=== PATIENT | female | born 1970 | race African-American/Black ===

== ENCOUNTER 2018-12-03 06:22 | Emergency (ER) | payer OTHER ==
[2018-12-03 06:34] VITALS: RESP 18; TEMP 98.1
[2018-12-03] MEDS ORDERED: HYDROmorphone 1 MG/ML 1 ML SYRINGE IVP STA (07:13)
[2018-12-03] MEDS ORDERED: SODIUM CHLORIDE 0.9% 500 ML 500 ML IV ONE ×2 (07:15→08:08)
[2018-12-03 07:33] LABS: Basophils % (A) 0 %; Eosinophils # (A) 0.3 k/uL (0-0.7); Eosinophils % (A) 2 %; HCT 35.8 % (34.0-46.0); HGB 12.4 gm/dL (11.4-16.0); Lymphocytes # (A) 3.1 k/uL (1.0-4.8); Lymphocytes % (A) 26 %; MCH 27.5 pg (25.0-35.0); MCHC 34.6 g/dL (31.0-37.0); MCV 79.5 fL (80.0-100.0); Mean Platelet Volume 7.4; Monocytes # (A) 0.5 k/uL (0-1.0); Monocytes % (A) 4 %; Neutrophils # (A) 7.9 k/uL (1.3-7.7); Neutrophils % (A) 65 %; Platelet Count 408 k/uL (150-450); RBC 4.51 m/uL (3.80-5.40); RDW 15.2 % (11.5-15.5); WBC 12.1 k/uL (3.8-10.6)
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
[2018-12-03] MEDS ORDERED: HEPARIN SODIUM,PORCINE 5,000 UNIT/ML 1 ML VIAL IV PRN (07:48)
[2018-12-03] MEDS ORDERED: HEPARIN SODIUM,PORCINE 5,000 UNIT/ML 1 ML VIAL IV ONE (07:48)
[2018-12-03 07:50] LABS: Calcium 9.1 mg/dL (8.4-10.2); Total Bilirubin 0.5 mg/dL (0.2-1.3); Total Protein 6.8 g/dL (6.3-8.2)
[2018-12-03 07:59] LABS: Potassium 4.3 mmol/L (3.5-5.1)
[2018-12-03] MEDS ORDERED: HEPARIN SOD,PORK IN 0.45% NACL 25,000 UNIT in 0.45% NACL 1 250ML.BAG IV SCH (08:00)
--- NOTE | 2018-12-03 08:04 | XR ---
EXAMINATION TYPE: XR ankle complete LT DATE OF EXAM: 12/03/2018 CLINICAL HISTORY: Left ankle pain after a fall TECHNIQUE: Frontal, lateral and oblique images of the left ankle are obtained. COMPARISON: None. FINDINGS: There is no acute fracture/dislocation evident in the left ankle. There is a very small p lantar heel spur. The ankle mortise appears within normal limits. The overlying soft tissue appears unremarkable. IMPRESSION: There is no acute fracture or dislocation in the left ankle.
[2018-12-03 08:10] LABS: INR 0.9 (<1.2); Partial Thromboplastin Time 25.7 sec (22.0-30.0); Prothrombin Time 10.2 sec (9.0-12.0)
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
--- NOTE | 2018-12-03 09:27 | CT ---
EXAMINATION TYPE: CT angio tho/abd W Run Off DATE OF EXAM: 12/03/2018 COMPARISON: HISTORY: Pain/pulselss left leg CT DLP: 1921.80 mGycm Automated exposure control for dose reduction was used. CONTRAST: CT scan of the abdomen pelvis is performed without and with IV Contrast, patient injected with 125 mL of Isovue 370. FINDINGS- Changes of thyroid nodule on the right noted. Lungs are clear. No pleural effusion. Subsegmental line ar changes left upper lobe most typical of atelectasis. Sternotomy wires are noted. Motion artifact limits evaluation the aortic root. Caliber of the visualized aorta is within normal l imits. Visualized portions of the pulmonary arteries enhance normally. Within the upper abdomen there is atherosclerotic change of the abdominal aorta. There appears to be ectasia measuring 2.9 cm of the infrarenal abdominal aortic aorta with eccentric atherosclerotic plaq ue. Suggestion of bilateral iliac stents with occlusion of the left common iliac artery stent. There is m inimal reconstitution of the deep femoral artery on the left. Superficial femoral artery is not seen to be definitively reconstituted. There is reconstitution of portions of the left popliteal artery an d tibioperoneal trunk. Anterior tibial artery appears to occlude proximally. Peroneal and posterior t ibial arteries are diminutive in size and seen only to the level of the mid calf. Diffuse mild athero sclerotic changes are seen within the vasculature. On the right popliteal artery appears to contain stent or graft appears to be patent. Posterior tibia l artery and tibioperoneal trunk and peroneal artery are patent but diminutive. Anterior tibial arter y occludes proximally. Peroneal and posterior tibial arteries are seen to the level of the distal melvina f with the posterior tibial artery seen filling calcaneal branches of the foot. Right common iliac st ent appears to be patent. There is multifocal diffuse atherosclerotic changes with no definite signif icant stenosis. Renal arteries are patent. Visualized portions of the celiac axis and SMA are patent. Bowel gas pattern nonspecific. Bladder has a normal appearance. There is soft tissue mass in right ab domen. This should be correlated with pelvic ultrasound to assess for ovarian mass and measures 5.2 c m. There is diverticulosis of the colon. Findings discussed with ER physician. IMPRESSION- 1. There is occlusion of the left common iliac stent with reconstitution at the level of the deep fem oral and popliteal arteries. There is subsequent lack of visualization of the trifurcation vessels be low the level of the left mid calf. Dedicated angiogram recommended. 2. 5 cm density in the pelvis extending the right could potentially be related to the ovary or uterus . Based on the phase of imaging is difficult to determine. Recommend ultrasound to exclude a pelvic m ass. 3. Vague enhancement of the spleen measuring 1.9 cm. This may be related to phase of imaging. Reduced enhancement could be seen with other etiologies including small infarction, space-occupying lesion o r contusion. No perisplenic fluid collection seen. Finding may be secondary to phase of imaging and s hould be correlated clinically and with ultrasound as warranted.
[2018-12-03] MEDS ORDERED: SODIUM CHLORIDE 0.9% 1,000 ML IV SCH (09:30)
[2018-12-03 09:48] VITALS: BP 169/85; PULSE 85
== END 2018-12-03 10:10 | disposition other institution (70) ==
LOC: EC 06:22
DX: I99.8 Other disorder of circulatory system (principal); I74.5 Embolism and thrombosis of iliac artery; E11.9 Type 2 diabetes mellitus without complications; I10 Essential (primary) hypertension; I25.2 Old myocardial infarction; I73.9 Peripheral vascular disease, unspecified; F17.200 Nicotine dependence, unspecified, uncomplicated; Z86.73 Personal history of transient ischemic attack (TIA), and cerebral infarction without residual deficits; Z95.810 Presence of automatic (implantable) cardiac defibrillator; Z95.1 Presence of aortocoronary bypass graft; Z95.818 Presence of other cardiac implants and grafts; Z95.820 Peripheral vascular angioplasty status with implants and grafts; Z79.82 Long term (current) use of aspirin; Z79.02 Long term (current) use of antithrombotics/antiplatelets; Z79.4 Long term (current) use of insulin; Z79.899 Other long term (current) drug therapy; Z88.1 Allergy status to other antibiotic agents; Z88.2 Allergy status to sulfonamides
CPT/HCPCS: 99291; 96365; 96375; 96376; 96361 ×2; 36415; 80053; 83605; 85025; 85610; 85730; 73610; 93971; 75635; 71275; J1644 ×2; J1170; Q9967

== ENCOUNTER 2019-04-21 10:08 | Inpatient (IN) | payer MEDICARE, OTHER ==
[2019-04-21] MEDS ORDERED: IPRATROPIUM-ALBUTEROL 3 ML NEB INHALATION PRN (11:26)
[2019-04-21] MEDS: PANTOPRAZOLE 40 MG/10 ML VIAL IVP SCH (11:27)
[2019-04-21] MEDS ORDERED: ONDANSETRON 4 MG/2 ML VIAL IVP PRN (11:28)
[2019-04-21] MEDS ORDERED: MELATONIN 3 MG TABLET PO PRN (11:28)
[2019-04-21] MEDS ORDERED: DOCUSATE 100 MG CAP PO PRN (11:28)
[2019-04-21] MEDS ORDERED: NALOXONE 0.4 MG/ML 1 ML VIAL IV PRN (11:28)
[2019-04-21] MEDS ORDERED: ACETAMINOPHEN TAB 325 MG TAB PO PRN (11:28)
[2019-04-21] MEDS ORDERED: IBUPROFEN 400 MG TAB PO PRN (11:28)
[2019-04-21] MEDS ORDERED: MAG HYDROX/AL HYDROX/SIMETH 30 ML CUP PO PRN (11:28)
[2019-04-21 12:06] LABS: Glucose,Whole Blood 319 mg/dL (75-99)
[2019-04-21] MEDS: IPRATROPIUM-ALBUTEROL 3 ML NEB INHALATION SCH ×3 (12:09→19:34)
[2019-04-21] MEDS: HEPARIN SODIUM,PORCINE 5,000 UNIT/ML 1 ML VIAL SQ SCH ×2 (12:20→21:26)
[2019-04-21] MEDS: predniSONE 20 MG TAB PO SCH (12:21)
[2019-04-21] MEDS: NICOTINE 21MG/24HR PATCH TRANSDERM SCH (12:21)
[2019-04-21] MEDS: SODIUM CHLORIDE 0.9% 500 ML 500 ML IV SCH (12:21)
[2019-04-21] MEDS: INSULIN ASPART (NovoLOG) 100 UNIT/ML VIAL SQ SCH ×4 (12:21→21:25)
[2019-04-21] MEDS: hydrALAZINE HCL 50 MG TAB PO SCH ×2 (15:09→21:23)
[2019-04-21] MEDS: ISOSORBIDE MONONITRATE ER 30 MG TAB.ER.24H PO SCH (15:09)
[2019-04-21] MEDS: CLOPIDOGREL 75 MG TAB PO SCH (15:09)
[2019-04-21] MEDS: HYDROcodone/APAP 5-325MG 1 EACH TAB PO PRN (15:10)
[2019-04-21 16:57] LABS: Glucose,Whole Blood 264 mg/dL (75-99)
[2019-04-21] MEDS: CARVEDILOL 12.5 MG TAB PO SCH (17:51)
[2019-04-21 20:46] LABS: Glucose,Whole Blood 277 mg/dL (75-99)
[2019-04-21] MEDS: ATORVASTATIN 10 MG TAB PO SCH ×2 (21:23→21:45)
[2019-04-21] MEDS: FUROSEMIDE 40 MG TAB PO SCH (21:23)
[2019-04-21] MEDS: PREGABALIN 75 MG CAP PO SCH (21:23)
[2019-04-21] MEDS: INSULIN DETEMIR (LEVEMIR) 100 UNIT/ML SYR SQ SCH (21:25)
[2019-04-21] MEDS: DOCUSATE 100 MG CAP PO SCH ×2 (21:26→21:32)
[2019-04-22 06:21] LABS: Glucose,Whole Blood 456 mg/dL (75-99)
[2019-04-22] MEDS: CARVEDILOL 12.5 MG TAB PO SCH ×2 (06:36→18:30)
[2019-04-22] MEDS: HYDROcodone/APAP 5-325MG 1 EACH TAB PO PRN ×3 (06:36→21:36)
[2019-04-22] MEDS: INSULIN ASPART (NovoLOG) 100 UNIT/ML VIAL SQ SCH ×7 (06:36→21:31)
[2019-04-22] MEDS: IPRATROPIUM-ALBUTEROL 3 ML NEB INHALATION SCH ×3 (07:07→15:19)
[2019-04-22 07:17] LABS: Anisocytosis Slight; Basophils % (A) 0 %; Eosinophils # (A) 0.1 k/uL (0-0.7); Eosinophils % (A) 1 %; Lymphocytes # (A) 1.2 k/uL (1.0-4.8); Lymphocytes % (A) 10 %; MCHC 32.3 g/dL (31.0-37.0); MCV 77.3 fL (80.0-100.0); Mean Platelet Volume 8.7; Microcytosis Slight; Monocytes % (A) 8 %; Neutrophils # (A) 10.4 k/uL (1.3-7.7); Neutrophils % (A) 81 %; Platelet Count 291 k/uL (150-450); RBC 4.01 m/uL (3.80-5.40); RDW 18.4 % (11.5-15.5); WBC 12.8 k/uL (3.8-10.6)
[2019-04-22 07:34] LABS: Calcium 8.3 mg/dL (8.4-10.2); Potassium 4.4 mmol/L (3.5-5.1)
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
[2019-04-22] MEDS ORDERED: FUROSEMIDE 10 MG/ML 4 ML VIAL IV STA (09:41)
[2019-04-22] MEDS: PANTOPRAZOLE 40 MG/10 ML VIAL IVP SCH (11:07)
[2019-04-22] MEDS: predniSONE 20 MG TAB PO SCH (11:07)
[2019-04-22] MEDS: ISOSORBIDE MONONITRATE ER 30 MG TAB.ER.24H PO SCH (11:08)
[2019-04-22] MEDS: CLOPIDOGREL 75 MG TAB PO SCH (11:08)
[2019-04-22] MEDS: FUROSEMIDE 40 MG TAB PO SCH ×2 (11:08→20:41)
[2019-04-22] MEDS: hydrALAZINE HCL 50 MG TAB PO SCH ×4 (11:08→20:42)
[2019-04-22] MEDS: HEPARIN SODIUM,PORCINE 5,000 UNIT/ML 1 ML VIAL SQ SCH ×2 (11:08→20:41)
[2019-04-22] MEDS: PREGABALIN 75 MG CAP PO SCH ×2 (11:08→20:42)
[2019-04-22] MEDS: NICOTINE 21MG/24HR PATCH TRANSDERM SCH (11:10)
[2019-04-22] MEDS: DOCUSATE 100 MG CAP PO SCH ×2 (11:11→20:41)
[2019-04-22] MEDS ORDERED: HYDROcodone/APAP 5-325MG 1 EACH TAB PO PRN (11:47)
[2019-04-22 11:58] LABS: Glucose,Whole Blood 291 mg/dL (75-99)
--- NOTE | 2019-04-22 12:05 | XR ---
EXAMINATION TYPE: XR chest 2V DATE OF EXAM: 04/22/2019 COMPARISON: 04/13/2019 HISTORY: Shortness of breath TECHNIQUE: Frontal and lateral views of the chest are obtained. FINDINGS: Scattered senescent parenchymal changes noted. Mild increased density right medial lung base may reflect developing infiltrate. Small right-sided ef fusion noted. Heart size is stable. Mediastinal structures are stable and grossly unremarkable. No evidence for hilar prominence. Degenerative changes dorsal spine. IMPRESSION: 1. Mild increased density right medial lung base may reflect developing infiltrate. Small right-sided effusion noted.
[2019-04-22] MEDS: SODIUM CHLORIDE 0.9% 500 ML 500 ML IV SCH (12:56)
[2019-04-22] MEDS: LOSARTAN 25 MG TAB PO SCH (12:57)
--- NOTE | 2019-04-22 17:09 | HP ---
HISTORY AND PHYSICAL Dr. Lin Segura is covering for Dr. Pavel Velasquez. DATE OF SERVICE: 04/22/2019 HISTORY OF PRESENT ILLNESS: Patient is a 49-year-old female who was just discharged home from the hospital yesterday. She said that she talked to her primary care physician, Dr. Velasquez with complaints of both of her feet being extremely painful as well as both legs. She said she could not go up the stairs at her friend's house without extreme pain. Patient also with lower extremity swelling. She was sent back to be admitted to the hospital by Dr. Velasquez. PAST MEDICAL HISTORY: Past medical history is significant for: 1. Asthma. 2. CVA, TIA. 3. Diabetes mellitus. 4. DVT. 5. Hyperlipidemia. 6. Hypertension. 7. Myocardial infarction. 8. Pneumonia. 9. Anemia. 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 11.Lupus. 12.Bilateral lower extremity claudication. PAST SURGICAL HISTORY: Past surgical history is significant for: 1. PTCA. 2. CABG. 3. Tubal ligation. 4. D&C. ALLERGIES: ALLERGIES INCLUDE: 1. KEFLEX. 2. ZOCOR. 3. BACTRIM. MEDICATIONS: Medications patient is on at home include: 1. Prednisone, tapering dose. 2. Hydralazine 50 mg p.o. t.i.d. 3. Lyrica 150 mg p.o. b.i.d. 4. Protonix 40 mg p.o. before breakfast. 5. Imdur 30 mg p.o. daily. 6. DuoNeb via nebulizer q.i.d. 7. Basaglar 25 units subcutaneously at bedtime. 8. NovoLog 15 units subcutaneously t.i.d. before meals. 9. [place] 5/325 one tablet p.o. b.i.d. p.r.n. 10.Lasix 40 mg p.o. b.i.d. 11.Plavix 75 mg p.o. daily. 12.Coreg 12.5 mg p.o. b.i.d. 13.Lipitor 10 mg p.o. daily. FAMILY HISTORY: Patient's mother with history of asthma and cancer. Father with history of an [place]. SOCIAL HISTORY: Patient does have a history of smoking 5-10 cigarettes a day. States she quit a few months ago. Denies any alcohol. Denies any illicit drug use. REVIEW OF SYSTEMS: CONSTITUTIONAL: Positive for chills. Negative for any fever. HEENT: Positive for headache. Negative for acute visual changes. Denies any sore throat or difficulty swallowing. Denies any difficulty hearing. RESPIRATORY: Positive for occasional shortness of breath, more on exertion. Denies any cough. CARDIOVASCULAR: Negative for any chest pain, although patient does state she has a history of angina. GI: Negative for abdominal pain, nausea, vomiting, diarrhea or constipation. : Negative for dysuria. Negative for hematuria. ENDOCRINE: Positive for diabetes mellitus. No thyroid history. NEUROLOGIC: Positive for history of CVAs, TIAs. Denies any history of seizures. MUSCULOSKELETAL: Positive for fibromyalgia. PSYCHIATRIC: Positive for anxiety and depression. PHYSICAL EXAMINATION: GENERAL: Pleasant female who is seen sitting up in chair, awake, alert, comfortable at this time. VITAL SIGNS: Temperature 98.5, heart rate 88, respiratory rate 17, blood pressure 177/79. Oxygen saturation is 97% on room air. HEENT. Head is normocephalic, atraumatic. Pupils equal, round, reactive to light. Ears and nose: No discharge is noted. Mouth with moist mucous membranes. Mallampati is class IV. NECK: Supple. Trachea is midline. No lymphadenopathy. HEART: S1 and S2 are heard. Not tachycardic. LUNGS: Sounds are diminished. No wheezes or rales. ABDOMEN: Soft. Bowel sounds are positive. EXTREMITIES: One plus edema bilaterally. Patient does have a wound on the lateral aspect of her left foot about the size of a dime. NEUROLOGIC: Patient is awake, alert, oriented. LABS: White count is 12.8, hemoglobin 10.0, hematocrit 31.0 with 291,000 platelets. Sodium is 132, potassium 4.4, chloride 103. CO2 is 25. Anion gap is 4. BUN is 58, creatinine 1.65. Glucose is 486, calcium 8.3. Troponins are elevated at 0.043. Chest x-ray shows mild increased density, right medial lung base; may reflect developing infiltrate. Small right-sided effusion noted. IMPRESSION: 1. Severe lower extremity pain and swelling. 2. Peripheral arterial disease. 3. History of coronary artery disease, status post coronary artery bypass grafting. 4. Hypertension. 5. Hyperlipidemia. 6. Anxiety. 7. Diabetes mellitus, uncontrolled. 8. Homeless. 9. Anemia. 10.Acute on chronic renal insufficiency. 11.Elevated troponins. 12.Wound on the left foot. PLAN: Home medications have been reordered. Will decrease oral prednisone. IV fluids at O. GI and DVT prophylaxis. Bronchodilators p.r.n. per patient request. Cardiology recommendations. We are covering for Dr. Pavel Velasquez. MMODL / ELSYN: [id number] / VIMAL
[2019-04-22 17:22] LABS: Glucose,Whole Blood 135 mg/dL (75-99)
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
[2019-04-22] MEDS: ATORVASTATIN 10 MG TAB PO SCH (20:43)
[2019-04-22 21:23] LABS: Glucose,Whole Blood 202 mg/dL (75-99)
[2019-04-22] MEDS: INSULIN DETEMIR (LEVEMIR) 100 UNIT/ML SYR SQ SCH (21:32)
[2019-04-23 06:50] LABS: Glucose,Whole Blood 247 mg/dL (75-99)
[2019-04-23] MEDS: CARVEDILOL 12.5 MG TAB PO SCH ×2 (06:51→17:22)
[2019-04-23] MEDS: INSULIN ASPART (NovoLOG) 100 UNIT/ML VIAL SQ SCH ×7 (07:27→21:25)
[2019-04-23] MEDS ORDERED: PANTOPRAZOLE 40 MG TABLET PO SCH (07:30)
[2019-04-23 08:02] LABS: Calcium 8.6 mg/dL (8.4-10.2); Potassium 4.8 mmol/L (3.5-5.1)
[2019-04-23] MEDS: NICOTINE 21MG/24HR PATCH TRANSDERM SCH (08:03)
[2019-04-23] MEDS: DOCUSATE 100 MG CAP PO SCH ×2 (08:03→21:24)
[2019-04-23] MEDS: hydrALAZINE HCL 50 MG TAB PO SCH ×3 (08:04→21:24)
[2019-04-23] MEDS: FUROSEMIDE 40 MG TAB PO SCH ×2 (08:04→21:24)
[2019-04-23] MEDS: CLOPIDOGREL 75 MG TAB PO SCH (08:04)
[2019-04-23] MEDS: ISOSORBIDE MONONITRATE ER 30 MG TAB.ER.24H PO SCH (08:04)
[2019-04-23] MEDS: LOSARTAN 25 MG TAB PO SCH (08:04)
[2019-04-23] MEDS: predniSONE 20 MG TAB PO SCH (08:04)
[2019-04-23] MEDS: PREGABALIN 75 MG CAP PO SCH ×2 (08:04→21:24)
[2019-04-23] MEDS: HEPARIN SODIUM,PORCINE 5,000 UNIT/ML 1 ML VIAL SQ SCH ×2 (08:17→21:24)
[2019-04-23 08:33] LABS: Anisocytosis Slight; Basophils % (A) 0 %; Eosinophils # (A) 0.2 k/uL (0-0.7); Eosinophils % (A) 1 %; HCT 31.3 % (34.0-46.0); HGB 10.4 gm/dL (11.4-16.0); Lymphocytes # (A) 1.7 k/uL (1.0-4.8); Lymphocytes % (A) 12 %; MCH 25.7 pg (25.0-35.0); MCHC 33.4 g/dL (31.0-37.0); MCV 77.1 fL (80.0-100.0); Microcytosis Slight; Monocytes # (A) 0.9 k/uL (0-1.0); Monocytes % (A) 6 %; Neutrophils # (A) 10.7 k/uL (1.3-7.7); Neutrophils % (A) 79 %; Platelet Count 282 k/uL (150-450); RBC 4.06 m/uL (3.80-5.40); RDW 18.4 % (11.5-15.5); WBC 13.5 k/uL (3.8-10.6)
[2019-04-23] MEDS: HYDROcodone/APAP 5-325MG 1 EACH TAB PO PRN ×2 (09:37→18:59)
[2019-04-23] MEDS: SODIUM CHLORIDE 0.9% 500 ML 500 ML IV SCH (10:23)
[2019-04-23 11:33] LABS: Glucose,Whole Blood 238 mg/dL (75-99)
[2019-04-23] MEDS ORDERED: LORazepam 2 MG/ML INJ IV STA (13:01)
--- NOTE | 2019-04-23 13:20 | P.PN ---
Subjective This is a pleasant 49-year-old -Welsh female past medical history significant for diabetes mellitus, hypertension, dyslipidemia, coronary artery disease status post bypass grafting, diastolic heart failure and in nonhealing ulcer on left foot. She is seen and examined resting comfortably laying flat in bed in no acute distress. She denies symptoms of chest discomfort, shortness of breath, dizziness or palpitations. She complains of lower extremity discomfort at rest. She has been seen also by Dr. Stevens and plans is for peripheral angiogram on Thursday. Laboratory data reviewed, WBC 13.5, hemoglobin 10.4, platelets 282, sodium 134, potassium 4.8, creatinine 1.8. Blood pressure 164/70 heart rate 84 afebrile maintaining oxygen saturation on room air. Currently maintained on atorvastatin 10 mg daily, carvedilol 25 mg twice a day, Plavix 75 mg daily, Lasix 40 mg twice a day, hydralazine 100 mg 3 times a day, Imdur 30 mg daily and losartan 25 mg daily. GENERAL: Well-appearing, well-nourished and in no acute distress. NECK: Supple without JVD or thyromegaly. LUNGS: Breath sounds clear to auscultation bilaterally. Respiration equal and unlabored. No wheezes, rales or rhonchi. HEART: Regular rate and rhythm without murmurs, rubs or gallops. S1 and S2 heard. EXTREMITIES: Normal range of motion, trace non-pitting bilateral lower extremity edema. No clubbing or cyanosis. Peripheral pulses faint, 1+. ASSESSMENT Bilateral lower extremity pain and swelling History of coronary artery disease status post bypass grafting Peripheral vascular disease Hypertension Dyslipidemia Diabetes mellitus, uncontrolled COPD Chronic renal failure Abnormal troponin, not consistent with acute coronary syndrome with no significant rise and fall pattern Anemia PLAN Continue current medical regimen. Procedure scheduled for Thursday with Dr. Stevens. Nurse Practitioner note has been reviewed, I agree with a documented findings and plan of care. Patient was seen and examined. Objective - Vital Signs Vital signs: Vital Signs Temp 98.0 F 04/23/19 07:32 Pulse 84 04/23/19 11:53 Resp 16 04/23/19 11:53 BP 164/70 04/23/19 11:53 Pulse Ox 95 04/23/19 11:53 Intake & Output 04/22/19 04/23/19 04/23/19 18:59 06:59 18:59 Intake Total 220 300 480 Balance 220 300 480 Weight 103.8 kg Intake: Intake, IV Titration 100 Amount Sodium Chloride 0.9% 500 100 ml 500 ml @ 20 mls/hr IV .Q24H [facility] Rx#:[id number] Oral 120 300 480 Other: Voiding Method Toilet # Voids 1 1 - Labs CBC & Chem 7: 04/23/19 06:51 04/23/19 06:51 Labs: Abnormal Lab Results - Last 24 Hours (Table) 04/22/19 04/22/19 04/23/19 Range/Units 17:02 21:05 06:47 WBC (3.8-10.6) k/uL Hgb (11.4-16.0) gm/dL Hct (34.0-46.0) % MCV (80.0-100.0) fL RDW (11.5-15.5) % Neutrophils # (1.3-7.7) k/uL Sodium (137-145) mmol/L BUN (7-17) mg/dL Creatinine (0.52-1.04) mg/dL Glucose (74-99) mg/dL POC Glucose (mg/dL) 135 H 202 H 247 H (75-99) mg/dL 04/23/19 04/23/19 04/23/19 Range/Units 06:51 06:51 11:30 WBC 13.5 H (3.8-10.6) k/uL Hgb 10.4 L (11.4-16.0) gm/dL Hct 31.3 L (34.0-46.0) % MCV 77.1 L (80.0-100.0) fL RDW 18.4 H (11.5-15.5) % Neutrophils # 10.7 H (1.3-7.7) k/uL Sodium 134 L (137-145) mmol/L BUN 60 H (7-17) mg/dL Creatinine 1.88 H (0.52-1.04) mg/dL Glucose 249 H (74-99) mg/dL POC Glucose (mg/dL) 238 H (75-99) mg/dL
[2019-04-23] MEDS ORDERED: LIDOCAINE 2% INJ 20 MG/ML (20 ML MDV) SQ ONE (13:22)
--- NOTE | 2019-04-23 15:13 | PN ---
PROGRESS NOTE DATE OF SERVICE: 04/23/2019. HISTORY: A 49-year-old female who continues to have chest pain and shortness of breath. She is scheduled for heart catheterization on Thursday versus peripheral angiogram due to nonhealing ulcer on the foot. Otherwise, she appears weak and fatigued, unable to take care of herself at home. She will need a rehab center. She has trace pitting edema. Lungs are clear. Heart regular rate and rhythm. Abdomen is soft. She is well developed, well nourished, black female. Bilateral lower extremity pain and swelling. ASSESSMENT: 1. Coronary artery disease, status post CABG. 2. Peripheral vascular disease. 3. Hypertension. 4. Dyslipidemia. 5. Diabetes mellitus. PLAN: Continue current treatment. Follow up in the next 24 to 48 hours. MMODL / IJN: [id number] /
[2019-04-23] MEDS: IPRATROPIUM-ALBUTEROL 3 ML NEB INHALATION SCH ×2 (15:38→20:54)
[2019-04-23 16:29] VITALS: BMI 34.7
[2019-04-23 17:08] LABS: Glucose,Whole Blood 264 mg/dL (75-99)
[2019-04-23] MEDS: CLINDAMYCIN 600 MG in DEXTROSE 5% IN WATER 50 ML IVPB SCH ×4 (17:26→22:39)
--- NOTE | 2019-04-23 18:26 | PCN ---
PROCEDURE NOTE PREOP DIAGNOSIS: Chronic wound, left foot dorsum aspect base of the 5th toe. PROCEDURE PERFORMED: Debridement of the wound down to subcutaneous tissue and deep culture. DESCRIPTION OF PROCEDURE: This patient has history of trauma to the left foot in November. She also had some history of vascular sheath. The patient had some intervention done in the past. We asked for the record. She has been complaining of pain and swelling of the dorsal aspect of the left foot. On examination, the left foot has a chronic wound. Measurement is 1 x 1 cm with some drainage of pus and there is marked tenderness noted on the dorsal aspect of the foot. Left foot was prepped and drapes applied in usual sterile manner. 1% lidocaine was infiltrated. Using a sharp knife, we excised the ulcer down to subcutaneous tissue. Necrotic tissue was removed and we took the deep culture tissue and the swab and wound was irrigated with saline. No active bleeding was noted. Aquacel silver rope was placed to the wound. Dressing applied. PLAN: The patient will need to change dressing daily, irrigated with saline and Aquacel silver rope. We will put her on antibiotic Unasyn. We will wait until we get culture report. Follow with you. The patient tolerated the procedure well. MMODL / IJN: [id number] /
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
[2019-04-23 21:12] LABS: Glucose,Whole Blood 273 mg/dL (75-99)
[2019-04-23] MEDS: ATORVASTATIN 10 MG TAB PO SCH ×2 (21:24→21:26)
[2019-04-23] MEDS: INSULIN DETEMIR (LEVEMIR) 100 UNIT/ML SYR SQ SCH (21:25)
[2019-04-24] MEDS: HYDROcodone/APAP 5-325MG 1 EACH TAB PO PRN ×3 (01:40→21:02)
[2019-04-24 04:47] LABS: Glucose,Whole Blood 384 mg/dL (75-99)
[2019-04-24] MEDS: CLINDAMYCIN 600 MG in DEXTROSE 5% IN WATER 50 ML IVPB SCH ×4 (06:25→11:51)
[2019-04-24] MEDS: CARVEDILOL 12.5 MG TAB PO SCH ×2 (06:25→17:45)
[2019-04-24] MEDS: PANTOPRAZOLE 40 MG TABLET PO SCH (06:25)
[2019-04-24 06:36] LABS: Glucose,Whole Blood 323 mg/dL (75-99)
[2019-04-24 07:07] LABS: Anisocytosis Slight; Basophils % (A) 0 %; Eosinophils % (A) 0 %; HCT 33.9 % (34.0-46.0); HGB 10.9 gm/dL (11.4-16.0); Lymphocytes # (A) 1.9 k/uL (1.0-4.8); Lymphocytes % (A) 15 %; MCH 25.3 pg (25.0-35.0); MCHC 32.2 g/dL (31.0-37.0); MCV 78.7 fL (80.0-100.0); Microcytosis Slight; Monocytes # (A) 0.9 k/uL (0-1.0); Monocytes % (A) 7 %; Neutrophils # (A) 9.6 k/uL (1.3-7.7); Neutrophils % (A) 76 %; Platelet Count 309 k/uL (150-450); RDW 18.5 % (11.5-15.5); WBC 12.6 k/uL (3.8-10.6)
[2019-04-24 07:19] LABS: Albumin 2.7 g/dL (3.5-5.0); Calcium 8.7 mg/dL (8.4-10.2); Potassium 5.2 mmol/L (3.5-5.1); Total Bilirubin 0.3 mg/dL (0.2-1.3); Total Protein 5.5 g/dL (6.3-8.2)
[2019-04-24] MEDS: IPRATROPIUM-ALBUTEROL 3 ML NEB INHALATION SCH ×4 (07:34→19:53)
[2019-04-24] MEDS: DOCUSATE 100 MG CAP PO SCH ×2 (08:11→19:31)
[2019-04-24] MEDS: NICOTINE 21MG/24HR PATCH TRANSDERM SCH (08:11)
[2019-04-24] MEDS: FUROSEMIDE 40 MG TAB PO SCH (08:12)
[2019-04-24] MEDS: hydrALAZINE HCL 50 MG TAB PO SCH ×3 (08:12→19:31)
[2019-04-24] MEDS: ISOSORBIDE MONONITRATE ER 30 MG TAB.ER.24H PO SCH (08:12)
[2019-04-24] MEDS: predniSONE 20 MG TAB PO SCH (08:12)
[2019-04-24] MEDS: PREGABALIN 75 MG CAP PO SCH ×2 (08:12→19:31)
[2019-04-24] MEDS: CLOPIDOGREL 75 MG TAB PO SCH (08:12)
[2019-04-24] MEDS: LOSARTAN 25 MG TAB PO SCH (08:12)
[2019-04-24] MEDS: HEPARIN SODIUM,PORCINE 5,000 UNIT/ML 1 ML VIAL SQ SCH ×2 (08:13→19:31)
[2019-04-24] MEDS: INSULIN ASPART (NovoLOG) 100 UNIT/ML VIAL SQ SCH ×7 (08:13→21:01)
[2019-04-24 11:47] LABS: Glucose,Whole Blood 308 mg/dL (75-99)
[2019-04-24] MEDS: SODIUM CHLORIDE 0.9% 500 ML 500 ML IV SCH ×2 (11:51→21:05)
--- NOTE | 2019-04-24 11:59 | P.PN ---
Subjective Progress Note Date: 04/24/19 This is a pleasant 49-year-old -[place] female past medical history significant for diabetes mellitus, hypertension, dyslipidemia, coronary artery disease status post bypass grafting, diastolic heart failure and in nonhealing ulcer on left foot. She is seen and examined resting comfortably laying flat in bed in no acute distress. She denies symptoms of chest discomfort, shortness of breath, dizziness or palpitations. She complains of lower extremity discomfort at rest. She has been seen also by Dr. Stevens and plans is for peripheral angiogram on Thursday. Upon examination today, patient is hemodynamically stable. Objective - Vital Signs Vital signs: Vital Signs Temp 97.1 F L 04/24/19 07:25 Pulse 76 04/24/19 11:54 Resp 16 04/24/19 11:54 BP 132/74 04/24/19 11:54 Pulse Ox 100 04/24/19 11:54 Intake & Output 04/23/19 04/24/19 04/24/19 18:59 06:59 18:59 Intake Total 970 300 290 Balance 970 300 290 Weight 103.8 kg 106 kg Intake: IV 10 Invasive Line 2 10 Intake, IV Titration 50 Amount Clindamycin 600 mg In 50 Dextrose 5% in Water 50 ml @ 50 mls/hr IVPB Q6HR [facility] Rx#:[id number] Oral 960 300 240 Other: Voiding Method Toilet # Voids 1 1 1 - Exam PHYSICAL EXAMINATION: GENERAL: 49-year-old -[place] female in no acute distress at the time of my examination HEENT: Head is atraumatic, normocephalic. Pupils equal, round. Sclera anicteric. Conjunctiva are clear. Mucous membranes of the mouth are moist. Neck is supple. There is no elevated jugular venous pressure no carotid bruit is heard. HEART EXAMINATION: Heart S1, S2 normal. No murmur or gallop heard. CHEST EXAMINATION: Lungs reveal diminished air entry to bilateral bases. ABDOMEN: Soft, nontender. Bowel sounds are heard. No organomegaly noted. EXTREMITIES: 1+ peripheral pulse to the left lower extremity with a lateral ulceration noted to the left lower extremity. 1+ peripheral pulses to the right lower extremity. One plus bilateral peripheral edema NEUROLOGIC patient is awake, alert and oriented 3 . - Labs CBC & Chem 7: 04/24/19 06:39 04/24/19 06:39 Labs: Abnormal Lab Results - Last 24 Hours (Table) 04/23/19 04/23/19 04/24/19 Range/Units 16:51 20:59 04:34 WBC (3.8-10.6) k/uL Hgb (11.4-16.0) gm/dL Hct (34.0-46.0) % MCV (80.0-100.0) fL RDW (11.5-15.5) % Neutrophils # (1.3-7.7) k/uL Sodium (137-145) mmol/L Potassium (3.5-5.1) mmol/L Carbon Dioxide (22-30) mmol/L BUN (7-17) mg/dL Creatinine (0.52-1.04) mg/dL Glucose (74-99) mg/dL POC Glucose (mg/dL) 264 H 273 H 384 H (75-99) mg/dL Alkaline Phosphatase (38-126) U/L Total Protein (6.3-8.2) g/dL Albumin (3.5-5.0) g/dL 04/24/19 04/24/19 04/24/19 Range/Units 06:33 06:39 06:39 WBC 12.6 H (3.8-10.6) k/uL Hgb 10.9 L (11.4-16.0) gm/dL Hct 33.9 L (34.0-46.0) % MCV 78.7 L (80.0-100.0) fL RDW 18.5 H (11.5-15.5) % Neutrophils # 9.6 H (1.3-7.7) k/uL Sodium 134 L (137-145) mmol/L Potassium 5.2 H (3.5-5.1) mmol/L Carbon Dioxide 20 L (22-30) mmol/L BUN 76 H (7-17) mg/dL Creatinine 1.93 H (0.52-1.04) mg/dL Glucose 322 H (74-99) mg/dL POC Glucose (mg/dL) 323 H (75-99) mg/dL Alkaline Phosphatase 193 H (38-126) U/L Total Protein 5.5 L (6.3-8.2) g/dL Albumin 2.7 L (3.5-5.0) g/dL 04/24/19 Range/Units 11:45 WBC (3.8-10.6) k/uL Hgb (11.4-16.0) gm/dL Hct (34.0-46.0) % MCV (80.0-100.0) fL RDW (11.5-15.5) % Neutrophils # (1.3-7.7) k/uL Sodium (137-145) mmol/L Potassium (3.5-5.1) mmol/L Carbon Dioxide (22-30) mmol/L BUN (7-17) mg/dL Creatinine (0.52-1.04) mg/dL Glucose (74-99) mg/dL POC Glucose (mg/dL) 308 H (75-99) mg/dL Alkaline Phosphatase (38-126) U/L Total Protein (6.3-8.2) g/dL Albumin (3.5-5.0) g/dL Microbiology - Last 24 Hours (Table) 04/23/19 13:20 Gram Stain - Preliminary Foot - Left Wound Culture - Preliminary 04/23/19 13:20 Gram Stain - Preliminary Foot - Left Tissue Culture - Preliminary 04/23/19 13:20 Anaerobic Culture - Preliminary Foot - Left Assessment and Plan Plan: Assessment and plan #1 severe bilateral leg discomfort and swelling #2 history of coronary artery disease with prior bypass surgery #3 PAD #4 hypertension #5 hyperlipidemia #6 diabetes, uncontrolled #7 COPD #8 acute on chronic renal insufficiency #9 abnormal troponin, not consistent with acute coronary syndrome with no significant rise and fall pattern. #10 anemia Plan Patient is scheduled for a peripheral angiogram with Dr. Perry for tomorrow. IV fluids increased to 50 mL per hour, we will hold the Lasix at this time. We will continue to follow. Arterial duplex study was performed on the of this month which showed moderate bilateral fem-pop disease with possible iliac component.
[2019-04-24 16:42] LABS: Glucose,Whole Blood 369 mg/dL (75-99)
[2019-04-24] MEDS: CLINDAMYCIN 150 MG CAP PO SCH ×2 (17:45→23:06)
[2019-04-24] MEDS: ATORVASTATIN 10 MG TAB PO SCH (19:24)
[2019-04-24 20:47] LABS: Glucose,Whole Blood 284 mg/dL (75-99)
[2019-04-24] MEDS: INSULIN DETEMIR (LEVEMIR) 100 UNIT/ML SYR SQ SCH (21:01)
--- NOTE | 2019-04-24 23:54 | PN ---
PROGRESS NOTE SUBJECTIVE: 49-year-old white female with uncontrolled diabetes mellitus, anxiety. She has to have an angiogram of the left leg tomorrow due to left foot pain and claudication that is worsening. Cardiology is stabilized. CHF, diabetes mellitus is improved. Depression is improved. She will need rehab placement after her angiogram tomorrow on her foot. Lungs are clear. Cardiovascular S1-S2. Hematologic negative Homans. Continue current treatment as mentioned above. MMODL / IJN: [id number] /
[2019-04-25] MEDS: CLINDAMYCIN 150 MG CAP PO SCH ×2 (06:31→11:44)
[2019-04-25] MEDS: HEPARIN SODIUM,PORCINE 5,000 UNIT/ML 1 ML VIAL SQ SCH ×2 (06:32→20:31)
[2019-04-25] MEDS: PANTOPRAZOLE 40 MG TABLET PO SCH (06:32)
[2019-04-25] MEDS: CARVEDILOL 12.5 MG TAB PO SCH ×2 (06:32→17:16)
[2019-04-25] MEDS: hydrALAZINE HCL 50 MG TAB PO SCH ×3 (06:32→20:32)
[2019-04-25] MEDS: DOCUSATE 100 MG CAP PO SCH ×2 (06:32→20:31)
[2019-04-25] MEDS: ISOSORBIDE MONONITRATE ER 30 MG TAB.ER.24H PO SCH (06:32)
[2019-04-25] MEDS: LOSARTAN 25 MG TAB PO SCH (06:32)
[2019-04-25] MEDS: CLOPIDOGREL 75 MG TAB PO SCH (06:32)
[2019-04-25] MEDS: NICOTINE 21MG/24HR PATCH TRANSDERM SCH (06:33)
[2019-04-25] MEDS: PREGABALIN 75 MG CAP PO SCH ×2 (06:33→20:33)
[2019-04-25] MEDS: predniSONE 20 MG TAB PO SCH (06:33)
[2019-04-25] MEDS: SODIUM CHLORIDE 0.9% 500 ML 500 ML IV SCH ×3 (06:35→23:29)
[2019-04-25 06:38] LABS: Glucose,Whole Blood 234 mg/dL (75-99)
[2019-04-25] MEDS: INSULIN ASPART (NovoLOG) 100 UNIT/ML VIAL SQ SCH ×7 (06:39→21:30)
[2019-04-25] MEDS: HYDROcodone/APAP 5-325MG 1 EACH TAB PO PRN (06:42)
[2019-04-25] MEDS ORDERED: ASPIRIN 325 MG TAB PO STA (08:51)
[2019-04-25 09:44] LABS: Glucose,Whole Blood 254 mg/dL (75-99)
[2019-04-25] MEDS: IPRATROPIUM-ALBUTEROL 3 ML NEB INHALATION SCH ×4 (09:50→21:15)
[2019-04-25 10:44] LABS: Anisocytosis Slight; Basophils % (A) 0 %; Eosinophils # (A) 0.2 k/uL (0-0.7); Eosinophils % (A) 1 %; HCT 28.7 % (34.0-46.0); Lymphocytes # (A) 3.6 k/uL (1.0-4.8); Lymphocytes % (A) 25 %; MCH 24.9 pg (25.0-35.0); MCHC 32.1 g/dL (31.0-37.0); MCV 77.5 fL (80.0-100.0); Mean Platelet Volume 8.5; Microcytosis Slight; Monocytes # (A) 0.9 k/uL (0-1.0); Monocytes % (A) 6 %; Neutrophils # (A) 9.7 k/uL (1.3-7.7); Neutrophils % (A) 66 %; Platelet Count 266 k/uL (150-450); RDW 18.7 % (11.5-15.5); WBC 14.7 k/uL (3.8-10.6)
[2019-04-25 11:00] LABS: HGB 9.2 gm/dL (11.4-16.0)
[2019-04-25 11:01] LABS: Albumin 2.4 g/dL (3.5-5.0); Calcium 8.2 mg/dL (8.4-10.2); Potassium 4.9 mmol/L (3.5-5.1); Total Bilirubin 0.2 mg/dL (0.2-1.3); Total Protein 4.8 g/dL (6.3-8.2)
[2019-04-25 11:40] LABS: Glucose,Whole Blood 255 mg/dL (75-99)
--- NOTE | 2019-04-25 14:52 | P.PN ---
Subjective Progress Note Date: 04/25/19 This is a pleasant 49-year-old -[place] female past medical history significant for diabetes mellitus, hypertension, dyslipidemia, coronary artery disease status post bypass grafting, diastolic heart failure and in nonhealing ulcer on left foot. She is seen and examined resting comfortably laying flat in bed in no acute distress. She denies symptoms of chest discomfort, shortness of breath, dizziness or palpitations. She complains of lower extremity discomfort at rest. She has been seen also by Dr. Stevens and plans is for peripheral angiogram on Thursday. Upon examination today, patient is hemodynamically stable. 04/25/2019 Patient was seen and examined this morning, she was initially scheduled to undergo an peripheral angiogram with Dr. Perry today which was canceled . Patient was seen today by Dr. Saenz who had a discussion with Dr. Perry feeling that the ulcerated area was healing. Blood pressure this morning 137/60 with a heart rate in the 70s 100% on room air. White blood cell count 14.7, hemoglobin 9.2, platelet count 266. Sodium 137, potassium 4.9, BUN 80 and creatinine 2.0. Cozaar has been discontinued today. We will also give the patient IV fluids today. Objective - Vital Signs Vital signs: Vital Signs Temp 98.3 F 04/25/19 08:43 Pulse 76 04/25/19 11:36 Resp 16 04/25/19 11:36 BP 137/63 04/25/19 11:36 Pulse Ox 100 04/25/19 11:36 Intake & Output 04/24/19 04/25/19 04/25/19 18:59 06:59 18:59 Intake Total 1360 210 Balance 1360 210 Weight 110 kg Intake: IV 10 Invasive Line 3 10 Intake, IV Titration 400 200 Amount Clindamycin 600 mg In 50 Dextrose 5% in Water 50 ml @ 50 mls/hr IVPB Q6HR [facility] Rx#:[id number] Sodium Chloride 0.9% 500 350 200 ml 500 ml @ 50 mls/hr IV .Q10H [facility] Rx#:[id number] Oral 960 Other: Voiding Method Toilet # Voids 1 1 1 - Exam PHYSICAL EXAMINATION: GENERAL: 49-year-old -[place] female in no acute distress at the time of my examination HEENT: Head is atraumatic, normocephalic. Pupils equal, round. Sclera anicteric. Conjunctiva are clear. Mucous membranes of the mouth are moist. Neck is supple. There is no elevated jugular venous pressure no carotid bruit is heard. HEART EXAMINATION: Heart S1, S2 normal. No murmur or gallop heard. CHEST EXAMINATION: Lungs reveal diminished air entry to bilateral bases. ABDOMEN: Soft, nontender. Bowel sounds are heard. No organomegaly noted. EXTREMITIES: 1+ peripheral pulse to the left lower extremity with a lateral ulceration noted to the left lower extremity. 1+ peripheral pulses to the right lower extremity. One plus bilateral peripheral edema NEUROLOGIC patient is awake, alert and oriented 3 . - Labs CBC & Chem 7: 04/25/19 10:25 04/25/19 10:25 Labs: Abnormal Lab Results - Last 24 Hours (Table) 04/24/19 04/24/19 04/25/19 Range/Units 16:40 20:46 06:37 WBC (3.8-10.6) k/uL RBC (3.80-5.40) m/uL Hgb (11.4-16.0) gm/dL Hct (34.0-46.0) % MCV (80.0-100.0) fL MCH (25.0-35.0) pg RDW (11.5-15.5) % Neutrophils # (1.3-7.7) k/uL Chloride (98-107) mmol/L BUN (7-17) mg/dL Creatinine (0.52-1.04) mg/dL Glucose (74-99) mg/dL POC Glucose (mg/dL) 369 H 284 H 234 H (75-99) mg/dL Calcium (8.4-10.2) mg/dL AST (14-36) U/L Alkaline Phosphatase (38-126) U/L Total Protein (6.3-8.2) g/dL Albumin (3.5-5.0) g/dL 04/25/19 04/25/19 04/25/19 Range/Units 09:41 10:25 10:25 WBC 14.7 H (3.8-10.6) k/uL RBC 3.70 L (3.80-5.40) m/uL Hgb 9.2 L D (11.4-16.0) gm/dL Hct 28.7 L (34.0-46.0) % MCV 77.5 L (80.0-100.0) fL MCH 24.9 L (25.0-35.0) pg RDW 18.7 H (11.5-15.5) % Neutrophils # 9.7 H (1.3-7.7) k/uL Chloride 110 H (98-107) mmol/L BUN 80 H (7-17) mg/dL Creatinine 2.04 H (0.52-1.04) mg/dL Glucose 243 H (74-99) mg/dL POC Glucose (mg/dL) 254 H (75-99) mg/dL Calcium 8.2 L (8.4-10.2) mg/dL AST 13 L (14-36) U/L Alkaline Phosphatase 155 H (38-126) U/L Total Protein 4.8 L (6.3-8.2) g/dL Albumin 2.4 L (3.5-5.0) g/dL 04/25/19 Range/Units 11:37 WBC (3.8-10.6) k/uL RBC (3.80-5.40) m/uL Hgb (11.4-16.0) gm/dL Hct (34.0-46.0) % MCV (80.0-100.0) fL MCH (25.0-35.0) pg RDW (11.5-15.5) % Neutrophils # (1.3-7.7) k/uL Chloride (98-107) mmol/L BUN (7-17) mg/dL Creatinine (0.52-1.04) mg/dL Glucose (74-99) mg/dL POC Glucose (mg/dL) 255 H (75-99) mg/dL Calcium (8.4-10.2) mg/dL AST (14-36) U/L Alkaline Phosphatase (38-126) U/L Total Protein (6.3-8.2) g/dL Albumin (3.5-5.0) g/dL Microbiology - Last 24 Hours (Table) 04/23/19 13:20 Gram Stain - Preliminary Foot - Left Wound Culture - Preliminary Gram Neg Bacilli 04/23/19 13:20 Gram Stain - Preliminary Foot - Left Tissue Culture - Preliminary Gram Neg Bacilli Assessment and Plan Plan: Assessment and plan #1 severe bilateral leg discomfort and swelling #2 history of coronary artery disease with prior bypass surgery #3 PAD #4 hypertension #5 hyperlipidemia #6 diabetes, uncontrolled #7 COPD #8 acute on chronic renal insufficiency #9 abnormal troponin, not consistent with acute coronary syndrome with no significant rise and fall pattern. #10 anemia Plan Peripheral angiogram was canceled for today. We will discontinue the Cozaar, increase IV fluids, check labs in the morning. DNP note has been reviewed, I agree with a documented findings and plan of care. Patient was seen and examined.
--- NOTE | 2019-04-25 14:56 | P.PN ---
Subjective Progress Note Date: 04/25/19 Patient is scheduled for peripheral angiogram today. Maintain IV fluid hydration. Lasix currently on hold. Blood sugars uncontrolled; staff reports noncompliant with diet, patient has been ordering multiple pizzas from [employer]. Maintain IV antibiotics as per infectious disease. Wound cultures re porting gram-negative bacilli. Afebrile, WBC 14.7. Creatinine 2.04. Objective - Vital Signs Vital signs: Vital Signs Temp 98.3 F 04/25/19 07:25 Pulse 83 04/25/19 07:25 Resp 16 04/25/19 07:25 BP 170/77 04/25/19 07:25 Pulse Ox 97 04/25/19 07:25 Intake & Output 04/24/19 04/25/19 04/25/19 18:59 06:59 18:59 Intake Total 1360 Balance 1360 Weight 110 kg Intake: Intake, IV Titration 400 Amount Clindamycin 600 mg In 50 Dextrose 5% in Water 50 ml @ 50 mls/hr IVPB Q6HR [facility] Rx#:[id number] Sodium Chloride 0.9% 500 350 ml 500 ml @ 50 mls/hr IV .Q10H [facility] Rx#:[id number] Oral 960 Other: Voiding Method Toilet # Voids 1 1 - Exam PHYSICAL EXAM: VITAL SIGNS: As above GENERAL: Sitting up in bed, no acute distress HEENT: Conjunctivae normal. eyes normal. NECK: No JVD. No thyroid enlargement. No LNs CARDIOVASCULAR: S1, S2 regular.. No murmur, no rub or gallop RESPIRATION: Breath sounds diminished in the bases. No rhonchi or crackles. No expiratory wheezing .No bronchial breathing. ABDOMEN: Soft, nontender . No guarding. no masses palpable. Bowel sounds heard. LEGS: Positive edema. Left lower extremity dressing clean dry and intact. Doppler pulse PSYCHIATRY: Alert and oriented -3, mood and affect normal. NERVOUS SYSTEM: Cranial N 2-12 grossly normal. Moves all 4 limbs. No focal deficits. Strength and sensation grossly intact.. Microbiology 04/23/19 13:20 Foot - Left Gram Stain - Preliminary 04/23/19 13:20 Foot - Left Wound Culture - Preliminary Gram Neg Bacilli 04/23/19 13:20 Foot - Left Gram Stain - Preliminary 04/23/19 13:20 Foot - Left Tissue Culture - Preliminary Gram Neg Bacilli 04/23/19 13:20 Foot - Left Anaerobic Culture - Preliminary - Labs CBC & Chem 7: 04/25/19 10:25 04/25/19 10:25 Labs: Abnormal Lab Results - Last 24 Hours (Table) 04/24/19 04/24/19 04/24/19 Range/Units 11:45 16:40 20:46 POC Glucose (mg/dL) 308 H 369 H 284 H (75-99) mg/dL 04/25/19 Range/Units 06:37 POC Glucose (mg/dL) 234 H (75-99) mg/dL Microbiology - Last 24 Hours (Table) 04/23/19 13:20 Gram Stain - Preliminary Foot - Left Wound Culture - Preliminary Gram Neg Bacilli 04/23/19 13:20 Gram Stain - Preliminary Foot - Left Tissue Culture - Preliminary Gram Neg Bacilli Assessment and Plan Assessment: -1 severe bilateral leg discomfort and swelling -2 history of coronary artery disease with prior bypass surgery -3 PAD -4 hypertension -5 hyperlipidemia -6 diabetes, uncontrolled -7 COPD -8 acute on chronic renal insufficiency -9 abnormal troponin, not consistent with acute coronary syndrome with no significant rise and fall pattern. -10 anemia -11 Homeless Plan: Continue on current medication regime ,monitoring and symptomatic treatment. IV antibiotic therapy as per infectious disease; potential PICC line/rehab at discharge. Wound care as per vascular surgery. Peripheral angiogram pending. Discharge planning in progress.Lantus dose increased with close monitoring of Accu-Cheks.further recommendations to follow The impression and plan of care has been dictated as directed. : I performed a history and examination of this patient, discussed the same with the dictator. I agree with the dictator's note ,documented as a scribe. Any additional findings or plans will be noted.
[2019-04-25 17:03] LABS: Glucose,Whole Blood 424 mg/dL (75-99)
[2019-04-25] MEDS ORDERED: CLINDAMYCIN 600 MG in DEXTROSE 5% IN WATER 50 ML IVPB SCH ×2 (18:00)
--- NOTE | 2019-04-25 20:19 | PCN ---
PROCEDURE NOTE This is a 49-year-old female she came with infected left foot wound with drainage of pus. The patient went for debridement and we took the culture. Culture came back gram- negative bacilli. The patient is on clindamycin. SHE IS ALLERGIC TO KEFLEX. We are waiting for culture report to be done. Patient was scheduled to have a angiogram. We will hold angiogram at this point. The patient has a decent anterior tibial and dorsalis pedis pulses on the foot by the Doppler. Femorals are 1+. The patient had intervention at [facility] last week with a iliac stent occlusion. The patient is stable from a vascular point of view. She has a wound which will be changed with Aquacel silver and we will wait for culture and sensitivity, then patient will go home on IV antibiotic and home care. We will get Infectious Disease involved in this case. JAS / ELSYN: [id number] /
[2019-04-25] MEDS: ATORVASTATIN 10 MG TAB PO SCH (20:31)
[2019-04-25 21:05] LABS: Glucose,Whole Blood 266 mg/dL (75-99)
[2019-04-25] MEDS: INSULIN DETEMIR (LEVEMIR) 100 UNIT/ML SYR SQ SCH (21:31)
[2019-04-25] MEDS ORDERED: AZTREONAM 2 GM in SODIUM CHLORIDE 0.9% 100 ML IVPB ONE (22:30)
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
[2019-04-25] MEDS: ALPRAZolam 0.25 MG TAB PO PRN (23:32)
[2019-04-26] MEDS: SODIUM CHLORIDE 0.9% 500 ML 500 ML IV SCH ×4 (04:52→17:39)
[2019-04-26 07:00] LABS: Glucose,Whole Blood 108 mg/dL (75-99)
[2019-04-26] MEDS: hydrALAZINE HCL 50 MG TAB PO SCH ×3 (07:51→21:54)
[2019-04-26] MEDS: ISOSORBIDE MONONITRATE ER 30 MG TAB.ER.24H PO SCH (07:51)
[2019-04-26] MEDS: HEPARIN SODIUM,PORCINE 5,000 UNIT/ML 1 ML VIAL SQ SCH ×2 (07:51→21:54)
[2019-04-26] MEDS: predniSONE 20 MG TAB PO SCH (07:51)
[2019-04-26] MEDS: PREGABALIN 75 MG CAP PO SCH ×2 (07:51→21:54)
[2019-04-26] MEDS: CARVEDILOL 12.5 MG TAB PO SCH ×2 (07:51→16:53)
[2019-04-26] MEDS: INSULIN ASPART (NovoLOG) 100 UNIT/ML VIAL SQ SCH ×7 (07:52→21:54)
[2019-04-26] MEDS: DOCUSATE 100 MG CAP PO SCH ×2 (07:52→21:54)
[2019-04-26] MEDS: PANTOPRAZOLE 40 MG TABLET PO SCH (07:52)
[2019-04-26] MEDS: CLOPIDOGREL 75 MG TAB PO SCH (07:52)
[2019-04-26] MEDS: HYDROcodone/APAP 5-325MG 1 EACH TAB PO PRN ×2 (07:54→16:53)
[2019-04-26] MEDS: NICOTINE 21MG/24HR PATCH TRANSDERM SCH (08:12)
[2019-04-26] MEDS: IPRATROPIUM-ALBUTEROL 3 ML NEB INHALATION SCH ×4 (08:21→20:36)
--- NOTE | 2019-04-26 08:36 | XR ---
EXAMINATION TYPE: XR foot complete LT DATE OF EXAM: 04/26/2019 CLINICAL HISTORY: Wound at the base of the fifth toe TECHNIQUE: Frontal, lateral, and oblique images of the left foot are obtained. COMPARISON: 04/13/2019 FINDINGS: Subcutaneous emphysema within the soft tissues overlying the dorsum of the fifth metatarsal phalangeal joint. No radiopaque foreign body is seen. Mild soft tissue swelling is associated. Very small osseous erosion is evident when compared to the prior of 04/13/2019. There is no acute fracture/ dislocation evident in the left foot. Mild joint space narrowing of the distal interphalangeal joints and small plantar spur are again present the previously seen 1 mm density near the base of the fifth metatarsal is unchanged and may be from prior fracture. IMPRESSION: New small cortical erosion of the fifth metatarsal with overlying soft tissue swelling an d subcutaneous emphysema concerning for osteomyelitis. Three-phase bone scan could be considered.
[2019-04-26] MEDS: ALPRAZolam 0.25 MG TAB PO PRN (09:13)
[2019-04-26] MEDS ORDERED: AZTREONAM 1 GM in SODIUM CHLORIDE 0.9% 50 ML IVPB SCH (11:00)
[2019-04-26 11:27] LABS: Glucose,Whole Blood 88 mg/dL (75-99)
--- NOTE | 2019-04-26 12:34 | P.DS ---
Providers Date of admission: 04/21/19 10:28 Expected date of discharge: 04/26/19 Attending physician: Pavel Velasquez Consults: 04/21/19 18:12 Consult Physician Urgent Consulting Provider: Eugene Stevens Consult Reason/Comments: elevated troponin Do you want consulting provider notified?: Yes 04/22/19 09:44 Consult Physician Urgent Consulting Provider: Eugene Stevens Consult Reason/Comments: left foot ulcer Do you want consulting provider notified?: Already Contacted Consult Physician Urgent Consulting Provider: Rogelio Andrea Consult Reason/Comments: left foot pain Do you want consulting provider notified?: Yes 04/23/19 11:34 Consult Physician Routine Consulting Provider: Raheem Saenz Consult Reason/Comments: left foot wound Do you want consulting provider notified?: Yes 04/25/19 14:15 Consult Physician Routine Consulting Provider: Gina Hernandez Consult Reason/Comments: left foot wound, antibiotics Do you want consulting provider notified?: Yes [facility] Course: Final Diagnoses: - severe bilateral leg discomfort and swelling, recent intervention at [facility] last week with iliac stent occlusion-Dr. Massey. -Chronic Left foot wound with Serratia marcescens,Coagulase Negative Staph,Diphtheroid species. possible osteomyelitis per Xray. - history of coronary artery disease with prior bypass surgery - PAD - hypertension -hyperlipidemia - diabetes, uncontrolled - COPD - acute on chronic renal insufficiency - abnormal troponin, not consistent with acute coronary syndrome with no significant rise and fall pattern. - anemia Hospital course:Patient is scheduled for peripheral angiogram today. Maintain IV fluid hydration. Lasix currently on hold. Blood sugars uncontrolled; staff reports noncompliant with diet, patient has been ordering multiple pizzas from [employer]. Maintain IV antibiotics as per infectious disease. Wound cultures reporting gram-negative bacilli. Afebrile, WBC 14.7. Creatinine 2.04. Evaluated by vascular surgery and cardiology. Initially scheduled to have angiogram which has been canceled as per vascular surgery. Positive Doppler pulses. Patient apparently had intervention at [facility] last week with iliac stent occlusion. Cleared by vascular surgery for discharge. Foot x-ray reporting new small cortical erosion of the fifth metatarsal, soft tissue swelling, subcutaneous emphysema ,suggesting possible osteomyelitis. PICC line ordered. Social work notified for subacute rehab. Patient is being discharged to subacute rehab in a stable condition with guarded prognosis pending PICC line for IV antibiotic therapy. Microbiology 04/23/19 13:20 Foot - Left Gram Stain - Final 04/23/19 13:20 Foot - Left Wound Culture - Final Serratia marcescens 04/23/19 13:20 Foot - Left Gram Stain - Preliminary 04/23/19 13:20 Foot - Left Tissue Culture - Preliminary Serratia marcescens Coagulase Negative Staph Diphtheroid species 04/23/19 13:20 Foot - Left Anaerobic Culture - Preliminary GENERAL: alert & oriented X3, no acute distress CARDIOVASCULAR: S1, S2 regular.. No murmur, no rub or gallop RESPIRATION: Breath sounds diminished in the bases. ABDOMEN: Soft, nontender . No guarding. no masses palpable. Bowel sounds heard. LEGS: Left lower extremity dressing clean dry and intact. Doppler pulse NERVOUS SYSTEM: No focal deficits. The impression and plan of care has been dictated as directed. : I performed a history and examination of this patient, discussed the same with the dictator. I agree with the dictator's note ,documented as a scribe. Any additional findings or plans will be noted. Patient Condition at Discharge: Stable Plan - Discharge Summary Discharge Rx Participant: No New Discharge Prescriptions: New hydrALAZINE HCL [Apresoline] 100 mg PO TID #180 tab Docusate [Colace] 100 mg PO BID cap Carvedilol [Coreg*] 25 mg PO BID-W/MEALS #120 tab Nicotine 21Mg/24Hr Patch [Habitrol] 1 patch TRANSDERM DAILY #30 patch Continue Pregabalin [Lyrica] 150 mg PO BID Ipratropium-Albuterol Nebulize [Duoneb 0.5 mg-3 mg/3 ml Soln] 3 ml INHALATION RT-QID #120 ampul.neb Isosorbide Mononitrate ER [Imdur] 30 mg PO DAILY #30 tab.er.24h Atorvastatin [Lipitor] 10 mg PO DAILY #30 tab Pantoprazole [Protonix] 40 mg PO AC-BRKFST #30 tablet. Furosemide [Lasix] 40 mg PO BID #60 tab Clopidogrel Bisulfate [Plavix] 75 mg PO DAILY #30 tablet INSULIN ASPART (NovoLOG) [NovoLOG (formulary)] 15 unit SQ AC-TID #1 vial Hydrocodone/Acetaminophen [Denton 5-325] 1 tab PO BID PRN #6 tablet PRN Reason: Pain predniSONE See Taper PO DAILY #0 Changed Insulin Glargine,Hum.rec.anlog [Basaglar Kwikpen U-100] 30 unit SQ HS #1 syr Discontinued Carvedilol 12.5 mg PO BID #60 tablet hydrALAZINE HCL [Apresoline] 50 mg PO TID #90 tab Discharge Medication List Pregabalin [Lyrica] 150 mg PO BID 12/03/18 [History] Atorvastatin [Lipitor] 10 mg PO DAILY #30 tab 04/19/19 [Rx] Clopidogrel Bisulfate [Plavix] 75 mg PO DAILY #30 tablet 04/19/19 [Rx] Furosemide [Lasix] 40 mg PO BID #60 tab 04/19/19 [Rx] Hydrocodone/Acetaminophen [Denton 5-325] 1 tab PO BID PRN #6 tablet 04/19/19 [Rx] INSULIN ASPART (NovoLOG) [NovoLOG (formulary)] 15 unit SQ AC-TID #1 vial 04/19/19 [Rx] Ipratropium-Albuterol Nebulize [Duoneb 0.5 mg-3 mg/3 ml Soln] 3 ml INHALATION RT-QID #120 ampul.neb 04/19/19 [Rx] Isosorbide Mononitrate ER [Imdur] 30 mg PO DAILY #30 tab.er.24h 04/19/19 [Rx] Pantoprazole [Protonix] 40 mg PO AC-BRKFST #30 tablet.dr 04/19/19 [Rx] Carvedilol [Coreg*] 25 mg PO BID-W/MEALS #120 tab 04/26/19 [Rx] Docusate [Colace] 100 mg PO BID cap 04/26/19 [Rx] Insulin Glargine,Hum.rec.anlog [Basaglar Kwikpen U-100] 30 unit SQ HS #1 syr 04/26/19 [Rx] Nicotine 21Mg/24Hr Patch [Habitrol] 1 patch TRANSDERM DAILY #30 patch 04/26/19 [Rx] hydrALAZINE HCL [Apresoline] 100 mg PO TID #180 tab 04/26/19 [Rx] predniSONE See Taper PO DAILY #0 04/26/19 [Rx] Follow up Appointment(s)/Referral(s): Pavel Velasquez MD [Primary Care Provider] - 1 Week Claus Massey DO [STAFF PHYSICIAN] - 1 Week Activity/Diet/Wound Care/Special Instructions: Pending final DC recommendations, clearance from vascular surgery and ID. Antibiotics as per ID
[2019-04-26] MEDS: CEFEPIME 1 GM in SODIUM CHLORIDE 0.9% 50 ML IVPB SCH (14:29)
--- NOTE | 2019-04-26 16:23 | PN ---
PROGRESS NOTE DATE OF SERVICE: 04/26/2019. REASON FOR FOLLOWUP: Left foot wound with underlying osteomyelitis. INTERVAL HISTORY: The patient is currently afebrile. She is breathing comfortably. Denies having any chest pain. No nausea, no vomiting. No abdominal pain or any worsening pain in the left foot area. PHYSICAL EXAMINATION: Blood pressure 149/75 with a pulse of 81, temperature 97.5. She is 100% on room air. General description is a middle- aged female lying in bed in no distress. Respiratory system: Unlabored breathing. Clear to auscultation anteriorly. Heart S1, S2. Regular rate and rhythm. ABDOMEN: Soft, no tenderness. Left foot is currently dressed up. Minimal blood stained drainage. LAB: No new labs have been obtained today. X-rays have been positive for possible osteomyelitis. DIAGNOSTIC IMPRESSION AND PLAN: Patient with left foot wound. Culture has been positive for Serratia Marcescens. Cefepime will be a better drug for it. The patient does give a history of CEPHALEXIN ALLERGY, but at the same time, she said it was not clear if she could have the medication at the same time and subsequently has taken without any problem. We will give her a dose of cefepime. The patient tolerated that drug of choice for outpatient antibiotics once we get a PICC line. RN to monitor the patient closely. Once antibiotic arranged, the patient will go home from ID standpoint. Continue supportive care. Local wound care with the Jennifer. MMABHIJEET / IJN: [id number] /
[2019-04-26 16:57] LABS: Glucose,Whole Blood 163 mg/dL (75-99)
[2019-04-26] MEDS ORDERED: FUROSEMIDE 10 MG/ML 4 ML VIAL IV STA (17:02)
[2019-04-26 20:17] LABS: Glucose,Whole Blood 163 mg/dL (75-99)
[2019-04-26] MEDS: INSULIN DETEMIR (LEVEMIR) 100 UNIT/ML SYR SQ SCH (21:55)
[2019-04-26] MEDS: ATORVASTATIN 10 MG TAB PO SCH ×2 (21:56→22:02)
[2019-04-27] MEDS: HYDROcodone/APAP 5-325MG 1 EACH TAB PO PRN ×4 (00:29→21:47)
[2019-04-27] MEDS: CEFEPIME 1 GM in SODIUM CHLORIDE 0.9% 50 ML IVPB SCH ×2 (01:00→11:45)
[2019-04-27] MEDS: SODIUM CHLORIDE 0.9% 500 ML 500 ML IV SCH ×5 (02:37→21:20)
[2019-04-27 02:52] LABS: Glucose,Whole Blood 249 mg/dL (75-99)
[2019-04-27 07:25] LABS: Glucose,Whole Blood 172 mg/dL (75-99)
[2019-04-27] MEDS: IPRATROPIUM-ALBUTEROL 3 ML NEB INHALATION SCH ×4 (07:41→19:32)
[2019-04-27] MEDS: CARVEDILOL 12.5 MG TAB PO SCH ×2 (07:56→16:17)
[2019-04-27] MEDS: INSULIN ASPART (NovoLOG) 100 UNIT/ML VIAL SQ SCH ×7 (07:56→21:50)
[2019-04-27] MEDS: CLOPIDOGREL 75 MG TAB PO SCH (07:57)
[2019-04-27] MEDS: HEPARIN SODIUM,PORCINE 5,000 UNIT/ML 1 ML VIAL SQ SCH ×2 (07:57→21:49)
[2019-04-27] MEDS: PANTOPRAZOLE 40 MG TABLET PO SCH (07:57)
[2019-04-27] MEDS: hydrALAZINE HCL 50 MG TAB PO SCH ×3 (07:57→21:48)
[2019-04-27] MEDS: ISOSORBIDE MONONITRATE ER 30 MG TAB.ER.24H PO SCH (07:57)
[2019-04-27] MEDS: DOCUSATE 100 MG CAP PO SCH ×2 (07:57→21:48)
[2019-04-27] MEDS: NICOTINE 21MG/24HR PATCH TRANSDERM SCH (07:58)
[2019-04-27] MEDS: predniSONE 20 MG TAB PO SCH (07:58)
[2019-04-27] MEDS: PREGABALIN 75 MG CAP PO SCH ×2 (07:58→21:48)
[2019-04-27] MEDS ORDERED: FUROSEMIDE 10 MG/ML 4 ML VIAL IV STA (10:20)
[2019-04-27] MEDS ORDERED: LIDOCAINE 1% INJ 10MG/ML (20 ML MDV) SQ ONE (11:25)
[2019-04-27 11:51] LABS: Glucose,Whole Blood 120 mg/dL (75-99)
--- NOTE | 2019-04-27 12:30 | IR ---
EXAMINATION TYPE: IR cvc insert >=5 years DATE OF EXAM: 04/27/2019 COMPARISON: NONE CLINICAL HISTORY: Infection Needs long-term intravenous access for antibiotics. PROCEDURE: After informed consent, the skin overlying the right basilic vein was localized with ultrasound and n oted to be compressible and patent. An ultrasound image was obtained and submitted on the patient's chart. The overlying skin was prepped and draped and Lidocaine was used for local anesthesia. A ski n willard was made with a scalpel. Access was gained to the vein under ultrasound guidance with a 21 ga uge needle and a 0.018 inch wire was advanced. Access site was dilated with Peel-Away sheath and cat heter tailored to the appropriate length and advanced such that the distal tip is at the cavoatrial j unction. Spot image was obtained verifying placement. Catheter was fixed to the skin and a sterile dressing was placed following hemostasis. Catheter was aspirated and flushed with saline. Patient w as discharged in stable condition without complication. Maximal barrier technique is utilized. Ultra sound image is documented on the chart. Ultrasound used with sterile technique. Fluoro time and fluoroscopic images submitted to document procedure: 146 intraoperative images, 0.5 m inutes fluoroscopy time IMPRESSION: STATUS POST ULTRASOUND AND FLUOROSCOPIC GUIDED PICC LINE PLACEMENT, READY FOR USE. THIS PROCEDURE WAS PERFORMED BY THE UNDERSIGNED.
[2019-04-27 13:05] LABS: Anisocytosis Slight; Basophils # (A) 0.1 k/uL (0-0.2); Basophils % (A) 0 %; Eosinophils # (A) 0.4 k/uL (0-0.7); Eosinophils % (A) 2 %; HCT 29.3 % (34.0-46.0); HGB 9.5 gm/dL (11.4-16.0); Lymphocytes # (A) 2.9 k/uL (1.0-4.8); Lymphocytes % (A) 19 %; MCH 25.3 pg (25.0-35.0); MCHC 32.3 g/dL (31.0-37.0); MCV 78.4 fL (80.0-100.0); Mean Platelet Volume 8.1; Microcytosis Slight; Monocytes # (A) 0.8 k/uL (0-1.0); Monocytes % (A) 5 %; Neutrophils # (A) 11.2 k/uL (1.3-7.7); Neutrophils % (A) 72 %; Platelet Count 275 k/uL (150-450); RBC 3.74 m/uL (3.80-5.40); RDW 18.7 % (11.5-15.5); WBC 15.5 k/uL (3.8-10.6)
[2019-04-27 13:07] LABS: Calcium 8.6 mg/dL (8.4-10.2)
[2019-04-27] MEDS: FUROSEMIDE 40 MG TAB PO SCH (16:17)
--- NOTE | 2019-04-27 16:32 | P.PN ---
Subjective Progress Note Date: 04/27/19 Patient is scheduled for peripheral angiogram today. Maintain IV fluid hydration. Lasix currently on hold. Blood sugars uncontrolled; staff reports noncompliant with diet, patient has been ordering multiple pizzas from [employer]. Maintain IV antibiotics as per infectious disease. Wound cultures re porting gram-negative bacilli. Afebrile, WBC 14.7. Creatinine 2.04. 04/27/2019 Trending weight from admission suggestive of a weight gain of 16 kg;patient has been weighed on multiple different scales. No JVD, no shortness of breath, maintaining O2 sats in the high 90s on room air, normal respiratory rate, clear lungs. Patient has been noncompliant with consistent carb diet, ordering food from the outside such as pizzas, eating candy etc. patient received Lasix IV push last night and this morning. Scheduled for PICC line today. Preop pending for subacute rehab. Denies chest pain, palpitations or increasing shortness of breath. Objective - Vital Signs Vital signs: Vital Signs Temp 98.2 F 04/27/19 05:57 Pulse 87 04/27/19 05:57 Resp 15 04/27/19 05:57 BP 172/72 04/27/19 05:57 Pulse Ox 100 04/27/19 05:57 Intake & Output 04/26/19 04/27/19 04/27/19 18:59 06:59 18:59 Intake Total 1080 1140 Balance 1080 1140 Weight 115.8 kg Intake: Oral 1080 1140 Other: Voiding Method Toilet Toilet # Voids 1 1 # Bowel Movements 1 - Exam PHYSICAL EXAM: VITAL SIGNS: As above GENERAL: Sitting up in bed, no acute distress HEENT: Conjunctivae normal. eyes normal. NECK: No JVD. No thyroid enlargement. No LNs CARDIOVASCULAR: S1, S2 regular.. No murmur, no rub or gallop RESPIRATION: Breath sounds diminished in the bases. No rhonchi or crackles. No expiratory wheezing .No bronchial breathing. ABDOMEN: Soft, nontender . No guarding. no masses palpable. Bowel sounds heard. LEGS: Decreasing edema. Left lower extremity dressing clean dry and intact. Doppler pulse PSYCHIATRY: Alert and oriented -3, mood and affect normal. NERVOUS SYSTEM: Cranial N 2-12 grossly normal. Moves all 4 limbs. No focal deficits. Strength and sensation grossly intact.. Microbiology 04/23/19 13:20 Foot - Left Gram Stain - Final 04/23/19 13:20 Foot - Left Tissue Culture - Final Serratia marcescens Coagulase Negative Staph Diphtheroid species Escherichia coli 04/23/19 13:20 Foot - Left Gram Stain - Final 04/23/19 13:20 Foot - Left Wound Culture - Final Serratia marcescens 04/23/19 13:20 Foot - Left Anaerobic Culture - Preliminary - Labs CBC & Chem 7: 04/27/19 12:28 04/27/19 12:28 Labs: Abnormal Lab Results - Last 24 Hours (Table) 04/26/19 04/26/19 04/27/19 Range/Units 16:53 20:16 02:47 POC Glucose (mg/dL) 163 H 163 H 249 H (75-99) mg/dL 04/27/19 Range/Units 07:22 POC Glucose (mg/dL) 172 H (75-99) mg/dL Microbiology - Last 24 Hours (Table) 04/23/19 13:20 Gram Stain - Final Foot - Left Tissue Culture - Final Serratia marcescens Coagulase Negative Staph Diphtheroid species Escherichia coli Assessment and Plan Assessment: - severe bilateral leg discomfort and swelling, recent intervention at [facility] last week with iliac stent occlusion-Dr. Massey. -Chronic Left foot wound with Serratia marcescens,Coagulase Negative Stap h,Diphtheroid species. possible osteomyelitis per Xray. - history of coronary artery disease with prior bypass surgery - PAD - hypertension -hyperlipidemia - diabetes, uncontrolled - COPD - acute on chronic renal insufficiency - abnormal troponin, not consistent with acute coronary syndrome with no significant rise and fall pattern. - anemia Plan: Continue on current medication regime ,monitoring and symptomatic treatment. IV antibiotic therapy as per infectious disease. PICC line placement scheduled for today/rehab at discharge pending pre-auth. Lantus dose increased with close monitoring of Accu-Cheks.further recommendations to follow The impression and plan of care has been dictated as directed. : I performed a history and examination of this patient, discussed the same with the dictator. I agree with the dictator's note ,documented as a scribe. Any additional findings or plans will be noted.
--- NOTE | 2019-04-27 16:37 | P.PN ---
Subjective Progress Note Date: 04/26/19 Patient is scheduled for peripheral angiogram today. Maintain IV fluid hydration. Lasix currently on hold. Blood sugars uncontrolled; staff reports noncompliant with diet, patient has been ordering multiple pizzas from [employer]. Maintain IV antibiotics as per infectious disease. Wound cultures re porting gram-negative bacilli. Afebrile, WBC 14.7. Creatinine 2.04. 04/27/2019 Trending weight from admission suggestive of a weight gain of 16 kg;patient has been weighed on multiple different scales. No JVD, no shortness of breath, maintaining O2 sats in the high 90s on room air, normal respiratory rate, clear lungs. Patient has been noncompliant with consistent carb diet, ordering food from the outside such as pizzas, eating candy etc. patient received Lasix IV push last night and this morning. Scheduled for PICC line today. Preop pending for subacute rehab. Denies chest pain, palpitations or increasing shortness of breath. 04/26/2019 x-ray suggestive of osteomyelitis, scheduled for PICC line tomorrow. Denies chest pain, palpitations or increased shortness of breath. Afebrile. Objective - Vital Signs Vital signs: Vital Signs Temp 99.1 F 04/27/19 15:00 Pulse 93 04/27/19 15:00 Resp 16 04/27/19 15:00 BP 124/68 04/27/19 15:00 Pulse Ox 97 04/27/19 15:00 Intake & Output 04/26/19 04/27/19 04/27/19 18:59 06:59 18:59 Intake Total 1080 1140 Balance 1080 1140 Weight 115.8 kg Intake: Oral 1080 1140 Other: Voiding Method Toilet Toilet # Voids 1 1 2 # Bowel Movements 1 - Exam PHYSICAL EXAM: VITAL SIGNS: Temperature 97.8 oral, pulse 82, respiratory rate 16, blood pressure 102/66, maintaining O2 sats of 100% on room air. GENERAL: Sitting up in bed, no acute distress HEENT: Conjunctivae normal. eyes normal. Oral mucosa moist NECK: No JVD. No thyroid enlargement. No LNs CARDIOVASCULAR: S1, S2 regular. No murmur, no rub or gallop RESPIRATION: Breath sounds diminished in the bases. No rhonchi or crackles. No expiratory wheezing . ABDOMEN: Soft, nontender . No guarding. no masses palpable. Bowel sounds heard. LEGS: Decreasing edema. Left lower extremity dressing clean dry and intact. Doppler pulse PSYCHIATRY: Alert and oriented -3, mood and affect normal. NERVOUS SYSTEM: Cranial N 2-12 grossly normal. Moves all 4 limbs. No focal deficits. Strength and sensation grossly intact. Microbiology 04/23/19 13:20 Foot - Left Gram Stain - Final 04/23/19 13:20 Foot - Left Tissue Culture - Final Serratia marcescens Coagulase Negative Staph Diphtheroid species Escherichia coli 04/23/19 13:20 Foot - Left Gram Stain - Final 04/23/19 13:20 Foot - Left Wound Culture - Final Serratia marcescens 04/23/19 13:20 Foot - Left Anaerobic Culture - Preliminary - Labs CBC & Chem 7: 04/27/19 12:28 04/27/19 12:28 Labs: Abnormal Lab Results - Last 24 Hours (Table) 04/26/19 04/26/19 04/27/19 Range/Units 16:53 20:16 02:47 WBC (3.8-10.6) k/uL RBC (3.80-5.40) m/uL Hgb (11.4-16.0) gm/dL Hct (34.0-46.0) % MCV (80.0-100.0) fL RDW (11.5-15.5) % Neutrophils # (1.3-7.7) k/uL Chloride (98-107) mmol/L Carbon Dioxide (22-30) mmol/L BUN (7-17) mg/dL Creatinine (0.52-1.04) mg/dL POC Glucose (mg/dL) 163 H 163 H 249 H (75-99) mg/dL 04/27/19 04/27/19 04/27/19 Range/Units 07:22 11:49 12:28 WBC 15.5 H (3.8-10.6) k/uL RBC 3.74 L (3.80-5.40) m/uL Hgb 9.5 L (11.4-16.0) gm/dL Hct 29.3 L (34.0-46.0) % MCV 78.4 L (80.0-100.0) fL RDW 18.7 H (11.5-15.5) % Neutrophils # 11.2 H (1.3-7.7) k/uL Chloride (98-107) mmol/L Carbon Dioxide (22-30) mmol/L BUN (7-17) mg/dL Creatinine (0.52-1.04) mg/dL POC Glucose (mg/dL) 172 H 120 H (75-99) mg/dL 04/27/19 Range/Units 12:28 WBC (3.8-10.6) k/uL RBC (3.80-5.40) m/uL Hgb (11.4-16.0) gm/dL Hct (34.0-46.0) % MCV (80.0-100.0) fL RDW (11.5-15.5) % Neutrophils # (1.3-7.7) k/uL Chloride 111 H (98-107) mmol/L Carbon Dioxide 21 L (22-30) mmol/L BUN 71 H (7-17) mg/dL Creatinine 1.85 H (0.52-1.04) mg/dL POC Glucose (mg/dL) (75-99) mg/dL Microbiology - Last 24 Hours (Table) 04/23/19 13:20 Gram Stain - Final Foot - Left Tissue Culture - Final Serratia marcescens Coagulase Negative Staph Diphtheroid species Escherichia coli Assessment and Plan Assessment: - severe bilateral leg discomfort and swelling, recent intervention at [facility] last week with iliac stent occlusion-Dr. Massey. -Chronic Left foot wound with Serratia marcescens,Coagulase Negative Staph,Diphtheroid species. possible osteomyelitis per Xray. - history of coronary artery disease with prior bypass surgery - PAD - hypertension -hyperlipidemia - diabetes, uncontrolled - COPD - acute on chronic renal insufficiency - abnormal troponin, not consistent with acute coronary syndrome with no significant rise and fall pattern. - anemia Plan: Continue on current medication regime ,monitoring and symptomatic treatment. PICC line scheduled for tomorrow. IV antibiotic therapy as per i nfectious disease. Positive weight gain, leg edema , trial dose of Lasix .pre- auth. for subacute rehab in progress .Lantus dose increased with close monitoring of Accu-Cheks.further recommendations to follow The impression and plan of care has been dictated as directed. : I performed a history and examination of this patient, discussed the same with the dictator. I agree with the dictator's note ,documented as a scribe. Any additional findings or plans will be noted.
[2019-04-27 17:23] LABS: Glucose,Whole Blood 154 mg/dL (75-99)
--- NOTE | 2019-04-27 18:03 | PN ---
PROGRESS NOTE DATE OF SERVICE: 04/27/2019. REASON FOR FOLLOWUP: Left foot wound, underlying osteomyelitis, Serratia marcescens. INTERVAL HISTORY: The patient is currently afebrile. The patient has been breathing comfortably. The patient denies having any chest pain or cough. Still complaining of pain to the left foot wound area. Did have slight blistering drainage. No nausea, vomiting, or any diarrhea. She did get a PICC line. PHYSICAL EXAMINATION: Blood pressure 172/72 with a pulse of 87, temperature 98.2. She is 100% on room air. General description is a middle-aged female up in the room in no distress. Respiratory system: Unlabored breathing. Clear to auscultation anteriorly. Heart S1, S2. Regular rate and rhythm. Abdomen soft, no tenderness. Left foot wound is currently dressed up. Minimal persistent drainage on the dressing. LABS: Hemoglobin 9.5, white count 15.5. BUN of 71, creatinine 1.85. DIAGNOSTIC IMPRESSION AND PLAN: Patient with left foot lateral border wound with underlying osteomyelitis. The patient is currently covered with cefepime. The patient has Serratia Marcescens, the likely pathogen. Duration of antibiotic should be at least 6 weeks with weekly monitoring of CBC and BMP and sed rate and close outpatient followup. Continue supportive care. MMODL / IJN: [id number] /
--- NOTE | 2019-04-27 18:46 | US ---
EXAMINATION TYPE: US renals and bladder DATE OF EXAM: 04/27/2019 COMPARISON: CT CLINICAL HISTORY: RF. Renal failure EXAM MEASUREMENTS: Right Kidney: 10.4 x 4.3 x 4.8 cm Left Kidney: 14.1 x 5.4 x 5.6 cm Right Kidney: wnl, lower pole gassed out Left Kidney: Larger in size when compared to right kidney Bladder: Not visualized, pt states bladder not filling throughout day IMPRESSION: Asymmetric renal size but no evidence of a renal mass or obstruction. No evidence of renal atrophy.
--- NOTE | 2019-04-27 20:07 | CONS ---
CONSULTATION REASON FOR CONSULT: Renal failure. HISTORY OF PRESENT ILLNESS: Patient is a 49-year-old female who was initially admitted to the hospital on 04/22/2019, one day after her discharge from the hospital. The patient came in with complaints of pain in her legs, mainly her right foot. She has a wound on the left foot dorsum aspect of the fifth toe, for which she had debridement done by Dr. Saenz on 04/23/2019. Patient's serum creatinine was 1.65 mg/dL on initial admission. It peaked to about 2.04 yesterday and this morning it is back down to 1.85. Currently patient is not on any nephrotoxic medications. She is on Lasix 40 mg p.o. b.i.d. Patient was on Cozaar, which was discontinued. Her blood pressure has not been significantly low; in fact, it is on the higher side. Patient states that she feels significantly swollen. Review of previous labs shows a previous creatinine as low as 1.0 on 04/13/2019. I do not see any IV contrast administration this admission. It appears that the patient was supposed to have an angiogram, but it was held, given her worsening renal function yesterday. PAST MEDICAL HISTORY: Past medical history is significant for: 1. Asthma. 2. History of CVA/TIA. 3. Type 2 diabetes. 4. History of DVT. 5. Hyperlipidemia. 6. Hypertension. 7. TN. 8. COPD. 9. Peripheral vascular disease. PAST SURGICAL HISTORY: 1. Coronary artery bypass surgery. 2. Coronary stent placement. 3. Tubal ligation. 4. Central venous catheter placement. SOCIAL HISTORY: Patient is a former smoker. No history of drug abuse or alcohol abuse. MEDICATIONS: Medications prior to admission included: 1. Lyrica. 2. Lipitor. 3. Carvedilol. 4. Plavix. 5. Lasix. 6. Insulin. 7. Imdur. 8. Protonix. 9. Hydralazine. 10.Prednisone. ALLERGIES: ALLERGIES INCLUDE: 1. KEFLEX. 2. ZOCOR. 3. BACTRIM. 4. TOMATO. 5. ORANGE. PHYSICAL EXAMINATION: Patient is currently comfortable, awake, not in any acute distress. Blood pressure was 172/72, heart rate 87 per minute. She is afebrile. EXAMINATION OF THE HEART: S1 and S2. EXAMINATION OF LUNGS: Bilateral breath sounds are heard. ABDOMEN: Soft, non-tender, obese. Examination of lower extremities shows edema 1+ bilaterally. Left foot is currently wrapped. [employer] exam is grossly intact. LABS: Sodium 137, potassium 5.0, chloride 111, BUN 71, serum creatinine 1.85, hemoglobin 9.5 g/dL. UA shows 3+ protein, 2+ glucose. ASSESSMENT: 1. Acute kidney injury, nonoliguric, possibly acute tubular necrosis; renal function slightly better than yesterday. Patient was started on IV fluids. She is hypervolemic. Therefore I will hold off on the IV fluids. We can continue with the Lasix. Currently patient is not on any nephrotoxic medications. I would keep her off of the JOE inhibitors or angiotensin receptor blockers for the next few days. Will check imaging on the kidneys. 2. Hypertension. Blood pressure was high this morning. Adjust medications based on the next blood pressure. Continue off of IV fluids. Patient is on hydralazine and Coreg. We can add calcium channel blockers if needed. 3. Left foot wound, status post debridement, maintained on antibiotics. PLAN: Continue off of IV fluids. Continue with Lasix. Check ultrasound of the kidneys. Patient will need followup as outpatient. Hold off on JOE inhibitor/angiotensin receptor blockers for now. Patient is advised to avoid use of any nonsteroidal anti- inflammatory agents upon discharge. Thank you for this consultation. Will continue to follow the patient with you during her hospitalization. MMODL / IJN: [id number] /
[2019-04-27 20:49] LABS: Glucose,Whole Blood 101 mg/dL (75-99)
[2019-04-27] MEDS ORDERED: INSULIN DETEMIR (LEVEMIR) 100 UNIT/ML SYR SQ SCH (21:00)
[2019-04-27] MEDS: ATORVASTATIN 10 MG TAB PO SCH (21:48)
[2019-04-27 22:09] VITALS: RESP 18
[2019-04-28 00:15] LABS: Glucose,Whole Blood 109 mg/dL (75-99)
[2019-04-28] MEDS: SODIUM CHLORIDE 0.9% 500 ML 500 ML IV SCH ×3 (00:51→12:57)
[2019-04-28] MEDS: CEFEPIME 1 GM in SODIUM CHLORIDE 0.9% 50 ML IVPB SCH ×2 (00:51→12:56)
[2019-04-28] MEDS: HYDROcodone/APAP 5-325MG 1 EACH TAB PO PRN (04:10)
[2019-04-28 05:18] VITALS: BP 151/74; PULSE 96; TEMP 97.9
[2019-04-28 07:29] LABS: Glucose,Whole Blood 266 mg/dL (75-99)
[2019-04-28] MEDS: IPRATROPIUM-ALBUTEROL 3 ML NEB INHALATION SCH ×3 (08:02→15:03)
[2019-04-28] MEDS: predniSONE 20 MG TAB PO SCH (08:20)
[2019-04-28] MEDS: CLOPIDOGREL 75 MG TAB PO SCH (08:20)
[2019-04-28] MEDS: DOCUSATE 100 MG CAP PO SCH (08:20)
[2019-04-28] MEDS: ISOSORBIDE MONONITRATE ER 30 MG TAB.ER.24H PO SCH (08:20)
[2019-04-28] MEDS: hydrALAZINE HCL 50 MG TAB PO SCH (08:20)
[2019-04-28] MEDS: PREGABALIN 75 MG CAP PO SCH (08:20)
[2019-04-28] MEDS: PANTOPRAZOLE 40 MG TABLET PO SCH (08:20)
[2019-04-28] MEDS: FUROSEMIDE 40 MG TAB PO SCH (08:20)
[2019-04-28] MEDS: HEPARIN SODIUM,PORCINE 5,000 UNIT/ML 1 ML VIAL SQ SCH (08:20)
[2019-04-28] MEDS: INSULIN ASPART (NovoLOG) 100 UNIT/ML VIAL SQ SCH ×4 (08:21→12:57)
[2019-04-28] MEDS: NICOTINE 21MG/24HR PATCH TRANSDERM SCH (08:21)
[2019-04-28] MEDS: CARVEDILOL 12.5 MG TAB PO SCH (08:21)
--- NOTE | 2019-04-28 11:31 | P.PN ---
Subjective Patient is seen in follow for acute kidney injury. Creatinine peaked at 2.09 this admission and is 1.85 today. Baseline creatinine is near 1. Patient has a PICC line placed yesterday and is currently maintained on IV antibiotics for left foot wound and osteomyelitis. She admits to edema in her lower extremities. Urine output has been fair. No vomiting or diarrhea. Vital signs are stable. General: The patient appeared well nourished and normally developed. HEENT: Head exam is unremarkable. Neck is without jugular venous distension. LUNGS: Lungs are clear to auscultation and percussion. Breath sounds decreased. HEART: Rate and Rhythm are regular. First and second heart sounds normal. No murmurs, rubs or gallops. ABDOMEN: Abdominal exam reveals normal bowel sounds. Non-tender and non- distended. No evidence of peritonitis. EXTREMITITES: 1+ edema. Objective - Vital Signs Vital signs: Vital Signs Temp 97.9 F 04/28/19 05:05 Pulse 96 04/28/19 08:00 Resp 18 04/28/19 05:05 BP 151/74 04/28/19 05:05 Pulse Ox 100 04/28/19 05:05 Intake & Output 04/27/19 04/28/19 04/28/19 18:59 06:59 18:59 Weight 117.2 kg Other: Voiding Method Toilet # Voids 2 2 1 - Labs CBC & Chem 7: 04/27/19 12:28 04/27/19 12:28 Labs: Abnormal Lab Results - Last 24 Hours (Table) 04/27/19 04/27/19 04/27/19 Range/Units 11:49 12:28 12:28 WBC 15.5 H (3.8-10.6) k/uL RBC 3.74 L (3.80-5.40) m/uL Hgb 9.5 L (11.4-16.0) gm/dL Hct 29.3 L (34.0-46.0) % MCV 78.4 L (80.0-100.0) fL RDW 18.7 H (11.5-15.5) % Neutrophils # 11.2 H (1.3-7.7) k/uL Chloride 111 H (98-107) mmol/L Carbon Dioxide 21 L (22-30) mmol/L BUN 71 H (7-17) mg/dL Creatinine 1.85 H (0.52-1.04) mg/dL POC Glucose (mg/dL) 120 H (75-99) mg/dL 04/27/19 04/27/19 04/28/19 Range/Units 17:21 20:26 00:11 WBC (3.8-10.6) k/uL RBC (3.80-5.40) m/uL Hgb (11.4-16.0) gm/dL Hct (34.0-46.0) % MCV (80.0-100.0) fL RDW (11.5-15.5) % Neutrophils # (1.3-7.7) k/uL Chloride (98-107) mmol/L Carbon Dioxide (22-30) mmol/L BUN (7-17) mg/dL Creatinine (0.52-1.04) mg/dL POC Glucose (mg/dL) 154 H 101 H 109 H (75-99) mg/dL 04/28/19 Range/Units 07:27 WBC (3.8-10.6) k/uL RBC (3.80-5.40) m/uL Hgb (11.4-16.0) gm/dL Hct (34.0-46.0) % MCV (80.0-100.0) fL RDW (11.5-15.5) % Neutrophils # (1.3-7.7) k/uL Chloride (98-107) mmol/L Carbon Dioxide (22-30) mmol/L BUN (7-17) mg/dL Creatinine (0.52-1.04) mg/dL POC Glucose (mg/dL) 266 H (75-99) mg/dL Microbiology - Last 24 Hours (Table) 04/23/19 13:20 Anaerobic Culture - Final Foot - Left Assessment and Plan Plan: 1. Acute kidney injury secondary to ATN secondary to infection. Creatinine peaked at 2.09 this admission and was down to 1.85 as of yesterday. Baseline creatinine near 1. 2. Left foot wound status post debridement. Maintained on IV antibiotics. 3. Benign hypertension. Controlled. 4. Insulin-dependent diabetes mellitus. 5. History of SLE. 6. Volume overload. 7. Systolic CHF with ejection fraction of 40%. 8. History of coronary artery disease status post CABG. Plan: Maintain Lasix 40 mg orally twice daily. I will give her a dose of IV Lasix prior to discharge. Avoid nephrotoxins. Potential discharge today. Repeat BMP and magnesium level in 2-3 days postdischarge. Patient will need to follow-up outpatient in the next 1-2 weeks. Patient's prior urinalysis does reveal proteinuria. Will further quantify and workup as an outpatient.
[2019-04-28 12:39] LABS: Glucose,Whole Blood 175 mg/dL (75-99)
--- NOTE | 2019-04-28 13:43 | P.DS ---
Providers Date of admission: 04/21/19 10:28 Expected date of discharge: 04/28/19 Attending physician: Pavel Velasquez Consults: 04/21/19 18:12 Consult Physician Urgent Consulting Provider: Eugene Stevens Consult Reason/Comments: elevated troponin Do you want consulting provider notified?: Yes 04/22/19 09:44 Consult Physician Urgent Consulting Provider: Eugene Stevens Consult Reason/Comments: left foot ulcer Do you want consulting provider notified?: Already Contacted Consult Physician Urgent Consulting Provider: Rogelio Andrea Consult Reason/Comments: left foot pain Do you want consulting provider notified?: Yes 04/23/19 11:34 Consult Physician Routine Consulting Provider: Raheem Saenz Consult Reason/Comments: left foot wound Do you want consulting provider notified?: Yes 04/25/19 14:15 Consult Physician Routine Consulting Provider: Gina Hernandez Consult Reason/Comments: left foot wound, antibiotics Do you want consulting provider notified?: Yes 04/26/19 14:16 Consult Physician Urgent Consulting Provider: Jerry Murillo Consult Reason/Comments: PICC line clearance Do you want consulting provider notified?: Yes Primary care physician: [facility] Course: - severe bilateral leg discomfort and swelling, recent intervention at [facility] last week with iliac stent occlusion-Dr. Massey. -Chronic Left foot wound with Serratia marcescens,Coagulase Negative Staph,Diphtheroid species. possible osteomyelitis per Xray. - history of coronary artery disease with prior bypass surgery - PAD - hypertension -hyperlipidemia - diabetes, uncontrolled - COPD - acute on chronic renal insufficiency - abnormal troponin, not consistent with acute coronary syndrome with no significant rise and fall pattern. - anemia Hospital course:Hospital course:Patient is scheduled for peripheral angiogram today. Maintain IV fluid hydration. Lasix currently on hold. Blood sugars uncontrolled; staff reports noncompliant with diet, patient has been ordering multiple pizzas from [employer]. Maintain IV antibiotics as per infectious disease. Wound cultures reporting gram-negative bacilli. Afebrile, WBC 14.7. Creatinine 2.04. Evaluated by vascular surgery and cardiology. Initially scheduled to have angiogram which has been canceled as per vascular surgery. Positive Doppler pulses. Patient apparently had intervention at [facility] last week with iliac stent occlusion. Cleared by vascular surgery for discharge. Foot x-ray reporting new small cortical erosion of the fifth metatarsal, soft tissue swelling, subcutaneous emphysema ,suggesting possible osteomyelitis. PICC line ordered. Social work notified for subacute rehab. Patient is being discharged to subacute rehab in a stable condition with guarded prognosis pending PICC line for IV antibiotic therapy. Cleared by all consults for discharge with diuretic dosing as per cardiology .Status post PICC line placement. Per social work/case management patient does not have any more ECF days. Patient is being discharged home with a friend with home care for IV antibiotic therapy and wound care. Microbiology 04/23/19 13:20 Foot - Left Anaerobic Culture - Final 04/23/19 13:20 Foot - Left Gram Stain - Final 04/23/19 13:20 Foot - Left Tissue Culture - Final Serratia marcescens Coagulase Negative Staph Diphtheroid species Escherichia coli 04/23/19 13:20 Foot - Left Gram Stain - Final 04/23/19 13:20 Foot - Left Wound Culture - Final Serratia marcescens GENERAL: alert & oriented X3, no acute distress CARDIOVASCULAR: S1, S2 regular. No murmur, no rub or gallop RESPIRATION: Breath sounds diminished in the bases. ABDOMEN: Soft, nontender . No guarding. no masses palpable. Bowel sounds heard. LEGS: Left lower extremity dressing clean dry and intact. Doppler pulse NERVOUS SYSTEM: No focal deficits. The impression and plan of care has been dictated as directed. : I performed a history and examination of this patient, discussed the same with the dictator. I agree with the dictator's note ,documented as a scribe. Any additional findings or plans will be noted. Time taken: 35 minutes Patient Condition at Discharge: Stable Plan - Discharge Summary Discharge Rx Participant: No New Discharge Prescriptions: New hydrALAZINE HCL [Apresoline] 100 mg PO TID #180 tab Docusate [Colace] 100 mg PO BID cap Carvedilol [Coreg*] 25 mg PO BID-W/MEALS #120 tab Insulin Detemir (Levemir) [Levemir] 35 unit SQ HS syr Ipratropium-Albuterol Nebulize [Duoneb 0.5 mg-3 mg/3 ml Soln] 3 ml INHALATION Q4H PRN ampul.neb PRN Reason: Shortness Of Breath Or Wheezing Pregabalin [Lyrica] 150 mg PO BID #12 cap HYDROcodone/APAP 5-325MG [[place] 5-325] 1 each PO Q6HR PRN #12 tab PRN Reason: Pain Cefepime HCl [Maxipime] 1 gm IV Q12HR #84 vial Continue Pantoprazole [Protonix] 40 mg PO AC-BRKFST #30 tablet. Furosemide [Lasix] 40 mg PO BID #60 tab Clopidogrel Bisulfate [Plavix] 75 mg PO DAILY #30 tablet INSULIN ASPART (NovoLOG) [NovoLOG (formulary)] 15 unit SQ AC-TID #1 vial Discontinued Pregabalin [Lyrica] 150 mg PO BID Carvedilol 12.5 mg PO BID #60 tablet Insulin Glargine,Hum.rec.anlog [Basaglar Kwikpen U-100] 25 unit SQ HS #1 syr hydrALAZINE HCL [Apresoline] 50 mg PO TID #90 tab Hydrocodone/Acetaminophen [[place] 5-325] 1 tab PO BID PRN #6 tablet PRN Reason: Pain predniSONE See Taper PO DAILY No Action Isosorbide Mononitrate ER [Imdur] 30 mg PO 1200 Discharge Medication List Clopidogrel Bisulfate [Plavix] 75 mg PO DAILY #30 tablet 04/19/19 [Rx] Furosemide [Lasix] 40 mg PO BID #60 tab 04/19/19 [Rx] INSULIN ASPART (NovoLOG) [NovoLOG (formulary)] 15 unit SQ AC-TID #1 vial 04/19/19 [Rx] Pantoprazole [Protonix] 40 mg PO AC-BRKFST #30 tablet. 04/19/19 [Rx] Carvedilol [Coreg*] 25 mg PO BID-W/MEALS #120 tab 04/26/19 [Rx] Docusate [Colace] 100 mg PO BID cap 04/26/19 [Rx] hydrALAZINE HCL [Apresoline] 100 mg PO TID #180 tab 04/26/19 [Rx] Cefepime HCl [Maxipime] 1 gm IV Q12HR #84 vial 04/27/19 [Rx] HYDROcodone/APAP 5-325MG [[place] 5-325] 1 each PO Q6HR PRN #12 tab 04/27/19 [Rx] Insulin Detemir (Levemir) [Levemir] 35 unit SQ HS syr 04/27/19 [Rx] Ipratropium-Albuterol Nebulize [Duoneb 0.5 mg-3 mg/3 ml Soln] 3 ml INHALATION Q4H PRN ampul.neb 04/27/19 [Rx] Pregabalin [Lyrica] 150 mg PO BID #12 cap 04/27/19 [Rx] Isosorbide Mononitrate ER [Imdur] 30 mg PO 1200 04/28/19 [History] Follow up Appointment(s)/Referral(s): Claus Massey DO [STAFF PHYSICIAN] - 1 Week Pavel Velasquez MD [Primary Care Provider] - 1 Week [facility], [NON-STAFF] - [facility], [REFERRING] - Jerry Murillo DO [STAFF PHYSICIAN] - 1 Week Ambulatory/Diagnostic Orders: Basic Metabolic Panel [LAB.AMB] Location: None Selected C Reactive Protein [LAB.AMB] Location: None Selected Complete Blood Count w/diff [LAB.AMB] Location: None Selected Erythrocyte Sedimentation Rate [LAB.AMB] Location: None Selected Activity/Diet/Wound Care/Special Instructions: Abelardo to the left foot wound follow up with Dr Hernandez in the wound care next week call [phone] to make an appointmemt
--- NOTE | 2019-04-28 19:46 | PN ---
PROGRESS NOTE DATE OF SERVICE: 04/28/2019. REASON FOR FOLLOWUP: Left foot toe osteomyelitis acute Serratia Marcescens. INTERVAL HISTORY: The patient is currently afebrile. Still complaining of pain to the left foot area. Generalized overall not feeling well. No chest pain, shortness of breath or cough and no diarrhea. PHYSICAL EXAMINATION: Blood pressure 151/74 with a pulse of 93. Temperature is 97.9. She is 100% on room air. General description is a middle aged female lying in bed in no distress. Respiratory system unlabored breathing, clear to auscultation anteriorly. Heart S1, S2. Regular rate and rhythm. Abdomen soft, no tenderness. LABS: No new labs have been obtained today. DIAGNOSTIC IMPRESSION AND PLAN: Patient with left foot wound with underlying osteomyelitis, acute. The patient, at this time, continue with cefepime 1 g q.12h for total of 6 weeks. Local wound care with [facility]. Follow up in the office in one week. Continue supportive care. MMODL / IJN: [id number] /
--- NOTE | 2019-05-02 09:18 | CDI ---
Documentation Clarification Form Date: 05/02/19 From: Tianna Valadez Phone: If you have a question regarding this query, please contact Francine Lee at [phone] between 8am and 5pm. Admit Date: 04/21/2019 10:28:00 AM Patient Name: Sharon Singh Visit Number: [id number] Discharge Date: 04/28/2019 3:42:00 PM ATTENTION: The Clinical Documentation Specialists (CDI) and [facility] Coding Staff appreciate your assistance in clarifying documentation. Please respond to the clarification below the line at the bottom and electronically sign. The CDI & [facility] Coding staff will review the response and follow-up if needed. Please note: Queries are made part of the Legal Health Record. If you have any questions, please contact the author of this message via ITS. Dr. Pavel Velasquez Patient was admitted with extreme pain and swelling of both legs and left foot ulcer. Per H&P, cardiology consult note and progress notes, Whit Rosenthal's 04/25 progress note and the discharge summary, the patient has acute on chronic renal insufficiency. History/Risk Factors: Diabetes, peripheral vascular disease and hypertension. Clinical Indicators: GFR decreased Admit BUN/CR/GFR: 41 Discharge BUN/CR/GFR: 36 Treatment: IVF: sodium chloride 500 mls @ 100 mls/hr for acute kidney injury. Consult: Dr. Downs documented acute kidney injury possibly acute tubular necrosis but does not document chronic renal failure. In order to capture the severity of condition, please clarify if the condition signifies: CKD Stage 1 (GFR > 90) CKD Stage 2 (GFR 60-89) CKD Stage 3 (GFR 30-59) CKD Stage 4 (GFR 15-29) CKD Stage 5 (GFR <15) ESRD Other, please specify Unable to determine Stage III MTDD
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
--- NOTE | 2019-05-14 10:48 | DS ---
DISCHARGE SUMMARY ADDENDUM: Please add: Left foot ulcer secondary to peripheral vascular disease. MMODL / IJN: [id number] /
== END 2019-04-28 15:42 | disposition home health service (06) | DRG 623 ==
LOC: 4MS4W 10:28 → 3SCARD 22:28 → 4MS4W 04-25 21:18 → 3SCARD 04-25 21:25 → 4MS4W 04-25 21:51
PROVIDERS: ADMIT Family Medicine; ATTEND Family Medicine
PROC: 0JBR0ZZ Excision of Left Foot Subcutaneous Tissue and Fascia, Open Approach (ICD-10-PCS; principal; 2019-04-23)
PROC: 02HV33Z Insertion of Infusion Device into Superior Vena Cava, Percutaneous Approach (ICD-10-PCS; 2019-04-27)
DX: E11.69 Type 2 diabetes mellitus with other specified complication (principal); D68.2 Hereditary deficiency of other clotting factors; M86.10 Other acute osteomyelitis, unspecified site; J44.1 Chronic obstructive pulmonary disease with (acute) exacerbation; I50.22 Chronic systolic (congestive) heart failure; I13.0 Hypertensive heart and chronic kidney disease with heart failure and stage 1 through stage 4 chronic kidney disease, or unspecified chronic kidney disease; E11.621 Type 2 diabetes mellitus with foot ulcer; E11.51 Type 2 diabetes mellitus with diabetic peripheral angiopathy without gangrene; N17.0 Acute kidney failure with tubular necrosis; E11.22 Type 2 diabetes mellitus with diabetic chronic kidney disease; E11.65 Type 2 diabetes mellitus with hyperglycemia; L97.529 Non-pressure chronic ulcer of other part of left foot with unspecified severity; N18.3 Chronic kidney disease, stage 3 (moderate); D64.9 Anemia, unspecified; E78.5 Hyperlipidemia, unspecified; F32.9 Major depressive disorder, single episode, unspecified; F41.9 Anxiety disorder, unspecified; I25.10 Atherosclerotic heart disease of native coronary artery without angina pectoris; I25.2 Old myocardial infarction; I99.8 Other disorder of circulatory system; J44.9 Chronic obstructive pulmonary disease, unspecified; R77.9 Abnormality of plasma protein, unspecified; Z59.0 Homelessness; B95.8 Unspecified staphylococcus as the cause of diseases classified elsewhere; B96.89 Other specified bacterial agents as the cause of diseases classified elsewhere; Z79.02 Long term (current) use of antithrombotics/antiplatelets; Z79.4 Long term (current) use of insulin; Z79.899 Other long term (current) drug therapy; Z88.8 Allergy status to other drugs, medicaments and biological substances; Z91.018 Allergy to other foods; Z95.5 Presence of coronary angioplasty implant and graft; Z95.1 Presence of aortocoronary bypass graft; Z91.11 Patient's noncompliance with dietary regimen; Z87.891 Personal history of nicotine dependence; Z86.73 Personal history of transient ischemic attack (TIA), and cerebral infarction without residual deficits; Z86.718 Personal history of other venous thrombosis and embolism; Z87.01 Personal history of pneumonia (recurrent); Z98.51 Tubal ligation status; Z82.49 Family history of ischemic heart disease and other diseases of the circulatory system; Z82.5 Family history of asthma and other chronic lower respiratory diseases; Z85.9 Personal history of malignant neoplasm, unspecified
CPT/HCPCS: 36573; 71046; 76770; 80048; 80053; 84484; 85025; 87070; 87075; 87077; 87186; 87205

== ENCOUNTER 2019-05-29 20:51 | Inpatient (IN) | payer MEDICARE, OTHER ==
[2019-05-29] MEDS ORDERED: SODIUM CHLORIDE 0.9% 1,000 ML IV STA (21:24)
[2019-05-29] MEDS ORDERED: ASPIRIN 81 MG PO STA (21:24)
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
--- NOTE | 2019-05-29 22:14 | XR ---
EXAM: XR Chest, 2 Views CLINICAL HISTORY: ITS.REASON XR Reason: Chest Pain TECHNIQUE: Frontal and lateral views of the chest. COMPARISON: 04/22/19 IMPRESSION: Cardiomegaly. Mild vascular congestion. No pleural effusion or opacification. Right- sided central line is again seen.
[2019-05-29 23:01] LABS: Anisocytosis Slight; Basophils % (A) 0 %; Eosinophils # (A) 0.3 k/uL (0-0.7); Eosinophils % (A) 2 %; HCT 29.9 % (34.0-46.0); Lymphocytes # (A) 2.1 k/uL (1.0-4.8); Lymphocytes % (A) 15 %; MCH 25.1 pg (25.0-35.0); MCHC 33.4 g/dL (31.0-37.0); MCV 75.2 fL (80.0-100.0); Mean Platelet Volume 7.2; Microcytosis Moderate; Monocytes # (A) 0.5 k/uL (0-1.0); Monocytes % (A) 4 %; Neutrophils # (A) 10.5 k/uL (1.3-7.7); Neutrophils % (A) 77 %; Platelet Count 415 k/uL (150-450); RBC 3.98 m/uL (3.80-5.40); RDW 17.8 % (11.5-15.5); WBC 13.6 k/uL (3.8-10.6)
[2019-05-29 23:28] LABS: Albumin 2.6 g/dL (3.5-5.0); Calcium 8.9 mg/dL (8.4-10.2); Magnesium 1.6 mg/dL (1.6-2.3); Potassium 4.5 mmol/L (3.5-5.1); Total Bilirubin 0.4 mg/dL (0.2-1.3); Total Protein 5.3 g/dL (6.3-8.2)
[2019-05-30] MEDS ORDERED: FUROSEMIDE 10 MG/ML 4 ML VIAL IV STA (00:40)
[2019-05-30] MEDS: HYDROcodone/APAP 5-325MG 1 EACH TAB PO PRN ×4 (01:20→20:21)
[2019-05-30] MEDS: FUROSEMIDE 10 MG/ML 4 ML VIAL IV SCH ×3 (04:09→17:08)
[2019-05-30 06:13] LABS: Glucose,Whole Blood 191 mg/dL (75-99)
[2019-05-30] MEDS: INSULIN ASPART (NovoLOG) 100 UNIT/ML VIAL SQ SCH ×4 (06:24→21:12)
[2019-05-30] MEDS: PANTOPRAZOLE 40 MG TABLET PO SCH (06:25)
[2019-05-30] MEDS ORDERED: CARVEDILOL 12.5 MG TAB PO SCH (07:30)
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
[2019-05-30] MEDS: SACUBITRIL/VALSARTAN 24 MG-26 MG TABLET PO SCH ×2 (09:32→20:22)
[2019-05-30] MEDS: PREGABALIN 75 MG CAP PO SCH ×2 (09:32→20:21)
[2019-05-30] MEDS: CLOPIDOGREL 75 MG TAB PO SCH (09:32)
[2019-05-30] MEDS: hydrALAZINE HCL 50 MG TAB PO SCH ×3 (09:32→20:21)
[2019-05-30] MEDS: NIFEdipine XL 90 MG TAB.ER.24 PO SCH (11:05)
[2019-05-30] MEDS: ISOSORBIDE MONONITRATE ER 30 MG TAB.ER.24H PO SCH (11:05)
[2019-05-30 11:45] LABS: Glucose,Whole Blood 150 mg/dL (75-99)
[2019-05-30] MEDS: NADOLOL 20 MG TAB PO SCH (12:33)
[2019-05-30 16:55] LABS: Glucose,Whole Blood 258 mg/dL (75-99)
[2019-05-30] MEDS: IPRATROPIUM-ALBUTEROL 3 ML NEB INHALATION PRN (20:15)
[2019-05-30 21:03] LABS: Glucose,Whole Blood 117 mg/dL (75-99)
[2019-05-30] MEDS: INSULIN DETEMIR (LEVEMIR) 100 UNIT/ML SYR SQ SCH (21:16)
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
[2019-05-31] MEDS: HYDROcodone/APAP 5-325MG 1 EACH TAB PO PRN ×3 (02:08→17:21)
[2019-05-31] MEDS: FUROSEMIDE 10 MG/ML 4 ML VIAL IV SCH ×2 (02:10→08:40)
[2019-05-31 05:53] LABS: Glucose,Whole Blood 138 mg/dL (75-99)
[2019-05-31] MEDS: INSULIN ASPART (NovoLOG) 100 UNIT/ML VIAL SQ SCH ×7 (05:55→22:20)
[2019-05-31] MEDS: PANTOPRAZOLE 40 MG TABLET PO SCH (06:15)
[2019-05-31 07:35] LABS: Anisocytosis Slight; Basophils % (A) 0 %; Eosinophils # (A) 0.3 k/uL (0-0.7); Eosinophils % (A) 3 %; Hypochromasia Slight; Lymphocytes # (A) 2.2 k/uL (1.0-4.8); Lymphocytes % (A) 21 %; MCH 25.4 pg (25.0-35.0); MCHC 33.3 g/dL (31.0-37.0); MCV 76.3 fL (80.0-100.0); Mean Platelet Volume 7.5; Microcytosis Slight; Monocytes # (A) 0.5 k/uL (0-1.0); Monocytes % (A) 5 %; Neutrophils # (A) 7.2 k/uL (1.3-7.7); Neutrophils % (A) 69 %; Platelet Count 368 k/uL (150-450); RBC 3.54 m/uL (3.80-5.40); RDW 17.5 % (11.5-15.5); WBC 10.4 k/uL (3.8-10.6)
[2019-05-31 07:48] LABS: Calcium 8.5 mg/dL (8.4-10.2); Potassium 4.7 mmol/L (3.5-5.1)
[2019-05-31] MEDS: NIFEdipine XL 90 MG TAB.ER.24 PO SCH (08:40)
[2019-05-31] MEDS: CLOPIDOGREL 75 MG TAB PO SCH (08:40)
[2019-05-31] MEDS: hydrALAZINE HCL 50 MG TAB PO SCH ×3 (08:41→21:37)
[2019-05-31] MEDS: PREGABALIN 75 MG CAP PO SCH ×2 (08:41→21:37)
[2019-05-31] MEDS: NADOLOL 20 MG TAB PO SCH (08:45)
[2019-05-31] MEDS: SACUBITRIL/VALSARTAN 24 MG-26 MG TABLET PO SCH ×2 (08:45→21:37)
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
--- NOTE | 2019-05-31 11:41 | P.PN ---
Subjective Progress Note Date: 05/31/19 This is a 49-year-old -[place] female with past medical history significant for coronary artery disease with prior bypass surgery performed in [place], history of congestive heart failure diastolic in nature, hypertension, diabetes, hyperlipidemia, history of critical limb ischemia, prior TIA, history of DVT, COPD history, lupus, who was most recently in the hospital in March of this year, presented to the hospital with symptoms of progressively worsening shortness of breath associated chest heaviness. Chest x-ray was performed on admission here which showed cardiomegaly with mild vascular congestion, no pleural effusion noted. EKG showed normal sinus rhythm with right bundle branch block pattern and left posterior fascicular block. Blood pressure on arrival here 190/110, heart rate 107, 96% on room air. Blood pressure this morning 164/78 with a heart rate in the 90s, 98% on 3 L of oxygen. White blood cell count 13.6, hemoglobin 10.0, platelet count 4:15. Sodium 141, potassium 4.5, BUN 25 and creatinine 1.3. Magnesium 1.6. Troponin 0.042. BNP level 13,100. Patient was initiated on IV Lasix in the emergency room, she has diuresed well through the night last night. At the time of my examination this morning, patient is quite sleepy, lying flat in bed at the time of my examination. 05/31/2019 Patient was seen and examined this morning, overall diuresed significant amount on IV Lasix. Her blood pressure today is significantly improved at 110/60.BUN today is 29 with a creatinine of 2.0, up from 1.3 yesterday. We will discontinue the IV Lasix today, check her labs in the morning. If creatinine continues to be elevated we may consider discontinuing the Entresto tomorrow. Objective - Vital Signs Vital signs: Vital Signs Temp 97.6 F 05/31/19 08:00 Pulse 67 05/31/19 08:00 Resp 18 05/31/19 08:00 BP 110/55 05/31/19 08:00 Pulse Ox 96 05/31/19 08:00 Intake & Output 05/30/19 05/31/19 05/31/19 18:59 06:59 18:59 Intake Total 840 240 300 Output Total 1200 Balance -360 240 300 Weight 105.7 kg 107.5 kg Intake: Oral 840 240 300 Output: Urine 1200 Other: # Voids 0 3 - Exam PHYSICAL EXAMINATION: GENERAL: 49-year-old -[place] female in no acute distress at the time of my examination HEENT: Head is atraumatic, normocephalic. Pupils equal, round. Sclera anicteric. Conjunctiva are clear. Mucous membranes of the mouth are moist. Neck is supple. There is no elevated jugular venous pressure. No carotid bruit is heard. HEART EXAMINATION: Heart S1, S2 normal. No murmur or gallop heard. CHEST EXAMINATION: His reveal diminished air entry to bilateral bases ABDOMEN: Soft, nontender. Bowel sounds are heard. No organomegaly noted. EXTREMITIES: 1+ peripheral pulses bilaterally, small lateral ulceration noted, bilateral edema noted.. NEUROLOGIC patient is awake, alert and oriented 3 . . - Labs CBC & Chem 7: 05/31/19 06:20 05/31/19 06:20 Labs: Abnormal Lab Results - Last 24 Hours (Table) 05/30/19 05/30/19 05/30/19 Range/Units 11:36 16:51 21:02 RBC (3.80-5.40) m/uL Hgb (11.4-16.0) gm/dL Hct (34.0-46.0) % MCV (80.0-100.0) fL RDW (11.5-15.5) % Chloride (98-107) mmol/L BUN (7-17) mg/dL Creatinine (0.52-1.04) mg/dL Glucose (74-99) mg/dL POC Glucose (mg/dL) 150 H 258 H 117 H (75-99) mg/dL 05/31/19 05/31/19 05/31/19 Range/Units 05:52 06:20 06:20 RBC 3.54 L (3.80-5.40) m/uL Hgb 9.0 L (11.4-16.0) gm/dL Hct 27.0 L (34.0-46.0) % MCV 76.3 L (80.0-100.0) fL RDW 17.5 H (11.5-15.5) % Chloride 111 H (98-107) mmol/L BUN 29 H (7-17) mg/dL Creatinine 2.04 H (0.52-1.04) mg/dL Glucose 121 H (74-99) mg/dL POC Glucose (mg/dL) 138 H (75-99) mg/dL Assessment and Plan Plan: Assessment and plan #1 diastolic congestive heart failure acute on chronic. Most recent echocardiogram with Doppler study was performed in March of this year which revealed an ejection fraction of 55-60%, mild to moderate mitral regurgitation. #2 coronary artery disease with prior bypass surgery #3 PAD with prior intervention #4 hypertension Number 5 hyperlipidemia #6 diabetes #7 COPD #8 acute on chronic renal insufficiency #9 anemia, chronic #10 abnormality in troponin, patient is noted to have similar abnormality in March . Plan we will discontinue the IV Lasix today, check lytes BUN and creatinine in the morning. DNP note has been reviewed, I agree with a documented findings and plan of care. Patient was seen and examined.
[2019-05-31 12:23] LABS: Glucose,Whole Blood 159 mg/dL (75-99)
[2019-05-31] MEDS: ISOSORBIDE MONONITRATE ER 30 MG TAB.ER.24H PO SCH (12:23)
--- NOTE | 2019-05-31 15:31 | PN ---
PROGRESS NOTE DATE OF SERVICE: 05/31/2019 REASON FOR FOLLOWUP: 1. Left foot wound. 2. Possible colitis with medical history of coronary artery disease: INTERVAL HISTORY: The patient remains to be afebrile. The patient denies any chest pain, shortness of breath. No confusion. Denies any abdominal pain. Denies any diarrhea with small bowel movement. No orthopedics to the left foot area. PHYSICAL EXAMINATION: Blood pressure 114/55 with a pulse of 75, temperature is 97.6. He is 95% on room air. General description is a middle aged female, lying in bed in no distress. RESPIRATORY SYSTEM: Unlabored breathing, clear to auscultation anteriorly. HEART: S1, S2. Regular rate and rhythm. ABDOMEN: Soft, no tenderness. EXTREMITIES: Left foot wound, continue the dressing. LABS: Hemoglobin of 9, white count of 10.4, BUN of 29, creatinine 2.04. DIAGNOSTIC IMPRESSION/PLAN: 1. Patient with recent diagnosis of Clostridium difficile colitis that has been adequately treated. Currently having small bowel movements. :No need for further vancomycin at this point. Patient advised to continue increase probiotic intake. 2. Left foot wound. Local wound care with Medihoney, to be changed daily. 3. Leukocytosis, possibly reactive, already normalized. Will monitor the clinical course closely. Continue supportive care. MMODL / IJN: [id number] /
[2019-05-31 17:01] LABS: Glucose,Whole Blood 80 mg/dL (75-99)
[2019-05-31 18:51] LABS: Glucose,Whole Blood 183 mg/dL (75-99)
[2019-05-31 21:06] LABS: Glucose,Whole Blood 89 mg/dL (75-99)
[2019-05-31] MEDS: INSULIN DETEMIR (LEVEMIR) 100 UNIT/ML SYR SQ SCH (22:20)
[2019-06-01 02:19] LABS: Glucose,Whole Blood 150 mg/dL (75-99)
[2019-06-01] MEDS: HYDROcodone/APAP 5-325MG 1 EACH TAB PO PRN ×2 (04:54→17:38)
[2019-06-01] MEDS: PANTOPRAZOLE 40 MG TABLET PO SCH (04:55)
[2019-06-01 06:35] LABS: Glucose,Whole Blood 140 mg/dL (75-99)
[2019-06-01] MEDS: INSULIN ASPART (NovoLOG) 100 UNIT/ML VIAL SQ SCH ×7 (07:01→21:00)
[2019-06-01 07:08] LABS: Anisocytosis Slight; Basophils % (A) 0 %; Eosinophils # (A) 0.3 k/uL (0-0.7); Eosinophils % (A) 3 %; HCT 28.3 % (34.0-46.0); HGB 9.2 gm/dL (11.4-16.0); Lymphocytes # (A) 1.6 k/uL (1.0-4.8); Lymphocytes % (A) 14 %; MCH 25.1 pg (25.0-35.0); MCHC 32.5 g/dL (31.0-37.0); MCV 77.1 fL (80.0-100.0); Mean Platelet Volume 7.1; Microcytosis Slight; Monocytes # (A) 0.5 k/uL (0-1.0); Monocytes % (A) 4 %; Neutrophils # (A) 9.5 k/uL (1.3-7.7); Neutrophils % (A) 78 %; Platelet Count 384 k/uL (150-450); RBC 3.67 m/uL (3.80-5.40); RDW 17.7 % (11.5-15.5); WBC 12.1 k/uL (3.8-10.6)
[2019-06-01 07:22] LABS: Potassium 4.7 mmol/L (3.5-5.1)
[2019-06-01] MEDS: hydrALAZINE HCL 50 MG TAB PO SCH ×3 (10:04→20:51)
[2019-06-01] MEDS: NADOLOL 20 MG TAB PO SCH (10:04)
[2019-06-01] MEDS: NIFEdipine XL 90 MG TAB.ER.24 PO SCH (10:05)
[2019-06-01] MEDS: SACUBITRIL/VALSARTAN 24 MG-26 MG TABLET PO SCH (10:06)
[2019-06-01] MEDS: PREGABALIN 75 MG CAP PO SCH ×2 (10:20→20:51)
[2019-06-01] MEDS: CLOPIDOGREL 75 MG TAB PO SCH (10:20)
[2019-06-01 12:10] LABS: Glucose,Whole Blood 68 mg/dL (75-99)
--- NOTE | 2019-06-01 12:15 | P.PN ---
Subjective Progress Note Date: 05/31/19 This is a 49-year-old female with recent multiple admissions admitted with chest pressure/heaviness, difficulty breathing, tachypneic ,chronic left foot wound with underlying Serratia marcescens, coagulase-negative staph, recent C. difficile colitis in a patient with extensive medical history including CAD, CABG, CHF, PAD, hypertension, hyperlipidemia, uncontrolled diabetes mellitus, COPD, TIA, critical limb ischemia, DVT, lupus and multiple other medical issues. Hypertensive , blood pressure 190/110, heart rate 107 on admission, maintaining O2 sats of 97% on 3 L nasal cannula. Chest x-ray suggestive of pulmonary vascular congestion EKG reported normal sinus rhythm with right bundle branch/bifascicular block. Troponin 0.042, BNP 13,100. Creatinine 1.36( baseline 1.02). Magnesium 1.6. Patient was started on IV Lasix with Coreg increased. Cardiology and infectious disease consulted. Denies chest pain, palpitations. 05/31/2019 diuresing well on Lasix IV push with 24-hour I&O reflecting a negative fluid balance. Renal function worsening, up to 2.04. Blood pressure improved. Maintaining O2 sats in the mid 90s on room air. Denies chest pain, palpitations. Objective - Vital Signs Vital signs: Vital Signs Temp 97.6 F 05/31/19 08:00 Pulse 67 05/31/19 08:00 Resp 18 05/31/19 08:00 BP 110/55 05/31/19 08:00 Pulse Ox 96 05/31/19 08:00 Intake & Output 05/30/19 05/31/19 05/31/19 18:59 06:59 18:59 Intake Total 840 240 300 Output Total 1200 Balance -360 240 300 Weight 105.7 kg 107.5 kg Intake: Oral 840 240 300 Output: Urine 1200 Other: # Voids 0 3 - Exam VITAL SIGNS: As above GENERAL: Sitting up in bed, no acute distress HEENT: Conjunctivae normal. eyes normal. NECK: No JVD. No thyroid enlargement. No LNs CARDIOVASCULAR: S1, S2 regular.. No murmur RESPIRATION: Breath sounds diminished in the bases. No rhonchi, fine bibasilar crackles. No wheezing. ABDOMEN: Soft, nontender . No guarding. no masses palpable. No ascites, No hepatosplenomegaly.Positive Bowel sounds. LEGS: Improving edema. Left foot dressing clean dry and intact PSYCHIATRY: Alert and oriented X3, mood and affect normal. NERVOUS SYSTEM: Cranial N 2-12 grossly normal. Moves all 4 limbs. Diffuse weakness No focal deficits. Strength and sensation grossly intact.. Skin: No rash. Warm and dry. Lymphatic system. No LN neck axilla or groin. - Labs CBC & Chem 7: 06/01/19 06:53 06/01/19 06:53 Labs: Abnormal Lab Results - Last 24 Hours (Table) 05/30/19 05/30/19 05/30/19 Range/Units 11:36 16:51 21:02 RBC (3.80-5.40) m/uL Hgb (11.4-16.0) gm/dL Hct (34.0-46.0) % MCV (80.0-100.0) fL RDW (11.5-15.5) % Chloride (98-107) mmol/L BUN (7-17) mg/dL Creatinine (0.52-1.04) mg/dL Glucose (74-99) mg/dL POC Glucose (mg/dL) 150 H 258 H 117 H (75-99) mg/dL 05/31/19 05/31/19 05/31/19 Range/Units 05:52 06:20 06:20 RBC 3.54 L (3.80-5.40) m/uL Hgb 9.0 L (11.4-16.0) gm/dL Hct 27.0 L (34.0-46.0) % MCV 76.3 L (80.0-100.0) fL RDW 17.5 H (11.5-15.5) % Chloride 111 H (98-107) mmol/L BUN 29 H (7-17) mg/dL Creatinine 2.04 H (0.52-1.04) mg/dL Glucose 121 H (74-99) mg/dL POC Glucose (mg/dL) 138 H (75-99) mg/dL Assessment and Plan Assessment: -Acute on chronic CHF, diastolic dysfunction EF 55-60% -Mild to moderate mitral regurgitation -Acute on chronic renal failure, stage III. -Chronic Left foot dorsum wound with underlying Serratia marcescens,Coagulase Negative Staph,Diphtheroid species secondary to underlying osteomyelitis, PAD, DM. -Mild leukocytosis, possibly reactive -Recent C. difficile colitis, completed treatment as per ID. -CAD, history of CABG -Hypertension -Hyperlipidemia -PAD -Diabetes mellitus -COPD -abnormal troponin, similar in March, cardiology following. -anemia of chronic disease With history of factor V deficiency -History of CVA with no residual Plan: Continue current medication regime ,monitoring and symptomatic treatment. IV Lasix discontinued. Maintain fluid restrictions. Close monitoring of renal function with repeat labs in a.m. Local wound care as per ID. Case management assisting with discharge plans. Further recommendations to follow. The impression and plan of care has been dictated as directed. : I performed a history and examination of this patient, discussed the same with the dictator. I agree with the dictator's note ,documented as a scribe. Any additional findings or plans will be noted.
--- NOTE | 2019-06-01 12:22 | P.PN ---
Subjective Progress Note Date: 06/01/19 This is a 49-year-old -[place] female with past medical history significant for coronary artery disease with prior bypass surgery performed in [place], history of congestive heart failure diastolic in nature, hypertension, diabetes, hyperlipidemia, history of critical limb ischemia, prior TIA, history of DVT, COPD history, lupus, who was most recently in the hospital in March of this year, presented to the hospital with symptoms of progressively worsening shortness of breath associated chest heaviness. Chest x-ray was performed on admission here which showed cardiomegaly with mild vascular congestion, no pleural effusion noted. EKG showed normal sinus rhythm with right bundle branch block pattern and left posterior fascicular block. Blood pressure on arrival here 190/110, heart rate 107, 96% on room air. Blood pressure this morning 164/78 with a heart rate in the 90s, 98% on 3 L of oxygen. White blood cell count 13.6, hemoglobin 10.0, platelet count 4:15. Sodium 141, potassium 4.5, BUN 25 and creatinine 1.3. Magnesium 1.6. Troponin 0.042. BNP level 13,100. Patient was initiated on IV Lasix in the emergency room, she has diuresed well through the night last night. At the time of my examination this morning, patient is quite sleepy, lying flat in bed at the time of my examination. 05/31/2019 Patient was seen and examined this morning, overall diuresed significant amount on IV Lasix. Her blood pressure today is significantly improved at 110/60.BUN today is 29 with a creatinine of 2.0, up from 1.3 yesterday. We will discontinue the IV Lasix today, check her labs in the morning. If creatinine continues to be elevated we may consider discontinuing the Entresto tomorrow. 06/01/2019 Patient was seen and examined this morning, she is refusing to take her antihypertensive medications. I pressure this morning 124/66 with a heart rate in the 60s, 93% on 3 L of oxygen. White blood cell count 12.1, hemoglobin 9.2, platelet count 384, sodium 139, potassium 4.7, BUN 37 and creatinine 2.4. Because of the rising creatinine again today we'll discontinue the patient's Entresto. Objective - Vital Signs Vital signs: Vital Signs Temp 98.3 F 06/01/19 08:00 Pulse 69 06/01/19 08:00 Resp 20 06/01/19 08:00 BP 99/62 06/01/19 08:00 Pulse Ox 99 06/01/19 08:00 Intake & Output 05/31/19 06/01/19 06/01/19 18:59 06:59 18:59 Intake Total 900 Output Total 700 Balance 900 -700 Weight 107.9 kg Intake: Oral 900 Output: Urine 700 Other: Voiding Method Toilet Toilet # Voids 1 - Exam PHYSICAL EXAMINATION: GENERAL: 49-year-old -[place] female in no acute distress at the time of my examination HEENT: Head is atraumatic, normocephalic. Pupils equal, round. Sclera anicteri c. Conjunctiva are clear. Mucous membranes of the mouth are moist. Neck is supple. There is no elevated jugular venous pressure. No carotid bruit is heard. HEART EXAMINATION: Heart S1, S2 normal. No murmur or gallop heard. CHEST EXAMINATION: His reveal diminished air entry to bilateral bases ABDOMEN: Soft, nontender. Bowel sounds are heard. No organomegaly noted. EXTREMITIES: 1+ peripheral pulses bilaterally, small lateral ulceration noted, bilateral edema noted.. NEUROLOGIC patient is awake, alert and oriented 3 . . - Labs CBC & Chem 7: 06/01/19 06:53 06/01/19 06:53 Labs: Abnormal Lab Results - Last 24 Hours (Table) 05/31/19 05/31/19 06/01/19 Range/Units 12:16 18:30 02:18 WBC (3.8-10.6) k/uL RBC (3.80-5.40) m/uL Hgb (11.4-16.0) gm/dL Hct (34.0-46.0) % MCV (80.0-100.0) fL RDW (11.5-15.5) % Neutrophils # (1.3-7.7) k/uL Chloride (98-107) mmol/L Carbon Dioxide (22-30) mmol/L BUN (7-17) mg/dL Creatinine (0.52-1.04) mg/dL Glucose (74-99) mg/dL POC Glucose (mg/dL) 159 H 183 H 150 H (75-99) mg/dL Calcium (8.4-10.2) mg/dL 06/01/19 06/01/19 06/01/19 Range/Units 06:33 06:53 06:53 WBC 12.1 H (3.8-10.6) k/uL RBC 3.67 L (3.80-5.40) m/uL Hgb 9.2 L (11.4-16.0) gm/dL Hct 28.3 L (34.0-46.0) % MCV 77.1 L (80.0-100.0) fL RDW 17.7 H (11.5-15.5) % Neutrophils # 9.5 H (1.3-7.7) k/uL Chloride 111 H (98-107) mmol/L Carbon Dioxide 21 L (22-30) mmol/L BUN 37 H (7-17) mg/dL Creatinine 2.42 H (0.52-1.04) mg/dL Glucose 128 H (74-99) mg/dL POC Glucose (mg/dL) 140 H (75-99) mg/dL Calcium 8.0 L (8.4-10.2) mg/dL 06/01/19 Range/Units 12:06 WBC (3.8-10.6) k/uL RBC (3.80-5.40) m/uL Hgb (11.4-16.0) gm/dL Hct (34.0-46.0) % MCV (80.0-100.0) fL RDW (11.5-15.5) % Neutrophils # (1.3-7.7) k/uL Chloride (98-107) mmol/L Carbon Dioxide (22-30) mmol/L BUN (7-17) mg/dL Creatinine (0.52-1.04) mg/dL Glucose (74-99) mg/dL POC Glucose (mg/dL) 68 L (75-99) mg/dL Calcium (8.4-10.2) mg/dL Assessment and Plan Plan: Assessment and plan #1 diastolic congestive heart failure acute on chronic. Most recent echocardiogram with Doppler study was performed in March of this year which revealed an ejection fraction of 55-60%, mild to moderate mitral regurgitation. #2 coronary artery disease with prior bypass surgery #3 PAD with prior intervention #4 hypertension Number 5 hyperlipidemia #6 diabetes #7 COPD #8 acute on chronic renal insufficiency #9 anemia, chronic #10 abnormality in troponin, patient is noted to have similar abnormality in March. Plan We will continue to hold the Lasix today, discontinue the Entresto. DNP note has been reviewed, I agree with a documented findings and plan of care. Patient was seen and examined.
[2019-06-01] MEDS: ISOSORBIDE MONONITRATE ER 30 MG TAB.ER.24H PO SCH (12:37)
[2019-06-01 12:38] LABS: Glucose,Whole Blood 82 mg/dL (75-99)
--- NOTE | 2019-06-01 15:37 | P.PN ---
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 difficile colitis in a patient with extensive medical history including CAD, CABG, CHF, PAD, hypertension, hyperlipidemia, uncontrolled diabetes mellitus, COPD, TIA, critical limb ischemia, DVT, lupus and multiple other medical issues. Hypertensive , blood pressure 190/110, heart rate 107 on admission, maintaining O2 sats of 97% on 3 L nasal cannula. Chest x-ray suggestive of pulmonary vascular congestion EKG reported normal sinus rhythm with right bundle branch/bifascicular block. Troponin 0.042, BNP 13,100. Creatinine 1.36( baseline 1.02). Magnesium 1.6. Patient was started on IV Lasix with Coreg increased. Cardiology and infectious disease consulted. Denies chest pain, palpitations. 05/31/2019 diuresing well on Lasix IV push with 24-hour I&O reflecting a negative fluid balance. Renal function worsening, up to 2.04. Blood pressure improved. Maintaining O2 sats in the mid 90s on room air. Denies chest pain, palpitations. 06/01/2019 diuretics discontinued yesterday secondary to worsening renal function. Creatinine continues to worsen, 2.42. Cardiology discussing potential DC of Entresto. Fluctuates on oxygen needs between room air and 3 li ters NC. Currently maintaining O2 sats in the mid 90s on 3 L nasal cannula. T- max 99. Patient is refusing medications, meals this morning, Objective - Vital Signs Vital signs: Vital Signs Temp 98.3 F 06/01/19 08:00 Pulse 69 06/01/19 08:00 Resp 20 06/01/19 08:00 BP 99/62 06/01/19 08:00 Pulse Ox 99 06/01/19 08:00 Intake & Output 05/31/19 06/01/19 06/01/19 18:59 06:59 18:59 Intake Total 900 Output Total 700 Balance 900 -700 Weight 107.9 kg Intake: Oral 900 Output: Urine 700 Other: Voiding Method Toilet Toilet # Voids 1 - Exam VITAL SIGNS: As above GENERAL: Sitting up in bed, no acute distress HEENT: Conjunctivae normal. eyes normal. Oral mucosa moist. NECK: No JVD. No thyroid enlargement. No LNs CARDIOVASCULAR: S1, S2 regular. No murmurs, no gallops, no rubs. RESPIRATION: Breath sounds diminished in the bases. No rhonchi, fine bibasilar crackles. No wheezing. ABDOMEN: Soft, nontender . No guarding. no masses palpable. No ascites, No hepatosplenomegaly.Positive Bowel sounds. LEGS: Improving edema with left foot dressing clean dry and intact PSYCHIATRY: Alert and oriented X3, mood and affect normal. NERVOUS SYSTEM: Cranial N 2-12 grossly normal. Moves all 4 limbs. Diffuse weakness No focal deficits. Strength and sensation grossly intact. Skin: No rash. Warm and dry. - Labs CBC & Chem 7: 06/01/19 06:53 06/01/19 06:53 Labs: Abnormal Lab Results - Last 24 Hours (Table) 05/31/19 05/31/19 06/01/19 Range/Units 12:16 18:30 02:18 WBC (3.8-10.6) k/uL RBC (3.80-5.40) m/uL Hgb (11.4-16.0) gm/dL Hct (34.0-46.0) % MCV (80.0-100.0) fL RDW (11.5-15.5) % Neutrophils # (1.3-7.7) k/uL Chloride (98-107) mmol/L Carbon Dioxide (22-30) mmol/L BUN (7-17) mg/dL Creatinine (0.52-1.04) mg/dL Glucose (74-99) mg/dL POC Glucose (mg/dL) 159 H 183 H 150 H (75-99) mg/dL Calcium (8.4-10.2) mg/dL 06/01/19 06/01/19 06/01/19 Range/Units 06:33 06:53 06:53 WBC 12.1 H (3.8-10.6) k/uL RBC 3.67 L (3.80-5.40) m/uL Hgb 9.2 L (11.4-16.0) gm/dL Hct 28.3 L (34.0-46.0) % MCV 77.1 L (80.0-100.0) fL RDW 17.7 H (11.5-15.5) % Neutrophils # 9.5 H (1.3-7.7) k/uL Chloride 111 H (98-107) mmol/L Carbon Dioxide 21 L (22-30) mmol/L BUN 37 H (7-17) mg/dL Creatinine 2.42 H (0.52-1.04) mg/dL Glucose 128 H (74-99) mg/dL POC Glucose (mg/dL) 140 H (75-99) mg/dL Calcium 8.0 L (8.4-10.2) mg/dL Assessment and Plan Assessment: -Acute on chronic CHF, diastolic dysfunction EF 55-60% -Mild to moderate mitral regurgitation -Acute on chronic renal failure, stage III. -Acute hypoxic respiratory failure secondary to all the above. -Chronic Left foot dorsum wound with underlying Serratia marcescens,Coagulase Negative Staph,Diphtheroid species secondary to underlying osteomyelitis, PAD, DM. -Mild leukocytosis, possibly reactive -Recent C. difficile colitis, completed treatment as per ID. -CAD, history of CABG -Hypertension -Hyperlipidemia -PAD -Diabetes mellitus -COPD -abnormal troponin, similar in March, cardiology following. -anemia of chronic disease With history of factor V deficiency -History of CVA with no residual Plan: Continue current medication regime ,monitoring and symptomatic treatment. Follow-up chest x-ray ordered. Continue fluid restrictions. Possible DC of Entresto as per Cardiology. Close monitoring of renal function with repeat labs in a.m. Further recommendations to follow. The impression and plan of care has been dictated as directed. : I performed a history and examination of this patient, discussed the same with the dictator. I agree with the dictator's note ,documented as a scribe. Any additional findings or plans will be noted.
--- NOTE | 2019-06-01 16:56 | PN ---
PROGRESS NOTE DATE OF SERVICE: 06/01/2019 REASON FOR FOLLOWUP: Left foot wound leukocytosis and history of C difficile colitis. INTERVAL HISTORY: The patient is currently afebrile. Still complaining of some shortness of breath. No chest pain. No cough. No nausea, vomiting or abdominal pain. Denies having any diarrhea bowel movement for the last 24 hours. No pain to the left foot area. PHYSICAL EXAMINATION: Blood pressure is 99/62 with a pulse of 69, temperature 98.3. She is 99% on 3 L nasal cannula. General description is a middle-aged female lying in bed in no distress. RESPIRATORY SYSTEM: Unlabored breathing. Clear to auscultation anteriorly. HEART: S1, S2. Regular rate and rhythm. ABDOMEN: Soft. No tenderness. EXTREMITIES: Trace edema of the feet. LABS: Hemoglobin 9.2, white count 12.1 with a BUN of 37, creatinine 0.42. DIAGNOSTIC IMPRESSION AND PLAN: 1. Patient admitted to hospital mostly with shortness of breath and chest pain, for which the patient is currently undergoing cardiac workup. No evidence of pneumonia. 2. Patient with a history of Clostridium difficile colitis, adequately treated, as the patient is currently not having any diarrhea. 3. Left foot wound. Local wound care to continue with Medihoney. Continue with supportive care. MMODL / IJN: [id number] /
[2019-06-01 17:16] LABS: Glucose,Whole Blood 153 mg/dL (75-99)
--- NOTE | 2019-06-01 19:30 | XR ---
EXAMINATION TYPE: XR chest 2V DATE OF EXAM: 06/01/2019 COMPARISON: 05/29/2019 HISTORY: Follow-up heart failure. Short of breath TECHNIQUE: Frontal and lateral views of the chest are obtained. FINDINGS: Heart is enlarged. There is mild pulmonary interstitial edema. There are chest leads. Ther e is slight blunting right costophrenic angle. There is right central venous catheter with the tip in the superior vena cava. IMPRESSION: Mild heart failure and small right pleural effusion slightly worse than last exam.
[2019-06-01 21:00] LABS: Glucose,Whole Blood 142 mg/dL (75-99)
[2019-06-01] MEDS: INSULIN DETEMIR (LEVEMIR) 100 UNIT/ML SYR SQ SCH (21:00)
[2019-06-02 01:50] LABS: Glucose,Whole Blood 128 mg/dL (75-99)
[2019-06-02] MEDS: HYDROcodone/APAP 5-325MG 1 EACH TAB PO PRN ×2 (02:00→09:07)
[2019-06-02 06:29] LABS: Glucose,Whole Blood 137 mg/dL (75-99)
[2019-06-02] MEDS: INSULIN ASPART (NovoLOG) 100 UNIT/ML VIAL SQ SCH ×7 (06:29→21:23)
[2019-06-02] MEDS: PANTOPRAZOLE 40 MG TABLET PO SCH (06:56)
[2019-06-02] MEDS: VANCOMYCIN ORAL SOLUTION 250 MG/5 ML BOTTLE PO SCH ×4 (07:01→23:07)
[2019-06-02] MEDS: CLOPIDOGREL 75 MG TAB PO SCH (09:06)
[2019-06-02] MEDS: NADOLOL 20 MG TAB PO SCH (09:06)
[2019-06-02] MEDS: NIFEdipine XL 90 MG TAB.ER.24 PO SCH (09:06)
[2019-06-02] MEDS: hydrALAZINE HCL 50 MG TAB PO SCH ×3 (09:07→21:25)
[2019-06-02] MEDS: PREGABALIN 75 MG CAP PO SCH ×2 (09:07→20:15)
--- NOTE | 2019-06-02 10:23 | P.PN ---
Subjective Progress Note Date: 06/02/19 This is a 49-year-old -[place] female with past medical history significant for coronary artery disease with prior bypass surgery performed in [place], history of congestive heart failure diastolic in nature, hypertension, diabetes, hyperlipidemia, history of critical limb ischemia, prior TIA, history of DVT, COPD history, lupus, who was most recently in the hospital in March of this year, presented to the hospital with symptoms of progressively worsening shortness of breath associated chest heaviness. Chest x-ray was performed on admission here which showed cardiomegaly with mild vascular congestion, no pleural effusion noted. EKG showed normal sinus rhythm with right bundle branch block pattern and left posterior fascicular block. Blood pressure on arrival here 190/110, heart rate 107, 96% on room air. Blood pressure this morning 164/78 with a heart rate in the 90s, 98% on 3 L of oxygen. White blood cell count 13.6, hemoglobin 10.0, platelet count 4:15. Sodium 141, potassium 4.5, BUN 25 and creatinine 1.3. Magnesium 1.6. Troponin 0.042. BNP level 13,100. Patient was initiated on IV Lasix in the emergency room, she has diuresed well through the night last night. At the time of my examination this morning, patient is quite sleepy, lying flat in bed at the time of my examination. 05/31/2019 Patient was seen and examined this morning, overall diuresed significant amount on IV Lasix. Her blood pressure today is significantly improved at 110/60.BUN today is 29 with a creatinine of 2.0, up from 1.3 yesterday. We will discontinue the IV Lasix today, check her labs in the morning. If creatinine continues to be elevated we may consider discontinuing the Entresto tomorrow. 06/01/2019 Patient was seen and examined this morning, she is refusing to take her antihypertensive medications. Blood pressure this morning 124/66 with a heart rate in the 60s, 93% on 3 L of oxygen. White blood cell count 12.1, hemoglobin 9.2, platelet count 384, sodium 139, potassium 4.7, BUN 37 and creatinine 2.4. Because of the rising creatinine again today we'll discontinue the patient's Entresto. 06/02/2019 Patient seen and examined this morning, blood pressure 120/60 with a heart rate in the 70s, 99% on 2 L of oxygen. Positive C. diff. Objective - Vital Signs Vital signs: Vital Signs Temp 98.8 F 06/02/19 08:00 Pulse 73 06/02/19 08:00 Resp 20 06/02/19 08:00 BP 119/67 06/02/19 08:00 Pulse Ox 99 06/02/19 08:00 Intake & Output 06/01/19 06/02/19 06/02/19 18:59 06:59 18:59 Weight 107.9 kg Other: Voiding Method Toilet Bedside Commode # Voids 1 - Exam PHYSICAL EXAMINATION: GENERAL: 49-year-old -[place] female in no acute distress at the time of my examination HEENT: Head is atraumatic, normocephalic. Pupils equal, round. Sclera anicteric. Conjunctiva are clear. Mucous membranes of the mouth are moist. Neck is supple. There is no elevated jugular venous pressure. No carotid bruit is heard. HEART EXAMINATION: Heart S1, S2 normal. No murmur or gallop heard. CHEST EXAMINATION: His reveal diminished air entry to bilateral bases ABDOMEN: Soft, nontender. Bowel sounds are heard. No organomegaly noted. EXTREMITIES: 1+ peripheral pulses bilaterally, small lateral ulceration noted, bilateral edema noted.. NEUROLOGIC patient is awake, alert and oriented 3 . . - Labs CBC & Chem 7: 06/01/19 06:53 06/01/19 06:53 Labs: Abnormal Lab Results - Last 24 Hours (Table) 06/01/19 06/01/19 06/01/19 Range/Units 12:06 17:14 20:59 POC Glucose (mg/dL) 68 L 153 H 142 H (75-99) mg/dL C. difficile (EIA) Intrp (Negative) 06/01/19 06/02/19 06/02/19 Range/Units 23:46 01:49 06:28 POC Glucose (mg/dL) 128 H 137 H (75-99) mg/dL C. difficile (EIA) Intrp Positive A (Negative) Assessment and Plan Plan: Assessment and plan #1 diastolic congestive heart failure acute on chronic. Most recent echocardiogram with Doppler study was performed in March of this year which revealed an ejection fraction of 55-60%, mild to moderate mitral regurgitation. #2 coronary artery disease with prior bypass surgery #3 PAD with prior intervention #4 hypertension Number 5 hyperlipidemia #6 diabetes #7 COPD #8 acute on chronic renal insufficiency #9 anemia, chronic #10 abnormality in troponin, patient is noted to have similar abnormality in March. Plan We have requested lytes BUN and creatinine be obtained, the creatinine yesterday was up to 2.4, continue to hold Lasix. DNP note has been reviewed, I agree with a documented findings and plan of care. Patient was seen and examined.
[2019-06-02 12:12] LABS: Glucose,Whole Blood 135 mg/dL (75-99)
[2019-06-02] MEDS: ISOSORBIDE MONONITRATE ER 30 MG TAB.ER.24H PO SCH (12:33)
--- NOTE | 2019-06-02 17:16 | PN ---
PROGRESS NOTE DATE OF SERVICE: 06/02/2019. REASON FOR FOLLOWUP: 1. C difficile colitis. 2. Left foot wound. INTERVAL HISTORY: The patient is afebrile. The patient did develop significant diarrhea last night and had 2 episodes this morning. Stool for C difficile was sent yesterday and came back positive. The patient denies having any worsening abdominal pain. Her breathing has improved. No pain to the left foot area. PHYSICAL EXAMINATION: Blood pressure is 127/61 with a pulse of 71, temperature 98.8. She is 95% on 2 L nasal cannula. General description is a middle-aged female lying in bed in no distress. RESPIRATORY SYSTEM: Unlabored breathing. Clear to auscultation anteriorly. HEART: S1, S2. Regular rate and rhythm. ABDOMEN: Soft. No tenderness. LABS: Stool for C difficile positive. No blood work was done today. DIAGNOSTIC IMPRESSION AND PLAN: 1. Patient admitted to hospital with difficulty in breathing and shortness of breath, for which the patient is currently being treated for underlying cardiac condition. The patient did have a history of Clostridium difficile colitis, for which she completed oral vancomycin. The patient was treated with no antibiotics, now with developing diarrhea. Stool for C difficile is positive. Plan at this time is to continue with oral vancomycin 250 p.o. q.6 hours and monitor her clinical course closely. 2. Left foot wound. Local wound care with Medihoney followed by moist dressing. No dressing. Continue supportive care. MMODL / IJN: [id number] /
[2019-06-02 17:26] LABS: Glucose,Whole Blood 191 mg/dL (75-99)
--- NOTE | 2019-06-02 17:59 | P.PN ---
Subjective Progress Note Date: 06/02/19 06/02/2019, patient seen eval reexamined during the rounds denies any chest pain shortness breath remains on 2 L stool is positive for C. diff, respiratory status stable she does get short of breath on minimal activity and exertion by complain labs reviewed medications reviewed Objective - Vital Signs Vital signs: Vital Signs Temp 97.5 F L 06/02/19 15:32 Pulse 65 06/02/19 15:32 Resp 20 06/02/19 15:32 BP 97/59 06/02/19 15:32 Pulse Ox 96 06/02/19 15:32 Intake & Output 06/01/19 06/02/19 06/02/19 18:59 06:59 18:59 Intake Total 100 Balance 100 Weight 107.9 kg Intake: Oral 100 Other: Voiding Method Toilet Bedside Commode # Voids 1 - Exam PHYSICAL EXAMINATION: GENERAL: 49-year-old -[place] female in no acute distress at the time of my examination HEENT: Head is atraumatic, normocephalic. Pupils equal, round. Sclera ani cteric. Conjunctiva are clear. Mucous membranes of the mouth are moist. Neck is supple. There is no elevated jugular venous pressure. No carotid bruit is heard. HEART EXAMINATION: Heart S1, S2 normal. No murmur or gallop heard. CHEST EXAMINATION: His reveal diminished air entry to bilateral bases ABDOMEN: Soft, nontender. Bowel sounds are heard. No organomegaly noted. EXTREMITIES: 1+ peripheral pulses bilaterally, small lateral ulceration noted, bilateral edema noted.. NEUROLOGIC patient is awake, alert and oriented 3 . - Labs CBC & Chem 7: 06/01/19 06:53 06/01/19 06:53 Labs: Abnormal Lab Results - Last 24 Hours (Table) 06/01/19 06/01/19 06/02/19 Range/Units 20:59 23:46 01:49 POC Glucose (mg/dL) 142 H 128 H (75-99) mg/dL C. difficile (EIA) Intrp Positive A (Negative) 06/02/19 06/02/19 06/02/19 Range/Units 06:28 11:59 17:23 POC Glucose (mg/dL) 137 H 135 H 191 H (75-99) mg/dL C. difficile (EIA) Intrp (Negative) Assessment and Plan Assessment: C. 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 difficile Maximal cardiac therapy Monitor renal functions closely Further recommendations pending plan of care as per clinical response of the patient Time with Patient: Greater than 30
[2019-06-02 21:23] LABS: Glucose,Whole Blood 175 mg/dL (75-99)
[2019-06-02] MEDS: INSULIN DETEMIR (LEVEMIR) 100 UNIT/ML SYR SQ SCH (21:24)
[2019-06-03 02:07] LABS: Glucose,Whole Blood 114 mg/dL (75-99)
[2019-06-03] MEDS: HYDROcodone/APAP 5-325MG 1 EACH TAB PO PRN ×2 (04:57→16:52)
[2019-06-03] MEDS: PANTOPRAZOLE 40 MG TABLET PO SCH (06:33)
[2019-06-03] MEDS: VANCOMYCIN ORAL SOLUTION 250 MG/5 ML BOTTLE PO SCH ×4 (06:33→23:22)
[2019-06-03] MEDS: INSULIN ASPART (NovoLOG) 100 UNIT/ML VIAL SQ SCH ×7 (06:43→21:55)
[2019-06-03 06:47] LABS: Glucose,Whole Blood 130 mg/dL (75-99)
[2019-06-03] MEDS: PREGABALIN 75 MG CAP PO SCH ×2 (08:23→20:43)
[2019-06-03] MEDS: CLOPIDOGREL 75 MG TAB PO SCH (08:23)
[2019-06-03] MEDS: NIFEdipine XL 90 MG TAB.ER.24 PO SCH (08:23)
[2019-06-03] MEDS: NADOLOL 20 MG TAB PO SCH (08:23)
[2019-06-03] MEDS: hydrALAZINE HCL 50 MG TAB PO SCH ×3 (08:23→21:52)
--- NOTE | 2019-06-03 11:43 | P.PN ---
Subjective Progress Note Date: 06/03/19 This is a 49-year-old -Ang[place] female with past medical history significant for coronary artery disease with prior bypass surgery performed in [place], history of congestive heart failure diastolic in nature, hypertension, diabetes, hyperlipidemia, history of critical limb ischemia, prior TIA, history of DVT, COPD history, lupus, who was most recently in the hospital in March of this year, presented to the hospital with symptoms of progressively worsening shortness of breath associated chest heaviness. Chest x-ray was performed on admission here which showed cardiomegaly with mild vascular congestion, no pleural effusion noted. EKG showed normal sinus rhythm with right bundle branch block pattern and left posterior fascicular block. Blood pressure on arrival here 190/110, heart rate 107, 96% on room air. Blood pressure this morning 164/78 with a heart rate in the 90s, 98% on 3 L of oxygen. White blood cell count 13.6, hemoglobin 10.0, platelet count 4:15. Sodium 141, potassium 4.5, BUN 25 and creatinine 1.3. Magnesium 1.6. Troponin 0.042. BNP level 13,100. Patient was initiated on IV Lasix in the emergency room, she has diuresed well through the night last night. At the time of my examination this morning, patient is quite sleepy, lying flat in bed at the time of my examination. 05/31/2019 Patient was seen and examined this morning, overall diuresed significant amount on IV Lasix. Her blood pressure today is significantly improved at 110/60.BUN today is 29 with a creatinine of 2.0, up from 1.3 yesterday. We will discontinue the IV Lasix today, check her labs in the morning. If creatinine continues to be elevated we may consider discontinuing the Entresto tomorrow. 06/01/2019 Patient was seen and examined this morning, she is refusing to take her antihypertensive medications. Blood pressure this morning 124/66 with a heart rate in the 60s, 93% on 3 L of oxygen. White blood cell count 12.1, hemoglobin 9.2, platelet count 384, sodium 139, potassium 4.7, BUN 37 and creatinine 2.4. Because of the rising creatinine again today we'll discontinue the patient's Entresto. 06/02/2019 Patient seen and examined this morning, blood pressure 120/60 with a heart rate in the 70s, 99% on 2 L of oxygen. Positive C. diff. 06/03/2019 Patient seen and examined this morning, hemodynamically she is stable. Pressure 122/60. From our perspective we'll follow her along with you now on an as- needed basis only, please don't hesitate to call with any questions Objective - Vital Signs Vital signs: Vital Signs Temp 97.6 F 06/03/19 04:00 Pulse 63 06/03/19 04:00 Resp 18 06/03/19 04:00 BP 122/57 06/03/19 04:00 Pulse Ox 95 06/03/19 07:40 Intake & Output 06/02/19 06/03/19 06/03/19 18:59 06:59 18:59 Intake Total 100 Output Total 700 Balance 100 -700 Weight 109.7 kg Intake: Oral 100 Output: Urine 700 Other: Voiding Method Bedside Commode # Voids 1 - Exam PHYSICAL EXAMINATION: GENERAL: 49-year-old -Angolan female in no acute distress at the time of my examination HEENT: Head is atraumatic, normocephalic. Pupils equal, round. Sclera anicteric. Conjunctiva are clear. Mucous membranes of the mouth are moist. Neck is supple. There is no elevated jugular venous pressure. No carotid bruit is heard. HEART EXAMINATION: Heart S1, S2 normal. No murmur or gallop heard. CHEST EXAMINATION: His reveal diminished air entry to bilateral bases ABDOMEN: Soft, nontender. Bowel sounds are heard. No organomegaly noted. EXTREMITIES: 1+ peripheral pulses bilaterally, small lateral ulceration noted, bilateral edema noted.. NEUROLOGIC patient is awake, alert and oriented 3 . . - Labs CBC & Chem 7: 06/01/19 06:53 06/01/19 06:53 Labs: Abnormal Lab Results - Last 24 Hours (Table) 06/02/19 06/02/19 06/02/19 Range/Units 11:59 17:23 21:21 POC Glucose (mg/dL) 135 H 191 H 175 H (75-99) mg/dL 06/03/19 06/03/19 Range/Units 02:06 06:41 POC Glucose (mg/dL) 114 H 130 H (75-99) mg/dL Assessment and Plan Plan: Assessment and plan #1 diastolic congestive heart failure acute on chronic. Most recent echocard iogram with Doppler study was performed in March of this year which revealed an ejection fraction of 55-60%, mild to moderate mitral regurgitation. #2 coronary artery disease with prior bypass surgery #3 PAD with prior intervention #4 hypertension Number 5 hyperlipidemia #6 diabetes #7 COPD #8 acute on chronic renal insufficiency #9 anemia, chronic #10 abnormality in troponin, patient is noted to have similar abnormality in March. Plan I'm cardiology's perspective, we'll recommend to continue this patient on her current medications. We will follow her along with you now on an as-needed basis only, please don't hesitate to call with any questions. DNP note has been reviewed, I agree with a documented findings and plan of care. Patient was seen and examined.
[2019-06-03 12:16] LABS: Glucose,Whole Blood 124 mg/dL (75-99)
[2019-06-03 12:34] LABS: Albumin 2.3 g/dL (3.5-5.0); Calcium 8.3 mg/dL (8.4-10.2); Potassium 4.9 mmol/L (3.5-5.1); Total Bilirubin 0.2 mg/dL (0.2-1.3)
[2019-06-03] MEDS: ISOSORBIDE MONONITRATE ER 30 MG TAB.ER.24H PO SCH (12:36)
--- NOTE | 2019-06-03 15:14 | PN ---
PROGRESS NOTE DATE OF SERVICE: 06/03/2019. REASON FOR FOLLOWUP: 1. C difficile colitis. 2. Left foot wound. INTERVAL HISTORY: The patient is currently afebrile. The patient has been breathing comfortably. Denies having any chest pain. Occasional cough. No abdominal pain. Her diarrhea has slowed down. She did have 2 episodes last night and one episode this morning. PHYSICAL EXAMINATION: Blood pressure is 115/63 with a pulse of 64, temperature 98.1. She is 97% on room air. General description is a middle-aged female lying in bed in no distress. RESPIRATORY SYSTEM: Unlabored breathing. Clear to auscultation anteriorly. HEART: S1, S2. Regular rate and rhythm. ABDOMEN: Soft. No tenderness. Left foot is currently dressed up. No obvious drainage on the dressing. LABS: BUN of 45. Creatinine is 2.47. DIAGNOSTIC IMPRESSION AND PLAN: 1. Patient with Clostridium difficile colitis. The patient is currently on oral vancomycin and has shown some clinical improvement. She will continue on oral vancomycin 250 p.o. q.6 hours for 2 weeks, Questran as needed for the diarrhea. Not to be given at the same time as other medication. 2. Left foot wound. Local care with Jennifer. She has been instructed to follow up in the wound care center for further local wound care. MMODL / IJN: [id number] /
[2019-06-03 16:43] LABS: Glucose,Whole Blood 152 mg/dL (75-99)
--- NOTE | 2019-06-03 17:26 | P.PN ---
Subjective Progress Note Date: 06/03/19 06/03/2019, patient essentially the same subjective shortness of breath is present, sugars are better under control labs reviewed medications reviewed 06/02/2019, patient seen eval reexamined during the rounds denies any chest pain shortness breath remains on 2 L stool is positive for C. diff, respiratory status stable she does get short of breath on minimal activity and exertion by complain labs reviewed medications reviewed Objective - Vital Signs Vital signs: Vital Signs Temp 98.1 F 06/03/19 08:00 Pulse 64 06/03/19 12:00 Resp 20 06/03/19 12:00 BP 116/63 06/03/19 12:00 Pulse Ox 97 06/03/19 12:00 Intake & Output 06/02/19 06/03/19 06/03/19 18:59 06:59 18:59 Intake Total 100 Output Total 700 Balance 100 -700 Weight 109.7 kg Intake: Oral 100 Output: Urine 700 Other: Voiding Method Bedside Commode # Voids 1 2 - Exam PHYSICAL EXAMINATION: GENERAL: 49-year-old -[place] female in no acute distress at the time of my examination HEENT: Head is atraumatic, normocephalic. Pupils equal, round. Sclera an icteric. Conjunctiva are clear. Mucous membranes of the mouth are moist. Neck is supple. There is no elevated jugular venous pressure. No carotid bruit is heard. HEART EXAMINATION: Heart S1, S2 normal. No murmur or gallop heard. CHEST EXAMINATION: His reveal diminished air entry to bilateral bases ABDOMEN: Soft, nontender. Bowel sounds are heard. No organomegaly noted. EXTREMITIES: 1+ peripheral pulses bilaterally, small lateral ulceration noted, bilateral edema noted.. NEUROLOGIC patient is awake, alert and oriented 3 . - Labs CBC & Chem 7: 06/01/19 06:53 06/03/19 12:11 Labs: Abnormal Lab Results - Last 24 Hours (Table) 06/02/19 06/02/19 06/03/19 Range/Units 17:23 21:21 02:06 Chloride (98-107) mmol/L Carbon Dioxide (22-30) mmol/L BUN (7-17) mg/dL Creatinine (0.52-1.04) mg/dL Glucose (74-99) mg/dL POC Glucose (mg/dL) 191 H 175 H 114 H (75-99) mg/dL Calcium (8.4-10.2) mg/dL AST (14-36) U/L Alkaline Phosphatase (38-126) U/L Total Protein (6.3-8.2) g/dL Albumin (3.5-5.0) g/dL 06/03/19 06/03/19 06/03/19 Range/Units 06:41 12:05 12:11 Chloride 111 H (98-107) mmol/L Carbon Dioxide 21 L (22-30) mmol/L BUN 45 H (7-17) mg/dL Creatinine 2.47 H (0.52-1.04) mg/dL Glucose 111 H (74-99) mg/dL POC Glucose (mg/dL) 130 H 124 H (75-99) mg/dL Calcium 8.3 L (8.4-10.2) mg/dL AST 40 H (14-36) U/L Alkaline Phosphatase 234 H (38-126) U/L Total Protein 5.0 L (6.3-8.2) g/dL Albumin 2.3 L (3.5-5.0) g/dL 06/03/19 Range/Units 16:42 Chloride (98-107) mmol/L Carbon Dioxide (22-30) mmol/L BUN (7-17) mg/dL Creatinine (0.52-1.04) mg/dL Glucose (74-99) mg/dL POC Glucose (mg/dL) 152 H (75-99) mg/dL Calcium (8.4-10.2) mg/dL AST (14-36) U/L Alkaline Phosphatase (38-126) U/L Total Protein (6.3-8.2) g/dL Albumin (3.5-5.0) g/dL Assessment and Plan Assessment: C. 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 difficile Maximal cardiac therapy Monitor renal functions closely Further recommendations pending plan of care as per clinical response of the patient Time with Patient: Greater than 30
[2019-06-03 20:43] LABS: Glucose,Whole Blood 208 mg/dL (75-99)
[2019-06-03] MEDS: INSULIN DETEMIR (LEVEMIR) 100 UNIT/ML SYR SQ SCH (21:53)
[2019-06-04 01:55] LABS: Glucose,Whole Blood 97 mg/dL (75-99)
[2019-06-04] MEDS: HYDROcodone/APAP 5-325MG 1 EACH TAB PO PRN ×2 (05:50→13:43)
[2019-06-04] MEDS: VANCOMYCIN ORAL SOLUTION 250 MG/5 ML BOTTLE PO SCH ×4 (05:50→23:19)
[2019-06-04 06:26] LABS: Anisocytosis Slight; Basophils % (A) 0 %; Eosinophils # (A) 0.3 k/uL (0-0.7); Eosinophils % (A) 3 %; Lymphocytes # (A) 1.7 k/uL (1.0-4.8); Lymphocytes % (A) 19 %; MCH 25.2 pg (25.0-35.0); MCHC 33.4 g/dL (31.0-37.0); MCV 75.4 fL (80.0-100.0); Mean Platelet Volume 7.9; Microcytosis Slight; Monocytes # (A) 0.4 k/uL (0-1.0); Monocytes % (A) 5 %; Neutrophils # (A) 6.6 k/uL (1.3-7.7); Neutrophils % (A) 72 %; Platelet Count 364 k/uL (150-450); RBC 3.58 m/uL (3.80-5.40); RDW 17.9 % (11.5-15.5); WBC 9.2 k/uL (3.8-10.6)
[2019-06-04 06:55] LABS: Albumin 2.4 g/dL (3.5-5.0); Calcium 8.6 mg/dL (8.4-10.2); Potassium 5.1 mmol/L (3.5-5.1); Total Bilirubin 0.2 mg/dL (0.2-1.3); Total Protein 5.1 g/dL (6.3-8.2)
[2019-06-04] MEDS: PANTOPRAZOLE 40 MG TABLET PO SCH (06:56)
[2019-06-04] MEDS: INSULIN ASPART (NovoLOG) 100 UNIT/ML VIAL SQ SCH ×7 (07:00→20:54)
[2019-06-04 07:01] LABS: Glucose,Whole Blood 107 mg/dL (75-99)
[2019-06-04] MEDS: CLOPIDOGREL 75 MG TAB PO SCH (09:31)
[2019-06-04] MEDS: hydrALAZINE HCL 50 MG TAB PO SCH ×3 (09:31→21:08)
[2019-06-04] MEDS: NIFEdipine XL 90 MG TAB.ER.24 PO SCH ×2 (09:33→12:38)
[2019-06-04] MEDS: PREGABALIN 75 MG CAP PO SCH ×2 (09:33→20:53)
[2019-06-04] MEDS: NADOLOL 20 MG TAB PO SCH (09:42)
[2019-06-04 11:58] LABS: Glucose,Whole Blood 127 mg/dL (75-99)
[2019-06-04] MEDS: ISOSORBIDE MONONITRATE ER 30 MG TAB.ER.24H PO SCH (12:38)
--- NOTE | 2019-06-04 12:55 | PN ---
PROGRESS NOTE SUBJECTIVE: This is a 49-year-old white female, remains dizzy. She is not orthostatic. She losing weight. She is on oral medications. Fluid restriction. She had negative orthostatic changes. CARDIOVASCULAR: S1, S2. LUNGS: Clear. GI: Soft. She says she feels like motion sickness. PLAN: Start scopolamine patch for possible vertigo. Continue orthostatic blood pressure checks. PT, OT. Increase ambulation. MMODL / IJN: [id number] /
[2019-06-04] MEDS: SCOPOLAMINE 1.5MG/72HR PATCH TRANSDERM SCH (13:43)
[2019-06-04 16:56] LABS: Glucose,Whole Blood 83 mg/dL (75-99)
[2019-06-04] MEDS: INSULIN DETEMIR (LEVEMIR) 100 UNIT/ML SYR SQ SCH (20:54)
[2019-06-04 21:21] LABS: Glucose,Whole Blood 176 mg/dL (75-99)
[2019-06-05] MEDS: HYDROcodone/APAP 5-325MG 1 EACH TAB PO PRN (00:44)
[2019-06-05 02:07] LABS: Glucose,Whole Blood 132 mg/dL (75-99)
[2019-06-05] MEDS: VANCOMYCIN ORAL SOLUTION 250 MG/5 ML BOTTLE PO SCH ×4 (06:03→23:43)
[2019-06-05] MEDS: PANTOPRAZOLE 40 MG TABLET PO SCH (06:03)
[2019-06-05] MEDS: INSULIN ASPART (NovoLOG) 100 UNIT/ML VIAL SQ SCH ×7 (07:14→20:47)
[2019-06-05 07:15] LABS: Glucose,Whole Blood 102 mg/dL (75-99)
[2019-06-05] MEDS: NADOLOL 20 MG TAB PO SCH (09:15)
[2019-06-05] MEDS: hydrALAZINE HCL 50 MG TAB PO SCH ×3 (09:16→21:59)
[2019-06-05] MEDS: PREGABALIN 75 MG CAP PO SCH ×2 (09:16→20:45)
[2019-06-05] MEDS: CLOPIDOGREL 75 MG TAB PO SCH (09:16)
[2019-06-05 11:56] LABS: Glucose,Whole Blood 194 mg/dL (75-99)
[2019-06-05 12:34] LABS: Glucose,Whole Blood 177 mg/dL (75-99)
[2019-06-05] MEDS: NIFEdipine XL 90 MG TAB.ER.24 PO SCH (12:43)
[2019-06-05] MEDS: ISOSORBIDE MONONITRATE ER 30 MG TAB.ER.24H PO SCH (12:43)
--- NOTE | 2019-06-05 12:46 | PN ---
PROGRESS NOTE SUBJECTIVE: This is a 49-year-old female with hypertension, diabetes, GERD, neuropathy, she is on oral vancomycin for C diff. A transderm scopolamine patch ordered today due to dizziness. Remains on hydralazine for blood pressure, Levemir for diabetes, Imdur for her heart disease, nadolol, Corgard for the atrial fibrillation, Procardia XL for a. fib, Protonix for GERD, Lyrica for neuropathy. LABS: Sugars in the mid 100s. Hemoglobin stable at 9, white count down from 12 down to 9.2. ASSESSMENT: 1. Clostridium diff colitis. 2. Atrial fibrillation. 3. Chronic obstructive pulmonary disease. 4. Congestive heart failure. Continue current treatments. Vital signs were reviewed. Check for orthostatic changes which were done and they were apparently negative. She is on 2 L at 94% on 2 L. Blood pressure 120s over 60s, respiratory rate 17-20, pulse 60s, temp 98.3. ASSESSMENT: 1. Vertigo type symptoms with negative orthostatic changes secondary to possible vertigo. 2. Clostridium difficile colitis. 3. Chronic obstructive pulmonary disease. 4. Congestive heart failure. 5. Insulin-dependent diabetes mellitus. 6. Possible depression, but she does not want medicines. Continue current treatments. MMODL / IJN: [id number] /
--- NOTE | 2019-06-05 14:43 | USB ---
EXAMINATION TYPE: US breast complete RT DATE OF EXAM: 06/05/2019 COMPARISON: NONE CLINICAL HISTORY: SWELLING. Whole right breast ultrasound including evaluation of subareolar and axillary regions shows extensive severe subcutaneous edema fairly diffusely with prominent slightly enlarged but benign-appearing rig ht axillary lymph nodes marked towards end of study. No well-formed fluid collection or abscess is se en. Strict clinical correlation advised. IMPRESSION: As above.
[2019-06-05 17:02] LABS: Glucose,Whole Blood 124 mg/dL (75-99)
[2019-06-05 20:43] LABS: Glucose,Whole Blood 167 mg/dL (75-99)
[2019-06-05] MEDS: INSULIN DETEMIR (LEVEMIR) 100 UNIT/ML SYR SQ SCH (20:47)
[2019-06-06] MEDS: HYDROcodone/APAP 5-325MG 1 EACH TAB PO PRN ×2 (03:33→09:50)
[2019-06-06 04:35] LABS: Glucose,Whole Blood 166 mg/dL (75-99)
[2019-06-06] MEDS: VANCOMYCIN ORAL SOLUTION 250 MG/5 ML BOTTLE PO SCH ×3 (05:03→17:47)
[2019-06-06 06:52] LABS: Glucose,Whole Blood 173 mg/dL (75-99)
[2019-06-06] MEDS: INSULIN ASPART (NovoLOG) 100 UNIT/ML VIAL SQ SCH ×7 (08:38→21:30)
[2019-06-06] MEDS: PANTOPRAZOLE 40 MG TABLET PO SCH (08:56)
[2019-06-06] MEDS: PREGABALIN 75 MG CAP PO SCH ×2 (08:56→21:31)
[2019-06-06] MEDS: ISOSORBIDE MONONITRATE ER 30 MG TAB.ER.24H PO SCH (08:56)
[2019-06-06] MEDS: CLOPIDOGREL 75 MG TAB PO SCH (08:56)
[2019-06-06] MEDS: NADOLOL 20 MG TAB PO SCH (09:50)
[2019-06-06 11:10] LABS: Glucose,Whole Blood 99 mg/dL (75-99)
[2019-06-06 13:30] VITALS: BMI 36.9
--- NOTE | 2019-06-06 16:39 | P.PN ---
Subjective Progress Note Date: 06/06/19 This is a 49-year-old female with recent multiple admissions admitted with chest pressure/heaviness, difficulty breathing, tachypneic ,chronic left foot wound with underlying Serratia marcescens, coagulase-negative staph, recent C. difficile colitis in a patient with extensive medical history including CAD, CABG, CHF, PAD, hypertension, hyperlipidemia, uncontrolled diabetes mellitus, COPD, TIA, critical limb ischemia, DVT, lupus and multiple other medical issues. Hypertensive , blood pressure 190/110, heart rate 107 on admission, maintaining O2 sats of 97% on 3 L nasal cannula. Chest x-ray suggestive of pulmonary vascular congestion EKG reported normal sinus rhythm with right bundle branch/bifascicular block. Troponin 0.042, BNP 13,100. Creatinine 1.36( baseline 1.02). Magnesium 1.6. Patient was started on IV Lasix with Coreg increased. Cardiology and infectious disease consulted. Denies chest pain, palpitations. 05/31/2019 diuresing well on Lasix IV push with 24-hour I&O reflecting a negative fluid balance. Renal function worsening, up to 2.04. Blood pressure improved. Maintaining O2 sats in the mid 90s on room air. Denies chest pain, palpitations. 06/01/2019 diuretics discontinued yesterday secondary to worsening renal function. Creatinine continues to worsen, 2.42. Cardiology discussing potential DC of Entresto. Fluctuates on oxygen needs between room air and 3 li ters NC. Currently maintaining O2 sats in the mid 90s on 3 L nasal cannula. T- max 99. Patient is refusing medications, meals this morning, 06/06/2019 fluctuating confusion. Complains of hallucinations both auditory and visual. One minute conversing appropriately the next minute talking about turning off gravy on stove and hearing her roommate's dog. Breast ultrasound reported extensive severe subcutaneous edema with enlarged benign appearing right axillary lymph nodes, no abscess/fluid collection. Maintained on oral vancomycin , Questran ;Loose stools improving. Hemodynamically stable. Mild improvement in vertigo on scopolamine patch. Objective - Vital Signs Vital signs: Vital Signs Temp 97.5 F L 06/06/19 07:32 Pulse 65 06/06/19 07:32 Resp 17 06/06/19 07:32 BP 150/70 06/06/19 07:32 Pulse Ox 98 06/06/19 07:32 Intake & Output 06/05/19 06/06/19 06/06/19 18:59 06:59 18:59 Intake Total 720 240 150 Output Total 120 Balance 600 240 150 Weight 110.2 kg Intake: Oral 720 240 150 Output: Urine 120 Other: Voiding Method Toilet Toilet # Voids 1 - Exam VITAL SIGNS: As above GENERAL: Sitting up in bed, no acute distress HEENT: Conjunctivae normal. eyes normal. Oral mucosa moist. NECK: No JVD. No thyroid enlargement. No LNs CARDIOVASCULAR: S1, S2 regular. No murmurs, no gallops, no rubs. RESPIRATION: Breath sounds diminished in the bases. No rhonchi, fine bibasilar crackles. No wheezing. ABDOMEN: Soft, nontender . No guarding. no masses palpable. Positive Bowel sounds. LEGS: Improving edema with left foot dressing clean dry and intact PSYCHIATRY: Alert and oriented X3, mood and affect normal. NERVOUS SYSTEM: Cranial N 2-12 grossly normal. Moves all 4 limbs. Diffuse weakness No focal deficits. Skin: No rash. Warm and dry. - Labs CBC & Chem 7: 06/04/19 05:44 06/04/19 05:44 Labs: Abnormal Lab Results - Last 24 Hours (Table) 06/05/19 06/05/19 06/05/19 Range/Units 11:42 12:31 17:00 POC Glucose (mg/dL) 194 H 177 H 124 H (75-99) mg/dL 06/05/19 06/06/19 06/06/19 Range/Units 20:40 04:34 06:50 POC Glucose (mg/dL) 167 H 166 H 173 H (75-99) mg/dL Assessment and Plan Assessment: -Acute on chronic CHF, diastolic dysfunction EF 55-60% -Mild to moderate mitral regurgitation -Acute on chronic renal failure, stage III. -Acute hypoxic respiratory failure secondary to all the above. -Chronic Left foot dorsum wound with underlying Serratia marcescens,Coagulase Negative Staph,Diphtheroid species secondary to underlying osteomyelitis, PAD, DM. -Mild leukocytosis, possibly reactive -C. difficile colitis -CAD, history of CABG -Hypertension -Hyperlipidemia -PAD -Diabetes mellitus -COPD -abnormal troponin, similar in March, cardiology following. -anemia of chronic disease With history of factor V deficiency -History of CVA with no residual -Depression -Possible Vertigo, negative orthostatic hypotension Plan: Continue current medication regime , Questran ,monitoring and symptomatic treatment. Continue on antibiotics as per ID Psychiatry consulted for depression.Maintain fluid restrictions. Close monitoring of renal function with repeat labs in a.m. Further recommendations to follow. The impression and plan of care has been dictated as directed. : I performed a history and examination of this patient, discussed the same with the dictator. I agree with the dictator's note ,documented as a scribe. Any additional findings or plans will be noted.
[2019-06-06 16:51] LABS: Glucose,Whole Blood 176 mg/dL (75-99)
--- NOTE | 2019-06-06 18:17 | PN ---
PROGRESS NOTE DATE OF SERVICE: 06/06/2019 REASON FOR FOLLOWUP: 1. C difficile colitis. 2. Left foot wound. INTERVAL HISTORY: The patient is currently afebrile. Patient has been breathing comfortably. Denies having any chest pain or any cough. No abdominal pain. Diarrhea has decreased. PHYSICAL EXAMINATION: Blood pressure 150/70 with a pulse of 65, temperature 97.5. She is 98% on 2 L nasal cannula. General description is a middle-aged female lying in bed in no distress. RESPIRATORY SYSTEM: Unlabored breathing. Clear to auscultation anteriorly. HEART: S1, S2. Regular rate and rhythm. Left foot wound with no significant slough tissue or foul-smelling drainage. LABS: No new labs have been obtained today. DIAGNOSTIC IMPRESSION AND PLAN: 1. Patient with Clostridium difficile colitis, currently on oral vancomycin; to continue to finish a 2-week course of therapy. 2. Left foot wound. Local wound care will be switched over to Aquacel Silver dressing, and followup in the wound care center next week. Continue supportive care. MMODL / IJN: [id number] /
[2019-06-06 21:21] LABS: Glucose,Whole Blood 395 mg/dL (75-99)
[2019-06-06] MEDS: INSULIN DETEMIR (LEVEMIR) 100 UNIT/ML SYR SQ SCH (21:30)
[2019-06-07] MEDS: VANCOMYCIN ORAL SOLUTION 250 MG/5 ML BOTTLE PO SCH ×5 (00:05→23:51)
[2019-06-07 03:17] LABS: Glucose,Whole Blood 69 mg/dL (75-99)
[2019-06-07 03:40] LABS: Glucose,Whole Blood 80 mg/dL (75-99)
[2019-06-07 07:41] LABS: Glucose,Whole Blood 90 mg/dL (75-99)
[2019-06-07 08:07] LABS: Calcium 8.9 mg/dL (8.4-10.2); Potassium 5.5 mmol/L (3.5-5.1)
[2019-06-07 08:42] LABS: Anisocytosis Slight; Basophils % (A) 0 %; Eosinophils # (A) 0.2 k/uL (0-0.7); Eosinophils % (A) 2 %; HCT 29.7 % (34.0-46.0); HGB 9.6 gm/dL (11.4-16.0); Hypochromasia Slight; Lymphocytes # (A) 1.3 k/uL (1.0-4.8); Lymphocytes % (A) 10 %; MCHC 32.4 g/dL (31.0-37.0); Mean Platelet Volume 8.1; Microcytosis Slight; Monocytes # (A) 0.6 k/uL (0-1.0); Monocytes % (A) 5 %; Neutrophils # (A) 10.4 k/uL (1.3-7.7); Neutrophils % (A) 82 %; Platelet Count 382 k/uL (150-450); RBC 3.86 m/uL (3.80-5.40); RDW 17.5 % (11.5-15.5); WBC 12.7 k/uL (3.8-10.6)
[2019-06-07] MEDS: INSULIN ASPART (NovoLOG) 100 UNIT/ML VIAL SQ SCH ×7 (08:42→22:12)
[2019-06-07] MEDS: PREGABALIN 75 MG CAP PO SCH ×2 (10:23→21:14)
[2019-06-07] MEDS: CLOPIDOGREL 75 MG TAB PO SCH (10:23)
[2019-06-07] MEDS: PANTOPRAZOLE 40 MG TABLET PO SCH (10:23)
[2019-06-07] MEDS: NADOLOL 20 MG TAB PO SCH (10:24)
[2019-06-07 12:03] LABS: Glucose,Whole Blood 95 mg/dL (75-99)
[2019-06-07] MEDS: ISOSORBIDE MONONITRATE ER 30 MG TAB.ER.24H PO SCH (12:37)
[2019-06-07] MEDS: SCOPOLAMINE 1.5MG/72HR PATCH TRANSDERM SCH (12:40)
[2019-06-07] MEDS: BUMETANIDE 1 MG TAB PO SCH (13:04)
--- NOTE | 2019-06-07 14:28 | PN ---
PROGRESS NOTE DATE OF SERVICE: 06/07/2019. REASON FOR FOLLOWUP: 1. C diff colitis. 2. Left foot wound. INTERVAL HISTORY: The patient is afebrile. Patient has been breathing comfortably. Denies having any chest pain, occasional cough. No nausea, vomiting. No abdominal pain and diarrhea has improved. Currently, had a soft bowel movement. PHYSICAL EXAMINATION: Blood pressure is 160/74 with a pulse of 70, temperature 98, she is 92% on 2 L nasal cannula. General description is a middle-aged female, up in the bed in no distress. RESPIRATORY SYSTEM: Unlabored breathing, clear to auscultation anteriorly. HEART: S1, S2, regular rate and rhythm. ABDOMEN: Soft, no tenderness EXTREMITIES: Left foot wound with no drainage on the dressing.: LABS: Hemoglobin 9.2, white count of 0.7, BUN 55, creatinine 2.7. DIAGNOSTIC IMPRESSION AND PLAN: 1. Patient with Clostridium difficile colitis, on vancomycin in addition to . 2. Left foot wound with Aquacel Silver dressing. Continue with local wound care. MMODL / IJN: [id number] /
--- NOTE | 2019-06-07 15:46 | P.PN ---
Subjective Progress Note Date: 06/07/19 This is a 49-year-old female with recent multiple admissions admitted with chest pressure/heaviness, difficulty breathing, tachypneic ,chronic left foot wound with underlying Serratia marcescens, coagulase-negative staph, recent C. difficile colitis in a patient with extensive medical history including CAD, CABG, CHF, PAD, hypertension, hyperlipidemia, uncontrolled diabetes mellitus, COPD, TIA, critical limb ischemia, DVT, lupus and multiple other medical issues. Hypertensive , blood pressure 190/110, heart rate 107 on admission, maintaining O2 sats of 97% on 3 L nasal cannula. Chest x-ray suggestive of pulmonary vascular congestion EKG reported normal sinus rhythm with right bundle branch/bifascicular block. Troponin 0.042, BNP 13,100. Creatinine 1.36( baseline 1.02). Magnesium 1.6. Patient was started on IV Lasix with Coreg increased. Cardiology and infectious disease consulted. Denies chest pain, palpitations. 05/31/2019 diuresing well on Lasix IV push with 24-hour I&O reflecting a negative fluid balance. Renal function worsening, up to 2.04. Blood pressure improved. Maintaining O2 sats in the mid 90s on room air. Denies chest pain, palpitations. 06/01/2019 diuretics discontinued yesterday secondary to worsening renal function. Creatinine continues to worsen, 2.42. Cardiology discussing potential DC of Entresto. Fluctuates on oxygen needs between room air and 3 li ters NC. Currently maintaining O2 sats in the mid 90s on 3 L nasal cannula. T- max 99. Patient is refusing medications, meals this morning, 06/06/2019 fluctuating confusion. Complains of hallucinations both auditory and visual. One minute conversing appropriately the next minute talking about turning off gravy on stove and hearing her roommate's dog. Breast ultrasound reported extensive severe subcutaneous edema with enlarged benign appearing right axillary lymph nodes, no abscess/fluid collection. Maintained on oral vancomycin , Questran ;Loose stools improving. Hemodynamically stable. Mild improvement in vertigo on scopolamine patch. 06/07/2019 secondary to consult in place, recommendations pending. Hypertensive, potassium up to 5.5, creatinine 2.27. Reports hallucinations milder today. Rambles. Objective - Vital Signs Vital signs: Vital Signs Temp 98.8 F 06/07/19 07:16 Pulse 73 06/07/19 12:23 Resp 18 06/07/19 07:16 BP 160/74 06/07/19 12:23 Pulse Ox 94 L 06/07/19 07:16 Intake & Output 06/06/19 06/07/19 06/07/19 18:59 06:59 18:59 Intake Total 150 420 Output Total 100 Balance 150 -100 420 Weight 110.2 kg 109.9 kg Intake: Oral 150 420 Output: Urine 100 Other: Voiding Method Toilet # Voids 1 1 1 # Bowel Movements 1 - Exam VITAL SIGNS: As above GENERAL: Sitting up in bed, no acute distress. sleepy HEENT: Conjunctivae normal. eyes normal. Oral mucosa moist. NECK: No JVD. No thyroid enlargement. No LNs CARDIOVASCULAR: S1, S2 regular. No murmurs, no gallops, no rubs. RESPIRATION: Breath sounds diminished in the bases. No rhonchi, fine bibasilar crackles. No wheezing. ABDOMEN: Soft, nontender . No guarding. no masses palpable. Positive Bowel sounds. LEGS: Improving edema with left foot dressing clean dry and intact PSYCHIATRY: Alert and oriented X3, mood and affect normal. NERVOUS SYSTEM: Cranial N 2-12 grossly normal. Moves all 4 limbs. Diffuse weakness No focal deficits. Skin: No rash. Warm and dry. - Labs CBC & Chem 7: 06/07/19 07:35 06/07/19 07:35 Labs: Abnormal Lab Results - Last 24 Hours (Table) 06/06/19 06/06/19 06/07/19 Range/Units 16:37 21:20 03:15 WBC (3.8-10.6) k/uL Hgb (11.4-16.0) gm/dL Hct (34.0-46.0) % MCV (80.0-100.0) fL RDW (11.5-15.5) % Neutrophils # (1.3-7.7) k/uL Potassium (3.5-5.1) mmol/L Chloride (98-107) mmol/L Carbon Dioxide (22-30) mmol/L BUN (7-17) mg/dL Creatinine (0.52-1.04) mg/dL POC Glucose (mg/dL) 176 H 395 H 69 L (75-99) mg/dL 06/07/19 06/07/19 Range/Units 07:35 07:35 WBC 12.7 H (3.8-10.6) k/uL Hgb 9.6 L (11.4-16.0) gm/dL Hct 29.7 L (34.0-46.0) % MCV 77.0 L (80.0-100.0) fL RDW 17.5 H (11.5-15.5) % Neutrophils # 10.4 H (1.3-7.7) k/uL Potassium 5.5 H (3.5-5.1) mmol/L Chloride 112 H (98-107) mmol/L Carbon Dioxide 19 L (22-30) mmol/L BUN 55 H (7-17) mg/dL Creatinine 2.27 H (0.52-1.04) mg/dL POC Glucose (mg/dL) (75-99) mg/dL Assessment and Plan Assessment: -Acute on chronic CHF, diastolic dysfunction EF 55-60% -Mild to moderate mitral regurgitation -Acute on chronic renal failure, stage III. -Acute hypoxic respiratory failure secondary to all the above. -Chronic Left foot dorsum wound with underlying Serratia marcescens,Coagulase Negative Staph,Diphtheroid species secondary to underlying osteomyelitis, PAD, DM. -Mild leukocytosis, possibly reactive -C. difficile colitis -CAD, history of CABG -Hypertension -Hyperlipidemia -PAD -Diabetes mellitus -COPD -abnormal troponin, similar in March, cardiology following. -anemia of chronic disease With history of factor V deficiency -History of CVA with no residual -Depression -Possible Vertigo, negative orthostatic hypotension Plan: Continue current medication regime , Questran ,monitoring and symptomatic treatment. Bumex to med regime. Low potassium diet . Close monitoring of renal function, I's and repeat labs ordered for a.m. Maintain antibiotics as per ID. Psychiatry consult in place, recommendations pending. Continue fluid restrictions. Discharge planning in progress for subacute rehab pending acceptance/authorization. The impression and plan of care has been dictated as directed. : I performed a history and examination of this patient, discussed the same with the dictator. I agree with the dictator's note ,documented as a scribe. Any additional findings or plans will be noted.
--- NOTE | 2019-06-07 16:04 | P.CN ---
Psychiatric Consult - . Consult date: 06/07/19 Consult:: 06/07/19 15:55 Identification: Patient is a 49-year-old female who was admitted with shortness of breath, chest heaviness as well as an infection in her foot Reason for Consult: Confusion, hallucinations History of Present Illness: Patient's chart was reviewed, the patient was seen and interviewed in her room no family members were present. Patient states that over the last several days he's been seeing things, she states that she was seeing people in her room and animals and states that it was worse at night. Patient states that she is not seeing them today as much as she was in the past, she states the husain appear to be made of water in her moving. She states the visual hallucinations are worse when it's dark out. Patient states that she was feeling a little confused the last several days and states that her thinking is a little clearer today. Patient had no other complaints at this time. Patient states that she had been treated 8 or 9 months ago when she was living in [place] by a psychiatrist for depression and was on Xanax. She states that she is not currently taking that medication and states that she's never had visual hallucinations before. Patient reports no history of suicide attempts or suicidal ideation. She states that she's never had auditory hallucinations and does not endorse any delusional ideation in the past. Patient states that she's not been on any other psychotropic medication besides Xanax. Patient denied any other psychiatric symptoms, stated she has not been seeing a psychiatrist here and has not been taking any Xanax. Past Psychiatric History: Patient denied any prior inpatient treatment, states that she had seen a psychiatrist 8 or 9 months ago in [place] and was treated with Xanax unknown dosage Past Medical/Surgical History: Patient has a history of COPD, congestive heart failure, CVA without sequela, diabetes, DVT, systemic lupus, status post coronary artery bypass surgery, status post tubal ligation Social History: Patient was born and raised in [place] her parents are both and she has 6 siblings were all alive. 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 She's been once in the past and has 4 children. She is currently engaged and moved here to be close to her fianc. Substance Use History: Patient denies any alcohol or drug use history currently or in the past Mental status: Appearance/Attitude: Patient is lying in a hospital bed, she made eye contact and was cooperative Behavior: Patient did not exhibit any psychomotor agitation or retardation Speech/Language: Patient's speech was spontaneous, normal volume and rhythm and she was coherent Thought Process: Patient's responses were goal-directed, no evidence of loose association or flight of ideas Thought Content: Patient denied any auditory hallucinations and states that she's been seeing things in her room and animals, people they are less frequent today than they have been and she states that they're worse at night. She states that the husain also appeared to be moving at times. Patient states that the visual hallucinations have been less frequent today. No delusions or paranoid ideation were elicited. Patient states that she was more confused yesterday and she is today, she states that she thinks that she is sleeping fairly well Suicidal/Homicidal Ideation: Patient denied any current suicidal or homicidal ideation Sensorium/Cognition: Patient was alert and oriented to person, month, year city and situation and she states her thinking is clearer today and she is feeling less confused. Mood/Affect: Patient's mood was pleasant and her affect was appropriate to her mood Insight/Judgment: Patient's insight and judgment are fair Assessment: Patient has a psychiatric history of no inpatient admissions but was seen by a psychiatrist and treated with Xanax for what the patient states was depression but has no history of suicidal ideation or suicide attempts. Patient states that she began seeing things in her room several days ago and they were worse at night but are better today. She states that she was feeling more confused yesterday and is feeling less so today. Patient was begun on scopolamine patch on June 04 and her symptoms began shortly thereafter. Patient has refused to have a scopolamine patch placed today. Diagnosis: Delirium Plan: Patient does not require an inpatient psychiatric admission, she is not currently suicidal or homicidal. Patient became confused with visual hallucinations after being started on a scopolamine patch on June 04 and today r efused the patch and reports that her hallucinations are less frequent. Would not restart scopolamine, patient's symptoms of delirium should resolve the longer she is off the scopolamine. No psychotropic medication will be recommended at this time as the patient is not agitated or noncompliant with treatment. I will sign off the case and if there are any further questions or concerns please don't hesitate to contact me.
[2019-06-07 17:03] LABS: Glucose,Whole Blood 137 mg/dL (75-99)
[2019-06-07] MEDS: HYDROcodone/APAP 5-325MG 1 EACH TAB PO PRN (17:47)
[2019-06-07 21:04] LABS: Glucose,Whole Blood 128 mg/dL (75-99)
[2019-06-07] MEDS: INSULIN DETEMIR (LEVEMIR) 100 UNIT/ML SYR SQ SCH (22:12)
[2019-06-08 02:23] LABS: Glucose,Whole Blood 151 mg/dL (75-99)
[2019-06-08] MEDS: VANCOMYCIN ORAL SOLUTION 250 MG/5 ML BOTTLE PO SCH ×4 (05:20→23:17)
[2019-06-08 07:26] LABS: Glucose,Whole Blood 155 mg/dL (75-99)
[2019-06-08] MEDS: INSULIN ASPART (NovoLOG) 100 UNIT/ML VIAL SQ SCH ×7 (07:45→21:27)
[2019-06-08] MEDS: IPRATROPIUM-ALBUTEROL 3 ML NEB INHALATION PRN ×2 (08:25→16:48)
[2019-06-08] MEDS: NADOLOL 20 MG TAB PO SCH (08:33)
[2019-06-08] MEDS: BUMETANIDE 1 MG TAB PO SCH (08:33)
[2019-06-08] MEDS: CLOPIDOGREL 75 MG TAB PO SCH (08:33)
[2019-06-08] MEDS: PREGABALIN 75 MG CAP PO SCH ×2 (08:33→20:59)
[2019-06-08] MEDS: PANTOPRAZOLE 40 MG TABLET PO SCH (08:33)
[2019-06-08 08:37] LABS: Calcium 8.9 mg/dL (8.4-10.2); Potassium 5.1 mmol/L (3.5-5.1)
[2019-06-08 10:55] LABS: Anisocytosis Slight; Basophils # (A) 0.1 k/uL (0-0.2); Basophils % (A) 1 %; Eosinophils # (A) 0.1 k/uL (0-0.7); Eosinophils % (A) 1 %; HCT 27.5 % (34.0-46.0); Hypochromasia Slight; Lymphocytes # (A) 1.4 k/uL (1.0-4.8); Lymphocytes % (A) 13 %; MCH 25.1 pg (25.0-35.0); MCHC 32.8 g/dL (31.0-37.0); MCV 76.7 fL (80.0-100.0); Mean Platelet Volume 8.2; Microcytosis Slight; Monocytes # (A) 0.6 k/uL (0-1.0); Monocytes % (A) 6 %; Neutrophils # (A) 8.6 k/uL (1.3-7.7); Neutrophils % (A) 79 %; Platelet Count 368 k/uL (150-450); RBC 3.59 m/uL (3.80-5.40); RDW 18.1 % (11.5-15.5); WBC 10.9 k/uL (3.8-10.6)
[2019-06-08 12:17] LABS: Glucose,Whole Blood 104 mg/dL (75-99)
--- NOTE | 2019-06-08 12:26 | XR ---
EXAMINATION TYPE: XR chest 2V DATE OF EXAM: 06/08/2019 COMPARISON: 06/01/2019 HISTORY: Shortness of breath TECHNIQUE: Frontal and lateral views of the chest are obtained. FINDINGS: Central venous line is unchanged in position. There is patchy right perihilar and right lower lobe in filtrate as well as a nodular density left midlung zone. Pulmonary vasculature is also engorged. A sm all right-sided pleural effusion is noted. Heart size is stable. Mediastinal structures are stable and grossly unremarkable. No evidence for hilar prominence. Degenerative changes dorsal spine. IMPRESSION: 1. Slight interval progression of findings felt to reflect a mild congestive failure. Superimposed in filtrate of other etiology difficult to exclude. Correlate clinically and progress studies are recomm ended.
[2019-06-08] MEDS: ISOSORBIDE MONONITRATE ER 30 MG TAB.ER.24H PO SCH (12:41)
--- NOTE | 2019-06-08 13:16 | PN ---
PROGRESS NOTE DATE OF SERVICE: 06/08/2019 REASON FOR FOLLOWUP: 1. C difficile colitis. 2. Left foot wound. INTERVAL HISTORY: The patient did have a low-grade fever of 100.2 this morning. The patient denies having any fever or chills. Denies having any headache. No chest pain. No abdominal pain and no diarrhea. PHYSICAL EXAMINATION: On examination, blood pressure 136/70 with a pulse of 75, temperature is 100.2. She is 93% on 2 L nasal cannula. General description is a middle aged female lying in bed in no distress. RESPIRATORY SYSTEM: Unlabored breathing, clear to auscultation anteriorly. HEART: S1, S2. Regular rate and rhythm. ABDOMEN: Soft, no tenderness. Left foot wound is currently dressed, no obvious drainage on the dressing. LABS: Hemoglobin 9 with white count 10.9, BUN of 55, creatinine is 2.21. DIAGNOSTIC IMPRESSION AND PLAN: 1. Patient with diarrhea. Stool for Clostridium difficile is positive. Continue vancomycin 250 to continue. 2. Left foot wound. Local wound care with Aquacel Silver dressing. Continue with supportive care. MMODL / IJN: [id number] /
[2019-06-08 17:02] LABS: Glucose,Whole Blood 150 mg/dL (75-99)
[2019-06-08 19:00] LABS: Appearance,Urine Clear (Clear); Bilirubin,Urine Negative (Negative); Blood,Urine Small (Negative); Color,Urine Light Yellow; Glucose,Urine (UA) Negative (Negative); Hyaline Casts,Urine 1 /lpf (0-2); Ketones,Urine Negative (Negative); Leukocyte Esterase,Urine Negative (Negative); Mucus,Urine Rare /hpf; Nitrite,Urine Negative (Negative); PH, Urine 6.5 (5.0-8.0); Protein,Urine 2+ (Negative); RBC,Urine 4 /hpf (0-5); Specific Gravity,Urine 1.011 (1.001-1.035); Squamous Epithelial Cell,Urine <1 /hpf (0-4); Urobilinogen,Urine <2.0 mg/dL (<2.0)
[2019-06-08] MEDS: HYDROcodone/APAP 5-325MG 1 EACH TAB PO PRN (19:48)
[2019-06-08 20:10] LABS: Glucose,Whole Blood 183 mg/dL (75-99)
[2019-06-08] MEDS: INSULIN DETEMIR (LEVEMIR) 100 UNIT/ML SYR SQ SCH (21:26)
[2019-06-09 02:19] LABS: Glucose,Whole Blood 98 mg/dL (75-99)
[2019-06-09] MEDS: VANCOMYCIN ORAL SOLUTION 250 MG/5 ML BOTTLE PO SCH (05:31)
[2019-06-09] MEDS: HYDROcodone/APAP 5-325MG 1 EACH TAB PO PRN (05:33)
[2019-06-09 06:56] LABS: Glucose,Whole Blood 125 mg/dL (75-99)
[2019-06-09 07:57] VITALS: RESP 16
[2019-06-09] MEDS: PANTOPRAZOLE 40 MG TABLET PO SCH (08:09)
[2019-06-09] MEDS: NADOLOL 20 MG TAB PO SCH (08:09)
[2019-06-09] MEDS: CLOPIDOGREL 75 MG TAB PO SCH (08:10)
[2019-06-09] MEDS: INSULIN ASPART (NovoLOG) 100 UNIT/ML VIAL SQ SCH ×4 (08:10→12:22)
[2019-06-09] MEDS: PREGABALIN 75 MG CAP PO SCH (08:10)
[2019-06-09] MEDS: BUMETANIDE 1 MG TAB PO SCH (08:10)
[2019-06-09 11:24] LABS: Glucose,Whole Blood 171 mg/dL (75-99)
[2019-06-09 12:01] LABS: Calcium 8.6 mg/dL (8.4-10.2); Potassium 4.8 mmol/L (3.5-5.1)
[2019-06-09] MEDS: ISOSORBIDE MONONITRATE ER 30 MG TAB.ER.24H PO SCH (12:22)
--- NOTE | 2019-06-09 12:22 | P.DS ---
Providers Date of admission: 05/31/19 08:14 Expected date of discharge: 06/09/19 Attending physician: Pavel Velasquez Consults: 05/30/19 02:20 Consult Physician Routine Consulting Provider: [facility] Consult Reason/Comments: chf Do you want consulting provider notified?: Yes, Notify in am 05/30/19 15:27 Consult Physician Routine Consulting Provider: Gina Hernandez Consult Reason/Comments: outpt C-diff treatment, ABX Do you want consulting provider notified?: Already Contacted 06/05/19 13:26 Consult Physician Routine Consulting Provider: Raheem Saenz Consult Reason/Comments: PORT RT CHEST EVALUATION Do you want consulting provider notified?: Yes 06/06/19 15:26 Consult Physician Routine Consulting Provider: Kenyetta Horner Consult Reason/Comments: confusion, hallucinations Do you want consulting provider notified?: Yes Primary care physician: Stated None Dr. Velasquez Hospital Course: Final Diagnoses: -Acute on chronic CHF, diastolic dysfunction EF 55-60% -Mild to moderate mitral regurgitation -Acute on chronic renal failure, stage III. -Acute hypoxic respiratory failure secondary to all the above. -Chronic Left foot dorsum wound with underlying Serratia marcescens,Coagulase Negative Staph,Diphtheroid species secondary to underlying osteomyelitis, PAD, DM. -Mild leukocytosis, possibly reactive -C. difficile colitis -CAD, history of CABG -Hypertension -Hyperlipidemia -PAD -Diabetes mellitus -COPD -abnormal troponin, similar in March, cardiology following. -anemia of chronic disease With history of factor V deficiency -History of CVA with no residual -Depression -Acute metabolic encephalopathy, suspect med induced from scopolamine patch was has been discontinued with significant improvement. -Possible Vertigo, negative orthostatic hypotension Hospital course:This is a 49-year-old female with recent multiple admissions admitted with chest pressure/heaviness, difficulty breathing, tachypneic ,chronic left foot wound with underlying Serratia marcescens, coagulase-negative staph, recent C. difficile colitis in a patient with extensive medical history including CAD, CABG, CHF, PAD, hypertension, hyperlipidemia, uncontrolled brandi betes mellitus, COPD, TIA, critical limb ischemia, DVT, lupus and multiple other medical issues. Hypertensive , blood pressure 190/110, heart rate 107 on admission, maintaining O2 sats of 97% on 3 L nasal cannula. Chest x-ray suggestive of pulmonary vascular congestion EKG reported normal sinus rhythm with right bundle branch/bifascicular block. Troponin 0.042, BNP 13,100. Creatinine 1.36( baseline 1.02). Magnesium 1.6. Patient was started on IV Lasix with Coreg increased. Cardiology and infectious disease consulted. Denies chest pain, palpitations. 05/31/2019 diuresing well on Lasix IV push with 24-hour I&O reflecting a negative fluid balance. Renal function worsening, up to 2.04. Blood pressure improved. Maintaining O2 sats in the mid 90s on room air. Denies chest pain, palpitations. 06/01/2019 diuretics discontinued yesterday secondary to worsening renal function. Creatinine continues to worsen, 2.42. Cardiology discussing potential DC of Entresto. Fluctuates on oxygen needs between room air and 3 liters NC. Currently maintaining O2 sats in the mid 90s on 3 L nasal cannula. T-max 99. Patient is refusing medications, meals this morning, 06/06/2019 fluctuating confusion. Complains of hallucinations both auditory and visual. One minute conversing appropriately the next minute talking about turning off gravy on stove and hearing her roommate's dog. Breast ultrasound reported extensive severe subcutaneous edema with enlarged benign appearing right axillary lymph nodes, no abscess/fluid collection. Maintained on oral vancomycin , Questran ;Loose stools improving. Hemodynamically stable. Mild improvement in vertigo on scopolamine patch. 06/07/2019 secondary to consult in place, recommendations pending. Hypertensive, potassium up to 5.5, creatinine 2.27. Reports hallucinations milder today. Rambles. Evaluated by psychiatry, diagnosed with delirium secondary to scopolamine patch. Confusion, hallucinations improving. Fevers resolved. Clear by all consults for discharge. DC Antibiotics as per ID. Patient is being discharged to medical [facility] in stable condition with guarded prognosis. - Exam GENERAL: Alert and oriented 3, no acute distress. CARDIOVASCULAR: S1, S2 regular. No murmurs, no gallops, no rubs. RESPIRATION: Breath sounds diminished in the bases. No rhonchi, fine bibasilar crackles. No wheezing. ABDOMEN: Soft, nontender . No guarding. no masses palpable. Positive Bowel sounds. LEGS: Improving edema with left foot dressing clean dry and intact NERVOUS SYSTEM: Cranial N 2-12 grossly normal. Moves all 4 limbs. Diffuse weakness No focal deficits. The impression and plan of care has been dictated as directed. : I performed a history and examination of this patient, discussed the same with the dictator. I agree with the dictator's note ,documented as a scribe. Any additional findings or plans will be noted. Time taken: 35 minutes Patient Condition at Discharge: Stable Plan - Discharge Summary Discharge Rx Participant: No New Discharge Prescriptions: New Bumetanide [BUMEX] 1 mg PO DAILY tab Nadolol [Corgard] 40 mg PO DAILY tab INSULIN LISPRO (HumaLOG) [humaLOG] 0 unit SQ ACHS #1 vial Insulin Detemir (Levemir) [Levemir] 15 unit SQ HS syr INSULIN ASPART (NovoLOG) [NovoLOG (formulary)] 10 unit SQ AC-TID vial NIFEdipine XL [Procardia XL] 120 mg PO DAILY tab.er.24 Continue Pantoprazole [Protonix] 40 mg PO AC-BRKFST #30 tablet. Clopidogrel Bisulfate [Plavix] 75 mg PO DAILY #30 tablet Ipratropium-Albuterol Nebulize [Duoneb 0.5 mg-3 mg/3 ml Soln] 3 ml INHALATION Q4H PRN ampul.neb PRN Reason: Shortness Of Breath Or Wheezing Isosorbide Mononitrate ER [Imdur] 30 mg PO 1200 Pregabalin [Lyrica] 150 mg PO BID #12 cap HYDROcodone/APAP 5-325MG [Marsteller 5-325] 1 tab PO Q6HR PRN #12 tab PRN Reason: Pain Discontinued Furosemide [Lasix] 40 mg PO BID #60 tab INSULIN ASPART (NovoLOG) [NovoLOG (formulary)] 15 unit SQ AC-TID #1 vial hydrALAZINE HCL [Apresoline] 100 mg PO TID #180 tab Carvedilol [Coreg*] 25 mg PO BID-W/MEALS #120 tab Insulin Detemir (Levemir) [Levemir] 35 unit SQ HS syr Sacubitril/Valsartan [Entresto 24 mg-26 mg Tablet] 1 tab PO BID Discharge Medication List Clopidogrel Bisulfate [Plavix] 75 mg PO DAILY #30 tablet 04/19/19 [Rx] Pantoprazole [Protonix] 40 mg PO AC-BRKFST #30 tablet. 04/19/19 [Rx] Ipratropium-Albuterol Nebulize [Duoneb 0.5 mg-3 mg/3 ml Soln] 3 ml INHALATION Q4H PRN ampul.neb 04/27/19 [Rx] Isosorbide Mononitrate ER [Imdur] 30 mg PO 1200 04/28/19 [History] Bumetanide [BUMEX] 1 mg PO DAILY tab 06/09/19 [Rx] HYDROcodone/APAP 5-325MG [Marsteller 5-325] 1 tab PO Q6HR PRN #12 tab 06/09/19 [Rx] INSULIN ASPART (NovoLOG) [NovoLOG (formulary)] 10 unit SQ AC-TID vial 06/09/19 [Rx] INSULIN LISPRO (HumaLOG) [humaLOG] 0 unit SQ ACHS #1 vial 06/09/19 [Rx] Insulin Detemir (Levemir) [Levemir] 15 unit SQ HS syr 06/09/19 [Rx] NIFEdipine XL [Procardia XL] 120 mg PO DAILY tab.er.24 06/09/19 [Rx] Nadolol [Corgard] 40 mg PO DAILY tab 06/09/19 [Rx] Pregabalin [Lyrica] 150 mg PO BID #12 cap 06/09/19 [Rx] Follow up Appointment(s)/Referral(s): [facility] [Provider Group] - 1 Week Pavel Velasquez MD [STAFF PHYSICIAN] - 3 Days Patient Instructions/Handouts: Heart Failure (DC), Heart Healthy Diet (DC) Activity/Diet/Wound Care/Special Instructions: [facility] antibx as per ID Diet: Consistent carb, cardiac Activity: As tolerated CBC, BMP in 3 days Discharge Disposition: TRANSFER TO SNF/F
[2019-06-09 12:38] LABS: Anisocytosis Slight; HCT 25.8 % (34.0-46.0); HGB 8.6 gm/dL (11.4-16.0); MCH 24.9 pg (25.0-35.0); MCHC 33.1 g/dL (31.0-37.0); MCV 75.3 fL (80.0-100.0); Mean Platelet Volume 7.5; Microcytosis Moderate; Platelet Count 361 k/uL (150-450); RBC 3.43 m/uL (3.80-5.40); RDW 17.9 % (11.5-15.5); WBC 8.6 k/uL (3.8-10.6)
--- NOTE | 2019-06-09 13:32 | PN ---
PROGRESS NOTE DATE OF SERVICE: 06/09/2019 REASON FOR FOLLOWUP: 1. Clostridium difficile colitis. 2. Left foot wound. INTERVAL HISTORY: The patient is currently afebrile. Patient has been breathing comfortably. No chest pain. Occasional cough. No abdominal pain. The diarrhea has resolved. Denies any pain to the left foot wound area. PHYSICAL EXAMINATION: On examination, blood pressure is 127/68 with a pulse of 60, temperature 97.6. She is 93% on room air. General description is a middle-aged female lying in bed in no distress. RESPIRATORY SYSTEM: Unlabored breathing, clear to auscultation anteriorly. HEART: S1, S2. Regular rate and rhythm. ABDOMEN: Soft, no tenderness. Left foot is currently with no significant slough tissue. No surrounding redness or foul smelling drainage. LABS: Hemoglobin 86, white count 8.6. BUN of 59 and creatinine 2.18. DIAGNOSTIC IMPRESSION AND PLAN: 1. Patient with Clostridium difficile colitis to continue with oral vancomycin 250 p.o. q.6 hours for another 10 days. 2. Left foot wound. Local wound care with Aquacel Silver dressing and follow up in the wound care center in 1 week. MMODL / IJN: [id number] /
[2019-06-09 15:30] VITALS: BP 127/72; PULSE 62; TEMP 97.9
--- NOTE | 2019-06-09 15:58 | P.PN ---
Subjective Progress Note Date: 06/08/19 This is a 49-year-old female with recent multiple admissions admitted with chest pressure/heaviness, difficulty breathing, tachypneic ,chronic left foot wound with underlying Serratia marcescens, coagulase-negative staph, recent C. difficile colitis in a patient with extensive medical history including CAD, CABG, CHF, PAD, hypertension, hyperlipidemia, uncontrolled diabetes mellitus, COPD, TIA, critical limb ischemia, DVT, lupus and multiple other medical issues. Hypertensive , blood pressure 190/110, heart rate 107 on admission, maintaining O2 sats of 97% on 3 L nasal cannula. Chest x-ray suggestive of pulmonary vascular congestion EKG reported normal sinus rhythm with right bundle branch/bifascicular block. Troponin 0.042, BNP 13,100. Creatinine 1.36( baseline 1.02). Magnesium 1.6. Patient was started on IV Lasix with Coreg increased. Cardiology and infectious disease consulted. Denies chest pain, palpitations. 05/31/2019 diuresing well on Lasix IV push with 24-hour I&O reflecting a negative fluid balance. Renal function worsening, up to 2.04. Blood pressure improved. Maintaining O2 sats in the mid 90s on room air. Denies chest pain, palpitations. 06/01/2019 diuretics discontinued yesterday secondary to worsening renal function. Creatinine continues to worsen, 2.42. Cardiology discussing potential DC of Entresto. Fluctuates on oxygen needs between room air and 3 li ters NC. Currently maintaining O2 sats in the mid 90s on 3 L nasal cannula. T- max 99. Patient is refusing medications, meals this morning, 06/06/2019 fluctuating confusion. Complains of hallucinations both auditory and visual. One minute conversing appropriately the next minute talking about turning off gravy on stove and hearing her roommate's dog. Breast ultrasound reported extensive severe subcutaneous edema with enlarged benign appearing right axillary lymph nodes, no abscess/fluid collection. Maintained on oral vancomycin , Questran ;Loose stools improving. Hemodynamically stable. Mild improvement in vertigo on scopolamine patch. 06/07/2019 secondary to consult in place, recommendations pending. Hypertensive, potassium up to 5.5, creatinine 2.27. Reports hallucinations milder today. Rambles. 06/08/2019. Evaluated by a psychiatry with recommendations noted. T-max 100.2, WBC 10.9. creatinine down to 2.2. Less hallucinations reported today. No diarrhea today.no Denies chest pain, palpitations or shortness of breath. Denies any lightheadedness dizziness or focal deficits. Objective - Vital Signs Vital signs: Vital Signs Temp 97.9 F 06/09/19 15:00 Pulse 62 06/09/19 15:00 Resp 16 06/09/19 15:00 BP 127/72 06/09/19 15:00 Pulse Ox 95 06/09/19 15:00 Intake & Output 06/08/19 06/09/19 06/09/19 18:59 06:59 18:59 Intake Total 750 245 476 Balance 750 245 476 Weight 111.9 kg Intake: Oral 750 245 476 Other: Voiding Method Bedside Commode Bedside Commode # Voids 0 1 1 - Exam VITAL SIGNS: Temperature 100.2, blood pressure 136/70, pulse 75, O2 sat 93% on 2 L nasal cannula GENERAL: Sitting up in bed, no acute distress. sleepy HEENT: Conjunctivae normal. eyes normal. Oral mucosa moist. NECK: No JVD. No thyroid enlargement. No LNs CARDIOVASCULAR: S1, S2 regular. No murmurs, no gallops, no rubs. RESPIRATION: Nonlabored, Breath sounds diminished in the bases. No rhonchi, no crackles. No wheezing. ABDOMEN: Soft, nontender . No guarding. no masses palpable. Positive Bowel sounds. LEGS: left foot dressing clean dry and intact PSYCHIATRY: Alert and oriented X3, mood and affect normal. NERVOUS SYSTEM: Cranial N 2-12 grossly normal. Moves all 4 limbs. Diffuse weakness No focal deficits. Skin: No rash. Warm and dry. - Labs CBC & Chem 7: 06/09/19 11:34 06/09/19 11:34 Labs: Abnormal Lab Results - Last 24 Hours (Table) 06/08/19 06/08/19 06/08/19 Range/Units 16:51 18:00 20:06 RBC (3.80-5.40) m/uL Hgb (11.4-16.0) gm/dL Hct (34.0-46.0) % MCV (80.0-100.0) fL MCH (25.0-35.0) pg RDW (11.5-15.5) % Chloride (98-107) mmol/L Carbon Dioxide (22-30) mmol/L BUN (7-17) mg/dL Creatinine (0.52-1.04) mg/dL Glucose (74-99) mg/dL POC Glucose (mg/dL) 150 H 183 H (75-99) mg/dL Urine Protein 2+ H (Negative) Urine Blood Small H (Negative) Urine WBC 6 H (0-5) /hpf Urine Mucus Rare H (None) /hpf 06/09/19 06/09/19 06/09/19 Range/Units 06:45 11:10 11:34 RBC 3.43 L (3.80-5.40) m/uL Hgb 8.6 L (11.4-16.0) gm/dL Hct 25.8 L (34.0-46.0) % MCV 75.3 L (80.0-100.0) fL MCH 24.9 L (25.0-35.0) pg RDW 17.9 H (11.5-15.5) % Chloride (98-107) mmol/L Carbon Dioxide (22-30) mmol/L BUN (7-17) mg/dL Creatinine (0.52-1.04) mg/dL Glucose (74-99) mg/dL POC Glucose (mg/dL) 125 H 171 H (75-99) mg/dL Urine Protein (Negative) Urine Blood (Negative) Urine WBC (0-5) /hpf Urine Mucus (None) /hpf 06/09/19 Range/Units 11:34 RBC (3.80-5.40) m/uL Hgb (11.4-16.0) gm/dL Hct (34.0-46.0) % MCV (80.0-100.0) fL MCH (25.0-35.0) pg RDW (11.5-15.5) % Chloride 113 H (98-107) mmol/L Carbon Dioxide 21 L (22-30) mmol/L BUN 59 H (7-17) mg/dL Creatinine 2.18 H (0.52-1.04) mg/dL Glucose 149 H (74-99) mg/dL POC Glucose (mg/dL) (75-99) mg/dL Urine Protein (Negative) Urine Blood (Negative) Urine WBC (0-5) /hpf Urine Mucus (None) /hpf Assessment and Plan Assessment: -Acute on chronic CHF, diastolic dysfunction EF 55-60% -Mild to moderate mitral regurgitation -Acute on chronic renal failure, stage III. -Acute hypoxic respiratory failure secondary to all the above. -Chronic Left foot dorsum wound with underlying Serratia marcescens,Coagulase Negative Staph,Diphtheroid species secondary to underlying osteomyelitis, PAD, DM. -Mild leukocytosis, possibly reactive -C. difficile colitis -CAD, history of CABG -Hypertension -Hyperlipidemia -PAD -Diabetes mellitus -COPD -abnormal troponin, similar in March, cardiology following. -anemia of chronic disease With history of factor V deficiency -History of CVA with no residual -Depression -Possible Vertigo, negative orthostatic hypotension -Delirium, metabolic encephalopathy, possibly medication induced related to scopolamine patch, improving Plan: Continue current medication regime , Questran ,monitoring and symptomatic treatment. Pancultured. Antibiotics/Wound Care as per ID .Continue fluid restrictions. Discharge planning in progress for subacute rehab tomorrow The impression and plan of care has been dictated as directed. : I performed a history and examination of this patient, discussed the same with the dictator. I agree with the dictator's note ,documented as a scribe. Any additional findings or plans will be noted.
--- NOTE | 2019-06-10 12:13 | CDI ---
Documentation Clarification Form Date: 06/10/2019 From: Melanie Gutierrez Phone: If questions call Francine Lee @ [phone], Hours-8:30 am & 5 pm M- F Admit Date: 05/31/2019 8:14:00 AM Patient Name: Sharon Singh Visit Number: [id number] Discharge Date: 06/09/2019 4:09:00 PM ATTENTION: The Clinical Documentation Specialists (CDI) and [facility] Coding Staff appreciate your assistance in clarifying documentation. Please respond to the clarification below the line at the bottom and electronically sign. The CDI & [facility] Coding staff will review the response and follow-up if needed. Please note: Queries are made part of the Legal Health Record. If you have any questions, please contact the author of this message via ITS. Dr. Pavel Velasquez Atrial Fibrillation is documented in your 06/05 PN. History/Risk Factors: HTN, diastolic CHF, CKD 3, DM EKG/telemetry: NSR, RBBB & LPFB (Bifascicular block) Treatment: Procardia XL In your professional opinion, can you please clarify the type of Atrial Fibrillation, if known? Chronic/Permanent Paroxysmal Persistent Other, please specify Unable to determine MTDD
== END 2019-06-09 16:09 | DRG 291 ==
LOC: EC 20:51 → 1SOBS 05-30 02:31 → 3SCARD 05-30 03:47 → OBSVTOIN 05-31 08:14 → 4SSUR 06-05 22:24
PROVIDERS: ADMIT Family Medicine; ATTEND Family Medicine
DX: I13.0 Hypertensive heart and chronic kidney disease with heart failure and stage 1 through stage 4 chronic kidney disease, or unspecified chronic kidney disease (principal); I50.33 Acute on chronic diastolic (congestive) heart failure; J96.21 Acute and chronic respiratory failure with hypoxia; G92 Toxic encephalopathy; I45.2 Bifascicular block; A04.72 Enterocolitis due to Clostridium difficile, not specified as recurrent; M86.9 Osteomyelitis, unspecified; D68.2 Hereditary deficiency of other clotting factors; N17.9 Acute kidney failure, unspecified; E11.22 Type 2 diabetes mellitus with diabetic chronic kidney disease; E11.40 Type 2 diabetes mellitus with diabetic neuropathy, unspecified; N18.3 Chronic kidney disease, stage 3 (moderate); E11.69 Type 2 diabetes mellitus with other specified complication; E11.621 Type 2 diabetes mellitus with foot ulcer; E11.51 Type 2 diabetes mellitus with diabetic peripheral angiopathy without gangrene; L97.529 Non-pressure chronic ulcer of other part of left foot with unspecified severity; J44.9 Chronic obstructive pulmonary disease, unspecified; T44.3X5A Adverse effect of other parasympatholytics [anticholinergics and antimuscarinics] and spasmolytics, initial encounter; E78.5 Hyperlipidemia, unspecified; I25.10 Atherosclerotic heart disease of native coronary artery without angina pectoris; K21.9 Gastro-esophageal reflux disease without esophagitis; D63.8 Anemia in other chronic diseases classified elsewhere; I34.0 Nonrheumatic mitral (valve) insufficiency; F31.9 Bipolar disorder, unspecified; F41.9 Anxiety disorder, unspecified; I25.2 Old myocardial infarction; F17.211 Nicotine dependence, cigarettes, in remission; Z79.02 Long term (current) use of antithrombotics/antiplatelets; Z79.4 Long term (current) use of insulin; Z79.899 Other long term (current) drug therapy; Z86.73 Personal history of transient ischemic attack (TIA), and cerebral infarction without residual deficits; Z86.718 Personal history of other venous thrombosis and embolism; Z87.01 Personal history of pneumonia (recurrent); Z86.19 Personal history of other infectious and parasitic diseases; Z95.1 Presence of aortocoronary bypass graft; Z95.5 Presence of coronary angioplasty implant and graft; Z87.39 Personal history of other diseases of the musculoskeletal system and connective tissue; Z98.51 Tubal ligation status; Z88.1 Allergy status to other antibiotic agents; Z88.2 Allergy status to sulfonamides; Z91.040 Latex allergy status; Z88.8 Allergy status to other drugs, medicaments and biological substances; Z91.018 Allergy to other foods; Z82.5 Family history of asthma and other chronic lower respiratory diseases; Z82.49 Family history of ischemic heart disease and other diseases of the circulatory system; Z83.2 Family history of diseases of the blood and blood-forming organs and certain disorders involving the immune mechanism; I48.91 Unspecified atrial fibrillation
CPT/HCPCS: 36415; 71046; 80048; 80053; 81001; 83735; 83880; 84484; 85025; 85027; 87040; 87324; 93005; 94640; 94760; 96361; 96374; 99285

== ENCOUNTER 2019-06-10 16:55 | Inpatient (IN) | payer MEDICARE, OTHER ==
[2019-06-10] MEDS ORDERED: MORPHINE SULFATE 2 MG/ML SYRINGE IVP ONE (17:29)
[2019-06-10] MEDS: IPRATROPIUM-ALBUTEROL 3 ML NEB INHALATION STA ×2 (17:40→18:04)
[2019-06-10 18:12] LABS: Anisocytosis Slight; Basophils % (A) 1 %; Eosinophils # (A) 0.2 k/uL (0-0.7); Eosinophils % (A) 2 %; HCT 27.5 % (34.0-46.0); Hypochromasia Slight; Lymphocytes # (A) 1.6 k/uL (1.0-4.8); Lymphocytes % (A) 17 %; MCH 24.8 pg (25.0-35.0); MCHC 32.8 g/dL (31.0-37.0); MCV 75.6 fL (80.0-100.0); Mean Platelet Volume 9.3; Microcytosis Slight; Monocytes # (A) 0.5 k/uL (0-1.0); Monocytes % (A) 5 %; Neutrophils # (A) 7.1 k/uL (1.3-7.7); Neutrophils % (A) 73 %; Platelet Count 356 k/uL (150-450); RBC 3.64 m/uL (3.80-5.40); RDW 17.6 % (11.5-15.5); WBC 9.7 k/uL (3.8-10.6)
[2019-06-10 18:20] LABS: INR 1.1 (<1.2); Partial Thromboplastin Time 27.6 sec (22.0-30.0); Prothrombin Time 11.4 sec (9.0-12.0)
[2019-06-10 18:29] LABS: Albumin 2.7 g/dL (3.5-5.0); Calcium 8.5 mg/dL (8.4-10.2); Magnesium 1.9 mg/dL (1.6-2.3); Potassium 5.1 mmol/L (3.5-5.1); Total Bilirubin 0.2 mg/dL (0.2-1.3); Total Protein 5.6 g/dL (6.3-8.2)
--- NOTE | 2019-06-10 18:45 | XR ---
EXAMINATION TYPE: XR chest 2V DATE OF EXAM: 06/10/2019 COMPARISON: 06/08/2019 HISTORY: Pneumonia TECHNIQUE: Frontal and lateral views of the chest are obtained. FINDINGS: Heart is enlarged. There is right central venous catheter with the tip in the superior steffany a cava. There is some pelvic vascular congestion. There is blunting of costophrenic angles bilaterall y. There is infiltrate right lower lobe. There are sternal wires. IMPRESSION: Mild congestive heart failure with pleural effusions. Chest appears slightly worse than last exam.
[2019-06-10] MEDS ORDERED: FUROSEMIDE 10 MG/ML 4 ML VIAL IV STA (20:16)
[2019-06-10] MEDS ORDERED: NALOXONE 0.4 MG/ML 1 ML VIAL IV PRN (20:17)
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
[2019-06-10 22:32] LABS: Glucose,Whole Blood 113 mg/dL (75-99)
[2019-06-10 22:48] VITALS: BMI 37.8
[2019-06-10] MEDS: IPRATROPIUM-ALBUTEROL 3 ML NEB INHALATION SCH (23:05)
[2019-06-10] MEDS: PREGABALIN 75 MG CAP PO SCH (23:32)
[2019-06-10] MEDS: methylPREDNISolone SOD SUCCI 40 MG/ML 1 ML VIAL IV SCH (23:33)
[2019-06-10] MEDS: FUROSEMIDE 10 MG/ML 4 ML VIAL IV SCH (23:33)
[2019-06-11] MEDS: KETOROLAC 30 MG/ML 1 ML VIAL IVP SCH ×4 (02:40→21:50)
[2019-06-11] MEDS: IPRATROPIUM-ALBUTEROL 3 ML NEB INHALATION SCH ×6 (03:25→19:30)
[2019-06-11 06:50] LABS: Glucose,Whole Blood 157 mg/dL (75-99)
[2019-06-11 07:08] LABS: Anisocytosis Slight; Basophils % (A) 0 %; Eosinophils # (A) 0.1 k/uL (0-0.7); Eosinophils % (A) 1 %; HGB 9.3 gm/dL (11.4-16.0); Hypochromasia Slight; Lymphocytes # (A) 0.8 k/uL (1.0-4.8); Lymphocytes % (A) 8 %; MCH 25.4 pg (25.0-35.0); MCHC 33.2 g/dL (31.0-37.0); MCV 76.5 fL (80.0-100.0); Mean Platelet Volume 7.9; Microcytosis Slight; Monocytes # (A) 0.2 k/uL (0-1.0); Monocytes % (A) 2 %; Neutrophils # (A) 8.6 k/uL (1.3-7.7); Neutrophils % (A) 88 %; Platelet Count 356 k/uL (150-450); RBC 3.67 m/uL (3.80-5.40); RDW 17.7 % (11.5-15.5); WBC 9.7 k/uL (3.8-10.6)
[2019-06-11] MEDS: INSULIN ASPART (NovoLOG) 100 UNIT/ML VIAL SQ SCH ×6 (07:13→22:06)
[2019-06-11 07:20] LABS: Calcium 8.5 mg/dL (8.4-10.2)
[2019-06-11] MEDS: BUDESONIDE 0.5 MG/2 ML NEBU INHALATION SCH ×2 (07:25→19:30)
[2019-06-11] MEDS ORDERED: PANTOPRAZOLE 40 MG TABLET PO SCH (07:30)
[2019-06-11] MEDS ORDERED: BUMETANIDE 1 MG TAB PO SCH (09:00)
[2019-06-11] MEDS: methylPREDNISolone SOD SUCCI 40 MG/ML 1 ML VIAL IV SCH ×3 (09:09→21:50)
[2019-06-11] MEDS: FUROSEMIDE 10 MG/ML 4 ML VIAL IV SCH ×2 (09:09→21:50)
[2019-06-11] MEDS: PREGABALIN 75 MG CAP PO SCH (09:13)
[2019-06-11] MEDS: NADOLOL 20 MG TAB PO SCH (09:13)
[2019-06-11] MEDS: CLOPIDOGREL 75 MG TAB PO SCH (09:13)
[2019-06-11 12:16] LABS: Glucose,Whole Blood 321 mg/dL (75-99)
[2019-06-11] MEDS: ISOSORBIDE MONONITRATE ER 30 MG TAB.ER.24H PO SCH (12:36)
[2019-06-11] MEDS: HYDROcodone/APAP 5-325MG 1 EACH TAB PO PRN (12:36)
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
[2019-06-11 17:05] LABS: Glucose,Whole Blood 337 mg/dL (75-99)
[2019-06-11] MEDS: CHERRY FLAVOR 60 ML BOTTLE PO SCH (17:21)
[2019-06-11] MEDS: VANCOMYCIN ORAL SOLUTION 250 MG/5 ML BOTTLE PO SCH (17:21)
--- NOTE | 2019-06-11 17:58 | CONS ---
CONSULTATION DATE OF SERVICE: 06/11/2019. REASON FOR CONSULTATION: Left foot wound C difficile colitis. HISTORY OF PRESENT ILLNESS: The patient is a 49-year-old female with multiple admissions at this facility. The patient did have a previous history of left foot dorsal wound at the base of the 5th toe with evidence of possible left 2nd toe ulceration for which the patient has been on IV cefepime that has been discontinued as the patient unable to continue with the IV antibiotics. Subsequently, course complicated by the C difficile colitis. She was recently admitted at this facility and has been treated for CHF and COPD and subsequently discharge to [facility]. The patient has not been brought back to the [facility] ER yesterday afternoon for which the patient was noticed to be tachypneic and hypoxic. The patient was placed on non-rebreather, given a DuoNeb breathing treatment and the patient was brought to the hospital. The patient noted to have significant wheezing. On presentation to hospital, the patient has been afebrile. The patient white count normalized at 9.7, creatinine was 2.29. The patient did have a chest x-ray which shows mild congestive heart failure with pleural effusions, slightly worsened since last exam. The patient has been admitted to the hospital and has been evaluated by Cardiology. I was asked to see the patient regarding her left foot wound as well as C difficile colitis. Patient currently denies having any diarrhea. Did have a soft bowel movement. No abdominal pain. Denies any worsening pain to the left foot wound area current local treatment has been Aquacel Silver dressing. REVIEW OF SYSTEMS: Positive points have been mentioned in HPI. Rest of the systems are negative. PAST MEDICAL HISTORY: Asthma, COPD, CVA, TIA, diabetes mellitus, DVT, hypertension, hyperlipidemia, RI, pneumonia and left foot wound with osteomyelitis, C. dif colitis. PAST SURGICAL HISTORY: Coronary artery bypass grafting, tubal ligation and left foot wound debridement. SOCIAL HISTORY: Current everyday smoker. No drinking or any drug use. FAMILY HISTORY: Mother with history of asthma, cancer. Father history DVT, RI. Daughter with history of DVT and PE. ALLERGIES: To CEPHALEXIN MEDICATIONS: Include the patient is currently on [place], DuoNeb, Pulmicort, Plavix, Lasix, NovoLog, Levemir, Imdur, Toradol, Corgard, Narcan, Procardia XL, Protonix, and vancomycin. PHYSICAL EXAMINATION: Blood pressure 137/74 with a pulse of 72, temperature 98. She is 94% on FiO2 10 L high flow oxygen. General description is a middle-aged female lying in bed in no distress. No tachypnea or accessory muscles of respiration use. HEENT: Shows slight pallor. No scleral icterus. Oral mucosa membranes dry. No pharyngeal erythema or thrush. Trachea central. No thyromegaly. Lungs unlabored breathing, decreased breath sounds. No wheeze or crackles. Heart S1, S2. Regular rate and rhythm. Abdomen soft. No tenderness. No guarding. No rigidity. Extremities: Are no edema of the feet. Examination of the left foot wound is with no significant slough tissue. No surrounding edema. Minimal swelling. No foul smelling drainage. LABS: Hemoglobin is 9.8, white count 9.7, BUN of 63, creatinine is 2.29. DIAGNOSTIC IMPRESSION AND PLAN: 1. Patient with left foot wound currently with no evidence of any cellulitis. Plan will be local wound care and Aquacel silver dressing with dressing change every 48 hours. 2. The patient with C diff colitis clinical responding to the oral Vancomycin and Questran to continue to finish a 2 week course of therapy. To discontinue the Protonix to decrease the risk of recurrent disease. The patient may use Pepcid for any gastroesophageal reflux disease. Thank you for this consultation. Will follow this patient along with you. MMODL / IJN: [id number] /
[2019-06-11 20:28] LABS: Glucose,Whole Blood 363 mg/dL (75-99)
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
[2019-06-11] MEDS: INSULIN DETEMIR (LEVEMIR) 100 UNIT/ML SYR SQ SCH (21:50)
[2019-06-11] MEDS: FAMOTIDINE 20 MG TAB PO SCH (21:50)
--- NOTE | 2019-06-11 22:58 | HP ---
HISTORY AND PHYSICAL SUBJECTIVE: 49-year-old female, history of bypass grafting, diastolic heart failure, hypertension, diabetes mellitus, COPD, critical limb ischemia, TIA, DVT, COPD, lupus, chronic kidney disease, and admitted for worsening heart failure after leaving the hospital for 24 hours. Her oxygen level dropped down to the 60s apparently on 2-3 L at which time she was unable to communicate or get any sleep and severe shortness of breath. IV Lasix was given with some improvement. EKG shows left fascicular block. Chest x-ray, CHF. White count 9.7, hemoglobin 9.3, sodium 138, potassium 5.0, creatinine 2.29, GFR 24. BNP is 8500. 14-point review of systems negative except for mentioned in HPI. Blood pressure 170s over 70s, heart rate 70s, female, shortness of breath, generalized edema. Heart: Regular rate and rhythm. Abdomen is soft. Extremities 2 to 3+ pedal edema. Vascular no clubbing. Neurologic: Alert and oriented x3. Psych: Flat mood and affect. PAST MEDICAL HISTORY: Asthma, COPD, CVA, TIA, diabetes mellitus, DVT, hypertension, dyslipidemia, myocardial infarction, pneumonia, factor 5, anemia, lupus, bilateral femoral-popliteal disease, claudication C diff. PAST SURGICAL HISTORY: CABG, heart catheterization, stent, tubal ligation. HOME MEDICINES: 1. Plavix 75 mg daily. 2. Protonix 40 mg daily. 3. DuoNeb updraft q.i.d. 4. Imdur 30 mg daily. 5. [place] q.6h p.r.n. 6. Humalog. 7. Levemir 15 units at night. 8. Procardia XL 120 daily. 9. Corgard 40 mg daily. 10.Lyrica 150 b.i.d. 11.Vancomycin oral solution. ALLERGIES: BACTRIM. PHYSICAL EXAMINATION: Blood pressure 130s to 170s over 60s to 70s, temp 97.4, pulse is 50s to 70s, respiratory 16-20. CARDIOVASCULAR: S1, S2. Lungs show rales at the base. He has generalized edema, 2 to 3+ pedal edema. Abdomen is soft. Psych: Affect flat mood and affect. LABS: Reviewed. ASSESSMENT: 1. Acute congestive heart failure, diastolic in nature. 2. Chronic obstructive pulmonary disease. 3. Possible pneumonia, community acquired. 4. Acute hypoxemic respiratory distress. 5. Acute on chronic anemia. 6. Diabetes mellitus. 7. Hypertension. 8. Asthma. 9. Lupus. 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 11.Chronic kidney disease stage 4. Continue current treatment. Await for Cardiology recommendations. MMODL / IJN: [id number] /
[2019-06-12] MEDS: IPRATROPIUM-ALBUTEROL 3 ML NEB INHALATION SCH ×7 (00:22→23:14)
[2019-06-12] MEDS: VANCOMYCIN ORAL SOLUTION 250 MG/5 ML BOTTLE PO SCH ×5 (00:31→23:13)
[2019-06-12] MEDS: CHERRY FLAVOR 60 ML BOTTLE PO SCH ×5 (00:31→23:13)
[2019-06-12] MEDS: HYDROcodone/APAP 5-325MG 1 EACH TAB PO PRN ×4 (00:32→23:12)
[2019-06-12] MEDS: KETOROLAC 30 MG/ML 1 ML VIAL IVP SCH ×2 (02:43→08:37)
[2019-06-12 06:25] LABS: Anisocytosis Slight; Basophils % (A) 0 %; Eosinophils % (A) 0 %; HGB 9.1 gm/dL (11.4-16.0); Hypochromasia Slight; Lymphocytes # (A) 0.9 k/uL (1.0-4.8); Lymphocytes % (A) 9 %; MCH 24.7 pg (25.0-35.0); MCHC 32.4 g/dL (31.0-37.0); MCV 76.4 fL (80.0-100.0); Microcytosis Slight; Monocytes # (A) 0.4 k/uL (0-1.0); Monocytes % (A) 4 %; Neutrophils # (A) 8.8 k/uL (1.3-7.7); Neutrophils % (A) 86 %; Platelet Count 370 k/uL (150-450); RBC 3.67 m/uL (3.80-5.40); RDW 17.5 % (11.5-15.5); WBC 10.2 k/uL (3.8-10.6)
[2019-06-12 06:36] LABS: Albumin 2.7 g/dL (3.5-5.0); Calcium 8.4 mg/dL (8.4-10.2); Potassium 5.2 mmol/L (3.5-5.1); Total Bilirubin 0.2 mg/dL (0.2-1.3); Total Protein 5.7 g/dL (6.3-8.2)
[2019-06-12 06:39] LABS: Glucose,Whole Blood 383 mg/dL (75-99)
[2019-06-12] MEDS: INSULIN ASPART (NovoLOG) 100 UNIT/ML VIAL SQ SCH ×7 (06:55→20:54)
--- NOTE | 2019-06-12 07:43 | P.PN ---
Subjective Progress Note Date: 06/12/19 Principal diagnosis: Acute hypoxic respiratory failure, basal atelectasis, COPD exacerbation, C. difficile colitis, pulmonary hypertension, acute on chronic respiratory failure, osteomyelitis of the left foot, right lower lobe atelectasis, poorly controlled diabetes mellitus 06/12/2019, patient is down to 8 L high flow oxygen saturation is improved to 95% hemodynamically she is stable remains afebrile menorah WBC count remained stable hemoglobin remained stable partial patient has a hypochromic anemia for which she she is being monitor potential slightly up to 5.2, BNP is over 9000 and troponin 3 remains normal This is a pleasant 49-year-old -[place] female admitted into the hospital due to severe hypoxia and shortness of breath requiring nonrebreather mask with 15 L subsequently switched to BiPAP and has been diuresed felt better now she is on 8 L oxygen is at cannula past medical history significant for coronary artery disease status post bypass grafting in [place], chronic diastolic heart failure, hypertension, diabetes, dyslipidemia, critical limb ischemia, TIA, DVT, COPD, lupus, chronic kidney disease and former nicotine dependence. She presented to the hospital with symptoms of increasing shortness of breath. She was just discharged home from the hospital 2 days ago on home oxygen review old medical record revealed that upon EMS arrival she was given breathing treatment which did not seem to help her symptoms. Subsequently brought into emergency department from there she was admitted She does however deny any symptoms of chest discomfort, palpitations, nausea, vomiting or diaphoresis. She continues to have ongoing shortness of breath. She has been initiated on IV Lasix in the emergency department with improvement in symptoms and swelling of the lower extremity. She denies any cough congestion and sputum production EKG reveals right bundle branch block with a left anterior fascicular block. Chest x-ray with pulmonary vascular congestion, blunting of the costophrenic angles bilaterally and an infiltrate versus atelectasis of the right lower lobe. Laboratory data reviewed, WBC 9.7, hemoglobin 9.3, platelets 356, sodium 138, potassium 5.0, creatinine 2.29 with a GFR of 24, cardiac enzymes negative 3, alkaline phosphatase 260, proBNP 8500. Most recent echocardiogram from March 2019 reveals preserved LV systolic function with ejection fraction 55-60%, mild to moderate mitral regurgitation, mild tricuspid regurgitation and mild pulmonary hypertension with RVSP of 40 mmHg. Objective - Vital Signs Vital signs: Vital Signs Temp 98.5 F 06/12/19 04:00 Pulse 79 06/12/19 04:00 Resp 19 06/12/19 04:00 BP 151/78 06/12/19 04:00 Pulse Ox 95 06/12/19 04:00 Intake & Output 06/11/19 06/12/19 06/12/19 18:59 06:59 18:59 Intake Total 822 Balance 822 Weight 111 kg Intake: Oral 822 Other: Voiding Method Bedside Commode # Voids 3 # Bowel Movements 1 - Exam - Constitutional General appearance: cooperative, disheveled, morbidly obese - EENT Eyes: EOMI, PERRLA, poor dentition, normal appearance ENT: normal oropharynx Ears: bilateral: normal - Neck Neck: normal ROM Carotids: bilateral: upstroke normal, bruit absent Thyroid: bilateral: normal size - Respiratory Respiratory: bilateral: diminished, dullness, rales, negative: rhonchi, wheezing, prolonged expiration - Cardiovascular Rhythm: regular Heart sounds: normal: S1, S2 - Gastrointestinal General gastrointestinal: decreased bowel sounds, soft - Integumentary Integumentary: normal turgor - Neurologic Neurologic: CNII-XII intact - Musculoskeletal Musculoskeletal: gait normal, generalized weakness, strength equal bilaterally - Psychiatric Psychiatric: A&O x's 3, appropriate affect, intact judgment & insight - Labs CBC & Chem 7: 06/12/19 05:55 06/12/19 05:55 Labs: Abnormal Lab Results - Last 24 Hours (Table) 06/11/19 06/11/19 06/11/19 Range/Units 12:07 17:04 20:27 RBC (3.80-5.40) m/uL Hgb (11.4-16.0) gm/dL Hct (34.0-46.0) % MCV (80.0-100.0) fL MCH (25.0-35.0) pg RDW (11.5-15.5) % Neutrophils # (1.3-7.7) k/uL Lymphocytes # (1.0-4.8) k/uL Sodium (137-145) mmol/L Potassium (3.5-5.1) mmol/L Carbon Dioxide (22-30) mmol/L BUN (7-17) mg/dL Creatinine (0.52-1.04) mg/dL Glucose (74-99) mg/dL POC Glucose (mg/dL) 321 H 337 H 363 H (75-99) mg/dL Alkaline Phosphatase (38-126) U/L Total Protein (6.3-8.2) g/dL Albumin (3.5-5.0) g/dL 06/12/19 06/12/19 06/12/19 Range/Units 05:55 05:55 06:34 RBC 3.67 L (3.80-5.40) m/uL Hgb 9.1 L (11.4-16.0) gm/dL Hct 28.0 L (34.0-46.0) % MCV 76.4 L (80.0-100.0) fL MCH 24.7 L (25.0-35.0) pg RDW 17.5 H (11.5-15.5) % Neutrophils # 8.8 H (1.3-7.7) k/uL Lymphocytes # 0.9 L (1.0-4.8) k/uL Sodium 135 L (137-145) mmol/L Potassium 5.2 H (3.5-5.1) mmol/L Carbon Dioxide 20 L (22-30) mmol/L BUN 66 H (7-17) mg/dL Creatinine 2.26 H (0.52-1.04) mg/dL Glucose 365 H (74-99) mg/dL POC Glucose (mg/dL) 383 H (75-99) mg/dL Alkaline Phosphatase 226 H (38-126) U/L Total Protein 5.7 L (6.3-8.2) g/dL Albumin 2.7 L (3.5-5.0) g/dL Microbiology - Last 24 Hours (Table) 06/10/19 18:03 Blood Culture - Preliminary Blood No Growth after 24 hours Assessment and Plan Assessment: Acute COPD exacerbation Osteomyelitis of left foot Acute hypoxic respiratory failure Exacerbation of congestive heart failure due to acute on chronic diastolic heart failure Pulmonary hypertension Severe COPD Right lower lobe pneumonia versus atelectasis Poorly controlled diabetes mellitus History of C. difficile colitis and recent Plan: Recommend to avoid any antibiotic except oral vancomycin Taper her steroids Continue therapy for C. difficile Gentle diuresis BiPAP at nighttime and when necessary during the day Gradually titrated oxygen down Continue home medication Agree with avoiding his Protonix due to C. diff Time with Patient: Greater than 30
[2019-06-12] MEDS: BUDESONIDE 0.5 MG/2 ML NEBU INHALATION SCH ×2 (08:13→20:04)
[2019-06-12] MEDS: FUROSEMIDE 10 MG/ML 4 ML VIAL IV SCH (08:37)
[2019-06-12] MEDS: methylPREDNISolone SOD SUCCI 40 MG/ML 1 ML VIAL IV SCH ×2 (08:37→20:54)
[2019-06-12] MEDS: NADOLOL 20 MG TAB PO SCH (08:38)
[2019-06-12] MEDS: CLOPIDOGREL 75 MG TAB PO SCH (08:38)
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
[2019-06-12 11:51] LABS: Glucose,Whole Blood 309 mg/dL (75-99)
[2019-06-12] MEDS: ISOSORBIDE MONONITRATE ER 30 MG TAB.ER.24H PO SCH (12:26)
--- NOTE | 2019-06-12 13:12 | P.PN ---
Subjective This is a pleasant 49-year-old -[place]est[place] female past medical history significant for coronary artery disease status post bypass grafting in [facility], chronic diastolic heart failure, hypertension, diabetes, dyslipidemia, critical limb ischemia, TIA, DVT, COPD, lupus, chronic kidney disease and former nicotine dependence. She follows in the office with Dr. Jhaveri. We have been asked to see her in consultation secondary to heart failu re. She presented to the hospital with symptoms of increasing shortness of breath. She was just discharged home from the hospital 2 days ago on home oxygen 2 metal edge of per here on. Upon EMS arrival she was given breathing treatment which did not seem to help her symptoms. At the time of my exam she is seen and examined sitting up in bed with a blanket over her head and states she didn't get any sleep last night and she does not really want to communicate. She does however deny any symptoms of chest discomfort, palpitations, nausea, vomiting or diaphoresis. She continues to have ongoing shortness of breath. She has been initiated on IV Lasix in the emergency department. EKG reveals right bundle branch block with a left anterior fascicular block. Chest x-ray with pulmonary vascular congestion, blunting of the costophrenic angles bilaterally and an infiltrate of the right lower lobe. Laboratory data reviewed, WBC 9.7, hemoglobin 9.3, platelets 356, sodium 138, potassium 5.0, creatinine 2.29 with a GFR of 24, cardiac enzymes negative 3, alkaline phosphatase 260, proBNP 8500. Current cardiac medications include Bumex 1 mg twice a day, Plavix 75 mg daily, Imdur 30 mg daily, nifedipine 120 mg daily, nadolol 40 mg daily. Most recent echocardiogram from March 2019 reveals preserved LV systolic function with ejection fraction 55-60%, mild to moderate mitral regurgitation, mild tricuspid regurgitation and mild pulmonary hypertension with RVSP of 40 mmHg. 06/12/2019 Patient is seen and examined resting comfortably in bed. Breathing is stable with no complaints of exertional dyspnea. She denies chest discomfort, dizziness or palpitations. Blood pressure 143/67 heart rate 60 afebrile maintaining oxygen saturation on nasal cannula. Laboratory data reviewed, WBC 10.2, hemoglobin 9.1, platelets 370, sodium 135, potassium 5.2, creatinine 2.26. GENERAL: This is a 49-year-old -Palest[place] female in no apparent distress at the time of my examination. HEENT: Head is atraumatic, normocephalic. Pupils are equal, round. Sclerae anicteric. Conjunctivae are clear. Mucous membranes of the mouth are moist. Neck is supple. There is no jugular venous distention. No carotid bruit is heard. LUNGS: Faint expiratory wheeze, bibasilar rales. No chest wall tenderness is noted on palpation or with deep breathing. HEART: Regular rate and rhythm with faint systolic ejection murmur at the left sternal border, no rubs or gallops. S1 and S2 heard. EXTREMITIES: Trace bilateral lower extremity pitting edema and no calf tenderness noted. ASSESSMENT Acute on chronic diastolic heart failure Chronic kidney disease Peripheral vascular disease COPD Hypertension History of coronary artery disease status post bypass grafting Dyslipidemia, intolerant to statins Former nicotine dependence Obesity, BMI 37 PLAN Transition to PO diuretics, bumex 1 mg BID. Stable from a cardiac perspective. Nurse Practitioner note has been reviewed, I agree with a documented findings and plan of care. Patient was seen and examined. Objective - Vital Signs Vital signs: Vital Signs Temp 97.5 F L 06/12/19 08:30 Pulse 60 06/12/19 08:30 Resp 16 06/12/19 08:30 BP 143/67 06/12/19 08:30 Pulse Ox 100 06/12/19 08:30 Intake & Output 06/11/19 06/12/19 06/12/19 18:59 06:59 18:59 Intake Total 822 594 Balance 822 594 Weight 111 kg Intake: Oral 822 594 Other: Voiding Method Bedside Commode # Voids 3 # Bowel Movements 1 - Labs CBC & Chem 7: 06/12/19 05:55 06/12/19 05:55 Labs: Abnormal Lab Results - Last 24 Hours (Table) 06/11/19 06/11/19 06/12/19 Range/Units 17:04 20:27 05:55 RBC (3.80-5.40) m/uL Hgb (11.4-16.0) gm/dL Hct (34.0-46.0) % MCV (80.0-100.0) fL MCH (25.0-35.0) pg RDW (11.5-15.5) % Neutrophils # (1.3-7.7) k/uL Lymphocytes # (1.0-4.8) k/uL Sodium 135 L (137-145) mmol/L Potassium 5.2 H (3.5-5.1) mmol/L Carbon Dioxide 20 L (22-30) mmol/L BUN 66 H (7-17) mg/dL Creatinine 2.26 H (0.52-1.04) mg/dL Glucose 365 H (74-99) mg/dL POC Glucose (mg/dL) 337 H 363 H (75-99) mg/dL Alkaline Phosphatase 226 H (38-126) U/L Total Protein 5.7 L (6.3-8.2) g/dL Albumin 2.7 L (3.5-5.0) g/dL 06/12/19 06/12/19 06/12/19 Range/Units 05:55 06:34 11:50 RBC 3.67 L (3.80-5.40) m/uL Hgb 9.1 L (11.4-16.0) gm/dL Hct 28.0 L (34.0-46.0) % MCV 76.4 L (80.0-100.0) fL MCH 24.7 L (25.0-35.0) pg RDW 17.5 H (11.5-15.5) % Neutrophils # 8.8 H (1.3-7.7) k/uL Lymphocytes # 0.9 L (1.0-4.8) k/uL Sodium (137-145) mmol/L Potassium (3.5-5.1) mmol/L Carbon Dioxide (22-30) mmol/L BUN (7-17) mg/dL Creatinine (0.52-1.04) mg/dL Glucose (74-99) mg/dL POC Glucose (mg/dL) 383 H 309 H (75-99) mg/dL Alkaline Phosphatase (38-126) U/L Total Protein (6.3-8.2) g/dL Albumin (3.5-5.0) g/dL Microbiology - Last 24 Hours (Table) 06/10/19 18:03 Blood Culture - Preliminary Blood No Growth after 24 hours
[2019-06-12 16:37] LABS: Glucose,Whole Blood 335 mg/dL (75-99)
[2019-06-12] MEDS: BUMETANIDE 1 MG TAB PO SCH (17:34)
--- NOTE | 2019-06-12 20:03 | PN ---
PROGRESS NOTE DATE OF SERVICE: 06/12/2019. REASON FOR FOLLOWUP: 1. Left foot wound. 2. C difficile colitis. INTERVAL HISTORY: The patient is currently afebrile. The patient is breathing comfortably. The patient denies having any chest pain. Breathing has improved. No nausea, vomiting. No abdominal pain. No diarrhea. PHYSICAL EXAMINATION: Blood pressure 143/55, pulse of 62, temperature 97.5. She is 96% on 3 L nasal cannula. General description is a middle-aged female up in the bed in no distress. Respiratory system: Unlabored breathing. Clear to auscultation anteriorly. Heart S1, S2. Regular rate and rhythm. Abdomen soft, no tenderness. Left foot is currently dressed up. No obvious drainage on the dressing. LABS: Hemoglobin is 9.1, white count 10.2, BUN of 66, creatinine is 2.26. Blood culture has been negative. DIAGNOSTIC IMPRESSION AND PLAN: 1. Patient with left foot wound with previous episode of osteomyelitis. Currently local wound care has been Aquacel Silver dressing and mild compression dressing. 2. C difficile colitis for which the patient is currently on oral vancomycin to continue to finish a course of therapy. Monitor clinical course closely. MMODL / IJN: [id number] /
[2019-06-12 20:41] LABS: Glucose,Whole Blood 366 mg/dL (75-99)
--- NOTE | 2019-06-12 20:45 | PN ---
PROGRESS NOTE SUBJECTIVE: This is a 49-year-old white female, diastolic CHF, COPD, C diff colitis, PAD. The patient is breathing slightly better today. Remains on IV diuresis, IV steroids. Elevated blood sugars. Her insulin will be increased to 15 units plus scale. She is on steroids. She will continue with oxygen compliance and possibly send back to long-term tomorrow on oxygen. Cardiovascular S1-S2. Lungs: Rales at the bases. Hematology 2 to 3+ pedal edema. Neurologic: Alert and orient x3. ASSESSMENT: 1. Congestive heart failure, diastolic. 2. Chronic obstructive pulmonary disease. 3. Clostridium diff colitis. 4. Peripheral arterial disease. Continue current treatment with IV steroids, IV Lasix, updraft treatments. Follow up next 24-48 hours. MMODL / IJN: [id number] /
[2019-06-12] MEDS: INSULIN DETEMIR (LEVEMIR) 100 UNIT/ML SYR SQ SCH (20:54)
[2019-06-12] MEDS: FAMOTIDINE 20 MG TAB PO SCH (20:54)
[2019-06-12 21:32] VITALS: RESP 17
[2019-06-13] MEDS: IPRATROPIUM-ALBUTEROL 3 ML NEB INHALATION SCH ×4 (02:30→15:12)
[2019-06-13] MEDS: VANCOMYCIN ORAL SOLUTION 250 MG/5 ML BOTTLE PO SCH ×2 (06:16→12:23)
[2019-06-13] MEDS: CHERRY FLAVOR 60 ML BOTTLE PO SCH ×2 (06:16→12:23)
[2019-06-13] MEDS: HYDROcodone/APAP 5-325MG 1 EACH TAB PO PRN (06:17)
[2019-06-13 06:28] LABS: Glucose,Whole Blood 278 mg/dL (75-99)
[2019-06-13 06:46] LABS: Calcium 8.6 mg/dL (8.4-10.2); Magnesium 1.9 mg/dL (1.6-2.3); Potassium 5.3 mmol/L (3.5-5.1)
[2019-06-13] MEDS: INSULIN ASPART (NovoLOG) 100 UNIT/ML VIAL SQ SCH ×4 (06:56→12:22)
[2019-06-13] MEDS: BUDESONIDE 0.5 MG/2 ML NEBU INHALATION SCH (08:19)
[2019-06-13] MEDS: NADOLOL 20 MG TAB PO SCH (08:54)
[2019-06-13] MEDS: BUMETANIDE 1 MG TAB PO SCH (08:54)
[2019-06-13] MEDS: methylPREDNISolone SOD SUCCI 40 MG/ML 1 ML VIAL IV SCH (08:54)
[2019-06-13] MEDS: CLOPIDOGREL 75 MG TAB PO SCH (08:54)
--- NOTE | 2019-06-13 09:19 | P.PN ---
Subjective Patient is seen in follow-up for chronic kidney disease. Recently her creatinine has been in the range of 1.8-2.2. Renal function is stable. She is maintained on oral Bumex. She has been voiding. No vomiting or diarrhea. Vital signs are stable. General: The patient appeared well nourished and normally developed. HEENT: Head exam is unremarkable. Neck is without jugular venous distension. LUNGS: Lungs are clear to auscultation and percussion. Breath sounds decreased. HEART: Rate and Rhythm are regular. First and second heart sounds normal. No murmurs, rubs or gallops. ABDOMEN: Abdominal exam reveals normal bowel sounds. Non-tender and non- distended. No evidence of peritonitis. EXTREMITITES: 1+ edema. Objective - Vital Signs Vital signs: Vital Signs Temp 97.7 F 06/13/19 08:56 Pulse 70 06/13/19 08:56 Resp 17 06/13/19 08:56 BP 161/74 06/13/19 08:56 Pulse Ox 95 06/13/19 08:56 Intake & Output 06/12/19 06/13/19 06/13/19 18:59 06:59 18:59 Intake Total 594 Output Total 200 Balance 594 -200 Weight 117.4 kg Intake: Oral 594 Output: Urine 200 Other: Voiding Method Bedside Commode Bedside Commode Bedside Commode # Bowel Movements 1 - Labs CBC & Chem 7: 06/12/19 05:55 06/13/19 06:08 Labs: Abnormal Lab Results - Last 24 Hours (Table) 06/12/19 06/12/19 06/12/19 Range/Units 11:50 16:35 20:40 Sodium (137-145) mmol/L Potassium (3.5-5.1) mmol/L Carbon Dioxide (22-30) mmol/L BUN (7-17) mg/dL Creatinine (0.52-1.04) mg/dL Glucose (74-99) mg/dL POC Glucose (mg/dL) 309 H 335 H 366 H (75-99) mg/dL 06/13/19 06/13/19 Range/Units 06:08 06:27 Sodium 136 L (137-145) mmol/L Potassium 5.3 H (3.5-5.1) mmol/L Carbon Dioxide 20 L (22-30) mmol/L BUN 74 H (7-17) mg/dL Creatinine 2.27 H (0.52-1.04) mg/dL Glucose 256 H (74-99) mg/dL POC Glucose (mg/dL) 278 H (75-99) mg/dL Microbiology - Last 24 Hours (Table) 06/10/19 18:03 Blood Culture - Preliminary Blood No Growth after 48 hours Assessment and Plan Plan: Assessment: 1. Chronic kidney disease stage IV secondary to diabetic kidney disease and cardiorenal syndrome. Renal function stable. Creatinine 2.27 today. 2. Acute hypoxic respiratory failure secondary to COPD as well as vascular congestion. 3. Mild hyperkalemia secondary to hyperglycemia. Stable. 4. Metabolic acidosis secondary to chronic kidney disease. 5. Insulin-dependent diabetes mellitus. 6. Anemia of chronic kidney disease. Rule out iron deficiency. 7. Diastolic CHF. 8. C. diff maintain on oral vancomycin. 9. Hypertension with chronic kidney disease. Plan: Maintain Bumex 1 mg twice daily. Follow-up iron studies. Avoid nephrotoxins. Discontinued Toradol. Follow-up urinalysis. Repeat electrolytes in the morning.
[2019-06-13 09:57] LABS: Iron Saturation 8.58 (12.00-45.00)
[2019-06-13 12:18] LABS: Glucose,Whole Blood 142 mg/dL (75-99)
[2019-06-13] MEDS: ISOSORBIDE MONONITRATE ER 30 MG TAB.ER.24H PO SCH (12:22)
[2019-06-13 12:38] VITALS: BP 174/74; PULSE 65; TEMP 97.8
--- NOTE | 2019-06-13 14:17 | P.PN ---
Subjective Progress Note Date: 06/13/19 Principal diagnosis: Acute hypoxic respiratory failure, basal atelectasis, COPD exacerbation, C. difficile colitis, pulmonary hypertension, acute on chronic respiratory failure, osteomyelitis of the left foot, right lower lobe atelectasis, poorly controlled diabetes mellitus 06/13/2019, patient seen and evaluated examined during the rounds improved breathing is been noted patient has attempted on room air oxygen saturation labs reviewed medications reviewed she has been down to 4 L yesterday and today she is on 2 L oxygen was 94% cough improved, hopefully in next 24 hours we will stop the steroid 06/12/2019, patient is down to 8 L high flow oxygen saturation is improved to 95% hemodynamically she is stable remains afebrile menorah WBC count remained stable hemoglobin remained stable partial patient has a hypochromic anemia for which she she is being monitor potential slightly up to 5.2, BNP is over 9000 and troponin 3 remains normal This is a pleasant 49-year-old -Swedish female admitted into the hospital due to severe hypoxia and shortness of breath requiring nonrebreather mask with 15 L subsequently switched to BiPAP and has been diuresed felt better now she is on 8 L oxygen is at cannula past medical history significant for coronary artery disease status post bypass grafting in [place], chronic diastolic heart failure, hypertension, diab etes, dyslipidemia, critical limb ischemia, TIA, DVT, COPD, lupus, chronic kidney disease and former nicotine dependence. She presented to the hospital with symptoms of increasing shortness of breath. She was just discharged home from the hospital 2 days ago on home oxygen review old medical record revealed that upon EMS arrival she was given breathing treatment which did not seem to help her symptoms. Subsequently brought into emergency department from there she was admitted She does however deny any symptoms of chest discomfort, palpitations, nausea, vomiting or diaphoresis. She continues to have ongoing shortness of breath. She has been initiated on IV Lasix in the emergency department with improvement in symptoms and swelling of the lower extremity. She denies any cough conge stion and sputum production EKG reveals right bundle branch block with a left anterior fascicular block. Chest x-ray with pulmonary vascular congestion, blunting of the costophrenic angles bilaterally and an infiltrate versus atelectasis of the right lower lobe. Laboratory data reviewed, WBC 9.7, hemoglobin 9.3, platelets 356, sodium 138, potassium 5.0, creatinine 2.29 with a GFR of 24, cardiac enzymes negative 3, alkaline phosphatase 260, proBNP 8500. Most recent echocardiogram from March 2019 reveals preserved LV systolic function with ejection fraction 55-60%, mild to moderate mitral regurgitation, mild tricuspid regurgitation and mild pulmonary hypertension with RVSP of 40 mmHg. Objective - Vital Signs Vital signs: Vital Signs Temp 97.8 F 06/13/19 12:35 Pulse 65 06/13/19 12:35 Resp 17 06/13/19 12:35 BP 174/74 06/13/19 12:35 Pulse Ox 94 L 06/13/19 12:35 Intake & Output 06/12/19 06/13/19 06/13/19 18:59 06:59 18:59 Intake Total 594 200 Output Total 200 Balance 594 -200 200 Weight 117.4 kg Intake: Oral 594 200 Output: Urine 200 Other: Voiding Method Bedside Commode Bedside Commode Bedside Commode # Bowel Movements 1 - Exam - Constitutional General appearance: cooperative, disheveled, morbidly obese - EENT Eyes: EOMI, PERRLA, poor dentition, normal appearance ENT: normal oropharynx Ears: bilateral: normal - Neck Neck: normal ROM Carotids: bilateral: upstroke normal, bruit absent Thyroid: bilateral: normal size - Respiratory Respiratory: bilateral: diminished, dullness, rales, negative: rhonchi, wheezing, prolonged expiration - Cardiovascular Rhythm: regular Heart sounds: normal: S1, S2 - Gastrointestinal General gastrointestinal: decreased bowel sounds, soft - Integumentary Integumentary: normal turgor - Neurologic Neurologic: CNII-XII intact - Musculoskeletal Musculoskeletal: gait normal, generalized weakness, strength equal bilaterally - Psychiatric Psychiatric: A&O x's 3, appropriate affect, intact judgment & insight - Labs CBC & Chem 7: 06/12/19 05:55 06/13/19 06:08 Labs: Abnormal Lab Results - Last 24 Hours (Table) 06/12/19 06/12/19 06/12/19 Range/Units 05:55 16:35 20:40 Sodium (137-145) mmol/L Potassium (3.5-5.1) mmol/L Carbon Dioxide (22-30) mmol/L BUN (7-17) mg/dL Creatinine (0.52-1.04) mg/dL Glucose (74-99) mg/dL POC Glucose (mg/dL) 335 H 366 H (75-99) mg/dL Iron 23 L (50-170) ug/dL Iron Saturation 8.58 L (12.00-45.00) 06/13/19 06/13/19 06/13/19 Range/Units 06:08 06:27 12:05 Sodium 136 L (137-145) mmol/L Potassium 5.3 H (3.5-5.1) mmol/L Carbon Dioxide 20 L (22-30) mmol/L BUN 74 H (7-17) mg/dL Creatinine 2.27 H (0.52-1.04) mg/dL Glucose 256 H (74-99) mg/dL POC Glucose (mg/dL) 278 H 142 H (75-99) mg/dL Iron (50-170) ug/dL Iron Saturation (12.00-45.00) Microbiology - Last 24 Hours (Table) 06/10/19 18:03 Blood Culture - Preliminary Blood No Growth after 48 hours Assessment and Plan Assessment: Acute COPD exacerbation Osteomyelitis of left foot Acute hypoxic respiratory failure Exacerbation of congestive heart failure due to acute on chronic diastolic heart failure Pulmonary hypertension Severe COPD Right lower lobe pneumonia versus atelectasis Poorly controlled diabetes mellitus History of C. difficile colitis and recent Plan: Recommend to avoid any antibiotic except oral vancomycin Taper her steroids hopefully off of steroids by tomorrow Continue therapy for C. difficile Gentle diuresis BiPAP at nighttime and when necessary during the day Gradually titrated oxygen down Continue home medication Agree with avoiding his Protonix due to C. diff Time with Patient: Greater than 30
--- NOTE | 2019-06-13 14:59 | P.DS ---
Providers Date of admission: 06/11/19 15:24 Expected date of discharge: 06/13/19 Attending physician: Pavel Velasquez Consults: 06/10/19 20:18 Consult Physician Urgent Consulting Provider: [facility] Consult Reason/Comments: AECHF, acute hypoxic resp failure Do you want consulting provider notified?: Yes 06/10/19 21:09 Consult Physician Urgent Consulting Provider: Jae Dalton Consult Reason/Comments: acute hypoxic resp failure, aecopd Do you want consulting provider notified?: Yes 06/11/19 11:19 Consult Physician Routine Consulting Provider: Jerry Murillo Consult Reason/Comments: renal failure on lasix Do you want consulting provider notified?: Yes 06/11/19 12:20 Consult Physician Routine Consulting Provider: Raheem Saenz Consult Reason/Comments: Left foot wound Do you want consulting provider notified?: Yes Consult Physician Routine Consulting Provider: Gina Hernandez Consult Reason/Comments: Left foot wound Do you want consulting provider notified?: Yes Primary care physician: Pavel Velasquez [facility] Course: Final Diagnoses: -Acute on chronic CHF, diastolic dysfunction -Acute COPD exacerbation, significantly improved -Acute on chronic renal failure, stage III -Acute hypoxic respiratory failure secondary to the above -C. difficile colitis -Chronic left foot dorsal wound -PAD -Hypertension -Hyperlipidemia, intolerant to statins -Morbid obesity, BMI 39.4 -Depression Hospital course: This a 49-year-old female admitted with diastolic CHF, COPD, C. diff, colitis, PAD. Maintained on IV diuresis, IV steroids, nebulized b ronchodilators. Significant clinical improvement. Cleared by all consults. Patient is being discharged to [facility] in a stable condition with guarded prognosis. GENERAL: Alert and oriented 3, no acute distress. CARDIOVASCULAR: S1, S2 regular. faint systolic murmur, no gallops, no rubs. RESPIRATION: Breath sounds diminished in the bases. No rhonchi, fine bibasilar crackles. No wheezing. ABDOMEN: Soft, nontender . No guarding. no masses palpable. Positive Bowel sounds. LEGS: Improving edema with left foot dressing clean dry and intact NERVOUS SYSTEM: Cranial N 2-12 grossly normal. Moves all 4 limbs. Diffuse weakness, No focal deficits. The impression and plan of care has been dictated as directed. : I performed a history and examination of this patient, discussed the same with the dictator. I agree with the dictator's note ,documented as a scribe. Any additional findings or plans will be noted. Time taken: 35 minutes Patient Condition at Discharge: Stable Plan - Discharge Summary Discharge Rx Participant: No New Discharge Prescriptions: New Famotidine [Pepcid] 40 mg PO HS tab predniSONE 10 mg PO DIRECTED #21 tab INSULIN ASPART (NovoLOG) [NovoLOG (formulary)] 15 unit SQ AC-TID #1 vial Continue Clopidogrel Bisulfate [Plavix] 75 mg PO DAILY #30 tablet Ipratropium-Albuterol Nebulize [Duoneb 0.5 mg-3 mg/3 ml Soln] 3 ml INHALATION Q4H PRN ampul.neb PRN Reason: Shortness Of Breath Or Wheezing Isosorbide Mononitrate ER [Imdur] 30 mg PO 1200 Nadolol [Corgard] 40 mg PO DAILY tab INSULIN LISPRO (HumaLOG) [humaLOG] 0 unit SQ ACHS #1 vial Insulin Detemir (Levemir) [Levemir] 15 unit SQ HS syr NIFEdipine XL [Procardia XL] 120 mg PO DAILY tab.er.24 Vancomycin HCl [Vancomycin HCl Oral Soln] 250 mg PO Q6HR #40 dose Bumetanide [BUMEX] 1 mg PO BID@0800,1600 Ipratropium-Albuterol Nebulize [Duoneb 0.5 mg-3 mg/3 ml Soln] 3 ml INHALATION RT-QID Pregabalin [Lyrica] 150 mg PO BID #12 cap HYDROcodone/APAP 5-325MG [Condon 5-325] 1 tab PO Q6HR PRN #12 tab PRN Reason: Pain Discontinued Pantoprazole [Protonix] 40 mg PO AC-BRKFST #30 tablet. Insulin Aspart [NovoLOG Flexpen] 10 unit SQ ACHS Discharge Medication List Clopidogrel Bisulfate [Plavix] 75 mg PO DAILY #30 tablet 04/19/19 [Rx] Ipratropium-Albuterol Nebulize [Duoneb 0.5 mg-3 mg/3 ml Soln] 3 ml INHALATION Q4H PRN ampul.neb 04/27/19 [Rx] Isosorbide Mononitrate ER [Imdur] 30 mg PO 1200 04/28/19 [History] INSULIN LISPRO (HumaLOG) [humaLOG] 0 unit SQ ACHS #1 vial 06/09/19 [Rx] Insulin Detemir (Levemir) [Levemir] 15 unit SQ HS syr 06/09/19 [Rx] NIFEdipine XL [Procardia XL] 120 mg PO DAILY tab.er.24 06/09/19 [Rx] Nadolol [Corgard] 40 mg PO DAILY tab 06/09/19 [Rx] Vancomycin HCl [Vancomycin HCl Oral Soln] 250 mg PO Q6HR #40 dose 06/09/19 [Rx] Bumetanide [BUMEX] 1 mg PO BID@0800,1600 06/10/19 [History] Ipratropium-Albuterol Nebulize [Duoneb 0.5 mg-3 mg/3 ml Soln] 3 ml INHALATION RT-QID 06/10/19 [History] Famotidine [Pepcid] 40 mg PO HS tab 06/13/19 [Rx] HYDROcodone/APAP 5-325MG [Condon 5-325] 1 tab PO Q6HR PRN #12 tab 06/13/19 [Rx] INSULIN ASPART (NovoLOG) [NovoLOG (formulary)] 15 unit SQ AC-TID #1 vial 06/13/19 [Rx] Pregabalin [Lyrica] 150 mg PO BID #12 cap 06/13/19 [Rx] predniSONE 10 mg PO DIRECTED #21 tab 06/13/19 [Rx] Follow up Appointment(s)/Referral(s): Pavel Velasquez MD [Primary Care Provider] - 3 Days (Spoke to customer service receptionist. Please call the office to schedule this appointment for yourself at discharge) Jerry Murillo DO [STAFF PHYSICIAN] - 1 Week Activity/Diet/Wound Care/Special Instructions: Antibiotics as per ID. confirm cardiology follow-up appointment prior to discharge. 2 L nasal cannula Diet: Cardiac, renal Activity: As tolerated
--- NOTE | 2019-06-13 15:10 | PN ---
PROGRESS NOTE DATE OF SERVICE: 06/13/2019 REASON FOR FOLLOWUP: 1. Left foot wound. 2. C diff colitis. INTERVAL HISTORY: The patient is currently afebrile. Patient has been breathing comfortably. Complaining of some cough, especially at night. No sputum production. No chest pain, no abdominal pain. Some pain to the left foot but no worsening and no diarrhea. PHYSICAL EXAMINATION: Blood pressure 174/74 with a pulse of 65, temperature 97.8, she is 94% on room air. General description is a middle-aged female, up in the bed in no distress. RESPIRATORY SYSTEM: Unlabored breathing with decreased breath sounds, no wheeze. HEART: S1, S2. Regular rate and rhythm. ABDOMEN: Soft, no tenderness. Left foot is currently dressed up, no obvious drainage on the dressing. LABS: BUN of 74, creatinine is 2.27. DIAGNOSTIC IMPRESSION AND PLAN: 1. Patient with Clostridium diff colitis, continue with oral vanc with 2-1/2 weeks of therapy. 2. Left foot wound. Local wound care. Left foot dressing, keep the area elevated. Continue supportive care. MMODL / IJN: [id number] /
--- NOTE | 2019-06-13 16:09 | P.PN ---
Subjective Progress Note Date: 06/13/19 This is a pleasant 49-year-old -[place] female past medical history significant for coronary artery disease status post bypass grafting in [place], chronic diastolic heart failure, hypertension, diabetes, dyslipidemia, critical limb ischemia, TIA, DVT, COPD, lupus, chronic kidney disease and former nicotine dependence. She follows in the office with Dr. Jhaveri. We have been asked to see her in consultation secondary to heart failure. She presented to the hospital with symptoms of increasing shortness of breath. She was just discharged home from the hospital 2 days ago on home oxygen . Patient was seen and examined this morning, breathing overall is stable. On oral diuretics. Blood pressure 160/70 with a heart rate in the 60s, 95% on 2 L of oxygen. Sodium 136, potassium 5.3, BUN 74 and creatinine 2.2, magnesium 1.9. Objective - Vital Signs Vital signs: Vital Signs Temp 97.8 F 06/13/19 12:35 Pulse 65 06/13/19 12:35 Resp 17 06/13/19 12:35 BP 174/74 06/13/19 12:35 Pulse Ox 94 L 06/13/19 12:35 Intake & Output 06/12/19 06/13/19 06/13/19 18:59 06:59 18:59 Intake Total 594 200 Output Total 200 Balance 594 -200 200 Weight 117.4 kg Intake: Oral 594 200 Output: Urine 200 Other: Voiding Method Bedside Commode Bedside Commode Bedside Commode # Bowel Movements 1 - Exam HEENT: Head is atraumatic, normocephalic. Pupils are equal, round. Sclerae anicteric. Conjunctivae are clear. Mucous membranes of the mouth are moist. Neck is supple. There is no jugular venous distention. No carotid bruit is heard. LUNGS: Faint expiratory wheeze, bibasilar rales. No chest wall tenderness is noted on palpation or with deep breathing. HEART: Regular rate and rhythm with faint systolic ejection murmur at the left sternal border, no rubs or gallops. S1 and S2 heard. EXTREMITIES: Trace bilateral lower extremity pitting edema and no calf tenderness noted. - Labs CBC & Chem 7: 06/12/19 05:55 06/13/19 06:08 Labs: Abnormal Lab Results - Last 24 Hours (Table) 06/12/19 06/12/19 06/12/19 Range/Units 05:55 16:35 20:40 Sodium (137-145) mmol/L Potassium (3.5-5.1) mmol/L Carbon Dioxide (22-30) mmol/L BUN (7-17) mg/dL Creatinine (0.52-1.04) mg/dL Glucose (74-99) mg/dL POC Glucose (mg/dL) 335 H 366 H (75-99) mg/dL Iron 23 L (50-170) ug/dL Iron Saturation 8.58 L (12.00-45.00) 06/13/19 06/13/19 06/13/19 Range/Units 06:08 06:27 12:05 Sodium 136 L (137-145) mmol/L Potassium 5.3 H (3.5-5.1) mmol/L Carbon Dioxide 20 L (22-30) mmol/L BUN 74 H (7-17) mg/dL Creatinine 2.27 H (0.52-1.04) mg/dL Glucose 256 H (74-99) mg/dL POC Glucose (mg/dL) 278 H 142 H (75-99) mg/dL Iron (50-170) ug/dL Iron Saturation (12.00-45.00) Microbiology - Last 24 Hours (Table) 06/10/19 18:03 Blood Culture - Preliminary Blood No Growth after 48 hours Assessment and Plan Plan: ASSESSMENT and plan #1 Acute on chronic diastolic heart failure #2 Chronic kidney disease #3 Peripheral vascular disease #4 COPD #5 Hypertension 6 History of coronary artery disease status post bypass grafting #7 Dyslipidemia, intolerant to statins #8 Former nicotine dependence #9 Obesity, BMI 37 Plan From cardiology's perspective, we'll recommend to continue the patient on her current medications. We will continue to follow. DNP note has been reviewed, I agree with a documented findings and plan of care. Patient was seen and examined.
== END 2019-06-13 17:00 | DRG 291 ==
LOC: EC 16:55 → 3SCARD 20:17 → OBSVTOIN 06-11 15:24
PROVIDERS: ADMIT Family Medicine; ATTEND Family Medicine
PROC: 5A09457 Assistance with Respiratory Ventilation, 24-96 Consecutive Hours, Continuous Positive Airway Pressure (ICD-10-PCS; principal; 2019-06-11)
DX: I13.0 Hypertensive heart and chronic kidney disease with heart failure and stage 1 through stage 4 chronic kidney disease, or unspecified chronic kidney disease (principal); I50.33 Acute on chronic diastolic (congestive) heart failure; J96.21 Acute and chronic respiratory failure with hypoxia; N18.4 Chronic kidney disease, stage 4 (severe); J44.1 Chronic obstructive pulmonary disease with (acute) exacerbation; E87.2 Acidosis; A04.72 Enterocolitis due to Clostridium difficile, not specified as recurrent; D68.2 Hereditary deficiency of other clotting factors; I45.2 Bifascicular block; D68.51 Activated protein C resistance; N17.9 Acute kidney failure, unspecified; M86.9 Osteomyelitis, unspecified; S91.302A Unspecified open wound, left foot, initial encounter; E11.65 Type 2 diabetes mellitus with hyperglycemia; E11.22 Type 2 diabetes mellitus with diabetic chronic kidney disease; E11.51 Type 2 diabetes mellitus with diabetic peripheral angiopathy without gangrene; E11.649 Type 2 diabetes mellitus with hypoglycemia without coma; E11.69 Type 2 diabetes mellitus with other specified complication; E87.5 Hyperkalemia; I27.20 Pulmonary hypertension, unspecified; I25.10 Atherosclerotic heart disease of native coronary artery without angina pectoris; D50.9 Iron deficiency anemia, unspecified; D63.1 Anemia in chronic kidney disease; K21.9 Gastro-esophageal reflux disease without esophagitis; E78.5 Hyperlipidemia, unspecified; E66.01 Morbid (severe) obesity due to excess calories; F17.200 Nicotine dependence, unspecified, uncomplicated; G89.29 Other chronic pain; I99.8 Other disorder of circulatory system; F31.9 Bipolar disorder, unspecified; F41.9 Anxiety disorder, unspecified; Z68.37 Body mass index [BMI] 37.0-37.9, adult; I25.2 Old myocardial infarction; Z99.81 Dependence on supplemental oxygen; Z95.1 Presence of aortocoronary bypass graft; Z95.5 Presence of coronary angioplasty implant and graft; Z79.02 Long term (current) use of antithrombotics/antiplatelets; Z79.899 Other long term (current) drug therapy; Z79.4 Long term (current) use of insulin; Z86.73 Personal history of transient ischemic attack (TIA), and cerebral infarction without residual deficits; Z87.39 Personal history of other diseases of the musculoskeletal system and connective tissue; Z87.01 Personal history of pneumonia (recurrent); Z88.2 Allergy status to sulfonamides; Z88.8 Allergy status to other drugs, medicaments and biological substances; Z88.1 Allergy status to other antibiotic agents; Z91.02 Food additives allergy status; Z91.040 Latex allergy status; Z68.39 Body mass index [BMI] 39.0-39.9, adult; Z86.19 Personal history of other infectious and parasitic diseases; Z79.52 Long term (current) use of systemic steroids; Z82.49 Family history of ischemic heart disease and other diseases of the circulatory system; Z82.5 Family history of asthma and other chronic lower respiratory diseases
CPT/HCPCS: 36415; 71046; 80048; 80053; 82728; 83540; 83550; 83735; 83880; 84484; 85025; 85610; 85730; 87040; 94640; 96374; 99285

== ENCOUNTER 2020-01-31 20:34 | Observation (INO) | payer MEDICARE, OTHER ==
[2020-01-31] MEDS ORDERED: MORPHINE SULFATE 4 MG/ML SYRINGE IV STA (21:13)
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
[2020-01-31 21:51] LABS: Anisocytosis Slight; Basophils % (A) 0 %; Eosinophils # (A) 0.2 k/uL (0-0.7); Eosinophils % (A) 3 %; HCT 30.1 % (34.0-46.0); HGB 10.2 gm/dL (11.4-16.0); Lymphocytes # (A) 1.7 k/uL (1.0-4.8); Lymphocytes % (A) 20 %; MCH 25.6 pg (25.0-35.0); MCHC 33.7 g/dL (31.0-37.0); Mean Platelet Volume 7.6; Microcytosis Slight; Monocytes # (A) 0.3 k/uL (0-1.0); Monocytes % (A) 4 %; Neutrophils # (A) 5.9 k/uL (1.3-7.7); Neutrophils % (A) 72 %; Platelet Count 353 k/uL (150-450); RBC 3.96 m/uL (3.80-5.40); RDW 16.2 % (11.5-15.5); WBC 8.3 k/uL (3.8-10.6)
[2020-01-31 22:01] LABS: Albumin 2.5 g/dL (3.5-5.0); Calcium 8.2 mg/dL (8.4-10.2); Magnesium 1.8 mg/dL (1.6-2.3); Potassium 3.1 mmol/L (3.5-5.1); Total Bilirubin 0.2 mg/dL (0.2-1.3); Total Protein 5.4 g/dL (6.3-8.2)
[2020-01-31 22:17] LABS: Partial Thromboplastin Time 25.3 sec (22.0-30.0)
[2020-01-31 22:19] LABS: D-Dimer 1.01 mg/L FEU (<0.60)
--- NOTE | 2020-02-01 00:08 | XR ---
EXAMINATION TYPE: XR chest 2V DATE OF EXAM: 01/31/2020 COMPARISON: 06/10/2019 HISTORY: Chest pain TECHNIQUE: FINDINGS: There are sternal wires. There is increased mild pulmonary interstitial density. There is l eft central venous catheter with tip in the right atrium. There is right-sided central venous cathete r with tip in the superior vena cava. No pneumothorax. IMPRESSION: Mild pulmonary interstitial edema improved compared to last exam. There is clearing of in filtrate and pleural fluid right lung base compared to last exam.
[2020-02-01] MEDS ORDERED: hydrALAZINE HCL 20 MG/ML 1 ML VIAL IVP STA (02:06)
[2020-02-01] MEDS ORDERED: NALOXONE 0.4 MG/ML 1 ML VIAL IV PRN (02:06)
[2020-02-01] MEDS ORDERED: ASPIRIN 81 MG PO STA (02:30)
[2020-02-01] MEDS: MORPHINE SULFATE 4 MG/ML SYRINGE IV PRN ×5 (03:07→21:20)
[2020-02-01 07:45] LABS: Glucose,Whole Blood 274 mg/dL (75-99)
[2020-02-01] MEDS: INSULIN ASPART (NovoLOG) 100 UNIT/ML VIAL SQ SCH ×3 (07:53→18:28)
[2020-02-01] MEDS: CLOPIDOGREL 75 MG TAB PO SCH (07:54)
[2020-02-01 11:38] LABS: Glucose,Whole Blood 116 mg/dL (75-99)
[2020-02-01] MEDS ORDERED: Potassium Replacement Protocol 1 EACH MISC MISCELLANE PRN (12:39)
[2020-02-01] MEDS ORDERED: Magnesium Replacement Protocol 1 EACH MISC MISCELLANE PRN (12:40)
[2020-02-01] MEDS ORDERED: POTASSIUM CHLORIDE ER 20 MEQ TAB.ER PO STA (14:33)
[2020-02-01 15:41] LABS: Calcium 8.1 mg/dL (8.4-10.2); Magnesium 1.8 mg/dL (1.6-2.3); Potassium 3.4 mmol/L (3.5-5.1)
[2020-02-01 17:11] LABS: Glucose,Whole Blood 239 mg/dL (75-99)
[2020-02-01 18:27] LABS: Glucose,Whole Blood 217 mg/dL (75-99)
--- NOTE | 2020-02-01 19:56 | CONS ---
CONSULTATION REASON FOR CONSULT: End-stage renal disease. HISTORY OF PRESENT ILLNESS: Patient is a 49-year-old female with end-stage renal disease, on hemodialysis on a Thursday, Thursday, Thursday schedule. She was admitted to the hospital with complaints of chest pain. The patient missed her dialysis on Thursday. She stated that she had a family emergency and could not go to her usual dialysis. The patient does have a history of coronary artery disease, previous history of coronary artery bypass surgery. She states that her chest pain has improved. Currently patient is being dialyzed. No fever, chills, nausea, vomiting or abdominal pain. PAST MEDICAL HISTORY: End-stage renal disease, type 2 diabetes, diabetic neuropathy, asthma, COPD, history of CVA/TIA, history of DVT, COPD, previous history of C diff. PAST SURGICAL HISTORY: Coronary artery bypass surgery, cardiac catheterization, coronary stent placement, tubal ligation. SOCIAL HISTORY: Positive for smoking, no history of drug abuse or alcohol abuse. MEDICATIONS: Medications prior to admission included insulin, Imdur, Bumex, Plavix, Procardia, Nadolol, [place], Pepcid, Lyrica, prednisone. ALLERGIES: Multiple include Lipitor, Keflex, latex, orange juice, Zocor, Bactrim, tomato. REVIEW OF SYSTEMS: As per HPI. Other systems negative. PHYSICAL EXAMINATION: On examination, patient is comfortable, awake, not in any acute distress. Alert and oriented x3. Blood pressure is 167/98, heart rate 91 per minute, she is afebrile. Examination of the heart S1, S2. Examination of the lungs, bilateral breath sounds are heard. ABDOMEN: Soft, nontender. Examination of lower extremities shows edema 1+ bilaterally. CHESTNUT TANNER exam grossly intact. LABS SHOW: Sodium of 135, potassium 3.1, chloride 102, CO2 is 27, BUN 22, creatinine 2.35, hemoglobin 10.2 g/dL. ASSESSMENT: 1. End-stage renal disease, on hemodialysis on a Thursday, Thursday, Thursday schedule. The patient is being dialyzed currently. 2. Chest pain seems to have improved. Troponin is not elevated. 3. Hypokalemia. I will replace. The patient was dialyzed on a slightly higher potassium bath. 4. Type 2 diabetes maintained on insulin. PLAN: Hemodialysis today. Replace potassium. Check labs in a.m. MMODL / IJN: [id number] /
[2020-02-01 20:14] LABS: Glucose,Whole Blood 192 mg/dL (75-99)
--- NOTE | 2020-02-01 20:20 | CONS ---
CONSULTATION Mrs. Singh is a 49-year-old female with known history of end-stage renal disease, on hemodialysis, history of coronary artery disease, status post coronary artery bypass grafting done in [place]. She moved up to our area. She had multiple admissions to the hospital, either at [facility] or [facility]. She presented this time with symptoms of chest discomfort. According to her, she has been having the discomfort on and off for a while, but worse at this time. She feels that her breathing is better after dialysis was initiated and her peripheral edema is better. She denies any dizziness or palpitation. She denies any significant arrhythmia. She has a history of smoking, hypertension and hyperlipidemia. She is diabetic. In the past, her left ventricular systolic function was preserved. She has been followed in the past by Dr. Jhaveri in the office. MEDICATIONS: Medications at home included vancomycin, Lyrica, Corgard, Procardia, isosorbide mononitrate 30 mg daily, insulin, Pepcid, Bumex and Plavix. REVIEW OF SYSTEMS: RESPIRATORY SYSTEM: She has history of chronic smoking and chronic dyspnea on exertion, chronic obstructive pulmonary disease. GI SYSTEM: She has no recent nausea. No vomiting. No peptic ulcer disease. SYSTEM: She has history of chronic kidney disease, on hemodialysis recently. NERVOUS SYSTEM: She has a history of stroke. PHYSICAL EXAMINATION: She is a 49-year-old female, alert, oriented, in no apparent distress. Blood pressure running in the 150s and 170s. Heart rate in the 80s. Afebrile. HEAD: Normocephalic. Eyes: Sclerae anicteric. NECK: Good carotid upstroke. No bruit. No jugular venous distention. LUNGS: Clear to auscultation. HEART: Regular rate and rhythm. S1, S2. No S3, with systolic murmur heard at the base, ejection type. No diastolic murmur. No rub. ABDOMEN: Soft, nontender. Positive bowel sounds. No organomegaly. EXTREMITIES: Trace to 1+ edema. LAB DATA: Lab data revealed BUN and creatinine 22 and 2.35, potassium 3.1, hemoglobin of 10.2. Troponin 0.015 and 0.034. Her NT-proBNP is 14,700. Her EKG revealed a sinus mechanism with right bundle branch block and nonspecific ST-T wave changes, unchanged compared to old EKG. Her chest x-ray revealed no acute infiltrate. IMPRESSION: 1. Symptoms of chest discomfort in a patient with known history of coronary artery disease and preserved systolic function in the past. Her symptoms of chest discomfort have been there before and she had chronic chest discomfort. Her cardiac enzymes are negative. There are no overt signs to suggest acute coronary syndrome. 2. Status post coronary artery bypass grafting. 3. End-stage renal disease, on hemodialysis. The elevation of the NT-proBNP does not reflect heart failure at this point. 4. History of hypertension. 5. Chronic tobacco use. 6. Diabetes mellitus. 7. Hyperlipidemia. RECOMMENDATIONS: From the cardiac standpoint, I will try to obtain her most recent echocardiogram. Patient had multiple admissions to [facility] recently. I will continue her home cardiac medication. Depending on her progress, further recommendations will be made. Thank you for this consult. Will follow with you. JAS / ELSYN: [id number] /
[2020-02-01] MEDS ORDERED: INSULIN DETEMIR (LEVEMIR) 100 UNIT/ML SYR SQ SCH (21:00)
[2020-02-01] MEDS ORDERED: amLODIPine 5 MG TAB PO SCH (21:00)
[2020-02-01] MEDS: hydrALAZINE HCL 50 MG TAB PO SCH (22:20)
--- NOTE | 2020-02-01 22:43 | HP ---
HISTORY AND PHYSICAL A 49-year-old white female, end-stage renal disease, coronary artery disease, multiple admissions to the hospital for chest discomfort, intermittent that comes and goes. She states it is worse during dialysis, history of smoking, hypertension, dyslipidemia, noncompliance. Seen by the Cardiology multiple times in the other hospitals as well as Pulmonary. MEDICATIONS: She gets IV vancomycin for osteomyelitis of the foot, Lyrica, Corgard, Procardia, Imdur, insulin, Pepcid, Bumex, Plavix. REVIEW OF SYMPTOMS: Otherwise 14-point review of systems negative except for neuropathy in her feet. Medications reviewed. PHYSICAL EXAM: 49-year-old white female who appears weak, fatigued. Blood pressure 150s to 170 systolic over 80s to 90s. Heart rate is in 80s to 90s. HEAD: Normocephalic, atraumatic. Chest: She has no chest wall tenderness. LUNGS: Wheezes at the bases. HEART: S1, S2. ABDOMEN: Soft. Some tenderness to palpation epigastric. Extremities trace edema. LABORATORY DATA: Creatinine is 2.35, BUN is 22, potassium 3.1, hemoglobin 10.2. BNP 14 7. EKG right bundle branch block. ASSESSMENT: 1. Atypical chest pain. 2. History of coronary artery disease, status post coronary artery bypass grafting. 3. End-stage renal disease. 4. Hypertension. 5. Nicotine addiction. 6. Diabetes mellitus type 2. 7. Dyslipidemia. Cardiology is going to work her up. Dialysis per Dr. Downs. Pulmonary will do CT scan of the chest. Pulmonary is also going to evaluate. MMODL / IJN: [id number] /
--- NOTE | 2020-02-01 22:48 | CT ---
EXAMINATION TYPE: CT chest wo con DATE OF EXAM: 02/01/2020 COMPARISON: None HISTORY: chest pain, SOB CT DLP: 337.4 mGycm Automated exposure control for dose reduction was used. Multiple axial sections were obtained from the thoracic inlet to the diaphragm with no contrast. Exam is limited by lack of vascular contrast. There is a patchy reticular infiltrate throughout the lungs. There is also some patchy atelectasis at the posterior lung bases. There is mild pleural thickening right posterior lung base. Heart is sligh tly enlarged. There is no pericardial effusion. There is no pleural fluid. There is left-sided centra l venous catheter with the tip in the right atrium. There is 12 mm pretracheal lymph node. There is c oronary artery calcification. Thoracic aorta shows no aneurysm. The ascending aorta measures 3.5 cm. There is atheromatous change in the thoracic aorta. I see no definite hilar mass. There are large ryan tral pulmonary arteries. The bony thorax is intact. There are sternal wires. I see no bony destructiv e process. IMPRESSION: There is reticular diffuse pulmonary interstitial infiltrates that is new compared to old exam. There is patchy atelectasis at the lung bases that is mostly new compared to old exam. No suspicious pulmo nary mass. Heart appears increased in size compared to old exam. Lung disease and enlarged heart woul d be consistent with new heart failure compared to old exam.
[2020-02-02 06:56] LABS: Glucose,Whole Blood 117 mg/dL (75-99)
[2020-02-02] MEDS: SUCRALFATE 1 GM TAB PO SCH ×4 (07:09→19:57)
[2020-02-02] MEDS: hydrALAZINE HCL 50 MG TAB PO SCH ×3 (07:09→19:53)
[2020-02-02] MEDS: INSULIN ASPART (NovoLOG) 100 UNIT/ML VIAL SQ SCH ×3 (07:10→17:37)
[2020-02-02 07:51] LABS: Calcium 8.7 mg/dL (8.4-10.2); Potassium 3.9 mmol/L (3.5-5.1)
[2020-02-02] MEDS: IPRATROPIUM-ALBUTEROL 3 ML NEB INHALATION SCH ×4 (08:00→19:48)
[2020-02-02 08:04] LABS: Anisocytosis Slight; Basophils % (A) 0 %; Eosinophils # (A) 0.5 k/uL (0-0.7); Eosinophils % (A) 5 %; HCT 29.3 % (34.0-46.0); HGB 9.8 gm/dL (11.4-16.0); Lymphocytes # (A) 2.3 k/uL (1.0-4.8); Lymphocytes % (A) 24 %; MCH 25.4 pg (25.0-35.0); MCHC 33.6 g/dL (31.0-37.0); MCV 75.8 fL (80.0-100.0); Mean Platelet Volume 7.6; Microcytosis Slight; Monocytes # (A) 0.6 k/uL (0-1.0); Monocytes % (A) 6 %; Neutrophils # (A) 6.1 k/uL (1.3-7.7); Neutrophils % (A) 62 %; Platelet Count 348 k/uL (150-450); RBC 3.87 m/uL (3.80-5.40); RDW 16.2 % (11.5-15.5); WBC 9.7 k/uL (3.8-10.6)
[2020-02-02] MEDS: CLOPIDOGREL 75 MG TAB PO SCH (08:28)
[2020-02-02] MEDS: APIXABAN 2.5 MG TABLET PO SCH ×2 (08:28→19:53)
[2020-02-02] MEDS: amLODIPine 5 MG TAB PO SCH (08:28)
[2020-02-02] MEDS: MAGNESIUM OXIDE 400 MG TAB PO SCH (08:28)
[2020-02-02] MEDS: FUROSEMIDE 40 MG TAB PO SCH (08:28)
[2020-02-02] MEDS: MORPHINE SULFATE 4 MG/ML SYRINGE IV PRN ×3 (08:29→22:01)
[2020-02-02] MEDS: METOPROLOL SUCCINATE (ER) 50 MG TAB.ER.24H PO SCH (08:29)
[2020-02-02] MEDS ORDERED: NADOLOL 20 MG TAB PO SCH (09:00)
[2020-02-02] MEDS ORDERED: [UNRECOGNIZED DRUG - OTHER] PO SCH (09:00)
[2020-02-02 11:55] LABS: Glucose,Whole Blood 130 mg/dL (75-99)
[2020-02-02] MEDS: ISOSORBIDE MONONITRATE ER 60 MG TAB.ER.24H PO SCH (12:12)
[2020-02-02] MEDS: EZETIMIBE 10 MG TAB PO SCH (12:12)
--- NOTE | 2020-02-02 14:10 | P.PN ---
Subjective Progress Note Date: 02/02/20 This is a pleasant 49-year-old -[place] female with known history of end-stage renal disease, on hemodialysis, CAD, status post coronary artery bypass grafting done in [place]. She follows with Dr. DIANE Jhaveri in the office. She does have a history of smoking, hypertension and hyperlipidemia. Ec hocardiogram in the past showed preserved LV systolic function. She's had multiple recent admissions to the hospital either [facility]. She presents this time with symptoms of chest discomfort. According to her she's been having this discomfort constantly since Thursday described as pressure and worse with deep inspiration. Overall this morning she's now feeling much better. She does deny any complaints of shortness of breath, dizziness, palpitations or orthopnea. Blood pressure has been elevated at 158/72, 175/84 and 166/81. Labs are relatively stable with improvement in potassium level. Objective - Vital Signs Vital signs: Vital Signs Temp 98.2 F 02/02/20 04:00 Pulse 92 02/02/20 11:50 Resp 16 02/02/20 11:50 BP 166/81 02/02/20 11:50 Pulse Ox 98 02/02/20 11:50 Intake & Output 02/01/20 02/02/20 02/02/20 18:59 06:59 18:59 Intake Total 120 Output Total 2000 200 250 Balance -2000 -200 -130 Weight 73.3 kg 79.2 kg Intake: Oral 120 Output: Urine 200 250 Hemodialysis 2000 Other: Voiding Method Toilet Toilet # Voids 1 1 1 - Exam PHYSICAL EXAMINATION: HEENT: Head is atraumatic, normocephalic. Pupils equal, round. Neck is supple. There is no elevated jugular venous pressure. HEART EXAMINATION: Heart sounds regular, S1 and S2 with a systolic ejection murmur at the base. CHEST EXAMINATION: Lungs are clear to auscultation. No chest wall tenderness is noted on palpation or with deep breathing. ABDOMEN: Soft, nontender. Bowel sounds are heard. No organomegaly noted. EXTREMITIES: 1+ peripheral pulses with evidence of trace peripheral edema and no calf tenderness noted. NEUROLOGIC patient is awake, alert and oriented x3. . - Labs CBC & Chem 7: 02/02/20 07:02 02/02/20 07:02 Labs: Abnormal Lab Results - Last 24 Hours (Table) 02/01/20 02/01/20 02/01/20 Range/Units 15:10 17:09 18:25 Hgb (11.4-16.0) gm/dL Hct (34.0-46.0) % MCV (80.0-100.0) fL RDW (11.5-15.5) % Sodium 134 L (137-145) mmol/L Potassium 3.4 L (3.5-5.1) mmol/L Carbon Dioxide 33 H (22-30) mmol/L BUN (7-17) mg/dL Creatinine 1.56 H (0.52-1.04) mg/dL Glucose 237 H (74-99) mg/dL POC Glucose (mg/dL) 239 H 217 H (75-99) mg/dL Calcium 8.1 L (8.4-10.2) mg/dL 02/01/20 02/02/20 02/02/20 Range/Units 20:12 06:54 07:02 Hgb 9.8 L (11.4-16.0) gm/dL Hct 29.3 L (34.0-46.0) % MCV 75.8 L (80.0-100.0) fL RDW 16.2 H (11.5-15.5) % Sodium (137-145) mmol/L Potassium (3.5-5.1) mmol/L Carbon Dioxide (22-30) mmol/L BUN (7-17) mg/dL Creatinine (0.52-1.04) mg/dL Glucose (74-99) mg/dL POC Glucose (mg/dL) 192 H 117 H (75-99) mg/dL Calcium (8.4-10.2) mg/dL 02/02/20 02/02/20 Range/Units 07:02 11:53 Hgb (11.4-16.0) gm/dL Hct (34.0-46.0) % MCV (80.0-100.0) fL RDW (11.5-15.5) % Sodium 136 L (137-145) mmol/L Potassium (3.5-5.1) mmol/L Carbon Dioxide (22-30) mmol/L BUN 20 H (7-17) mg/dL Creatinine 2.06 H (0.52-1.04) mg/dL Glucose 111 H (74-99) mg/dL POC Glucose (mg/dL) 130 H (75-99) mg/dL Calcium (8.4-10.2) mg/dL Assessment and Plan Assessment: #1 symptoms of chest discomfort in a patient with known history of CAD procedure systolic function in the past. Symptoms of chest discomfort have been there before and not consistent with acute coronary syndrome, appears to be chronic. Cardiac enzymes are negative. #2 status post coronary artery bypass grafting #3 end-stage renal disease, on hemodialysis, NT proBNP elevation does not reflect heart failure at this point #4 hypertension #5 chronic tobacco use #6 diabetes mellitus #7 hyperlipidemia Plan: From cardiology's perspective, chest pain is not consistent with acute coronary syndrome. No further cardiac workup during this admission. She will follow-up in the office as an outpatient with Dr. DIANE Jhaveri. MEDICAL UNIT SECRETARY note has been reviewed, I agree with a documented findings and plan of care. Patient was seen and examined.
[2020-02-02 17:08] LABS: Glucose,Whole Blood 117 mg/dL (75-99)
[2020-02-02] MEDS: methylPREDNISolone SOD SUCCI 40 MG/ML 1 ML VIAL IV SCH ×2 (17:37→22:01)
[2020-02-02 19:52] LABS: Glucose,Whole Blood 270 mg/dL (75-99)
[2020-02-02] MEDS ORDERED: INSULIN DETEMIR (LEVEMIR) 100 UNIT/ML SYR SQ SCH (21:00)
[2020-02-02] MEDS ORDERED: ALBUTEROL NEBULIZED 2.5 MG/3 ML INHALATION PRN (21:09)
[2020-02-02] MEDS ORDERED: MONTELUKAST 10 MG TAB PO SCH (21:30)
--- NOTE | 2020-02-02 22:05 | PN ---
PROGRESS NOTE Patient is seen for followup for end-stage renal disease. Patient was dialyzed yesterday. She tolerated her treatment well. She is complaining of vague chest pain on and off. Patient has been evaluated by Cardiology. Cardiac enzymes are currently negative. She has been advised to follow up as an outpatient. O/E Pt is comfortable. VSS Pt is euvolemic Lungs are clear. Heart sounds are heard. No murmur abdomen is soft. No edema noted. METER INSPECTOR exam grossly intact Labs noted Assessment 1. ESRD, on HD on MWF schedule. 1. History of diabetic gastroparesis. 2. Hypertension. 3. Type 2 diabetes. PLAN: Hemodialysis in a.m. Possible discharge tomorrow post dialysis. MMODL / IJN: [id number] / [id number]
[2020-02-03 06:55] LABS: Glucose,Whole Blood 425 mg/dL (75-99)
[2020-02-03] MEDS: INSULIN ASPART (NovoLOG) 100 UNIT/ML VIAL SQ SCH ×5 (06:58→17:54)
[2020-02-03] MEDS: SUCRALFATE 1 GM TAB PO SCH ×3 (06:58→17:55)
[2020-02-03] MEDS: hydrALAZINE HCL 50 MG TAB PO SCH ×2 (06:58→17:53)
--- NOTE | 2020-02-03 07:38 | CONS ---
CONSULTATION Sharon Singh is a 49-year-old female who presented to the ED at [facility] with chest pain. This was associated with and started with dialysis about 1 to 2 weeks ago. She started to get worse and subsequently was seen in the ER. She had been having some cough. No clear wheezing and had shortness of breath. She felt like an elephant was sitting on her chest. She had some nausea and emesis as well and subsequently was admitted for further evaluation and management. PAST MEDICAL HISTORY: Positive for chronic renal failure for which she is on dialysis, history of asthma, history of COPD, CVA, TIA, history of myocardial infarction, history of deep vein thrombosis, history of cardiac cath with stent placement, history of coronary artery disease status post coronary artery bypass. FAMILY HISTORY: Positive for asthma and cancer in her mother. Father had history of DVT and myocardial infarction. REVIEW OF SYSTEMS: Noncontributory. MEDICATIONS: Medications prior to admission were: Hydralazine, Norvasc, Carafate, Lyrica, Toprol XL, magnesium oxide, Imdur, DuoNeb, Levemir, Lasix, clopidogrel and apixaban. PHYSICAL EXAMINATION: On physical examination, patient was lying in bed. She continues to have some chest pain on deep breathing. Her blood pressure is 135/65, respiratory rate of 18, pulse 89, temperature 98.5, O2 saturation on room is 93%. HEENT is unremarkable except for mild prominence of the jugular veins. Chest reveals an occasional wheeze on forced exhalation. Cardiovascular system reveals an S1, S2. Abdomen is soft. There is trace to 1+ pedal edema. LABS: Labs reveal any eosinophilia count of 0.5 thousand, which would be considered high. White count of 9.7 thousand, hemoglobin of 9.8. Sodium 136, potassium 3.9, chloride 103, bicarb 30, BUN 20, creatinine of 2.06. CT scan of the chest showed reticular nodular infiltrates that are new compared to her previous CAT scan. IMPRESSION AT THIS TIME: 1. Chest tightness, which may be related to interstitial lung disease within the differential would be hypersensitivity pneumonitis versus other autoimmune etiology. 2. Asthma with acute exacerbation, eosinophilic phenotype. 3. Coronary artery disease. 4. Chronic renal failure. At this point in time from a pulmonary standpoint, would add inhaled steroids. Continue bronchodilators but use them p.r.n. because of her cardiac history. Continue IV steroids. Add montelukast to her regimen. Check WINSOME, rheumatoid factor, HB panel as well as an allergy profile on her. Her prognosis at this time is guarded. I would like to thank you for allowing me to participate in her care. Upon review of her previous labs on 12/15/2019, the patient had extremely high ESR at 108, consistent with ongoing inflammation. MMODL / IJN: [id number] /
[2020-02-03] MEDS ORDERED: BUDESONIDE 0.5 MG/2 ML NEBU INHALATION SCH (08:00)
[2020-02-03] MEDS: CLOPIDOGREL 75 MG TAB PO SCH (08:58)
[2020-02-03] MEDS: methylPREDNISolone SOD SUCCI 40 MG/ML 1 ML VIAL IV SCH (08:58)
[2020-02-03] MEDS: METOPROLOL SUCCINATE (ER) 50 MG TAB.ER.24H PO SCH (08:58)
[2020-02-03] MEDS: FUROSEMIDE 40 MG TAB PO SCH (08:58)
[2020-02-03] MEDS: MORPHINE SULFATE 4 MG/ML SYRINGE IV PRN (08:59)
[2020-02-03] MEDS: amLODIPine 5 MG TAB PO SCH (08:59)
[2020-02-03] MEDS: MAGNESIUM OXIDE 400 MG TAB PO SCH (08:59)
[2020-02-03] MEDS: APIXABAN 2.5 MG TABLET PO SCH (08:59)
[2020-02-03] MEDS ORDERED: ACETAMINOPHEN TAB 325 MG TAB PO PRN (09:55)
[2020-02-03 10:21] LABS: Glucose,Whole Blood 351 mg/dL (75-99)
[2020-02-03] MEDS ORDERED: INSULIN ASPART (NovoLOG) 100 UNIT/ML VIAL SQ ONE (10:50)
[2020-02-03] MEDS: EZETIMIBE 10 MG TAB PO SCH (10:57)
[2020-02-03 12:17] LABS: Glucose,Whole Blood 297 mg/dL (75-99)
--- NOTE | 2020-02-03 14:22 | P.PN ---
Subjective Progress Note Date: 02/03/20 This is a pleasant 49-year-old -Iranian female with known history of end-stage renal disease, on hemodialysis, CAD, status post coronary artery bypass grafting done in [place]. She follows with Dr. DIANE Jhaveri in the office. She does have a history of smoking, hypertension and hyperlipidemia. Ec hocardiogram in the past showed preserved LV systolic function. She's had multiple recent admissions to the hospital either [facility]. She presents this time with symptoms of chest discomfort. According to her she's been having this discomfort constantly since Thursday described as pressure and worse with deep inspiration. Overall this morning she's now feeling much better. She does deny any complaints of shortness of breath, dizziness, palpitations or orthopnea. Blood pressure has been elevated at 158/72, 175/84 and 166/81. Labs are relatively stable with improvement in potassium level. 02/03/2020 The patient was seen and examined this morning. Overall she's feeling about the same. She continues to have ongoing chest discomfort that increases with deep inspiration. She is anticipating undergoing dialysis today. Blood pressure remains elevated with a systolic blood pressure in the 180s today. She is currently on amlodipine 5 mg by mouth twice a day, Eliquis 2.5 mg by mouth twice a day, Plavix 75 mg by mouth daily, that he had 10 mg by mouth daily, Lasix 40 mg by mouth daily, hydralazine 50 mg by mouth every 8 hours, isosorbide 60 mg by mouth daily, and metoprolol succinate 50 mg by mouth daily. Objective - Vital Signs Vital signs: Vital Signs Temp 98.1 F 02/03/20 11:07 Pulse 83 02/03/20 11:07 Resp 18 02/03/20 11:07 BP 167/77 02/03/20 11:07 Pulse Ox 96 02/03/20 11:07 Intake & Output 02/02/20 02/03/20 02/03/20 18:59 06:59 18:59 Intake Total 840 222 380 Output Total 250 150 Balance 590 72 380 Weight 82.1 kg Intake: Oral 840 222 380 Output: Urine 250 150 Other: Voiding Method Toilet Toilet # Voids 1 - Exam PHYSICAL EXAMINATION: HEENT: Head is atraumatic, normocephalic. Pupils equal, round. Neck is supple. There is no elevated jugular venous pressure. HEART EXAMINATION: Heart sounds regular, S1 and S2 with a systolic ejection murmur at the base. CHEST EXAMINATION: Lungs are clear to auscultation. No chest wall tenderness is noted on palpation or with deep breathing. ABDOMEN: Soft, nontender. Bowel sounds are heard. No organomegaly noted. EXTREMITIES: 1+ peripheral pulses with no evidence of peripheral edema and no calf tenderness noted. NEUROLOGIC patient is awake, alert and oriented x3. . - Labs CBC & Chem 7: 02/02/20 07:02 02/02/20 07:02 Labs: Abnormal Lab Results - Last 24 Hours (Table) 02/02/20 02/02/20 02/03/20 Range/Units 16:58 19:52 06:54 POC Glucose (mg/dL) 117 H 270 H 425 H (75-99) mg/dL 02/03/20 02/03/20 Range/Units 10:19 12:08 POC Glucose (mg/dL) 351 H 297 H (75-99) mg/dL Assessment and Plan Assessment: #1 symptoms of chest discomfort in a patient with known history of CAD procedure systolic function in the past. Symptoms of chest discomfort have been there be fore and not consistent with acute coronary syndrome, appears to be chronic. Cardiac enzymes are negative. #2 status post coronary artery bypass grafting #3 end-stage renal disease, on hemodialysis, NT proBNP elevation does not reflect heart failure at this point #4 hypertension #5 chronic tobacco use #6 diabetes mellitus #7 hyperlipidemia Plan: From cardiology's perspective, chest pain is not consistent with acute coronary syndrome. No further cardiac workup during this admission. We will increase amlodipine to 5 mg by mouth twice a day. She will follow-up in the office as an outpatient with Dr. DIANE Jhaveri. At this time we will follow the patient on an as-needed basis. Please do not hesitate to contact us with questions. LABORER STORES note has been reviewed, I agree with a documented findings and plan of care. Patient was seen and examined.
--- NOTE | 2020-02-03 14:51 | PN ---
PROGRESS NOTE The patient is seen for follow up for end-stage renal disease. This morning she is sitting up in bed comfortable. No significant chest pain this morning. PHYSICAL EXAMINATION: Blood pressure was 167/77, heart rate 83 per minute, patient is afebrile. Examination of the heart: S1 and S2. Examination of lungs: Bilateral breath sounds are heard. Abdomen is soft, nontender. Examination of the lower extremities shows no significant edema. RADIOLOGY SUPERVISOR examination grossly intact. LABS: Laboratories show potassium 3.9 yesterday. Hemoglobin 9.8 grams/dL. ASSESSMENT: 1. End-stage renal disease on hemodialysis on a Thursday, Thursday, Thursday schedule. Scheduled for hemodialysis today. 2. Chest pain with negative troponins, status post evaluation by Cardiology. Patient will follow up as an outpatient with Cardiology. 3. Chronic kidney disease, mineral bone disorder. 4. History of volume overload, currently improved. PLAN: The patient can be discharged from Nephrology standpoint after dialysis. She should follow up for dialysis as an outpatient on Thursday. MMODL / IJN: [id number] /
[2020-02-03 17:06] LABS: Glucose,Whole Blood 215 mg/dL (75-99)
--- NOTE | 2020-02-03 17:21 | P.PN ---
Subjective Progress Note Date: 02/02/20 This is a 49-year-old female admitted with chest discomfort, ruled out as an acute coronary event per cardiology and multiple other medical issues. Chest CT report diffuse new pulmonary interstitial infiltrates, bibasilar patchy atelectasis with no suspicious pulmonary mass. Pulmonary consult in place with recommendations pending. Denies nausea vomiting or diarrhea as lightheadedness, dizziness or focal deficits. Afebrile, normal WBC. Objective - Vital Signs Vital signs: Vital Signs Temp 98.2 F 02/02/20 04:00 Pulse 88 02/02/20 04:00 Resp 18 02/02/20 04:00 BP 158/72 02/02/20 04:00 Pulse Ox 97 02/02/20 04:00 Intake & Output 02/01/20 02/02/20 02/02/20 18:59 06:59 18:59 Intake Total 120 Output Total 1999 200 Balance -2000 -200 120 Weight 73.3 kg 79.2 kg Intake: Oral 120 Output: Urine 200 Hemodialysis 1999 Other: Voiding Method Toilet # Voids 1 1 - Exam PHYSICAL EXAM: VITAL SIGNS: [As above] GENERAL: Sitting up in bed, no acute distress HEENT: Conjunctivae normal. eyes normal. Oral mucosa moist NECK: No JVD. No thyroid enlargement. No LNs CARDIOVASCULAR: S1, S2 regular.systolic murmur. Reproducible midsternal left chest tenderness. RESPIRATION: Breath sounds diminished in the bases. No rhonchi or crackles. No bronchial breathing. ABDOMEN: Soft, nontender . No guarding. no masses palpable. No ascites, No hepatosplenomegaly.Bowel sounds heard. LEGS: No edema. no swelling PSYCHIATRY: Alert and oriented X3, mood and affect normal. NERVOUS SYSTEM: Cranial N 2-12 grossly normal. Moves all 4 limbs. No focal deficits. Strength and sensation grossly intact.. Skin: no rash - Labs CBC & Chem 7: 02/02/20 07:02 02/02/20 07:02 Labs: Abnormal Lab Results - Last 24 Hours (Table) 02/01/20 02/01/20 02/01/20 Range/Units 11:37 15:10 17:09 Hgb (11.4-16.0) gm/dL Hct (34.0-46.0) % MCV (80.0-100.0) fL RDW (11.5-15.5) % Sodium 134 L (137-145) mmol/L Potassium 3.4 L (3.5-5.1) mmol/L Carbon Dioxide 33 H (22-30) mmol/L BUN (7-17) mg/dL Creatinine 1.56 H (0.52-1.04) mg/dL Glucose 237 H (74-99) mg/dL POC Glucose (mg/dL) 116 H 239 H (75-99) mg/dL Calcium 8.1 L (8.4-10.2) mg/dL 02/01/20 02/01/20 02/02/20 Range/Units 18:25 20:12 06:54 Hgb (11.4-16.0) gm/dL Hct (34.0-46.0) % MCV (80.0-100.0) fL RDW (11.5-15.5) % Sodium (137-145) mmol/L Potassium (3.5-5.1) mmol/L Carbon Dioxide (22-30) mmol/L BUN (7-17) mg/dL Creatinine (0.52-1.04) mg/dL Glucose (74-99) mg/dL POC Glucose (mg/dL) 217 H 192 H 117 H (75-99) mg/dL Calcium (8.4-10.2) mg/dL 02/02/20 02/02/20 Range/Units 07:02 07:02 Hgb 9.8 L (11.4-16.0) gm/dL Hct 29.3 L (34.0-46.0) % MCV 75.8 L (80.0-100.0) fL RDW 16.2 H (11.5-15.5) % Sodium 136 L (137-145) mmol/L Potassium (3.5-5.1) mmol/L Carbon Dioxide (22-30) mmol/L BUN 20 H (7-17) mg/dL Creatinine 2.06 H (0.52-1.04) mg/dL Glucose 111 H (74-99) mg/dL POC Glucose (mg/dL) (75-99) mg/dL Calcium (8.4-10.2) mg/dL Assessment and Plan Assessment: Chest discomfort, acute coronary event ruled out as per cardiology. Suspect musculoskeletal in nature given reproducible pain. CAD, history of CABG End-stage renal disease on hemodialysis Hypertension Hyperlipidemia Chronic nicotine dependence Diabetes mellitus Bipolar Plan: Continue on current medication regime ,monitoring and symptomatic treatment. Start dose of IV steroids ordered .Pulmonary consult in place. Aggressive pulmonary toileting with incentive spirometer reinforced. Discharge planning in progress for after hemodialysis tomorrow. Smoking cessation reinforced. Further recommendations to follow. The impression and plan of care has been dictated as directed. : I performed a history and examination of this patient, discussed the same with the dictator. I agree with the dictator's note ,documented as a scribe. Any additional findings or plans will be noted.
--- NOTE | 2020-02-03 17:27 | P.DS ---
Providers Date of admission: 02/01/20 02:10 Expected date of discharge: 02/03/20 Attending physician: Pavel Velasquez Consults: 02/01/20 02:07 Consult Physician Urgent Consulting Provider: [facility] Consult Reason/Comments: acute chest pain, hx ascad Do you want consulting provider notified?: Yes Consult Physician Urgent Consulting Provider: Keila Downs Consult Reason/Comments: esrd on hd Do you want consulting provider notified?: Yes 02/01/20 22:01 Consult Physician Routine Consulting Provider: Jh Jhaveri Consult Reason/Comments: cp Do you want consulting provider notified?: Yes Primary care physician: [facility] Course: Final Diagnoses: Chest discomfort, acute coronary event ruled out as per cardiology. Suspect musculoskeletal in nature given reproducible pain. Possible mild asthma exacerbation. CAD, history of CABG End-stage renal disease on hemodialysis Hypertension Hyperlipidemia Chronic nicotine dependence Diabetes mellitus [facility] course:This is a 49-year-old female admitted with chest discomfort, ruled out as an acute coronary event per cardiology and multiple other medical issues. Chest CT report diffuse new pulmonary interstitial infiltrates, bibasilar patchy atelectasis with no suspicious pulmonary mass. Pulmonary consult in place with recommendations pending. Denies nausea vomiting or diarr hea as lightheadedness, dizziness or focal deficits. Afebrile, normal WBC. Significant clinical improvement. Patient has been cleared by cardiology and nephrology for discharge. Patient is being discharged home in a stable condition with guarded prognosis after hemodialysis completed. EXAM: GENERAL: Alert and oriented 3, no acute distress CARDIOVASCULAR: S1, S2 regular.systolic murmur. RESPIRATION: Breath sounds diminished in the bases. No rhonchi, crackles or wheezing. ABDOMEN: Soft, nontender . No guarding. no masses palpable. Bowel sounds heard. NEURO: No focal deficits The impression and plan of care has been dictated as directed. : I performed a history and examination of this patient, discussed the same with the dictator. I agree with the dictator's note ,documented as a scribe. Any additional findings or plans will be noted. Patient Condition at Discharge: Stable Plan - Discharge Summary Discharge Rx Participant: Yes New Discharge Prescriptions: New Isosorbide Mononitrate ER [Imdur] 60 mg PO 1200 #30 tab.er.24h Montelukast [Singulair] 10 mg PO HS #30 tab Acetaminophen Tab [Tylenol] 650 mg PO Q6HR PRN tab PRN Reason: Fever And/ Or Pain Ezetimibe [Zetia] 10 mg PO DAILY #30 tab predniSONE 10 mg PO DIRECTED #30 tab Continue Clopidogrel Bisulfate [Plavix] 75 mg PO DAILY #30 tablet Ipratropium-Albuterol Nebulize [Duoneb 0.5 mg-3 mg/3 ml Soln] 3 ml INHALATION RT-QID Pregabalin [Lyrica] 75 mg PO DAILY hydrALAZINE HCL [Apresoline] 50 mg PO Q8H Metoprolol Succinate (ER) [Toprol XL] 50 mg PO DAILY Insulin Detemir [Levemir Flextouch] 6 units SQ HS amLODIPine [Norvasc] 5 mg PO DAILY Sucralfate [Carafate] 1 gm PO ACHS Furosemide [Lasix] 40 mg PO DAILY Apixaban [Eliquis] 2.5 mg PO BID Renavtie 1 tab PO DAILY Magnesium Oxide 400 mg PO DAILY Discontinued Isosorbide Mononitrate ER [Imdur] 30 mg PO DAILY Discharge Medication List Clopidogrel Bisulfate [Plavix] 75 mg PO DAILY #30 tablet 04/19/19 [Rx] Ipratropium-Albuterol Nebulize [Duoneb 0.5 mg-3 mg/3 ml Soln] 3 ml INHALATION RT-QID 06/10/19 [History] Apixaban [Eliquis] 2.5 mg PO BID 02/01/20 [History] Furosemide [Lasix] 40 mg PO DAILY 02/01/20 [History] Insulin Detemir [Levemir Flextouch] 6 units SQ HS 02/01/20 [History] Magnesium Oxide 400 mg PO DAILY 02/01/20 [History] Metoprolol Succinate (ER) [Toprol XL] 50 mg PO DAILY 02/01/20 [History] Pregabalin [Lyrica] 75 mg PO DAILY 02/01/20 [History] Renavtie 1 tab PO DAILY 02/01/20 [History] Sucralfate [Carafate] 1 gm PO ACHS 02/01/20 [History] amLODIPine [Norvasc] 5 mg PO DAILY 02/01/20 [History] hydrALAZINE HCL [Apresoline] 50 mg PO Q8H 02/01/20 [History] Acetaminophen Tab [Tylenol] 650 mg PO Q6HR PRN tab 02/03/20 [Rx] Ezetimibe [Zetia] 10 mg PO DAILY #30 tab 02/03/20 [Rx] Isosorbide Mononitrate ER [Imdur] 60 mg PO 1200 #30 tab.er.24h 02/03/20 [Rx] Montelukast [Singulair] 10 mg PO HS #30 tab 02/03/20 [Rx] predniSONE 10 mg PO DIRECTED #30 tab 02/03/20 [Rx] Follow up Appointment(s)/Referral(s): Oliverio Jhaveri MD [STAFF PHYSICIAN] - 1 Week ([employer]er [employer] - please call for hospital follow up appointment. ) Pavel Velasquez MD [Primary Care Provider] - 3 Days (Office closed for lunch, please keep upcoming scheduled appointment. ) [facility], [NON-STAFF] - Jh Jhaveri MD [STAFF PHYSICIAN] - 1 Week (Pulmonary follow up regarding asthma and new medications for breathing. Please call and follow up within 1-2 weeks after being discharged. ) Patient Instructions/Handouts: Angina (DC), Asthma (DC) Activity/Diet/Wound Care/Special Instructions: DC after hemodialysis Diet: Consistent carb
[2020-02-03] MEDS: ISOSORBIDE MONONITRATE ER 60 MG TAB.ER.24H PO SCH (17:53)
[2020-02-03 18:14] VITALS: BP 156/71; PULSE 80; RESP 20; TEMP 98.2
--- NOTE | 2020-02-03 20:43 | P.PN ---
Subjective Progress Note Date: 02/03/20 Principal diagnosis: Interstitial lung disease, acute asthma, coronary artery disease, chronic renal failure, 02/03/2020, patient seen eval examined during the rounds labs reviewed medications reviewed care plan discussed with the patient, patient the is doing better in terms of breathing he remains on IV steroids and breathing treatments, patient is being discharged home with follow-up with primary ocularist Objective - Vital Signs Vital signs: Vital Signs Temp 98.2 F 02/03/20 18:13 Pulse 80 02/03/20 18:13 Resp 20 02/03/20 18:13 BP 156/71 02/03/20 18:13 Pulse Ox 96 02/03/20 11:07 Intake & Output 02/03/20 02/03/20 02/04/20 06:59 18:59 06:59 Intake Total 222 740 Output Total 150 2000 Balance 72 -1260 Weight 82.1 kg Intake: Oral 222 740 Output: Urine 150 Hemodialysis 2000 Other: Voiding Method Toilet # Voids 1 - Exam HEENT: Head is atraumatic, normocephalic. Pupils equal, round. Neck is supple. There is no elevated jugular venous pressure. HEART EXAMINATION: Heart sounds regular, S1 and S2 with a systolic ejection murmur at the base. CHEST EXAMINATION: Lungs are clear to auscultation. No chest wall tenderness is noted on palpation or with deep breathing. ABDOMEN: Soft, nontender. Bowel sounds are heard. No organomegaly noted. EXTREMITIES: 1+ peripheral pulses with no evidence of peripheral edema and no calf tenderness noted. NEUROLOGIC patient is awake, alert and oriented x3. - Labs CBC & Chem 7: 02/02/20 07:02 02/02/20 07:02 Labs: Abnormal Lab Results - Last 24 Hours (Table) 02/03/20 02/03/20 02/03/20 Range/Units 06:54 10:19 12:08 POC Glucose (mg/dL) 425 H 351 H 297 H (75-99) mg/dL 02/03/20 Range/Units 17:02 POC Glucose (mg/dL) 215 H (75-99) mg/dL Assessment and Plan Assessment: Chest tightness Atypical chest pain Acute asthma COPD Coronary artery disease End-stage renal disease Diabetes mellitus Plan: Continue breathing treatments and anti-leukotriene's increase activity as tolerated agree with discharge planning follow-up with the primary ocularist as outpatient
[2020-02-03] MEDS ORDERED: amLODIPine 5 MG TAB PO SCH (21:00)
[2020-02-04] MEDS ORDERED: predniSONE 20 MG TAB PO SCH (09:00)
[2020-02-06 11:24] LABS: Alt. alternata IgE Class CLASS 1; Alternaria alternata IgE 0.49 kU/L (<0.10); Asperg. fumagatus IgE <0.10 kU/L (<0.10); Asperg. fumagatus IgE Class CLASS 0; Bermuda Grass IgE <0.10 kU/L (<0.10); Birch(Com.Silvr) IgE <0.10 kU/L (<0.10); Birch(Com.Silvr) IgE Class CLASS 0; Cat Epith & Dander IgE Class CLASS 0/1; Clad herbarum IgE <0.10 kU/L (<0.10); Clad herbarum IgE Class CLASS 0; Cockroach IgE <0.10 kU/L (<0.10); Cottonwood IgE <0.10 kU/L (<0.10); Dermato. Pteronyssinus Class CLASS 2; Dermato. Pteronyssinus IgE 1.03 kU/L (<0.10); Dermato. farinae IgE 0.83 kU/L (<0.10); Dermato. farinae IgE Class CLASS 2; Dog Dander IgE 0.87 kU/L (<0.10); Elm IgE <0.10 kU/L (<0.10); IgE (Allergen) 29.7 IU/mL (<114.0); Maple (Box Elder) IgE <0.10 kU/L (<0.10); Maple (Box Elder) IgE Class CLASS 0; Mountain Cedar IgE <0.10 kU/L (<0.10); Mountain Cedar IgE Class CLASS 0; Mouse Urine IgE Class CLASS 0/1; Mouse Urine Proteins,IgE 0.24 kU/L (<0.10); Nettle IgE <0.10 kU/L (<0.10); Nettle IgE Class CLASS 0; Oak IgE <0.10 kU/L (<0.10); Penicillium chrysogenum IgE <0.10 kU/L (<0.10); Penicillium chrysogenum IgE Cl CLASS 0; Rough Marshelder IgE <0.10 kU/L (<0.10); Rough Marshelder IgE Class CLASS 0; Timothy Grass IgE <0.10 kU/L (<0.10); Timothy Grass IgE Class CLASS 0; White Ash IgE Class CLASS 0
--- NOTE | 2020-02-07 10:42 | CDI ---
Documentation Clarification Form Date: 02/07/20 From: Cindy Marcum CCS Phone: If you have a question about this query, please contact Francine Lee, Powerhouse Mechanic at [phone] between 8am and 5pm. Admit Date: 02/01/20 Discharge Date: 02/03/20 Patient Name: Sharon Singh Visit Number: [id number] ATTENTION: The Clinical Documentation Specialists (CDI) and [facility] Coding Staff appreciate your assistance in clarifying documentation. Please respond to the clarification below the line at the bottom and electronically sign. The CDI & [facility] Coding staff will review the response and follow-up if needed. Please note: Queries are made part of the Legal Health Record. If you have any questions, please contact the author of this message via ITS. Dear Dr. Velasquez, Chronic CHF is documented in the ED, Consult, PNs. History/Risk Factors: CAD, HTN, DM, ESRD, Bifascicular Block Clinical Indicators: Pulmonary Edema VS/Pulse OX: BP 187/101, RR 18, HI 85, O2 Sat 96 BNP: [id number] Chest X Ray: There is reticular diffuse pulmonary interstitial infiltrates that is new compared to old exam.There is patchy atelectasis at the lung bases that is mostly new compared to old exam.No suspicious pulmonary mass.Heart appears increased in size compared to old exam.Lung disease and enlarged heart would be consistent with new heart failure compared to old exam. Treatment: Lasix 40 mg PO daily In your professional opinion, can you please clarify the acuity and type of CHF if known? Systolic Heart Failure: Acute Chronic Acute on Chronic Diastolic Heart Failure: Acute Chronic Acute on Chronic Systolic & Diastolic Heart Failure: Acute Chronic Acute on Chronic Heart Failure Unable to Determine Other, please specify MTDD
[2020-02-07 22:49] LABS: Aspergillus fumigatus IgG Not detected (Not detected); Aureobasidium pullulans IgG 10.1 mcg/mL (< 13.6); Cladosporium herbarium IgG 26.9 mcg/mL (< 14.7); Phoma ssp. IgG 16.8 mcg/mL (< 6.6); Saccaharomospora viridis Not detected (Not detected); Saccaharopoly. rectivirgula Not detected (Not detected)
--- NOTE | 2020-02-09 08:28 | DS ---
DISCHARGE SUMMARY ADDENDUM TO DISCHARGE SUMMARY Please add: Acute on chronic systolic heart failure and diastolic heart failure combined. MMODL / IJN: [id number] /
--- NOTE | 2020-02-10 07:42 | CDI ---
Documentation Clarification Form Date: 02/10/20 From: Cindy Marcum CCS Phone: If you have a question about this query, please contact Francine Lee, Acquisitions Editor at [phone] between 8am and 5pm. Admit Date: 02/01/20 Discharge Date:02/03/20 Patient Name: Sharon Singh Visit Number: [id number] ATTENTION: The Clinical Documentation Specialists (CDI) and [facility] Coding Staff appreciate your assistance in clarifying documentation. Please respond to the clarification below the line at the bottom and electronically sign. The CDI & [facility] Coding staff will review the response and follow-up if needed. Please note: Queries are made part of the Legal Health Record. If you have any questions, please contact the author of this message via ITS. Dear Dr. Velasquez, Chest pain is documented in the ED, Consult, PNs, DS. History/Risk factors: ESRD, HHD, CHF w/ Exac, Lupus, CAD, COPD, Asthma w/Exac. Clinical Indicators: Chest pain Labs: BNP 14,700, Troponin .015, .034 Treatment: Dialysis, Morphine 4 mg IV Q4HR, Consults: Alexis Jhaveri In your professional opinion, can please clarify if the chest pain signifies, or is due to: Interstitial lung disease CAD with angina (specify vessel and type of angina if known) Bifascicular block Acute/Chronic heart failure Asthma exacerbation Costochondritis Atelectasis Anxiety Psychogenic chest pain Other condition, please specify Unable to determine MTDD
--- NOTE | 2020-02-12 11:41 | DS ---
DISCHARGE SUMMARY ADDENDUM: Please add to discharge summary: DISCHARGE DIAGNOSES: 1. Acute on chronic systolic and diastolic heart failure with coronary artery disease. 2. Chest pain secondary to costochondritis. 3. Chronic obstructive pulmonary disease/asthma exacerbation. MMODL / IJN: [id number] /
== END 2020-02-03 18:36 | disposition home health service (06) ==
LOC: EC 20:34 → 3SCARD 02-01 02:10 → INTOOBSV 02-01 02:10 → 3SCARD 02-01 17:41 → UNDODISIN 02-03 18:36
PROVIDERS: ADMIT Family Medicine; ATTEND Family Medicine
PROC: 5A1D70Z Performance of Urinary Filtration, Intermittent, Less than 6 Hours Per Day (ICD-10-PCS; principal; 2020-02-01)
DX: M94.0 Chondrocostal junction syndrome [Tietze] (principal); N18.6 End stage renal disease; I13.2 Hypertensive heart and chronic kidney disease with heart failure and with stage 5 chronic kidney disease, or end stage renal disease; I50.43 Acute on chronic combined systolic (congestive) and diastolic (congestive) heart failure; D68.2 Hereditary deficiency of other clotting factors; J45.901 Unspecified asthma with (acute) exacerbation; I45.2 Bifascicular block; J98.11 Atelectasis; E83.9 Disorder of mineral metabolism, unspecified; E11.22 Type 2 diabetes mellitus with diabetic chronic kidney disease; E11.43 Type 2 diabetes mellitus with diabetic autonomic (poly)neuropathy; M32.9 Systemic lupus erythematosus, unspecified; I25.10 Atherosclerotic heart disease of native coronary artery without angina pectoris; K31.84 Gastroparesis; J44.9 Chronic obstructive pulmonary disease, unspecified; E78.5 Hyperlipidemia, unspecified; F31.9 Bipolar disorder, unspecified; F41.9 Anxiety disorder, unspecified; E87.6 Hypokalemia; F17.210 Nicotine dependence, cigarettes, uncomplicated; Z79.01 Long term (current) use of anticoagulants; Z79.4 Long term (current) use of insulin; Z79.02 Long term (current) use of antithrombotics/antiplatelets; Z79.899 Other long term (current) drug therapy; Z88.1 Allergy status to other antibiotic agents; Z91.040 Latex allergy status; Z88.2 Allergy status to sulfonamides; Z88.8 Allergy status to other drugs, medicaments and biological substances; Z91.018 Allergy to other foods; Z99.2 Dependence on renal dialysis; Z95.1 Presence of aortocoronary bypass graft; Z86.718 Personal history of other venous thrombosis and embolism; Z87.01 Personal history of pneumonia (recurrent); Z86.19 Personal history of other infectious and parasitic diseases; Z86.73 Personal history of transient ischemic attack (TIA), and cerebral infarction without residual deficits; I25.2 Old myocardial infarction; Z95.5 Presence of coronary angioplasty implant and graft; Z98.51 Tubal ligation status; Z91.19 Patient's noncompliance with other medical treatment and regimen; Z82.5 Family history of asthma and other chronic lower respiratory diseases; Z82.49 Family history of ischemic heart disease and other diseases of the circulatory system; Z80.9 Family history of malignant neoplasm, unspecified; Z83.2 Family history of diseases of the blood and blood-forming organs and certain disorders involving the immune mechanism
CPT/HCPCS: 96376 ×4; 96375 ×3; 93005 ×2; 96374; 99285; 36415; 85379; 86003; 83880; 80053; 80048 ×2; 86001; 85652; 82550; 83690; 83735 ×3; 84484 ×2; 85025 ×2; 85610; 85730; 86431; 86609; 86606; 82785; 86038; 71046; 71250; G0257 ×2; G0378 ×3; J2270 ×4; J0360; J2920 ×2; J1642; 90935

== ENCOUNTER 2020-03-12 20:27 | Emergency (ER) | payer MEDICARE, OTHER ==
[2020-03-12] MEDS ORDERED: ONDANSETRON 4 MG/2 ML VIAL IVP STA (21:10)
[2020-03-12] MEDS ORDERED: MORPHINE SULFATE 2 MG/ML SYRINGE IVP STA (21:10)
[2020-03-12 22:08] LABS: Anisocytosis Slight; Basophils % (A) 0 %; Eosinophils # (A) 0.2 k/uL (0-0.7); Eosinophils % (A) 2 %; HCT 33.4 % (34.0-46.0); HGB 11.1 gm/dL (11.4-16.0); Lymphocytes # (A) 1.5 k/uL (1.0-4.8); Lymphocytes % (A) 14 %; MCH 25.9 pg (25.0-35.0); MCHC 33.3 g/dL (31.0-37.0); MCV 77.8 fL (80.0-100.0); Mean Platelet Volume 7.3; Microcytosis Slight; Monocytes # (A) 0.4 k/uL (0-1.0); Monocytes % (A) 4 %; Neutrophils # (A) 7.8 k/uL (1.3-7.7); Neutrophils % (A) 77 %; Platelet Count 345 k/uL (150-450); RDW 16.9 % (11.5-15.5); WBC 10.2 k/uL (3.8-10.6)
--- NOTE | 2020-03-12 22:10 | CT ---
EXAMINATION TYPE: CT brain m[facility]son DATE OF EXAM: 03/12/2020 COMPARISON: None HISTORY: Fall head injury. Headache Neck pain CT DLP: 1372.8 mGycm Automated exposure control for dose reduction was used. Ventricles have normal size. There is no mass effect nor midline shift. There is no sign of intracran ial hemorrhage. There is 1 cm area of hypodensity anterior left internal capsule and also 1.5 cm hypo dense area left parietal lobe white matter. There is no midline shift. There is no sign of intracrani al hemorrhage. The calvarium is intact. Cervical vertebra show some straightening. Disc spaces are fairly normal. Facet joints appear normal. There is no evidence for fracture. Skull base is intact. IMPRESSION: Lacunar infarcts appear old in the left internal capsule and left parietal lobe white matter. No acut e intracranial abnormality. Negative CT scan cervical spine. No fracture.
--- NOTE | 2020-03-12 22:12 | XR ---
EXAMINATION TYPE: XR chest 2V DATE OF EXAM: 03/12/2020 COMPARISON: 01/31/2020 HISTORY: Chest pain TECHNIQUE: FINDINGS: Heart appears slightly enlarged. There is dual-lumen left central venous catheter with tip in the right atrium. There is right-sided central venous catheter with tip in the superior vena cava. There are chest leads. There is no heart failure. Costophrenic angles are clear. Lungs are clear of consolidation. IMPRESSION: Mild cardiomegaly. There is clearing of the mild pulmonary interstitial edema compared to last exam. No heart failure or pleural effusion.
[2020-03-12 22:19] LABS: INR 0.9 (<1.2); Partial Thromboplastin Time 29.9 sec (22.0-30.0); Prothrombin Time 9.9 sec (9.0-12.0)
[2020-03-12 22:20] LABS: Albumin 3.3 g/dL (3.5-5.0); Calcium 8.8 mg/dL (8.4-10.2); Magnesium 1.9 mg/dL (1.6-2.3); Potassium 3.6 mmol/L (3.5-5.1); Total Bilirubin 0.5 mg/dL (0.2-1.3); Total Protein 6.7 g/dL (6.3-8.2)
[2020-03-12] MEDS ORDERED: ACETAMINOPHEN TAB 500 MG TAB PO STA (22:48)
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
[2020-03-12 23:28] VITALS: BP 154/77; PULSE 82; RESP 16; TEMP 97.5
== END 2020-03-12 23:31 | disposition home or self-care (01) ==
LOC: EC 20:27
DX: S09.90XA Unspecified injury of head, initial encounter (principal); R07.9 Chest pain, unspecified; E11.9 Type 2 diabetes mellitus without complications; I25.2 Old myocardial infarction; I11.0 Hypertensive heart disease with heart failure; I50.9 Heart failure, unspecified; J44.9 Chronic obstructive pulmonary disease, unspecified; F17.200 Nicotine dependence, unspecified, uncomplicated; Z79.51 Long term (current) use of inhaled steroids; Z79.01 Long term (current) use of anticoagulants; Z79.4 Long term (current) use of insulin; Z79.82 Long term (current) use of aspirin; Z79.899 Other long term (current) drug therapy; Z79.02 Long term (current) use of antithrombotics/antiplatelets; Z88.2 Allergy status to sulfonamides; Z88.1 Allergy status to other antibiotic agents; Z88.8 Allergy status to other drugs, medicaments and biological substances; Z91.018 Allergy to other foods; Z91.040 Latex allergy status; Z86.73 Personal history of transient ischemic attack (TIA), and cerebral infarction without residual deficits; Z86.718 Personal history of other venous thrombosis and embolism; Z95.5 Presence of coronary angioplasty implant and graft; Z95.1 Presence of aortocoronary bypass graft; W01.0XXA Fall on same level from slipping, tripping and stumbling without subsequent striking against object, initial encounter; Y92.009 Unspecified place in unspecified non-institutional (private) residence as the place of occurrence of the external cause
CPT/HCPCS: 36415; 93005; 80053; 83690; 83735; 84484; 85025; 85610; 85730; 71046; 72125; 70450; 99285; 96374; 96375; J2405; J2270

== ENCOUNTER 2020-04-23 13:09 | Inpatient (IN) | payer MEDICARE, OTHER ==
[2020-04-23] MEDS ORDERED: ONDANSETRON 4 MG/2 ML VIAL IVP STA (14:21)
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
[2020-04-23] MEDS ORDERED: ONDANSETRON ODT 4 MG TAB PO STA (15:29)
[2020-04-23 16:01] LABS: Calcium 9.2 mg/dL (8.4-10.2); Potassium 4.4 mmol/L (3.5-5.1); Total Bilirubin 0.7 mg/dL (0.2-1.3)
[2020-04-23 16:02] LABS: Anisocytosis Slight; Basophils % (A) 0 %; Eosinophils # (A) 0.1 k/uL (0-0.7); Eosinophils % (A) 2 %; HCT 33.2 % (34.0-46.0); HGB 10.3 gm/dL (11.4-16.0); Lymphocytes # (A) 1.2 k/uL (1.0-4.8); Lymphocytes % (A) 19 %; MCH 25.3 pg (25.0-35.0); MCV 81.5 fL (80.0-100.0); Monocytes # (A) 0.3 k/uL (0-1.0); Monocytes % (A) 4 %; Neutrophils # (A) 4.8 k/uL (1.3-7.7); Neutrophils % (A) 73 %; Platelet Count 287 k/uL (150-450); RBC 4.07 m/uL (3.80-5.40); RDW 16.1 % (11.5-15.5); WBC 6.6 k/uL (3.8-10.6)
--- NOTE | 2020-04-23 16:24 | CT ---
EXAMINATION TYPE: CT abdomen pelvis wo con DATE OF EXAM: 04/23/2020 HISTORY: Abdominal pain and vomiting CT DLP: 602.9 mGycm. Automated Exposure Control for Dose Reduction was Utilized. TECHNIQUE: CT scan of the abdomen and pelvis is performed without oral or IV contrast. COMPARISON: NONE FINDINGS: Within the limitations of a non-contrast study, the following observations are made. LUNG BASES: Partial visualization of overlying sternal wires. Cardiomegaly is present. Three-vessel c oronary artery calcification and/or stents. Large bore right internal jugular dialysis catheter termi nates in right atrium. LIVER/GB: Dependent small calcified gallstones. PANCREAS: No significant abnormality is seen. SPLEEN: No significant abnormality is seen. ADRENALS: No significant abnormality is seen. KIDNEYS: Central punctate calcifications bilaterally favor vascular calcifications, cannot exclude ti ny nonobstructing stones. BOWEL: Suboptimal evaluation bowel without enteric contrast. Diverticula throughout the colon greates t in the sigmoid colon. No convincing CT evidence for acute diverticulitis. GENITAL ORGANS: Anteverted uterus projects to right of midline. LYMPH NODES: Suboptimal evaluation without enteric or IV contrast there appears to be abnormal tissue within the retroperitoneum more prominent than expected for nonopacified bowel loops, some fullness in the proximal to mid abdomen is present. Adenopathy is suspected. OSSEOUS STRUCTURES: No significant abnormality is seen. OTHER: There are bilateral common iliac artery stent graft. There is moderate calcified plaque of the aorta extending into branch vessels. Aneurysm up to 3.2 cm AP diameter axial image 64 Limited abdomi nal aorta with additional more prominent aneurysm distal abdominal aorta measuring up to 3.3 x 3.4 cm image 78 is present. Poor visualization of surrounding fat plane at several levels reference mid aor ta axial image 60. [id number] scattered subcutaneous edema. IMPRESSION: 1. Suboptimal study without enteric or IV contrast. No bowel obstruction. Colonic diverticulosis with out convincing CT evidence for acute diverticulitis. 2. Moderate atherosclerotic change of the aorta extending into branch vessels with bilateral common i liac arterial stent grafts. Ectatic and aneurysmal abdominal aorta. Poor visualization of aorta borde rs, cannot exclude leaking aneurysm. Cannot exclude adjacent abnormal adenopathy. Follow-up advised. Investigation with oral and IV contrast-enhanced study would be beneficial.
[2020-04-23] MEDS ORDERED: IOPAMIDOL CONTRAST (ORAL USE) VIAL PO PRN (16:52)
--- NOTE | 2020-04-23 18:49 | CT ---
EXAMINATION TYPE: CT angio thor/abd pel aorta DATE OF EXAM: 04/23/2020 COMPARISON: Noncontrast exam performed earlier today HISTORY: 50-year-old female with abdominal pain TECHNIQUE: Contiguous axial scanning of the chest, abdomen, and pelvis performed with IV Contrast, pa tient injected with 80 mL of Isovue 370. Delayed images through the abdominal aorta were obtained. Co neha/sagittal reconstructions performed. 3-D reconstructions generated on a dedicated independent wo rkstation. CT DLP: 1219.7 mGycm Automated exposure control for dose reduction was used. FINDINGS: Chest: Right anterior chest wall injection port catheter tip upper right atrium. Left-sided CVC catheter in the lower right atrium. Median sternotomy wires. Heart borderline enlarged. Aorta normal caliber with bovine configuration to the aortic arch. Some soft tissue prominence of the right hilum measuring up to 1.4 cm thick and at the left hilum mandi suring 9 mm. Precarinal lymph node measures 1.2 cm. Mild generalized anasarca change. Qgzv-jz-rnvdzzts upper lung centrilobular emphysema. Septal lines are present throughout. Bands of at electasis at the left base. No pleural effusion. ABDOMEN: Arterial phase imaging of the liver, adrenal glands, spleen, and pancreas shows no gross abnormality. A few punctate nonobstructive 2 mm calculi in the kidneys. Moderate atherosclerotic plaque throughout the abdominal aorta. Bilateral common iliac artery stents are present. No extravasation of contrast. Infrarenal AAA measures up to 4.2 cm. There is increased retroperitonea l periaortic nodularity suggesting underlying lymphadenopathy measuring up to 1.2 cm. Common iliac artery stents are patent. Moderate focal stenotic narrowing at the right common iliac bifurcation. Multiple segments of moderate atelectatic narrowing throughout the left external iliac artery. No dilated small bowel or free air. Normal appendix. Segmental circumferential wall thickening of the colon including the sigmoid colon and rectum. PELVIS: Circumferential bladder wall thickening. Circumferential wall thickening of the rectum with trace pel kevin free fluid. Uterus anteverted. Bilateral ovaries are visualized. BONES: No osseous destructive process. IMPRESSION: 1. MODERATE, MODERATE TO SEVERE ATHEROSCLEROTIC PLAQUE AND CALCIFICATIONS THROUGHOUT THE ABDOMINAL AO RTA WITH AN INFRARENAL AAA MEASURING 4.2 CM. NO EVIDENCE FOR AORTIC RUPTURE OR LEAK. 2. BILATERAL PATENT COMMON ILIAC ARTERY STENTS WITH SEGMENTS OF MODERATE ATHEROSCLEROTIC STENOSES WIT HIN THE EXTERNAL ILIAC ARTERIES. 3. BILATERAL HILAR SOFT TISSUE PROMINENCE MEASURING UP TO 1.4 CM AND INCREASING RETROPERITONEAL/PERIA ORTIC NODULARITY MEASURING UP TO 1.2 CM. FINDINGS SUGGEST UNDERLYING LYMPHADENOPATHY WHICH MAY BE ALEAH CTIVE. SOME DIFFERENTIAL CONSIDERATIONS INCLUDE GRANULOMATOUS DISEASE SUCH SARCOIDOSIS, SYSTEMIC F UNGAL OR MYCOBACTERIAL INFECTION, LYMPHOMA, AND CONNECTIVE TISSUE DISORDERS. IF NO INTERVENTION AT TH IS TIME, CLOSE FOLLOW-UP IS RECOMMENDED. 4. FLUID OVERLOAD WITH GENERALIZED ANASARCA, SEPTAL LINES IN THE LUNGS JUST EARLY INTERSTITIAL EDEMA, AND MILD PELVIC FREE FLUID. 5. SEGMENTS OF CIRCUMFERENTIAL COLONIC WALL THICKENING INCLUDING THE RECTUM. CORRELATE FOR NONSPECIFI C COLITIS. 6. MILD CIRCUMFERENTIAL BLADDER WALL THICKENING. CORRELATE TO EXCLUDE CYSTITIS.
[2020-04-23] MEDS ORDERED: HYDROmorphone 0.5 MG/0.5 ML SYRINGE IVP STA (19:18)
[2020-04-23] MEDS ORDERED: NALOXONE 0.4 MG/ML 1 ML VIAL IV PRN (19:21)
[2020-04-23] MEDS: HYDROmorphone 0.5 MG/0.5 ML SYRINGE IVP SCH ×2 (21:43→22:39)
[2020-04-23] MEDS: methylPREDNISolone SOD SUCCI 125 MG/2 ML VIAL IV SCH (22:26)
--- NOTE | 2020-04-24 01:08 | HP ---
HISTORY AND PHYSICAL A 50-year-old female, nausea, vomiting, diarrhea, abdominal pain. She was found on CT scan that showed severe colitis at which time she was admitted for IV steroids and GI consultation. She has end-stage renal disease, missed dialysis day prior to admission. She had a CT of the abdomen without contrast and then one with contrast to rule out leaking aneurysm which ended up turned out to be negative. GI consult for colitis is pending. MEDICATIONS: See list and included: 1. Toprol 50 mg daily. 2. Lyrica 75 mg daily. 3. 1 tab daily. 4. Carafate 1 gram a.c. daily. 5. Norvasc 5 mg daily. 6. Apresoline 50 q.8 hours. PAST MEDICAL HISTORY: Asthma, blood disorder, COPD, CVA, TIA, diabetes mellitus, DVT, dyslipidemia, hypertension, myocardial infarction, pneumonia, vascular disorder, insulin-dependent diabetes mellitus, history of CHF, factor V, anemia, and lupus. SURGICAL HISTORY: CABG, heart catheterization, stent, tubal ligation. FAMILY HISTORY: Mother had asthma and cancer. Father had myocardial infarction and DVT. Family history of DVT pulmonary embolism. PHYSICAL EXAMINATION: VITAL SIGNS: Stable, afebrile. CARDIOVASCULAR: S1, S2. LUNGS: Rales and rhonchi x4. GI: Decreased bowel sounds x4. Diffuse tenderness to palpation. No mass or organomegaly. HEMATOLOGY: Negative Homans. PSYCH: Fair mood and affect. NEUROLOGIC: Normal. Decreased neuropathy in the lower extremities. Hemoglobin is 10.3, white count 6.6, BUN 35, creatinine 2.53. ASSESSMENT: 1. Acute abdominal pain. 2. Abdominal aortic aneurysm. 3. Acute colitis, acute on chronic colitis. 4. Abdominal pain, diarrhea. Check C diff. Continue with steroids for colitis. GI consultation. Continue home medications. Dr. Downs for dialysis. Status post CAT scan of the chest and abdomen with contrast ruled out any leaking aneurysm. MMODL / IJN: [id number] /
[2020-04-24] MEDS: methylPREDNISolone SOD SUCCI 125 MG/2 ML VIAL IV SCH ×4 (01:43→19:53)
[2020-04-24] MEDS: HYDROmorphone 0.5 MG/0.5 ML SYRINGE IVP SCH ×8 (01:43→22:01)
[2020-04-24 07:19] LABS: Glucose,Whole Blood 291 mg/dL (75-99)
[2020-04-24] MEDS: METOPROLOL SUCCINATE (ER) 50 MG TAB.ER.24H PO SCH ×2 (07:33→20:56)
[2020-04-24] MEDS: FUROSEMIDE 40 MG TAB PO SCH ×2 (07:33→20:55)
[2020-04-24] MEDS: CARVEDILOL 12.5 MG TAB PO SCH ×2 (07:33→16:29)
[2020-04-24] MEDS: MAGNESIUM OXIDE 400 MG TAB PO SCH (07:34)
[2020-04-24] MEDS: SUCRALFATE 1 GM TAB PO SCH ×4 (07:34→20:55)
[2020-04-24] MEDS: ASPIRIN 81 MG PO SCH (07:34)
[2020-04-24] MEDS: INSULIN ASPART (NovoLOG) 100 UNIT/ML VIAL SQ SCH ×4 (07:36→21:14)
[2020-04-24] MEDS: METOCLOPRAMIDE 5 MG TAB PO SCH ×3 (07:44→16:29)
[2020-04-24] MEDS: REPAGLINIDE 0.5 MG PO SCH ×2 (08:22→17:16)
[2020-04-24] MEDS ORDERED: hydrALAZINE HCL 50 MG TAB PO SCH (09:00)
[2020-04-24] MEDS ORDERED: NON FORMULARY DRUG (Rena-Vite 1 TAB) PO SCH (09:00)
[2020-04-24 11:33] LABS: Glucose,Whole Blood 409 mg/dL (75-99)
[2020-04-24] MEDS ORDERED: INSULIN ASPART (NovoLOG) 100 UNIT/ML VIAL SQ ONE (11:51)
[2020-04-24] MEDS: APIXABAN 2.5 MG TABLET PO SCH ×2 (12:37→20:56)
[2020-04-24] MEDS: CLOPIDOGREL 75 MG TAB PO SCH (12:37)
[2020-04-24 12:55] LABS: Anisocytosis Slight; HGB 9.2 gm/dL (11.4-16.0); MCH 27.1 pg (25.0-35.0); MCHC 32.9 g/dL (31.0-37.0); MCV 82.4 fL (80.0-100.0); Mean Platelet Volume 7.8; Platelet Count 312 k/uL (150-450); RDW 16.1 % (11.5-15.5); WBC 10.6 k/uL (3.8-10.6)
[2020-04-24 13:20] LABS: Calcium 9.3 mg/dL (8.4-10.2)
--- NOTE | 2020-04-24 16:17 | CONS ---
CONSULTATION REASON FOR CONSULT: End-stage renal disease. HISTORY OF PRESENT ILLNESS: Patient is a 50-year-old female with end-stage renal disease, on hemodialysis on a Thursday, Thursday, Thursday schedule. She was admitted to the hospital with complaints of decreased oral intake, nausea, not able to eat much. Patient denies fever, chills, vomiting or diarrhea. No significant abdominal pain. No chest pains or cough. PAST MEDICAL HISTORY: End-stage renal disease associated with nephrosclerosis and diabetic nephropathy, status post kidney biopsy. Patient is currently on dialysis for about 4-5 months now. Patient also has a history of COPD, history of CVA, TIA, history of hypertension, dyslipidemia, peripheral vascular disease, previous history of nausea and vomiting associated with gastroparesis, history of CHF and pneumonia, anxiety, bipolar disorder, depression. PAST SURGICAL HISTORY: Coronary artery bypass surgery, cardiac catheterization, coronary stent placement, tubal ligation, dialysis catheter placement. SOCIAL HISTORY: Negative for drug abuse. Patient is currently smoking. No alcohol abuse. MEDICATIONS: Medications prior to admission included Eliquis, Lasix, magnesium, Toprol, Lyrica, Carafate, Марина Twyla, Norvasc, hydralazine, Plavix, Tylenol, Zetia, Imdur, Singulair, prednisone. ALLERGIES: ALLERGIES include ZOCOR, LATEX, KEFLEX, LIPITOR, BACTRIM, TOMATOES. REVIEW OF SYSTEMS: As per HPI. Other systems negative. PHYSICAL EXAMINATION: Patient is comfortable, awake, alert, oriented x3, not in any acute distress. Blood pressure is 189/95, heart rate 84 per minute. She is afebrile. EXAMINATION OF THE HEART: S1 and S2. EXAMINATION OF LUNGS: Decreased breath sounds at bases. ABDOMEN: Soft, non-tender. Examination of lower extremities shows no evidence of edema. COORDINATING PRODUCER exam is grossly intact. LABS: Labs show sodium 134, potassium 4.4 from yesterday, BUN 35, creatinine 2.53. ASSESSMENT: 1. End-stage renal disease, maintained on hemodialysis on a Thursday, Thursday, Thursday schedule. Patient did not have dialysis yesterday. We will plan for treatment tomorrow, as her labs look okay and patient is not volume-overloaded. 2. Nausea with decreased ability to eat; possible diabetic gastroparesis. 3. Hypertension, uncontrolled. I am not sure if patient was taking her medications at home; hopefully it will be better controlled in the hospital. 4. Chronic kidney disease mineral bone disorder. 5. Abdominal pain, status post CT of the abdomen yesterday which did not show any acute findings. PLAN: Hemodialysis in a.m. Check labs today. Encourage increased oral intake. MMODL / IJN: [id number] /
[2020-04-24] MEDS: hydrALAZINE HCL 25 MG TAB PO SCH ×2 (16:28→22:03)
[2020-04-24 16:56] LABS: Glucose,Whole Blood 347 mg/dL (75-99)
[2020-04-24 20:35] LABS: Gliadin AB IgA, Deaminated NEGATIVE (NEGATIVE); Gliadin AB IgA, Unit 5.2 U/mL; Gliadin AB IgG, Deaminated NEGATIVE (NEGATIVE)
[2020-04-24] MEDS: MONTELUKAST 10 MG TAB PO SCH (20:55)
[2020-04-24] MEDS: DICYCLOMINE 20 MG TAB PO PRN (20:56)
[2020-04-24] MEDS ORDERED: INSULIN DETEMIR (LEVEMIR) 100 UNIT/ML SYR SQ SCH (21:00)
[2020-04-24 21:06] LABS: Glucose,Whole Blood 289 mg/dL (75-99)
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
[2020-04-25] MEDS: HYDROmorphone 0.5 MG/0.5 ML SYRINGE IVP SCH ×8 (01:20→22:39)
[2020-04-25] MEDS: methylPREDNISolone SOD SUCCI 125 MG/2 ML VIAL IV SCH ×4 (01:20→19:31)
[2020-04-25] MEDS: MAGNESIUM OXIDE 400 MG TAB PO SCH (07:06)
[2020-04-25] MEDS: hydrALAZINE HCL 25 MG TAB PO SCH ×4 (07:06→21:43)
[2020-04-25] MEDS: APIXABAN 2.5 MG TABLET PO SCH ×2 (07:06→21:38)
[2020-04-25] MEDS: ASPIRIN 81 MG PO SCH (07:06)
[2020-04-25] MEDS: FUROSEMIDE 40 MG TAB PO SCH ×2 (07:06→21:37)
[2020-04-25] MEDS: CLOPIDOGREL 75 MG TAB PO SCH (07:06)
[2020-04-25] MEDS: CARVEDILOL 12.5 MG TAB PO SCH ×2 (07:07→15:49)
[2020-04-25] MEDS: SUCRALFATE 1 GM TAB PO SCH ×4 (07:07→21:39)
[2020-04-25] MEDS: METOCLOPRAMIDE 5 MG TAB PO SCH ×3 (07:07→17:36)
[2020-04-25] MEDS: METOPROLOL SUCCINATE (ER) 50 MG TAB.ER.24H PO SCH ×2 (07:07→21:39)
[2020-04-25] MEDS: REPAGLINIDE 0.5 MG PO SCH ×2 (07:08→17:37)
[2020-04-25 07:15] LABS: Glucose,Whole Blood 482 mg/dL (75-99)
[2020-04-25] MEDS: INSULIN ASPART (NovoLOG) 100 UNIT/ML VIAL SQ SCH ×4 (07:20→21:38)
[2020-04-25] MEDS ORDERED: FAMOTIDINE 20 MG/2 ML VIAL IV SCH (09:00)
[2020-04-25 10:46] LABS: Glucose,Whole Blood 422 mg/dL (75-99)
[2020-04-25] MEDS ORDERED: INSULIN ASPART (NovoLOG) 100 UNIT/ML VIAL SQ ONE (11:00)
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
--- NOTE | 2020-04-25 11:20 | P.PN ---
Subjective Progress Note Date: 04/25/20 This 50-year-old female admitted with nausea vomiting diarrhea, abdominal pain, diabetic gastroparesis , possible colitis, diabetic gastroparesis and multiple other medical issues. Scheduled to receive hemodialysis again today. Evaluated by GI, patient declined any endoscopy testing. Bentyl added to med regime in addition to Pepcid. Hypertensive. Hyperglycemic. Declined lab draws this morning. Denies chest pain, palpitations or shortness of breath. reports nausea earlier this am. No emesis, No diarrhea this morning. Thoracic aorta CT revealed no evidence for aortic rupture or leak, findings as stated below. Afebrile. Objective - Vital Signs Vital signs: Vital Signs Temp 98.2 F 04/25/20 07:00 Pulse 75 04/25/20 07:00 Resp 16 04/25/20 07:00 BP 181/72 04/25/20 07:00 Pulse Ox 97 04/25/20 07:00 Intake & Output 04/24/20 04/25/20 04/25/20 18:59 06:59 18:59 Other: Voiding Method Toilet Toilet # Voids 1 2 - Exam VITAL SIGNS: [As above] GENERAL: Sitting up in bed, no acute distress HEENT: Conjunctivae normal. eyes normal. Oral mucosa moist NECK: No JVD. No thyroid enlargement. No LNs CARDIOVASCULAR: S1, S2 regular.systolic murmur. RESPIRATION: Breath sounds diminished in the bases. No rhonchi or crackles. No bronchial breathing. ABDOMEN: Soft, nondistended, diffuse tenderness. No guarding. no masses palpable. No ascites, No hepatosplenomegaly.Bowel sounds heard. LEGS: No edema. no swelling PSYCHIATRY: Alert and oriented X3, mood and affect normal. NERVOUS SYSTEM: Cranial N 2-12 grossly normal. Moves all 4 limbs. No focal deficits. Strength and sensation grossly intact.. Skin: no rash - Labs CBC & Chem 7: 04/24/20 12:23 04/24/20 12:23 Labs: Abnormal Lab Results - Last 24 Hours (Table) 04/24/20 04/24/20 04/24/20 Range/Units 11:32 12:23 12:23 RBC 3.40 L (3.80-5.40) m/uL Hgb 9.2 L (11.4-16.0) gm/dL Hct 28.0 L (34.0-46.0) % RDW 16.1 H (11.5-15.5) % Sodium 131 L (137-145) mmol/L Chloride 97 L (98-107) mmol/L BUN 45 H (7-17) mg/dL Creatinine 3.22 H (0.52-1.04) mg/dL Glucose 387 H (74-99) mg/dL POC Glucose (mg/dL) 409 H (75-99) mg/dL 04/24/20 04/24/20 04/25/20 Range/Units 16:55 21:04 07:14 RBC (3.80-5.40) m/uL Hgb (11.4-16.0) gm/dL Hct (34.0-46.0) % RDW (11.5-15.5) % Sodium (137-145) mmol/L Chloride (98-107) mmol/L BUN (7-17) mg/dL Creatinine (0.52-1.04) mg/dL Glucose (74-99) mg/dL POC Glucose (mg/dL) 347 H 289 H 482 H (75-99) mg/dL Assessment and Plan Assessment: Acute Abdominal pain, colonic wall thickening on CT, suggestive of acute on chronic nonspecific colitis, diabetic gastroparesis Bladder wall thickening, possible cystitis Abdominal aortic aneurysm, infrarenal, measuring 4.2 cm with no evidence of aortic rupture or leak as per CT Fluid overload with generalized anasarca, interstitial edema and mild pelvic free fluid per CT, currently on daily hemodialysis COPD Bilateral patent common iliac artery stents with moderate stenosis within external iliac arteries Bilateral hilar soft tissue prominence measuring up to 1.4 cm, increasing retroperitoneal, periaortic nodularity 1.2 cm ,suggestive of lymphadenopathy possibly reactive, possibly granulomatous disease, possible sarcoidosis, systemic fungal or mycobacterial infection, lymphoma and connective tissue disorder. Close monitoring /follow-up OP CAD, history of CABG End-stage renal disease on hemodialysis Hypertension Hyperlipidemia Chronic nicotine dependence Diabetes mellitus, uncontrolled, hyperglycemic Bipolar History of CVA, TIA Factor 5 anemia Plan: Continue on current medication regime ,monitoring and symptomatic treatment. Diabetic med regimen adjusted including Levemir dose increased. Hydralazine increased. unable to check for C. diff, no diarrhea since admission. Vascular, pulmonary consulted regarding CT results. As patient declining lab draw today, attempting to obtain labs with dialysis. Prognosis guarded given multiple complex medical issues. The impression and plan of care has been dictated as directed. : I performed a history and examination of this patient, discussed the same with the dictator. I agree with the dictator's note ,documented as a scribe. Any additional findings or plans will be noted.
[2020-04-25 11:44] LABS: Glucose,Whole Blood 388 mg/dL (75-99)
[2020-04-25 12:47] LABS: Calcium 9.3 mg/dL (8.4-10.2); Potassium 4.7 mmol/L (3.5-5.1)
[2020-04-25 13:02] LABS: Anisocytosis Slight; Basophils % (A) 0 %; Eosinophils % (A) 0 %; HCT 32.2 % (34.0-46.0); HGB 10.6 gm/dL (11.4-16.0); Lymphocytes # (A) 0.9 k/uL (1.0-4.8); Lymphocytes % (A) 7 %; MCH 27.7 pg (25.0-35.0); MCHC 32.9 g/dL (31.0-37.0); MCV 84.2 fL (80.0-100.0); Mean Platelet Volume 7.7; Monocytes # (A) 0.3 k/uL (0-1.0); Monocytes % (A) 2 %; Neutrophils # (A) 11.7 k/uL (1.3-7.7); Neutrophils % (A) 90 %; Platelet Count 341 k/uL (150-450); RBC 3.83 m/uL (3.80-5.40); RDW 16.4 % (11.5-15.5)
--- NOTE | 2020-04-25 14:58 | PN ---
PROGRESS NOTE Patient is seen for followup for end-stage renal disease. Patient is scheduled for hemodialysis today. She was admitted to the hospital with decreased oral intake, nausea. Patient has been evaluated by GI and she has refused colonoscopy. No active bleeding noted at this time. Patient also had diarrhea on admission. This seems to have improved. PHYSICAL EXAMINATION: On examination today, blood pressure was 181/72, heart rate 75 per minute, she is afebrile. Examination of the heart S1, S2. Examination of the lungs, decreased breath sounds at the bases. Abdomen is soft, nontender. Examination of lower extremities shows no evidence of edema. MERCHANDISING CONSULTANT exam grossly intact. LABS: Show sodium 135, potassium 4.7, serum creatinine 3.65, hemoglobin 10.6 g/dL. ASSESSMENT: 1. End-stage renal disease, on hemodialysis on a Thursday, Thursday, Thursday schedule. 2. Hypertension, currently uncontrolled. 3. Nausea and vomiting, possibly gastroparesis, being followed by GI. 4. Diarrhea with previous history of C diff colitis and previous colonoscopy which did not show any major abnormal findings. However, this was in 2013 and patient is refusing repeat colonoscopy. PLAN: Hemodialysis today and increase dose of Coreg as blood pressure remains uncontrolled. MMODL / IJN: [id number] /
[2020-04-25] MEDS: DICYCLOMINE 20 MG TAB PO PRN ×2 (15:48→22:31)
[2020-04-25 17:24] LABS: Glucose,Whole Blood 250 mg/dL (75-99)
[2020-04-25] MEDS: PANTOPRAZOLE 40 MG TABLET PO SCH (17:36)
[2020-04-25] MEDS ORDERED: INSULIN DETEMIR (LEVEMIR) 100 UNIT/ML SYR SQ SCH (21:00)
[2020-04-25 21:06] LABS: Glucose,Whole Blood 376 mg/dL (75-99)
[2020-04-25] MEDS: MONTELUKAST 10 MG TAB PO SCH (21:38)
--- NOTE | 2020-04-25 21:40 | P.PN ---
Subjective Progress Note Date: 04/25/20 Principal diagnosis: Abdominal pain, history of C. diff colitis, diarrhea Seen lying in bed with no further diarrhea. Still having some abdominal pain. Also complaining of reflux. Objective - Vital Signs Vital signs: Vital Signs Temp 98.2 F 04/25/20 07:00 Pulse 75 04/25/20 07:00 Resp 16 04/25/20 07:00 BP 181/72 04/25/20 07:00 Pulse Ox 97 04/25/20 07:00 Intake & Output 04/24/20 04/25/20 04/25/20 18:59 06:59 18:59 Other: Voiding Method Toilet Toilet # Voids 1 2 - Exam On physical examination, patient appears comfortable in no apparent distress. HEAD: Normocephalic, atraumatic. EYES: No scleral icterus. No conjunctival injection. MOUTH: No lesions, tongue midline. NECK: Trachea midline, no gross abnormalities. ABDOMEN: Soft, obese and mildly tender to palpation. Bowel sounds are positive. No organomegaly. No guarding or rigidity. EXTREMITIES: No pedal edema. SKIN: No rashes, no jaundice. NEUROLOGIC: Alert and oriented x3. No focal deficits. - Labs CBC & Chem 7: 04/25/20 12:25 04/25/20 12:25 Labs: Abnormal Lab Results - Last 24 Hours (Table) 04/24/20 04/24/20 04/24/20 Range/Units 11:32 12:23 12:23 RBC 3.40 L (3.80-5.40) m/uL Hgb 9.2 L (11.4-16.0) gm/dL Hct 28.0 L (34.0-46.0) % RDW 16.1 H (11.5-15.5) % Sodium 131 L (137-145) mmol/L Chloride 97 L (98-107) mmol/L BUN 45 H (7-17) mg/dL Creatinine 3.22 H (0.52-1.04) mg/dL Glucose 387 H (74-99) mg/dL POC Glucose (mg/dL) 409 H (75-99) mg/dL 04/24/20 04/24/20 04/25/20 Range/Units 16:55 21:04 07:14 RBC (3.80-5.40) m/uL Hgb (11.4-16.0) gm/dL Hct (34.0-46.0) % RDW (11.5-15.5) % Sodium (137-145) mmol/L Chloride (98-107) mmol/L BUN (7-17) mg/dL Creatinine (0.52-1.04) mg/dL Glucose (74-99) mg/dL POC Glucose (mg/dL) 347 H 289 H 482 H (75-99) mg/dL 04/25/20 Range/Units 10:41 RBC (3.80-5.40) m/uL Hgb (11.4-16.0) gm/dL Hct (34.0-46.0) % RDW (11.5-15.5) % Sodium (137-145) mmol/L Chloride (98-107) mmol/L BUN (7-17) mg/dL Creatinine (0.52-1.04) mg/dL Glucose (74-99) mg/dL POC Glucose (mg/dL) 422 H (75-99) mg/dL Assessment and Plan (1) Diarrhea Narrative/Plan: 50-year-old female presenting to the hospital with multiple nonspecific complaints including loose stool, nausea and vomiting present for 3-4 days witho ut any computed tomography scan findings of intra-abdominal pathology. Patient has had diarrhea for months and reports no improvement with Imodium therapy. Prior colonoscopy significant for diverticulosis with last colonoscopy in 2013 which the patient reports resulted in C. diff colitis. She also reports multiple episodes of nonbloody nonbilious emesis. No leukocytosis or fevers on presentation. Unknown etiology, symptoms may be related to functional bowel disorder, viral or bacterial gastroenteritis, or other etiology. Current Visit: Yes Status: Acute Code(s): R19.7 - DIARRHEA, UNSPECIFIED SN OMED Code(s): 00696737 (2) Nausea and vomiting Current Visit: Yes Status: Acute Code(s): R11.2 - NAUSEA WITH VOMITING, UNSPECIFIED SNOMED Code(s): 98113948 Plan: Supportive care Okay for diet Dicyclomine added as needed for abdominal pain Pepcid changed to Protonix due to refractory reflux Stool studies ordered, not submitted TSH and celiac panel were normal Continue supportive care Tight glycemic control Patient is adamant that she does not want further endoscopic evaluation, no plans for endoscopy at this time Thank you for allowing us to participate in the care of the patient we will continue to follow
[2020-04-26] MEDS: methylPREDNISolone SOD SUCCI 125 MG/2 ML VIAL IV SCH ×4 (02:38→21:07)
[2020-04-26] MEDS: HYDROcodone/APAP 5-325MG 1 EACH TAB PO PRN ×2 (03:15→19:47)
[2020-04-26] MEDS: HYDROmorphone 0.5 MG/0.5 ML SYRINGE IVP SCH ×8 (03:23→21:24)
[2020-04-26 06:54] LABS: Glucose,Whole Blood 431 mg/dL (75-99)
[2020-04-26] MEDS: INSULIN ASPART (NovoLOG) 100 UNIT/ML VIAL SQ SCH ×5 (08:09→21:08)
[2020-04-26] MEDS: hydrALAZINE HCL 25 MG TAB PO SCH ×4 (08:10→21:05)
[2020-04-26] MEDS: CARVEDILOL 12.5 MG TAB PO SCH ×2 (08:10→17:22)
[2020-04-26] MEDS: ASPIRIN 81 MG PO SCH (08:11)
[2020-04-26] MEDS: SUCRALFATE 1 GM TAB PO SCH ×4 (08:11→21:07)
[2020-04-26] MEDS: PANTOPRAZOLE 40 MG TABLET PO SCH ×2 (08:11→17:23)
[2020-04-26] MEDS: METOCLOPRAMIDE 5 MG TAB PO SCH ×3 (08:11→17:23)
[2020-04-26] MEDS: FUROSEMIDE 40 MG TAB PO SCH ×2 (08:11→21:07)
[2020-04-26] MEDS: CLOPIDOGREL 75 MG TAB PO SCH (08:11)
[2020-04-26] MEDS: APIXABAN 2.5 MG TABLET PO SCH ×2 (08:11→21:07)
[2020-04-26] MEDS: METOPROLOL SUCCINATE (ER) 50 MG TAB.ER.24H PO SCH ×2 (08:11→21:05)
[2020-04-26] MEDS: MAGNESIUM OXIDE 400 MG TAB PO SCH (08:11)
[2020-04-26] MEDS: REPAGLINIDE 0.5 MG PO SCH ×2 (08:19→17:10)
[2020-04-26 08:55] LABS: Anisocytosis Slight; Basophils % (A) 0 %; Eosinophils # (A) 0.1 k/uL (0-0.7); Eosinophils % (A) 1 %; HCT 29.1 % (34.0-46.0); HGB 9.8 gm/dL (11.4-16.0); Lymphocytes # (A) 0.6 k/uL (1.0-4.8); Lymphocytes % (A) 3 %; MCHC 33.8 g/dL (31.0-37.0); MCV 82.8 fL (80.0-100.0); Mean Platelet Volume 7.4; Monocytes # (A) 0.4 k/uL (0-1.0); Monocytes % (A) 2 %; Neutrophils # (A) 16.9 k/uL (1.3-7.7); Neutrophils % (A) 94 %; Platelet Count 316 k/uL (150-450); RBC 3.51 m/uL (3.80-5.40); RDW 16.7 % (11.5-15.5); WBC 18.1 k/uL (3.8-10.6)
[2020-04-26 09:11] LABS: Calcium 9.2 mg/dL (8.4-10.2); Potassium 4.9 mmol/L (3.5-5.1)
[2020-04-26] MEDS: DICYCLOMINE 20 MG TAB PO PRN (10:00)
[2020-04-26] MEDS: PREGABALIN 75 MG CAP PO SCH ×2 (10:00→21:06)
[2020-04-26 11:51] LABS: Glucose,Whole Blood 443 mg/dL (75-99)
[2020-04-26] MEDS ORDERED: INSULIN ASPART (NovoLOG) 100 UNIT/ML VIAL SQ ONE (12:02)
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
[2020-04-26] MEDS ORDERED: hydrALAZINE HCL 50 MG TAB PO STA (13:27)
--- NOTE | 2020-04-26 13:28 | P.PN ---
Subjective Progress Note Date: 04/26/20 This 50-year-old female admitted with nausea vomiting diarrhea, abdominal pain, diabetic gastroparesis , possible colitis, diabetic gastroparesis and multiple other medical issues. Scheduled to receive hemodialysis again today. Evaluated by GI, patient declined any endoscopy testing. Bentyl added to med regime in addition to Pepcid. Hypertensive. Hyperglycemic. Declined lab draws this morning. Denies chest pain, palpitations or shortness of breath. reports nausea earlier this am. No emesis, No diarrhea this morning. Thoracic aorta CT revealed no evidence for aortic rupture or leak, findings as stated below. Afebrile. 04/26/2020 Evaluated by vascular surgery, recommendations noted and appreciated. Plavix discontinued as patient is scheduled for fistula for hemodialysis next week. Hyperglycemic. Denies chest pain, palpitations or increased shortness of breath. Objective - Vital Signs Vital signs: Vital Signs Temp 97.4 F L 04/26/20 07:00 Pulse 72 04/26/20 07:00 Resp 18 04/26/20 08:20 BP 183/77 04/26/20 13:06 Pulse Ox 98 04/26/20 07:00 Intake & Output 04/25/20 04/26/20 04/26/20 18:59 06:59 18:59 Intake Total 480 Output Total 500 Balance -500 480 Intake: Oral 480 Output: Hemodialysis 500 Other: Voiding Method Toilet Toilet # Voids 1 # Bowel Movements 1 - Exam VITAL SIGNS: [As above] GENERAL: Sitting up in bed, no acute distress HEENT: Conjunctivae normal. eyes normal. Oral mucosa moist NECK: No JVD. No thyroid enlargement. No LNs CARDIOVASCULAR: S1, S2 regular.systolic murmur. RESPIRATION: Breath sounds diminished in the bases. No rhonchi or crackles. No wheezing. ABDOMEN: Soft, nondistended, diffuse tenderness. No guarding. no masses palpable. Positive bowel sounds. LEGS: No edema. no swelling PSYCHIATRY: Alert and oriented X3, mood and affect normal. NERVOUS SYSTEM: Cranial N 2-12 grossly normal. Moves all 4 limbs. No focal deficits. Strength and sensation grossly intact.. Skin: no rash - Labs CBC & Chem 7: 04/26/20 08:32 04/26/20 08:32 Labs: Abnormal Lab Results - Last 24 Hours (Table) 04/25/20 04/25/20 04/26/20 Range/Units 17:03 21:05 06:53 WBC (3.8-10.6) k/uL RBC (3.80-5.40) m/uL Hgb (11.4-16.0) gm/dL Hct (34.0-46.0) % RDW (11.5-15.5) % Neutrophils # (1.3-7.7) k/uL Lymphocytes # (1.0-4.8) k/uL Sodium (137-145) mmol/L BUN (7-17) mg/dL Creatinine (0.52-1.04) mg/dL Glucose (74-99) mg/dL POC Glucose (mg/dL) 250 H 376 H 431 H (75-99) mg/dL 04/26/20 04/26/20 04/26/20 Range/Units 08:32 08:32 11:49 WBC 18.1 H (3.8-10.6) k/uL RBC 3.51 L (3.80-5.40) m/uL Hgb 9.8 L (11.4-16.0) gm/dL Hct 29.1 L (34.0-46.0) % RDW 16.7 H (11.5-15.5) % Neutrophils # 16.9 H (1.3-7.7) k/uL Lymphocytes # 0.6 L (1.0-4.8) k/uL Sodium 131 L (137-145) mmol/L BUN 42 H (7-17) mg/dL Creatinine 3.60 H (0.52-1.04) mg/dL Glucose 373 H (74-99) mg/dL POC Glucose (mg/dL) 443 H (75-99) mg/dL Assessment and Plan Assessment: Acute Abdominal pain, colonic wall thickening on CT, suggestive of acute on chronic nonspecific colitis, diabetic gastroparesis Bladder wall thickening, possible cystitis Abdominal aortic aneurysm, infrarenal, measuring 4.2 cm with no evidence of aortic rupture or leak as per CT Fluid overload with generalized anasarca, interstitial edema and mild pelvic free fluid per CT, currently on daily hemodialysis COPD Bilateral patent common iliac artery stents with moderate stenosis within external iliac arteries Bilateral hilar soft tissue prominence measuring up to 1.4 cm, increasing retroperitoneal, periaortic nodularity 1.2 cm ,suggestive of lymphadenopathy po ssibly reactive, possibly granulomatous disease, possible sarcoidosis, systemic fungal or mycobacterial infection, lymphoma and connective tissue disorder. Close monitoring /follow-up OP CAD, history of CABG End-stage renal disease on hemodialysis Hypertension Hyperlipidemia Chronic nicotine dependence Diabetes mellitus, uncontrolled, hyperglycemic Bipolar History of CVA, TIA Factor V deficiency, anemia Plan: Continue on current medication regime ,monitoring and symptomatic treatment. Plavix placed on hold for upcoming fistula procedure next week. Diabetic med regimen further adjusted with pre-meal insulin added . Hemodialysis as per nephrology. Case management to assist patient with diabetic supplies for discharge planning. Prognosis guarded given multiple complex medical issues. The impression and plan of care has been dictated as directed. : I performed a history and examination of this patient, discussed the same with the dictator. I agree with the dictator's note ,documented as a scribe. Any additional findings or plans will be noted.
[2020-04-26] MEDS: LISINOPRIL 10 MG TAB PO SCH (14:02)
--- NOTE | 2020-04-26 14:45 | PN ---
PROGRESS NOTE Patient is seen for followup for end-stage renal disease. She was admitted to the hospital with decreased oral intake. She tolerated dialysis fairly well yesterday. PHYSICAL EXAMINATION: On examination today, blood pressure is 183/77, heart rate 72 per minute, she is afebrile. Examination of the heart S1, S2. Examination of the lungs, decreased breath sounds at bases. Abdomen is soft, nontender. Examination of the lower extremities shows no evidence of edema. SUSTAINABLE AGRICULTURE FACULTY exam grossly intact. LABS: Show sodium 131, potassium 4.9, BUN 42, creatinine 3.6, hemoglobin 9.8 g/dL. ASSESSMENT: 1. End-stage renal disease, on hemodialysis on a Thursday, Thursday, Thursday schedule. 2. Nausea and vomiting, currently somewhat improved, being followed by GI. 3. Diarrhea with previous history of C diff colitis. 4. Hypertension, uncontrolled. Hydralazine was increased along with the Coreg yesterday. Blood pressure is slightly improved, but remains elevated. We can add JOE inhibitors or angiotensin receptor blockers. PLAN: Add lisinopril and hemodialysis in a.m. MMODL / IJN: [id number] /
[2020-04-26 16:42] LABS: Glucose,Whole Blood 349 mg/dL (75-99)
[2020-04-26 20:53] LABS: Glucose,Whole Blood 175 mg/dL (75-99)
[2020-04-26] MEDS: MONTELUKAST 10 MG TAB PO SCH (21:06)
[2020-04-26] MEDS: INSULIN DETEMIR (LEVEMIR) 100 UNIT/ML SYR SQ SCH (21:08)
[2020-04-27] MEDS: methylPREDNISolone SOD SUCCI 125 MG/2 ML VIAL IV SCH ×4 (02:01→21:21)
[2020-04-27] MEDS: HYDROmorphone 0.5 MG/0.5 ML SYRINGE IVP SCH ×8 (02:06→23:44)
[2020-04-27 03:09] LABS: Amorphous Sediment,Urine Rare /hpf; Appearance,Urine Cloudy (Clear); Bacteria,Urine Many /hpf; Bilirubin,Urine Negative (Negative); Blood,Urine Moderate (Negative); Color,Urine Yellow; Glucose,Urine (UA) 3+ (Negative); Hyaline Casts,Urine 16 /lpf (0-2); Ketones,Urine Negative (Negative); Leukocyte Esterase,Urine Negative (Negative); Mucus,Urine Occasional /hpf; Nitrite,Urine Negative (Negative); Protein,Urine 4+ (Negative); RBC,Urine 8 /hpf (0-5); Specific Gravity,Urine 1.035 (1.001-1.035); Squamous Epithelial Cell,Urine 44 /hpf (0-4); Urobilinogen,Urine <2.0 mg/dL (<2.0); WBC,Urine 22 /hpf (0-5)
--- NOTE | 2020-04-27 06:29 | P.PN ---
Subjective Progress Note Date: 04/26/20 Principal diagnosis: Abdominal pain, history of C. diff colitis, diarrhea Seen lying in bed, the patient is tolerating her diet. She continues to complain of some nonspecific abdominal pain. She had reported copious diarrhea on presentation however has not had one bowel movement since being admitted. Objective - Vital Signs Vital signs: Vital Signs Temp 97.8 F 04/26/20 15:06 Pulse 61 04/26/20 15:06 Resp 16 04/26/20 15:06 BP 178/79 04/26/20 15:06 Pulse Ox 98 04/26/20 15:06 Intake & Output 04/25/20 04/26/20 04/26/20 18:59 06:59 18:59 Intake Total 480 Output Total 500 Balance -500 480 Intake: Oral 480 Output: Hemodialysis 500 Other: Voiding Method Toilet Toilet # Voids 1 # Bowel Movements 1 - Exam On physical examination, patient appears comfortable in no apparent distress. HEAD: Normocephalic, atraumatic. EYES: No scleral icterus. No conjunctival injection. MOUTH: No lesions, tongue midline. NECK: Trachea midline, no gross abnormalities. ABDOMEN: Soft, obese and mildly tender to palpation. Bowel sounds are positive. No organomegaly. No guarding or rigidity. EXTREMITIES: No pedal edema. SKIN: No rashes, no jaundice. NEUROLOGIC: Alert and oriented x3. No focal deficits. - Labs CBC & Chem 7: 04/26/20 08:32 04/26/20 08:32 Labs: Abnormal Lab Results - Last 24 Hours (Table) 04/25/20 04/25/20 04/26/20 Range/Units 17:03 21:05 06:53 WBC (3.8-10.6) k/uL RBC (3.80-5.40) m/uL Hgb (11.4-16.0) gm/dL Hct (34.0-46.0) % RDW (11.5-15.5) % Neutrophils # (1.3-7.7) k/uL Lymphocytes # (1.0-4.8) k/uL Sodium (137-145) mmol/L BUN (7-17) mg/dL Creatinine (0.52-1.04) mg/dL Glucose (74-99) mg/dL POC Glucose (mg/dL) 250 H 376 H 431 H (75-99) mg/dL 04/26/20 04/26/20 04/26/20 Range/Units 08:32 08:32 11:49 WBC 18.1 H (3.8-10.6) k/uL RBC 3.51 L (3.80-5.40) m/uL Hgb 9.8 L (11.4-16.0) gm/dL Hct 29.1 L (34.0-46.0) % RDW 16.7 H (11.5-15.5) % Neutrophils # 16.9 H (1.3-7.7) k/uL Lymphocytes # 0.6 L (1.0-4.8) k/uL Sodium 131 L (137-145) mmol/L BUN 42 H (7-17) mg/dL Creatinine 3.60 H (0.52-1.04) mg/dL Glucose 373 H (74-99) mg/dL POC Glucose (mg/dL) 443 H (75-99) mg/dL Assessment and Plan (1) Diarrhea Narrative/Plan: 50-year-old female presenting to the hospital with multiple nonspecific complaints including loose stool, nausea and vomiting present for 3-4 days without any computed tomography scan findings of intra-abdominal pathology. Patient has had diarrhea for months and reports no improvement with Imodium therapy. Prior colonoscopy significant for diverticulosis with last colonoscopy in 2013 which the patient reports resulted in C. diff colitis. She also reports multiple episodes of nonbloody nonbilious emesis. No leukocytosis or fevers on presentation. Unknown etiology, symptoms may be related to functional bowel disorder, viral or bacterial gastroenteritis, or other etiology. Current Visit: Yes Status: Acute Code(s): R19.7 - DIARRHEA, UNSPECIFIED SNOMED Code(s): 70529272 (2) Nausea and vomiting Current Visit: Yes Status: Acute Code(s): R11.2 - NAUSEA WITH VOMITING, UNSPECIFIED SNOMED Code(s): 80597228 Plan: Supportive care Okay for diet Dicyclomine added as needed for abdominal pain Protonix therapy Stool studies ordered, not submitted as the patient previously reported copious diarrhea has not had a bowel movement since presentation TSH and celiac panel were normal Continue supportive care Tight glycemic control Okay for discharge when otherwise medically stable Thank you for allowing us to participate in the care of the patient the GI service will stand by, please call us back with any questions or concerns
[2020-04-27] MEDS: hydrALAZINE HCL 25 MG TAB PO SCH ×4 (07:22→21:23)
[2020-04-27] MEDS: LISINOPRIL 10 MG TAB PO SCH (07:23)
[2020-04-27] MEDS: ASPIRIN 81 MG PO SCH (07:23)
[2020-04-27] MEDS: METOPROLOL SUCCINATE (ER) 50 MG TAB.ER.24H PO SCH ×2 (07:23→21:24)
[2020-04-27] MEDS: SUCRALFATE 1 GM TAB PO SCH ×4 (07:23→21:25)
[2020-04-27] MEDS: CARVEDILOL 12.5 MG TAB PO SCH ×2 (07:23→17:46)
[2020-04-27] MEDS: PANTOPRAZOLE 40 MG TABLET PO SCH ×2 (07:23→17:46)
[2020-04-27] MEDS: FUROSEMIDE 40 MG TAB PO SCH ×2 (07:23→21:25)
[2020-04-27] MEDS: PREGABALIN 75 MG CAP PO SCH ×2 (07:23→21:23)
[2020-04-27] MEDS: APIXABAN 2.5 MG TABLET PO SCH ×2 (07:24→21:23)
[2020-04-27] MEDS: METOCLOPRAMIDE 5 MG TAB PO SCH ×3 (07:24→17:47)
[2020-04-27] MEDS: MAGNESIUM OXIDE 400 MG TAB PO SCH (07:24)
[2020-04-27] MEDS: REPAGLINIDE 0.5 MG PO SCH ×2 (07:25→17:47)
[2020-04-27] MEDS: INSULIN ASPART (NovoLOG) 100 UNIT/ML VIAL SQ SCH ×7 (07:29→21:21)
[2020-04-27 07:30] LABS: Glucose,Whole Blood 203 mg/dL (75-99)
--- NOTE | 2020-04-27 10:29 | P.PN ---
Subjective Progress Note Date: 04/27/20 Principal diagnosis: Stable COPD End-stage renal disease on hemodialysis Ongoing diarrhea intermittent Abdominal discomfort and pain Infrarenal AAA 04/27/2020, patient seen eval examined during the rounds labs reviewed medications reviewed care plan discussed with the patient, patient is currently undergoing hemodialysis, 1+1 L of fluid is being planned for removed, patient shortness of breath stable on room air saturation is 97% hemodynamic status stable, tolerating dialysis fairly well urine testing is suggestive of the plus for protein many bacteria, we'll put on Levaquin, patient has ALLERGY to cephalosporins and Bactrim Patient has a long-standing history of end-stage renal disease on hemodialysis also has a history of COPD heart failure patient came into the hospital with intermittent abdominal pain nausea, she has been getting dialysis with the last dialysis being on Thursday, she underwent to thoracic aortogram noted to have extensive sclerotic and plaque formation, infrarenal AAA was noted 4.2 cm in size, on specific questioning her cough is stable she has ongoing shortness of breath which is stable on bronchodilators, patient has intermittent diarrhea with history of prior C. difficile colitis, GI service has been seen Objective - Vital Signs Vital signs: Vital Signs Temp 98.1 F 04/27/20 07:00 Pulse 71 04/27/20 07:00 Resp 16 04/27/20 07:00 BP 163/73 04/27/20 07:00 Pulse Ox 97 04/27/20 07:00 Intake & Output 04/26/20 04/27/20 04/27/20 18:59 06:59 18:59 Intake Total 220 Balance 220 Intake: Oral 220 Other: Voiding Method Toilet Toilet Toilet # Voids 1 - Exam - Constitutional General appearance: average body habitus, cooperative, disheveled - EENT Eyes: EOMI, PERRLA Ears: bilateral: normal - Neck Neck: normal ROM Carotids: bilateral: upstroke normal Thyroid: bilateral: normal size - Respiratory Respiratory: bilateral: CTA - Cardiovascular Rhythm: regular Heart sounds: normal: S1, S2 - Gastrointestinal General gastrointestinal: normal bowel sounds - Neurologic Neurologic: CNII-XII intact - Musculoskeletal Musculoskeletal: gait normal, generalized weakness - Psychiatric Psychiatric: A&O x's 3, appropriate affect, intact judgment & insight - Labs CBC & Chem 7: 04/26/20 08:32 04/26/20 08:32 Labs: Abnormal Lab Results - Last 24 Hours (Table) 04/26/20 04/26/20 04/26/20 Range/Units 11:49 16:34 20:51 POC Glucose (mg/dL) 443 H 349 H 175 H (75-99) mg/dL Urine Appearance (Clear) Urine Protein (Negative) Urine Glucose (UA) (Negative) Urine Blood (Negative) Urine RBC (0-5) /hpf Urine WBC (0-5) /hpf Ur Squamous Epith Cells (0-4) /hpf Amorphous Sediment (None) /hpf Urine Bacteria (None) /hpf Hyaline Casts (0-2) /lpf Urine Mucus (None) /hpf 04/27/20 04/27/20 Range/Units 03:00 07:29 POC Glucose (mg/dL) 203 H (75-99) mg/dL Urine Appearance Cloudy H (Clear) Urine Protein 4+ H (Negative) Urine Glucose (UA) 3+ H (Negative) Urine Blood Moderate H (Negative) Urine RBC 8 H (0-5) /hpf Urine WBC 22 H (0-5) /hpf Ur Squamous Epith Cells 44 H (0-4) /hpf Amorphous Sediment Rare H (None) /hpf Urine Bacteria Many H (None) /hpf Hyaline Casts 16 H (0-2) /lpf Urine Mucus Occasional H (None) /hpf Assessment and Plan Assessment: Urine tract infection Stable COPD End-stage renal disease on hemodialysis Ongoing diarrhea intermittent Abdominal discomfort and pain Infrarenal AAA Plan: Continue as needed bronchodilator taper and DC steroids, we will initiate antibiotics for UTI, COPD appears to be stable continue supportive care and further workup and evaluation for abdominal pain and continue hemodialysis plan we'll follow closely other recommendations pending plan of care as per clinical response of patient Time with Patient: Greater than 30
--- NOTE | 2020-04-27 11:11 | P.PN ---
Subjective Progress Note Date: 04/27/20 This 50-year-old female admitted with nausea vomiting diarrhea, abdominal pain, diabetic gastroparesis , possible colitis, diabetic gastroparesis and multiple other medical issues. Scheduled to receive hemodialysis again today. Evaluated by GI, patient declined any endoscopy testing. Bentyl added to med regime in addition to Pepcid. Hypertensive. Hyperglycemic. Declined lab draws this morning. Denies chest pain, palpitations or shortness of breath. reports nausea earlier this am. No emesis, No diarrhea this morning. Thoracic aorta CT revealed no evidence for aortic rupture or leak, findings as stated below. Afebrile. 04/26/2020 Evaluated by vascular surgery, recommendations noted and appreciated. Plavix discontinued as patient is scheduled for fistula for hemodialysis next week. Hyperglycemic. Denies chest pain, palpitations or increased shortness of breath. 04/27/20 receiving hemodialysis this morning, tolerating well. Continues on nebulized bronchodilators ,maintaining O2 sats in the high 90s on room air. Blood sugars elevated but better controlled today, ranging from 170s to 200. UA suggestive of possible mild infection, Levaquin initiated. Afebrile. Objective - Vital Signs Vital signs: Vital Signs Temp 98.1 F 04/27/20 07:00 Pulse 71 04/27/20 07:00 Resp 16 04/27/20 07:00 BP 163/73 04/27/20 07:00 Pulse Ox 97 04/27/20 07:00 Intake & Output 04/26/20 04/27/20 04/27/20 18:59 06:59 18:59 Intake Total 220 Balance 220 Intake: Oral 220 Other: Voiding Method Toilet Toilet Toilet # Voids 1 - Exam VITAL SIGNS: [As above] GENERAL: Sitting up in bed, no acute distress. HEENT: Conjunctivae normal. eyes normal. Oral mucosa moist NECK: No JVD. No thyroid enlargement. CARDIOVASCULAR: S1, S2 regular.systolic murmur, no rubs. RESPIRATION: Bilateral Breath sounds diminished in the bases. No rhonchi,crack les, wheezing. ABDOMEN: Soft, nondistended, nontender. No guarding. no masses palpable. Positive bowel sounds. LEGS: No edema. no swelling PSYCHIATRY: Alert and oriented X3, mood and affect normal. NERVOUS SYSTEM: Cranial N 2-12 grossly normal. Moves all 4 limbs. No focal deficits. Strength and sensation grossly intact. Skin: no rash - Labs CBC & Chem 7: 04/26/20 08:32 04/26/20 08:32 Labs: Abnormal Lab Results - Last 24 Hours (Table) 04/26/20 04/26/20 04/26/20 Range/Units 08:32 11:49 16:34 Sodium 131 L (137-145) mmol/L BUN 42 H (7-17) mg/dL Creatinine 3.60 H (0.52-1.04) mg/dL Glucose 373 H (74-99) mg/dL POC Glucose (mg/dL) 443 H 349 H (75-99) mg/dL Urine Appearance (Clear) Urine Protein (Negative) Urine Glucose (UA) (Negative) Urine Blood (Negative) Urine RBC (0-5) /hpf Urine WBC (0-5) /hpf Ur Squamous Epith Cells (0-4) /hpf Amorphous Sediment (None) /hpf Urine Bacteria (None) /hpf Hyaline Casts (0-2) /lpf Urine Mucus (None) /hpf 04/26/20 04/27/20 04/27/20 Range/Units 20:51 03:00 07:29 Sodium (137-145) mmol/L BUN (7-17) mg/dL Creatinine (0.52-1.04) mg/dL Glucose (74-99) mg/dL POC Glucose (mg/dL) 175 H 203 H (75-99) mg/dL Urine Appearance Cloudy H (Clear) Urine Protein 4+ H (Negative) Urine Glucose (UA) 3+ H (Negative) Urine Blood Moderate H (Negative) Urine RBC 8 H (0-5) /hpf Urine WBC 22 H (0-5) /hpf Ur Squamous Epith Cells 44 H (0-4) /hpf Amorphous Sediment Rare H (None) /hpf Urine Bacteria Many H (None) /hpf Hyaline Casts 16 H (0-2) /lpf Urine Mucus Occasional H (None) /hpf Assessment and Plan Assessment: Acute Abdominal pain, colonic wall thickening on CT, suggestive of acute on chronic nonspecific colitis, diabetic gastroparesis Bladder wall thickening, possible cystitis Acute UTI Abdominal aortic aneurysm, infrarenal, measuring 4.2 cm with no evidence of aortic rupture or leak as per CT Fluid overload with generalized anasarca, interstitial edema and mild pelvic free fluid per CT, currently on daily hemodialysis COPD, stable Bilateral patent common iliac artery stents with moderate stenosis within external iliac arteries Bilateral hilar soft tissue prominence measuring up to 1.4 cm, increasing retroperitoneal, periaortic nodularity 1.2 cm ,suggestive of lymphadenopathy possibly reactive, possibly granulomatous disease, possible sarcoidosis, systemic fungal or mycobacterial infection, lymphoma and connective tissue disorder. Close monitoring /follow-up OP CAD, history of CABG End-stage renal disease on hemodialysis Hypertension Hyperlipidemia Chronic nicotine dependence Diabetes mellitus, uncontrolled, hyperglycemic Bipolar History of CVA, TIA Factor V deficiency, anemia Plan: Continue on current medication regime ,monitoring and symptomatic treatment. Antibiotic added to med regime for her possible acute UTI .Plavix remains on hold for upcoming fistula procedure next week. Blood sugars trending down, No further adjustment currently in diabetic med regimen, close monitoring of Accu-Cheks. Hemodialysis as per nephrology. Discharge planning in progress soon. The impression and plan of care has been dictated as directed. : I performed a history and examination of this patient, discussed the same with the dictator. I agree with the dictator's note ,documented as a scribe. Any additional findings or plans will be noted.
[2020-04-27 11:37] LABS: Glucose,Whole Blood 305 mg/dL (75-99)
[2020-04-27] MEDS: LEVOFLOXACIN 500MG-D5W PMX 500 MG in DEXTROSE/WATER 1 100ML.BAG IVPB SCH (11:37)
--- NOTE | 2020-04-27 14:16 | CDI ---
Documentation Clarification Form Date: 04/27/2020 01:24:00 PM From: Connie Rosales RN, CCDS Admit Date: 04/23/2020 07:17:00 PM Patient Name: Sharon Singh Visit Number: [id number] Discharge Date: ATTENTION: The Clinical Documentation Specialists (CDI) and [facility] Coding Staff appreciate your assistance in clarifying documentation. Please respond to the clarification below the line at the bottom and electronically sign. The CDI & [facility] Coding staff will review the response and follow-up if needed. Please note: Queries are made part of the Legal Health Record. If you have any questions, please contact the author of this message via ITS. Dr. Pavel Velasquez CHF is documented in the H&P and further clarification is requested for the acuity and type if known. History/Risk Factors: CHF, ESRD on HD, COPD, Diabetes mellitus, DVT, Hypertension Factor V, Lupus Clinical Indicators: 50-year-old female present on 03/23 with complaints of nausea, vomiting, diarrhea, abdominal pain. She denies chest pain, palpitations or shortness of breath. 04/25 and subsequent progress notes has fluid overload with generalized anasarca, interstitial edema and mild pelvic free fluid per CT, currently on daily hemodialysis 61@ 13:17 VS/Pulse OX: 204/92 92 18 98.2 99 % RA 04/14/19 Echocardiogram Results: Overall left ventricular systolic function is normal with an EF between 55-60% 61 CT abdomen: Moderate atherosclerotic change of the aorta extending into branch vessels with bilateral common iliac arterial stent grafts. Ectatic and aneurysmal abdominal aorta. Poor visualization of aorta boarders, cannot exclude leaking aneurysm. Treatment: Lasix 40 mg po bid Coreg 25 mg po ac-bid Apresoline 75 mg po qid In your professional opinion, can you please clarify the acuity and type of CHF if known? Chronic Diastolic Heart Failure: Acute on Diastolic Heart failure Chronic Systolic Heart Failure Acute on Chronic Systolic Heart Failure Chronic Systolic and Diastolic Heart Failure Acute on Chronic Systolic and Diastolic Heart Failure Unable to Determine Other, please specify (Last Revision: February 2018) MTDD
--- NOTE | 2020-04-27 16:14 | PN ---
PROGRESS NOTE Patient is seen for followup for end-stage renal disease. She is currently seen on hemodialysis, tolerating her treatment fairly well. We have her set for about 1 L of ultrafiltration. Patient was admitted to the hospital with nausea and decreased oral intake. Her appetite seems to have improved. PHYSICAL EXAMINATION: Blood pressure is 146/63, heart rate 65 per minute, she is afebrile. Examination of the heart S1, S2. Examination of the lungs, bilateral breath sounds are heard. Abdomen is soft, nontender. Examination of the lower extremities shows no evidence of edema. [employer] exam grossly intact. LABS: Show hemoglobin 9.8 yesterday with serum creatinine 3.6, sodium 131, potassium 4.9 yesterday. ASSESSMENT: 1. End-stage renal disease, on hemodialysis on a Thursday, Thursday, Thursday schedule. 2. Hypertension, uncontrolled, now better controlled. Patient states that she has cough from lisinopril, therefore she did not take it. I will switch her to Cozaar. 3. Nausea and decreased oral intake, possibly related to diabetic gastroparesis, being followed by GI. 4. Type 2 diabetes, uncontrolled. 5. History of cerebrovascular accident/transient ischemic attack. 6. Bipolar disorder. PLAN: Hemodialysis today and next treatment on Thursday, which can be done as outpatient. Check labs in a.m. if patient is not discharged. MMAMAIRANIL / IJN: [id number] /
[2020-04-27] MEDS: DICYCLOMINE 20 MG TAB PO PRN (16:59)
[2020-04-27 17:22] LABS: Glucose,Whole Blood 269 mg/dL (75-99)
[2020-04-27 20:46] LABS: Glucose,Whole Blood 249 mg/dL (75-99)
[2020-04-27] MEDS: INSULIN DETEMIR (LEVEMIR) 100 UNIT/ML SYR SQ SCH (21:22)
[2020-04-27] MEDS: MONTELUKAST 10 MG TAB PO SCH (21:25)
[2020-04-28] MEDS: HYDROmorphone 0.5 MG/0.5 ML SYRINGE IVP SCH ×4 (01:50→09:57)
[2020-04-28] MEDS: methylPREDNISolone SOD SUCCI 125 MG/2 ML VIAL IV SCH ×2 (02:53→07:25)
[2020-04-28 07:21] LABS: Glucose,Whole Blood 137 mg/dL (75-99)
[2020-04-28] MEDS: hydrALAZINE HCL 25 MG TAB PO SCH ×4 (07:25→21:19)
[2020-04-28] MEDS: FUROSEMIDE 40 MG TAB PO SCH ×2 (07:25→20:14)
[2020-04-28] MEDS: METOCLOPRAMIDE 5 MG TAB PO SCH ×3 (07:26→17:06)
[2020-04-28] MEDS: APIXABAN 2.5 MG TABLET PO SCH ×2 (07:26→20:14)
[2020-04-28] MEDS: METOPROLOL SUCCINATE (ER) 50 MG TAB.ER.24H PO SCH ×2 (07:26→20:14)
[2020-04-28] MEDS: LISINOPRIL 10 MG TAB PO SCH (07:26)
[2020-04-28] MEDS: SUCRALFATE 1 GM TAB PO SCH ×4 (07:26→20:15)
[2020-04-28] MEDS: CARVEDILOL 12.5 MG TAB PO SCH ×2 (07:26→17:05)
[2020-04-28] MEDS: MAGNESIUM OXIDE 400 MG TAB PO SCH (07:27)
[2020-04-28] MEDS: ASPIRIN 81 MG PO SCH (07:27)
[2020-04-28] MEDS: INSULIN ASPART (NovoLOG) 100 UNIT/ML VIAL SQ SCH ×7 (07:27→21:18)
[2020-04-28] MEDS: PANTOPRAZOLE 40 MG TABLET PO SCH ×2 (07:27→17:06)
[2020-04-28] MEDS: PREGABALIN 75 MG CAP PO SCH ×2 (07:27→20:15)
[2020-04-28] MEDS: REPAGLINIDE 0.5 MG PO SCH ×2 (07:28→17:06)
--- NOTE | 2020-04-28 08:50 | DS ---
DISCHARGE SUMMARY ADDENDUM: Please add: 1. Acute on chronic systolic and diastolic heart failure. MMODL / IJN: [id number] /
[2020-04-28 11:33] LABS: Glucose,Whole Blood 289 mg/dL (75-99)
[2020-04-28] MEDS: predniSONE 20 MG TAB PO SCH (12:03)
--- NOTE | 2020-04-28 12:27 | P.PN ---
Subjective Progress Note Date: 04/28/20 Principal diagnosis: This 50-year-old known with ESRD on dialysis Thursday and Thursday She was admitted because of uncontrolled blood pressure as well as nausea and vomiting. She has type 2 diabetes with gastroparesis. She is also bipolar Supposedly according to nursing staff she throws up but that is able to eat fair amount of food. She denied any chest pain shortness of breath fever chills. Does complain of abdominal discomfort. She was on Dilaudid, that has been discontinued Objective - Vital Signs Vital signs: Vital Signs Temp 98.4 F 04/28/20 07:00 Pulse 72 04/28/20 07:00 Resp 16 04/28/20 07:00 BP 180/52 04/28/20 07:00 Pulse Ox 95 04/28/20 07:00 Intake & Output 04/27/20 04/28/20 04/28/20 18:59 06:59 18:59 Intake Total 40 Output Total 1000 200 Balance -1000 -160 Intake: Oral 40 Output: Urine 200 Hemodialysis 1000 Other: Voiding Method Toilet Toilet Toilet # Voids 3 1 On examination she is awake alert oriented. Looks depressed and tired HEENT exam no JVP neck is supple no facial asymmetry Lungs clear to auscultation good air entry bilaterally Heart sounds are unremarkable Abdomen soft slightly tender vaguely Extremity exam was no edema Neurologically awake alert oriented - Labs CBC & Chem 7: 04/26/20 08:32 04/26/20 08:32 Labs: Abnormal Lab Results - Last 24 Hours (Table) 04/27/20 04/27/20 04/28/20 Range/Units 17:14 20:43 07:18 POC Glucose (mg/dL) 269 H 249 H 137 H (75-99) mg/dL 04/28/20 Range/Units 11:32 POC Glucose (mg/dL) 289 H (75-99) mg/dL Microbiology - Last 24 Hours (Table) 04/27/20 03:00 Urine Culture - Final Urine,Catheterized Assessment and Plan Plan: Impression 1. ESRD on dialysis Thursday was a Thursday permacath 2. Blood pressure slightly high at that target. 3. Nausea vomiting diabetic gastroparesis 4. Computed tomography scan of the abdomen and pelvis shows hilar lymphadenopathy, needs to be further assessed 5. Colonic and rectal wall thickening these to be further clarified 6. Infrarenal aortic aneurysm 4.2 cm with extensive vascular calcification suggestive of vascular disease. Recommendation. 1. Maintain maintenance dialysis Thursday was a Thursday 2. Watch blood pressure and adjust medications as necessary. 3. Watch anemia hemoglobin went down from 10.6 at 9.8 4. GI evaluation of the colonic wall thickening as well as needs further clarification of the hilar lymphadenopathy possible sarcoidosis etc
--- NOTE | 2020-04-28 13:02 | PN ---
PROGRESS NOTE She continues to have abdominal pain with some food. She cannot eat or drink. She remains on Levaquin for UTI and Bentyl for irritable bowel syndrome. We will have to possibly start her on Reglan and she is on 5 mg t.i.d. with meals. If not tolerating, she will also have to go up to 10 mg. She will possibly be able to be discharged soon. Continue with dialysis 3 times a week. PHYSICAL EXAMINATION: Vital signs stable. Afebrile. Cardiovascular S1, S2. Lungs are clear. GI soft. No mass. No organomegaly. Hematology negative Homans. ASSESSMENT: 1. Irritable bowel syndrome colitis. 2. Hypertension. 3. Diabetes mellitus. 4. Gastroparesis. 5. Gastroesophageal reflux disease. 6. Mood disorder. 7. Atrial fibrillation. Continue current home medications. Wean down IV steroids. Advance diet. Possible discharge home in the next 24 to 48 hours if tolerating food. Add Reglan 5 mg t.i.d. may be, increased to 10 mg t.i.d. if it does not work for abdominal pain. MMODL / IJN: [id number] /
[2020-04-28 16:27] LABS: Glucose,Whole Blood 436 mg/dL (75-99)
[2020-04-28 16:28] LABS: Glucose,Whole Blood 444 mg/dL (75-99)
[2020-04-28] MEDS: MONTELUKAST 10 MG TAB PO SCH (20:15)
[2020-04-28 21:11] LABS: Glucose,Whole Blood 463 mg/dL (75-99)
[2020-04-28] MEDS: INSULIN DETEMIR (LEVEMIR) 100 UNIT/ML SYR SQ SCH (21:18)
[2020-04-28] MEDS: amLODIPine 5 MG TAB PO SCH (22:04)
[2020-04-29] MEDS: HYDROcodone/APAP 5-325MG 1 EACH TAB PO PRN (03:12)
[2020-04-29 07:10] LABS: Glucose,Whole Blood 455 mg/dL (75-99)
[2020-04-29] MEDS: hydrALAZINE HCL 25 MG TAB PO SCH ×4 (07:23→21:08)
[2020-04-29] MEDS: PREGABALIN 75 MG CAP PO SCH ×2 (07:24→21:09)
[2020-04-29] MEDS: LISINOPRIL 10 MG TAB PO SCH ×2 (07:24→21:08)
[2020-04-29] MEDS: APIXABAN 2.5 MG TABLET PO SCH ×2 (07:24→21:08)
[2020-04-29] MEDS: FUROSEMIDE 40 MG TAB PO SCH ×2 (07:24→21:08)
[2020-04-29] MEDS: amLODIPine 5 MG TAB PO SCH ×2 (07:24→21:08)
[2020-04-29] MEDS: METOCLOPRAMIDE 5 MG TAB PO SCH ×3 (07:24→17:06)
[2020-04-29] MEDS: predniSONE 20 MG TAB PO SCH (07:24)
[2020-04-29] MEDS: METOPROLOL SUCCINATE (ER) 50 MG TAB.ER.24H PO SCH ×2 (07:24→21:08)
[2020-04-29] MEDS: CARVEDILOL 12.5 MG TAB PO SCH ×2 (07:24→17:05)
[2020-04-29] MEDS: MAGNESIUM OXIDE 400 MG TAB PO SCH (07:25)
[2020-04-29] MEDS: ASPIRIN 81 MG PO SCH (07:25)
[2020-04-29] MEDS: REPAGLINIDE 0.5 MG PO SCH ×2 (07:25→17:06)
[2020-04-29] MEDS: PANTOPRAZOLE 40 MG TABLET PO SCH ×2 (07:25→17:06)
[2020-04-29] MEDS: INSULIN ASPART (NovoLOG) 100 UNIT/ML VIAL SQ SCH ×8 (07:25→21:07)
[2020-04-29] MEDS: SUCRALFATE 1 GM TAB PO SCH ×4 (07:25→21:08)
[2020-04-29 09:11] LABS: Anisocytosis Slight; Basophils % (A) 0 %; Eosinophils # (A) 0.1 k/uL (0-0.7); Eosinophils % (A) 1 %; HCT 29.7 % (34.0-46.0); HGB 10.1 gm/dL (11.4-16.0); Lymphocytes # (A) 0.9 k/uL (1.0-4.8); Lymphocytes % (A) 7 %; MCHC 33.9 g/dL (31.0-37.0); MCV 82.6 fL (80.0-100.0); Mean Platelet Volume 7.5; Monocytes # (A) 0.8 k/uL (0-1.0); Monocytes % (A) 6 %; Neutrophils # (A) 10.8 k/uL (1.3-7.7); Neutrophils % (A) 85 %; Platelet Count 298 k/uL (150-450); RDW 16.5 % (11.5-15.5); WBC 12.6 k/uL (3.8-10.6)
[2020-04-29 09:12] LABS: Albumin 2.9 g/dL (3.5-5.0); Calcium 8.8 mg/dL (8.4-10.2); Potassium 4.5 mmol/L (3.5-5.1); Total Bilirubin 0.3 mg/dL (0.2-1.3); Total Protein 5.8 g/dL (6.3-8.2)
--- NOTE | 2020-04-29 11:13 | P.PN ---
Subjective Progress Note Date: 04/29/20 Principal diagnosis: This 50-year-old known with ESRD on dialysis Thursday and Thursday She was admitted because of uncontrolled blood pressure as well as nausea and vomiting. She has type 2 diabetes with gastroparesis. She is also bipolar This morning she says she has not thrown up so far and is able to keep her breakfast down. Her blood pressure though is fairly high to 13/77 and 197/79 earlier this morning Denies any other new complaints. She was on Dilaudid, that has been discontinued Objective - Vital Signs Vital signs: Vital Signs Temp 98.1 F 04/29/20 07:00 Pulse 74 04/29/20 07:00 Resp 18 04/29/20 07:00 BP 213/77 04/29/20 07:00 Pulse Ox 99 04/29/20 07:00 Intake & Output 04/28/20 04/29/20 04/29/20 18:59 06:59 18:59 Output Total 850 Balance -850 Output: Urine 850 Other: Voiding Method Toilet Toilet Toilet # Voids 2 # Bowel Movements 1 Examination is awake alert oriented comfortable HEENT exam no JVP neck is supple no facial asymmetry Lungs are clear to auscultation good air entry bilaterally Heart sounds are unremarkable for any murmur rub gallop Abdomen soft nontender. Extremity exam was no edema Neurologically awake alert oriented comfortable - Labs CBC & Chem 7: 04/29/20 08:40 04/29/20 08:40 Labs: Abnormal Lab Results - Last 24 Hours (Table) 04/28/20 04/28/20 04/28/20 Range/Units 11:32 16:25 16:26 WBC (3.8-10.6) k/uL RBC (3.80-5.40) m/uL Hgb (11.4-16.0) gm/dL Hct (34.0-46.0) % RDW (11.5-15.5) % Neutrophils # (1.3-7.7) k/uL Lymphocytes # (1.0-4.8) k/uL Sodium (137-145) mmol/L BUN (7-17) mg/dL Creatinine (0.52-1.04) mg/dL Glucose (74-99) mg/dL POC Glucose (mg/dL) 289 H 436 H 444 H (75-99) mg/dL Alkaline Phosphatase (38-126) U/L Total Protein (6.3-8.2) g/dL Albumin (3.5-5.0) g/dL 04/28/20 04/29/20 04/29/20 Range/Units 21:10 07:07 08:40 WBC 12.6 H (3.8-10.6) k/uL RBC 3.60 L (3.80-5.40) m/uL Hgb 10.1 L (11.4-16.0) gm/dL Hct 29.7 L (34.0-46.0) % RDW 16.5 H (11.5-15.5) % Neutrophils # 10.8 H (1.3-7.7) k/uL Lymphocytes # 0.9 L (1.0-4.8) k/uL Sodium (137-145) mmol/L BUN (7-17) mg/dL Creatinine (0.52-1.04) mg/dL Glucose (74-99) mg/dL POC Glucose (mg/dL) 463 H 455 H (75-99) mg/dL Alkaline Phosphatase (38-126) U/L Total Protein (6.3-8.2) g/dL Albumin (3.5-5.0) g/dL 04/29/20 Range/Units 08:40 WBC (3.8-10.6) k/uL RBC (3.80-5.40) m/uL Hgb (11.4-16.0) gm/dL Hct (34.0-46.0) % RDW (11.5-15.5) % Neutrophils # (1.3-7.7) k/uL Lymphocytes # (1.0-4.8) k/uL Sodium 130 L (137-145) mmol/L BUN 59 H (7-17) mg/dL Creatinine 3.79 H (0.52-1.04) mg/dL Glucose 392 H (74-99) mg/dL POC Glucose (mg/dL) (75-99) mg/dL Alkaline Phosphatase 142 H (38-126) U/L Total Protein 5.8 L (6.3-8.2) g/dL Albumin 2.9 L (3.5-5.0) g/dL Microbiology - Last 24 Hours (Table) 04/27/20 03:00 Urine Culture - Final Urine,Catheterized Assessment and Plan Plan: Impression 1. ESRD on dialysis Thursday and Thursday with a permacath on the left 2. Blood pressure slightly higher than target. she is on Coreg 25 twice a day, amlodipine 5 twice a day, hydralazine 75 4 times a day, lisinopril 10, metoprolol 50 twice a day 3. Nausea vomiting diabetic gastroparesis, improved this morning 4. Computed tomography scan of the abdomen and pelvis shows hilar lymphadenopathy, needs to be further assessed 5. Colonic and rectal wall thickening these to be further clarified 6. Infrarenal aortic aneurysm 4.2 cm with extensive vascular calcification suggestive of vascular disease. Recommendation. 1. Maintain maintenance dialysis Thursday and Thursday, she is on 4 hours of dialysis usually as an outpatient. We will ultrafiltrate 3 L if she ca n tolerate it and see if it will help her blood pressure. In the meantime increase lisinopril to 10 twice a day 2. Watch blood pressure and adjust medications as necessary. 3. Watch anemia hemoglobin went down from 10.6 at 9.8, up to 10.1 this morning 4. GI evaluation of the colonic wall thickening as well as needs further clarification of the hilar lymphadenopathy possible sarcoidosis etc
[2020-04-29 11:36] LABS: Glucose,Whole Blood 326 mg/dL (75-99)
[2020-04-29] MEDS: LEVOFLOXACIN 500MG-D5W PMX 500 MG in DEXTROSE/WATER 1 100ML.BAG IVPB SCH (11:50)
--- NOTE | 2020-04-29 15:27 | PN ---
PROGRESS NOTE DATE OF DICTATION: April 29, 2020. REQUESTING PHYSICIAN: Dr. Velasquez. REASON FOR CONSULTATION: Nausea, vomiting, diarrhea. HISTORY OF PRESENT ILLNESS: The patient is a 50-year-old pleasant female with history of end-stage renal disease, on dialysis that was started a few months ago, was admitted to the hospital with severe abdominal pain associated with nausea, vomiting, and diarrhea. She was seen by Dr. Nolen on consultation a week ago and stool studies for C difficile toxin were negative. She was started on antimotility agents. Her diarrhea resolved. She was doing well. In fact, until yesterday she was doing well and yesterday after dinner she had 2 episodes of nausea vomiting with no associated abdominal pain. This morning, she had some breakfast and she has been doing well. She states that she is feeling much better today. She denies any heartburn. She remains on Protonix 40 mg twice daily and Carafate 1 g 4 times daily as well as antiemetics as needed. PHYSICAL EXAMINATION: Appears comfortable, no apparent distress. Vital signs stable. Blood pressure 213/77, pulse rate 74, temperature 98.1. HEENT examination unremarkable. Conjunctivae pink. Sclerae anicteric. Oral cavity no lesions. NECK no JVD. No lymph node enlargement. CHEST: Clear to auscultation. HEART: Regular rate and rhythm. ABDOMEN: Soft, it was nondistended, nontender. Bowel sounds are positive. No organomegaly. EXTREMITIES: No pedal edema. NEURO: She is alert and oriented x3. No focal deficits. LABS: WBC 12.6, hemoglobin 10.1, platelets normal. Basic metabolic panel is within normal limits. BUN is 59, creatinine is 3.78. IMPRESSION: 1. Intermittent episodes of nausea, vomiting since admission. She was doing extremely well, last nite had 2 bouts of emesis, but this morning, she is doing much better. Denies any associated abdominal pain. She tolerated breakfast very well. She remains on Protonix as well as Carafate for now and antiemetics as needed. 2. End-stage renal disease, on hemodialysis. Last one was Thursday. 3. History of uncontrolled hypertension. 4. Longstanding history of diabetes mellitus. RECOMMENDATIONS: The patient was advised on small frequent meals. She may have a component of diabetic gastroparesis. Continue with Protonix 40 mg twice daily. Since her symptoms have resolved, will use antiemetics as needed and advance diet as tolerated. No plans for any endoscopic intervention at the present time. We will follow with you closely. Thank you for this consultation. JAS / ABIGAIL: [id number] /
[2020-04-29 16:44] LABS: Glucose,Whole Blood 338 mg/dL (75-99)
[2020-04-29 20:50] LABS: Glucose,Whole Blood 405 mg/dL (75-99)
[2020-04-29] MEDS: INSULIN DETEMIR (LEVEMIR) 100 UNIT/ML SYR SQ SCH (21:07)
[2020-04-29] MEDS: MONTELUKAST 10 MG TAB PO SCH (21:08)
[2020-04-30] MEDS: HYDROcodone/APAP 5-325MG 1 EACH TAB PO PRN (01:03)
--- NOTE | 2020-04-30 05:05 | PN ---
PROGRESS NOTE A 50-year-old white female, end-stage renal disease, chronic anemia, gastroparesis. CARDIOVASCULAR: S1, S2. LUNGS: Clear. GI: Soft. HEMATOLOGY: Negative Homans. PSYCH: Fair mood and affect. ASSESSMENT: 1. Gastroparesis. 2. Severe anemia. 3. Congestive heart failure. 4. Chronic obstructive pulmonary disease. 5. Lumbar radiculopathy. Continue on Reglan. Possible discharge home next 24 to 48 hours. MMODL / IJN: [id number] /
[2020-04-30 07:12] LABS: Glucose,Whole Blood 236 mg/dL (75-99)
[2020-04-30] MEDS: hydrALAZINE HCL 25 MG TAB PO SCH ×2 (07:43→16:36)
[2020-04-30] MEDS: FUROSEMIDE 40 MG TAB PO SCH (07:43)
[2020-04-30] MEDS: LISINOPRIL 10 MG TAB PO SCH (07:43)
[2020-04-30] MEDS: CARVEDILOL 12.5 MG TAB PO SCH (07:44)
[2020-04-30] MEDS: amLODIPine 5 MG TAB PO SCH (07:44)
[2020-04-30] MEDS: predniSONE 20 MG TAB PO SCH (07:51)
[2020-04-30] MEDS: ASPIRIN 81 MG PO SCH (07:52)
[2020-04-30] MEDS: MAGNESIUM OXIDE 400 MG TAB PO SCH (07:52)
[2020-04-30] MEDS: PREGABALIN 75 MG CAP PO SCH (07:52)
[2020-04-30] MEDS: APIXABAN 2.5 MG TABLET PO SCH (07:52)
[2020-04-30] MEDS: INSULIN ASPART (NovoLOG) 100 UNIT/ML VIAL SQ SCH ×6 (07:52→17:40)
[2020-04-30] MEDS: SUCRALFATE 1 GM TAB PO SCH ×2 (07:52→13:02)
[2020-04-30] MEDS: METOCLOPRAMIDE 5 MG TAB PO SCH ×2 (07:52→13:02)
[2020-04-30] MEDS: METOPROLOL SUCCINATE (ER) 50 MG TAB.ER.24H PO SCH (07:52)
[2020-04-30] MEDS: PANTOPRAZOLE 40 MG TABLET PO SCH (07:52)
[2020-04-30] MEDS: REPAGLINIDE 0.5 MG PO SCH (07:53)
[2020-04-30 07:54] LABS: Anisocytosis Slight; Basophils % (A) 0 %; Eosinophils # (A) 0.1 k/uL (0-0.7); Eosinophils % (A) 1 %; HCT 36.9 % (34.0-46.0); HGB 11.9 gm/dL (11.4-16.0); Lymphocytes % (A) 12 %; MCH 27.1 pg (25.0-35.0); MCHC 32.3 g/dL (31.0-37.0); MCV 83.7 fL (80.0-100.0); Mean Platelet Volume 7.4; Monocytes # (A) 1.1 k/uL (0-1.0); Monocytes % (A) 7 %; Neutrophils # (A) 13.8 k/uL (1.3-7.7); Neutrophils % (A) 80 %; Platelet Count 340 k/uL (150-450); RBC 4.41 m/uL (3.80-5.40); RDW 16.5 % (11.5-15.5); WBC 17.3 k/uL (3.8-10.6)
[2020-04-30 08:28] LABS: Potassium 5.2 mmol/L (3.5-5.1)
--- NOTE | 2020-04-30 11:22 | P.PN ---
Subjective Patient is seen in follow-up for end-stage liver disease. No nausea or vomiting. No diarrhea. Eager to go home. No active complaints. Vital signs are stable. General: The patient appeared well nourished and normally developed. HEENT: Head exam is unremarkable. Neck is without jugular venous distension. LUNGS: Lungs are clear to auscultation and percussion. Breath sounds decreased. HEART: Rate and Rhythm are regular. ABDOMEN: Soft, nontender. EXTREMITITES: No clubbing, cyanosis, or edema. Objective - Vital Signs Vital signs: Vital Signs Temp 98.0 F 04/30/20 06:46 Pulse 65 04/30/20 06:46 Resp 16 04/30/20 06:46 BP 145/70 04/30/20 06:46 Pulse Ox 98 04/30/20 06:46 Intake & Output 04/29/20 04/30/20 04/30/20 18:59 06:59 18:59 Intake Total 600 Balance 600 Intake: Oral 600 Other: Voiding Method Toilet Toilet # Voids 2 1 # Bowel Movements 1 1 - Labs CBC & Chem 7: 04/30/20 07:22 04/30/20 07:22 Labs: Abnormal Lab Results - Last 24 Hours (Table) 04/29/20 04/29/20 04/29/20 Range/Units 11:34 16:42 20:49 WBC (3.8-10.6) k/uL RDW (11.5-15.5) % Neutrophils # (1.3-7.7) k/uL Monocytes # (0-1.0) k/uL Sodium (137-145) mmol/L Potassium (3.5-5.1) mmol/L Carbon Dioxide (22-30) mmol/L BUN (7-17) mg/dL Creatinine (0.52-1.04) mg/dL Glucose (74-99) mg/dL POC Glucose (mg/dL) 326 H 338 H 405 H (75-99) mg/dL 04/30/20 04/30/20 04/30/20 Range/Units 06:43 07:22 07:22 WBC 17.3 H (3.8-10.6) k/uL RDW 16.5 H (11.5-15.5) % Neutrophils # 13.8 H (1.3-7.7) k/uL Monocytes # 1.1 H (0-1.0) k/uL Sodium 129 L (137-145) mmol/L Potassium 5.2 H (3.5-5.1) mmol/L Carbon Dioxide 20 L (22-30) mmol/L BUN 70 H (7-17) mg/dL Creatinine 3.97 H (0.52-1.04) mg/dL Glucose 184 H (74-99) mg/dL POC Glucose (mg/dL) 236 H (75-99) mg/dL Assessment and Plan Plan: Assessment: 1. End-stage renal disease maintained on hemodialysis on Thursday schedule. 2. Hyponatremia secondary to chronic kidney disease. 3. Metabolic acidosis secondary to chronic kidney disease. Expect improvement postdialysis. 4. Hypertension with chronic kidney disease. Currently on the lower side. 5. Insulin-dependent diabetes mellitus. 6. Nausea and vomiting likely from diabetic gastroparesis. Improved. Plan: Currently seen while undergoing hemodialysis. Next treatment on Thursday. Advised to monitor blood pressure at home. To call if running less than 110 or greater than 150 systolic. Potential discharge today.
[2020-04-30 11:25] LABS: Glucose,Whole Blood 143 mg/dL (75-99)
[2020-04-30 12:10] LABS: Hemoglobin A1C 8.9 % (4.0-6.0)
[2020-04-30 12:13] VITALS: RESP 18
[2020-04-30 13:18] VITALS: BMI 26.9
[2020-04-30 14:35] VITALS: BP 123/71; PULSE 67; TEMP 98
--- NOTE | 2020-04-30 15:56 | P.DS ---
Providers Date of admission: 04/23/20 19:17 Expected date of discharge: 04/30/20 Attending physician: Pavel Velasquez Consults: 04/23/20 19:22 Consult Physician Routine Consulting Provider: Keila Downs Consult Reason/Comments: dialysis pt, needs 04/24/20 Do you want consulting provider notified?: Yes 04/25/20 10:59 Consult Physician Routine Consulting Provider: Gisela Velázquez Consult Reason/Comments: Infrarenal AAA 4.2cm, Incr re troperitoneal/lymphadenopathy Do you want consulting provider notified?: Yes 04/25/20 11:04 Consult Physician Routine Consulting Provider: Jae Dalton Consult Reason/Comments: Abnormal CT Do you want consulting provider notified?: Yes 04/28/20 09:35 Consult Physician Routine Consulting Provider: Barbie Otto Consult Reason/Comments: nausea/vomitting Do you want consulting provider notified?: Yes Primary care physician: [facility] Course: Final Diagnoses: Acute Abdominal pain, diabetic gastroparesis ,colonic wall thickening on CT, suggestive of possible acute on chronic nonspecific colitis. Bladder wall thickening, possible cystitis Acute UTI Abdominal aortic aneurysm, infrarenal, measuring 4.2 cm with no evidence of aortic rupture or leak as per CT Fluid overload with generalized anasarca, interstitial edema and mild pelvic free fluid per CT, currently on daily hemodialysis COPD, stable Bilateral patent common iliac artery stents with moderate stenosis within external iliac arteries Bilateral hilar soft tissue prominence measuring up to 1.4 cm, increasing retroperitoneal, periaortic nodularity 1.2 cm ,suggestive of lymphadenopathy possibly reactive, possibly granulomatous disease, possible sarcoidosis, systemic fungal or mycobacterial infection, lymphoma and connective tissue disorder. Close monitoring /follow-up OP Lumbar radiculopathy CAD, history of CABG End-stage renal disease on hemodialysis Hypertension Hyperlipidemia Chronic nicotine dependence Diabetes mellitus, uncontrolled, hyperglycemic Bipolar History of CVA, TIA Factor V deficiency, anemia Hospital course:This 50-year-old female admitted with nausea vomiting diarrhea, abdominal pain, diabetic gastroparesis , possible colitis, diabetic gastroparesis and multiple other medical issues. Scheduled to receive hemodialysis again today. Evaluated by GI, patient declined any endoscopy testing. Bentyl added to med regime in addition to Pepcid. Hypertensive. Hyperglycemic. Declined lab draws this morning. Denies chest pain, palpitations or shortness of breath. reports nausea earlier this am. No emesis, No diarrhea this morning. Thoracic aorta CT revealed no evidence for aortic rupture or leak, findings as stated below. Afebrile. 04/26/2020 Evaluated by vascular surgery, recommendations noted and appreciated. Plavix discontinued as patient is scheduled for fistula for hemodialysis next week. Hyperglycemic. Denies chest pain, palpitations or increased shortness of breath. 04/27/20 receiving hemodialysis this morning, tolerating well. Continues on nebulized bronchodilators ,maintaining O2 sats in the high 90s on room air. Blood sugars elevated but better controlled today, ranging from 170s to 200. UA suggestive of possible mild infection, Levaquin initiated. Afebrile. Significant clinical improvement. Patient will be discharged home today once cleared by all consults, in stable condition with guarded prognosis. Anticoagulation on hold secondary to fistula procedures this with Dr. Velázquez vascular surgery. The impression and plan of care has been dictated as directed. : I performed a history and examination of this patient, discussed the same with the dictator. I agree with the dictator's note ,documented as a scribe. Any additional findings or plans will be noted. Patient Condition at Discharge: Stable Plan - Discharge Summary Discharge Rx Participant: No New Discharge Prescriptions: New Dicyclomine [Bentyl] 20 mg PO QID PRN #20 tab PRN Reason: Dyspepsia Levofloxacin [Levaquin] 500 mg PO Q48H #5 tab amLODIPine [Norvasc] 5 mg PO BID #60 tab Pantoprazole [Protonix] 40 mg PO AC-BID #60 tablet. Lisinopril [Zestril] 10 mg PO BID #60 tab predniSONE 10 mg PO DIRECTED #30 tab Changed hydrALAZINE HCL [Apresoline] 75 mg PO TID #0 Insulin Glargine [Lantus] 20 unit SQ HS #0 Discontinued Aspirin EC [Ecotrin Low Dose] 81 mg PO DAILY No Action Metoprolol Succinate (ER) [Toprol XL] 50 mg PO BID Sucralfate [Carafate] 1 gm PO ACHS Furosemide [Lasix] 40 mg PO BID Magnesium Oxide 400 mg PO DAILY Montelukast [Singulair] 10 mg PO HS #30 tab Repaglinide 0.5 mg PO BID-W/MEALS Марина-Twyla 1 tab PO DAILY Metoclopramide [Reglan] 5 mg PO TID-W/MEALS HYDROcodone/APAP 5-325MG [[place] 5-325] 1 tab PO BID PRN PRN Reason: Pain Carvedilol Phosphate [Carvedilol ER] 40 mg PO HS Discharge Medication List Furosemide [Lasix] 40 mg PO BID 02/01/20 [History] Magnesium Oxide 400 mg PO DAILY 02/01/20 [History] Metoprolol Succinate (ER) [Toprol XL] 50 mg PO BID 02/01/20 [History] Sucralfate [Carafate] 1 gm PO ACHS 02/01/20 [History] Montelukast [Singulair] 10 mg PO HS #30 tab 02/03/20 [Rx] Carvedilol Phosphate [Carvedilol ER] 40 mg PO HS 04/23/20 [History] HYDROcodone/APAP 5-325MG [[place] 5-325] 1 tab PO BID PRN 04/23/20 [History] Metoclopramide [Reglan] 5 mg PO TID-W/MEALS 04/23/20 [History] Марина-Twyla 1 tab PO DAILY 04/23/20 [History] Repaglinide 0.5 mg PO BID-W/MEALS 04/23/20 [History] Dicyclomine [Bentyl] 20 mg PO QID PRN #20 tab 04/30/20 [Rx] Insulin Glargine [Lantus] 20 unit SQ HS #0 04/30/20 [Rx] Levofloxacin [Levaquin] 500 mg PO Q48H #5 tab 04/30/20 [Rx] Lisinopril [Zestril] 10 mg PO BID #60 tab 04/30/20 [Rx] Pantoprazole [Protonix] 40 mg PO AC-BID #60 tablet. 04/30/20 [Rx] amLODIPine [Norvasc] 5 mg PO BID #60 tab 04/30/20 [Rx] hydrALAZINE HCL [Apresoline] 75 mg PO TID #0 04/30/20 [Rx] predniSONE 10 mg PO DIRECTED #30 tab 04/30/20 [Rx] Follow up Appointment(s)/Referral(s): [facility] [NON-STAFF] - As Needed Mullally,Pavel, MD [Primary Care Provider] - 05/03/20 1:00 pm Gisela Velázquez DO [STAFF PHYSICIAN] - 05/03/20 Activity/Diet/Wound Care/Special Instructions: CBC/BMP prior to procedure as per Vascular. Hold anticoagulation/aspirin with outpatient fistula placement on , 05/03/[address] Velázquez .Glucometer and supplies at [facility]. Please make sure this is delivered to room prior to discharge.
--- NOTE | 2020-04-30 16:19 | P.PN ---
Subjective Progress Note Date: 04/30/20 Principal diagnosis: Stable COPD End-stage renal disease on hemodialysis Ongoing diarrhea intermittent Abdominal discomfort and pain Infrarenal AAA 04/30/2020, patient seen and evaluated examined during the rounds labs reviewed medications reviewed care plan discussed with the primary service, respiratory status has been stable patient tolerating dialysis very well agree with discharge planning with continuation of bronchodilator she is taking at home and follow-up on outpatient basis, continue dialysis as per plan 04/27/2020, patient seen eval examined during the rounds labs reviewed medications reviewed care plan discussed with the patient, patient is currently undergoing hemodialysis, 1+1 L of fluid is being planned for removed, patient shortness of breath stable on room air saturation is 97% hemodynamic status stable, tolerating dialysis fairly well urine testing is suggestive of the plus for protein many bacteria, we'll put on Levaquin, patient has ALLERGY to cephalosporins and Bactrim Patient has a long-standing history of end-stage renal disease on hemodialysis also has a history of COPD heart failure patient came into the hospital with intermittent abdominal pain nausea, she has been getting dialysis with the last dialysis being on Thursday, she underwent to thoracic aortogram noted to have extensive sclerotic and plaque formation, infrarenal AAA was noted 4.2 cm in size, on specific questioning her cough is stable she has ongoing shortness of breath which is stable on bronchodilators, patient has intermittent diarrhea with history of prior C. difficile colitis, GI service has been seen Objective - Vital Signs Vital signs: Vital Signs Temp 98.0 F 04/30/20 13:50 Pulse 67 04/30/20 13:50 Resp 18 04/30/20 13:50 BP 123/71 04/30/20 13:50 Pulse Ox 100 04/30/20 13:50 Intake & Output 04/29/20 04/30/20 04/30/20 18:59 06:59 18:59 Intake Total 600 Balance 600 Weight 80.28 kg Intake: Oral 600 Other: Voiding Method Toilet Toilet Toilet # Voids 2 1 0 # Bowel Movements 1 1 - Exam - Constitutional General appearance: average body habitus, cooperative, disheveled - EENT Eyes: EOMI, PERRLA Ears: bilateral: normal - Neck Neck: normal ROM Carotids: bilateral: upstroke normal Thyroid: bilateral: normal size - Respiratory Respiratory: bilateral: CTA - Cardiovascular Rhythm: regular Heart sounds: normal: S1, S2 - Gastrointestinal General gastrointestinal: normal bowel sounds - Neurologic Neurologic: CNII-XII intact - Musculoskeletal Musculoskeletal: gait normal, generalized weakness - Psychiatric Psychiatric: A&O x's 3, appropriate affect, intact judgment & insight - Labs CBC & Chem 7: 04/30/20 07:22 04/30/20 07:22 Labs: Abnormal Lab Results - Last 24 Hours (Table) 04/29/20 04/29/20 04/29/20 Range/Units 08:40 16:42 20:49 WBC (3.8-10.6) k/uL RDW (11.5-15.5) % Neutrophils # (1.3-7.7) k/uL Monocytes # (0-1.0) k/uL Sodium (137-145) mmol/L Potassium (3.5-5.1) mmol/L Carbon Dioxide (22-30) mmol/L BUN (7-17) mg/dL Creatinine (0.52-1.04) mg/dL Glucose (74-99) mg/dL POC Glucose (mg/dL) 338 H 405 H (75-99) mg/dL Hemoglobin A1c 8.9 H (4.0-6.0) % 04/30/20 04/30/20 04/30/20 Range/Units 06:43 07:22 07:22 WBC 17.3 H (3.8-10.6) k/uL RDW 16.5 H (11.5-15.5) % Neutrophils # 13.8 H (1.3-7.7) k/uL Monocytes # 1.1 H (0-1.0) k/uL Sodium 129 L (137-145) mmol/L Potassium 5.2 H (3.5-5.1) mmol/L Carbon Dioxide 20 L (22-30) mmol/L BUN 70 H (7-17) mg/dL Creatinine 3.97 H (0.52-1.04) mg/dL Glucose 184 H (74-99) mg/dL POC Glucose (mg/dL) 236 H (75-99) mg/dL Hemoglobin A1c (4.0-6.0) % 04/30/20 Range/Units 11:23 WBC (3.8-10.6) k/uL RDW (11.5-15.5) % Neutrophils # (1.3-7.7) k/uL Monocytes # (0-1.0) k/uL Sodium (137-145) mmol/L Potassium (3.5-5.1) mmol/L Carbon Dioxide (22-30) mmol/L BUN (7-17) mg/dL Creatinine (0.52-1.04) mg/dL Glucose (74-99) mg/dL POC Glucose (mg/dL) 143 H (75-99) mg/dL Hemoglobin A1c (4.0-6.0) % Assessment and Plan Assessment: Urine tract infection Mediastinal lymphadenopathy/lymph node prominence Stable COPD End-stage renal disease on hemodialysis Ongoing diarrhea intermittent Abdominal discomfort and pain Infrarenal AAA Plan: Continue as needed bronchodilator, steroids can be tapered to oral, COPD appears to be stable continue supportive care and further workup and evaluation for abdominal pain and continue hemodialysis plan we'll follow closely other recommendations pending plan of care as per clinical response of patient, agree with discharge planning, recommend a follow-up on outpatient basis will consider obtaining a computed tomography scan in 3-6 month Time with Patient: Greater than 30
[2020-04-30 16:32] LABS: Glucose,Whole Blood 371 mg/dL (75-99)
--- NOTE | 2020-04-30 18:43 | PN ---
PROGRESS NOTE DATE OF DICTATION: April 30, 2020 Patient is a 50-year-old pleasant white female admitted to the hospital with nausea, vomiting, diarrhea, who also has a history of end-stage renal disease, on dialysis she was seen on consultation for diarrhea initially which has resolved. Yesterday I saw her on followup because of nausea and vomiting. Today she is feeling better. She is eating solid food for lunch and has no further episodes of nausea, vomiting. She has some queasiness in the epigastric area which happened soon after she was done with dialysis this morning. Overall she is feeling better. PHYSICAL EXAMINATION: Appears comfortable. VITAL SIGNS: Stable. Blood pressure 120/71, pulse 67, temperature 98. HEENT examination unremarkable. Conjunctivae pink. Sclerae anicteric. Oral cavity no lesions. NECK: No JVD or lymph node enlargement. CHEST was clear to auscultation. ABDOMEN: Very minimal tenderness in the epigastric area. Rest of the abdomen was benign. Bowel sounds are positive.; EXTREMITIES no pedal edema. NEUROLOGICAL: Alert and oriented x3. No focal deficits. LABS: From today WBC 17.3, hemoglobin 11.9, platelets 240. BUN is 70, creatinine 3.97. IMPRESSION: 1. Nausea, vomiting resolved, probably related to some gastritis. Presently on Protonix 40 mg daily and antiemetics and doing much better. 2. End-stage renal disease, on hemodialysis. 3. Acute diarrhea of one week duration completely resolved. RECOMMENDATIONS: 1. Continue with symptomatic and supportive care. 2. Since the patient is doing well, she can be discharged home today. 3. Continue with Protonix 40 mg daily. 4. Antiemetics as needed. 5. Follow up in the office as needed. Thank you for this consultation. MMAMAIRANIL / IJN: [id number] /
[2020-05-01] MEDS ORDERED: LEVOFLOXACIN 500 MG TAB PO SCH (09:00)
== END 2020-04-30 17:44 | disposition home or self-care (01) | DRG 391 ==
LOC: EC 13:09 → 4SSUR 19:17
PROVIDERS: ADMIT Family Medicine; ATTEND Family Medicine
DX: K52.9 Noninfective gastroenteritis and colitis, unspecified (principal); N18.6 End stage renal disease; I50.43 Acute on chronic combined systolic (congestive) and diastolic (congestive) heart failure; I13.2 Hypertensive heart and chronic kidney disease with heart failure and with stage 5 chronic kidney disease, or end stage renal disease; D68.2 Hereditary deficiency of other clotting factors; E87.1 Hypo-osmolality and hyponatremia; E87.2 Acidosis; E11.43 Type 2 diabetes mellitus with diabetic autonomic (poly)neuropathy; E11.22 Type 2 diabetes mellitus with diabetic chronic kidney disease; E78.5 Hyperlipidemia, unspecified; I25.10 Atherosclerotic heart disease of native coronary artery without angina pectoris; G47.33 Obstructive sleep apnea (adult) (pediatric); F17.200 Nicotine dependence, unspecified, uncomplicated; J44.9 Chronic obstructive pulmonary disease, unspecified; F31.9 Bipolar disorder, unspecified; I71.4 Abdominal aortic aneurysm, without rupture; M32.9 Systemic lupus erythematosus, unspecified; N25.0 Renal osteodystrophy; E11.51 Type 2 diabetes mellitus with diabetic peripheral angiopathy without gangrene; E11.65 Type 2 diabetes mellitus with hyperglycemia; K21.9 Gastro-esophageal reflux disease without esophagitis; I70.0 Atherosclerosis of aorta; I70.8 Atherosclerosis of other arteries; K31.84 Gastroparesis; M54.16 Radiculopathy, lumbar region; D64.9 Anemia, unspecified; N30.90 Cystitis, unspecified without hematuria; F41.9 Anxiety disorder, unspecified; I48.91 Unspecified atrial fibrillation; Z79.02 Long term (current) use of antithrombotics/antiplatelets; Z11.59 Encounter for screening for other viral diseases; Z79.01 Long term (current) use of anticoagulants; Z79.4 Long term (current) use of insulin; Z79.82 Long term (current) use of aspirin; Z79.899 Other long term (current) drug therapy; Z88.1 Allergy status to other antibiotic agents; Z91.040 Latex allergy status; Z88.2 Allergy status to sulfonamides; Z88.8 Allergy status to other drugs, medicaments and biological substances; Z91.018 Allergy to other foods; Z86.73 Personal history of transient ischemic attack (TIA), and cerebral infarction without residual deficits; I25.2 Old myocardial infarction; Z87.01 Personal history of pneumonia (recurrent); Z86.19 Personal history of other infectious and parasitic diseases; Z95.5 Presence of coronary angioplasty implant and graft; Z95.1 Presence of aortocoronary bypass graft; Z98.51 Tubal ligation status; Z98.890 Other specified postprocedural states; Z82.5 Family history of asthma and other chronic lower respiratory diseases; Z82.49 Family history of ischemic heart disease and other diseases of the circulatory system; Z86.718 Personal history of other venous thrombosis and embolism; Z99.2 Dependence on renal dialysis
CPT/HCPCS: 36415; 71275; 74174; 74176; 80048; 80053; 81001; 82150; 83036; 83516; 83690; 84443; 85025; 85027; 87086; 90935; 96374; 99285

== ENCOUNTER 2020-05-05 23:54 | Inpatient (IN) | payer MEDICARE, OTHER ==
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
--- NOTE | 2020-05-06 01:20 | XR ---
EXAMINATION TYPE: XR chest 2V DATE OF EXAM: 05/06/2020 COMPARISON: 03/12/2020 HISTORY: Difficulty breathing. Chest pain There is left-sided central venous catheter with tip in the right atrium. right-sided central venou s catheter with the tip superior vena cava. There are sternal wires. There is slight increased pulmonary interstitial density. There is no defini te pleural effusion. Bony thorax is intact. IMPRESSION: Slight increased interstitial pulmonary density compared to recent exam. No obvious heart failure.
[2020-05-06 02:00] LABS: Anisocytosis Slight; Basophils % (A) 0 %; Eosinophils # (A) 0.2 k/uL (0-0.7); Eosinophils % (A) 1 %; HCT 21.7 % (34.0-46.0); Lymphocytes # (A) 1.5 k/uL (1.0-4.8); Lymphocytes % (A) 11 %; MCH 28.5 pg (25.0-35.0); MCHC 34.5 g/dL (31.0-37.0); MCV 82.7 fL (80.0-100.0); Mean Platelet Volume 8.7; Monocytes # (A) 0.6 k/uL (0-1.0); Monocytes % (A) 4 %; Neutrophils # (A) 10.9 k/uL (1.3-7.7); Neutrophils % (A) 82 %; Platelet Count 195 k/uL (150-450); RBC 2.62 m/uL (3.80-5.40); RDW 16.7 % (11.5-15.5); WBC 13.2 k/uL (3.8-10.6)
[2020-05-06 02:09] LABS: Albumin 2.9 g/dL (3.5-5.0); Calcium 8.2 mg/dL (8.4-10.2); Potassium 3.9 mmol/L (3.5-5.1); Total Bilirubin 0.3 mg/dL (0.2-1.3); Total Protein 5.5 g/dL (6.3-8.2)
[2020-05-06 02:21] LABS: INR 0.9 (<1.2); Prothrombin Time 9.4 sec (9.0-12.0)
[2020-05-06 03:07] LABS: HGB 7.5 gm/dL (11.4-16.0)
[2020-05-06] MEDS ORDERED: NITROGLYCERIN SL TABS 0.4 MG TAB SUBLINGUAL PRN (03:55)
[2020-05-06] MEDS ORDERED: MORPHINE SULFATE 4 MG/ML SYRINGE IV STA (04:14)
[2020-05-06] MEDS ORDERED: FUROSEMIDE 10 MG/ML 4 ML VIAL IV STA (04:50)
[2020-05-06 06:24] LABS: Glucose,Whole Blood 362 mg/dL (75-99)
[2020-05-06] MEDS: CARVEDILOL 12.5 MG TAB PO SCH ×2 (06:31→17:05)
[2020-05-06] MEDS: SUCRALFATE 1 GM TAB PO SCH ×4 (06:31→21:28)
[2020-05-06] MEDS: PANTOPRAZOLE 40 MG TABLET PO SCH ×2 (06:31→17:05)
[2020-05-06] MEDS: METOCLOPRAMIDE 5 MG TAB PO SCH ×3 (06:31→17:05)
[2020-05-06] MEDS ORDERED: hydrALAZINE HCL 25 MG TAB PO SCH (09:00)
[2020-05-06] MEDS ORDERED: LISINOPRIL 10 MG TAB PO SCH (09:00)
[2020-05-06] MEDS: MAGNESIUM OXIDE 400 MG TAB PO SCH (09:31)
[2020-05-06] MEDS: METOPROLOL SUCCINATE (ER) 50 MG TAB.ER.24H PO SCH ×2 (09:31→21:27)
[2020-05-06] MEDS: FOLIC ACID-VIT B COMPLEX-VIT C 1 CAP PO SCH (09:31)
[2020-05-06] MEDS: amLODIPine 5 MG TAB PO SCH ×2 (09:31→21:28)
[2020-05-06] MEDS: FUROSEMIDE 40 MG TAB PO SCH ×2 (09:31→15:58)
[2020-05-06] MEDS: REPAGLINIDE 1 MG TAB PO SCH ×2 (09:31→17:05)
[2020-05-06] MEDS: HYDROcodone/APAP 5-325MG 1 EACH TAB PO PRN ×2 (09:34→21:28)
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
[2020-05-06 12:16] LABS: Glucose,Whole Blood 361 mg/dL (75-99)
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
[2020-05-06] MEDS: hydrALAZINE HCL 50 MG TAB PO SCH ×2 (15:58→21:27)
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
[2020-05-06 17:13] LABS: Glucose,Whole Blood 378 mg/dL (75-99)
[2020-05-06 19:53] LABS: Glucose,Whole Blood 378 mg/dL (75-99)
[2020-05-06] MEDS ORDERED: LISINOPRIL 20 MG TAB PO SCH (21:00)
[2020-05-06] MEDS: MONTELUKAST 10 MG TAB PO SCH (21:28)
[2020-05-06] MEDS: INSULIN ASPART (NovoLOG) 100 UNIT/ML VIAL SQ SCH (21:32)
[2020-05-06] MEDS: INSULIN DETEMIR (LEVEMIR) 100 UNIT/ML SYR SQ SCH (21:34)
--- NOTE | 2020-05-06 23:20 | HP ---
HISTORY AND PHYSICAL A 50-year-old female with multiple hospitalizations. She has had blood in her stools recently. She has not had a colonoscopy in 8 years. EGD for multiple years also. Due to increasing bleeding and severe anemia, she is admitted for GI bleeding, increasing abdominal pain. PAST MEDICAL HISTORY: Asthma, blood disorder, COPD, CVA, diabetes mellitus, DVT, dyslipidemia, hypertension, myocardial infarction, pneumonia, vascular disorder. SURGICAL HISTORY: CABG surgery, heart catheterization with stent, tubal ligation, anxiety, depression, bipolar. Current everyday smoker. FAMILY HISTORY: Mother asthma, cancer. Father DVT, myocardial infarction. Daughter DVT, pulmonary embolism, HOME MEDICINES: 1. Lasix 40 b.i.d. 2. Magnesium oxide 400 mg daily. 3. Metoprolol succinate 50 mg b.i.d. 4. Carafate 1 gram a.c. t.i.d. 5. Singulair 10 mg daily. 6. [place] 5 b.i.d. 7. Carvedilol 40 daily. 8. Reglan 5 mg a.c. t.i.d. 9. 0.5 b.i.d. 10.Bentyl 20 mg q.i.d. 11.Lantus 20 units daily. 12.Levaquin 500 every 48 hours. 13.Zestril 10 mg b.i.d. 14.Protonix 40 mg b.i.d. 15.Norvasc 5 mg b.i.d. 16.Prednisone taper. 17.Apresoline 75 t.i.d. ALLERGIES: LIPITOR, KEFLEX, ZOCOR, BACTRIM, TOMATOES. PHYSICAL EXAMINATION: VITAL SIGNS: Temp 98, blood pressure 150s over 70s, respiratory rate 20 to 28, pulse 90 to 91, temp 99.2. CARDIOVASCULAR: S1, S2. LUNGS: Clear. GI: Soft, increased bowel sounds. HEMATOLOGY: Negative Homans. PSYCH: Fair mood and affect. NEUROLOGIC: Alert and oriented x3. White count 13.2, BUN 31, creatinine 2.09. Glucose 306. AST 66, ALT 69, alkaline phosphatase 293. ASSESSMENT: 1. Gastrointestinal bleed. 2. End-stage renal disease. 3. Chronic obstructive pulmonary disease. 4. Diastolic congestive heart failure. 5. Acute on chronic renal insufficiency. 6. Dyslipidemia. 7. Anxiety. 8. Depression. Prognosis guarded. Condition stable. Follow up in next 24 to 48 hours. Possibly EGD and colonoscopy. Dialysis as tolerated. Continue current treatments. MMODL / IJN: [id number] /
[2020-05-07 06:11] LABS: Anisocytosis Slight; Basophils % (A) 0 %; Eosinophils # (A) 0.2 k/uL (0-0.7); Eosinophils % (A) 2 %; HCT 20.3 % (34.0-46.0); Lymphocytes # (A) 1.6 k/uL (1.0-4.8); Lymphocytes % (A) 14 %; MCH 28.1 pg (25.0-35.0); MCHC 33.7 g/dL (31.0-37.0); MCV 83.2 fL (80.0-100.0); Mean Platelet Volume 8.4; Monocytes # (A) 0.6 k/uL (0-1.0); Monocytes % (A) 5 %; Neutrophils # (A) 8.8 k/uL (1.3-7.7); Neutrophils % (A) 78 %; Platelet Count 183 k/uL (150-450); RBC 2.44 m/uL (3.80-5.40); RDW 16.6 % (11.5-15.5); WBC 11.2 k/uL (3.8-10.6)
[2020-05-07 06:15] LABS: HGB 6.9 gm/dL (11.4-16.0)
[2020-05-07 06:19] LABS: Glucose,Whole Blood 131 mg/dL (75-99)
[2020-05-07 06:28] LABS: Albumin 2.7 g/dL (3.5-5.0); Calcium 8.3 mg/dL (8.4-10.2); Potassium 4.1 mmol/L (3.5-5.1); Total Bilirubin 0.5 mg/dL (0.2-1.3); Total Protein 5.3 g/dL (6.3-8.2)
[2020-05-07] MEDS ORDERED: ASPIRIN 325 MG TAB PO SCH (09:00)
[2020-05-07] MEDS: FOLIC ACID-VIT B COMPLEX-VIT C 1 CAP PO SCH (09:08)
[2020-05-07] MEDS: CARVEDILOL 12.5 MG TAB PO SCH ×2 (09:08→17:48)
[2020-05-07] MEDS: hydrALAZINE HCL 50 MG TAB PO SCH ×3 (09:08→21:48)
[2020-05-07] MEDS: PANTOPRAZOLE 40 MG TABLET PO SCH ×2 (09:09→17:48)
[2020-05-07] MEDS: amLODIPine 5 MG TAB PO SCH ×2 (09:09→21:51)
[2020-05-07] MEDS: METOCLOPRAMIDE 5 MG TAB PO SCH ×3 (09:09→17:48)
[2020-05-07] MEDS: FUROSEMIDE 40 MG TAB PO SCH ×2 (09:09→15:52)
[2020-05-07] MEDS: SUCRALFATE 1 GM TAB PO SCH ×4 (09:09→21:50)
[2020-05-07] MEDS: INSULIN ASPART (NovoLOG) 100 UNIT/ML VIAL SQ SCH ×4 (09:11→21:51)
[2020-05-07] MEDS: MAGNESIUM OXIDE 400 MG TAB PO SCH (09:16)
[2020-05-07] MEDS: METOPROLOL SUCCINATE (ER) 50 MG TAB.ER.24H PO SCH ×2 (09:17→21:50)
--- NOTE | 2020-05-07 09:54 | P.PN ---
Subjective Progress Note Date: 05/07/20 This is a pleasant 50-year-old -Irish female patient who follows with Dr. Dean Jhaveri in the office. Has a history of end-stage renal disease on hemodialysis, history of CAD status post coronary artery bypass grafting done in [place], hypertension, hyperlipidemia, chronic smoker, COPD, lupus, diabetes mellitus. Presented to the emergency department with progressively worsening shortness of breath over the past week with weight gain, edema and orthopnea. Has verbalized compliance with medications, diet and dialysis. There has been a question of possible noncompliance in the past. Says that recently they've been taking less fluid as initially they were taking too much fluid during dialysis. Chest x-ray on admission showed slightly increased interstitial pulmonary density compared to recent exam, no obvious heart failure. EKG showed sinus rhythm with right bundle branch block, left posterior fascicular block, bifascicular block no change compared to EKG from February of this year. Labs on admission showed white blood cell count 13,200, hemoglobin is 7.5 which appears her baseline is around 9 or 10, potassium 3.9, BUN 31, creatinine 2.09, glucose 356, plasma lactic acid 1.2, elevated AST ALT and alkaline phosphatase, NT proBNP 39,200 which is higher compared to previous draws going back as far as March 2019. Troponins are abnormal at 0.445 and 0.5 which have previously been within normal range in February and in January. Vital signs show elevated blood pressure, normal heart rate, afebrile and oxygen saturation 100% on 2 L nasal cannula. Upon examination patient is resting in bed with head of bed up. Continues to complain of some shortness of breath and orthopnea as well as mild edema. She has apparently not been sleeping well due to orthopnea and is quite tired this morning. She's had no complaints of chest discomfort. No palpitations, dizziness or lightheadedness. She has noted elevated blood pressure at home. She verbalizes having some blood noted upon wiping on Thursday but felt this was related to frequent bowel movements. 05/07/2020 The patient was seen and examined this morning resting comfortably in bed. She complains of foot pain that's burning in nature. She has discussed this with primary. Nephrology saw the patient in consultation yesterday and is planning for hemodialysis today, 3 L of ultrafiltration. Hemoglobin is 6.9 this morning and primary has ordered transfusion. She was seen in consultation yesterday by Dr. Redman who is recommending anemia workup to include upper and lower endoscopy. EGD is scheduled for today and it appears colonoscopy is scheduled for the . Vital signs show somewhat better control blood pressure with most recent readings of 133/67, 161/70 160/77. She is afebrile. Laboratory values this morning show a hemoglobin of 6.9, BUN 41 and creatinine 2.34 with a potassium of 4.1, AST 68, ALT 86 and an alkaline phosphatase of 270. LDL is elevated at 101, patient has been intolerant to statins as well as Zetia in the past. Objective - Vital Signs Vital signs: Vital Signs Temp 98.2 F 05/07/20 07:27 Pulse 74 05/07/20 07:27 Resp 16 05/07/20 07:27 BP 160/77 05/07/20 07:27 Pulse Ox 99 05/07/20 07:27 Intake & Output 05/06/20 05/07/20 05/07/20 18:59 06:59 18:59 Intake Total 462 222 Balance 462 222 Weight 91.8 kg Intake: Oral 462 222 Other: Voiding Method Bedside Commode Bedside Commode Bedside Commode # Voids 2 5 - Exam PHYSICAL EXAMINATION: This is a 50-year-old -Irish female who appears to be in no acute distress at the time of my examination. VITAL SIGNS: Blood pressure 160/77, heart rate 74, respirations 16, temp 98.2F. Patient is 99 % on 2 L nasal cannula. HEENT: Head is atraumatic, normocephalic. Pupils are equal, round. Sclerae anicteric. Conjunctivae are clear. Mucous membranes of the mouth are moist. Neck is supple. There is elevated jugular venous pressure. Left carotid bruit is heard. CHEST EXAMINATION: Revealed diminished air entry throughout. Respirations even and nonlabored. Left chest permacath noted. HEART EXAMINATION: Heart regular, positive S1 and S2 with a systolic murmur. No S3. No S4. No clicks, rubs. ABDOMEN: Soft, nontender. Bowel sounds are heard. No organomegaly noted. EXTREMITIES: Diminished peripheral pulses with evidence of trace peripheral edema and no calf tenderness noted. NEUROLOGIC EXAMINATION: Patient is awake, alert and oriented x3. - Labs CBC & Chem 7: 05/07/20 05:39 05/07/20 05:39 Labs: Abnormal Lab Results - Last 24 Hours (Table) 05/06/20 05/06/20 05/06/20 Range/Units 11:57 13:45 17:01 WBC (3.8-10.6) k/uL RBC (3.80-5.40) m/uL Hgb (11.4-16.0) gm/dL Hct (34.0-46.0) % RDW (11.5-15.5) % Neutrophils # (1.3-7.7) k/uL Sodium (137-145) mmol/L BUN (7-17) mg/dL Creatinine (0.52-1.04) mg/dL Glucose (74-99) mg/dL POC Glucose (mg/dL) 361 H 378 H (75-99) mg/dL Calcium (8.4-10.2) mg/dL AST (14-36) U/L ALT (4-34) U/L Alkaline Phosphatase (38-126) U/L Troponin I 0.597 H* (0.000-0.034) ng/mL Total Protein (6.3-8.2) g/dL Albumin (3.5-5.0) g/dL LDL Cholesterol, Calc (0-99) mg/dL Crossmatch 05/06/20 05/07/20 05/07/20 Range/Units 19:52 05:39 05:39 WBC 11.2 H (3.8-10.6) k/uL RBC 2.44 L (3.80-5.40) m/uL Hgb 6.9 L* (11.4-16.0) gm/dL Hct 20.3 L (34.0-46.0) % RDW 16.6 H (11.5-15.5) % Neutrophils # 8.8 H (1.3-7.7) k/uL Sodium 134 L (137-145) mmol/L BUN 41 H (7-17) mg/dL Creatinine 2.38 H (0.52-1.04) mg/dL Glucose 118 H (74-99) mg/dL POC Glucose (mg/dL) 378 H (75-99) mg/dL Calcium 8.3 L (8.4-10.2) mg/dL AST 68 H (14-36) U/L ALT 86 H (4-34) U/L Alkaline Phosphatase 270 H (38-126) U/L Troponin I (0.000-0.034) ng/mL Total Protein 5.3 L (6.3-8.2) g/dL Albumin 2.7 L (3.5-5.0) g/dL LDL Cholesterol, Calc 101 H (0-99) mg/dL Crossmatch 05/07/20 05/07/20 Range/Units 06:18 06:50 WBC (3.8-10.6) k/uL RBC (3.80-5.40) m/uL Hgb (11.4-16.0) gm/dL Hct (34.0-46.0) % RDW (11.5-15.5) % Neutrophils # (1.3-7.7) k/uL Sodium (137-145) mmol/L BUN (7-17) mg/dL Creatinine (0.52-1.04) mg/dL Glucose (74-99) mg/dL POC Glucose (mg/dL) 131 H (75-99) mg/dL Calcium (8.4-10.2) mg/dL AST (14-36) U/L ALT (4-34) U/L Alkaline Phosphatase (38-126) U/L Troponin I (0.000-0.034) ng/mL Total Protein (6.3-8.2) g/dL Albumin (3.5-5.0) g/dL LDL Cholesterol, Calc (0-99) mg/dL Crossmatch See Detail Assessment and Plan Assessment: #1 NSTEMI, could be related to anemia and underlying failure however obstructive CAD cannot be definitively ruled out at this time #2 acute on chronic congestive heart failure, likely diastolic, most recent echo available shows an ejection fraction between 55-60% #3 hypertension, poorly controlled #4 chronic kidney disease, on hemodialysis #5 hyperlipidemia, intolerant to statins and Zetia in the past #6 diabetes mellitus #7 lupus #8 anemia with no clear evidence of bleeding #9 history of noncompliance Plan: From cardiology's perspective await 2-D echo with Doppler study to assess cardiac structure and function. Continue to follow electrolytes, renal function, daily weights and intake and output. Continue to follow hemoglobin closely. Await GIs recommendations. Based on the patient's clinical status, findings of endoscopy and findings of echocardiogram further recommendations will be made. DESK MONITOR note has been reviewed, I agree with a documented findings and plan of care. Patient was seen and examined.
[2020-05-07] MEDS: HYDROcodone/APAP 5-325MG 1 EACH TAB PO PRN ×2 (11:02→21:49)
[2020-05-07 11:51] LABS: Glucose,Whole Blood 165 mg/dL (75-99)
[2020-05-07] MEDS: ASPIRIN 81 MG PO SCH (12:18)
--- NOTE | 2020-05-07 12:45 | P.PN ---
Subjective Progress Note Date: 05/07/20 CHIEF COMPLAINT: Anemia HISTORY OF PRESENT ILLNESS: Patient examined this morning bedside with Dr. Redman. Patient was scheduled for EGD this afternoon. However she is also supposed to have hemodialysis this afternoon. Patient's hemoglobin is 6.9. She is to receive 1 unit packed RBCs today. PHYSICAL EXAM: VITAL SIGNS: Reviewed GENERAL: Well-developed in no acute distress. HEENT: No sclera icterus. Extraocular movements grossly intact. Moist buccal mucosa. Head is atraumatic, normocephalic. Hears conversational speech. No nasal drainage. NECK: Supple without lymphadenopathy. CHEST: Non-labored respirations and equal bilateral excursions. CARDIOVASCULAR: Regular rate with regular rhythm. Palpable 2+ radial pulses. ABDOMEN: Soft. Nondistended. Nontender. MUSCULOSKELETAL: No clubbing or cyanosis. NEUROLOGIC: No focal or lateralizing signs. Cranial nerves II through XII grossly intact. PSYCH: Appropriate affect. Alert and oriented to person, place and time. SKIN: Well perfused. Good skin turgor. ASSESSMENT: 1. GI Bleed 2. End stage renal disease PLAN: -Monitor hemoglobin -EGD cancelled for today secondary to HD this afternoon -Diet as tolerated today -Clear liquid diet starting tomorrow at breakfast -GoLYTELY bowel prep to begin tomorrow -Patient will be scheduled for EGD and colonoscopy Thursday morning with Dr. Redman Nurse practitioner note has been reviewed by physician. Signing provider agrees with the documented findings, assessment, and plan of care. Objective - Vital Signs Vital signs: Vital Signs Temp 97.8 F 05/07/20 11:32 Pulse 71 05/07/20 11:32 Resp 20 05/07/20 11:32 BP 148/57 05/07/20 11:32 Pulse Ox 100 05/07/20 11:32 Intake & Output 05/06/20 05/07/20 05/07/20 18:59 06:59 18:59 Intake Total 462 222 0 Balance 462 222 0 Weight 91.8 kg Intake: Oral 462 222 Blood Product 0 Rc As-1 Unit 0 [id number] Other: Voiding Method Bedside Commode Bedside Commode Bedside Commode # Voids 2 5 - Labs CBC & Chem 7: 05/07/20 05:39 05/07/20 05:39 Labs: Abnormal Lab Results - Last 24 Hours (Table) 05/06/20 05/06/20 05/06/20 Range/Units 13:45 17:01 19:52 WBC (3.8-10.6) k/uL RBC (3.80-5.40) m/uL Hgb (11.4-16.0) gm/dL Hct (34.0-46.0) % RDW (11.5-15.5) % Neutrophils # (1.3-7.7) k/uL Sodium (137-145) mmol/L BUN (7-17) mg/dL Creatinine (0.52-1.04) mg/dL Glucose (74-99) mg/dL POC Glucose (mg/dL) 378 H 378 H (75-99) mg/dL Calcium (8.4-10.2) mg/dL AST (14-36) U/L ALT (4-34) U/L Alkaline Phosphatase (38-126) U/L Troponin I 0.597 H* (0.000-0.034) ng/mL Total Protein (6.3-8.2) g/dL Albumin (3.5-5.0) g/dL LDL Cholesterol, Calc (0-99) mg/dL Crossmatch 05/07/20 05/07/20 05/07/20 Range/Units 05:39 05:39 06:18 WBC 11.2 H (3.8-10.6) k/uL RBC 2.44 L (3.80-5.40) m/uL Hgb 6.9 L* (11.4-16.0) gm/dL Hct 20.3 L (34.0-46.0) % RDW 16.6 H (11.5-15.5) % Neutrophils # 8.8 H (1.3-7.7) k/uL Sodium 134 L (137-145) mmol/L BUN 41 H (7-17) mg/dL Creatinine 2.38 H (0.52-1.04) mg/dL Glucose 118 H (74-99) mg/dL POC Glucose (mg/dL) 131 H (75-99) mg/dL Calcium 8.3 L (8.4-10.2) mg/dL AST 68 H (14-36) U/L ALT 86 H (4-34) U/L Alkaline Phosphatase 270 H (38-126) U/L Troponin I (0.000-0.034) ng/mL Total Protein 5.3 L (6.3-8.2) g/dL Albumin 2.7 L (3.5-5.0) g/dL LDL Cholesterol, Calc 101 H (0-99) mg/dL Crossmatch 05/07/20 05/07/20 Range/Units 06:50 11:50 WBC (3.8-10.6) k/uL RBC (3.80-5.40) m/uL Hgb (11.4-16.0) gm/dL Hct (34.0-46.0) % RDW (11.5-15.5) % Neutrophils # (1.3-7.7) k/uL Sodium (137-145) mmol/L BUN (7-17) mg/dL Creatinine (0.52-1.04) mg/dL Glucose (74-99) mg/dL POC Glucose (mg/dL) 165 H (75-99) mg/dL Calcium (8.4-10.2) mg/dL AST (14-36) U/L ALT (4-34) U/L Alkaline Phosphatase (38-126) U/L Troponin I (0.000-0.034) ng/mL Total Protein (6.3-8.2) g/dL Albumin (3.5-5.0) g/dL LDL Cholesterol, Calc (0-99) mg/dL Crossmatch See Detail
[2020-05-07] MEDS ORDERED: DARBEPOETIN ALFA 60 MCG/0.3 ML SYRINGE SQ SCH (15:00)
[2020-05-07] MEDS: REPAGLINIDE 1 MG TAB PO SCH ×2 (15:15→17:48)
[2020-05-07 17:02] LABS: Glucose,Whole Blood 236 mg/dL (75-99)
--- NOTE | 2020-05-07 17:05 | PN ---
PROGRESS NOTE Patient is seen for followup for end-stage renal disease. Patient will be dialyzed today. However, she is also going for endoscopy. She denies any significant chest pains. She is complaining of some shortness of breath. Blood pressure was 125/55, heart rate 68 per minute. Patient is afebrile. Examination of the heart S1, S2. Examination of the lungs, decreased breath sounds at bases. Abdomen is soft, nontender. Examination of the lower extremities, edema 1+ bilaterally. LABS: Show hemoglobin 6.9, sodium 134, potassium 4.1, serum creatinine 2.38. ASSESSMENT: 1. End-stage renal disease on hemodialysis. Patient will be scheduled for hemodialysis today. Hopefully we can get her done prior to the endoscopy. We will try for about 3-4 L as tolerated. 2. Anemia with acute drop in hemoglobin, scheduled for endoscopy today. Patient is being followed by Surgery. She was initially scheduled for colonoscopy a few years ago, but did not follow through. 3. Hypertension, currently controlled. PLAN: Hemodialysis today, UF about 3-4 L as tolerated. Possible UF tomorrow depending on her volume status. MMODL / IJN: [id number] /
[2020-05-07 20:15] LABS: Glucose,Whole Blood 258 mg/dL (75-99)
[2020-05-07] MEDS: MONTELUKAST 10 MG TAB PO SCH (21:48)
[2020-05-07] MEDS: INSULIN DETEMIR (LEVEMIR) 100 UNIT/ML SYR SQ SCH (21:52)
--- NOTE | 2020-05-08 00:11 | PN ---
PROGRESS NOTE A 50-year-old female with severe abdominal pain. She is scheduled for EGD and colonoscopy after dialysis possibly today possibly tomorrow. We will transfuse 1 unit of blood today for hemoglobin 6.4. CARDIOVASCULAR: S1, S2. LUNGS: Clear. GI: Soft, increased bowel sounds. HEMATOLOGY: Negative Homans ASSESSMENT: 1. Severe anemia, probable gastrointestinal bleed. EGD and colonoscopy scheduled. Transfuse 1 unit of blood today. 2. Continue with current treatment for dialysis for end-stage renal disease, insulin for diabetes mellitus, chronic obstructive pulmonary disease and diastolic congestive heart failure. Continue with breathing treatments, Lasix. Please see further orders. MMODL / IJN: [id number] /
[2020-05-08 04:33] LABS: Glucose,Whole Blood 62 mg/dL (75-99)
[2020-05-08 04:52] LABS: Glucose,Whole Blood 79 mg/dL (75-99)
[2020-05-08] MEDS ORDERED: CLINDAMYCIN 900 MG in DEXTROSE 5% IN WATER 50 ML IVPB ONE ×2 (05:00)
[2020-05-08 06:04] LABS: Glucose,Whole Blood 101 mg/dL (75-99)
[2020-05-08 06:40] LABS: Albumin 2.6 g/dL (3.5-5.0); Calcium 8.5 mg/dL (8.4-10.2); Potassium 3.7 mmol/L (3.5-5.1); Total Bilirubin 0.5 mg/dL (0.2-1.3); Total Protein 5.3 g/dL (6.3-8.2)
[2020-05-08 06:41] LABS: Anisocytosis Slight; Basophils % (A) 0 %; Eosinophils # (A) 0.2 k/uL (0-0.7); Eosinophils % (A) 1 %; HCT 23.9 % (34.0-46.0); HGB 8.2 gm/dL (11.4-16.0); Lymphocytes # (A) 0.9 k/uL (1.0-4.8); Lymphocytes % (A) 8 %; MCH 29.4 pg (25.0-35.0); MCHC 34.4 g/dL (31.0-37.0); MCV 85.3 fL (80.0-100.0); Mean Platelet Volume 8.3; Monocytes # (A) 0.4 k/uL (0-1.0); Monocytes % (A) 4 %; Neutrophils # (A) 10.2 k/uL (1.3-7.7); Neutrophils % (A) 86 %; Platelet Count 176 k/uL (150-450); RDW 16.7 % (11.5-15.5); WBC 11.9 k/uL (3.8-10.6)
[2020-05-08] MEDS: REPAGLINIDE 1 MG TAB PO SCH ×2 (07:13→17:23)
[2020-05-08] MEDS: METOCLOPRAMIDE 5 MG TAB PO SCH ×3 (07:14→17:21)
[2020-05-08] MEDS: CARVEDILOL 12.5 MG TAB PO SCH ×2 (07:14→17:22)
[2020-05-08] MEDS: PANTOPRAZOLE 40 MG TABLET PO SCH ×2 (07:14→17:21)
[2020-05-08] MEDS: SUCRALFATE 1 GM TAB PO SCH ×4 (07:14→20:59)
[2020-05-08] MEDS ORDERED: PEG 3350-NA SULF,BICARB,CL/KCL 4,000 ML BOTTLE PO ONE (08:00)
[2020-05-08] MEDS: INSULIN ASPART (NovoLOG) 100 UNIT/ML VIAL SQ SCH ×4 (09:43→20:57)
[2020-05-08] MEDS: FUROSEMIDE 40 MG TAB PO SCH ×2 (09:44→17:21)
[2020-05-08] MEDS: amLODIPine 5 MG TAB PO SCH ×2 (09:44→20:58)
[2020-05-08] MEDS: ASPIRIN 81 MG PO SCH (09:44)
[2020-05-08] MEDS: hydrALAZINE HCL 50 MG TAB PO SCH ×3 (09:45→20:58)
[2020-05-08] MEDS: METOPROLOL SUCCINATE (ER) 50 MG TAB.ER.24H PO SCH ×2 (09:45→20:58)
[2020-05-08] MEDS: MAGNESIUM OXIDE 400 MG TAB PO SCH (09:45)
[2020-05-08] MEDS: HYDROcodone/APAP 5-325MG 1 EACH TAB PO PRN ×2 (09:46→17:41)
[2020-05-08] MEDS: FOLIC ACID-VIT B COMPLEX-VIT C 1 CAP PO SCH (10:59)
--- NOTE | 2020-05-08 11:06 | P.PN ---
Subjective Progress Note Date: 05/08/20 CHIEF COMPLAINT: Anemia HISTORY OF PRESENT ILLNESS: Patient examined this morning at the bedside with Dr. Redman. She received hemodialysis yesterday. Patient states she feels "lousy" this morning. She denies abdominal pain. Denies any bloody stools. PHYSICAL EXAM: VITAL SIGNS: Reviewed GENERAL: Well-developed in no acute distress. HEENT: No sclera icterus. Extraocular movements grossly intact. Moist buccal mucosa. Head is atraumatic, normocephalic. Hears conversational speech. No nasal drainage. NECK: Supple without lymphadenopathy. CHEST: Non-labored respirations and equal bilateral excursions. CARDIOVASCULAR: Regular rate with regular rhythm. Palpable 2+ radial pulses. ABDOMEN: Soft. Nondistended. Nontender. MUSCULOSKELETAL: No clubbing or cyanosis. NEUROLOGIC: No focal or lateralizing signs. Cranial nerves II through XII grossly intact. PSYCH: Appropriate affect. Alert and oriented to person, place and time. SKIN: Well perfused. Good skin turgor. ASSESSMENT: 1. GI Bleed 2. End stage renal disease PLAN: -Monitor hemoglobin -Clear liquid diet today. NPO at midnight -GoLYTELY bowel prep -Patient scheduled for EGD and colonoscopy tomorrow morning with Dr. Redman Nurse practitioner note has been reviewed by physician. Signing provider agrees with the documented findings, assessment, and plan of care. Objective - Vital Signs Vital signs: Vital Signs Temp 97.9 F 05/08/20 08:00 Pulse 67 05/08/20 08:00 Resp 16 05/08/20 08:00 BP 163/72 05/08/20 08:00 Pulse Ox 98 05/08/20 08:00 Intake & Output 05/07/20 05/08/20 05/08/20 18:59 06:59 18:59 Intake Total 980 120 Output Total 3000 1 Balance -2019 120 Weight 92.5 kg Intake: Oral 360 120 Blood Product 620 Rc As-1 Unit 310 [id number] Output: Urine 1 Hemodialysis 3000 Other: Voiding Method Bedside Commode Bedside Commode Toilet # Voids 5 0 - Labs CBC & Chem 7: 05/08/20 06:00 05/08/20 06:00 Labs: Abnormal Lab Results - Last 24 Hours (Table) 05/07/20 05/07/20 05/07/20 Range/Units 06:50 11:50 17:00 WBC (3.8-10.6) k/uL RBC (3.80-5.40) m/uL Hgb (11.4-16.0) gm/dL Hct (34.0-46.0) % RDW (11.5-15.5) % Neutrophils # (1.3-7.7) k/uL Lymphocytes # (1.0-4.8) k/uL Sodium (137-145) mmol/L BUN (7-17) mg/dL Creatinine (0.52-1.04) mg/dL POC Glucose (mg/dL) 165 H 236 H (75-99) mg/dL AST (14-36) U/L ALT (4-34) U/L Alkaline Phosphatase (38-126) U/L Total Protein (6.3-8.2) g/dL Albumin (3.5-5.0) g/dL Crossmatch See Detail 05/07/20 05/08/20 05/08/20 Range/Units 20:14 04:31 06:00 WBC 11.9 H (3.8-10.6) k/uL RBC 2.80 L (3.80-5.40) m/uL Hgb 8.2 L (11.4-16.0) gm/dL Hct 23.9 L (34.0-46.0) % RDW 16.7 H (11.5-15.5) % Neutrophils # 10.2 H (1.3-7.7) k/uL Lymphocytes # 0.9 L (1.0-4.8) k/uL Sodium (137-145) mmol/L BUN (7-17) mg/dL Creatinine (0.52-1.04) mg/dL POC Glucose (mg/dL) 258 H 62 L (75-99) mg/dL AST (14-36) U/L ALT (4-34) U/L Alkaline Phosphatase (38-126) U/L Total Protein (6.3-8.2) g/dL Albumin (3.5-5.0) g/dL Crossmatch 05/08/20 05/08/20 Range/Units 06:00 06:03 WBC (3.8-10.6) k/uL RBC (3.80-5.40) m/uL Hgb (11.4-16.0) gm/dL Hct (34.0-46.0) % RDW (11.5-15.5) % Neutrophils # (1.3-7.7) k/uL Lymphocytes # (1.0-4.8) k/uL Sodium 131 L (137-145) mmol/L BUN 25 H (7-17) mg/dL Creatinine 2.05 H (0.52-1.04) mg/dL POC Glucose (mg/dL) 101 H (75-99) mg/dL AST 57 H (14-36) U/L ALT 73 H (4-34) U/L Alkaline Phosphatase 289 H (38-126) U/L Total Protein 5.3 L (6.3-8.2) g/dL Albumin 2.6 L (3.5-5.0) g/dL Crossmatch
[2020-05-08 12:13] LABS: Glucose,Whole Blood 211 mg/dL (75-99)
--- NOTE | 2020-05-08 14:19 | PN ---
PROGRESS NOTE Patient is seen for followup for end-stage renal disease. She is scheduled for hemodialysis tomorrow. Patient tolerated her treatment well. Her colonoscopy scheduled for tomorrow morning. No significant complaints today. Shortness of breath has improved. PHYSICAL EXAMINATION: This morning blood pressure was 163/72, heart rate 67 per minute, she is afebrile. Examination of the heart S1, S2. Examination of the lungs, bilateral breath sounds are heard. Abdomen is soft, nontender. Examination of the lower extremities shows no significant edema. LABS: Show sodium 131, potassium 3.7, BUN 25, serum creatinine 2.0. ASSESSMENT: 1. End-stage renal disease, on hemodialysis on a Thursday, Thursday, Thursday schedule. 2. Severe volume overload. 3. Anemia, status post packed RBCs yesterday, scheduled for colonoscopy. 4. CKD mineral bone disorder. PLAN: Hemodialysis in a.m., goal UF about 3-4 L. MMODL / IJN: [id number] /
--- NOTE | 2020-05-08 14:21 | P.PN ---
Subjective Progress Note Date: 05/08/20 This is a 50-year-old -Citizen Of [place] female who follows with Dr. Asim Jhaveri in the office. She has a history of end-stage renal disease on hemodialysis, history of coronary artery disease with prior bypass surgery, hypertension, hyperlipidemia, nicotine dependence, COPD, lupus, diabetes, who presented to the hospital with symptoms of progressively worsening shortness of breath. Patient was also found to be significantly anemic and is being worked up from a GI perspective. She scheduled tomorrow to undergo EGD and colonoscopy. Blood pressure this morning 134/62 with a heart rate in the 60s, 100% on 2 L of oxygen. White blood cell count 11.9, hemoglobin 8.2, platelet count 176. Sodium 131, potassium 3.7, BUN 25, creatinine 2.0. Objective - Vital Signs Vital signs: Vital Signs Temp 97.8 F 05/08/20 11:00 Pulse 62 05/08/20 11:00 Resp 16 05/08/20 11:00 BP 135/63 05/08/20 11:00 Pulse Ox 100 05/08/20 11:00 Intake & Output 05/07/20 05/08/20 05/08/20 18:59 06:59 18:59 Intake Total 980 120 Output Total 3000 1 Balance 120 Weight 92.5 kg Intake: Oral 360 120 Blood Product 620 Rc As-1 Unit 310 [id number] Output: Urine 1 Hemodialysis 3000 Other: Voiding Method Bedside Commode Bedside Commode Toilet # Voids 5 0 - Exam PHYSICAL EXAMINATION: This is a 50-year-old -Citizen Of [place] female who appears to be in no acute distress at the time of my examination. VITAL SIGNS: Blood pressure 160/77, heart rate 74, respirations 16, temp 98.2F. Patient is 99 % on 2 L nasal cannula. HEENT: Head is atraumatic, normocephalic. Pupils are equal, round. Sclerae anicteric. Conjunctivae are clear. Mucous membranes of the mouth are moist. Neck is supple. There is elevated jugular venous pressure. Left carotid bruit is heard. CHEST EXAMINATION: Revealed diminished air entry throughout. Respirations even and nonlabored. Left chest permacath noted. HEART EXAMINATION: Heart regular, positive S1 and S2 with a systolic murmur. No S3. No S4. No clicks, rubs. ABDOMEN: Soft, nontender. Bowel sounds are heard. No organomegaly noted. EXTREMITIES: Diminished peripheral pulses with evidence of trace peripheral edema and no calf tenderness noted. NEUROLOGIC EXAMINATION: Patient is awake, alert and oriented x3. - Labs CBC & Chem 7: 05/08/20 06:00 05/08/20 06:00 Labs: Abnormal Lab Results - Last 24 Hours (Table) 05/07/20 05/07/20 05/07/20 Range/Units 06:50 17:00 20:14 WBC (3.8-10.6) k/uL RBC (3.80-5.40) m/uL Hgb (11.4-16.0) gm/dL Hct (34.0-46.0) % RDW (11.5-15.5) % Neutrophils # (1.3-7.7) k/uL Lymphocytes # (1.0-4.8) k/uL Sodium (137-145) mmol/L BUN (7-17) mg/dL Creatinine (0.52-1.04) mg/dL POC Glucose (mg/dL) 236 H 258 H (75-99) mg/dL AST (14-36) U/L ALT (4-34) U/L Alkaline Phosphatase (38-126) U/L Total Protein (6.3-8.2) g/dL Albumin (3.5-5.0) g/dL Crossmatch See Detail 05/08/20 05/08/20 05/08/20 Range/Units 04:31 06:00 06:00 WBC 11.9 H (3.8-10.6) k/uL RBC 2.80 L (3.80-5.40) m/uL Hgb 8.2 L (11.4-16.0) gm/dL Hct 23.9 L (34.0-46.0) % RDW 16.7 H (11.5-15.5) % Neutrophils # 10.2 H (1.3-7.7) k/uL Lymphocytes # 0.9 L (1.0-4.8) k/uL Sodium 131 L (137-145) mmol/L BUN 25 H (7-17) mg/dL Creatinine 2.05 H (0.52-1.04) mg/dL POC Glucose (mg/dL) 62 L (75-99) mg/dL AST 57 H (14-36) U/L ALT 73 H (4-34) U/L Alkaline Phosphatase 289 H (38-126) U/L Total Protein 5.3 L (6.3-8.2) g/dL Albumin 2.6 L (3.5-5.0) g/dL Crossmatch 05/08/20 05/08/20 Range/Units 06:03 12:05 WBC (3.8-10.6) k/uL RBC (3.80-5.40) m/uL Hgb (11.4-16.0) gm/dL Hct (34.0-46.0) % RDW (11.5-15.5) % Neutrophils # (1.3-7.7) k/uL Lymphocytes # (1.0-4.8) k/uL Sodium (137-145) mmol/L BUN (7-17) mg/dL Creatinine (0.52-1.04) mg/dL POC Glucose (mg/dL) 101 H 211 H (75-99) mg/dL AST (14-36) U/L ALT (4-34) U/L Alkaline Phosphatase (38-126) U/L Total Protein (6.3-8.2) g/dL Albumin (3.5-5.0) g/dL Crossmatch Assessment and Plan Plan: Assessment and Plan: #1 NSTEMI, could be related to anemia and underlying failure however obstructive CAD cannot be definitively ruled out at this time #2 acute on chronic congestive heart failure, likely diastolic, most recent echo available shows an ejection fraction between 55-60% #3 hypertension #4 chronic kidney disease, on hemodialysis #5 hyperlipidemia, intolerant to statins and Zetia in the past #6 diabetes mellitus #7 lupus #8 anemia, GI evaluation in progress #9 history of noncompliance Plan We will put another order in for an echo, the initial one had not yet been performed. Review echo, continue current medications. DNP note has been reviewed, I agree with a documented findings and plan of care. Patient was seen and examined.
[2020-05-08] MEDS ORDERED: ONDANSETRON 4 MG/2 ML VIAL IVP PRN (15:34)
[2020-05-08 17:09] LABS: Glucose,Whole Blood 293 mg/dL (75-99)
[2020-05-08] MEDS: SCOPOLAMINE 1.5MG/72HR PATCH TRANSDERM STA ×2 (17:27→17:32)
[2020-05-08] MEDS: LACTATED RINGERS 1,000 ML IV SCH (18:57)
[2020-05-08 20:22] LABS: Glucose,Whole Blood 180 mg/dL (75-99)
[2020-05-08] MEDS: MONTELUKAST 10 MG TAB PO SCH (20:58)
[2020-05-08] MEDS: INSULIN DETEMIR (LEVEMIR) 100 UNIT/ML SYR SQ SCH (20:59)
--- NOTE | 2020-05-08 22:36 | PN ---
PROGRESS NOTE She had hemodialysis yesterday. She feels lousy this morning. She has abdominal pain. Denies any bloody stools. CARDIOVASCULAR: S1, S2. LUNGS: Clear. GI: Increased bowel sounds. Diffuse tenderness. MUSCULOSKELETAL: No cyanosis or clubbing. NEUROLOGY: Alert and oriented. PSYCH: Fair mood and affect. ASSESSMENT: 1. Gastrointestinal bleed. 2. End-stage renal disease. 3. Severe anemia, status post one unit of blood transfusion. Hemoglobin 8.2. 4. Blood pressure acceleration. Continue with blood pressure medications. Please see further orders. EGD and colonoscopy in the morning followed by dialysis. MMODL / IJN: [id number] /
[2020-05-09 05:54] LABS: Glucose,Whole Blood 116 mg/dL (75-99)
[2020-05-09] MEDS: CARVEDILOL 12.5 MG TAB PO SCH ×2 (07:35→17:05)
[2020-05-09] MEDS: INSULIN ASPART (NovoLOG) 100 UNIT/ML VIAL SQ SCH ×4 (07:35→20:34)
[2020-05-09] MEDS: SUCRALFATE 1 GM TAB PO SCH ×4 (07:36→20:34)
[2020-05-09] MEDS: METOCLOPRAMIDE 5 MG TAB PO SCH ×3 (07:36→17:05)
[2020-05-09] MEDS: REPAGLINIDE 1 MG TAB PO SCH ×2 (07:36→17:05)
[2020-05-09] MEDS: PANTOPRAZOLE 40 MG TABLET PO SCH ×2 (07:36→17:05)
[2020-05-09] MEDS ORDERED: fentaNYL (PF) 50 MCG/ML 2 ML AMP ONE (08:02)
[2020-05-09] MEDS ORDERED: KETAMINE 10 MG/ML 20 ML VIAL ONE (08:02)
[2020-05-09] MEDS ORDERED: PROPOFOL 10 MG/ML 20 ML VIAL IV ONE (08:02)
[2020-05-09] MEDS ORDERED: LIDOCAINE 1% INJ 10MG/ML (20 ML MDV) ONE (08:02)
[2020-05-09] MEDS ORDERED: MIDAZOLAM 2 MG/2 ML VIAL ONE (08:02)
--- NOTE | 2020-05-09 08:08 | P.PN ---
Subjective Progress Note Date: 05/09/20 CHIEF COMPLAINT: Anemia and GI bleed HISTORY OF PRESENT ILLNESS: The patient is a 50-year-old female who presents with anemia and gastrointestinal bleed. Upper and lower endoscopy were offered for further evaluation and management. PAST MEDICAL HISTORY: Please see list. PAST SURGICAL HISTORY: Please see list. MEDICATIONS: Please see list. ALLERGIES: Please see list. SOCIAL HISTORY: Please see list. FAMILY HISTORY: No reports of Crohn disease or ulcerative colitis. REVIEW OF ORGAN SYSTEMS: CONSTITUTIONAL: No reports of fevers or chills. PHYSICAL EXAM: VITAL SIGNS: Stable GENERAL: Well-developed pleasant in no acute distress. HEENT: No scleral icterus. Extraocular movements grossly intact. Moist buccal mucosa. NECK: Supple without lymphadenopathy. CHEST: Unlabored respirations. Equal bilateral excursions. CARDIOVASCULAR: Regular rate and rhythm. Distal 2+ pulses. ABDOMEN: Soft, nondistended. MUSCULOSKELETAL: No clubbing, cyanosis, or edema. ASSESSMENT: 1. Anemia with gastrointestinal bleed PLAN: 1. Recommend proceeding with an upper and lower endoscopy Objective - Vital Signs Vital signs: Vital Signs Temp 98.3 F 05/09/20 04:00 Pulse 65 05/09/20 04:00 Resp 22 05/09/20 04:00 BP 133/61 05/09/20 04:00 Pulse Ox 100 05/09/20 04:00 Intake & Output 05/08/20 05/09/20 05/09/20 18:59 06:59 18:59 Intake Total 360 Output Total 1 Balance 360 -1 Weight 92.3 kg Intake: Oral 360 Output: Urine 1 Other: Voiding Method Toilet Toilet # Voids 0 - Labs CBC & Chem 7: 05/08/20 06:00 05/08/20 06:00 Labs: Abnormal Lab Results - Last 24 Hours (Table) 05/08/20 05/08/20 05/08/20 Range/Units 12:05 17:00 20:20 POC Glucose (mg/dL) 211 H 293 H 180 H (75-99) mg/dL 05/09/20 Range/Units 05:53 POC Glucose (mg/dL) 116 H (75-99) mg/dL
[2020-05-09] MEDS ORDERED: SODIUM CHLORIDE 0.9% 500 ML 500 ML IV ONE (08:16)
--- NOTE | 2020-05-09 08:29 | P.PCN ---
Date of Procedure: 05/09/20 Description of Procedure: PREOPERATIVE DIAGNOSIS: Gastrointestinal bleed Anemia POSTOPERATIVE DIAGNOSIS: Gastrointestinal bleed Anemia Erosive esophagitis with gastroesophageal reflux disease OPERATION: Esophagogastroduodenoscopy SURGEON: Payal Redman MD ANESTHESIA: MAC. INDICATIONS: The patient is a 50-year-old female who presents with anemia including gastrointestinal bleeding. Benefits and risks of the procedure were described. Informed consent was obtained. DESCRIPTION: The patient was brought into the endoscopy suite and laid in the left lateral decubitus position. An Olympus gastroscope was passed along the posterior oropharynx down to the distal esophagus where the squamocolumnar junction was encountered at 42 cm from the incisors. The stomach was entered and no bile reflux was found. Additional findings are listed below. The first through third portion of the duodenum was examined and unremarkable. Retroflexion of the scope confirmed Hill grade 2 lower esophageal valve. The squamocolumnar junction demonstrated LA grade B erosive esophagitis. The stomach was desufflated. The patient tolerated the procedure well. FINDINGS: Squamocolumnar junction 42 cm from the incisors. Diaphragmatic hiatus at 42 cm. Hill grade 2 lower esophageal valve. LA grade B erosive esophagitis. No active duodenitis. No evidence of peptic ulcer disease No evidence of duodenal ulcers No active acute gastritis or bleeding RECOMMENDATIONS: Upper endoscopy as needed.
--- NOTE | 2020-05-09 08:29 | P.PN ---
Progress Note - Text Progress Note Date: 05/09/20 Attempted colonoscopy demonstrated impacted stool in the rectum. Colonoscopy deferred for another day.
[2020-05-09] MEDS: LACTULOSE 20 GM/30 ML CUP PO SCH ×2 (09:18→20:28)
[2020-05-09] MEDS: ASPIRIN 81 MG PO SCH (09:20)
[2020-05-09] MEDS: MAGNESIUM HYDROXIDE 2,400 MG/10 ML CUP PO SCH ×2 (09:20→20:29)
[2020-05-09] MEDS: HYDROcodone/APAP 5-325MG 1 EACH TAB PO PRN ×2 (09:20→20:34)
[2020-05-09] MEDS: MAGNESIUM OXIDE 400 MG TAB PO SCH (09:20)
[2020-05-09] MEDS: amLODIPine 5 MG TAB PO SCH ×2 (09:20→20:34)
[2020-05-09] MEDS: hydrALAZINE HCL 50 MG TAB PO SCH ×3 (09:21→20:34)
[2020-05-09] MEDS: METOPROLOL SUCCINATE (ER) 50 MG TAB.ER.24H PO SCH ×2 (09:21→20:34)
[2020-05-09] MEDS: FUROSEMIDE 40 MG TAB PO SCH ×2 (09:21→17:05)
[2020-05-09] MEDS: FOLIC ACID-VIT B COMPLEX-VIT C 1 CAP PO SCH (09:23)
--- NOTE | 2020-05-09 10:41 | ECHOF ---
Referral Reason:dyspnea, elevated troponin MEASUREMENTS -------- HEIGHT: 172.7 cm WEIGHT: 93.0 kg BP: 135/63 RVIDd: 4.3 cm (< 3.3) IVSd: 1.6 cm (0.6 - 1.1) LVIDd: 3.7 cm (3.9 - 5.3) LVPWd: 1.4 cm (0.6 - 1.1) IVSs: 2.1 cm LVIDs: 2.1 cm LVPWs: 2.0 cm LAESV Index (A-L): 37.80 ml/m Ao Diam: 3.2 cm (2.0 - 3.7) AV Cusp: 1.7 cm (1.5 - 2.6) MV EXCURSION: 19.436 mm (> 18.000) MV EF SLOPE: 136 mm/s (70 - 150) EPSS: 0.4 cm MV E Cesar: 1.79 m/s MV DecT: 192 ms MV A Cesar: 1.24 m/s MV E/A Ratio: 1.45 AV maxP.05 mmHg AV meanP.42 mmHg RAP: 5.00 mmHg RVSP: 72.25 mmHg FINDINGS -------- Sinus rhythm with extra systolic beats. This was a technically adequate study. The left ventricular size is normal. There is moderate concentric left ventricular hypertrophy. O verall left ventricular systolic function is normal with, an EF between 55 - 60 %. Both the mean at rial pressure as well as the LV end diastolic pressure is elevated 34.51. The right ventricle is moderately enlarged. LA is moderately dilated 34-39 ml/m2 The right atrium is moderately enlarged. Interatrial and interventricular septum intact. There is moderate aortic valve sclerosis. There is no evidence of aortic regurgitation. There is no evidence of aortic stenosis. Mild mitral annular calcification present. Moderate mitral regurgitation is present. Severe tricuspid regurgitation present. There is severe pulmonary hypertension. The right ventric ular systolic pressure, as measured by Doppler, is 72.25mmHg. There is no pulmonic regurgitation present. The aortic root size is normal. The inferior vena cava is mildly dilated. There is no pericardial effusion. CONCLUSIONS -------- 1. Sinus rhythm with extra systolic beats. 2. This was a technically adequate study. 3. The left ventricular size is normal. 4. There is moderate concentric left ventricular hypertrophy. 5. Overall left ventricular systolic function is normal with, an EF between 55 - 60 %. 6. Both the mean atrial pressure as well as the LV end diastolic pressure is elevated 34.51. 7. The right ventricle is moderately enlarged. 8. LA is moderately dilated 34-39 ml/m2 9. The right atrium is moderately enlarged. 10. Interatrial and interventricular septum intact. 11. There is moderate aortic valve sclerosis. 12. There is no evidence of aortic regurgitation. 13. There is no evidence of aortic stenosis. 14. Mild mitral annular calcification present. 15. Moderate mitral regurgitation is present. 16. Severe tricuspid regurgitation present. 17. There is severe pulmonary hypertension. 18. The right ventricular systolic pressure, as measured by Doppler, is 72.25mmHg. 19. There is no pulmonic regurgitation present. 20. The aortic root size is normal. 21. The inferior vena cava is mildly dilated. 22. There is no pericardial effusion. AREA ATTENDANT: Natalia Esteves RDCS
[2020-05-09 11:44] LABS: Glucose,Whole Blood 128 mg/dL (75-99)
[2020-05-09 12:53] LABS: Anisocytosis Slight; Basophils % (A) 0 %; Eosinophils # (A) 0.2 k/uL (0-0.7); Eosinophils % (A) 2 %; HCT 22.9 % (34.0-46.0); HGB 7.9 gm/dL (11.4-16.0); Lymphocytes # (A) 1.4 k/uL (1.0-4.8); Lymphocytes % (A) 15 %; MCH 29.6 pg (25.0-35.0); MCHC 34.5 g/dL (31.0-37.0); MCV 85.6 fL (80.0-100.0); Mean Platelet Volume 8.1; Monocytes # (A) 0.4 k/uL (0-1.0); Monocytes % (A) 4 %; Neutrophils # (A) 7.8 k/uL (1.3-7.7); Neutrophils % (A) 79 %; Platelet Count 211 k/uL (150-450); RBC 2.68 m/uL (3.80-5.40); RDW 16.7 % (11.5-15.5); WBC 9.9 k/uL (3.8-10.6)
[2020-05-09 13:07] LABS: Albumin 2.6 g/dL (3.5-5.0); Calcium 8.6 mg/dL (8.4-10.2); Total Bilirubin 0.4 mg/dL (0.2-1.3); Total Protein 5.3 g/dL (6.3-8.2)
[2020-05-09 13:11] LABS: Potassium 4.9 mmol/L (3.5-5.1)
--- NOTE | 2020-05-09 13:34 | P.PN ---
Subjective Progress Note Date: 05/09/20 This is a 50-year-old -[place] female who follows with Dr. Asim Jhaveri in the office. She has a history of end-stage renal disease on hemodialysis, history of coronary artery disease with prior bypass surgery, hypertension, hyperlipidemia, nicotine dependence, COPD, lupus, diabetes, who presented to the hospital with symptoms of progressively worsening shortness of breath. Patient was also found to be significantly anemic and is being worked up from a GI perspective. She scheduled tomorrow to undergo EGD and colonoscopy. Blood pressure this morning 134/62 with a heart rate in the 60s, 100% on 2 L of oxygen. White blood cell count 11.9, hemoglobin 8.2, platelet count 176. Sodium 131, potassium 3.7, BUN 25, creatinine 2.0. 05/09/2020 Patient was seen and examined this morning, hemodynamically stable. Underwent an EGD yesterday which revealed some erosive esophagitis. Colonoscopy was attempted however demonstrated an impacted stool in the rectum. This was therefore deferred for another day. Patient complaining of feeling as though she needs to have a bowel movement. Blood pressure 128/60 with a heart rate of 60, 97% on room air. White blood cell count 9.9, hemoglobin 7.9, platelet count 211. Sodium 1:30, potassium 4.9, BUN 27, creatinine 2.5. Objective - Vital Signs Vital signs: Vital Signs Temp 98.1 F 05/09/20 12:00 Pulse 61 05/09/20 12:00 Resp 18 05/09/20 12:00 BP 128/63 05/09/20 12:00 Pulse Ox 97 05/09/20 12:00 Intake & Output 05/08/20 05/09/20 05/09/20 18:59 06:59 18:59 Intake Total 360 100 Output Total 1 Balance 360 -1 100 Weight 92.3 kg Intake: IV 100 Oral 360 Output: Urine 1 Other: Voiding Method Toilet Toilet # Voids 0 - Exam PHYSICAL EXAMINATION: This is a 50-year-old -[place] female who appears to be in no acute distress at the time of my examination. VITAL SIGNS: Blood pressure 160/77, heart rate 74, respirations 16, temp 98.2F. Patient is 99 % on 2 L nasal cannula. HEENT: Head is atraumatic, normocephalic. Pupils are equal, round. Sclerae a nicteric. Conjunctivae are clear. Mucous membranes of the mouth are moist. Neck is supple. There is elevated jugular venous pressure. Left carotid bruit is heard. CHEST EXAMINATION: Revealed diminished air entry throughout. Respirations even and nonlabored. Left chest permacath noted. HEART EXAMINATION: Heart regular, positive S1 and S2 with a systolic murmur. No S3. No S4. No clicks, rubs. ABDOMEN: Soft, nontender. Bowel sounds are heard. No organomegaly noted. EXTREMITIES: Diminished peripheral pulses with evidence of trace peripheral edema and no calf tenderness noted. NEUROLOGIC EXAMINATION: Patient is awake, alert and oriented x3. - Labs CBC & Chem 7: 05/09/20 12:00 05/09/20 12:00 Labs: Abnormal Lab Results - Last 24 Hours (Table) 05/08/20 05/08/20 05/09/20 Range/Units 17: 20:20 05:53 RBC (3.80-5.40) m/uL Hgb (11.4-16.0) gm/dL Hct (34.0-46.0) % RDW (11.5-15.5) % Neutrophils # (1.3-7.7) k/uL Sodium (137-145) mmol/L Chloride (98-107) mmol/L BUN (7-17) mg/dL Creatinine (0.52-1.04) mg/dL Glucose (74-99) mg/dL POC Glucose (mg/dL) 293 H 180 H 116 H (75-99) mg/dL AST (14-36) U/L ALT (4-34) U/L Alkaline Phosphatase (38-126) U/L Total Protein (6.3-8.2) g/dL Albumin (3.5-5.0) g/dL 05/09/20 05/09/20 05/09/20 Range/Units 11:26 12:00 12:00 RBC 2.68 L (3.80-5.40) m/uL Hgb 7.9 L (11.4-16.0) gm/dL Hct 22.9 L (34.0-46.0) % RDW 16.7 H (11.5-15.5) % Neutrophils # 7.8 H (1.3-7.7) k/uL Sodium 130 L (137-145) mmol/L Chloride 95 L (98-107) mmol/L BUN 27 H (7-17) mg/dL Creatinine 2.52 H (0.52-1.04) mg/dL Glucose 100 H (74-99) mg/dL POC Glucose (mg/dL) 128 H (75-99) mg/dL AST 39 H (14-36) U/L ALT 66 H (4-34) U/L Alkaline Phosphatase 306 H (38-126) U/L Total Protein 5.3 L (6.3-8.2) g/dL Albumin 2.6 L (3.5-5.0) g/dL Assessment and Plan Plan: Assessment and Plan: #1 NSTEMI, could be related to anemia and underlying failure however obstructive CAD cannot be definitively ruled out at this time #2 acute on chronic congestive heart failure, likely diastolic, most recent echo available shows an ejection fraction between 55-60% #3 hypertension #4 chronic kidney disease, on hemodialysis #5 hyperlipidemia, intolerant to statins and Zetia in the past #6 diabetes mellitus #7 lupus #8 anemia, GI evaluation in progress #9 history of noncompliance Plan EGD revealed erosive esophagitis. Unable to perform colonoscopy because of impacted stool in the rectum. Stable from cardiology's perspective. DNP note has been reviewed, I agree with a documented findings and plan of care. Patient was seen and examined.
--- NOTE | 2020-05-09 14:05 | PN ---
PROGRESS NOTE Patient is seen for followup for end-stage renal disease. This morning she is lying comfortably in bed. She is arousable, not in any acute distress. The patient is status post EGD this morning with no significant abnormality noted. She is scheduled for hemodialysis today. PHYSICAL EXAMINATION: On examination, blood pressure was 130/56, heart rate 70 per minute, she is afebrile. Examination of the heart S1, S2. Examination of the lungs, decreased breath sounds at bases. Abdomen is soft, nontender. Examination of the lower extremities shows trace edema. HAM MARKER exam grossly intact. LABS: Show hemoglobin 7.9 today. ASSESSMENT: 1. End-stage renal disease, on hemodialysis on a Thursday, Thursday, Thursday schedule. 2. Severe volume overload, currently improved. We will plan to remove another 3-4 L today. 3. Anemia with no active bleeding noted. EGD negative. Patient is maintained on Aranesp. 4. Hypertension, currently controlled. PLAN: Hemodialysis today, UF about 3-3.5 L as tolerated. MMODL / IJN: [id number] /
--- NOTE | 2020-05-09 15:25 | CDI ---
Documentation Clarification Form Date: 05/09/2020 03:02:01 PM From: Connie Rosales RN, CCDS Admit Date: 05/07/2020 11:24:00 AM Patient Name: Sharon Singh Visit Number: [id number] Discharge Date: ATTENTION: The Clinical Documentation Specialists (CDI) and [facility] Coding Staff appreciate your assistance in clarifying documentation. Please respond to the clarification below the line at the bottom and electronically sign. The CDI & [facility] Coding staff will review the response and follow-up if needed. Please note: Queries are made part of the Legal Health Record. If you have any questions, please contact the author of this message via ITS. Dr. Pavel Velasquez Anemia is documented in the H/P on 05/06 and subsequent documentation. Please provide further specificity of anemia. History/Risk Factors: COPD, Asthma, Blood Disorder, CVA, Diabetes Mellitus, DVT NV Hypertension, ESRD, Current every day smoker Clinical indicators: 50-year-old female present to ED on 05/06 with complaints of blood in her stools, increasing abdominal pain, worsening shortness of breath. 05/07 @07:27 Vital signs: 160/77 74 16 98.2 99 % NC 05/06 HGB 7.5 HCT 21.7: 05/07 HGB 6.9, HCT 20.3 Treatment 05/09 Surgical consult: Anemia and GI bleed 05/09EGD: Erosive esophagitis with gastroesophageal reflux disease Monitor CBC Transfuse 1 unit PRBC In order to capture the severity of condition, please clarify the type of anemia and etiology if known: Acute blood loss anemia Acute on chronic blood loss anemia Chronic blood loss anemia Anemia of chronic kidney disease Unable to determine Other, please specify (Last Form Revision: January 2020) MTDD
[2020-05-09 16:46] LABS: Glucose,Whole Blood 125 mg/dL (75-99)
[2020-05-09] MEDS: LACTATED RINGERS 1,000 ML IV SCH (17:06)
[2020-05-09 20:23] LABS: Glucose,Whole Blood 282 mg/dL (75-99)
[2020-05-09] MEDS: INSULIN DETEMIR (LEVEMIR) 100 UNIT/ML SYR SQ SCH (20:29)
[2020-05-09] MEDS: MONTELUKAST 10 MG TAB PO SCH (20:34)
--- NOTE | 2020-05-09 22:15 | PN ---
PROGRESS NOTE This patient is a 50-year-old white female. EGD showed no signs of bleeding. Did not cooperate with her prep, so she could not get a colonoscopy. We are going to have to re- try her prep. Dr. Redman is going to have to re-scope her with a colonoscopy. CARDIOVASCULAR: S1, S2. LUNGS: Transmitted upper airway sounds. HEMATOLOGY: Negative Homans. PSYCH: Fair mood and affect. ASSESSMENT: 1. Acute abdominal pain. 2. Gastrointestinal bleeding. Check CBC in the morning. 3. End-stage renal disease. I suspect colonoscopy is needed prior to discharge. Try different kind of prep. Please see further orders. MMODL / IJN: [id number] /
--- NOTE | 2020-05-09 22:21 | DS ---
DISCHARGE SUMMARY ADDENDUM TO DISCHARGE SUMMARY: Acute blood loss anemia secondary to gastrointestinal bleed. MMODL / IJN: [id number] /
[2020-05-10 06:15] LABS: Glucose,Whole Blood 244 mg/dL (75-99)
[2020-05-10] MEDS ORDERED: NA PHOS,M-B/NA PHOS,DI-BA 133 ML ENEMA RECTAL ONE (06:28)
[2020-05-10] MEDS: INSULIN ASPART (NovoLOG) 100 UNIT/ML VIAL SQ SCH ×4 (06:29→20:31)
[2020-05-10] MEDS: PANTOPRAZOLE 40 MG TABLET PO SCH ×2 (06:29→17:33)
[2020-05-10] MEDS: METOCLOPRAMIDE 5 MG TAB PO SCH ×3 (06:29→17:36)
[2020-05-10] MEDS: REPAGLINIDE 1 MG TAB PO SCH ×2 (06:29→17:33)
[2020-05-10] MEDS: SUCRALFATE 1 GM TAB PO SCH ×4 (06:29→20:31)
[2020-05-10] MEDS: CARVEDILOL 12.5 MG TAB PO SCH ×2 (06:30→17:33)
[2020-05-10] MEDS: ASPIRIN 81 MG PO SCH (08:17)
[2020-05-10] MEDS: FOLIC ACID-VIT B COMPLEX-VIT C 1 CAP PO SCH (08:17)
[2020-05-10] MEDS: amLODIPine 5 MG TAB PO SCH ×3 (08:17→20:32)
[2020-05-10] MEDS: hydrALAZINE HCL 50 MG TAB PO SCH ×4 (08:18→20:31)
[2020-05-10] MEDS: MAGNESIUM OXIDE 400 MG TAB PO SCH (08:18)
[2020-05-10] MEDS: MAGNESIUM HYDROXIDE 2,400 MG/10 ML CUP PO SCH ×2 (08:18→20:21)
[2020-05-10] MEDS: LACTULOSE 20 GM/30 ML CUP PO SCH ×2 (08:18→20:21)
[2020-05-10] MEDS: METOPROLOL SUCCINATE (ER) 50 MG TAB.ER.24H PO SCH ×2 (08:18→20:32)
[2020-05-10] MEDS: FUROSEMIDE 40 MG TAB PO SCH ×2 (08:18→16:23)
[2020-05-10 11:18] LABS: Glucose,Whole Blood 208 mg/dL (75-99)
--- NOTE | 2020-05-10 11:29 | P.PN ---
Subjective Progress Note Date: 05/10/20 CHIEF COMPLAINT: Anemia HISTORY OF PRESENT ILLNESS: Patient examined this morning at the bedside with Dr. Redman. She is s/p EGD. Colonoscopy could not be performed due to impacted stool in the rectum. Patient received an enema this morning. She was also placed on lactulose and milk of magnesia. Patient is on a clear liquid diet. She is upset with this and wants to eat regular food. PHYSICAL EXAM: VITAL SIGNS: Reviewed GENERAL: Well-developed in no acute distress. HEENT: No sclera icterus. Extraocular movements grossly intact. Moist buccal mucosa. Head is atraumatic, normocephalic. Hears conversational speech. No nasal draina ge. NECK: Supple without lymphadenopathy. CHEST: Non-labored respirations and equal bilateral excursions. CARDIOVASCULAR: Regular rate with regular rhythm. Palpable 2+ radial pulses. ABDOMEN: Soft. Nondistended. Nontender. MUSCULOSKELETAL: No clubbing or cyanosis. NEUROLOGIC: No focal or lateralizing signs. Cranial nerves II through XII grossly intact. PSYCH: Appropriate affect. Alert and oriented to person, place and time. SKIN: Well perfused. Good skin turgor. ASSESSMENT: 1. GI Bleed 2. End stage renal disease PLAN: -Monitor hemoglobin -Patient may be resumed on a renal diet -She may be discharged from a surgical standpoint -She is prescribed Miralax daily at discharge -She may follow up with Dr. Redman post discharge with plans for outpatient colonoscopy Nurse practitioner note has been reviewed by physician. Signing provider agrees with the documented findings, assessment, and plan of care. Objective - Vital Signs Vital signs: Vital Signs Temp 98.4 F 05/10/20 08:00 Pulse 72 05/10/20 08:00 Resp 19 05/10/20 08:00 BP 188/84 05/10/20 08:00 Pulse Ox 95 05/10/20 08:00 Intake & Output 05/09/20 05/10/20 05/10/20 18:59 06:59 18:59 Intake Total 100 Output Total 3500 Balance -3400 Weight 93.5 kg Intake: IV 100 Output: Hemodialysis 3500 Other: Voiding Method Toilet # Voids 1 1 # Bowel Movements 1 - Labs CBC & Chem 7: 05/09/20 12:00 05/09/20 12:00 Labs: Abnormal Lab Results - Last 24 Hours (Table) 05/09/20 05/09/20 05/09/20 Range/Units 11:26 12:00 12:00 RBC 2.68 L (3.80-5.40) m/uL Hgb 7.9 L (11.4-16.0) gm/dL Hct 22.9 L (34.0-46.0) % RDW 16.7 H (11.5-15.5) % Neutrophils # 7.8 H (1.3-7.7) k/uL Sodium 130 L (137-145) mmol/L Chloride 95 L (98-107) mmol/L BUN 27 H (7-17) mg/dL Creatinine 2.52 H (0.52-1.04) mg/dL Glucose 100 H (74-99) mg/dL POC Glucose (mg/dL) 128 H (75-99) mg/dL AST 39 H (14-36) U/L ALT 66 H (4-34) U/L Alkaline Phosphatase 306 H (38-126) U/L Total Protein 5.3 L (6.3-8.2) g/dL Albumin 2.6 L (3.5-5.0) g/dL 05/09/20 05/09/20 05/10/20 Range/Units 16:18 20:22 06:13 RBC (3.80-5.40) m/uL Hgb (11.4-16.0) gm/dL Hct (34.0-46.0) % RDW (11.5-15.5) % Neutrophils # (1.3-7.7) k/uL Sodium (137-145) mmol/L Chloride (98-107) mmol/L BUN (7-17) mg/dL Creatinine (0.52-1.04) mg/dL Glucose (74-99) mg/dL POC Glucose (mg/dL) 125 H 282 H 244 H (75-99) mg/dL AST (14-36) U/L ALT (4-34) U/L Alkaline Phosphatase (38-126) U/L Total Protein (6.3-8.2) g/dL Albumin (3.5-5.0) g/dL 05/10/20 Range/Units 11:17 RBC (3.80-5.40) m/uL Hgb (11.4-16.0) gm/dL Hct (34.0-46.0) % RDW (11.5-15.5) % Neutrophils # (1.3-7.7) k/uL Sodium (137-145) mmol/L Chloride (98-107) mmol/L BUN (7-17) mg/dL Creatinine (0.52-1.04) mg/dL Glucose (74-99) mg/dL POC Glucose (mg/dL) 208 H (75-99) mg/dL AST (14-36) U/L ALT (4-34) U/L Alkaline Phosphatase (38-126) U/L Total Protein (6.3-8.2) g/dL Albumin (3.5-5.0) g/dL
--- NOTE | 2020-05-10 14:24 | PN ---
PROGRESS NOTE Patient is seen for followup for end-stage renal disease. She is lying in bed. She is comfortable. Patient denies any significant complaints today. She states that she is hungry and wants to eat. No abdominal pain or nausea. PHYSICAL EXAMINATION: Blood pressure this morning was 188/84, heart rate 72 per minute, she is afebrile. Examination of the heart S1, S2. Examination of the lungs, decreased breath sounds at bases. Abdomen is soft, nontender. Examination of the lower extremities shows no significant edema. FIRST COAT SANDER exam grossly intact. LABS: Show sodium 130, potassium 4.9, hemoglobin of 7.9 g/dL. ASSESSMENT: 1. End-stage renal disease, on hemodialysis on a Thursday, Thursday, Thursday schedule. 2. Volume overload, currently improved. 3. Anemia with no active bleeding noted, status post EGD with no evidence of bleeding or major abnormalities found. PLAN: Hemodialysis in a.m. Continue to encourage increased oral intake. MMODL / IJN: [id number] /
--- NOTE | 2020-05-10 15:09 | P.PN ---
Subjective Progress Note Date: 05/10/20 This is a 50-year-old -Greenlandic female who follows with Dr. Asim Jhaveri in the office. She has a history of end-stage renal disease on hemodialysis, history of coronary artery disease with prior bypass surgery, hypertension, hyperlipidemia, nicotine dependence, COPD, lupus, diabetes, who presented to the hospital with symptoms of progressively worsening shortness of breath. Patient was also found to be significantly anemic and is being worked up from a GI perspective. She scheduled tomorrow to undergo EGD and colonoscopy. Blood pressure this morning 134/62 with a heart rate in the 60s, 100% on 2 L of oxygen. White blood cell count 11.9, hemoglobin 8.2, platelet count 176. Sodium 131, potassium 3.7, BUN 25, creatinine 2.0. 05/09/2020 Patient was seen and examined this morning, hemodynamically stable. Underwent an EGD yesterday which revealed some erosive esophagitis. Colonoscopy was attempted however demonstrated an impacted stool in the rectum. This was therefore deferred for another day. Patient complaining of feeling as though she needs to have a bowel movement. Blood pressure 128/60 with a heart rate of 60, 97% on room air. White blood cell count 9.9, hemoglobin 7.9, platelet count 211. Sodium 1:30, potassium 4.9, BUN 27, creatinine 2.5. 05/10/2020 Patient seen and examined this morning, states that she's just generally not feeling well, hemodynamically she is stable. She does feel that her breathing has improved since her dialysis yesterday. Objective - Vital Signs Vital signs: Vital Signs Temp 98.4 F 05/10/20 08:00 Pulse 72 05/10/20 08:00 Resp 19 05/10/20 08:00 BP 188/84 05/10/20 08:00 Pulse Ox 95 05/10/20 08:00 Intake & Output 05/09/20 05/10/20 05/10/20 18:59 06:59 18:59 Intake Total 100 240 Output Total 3500 Balance -3400 240 Weight 93.5 kg Intake: IV 100 Oral 240 Output: Hemodialysis 3500 Other: Voiding Method Toilet # Voids 1 1 # Bowel Movements 1 - Exam PHYSICAL EXAMINATION: This is a 50-year-old -Greenlandic female who appears to be in no acute distress at the time of my examination. VITAL SIGNS: Blood pressure 160/77, heart rate 74, respirations 16, temp 98.2F. Patient is 99 % on 2 L nasal cannula. HEENT: Head is atraumatic, normocephalic. Pupils are equal, round. Sclerae anicteric. Conjunctivae are clear. Mucous membranes of the mouth are moist. Neck is supple. There is elevated jugular venous pressure. Left carotid bruit is heard. CHEST EXAMINATION: Revealed diminished air entry throughout. Respirations even and nonlabored. Left chest permacath noted. HEART EXAMINATION: Heart regular, positive S1 and S2 with a systolic murmur. No S3. No S4. No clicks, rubs. ABDOMEN: Soft, nontender. Bowel sounds are heard. No organomegaly noted. EXTREMITIES: Diminished peripheral pulses with evidence of trace peripheral edema and no calf tenderness noted. NEUROLOGIC EXAMINATION: Patient is awake, alert and oriented x3. - Labs CBC & Chem 7: 05/09/20 12:00 05/09/20 12:00 Labs: Abnormal Lab Results - Last 24 Hours (Table) 05/09/20 05/09/20 05/10/20 Range/Units 16:18 20:22 06:13 POC Glucose (mg/dL) 125 H 282 H 244 H (75-99) mg/dL 05/10/20 Range/Units 11:17 POC Glucose (mg/dL) 208 H (75-99) mg/dL Assessment and Plan Plan: Assessment and Plan: #1 NSTEMI, could be related to anemia and underlying failure however obstructive CAD cannot be definitively ruled out at this time #2 acute on chronic congestive heart failure, likely diastolic, most recent echo available shows an ejection fraction between 55-60% #3 hypertension #4 chronic kidney disease, on hemodialysis #5 hyperlipidemia, intolerant to statins and Zetia in the past #6 diabetes mellitus #7 lupus #8 anemia, GI evaluation in progress #9 history of noncompliance Plan EGD revealed erosive esophagitis. Unable to perform colonoscopy because of impacted stool in the rectum. Stable from cardiology's perspective. DNP note has been reviewed, I agree with a documented findings and plan of care. Patient was seen and examined.
[2020-05-10 16:40] LABS: Glucose,Whole Blood 339 mg/dL (75-99)
[2020-05-10] MEDS: HYDROcodone/APAP 5-325MG 1 EACH TAB PO PRN (17:32)
[2020-05-10] MEDS: LACTATED RINGERS 1,000 ML IV SCH (18:47)
[2020-05-10 20:03] LABS: Glucose,Whole Blood 311 mg/dL (75-99)
[2020-05-10] MEDS: INSULIN DETEMIR (LEVEMIR) 100 UNIT/ML SYR SQ SCH (20:20)
[2020-05-10] MEDS: MONTELUKAST 10 MG TAB PO SCH (20:31)
--- NOTE | 2020-05-10 22:55 | PN ---
PROGRESS NOTE This patient is a 50-year-old -Mauritanian female, refuses to get colonoscopy done and take a different prep. Surgeons refused to do colonoscopy while in the hospital. The patient is unable to take prep. Surgeon would not give her another prep. They are going to try to arrange something as an outpatient; patient probably will not follow up, but that is the surgeon's recommendation. Blood pressure has been high, 180s to 190s over 70s to 80s, O2 97% on room air, temperature 98.4, pulse 70 to 74, respiratory rate 18 to 20. CARDIOVASCULAR: S1, S2. LUNGS: Clear. GI: Increased bowel sounds x4. HEMATOLOGY: Negative Homans. PSYCH: Fair mood and affect. ASSESSMENT: 1. Gastrointestinal bleeding; unclear etiology. 2. Acute on chronic anemia. 3. Chronic obstructive pulmonary disease. 4. Diastolic heart failure. Continue current treatments. Follow up in the next 24 to 48 hours for discharge. She is to follow up as an outpatient with surgeon if they can figure it out. MMODL / IJN: [id number] /
[2020-05-11 06:22] LABS: Glucose,Whole Blood 255 mg/dL (75-99)
[2020-05-11] MEDS: PANTOPRAZOLE 40 MG TABLET PO SCH (06:25)
[2020-05-11] MEDS: CARVEDILOL 12.5 MG TAB PO SCH (06:25)
[2020-05-11] MEDS: METOCLOPRAMIDE 5 MG TAB PO SCH ×2 (06:25→12:54)
[2020-05-11] MEDS: INSULIN ASPART (NovoLOG) 100 UNIT/ML VIAL SQ SCH ×2 (06:25→12:54)
[2020-05-11] MEDS: SUCRALFATE 1 GM TAB PO SCH ×2 (06:26→12:54)
[2020-05-11] MEDS: REPAGLINIDE 1 MG TAB PO SCH (06:26)
[2020-05-11] MEDS: HYDROcodone/APAP 5-325MG 1 EACH TAB PO PRN (06:27)
[2020-05-11] MEDS ORDERED: HEPARIN SODIUM,PORCINE 5,000 UNIT/ML 1 ML VIAL ONE (08:30)
[2020-05-11] MEDS ORDERED: ISOSORBIDE MONONITRATE ER 30 MG TAB.ER.24H PO SCH (10:15)
[2020-05-11 10:34] LABS: Anisocytosis Slight; Basophils % (A) 0 %; Eosinophils # (A) 0.2 k/uL (0-0.7); Eosinophils % (A) 2 %; HCT 23.6 % (34.0-46.0); Lymphocytes # (A) 1.3 k/uL (1.0-4.8); Lymphocytes % (A) 13 %; MCH 29.2 pg (25.0-35.0); MCHC 33.9 g/dL (31.0-37.0); MCV 86.3 fL (80.0-100.0); Monocytes # (A) 0.5 k/uL (0-1.0); Monocytes % (A) 5 %; Neutrophils # (A) 8.1 k/uL (1.3-7.7); Neutrophils % (A) 79 %; Platelet Count 253 k/uL (150-450); RBC 2.74 m/uL (3.80-5.40); RDW 16.8 % (11.5-15.5); WBC 10.2 k/uL (3.8-10.6)
[2020-05-11] MEDS: hydrALAZINE HCL 50 MG TAB PO SCH (11:40)
[2020-05-11] MEDS: ASPIRIN 81 MG PO SCH (11:44)
[2020-05-11] MEDS: FOLIC ACID-VIT B COMPLEX-VIT C 1 CAP PO SCH (11:44)
[2020-05-11] MEDS: FUROSEMIDE 40 MG TAB PO SCH (11:44)
[2020-05-11] MEDS: amLODIPine 5 MG TAB PO SCH (11:44)
[2020-05-11] MEDS: MAGNESIUM OXIDE 400 MG TAB PO SCH (11:45)
[2020-05-11] MEDS: METOPROLOL SUCCINATE (ER) 50 MG TAB.ER.24H PO SCH (11:45)
[2020-05-11] MEDS: LACTULOSE 20 GM/30 ML CUP PO SCH (11:45)
[2020-05-11] MEDS: MAGNESIUM HYDROXIDE 2,400 MG/10 ML CUP PO SCH (11:45)
--- NOTE | 2020-05-11 11:58 | P.PN ---
Subjective Progress Note Date: 05/11/20 This is a pleasant 50-year-old -Fijian female patient who follows with Dr. Dean Jhaveri in the office. Has a history of end-stage renal disease on hemodialysis, history of CAD status post coronary artery bypass grafting done in [place], hypertension, hyperlipidemia, chronic smoker, COPD, lupus, diabetes mellitus. Presented to the emergency department with progressively worsening shortness of breath over the past week with weight gain, edema and orthopnea. Has verbalized compliance with medications, diet and dialysis. There has been a question of possible noncompliance in the past. Says that recently they've been taking less fluid as initially they were taking too much fluid during dialysis. Chest x-ray on admission showed slightly increased interstitial pulmonary density compared to recent exam, no obvious heart failure. EKG showed sinus rhythm with right bundle branch block, left posterior fascicular block, bifascicular block no change compared to EKG from February of this year. Labs on admission showed white blood cell count 13,200, hemoglobin is 7.5 which appears her baseline is around 9 or 10, potassium 3.9, BUN 31, creatinine 2.09, glucose 356, plasma lactic acid 1.2, elevated AST ALT and alkaline phosphatase, NT proBNP 39,200 which is higher compared to previous draws going back as far as March 2019. Troponins are abnormal at 0.445 and 0.5 which have previously been within normal range in February and in January. Vital signs show elevated blood pressure, normal heart rate, afebrile and oxygen saturation 100% on 2 L nasal cannula. Upon examination patient is resting in bed with head of bed up. Continues to complain of some shortness of breath and orthopnea as well as mild edema. She has apparently not been sleeping well due to orthopnea and is quite tired this morning. She's had no complaints of chest discomfort. No palpitations, dizziness or lightheadedness. She has noted elevated blood pressure at home. She verbalizes having some blood noted upon wiping on Thursday but felt this was related to frequent bowel movements. 05/07/2020 The patient was seen and examined this morning resting comfortably in bed. She complains of foot pain that's burning in nature. She has discussed this with primary. Nephrology saw the patient in consultation yesterday and is planning for hemodialysis today, 3 L of ultrafiltration. Hemoglobin is 6.9 this morning and primary has ordered transfusion. She was seen in consultation yesterday by Dr. Redman who is recommending anemia workup to include upper and lower endoscopy. EGD is scheduled for today and it appears colonoscopy is scheduled for the . Vital signs show somewhat better control blood pressure with most recent readings of 133/67, 161/70 160/77. She is afebrile. Laboratory values this morning show a hemoglobin of 6.9, BUN 41 and creatinine 2.34 with a potassium of 4.1, AST 68, ALT 86 and an alkaline phosphatase of 270. LDL is elevated at 101, patient has been intolerant to statins as well as Zetia in the past. 05/11/2020 She was seen and examined this morning while undergoing dialysis. She is hemodynamically stable. Blood pressure remains elevated. Breathing is stable. She continues to complain of abdominal discomfort and nausea. EGD from the showed erosive esophagitis. A colonoscopy was attempted a few days ago however demonstrated an impacted stool at the rectum and was deferred for another day. Hemoglobin remains low but stable at 8. Blood pressure the smoking 167/82, she is afebrile and heart rates in the 70s. Echocardiogram done the other day showe d normal LV systolic function with ejection fraction between 55-60%, elevated mean atrial and LV end-diastolic pressures, moderately enlarged RV, moderately dilated LA, moderately enlarged RA, moderate aortic valve sclerosis, moderate MR, severe TR and severe pulmonary hypertension with an RVSP of 72 mmHg. Objective - Vital Signs Vital signs: Vital Signs Temp 98.8 F 05/11/20 04:00 Pulse 72 05/11/20 08:45 Resp 18 05/11/20 08:45 BP 167/82 05/11/20 08:45 Pulse Ox 98 05/11/20 04:00 Intake & Output 05/10/20 05/11/20 05/11/20 18:59 06:59 18:59 Intake Total 480 236 Balance 480 236 Weight 93.5 kg Intake: Oral 480 236 Other: Voiding Method Toilet # Voids 1 2 0 # Bowel Movements 1 - Exam PHYSICAL EXAMINATION: This is a 50-year-old -Fijian female who appears to be in no acute distress, receiving dialysis, at the time of my examination. VITAL SIGNS: Blood pressure 167/82, heart rate 72, respirations 18, temp 98.8F. Patient is 98% on room air. HEENT: Head is atraumatic, normocephalic. Pupils are equal, round. Sclerae anicteric. Conjunctivae are clear. Mucous membranes of the mouth are moist. Neck is supple. There is no elevated jugular venous pressure. CHEST EXAMINATION: Revealed diminished air entry throughout. Respirations even and nonlabored. Left chest permacath noted. HEART EXAMINATION: Heart regular, positive S1 and S2 with a systolic murmur. No S3. No S4. No clicks, rubs. ABDOMEN: Soft, tender. Bowel sounds are heard. No organomegaly noted. EXTREMITIES: Diminished peripheral pulses with evidence of trace peripheral edema and no calf tenderness noted. NEUROLOGIC EXAMINATION: Patient is awake, alert and oriented x3. - Labs CBC & Chem 7: 05/11/20 08:00 05/09/20 12:00 Labs: Abnormal Lab Results - Last 24 Hours (Table) 05/10/20 05/10/20 05/11/20 Range/Units 16:21 20:02 06:20 RBC (3.80-5.40) m/uL Hgb (11.4-16.0) gm/dL Hct (34.0-46.0) % RDW (11.5-15.5) % Neutrophils # (1.3-7.7) k/uL POC Glucose (mg/dL) 339 H 311 H 255 H (75-99) mg/dL 05/11/20 Range/Units 08:00 RBC 2.74 L (3.80-5.40) m/uL Hgb 8.0 L (11.4-16.0) gm/dL Hct 23.6 L (34.0-46.0) % RDW 16.8 H (11.5-15.5) % Neutrophils # 8.1 H (1.3-7.7) k/uL POC Glucose (mg/dL) (75-99) mg/dL Assessment and Plan Assessment: #1 NSTEMI, could be related to anemia and underlying failure however obstructive CAD cannot be definitively ruled out at this time #2 acute on chronic congestive heart failure, likely diastolic, most recent echo available shows an ejection fraction between 55-60% #3 hypertension, poorly controlled #4 chronic kidney disease, on hemodialysis #5 hyperlipidemia, intolerant to statins and Zetia in the past #6 diabetes mellitus #7 lupus #8 anemia with no clear evidence of bleeding #9 history of noncompliance Plan: From cardiology's perspective and occasionally reviewed and will continue the same as this time. Continue to follow the patient closely monitoring blood pressure and hemoglobin. Patient appears stable from a cardiac standpoint. It appears patient will be worked up as an outpatient with a colonoscopy by Dr. Redman. CALCULUS TUTOR note has been reviewed, I agree with a documented findings and plan of care. Patient was seen and examined.
[2020-05-11 12:23] VITALS: BP 164/79; PULSE 68; RESP 16; TEMP 98.6
--- NOTE | 2020-05-11 13:10 | P.PN ---
Subjective Progress Note Date: 05/11/20 CHIEF COMPLAINT: Anemia HISTORY OF PRESENT ILLNESS: Patient examined this morning at the bedside with Dr. Redman. Patient denies abdominal pain. She reports she has not had a good bowel movement. WBC 10.2. Hemoglobin 8.0. PHYSICAL EXAM: VITAL SIGNS: Reviewed GENERAL: Well-developed in no acute distress. HEENT: No sclera icterus. Extraocular movements grossly intact. Moist buccal mucosa. Head is atraumatic, normocephalic. Hears conversational speech. No nasal drainage. NECK: Supple without lymphadenopathy. CHEST: Non-labored respirations and equal bilateral excursions. CARDIOVASCULAR: Regular rate with regular rhythm. Palpable 2+ radial pulses. ABDOMEN: Soft. Nondistended. Nontender. MUSCULOSKELETAL: No clubbing or cyanosis. NEUROLOGIC: No focal or lateralizing signs. Cranial nerves II through XII grossly intact. PSYCH: Appropriate affect. Alert and oriented to person, place and time. SKIN: Well perfused. Good skin turgor. ASSESSMENT: 1. GI Bleed 2. End stage renal disease PLAN: -Monitor hemoglobin -Continue diet -Milk of molasses enema x 1 -She may be discharged from a surgical standpoint -She is prescribed Miralax daily at discharge -She may follow up with Dr. Redman post discharge with plans for outpatient colonoscopy Nurse practitioner note has been reviewed by physician. Signing provider agrees with the documented findings, assessment, and plan of care. Objective - Vital Signs Vital signs: Vital Signs Temp 98.6 F 05/11/20 12:22 Pulse 68 05/11/20 12:22 Resp 16 05/11/20 12:22 BP 164/79 05/11/20 12:22 Pulse Ox 94 L 05/11/20 12:00 Intake & Output 05/10/20 05/11/20 05/11/20 18:59 06:59 18:59 Intake Total 480 236 Output Total 3500 Balance 480 -3264 Weight 93.5 kg Intake: Oral 480 236 Output: Hemodialysis 3500 Other: Voiding Method Toilet # Voids 1 2 0 # Bowel Movements 1 - Labs CBC & Chem 7: 05/11/20 08:00 05/09/20 12:00 Labs: Abnormal Lab Results - Last 24 Hours (Table) 06/18/20 06/18/20 06/19/20 Range/Units 16:21 20:02 06:20 RBC (3.80-5.40) m/uL Hgb (11.4-16.0) gm/dL Hct (34.0-46.0) % RDW (11.5-15.5) % Neutrophils # (1.3-7.7) k/uL POC Glucose (mg/dL) 339 H 311 H 255 H (75-99) mg/dL 05/11/20 Range/Units 08:00 RBC 2.74 L (3.80-5.40) m/uL Hgb 8.0 L (11.4-16.0) gm/dL Hct 23.6 L (34.0-46.0) % RDW 16.8 H (11.5-15.5) % Neutrophils # 8.1 H (1.3-7.7) k/uL POC Glucose (mg/dL) (75-99) mg/dL
--- NOTE | 2020-05-11 16:45 | P.DS ---
Providers Date of admission: 05/07/20 11:24 Expected date of discharge: 05/11/20 Attending physician: Pavel Velasquez Consults: 05/06/20 03:55 Consult Physician Routine Consulting Provider: Keila Downs Consult Reason/Comments: dialysis patient Do you want consulting provider notified?: Yes Consult Physician Urgent Consulting Provider: Eugene Stevens Consult Reason/Comments: elevated troponin Do you want consulting provider notified?: Yes 05/06/20 09:43 Consult Physician Routine Consulting Provider: Payal Redman Consult Reason/Comments: gi bleed Do you want consulting provider notified?: Yes Primary care physician: [facility] Course: Final Diagnoses GI bleed with Acute blood loss anemia, etiology unclear. Erosive esophagitis Gastroesophageal reflux disease NSTEMI Acute on chronic congestive heart failure, diastolic, EF 55-60% Hypertension Diabetes mellitus, uncontrolled, hyperglycemic chronic kidney disease, on hemodialysis hyperlipidemia, intolerant to statins and Zetia, declining alternatives History of Abdominal aortic aneurysm, infrarenal, measuring 4.2 cm COPD, stable Bilateral patent common iliac artery stents with moderate stenosis within external iliac arteries History of Bilateral hilar soft tissue prominence measuring up to 1.4 cm, increasing retroperitoneal, periaortic nodularity 1.2 cm ,suggestive of lymphadenopathy possibly reactive, possibly granulomatous disease, possible sarcoidosis, systemic fungal or mycobacterial infection, lymphoma and connective tissue disorder. Close monitoring /follow-up OP Lumbar radiculopathy CAD, history of CABG End-stage renal disease on hemodialysis Chronic nicotine dependence Bipolar History of CVA, TIA Factor V deficiency, anemia Hospital course: This is a 50-year-old female admitted with GI bleed, etiology unclear, and STEMI and multiple other medical issues. Evaluated by nephrology, cardiology, surgery. Completed EGD reporting erosive esophagitis with gastroesophageal disease. Declined prep, unable to proceed with colonoscopy. Patient advised to follow-up with Dr. Dickens for outpatient colonoscopy. Medications further adjusted as per cardiology. Significant clinical improvement. Cleared by all consults for discharge. Patient is being discharged home today in a stable condition with guarded prognosis. The impression and plan of care has been dictated as directed. : I performed a history and examination of this patient, discussed the same with the dictator. I agree with the dictator's note ,documented as a scribe. Any additional findings or plans will be noted. Patient Condition at Discharge: Stable Plan - Discharge Summary Discharge Rx Participant: Yes New Discharge Prescriptions: New Polyethylene Glycol 3350 [Miralax] 17 gm PO DAILY #30 packet hydrALAZINE HCL [Apresoline] 100 mg PO TID #180 tab Aspirin 81 mg PO DAILY chew Isosorbide Mononitrate ER [Imdur] 30 mg PO DAILY #30 tab.er.24h Nitroglycerin Sl Tabs [Nitrostat] 0.4 mg SUBLINGUAL Q5M PRN #100 tab PRN Reason: Chest Pain Continue Metoprolol Succinate (ER) [Toprol XL] 50 mg PO BID Sucralfate [Carafate] 1 gm PO ACHS Furosemide [Lasix] 40 mg PO BID Magnesium Oxide 400 mg PO DAILY Montelukast [Singulair] 10 mg PO HS #30 tab Repaglinide 0.5 mg PO BID-W/MEALS Марина-Twyla 1 tab PO DAILY Metoclopramide [Reglan] 5 mg PO TID-W/MEALS HYDROcodone/APAP 5-325MG [Earling 5-325] 1 tab PO BID PRN PRN Reason: Pain Dicyclomine [Bentyl] 20 mg PO QID PRN #20 tab PRN Reason: Dyspepsia amLODIPine [Norvasc] 5 mg PO BID #60 tab Pantoprazole [Protonix] 40 mg PO AC-BID #60 tablet. Insulin Glargine [Lantus] 20 unit SQ HS #0 Discontinued Carvedilol Phosphate [Carvedilol ER] 40 mg PO HS Levofloxacin [Levaquin] 500 mg PO Q48H #5 tab Lisinopril [Zestril] 10 mg PO BID #60 tab hydrALAZINE HCL [Apresoline] 75 mg PO TID #0 predniSONE See Taper PO DIRECTED Discharge Medication List Furosemide [Lasix] 40 mg PO BID 02/01/20 [History] Magnesium Oxide 400 mg PO DAILY 02/01/20 [History] Metoprolol Succinate (ER) [Toprol XL] 50 mg PO BID 02/01/20 [History] Sucralfate [Carafate] 1 gm PO ACHS 02/01/20 [History] Montelukast [Singulair] 10 mg PO HS #30 tab 02/03/20 [Rx] HYDROcodone/APAP 5-325MG [Earling 5-325] 1 tab PO BID PRN 04/23/20 [History] Metoclopramide [Reglan] 5 mg PO TID-W/MEALS 04/23/20 [History] Марина-Twyla 1 tab PO DAILY 04/23/20 [History] Repaglinide 0.5 mg PO BID-W/MEALS 04/23/20 [History] Dicyclomine [Bentyl] 20 mg PO QID PRN #20 tab 04/30/20 [Rx] Insulin Glargine [Lantus] 20 unit SQ HS #0 04/30/20 [Rx] Pantoprazole [Protonix] 40 mg PO AC-BID #60 tablet.dr 04/30/20 [Rx] amLODIPine [Norvasc] 5 mg PO BID #60 tab 04/30/20 [Rx] Polyethylene Glycol 3350 [Miralax] 17 gm PO DAILY #30 packet 05/10/20 [Rx] Aspirin 81 mg PO DAILY chew 05/11/20 [Rx] Isosorbide Mononitrate ER [Imdur] 30 mg PO DAILY #30 tab.er.24h 05/11/20 [Rx] Nitroglycerin Sl Tabs [Nitrostat] 0.4 mg SUBLINGUAL Q5M PRN #100 tab 05/11/20 [Rx] hydrALAZINE HCL [Apresoline] 100 mg PO TID #180 tab 05/11/20 [Rx] Follow up Appointment(s)/Referral(s): Oliverio Jhaveri MD [STAFF PHYSICIAN] - 06/11/20 10:15 am Pavel Velasquez MD [Primary Care Provider] - 3 Days Payal Redman MD [STAFF PHYSICIAN] - 1 Week [facility], [NON-STAFF] - Jerry Murillo DO [STAFF PHYSICIAN] - 1 Week Ambulatory/Diagnostic Orders: Complete Blood Count w/diff [LAB.AMB] Time Frame: 3 Days, Location: None Selected Patient Instructions/Handouts: Dyspnea (DC), Anemia (DC) Activity/Diet/Wound Care/Special Instructions: No Statin at this time , patient has ALLERGY to, declined alternative. Confirm cardiology follow-up appointment per to discharge. Hemodialysis as per nephrology Discharge Disposition: HOME SELF-CARE
== END 2020-05-11 14:53 | disposition home or self-care (01) | DRG 377 ==
LOC: EC 23:54 → 3SCARD 05-06 03:55 → OBSVTOIN 05-07 11:24
PROVIDERS: ADMIT Family Medicine; ATTEND Family Medicine
PROC: 30243N1 Transfusion of Nonautologous Red Blood Cells into Central Vein, Percutaneous Approach (ICD-10-PCS; 2020-05-07)
PROC: 5A1D70Z Performance of Urinary Filtration, Intermittent, Less than 6 Hours Per Day (ICD-10-PCS; 2020-05-07)
PROC: 0DJ08ZZ Inspection of Upper Intestinal Tract, Via Natural or Artificial Opening Endoscopic (ICD-10-PCS; principal; 2020-05-09 08:00)
DX: K92.2 Gastrointestinal hemorrhage, unspecified (principal); I21.4 Non-ST elevation (NSTEMI) myocardial infarction; I50.33 Acute on chronic diastolic (congestive) heart failure; N18.6 End stage renal disease; D62 Acute posthemorrhagic anemia; D68.2 Hereditary deficiency of other clotting factors; I13.2 Hypertensive heart and chronic kidney disease with heart failure and with stage 5 chronic kidney disease, or end stage renal disease; I45.2 Bifascicular block; E88.89 Other specified metabolic disorders; I27.20 Pulmonary hypertension, unspecified; E11.51 Type 2 diabetes mellitus with diabetic peripheral angiopathy without gangrene; E11.22 Type 2 diabetes mellitus with diabetic chronic kidney disease; E11.65 Type 2 diabetes mellitus with hyperglycemia; F31.9 Bipolar disorder, unspecified; J44.9 Chronic obstructive pulmonary disease, unspecified; E78.5 Hyperlipidemia, unspecified; F17.200 Nicotine dependence, unspecified, uncomplicated; F41.9 Anxiety disorder, unspecified; I08.3 Combined rheumatic disorders of mitral, aortic and tricuspid valves; Z20.828 Contact with and (suspected) exposure to other viral communicable diseases; I25.10 Atherosclerotic heart disease of native coronary artery without angina pectoris; I25.2 Old myocardial infarction; K21.0 Gastro-esophageal reflux disease with esophagitis; K56.41 Fecal impaction; M54.16 Radiculopathy, lumbar region; M89.9 Disorder of bone, unspecified; J30.2 Other seasonal allergic rhinitis; K57.90 Diverticulosis of intestine, part unspecified, without perforation or abscess without bleeding; M79.673 Pain in unspecified foot; Z79.4 Long term (current) use of insulin; Z79.899 Other long term (current) drug therapy; Z79.52 Long term (current) use of systemic steroids; Z88.1 Allergy status to other antibiotic agents; Z99.2 Dependence on renal dialysis; Z95.5 Presence of coronary angioplasty implant and graft; Z95.1 Presence of aortocoronary bypass graft; Z87.01 Personal history of pneumonia (recurrent); Z86.73 Personal history of transient ischemic attack (TIA), and cerebral infarction without residual deficits; Z86.79 Personal history of other diseases of the circulatory system; Z98.51 Tubal ligation status; Z86.010 Personal history of colon polyps; Z91.040 Latex allergy status; Z88.2 Allergy status to sulfonamides; Z88.8 Allergy status to other drugs, medicaments and biological substances; Z91.018 Allergy to other foods; Z82.49 Family history of ischemic heart disease and other diseases of the circulatory system; Z82.5 Family history of asthma and other chronic lower respiratory diseases; Z80.9 Family history of malignant neoplasm, unspecified
CPT/HCPCS: 36415; 43235; 71046; 80053; 80061; 83605; 83880; 84484; 85025; 85610; 85730; 86850; 86900; 86901; 86920; 90935; 93005; 93306; 96374; 99285

== ENCOUNTER 2020-05-21 17:08 | Inpatient (IN) | payer MEDICARE, OTHER ==
[2020-05-21] MEDS ORDERED: FUROSEMIDE 10 MG/ML 4 ML VIAL IV STA (17:22)
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
[2020-05-21 17:47] LABS: Appearance,Urine Clear (Clear); Bilirubin,Urine Negative (Negative); Blood,Urine Negative (Negative); Color,Urine Light Yellow; Glucose,Urine (UA) Negative (Negative); Ketones,Urine 1+ (Negative); Leukocyte Esterase,Urine Negative (Negative); Nitrite,Urine Negative (Negative); Protein,Urine Negative (Negative); Urobilinogen,Urine <2.0 mg/dL (<2.0)
[2020-05-21 17:48] LABS: Specific Gravity,Urine 1.046 (1.001-1.035)
[2020-05-21 17:54] LABS: ALT 90 U/L (4-34); AST 48 U/L (14-36); African American GFR (CKD) 18 (>60 ml/min/1.73 sqM); Albumin 3.7 g/dL (3.5-5.0); Alcohol <10 mg/dL; Alkaline Phosphatase 501 U/L (38-126); Anion Gap 11 mmol/L; Blood Urea Nitrogen 36 mg/dL (7-17); Calcium 9.7 mg/dL (8.4-10.2); Carbon Dioxide 27 mmol/L (22-30); Chloride 96 mmol/L (98-107); Creatine Kinase 126 U/L (30-135); Glucose 205 mg/dL (74-99); Non-African American GFR(CKD) 16 (>60 ml/min/1.73 sqM); Potassium 3.8 mmol/L (3.5-5.1); Sodium 134 mmol/L (137-145); Total Bilirubin 1.2 mg/dL (0.2-1.3); Total Protein 6.7 g/dL (6.3-8.2)
[2020-05-21 17:57] LABS: Anisocytosis Slight; Basophils % (A) 0 %; Eosinophils # (A) 0.1 k/uL (0-0.7); Eosinophils % (A) 2 %; HGB 10.1 gm/dL (11.4-16.0); Lymphocytes # (A) 0.7 k/uL (1.0-4.8); Lymphocytes % (A) 9 %; MCH 29.1 pg (25.0-35.0); MCHC 33.5 g/dL (31.0-37.0); MCV 86.9 fL (80.0-100.0); Mean Platelet Volume 7.5; Monocytes # (A) 0.4 k/uL (0-1.0); Monocytes % (A) 5 %; Neutrophils # (A) 6.4 k/uL (1.3-7.7); Neutrophils % (A) 83 %; Platelet Count 473 k/uL (150-450); RBC 3.45 m/uL (3.80-5.40); RDW 17.9 % (11.5-15.5); WBC 7.7 k/uL (3.8-10.6)
[2020-05-21 17:58] LABS: INR 1.1 (<1.2); Partial Thromboplastin Time 27.6 sec (22.0-30.0); Prothrombin Time 10.9 sec (9.0-12.0)
[2020-05-21 18:02] LABS: Amphetamine Screen,Urine Not Detected (NotDetected); Barbiturate Screen,Urine Not Detected (NotDetected); Benzodiazepines Screen,Urine Not Detected (NotDetected); Cocaine Screen,Urine Not Detected (NotDetected); Methadone Screen, Urine Not Detected (NotDetected); Opiate Screen,Urine Not Detected (NotDetected); Oxycodone Screen, Urine Not Detected (NotDetected); Phencyclidine Screen,Urine Not Detected (NotDetected); Tricyclic Antidepressant,Urine Not Detected (NotDetected); Urn Cannabinoid Scrn Not Detected (NotDetected)
--- NOTE | 2020-05-21 18:11 | CT ---
EXAMINATION TYPE: CT brain wo con DATE OF EXAM: 05/21/2020 COMPARISON: 03/12/2020 HISTORY: Altered mental status. CT DLP: 1231.4 mGycm Automated exposure control for dose reduction was used. There is cerebral cortical atrophy. There is no mass effect nor midline shift. There is no sign of in tracranial hemorrhage. The calvarium is intact. There is no evidence of cerebral edema. There is 5 mm hypodense area in the anterior left internal capsule. There is poorly marginated 2 cm mild hypodensi ty in the left side centrum semiovale. The calvarium appears intact. IMPRESSION: Cerebral atrophy. There is some left side chronic small vessel ischemia unchanged. No acute intracran ial abnormality.
--- NOTE | 2020-05-21 18:33 | XR ---
EXAMINATION TYPE: XR chest 1V portable DATE OF EXAM: 05/21/2020 COMPARISON: 05/06/2020 HISTORY: Difficulty breathing TECHNIQUE: FINDINGS: There is some mild pulmonary interstitial edema. Heart is enlarged. There is left-sided ryan tral venous catheter with tip in the right atrium. There is right side central venous catheter with t ip in the superior vena cava. There are chest leads. There is no pleural effusion. IMPRESSION: There is mild pulmonary interstitial edema unchanged compared to old exam. Stable mild ca rdiomegaly. No pleural fluid seen to suggest heart failure.
[2020-05-21] MEDS ORDERED: HYDROmorphone 1 MG/ML 1 ML SYRINGE IVP STA (21:14)
--- NOTE | 2020-05-21 21:52 | CT ---
EXAMINATION TYPE: CT abdomen pelvis wo con DATE OF EXAM: 05/21/2020 COMPARISON: 04/23/2020 HISTORY: abdominal pain CT DLP: 707.3 mGycm Automated exposure control for dose reduction was used. Images were obtained from the diaphragm to the floor the pelvis with no contrast. Heart is moderately enlarged. There is some mild infiltrate and atelectasis right posterior lung base . There is no pericardial effusion. Liver spleen pancreas appear normal. There is small calcified gal lstones. The bile ducts are not dilated. There is mild abdominal ascites. There is no adrenal mass. Kidneys have normal size. There is no hydronephrosis. Ureters are not dilat ed. There is 3.8 cm aneurysm of the lower abdominal aorta. There are few retroperitoneal enlarged lym ph nodes that measure up to 1.5 cm. Bladder distends smoothly. Uterus is anteverted. I see no pelvic mass. There is no inguinal hernia. There is no evidence of free air. There is no bowel obstruction. Appendix is not definitely seen. The re is no sign of thickened appendix. There is diffuse subcutaneous edema around the abdomen. There are probably 1 mm calculi in both kidne ys. Lumbar vertebra have normal alignment. There is no compression fracture. Posterior elements are i ntact. Bony pelvis appears intact. IMPRESSION: Compared to last exam there is appearance of abdominal ascites and extensive subcutaneous edema aroun d the abdomen. There is enlargement of the abdominal aortic aneurysm. Previous exam measures 3.2 cm a nd now measures 3.8 cm. There is mild retroperitoneal lymphadenopathy. Follow-up recommended. I do no t see definite evidence of leaking aneurysm. Moderate cardiomegaly. Minimal atelectasis at the right lung base. No pleural fluid seen to suggest h eart failure. Cholelithiasis.
[2020-05-21] MEDS ORDERED: NALOXONE 0.4 MG/ML 1 ML VIAL IV PRN (22:40)
[2020-05-21] MEDS ORDERED: DICYCLOMINE 20 MG TAB PO PRN (22:42)
[2020-05-21] MEDS ORDERED: ONDANSETRON 4 MG TAB PO PRN (22:42)
[2020-05-21] MEDS ORDERED: NITROGLYCERIN SL TABS 0.4 MG TAB SUBLINGUAL PRN (22:42)
[2020-05-21] MEDS ORDERED: APIXABAN 2.5 MG TABLET PO SCH (22:45)
[2020-05-21] MEDS ORDERED: hydrALAZINE HCL 20 MG/ML 1 ML VIAL IVP STA (23:19)
[2020-05-22] MEDS: HYDROcodone/APAP 5-325MG 1 EACH TAB PO PRN (02:54)
[2020-05-22] MEDS: hydrALAZINE HCL 20 MG/ML 1 ML VIAL IVP PRN ×2 (05:43→11:46)
[2020-05-22 06:24] LABS: Glucose,Whole Blood 194 mg/dL (75-99)
[2020-05-22] MEDS: PANTOPRAZOLE 40 MG TABLET PO SCH ×2 (07:47→16:17)
[2020-05-22] MEDS: INSULIN ASPART (NovoLOG) 100 UNIT/ML VIAL SQ SCH ×4 (07:49→22:58)
[2020-05-22] MEDS ORDERED: LORazepam 2 MG/ML INJ IV PRN (08:02)
[2020-05-22] MEDS ORDERED: NON FORMULARY DRUG (Rena-Vite 1 TAB) PO SCH (09:00)
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
[2020-05-22 13:53] LABS: Glucose,Whole Blood 114 mg/dL (75-99)
[2020-05-22] MEDS: METOPROLOL SUCCINATE (ER) 50 MG TAB.ER.24H PO SCH ×2 (13:54→22:49)
[2020-05-22] MEDS: hydrALAZINE HCL 50 MG TAB PO SCH ×3 (13:54→22:48)
[2020-05-22] MEDS: amLODIPine 5 MG TAB PO SCH ×2 (13:54→22:48)
[2020-05-22] MEDS: FUROSEMIDE 40 MG TAB PO SCH ×2 (13:54→22:48)
[2020-05-22] MEDS: POLYETHYLENE GLYCOL 3350 17 GM POWD.PACK PO SCH (13:55)
[2020-05-22] MEDS: MAGNESIUM OXIDE 400 MG TAB PO SCH (13:55)
[2020-05-22] MEDS: ASPIRIN 81 MG PO SCH (13:55)
[2020-05-22] MEDS: ISOSORBIDE MONONITRATE ER 30 MG TAB.ER.24H PO SCH (13:55)
[2020-05-22] MEDS: SUCRALFATE 1 GM TAB PO SCH ×4 (13:55→22:49)
[2020-05-22] MEDS: REPAGLINIDE 1 MG TAB PO SCH ×2 (13:55→16:16)
[2020-05-22] MEDS: METOCLOPRAMIDE 5 MG TAB PO SCH ×3 (13:55→16:16)
[2020-05-22 16:33] LABS: Glucose,Whole Blood 152 mg/dL (75-99)
--- NOTE | 2020-05-22 18:51 | CONS ---
CONSULTATION REASON FOR CONSULT: End-stage renal disease. HISTORY OF PRESENT ILLNESS: Patient is a 50-year-old female with end-stage renal disease, on hemodialysis on a Thursday, Thursday, Thursday schedule. Patient has repeated admissions for nausea, vomiting, abdominal discomfort. She was recently admitted for significant volume overload. On this admission, patient had a CT scan which showed there may be some increase in the abdominal aortic aneurysm from 3.2 to 3.8 cm. Blood pressure is elevated, currently decreasing with hemodialysis. PAST MEDICAL HISTORY: End-stage renal disease, hypertension, gastroparesis, type 2 diabetes with neuropathy, history of CVA/TIA, history of DVT, AR, pneumonia, history of peripheral vascular disease with abdominal aortic aneurysm. PAST SURGICAL HISTORY: Coronary artery bypass surgery, coronary stent placement, tubal ligation, PermCath placement for dialysis. SOCIAL HISTORY: Positive for smoking. Patient also has a history of anxiety and bipolar disorder. MEDICATIONS: Medications prior to admission included Zofran, Eliquis, Марина Twyla, Reglan, Keavy, hydralazine, Singulair, Bentyl, insulin, Protonix, Norvasc, MiraLAX, aspirin, Nitrostat, Imdur, Carafate, magnesium, Lasix. PHYSICAL EXAMINATION: Patient is comfortable, awake. She is sleepy but arousable. Blood pressure this morning on dialysis was 186/85; seems to be improving while patient is on treatment. Heart rate 81 per minute. She is afebrile. EXAMINATION OF THE HEART: S1 and S2. EXAMINATION OF LUNGS: Decreased breath sounds at bases. ABDOMEN: Soft, non-tender. Crackles are heard in the bases. Examination of lower extremities shows trace edema. 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 LABS: Sodium 134, potassium 3.8 from yesterday, hemoglobin 10.1 g/dL. ASSESSMENT: 1. End-stage renal disease, on hemodialysis on a Thursday, Thursday, Thursday schedule. 2. Hypertension, uncontrolled, partly volume-sensitive, currently improving with dialysis and fluid removal. 3. Volume overload. We will plan for UF of about 3 L today. 4. Abdominal aortic aneurysm with slight increase in size noted on CT scan obtained, for vascular surgery consult. 5. History of anxiety, bipolar disorder. PLAN: Hemodialysis today. UF about 3 L. Recommend vascular surgery consult. MMODL / IJN: [id number] /
[2020-05-22 20:11] LABS: Glucose,Whole Blood 360 mg/dL (75-99)
--- NOTE | 2020-05-22 22:21 | HP ---
HISTORY AND PHYSICAL This patient is a 50-year-old -[place] female who came into the hospital with altered mental status. She has been better with her moods overnight with increased fluids. She dizziness, very encephalopathic. History of chronic renal disease, diastolic CHF, COPD. CT of the head shows cerebral atrophy. CT of the abdomen and pelvis shows abdominal ascites, extensive subcutaneous edema around the abdomen, enlargement of abdominal aortic aneurysm 3.8 cm, mild retroperitoneal lymphadenopathy. Right bundle branch block. Fourteen-point review of systems negative except as mentioned above. PAST MEDICAL HISTORY: Asthma, blood disorder, COPD, CVA, TIA, diabetes mellitus, DVT, dyslipidemia, hypertension, myocardial infarction, pneumonia, vascular, chronic CHF, insulin- dependent diabetes mellitus. PHYSICAL EXAMINATION: CARDIOVASCULAR: S1, S2. LUNGS: Clear. GI: Soft. HEMATOLOGY: Negative Homans. PSYCH: Fair mood and affect. She appears sleepy and lethargic but is more alert now than when she was admitted. OPHTHALMOLOGIC: Pupils equal, round, reactive. EXTREMITIES: Two plus edema. VITAL SIGNS: Blood pressure was up to 200 systolic over 116; now it is down to 160s to 140s over 80s to 90s. ASSESSMENT: 1. Hypertension acceleration. 2. Encephalopathy, unclear etiology. 3. Abdominal ascites. 4. Chronic obstructive pulmonary disease. 5. Congestive heart failure. 6. Acute tubular necrosis with acute renal insufficiency. 7. End-stage renal disease. 8. Abdominal aortic aneurysm. 9. Toxic metabolic encephalopathy. Please see further orders. MMODL / IJN: [id number] /
[2020-05-22] MEDS: MONTELUKAST 10 MG TAB PO SCH (22:49)
[2020-05-22] MEDS: INSULIN DETEMIR (LEVEMIR) 100 UNIT/ML SYR SQ SCH (22:58)
[2020-05-23] MEDS: HYDROcodone/APAP 5-325MG 1 EACH TAB PO PRN ×3 (01:20→21:59)
[2020-05-23 06:48] LABS: Glucose,Whole Blood 164 mg/dL (75-99)
[2020-05-23 08:20] LABS: Anisocytosis Slight; Basophils % (A) 0 %; Eosinophils # (A) 0.3 k/uL (0-0.7); Eosinophils % (A) 3 %; HCT 29.8 % (34.0-46.0); HGB 9.9 gm/dL (11.4-16.0); Lymphocytes # (A) 1.2 k/uL (1.0-4.8); Lymphocytes % (A) 15 %; MCHC 33.2 g/dL (31.0-37.0); MCV 87.5 fL (80.0-100.0); Mean Platelet Volume 7.2; Monocytes # (A) 0.4 k/uL (0-1.0); Monocytes % (A) 5 %; Neutrophils # (A) 5.8 k/uL (1.3-7.7); Neutrophils % (A) 75 %; Platelet Count 494 k/uL (150-450); RBC 3.41 m/uL (3.80-5.40); RDW 17.8 % (11.5-15.5); WBC 7.8 k/uL (3.8-10.6)
[2020-05-23] MEDS: INSULIN ASPART (NovoLOG) 100 UNIT/ML VIAL SQ SCH ×4 (08:27→21:59)
[2020-05-23] MEDS: REPAGLINIDE 1 MG TAB PO SCH ×2 (08:27→17:08)
[2020-05-23] MEDS: METOCLOPRAMIDE 5 MG TAB PO SCH ×3 (08:28→17:08)
[2020-05-23] MEDS: SUCRALFATE 1 GM TAB PO SCH ×4 (08:28→20:40)
[2020-05-23] MEDS: FUROSEMIDE 40 MG TAB PO SCH ×2 (08:28→20:41)
[2020-05-23] MEDS: POLYETHYLENE GLYCOL 3350 17 GM POWD.PACK PO SCH (08:28)
[2020-05-23] MEDS: MAGNESIUM OXIDE 400 MG TAB PO SCH (08:28)
[2020-05-23] MEDS: METOPROLOL SUCCINATE (ER) 50 MG TAB.ER.24H PO SCH ×2 (08:28→20:40)
[2020-05-23] MEDS: hydrALAZINE HCL 50 MG TAB PO SCH ×3 (08:28→20:41)
[2020-05-23] MEDS: amLODIPine 5 MG TAB PO SCH ×2 (08:28→20:41)
[2020-05-23] MEDS: ISOSORBIDE MONONITRATE ER 30 MG TAB.ER.24H PO SCH (08:28)
[2020-05-23] MEDS: PANTOPRAZOLE 40 MG TABLET PO SCH ×2 (08:29→17:08)
[2020-05-23] MEDS: ASPIRIN 81 MG PO SCH (08:29)
[2020-05-23 08:34] LABS: Calcium 8.8 mg/dL (8.4-10.2)
--- NOTE | 2020-05-23 11:08 | CDI ---
Documentation Clarification Form Date: 05/23/2020 10:57:03 AM From: Lindsey RutherfordKrishnanJOANNE, CCDS Admit Date: 05/21/2020 10:44:00 PM Patient Name: Sharon Singh Visit Number: [id number] Discharge Date: ATTENTION: The Clinical Documentation Specialists (CDI) and [facility] Coding Staff appreciate your assistance in clarifying documentation. Please respond to the clarification below the line at the bottom and electronically sign. The CDI & [facility] Coding staff will review the response and follow-up if needed. Please note: Queries are made part of the Legal Health Record. If you have any questions, please contact the author of this message via ITS. Dr. Pavel Velasquez: The patient presented with the following: Weakness, Dizziness, Altered mental status, Renal Failure, Hyperglycemia & Ascites. Per the History & Physical on 05/22: "Hypertensive Acceleration" is documented without further specificity. History/Risk Factors: Hypertensive Heart disease with CHF & ESRD on Hemodialysis, DM II, COPD, CVA, DVT, Lupus, Arteriosclerotic Peripheral Vascular Disease, CABG, Heart Catheterization with stent, Smoker. Clinical Indicators: Presented to the ED via EMS on 05/21 with altered mental status & abdominal pain. Found to have elevated BP: 220/100s. Lab findings 05/21: Hgb 10.1*, Pl Ct 473^; Na 134*, BUN 36^, Cr 3.25^, Glucose 205^, AST 48^, ALT 90^, Alk Phos 501^. UA 05/21: sp gr 1.046^, 1+ ketones. Alcohol <10, Acetone Negative COVID-19 Negative Radiology findings 05/21: Ct Head: Atrophy. CXR: Mild pulmonary interstitial edema, Mild cardiomegaly. CT Abd/Pelvis: Ascites & enlarging AAA Treatment: IV Lasix, I Dilaudid, IV Apresoline. HD scheduled. In your professional opinion, can you please clarify the type of Hypertension? Hypertensive Emergency Hypertensive Urgency Other Hypertension Other, please specify Unable to determine (Last Revision: February 2018) MTDD
[2020-05-23 11:41] LABS: Glucose,Whole Blood 221 mg/dL (75-99)
--- NOTE | 2020-05-23 12:16 | P.PN ---
Subjective Progress Note Date: 05/23/20 Patient was seen for a follow-up. Patient is getting hemodialysis now. Patient is much more mentally clear as compared to yesterday. Patient denies headache. Complains of generalized weakness. Denies any visual issues. She does have numbness in the feet, probably related to neuropathy. Patient does have diabetes and dialysis patient. Objective - Vital Signs Vital signs: Vital Signs Temp 98.1 F 05/23/20 07:28 Pulse 83 05/23/20 07:28 Resp 18 05/23/20 07:28 BP 177/72 05/23/20 07:28 Pulse Ox 92 L 05/23/20 07:28 Intake & Output 05/22/20 05/23/20 05/23/20 18:59 06:59 18:59 Intake Total 560 Output Total 700 300 Balance -140 -300 Weight 89.222 kg Intake: Oral 560 Output: Urine 700 300 Straight 700 Other: Voiding Method Bedside Commode # Voids 2 - Exam Patient is alert and awake fully oriented speech and language functions are normal. Patient knows it is 05/23/2020 and that she is in [facility] and the president. Muscle strength is normal in the arms and legs. No ataxia. Tone and bulk of muscles normal. Gait deferred. Patient is getting hemodialysis now. - Labs CBC & Chem 7: 05/23/20 07:59 05/23/20 07:59 Labs: Abnormal Lab Results - Last 24 Hours (Table) 05/22/20 05/22/20 05/22/20 Range/Units 13:52 16:29 20:11 RBC (3.80-5.40) m/uL Hgb (11.4-16.0) gm/dL Hct (34.0-46.0) % RDW (11.5-15.5) % Plt Count (150-450) k/uL BUN (7-17) mg/dL Creatinine (0.52-1.04) mg/dL Glucose (74-99) mg/dL POC Glucose (mg/dL) 114 H 152 H 360 H (75-99) mg/dL 05/23/20 05/23/20 05/23/20 Range/Units 06:46 07:59 07:59 RBC 3.41 L (3.80-5.40) m/uL Hgb 9.9 L (11.4-16.0) gm/dL Hct 29.8 L (34.0-46.0) % RDW 17.8 H (11.5-15.5) % Plt Count 494 H (150-450) k/uL BUN 27 H (7-17) mg/dL Creatinine 2.85 H (0.52-1.04) mg/dL Glucose 134 H (74-99) mg/dL POC Glucose (mg/dL) 164 H (75-99) mg/dL 05/23/20 Range/Units 11:41 RBC (3.80-5.40) m/uL Hgb (11.4-16.0) gm/dL Hct (34.0-46.0) % RDW (11.5-15.5) % Plt Count (150-450) k/uL BUN (7-17) mg/dL Creatinine (0.52-1.04) mg/dL Glucose (74-99) mg/dL POC Glucose (mg/dL) 221 H (75-99) mg/dL Assessment and Plan Assessment: * Altered mental status, likely related to toxic metabolic encephalopathy. Patient clinically much better today. * Chronic renal failure on hemodialysis. * Diabetes, not well controlled. * Abdominal pain, computed tomography scan showing ascites. * Abdominal aortic aneurysm 3.8 cm, getting worse as compared to the last imaging. * Mildly elevated LFTs. Plan: * Patient's altered mental status is likely related to toxic metabolic encephalopathy. Her mentation is much improved. Patient is getting hemodialysis. * Treatment of underlying medical conditions as per internal medicine. * Patient does have some neuropathy in the feet, likely related to diabetes. We will check B12, folate. * Neurology will sign off. * Please call neurology if any further concerns.
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
--- NOTE | 2020-05-23 14:13 | PN ---
PROGRESS NOTE Patient is seen for followup for end-stage renal disease. She is currently seen on hemodialysis, tolerating her treatment well. On examination, blood pressure is 177/72, heart rate 83 per minute. She is afebrile. Examination of the heart S1, S2. Examination of the lungs, decreased breath sounds at bases. Abdomen is soft, nontender. Examination of lower extremities shows trace edema. STOCK CHASER exam grossly intact. Labs show sodium 137, potassium 4.0, chloride 104, BUN 27, creatinine 2.85, hemoglobin 9.9 g/dL. ASSESSMENT: 1. End-stage renal disease, on hemodialysis on a Thursday, Thursday, Thursday schedule. 2. Hypertension, partly volume sensitive. I will add Cozaar and patient may need Xanax prior to her treatments as outpatient secondary to anxiety. 3. Volume overload improved. I will increase the UF to about 4 L today with hemodialysis. 4. Anemia of chronic disease. PLAN: Add Cozaar. Increase UF to about 4 L with dialysis. Next dialysis will be on 05/25/2020. MMODL / IJN: [id number] /
[2020-05-23 15:14] VITALS: BMI 30.8
[2020-05-23 16:58] LABS: Glucose,Whole Blood 133 mg/dL (75-99)
[2020-05-23] MEDS: MONTELUKAST 10 MG TAB PO SCH (20:41)
[2020-05-23 21:36] LABS: Folate, Serum 21.3 ng/mL
[2020-05-23 21:52] LABS: Glucose,Whole Blood 259 mg/dL (75-99)
[2020-05-23] MEDS: INSULIN DETEMIR (LEVEMIR) 100 UNIT/ML SYR SQ SCH (21:58)
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
[2020-05-24 07:01] LABS: Glucose,Whole Blood 130 mg/dL (75-99)
[2020-05-24] MEDS: hydrALAZINE HCL 50 MG TAB PO SCH ×3 (08:15→21:39)
[2020-05-24] MEDS: METOPROLOL SUCCINATE (ER) 50 MG TAB.ER.24H PO SCH ×2 (08:15→21:40)
[2020-05-24] MEDS: FUROSEMIDE 40 MG TAB PO SCH ×2 (08:15→21:40)
[2020-05-24] MEDS: MAGNESIUM OXIDE 400 MG TAB PO SCH (08:15)
[2020-05-24] MEDS: ASPIRIN 81 MG PO SCH (08:15)
[2020-05-24] MEDS: ISOSORBIDE MONONITRATE ER 30 MG TAB.ER.24H PO SCH (08:15)
[2020-05-24] MEDS: amLODIPine 5 MG TAB PO SCH ×2 (08:16→21:40)
[2020-05-24] MEDS: METOCLOPRAMIDE 5 MG TAB PO SCH ×3 (08:16→17:16)
[2020-05-24] MEDS: PANTOPRAZOLE 40 MG TABLET PO SCH ×2 (08:16→17:15)
[2020-05-24] MEDS: INSULIN ASPART (NovoLOG) 100 UNIT/ML VIAL SQ SCH ×4 (08:17→21:40)
[2020-05-24] MEDS: POLYETHYLENE GLYCOL 3350 17 GM POWD.PACK PO SCH (08:19)
[2020-05-24] MEDS: LOSARTAN 50 MG TAB PO SCH (08:32)
[2020-05-24] MEDS: SUCRALFATE 1 GM TAB PO SCH ×4 (08:32→21:41)
[2020-05-24] MEDS: REPAGLINIDE 1 MG TAB PO SCH ×2 (08:32→17:16)
[2020-05-24] MEDS: HYDROcodone/APAP 5-325MG 1 EACH TAB PO PRN ×2 (10:16→21:40)
--- NOTE | 2020-05-24 11:05 | P.DS ---
Providers Date of admission: 05/21/20 22:44 Expected date of discharge: 05/24/20 Attending physician: Pavel Velasquez Consults: 05/21/20 22:41 Consult Physician Routine Consulting Provider: Keila Downs Consult Reason/Comments: Dialysis Do you want consulting provider notified?: Yes, Notify in am 05/21/20 22:42 Consult Physician Routine Consulting Provider: Viviana Mota Consult Reason/Comments: Altered mental status without acute CT abnormalities Do you want consulting provider notified?: Yes, Notify in am 05/22/20 08:25 Consult Physician Routine Consulting Provider: Eugene Stevens Consult Reason/Comments: chf Do you want consulting provider notified?: Yes 05/23/20 12:46 Consult Physician Routine Consulting Provider: Rah Nolen Consult Reason/Comments: abd pain Do you want consulting provider notified?: Yes Primary care physician: [facility] Course: Final diagnoses: Accelerated hypertension Acute metabolic, toxic encephalopathy, multifactorial Abdominal pain, Abdominal ascites Gastroesophageal reflux disease Abdominal aortic aneurysm 3.8 cm Chronic diastolic heart failure, EF 55-60% End-stage renal disease on hemodialysis CAD,hx of NSTEMI, CABG DM hyperlipidemia, intolerant to statins and Zetia, declining alternatives History of Abdominal aortic aneurysm, infrarenal, measuring 4.2 cm COPD, stable Bilateral patent common iliac artery stents with moderate stenosis within external iliac arteries History of Bilateral hilar soft tissue prominence measuring up to 1.4 cm, increasing retroperitoneal, periaortic nodularity 1.2 cm ,suggestive of lymphadenopathy possibly reactive, possibly granulomatous disease, possible sarcoidosis, systemic fungal or mycobacterial infection, lymphoma and connective tissue disorder. Close monitoring /follow-up OP Lumbar radiculopathy Chronic nicotine dependence Bipolar History of CVA, TIA Factor V deficiency, anemia Hospital course: This is a 50-year-old female admitted with multiple medical issues. Evaluated/treated by GI, neurology, cardiology, nephrology. Cleared by all consults for discharge. Patient will be discharged home in a stable condition with guarded prognosis. Please refer to H&P and consult notes for specific details. The impression and plan of care has been dictated as directed. : I performed a history and examination of this patient, discussed the same with the dictator. I agree with the dictator's note ,documented as a scribe. Any additional findings or plans will be noted. Patient Condition at Discharge: Stable Plan - Discharge Summary Discharge Rx Participant: No New Discharge Prescriptions: New Losartan [Cozaar] 50 mg PO DAILY #30 tab Continue Metoprolol Succinate (ER) [Toprol XL] 50 mg PO BID Sucralfate [Carafate] 1 gm PO ACHS Furosemide [Lasix] 40 mg PO BID Magnesium Oxide 400 mg PO DAILY Montelukast [Singulair] 10 mg PO HS #30 tab Repaglinide 0.5 mg PO BID-W/MEALS Марина-Twyla 1 tab PO DAILY Metoclopramide [Reglan] 5 mg PO TID-W/MEALS HYDROcodone/APAP 5-325MG [[place] 5-325] 1 tab PO BID PRN PRN Reason: Pain Dicyclomine [Bentyl] 20 mg PO QID PRN #20 tab PRN Reason: Dyspepsia amLODIPine [Norvasc] 5 mg PO BID #60 tab Pantoprazole [Protonix] 40 mg PO AC-BID #60 tablet. Insulin Glargine [Lantus] 20 unit SQ HS #0 Polyethylene Glycol 3350 [Miralax] 17 gm PO DAILY #30 packet Aspirin 81 mg PO DAILY chew Isosorbide Mononitrate ER [Imdur] 30 mg PO DAILY #30 tab.er.24h Nitroglycerin Sl Tabs [Nitrostat] 0.4 mg SUBLINGUAL Q5M PRN #100 tab PRN Reason: Chest Pain Ondansetron [Zofran] 4 mg PO Q8HR PRN PRN Reason: Nausea hydrALAZINE HCL [Apresoline] 100 mg PO TID Discharge Medication List Furosemide [Lasix] 40 mg PO BID 02/01/20 [History] Magnesium Oxide 400 mg PO DAILY 02/01/20 [History] Metoprolol Succinate (ER) [Toprol XL] 50 mg PO BID 02/01/20 [History] Sucralfate [Carafate] 1 gm PO ACHS 02/01/20 [History] Montelukast [Singulair] 10 mg PO HS #30 tab 02/03/20 [Rx] HYDROcodone/APAP 5-325MG [[place] 5-325] 1 tab PO BID PRN 04/23/20 [History] Metoclopramide [Reglan] 5 mg PO TID-W/MEALS 04/23/20 [History] Марина-Twyla 1 tab PO DAILY 04/23/20 [History] Repaglinide 0.5 mg PO BID-W/MEALS 04/23/20 [History] Dicyclomine [Bentyl] 20 mg PO QID PRN #20 tab 04/30/20 [Rx] Insulin Glargine [Lantus] 20 unit SQ HS #0 04/30/20 [Rx] Pantoprazole [Protonix] 40 mg PO AC-BID #60 tablet.dr 04/30/20 [Rx] amLODIPine [Norvasc] 5 mg PO BID #60 tab 04/30/20 [Rx] Polyethylene Glycol 3350 [Miralax] 17 gm PO DAILY #30 packet 05/10/20 [Rx] Aspirin 81 mg PO DAILY chew 05/11/20 [Rx] Isosorbide Mononitrate ER [Imdur] 30 mg PO DAILY #30 tab.er.24h 05/11/20 [Rx] Nitroglycerin Sl Tabs [Nitrostat] 0.4 mg SUBLINGUAL Q5M PRN #100 tab 05/11/20 [Rx] Ondansetron [Zofran] 4 mg PO Q8HR PRN 05/21/20 [History] hydrALAZINE HCL [Apresoline] 100 mg PO TID 05/21/20 [History] Losartan [Cozaar] 50 mg PO DAILY #30 tab 05/24/20 [Rx] Follow up Appointment(s)/Referral(s): [facility], [NON-STAFF] - As Needed Pavel Velasquez MD [Primary Care Provider] - 3 Days Oliverio Jhaveri MD [STAFF PHYSICIAN] - 2 Weeks Keila Downs MD [STAFF PHYSICIAN] - 1 Week Activity/Diet/Wound Care/Special Instructions: Pending clearance from nephrology. Hemodialysis as per nephrology
[2020-05-24 11:18] LABS: Glucose,Whole Blood 221 mg/dL (75-99)
--- NOTE | 2020-05-24 11:56 | PN ---
PROGRESS NOTE DATE OF SERVICE: 05/23/2020 A 50-year-old white female with abdominal pain. She is going to have a GI consultation today on 05/23/2020 due to significant abdominal pain prior to her coming to the hospital for 2 days and significant nausea, vomiting. She had fluid overload. She has been missing dialysis. Prognosis guarded. Her metabolic encephalopathy is improving with her mental status. Vital signs stable. GI is soft. Hematology negative Homans. Psych fair mood and affect. ASSESSMENT: 1. Abdominal plain, unclear etiology. 2. End-stage renal disease. 3. Fluid overload due to missing dialysis. 4. Hypertension. 5. Chronic obstructive pulmonary disease. 6. Diastolic heart failure. Get dialysis today. Get GI consult. MMODL / IJN: [id number] /
--- NOTE | 2020-05-24 12:20 | PN ---
PROGRESS NOTE Patient is seen for followup for end-stage renal disease. She has had hemodialysis 2 days in a row mainly for fluid overload. Her volume status has improved. Blood pressure is also improved. On examination today, blood pressure was 168/70, heart rate 84 per minute, she is afebrile. Examination of the heart S1, S2. Examination of the lungs: Decreased breath sounds at bases. Abdomen is soft. Examination lower extremities shows no evidence of edema. [employer] exam grossly intact. Labs show hemoglobin 9.97 on 05/23/2020. Sodium 137, potassium 4.0. ASSESSMENT: 1. End-stage renal disease, on hemodialysis on a Thursday, Thursday, Thursday schedule. 2. Volume overload currently improved. 3. Hypertension uncontrolled partly secondary to volume overload, now improved. Cozaar was also added yesterday. 4. Chronic kidney disease mineral bone disorder. PLAN: Hemodialysis in a.m. with goal UF 3-4 L as tolerated. MMODL / IJN: [id number] /
[2020-05-24 16:44] LABS: Glucose,Whole Blood 172 mg/dL (75-99)
--- NOTE | 2020-05-24 18:56 | P.PN ---
Subjective Progress Note Date: 05/24/20 Patient was seen for a follow-up. Patient is much more mentally clear as compared to yesterday. Patient denies headache. States not feeling very well. Complains of feet hurting. Patient has seen Dr. Velázquez for vascular surgery. She also says seen a neurologist. Denies any visual issues. Patient does have diabetes and dialysis patient. Objective - Vital Signs Vital signs: Vital Signs Temp 99.0 F 05/24/20 15:00 Pulse 80 05/24/20 15:00 Resp 16 05/24/20 15:00 BP 162/68 05/24/20 15:00 Pulse Ox 96 05/24/20 15:00 Intake & Output 05/23/20 05/24/20 05/24/20 18:59 06:59 18:59 Intake Total 540 Output Total 4000 Balance -4000 540 Weight 89.222 kg Intake: Oral 540 Output: Hemodialysis 4000 Other: Voiding Method Bedside Commode # Voids 1 1 1 - Exam Patient is alert and awake fully oriented speech and language functions are normal. Patient knows it is 05/24/2020 and that she is in [facility] and the president. Muscle strength is normal in the arms and legs. No ataxia. Tone and bulk of muscles normal. Gait deferred. - Labs CBC & Chem 7: 05/23/20 07:59 05/23/20 07:59 Labs: Abnormal Lab Results - Last 24 Hours (Table) 05/23/20 05/23/20 05/24/20 Range/Units 07:59 21:50 06:59 POC Glucose (mg/dL) 259 H 130 H (75-99) mg/dL Vitamin B12 2048.0 H (200.0-944.0) pg/mL 05/24/20 05/24/20 Range/Units 11:17 16:44 POC Glucose (mg/dL) 221 H 172 H (75-99) mg/dL Vitamin B12 (200.0-944.0) pg/mL Assessment and Plan Assessment: * Altered mental status, likely related to toxic metabolic encephalopathy. Patient clinically much better today. * Chronic renal failure on hemodialysis. * Diabetes, not well controlled. * Abdominal pain, computed tomography scan showing ascites. * Abdominal aortic aneurysm 3.8 cm, getting worse as compared to the last imaging. * Mildly elevated LFTs. * Painful feet, likely related to peripheral neuropathy. This could be related to diabetes or related to renal failure. Plan: * Toxic metabolic encephalopathy, resolved. Her mentation is much improved. * Treatment of underlying medical conditions as per internal medicine. * Patient does have some neuropathy in the feet, likely related to diabetes. B12 normal 2047, folic acid 21.3 normal. TSH normal 0.961. Patient need to follow up with neurologist as outpatient. * Neurology will sign off. * Please call neurology if any further concerns.
[2020-05-24 20:34] LABS: Glucose,Whole Blood 177 mg/dL (75-99)
[2020-05-24] MEDS: INSULIN DETEMIR (LEVEMIR) 100 UNIT/ML SYR SQ SCH (21:40)
[2020-05-24] MEDS: MONTELUKAST 10 MG TAB PO SCH (21:40)
[2020-05-25 07:14] LABS: Glucose,Whole Blood 99 mg/dL (75-99)
[2020-05-25] MEDS: INSULIN ASPART (NovoLOG) 100 UNIT/ML VIAL SQ SCH ×2 (09:09→11:48)
[2020-05-25] MEDS: METOPROLOL SUCCINATE (ER) 50 MG TAB.ER.24H PO SCH (09:09)
[2020-05-25] MEDS: METOCLOPRAMIDE 5 MG TAB PO SCH ×2 (09:09→13:03)
[2020-05-25] MEDS: ASPIRIN 81 MG PO SCH (09:10)
[2020-05-25] MEDS: SUCRALFATE 1 GM TAB PO SCH ×2 (09:10→13:03)
[2020-05-25] MEDS: REPAGLINIDE 1 MG TAB PO SCH (09:10)
[2020-05-25] MEDS: FUROSEMIDE 40 MG TAB PO SCH (09:10)
[2020-05-25] MEDS: MAGNESIUM OXIDE 400 MG TAB PO SCH (09:10)
[2020-05-25] MEDS: PANTOPRAZOLE 40 MG TABLET PO SCH (09:10)
[2020-05-25] MEDS: POLYETHYLENE GLYCOL 3350 17 GM POWD.PACK PO SCH (09:11)
[2020-05-25] MEDS: hydrALAZINE HCL 50 MG TAB PO SCH (09:15)
[2020-05-25] MEDS: amLODIPine 5 MG TAB PO SCH (09:15)
[2020-05-25] MEDS: LOSARTAN 50 MG TAB PO SCH (09:16)
[2020-05-25] MEDS: ISOSORBIDE MONONITRATE ER 30 MG TAB.ER.24H PO SCH (09:16)
--- NOTE | 2020-05-25 09:37 | P.PN ---
Subjective Progress Note Date: 05/25/20 Principal diagnosis: This is a 50-year-old patient with new onset ESRD since January 2020 who came in because of change in mental status. Workup showed no significant identifiable c ause. Neurology has seen her. She is back to normal self. Denies any fever chills cough nausea vomiting headache dizziness confusion. She is able to usually walk on her own but slow. She is currently on dialysis at the time of this exam She has a permacath. Additionally she has a 3.8 cm aortic abdominal aneurysm. She does have some abnormal discomfort in the left upper quadrant. Vital signs are stable. Objective - Vital Signs Vital signs: Vital Signs Temp 98.5 F 05/25/20 07:00 Pulse 84 05/25/20 07:00 Resp 18 05/25/20 07:00 BP 169/72 05/25/20 07:00 Pulse Ox 96 05/25/20 07:00 Intake & Output 05/24/20 05/25/20 05/25/20 18:59 06:59 18:59 Intake Total 540 Balance 540 Intake: Oral 540 Other: Voiding Method Bedside Commode # Voids 1 Examination awake alert oriented comfortable HEENT exam no JVP neck is supple no facial asymmetry Lungs are clear to auscultation good air entry bilaterally Heart sounds are unremarkable Abdomen soft nontender except in the left upper quadrant mildly so no masses felt Extremity exam reveals no edema Neurologically awake alert oriented no focal motor deficit - Labs CBC & Chem 7: 05/23/20 07:59 05/23/20 07:59 Labs: Abnormal Lab Results - Last 24 Hours (Table) 05/24/20 05/24/20 05/24/20 Range/Units 11:17 16:44 20:32 POC Glucose (mg/dL) 221 H 172 H 177 H (75-99) mg/dL Assessment and Plan Assessment: Impression 1. ESRD on dialysis via a permacath Thursday 2. Admitted with mental status changes resolved cause not very clear 3. Blood sugars are well-controlled 4. Vital signs are stable 5. Abdominal aortic aneurysm 3.8 cm with some abdominal pain computed tomography scan done no leakage identified Recommendation 1. Maintain dialysis schedule, maintain her hemoglobin calcium phosphorus albumin. Maintain blood pressure control
[2020-05-25] MEDS: HYDROcodone/APAP 5-325MG 1 EACH TAB PO PRN (09:41)
[2020-05-25 11:20] LABS: Glucose,Whole Blood 160 mg/dL (75-99)
[2020-05-25 15:36] VITALS: BP 164/72; PULSE 80; RESP 19; TEMP 97.8
--- NOTE | 2020-05-28 10:07 | CDI ---
Documentation Clarification Form Date: 05/23/2020 10:57:00 AM From: Lindsey RutherfordKrishnanJOANNE, CCDS Admit Date: 05/21/2020 10:44:00 PM Patient Name: Sharon Singh Visit Number: [id number] Discharge Date: 05/25/2020 04:45:00 PM ATTENTION: The Clinical Documentation Specialists (CDI) and [facility] Coding Staff appreciate your assistance in clarifying documentation. Please respond to the clarification below the line at the bottom and electronically sign. The CDI & [facility] Coding staff will review the response and follow-up if needed. Please note: Queries are made part of the Legal Health Record. If you have any questions, please contact the author of this message via ITS. Dr. Pavel Velasquez: The patient presented with the following: Weakness, Dizziness, Altered mental status, Renal Failure, Hyperglycemia & Ascites. Per the History & Physical on 05/22: "Hypertensive Acceleration" is documented without further specificity. History/Risk Factors: Hypertensive Heart disease with CHF & ESRD on Hemodialysis, DM II, COPD, CVA, DVT, Lupus, Arteriosclerotic Peripheral Vascular Disease, CABG, Heart Catheterization with stent, Smoker. Clinical Indicators: Presented to the ED via EMS on 05/21 with altered mental status & abdominal pain. Found to have elevated BP: 220/100s. Lab findings 05/21: Hgb 10.1*, Pl Ct 473^; Na 134*, BUN 36^, Cr 3.25^, Glucose 205^, AST 48^, ALT 90^, Alk Phos 501^. UA 05/21: sp gr 1.046^, 1+ ketones. Alcohol <10, Acetone Negative COVID-19 Negative Radiology findings 05/21: Ct Head: Atrophy. CXR: Mild pulmonary interstitial edema, Mild cardiomegaly. CT Abd/Pelvis: Ascites & enlarging AAA Treatment: IV Lasix, I Dilaudid, IV Apresoline. HD scheduled. In your professional opinion, can you please clarify the type of Hypertension: Hypertensive Emergency Hypertensive Urgency Other Hypertension Other, please specify Unable to determine (Last Revision: February 2018) MTDD
--- NOTE | 2020-05-31 00:32 | DS ---
DISCHARGE SUMMARY Please add discharge summary: Hypertensive urgency. MMODL / IJN: [id number] /
== END 2020-05-25 16:45 | disposition home health service (06) | DRG 91 ==
LOC: EC 17:08 → 4SSUR 22:44
PROVIDERS: ADMIT Family Medicine; ATTEND Family Medicine
PROC: 5A1D70Z Performance of Urinary Filtration, Intermittent, Less than 6 Hours Per Day (ICD-10-PCS; principal; 2020-05-23)
DX: G92 Toxic encephalopathy (principal); N17.0 Acute kidney failure with tubular necrosis; N18.6 End stage renal disease; D68.51 Activated protein C resistance; R18.8 Other ascites; I50.32 Chronic diastolic (congestive) heart failure; I45.2 Bifascicular block; I13.2 Hypertensive heart and chronic kidney disease with heart failure and with stage 5 chronic kidney disease, or end stage renal disease; Z11.59 Encounter for screening for other viral diseases; I27.29 Other secondary pulmonary hypertension; E87.79 Other fluid overload; D63.1 Anemia in chronic kidney disease; E83.9 Disorder of mineral metabolism, unspecified; E11.42 Type 2 diabetes mellitus with diabetic polyneuropathy; E11.22 Type 2 diabetes mellitus with diabetic chronic kidney disease; E11.43 Type 2 diabetes mellitus with diabetic autonomic (poly)neuropathy; M32.9 Systemic lupus erythematosus, unspecified; Z99.2 Dependence on renal dialysis; G31.9 Degenerative disease of nervous system, unspecified; J44.9 Chronic obstructive pulmonary disease, unspecified; Z79.4 Long term (current) use of insulin; F31.9 Bipolar disorder, unspecified; E11.65 Type 2 diabetes mellitus with hyperglycemia; I71.4 Abdominal aortic aneurysm, without rupture; E78.5 Hyperlipidemia, unspecified; I16.0 Hypertensive urgency; K31.84 Gastroparesis; F41.9 Anxiety disorder, unspecified; F17.210 Nicotine dependence, cigarettes, uncomplicated; R40.2362 Coma scale, best motor response, obeys commands, at arrival to emergency department; R40.2142 Coma scale, eyes open, spontaneous, at arrival to emergency department; R40.2242 Coma scale, best verbal response, confused conversation, at arrival to emergency department; R59.0 Localized enlarged lymph nodes; K59.00 Constipation, unspecified; I08.3 Combined rheumatic disorders of mitral, aortic and tricuspid valves; K21.0 Gastro-esophageal reflux disease with esophagitis; M54.16 Radiculopathy, lumbar region; I25.10 Atherosclerotic heart disease of native coronary artery without angina pectoris; I70.8 Atherosclerosis of other arteries; I25.2 Old myocardial infarction; Z71.3 Dietary counseling and surveillance; Z87.01 Personal history of pneumonia (recurrent); Z79.01 Long term (current) use of anticoagulants; Z79.899 Other long term (current) drug therapy; Z79.82 Long term (current) use of aspirin; Z87.19 Personal history of other diseases of the digestive system; Z86.73 Personal history of transient ischemic attack (TIA), and cerebral infarction without residual deficits; Z86.718 Personal history of other venous thrombosis and embolism; Z95.1 Presence of aortocoronary bypass graft; Z95.5 Presence of coronary angioplasty implant and graft; Z98.51 Tubal ligation status; Z95.828 Presence of other vascular implants and grafts; Z88.1 Allergy status to other antibiotic agents; Z91.040 Latex allergy status; Z88.2 Allergy status to sulfonamides; Z88.8 Allergy status to other drugs, medicaments and biological substances; Z91.018 Allergy to other foods; Z82.5 Family history of asthma and other chronic lower respiratory diseases; Z82.49 Family history of ischemic heart disease and other diseases of the circulatory system; Z80.9 Family history of malignant neoplasm, unspecified
CPT/HCPCS: 36415; 51701; 70450; 71045; 74176; 80048; 80053; 80306; 80320; 81003; 82009; 82140; 82550; 82607; 82746; 83516; 83735; 84080; 84484; 85025; 85610; 85730; 86038; 90935; 93005; 96374; 96375; 96376; 99285

== ENCOUNTER 2020-06-05 09:05 | Day surgery (SDC) | payer MEDICARE, OTHER ==
[2020-06-04 09:49] VITALS: BMI 29.9
[~2020-06-05 09:05] MED LIST: CLINDAMYCIN 900 MG in DEXTROSE 5% IN WATER 50 ML IVPB ONE; DEXAMETHASONE SOD PHOSPHATE 10 MG/ML 1 ML VIAL IV ONE; HYDROmorphone 0.5 MG/0.5 ML SYRINGE IVP PRN; LACTATED RINGERS 1,000 ML IV SCH; MIDAZOLAM 2 MG/2 ML VIAL IV PRN; ONDANSETRON 4 MG/2 ML VIAL IVP ONE; SCOPOLAMINE 1.5MG/72HR PATCH TRANSDERM ONE
[2020-06-05] MEDS ORDERED: ONDANSETRON 4 MG/2 ML VIAL ONE (09:27)
[2020-06-05 09:41] LABS: Glucose,Whole Blood 258 mg/dL (75-99)
[2020-06-05] MEDS ORDERED: INSULIN ASPART (NovoLOG) 100 UNIT/ML VIAL SQ ONE ×2 (10:27→14:06)
[2020-06-05] MEDS ORDERED: fentaNYL (PF) 50 MCG/ML 2 ML AMP IV ONE (10:35)
[2020-06-05] MEDS ORDERED: MIDAZOLAM 2 MG/2 ML VIAL IV ONE (10:35)
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
[2020-06-05] MEDS ORDERED: ROPIVACAINE 5 MG/ML 30 ML VIAL ONE (10:57)
[2020-06-05] MEDS ORDERED: LIDOCAINE 2%-EPI 1:100,000 20 ML VIAL ONE (10:57)
[2020-06-05] MEDS ORDERED: HEPARIN SODIUM,PORCINE 5,000 UNIT/ML 1 ML VIAL ONE (10:57)
[2020-06-05] MEDS ORDERED: MIDAZOLAM 2 MG/2 ML VIAL ONE (10:57)
[2020-06-05] MEDS ORDERED: PROPOFOL 10 MG/ML 20 ML VIAL IV ONE (10:57)
[2020-06-05] MEDS ORDERED: LIDOCAINE 1% INJ 10MG/ML (20 ML MDV) SQ ONE (11:33)
--- NOTE | 2020-06-05 11:56 | P.ANPRN ---
Procedure Note - Anesthesia - Nerve Block Performed Left Supraclavicular Single Time Out Performed: Yes (1034) Date of Procedure: 06/05/20 Procedure Start Time: 10:35 Procedure Stop Time: 10:41 Location of Patient: PreOp Indication: Acute Post-Operative Pain, Requested by Surgeon Specifically requested for management of pain by DrKarman: Gisela Velázquez Sedation Type: Sedate with meaningful contact maintained Preparation: Sterile Prep Position: Supine Catheter: None Needle Types: Pajunk Needle Gauge: 21 Ultrasound used to visualize needle placement: Yes Ultrasound used to observe medication spread: Yes Injectate: Other (see comment) (Lido 2% with epi 15cc and Ropi 0.5% 15cc) Blood Aspirated: No Pain Paresthesia on Injection Noted: No Resistance on Injection: Normal Image Stored and Saved: Yes Events: Uneventful and Well Tolerated
[2020-06-05] MEDS ORDERED: THROMBIN (BOVINE) 5,000 UNIT VIAL TOPICAL ONE (12:51)
[2020-06-05] MEDS ORDERED: GELATIN SPONGE,ABSORB (LARGE) 1 EACH SPONGE TOPICAL ONE (12:52)
[2020-06-05] MEDS ORDERED: LACTATED RINGERS 1,000 ML IV ONE (13:16)
[2020-06-05 13:31] VITALS: TEMP 97.2
[2020-06-05 14:12] LABS: Glucose,Whole Blood 256 mg/dL (75-99)
[2020-06-05 14:39] VITALS: BP 138/78; PULSE 67; RESP 18
[2020-06-05 14:40] LABS: Glucose,Whole Blood 264 mg/dL (75-99)
--- NOTE | 2020-06-08 14:10 | P.OP ---
Date of Procedure: 06/05/20 Description of Procedure: Preoperative diagnosis: [End-stage renal disease, dialysis via tunnel catheter] Postoperative diagnosis: Same Procedure: [Left upper extremity brachial basilic AV fistula creation] Surgeon: Gisela Velázquez D.O. Anesthesia: Mac with regional block EBL: [<20 mL] IV fluids: [See anesthesia records] Urine output: [None] Drains: [None] Complications: [None immediately apparent] Condition: [Stable to PACU] Operative indication and findings: [The patient is a 50-year-old female cur rently receiving dialysis via a tunneled catheter in the right chest wall. She presents today for fistula creation. Previous imaging in the office revealed a left basilic vein of adequate size for fistula creation. The procedure in 2 stages was discussed with the patient. She seemingly understood and was willing to proceed as such. At the time of the procedure an ultrasound was utilized. There was an existent palpable thrill over the area of the proximal brachial artery. At the location where the incision was made at the antecubital fossa, the brachial artery appeared normal and patent without any evidence of fistula at this site or anywhere proximally or distally. The basilic vein was adequate size in the medial forearm for an anastomosis.] Procedure in detail: [The patient was taken to the operative suite and placed in supine position. Left upper extremity is prepped and draped in usual sterile fashion. A preprocedure timeout was performed, all parties were in agreement. He previously formed regional block was adequate. A ashley was made in the antecubital fossa just proximal to the bend in the arm and incision was made and carried down to the level of subcutaneous tissues. Is carried down the level through the fascia. The brachial artery was identified. It was dissected free proximally and distally encircled with Vesseloops. At that point ultrasound was used and the basilic vein was identified. Dissection was performed in the subcutaneous tissues until the basilic vein was identified. It was encircled with vessel loop and dissected free from its surrounding tissues. Multiple branches were ligated with 3-0 silk and transected. Once a sufficient amount of vein was cleared free, it was transected distally and the remaining portion was oversewn with a 6-0 silk. The vein was then serially dilated up to a 4. The patient was heparinized flow was occluded through the brachial artery. Arteriotomy was made. Anastomosis was created with 7-0 Prolene. The vein and distal arteriotomy back bleed. The anastomosis was completed. The proximal artery was opened and allowed to flush through the newly created anastomosis prior to opening flow back to the distal arm. Doppler was utilized revealing multiphasic flow proximally and distally to the anastomosis as well as through the vein. Hemostasis was controlled with sutures of 7-0 Prolene. Thrombin and Gelfoam was utilized at this site and the tract where the vein was dissected free. The area was then copiously irrigated with saline. Once hemostasis was adequate, the wound was closed. The subcutaneous tissues were reapproximated with 3-0 Vicryl. The skin was approximated with running 4-0 Monocryl. There was a good thrill at the level of basilic vein at the conclusion of the procedure along with a palpable radial pulse. The patient was allowed awaken from anesthesia and transferred to PACU in stable condition having tolerated the procedure well.] Plan - Discharge Summary Discharge Rx Participant: No New Discharge Prescriptions: No Action Metoprolol Succinate (ER) [Toprol XL] 50 mg PO BID Sucralfate [Carafate] 1 gm PO ACHS Repaglinide 0.5 mg PO BID-W/MEALS Марина-Twyla 1 tab PO DAILY Metoclopramide [Reglan] 5 mg PO TID-W/MEALS HYDROcodone/APAP 5-325MG [[place] 5-325] 1 tab PO BID PRN PRN Reason: Pain amLODIPine [Norvasc] 5 mg PO BID #60 tab Pantoprazole [Protonix] 40 mg PO AC-BID #60 tablet. Nitroglycerin Sl Tabs [Nitrostat] 0.4 mg SUBLINGUAL Q5M PRN #100 tab PRN Reason: Chest Pain Ondansetron [Zofran] 4 mg PO Q8HR PRN PRN Reason: Nausea Losartan [Cozaar] 50 mg PO DAILY #30 tab LORazepam [Ativan] 0.5 mg PO HS Discharge Medication List Metoprolol Succinate (ER) [Toprol XL] 50 mg PO BID 02/01/20 [History] Sucralfate [Carafate] 1 gm PO ACHS 02/01/20 [History] HYDROcodone/APAP 5-325MG [[place] 5-325] 1 tab PO BID PRN 04/23/20 [History] Metoclopramide [Reglan] 5 mg PO TID-W/MEALS 04/23/20 [History] Марина-Twyla 1 tab PO DAILY 04/23/20 [History] Repaglinide 0.5 mg PO BID-W/MEALS 04/23/20 [History] Pantoprazole [Protonix] 40 mg PO AC-BID #60 tablet.dr 04/30/20 [Rx] amLODIPine [Norvasc] 5 mg PO BID #60 tab 04/30/20 [Rx] Nitroglycerin Sl Tabs [Nitrostat] 0.4 mg SUBLINGUAL Q5M PRN #100 tab 05/11/20 [Rx] Ondansetron [Zofran] 4 mg PO Q8HR PRN 05/21/20 [History] Losartan [Cozaar] 50 mg PO DAILY #30 tab 05/24/20 [Rx] LORazepam [Ativan] 0.5 mg PO HS 06/05/20 [History]
== END 2020-06-05 15:31 | disposition home or self-care (01) ==
LOC: OR 09:05
PROVIDERS: ATTEND Surgery
DX: I13.2 Hypertensive heart and chronic kidney disease with heart failure and with stage 5 chronic kidney disease, or end stage renal disease (principal); E11.22 Type 2 diabetes mellitus with diabetic chronic kidney disease; N18.6 End stage renal disease; I50.9 Heart failure, unspecified; I25.2 Old myocardial infarction; I25.10 Atherosclerotic heart disease of native coronary artery without angina pectoris; M32.9 Systemic lupus erythematosus, unspecified; E11.51 Type 2 diabetes mellitus with diabetic peripheral angiopathy without gangrene; I70.213 Atherosclerosis of native arteries of extremities with intermittent claudication, bilateral legs; E78.5 Hyperlipidemia, unspecified; J44.9 Chronic obstructive pulmonary disease, unspecified; F41.9 Anxiety disorder, unspecified; F31.9 Bipolar disorder, unspecified; K21.9 Gastro-esophageal reflux disease without esophagitis; I71.4 Abdominal aortic aneurysm, without rupture; D68.51 Activated protein C resistance; Z79.899 Other long term (current) drug therapy; Z91.040 Latex allergy status; Z88.1 Allergy status to other antibiotic agents; Z88.2 Allergy status to sulfonamides; Z88.8 Allergy status to other drugs, medicaments and biological substances; Z86.73 Personal history of transient ischemic attack (TIA), and cerebral infarction without residual deficits; Z87.01 Personal history of pneumonia (recurrent); Z86.19 Personal history of other infectious and parasitic diseases; Z95.1 Presence of aortocoronary bypass graft; Z79.84 Long term (current) use of oral hypoglycemic drugs; Z91.018 Allergy to other foods; Z82.49 Family history of ischemic heart disease and other diseases of the circulatory system; Z80.9 Family history of malignant neoplasm, unspecified; Z82.5 Family history of asthma and other chronic lower respiratory diseases; Z99.2 Dependence on renal dialysis
CPT/HCPCS: 64415; 76942; 84703; 36821; J2250; J1644; J1100; J2405; J2001; J3010; J2795; J2704

== ENCOUNTER 2020-07-13 08:41 | Inpatient (IN) | payer MEDICARE, OTHER ==
[2020-07-13] MEDS ORDERED: ASPIRIN 81 MG PO STA (09:25)
[2020-07-13] MEDS ORDERED: NITROGLYCERIN OINT 1 INCH/GM PACKET TOPICAL STA (09:25)
[2020-07-13] MEDS ORDERED: diphenhydrAMINE 50 MG/ML 1 ML VIAL IVP STA ×3 (09:25→17:40)
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
--- NOTE | 2020-07-13 13:33 | XR ---
EXAMINATION TYPE: XR chest 2V DATE OF EXAM: 07/13/2020 CLINICAL HISTORY: Chest pain. History of dialysis use, COPD. TECHNIQUE: Frontal and lateral views of the chest are obtained. COMPARISON: Chest radiograph 05/21/2020 FINDINGS: Right-sided MediPort with tip over the cavoatrial junction. Left sided internal jugular ce ntral venous hemodialysis catheter distal tip over the right atrium. Sternotomy wires. Cardiomegaly, pulmonary basilar congestion, and pulmonary edema appear similar to 05/21/2020 comparison. No pleural effusion and no pneumothorax. The osseous structures are intact. IMPRESSION: Cardiomegaly, pulmonary vascular congestion, and pulmonary edema.
[2020-07-13] MEDS ORDERED: diphenhydrAMINE 50 MG CAP PO STA (13:53)
[2020-07-13 14:25] LABS: Anisocytosis Slight; Basophils % (A) 1 %; Eosinophils # (A) 0.1 k/uL (0-0.7); Eosinophils % (A) 1 %; HCT 31.3 % (34.0-46.0); HGB 10.4 gm/dL (11.4-16.0); Lymphocytes # (A) 0.9 k/uL (1.0-4.8); Lymphocytes % (A) 11 %; MCH 28.3 pg (25.0-35.0); MCHC 33.2 g/dL (31.0-37.0); MCV 85.4 fL (80.0-100.0); Mean Platelet Volume 9.4; Monocytes # (A) 0.5 k/uL (0-1.0); Monocytes % (A) 6 %; Neutrophils # (A) 6.4 k/uL (1.3-7.7); Neutrophils % (A) 80 %; Platelet Count 244 k/uL (150-450); RBC 3.66 m/uL (3.80-5.40); RDW 17.4 % (11.5-15.5)
[2020-07-13] MEDS ORDERED: NITROGLYCERIN SL TABS 0.4 MG TAB SUBLINGUAL PRN (14:35)
[2020-07-13] MEDS ORDERED: MORPHINE SULFATE 2 MG/ML SYRINGE IVP STA (15:01)
[2020-07-13 15:04] LABS: Albumin 2.9 g/dL (3.5-5.0); Calcium 8.6 mg/dL (8.4-10.2); Magnesium 2.2 mg/dL (1.6-2.3); Potassium 3.3 mmol/L (3.5-5.1); Total Bilirubin 4.8 mg/dL (0.2-1.3); Total Protein 5.8 g/dL (6.3-8.2)
[2020-07-13 15:08] LABS: Partial Thromboplastin Time 27.6 sec (22.0-30.0); Prothrombin Time 10.1 sec (9.0-12.0)
[2020-07-13] MEDS ORDERED: HYDROcodone/APAP 5-325MG 1 EACH TAB PO STA (18:59)
[2020-07-13] MEDS: NITROGLYCERIN OINT 1 INCH/GM PACKET TOPICAL SCH ×2 (20:50→23:22)
[2020-07-14] MEDS: HYDROcodone/APAP 5-325MG 1 EACH TAB PO PRN ×2 (02:00→17:58)
[2020-07-14 06:20] LABS: Glucose,Whole Blood 457 mg/dL (75-99)
[2020-07-14] MEDS: NITROGLYCERIN OINT 1 INCH/GM PACKET TOPICAL SCH ×3 (06:47→17:09)
[2020-07-14] MEDS: INSULIN ASPART (NovoLOG) 100 UNIT/ML VIAL SQ SCH ×7 (06:47→20:46)
[2020-07-14 07:19] LABS: Cholesterol 249 mg/dL (<200); HDL Cholesterol 33 mg/dL (40-60); LDL Cholesterol,Calculated 170 mg/dL (0-99); Triglycerides 230 mg/dL (<150)
[2020-07-14] MEDS ORDERED: NITROGLYCERIN SL TABS 0.4 MG TAB SUBLINGUAL PRN (09:06)
[2020-07-14] MEDS ORDERED: APIXABAN 2.5 MG TABLET PO SCH (09:15)
[2020-07-14] MEDS ORDERED: Potassium Replacement Protocol 1 EACH MISC MISCELLANE PRN (09:25)
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
[2020-07-14] MEDS: ASPIRIN 325 MG TAB PO SCH (10:03)
[2020-07-14] MEDS: hydrALAZINE HCL 50 MG TAB PO SCH ×3 (10:03→20:42)
[2020-07-14] MEDS: amLODIPine 5 MG TAB PO SCH ×2 (10:03→20:42)
[2020-07-14] MEDS: CLOPIDOGREL 75 MG TAB PO SCH (10:04)
[2020-07-14] MEDS: POTASSIUM CHLORIDE ER 20 MEQ TAB.ER PO SCH ×2 (10:04→13:24)
[2020-07-14] MEDS: METOPROLOL SUCCINATE (ER) 50 MG TAB.ER.24H PO SCH (10:06)
[2020-07-14] MEDS: LOSARTAN 50 MG TAB PO SCH ×2 (10:06→20:42)
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
[2020-07-14] MEDS: diphenhydrAMINE 50 MG/ML 1 ML VIAL IVP PRN (10:38)
[2020-07-14 11:53] LABS: Glucose,Whole Blood 100 mg/dL (75-99)
--- NOTE | 2020-07-14 11:54 | HP ---
HISTORY AND PHYSICAL 50-year-old female, coronary artery disease, status post grafting, diastolic heart failure, renal disease, on dialysis, peripheral artery disease, came with left leg pain with midsternal chest pain without radiation. Nausea, vomiting. Denies any sweats, lightheadedness, dizziness, Hgb blood transfusion 1 month ago. Chest pressure, midsternal area. Await for Cardiology to see. So far troponins are negative. Sugars in the high 400, on Accu-Chek protocol 5 units plus scale. Liver enzymes have been high. Cholesterol 249, triglycerides 238, LDL 1 7, HDL 33. EKG sinus rhythm, right bundle branch block. She was given pain medicine in the emergency room. REVIEW OF SYSTEMS: 14 point review of systems negative except for mentioned in HPI. PHYSICAL EXAM: A 50-year-old white female, resting comfortably in bed, in no acute distress. Blood pressure 170s over 90s, O2 94, heart rate 90-95. HEAD: Normocephalic, atraumatic. NECK: Supple. LUNGS are rales at the bases. HEART S1, S2. Tenderness to palpation of the chest. ABDOMEN: Soft. EXTREMITIES: No cyanosis, clubbing, edema. NEUROLOGIC: Diminished pulses in dorsalis pedis, posterior tibial. The patient is awake, alert, orient x3. ASSESSMENT AND PLAN: 1. Atypical musculoskeletal chest pain. 2. Acute coronary syndrome ruled out. 3. History of coronary artery bypass grafting. 4. Chronic diastolic heart failure. 5. Hypertension. 6. Dyslipidemia. 7. Diabetes mellitus. 8. Nicotine addiction. 9. Elevated bilirubin and liver function tests. 10.Maintain blood pressure control. 11.Await for clearance by surgery and vascular surgery for claudication on her left leg. 12.Evaluation by Dr. Otto for elevated liver enzymes. 13.History of cerebrovascular accident, transient ischemic attack. 14.Deep vein thrombosis. 15.Gastroesophageal reflux disease. 16.Asthma. 17.Gastrointestinal bleed. 18.Dyslipidemia. 19.Hypertension. 20.Coronary artery disease. 21.Renal disease. Please see further orders. MMODL / IJN: [id number] /
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
[2020-07-14] MEDS: METOCLOPRAMIDE 5 MG TAB PO SCH ×2 (13:23→17:34)
[2020-07-14] MEDS: hydrOXYzine HCL 10 MG TAB PO SCH ×3 (13:55→20:42)
[2020-07-14] MEDS ORDERED: hydrOXYzine HCL 10 MG TAB PO SCH (16:00)
[2020-07-14 16:52] LABS: Glucose,Whole Blood 190 mg/dL (75-99)
[2020-07-14] MEDS: PANTOPRAZOLE 40 MG TABLET PO SCH (17:34)
[2020-07-14] MEDS: diphenhydrAMINE 2% CREAM 28.4 GM TUBE TOPICAL PRN (17:53)
[2020-07-14 18:11] LABS: Appearance,Urine Cloudy (Clear); Bacteria,Urine Moderate /hpf; Bilirubin,Urine 2+ (Negative); Blood,Urine Moderate (Negative); Color,Urine Dark Brown; Glucose,Urine (UA) 3+ (Negative); Hyaline Casts,Urine 3 /lpf (0-2); Ketones,Urine Negative (Negative); Leukocyte Esterase,Urine Small (Negative); Mucus,Urine Rare /hpf; Nitrite,Urine Negative (Negative); Protein,Urine 3+ (Negative); RBC,Urine 47 /hpf (0-5); Specific Gravity,Urine 1.032 (1.001-1.035); Squamous Epithelial Cell,Urine 12 /hpf (0-4); WBC,Urine 20 /hpf (0-5)
[2020-07-14 19:57] LABS: Glucose,Whole Blood 142 mg/dL (75-99)
[2020-07-14] MEDS: LORazepam 0.5 MG TAB PO SCH (20:42)
[2020-07-15] MEDS: HYDROcodone/APAP 5-325MG 1 EACH TAB PO PRN ×3 (00:11→18:07)
[2020-07-15 01:49] LABS: Glucose,Whole Blood 289 mg/dL (75-99)
[2020-07-15] MEDS: NITROGLYCERIN OINT 1 INCH/GM PACKET TOPICAL SCH ×4 (02:46→18:06)
[2020-07-15] MEDS: diphenhydrAMINE 50 MG/ML 1 ML VIAL IVP PRN ×3 (05:46→19:04)
[2020-07-15 06:07] LABS: Glucose,Whole Blood 364 mg/dL (75-99)
[2020-07-15] MEDS: METOCLOPRAMIDE 5 MG TAB PO SCH ×3 (06:39→18:07)
[2020-07-15] MEDS: PANTOPRAZOLE 40 MG TABLET PO SCH ×2 (06:41→18:07)
[2020-07-15] MEDS: INSULIN ASPART (NovoLOG) 100 UNIT/ML VIAL SQ SCH ×7 (06:41→20:25)
[2020-07-15] MEDS: ASPIRIN 325 MG TAB PO SCH (07:46)
[2020-07-15] MEDS: amLODIPine 5 MG TAB PO SCH ×2 (07:46→20:24)
[2020-07-15] MEDS: CLOPIDOGREL 75 MG TAB PO SCH (07:46)
[2020-07-15] MEDS: hydrALAZINE HCL 50 MG TAB PO SCH ×3 (07:46→20:24)
[2020-07-15] MEDS: LORATADINE 10 MG TAB PO SCH (07:46)
[2020-07-15] MEDS: METOPROLOL SUCCINATE (ER) 50 MG TAB.ER.24H PO SCH (07:47)
[2020-07-15] MEDS: LOSARTAN 50 MG TAB PO SCH ×2 (07:47→20:24)
[2020-07-15] MEDS: hydrOXYzine HCL 10 MG TAB PO SCH ×3 (09:05→20:25)
--- NOTE | 2020-07-15 09:24 | CT ---
EXAMINATION TYPE: CT abdomen pelvis wo con DATE OF EXAM: 07/15/2020 HISTORY: Elevated LFT's CT DLP: 806 mGycm. Automated Exposure Control for Dose Reduction was Utilized. TECHNIQUE: CT scan of the abdomen and pelvis is performed without oral or IV contrast. COMPARISON: CT abdomen and pelvis May 21, 2020 and older CTs FINDINGS: Within the limitations of a non-contrast study, the following observations are made. LUNG BASES: Partial visualization of overlying sternal wires and right internal jugular dialysis cath eters terminating in right atrium similar to prior. Mild cardiomegaly redemonstrated. Mild to moderat e bibasilar linear scarring and/or atelectasis currently. LIVER/GB: Persistent paddle megaly with liver heterogeneously hypodense relative to spleen. Contracte d gallbladder with intraluminal gallstones. No new intrahepatic or extra hepatic biliary dilatation. No new suspicious focal masses. No new surrounding ascites. PANCREAS: No significant abnormality is seen. SPLEEN: No significant abnormality is seen. ADRENALS: No significant abnormality is seen. KIDNEYS: No significant abnormality is seen. BOWEL: Suboptimal evaluation of bowel without enteric contrast. No suspicious small or large bowel di latation. GENITAL ORGANS: Anteverted uterus. LYMPH NODES: No greater than 1cm abdominal or pelvic lymph nodes are appreciated. OSSEOUS STRUCTURES: Slight grade 1 anterolisthesis L3 on L4. OTHER: Calcified plaque of the aorta extends into branch vessels. There are common iliac arterial patricia nt graft bilaterally redemonstrated. There is an infrarenal AAA measuring up to 3.7 cm AP diameter ax ial image 52 redemonstrated. AAA better seen on contrast enhanced CT April 23, 2020. Moderate diffuse s ubcutaneous edema and/or soft tissue anasarca similar to the most recent CT. IMPRESSION: 1. Hepatomegaly redemonstrated. Heterogeneously hypodense liver redemonstrated could be on basis of d iffuse fatty infiltration and/or underlying hepatocellular disease. No new suspicious focal mass or d uctal dilatation identified on noncontrast CT. 2. Persistent moderate to severe diffuse subcutaneous edema and/or soft tissue anasarca. No significa nt intra-abdominal ascites. No significant change from most recent CT.
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
[2020-07-15 12:14] LABS: Glucose,Whole Blood 256 mg/dL (75-99)
[2020-07-15 12:19] LABS: Anisocytosis Slight; Basophils # (A) 0.1 k/uL (0-0.2); Basophils % (A) 1 %; Eosinophils # (A) 0.1 k/uL (0-0.7); Eosinophils % (A) 2 %; HCT 31.8 % (34.0-46.0); HGB 10.7 gm/dL (11.4-16.0); Lymphocytes # (A) 1.1 k/uL (1.0-4.8); Lymphocytes % (A) 12 %; MCH 29.5 pg (25.0-35.0); MCHC 33.7 g/dL (31.0-37.0); MCV 87.4 fL (80.0-100.0); Mean Platelet Volume 9.4; Monocytes # (A) 0.5 k/uL (0-1.0); Monocytes % (A) 6 %; Neutrophils % (A) 79 %; Platelet Count 270 k/uL (150-450); RBC 3.64 m/uL (3.80-5.40); RDW 17.6 % (11.5-15.5); WBC 8.9 k/uL (3.8-10.6)
[2020-07-15 12:27] LABS: Calcium 8.4 mg/dL (8.4-10.2); Potassium 4.3 mmol/L (3.5-5.1); Total Protein 6.3 g/dL (6.3-8.2)
--- NOTE | 2020-07-15 13:30 | P.PN ---
Subjective Progress Note Date: 07/15/20 Principal diagnosis: This is a 50-year-old female with new onset ESRD since January 2020 came in because of pleuritic chest pain. She is on dialysis Thursday was a Thursday. Chest pain is much better but still persists She does complaining of itching She had a fistula placed in her left upper arm and is somewhat deep. 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, lupus and a 3.87 or abdominal aortic aneurysm Objective - Vital Signs Vital signs: Vital Signs Temp 98.2 F 07/15/20 08:00 Pulse 91 07/15/20 08:00 Resp 18 07/15/20 08:00 BP 182/81 07/15/20 08:00 Pulse Ox 98 07/15/20 08:00 Intake & Output 07/14/20 07/15/20 07/15/20 18:59 06:59 18:59 Intake Total 720 240 118 Output Total 1000 Balance -280 240 118 Weight 86.6 kg Intake: Oral 720 240 118 Output: Urine 1000 Other: Voiding Method Toilet Toilet Toilet # Voids 2 1 1 Examination awake alert oriented comfortable HEENT exam no JVP neck is supple no facial asymmetry Lungs are significant for left basilar crackles not clear but cough but on the right side is clear Heart sounds are unremarkable for any murmur rub gallop Abdomen soft nontender Extremity exam was no edema Neurologically awake alert oriented She has a permacath on the left and a MediPort on the right which is leaking blood and has bandages on - Labs CBC & Chem 7: 07/15/20 11:54 07/15/20 11:54 Labs: Abnormal Lab Results - Last 24 Hours (Table) 07/14/20 07/14/20 07/14/20 Range/Units 16:49 17:49 19:56 RBC (3.80-5.40) m/uL Hgb (11.4-16.0) gm/dL Hct (34.0-46.0) % RDW (11.5-15.5) % Sodium (137-145) mmol/L Carbon Dioxide (22-30) mmol/L BUN (7-17) mg/dL Creatinine (0.52-1.04) mg/dL Glucose (74-99) mg/dL POC Glucose (mg/dL) 190 H 142 H (75-99) mg/dL Total Bilirubin (0.2-1.3) mg/dL AST (14-36) U/L ALT (4-34) U/L Alkaline Phosphatase (38-126) U/L Albumin (3.5-5.0) g/dL Urine Appearance Cloudy H (Clear) Urine Protein 3+ H (Negative) Urine Glucose (UA) 3+ H (Negative) Urine Blood Moderate H (Negative) Urine Bilirubin 2+ H (Negative) Ur Leukocyte Esterase Small H (Negative) Urine RBC 47 H (0-5) /hpf Urine WBC 20 H (0-5) /hpf Ur Squamous Epith Cells 12 H (0-4) /hpf Urine Bacteria Moderate H (None) /hpf Hyaline Casts 3 H (0-2) /lpf Urine Mucus Rare H (None) /hpf 07/15/20 07/15/20 07/15/20 Range/Units 01:47 06:05 11:54 RBC 3.64 L (3.80-5.40) m/uL Hgb 10.7 L (11.4-16.0) gm/dL Hct 31.8 L (34.0-46.0) % RDW 17.6 H (11.5-15.5) % Sodium (137-145) mmol/L Carbon Dioxide (22-30) mmol/L BUN (7-17) mg/dL Creatinine (0.52-1.04) mg/dL Glucose (74-99) mg/dL POC Glucose (mg/dL) 289 H 364 H (75-99) mg/dL Total Bilirubin (0.2-1.3) mg/dL AST (14-36) U/L ALT (4-34) U/L Alkaline Phosphatase (38-126) U/L Albumin (3.5-5.0) g/dL Urine Appearance (Clear) Urine Protein (Negative) Urine Glucose (UA) (Negative) Urine Blood (Negative) Urine Bilirubin (Negative) Ur Leukocyte Esterase (Negative) Urine RBC (0-5) /hpf Urine WBC (0-5) /hpf Ur Squamous Epith Cells (0-4) /hpf Urine Bacteria (None) /hpf Hyaline Casts (0-2) /lpf Urine Mucus (None) /hpf 07/15/20 07/15/20 Range/Units 11:54 12:10 RBC (3.80-5.40) m/uL Hgb (11.4-16.0) gm/dL Hct (34.0-46.0) % RDW (11.5-15.5) % Sodium 133 L (137-145) mmol/L Carbon Dioxide 20 L (22-30) mmol/L BUN 32 H (7-17) mg/dL Creatinine 2.93 H (0.52-1.04) mg/dL Glucose 263 H (74-99) mg/dL POC Glucose (mg/dL) 256 H (75-99) mg/dL Total Bilirubin 5.0 H (0.2-1.3) mg/dL AST 81 H (14-36) U/L ALT 89 H (4-34) U/L Alkaline Phosphatase 793 H (38-126) U/L Albumin 3.0 L (3.5-5.0) g/dL Urine Appearance (Clear) Urine Protein (Negative) Urine Glucose (UA) (Negative) Urine Blood (Negative) Urine Bilirubin (Negative) Ur Leukocyte Esterase (Negative) Urine RBC (0-5) /hpf Urine WBC (0-5) /hpf Ur Squamous Epith Cells (0-4) /hpf Urine Bacteria (None) /hpf Hyaline Casts (0-2) /lpf Urine Mucus (None) /hpf Assessment and Plan Assessment: Impression 1. ESRD on dialysis Thursday since January 2020 with a permacath on the left chest 2. Admitted with chest pain which is pleuritic or musculoskeletal. Patient has history of coronary artery bypass graft 2017. Cardiology has ruled out any ischemic etiology 3. Permacath left chest, 4. Recent fistula in the left upper arm. Deep 5. 3.8 cm abdominal aortic aneurysm 6. Anemia of ESRD hemoglobin is 10.7 at target 7. Left basal crackles on exam and CT chest shows mild to moderate by basilar scarring or atelectasis 8. Hepatomegaly noted on computed tomography scan, likely fatty infiltration Recommendation 1. Patient can be discharged from a nephrological perspective
--- NOTE | 2020-07-15 16:06 | CONS ---
CONSULTATION DATE OF SERVICE: 07/15/2020 REQUESTING PHYSICIAN: Dr. Pavel Velasquez. REASON FOR CONSULTATION: Elevated LFTs. HISTORY OF PRESENT ILLNESS: The patient is a 50-year-old pleasant female with history of coronary artery disease status post CABG, history of end-stage renal disease, on hemodialysis for the last one year duration, longstanding history of diabetes mellitus and hypertension. She was admitted to the hospital because of chest pain, nausea, vomiting, and some shortness of breath. At the time of admission to the hospital, she was noted to have elevated serum transaminases with AST and ALT in the range of 70 and 84, respectively, T-bilirubin was 4.8, alkaline phosphatase is 696. The patient denies any prior history of chronic liver disease. She denies any history of jaundice or hepatitis in the past. She felt extremely nauseated yesterday, but symptoms have gradually improved. She reports taking no new medications in the last few weeks. However, she has been complaining of severe itching and apparently while she was in dialysis a week ago she was given some antibiotics that she does not recall the name. On review of her records, serum transaminases have been minimally elevated in April of 2020. AST was 38, ALT was 56, bilirubin was always within normal limits. Alkaline phosphatase has been consistently being elevated in the range of 300-600 for the last 2 years. PAST MEDICAL HISTORY: Significant for diabetes mellitus, hypertension, hyperlipidemia, coronary artery disease status post [place] in the past, history of congestive heart failure, end-stage renal disease, on hemodialysis. PAST SURGICAL HISTORY: CABG, cardiac catheterization with stent placement, tubal ligation, bilateral common iliac artery stents, EGD in the past, tubal ligation. SOCIAL HISTORY: Chronic smoker. No alcohol use. FAMILY HISTORY: Mother had asthma and some kind of cancer. Father had DVT. MEDICATIONS: Medications at home include hydroxyzine, apresoline, Norvasc, Protonix, Zofran, Nitrostat, Toprol, Reglan, Cozaar, [place], Plavix, cetirizine, Eliquis and Xanax. REVIEW OF SYSTEMS: CARDIOPULMONARY: She does complain of some chest pain, occasional shortness of breath. : No dysuria or hematuria. MUSCULOSKELETAL: Unremarkable. SKIN: Unremarkable. ENDOCRINE: Unremarkable. PSYCHIATRIC: Unremarkable. NEUROLOGY: Unremarkable. ENT/VISION: Unremarkable. CONSTITUTIONAL: No recent weight loss. No fever, chills, night sweats. PHYSICAL EXAMINATION: She appears comfortable. No apparent distress. VITAL SIGNS: Stable. Blood pressure is 182/81, pulse rate 91, temperature 98.2. HEENT: Examination unremarkable. Conjunctivae are pink. Sclerae anicteric. Oral cavity no lesions. NECK: No JVD or lymph node enlargement. CHEST: Clear to auscultation. HEART: Regular rate and rhythm. ABDOMEN: Soft. Bowel sounds are positive. EXTREMITIES: No pedal edema. SKIN: No rashes. NEURO: She is alert and oriented x3. No focal deficits. LABS: Labs done at the time of admission the hospital, WBC is 8, hemoglobin 10.4, platelets 244. INR 1. T bilirubin is 4.8. AST and ALT are 70 and 84 respectively, alkaline phosphatase is 696. WINSOME negative. Antimitochondrial antibody is normal. IMAGING: She did have a CT of the abdomen and pelvis done yesterday that revealed hepatomegaly with heterogeneous liver consistent with fatty infiltration. No evidence of intra and extrahepatic biliary ductal dilation. No ascites seen. IMPRESSION: 1. Mild elevation of serum transaminases and elevated bilirubin and alkaline phosphatase in this lady with no history of chronic liver disease. CT of the abdomen done yesterday did show evidence of fatty infiltration of the liver and no evidence of intra and extrahepatic biliary ductal dilation. On review of her labs from prior hospitalizations, she always had persistent mild elevation of serum transaminases with elevated alkaline phosphatase, but bilirubin was always within normal limits. At this time, we will initiate workup for chronic liver disease. The patient also stated that recently she had some antibiotics about 2 weeks ago, but does not recall the name of the medication and possibility of medication induced hepatitis also needs to be considered. 2. Nausea and vomiting, resolving. 3. End-stage renal disease, on hemodialysis. 4. Longstanding history of diabetes mellitus. RECOMMENDATIONS: 1. Initiate workup for chronic liver disease. 2. Monitor LFTs closely. 3. Avoid hepatotoxic medications. We will follow with you closely. Thank you for this consultation. MMODL / ABIGAIL: [id number] /
[2020-07-15 16:31] LABS: Hepatitis A Antibody IgM Non-Reactive (Non-Reactive); Hepatitis B Core IgM Non-Reactive (Non-Reactive); Hepatitis B Surface Antigen Non-Reactive (Non-Reactive); Hepatitis C IgG Antibody Non-Reactive (Non-Reactive)
[2020-07-15 16:54] LABS: Glucose,Whole Blood 241 mg/dL (75-99)
[2020-07-15 16:56] LABS: Alpha Fetoprotein, Tumor Mkr <2.5 ng/mL (0.0-7.9)
[2020-07-15 17:03] LABS: % Iron Saturation 30.53 (12.00-45.00)
[2020-07-15 19:54] LABS: Glucose,Whole Blood 142 mg/dL (75-99)
[2020-07-15] MEDS: LORazepam 0.5 MG TAB PO SCH (20:24)
[2020-07-16 01:53] LABS: Glucose,Whole Blood 93 mg/dL (75-99)
[2020-07-16] MEDS: NITROGLYCERIN OINT 1 INCH/GM PACKET TOPICAL SCH ×5 (02:18→22:22)
[2020-07-16] MEDS: HYDROcodone/APAP 5-325MG 1 EACH TAB PO PRN ×3 (03:59→21:14)
[2020-07-16] MEDS: diphenhydrAMINE 50 MG/ML 1 ML VIAL IVP PRN ×3 (03:59→15:40)
[2020-07-16] MEDS: PANTOPRAZOLE 40 MG TABLET PO SCH ×2 (05:59→17:53)
[2020-07-16] MEDS: METOCLOPRAMIDE 5 MG TAB PO SCH ×3 (05:59→17:53)
[2020-07-16 06:58] LABS: Glucose,Whole Blood 203 mg/dL (75-99)
[2020-07-16] MEDS: INSULIN ASPART (NovoLOG) 100 UNIT/ML VIAL SQ SCH ×7 (07:26→21:07)
[2020-07-16 07:51] LABS: Ceruloplasmin 54.3 mg/dL (20.0-60.0)
[2020-07-16] MEDS: ASPIRIN 325 MG TAB PO SCH (09:00)
[2020-07-16] MEDS: amLODIPine 5 MG TAB PO SCH ×2 (09:00→21:07)
[2020-07-16] MEDS: CLOPIDOGREL 75 MG TAB PO SCH (09:00)
[2020-07-16] MEDS: hydrALAZINE HCL 50 MG TAB PO SCH ×3 (09:00→21:07)
[2020-07-16] MEDS: LOSARTAN 50 MG TAB PO SCH ×2 (09:01→21:07)
[2020-07-16] MEDS: LORATADINE 10 MG TAB PO SCH (09:01)
[2020-07-16] MEDS: METOPROLOL SUCCINATE (ER) 50 MG TAB.ER.24H PO SCH (09:01)
[2020-07-16] MEDS: hydrOXYzine HCL 10 MG TAB PO SCH ×3 (09:31→21:09)
--- NOTE | 2020-07-16 10:18 | P.PN ---
Subjective Progress Note Date: 07/16/20 Principal diagnosis: COPD stable not in exacerbation End-stage renal disease on hemodialysis Chest pain cardiovascular service is evaluating Acute pulmonary edema combination of hypertensive heart failure renal failure Abdominal aortic aneurysm Chronic anemia 07/16/2020, patient seen eval examined during the rounds sitting upright in the bed breathing comfortably at room air, denies any chest pain or shortness of breath on activity and exertion however mild shortness of breaths present, patient is the do for dialysis, This is a pleasant 50-year-old -[place] female past medical history significant for coronary artery disease status post bypass grafting, chronic diastolic heart failure end-stage renal disease on hemodialysis, peripheral artery disease the left leg, hypertension, dyslipidemia, COPD, diabetes mellitus and chronic nicotine dependence. She presented to the hospital due to midsternal chest pain without radiation, nausea and vomiting, patient complains of shortness of breath which is chronic but also has shortness of breath with minimal activity. She states she doesn't usually wear up a flight of stairs. Walking to the bathroom she sometimes has chest pain it just depends. She denies any sweats, no lightheadedness or dizziness. At the time of evaluation, patient is complaining of feeling tired. She states she has been chronically short of breath. She continues to have chest pressure in the midsternal area. Initial blood pressure was 190/85. Troponins 0.025, 0.026 on 2 draws. 3.3, chloride 93, CO2 25, BUN 26 and creatinine 2.18, blood sugar 453. Total bilirubin 4.8, AST 70, ALT 84, alk phosphatase 696. Cholesterol 249, triglycerides 230, LDL 170, HDL 33. EKG is sinus rhythm, right bundle branch block. Patient was given morphine and Black in the emergency center for chest pain. Chest x-ray reveals cardiomegaly, pulmonary vascular congestion and pulmonary edema. Objective - Vital Signs Vital signs: Vital Signs Temp 97.5 F L 07/16/20 08:00 Pulse 84 07/16/20 08:00 Resp 16 07/16/20 08:00 BP 158/70 07/16/20 08:00 Pulse Ox 99 07/16/20 08:00 Intake & Output 07/15/20 07/16/20 07/16/20 18:59 06:59 18:59 Intake Total 718 120 Output Total 550 Balance 168 120 Weight 87.9 kg Intake: Oral 718 120 Output: Urine 550 Other: Voiding Method Toilet Toilet Toilet # Voids 3 1 1 - Exam - Constitutional General appearance: average body habitus, cooperative, disheveled - EENT Eyes: EOMI, PERRLA ENT: normal oropharynx Ears: bilateral: normal - Neck Neck: normal ROM Carotids: bilateral: upstroke normal Thyroid: bilateral: normal size - Respiratory Respiratory: bilateral: CTA - Cardiovascular Rhythm: regular Heart sounds: normal: S1, S2 - Gastrointestinal General gastrointestinal: decreased bowel sounds, distended, soft - Integumentary Integumentary: decreased turgor - Neurologic Neurologic: CNII-XII intact - Musculoskeletal Musculoskeletal: gait normal, generalized weakness, strength equal bilaterally - Psychiatric Psychiatric: A&O x's 3, appropriate affect, intact judgment & insight - Labs CBC & Chem 7: 07/15/20 11:54 07/15/20 11:54 Labs: Abnormal Lab Results - Last 24 Hours (Table) 07/15/20 07/15/20 07/15/20 Range/Units 11:54 11:54 12:10 RBC 3.64 L (3.80-5.40) m/uL Hgb 10.7 L (11.4-16.0) gm/dL Hct 31.8 L (34.0-46.0) % RDW 17.6 H (11.5-15.5) % Sodium 133 L (137-145) mmol/L Carbon Dioxide 20 L (22-30) mmol/L BUN 32 H (7-17) mg/dL Creatinine 2.93 H (0.52-1.04) mg/dL Glucose 263 H (74-99) mg/dL POC Glucose (mg/dL) 256 H (75-99) mg/dL TIBC 226 L (228-460) ug/dL Ferritin 457.0 H (10.0-291.0) ng/mL Total Bilirubin 5.0 H (0.2-1.3) mg/dL AST 81 H (14-36) U/L ALT 89 H (4-34) U/L Alkaline Phosphatase 793 H (38-126) U/L Albumin 3.0 L (3.5-5.0) g/dL 07/15/20 07/15/20 07/16/20 Range/Units 16:52 19:52 06:57 RBC (3.80-5.40) m/uL Hgb (11.4-16.0) gm/dL Hct (34.0-46.0) % RDW (11.5-15.5) % Sodium (137-145) mmol/L Carbon Dioxide (22-30) mmol/L BUN (7-17) mg/dL Creatinine (0.52-1.04) mg/dL Glucose (74-99) mg/dL POC Glucose (mg/dL) 241 H 142 H 203 H (75-99) mg/dL TIBC (228-460) ug/dL Ferritin (10.0-291.0) ng/mL Total Bilirubin (0.2-1.3) mg/dL AST (14-36) U/L ALT (4-34) U/L Alkaline Phosphatase (38-126) U/L Albumin (3.5-5.0) g/dL Microbiology - Last 24 Hours (Table) 07/15/20 14:35 Urine Culture - Preliminary Urine,Voided Assessment and Plan Assessment: COPD stable not in exacerbation End-stage renal disease on hemodialysis Chest pain cardiovascular service is evaluating Acute pulmonary edema combination of hypertensive heart failure renal failure Abdominal aortic aneurysm Chronic anemia Plan: Continue hemodialysis as planned Continue bronchodilators Increase activity as tolerated Further recommendations pending plan of care as per clinical response the patient Time with Patient: Greater than 30
--- NOTE | 2020-07-16 11:53 | P.PN ---
Subjective Patient is seen in follow-up for end-stage renal disease. She is maintained on hemodialysis on Thursday schedule. No chest pain or shortness of breath at this time. Hemodynamically stable. No vomiting or diarrhea. Vital signs are stable. General: The patient appeared well nourished and normally developed. HEENT: Head exam is unremarkable. Neck is without jugular venous distension. LUNGS: Breath sounds decreased. HEART: Rate and Rhythm are regular. ABDOMEN: Soft, nontender. EXTREMITITES: No clubbing, cyanosis, or edema. Objective - Vital Signs Vital signs: Vital Signs Temp 97.5 F L 07/16/20 08:00 Pulse 84 07/16/20 08:00 Resp 16 07/16/20 08:00 BP 158/70 07/16/20 08:00 Pulse Ox 99 07/16/20 08:00 Intake & Output 07/15/20 07/16/20 07/16/20 18:59 06:59 18:59 Intake Total 718 120 Output Total 550 Balance 168 120 Weight 87.9 kg Intake: Oral 718 120 Output: Urine 550 Other: Voiding Method Toilet Toilet Toilet # Voids 3 1 1 - Labs CBC & Chem 7: 07/15/20 11:54 07/15/20 11:54 Labs: Abnormal Lab Results - Last 24 Hours (Table) 07/15/20 07/15/20 07/15/20 Range/Units 11:54 11:54 12:10 RBC 3.64 L (3.80-5.40) m/uL Hgb 10.7 L (11.4-16.0) gm/dL Hct 31.8 L (34.0-46.0) % RDW 17.6 H (11.5-15.5) % Sodium 133 L (137-145) mmol/L Carbon Dioxide 20 L (22-30) mmol/L BUN 32 H (7-17) mg/dL Creatinine 2.93 H (0.52-1.04) mg/dL Glucose 263 H (74-99) mg/dL POC Glucose (mg/dL) 256 H (75-99) mg/dL TIBC 226 L (228-460) ug/dL Ferritin 457.0 H (10.0-291.0) ng/mL Total Bilirubin 5.0 H (0.2-1.3) mg/dL AST 81 H (14-36) U/L ALT 89 H (4-34) U/L Alkaline Phosphatase 793 H (38-126) U/L Albumin 3.0 L (3.5-5.0) g/dL 07/15/20 07/15/20 07/16/20 Range/Units 16:52 19:52 06:57 RBC (3.80-5.40) m/uL Hgb (11.4-16.0) gm/dL Hct (34.0-46.0) % RDW (11.5-15.5) % Sodium (137-145) mmol/L Carbon Dioxide (22-30) mmol/L BUN (7-17) mg/dL Creatinine (0.52-1.04) mg/dL Glucose (74-99) mg/dL POC Glucose (mg/dL) 241 H 142 H 203 H (75-99) mg/dL TIBC (228-460) ug/dL Ferritin (10.0-291.0) ng/mL Total Bilirubin (0.2-1.3) mg/dL AST (14-36) U/L ALT (4-34) U/L Alkaline Phosphatase (38-126) U/L Albumin (3.5-5.0) g/dL Microbiology - Last 24 Hours (Table) 07/15/20 14:35 Urine Culture - Preliminary Urine,Voided Assessment and Plan Plan: Assessment: 1. End-stage renal disease maintained on hemodialysis on Thursday schedule. 2. Metabolic acidosis secondary to chronic kidney disease. Expect improvement postdialysis. 3. Insulin-dependent diabetes mellitus. 4. Hypertension with chronic kidney disease. Stable. 5. History of COPD. Plan: Hemodialysis today.
--- NOTE | 2020-07-16 12:22 | P.PN ---
Progress Note - Text Progress Note Date: 07/16/20 Patient seen and examined at the bedside. No acute changes through the night. Patient states her leg pain is un-changed. She is able to freely move bilateral lower extremities without difficulty. She is to undergo hemodialysis today. She is on a Thursday, Thursday schedule. Her nausea and vomiting has improved. Patient is awake and alert. HEENT is normal. Palpable radial pulses bilaterally. Left upper extremity fistula with palpable thrill. Tunneled dialysis catheter intact. Extremities are warm to the touch. Assessment: 1. End-stage renal disease on dialysis 2. Peripheral arterial disease, history of arterial occlusion with thromboliasis 3. Nausea and vomiting, chronic 4. Chest pain Plan: No acute vascular surgical interventions indicated. She will be followed up as an outpatient to obtain arterial Dopplers of her lower extremities as previously ordered, as well as evaluation of her previous created fistula in planning for a second stage transposition. Okay for discharge from a vascular surgery standpoint when medically clear. Patient to follow-up with Dr. Velázquez in the office. The above dictated assessment and findings were discussed with Dr. Velázquez. The impression and plan of care have been directed as dictated.
[2020-07-16 12:53] LABS: Glucose,Whole Blood 288 mg/dL (75-99)
[2020-07-16] MEDS: diphenhydrAMINE 2% CREAM 28.4 GM TUBE TOPICAL PRN ×2 (13:58→21:15)
[2020-07-16 14:54] LABS: Albumin 2.8 g/dL (3.5-5.0); Calcium 8.3 mg/dL (8.4-10.2); Potassium 4.2 mmol/L (3.5-5.1); Total Bilirubin 4.8 mg/dL (0.2-1.3); Total Protein 5.8 g/dL (6.3-8.2)
[2020-07-16] MEDS ORDERED: diphenhydrAMINE 50 MG CAP PO PRN (17:01)
[2020-07-16 17:44] LABS: Glucose,Whole Blood 187 mg/dL (75-99)
[2020-07-16 20:30] LABS: Glucose,Whole Blood 255 mg/dL (75-99)
--- NOTE | 2020-07-16 20:58 | PN ---
PROGRESS NOTE This patient is a 50-year-old white female who has severe itching still and pruritus, being treated with Diflucan for vaginal infection. Reglan is given for gastroparesis. Awaiting GI recommendations for a liver ultrasound which will be done tomorrow. Sodium is 132, potassium is 4.2, CO2 is 20, creatinine is 2.99, BUN 39, bilirubin is 4.8. AST and ALT are 68 and 73. Albumin is 2.8. ASSESSMENT: 1. Pruritus secondary to liver failure from unclear etiology. 2. Renal failure. 3. Liver failure, possibly cirrhosis. Wait for GI recommendations and liver ultrasound in the morning. Continue with dialysis. 1. Diastolic congestive heart failure. 2. Chronic obstructive pulmonary disease. Continue current treatments. Prognosis guarded. MMODL / IJN: [id number] /
[2020-07-16] MEDS: FLUCONAZOLE 150 MG TAB PO SCH (21:06)
[2020-07-16] MEDS: LORazepam 0.5 MG TAB PO SCH (21:09)
[2020-07-17] MEDS: NITROGLYCERIN OINT 1 INCH/GM PACKET TOPICAL SCH ×4 (03:02→23:05)
[2020-07-17] MEDS: diphenhydrAMINE 25 MG CAP PO PRN ×4 (03:31→22:11)
[2020-07-17] MEDS: HYDROcodone/APAP 5-325MG 1 EACH TAB PO PRN ×4 (03:35→22:11)
[2020-07-17 06:26] LABS: Glucose,Whole Blood 359 mg/dL (75-99)
[2020-07-17] MEDS: PANTOPRAZOLE 40 MG TABLET PO SCH ×2 (06:38→18:06)
[2020-07-17] MEDS: INSULIN ASPART (NovoLOG) 100 UNIT/ML VIAL SQ SCH ×7 (06:39→20:34)
[2020-07-17 07:07] LABS: Anisocytosis Slight; Basophils # (A) 0.1 k/uL (0-0.2); Basophils % (A) 1 %; Eosinophils # (A) 0.1 k/uL (0-0.7); Eosinophils % (A) 2 %; HCT 28.8 % (34.0-46.0); HGB 9.3 gm/dL (11.4-16.0); Lymphocytes # (A) 0.8 k/uL (1.0-4.8); Lymphocytes % (A) 9 %; MCH 28.4 pg (25.0-35.0); MCHC 32.5 g/dL (31.0-37.0); MCV 87.4 fL (80.0-100.0); Mean Platelet Volume 9.7; Monocytes # (A) 0.5 k/uL (0-1.0); Monocytes % (A) 5 %; Neutrophils # (A) 7.2 k/uL (1.3-7.7); Neutrophils % (A) 82 %; Platelet Count 272 k/uL (150-450); RBC 3.29 m/uL (3.80-5.40); RDW 17.8 % (11.5-15.5); WBC 8.8 k/uL (3.8-10.6)
[2020-07-17 07:25] LABS: Albumin 2.9 g/dL (3.5-5.0); Calcium 8.5 mg/dL (8.4-10.2); Potassium 4.5 mmol/L (3.5-5.1); Total Bilirubin 4.2 mg/dL (0.2-1.3); Total Protein 5.9 g/dL (6.3-8.2)
--- NOTE | 2020-07-17 07:54 | US ---
EXAMINATION TYPE: US liver DATE OF EXAM: 07/17/2020 COMPARISON: CT 2 days ago. CLINICAL HISTORY: elevated LFTS. Elevated LFT's, abnormal CT EXAM MEASUREMENTS: Liver Length: 24.1 cm Gallbladder Wall: 0.4 cm CBD: 0.4 cm Right Kidney: 9.9 x 4.5 x 4.8 cm Pancreas: wnl Liver: Enlarged, heterogeneous Gallbladder: Contracted with calculi, wall thickened/ Pt states she is NPO Evidence for sonographic Richards's sign: No CBD: wnl Right Kidney: wnl, lower pole gassed out Visualized pancreas is unremarkable on images saved. Visualized liver is heterogeneous without intrah epatic mass or intrahepatic ductal dilatation. Hepatomegaly redemonstrated. Curvilinear shadowing foc us that level gallbladder fossa is consistent with stone filled contracted gallbladder as seen on CT 2 days earlier. Contracted gallbladder consistent with patient's fasting state. IMPRESSION: Redemonstration of hepatomegaly and heterogeneous appearance of liver could be on the bas is of diffuse fatty infiltration and/or underlying hepatocellular disease. No obvious focal mass or d uctal dilatation noted.
[2020-07-17] MEDS: hydrOXYzine HCL 10 MG TAB PO SCH ×3 (08:07→19:52)
[2020-07-17] MEDS: amLODIPine 5 MG TAB PO SCH ×2 (08:14→20:34)
[2020-07-17] MEDS: CLOPIDOGREL 75 MG TAB PO SCH (08:14)
[2020-07-17] MEDS: hydrALAZINE HCL 50 MG TAB PO SCH ×3 (08:14→22:11)
[2020-07-17] MEDS: ASPIRIN 325 MG TAB PO SCH (08:14)
[2020-07-17] MEDS: FLUCONAZOLE 150 MG TAB PO SCH (08:14)
[2020-07-17] MEDS: METOCLOPRAMIDE 5 MG TAB PO SCH ×3 (08:14→18:06)
[2020-07-17] MEDS: LORATADINE 10 MG TAB PO SCH (08:15)
[2020-07-17] MEDS: METOPROLOL SUCCINATE (ER) 50 MG TAB.ER.24H PO SCH (08:15)
[2020-07-17] MEDS: LOSARTAN 50 MG TAB PO SCH ×2 (08:15→20:34)
[2020-07-17] MEDS: diphenhydrAMINE 2% CREAM 28.4 GM TUBE TOPICAL PRN (08:17)
--- NOTE | 2020-07-17 08:20 | P.PN ---
Subjective Progress Note Date: 07/16/20 Principal diagnosis: Elevated liver enzymes, chronic nausea and vomiting Patient is seen lying in bed tolerating diet. No nausea or vomiting today. She is receiving hemodialysis. Objective - Vital Signs Vital signs: Vital Signs Temp 98.0 F 07/16/20 12:00 Pulse 77 07/16/20 12:00 Resp 16 07/16/20 12:00 BP 160/73 07/16/20 12:00 Pulse Ox 95 07/16/20 12:00 Intake & Output 07/15/20 07/16/20 07/16/20 18:59 06:59 18:59 Intake Total 718 120 Output Total 550 Balance 168 120 Weight 87.9 kg Intake: Oral 718 120 Output: Urine 550 Other: Voiding Method Toilet Toilet Toilet # Voids 3 1 1 - Exam On physical examination, patient appears comfortable in no apparent distress. HEAD: Normocephalic, atraumatic. EYES: No scleral icterus. No conjunctival injection. MOUTH: No lesions, tongue midline. NECK: Trachea midline, no gross abnormalities. ABDOMEN: Soft, obese. Bowel sounds are positive. No organomegaly. No guarding or rigidity. EXTREMITIES: No pedal edema. SKIN: No rashes, no jaundice. NEUROLOGIC: Alert and oriented x3. No focal deficits. - Labs CBC & Chem 7: 07/17/20 06:41 07/17/20 06:41 Labs: Abnormal Lab Results - Last 24 Hours (Table) 07/15/20 07/15/20 07/15/20 Range/Units 11:54 16:52 19:52 Sodium (137-145) mmol/L Carbon Dioxide (22-30) mmol/L BUN (7-17) mg/dL Creatinine (0.52-1.04) mg/dL Glucose (74-99) mg/dL POC Glucose (mg/dL) 241 H 142 H (75-99) mg/dL Calcium (8.4-10.2) mg/dL TIBC 226 L (228-460) ug/dL Ferritin 457.0 H (10.0-291.0) ng/mL Total Bilirubin (0.2-1.3) mg/dL AST (14-36) U/L ALT (4-34) U/L Alkaline Phosphatase (38-126) U/L Total Protein (6.3-8.2) g/dL Albumin (3.5-5.0) g/dL 07/16/20 07/16/20 07/16/20 Range/Units 06:57 12:52 14:33 Sodium 132 L (137-145) mmol/L Carbon Dioxide 20 L (22-30) mmol/L BUN 39 H (7-17) mg/dL Creatinine 2.99 H (0.52-1.04) mg/dL Glucose 262 H (74-99) mg/dL POC Glucose (mg/dL) 203 H 288 H (75-99) mg/dL Calcium 8.3 L (8.4-10.2) mg/dL TIBC (228-460) ug/dL Ferritin (10.0-291.0) ng/mL Total Bilirubin 4.8 H (0.2-1.3) mg/dL AST 68 H (14-36) U/L ALT 73 H (4-34) U/L Alkaline Phosphatase 715 H (38-126) U/L Total Protein 5.8 L (6.3-8.2) g/dL Albumin 2.8 L (3.5-5.0) g/dL Microbiology - Last 24 Hours (Table) 07/15/20 14:35 Urine Culture - Preliminary Urine,Voided Assessment and Plan (1) Elevated liver enzymes Narrative/Plan: 50-year-old female with multiple medical comorbidities including end-stage renal disease on hemodialysis, was seen at the hospital in consult placed for elevated liver enzymes. Patient had market elevation in liver enzymes and predominantly a cholestatic pattern with total bilirubin 5.0, alkaline phosphatase 793, AST 81 and ALT 89. No prior history of elevated liver enzymes or liver disease. Patient has computed tomography scan of the abdomen which showed fatty infiltration of the liver and no evidence of intra-or extrahepatic biliary dilation. Liver serology ordered and negative to date including viral hepatitis panel. Suspicion is for possible drug-induced liver injury is a patient had been treated with antibiotics approximately 2 weeks prior to presentation. Liver enzymes remaining stable. Current Visit: Yes Status: Acute Code(s): R74.8 - ABNORMAL LEVELS OF OTHER SERUM ENZYMES SNOMED Code(s): 553360962 (2) Nausea and vomiting Narrative/Plan: Chronic complaints of nausea and vomiting, improving. Current Visit: No Status: Acute Code(s): R11.2 - NAUSEA WITH VOMITING, UN SPECIFIED SNOMED Code(s): 84719053 Plan: Supportive care Okay for diet as tolerated Continue to monitor CBC, BMP, LFTs Full liver serologies ordered and negative to date including negative and he, ceruloplasmin, alpha-1 antitrypsin an acute viral hepatitis testing Ultrasound of the abdomen ordered Computed tomography scan of the abdomen reviewed with fatty infiltration of liver with no intra-or extrahepatic biliary dilation noted Suspicion is for possible drug-induced liver injury given recent antibiotic therapy Patient has follow-up scheduled with the GI clinic for the beginning of July Thank you for allowing us to participate in the care of the patient
--- NOTE | 2020-07-17 10:10 | P.PN ---
Subjective Patient is seen in follow-up for end-stage renal disease. She is maintained on hemodialysis on Thursday schedule. No chest pain or shortness of breath at this time. Hemodynamically stable. No vomiting or diarrhea. Complains of generalized itching. Vital signs are stable. General: The patient appeared well nourished and normally developed. HEENT: Head exam is unremarkable. Neck is without jugular venous distension. LUNGS: Breath sounds decreased. HEART: Rate and Rhythm are regular. ABDOMEN: Soft, nontender. EXTREMITITES: No clubbing, cyanosis, or edema. Objective - Vital Signs Vital signs: Vital Signs Temp 97.9 F 07/17/20 03:37 Pulse 84 07/17/20 03:41 Resp 18 07/17/20 03:41 BP 118/70 07/17/20 03:37 Pulse Ox 98 07/17/20 03:37 Intake & Output 07/16/20 07/17/20 07/17/20 18:59 06:59 18:59 Intake Total 1020 360 Output Total 4000 220 Balance -2980 -220 360 Weight 91.5 kg Intake: Oral 1020 360 Output: Urine 220 Hemodialysis 4000 Other: Voiding Method Toilet Toilet # Voids 1 1 # Bowel Movements 1 - Labs CBC & Chem 7: 07/17/20 06:41 07/17/20 06:41 Labs: Abnormal Lab Results - Last 24 Hours (Table) 07/16/20 07/16/20 07/16/20 Range/Units 12:52 14:33 17:42 RBC (3.80-5.40) m/uL Hgb (11.4-16.0) gm/dL Hct (34.0-46.0) % RDW (11.5-15.5) % Lymphocytes # (1.0-4.8) k/uL Sodium 132 L (137-145) mmol/L Carbon Dioxide 20 L (22-30) mmol/L BUN 39 H (7-17) mg/dL Creatinine 2.99 H (0.52-1.04) mg/dL Glucose 262 H (74-99) mg/dL POC Glucose (mg/dL) 288 H 187 H (75-99) mg/dL Calcium 8.3 L (8.4-10.2) mg/dL Total Bilirubin 4.8 H (0.2-1.3) mg/dL AST 68 H (14-36) U/L ALT 73 H (4-34) U/L Alkaline Phosphatase 715 H (38-126) U/L Total Protein 5.8 L (6.3-8.2) g/dL Albumin 2.8 L (3.5-5.0) g/dL 07/16/20 07/17/20 07/17/20 Range/Units 20:28 06:25 06:41 RBC 3.29 L (3.80-5.40) m/uL Hgb 9.3 L (11.4-16.0) gm/dL Hct 28.8 L (34.0-46.0) % RDW 17.8 H (11.5-15.5) % Lymphocytes # 0.8 L (1.0-4.8) k/uL Sodium (137-145) mmol/L Carbon Dioxide (22-30) mmol/L BUN (7-17) mg/dL Creatinine (0.52-1.04) mg/dL Glucose (74-99) mg/dL POC Glucose (mg/dL) 255 H 359 H (75-99) mg/dL Calcium (8.4-10.2) mg/dL Total Bilirubin (0.2-1.3) mg/dL AST (14-36) U/L ALT (4-34) U/L Alkaline Phosphatase (38-126) U/L Total Protein (6.3-8.2) g/dL Albumin (3.5-5.0) g/dL 07/17/20 Range/Units 06:41 RBC (3.80-5.40) m/uL Hgb (11.4-16.0) gm/dL Hct (34.0-46.0) % RDW (11.5-15.5) % Lymphocytes # (1.0-4.8) k/uL Sodium 134 L (137-145) mmol/L Carbon Dioxide (22-30) mmol/L BUN 30 H (7-17) mg/dL Creatinine 2.64 H (0.52-1.04) mg/dL Glucose 309 H (74-99) mg/dL POC Glucose (mg/dL) (75-99) mg/dL Calcium (8.4-10.2) mg/dL Total Bilirubin 4.2 H (0.2-1.3) mg/dL AST 68 H (14-36) U/L ALT 76 H (4-34) U/L Alkaline Phosphatase 735 H (38-126) U/L Total Protein 5.9 L (6.3-8.2) g/dL Albumin 2.9 L (3.5-5.0) g/dL Assessment and Plan Plan: Assessment: 1. End-stage renal disease maintained on hemodialysis on Thursday schedule. 2. Metabolic acidosis secondary to chronic kidney disease. Improved postdialysis. 3. Insulin-dependent diabetes mellitus. 4. Hypertension with chronic kidney disease. Stable. 5. History of COPD. 6. Generalized pruritus. Possibly related to elevated bilirubin. I will rule out hyperphosphatemia. Plan: Hemodialysis tomorrow. Check phosphorus level. Stable to be discharged home from nephrology standpoint.
--- NOTE | 2020-07-17 11:25 | P.PN ---
Subjective Progress Note Date: 07/17/20 Principal diagnosis: COPD stable not in exacerbation End-stage renal disease on hemodialysis Chest pain cardiovascular service is evaluating Acute pulmonary edema combination of hypertensive heart failure renal failure Abdominal aortic aneurysm Chronic anemia 07/17/2020, patient seen eval examined during rounds labs reviewed medications reviewed him a denies any chest pain or shortness of breath, status post hemodialysis yesterday on Thursday schedule, ultrasound of the liver reveals hepatomegaly fatty infiltration 07/16/2020, patient seen eval examined during the rounds sitting upright in the bed breathing comfortably at room air, denies any chest pain or shortness of breath on activity and exertion however mild shortness of breaths present, patient is the do for dialysis, This is a pleasant 50-year-old -[place] female past medical history significant for coronary artery disease status post bypass grafting, chronic diastolic heart failure end-stage renal disease on hemodialysis, peripheral artery disease the left leg, hypertension, dyslipidemia, COPD, diabetes mellitus and chronic nicotine dependence. She presented to the hospital due to midsternal chest pain without radiation, nausea and vomiting, patient complains of shortness of breath which is chronic but also has shortness of breath with minimal activity. She states she doesn't usually wear up a flight of stairs. Walking to the bathroom she sometimes has chest pain it just depends. She denies any sweats, no lightheadedness or dizziness. At the time of evaluation, patient is complaining of feeling tired. She states she has been chronically short of breath. She continues to have chest pressure in the midsternal area. Initial blood pressure was 190/85. Troponins 0.025, 0.026 on 2 draws. 3.3, chloride 93, CO2 25, BUN 26 and creatinine 2.18, blood sugar 453. Total bilirubin 4.8, AST 70, ALT 84, alk phosphatase 696. Cholesterol 249, triglycerides 230, LDL 170, HDL 33. EKG is sinus rhythm, right bundle branch block. Patient was given morphine and [place] in the emergency center for chest pain. Chest x-ray reveals cardiomegaly, pulmonary vascular congestion and pulmonary edema. Objective - Vital Signs Vital signs: Vital Signs Temp 97.5 F L 07/17/20 08:00 Pulse 89 07/17/20 08:00 Resp 18 07/17/20 08:00 BP 176/77 07/17/20 08:00 Pulse Ox 98 07/17/20 08:00 Intake & Output 07/16/20 07/17/20 07/17/20 18:59 06:59 18:59 Intake Total 1020 360 Output Total 4000 220 Balance -2980 -220 360 Weight 91.5 kg Intake: Oral 1020 360 Output: Urine 220 Hemodialysis 4000 Other: Voiding Method Toilet Toilet Toilet # Voids 1 1 # Bowel Movements 1 - Exam - Constitutional General appearance: average body habitus, cooperative, disheveled - EENT Eyes: EOMI, PERRLA ENT: normal oropharynx Ears: bilateral: normal - Neck Neck: normal ROM Carotids: bilateral: upstroke normal Thyroid: bilateral: normal size - Respiratory Respiratory: bilateral: CTA - Cardiovascular Rhythm: regular Heart sounds: normal: S1, S2 - Gastrointestinal General gastrointestinal: decreased bowel sounds, distended, soft - Integumentary Integumentary: decreased turgor - Neurologic Neurologic: CNII-XII intact - Musculoskeletal Musculoskeletal: gait normal, generalized weakness, strength equal bilaterally - Psychiatric Psychiatric: A&O x's 3, appropriate affect, intact judgment & insight - Labs CBC & Chem 7: 07/17/20 06:41 07/17/20 06:41 Labs: Abnormal Lab Results - Last 24 Hours (Table) 07/16/20 07/16/20 07/16/20 Range/Units 12:52 14:33 17:42 RBC (3.80-5.40) m/uL Hgb (11.4-16.0) gm/dL Hct (34.0-46.0) % RDW (11.5-15.5) % Lymphocytes # (1.0-4.8) k/uL Sodium 132 L (137-145) mmol/L Carbon Dioxide 20 L (22-30) mmol/L BUN 39 H (7-17) mg/dL Creatinine 2.99 H (0.52-1.04) mg/dL Glucose 262 H (74-99) mg/dL POC Glucose (mg/dL) 288 H 187 H (75-99) mg/dL Calcium 8.3 L (8.4-10.2) mg/dL Total Bilirubin 4.8 H (0.2-1.3) mg/dL AST 68 H (14-36) U/L ALT 73 H (4-34) U/L Alkaline Phosphatase 715 H (38-126) U/L Total Protein 5.8 L (6.3-8.2) g/dL Albumin 2.8 L (3.5-5.0) g/dL 07/16/20 07/17/20 07/17/20 Range/Units 20:28 06:25 06:41 RBC 3.29 L (3.80-5.40) m/uL Hgb 9.3 L (11.4-16.0) gm/dL Hct 28.8 L (34.0-46.0) % RDW 17.8 H (11.5-15.5) % Lymphocytes # 0.8 L (1.0-4.8) k/uL Sodium (137-145) mmol/L Carbon Dioxide (22-30) mmol/L BUN (7-17) mg/dL Creatinine (0.52-1.04) mg/dL Glucose (74-99) mg/dL POC Glucose (mg/dL) 255 H 359 H (75-99) mg/dL Calcium (8.4-10.2) mg/dL Total Bilirubin (0.2-1.3) mg/dL AST (14-36) U/L ALT (4-34) U/L Alkaline Phosphatase (38-126) U/L Total Protein (6.3-8.2) g/dL Albumin (3.5-5.0) g/dL 07/17/20 Range/Units 06:41 RBC (3.80-5.40) m/uL Hgb (11.4-16.0) gm/dL Hct (34.0-46.0) % RDW (11.5-15.5) % Lymphocytes # (1.0-4.8) k/uL Sodium 134 L (137-145) mmol/L Carbon Dioxide (22-30) mmol/L BUN 30 H (7-17) mg/dL Creatinine 2.64 H (0.52-1.04) mg/dL Glucose 309 H (74-99) mg/dL POC Glucose (mg/dL) (75-99) mg/dL Calcium (8.4-10.2) mg/dL Total Bilirubin 4.2 H (0.2-1.3) mg/dL AST 68 H (14-36) U/L ALT 76 H (4-34) U/L Alkaline Phosphatase 735 H (38-126) U/L Total Protein 5.9 L (6.3-8.2) g/dL Albumin 2.9 L (3.5-5.0) g/dL Assessment and Plan Assessment: COPD stable not in exacerbation End-stage renal disease on hemodialysis Chest pain cardiovascular service is evaluating Acute pulmonary edema combination of hypertensive heart failure renal failure Abdominal aortic aneurysm Chronic anemia Hepatomegaly Plan: Continue hemodialysis as planned Continue bronchodilators Increase activity as tolerated Further recommendations pending plan of care as per clinical response the patient Time with Patient: Greater than 30
[2020-07-17 12:44] LABS: Glucose,Whole Blood 294 mg/dL (75-99)
--- NOTE | 2020-07-17 12:54 | P.PN ---
<Marissa Mclean - Last Filed: 07/17/20 12:58> Subjective Progress Note Date: 07/17/20 Patient was seen for Elevated liver enzymes, chronic nausea and vomiting. She was seen and examined lying in bed without any acute distress. She received her hemodialysis yesterday. Denies any nausea or vomiting, abdominal pain, s hortness of breath or chest pain. Patient underwent ultrasound of the liver which showed redemonstration of hepatomegaly and heterogeneous appearance of the liver could be on the basis of diffuse fatty infiltration and/or underlying hepatocellular disease. No obvious focal mass or ductal dilation noted. Objective - Vital Signs Vital signs: Vital Signs Temp 97.5 F L 07/17/20 08:00 Pulse 84 07/17/20 11:28 Resp 16 07/17/20 11:27 BP 105/85 07/17/20 11:27 Pulse Ox 98 07/17/20 11:27 Intake & Output 07/16/20 07/17/20 07/17/20 18:59 06:59 18:59 Intake Total 1020 360 Output Total 4000 220 Balance -2980 -220 360 Weight 91.5 kg 91.5 kg Intake: Oral 1020 360 Output: Urine 220 Hemodialysis 4000 Other: Voiding Method Toilet Toilet Toilet # Voids 1 1 # Bowel Movements 1 - Exam On physical examination, patient appears comfortable in no apparent distress. HEAD: Normocephalic, atraumatic. EYES: No scleral icterus. No conjunctival injection. MOUTH: No lesions, tongue midline. NECK: Trachea midline, no gross abnormalities. ABDOMEN: Soft, obese. Bowel sounds are positive. No organomegaly. No guarding or rigidity. EXTREMITIES: No pedal edema. SKIN: No rashes, no jaundice. NEUROLOGIC: Alert and oriented x3. No focal deficits. - Labs CBC & Chem 7: 07/17/20 06:41 07/17/20 06:41 Labs: Abnormal Lab Results - Last 24 Hours (Table) 07/16/20 07/16/20 07/16/20 Range/Units 12:52 14:33 17:42 RBC (3.80-5.40) m/uL Hgb (11.4-16.0) gm/dL Hct (34.0-46.0) % RDW (11.5-15.5) % Lymphocytes # (1.0-4.8) k/uL Sodium 132 L (137-145) mmol/L Carbon Dioxide 20 L (22-30) mmol/L BUN 39 H (7-17) mg/dL Creatinine 2.99 H (0.52-1.04) mg/dL Glucose 262 H (74-99) mg/dL POC Glucose (mg/dL) 288 H 187 H (75-99) mg/dL Calcium 8.3 L (8.4-10.2) mg/dL Total Bilirubin 4.8 H (0.2-1.3) mg/dL AST 68 H (14-36) U/L ALT 73 H (4-34) U/L Alkaline Phosphatase 715 H (38-126) U/L Total Protein 5.8 L (6.3-8.2) g/dL Albumin 2.8 L (3.5-5.0) g/dL 07/16/20 07/17/20 07/17/20 Range/Units 20:28 06:25 06:41 RBC 3.29 L (3.80-5.40) m/uL Hgb 9.3 L (11.4-16.0) gm/dL Hct 28.8 L (34.0-46.0) % RDW 17.8 H (11.5-15.5) % Lymphocytes # 0.8 L (1.0-4.8) k/uL Sodium (137-145) mmol/L Carbon Dioxide (22-30) mmol/L BUN (7-17) mg/dL Creatinine (0.52-1.04) mg/dL Glucose (74-99) mg/dL POC Glucose (mg/dL) 255 H 359 H (75-99) mg/dL Calcium (8.4-10.2) mg/dL Total Bilirubin (0.2-1.3) mg/dL AST (14-36) U/L ALT (4-34) U/L Alkaline Phosphatase (38-126) U/L Total Protein (6.3-8.2) g/dL Albumin (3.5-5.0) g/dL 07/17/20 Range/Units 06:41 RBC (3.80-5.40) m/uL Hgb (11.4-16.0) gm/dL Hct (34.0-46.0) % RDW (11.5-15.5) % Lymphocytes # (1.0-4.8) k/uL Sodium 134 L (137-145) mmol/L Carbon Dioxide (22-30) mmol/L BUN 30 H (7-17) mg/dL Creatinine 2.64 H (0.52-1.04) mg/dL Glucose 309 H (74-99) mg/dL POC Glucose (mg/dL) (75-99) mg/dL Calcium (8.4-10.2) mg/dL Total Bilirubin 4.2 H (0.2-1.3) mg/dL AST 68 H (14-36) U/L ALT 76 H (4-34) U/L Alkaline Phosphatase 735 H (38-126) U/L Total Protein 5.9 L (6.3-8.2) g/dL Albumin 2.9 L (3.5-5.0) g/dL Assessment and Plan Assessment: 1. Elevated liver enzymes: This is a 50-year-old female with multiple medical comorbidities including end-stage renal disease on hemodialysis, was seen at the hospital consult placed for elevated liver enzymes. Patient had marked elevation of liver enzymes in predominantly a cholestatic pattern with total bilirubin 5.0 alkaline phosphatase 793, AST 81 and ALT 89.Today's labs total bili 4.2, alkaline phosphatase 735, AST 68, ALT 76. No prior history of elevated liver enzymes or liver disease. Patient has CT scan of the abdomen which showed fatty infiltration of the liver and no evidence of intrahepatic b iliary dilation. The ultrasound of the liver again showed hepatomegaly with heterogeneous appearance suggestive of fatty liver, with no ductal dilation. Neurology were ordered and negative to date including viral hepatitis panel. Suspicion is for possible drug-induced liver injury as the patient had been treated with antibiotics approximately 2 weeks prior to presentation. Liver enzymes remain stable 2. Nausea and vomiting: Patient has chronic complaints of nausea and vomiting, which have been improving. Plan: 1. Supportive care 2. Okay for diet as tolerated 3. Continue to monitor CBC, BMP, LFTs 4. Full liver serologies ordered and negative to date including negative WINSOME, cerulaplasm, alpha-1 anti-trypsin and acute viral hepatitis 5. Computed tomography scan of the abdomen reviewed with fatty infiltration of liver and no intra-or extrahepatic biliary dilation noted Ultrasound of the liver shows hepatomegaly, heterogeneous appearance consistent with fatty infiltration and/or underlying hepatocellular disease. No obvious focal mass or ductal dilation noted. 6. Suspicion is for possible drug-induced liver injury given recent antibiotic therapy Patient has follow-up scheduled appointment with the GI clinic for the beginning of July Thank you for allowing us participate in the care of the patient The impression and plan of care has been dictated as directed. Dr. Nolen I performed a history and examination of this patient, discussed the same with the dictator. I agree with the dictator's note ,documented as a scribe. Any additional findings or plans will be noted. <Rah Nolen - Last Filed: 07/18/20 06:53> Objective - Vital Signs Vital signs: Vital Signs Temp 97.7 F 07/18/20 04:00 Pulse 87 07/18/20 04:00 Resp 16 07/18/20 04:00 BP 93/68 07/18/20 04:00 Pulse Ox 99 07/18/20 04:00 Intake & Output 07/17/20 07/17/20 07/18/20 06:59 18:59 06:59 Intake Total 840 300 Output Total 220 200 Balance -220 640 300 Weight 91.5 kg 91.5 kg 90.9 kg Intake: Oral 840 300 Output: Urine 220 200 Other: Voiding Method Toilet Toilet Toilet # Voids 1 0 - Labs CBC & Chem 7: 07/17/20 06:41 07/17/20 06:41 Labs: Abnormal Lab Results - Last 24 Hours (Table) 07/17/20 07/17/20 07/17/20 Range/Units 06:41 06:41 12:41 RBC 3.29 L (3.80-5.40) m/uL Hgb 9.3 L (11.4-16.0) gm/dL Hct 28.8 L (34.0-46.0) % RDW 17.8 H (11.5-15.5) % Lymphocytes # 0.8 L (1.0-4.8) k/uL Sodium 134 L (137-145) mmol/L BUN 30 H (7-17) mg/dL Creatinine 2.64 H (0.52-1.04) mg/dL Glucose 309 H (74-99) mg/dL POC Glucose (mg/dL) 294 H (75-99) mg/dL Total Bilirubin 4.2 H (0.2-1.3) mg/dL AST 68 H (14-36) U/L ALT 76 H (4-34) U/L Alkaline Phosphatase 735 H (38-126) U/L Total Protein 5.9 L (6.3-8.2) g/dL Albumin 2.9 L (3.5-5.0) g/dL 07/17/20 07/17/20 07/17/20 Range/Units 14:23 17:34 20:26 RBC (3.80-5.40) m/uL Hgb (11.4-16.0) gm/dL Hct (34.0-46.0) % RDW (11.5-15.5) % Lymphocytes # (1.0-4.8) k/uL Sodium (137-145) mmol/L BUN (7-17) mg/dL Creatinine (0.52-1.04) mg/dL Glucose (74-99) mg/dL POC Glucose (mg/dL) 240 H 237 H 338 H (75-99) mg/dL Total Bilirubin (0.2-1.3) mg/dL AST (14-36) U/L ALT (4-34) U/L Alkaline Phosphatase (38-126) U/L Total Protein (6.3-8.2) g/dL Albumin (3.5-5.0) g/dL 07/18/20 Range/Units 05:59 RBC (3.80-5.40) m/uL Hgb (11.4-16.0) gm/dL Hct (34.0-46.0) % RDW (11.5-15.5) % Lymphocytes # (1.0-4.8) k/uL Sodium (137-145) mmol/L BUN (7-17) mg/dL Creatinine (0.52-1.04) mg/dL Glucose (74-99) mg/dL POC Glucose (mg/dL) 137 H (75-99) mg/dL Total Bilirubin (0.2-1.3) mg/dL AST (14-36) U/L ALT (4-34) U/L Alkaline Phosphatase (38-126) U/L Total Protein (6.3-8.2) g/dL Albumin (3.5-5.0) g/dL Microbiology - Last 24 Hours (Table) 07/15/20 14:35 Urine Culture - Final Urine,Voided Assessment and Plan (1) Elevated liver enzymes Current Visit: Yes Status: Acute Code(s): R74.8 - ABNORMAL LEVELS OF OTHER SERUM ENZYMES SNOMED Code(s): 978336680 (2) Nausea and vomiting Current Visit: No Status: Acute Code(s): R11.2 - NAUSEA WITH VOMITING, UNSPECIFIED SNOMED Code(s): 27755638 Plan: 50-year-old female with multiple medical comorbidities, found to have an acute elevation in her liver enzymes on current medical presentation. Liver serology has been negative. Ultrasound of the abdomen with out any acute findings. Suspicion is for possible drug-induced liver injury in the setting of recent antibiotic therapy. Patient's abdomen soft with only some mild icterus noted on physical exam, no respiratory distress. Plan is to continue to monitor liver enzymes, with consideration for further imaging and possible biopsy if liver enzymes remain elevated either prior to discharge or in follow-up in the outpatient setting.
[2020-07-17 14:25] LABS: Glucose,Whole Blood 240 mg/dL (75-99)
[2020-07-17 17:36] LABS: Glucose,Whole Blood 237 mg/dL (75-99)
[2020-07-17] MEDS: LORazepam 0.5 MG TAB PO SCH (19:52)
[2020-07-17 20:28] LABS: Glucose,Whole Blood 338 mg/dL (75-99)
--- NOTE | 2020-07-17 23:31 | PN ---
PROGRESS NOTE HIDA scan is ordered for elevated liver enzymes. Pruritus is secondary to liver failure. CARDIOVASCULAR: S1, S2. LUNGS: Clear. HEMATOLOGY: Negative Homans. PSYCH: Fair mood and affect. Labs show hemoglobin of 9.3, white count 8.8. Sodium 134, potassium 4.5, BUN is 30, creatinine 2.64. Glucose 200 to 300s. AST 68, ALT 76, alkaline phosphatase 735, total bilirubin 4.2. Unsure why her liver enzymes are high at this point. Liver ultrasound did not show a good reason. Await for HIDA scan tomorrow prior to being discharged. Temperature 97.5, pulse 84, respiratory rate 16 to 18, blood pressure 105/85, O2 98%. ABDOMEN: Soft, nontender. EXTREMITIES: No cyanosis, clubbing, edema. Hemoglobin is 9.3, white count 8.8, BUN is 30, creatinine 2.64. Elevated liver enzymes. Predominantly a cholestatic pattern. Total bilirubin 5, alkaline phosphatase 793, AST 81, ALT is 69. See further orders. Viral hepatitis, alpha 1 antitrypsin, . Negative WINSOME. HIDA scan will be ordered for tomorrow. Unclear etiology. Please see further orders. MMODL / IJN: [id number] /
[2020-07-18] MEDS: NITROGLYCERIN OINT 1 INCH/GM PACKET TOPICAL SCH ×3 (04:07→19:10)
[2020-07-18] MEDS: diphenhydrAMINE 25 MG CAP PO PRN ×2 (05:49→20:59)
[2020-07-18] MEDS: diphenhydrAMINE 2% CREAM 28.4 GM TUBE TOPICAL PRN (05:51)
[2020-07-18 06:01] LABS: Glucose,Whole Blood 137 mg/dL (75-99)
[2020-07-18] MEDS: INSULIN ASPART (NovoLOG) 100 UNIT/ML VIAL SQ SCH ×9 (06:08→21:01)
[2020-07-18 07:15] LABS: Anisocytosis Slight; Basophils % (A) 0 %; Calcium 8.9 mg/dL (8.4-10.2); Eosinophils # (A) 0.2 k/uL (0-0.7); Eosinophils % (A) 2 %; HCT 30.4 % (34.0-46.0); HGB 9.7 gm/dL (11.4-16.0); Lymphocytes % (A) 11 %; MCH 28.3 pg (25.0-35.0); MCV 88.6 fL (80.0-100.0); Mean Platelet Volume 9.2; Monocytes # (A) 0.7 k/uL (0-1.0); Monocytes % (A) 7 %; Neutrophils # (A) 7.4 k/uL (1.3-7.7); Neutrophils % (A) 78 %; Platelet Count 308 k/uL (150-450); Potassium 4.9 mmol/L (3.5-5.1); RBC 3.43 m/uL (3.80-5.40); RDW 17.9 % (11.5-15.5); Total Bilirubin 4.5 mg/dL (0.2-1.3); Total Protein 6.3 g/dL (6.3-8.2); WBC 9.5 k/uL (3.8-10.6)
[2020-07-18] MEDS ORDERED: HEPARIN SODIUM,PORCINE 5,000 UNIT/ML 1 ML VIAL ONE (09:00)
--- NOTE | 2020-07-18 10:10 | P.PN ---
Subjective Patient is seen in follow-up for end-stage renal disease. She is maintained on hemodialysis on Thursday schedule. No chest pain or shortness of breath at this time. Hemodynamically stable. No vomiting or diarrhea. Continues to itch. Scheduled for hepatobiliary scan today. Vital signs are stable. General: The patient appeared well nourished and normally developed. HEENT: Head exam is unremarkable. Neck is without jugular venous distension. LUNGS: Breath sounds decreased. HEART: Rate and Rhythm are regular. ABDOMEN: Soft, nontender. EXTREMITITES: No clubbing, cyanosis, or edema. Objective - Vital Signs Vital signs: Vital Signs Temp 98.3 F 07/18/20 08:21 Pulse 79 07/18/20 08:21 Resp 16 07/18/20 08:21 BP 88/66 07/18/20 08:21 Pulse Ox 96 07/18/20 08:21 Intake & Output 07/17/20 07/18/20 07/18/20 18:59 06:59 18:59 Intake Total 840 300 Output Total 200 Balance 640 300 Weight 91.5 kg 90.9 kg Intake: Oral 840 300 Output: Urine 200 Other: Voiding Method Toilet Toilet Toilet # Voids 0 - Labs CBC & Chem 7: 07/18/20 06:43 07/18/20 06:43 Labs: Abnormal Lab Results - Last 24 Hours (Table) 07/17/20 07/17/20 07/17/20 Range/Units 12:41 14:23 17:34 RBC (3.80-5.40) m/uL Hgb (11.4-16.0) gm/dL Hct (34.0-46.0) % RDW (11.5-15.5) % Sodium (137-145) mmol/L Carbon Dioxide (22-30) mmol/L BUN (7-17) mg/dL Creatinine (0.52-1.04) mg/dL Glucose (74-99) mg/dL POC Glucose (mg/dL) 294 H 240 H 237 H (75-99) mg/dL Total Bilirubin (0.2-1.3) mg/dL AST (14-36) U/L ALT (4-34) U/L Alkaline Phosphatase (38-126) U/L Ammonia (<30) umol/L Albumin (3.5-5.0) g/dL 07/17/20 07/18/20 07/18/20 Range/Units 20:26 05:59 06:43 RBC (3.80-5.40) m/uL Hgb (11.4-16.0) gm/dL Hct (34.0-46.0) % RDW (11.5-15.5) % Sodium (137-145) mmol/L Carbon Dioxide (22-30) mmol/L BUN (7-17) mg/dL Creatinine (0.52-1.04) mg/dL Glucose (74-99) mg/dL POC Glucose (mg/dL) 338 H 137 H (75-99) mg/dL Total Bilirubin (0.2-1.3) mg/dL AST (14-36) U/L ALT (4-34) U/L Alkaline Phosphatase (38-126) U/L Ammonia 38 H (<30) umol/L Albumin (3.5-5.0) g/dL 07/18/20 07/18/20 Range/Units 06:43 06:43 RBC 3.43 L (3.80-5.40) m/uL Hgb 9.7 L (11.4-16.0) gm/dL Hct 30.4 L (34.0-46.0) % RDW 17.9 H (11.5-15.5) % Sodium 134 L (137-145) mmol/L Carbon Dioxide 20 L (22-30) mmol/L BUN 46 H (7-17) mg/dL Creatinine 3.66 H (0.52-1.04) mg/dL Glucose 127 H (74-99) mg/dL POC Glucose (mg/dL) (75-99) mg/dL Total Bilirubin 4.5 H (0.2-1.3) mg/dL AST 67 H (14-36) U/L ALT 76 H (4-34) U/L Alkaline Phosphatase 744 H (38-126) U/L Ammonia (<30) umol/L Albumin 3.0 L (3.5-5.0) g/dL Microbiology - Last 24 Hours (Table) 07/15/20 14:35 Urine Culture - Final Urine,Voided Assessment and Plan Plan: Assessment: 1. End-stage renal disease maintained on hemodialysis on Thursday schedule. 2. Metabolic acidosis secondary to chronic kidney disease. Expect improvement postdialysis. 3. Insulin-dependent diabetes mellitus. 4. Hypertension with chronic kidney disease. Blood pressure on the lower side. 5. History of COPD. 6. Generalized pruritus. Possibly related to elevated bilirubin. Scheduled for hepatobiliary scan today. Phosphorus normal. Plan: Currently seen while undergoing hemodialysis. Next treatment on Thursday. Hold hydralazine and amlodipine for systolic blood pressure less than 120.
[2020-07-18 12:35] LABS: Glucose,Whole Blood 109 mg/dL (75-99)
--- NOTE | 2020-07-18 15:14 | P.PN ---
Subjective Progress Note Date: 07/18/20 Principal diagnosis: Elevated liver enzymes, nausea and vomiting She was seen and examined at bedside. Patient was drowsy, however alert and oriented. Patient is currently receiving hemodialysis. An IV access was obtained, patient will have HIDA scan as ordered later this afternoon. She is tolerating a regular diet. Denies any nausea or vomiting. States the abdominal pain is diffuse, about the same. States her bowel movements have been normal, without melena. Objective - Vital Signs Vital signs: Vital Signs Temp 98.3 F 07/18/20 08:21 Pulse 79 07/18/20 08:21 Resp 16 07/18/20 08:21 BP 88/66 07/18/20 08:21 Pulse Ox 96 07/18/20 08:21 Intake & Output 07/17/20 07/18/20 07/18/20 18:59 06:59 18:59 Intake Total 840 300 Output Total 200 Balance 640 300 Weight 91.5 kg 90.9 kg Intake: Oral 840 300 Output: Urine 200 Other: Voiding Method Toilet Toilet Toilet # Voids 0 - Exam On physical examination, patient appears comfortable in no apparent distress. HEAD: Normocephalic, atraumatic. EYES: No scleral icterus. No conjunctival injection. MOUTH: No lesions, tongue midline. NECK: Trachea midline, no gross abnormalities. ABDOMEN: Soft, obese. Bowel sounds are positive. No organomegaly. No guarding or rigidity. Diffuse tenderness to palpation EXTREMITIES: No pedal edema. SKIN: No rashes, no jaundice. NEUROLOGIC: Alert and oriented x3. No focal deficits. - Labs CBC & Chem 7: 07/18/20 06:43 07/18/20 06:43 Labs: Abnormal Lab Results - Last 24 Hours (Table) 07/17/20 07/17/20 07/17/20 Range/Units 12:41 14:23 17:34 RBC (3.80-5.40) m/uL Hgb (11.4-16.0) gm/dL Hct (34.0-46.0) % RDW (11.5-15.5) % Sodium (137-145) mmol/L Carbon Dioxide (22-30) mmol/L BUN (7-17) mg/dL Creatinine (0.52-1.04) mg/dL Glucose (74-99) mg/dL POC Glucose (mg/dL) 294 H 240 H 237 H (75-99) mg/dL Total Bilirubin (0.2-1.3) mg/dL AST (14-36) U/L ALT (4-34) U/L Alkaline Phosphatase (38-126) U/L Ammonia (<30) umol/L Albumin (3.5-5.0) g/dL 07/17/20 07/18/20 07/18/20 Range/Units 20:26 05:59 06:43 RBC (3.80-5.40) m/uL Hgb (11.4-16.0) gm/dL Hct (34.0-46.0) % RDW (11.5-15.5) % Sodium (137-145) mmol/L Carbon Dioxide (22-30) mmol/L BUN (7-17) mg/dL Creatinine (0.52-1.04) mg/dL Glucose (74-99) mg/dL POC Glucose (mg/dL) 338 H 137 H (75-99) mg/dL Total Bilirubin (0.2-1.3) mg/dL AST (14-36) U/L ALT (4-34) U/L Alkaline Phosphatase (38-126) U/L Ammonia 38 H (<30) umol/L Albumin (3.5-5.0) g/dL 07/18/20 07/18/20 Range/Units 06:43 06:43 RBC 3.43 L (3.80-5.40) m/uL Hgb 9.7 L (11.4-16.0) gm/dL Hct 30.4 L (34.0-46.0) % RDW 17.9 H (11.5-15.5) % Sodium 134 L (137-145) mmol/L Carbon Dioxide 20 L (22-30) mmol/L BUN 46 H (7-17) mg/dL Creatinine 3.66 H (0.52-1.04) mg/dL Glucose 127 H (74-99) mg/dL POC Glucose (mg/dL) (75-99) mg/dL Total Bilirubin 4.5 H (0.2-1.3) mg/dL AST 67 H (14-36) U/L ALT 76 H (4-34) U/L Alkaline Phosphatase 744 H (38-126) U/L Ammonia (<30) umol/L Albumin 3.0 L (3.5-5.0) g/dL Microbiology - Last 24 Hours (Table) 07/15/20 14:35 Urine Culture - Final Urine,Voided Assessment and Plan Assessment: 1. Elevated liver enzymes: This is a 50-year-old female with multiple medical comorbidities including end-stage renal disease on hemodialysis, was seen at the hospital consult placed for elevated liver enzymes. Patient had marked elevation of liver enzymes in predominantly a cholestatic pattern with total bilirubin 5.0 alkaline phosphatase 793, AST 81 and ALT 89.Today's labs total bili 4.5, alkaline phosphatase 744, AST 67, ALT 76. No prior history of elevated liver enzymes or liver disease. Patient has CT scan of the abdomen which showed fatty infiltration of the liver and no evidence of intrahepatic biliary dilation. The ultrasound of the liver again showed hepatomegaly with heterogeneous appearance suggestive of fatty liver, with no ductal dilation. Liver serology studies were ordered and negative to date including viral hepatitis panel. Suspicion is for possible drug-induced liver injury as the patient had been treated with antibiotics approximately 2 weeks prior to prese ntation. Liver enzymes remain stable 2. Nausea and vomiting: Patient has chronic complaints of nausea and vomiting, which have been improving. Plan: 50-year-old female with multiple medical comorbidities, found to have an acute elevation in her liver enzymes on current medical presentation. Liver serology has been negative. Ultrasound of the abdomen with out any acute findings. Suspicion is for possible drug-induced liver injury in the setting of recent antibiotic therapy. Patient's abdomen soft with only some mild icterus noted on physical exam, no respiratory distress. Plan is to continue to monitor liver enzymes, with consideration for further imaging and possible biopsy if liver enzymes remain elevated in follow-up in the outpatient setting as patient is on aspirin and Plavix currently. Patient is awaiting HIDA scan. The impression and plan of care has been dictated as directed. I performed a history and examination of this patient, discussed the same with the dictator. I agree with the dictator's note ,documented as a scribe. Any additional findings or plans will be noted.
[2020-07-18 15:15] LABS: Glucose,Whole Blood 139 mg/dL (75-99)
--- NOTE | 2020-07-18 16:31 | P.PN ---
Subjective Progress Note Date: 07/18/20 Principal diagnosis: COPD stable not in exacerbation End-stage renal disease on hemodialysis Chest pain cardiovascular service is evaluating Acute pulmonary edema combination of hypertensive heart failure renal failure Abdominal aortic aneurysm Chronic anemia 07/18/2020, patient seen eval examined overall respiratory Neftali remains stable denies any chest pain, patient is due for dialysis today, tolerating therapy well hemodynamic status stable 07/17/2020, patient seen eval examined during rounds labs reviewed medications reviewed him a denies any chest pain or shortness of breath, status post hemodialysis yesterday on Thursday schedule, ultrasound of the liver reveals hepatomegaly fatty infiltration 07/16/2020, patient seen evmaral examined during the rounds sitting upright in the bed breathing comfortably at room air, denies any chest pain or shortness of breath on activity and exertion however mild shortness of breaths present, patient is the do for dialysis, This is a pleasant 50-year-old -[place] female past medical history significant for coronary artery disease status post bypass grafting, chronic diastolic heart failure end-stage renal disease on hemodialysis, peripheral artery disease the left leg, hypertension, dyslipidemia, COPD, diabetes mellitus and chronic nicotine dependence. She presented to the hospital due to midsternal chest pain without radiation, nausea and vomiting, patient complains of shortness of breath which is chronic but also has shortness of breath with minimal activity. She states she doesn't usually wear up a flight of stairs. Walking to the bathroom she sometimes has chest pain it just depends. She denies any sweats, no lightheadedness or dizziness. At the time of evaluation, patient is complaining of feeling tired. She states she has been chronically short of breath. She continues to have chest pressure in the midsternal area. Initial blood pressure was 190/85. Troponins 0.025, 0.026 on 2 draws. 3.3, chloride 93, CO2 25, BUN 26 and creatinine 2.18, blood sugar 453. Total bilirubin 4.8, AST 70, ALT 84, alk phosphatase 696. Cholesterol 249, triglycerides 230, LDL 170, HDL 33. EKG is sinus rhythm, right bundle branch block. Patient was given morphine and [place] in the emergency center for chest pain. Chest x-ray reveals cardiomegaly, pulmonary vascular congestion and pulmonary edema. Objective - Vital Signs Vital signs: Vital Signs Temp 97.8 F 07/18/20 13:01 Pulse 82 07/18/20 13:01 Resp 16 07/18/20 13:01 BP 115/71 07/18/20 13:01 Pulse Ox 96 07/18/20 12:00 Intake & Output 07/17/20 07/18/20 07/18/20 18:59 06:59 18:59 Intake Total 840 300 Output Total 200 2000 Balance 640 300 -2000 Weight 91.5 kg 90.9 kg Intake: Oral 840 300 Output: Urine 200 Hemodialysis 2000 Other: Voiding Method Toilet Toilet Toilet # Voids 0 1 - Exam - Constitutional General appearance: average body habitus, cooperative, disheveled - EENT Eyes: EOMI, PERRLA ENT: normal oropharynx Ears: bilateral: normal - Neck Neck: normal ROM Carotids: bilateral: upstroke normal Thyroid: bilateral: normal size - Respiratory Respiratory: bilateral: CTA - Cardiovascular Rhythm: regular Heart sounds: normal: S1, S2 - Gastrointestinal General gastrointestinal: decreased bowel sounds, distended, soft - Integumentary Integumentary: decreased turgor - Neurologic Neurologic: CNII-XII intact - Musculoskeletal Musculoskeletal: gait normal, generalized weakness, strength equal bilaterally - Psychiatric Psychiatric: A&O x's 3, appropriate affect, intact judgment & insight - Labs CBC & Chem 7: 07/18/20 06:43 07/18/20 06:43 Labs: Abnormal Lab Results - Last 24 Hours (Table) 07/17/20 07/17/20 07/18/20 Range/Units 17:34 20:26 05:59 RBC (3.80-5.40) m/uL Hgb (11.4-16.0) gm/dL Hct (34.0-46.0) % RDW (11.5-15.5) % Sodium (137-145) mmol/L Carbon Dioxide (22-30) mmol/L BUN (7-17) mg/dL Creatinine (0.52-1.04) mg/dL Glucose (74-99) mg/dL POC Glucose (mg/dL) 237 H 338 H 137 H (75-99) mg/dL Total Bilirubin (0.2-1.3) mg/dL AST (14-36) U/L ALT (4-34) U/L Alkaline Phosphatase (38-126) U/L Ammonia (<30) umol/L Albumin (3.5-5.0) g/dL 07/18/20 07/18/20 07/18/20 Range/Units 06:43 06:43 06:43 RBC 3.43 L (3.80-5.40) m/uL Hgb 9.7 L (11.4-16.0) gm/dL Hct 30.4 L (34.0-46.0) % RDW 17.9 H (11.5-15.5) % Sodium 134 L (137-145) mmol/L Carbon Dioxide 20 L (22-30) mmol/L BUN 46 H (7-17) mg/dL Creatinine 3.66 H (0.52-1.04) mg/dL Glucose 127 H (74-99) mg/dL POC Glucose (mg/dL) (75-99) mg/dL Total Bilirubin 4.5 H (0.2-1.3) mg/dL AST 67 H (14-36) U/L ALT 76 H (4-34) U/L Alkaline Phosphatase 744 H (38-126) U/L Ammonia 38 H (<30) umol/L Albumin 3.0 L (3.5-5.0) g/dL 07/18/20 07/18/20 Range/Units 12:33 15:14 RBC (3.80-5.40) m/uL Hgb (11.4-16.0) gm/dL Hct (34.0-46.0) % RDW (11.5-15.5) % Sodium (137-145) mmol/L Carbon Dioxide (22-30) mmol/L BUN (7-17) mg/dL Creatinine (0.52-1.04) mg/dL Glucose (74-99) mg/dL POC Glucose (mg/dL) 109 H 139 H (75-99) mg/dL Total Bilirubin (0.2-1.3) mg/dL AST (14-36) U/L ALT (4-34) U/L Alkaline Phosphatase (38-126) U/L Ammonia (<30) umol/L Albumin (3.5-5.0) g/dL Microbiology - Last 24 Hours (Table) 07/15/20 14:35 Urine Culture - Final Urine,Voided Assessment and Plan Assessment: COPD stable not in exacerbation End-stage renal disease on hemodialysis Chest pain cardiovascular service is evaluating Acute pulmonary edema combination of hypertensive heart failure renal failure Abdominal aortic aneurysm Chronic anemia Hepatomegaly Plan: Continue hemodialysis as planned Continue bronchodilators Increase activity as tolerated Further recommendations pending plan of care as per clinical response the patient Time with Patient: Greater than 30
[2020-07-18] MEDS: METOCLOPRAMIDE 5 MG TAB PO SCH ×3 (17:00→19:07)
[2020-07-18] MEDS: PANTOPRAZOLE 40 MG TABLET PO SCH ×2 (17:00→19:10)
[2020-07-18] MEDS: hydrOXYzine HCL 10 MG TAB PO SCH ×3 (17:01→21:01)
[2020-07-18] MEDS: LOSARTAN 50 MG TAB PO SCH ×2 (17:01→21:01)
[2020-07-18] MEDS: hydrALAZINE HCL 50 MG TAB PO SCH ×3 (17:01→21:01)
[2020-07-18] MEDS: amLODIPine 5 MG TAB PO SCH ×2 (17:01→21:01)
[2020-07-18 18:57] LABS: Glucose,Whole Blood 133 mg/dL (75-99)
[2020-07-18] MEDS: FLUCONAZOLE 150 MG TAB PO SCH (19:06)
[2020-07-18] MEDS: CLOPIDOGREL 75 MG TAB PO SCH (19:06)
[2020-07-18] MEDS: METOPROLOL SUCCINATE (ER) 50 MG TAB.ER.24H PO SCH (19:06)
[2020-07-18] MEDS: ASPIRIN 325 MG TAB PO SCH (19:07)
[2020-07-18] MEDS: LORATADINE 10 MG TAB PO SCH (19:07)
[2020-07-18 20:39] LABS: Glucose,Whole Blood 289 mg/dL (75-99)
[2020-07-18] MEDS: HYDROcodone/APAP 5-325MG 1 EACH TAB PO PRN (20:59)
[2020-07-18] MEDS: LORazepam 0.5 MG TAB PO SCH (21:01)
--- NOTE | 2020-07-18 22:14 | NM ---
EXAMINATION TYPE: NM hepatobiliary wo EF DATE OF EXAM: 07/18/2020 COMPARISON: NONE INDICATION: Elevated liver function tests TECHNIQUE: After the intravenous administration of 4.7 mCi Tc 99m Mebrofenin hepatobiliary scintigrap hy is performed. Images were obtained immediately post injection. FINDINGS: There is prompt uptake and excretion of radiotracer by the liver. There is some radiotracer external to the liver and presumably external to the patient. Correlate for any gallbladder catheter. Extrahepatic ducts are identified at 30 minutes. The gallbladder is visualized within 2.5 hours minutes. Small bowel activity is noted within 30 minutes. IMPRESSION: 1. Delayed visualization of the gallbladder. There is poor opacification of the gallbladder with rad iotracer. This may be due to is a drainage catheter. Incomplete obstruction of the cystic duct may be present. Correlate for acute cholecystitis.
--- NOTE | 2020-07-18 23:19 | PN ---
PROGRESS NOTE This is a 50-year-old white female who was supposed to get a HIDA scan today. It got delayed. Sodium 134, potassium 4.9. Total bilirubin is 4.5, AST 67, ALT 76. Still remains to have liver failure, unclear etiology. CARDIOVASCULAR: S1, S2. LUNGS: Clear. GI: Soft. INTEGUMENT: Generalized pruritus. HIDA scan shows delayed visualization of the gallbladder, poor opacification of the gallbladder. Correlate for acute cholecystitis. Will have to get a surgical consult on her. Consider waiting for GI recommendations. No clear source for her liver failure. MMODL / IJN: [id number] /
[2020-07-19] MEDS: NITROGLYCERIN OINT 1 INCH/GM PACKET TOPICAL SCH ×4 (00:19→18:11)
[2020-07-19] MEDS: diphenhydrAMINE 25 MG CAP PO PRN ×4 (04:45→20:11)
[2020-07-19] MEDS: PANTOPRAZOLE 40 MG TABLET PO SCH ×3 (07:07→18:14)
[2020-07-19] MEDS: METOCLOPRAMIDE 5 MG TAB PO SCH ×3 (07:21→18:23)
[2020-07-19 07:23] LABS: Anisocytosis Slight; Basophils # (A) 0.1 k/uL (0-0.2); Basophils % (A) 1 %; Eosinophils # (A) 0.1 k/uL (0-0.7); Eosinophils % (A) 1 %; HCT 28.2 % (34.0-46.0); Lymphocytes # (A) 0.8 k/uL (1.0-4.8); Lymphocytes % (A) 10 %; MCH 28.4 pg (25.0-35.0); MCHC 31.9 g/dL (31.0-37.0); MCV 89.1 fL (80.0-100.0); Mean Platelet Volume 9.2; Monocytes # (A) 0.6 k/uL (0-1.0); Monocytes % (A) 7 %; Neutrophils # (A) 6.3 k/uL (1.3-7.7); Neutrophils % (A) 80 %; Platelet Count 277 k/uL (150-450); RBC 3.17 m/uL (3.80-5.40); WBC 7.8 k/uL (3.8-10.6)
[2020-07-19 07:24] LABS: Prothrombin Time 10.5 sec (9.0-12.0)
[2020-07-19 07:28] LABS: Glucose,Whole Blood 383 mg/dL (75-99)
[2020-07-19 07:38] LABS: Albumin 2.8 g/dL (3.5-5.0); Calcium 8.3 mg/dL (8.4-10.2); Potassium 4.5 mmol/L (3.5-5.1); Total Bilirubin 4.6 mg/dL (0.2-1.3); Total Protein 5.8 g/dL (6.3-8.2)
[2020-07-19] MEDS: INSULIN ASPART (NovoLOG) 100 UNIT/ML VIAL SQ SCH ×7 (07:53→20:18)
[2020-07-19] MEDS: HYDROcodone/APAP 5-325MG 1 EACH TAB PO PRN ×2 (08:50→20:11)
[2020-07-19] MEDS: ASPIRIN 325 MG TAB PO SCH (08:51)
[2020-07-19] MEDS: hydrALAZINE HCL 50 MG TAB PO SCH ×2 (08:51→15:54)
[2020-07-19] MEDS: METOPROLOL SUCCINATE (ER) 50 MG TAB.ER.24H PO SCH (08:51)
[2020-07-19] MEDS: FLUCONAZOLE 150 MG TAB PO SCH (08:51)
[2020-07-19] MEDS: hydrOXYzine HCL 10 MG TAB PO SCH ×3 (08:51→15:54)
[2020-07-19] MEDS: CLOPIDOGREL 75 MG TAB PO SCH (08:51)
[2020-07-19] MEDS: LOSARTAN 50 MG TAB PO SCH ×2 (08:52→20:14)
[2020-07-19] MEDS: amLODIPine 5 MG TAB PO SCH ×2 (08:52→20:14)
[2020-07-19] MEDS: LORATADINE 10 MG TAB PO SCH (08:52)
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
[2020-07-19 12:08] LABS: Glucose,Whole Blood 267 mg/dL (75-99)
[2020-07-19] MEDS: diphenhydrAMINE 2% CREAM 28.4 GM TUBE TOPICAL PRN (14:20)
--- NOTE | 2020-07-19 14:48 | P.PN ---
Subjective Progress Note Date: 07/19/20 Principal diagnosis: COPD stable not in exacerbation End-stage renal disease on hemodialysis Chest pain cardiovascular service is evaluating Acute pulmonary edema combination of hypertensive heart failure renal failure Abdominal aortic aneurysm Chronic anemia 07/19/2020, patient seen eval examined denies any chest pain, still have feeling of abdominal fullness, shouldn't is being evaluated by surgical service for laparoscopy cholecystectomy 07/18/2020, patient seen eval examined overall respiratory Neftali remains stable denies any chest pain, patient is due for dialysis today, tolerating therapy well hemodynamic status stable 07/17/2020, patient seen eval examined during rounds labs reviewed medications reviewed him a denies any chest pain or shortness of breath, status post hemodialysis yesterday on Thursday schedule, ultrasound of the liver reveals hepatomegaly fatty infiltration 07/16/2020, patient seen eval examined during the rounds sitting upright in the bed breathing comfortably at room air, denies any chest pain or shortness of breath on activity and exertion however mild shortness of breaths present, patient is the do for dialysis, This is a pleasant 50-year-old -[place] female past medical history significant for coronary artery disease status post bypass grafting, chronic diastolic heart failure end-stage renal disease on hemodialysis, peripheral artery disease the left leg, hypertension, dyslipidemia, COPD, diabetes mellitus and chronic nicotine dependence. She presented to the hospital due to midsternal chest pain without radiation, nausea and vomiting, patient complains of shortness of breath which is chronic but also has shortness of breath with minimal activity. She states she doesn't usually wear up a flight of stairs. Walking to the bathroom she sometimes has chest pain it just depends. She denies any sweats, no lightheadedness or dizziness. At the time of evaluation, patient is complaining of feeling tired. She states she has been chronically short of breath. She continues to have ches t pressure in the midsternal area. Initial blood pressure was 190/85. Troponins 0.025, 0.026 on 2 draws. 3.3, chloride 93, CO2 25, BUN 26 and creatinine 2.18, blood sugar 453. Total bilirubin 4.8, AST 70, ALT 84, alk phosphatase 696. Cholesterol 249, triglycerides 230, LDL 170, HDL 33. EKG is sinus rhythm, right bundle branch block. Patient was given morphine and [place] in the emergency center for chest pain. Chest x-ray reveals cardiomegaly, pulmonary vascular congestion and pulmonary edema. Objective - Vital Signs Vital signs: Vital Signs Temp 98.9 F 07/19/20 11:25 Pulse 82 07/19/20 11:25 Resp 18 07/19/20 11:25 BP 147/79 07/19/20 11:25 Pulse Ox 98 07/19/20 11:25 Intake & Output 07/18/20 07/19/20 07/19/20 18:59 06:59 18:59 Intake Total 222 236 Output Total 1999 300 Balance -1999 236 Weight 70.6 kg Intake: Oral 222 236 Output: Urine 300 Hemodialysis 1999 Other: Voiding Method Toilet Toilet Toilet # Voids 1 - Exam - Constitutional General appearance: average body habitus, cooperative, disheveled - EENT Eyes: EOMI, PERRLA ENT: normal oropharynx Ears: bilateral: normal - Neck Neck: normal ROM Carotids: bilateral: upstroke normal Thyroid: bilateral: normal size - Respiratory Respiratory: bilateral: CTA - Cardiovascular Rhythm: regular Heart sounds: normal: S1, S2 - Gastrointestinal General gastrointestinal: decreased bowel sounds, distended, soft - Integumentary Integumentary: decreased turgor - Neurologic Neurologic: CNII-XII intact - Musculoskeletal Musculoskeletal: gait normal, generalized weakness, strength equal bilaterally - Psychiatric Psychiatric: A&O x's 3, appropriate affect, intact judgment & insight - Labs CBC & Chem 7: 07/19/20 06:45 07/19/20 06:45 Labs: Abnormal Lab Results - Last 24 Hours (Table) 07/18/20 07/18/20 07/18/20 Range/Units 15:14 18:56 20:38 RBC (3.80-5.40) m/uL Hgb (11.4-16.0) gm/dL Hct (34.0-46.0) % RDW (11.5-15.5) % Lymphocytes # (1.0-4.8) k/uL Sodium (137-145) mmol/L Carbon Dioxide (22-30) mmol/L BUN (7-17) mg/dL Creatinine (0.52-1.04) mg/dL Glucose (74-99) mg/dL POC Glucose (mg/dL) 139 H 133 H 289 H (75-99) mg/dL Calcium (8.4-10.2) mg/dL Total Bilirubin (0.2-1.3) mg/dL AST (14-36) U/L ALT (4-34) U/L Alkaline Phosphatase (38-126) U/L Total Protein (6.3-8.2) g/dL Albumin (3.5-5.0) g/dL 07/19/20 07/19/20 07/19/20 Range/Units 06:45 06:45 07:27 RBC 3.17 L (3.80-5.40) m/uL Hgb 9.0 L (11.4-16.0) gm/dL Hct 28.2 L (34.0-46.0) % RDW 18.0 H (11.5-15.5) % Lymphocytes # 0.8 L (1.0-4.8) k/uL Sodium 134 L (137-145) mmol/L Carbon Dioxide 21 L (22-30) mmol/L BUN 33 H (7-17) mg/dL Creatinine 2.72 H (0.52-1.04) mg/dL Glucose 374 H (74-99) mg/dL POC Glucose (mg/dL) 383 H (75-99) mg/dL Calcium 8.3 L (8.4-10.2) mg/dL Total Bilirubin 4.6 H (0.2-1.3) mg/dL AST 70 H (14-36) U/L ALT 63 H (4-34) U/L Alkaline Phosphatase 749 H (38-126) U/L Total Protein 5.8 L (6.3-8.2) g/dL Albumin 2.8 L (3.5-5.0) g/dL 07/19/20 Range/Units 12:07 RBC (3.80-5.40) m/uL Hgb (11.4-16.0) gm/dL Hct (34.0-46.0) % RDW (11.5-15.5) % Lymphocytes # (1.0-4.8) k/uL Sodium (137-145) mmol/L Carbon Dioxide (22-30) mmol/L BUN (7-17) mg/dL Creatinine (0.52-1.04) mg/dL Glucose (74-99) mg/dL POC Glucose (mg/dL) 267 H (75-99) mg/dL Calcium (8.4-10.2) mg/dL Total Bilirubin (0.2-1.3) mg/dL AST (14-36) U/L ALT (4-34) U/L Alkaline Phosphatase (38-126) U/L Total Protein (6.3-8.2) g/dL Albumin (3.5-5.0) g/dL Assessment and Plan Assessment: COPD stable not in exacerbation Chronic cholecystitis End-stage renal disease on hemodialysis Chest pain cardiovascular service is evaluating Acute pulmonary edema combination of hypertensive heart failure renal failure Abdominal aortic aneurysm Chronic anemia Hepatomegaly Plan: Patient being evaluated for laparoscopic cholecystectomy Continue hemodialysis as planned Continue bronchodilators Increase activity as tolerated Further recommendations pending plan of care as per clinical response the patient Time with Patient: Greater than 30
--- NOTE | 2020-07-19 15:13 | P.PN ---
Subjective Patient is seen in follow-up for end-stage renal disease. She is maintained on hemodialysis on Thursday schedule. No chest pain or shortness of breath at this time. Hemodynamically stable. No vomiting or diarrhea. Continues to itch. Scheduled for laparoscopic cholecystectomy on July 22. Vital signs are stable. General: The patient appeared well nourished and normally developed. HEENT: Head exam is unremarkable. Neck is without jugular venous distension. LUNGS: Breath sounds decreased. HEART: Rate and Rhythm are regular. ABDOMEN: Soft, nontender. EXTREMITITES: No clubbing, cyanosis, or edema. Objective - Vital Signs Vital signs: Vital Signs Temp 98.9 F 07/19/20 11:25 Pulse 82 07/19/20 11:25 Resp 18 07/19/20 11:25 BP 147/79 07/19/20 11:25 Pulse Ox 98 07/19/20 11:25 Intake & Output 07/18/20 07/19/20 07/19/20 18:59 06:59 18:59 Intake Total 222 236 Output Total 1999 300 Balance -1999 236 Weight 70.6 kg Intake: Oral 222 236 Output: Urine 300 Hemodialysis 1999 Other: Voiding Method Toilet Toilet Toilet # Voids 1 - Labs CBC & Chem 7: 07/19/20 06:45 07/19/20 06:45 Labs: Abnormal Lab Results - Last 24 Hours (Table) 07/18/20 07/18/20 07/18/20 Range/Units 15:14 18:56 20:38 RBC (3.80-5.40) m/uL Hgb (11.4-16.0) gm/dL Hct (34.0-46.0) % RDW (11.5-15.5) % Lymphocytes # (1.0-4.8) k/uL Sodium (137-145) mmol/L Carbon Dioxide (22-30) mmol/L BUN (7-17) mg/dL Creatinine (0.52-1.04) mg/dL Glucose (74-99) mg/dL POC Glucose (mg/dL) 139 H 133 H 289 H (75-99) mg/dL Calcium (8.4-10.2) mg/dL Total Bilirubin (0.2-1.3) mg/dL AST (14-36) U/L ALT (4-34) U/L Alkaline Phosphatase (38-126) U/L Total Protein (6.3-8.2) g/dL Albumin (3.5-5.0) g/dL 07/19/20 07/19/20 07/19/20 Range/Units 06:45 06:45 07:27 RBC 3.17 L (3.80-5.40) m/uL Hgb 9.0 L (11.4-16.0) gm/dL Hct 28.2 L (34.0-46.0) % RDW 18.0 H (11.5-15.5) % Lymphocytes # 0.8 L (1.0-4.8) k/uL Sodium 134 L (137-145) mmol/L Carbon Dioxide 21 L (22-30) mmol/L BUN 33 H (7-17) mg/dL Creatinine 2.72 H (0.52-1.04) mg/dL Glucose 374 H (74-99) mg/dL POC Glucose (mg/dL) 383 H (75-99) mg/dL Calcium 8.3 L (8.4-10.2) mg/dL Total Bilirubin 4.6 H (0.2-1.3) mg/dL AST 70 H (14-36) U/L ALT 63 H (4-34) U/L Alkaline Phosphatase 749 H (38-126) U/L Total Protein 5.8 L (6.3-8.2) g/dL Albumin 2.8 L (3.5-5.0) g/dL 07/19/20 Range/Units 12:07 RBC (3.80-5.40) m/uL Hgb (11.4-16.0) gm/dL Hct (34.0-46.0) % RDW (11.5-15.5) % Lymphocytes # (1.0-4.8) k/uL Sodium (137-145) mmol/L Carbon Dioxide (22-30) mmol/L BUN (7-17) mg/dL Creatinine (0.52-1.04) mg/dL Glucose (74-99) mg/dL POC Glucose (mg/dL) 267 H (75-99) mg/dL Calcium (8.4-10.2) mg/dL Total Bilirubin (0.2-1.3) mg/dL AST (14-36) U/L ALT (4-34) U/L Alkaline Phosphatase (38-126) U/L Total Protein (6.3-8.2) g/dL Albumin (3.5-5.0) g/dL Assessment and Plan Plan: Assessment: 1. End-stage renal disease maintained on hemodialysis on Thursday schedule. 2. Metabolic acidosis secondary to chronic kidney disease. 3. Insulin-dependent diabetes mellitus. 4. Hypertension with chronic kidney disease. Blood pressure stable. 5. History of COPD. 6. Generalized pruritus. Possibly related to elevated bilirubin. Phosphorus normal. Scheduled for laparoscopic cholecystectomy on Thursday. 7. Anemia of chronic kidney disease. Rule out iron deficiency. Plan: Hemodialysis tomorrow. Add oral sodium bicarbonate. Hold hydralazine and amlodipine for systolic blood pressure less than 120. Check iron studies.
[2020-07-19] MEDS: SODIUM BICARBONATE TAB 650 MG TAB PO SCH (15:55)
--- NOTE | 2020-07-19 16:08 | P.PN ---
Subjective Progress Note Date: 07/19/20 Principal diagnosis: Elevated liver enzymes, nausea and vomiting She was seen and examined at bedside. Patient was drowsy, however alert and oriented. Denies any acute changes through the night. She is tolerating a regular diet. Denies any nausea or vomiting. States the abdominal pain is diffuse, about the same. States her bowel movements have been normal, without melena. The patient underwent a HIDA scan yesterday which showed delayed visualization of the gallbladder. There is poor opacification of the gallbladder with radiotracer. This may be due to a drainage catheter. Complete obstruction of the cystic duct may be present. Correlate for acute cholecystitis. Total bili 4.6, alkaline phosphatase 749, AST 70, ALT 63 Objective - Vital Signs Vital signs: Vital Signs Temp 98.1 F 07/19/20 08:35 Pulse 93 07/19/20 08:35 Resp 18 07/19/20 08:35 BP 191/77 07/19/20 08:35 Pulse Ox 100 07/19/20 08:35 Intake & Output 07/18/20 07/19/20 07/19/20 18:59 06:59 18:59 Intake Total 222 236 Output Total 2000 300 Balance -1999 236 Weight 70.6 kg Intake: Oral 222 236 Output: Urine 300 Hemodialysis 1999 Other: Voiding Method Toilet Toilet # Voids 1 - Exam On physical examination, patient appears comfortable in no apparent distress. HEAD: Normocephalic, atraumatic. EYES: No scleral icterus. No conjunctival injection. MOUTH: No lesions, tongue midline. NECK: Trachea midline, no gross abnormalities. ABDOMEN: Soft, obese. Bowel sounds are positive. No organomegaly. No guarding or rigidity. Diffuse tenderness to palpation, greater in RUQ. EXTREMITIES: No pedal edema. SKIN: No rashes, no jaundice. NEUROLOGIC: Alert and oriented x3. No focal deficits. - Labs CBC & Chem 7: 07/19/20 06:45 07/19/20 06:45 Labs: Abnormal Lab Results - Last 24 Hours (Table) 07/18/20 07/18/20 07/18/20 Range/Units 15:14 18:56 20:38 RBC (3.80-5.40) m/uL Hgb (11.4-16.0) gm/dL Hct (34.0-46.0) % RDW (11.5-15.5) % Lymphocytes # (1.0-4.8) k/uL Sodium (137-145) mmol/L Carbon Dioxide (22-30) mmol/L BUN (7-17) mg/dL Creatinine (0.52-1.04) mg/dL Glucose (74-99) mg/dL POC Glucose (mg/dL) 139 H 133 H 289 H (75-99) mg/dL Calcium (8.4-10.2) mg/dL Total Bilirubin (0.2-1.3) mg/dL AST (14-36) U/L ALT (4-34) U/L Alkaline Phosphatase (38-126) U/L Total Protein (6.3-8.2) g/dL Albumin (3.5-5.0) g/dL 07/19/20 07/19/20 07/19/20 Range/Units 06:45 06:45 07:27 RBC 3.17 L (3.80-5.40) m/uL Hgb 9.0 L (11.4-16.0) gm/dL Hct 28.2 L (34.0-46.0) % RDW 18.0 H (11.5-15.5) % Lymphocytes # 0.8 L (1.0-4.8) k/uL Sodium 134 L (137-145) mmol/L Carbon Dioxide 21 L (22-30) mmol/L BUN 33 H (7-17) mg/dL Creatinine 2.72 H (0.52-1.04) mg/dL Glucose 374 H (74-99) mg/dL POC Glucose (mg/dL) 383 H (75-99) mg/dL Calcium 8.3 L (8.4-10.2) mg/dL Total Bilirubin 4.6 H (0.2-1.3) mg/dL AST 70 H (14-36) U/L ALT 63 H (4-34) U/L Alkaline Phosphatase 749 H (38-126) U/L Total Protein 5.8 L (6.3-8.2) g/dL Albumin 2.8 L (3.5-5.0) g/dL 07/19/20 Range/Units 12:07 RBC (3.80-5.40) m/uL Hgb (11.4-16.0) gm/dL Hct (34.0-46.0) % RDW (11.5-15.5) % Lymphocytes # (1.0-4.8) k/uL Sodium (137-145) mmol/L Carbon Dioxide (22-30) mmol/L BUN (7-17) mg/dL Creatinine (0.52-1.04) mg/dL Glucose (74-99) mg/dL POC Glucose (mg/dL) 267 H (75-99) mg/dL Calcium (8.4-10.2) mg/dL Total Bilirubin (0.2-1.3) mg/dL AST (14-36) U/L ALT (4-34) U/L Alkaline Phosphatase (38-126) U/L Total Protein (6.3-8.2) g/dL Albumin (3.5-5.0) g/dL Assessment and Plan Assessment: 1. Elevated liver enzymes: This is a 50-year-old female with multiple medical comorbidities including end-stage renal disease on hemodialysis, was seen at the hospital consult placed for elevated liver enzymes. Patient had marked elevation of liver enzymes in predominantly a cholestatic pattern with total bilirubin 5.0 alkaline phosphatase 793, AST 81 and ALT 89.Today's labs total bili 4.5, alkaline phosphatase 744, AST 67, ALT 76. No prior history of elevated liver enzymes or liver disease. Patient has CT scan of the abdomen which showed fatty infiltration of the liver and no evidence of intrahepatic biliary dilation. The ultrasound of the liver again showed hepatomegaly with heterogeneous appearance suggestive of fatty liver, with no ductal dilation. Liver serology studies were ordered and negative to date including viral hepatitis panel. Suspicion is for possible drug-induced liver injury as the patient had been treated with antibiotics approximately 2 weeks prior to presentation. HIDA scan shows delayed visualization of gallbladder. There is poor opacification of the gallbladder with radiotracer. This may be due to drainage catheter. Incomplete obstruction the cystic duct may be present. Correlate for acute cholecystitis. Liver enzymes remain stable 2. Nausea and vomiting: Patient has chronic complaints of nausea and vomiting, which have been improving. Plan: 50-year-old female with multiple medical comorbidities, found to have an acute elevation in her liver enzymes on current medical presentation. Liver serology has been negative. Ultrasound of the abdomen with out any acute findings. Suspicion is for possible drug-induced liver injury in the setting of recent antibiotic therapy. Patient's abdomen soft with only some mild icterus noted on physical exam, no respiratory distress. Plan is to continue to monitor liver enzymes, with consideration for further imaging and possible biopsy if liver enzymes remain elevated in follow-up in the outpatient setting as patient is on aspirin and Plavix currently. HIDA scan with abnormal findings suggestive of acute cholecystitis, surgery is on consult, patient is scheduled for cholecystectomy for Thursday. MRCP ordered to rule out CBD stone. Consider liver biopsy The impression and plan of care has been dictated as directed. I performed a history and examination of this patient, discussed the same with the dictator. I agree with the dictator's note ,documented as a scribe. Any additional findings or plans will be noted.
--- NOTE | 2020-07-19 17:11 | PN ---
PROGRESS NOTE A 50-year-old female with elevated liver enzymes. She has had a positive HIDA scan. Surgery started today for possible gall bladder removal, but she is on Plavix, will have to be withheld over the next 2-3 days so she can get the gallbladder removed. Her total bilirubin is 4.6 today, AST 70, ALT 63, alkaline phosphatase 749. Will hold her Plavix and wait for further orders from surgery to possibly take her gallbladder out. CHF, COPD, end-stage renal disease will be continued to be treated as a normal. CARDIOVASCULAR: S1, S2. LUNGS: Clear. GI: Soft, tender to palpation right upper quadrant. PLAN: Will continue current treatments and possibly get her gallbladder removed. Hold the Plavix for a few days. MMODL / IJN: [id number] /
[2020-07-19 17:39] LABS: Glucose,Whole Blood 157 mg/dL (75-99)
[2020-07-19] MEDS: CHOLESTYRAMINE (WITH SUGAR) 4 GM PACKET PO SCH (18:10)
[2020-07-19 20:08] LABS: Glucose,Whole Blood 188 mg/dL (75-99)
[2020-07-19] MEDS: LORazepam 0.5 MG TAB PO SCH (20:14)
[2020-07-20] MEDS: hydrALAZINE HCL 50 MG TAB PO SCH ×4 (00:04→21:48)
[2020-07-20] MEDS: hydrOXYzine HCL 10 MG TAB PO SCH ×4 (00:04→21:48)
[2020-07-20] MEDS: NITROGLYCERIN OINT 1 INCH/GM PACKET TOPICAL SCH ×4 (00:08→17:06)
[2020-07-20] MEDS: diphenhydrAMINE 25 MG CAP PO PRN ×3 (01:23→22:00)
[2020-07-20 01:25] LABS: % Iron Saturation 17.47 (12.00-45.00)
[2020-07-20 01:44] LABS: Ferritin 452.6 ng/mL (10.0-291.0)
[2020-07-20 07:07] LABS: Glucose,Whole Blood 165 mg/dL (75-99)
[2020-07-20] MEDS: PANTOPRAZOLE 40 MG TABLET PO SCH ×2 (07:58→17:06)
[2020-07-20] MEDS: INSULIN ASPART (NovoLOG) 100 UNIT/ML VIAL SQ SCH ×7 (08:01→21:49)
[2020-07-20] MEDS: FLUCONAZOLE 150 MG TAB PO SCH (08:02)
[2020-07-20] MEDS: amLODIPine 5 MG TAB PO SCH ×2 (08:02→21:48)
[2020-07-20] MEDS: LORATADINE 10 MG TAB PO SCH (08:03)
[2020-07-20] MEDS: METOPROLOL SUCCINATE (ER) 50 MG TAB.ER.24H PO SCH (08:03)
[2020-07-20] MEDS: LOSARTAN 50 MG TAB PO SCH ×2 (08:03→21:48)
[2020-07-20] MEDS: CHOLESTYRAMINE (WITH SUGAR) 4 GM PACKET PO SCH ×2 (08:04→17:13)
[2020-07-20] MEDS: SODIUM BICARBONATE TAB 650 MG TAB PO SCH (08:04)
[2020-07-20] MEDS: METOCLOPRAMIDE 5 MG TAB PO SCH ×3 (09:51→17:13)
--- NOTE | 2020-07-20 10:29 | P.PN ---
Subjective Progress Note Date: 07/20/20 Principal diagnosis: COPD stable not in exacerbation End-stage renal disease on hemodialysis Chest pain cardiovascular service is evaluating Acute pulmonary edema combination of hypertensive heart failure renal failure Abdominal aortic aneurysm Chronic anemia 07/20/2020, patient seen eval examined during the rounds labs reviewed medications reviewed as still of intermittent abdominal discomfort and fullness feeling, patient is being evaluated for MRCP drawn today, shortness of breath is stable denies any chest 07/19/2020, patient seen eval examined denies any chest pain, still have feeling of abdominal fullness, shouldn't is being evaluated by surgical service for l aparoscopy cholecystectomy 07/18/2020, patient seen eval examined overall respiratory Neftali remains stable denies any chest pain, patient is due for dialysis today, tolerating therapy well hemodynamic status stable 07/17/2020, patient seen eval examined during rounds labs reviewed medications reviewed him a denies any chest pain or shortness of breath, status post hemodialysis yesterday on Thursday schedule, ultrasound of the liver reveals hepatomegaly fatty infiltration 07/16/2020, patient seen eval examined during the rounds sitting upright in the bed breathing comfortably at room air, denies any chest pain or shortness of breath on activity and exertion however mild shortness of breaths present, patient is the do for dialysis, This is a pleasant 50-year-old -[place] female past medical history significant for coronary artery disease status post bypass grafting, chronic diastolic heart failure end-stage renal disease on hemodialysis, peripheral artery disease the left leg, hypertension, dyslipidemia, COPD, diabetes mellitus and chronic nicotine dependence. She presented to the hospital due to midsternal chest pain without radiation, nausea and vomiting, patient complains of shortness of breath which is chronic but also has shortness of breath with minimal activity. She states she doesn't usually wear up a flight of stairs. Walking to the bathroom she sometimes has chest pain it just depends. She denies any sweats, no lightheadedness or diz ziness. At the time of evaluation, patient is complaining of feeling tired. She states she has been chronically short of breath. She continues to have chest pressure in the midsternal area. Initial blood pressure was 190/85. Troponins 0.025, 0.026 on 2 draws. 3.3, chloride 93, CO2 25, BUN 26 and creatinine 2.18, blood sugar 453. Total bilirubin 4.8, AST 70, ALT 84, alk phosphatase 696. Cholesterol 249, triglycerides 230, LDL 170, HDL 33. EKG is sinus rhythm, right bundle branch block. Patient was given morphine and [place] in the emergency center for chest pain. Chest x-ray reveals cardiomegaly, pulmonary vascular congestion and pulmonary edema. Objective - Vital Signs Vital signs: Vital Signs Temp 97.9 F 07/20/20 04:00 Pulse 77 07/20/20 04:00 Resp 18 07/20/20 04:00 BP 162/72 07/20/20 04:00 Pulse Ox 96 07/20/20 04:00 Intake & Output 07/19/20 07/20/20 07/20/20 18:59 06:59 18:59 Intake Total 458 Output Total 0 Balance 458 0 Weight 93.5 kg Intake: Oral 458 Output: Urine 0 Other: Voiding Method Toilet Toilet # Voids 2 0 # Bowel Movements 0 - Exam - Constitutional General appearance: average body habitus, cooperative, disheveled - EENT Eyes: EOMI, PERRLA ENT: normal oropharynx Ears: bilateral: normal - Neck Neck: normal ROM Carotids: bilateral: upstroke normal Thyroid: bilateral: normal size - Respiratory Respiratory: bilateral: CTA - Cardiovascular Rhythm: regular Heart sounds: normal: S1, S2 - Gastrointestinal General gastrointestinal: decreased bowel sounds, distended, soft - Integumentary Integumentary: decreased turgor - Neurologic Neurologic: CNII-XII intact - Musculoskeletal Musculoskeletal: gait normal, generalized weakness, strength equal bilaterally - Psychiatric Psychiatric: A&O x's 3, appropriate affect, intact judgment & insight - Labs CBC & Chem 7: 07/19/20 06:45 07/19/20 06:45 Labs: Abnormal Lab Results - Last 24 Hours (Table) 07/19/20 07/19/20 07/19/20 Range/Units 06:45 12:07 17:38 POC Glucose (mg/dL) 267 H 157 H (75-99) mg/dL Iron 40 L (50-170) ug/dL Ferritin 452.6 H (10.0-291.0) ng/mL 07/19/20 07/20/20 Range/Units 20:06 07:05 POC Glucose (mg/dL) 188 H 165 H (75-99) mg/dL Iron (50-170) ug/dL Ferritin (10.0-291.0) ng/mL Assessment and Plan Assessment: COPD stable not in exacerbation Chronic cholecystitis End-stage renal disease on hemodialysis Chest pain cardiovascular service is evaluating Acute pulmonary edema combination of hypertensive heart failure renal failure Abdominal aortic aneurysm Chronic anemia Hepatomegaly Plan: Patient being evaluated for laparoscopic cholecystectomy Continue hemodialysis as planned Continue bronchodilators Increase activity as tolerated Further recommendations pending plan of care as per clinical response the patient Time with Patient: Greater than 30
[2020-07-20 11:30] LABS: Glucose,Whole Blood 157 mg/dL (75-99)
--- NOTE | 2020-07-20 12:01 | P.PN ---
Subjective Progress Note Date: 07/20/20 Principal diagnosis: Elevated liver enzymes, nausea and vomiting She was seen and examined at bedside. Patient was drowsy, however alert and oriented. Denies any acute changes through the night. She is nothing by mouth this morning awaiting her MRCP which is scheduled for 1300 today. Denies any nausea or vomiting. States the abdominal pain is diffuse, about the same. Sta mukund her bowel movements have been normal, without melena. The patient underwent a HIDA scan which showed delayed visualization of the gallbladder. There is poor opacification of the gallbladder with radiotracer. This may be due to a drainage catheter. Complete obstruction of the cystic duct may be present. Correlate for acute cholecystitis. CMP panel pending, patient refusing lab draw. States will get with hemodialysis which is scheduled for today. Objective - Vital Signs Vital signs: Vital Signs Temp 97.9 F 07/20/20 04:00 Pulse 77 07/20/20 04:00 Resp 18 07/20/20 04:00 BP 162/72 07/20/20 04:00 Pulse Ox 96 07/20/20 04:00 Intake & Output 07/19/20 07/20/20 07/20/20 18:59 06:59 18:59 Intake Total 458 Output Total 0 Balance 458 0 Weight 93.5 kg Intake: Oral 458 Output: Urine 0 Other: Voiding Method Toilet Toilet # Voids 2 0 # Bowel Movements 0 - Exam On physical examination, patient appears comfortable in no apparent distress. HEAD: Normocephalic, atraumatic. EYES: No scleral icterus. No conjunctival injection. MOUTH: No lesions, tongue midline. NECK: Trachea midline, no gross abnormalities. ABDOMEN: Soft, obese. Bowel sounds are positive. No organomegaly. No guarding or rigidity. Diffuse tenderness to palpation, greater in RUQ. EXTREMITIES: No pedal edema. SKIN: No rashes, no jaundice. NEUROLOGIC: Alert and oriented x3. No focal deficits. - Labs CBC & Chem 7: 07/19/20 06:45 07/19/20 06:45 Labs: Abnormal Lab Results - Last 24 Hours (Table) 07/19/20 07/19/20 07/19/20 Range/Units 06:45 12:07 17:38 POC Glucose (mg/dL) 267 H 157 H (75-99) mg/dL Iron 40 L (50-170) ug/dL Ferritin 452.6 H (10.0-291.0) ng/mL 07/19/20 07/20/20 07/20/20 Range/Units 20:06 07:05 11:28 POC Glucose (mg/dL) 188 H 165 H 157 H (75-99) mg/dL Iron (50-170) ug/dL Ferritin (10.0-291.0) ng/mL Assessment and Plan Assessment: 1. Elevated liver enzymes: This is a 50-year-old female with multiple medical comorbidities including end-stage renal disease on hemodialysis, was seen at the hospital consult placed for elevated liver enzymes. Patient had marked elevation of liver enzymes in predominantly a cholestatic pattern with total bilirubin 5.0 alkaline phosphatase 793, AST 81 and ALT 89. Today's labs are pending. No prior history of elevated liver enzymes or liver disease. Patient has CT scan of the abdomen which showed fatty infiltration of the liver and no evidence of intrahepatic biliary dilation. The ultrasound of the liver again showed hepatomegaly with heterogeneous appearance suggestive of fatty liver, with no ductal dilation. Liver serology studies were ordered and negative to date including viral hepatitis panel. Suspicion is for possible drug-induced liver injury as the patient had been treated with antibiotics approximately 2 weeks prior to presentation. HIDA scan shows delayed visualization of gallbladder. There is poor opacification of the gallbladder with radiotracer. This may be due to drainage catheter. Incomplete obstruction the cystic duct may be present. Correlate for acute cholecystitis. Liver enzymes remain stable 2. Nausea and vomiting: Patient has chronic complaints of nausea and vomiting, which have been improving. 3. Chronic Cholecystitis: Patient is scheduled to undergo laparoscopic cholecystectomy on Thursday Plan: 50-year-old female with multiple medical comorbidities, found to have an acute elevation in her liver enzymes on current medical presentation. Liver serology has been negative. Ultrasound of the abdomen with out any acute findings. Suspicion is for possible drug-induced liver injury in the setting of recent antibiotic therapy. Patient's abdomen soft with only some mild icterus noted on physical exam, no respiratory distress. Plan is to continue to monitor liver enzymes, with consideration for further imaging and possible biopsy if liver enzymes remain elevated in follow-up in the outpatient setting as patient is on aspirin and Plavix currently. HIDA scan with abnormal findings suggestive of acute cholecystitis, surgery is on consult, patient is scheduled for cholecystectomy for Thursday. MRCP ordered to rule out CBD stone. Today's labs are pending. Consider liver biopsy The impression and plan of care has been dictated as directed. I performed a history and examination of this patient, discussed the same with the dictator. I agree with the dictator's note ,documented as a scribe. Any additional findings or plans will be noted.
--- NOTE | 2020-07-20 12:18 | P.PN ---
Subjective Patient is seen in follow-up for end-stage renal disease. She is maintained on hemodialysis on Thursday schedule. No chest pain or shortness of breath at this time. Hemodynamically stable. No vomiting or diarrhea. Continues to itch. Scheduled for laparoscopic cholecystectomy on July 22. No changes overnight. Vital signs are stable. General: The patient appeared well nourished and normally developed. HEENT: Head exam is unremarkable. Neck is without jugular venous distension. LUNGS: Breath sounds decreased. HEART: Rate and Rhythm are regular. ABDOMEN: Soft, nontender. EXTREMITITES: No clubbing, cyanosis, or edema. Objective - Vital Signs Vital signs: Vital Signs Temp 97.8 F 07/20/20 12:06 Pulse 75 07/20/20 12:06 Resp 16 07/20/20 12:06 BP 132/71 07/20/20 12:06 Pulse Ox 97 07/20/20 12:06 Intake & Output 07/19/20 07/20/20 07/20/20 18:59 06:59 18:59 Intake Total 458 Output Total 0 Balance 458 0 Weight 93.5 kg Intake: Oral 458 Output: Urine 0 Other: Voiding Method Toilet Toilet # Voids 2 0 # Bowel Movements 0 - Labs CBC & Chem 7: 07/19/20 06:45 07/19/20 06:45 Labs: Abnormal Lab Results - Last 24 Hours (Table) 07/19/20 07/19/20 07/19/20 Range/Units 06:45 17:38 20:06 POC Glucose (mg/dL) 157 H 188 H (75-99) mg/dL Iron 40 L (50-170) ug/dL Ferritin 452.6 H (10.0-291.0) ng/mL 07/20/20 07/20/20 Range/Units 07:05 11:28 POC Glucose (mg/dL) 165 H 157 H (75-99) mg/dL Iron (50-170) ug/dL Ferritin (10.0-291.0) ng/mL Assessment and Plan Plan: Assessment: 1. End-stage renal disease maintained on hemodialysis on Thursday schedule. 2. Metabolic acidosis secondary to chronic kidney disease. Maintained on oral sodium bicarbonate. 3. Insulin-dependent diabetes mellitus. 4. Hypertension with chronic kidney disease. Blood pressure stable. 5. History of COPD. 6. Generalized pruritus. Possibly related to elevated bilirubin. Phosphorus normal. Scheduled for laparoscopic cholecystectomy on Thursday. 7. Anemia of chronic kidney disease. Iron deficiency noted. Plan: Hemodialysis today. IV iron 3 doses. First dose today. Add Aranesp.
[2020-07-20] MEDS ORDERED: DARBEPOETIN ALFA 40 MCG/0.4 ML SYRINGE SQ SCH (12:30)
--- NOTE | 2020-07-20 13:34 | P.PN ---
Subjective Progress Note Date: 07/20/20 CHIEF COMPLAINT: Chest pain and shortness of breath HISTORY OF PRESENT ILLNESS: We are following patient in regards to her abdominal pain and chronic cholecystitis. Patient is still complaining of right upper quadrant abdominal pain. She denies any nausea or vomiting. She reports having bowel movements. She is scheduled for MRCP today. She is afebrile. Denies any nausea or vomiting. she has regular bowel movements. Labs pending PHYSICAL EXAM: VITAL SIGNS: Reviewed. GENERAL: Well-developed in no acute distress. HEENT: No sclera icterus. Extraocular movements grossly intact. Moist buccal mucosa. Head is atraumatic, normocephalic. ABDOMEN: Soft. Nondistended. Right upper quadrant tenderness with palpation NEUROLOGIC: Alert and oriented. Cranial nerves II through XII grossly intact. ASSESSMENT: 1. Chronic cholecystitis PLAN: -Planning for laparoscopic cholecystectomy with Dr. Winston on 07/23/2020 -Nothing by mouth after midnight on Thursday -Aspirin and Plavix have been discontinued in anticipation for surgery on Thursday Physician Cigar Packer note has been reviewed by physician. Signing provider agrees with the documented findings, assessment, and plan of care. Objective - Vital Signs Vital signs: Vital Signs Temp 97.8 F 07/20/20 12:06 Pulse 75 07/20/20 12:06 Resp 16 07/20/20 12:06 BP 132/71 07/20/20 12:06 Pulse Ox 97 07/20/20 12:06 Intake & Output 07/19/20 07/20/20 07/20/20 18:59 06:59 18:59 Intake Total 458 Output Total 0 Balance 458 0 Weight 93.5 kg Intake: Oral 458 Output: Urine 0 Other: Voiding Method Toilet Toilet # Voids 2 0 # Bowel Movements 0 - Labs CBC & Chem 7: 07/19/20 06:45 07/19/20 06:45 Labs: Abnormal Lab Results - Last 24 Hours (Table) 07/19/20 07/19/20 07/19/20 Range/Units 06:45 17:38 20:06 POC Glucose (mg/dL) 157 H 188 H (75-99) mg/dL Iron 40 L (50-170) ug/dL Ferritin 452.6 H (10.0-291.0) ng/mL 07/20/20 07/20/20 Range/Units 07:05 11:28 POC Glucose (mg/dL) 165 H 157 H (75-99) mg/dL Iron (50-170) ug/dL Ferritin (10.0-291.0) ng/mL
[2020-07-20] MEDS: SODIUM FERRIC GLUCONAT-SUCROSE 125 MG in SODIUM CHLORIDE 0.9% 100 ML IVPB SCH (14:16)
[2020-07-20 17:01] LABS: Glucose,Whole Blood 100 mg/dL (75-99)
[2020-07-20 21:13] LABS: Glucose,Whole Blood 255 mg/dL (75-99)
[2020-07-20] MEDS: LORazepam 0.5 MG TAB PO SCH (21:49)
[2020-07-20] MEDS: HYDROcodone/APAP 5-325MG 1 EACH TAB PO PRN (21:59)
--- NOTE | 2020-07-20 22:24 | PN ---
PROGRESS NOTE This patient is a 50-year-old -[place] female, scheduled for surgery on Thursday for her gallbladder. She is off Plavix and aspirin until surgery is over. Will probably keep her on subcutaneous heparin over the weekend until surgery is over, then start her back on Plavix and aspirin. Liver enzymes are being scheduled for tomorrow. She has possibly cirrhosis with cholecystitis. CHF, COPD, end-stage renal disease are being treated effectively. Vital signs stable. CARDIOVASCULAR: S1, S2. LUNGS: Clear. GI: Hepatomegaly. HEMATOLOGY: Negative Homans. ASSESSMENT: 1. Cirrhosis of the liver. 2. Cholecystitis. 3. Chronic obstructive pulmonary disease. 4. Diastolic congestive heart failure. 5. End-stage renal disease. 6. Diabetes mellitus. Prognosis guarded. Scheduled for surgery on Thursday morning. Continue with heparin subcutaneously over the weekend. MMODL / IJN: [id number] /
[2020-07-21 00:08] LABS: Albumin 3.2 g/dL (3.5-5.0); Calcium 8.6 mg/dL (8.4-10.2); Potassium 4.5 mmol/L (3.5-5.1); Total Bilirubin 5.3 mg/dL (0.2-1.3); Total Protein 6.4 g/dL (6.3-8.2)
[2020-07-21] MEDS: NITROGLYCERIN OINT 1 INCH/GM PACKET TOPICAL SCH ×4 (01:33→17:04)
[2020-07-21] MEDS: HEPARIN SODIUM,PORCINE 5,000 UNIT/ML 1 ML VIAL SQ SCH ×3 (01:37→17:20)
[2020-07-21 07:03] LABS: Glucose,Whole Blood 253 mg/dL (75-99)
[2020-07-21 07:10] LABS: INR 1.1 (<1.2)
[2020-07-21 07:11] LABS: Prothrombin Time 10.8 sec (9.0-12.0)
[2020-07-21 07:14] LABS: Calcium 8.5 mg/dL (8.4-10.2); Potassium 4.5 mmol/L (3.5-5.1); Total Bilirubin 4.9 mg/dL (0.2-1.3); Total Protein 6.2 g/dL (6.3-8.2)
[2020-07-21] MEDS: INSULIN ASPART (NovoLOG) 100 UNIT/ML VIAL SQ SCH ×7 (08:08→21:36)
[2020-07-21] MEDS: FLUCONAZOLE 150 MG TAB PO SCH (08:09)
[2020-07-21] MEDS: METOCLOPRAMIDE 5 MG TAB PO SCH ×3 (08:10→17:19)
[2020-07-21] MEDS: LORATADINE 10 MG TAB PO SCH (08:10)
[2020-07-21] MEDS: SODIUM BICARBONATE TAB 650 MG TAB PO SCH (08:10)
[2020-07-21] MEDS: hydrOXYzine HCL 10 MG TAB PO SCH ×3 (08:10→21:30)
[2020-07-21] MEDS: PANTOPRAZOLE 40 MG TABLET PO SCH ×2 (08:10→17:04)
[2020-07-21] MEDS: hydrALAZINE HCL 50 MG TAB PO SCH ×3 (08:11→21:35)
[2020-07-21] MEDS: amLODIPine 5 MG TAB PO SCH ×2 (08:11→21:29)
[2020-07-21] MEDS: LOSARTAN 50 MG TAB PO SCH (08:11)
[2020-07-21] MEDS: HYDROcodone/APAP 5-325MG 1 EACH TAB PO PRN ×2 (08:11→17:20)
[2020-07-21] MEDS: METOPROLOL SUCCINATE (ER) 50 MG TAB.ER.24H PO SCH (08:11)
[2020-07-21] MEDS: diphenhydrAMINE 25 MG CAP PO PRN ×2 (08:24→19:34)
[2020-07-21] MEDS: SODIUM FERRIC GLUCONAT-SUCROSE 125 MG in SODIUM CHLORIDE 0.9% 100 ML IVPB SCH (08:47)
[2020-07-21 10:57] LABS: Glucose,Whole Blood 294 mg/dL (75-99)
[2020-07-21] MEDS: CHOLESTYRAMINE (WITH SUGAR) 4 GM PACKET PO SCH ×2 (11:40→17:04)
[2020-07-21] MEDS: diphenhydrAMINE 2% CREAM 28.4 GM TUBE TOPICAL PRN ×2 (11:40→21:50)
--- NOTE | 2020-07-21 12:11 | PN ---
PROGRESS NOTE A 50-year-old white female with liver failure, cirrhosis and cholecystitis. She is off Plavix and aspirin. On subcutaneous heparin until Thursday. She is going to get her gallbladder taken out. Her total bilirubin is down to 4.9 today. AST is 80, down from 89, ALT 73 from 72, alk phosphate 851, cholestasis pattern. Cardiovascular S1-S2. Lungs clear. GI soft. ASSESSMENT: 1. End-stage renal failure. 2. Liver failure. 3. Cholecystitis. 4. Diastolic congestive heart failure. 5. Chronic obstructive pulmonary disease. Continue current treatments. Plan for surgery on Thursday. Continue on subcutaneous heparin, hypertension medications, cardiovascular medications, GERD medications bicarb for end-stage renal disease, dialysis as tolerated. MMODL / IJN: [id number] /
[2020-07-21] MEDS ORDERED: ALTEPLASE 2 MG VIAL (CATHFLO) IV STA (12:24)
--- NOTE | 2020-07-21 12:24 | P.PN ---
Subjective Progress Note Date: 07/21/20 Principal diagnosis: COPD stable not in exacerbation End-stage renal disease on hemodialysis Chest pain cardiovascular service is evaluating Acute pulmonary edema combination of hypertensive heart failure renal failure Abdominal aortic aneurysm Chronic anemia 07/21/2020, patient seen eval examined during the rounds labs reviewed medications reviewed, status post hepatorenal lady scan delayed visualization of gallbladder has been noted with poor opacification overall better findings as stated above. Acute cholecystitis, respiratory status is stable proceed with surgery as planned 07/20/2020, patient seen eval examined during the rounds labs reviewed medications reviewed as still of intermittent abdominal discomfort and fullness feeling, patient is being evaluated for MRCP drawn today, shortness of breath is stable denies any chest 07/19/2020, patient seen eval examined denies any chest pain, still have feeling of abdominal fullness, shouldn't is being evaluated by surgical service for laparoscopy cholecystectomy 07/18/2020, patient seen eval examined overall respiratory Neftali remains stable denies any chest pain, patient is due for dialysis today, tolerating therapy well hemodynamic status stable 07/17/2020, patient seen eval examined during rounds labs reviewed medications reviewed him a denies any chest pain or shortness of breath, status post h emodialysis yesterday on Thursday schedule, ultrasound of the liver reveals hepatomegaly fatty infiltration 07/16/2020, patient seen eval examined during the rounds sitting upright in the bed breathing comfortably at room air, denies any chest pain or shortness of breath on activity and exertion however mild shortness of breaths present, patient is the do for dialysis, This is a pleasant 50-year-old -[place] female past medical history significant for coronary artery disease status post bypass grafting, chronic diastolic heart failure end-stage renal disease on hemodialysis, peripheral artery disease the left leg, hypertension, dyslipidemia, COPD, diabetes mellitus and chronic nicotine dependence. She presented to the hospital due to midsternal chest pain without radiation, nausea and vomiting, patient complains of shortness of breath which is chronic but also has shortness of breath with minimal activity. She states she doesn't usually wear up a flight of stairs. Walking to the bathroom she sometimes has chest pain it just depends. She denies any sweats, no lightheadedness or dizziness. At the time of evaluation, patient is complaining of feeling tired. She states she has been chronically short of breath. She continues to have chest pressure in the midsternal area. Initial blood pressure was 190/85. Troponins 0.025, 0.026 on 2 draws. 3.3, chloride 93, CO2 25, BUN 26 and creatinine 2.18, blood sugar 453. Total bilirubin 4.8, AST 70, ALT 84, alk phosphatase 696. Cholesterol 249, triglycerides 230, LDL 170, HDL 33. EKG is sinus rhythm, right bundle branch block. Patient was given morphine and [place] in the emergency center for chest pain. Chest x-ray reveals cardiomegaly, pulmonary vascular congestion and pulmonary edema. Objective - Vital Signs Vital signs: Vital Signs Temp 99 F 07/21/20 11:31 Pulse 84 07/21/20 11:31 Resp 20 07/21/20 11:31 BP 198/78 07/21/20 11:31 Pulse Ox 97 07/21/20 11:31 Intake & Output 07/20/20 07/21/20 07/21/20 18:59 06:59 18:59 Intake Total 100 450 Output Total 2400 0 Balance -2300 450 Intake: Intake, IV Titration 100 Amount Sodium Ferric Gluconat- 100 Sucrose 125 mg In Sodium Chloride 0.9% 100 ml @ 100 mls/hr IVPB DAILY [facility] Rx#:[id number] Oral 450 Output: Urine 0 Hemodialysis 2400 Other: Voiding Method Toilet Toilet Toilet # Voids 0 # Bowel Movements 0 - Exam - Constitutional General appearance: average body habitus, cooperative, disheveled - EENT Eyes: EOMI, PERRLA ENT: normal oropharynx Ears: bilateral: normal - Neck Neck: normal ROM Carotids: bilateral: upstroke normal Thyroid: bilateral: normal size - Respiratory Respiratory: bilateral: CTA - Cardiovascular Rhythm: regular Heart sounds: normal: S1, S2 - Gastrointestinal General gastrointestinal: decreased bowel sounds, distended, soft - Integumentary Integumentary: decreased turgor - Neurologic Neurologic: CNII-XII intact - Musculoskeletal Musculoskeletal: gait normal, generalized weakness, strength equal bilaterally - Psychiatric Psychiatric: A&O x's 3, appropriate affect, intact judgment & insight - Labs CBC & Chem 7: 07/19/20 06:45 07/21/20 06:33 Labs: Abnormal Lab Results - Last 24 Hours (Table) 07/20/20 07/20/20 07/20/20 Range/Units 16:50 20:55 23:28 Sodium 133 L (137-145) mmol/L BUN 32 H (7-17) mg/dL Creatinine 2.56 H (0.52-1.04) mg/dL Glucose 248 H (74-99) mg/dL POC Glucose (mg/dL) 100 H 255 H (75-99) mg/dL Total Bilirubin 5.3 H (0.2-1.3) mg/dL AST 89 H (14-36) U/L ALT 72 H (4-34) U/L Alkaline Phosphatase 888 H (38-126) U/L Total Protein (6.3-8.2) g/dL Albumin 3.2 L (3.5-5.0) g/dL 07/21/20 07/21/20 07/21/20 Range/Units 06:33 07:02 10:54 Sodium 133 L (137-145) mmol/L BUN 34 H (7-17) mg/dL Creatinine 2.84 H (0.52-1.04) mg/dL Glucose 244 H (74-99) mg/dL POC Glucose (mg/dL) 253 H 294 H (75-99) mg/dL Total Bilirubin 4.9 H (0.2-1.3) mg/dL AST 80 H (14-36) U/L ALT 73 H (4-34) U/L Alkaline Phosphatase 851 H (38-126) U/L Total Protein 6.2 L (6.3-8.2) g/dL Albumin 3.0 L (3.5-5.0) g/dL Assessment and Plan Assessment: COPD stable not in exacerbation Acute on Chronic cholecystitis End-stage renal disease on hemodialysis Chest pain cardiovascular service is evaluating Acute pulmonary edema combination of hypertensive heart failure renal failure Abdominal aortic aneurysm Chronic anemia Hepatomegaly Plan: Patient being evaluated for laparoscopic cholecystectomy Continue hemodialysis as planned Continue bronchodilators Increase activity as tolerated Further recommendations pending plan of care as per clinical response the patie nt Time with Patient: Greater than 30
[2020-07-21] MEDS: ALPRAZolam 0.5 MG TAB PO PRN ×2 (12:32→21:49)
--- NOTE | 2020-07-21 12:48 | PN ---
PROGRESS NOTE Patient is seen for followup for end-stage renal disease. She is maintained on a Thursday, Thursday, Thursday schedule. Patient is complaining of itching. EXAMINATION: Today blood pressure is 198/78, heart rate 84 per minute, she is afebrile examination of the heart S1, S2. Examination of the lungs, decreased breath sounds at bases. Abdomen is soft, nontender. Examination of lower extremities shows no evidence of edema. [employer] DEVELOPER exam grossly intact. LAB: Sodium of 133, potassium 4.5, BUN of 34, serum creatinine 2.8. ASSESSMENT: 1. End-stage renal disease, on hemodialysis on a Thursday, Thursday, Thursday schedule. 2. CKD mineral bone disorder with complaints of significant itching. I will check a phosphorus level as well as a PTH level which can contribute to the itching. 3. Iron deficiency, maintained on IV iron. 4. Hypertension. The patient thinks that it might be the Cozaar, therefore, she has had refused the Cozaar today. We will continue to hold off on the Cozaar for the next couple of days to see if her itching is related to that, however, I believe it is also related to the alkaline phosphate being significantly elevated and with biliary obstruction. PLAN: Check phosphorus levels. Check PTH levels. May hold Cozaar and if itching is not better patient should resume the Cozaar. Again, itching could be related to the elevated alkaline phosphatase or CKD mineral bone disorder. MMODL / IJN: [id number] /
[2020-07-21 12:58] LABS: Anisocytosis Slight; Basophils # (A) 0.1 k/uL (0-0.2); Basophils % (A) 1 %; Eosinophils # (A) 0.1 k/uL (0-0.7); Eosinophils % (A) 1 %; HCT 29.7 % (34.0-46.0); HGB 9.7 gm/dL (11.4-16.0); Lymphocytes % (A) 11 %; MCH 28.9 pg (25.0-35.0); MCHC 32.5 g/dL (31.0-37.0); MCV 88.8 fL (80.0-100.0); Mean Platelet Volume 10.9; Monocytes # (A) 0.8 k/uL (0-1.0); Monocytes % (A) 9 %; Neutrophils # (A) 7.2 k/uL (1.3-7.7); Neutrophils % (A) 77 %; Platelet Count 291 k/uL (150-450); RBC 3.35 m/uL (3.80-5.40); RDW 17.9 % (11.5-15.5); WBC 9.5 k/uL (3.8-10.6)
--- NOTE | 2020-07-21 16:13 | P.PN ---
Subjective Progress Note Date: 07/21/20 CHIEF COMPLAINT: Cholecystitis HISTORY OF PRESENT ILLNESS: The patient is a 50-year-old female complains of right upper quadrant right-sided abdominal pain. ROS: No bowel movements. No fevers or chills. No productive sputum PHYSICAL EXAM: VITAL SIGNS: Reviewed CONSTITUTIONAL: Well developed and in no acute distress. EYES: Conjuctivae with sclera icterus. Extraocular movements grossly intact. HEAD, EARS, NOSE, THROAT: Moist buccal mucosa. Head is atraumatic, normocephalic. Hears conversational speech. No nasal drainage. NECK: Supple. No thyroidomegaly. RESPIRATORY: Non-labored respirations and equal bilateral excursions. CARDIOVASCULAR: Palpable 2+ radial pulses. ABDOMEN: Tender right upper quadrant MUSCULOSKELETAL: No gross deformity of the lower extremities noted. No clubbin g. No cyanosis. SKIN: Good skin turgor. Well perfused. NEUROLOGIC: Cranial nerves II through XII grossly intact. No focal or lateralizing signs. PSYCH: Flat affect. Alert and oriented to person, place and time. STUDIES: HIDA scan reviewed demonstrating findings consistent with cholecystitis. CLINICAL LABS: White blood cell count normal, 9.5 ASSESSMENT: 1. Cholecystitis PLAN: 1. For symptomatic cholecystitis, cholecystectomy described Objective - Vital Signs Vital signs: Vital Signs Temp 99 F 07/21/20 11:31 Pulse 84 07/21/20 11:31 Resp 20 07/21/20 11:31 BP 198/78 07/21/20 11:31 Pulse Ox 97 07/21/20 11:31 Intake & Output 07/20/20 07/21/20 07/21/20 18:59 06:59 18:59 Intake Total 100 450 125 Output Total 2400 0 Balance -2300 450 125 Intake: Intake, IV Titration 100 125 Amount Sodium Ferric Gluconat- 100 125 Sucrose 125 mg In Sodium Chloride 0.9% 100 ml @ 100 mls/hr IVPB DAILY [facility] Rx#:[id number] Oral 450 Output: Urine 0 Hemodialysis 2400 Other: Voiding Method Toilet Toilet Toilet # Voids 0 # Bowel Movements 0 - Labs CBC & Chem 7: 07/21/20 06:40 07/22/20 07:10 Labs: Abnormal Lab Results - Last 24 Hours (Table) 07/20/20 07/20/20 07/20/20 Range/Units 16:50 20:55 23:28 RBC (3.80-5.40) m/uL Hgb (11.4-16.0) gm/dL Hct (34.0-46.0) % RDW (11.5-15.5) % Sodium 133 L (137-145) mmol/L BUN 32 H (7-17) mg/dL Creatinine 2.56 H (0.52-1.04) mg/dL Glucose 248 H (74-99) mg/dL POC Glucose (mg/dL) 100 H 255 H (75-99) mg/dL Phosphorus (2.5-4.5) mg/dL Total Bilirubin 5.3 H (0.2-1.3) mg/dL AST 89 H (14-36) U/L ALT 72 H (4-34) U/L Alkaline Phosphatase 888 H (38-126) U/L Total Protein (6.3-8.2) g/dL Albumin 3.2 L (3.5-5.0) g/dL 07/21/20 07/21/20 07/21/20 Range/Units 06:33 06:40 06:45 RBC 3.35 L (3.80-5.40) m/uL Hgb 9.7 L (11.4-16.0) gm/dL Hct 29.7 L (34.0-46.0) % RDW 17.9 H (11.5-15.5) % Sodium 133 L (137-145) mmol/L BUN 34 H (7-17) mg/dL Creatinine 2.84 H (0.52-1.04) mg/dL Glucose 244 H (74-99) mg/dL POC Glucose (mg/dL) (75-99) mg/dL Phosphorus 4.9 H (2.5-4.5) mg/dL Total Bilirubin 4.9 H (0.2-1.3) mg/dL AST 80 H (14-36) U/L ALT 73 H (4-34) U/L Alkaline Phosphatase 851 H (38-126) U/L Total Protein 6.2 L (6.3-8.2) g/dL Albumin 3.0 L (3.5-5.0) g/dL 07/21/20 07/21/20 Range/Units 07:02 10:54 RBC (3.80-5.40) m/uL Hgb (11.4-16.0) gm/dL Hct (34.0-46.0) % RDW (11.5-15.5) % Sodium (137-145) mmol/L BUN (7-17) mg/dL Creatinine (0.52-1.04) mg/dL Glucose (74-99) mg/dL POC Glucose (mg/dL) 253 H 294 H (75-99) mg/dL Phosphorus (2.5-4.5) mg/dL Total Bilirubin (0.2-1.3) mg/dL AST (14-36) U/L ALT (4-34) U/L Alkaline Phosphatase (38-126) U/L Total Protein (6.3-8.2) g/dL Albumin (3.5-5.0) g/dL Assessment and Plan (1) Cholecystitis Current Visit: Yes Status: Acute Code(s): K81.9 - CHOLECYSTITIS, UNSPECIFIED SNOMED Code(s): 24913591 (2) Chest pain Current Visit: Yes Status: Acute Code(s): R07.9 - CHEST PAIN, UNSPECIFIED SNOMED Code(s): 94376327 (3) Elevated liver enzymes Current Visit: Yes Status: Acute Code(s): R74.8 - ABNORMAL LEVELS OF OTHER SERUM ENZYMES SNOMED Code(s): 696742257
[2020-07-21 17:01] LABS: Glucose,Whole Blood 136 mg/dL (75-99)
[2020-07-21 21:12] LABS: Glucose,Whole Blood 190 mg/dL (75-99)
[2020-07-22] MEDS: HYDROcodone/APAP 5-325MG 1 EACH TAB PO PRN ×4 (00:58→20:09)
[2020-07-22] MEDS: HEPARIN SODIUM,PORCINE 5,000 UNIT/ML 1 ML VIAL SQ SCH ×4 (01:01→23:40)
[2020-07-22] MEDS: NITROGLYCERIN OINT 1 INCH/GM PACKET TOPICAL SCH ×6 (01:03→23:39)
[2020-07-22 06:54] LABS: Glucose,Whole Blood 283 mg/dL (75-99)
[2020-07-22 07:42] LABS: Albumin 2.8 g/dL (3.5-5.0); Calcium 8.2 mg/dL (8.4-10.2); Potassium 5.2 mmol/L (3.5-5.1); Total Bilirubin 4.6 mg/dL (0.2-1.3); Total Protein 5.9 g/dL (6.3-8.2)
[2020-07-22] MEDS: METOPROLOL SUCCINATE (ER) 50 MG TAB.ER.24H PO SCH (08:13)
[2020-07-22] MEDS: FLUCONAZOLE 150 MG TAB PO SCH (08:13)
[2020-07-22] MEDS: SODIUM BICARBONATE TAB 650 MG TAB PO SCH (08:13)
[2020-07-22] MEDS: hydrALAZINE HCL 50 MG TAB PO SCH ×3 (08:13→21:30)
[2020-07-22] MEDS: METOCLOPRAMIDE 5 MG TAB PO SCH ×3 (08:14→17:00)
[2020-07-22] MEDS: PANTOPRAZOLE 40 MG TABLET PO SCH ×2 (08:14→17:01)
[2020-07-22] MEDS: amLODIPine 5 MG TAB PO SCH ×2 (08:14→20:00)
[2020-07-22] MEDS: CHOLESTYRAMINE (WITH SUGAR) 4 GM PACKET PO SCH ×2 (08:15→16:36)
[2020-07-22] MEDS: hydrOXYzine HCL 10 MG TAB PO SCH ×3 (08:16→19:58)
[2020-07-22] MEDS: LORATADINE 10 MG TAB PO SCH (08:17)
[2020-07-22] MEDS: INSULIN ASPART (NovoLOG) 100 UNIT/ML VIAL SQ SCH ×7 (08:18→21:30)
[2020-07-22] MEDS: diphenhydrAMINE 25 MG CAP PO PRN ×3 (08:25→20:10)
[2020-07-22] MEDS: diphenhydrAMINE 2% CREAM 28.4 GM TUBE TOPICAL PRN (08:27)
[2020-07-22] MEDS: SODIUM FERRIC GLUCONAT-SUCROSE 125 MG in SODIUM CHLORIDE 0.9% 100 ML IVPB SCH (10:13)
[2020-07-22] MEDS: ALPRAZolam 0.5 MG TAB PO PRN (10:13)
[2020-07-22 11:34] LABS: Glucose,Whole Blood 268 mg/dL (75-99)
--- NOTE | 2020-07-22 13:51 | P.PN ---
Subjective Progress Note Date: 07/22/20 CHIEF COMPLAINT: Cholecystitis HISTORY OF PRESENT ILLNESS: The patient is a 50-year-old female complains of right upper quadrant right-sided abdominal pain. She reports improvement of right upper quadrant abdominal. She tolerated liquid diet. ROS: She had bowel movements. No fevers or chills. No productive sputum PHYSICAL EXAM: VITAL SIGNS: Reviewed CONSTITUTIONAL: Well developed and in no acute distress. EYES: Mild scleral icterus. Extraocular movements grossly intact. HEAD, EARS, NOSE, THROAT: Moist buccal mucosa. Head is atraumatic, normocephalic. Hears conversational speech. No nasal drainage. NECK: Supple. No thyroidomegaly. RESPIRATORY: Non-labored respirations and equal bilateral excursions. CARDIOVASCULAR: Palpable 2+ radial pulses. ABDOMEN: No peritonitis MUSCULOSKELETAL: No gross deformity of the lower extremities noted. No clubbing. No cyanosis. SKIN: Good skin turgor. Well perfused. NEUROLOGIC: Cranial nerves II through XII grossly intact. No focal or later alizing signs. PSYCH: Alert and oriented to person, place and time. CLINICAL LABS: Total bilirubin down 4.9-4.6. ASSESSMENT: 1. Cholecystitis 2. Jaundice PLAN: 1. Re-check CMP for jaundice 2. Cholecystectomy scheduled for tomorrow for which she is elevated risk with renal failure and heart disease Objective - Vital Signs Vital signs: Vital Signs Temp 98.7 F 07/22/20 11:33 Pulse 82 07/22/20 11:33 Resp 18 07/22/20 11:33 BP 102/73 07/22/20 11:33 Pulse Ox 97 07/22/20 11:33 Intake & Output 07/21/20 07/22/20 07/22/20 18:59 06:59 18:59 Intake Total 125 700 Output Total 0 Balance 125 700 Intake: Intake, IV Titration 125 Amount Sodium Ferric Gluconat- 125 Sucrose 125 mg In Sodium Chloride 0.9% 100 ml @ 100 mls/hr IVPB DAILY [facility] Rx#:[id number] Oral 700 Output: Urine 0 Other: Voiding Method Toilet Toilet Toilet # Voids 1 # Bowel Movements 1 - Labs CBC & Chem 7: 07/21/20 06:40 07/22/20 07:10 Labs: Abnormal Lab Results - Last 24 Hours (Table) 07/21/20 07/21/2020 Range/Units 17:00 20:56 06:53 Sodium (137-145) mmol/L Potassium (3.5-5.1) mmol/L BUN (7-17) mg/dL Creatinine (0.52-1.04) mg/dL Glucose (74-99) mg/dL POC Glucose (mg/dL) 136 H 190 H 283 H (75-99) mg/dL Calcium (8.4-10.2) mg/dL Total Bilirubin (0.2-1.3) mg/dL AST (14-36) U/L ALT (4-34) U/L Alkaline Phosphatase (38-126) U/L Total Protein (6.3-8.2) g/dL Albumin (3.5-5.0) g/dL 07/22/20 07/22/20 Range/Units 07:10 11:30 Sodium 132 L (137-145) mmol/L Potassium 5.2 H (3.5-5.1) mmol/L BUN 44 H (7-17) mg/dL Creatinine 3.64 H (0.52-1.04) mg/dL Glucose 282 H (74-99) mg/dL POC Glucose (mg/dL) 268 H (75-99) mg/dL Calcium 8.2 L (8.4-10.2) mg/dL Total Bilirubin 4.6 H (0.2-1.3) mg/dL AST 75 H (14-36) U/L ALT 70 H (4-34) U/L Alkaline Phosphatase 766 H (38-126) U/L Total Protein 5.9 L (6.3-8.2) g/dL Albumin 2.8 L (3.5-5.0) g/dL Assessment and Plan (1) Jaundice Current Visit: Yes Status: Acute Code(s): R17 - UNSPECIFIED JAUNDICE S NOMED Code(s): 82295875 (2) Cholecystitis Current Visit: Yes Status: Acute Code(s): K81.9 - CHOLECYSTITIS, UNSPECIFIED SNOMED Code(s): 49135253 (3) Elevated liver enzymes Current Visit: Yes Status: Acute Code(s): R74.8 - ABNORMAL LEVELS OF OTHER SERUM ENZYMES SNOMED Code(s): 805069705 (4) Renal failure Current Visit: No Status: Acute Code(s): N19 - UNSPECIFIED KIDNEY FAILURE SNOMED Code(s): 23845698
[2020-07-22 16:59] LABS: Glucose,Whole Blood 175 mg/dL (75-99)
--- NOTE | 2020-07-22 17:11 | PN ---
PROGRESS NOTE Patient is seen for followup for end-stage renal disease. She is maintained on a Thursday, Thursday, Thursday schedule for hemodialysis. On examination today patient is comfortable. She is sleeping. The patient had some vague abdominal discomfort. She is scheduled for cholecystectomy tomorrow. PHYSICAL EXAMINATION: On examination, blood pressure was 102/73, heart rate 82 per minute, she is afebrile. Patient appears euvolemic with no significant edema noted in her lower extremities. [employer] exam is grossly intact. LAB: Show sodium 132, potassium 5.2, BUN 44, creatinine 3.6. ASSESSMENT: 1. End-stage renal disease, on hemodialysis on a Thursday, Thursday, Thursday schedule. 2. Cholecystitis, scheduled for cholecystectomy tomorrow. 3. Chronic kidney disease mineral bone disorder. 4. Hypertension. Cozaar was on hold as patient assumed the itching to be from the Cozaar. We will continue to monitor off Cozaar for now. Her phosphorus was not significantly elevated. MMODL / IJN: [id number] /
[2020-07-22 20:52] LABS: Glucose,Whole Blood 154 mg/dL (75-99)
--- NOTE | 2020-07-22 22:26 | P.PN ---
Subjective Progress Note Date: 07/21/20 Principal diagnosis: Elevated liver enzymes, chronic nausea and vomiting Patient is seen lying in bed tolerating diet, no nausea vomiting or abdominal pain reported. She is reporting some pruritus. Objective - Vital Signs Vital signs: Vital Signs Temp 98.0 F 07/21/20 04:48 Pulse 89 07/21/20 04:48 Resp 18 07/21/20 04:48 BP 113/80 07/21/20 04:48 Pulse Ox 99 07/21/20 04:48 Intake & Output 07/20/20 07/21/20 07/21/20 18:59 06:59 18:59 Intake Total 100 450 Output Total 2400 0 Balance -2300 450 Intake: Intake, IV Titration 100 Amount Sodium Ferric Gluconat- 100 Sucrose 125 mg In Sodium Chloride 0.9% 100 ml @ 100 mls/hr IVPB DAILY [facility] Rx#:[id number] Oral 450 Output: Urine 0 Hemodialysis 2400 Other: Voiding Method Toilet Toilet Toilet # Voids 0 # Bowel Movements 0 - Exam On physical examination, patient appears comfortable in no apparent distress. HEAD: Normocephalic, atraumatic. EYES: No scleral icterus. No conjunctival injection. MOUTH: No lesions, tongue midline. NECK: Trachea midline, no gross abnormalities. ABDOMEN: Soft, obese. Bowel sounds are positive. No organomegaly. No guarding or rigidity. EXTREMITIES: No pedal edema. SKIN: No rashes, no jaundice. NEUROLOGIC: Alert and oriented x3. No focal deficits. - Labs CBC & Chem 7: 07/21/20 06:40 07/22/20 07:10 Labs: Abnormal Lab Results - Last 24 Hours (Table) 07/20/20 07/20/20 07/20/20 Range/Units 11:28 16:50 20:55 Sodium (137-145) mmol/L BUN (7-17) mg/dL Creatinine (0.52-1.04) mg/dL Glucose (74-99) mg/dL POC Glucose (mg/dL) 157 H 100 H 255 H (75-99) mg/dL Total Bilirubin (0.2-1.3) mg/dL AST (14-36) U/L ALT (4-34) U/L Alkaline Phosphatase (38-126) U/L Total Protein (6.3-8.2) g/dL Albumin (3.5-5.0) g/dL 07/20/20 07/21/20 07/21/20 Range/Units 23:28 06:33 07:02 Sodium 133 L 133 L (137-145) mmol/L BUN 32 H 34 H (7-17) mg/dL Creatinine 2.56 H 2.84 H (0.52-1.04) mg/dL Glucose 248 H 244 H (74-99) mg/dL POC Glucose (mg/dL) 253 H (75-99) mg/dL Total Bilirubin 5.3 H 4.9 H (0.2-1.3) mg/dL AST 89 H 80 H (14-36) U/L ALT 72 H 73 H (4-34) U/L Alkaline Phosphatase 888 H 851 H (38-126) U/L Total Protein 6.2 L (6.3-8.2) g/dL Albumin 3.2 L 3.0 L (3.5-5.0) g/dL Assessment and Plan (1) Elevated liver enzymes Narrative/Plan: 50-year-old female with multiple medical comorbidities including end-stage renal disease on hemodialysis, was seen at the hospital in consult placed for elevated liver enzymes. Patient had market elevation in liver enzymes and predominantly a cholestatic pattern with total bilirubin 5.0, alkaline phosphatase 793, AST 81 and ALT 89. No prior history of elevated liver enzymes or liver disease. Patient has computed tomography scan of the abdomen which showed fatty infiltration of the liver and no evidence of intra-or extrahepatic biliary dilation. Liver serology ordered and negative to date including viral hepatitis panel. Suspicion is for possible drug-induced liver injury is a patient had been treated with antibiotics approximately 2 weeks prior to presentation. Liver enzymes remaining stable. Current Visit: Yes Status: Acute Code(s): R74.8 - ABNORMAL LEVELS OF OTHER SERUM ENZYMES SNOMED Code(s): 697627749 (2) Nausea and vomiting Narrative/Plan: Chronic complaints of nausea and vomiting, improving. Current Visit: No Status: Acute Code(s): R11.2 - NAUSEA WITH VOMITING, UNSPECIFIED SNOMED Code(s): 75687903 Plan: supportive care Okay for diet as tolerated Continue monitor CBC, BMP, LFTs Ultrasound reviewed MRCP ordered, however the patient refused due to concerns over anxiety surgical service plan for cholecystectomy on Thursday Treatment for pruritus including cholestyramine, Benadryl by mouth and cream Thank you for allowing us to participate in the care of the patient we will continue to follow
--- NOTE | 2020-07-22 22:27 | P.PN ---
Subjective Progress Note Date: 07/22/20 Principal diagnosis: Elevated liver enzymes, chronic nausea and vomiting Patient is seen lying in bed with no acute complaints. She continues to tolerate diet. She continues to complain of pruritus. Objective - Vital Signs Vital signs: Vital Signs Temp 98.7 F 07/22/20 11:33 Pulse 82 07/22/20 11:33 Resp 18 07/22/20 11:33 BP 102/73 07/22/20 11:33 Pulse Ox 97 07/22/20 11:33 Intake & Output 07/21/20 07/22/20 07/22/20 18:59 06:59 18:59 Intake Total 125 700 Output Total 0 Balance 125 700 Intake: Intake, IV Titration 125 Amount Sodium Ferric Gluconat- 125 Sucrose 125 mg In Sodium Chloride 0.9% 100 ml @ 100 mls/hr IVPB DAILY [facility] Rx#:[id number] Oral 700 Output: Urine 0 Other: Voiding Method Toilet Toilet Toilet # Voids 1 # Bowel Movements 1 - Exam On physical examination, patient appears comfortable in no apparent distress. HEAD: Normocephalic, atraumatic. EYES: No scleral icterus. No conjunctival injection. MOUTH: No lesions, tongue midline. NECK: Trachea midline, no gross abnormalities. ABDOMEN: Soft, obese. Bowel sounds are positive. No organomegaly. No guarding or rigidity. EXTREMITIES: No pedal edema. SKIN: No rashes, no jaundice. NEUROLOGIC: Alert and oriented x3. No focal deficits. - Labs CBC & Chem 7: 07/21/20 06:40 07/22/20 07:10 Labs: Abnormal Lab Results - Last 24 Hours (Table) 07/21/20 07/21/20 07/21/20 Range/Units 06:40 06:45 17:00 RBC 3.35 L (3.80-5.40) m/uL Hgb 9.7 L (11.4-16.0) gm/dL Hct 29.7 L (34.0-46.0) % RDW 17.9 H (11.5-15.5) % Sodium (137-145) mmol/L Potassium (3.5-5.1) mmol/L BUN (7-17) mg/dL Creatinine (0.52-1.04) mg/dL Glucose (74-99) mg/dL POC Glucose (mg/dL) 136 H (75-99) mg/dL Calcium (8.4-10.2) mg/dL Phosphorus 4.9 H (2.5-4.5) mg/dL Total Bilirubin (0.2-1.3) mg/dL AST (14-36) U/L ALT (4-34) U/L Alkaline Phosphatase (38-126) U/L Total Protein (6.3-8.2) g/dL Albumin (3.5-5.0) g/dL 07/21/20 07/22/20 07/22/20 Range/Units 20:56 06:53 07:10 RBC (3.80-5.40) m/uL Hgb (11.4-16.0) gm/dL Hct (34.0-46.0) % RDW (11.5-15.5) % Sodium 132 L (137-145) mmol/L Potassium 5.2 H (3.5-5.1) mmol/L BUN 44 H (7-17) mg/dL Creatinine 3.64 H (0.52-1.04) mg/dL Glucose 282 H (74-99) mg/dL POC Glucose (mg/dL) 190 H 283 H (75-99) mg/dL Calcium 8.2 L (8.4-10.2) mg/dL Phosphorus (2.5-4.5) mg/dL Total Bilirubin 4.6 H (0.2-1.3) mg/dL AST 75 H (14-36) U/L ALT 70 H (4-34) U/L Alkaline Phosphatase 766 H (38-126) U/L Total Protein 5.9 L (6.3-8.2) g/dL Albumin 2.8 L (3.5-5.0) g/dL 07/22/20 Range/Units 11:30 RBC (3.80-5.40) m/uL Hgb (11.4-16.0) gm/dL Hct (34.0-46.0) % RDW (11.5-15.5) % Sodium (137-145) mmol/L Potassium (3.5-5.1) mmol/L BUN (7-17) mg/dL Creatinine (0.52-1.04) mg/dL Glucose (74-99) mg/dL POC Glucose (mg/dL) 268 H (75-99) mg/dL Calcium (8.4-10.2) mg/dL Phosphorus (2.5-4.5) mg/dL Total Bilirubin (0.2-1.3) mg/dL AST (14-36) U/L ALT (4-34) U/L Alkaline Phosphatase (38-126) U/L Total Protein (6.3-8.2) g/dL Albumin (3.5-5.0) g/dL Assessment and Plan (1) Elevated liver enzymes Narrative/Plan: 50-year-old female with multiple medical comorbidities including end-stage renal disease on hemodialysis, was seen at the hospital in consult placed for elevated liver enzymes. Patient had market elevation in liver enzymes and predominantly a cholestatic pattern with total bilirubin 5.0, alkaline phosphatase 793, AST 81 and ALT 89. No prior history of elevated liver enzymes or liver disease. Pat ient has computed tomography scan of the abdomen which showed fatty infiltration of the liver and no evidence of intra-or extrahepatic biliary dilation. Liver serology ordered and negative to date including viral hepatitis panel. Suspicion is for possible drug-induced liver injury is a patient had been treated with antibiotics approximately 2 weeks prior to presentation. Liver enzymes remaining stable. Current Visit: Yes Status: Acute Code(s): R74.8 - ABNORMAL LEVELS OF OTHER SERUM ENZYMES SNOMED Code(s): 264971932 (2) Nausea and vomiting Narrative/Plan: Chronic complaints of nausea and vomiting, improving. Current Visit: No Status: Acute Code(s): R11.2 - NAUSEA WITH VOMITING, UNSPECIFIED SNOMED Code(s): 00279977 Plan: supportive care Okay for diet as tolerated Continue monitor CBC, BMP, LFTs Ultrasound reviewed MRCP ordered, however the patient refused due to concerns over anxiety surgical service plan for cholecystectomy on Thursday Treatment for pruritus including cholestyramine, Benadryl by mouth and cream Thank you for allowing us to participate in the care of the patient we will continue to follow
[2020-07-23] MEDS: ALPRAZolam 0.5 MG TAB PO PRN (00:18)
[2020-07-23] MEDS: diphenhydrAMINE 2% CREAM 28.4 GM TUBE TOPICAL PRN ×2 (01:04→11:44)
--- NOTE | 2020-07-23 03:49 | PN ---
PROGRESS NOTE This is a 50-year-old female. BUN is 44, creatinine is 3.64, total bilirubin is 4.6, AST 75, ALT 70, alkaline phosphatase 766. Going to get a cholecystectomy in the morning. Otherwise, CHF, COPD, diabetes, end-stage renal disease are stable. CARDIOVASCULAR: S1, S2. LUNGS: Clear. GI: Soft. Possible hepatomegaly. HEMATOLOGY: Negative Homans. ASSESSMENT: 1. Cirrhosis, unclear etiology. 2. Cholecystitis. 3. Chronic obstructive pulmonary disease. 4. Congestive heart failure. 5. Diastolic heart failure. 6. Hypertension. Continue current treatments. Possible discharge home soon. MMODL / IJN: [id number] /
[2020-07-23] MEDS: NITROGLYCERIN OINT 1 INCH/GM PACKET TOPICAL SCH ×4 (05:50→23:52)
[2020-07-23] MEDS: HYDROcodone/APAP 5-325MG 1 EACH TAB PO PRN ×3 (06:05→20:15)
[2020-07-23] MEDS: diphenhydrAMINE 25 MG CAP PO PRN ×2 (06:06→11:43)
[2020-07-23 07:00] LABS: Glucose,Whole Blood 225 mg/dL (75-99)
[2020-07-23] MEDS: METOCLOPRAMIDE 5 MG TAB PO SCH ×3 (07:33→18:10)
[2020-07-23] MEDS: PANTOPRAZOLE 40 MG TABLET PO SCH ×2 (07:33→18:10)
[2020-07-23] MEDS: INSULIN ASPART (NovoLOG) 100 UNIT/ML VIAL SQ SCH ×7 (07:34→20:49)
[2020-07-23] MEDS: amLODIPine 5 MG TAB PO SCH ×2 (07:35→20:29)
[2020-07-23] MEDS: hydrALAZINE HCL 50 MG TAB PO SCH ×3 (07:35→21:40)
[2020-07-23] MEDS: FLUCONAZOLE 150 MG TAB PO SCH (07:35)
[2020-07-23] MEDS: LORATADINE 10 MG TAB PO SCH (07:36)
[2020-07-23] MEDS: hydrOXYzine HCL 10 MG TAB PO SCH ×3 (07:36→21:47)
[2020-07-23] MEDS: SODIUM BICARBONATE TAB 650 MG TAB PO SCH (07:36)
[2020-07-23] MEDS: HEPARIN SODIUM,PORCINE 5,000 UNIT/ML 1 ML VIAL SQ SCH ×3 (08:10→23:54)
[2020-07-23] MEDS: METOPROLOL SUCCINATE (ER) 50 MG TAB.ER.24H PO SCH (08:10)
[2020-07-23] MEDS: CHOLESTYRAMINE (WITH SUGAR) 4 GM PACKET PO SCH ×2 (09:06→18:10)
[2020-07-23] MEDS: SODIUM FERRIC GLUCONAT-SUCROSE 125 MG in SODIUM CHLORIDE 0.9% 100 ML IVPB SCH (09:06)
[2020-07-23 10:53] LABS: Albumin 2.8 g/dL (3.5-5.0); Calcium 8.3 mg/dL (8.4-10.2); Total Bilirubin 3.7 mg/dL (0.2-1.3); Total Protein 5.9 g/dL (6.3-8.2)
[2020-07-23 11:18] LABS: Anisocytosis Slight; Basophils # (A) 0.1 k/uL (0-0.2); Basophils % (A) 1 %; Eosinophils # (A) 0.2 k/uL (0-0.7); Eosinophils % (A) 2 %; HGB 9.1 gm/dL (11.4-16.0); Lymphocytes # (A) 1.1 k/uL (1.0-4.8); Lymphocytes % (A) 12 %; MCH 28.4 pg (25.0-35.0); MCHC 32.5 g/dL (31.0-37.0); MCV 87.4 fL (80.0-100.0); Mean Platelet Volume 9.3; Monocytes # (A) 0.6 k/uL (0-1.0); Monocytes % (A) 7 %; Neutrophils # (A) 7.3 k/uL (1.3-7.7); Neutrophils % (A) 77 %; Platelet Count 295 k/uL (150-450); RBC 3.21 m/uL (3.80-5.40); RDW 17.7 % (11.5-15.5); WBC 9.5 k/uL (3.8-10.6)
[2020-07-23 12:43] LABS: Glucose,Whole Blood 181 mg/dL (75-99)
--- NOTE | 2020-07-23 13:14 | P.PN ---
Subjective Progress Note Date: 07/23/20 Principal diagnosis: Elevated liver enzymes, nausea and vomiting The patient was seen and examined at the bedside. She sitting up appears in no acute distress. She is scheduled today for a cholecystectomy. She did not undergo her MRCP due to being claustrophobic. She denies any nausea or vomiting. States she still has diffuse abdominal pain and tenderness. Total bili 3.7, alkaline phosphatase 734, a ST 65, able to 65 Objective - Vital Signs Vital signs: Vital Signs Temp 98.7 F 07/23/20 05:38 Pulse 84 07/23/20 05:38 Resp 20 07/23/20 05:38 BP 104/77 07/23/20 05:38 Pulse Ox 99 07/23/20 05:38 Intake & Output 07/22/20 07/23/20 07/23/20 18:59 06:59 18:59 Weight 98 kg Other: Voiding Method Toilet Toilet Toilet # Voids 4 1 # Bowel Movements 1 - Exam On physical examination, patient appears comfortable in no apparent distress. HEAD: Normocephalic, atraumatic. EYES: No scleral icterus. No conjunctival injection. MOUTH: No lesions, tongue midline. NECK: Trachea midline, no gross abnormalities. ABDOMEN: Soft, obese. Bowel sounds are positive. No organomegaly. No guarding or rigidity. Diffuse tenderness to palpation, greater in RUQ. EXTREMITIES: No pedal edema. SKIN: No rashes, no jaundice. NEUROLOGIC: Alert and oriented x3. No focal deficits. - Labs CBC & Chem 7: 07/23/20 10:15 07/23/20 10:15 Labs: Abnormal Lab Results - Last 24 Hours (Table) 07/22/20 07/22/20 07/23/20 Range/Units 16:50 20:44 06:58 RBC (3.80-5.40) m/uL Hgb (11.4-16.0) gm/dL Hct (34.0-46.0) % RDW (11.5-15.5) % Sodium (137-145) mmol/L Carbon Dioxide (22-30) mmol/L BUN (7-17) mg/dL Creatinine (0.52-1.04) mg/dL Glucose (74-99) mg/dL POC Glucose (mg/dL) 175 H 154 H 225 H (75-99) mg/dL Calcium (8.4-10.2) mg/dL Total Bilirubin (0.2-1.3) mg/dL AST (14-36) U/L ALT (4-34) U/L Alkaline Phosphatase (38-126) U/L Total Protein (6.3-8.2) g/dL Albumin (3.5-5.0) g/dL 07/23/20 07/23/20 07/23/20 Range/Units 10:15 10:15 12:41 RBC 3.21 L (3.80-5.40) m/uL Hgb 9.1 L (11.4-16.0) gm/dL Hct 28.0 L (34.0-46.0) % RDW 17.7 H (11.5-15.5) % Sodium 130 L (137-145) mmol/L Carbon Dioxide 19 L (22-30) mmol/L BUN 50 H (7-17) mg/dL Creatinine 4.08 H (0.52-1.04) mg/dL Glucose 176 H (74-99) mg/dL POC Glucose (mg/dL) 181 H (75-99) mg/dL Calcium 8.3 L (8.4-10.2) mg/dL Total Bilirubin 3.7 H (0.2-1.3) mg/dL AST 65 H (14-36) U/L ALT 65 H (4-34) U/L Alkaline Phosphatase 734 H (38-126) U/L Total Protein 5.9 L (6.3-8.2) g/dL Albumin 2.8 L (3.5-5.0) g/dL Assessment and Plan Assessment: (1) Elevated liver enzymes Narrative/Plan: 50-year-old female with multiple medical comorbidities including end-stage renal disease on hemodialysis, was seen at the hospital in consult placed for elevated liver enzymes. Patient had market elevation in liver enzymes and predominantly a cholestatic pattern with total bilirubin 5.0, alkaline phosphatase 793, AST 81 and ALT 89. No prior history of elevated liver enzymes or liver disease. Patient has computed tomography scan of the abdomen which showed fatty infiltration of the liver and no evidence of intra-or extrahepatic biliary dilation. Liver serology ordered and negative to date including viral hepatitis panel. Suspicion is for possible drug-induced liver injury is a patient had been treated with antibiotics approximately 2 weeks prior to presentation. Liver enzymes remaining stable. Current Visit: Yes Status: Acute Code(s): R74.8 - ABNORMAL LEVELS OF OTHER SERUM ENZYMES SNOMED Code(s): 137423292 (2) Nausea and vomiting Narrative/Plan: Chronic complaints of nausea and vomiting, improving. Current Visit: No Status: Acute Code(s): R11.2 - NAUSEA WITH VOMITING, UNSPECIFIED SNOMED Code(s): 81440303 Plan: supportive care Okay for diet as tolerated Continue monitor CBC, BMP, LFTs Ultrasound reviewed MRCP ordered, however the patient refused due to concerns over anxiety surgical service plan for cholecystectomy today Treatment for pruritus including cholestyramine, Benadryl by mouth and cream Thank you for allowing us to participate in the care of the patient we will continue to follow The impression and plan of care has been dictated as directed. Dr. Polo Otto I performed a history and examination of this patient, discussed the same with the dictator. I agree with the dictator's note ,documented as a scribe. Any additional findings or plans will be noted.
--- NOTE | 2020-07-23 13:40 | P.PN ---
Subjective Progress Note Date: 07/23/20 This is a 50-year-old female admitted with cirrhosis of unclear etiology, acute cholecystitis, end-stage renal disease and multiple other medical issues. Evaluated by both GI and surgery. NPO,Scheduled for laparoscopic cholecystectomy today. Total bili 3.7, alkaline phosphatase 734, AST 65, ALT 65. Sodium 1:30. Pain currently controlled. No nausea, vomiting or diarrhea. Denies chest pain, palpitations or increasing shortness of breath. Afebrile, normal WBC. Objective - Vital Signs Vital signs: Vital Signs Temp 98.9 F 07/23/20 13:00 Pulse 82 07/23/20 13:00 Resp 18 07/23/20 13:00 BP 96/71 07/23/20 13:00 Pulse Ox 98 07/23/20 13:00 Intake & Output 07/22/20 07/23/20 07/23/20 18:59 06:59 18:59 Weight 98 kg Other: Voiding Method Toilet Toilet Toilet # Voids 4 1 # Bowel Movements 1 - Exam PHYSICAL EXAM: VITAL SIGNS: As above GENERAL: Sitting up in bed, no acute distress HEENT: Conjunctivae normal. eyes normal. No scleral icterus. NECK: No JVD. No thyroid enlargement. No LNs CARDIOVASCULAR: S1, S2 regular. No murmur RESPIRATION: Breath sounds diminished in the bases. No rhonchi or crackles. No bronchial breathing. ABDOMEN: Soft, obese, diffuse tenderness. No guarding. no masses palpable.Bowel sounds heard. LEGS: No edema. no swelling PSYCHIATRY: Alert and oriented X3, mood and affect normal. NERVOUS SYSTEM: Cranial N 2-12 grossly normal. Moves all 4 limbs. No focal deficits. Strength and sensation grossly intact.. - Labs CBC & Chem 7: 07/23/20 10:15 07/23/20 10:15 Labs: Abnormal Lab Results - Last 24 Hours (Table) 07/22/20 07/22/20 07/23/20 Range/Units 16:50 20:44 06:58 RBC (3.80-5.40) m/uL Hgb (11.4-16.0) gm/dL Hct (34.0-46.0) % RDW (11.5-15.5) % Sodium (137-145) mmol/L Carbon Dioxide (22-30) mmol/L BUN (7-17) mg/dL Creatinine (0.52-1.04) mg/dL Glucose (74-99) mg/dL POC Glucose (mg/dL) 175 H 154 H 225 H (75-99) mg/dL Calcium (8.4-10.2) mg/dL Total Bilirubin (0.2-1.3) mg/dL AST (14-36) U/L ALT (4-34) U/L Alkaline Phosphatase (38-126) U/L Total Protein (6.3-8.2) g/dL Albumin (3.5-5.0) g/dL 07/23/20 07/23/20 07/23/20 Range/Units 10:15 10:15 12:41 RBC 3.21 L (3.80-5.40) m/uL Hgb 9.1 L (11.4-16.0) gm/dL Hct 28.0 L (34.0-46.0) % RDW 17.7 H (11.5-15.5) % Sodium 130 L (137-145) mmol/L Carbon Dioxide 19 L (22-30) mmol/L BUN 50 H (7-17) mg/dL Creatinine 4.08 H (0.52-1.04) mg/dL Glucose 176 H (74-99) mg/dL POC Glucose (mg/dL) 181 H (75-99) mg/dL Calcium 8.3 L (8.4-10.2) mg/dL Total Bilirubin 3.7 H (0.2-1.3) mg/dL AST 65 H (14-36) U/L ALT 65 H (4-34) U/L Alkaline Phosphatase 734 H (38-126) U/L Total Protein 5.9 L (6.3-8.2) g/dL Albumin 2.8 L (3.5-5.0) g/dL Assessment and Plan Assessment: Acute cholecystitis, surgery pending Gastroesophageal reflux disease CAD, History of NSTEMI, CABG chronic congestive heart failure, diastolic, EF 55-60% Hypertension Diabetes mellitus End-stage renal disease on hemodialysis hyperlipidemia, intolerant to statins and Zetia History of Abdominal aortic aneurysm, infrarenal, measuring 4.2 cm COPD, stable Bilateral patent common iliac artery stents with moderate stenosis within external iliac arteries History of Bilateral hilar soft tissue prominence measuring up to 1.4 cm, increasing retroperitoneal, periaortic nodularity 1.2 cm ,suggestive of lymphadenopathy possibly reactive, possibly granulomatous disease, possible sarcoidosis, systemic fungal or mycobacterial infection, lymphoma and connective tissue disorder. Close monitoring /follow-up OP Lumbar radiculopathy Chronic nicotine dependence Bipolar History of CVA, TIA Factor V deficiency, anemia Plan: Continue current medication regime ,monitoring and symptomatic treatment. NPO, laparoscopic cholecystectomy pending. Hemodialysis as per nephrology. Follow closely with multiple consults. The impression and plan of care has been dictated as directed. : I performed a history and examination of this patient, discussed the same with the dictator. I agree with the dictator's note ,documented as a scribe. Any additional findings or plans will be noted.
[2020-07-23] MEDS ORDERED: SODIUM CHLORIDE 0.9% 1,000 ML IV ONE (14:50)
[2020-07-23] MEDS ORDERED: ROCURONIUM BROMIDE 10 MG/ML 5 ML VIAL IV ONE (14:52)
[2020-07-23] MEDS ORDERED: MIDAZOLAM 2 MG/2 ML VIAL ONE (14:52)
[2020-07-23] MEDS ORDERED: LIDOCAINE 1% INJ 10MG/ML (20 ML MDV) ONE (14:52)
[2020-07-23] MEDS ORDERED: PROPOFOL 10 MG/ML 20 ML VIAL IV ONE (14:52)
[2020-07-23] MEDS ORDERED: NEOSTIGMINE 1 MG/ML 10 ML VIAL ONE (14:52)
[2020-07-23] MEDS ORDERED: fentaNYL (PF) 50 MCG/ML 2 ML AMP ONE (14:52)
[2020-07-23] MEDS ORDERED: FLUMAZENIL 0.1 MG/ML 5 ML VIAL IVP ONE (14:52)
[2020-07-23] MEDS ORDERED: GLYCOPYRROLATE 0.2 MG/ML 2 ML VIAL ONE (14:52)
[2020-07-23] MEDS ORDERED: NALOXONE 0.4 MG/ML 1 ML VIAL ONE (14:52)
[2020-07-23] MEDS ORDERED: ONDANSETRON 4 MG/2 ML VIAL ONE (14:52)
[2020-07-23 15:07] VITALS: BMI 33.8
[2020-07-23] MEDS ORDERED: SODIUM CHLORIDE 0.9% 100 ML with CLINDAMYCIN 600 MG IV ONE ×2 (15:07)
[2020-07-23] MEDS ORDERED: BUPIVACAINE (PF) 0.5% 30 ML VIAL SQ ONE (15:21)
[2020-07-23] MEDS ORDERED: HYDROmorphone 1 MG/ML 1 ML SYRINGE IM PRN (15:39)
--- NOTE | 2020-07-23 15:41 | P.OP ---
Date of Procedure: 07/23/20 Preoperative Diagnosis: Cholelithiasis Cholecystitis Postoperative Diagnosis: Cholelithiasis Cholecystitis Procedure(s) Performed: Arthroscopic resecting Laparoscopic liver biopsy Anesthesia: NICO Surgeon: Ke Winston Estimated Blood Loss (ml): 10 Pathology: other (Gallbladder, liver) Condition: stable Disposition: PACU Description of Procedure: The patient was placed on the operating table. The patient received a general endotracheal tube anesthesia. The patients abdomen was prepped and draped in the usual sterile fashion. Through an infraumbilical stab incision, the fascia of the anterior abdominal wall was grasped with a pair of Kochers and then the Veress needle was placed in the peritoneal cavity. Position of the Veress needle was confirmed with positive drop test. The abdomen was then insufflated. After adequate insufflation, the 10 mm trocar was placed in the peritoneal cavity. Following this the laparoscope was placed in the peritoneal cavity. The patient was placed in the head-up, right side up position and then a 5 mm trocar was placed in the right lateral and right subcostal position under direct visualization. A 8 mm trocar was placed in the epigastric position. The gallbladder was grasped in the fundus and infundib ulum. Traction on the gallbladder was placed in the lateral and the cephalad positions. The triangle of Calot was visualized.. The cystic duct was bluntly dissected until the union of the cystic duct and common bile duct was seen. A critical view of safety was achieved. The cystic duct was then divided and sealed with the Harmonic scissors. A PDS Endoloop was then placed throughout the cystic duct stump. The cystic artery divided and sealed with the Harmonic scissors. The gallbladder was then removed from the liver bed using Harmonic scissors. Using the biopsy forcep a liver biopsy performed at the edge of the right lobe of the liver. Letter cautery was used for hemostasis. The gallbladder was then extracted through the epigastric port site. Operative field was checked for any bleeding spots and Harmonic scissors was used to coagulate the liver bed. The abdomen was irrigated. The trocars were removed. The skin was closed using interrupted 3-0 Vicryl suture. Dermabond dressing were applied. The patient tolerated the procedure well.
[2020-07-23 16:13] LABS: Glucose,Whole Blood 169 mg/dL (75-99)
--- NOTE | 2020-07-23 16:35 | P.PN ---
Subjective Progress Note Date: 07/23/20 Principal diagnosis: COPD stable not in exacerbation End-stage renal disease on hemodialysis Chest pain cardiovascular service is evaluating Acute pulmonary edema combination of hypertensive heart failure renal failure Abdominal aortic aneurysm Chronic anemia 07/23/2020, patient is the awake and alert denies any chest pain shortness of breath she is being prepared and getting ready for laparoscopy cholecystectomy later on today via Dr. Cormier, labs reviewed medications reviewed 07/21/2020, patient seen eval examined during the rounds labs reviewed medications reviewed, status post hepatorenal lady scan delayed visualization of gallbladder has been noted with poor opacification overall better findings as stated above. Acute cholecystitis, respiratory status is stable proceed with surgery as planned 07/20/2020, patient seen eval examined during the rounds labs reviewed medications reviewed as still of intermittent abdominal discomfort and fullness feeling, patient is being evaluated for MRCP drawn today, shortness of breath is stable denies any chest 07/19/2020, patient seen eval examined denies any chest pain, still have feeling of abdominal fullness, shouldn't is being evaluated by surgical service for laparoscopy cholecystectomy 07/18/2020, patient seen eval examined overall respiratory Neftali remains stable denies any chest pain, patient is due for dialysis today, tolerating therapy well hemodynamic status stable 07/17/2020, patient seen eval examined during rounds labs reviewed medications reviewed him a denies any chest pain or shortness of breath, status post hemodialysis yesterday on Thursday schedule, ultrasound of the liver reveals hepatomegaly fatty infiltration 07/16/2020, patient seen eval examined during the rounds sitting upright in the bed breathing comfortably at room air, denies any chest pain or shortness of breath on activity and exertion however mild shortness of breaths present, patient is the do for dialysis, This is a pleasant 50-year-old -[place] female past medical history significant for coronary artery disease status post bypass grafting, chronic diastolic heart failure end-stage renal disease on hemodialysis, peripheral artery disease the left leg, hypertension, dyslipidemia, COPD, diabetes mellitus and chronic nicotine dependence. She presented to the hospital due to midsternal chest pain without radiation, nausea and vomiting, patient complains of shortness of breath which is chronic but also has shortness of breath with minimal activity. She states she doesn't usually wear up a flight of stairs. Walking to the bathroom she sometimes has chest pain it just depends. She denies any sweats, no lightheadedness or dizziness. At the time of evaluation, patient is complaining of feeling tired. She states she has been chronically short of breath. She continues to have chest pressure in the midsternal area. Initial blood pressure was 190/85. Troponins 0.025, 0.026 on 2 draws. 3.3, chloride 93, CO2 25, BUN 26 and creatinine 2.18, blood sugar 453. Total bilirubin 4.8, AST 70, ALT 84, alk phosphatase 696. Cholesterol 249, triglycerides 230, LDL 170, HDL 33. EKG is sinus rhythm, right bundle branch block. Patient was given morphine and [place] in the emergency center for chest pain. Chest x-ray reveals cardiomegaly, pulmonary vascular congestion and pulmonary edema. Objective - Vital Signs Vital signs: Vital Signs Temp 97 F L 07/23/20 15:57 Pulse 69 07/23/20 16:27 Resp 16 07/23/20 16:27 BP 136/54 07/23/20 16:27 Pulse Ox 100 07/23/20 16:27 Intake & Output 07/22/20 07/23/20 07/23/20 18:59 06:59 18:59 Intake Total 704 Output Total 5 Balance 699 Weight 98 kg 98 kg Intake: IV 604 Intake, IV Titration 100 Amount Sodium Ferric Gluconat- 100 Sucrose 125 mg In Sodium Chloride 0.9% 100 ml @ 100 mls/hr IVPB DAILY [facility] Rx#:[id number] Output: Estimated Blood Loss 5 Other: Voiding Method Toilet Toilet Toilet # Voids 4 1 2 # Bowel Movements 1 - Exam - Constitutional General appearance: average body habitus, cooperative, disheveled - EENT Eyes: EOMI, PERRLA ENT: normal oropharynx Ears: bilateral: normal - Neck Neck: normal ROM Carotids: bilateral: upstroke normal Thyroid: bilateral: normal size - Respiratory Respiratory: bilateral: CTA - Cardiovascular Rhythm: regular Heart sounds: normal: S1, S2 - Gastrointestinal General gastrointestinal: decreased bowel sounds, distended, soft - Integumentary Integumentary: decreased turgor - Neurologic Neurologic: CNII-XII intact - Musculoskeletal Musculoskeletal: gait normal, generalized weakness, strength equal bilaterally - Psychiatric Psychiatric: A&O x's 3, appropriate affect, intact judgment & insight - Labs CBC & Chem 7: 07/23/20 10:15 07/23/20 10:15 Labs: Abnormal Lab Results - Last 24 Hours (Table) 07/22/20 07/22/20 07/23/20 Range/Units 16:50 20:44 06:58 RBC (3.80-5.40) m/uL Hgb (11.4-16.0) gm/dL Hct (34.0-46.0) % RDW (11.5-15.5) % Sodium (137-145) mmol/L Carbon Dioxide (22-30) mmol/L BUN (7-17) mg/dL Creatinine (0.52-1.04) mg/dL Glucose (74-99) mg/dL POC Glucose (mg/dL) 175 H 154 H 225 H (75-99) mg/dL Calcium (8.4-10.2) mg/dL Total Bilirubin (0.2-1.3) mg/dL AST (14-36) U/L ALT (4-34) U/L Alkaline Phosphatase (38-126) U/L Total Protein (6.3-8.2) g/dL Albumin (3.5-5.0) g/dL 07/23/20 07/23/20 07/23/20 Range/Units 10:15 10:15 12:41 RBC 3.21 L (3.80-5.40) m/uL Hgb 9.1 L (11.4-16.0) gm/dL Hct 28.0 L (34.0-46.0) % RDW 17.7 H (11.5-15.5) % Sodium 130 L (137-145) mmol/L Carbon Dioxide 19 L (22-30) mmol/L BUN 50 H (7-17) mg/dL Creatinine 4.08 H (0.52-1.04) mg/dL Glucose 176 H (74-99) mg/dL POC Glucose (mg/dL) 181 H (75-99) mg/dL Calcium 8.3 L (8.4-10.2) mg/dL Total Bilirubin 3.7 H (0.2-1.3) mg/dL AST 65 H (14-36) U/L ALT 65 H (4-34) U/L Alkaline Phosphatase 734 H (38-126) U/L Total Protein 5.9 L (6.3-8.2) g/dL Albumin 2.8 L (3.5-5.0) g/dL 07/23/20 Range/Units 16:11 RBC (3.80-5.40) m/uL Hgb (11.4-16.0) gm/dL Hct (34.0-46.0) % RDW (11.5-15.5) % Sodium (137-145) mmol/L Carbon Dioxide (22-30) mmol/L BUN (7-17) mg/dL Creatinine (0.52-1.04) mg/dL Glucose (74-99) mg/dL POC Glucose (mg/dL) 169 H (75-99) mg/dL Calcium (8.4-10.2) mg/dL Total Bilirubin (0.2-1.3) mg/dL AST (14-36) U/L ALT (4-34) U/L Alkaline Phosphatase (38-126) U/L Total Protein (6.3-8.2) g/dL Albumin (3.5-5.0) g/dL Assessment and Plan Assessment: COPD stable not in exacerbation Acute on Chronic cholecystitis End-stage renal disease on hemodialysis Chest pain cardiovascular service is evaluating Acute pulmonary edema combination of hypertensive heart failure renal failure Abdominal aortic aneurysm Chronic anemia Hepatomegaly Plan: Patient being evaluated for laparoscopic cholecystectomy Continue hemodialysis as planned Continue bronchodilators Increase activity as tolerated Further recommendations pending plan of care as per clinical response the p atient Time with Patient: Greater than 30
[2020-07-23] MEDS: diphenhydrAMINE 50 MG CAP PO PRN (20:29)
[2020-07-23 20:43] VITALS: RESP 18
[2020-07-23 21:06] LABS: Glucose,Whole Blood 115 mg/dL (75-99)
[2020-07-23] MEDS: HYDROmorphone 1 MG/ML 1 ML SYRINGE IVP PRN (21:39)
[2020-07-24] MEDS: HYDROmorphone 1 MG/ML 1 ML SYRINGE IVP PRN ×2 (01:10→07:49)
[2020-07-24] MEDS: HYDROcodone/APAP 5-325MG 1 EACH TAB PO PRN (03:55)
[2020-07-24] MEDS: diphenhydrAMINE 50 MG CAP PO PRN (03:55)
[2020-07-24] MEDS ORDERED: diphenhydrAMINE 25 MG CAP PO PRN (04:01)
[2020-07-24] MEDS: NITROGLYCERIN OINT 1 INCH/GM PACKET TOPICAL SCH ×2 (05:11→11:05)
[2020-07-24 07:06] LABS: Glucose,Whole Blood 264 mg/dL (75-99)
[2020-07-24 07:42] VITALS: BP 128/71; PULSE 84
[2020-07-24] MEDS: hydrALAZINE HCL 50 MG TAB PO SCH (07:59)
[2020-07-24] MEDS: INSULIN ASPART (NovoLOG) 100 UNIT/ML VIAL SQ SCH ×4 (07:59→12:44)
[2020-07-24] MEDS: HEPARIN SODIUM,PORCINE 5,000 UNIT/ML 1 ML VIAL SQ SCH (07:59)
[2020-07-24] MEDS: SODIUM BICARBONATE TAB 650 MG TAB PO SCH (08:00)
[2020-07-24] MEDS: METOCLOPRAMIDE 5 MG TAB PO SCH ×2 (08:00→12:43)
[2020-07-24] MEDS: METOPROLOL SUCCINATE (ER) 50 MG TAB.ER.24H PO SCH (08:00)
[2020-07-24] MEDS: amLODIPine 5 MG TAB PO SCH (08:00)
[2020-07-24] MEDS: PANTOPRAZOLE 40 MG TABLET PO SCH ×2 (08:00→08:06)
[2020-07-24] MEDS: LORATADINE 10 MG TAB PO SCH (08:00)
[2020-07-24] MEDS: hydrOXYzine HCL 10 MG TAB PO SCH (08:02)
[2020-07-24] MEDS: FLUCONAZOLE 150 MG TAB PO SCH (08:02)
[2020-07-24 08:26] LABS: Calcium 8.3 mg/dL (8.4-10.2); Potassium 5.4 mmol/L (3.5-5.1); Total Protein 6.3 g/dL (6.3-8.2)
[2020-07-24] MEDS: CHOLESTYRAMINE (WITH SUGAR) 4 GM PACKET PO SCH (09:31)
[2020-07-24 09:35] LABS: Anisocytosis Slight; Basophils # (A) 0.1 k/uL (0-0.2); Basophils % (A) 0 %; Eosinophils # (A) 0.1 k/uL (0-0.7); Eosinophils % (A) 1 %; HCT 30.5 % (34.0-46.0); HGB 9.9 gm/dL (11.4-16.0); Lymphocytes # (A) 0.8 k/uL (1.0-4.8); Lymphocytes % (A) 5 %; MCH 28.8 pg (25.0-35.0); MCHC 32.4 g/dL (31.0-37.0); MCV 88.8 fL (80.0-100.0); Monocytes # (A) 0.6 k/uL (0-1.0); Monocytes % (A) 5 %; Neutrophils # (A) 12.5 k/uL (1.3-7.7); Neutrophils % (A) 88 %; Platelet Count 378 k/uL (150-450); RBC 3.44 m/uL (3.80-5.40); RDW 18.6 % (11.5-15.5); WBC 14.2 k/uL (3.8-10.6)
--- NOTE | 2020-07-24 10:48 | P.PN ---
Subjective Patient is seen in follow-up for end-stage renal disease. She is maintained on hemodialysis on Thursday schedule. No chest pain or shortness of breath at this time. Hemodynamically stable. Did have vomiting this morning. Vital signs are stable. General: The patient appeared well nourished and normally developed. HEENT: Head exam is unremarkable. Neck is without jugular venous distension. LUNGS: Breath sounds decreased. HEART: Rate and Rhythm are regular. ABDOMEN: Soft, nontender. EXTREMITITES: No clubbing, cyanosis, or edema. Objective - Vital Signs Vital signs: Vital Signs Temp 98.2 F 07/24/20 05:00 Pulse 84 07/24/20 07:41 Resp 18 07/24/20 05:00 BP 128/71 07/24/20 07:41 Pulse Ox 95 07/24/20 05:00 Intake & Output 07/23/20 07/24/20 07/24/20 18:59 06:59 18:59 Intake Total 714 Output Total 5 1999 Balance 709 -1999 Weight 98 kg 101.5 kg Intake: IV 614 Intake, IV Titration 100 Amount Sodium Ferric Gluconat- 100 Sucrose 125 mg In Sodium Chloride 0.9% 100 ml @ 100 mls/hr IVPB DAILY [facility] Rx#:[id number] Output: Hemodialysis 1999 Estimated Blood Loss 5 Other: Voiding Method Toilet Toilet Toilet # Voids 2 1 - Labs CBC & Chem 7: 07/24/20 07:55 07/24/20 07:55 Labs: Abnormal Lab Results - Last 24 Hours (Table) 07/23/20 07/23/20 07/23/20 Range/Units 10:15 10:15 12:41 WBC (3.8-10.6) k/uL RBC 3.21 L (3.80-5.40) m/uL Hgb 9.1 L (11.4-16.0) gm/dL Hct 28.0 L (34.0-46.0) % RDW 17.7 H (11.5-15.5) % Neutrophils # (1.3-7.7) k/uL Lymphocytes # (1.0-4.8) k/uL Sodium 130 L (137-145) mmol/L Potassium (3.5-5.1) mmol/L Chloride (98-107) mmol/L Carbon Dioxide 19 L (22-30) mmol/L BUN 50 H (7-17) mg/dL Creatinine 4.08 H (0.52-1.04) mg/dL Glucose 176 H (74-99) mg/dL POC Glucose (mg/dL) 181 H (75-99) mg/dL Calcium 8.3 L (8.4-10.2) mg/dL Total Bilirubin 3.7 H (0.2-1.3) mg/dL AST 65 H (14-36) U/L ALT 65 H (4-34) U/L Alkaline Phosphatase 734 H (38-126) U/L Total Protein 5.9 L (6.3-8.2) g/dL Albumin 2.8 L (3.5-5.0) g/dL 07/23/20 07/23/20 07/24/20 Range/Units 16:11 20:37 07:04 WBC (3.8-10.6) k/uL RBC (3.80-5.40) m/uL Hgb (11.4-16.0) gm/dL Hct (34.0-46.0) % RDW (11.5-15.5) % Neutrophils # (1.3-7.7) k/uL Lymphocytes # (1.0-4.8) k/uL Sodium (137-145) mmol/L Potassium (3.5-5.1) mmol/L Chloride (98-107) mmol/L Carbon Dioxide (22-30) mmol/L BUN (7-17) mg/dL Creatinine (0.52-1.04) mg/dL Glucose (74-99) mg/dL POC Glucose (mg/dL) 169 H 115 H 264 H (75-99) mg/dL Calcium (8.4-10.2) mg/dL Total Bilirubin (0.2-1.3) mg/dL AST (14-36) U/L ALT (4-34) U/L Alkaline Phosphatase (38-126) U/L Total Protein (6.3-8.2) g/dL Albumin (3.5-5.0) g/dL 07/24/20 07/24/20 Range/Units 07:55 07:55 WBC 14.2 H (3.8-10.6) k/uL RBC 3.44 L (3.80-5.40) m/uL Hgb 9.9 L (11.4-16.0) gm/dL Hct 30.5 L (34.0-46.0) % RDW 18.6 H (11.5-15.5) % Neutrophils # 12.5 H (1.3-7.7) k/uL Lymphocytes # 0.8 L (1.0-4.8) k/uL Sodium 131 L (137-145) mmol/L Potassium 5.4 H (3.5-5.1) mmol/L Chloride 97 L (98-107) mmol/L Carbon Dioxide 20 L (22-30) mmol/L BUN 36 H (7-17) mg/dL Creatinine 3.28 H (0.52-1.04) mg/dL Glucose 255 H (74-99) mg/dL POC Glucose (mg/dL) (75-99) mg/dL Calcium 8.3 L (8.4-10.2) mg/dL Total Bilirubin 4.0 H (0.2-1.3) mg/dL AST 89 H (14-36) U/L ALT 73 H (4-34) U/L Alkaline Phosphatase 786 H (38-126) U/L Total Protein (6.3-8.2) g/dL Albumin 3.0 L (3.5-5.0) g/dL Assessment and Plan Plan: Assessment: 1. End-stage renal disease maintained on hemodialysis on Thursday schedule. 2. Metabolic acidosis secondary to chronic kidney disease. Maintained on oral sodium bicarbonate. Expect further improvement postdialysis. 3. Insulin-dependent diabetes mellitus. 4. Hypertension with chronic kidney disease. Blood pressure stable. 5. History of COPD. 6. Generalized pruritus. Possibly related to elevated bilirubin. Phosphorus normal. Status post laparoscopic cholecystectomy this admission. 7. Anemia of chronic kidney disease. Status post IV are in. Maintained on Aranesp. Plan: Hemodialysis tomorrow. Stable to be discharged from nephrology standpoint.
--- NOTE | 2020-07-24 10:58 | P.PN ---
Subjective Progress Note Date: 07/24/20 CHIEF COMPLAINT: Chest pain and shortness of breath HISTORY OF PRESENT ILLNESS: We are following patient in regards to her abdominal pain and chronic cholecystitis. Patient did not have MRCP completed because she was claustrophobic. Patient is postop day #1 status post laparoscopic cholecystectomy with liver biopsy. She is currently on a regular diet. Denies any nausea or vomiting. She is afebrile. WBC 14.2 total bili 4.0 AST 89 ALT 73 alk phos 786 PHYSICAL EXAM: VITAL SIGNS: Reviewed. GENERAL: Well-developed in no acute distress. HEENT: No sclera icterus. Extraocular movements grossly intact. Moist buccal mucosa. Head is atraumatic, normocephalic. ABDOMEN: Soft. Nondistended. NEUROLOGIC: Alert and oriented. Cranial nerves II through XII grossly intact. ASSESSMENT: 1. Chronic cholecystitis status post laparoscopic cholecystectomy postop day #1 2. Cholelithiasis 3. Elevated LFTs status post liver biopsy PLAN: -Patient can resume her aspirin and Plavix -Patient to be discharged from surgical standpoint -Patient to follow-up with Dr. Winston in 1 week Physician [employer] [place] [employer] note has been reviewed by physician. Signing provider agrees with the documented findings, assessment, and plan of care. Objective - Vital Signs Vital signs: Vital Signs Temp 98.2 F 07/24/20 05:00 Pulse 84 07/24/20 07:41 Resp 18 07/24/20 05:00 BP 128/71 07/24/20 07:41 Pulse Ox 95 07/24/20 05:00 Intake & Output 07/23/20 07/24/20 07/24/20 18:59 06:59 18:59 Intake Total 714 Output Total 5 1999 Balance -1999 Weight 98 kg 101.5 kg Intake: IV 614 Intake, IV Titration 100 Amount Sodium Ferric Gluconat- 100 Sucrose 125 mg In Sodium Chloride 0.9% 100 ml @ 100 mls/hr IVPB DAILY [facility] Rx#:[id number] Output: Hemodialysis 1999 Estimated Blood Loss 5 Other: Voiding Method Toilet Toilet Toilet # Voids 2 1 - Labs CBC & Chem 7: 07/24/20 07:55 07/24/20 07:55 Labs: Abnormal Lab Results - Last 24 Hours (Table) 07/23/20 07/23/20 07/23/20 Range/Units 10:15 10:15 12:41 WBC (3.8-10.6) k/uL RBC 3.21 L (3.80-5.40) m/uL Hgb 9.1 L (11.4-16.0) gm/dL Hct 28.0 L (34.0-46.0) % RDW 17.7 H (11.5-15.5) % Neutrophils # (1.3-7.7) k/uL Lymphocytes # (1.0-4.8) k/uL Sodium 130 L (137-145) mmol/L Potassium (3.5-5.1) mmol/L Chloride (98-107) mmol/L Carbon Dioxide 19 L (22-30) mmol/L BUN 50 H (7-17) mg/dL Creatinine 4.08 H (0.52-1.04) mg/dL Glucose 176 H (74-99) mg/dL POC Glucose (mg/dL) 181 H (75-99) mg/dL Calcium 8.3 L (8.4-10.2) mg/dL Total Bilirubin 3.7 H (0.2-1.3) mg/dL AST 65 H (14-36) U/L ALT 65 H (4-34) U/L Alkaline Phosphatase 734 H (38-126) U/L Total Protein 5.9 L (6.3-8.2) g/dL Albumin 2.8 L (3.5-5.0) g/dL 07/23/20 07/23/20 07/24/20 Range/Units 16:11 20:37 07:04 WBC (3.8-10.6) k/uL RBC (3.80-5.40) m/uL Hgb (11.4-16.0) gm/dL Hct (34.0-46.0) % RDW (11.5-15.5) % Neutrophils # (1.3-7.7) k/uL Lymphocytes # (1.0-4.8) k/uL Sodium (137-145) mmol/L Potassium (3.5-5.1) mmol/L Chloride (98-107) mmol/L Carbon Dioxide (22-30) mmol/L BUN (7-17) mg/dL Creatinine (0.52-1.04) mg/dL Glucose (74-99) mg/dL POC Glucose (mg/dL) 169 H 115 H 264 H (75-99) mg/dL Calcium (8.4-10.2) mg/dL Total Bilirubin (0.2-1.3) mg/dL AST (14-36) U/L ALT (4-34) U/L Alkaline Phosphatase (38-126) U/L Total Protein (6.3-8.2) g/dL Albumin (3.5-5.0) g/dL 07/24/20 07/24/20 Range/Units 07:55 07:55 WBC 14.2 H (3.8-10.6) k/uL RBC 3.44 L (3.80-5.40) m/uL Hgb 9.9 L (11.4-16.0) gm/dL Hct 30.5 L (34.0-46.0) % RDW 18.6 H (11.5-15.5) % Neutrophils # 12.5 H (1.3-7.7) k/uL Lymphocytes # 0.8 L (1.0-4.8) k/uL Sodium 131 L (137-145) mmol/L Potassium 5.4 H (3.5-5.1) mmol/L Chloride 97 L (98-107) mmol/L Carbon Dioxide 20 L (22-30) mmol/L BUN 36 H (7-17) mg/dL Creatinine 3.28 H (0.52-1.04) mg/dL Glucose 255 H (74-99) mg/dL POC Glucose (mg/dL) (75-99) mg/dL Calcium 8.3 L (8.4-10.2) mg/dL Total Bilirubin 4.0 H (0.2-1.3) mg/dL AST 89 H (14-36) U/L ALT 73 H (4-34) U/L Alkaline Phosphatase 786 H (38-126) U/L Total Protein (6.3-8.2) g/dL Albumin 3.0 L (3.5-5.0) g/dL
--- NOTE | 2020-07-24 11:45 | P.DS ---
Providers Date of admission: 07/13/20 14:35 Expected date of discharge: 07/24/20 Attending physician: Pavel Velasquez Consults: 07/13/20 14:35 Consult Physician Urgent Consulting Provider: [facility] Consult Reason/Comments: Chest pain Do you want consulting provider notified?: Yes Consult Physician Urgent Consulting Provider: Gislea Velázquez Consult Reason/Comments: Left foot pain Do you want consulting provider notified?: Yes Consult Physician Urgent Consulting Provider: Keila Downs Consult Reason/Comments: Pulmonary edema, dialysis Do you want consulting provider notified?: Yes 07/14/20 10:38 Consult Physician Routine Consulting Provider: Barbie Otto Consult Reason/Comments: elevated lft Do you want consulting provider notified?: Yes 07/15/20 10:27 Consult Physician Routine Consulting Provider: Jae Dalton Consult Reason/Comments: copd Do you want consulting provider notified?: Yes 07/18/20 22:50 Consult Physician Routine Consulting Provider: Ke Winston Consult Reason/Comments: cholycystitis Do you want consulting provider notified?: Yes Primary care physician: Pavel Velasquez [facility] Course: Final Diagnoses: Acute cholecystitis, status post laparoscopic cholecystectomy and liver biopsy, results pending. Pruritus Gastroesophageal reflux disease CAD, History of NSTEMI, CABG chronic congestive heart failure, diastolic, EF 55-60% Hypertension Diabetes mellitus End-stage renal disease on hemodialysis hyperlipidemia, intolerant to statins and Zetia History of Abdominal aortic aneurysm, infrarenal, measuring 4.2 cm COPD, stable Bilateral patent common iliac artery stents with moderate stenosis within external iliac arteries History of Bilateral hilar soft tissue prominence measuring up to 1.4 cm, increasing retroperitoneal, periaortic nodularity 1.2 cm ,suggestive of lymphadenopathy possibly reactive, possibly granulomatous disease, possible sarcoidosis, systemic fungal or mycobacterial infection, lymphoma and connective tissue disorder. Close monitoring /follow-up OP Lumbar radiculopathy Chronic nicotine dependence Bipolar History of CVA, TIA Factor V deficiency, anemia Hospital course:This is a 50-year-old female admitted with cirrhosis of unclear etiology, acute cholecystitis, end-stage renal disease and multiple other medical issues. Evaluated by both GI and surgery. NPO,Scheduled for laparoscopi c cholecystectomy today. Total bili 3.7, alkaline phosphatase 734, AST 65, ALT 65. Sodium 1:30. Pain currently controlled. No nausea, vomiting or diarrhea. Denies chest pain, palpitations or increasing shortness of breath. Afebrile, normal WBC. Underwent laparoscopic cholecystectomy and liver biopsy, tolerated procedure well. Significant clinical improvement. Cleared by all consults for discharge. Patient is being discharged home in a stable condition with her prognosis. The impression and plan of care has been dictated as directed. : I performed a history and examination of this patient, discussed the same with the dictator. I agree with the dictator's note ,documented as a scribe. Any additional findings or plans will be noted. Patient Condition at Discharge: Stable Plan - Discharge Summary New Discharge Prescriptions: New Fluconazole [Diflucan] 150 mg PO DAILY #5 tab Cholestyramine (with Sugar) [Questran Packet] 4 gm PO BID@1000,1800 #14 packet Continue Metoprolol Succinate (ER) [Toprol XL] 50 mg PO DAILY Repaglinide 0.5 mg PO AC-BID Марина-Twyla 1 tab PO DAILY Metoclopramide [Reglan] 5 mg PO AC-TID HYDROcodone/APAP 5-325MG [[place] 5-325] 1 tab PO BID PRN PRN Reason: Pain amLODIPine [Norvasc] 5 mg PO BID #60 tab Pantoprazole [Protonix] 40 mg PO AC-BID #60 tablet. Nitroglycerin Sl Tabs [Nitrostat] 0.4 mg SUBLINGUAL Q5M PRN #100 tab PRN Reason: Chest Pain Ondansetron [Zofran] 4 mg PO DAILY PRN PRN Reason: Nausea LORazepam [Ativan] 0.5 mg PO HS ALPRAZolam [Xanax] 0.25 - 0.5 mg PO MOWEFR Apixaban [Eliquis] 2.5 mg PO BID Cetirizine HCl 10 mg PO DAILY Clopidogrel Bisulfate [Plavix] 75 mg PO DAILY hydrALAZINE HCL [Apresoline] 100 mg PO TID hydrOXYzine HCL 10 mg PO TID Discontinued Losartan [Cozaar] 50 mg PO BID Discharge Medication List Metoprolol Succinate (ER) [Toprol XL] 50 mg PO DAILY 02/01/20 [History] HYDROcodone/APAP 5-325MG [[place] 5-325] 1 tab PO BID PRN 04/23/20 [History] Metoclopramide [Reglan] 5 mg PO AC-TID 04/23/20 [History] Марина-Twyla 1 tab PO DAILY 04/23/20 [History] Repaglinide 0.5 mg PO AC-BID 04/23/20 [History] Pantoprazole [Protonix] 40 mg PO AC-BID #60 tablet. 04/30/20 [Rx] amLODIPine [Norvasc] 5 mg PO BID #60 tab 04/30/20 [Rx] Nitroglycerin Sl Tabs [Nitrostat] 0.4 mg SUBLINGUAL Q5M PRN #100 tab 05/11/20 [Rx] Ondansetron [Zofran] 4 mg PO DAILY PRN 05/21/20 [History] LORazepam [Ativan] 0.5 mg PO HS 06/05/20 [History] ALPRAZolam [Xanax] 0.25 - 0.5 mg PO MOWEFR 07/13/20 [History] Apixaban [Eliquis] 2.5 mg PO BID 07/13/20 [History] Cetirizine HCl 10 mg PO DAILY 07/13/20 [History] Clopidogrel Bisulfate [Plavix] 75 mg PO DAILY 07/13/20 [History] hydrALAZINE HCL [Apresoline] 100 mg PO TID 07/13/20 [History] hydrOXYzine HCL 10 mg PO TID 07/13/20 [History] Cholestyramine (with Sugar) [Questran Packet] 4 gm PO BID@1000,1800 #14 packet 07/24/20 [Rx] Fluconazole [Diflucan] 150 mg PO DAILY #5 tab 07/24/20 [Rx] Follow up Appointment(s)/Referral(s): [facility] [NON-STAFF] - (Supplied Hospital Bed.) Pavel Velasquez MD [Primary Care Provider] - 1-2 days Gisela Velázquez DO [STAFF PHYSICIAN] - 1 Week (Dr. Velázquez only in office here on Wednesdays) Jae Dalton MD [STAFF PHYSICIAN] - 1 Week Ke Winston MD [STAFF PHYSICIAN] - 1 Week (Patient had laproscopic cholecystectomy 07/23/20) Ambulatory/Diagnostic Orders: Complete Blood Count w/diff [LAB.AMB] Time Frame: 3 Days, Location: None Selected Patient Instructions/Handouts: *Surgery [facility] - Laparoscopic Cholecystectomy Discharge Instructions, Surgical Site Infections (DC) Activity/Diet/Wound Care/Special Instructions: Hemodialysis as per nephrology
[2020-07-24 12:00] LABS: Glucose,Whole Blood 158 mg/dL (75-99)
[2020-07-24 12:16] VITALS: TEMP 98.5
--- NOTE | 2020-07-24 14:41 | P.PN ---
Subjective Progress Note Date: 07/24/20 Principal diagnosis: Elevated liver enzymes, nausea and vomiting Patient was seen and examined at the bedside. She is lying down. She is status postop day 1 for cholecystectomy with liver core biopsy. She states she has some surgical pain but otherwise history. She states she ate a regular breakfast this morning however did not have any taste. She denies any nausea or vomiting. Discharge orders have been implemented and patient will have follow up outpatient dialysis tomorrow as scheduled. Objective - Vital Signs Vital signs: Vital Signs Temp 98.2 F 07/24/20 05:00 Pulse 84 07/24/20 07:41 Resp 18 07/24/20 05:00 BP 128/71 07/24/20 07:41 Pulse Ox 95 07/24/20 05:00 Intake & Output 07/23/20 07/24/20 07/24/20 18:59 06:59 18:59 Intake Total 714 Output Total 5 1999 Balance 709 -1999 Weight 98 kg 101.5 kg Intake: IV 614 Intake, IV Titration 100 Amount Sodium Ferric Gluconat- 100 Sucrose 125 mg In Sodium Chloride 0.9% 100 ml @ 100 mls/hr IVPB DAILY [facility] Rx#:[id number] Output: Hemodialysis 1999 Estimated Blood Loss 5 Other: Voiding Method Toilet Toilet Toilet # Voids 2 1 - Exam On physical examination, patient appears comfortable in no apparent distress. HEAD: Normocephalic, atraumatic. EYES: No scleral icterus. No conjunctival injection. MOUTH: No lesions, tongue midline. NECK: Trachea midline, no gross abnormalities. ABDOMEN: Soft, obese. Bowel sounds are positive. No organomegaly. No guarding or rigidity. Diffuse tenderness to palpation, greater in RUQ. EXTREMITIES: No pedal edema. SKIN: No rashes, no jaundice. NEUROLOGIC: Alert and oriented x3. No focal deficits. - Labs CBC & Chem 7: 07/24/20 07:55 07/24/20 07:55 Labs: Abnormal Lab Results - Last 24 Hours (Table) 07/23/20 07/23/20 07/23/20 Range/Units 12:41 16:11 20:37 WBC (3.8-10.6) k/uL RBC (3.80-5.40) m/uL Hgb (11.4-16.0) gm/dL Hct (34.0-46.0) % RDW (11.5-15.5) % Neutrophils # (1.3-7.7) k/uL Lymphocytes # (1.0-4.8) k/uL Sodium (137-145) mmol/L Potassium (3.5-5.1) mmol/L Chloride (98-107) mmol/L Carbon Dioxide (22-30) mmol/L BUN (7-17) mg/dL Creatinine (0.52-1.04) mg/dL Glucose (74-99) mg/dL POC Glucose (mg/dL) 181 H 169 H 115 H (75-99) mg/dL Calcium (8.4-10.2) mg/dL Total Bilirubin (0.2-1.3) mg/dL AST (14-36) U/L ALT (4-34) U/L Alkaline Phosphatase (38-126) U/L Albumin (3.5-5.0) g/dL 07/24/20 07/24/20 07/24/20 Range/Units 07:04 07:55 07:55 WBC 14.2 H (3.8-10.6) k/uL RBC 3.44 L (3.80-5.40) m/uL Hgb 9.9 L (11.4-16.0) gm/dL Hct 30.5 L (34.0-46.0) % RDW 18.6 H (11.5-15.5) % Neutrophils # 12.5 H (1.3-7.7) k/uL Lymphocytes # 0.8 L (1.0-4.8) k/uL Sodium 131 L (137-145) mmol/L Potassium 5.4 H (3.5-5.1) mmol/L Chloride 97 L (98-107) mmol/L Carbon Dioxide 20 L (22-30) mmol/L BUN 36 H (7-17) mg/dL Creatinine 3.28 H (0.52-1.04) mg/dL Glucose 255 H (74-99) mg/dL POC Glucose (mg/dL) 264 H (75-99) mg/dL Calcium 8.3 L (8.4-10.2) mg/dL Total Bilirubin 4.0 H (0.2-1.3) mg/dL AST 89 H (14-36) U/L ALT 73 H (4-34) U/L Alkaline Phosphatase 786 H (38-126) U/L Albumin 3.0 L (3.5-5.0) g/dL Assessment and Plan Assessment: (1) Elevated liver enzymes Narrative/Plan: 50-year-old female with multiple medical comorbidities including end-stage renal disease on hemodialysis, was seen at the hospital in consult placed for elevated liver enzymes. Patient had market elevation in liver enzymes and predominantly a cholestatic pattern with total bilirubin 5.0, alkaline phosphatase 793, AST 81 and ALT 89. No prior history of elevated liver enzymes or liver disease. Patient has computed tomography scan of the abdomen which showed fatty infiltration of the liver and no evidence of intra-or extrahepatic biliary dilation. Liver serology ordered and negative to date including viral hepatitis panel. Suspicion is for possible drug-induced liver injury is a patient had been treated with antibiotics approximately 2 weeks prior to presentation. Liver enzymes remaining stable. Current Visit: Yes Status: Acute Code(s): R74.8 - ABNORMAL LEVELS OF OTHER SERUM ENZYMES SNOMED Code(s): 531006292 (2) Nausea and vomiting Narrative/Plan: Chronic complaints of nausea and vomiting, improving. Current Visit: No Status: Acute Code(s): R11.2 - NAUSEA WITH VOMITING, UNSPECIFIED SNOMED Code(s): 56271294 (1) Cholelithiasis Current Visit: Yes Status: Acute Code(s): K80.20 - CALCULUS OF GALLBLADDER W/O CHOLECYSTITIS W/O OBSTRUCTION SNOMED Code(s): 476825000 (2) Cholecystitis Current Visit: Yes Status: Acute Code(s): K81.9 - CHOLECYSTITIS, UNSPECIFIED SNOMED Code(s): 53916260 Plan: supportive care Okay for diet as tolerated Ultrasound reviewed MRCP ordered, however the patient refused due to concerns over anxiety surgical service status post op day 1 cholecystectomy Treatment for pruritus including cholestyramine, Benadryl by mouth and cream Okay for discharge with Follow up outpatient for liver core biopsy results and repeat LFTs Thank you for allowing us to participate in the care of the patient we will continue to follow The impression and plan of care has been dictated as directed. Dr. Polo Otto I performed a history and examination of this patient, discussed the same with the dictator. I agree with the dictator's note ,documented as a scribe. Any additional findings or plans will be noted.
--- NOTE | 2020-07-24 18:11 | P.PN ---
Subjective Progress Note Date: 07/24/20 Principal diagnosis: COPD stable not in exacerbation End-stage renal disease on hemodialysis Chest pain cardiovascular service is evaluating Acute pulmonary edema combination of hypertensive heart failure renal failure Abdominal aortic aneurysm Chronic anemia 07/24/2020, patient seen eval examined during rounds labs reviewed medications reviewed cough congestion shortness of breath stable, denies any chest pain, breathing comfortably, tolerated surgery well, patient is status post the liver core biopsy as well, being planned for discharge 07/23/2020, patient is the awake and alert denies any chest pain shortness of breath she is being prepared and getting ready for laparoscopy cholecystectomy later on today via Dr. Cormier, labs reviewed medications reviewed 07/21/2020, patient seen eval examined during the rounds labs reviewed medications reviewed, status post hepatorenal lady scan delayed visualization of gallbladder has been noted with poor opacification overall better findings as stated above. Acute cholecystitis, respiratory status is stable proceed with surgery as planned 07/20/2020, patient seen eval examined during the rounds labs reviewed medi cations reviewed as still of intermittent abdominal discomfort and fullness feeling, patient is being evaluated for MRCP drawn today, shortness of breath is stable denies any chest 07/19/2020, patient seen eval examined denies any chest pain, still have feeling of abdominal fullness, shouldn't is being evaluated by surgical service for laparoscopy cholecystectomy 07/18/2020, patient seen eval examined overall respiratory Neftali remains stable denies any chest pain, patient is due for dialysis today, tolerating therapy well hemodynamic status stable 07/17/2020, patient seen eval examined during rounds labs reviewed medications reviewed him a denies any chest pain or shortness of breath, status post hemodialysis yesterday on Thursday schedule, ultrasound of the liver reveals hepatomegaly fatty infiltration 07/16/2020, patient seen eval examined during the rounds sitting upright in the bed breathing comfortably at room air, denies any chest pain or shortness of breath on activity and exertion however mild shortness of breaths present, patient is the do for dialysis, This is a pleasant 50-year-old -[place] female past medical history significant for coronary artery disease status post bypass grafting, chronic diastolic heart failure end-stage renal disease on hemodialysis, peripheral artery disease the left leg, hypertension, dyslipidemia, COPD, diabetes mellitus and chronic nicotine dependence. She presented to the hospital due to midsternal chest pain without radiation, nausea and vomiting, patient complains of shortness of breath which is chronic but also has shortness of breath with minimal activity. She states she doesn't usually wear up a flight of stairs. Walking to the bathroom she sometimes has chest pain it just depends. She denies any sweats, no lightheadedness or dizziness. At the time of evaluation, patient is complaining of feeling tired. She states she has been chronically short of breath. She continues to have chest pressure in the midsternal area. Initial blood pressure was 190/85. Troponins 0.025, 0.026 on 2 draws. 3.3, chloride 93, CO2 25, BUN 26 and creatinine 2.18, blood sugar 453. Total bilirubin 4.8, AST 70, ALT 84, alk phosphatase 696. Cholesterol 249, triglycerides 230, LDL 170, HDL 33. EKG is sinus rhythm, right bundle branch block. Patient was given morphine and Sebree in the emergency center for chest pain. Chest x-ray reveals cardiomegaly, pulmonary vascular congestion and pulmonary edema. Objective - Vital Signs Vital signs: Vital Signs Temp 98.5 F 07/24/20 12:15 Pulse 84 07/24/20 12:15 Resp 18 07/24/20 12:15 BP 128/71 07/24/20 07:41 Pulse Ox 98 07/24/20 12:15 Intake & Output 07/23/20 07/24/20 07/24/20 18:59 06:59 18:59 Intake Total 714 Output Total 5 1999 Balance 709 -1999 Weight 98 kg 101.5 kg Intake: IV 614 Intake, IV Titration 100 Amount Sodium Ferric Gluconat- 100 Sucrose 125 mg In Sodium Chloride 0.9% 100 ml @ 100 mls/hr IVPB DAILY [facility] Rx#:[id number] Output: Hemodialysis 1999 Estimated Blood Loss 5 Other: Voiding Method Toilet Toilet Toilet # Voids 2 1 - Exam - Constitutional General appearance: average body habitus, cooperative, disheveled - EENT Eyes: EOMI, PERRLA ENT: normal oropharynx Ears: bilateral: normal - Neck Neck: normal ROM Carotids: bilateral: upstroke normal Thyroid: bilateral: normal size - Respiratory Respiratory: bilateral: CTA - Cardiovascular Rhythm: regular Heart sounds: normal: S1, S2 - Gastrointestinal General gastrointestinal: decreased bowel sounds, distended, soft - Integumentary Integumentary: decreased turgor - Neurologic Neurologic: CNII-XII intact - Musculoskeletal Musculoskeletal: gait normal, generalized weakness, strength equal bilaterally - Psychiatric Psychiatric: A&O x's 3, appropriate affect, intact judgment & insight - Labs CBC & Chem 7: 07/24/20 07:55 07/24/20 07:55 Labs: Abnormal Lab Results - Last 24 Hours (Table) 07/23/20 07/24/20 07/24/20 Range/Units 20:37 07:04 07:55 WBC (3.8-10.6) k/uL RBC (3.80-5.40) m/uL Hgb (11.4-16.0) gm/dL Hct (34.0-46.0) % RDW (11.5-15.5) % Neutrophils # (1.3-7.7) k/uL Lymphocytes # (1.0-4.8) k/uL Sodium 131 L (137-145) mmol/L Potassium 5.4 H (3.5-5.1) mmol/L Chloride 97 L (98-107) mmol/L Carbon Dioxide 20 L (22-30) mmol/L BUN 36 H (7-17) mg/dL Creatinine 3.28 H (0.52-1.04) mg/dL Glucose 255 H (74-99) mg/dL POC Glucose (mg/dL) 115 H 264 H (75-99) mg/dL Calcium 8.3 L (8.4-10.2) mg/dL Total Bilirubin 4.0 H (0.2-1.3) mg/dL AST 89 H (14-36) U/L ALT 73 H (4-34) U/L Alkaline Phosphatase 786 H (38-126) U/L Albumin 3.0 L (3.5-5.0) g/dL PTH Intact (14.0-72.0) pg/mL 07/24/20 07/24/20 07/24/20 Range/Units 07:55 07:55 11:59 WBC 14.2 H (3.8-10.6) k/uL RBC 3.44 L (3.80-5.40) m/uL Hgb 9.9 L (11.4-16.0) gm/dL Hct 30.5 L (34.0-46.0) % RDW 18.6 H (11.5-15.5) % Neutrophils # 12.5 H (1.3-7.7) k/uL Lymphocytes # 0.8 L (1.0-4.8) k/uL Sodium (137-145) mmol/L Potassium (3.5-5.1) mmol/L Chloride (98-107) mmol/L Carbon Dioxide (22-30) mmol/L BUN (7-17) mg/dL Creatinine (0.52-1.04) mg/dL Glucose (74-99) mg/dL POC Glucose (mg/dL) 158 H (75-99) mg/dL Calcium (8.4-10.2) mg/dL Total Bilirubin (0.2-1.3) mg/dL AST (14-36) U/L ALT (4-34) U/L Alkaline Phosphatase (38-126) U/L Albumin (3.5-5.0) g/dL PTH Intact 494.6 H (14.0-72.0) pg/mL Assessment and Plan Assessment: COPD stable not in exacerbation Drug-induced liver injury Acute on Chronic cholecystitis End-stage renal disease on hemodialysis Chest pain cardiovascular service is evaluating Acute pulmonary edema combination of hypertensive heart failure renal failure Abdominal aortic aneurysm Chronic anemia Hepatomegaly Plan: Patient status post a laparoscopy cholecystectomy as well as core biopsy of the liver Continue hemodialysis as planned Continue bronchodilators Increase activity as tolerated Further recommendations pending plan of care as per clinical response the patient Agree with discharge planning follow-up on outpatient basis Time with Patient: Greater than 30
== END 2020-07-24 15:18 | disposition home or self-care (01) | DRG 417 ==
LOC: EC 08:41 → 3SCARD 14:35 → 5NMEDONC 07-19 17:23
PROVIDERS: ADMIT Family Medicine; ATTEND Family Medicine
PROC: 5A1D70Z Performance of Urinary Filtration, Intermittent, Less than 6 Hours Per Day (ICD-10-PCS; 2020-07-18)
PROC: 05HD33Z Insertion of Infusion Device into Right Cephalic Vein, Percutaneous Approach (ICD-10-PCS; 2020-07-18 11:30)
PROC: 0FT44ZZ Resection of Gallbladder, Percutaneous Endoscopic Approach (ICD-10-PCS; principal; 2020-07-23 07:30)
PROC: 0FB14ZX Excision of Right Lobe Liver, Percutaneous Endoscopic Approach, Diagnostic (ICD-10-PCS; principal; 2020-07-23 07:30)
DX: K80.13 Calculus of gallbladder with acute and chronic cholecystitis with obstruction (principal); N18.6 End stage renal disease; K68.9 Other disorders of retroperitoneum; B19.9 Unspecified viral hepatitis without hepatic coma; D68.2 Hereditary deficiency of other clotting factors; E87.2 Acidosis; I13.2 Hypertensive heart and chronic kidney disease with heart failure and with stage 5 chronic kidney disease, or end stage renal disease; I50.32 Chronic diastolic (congestive) heart failure; D63.1 Anemia in chronic kidney disease; M32.9 Systemic lupus erythematosus, unspecified; E11.22 Type 2 diabetes mellitus with diabetic chronic kidney disease; E11.43 Type 2 diabetes mellitus with diabetic autonomic (poly)neuropathy; E11.51 Type 2 diabetes mellitus with diabetic peripheral angiopathy without gangrene; E78.5 Hyperlipidemia, unspecified; F17.210 Nicotine dependence, cigarettes, uncomplicated; F31.9 Bipolar disorder, unspecified; F40.240 Claustrophobia; I25.10 Atherosclerotic heart disease of native coronary artery without angina pectoris; I25.2 Old myocardial infarction; I45.10 Unspecified right bundle-branch block; I70.213 Atherosclerosis of native arteries of extremities with intermittent claudication, bilateral legs; E83.9 Disorder of mineral metabolism, unspecified; I71.4 Abdominal aortic aneurysm, without rupture; K72.90 Hepatic failure, unspecified without coma; I70.8 Atherosclerosis of other arteries; J44.9 Chronic obstructive pulmonary disease, unspecified; K21.9 Gastro-esophageal reflux disease without esophagitis; K31.84 Gastroparesis; K71.9 Toxic liver disease, unspecified; T36.95XA Adverse effect of unspecified systemic antibiotic, initial encounter; K74.60 Unspecified cirrhosis of liver; K76.0 Fatty (change of) liver, not elsewhere classified; Z87.19 Personal history of other diseases of the digestive system; L29.9 Pruritus, unspecified; M54.16 Radiculopathy, lumbar region; Z79.01 Long term (current) use of anticoagulants; Z79.02 Long term (current) use of antithrombotics/antiplatelets; Z79.4 Long term (current) use of insulin; Z79.899 Other long term (current) drug therapy; Z82.49 Family history of ischemic heart disease and other diseases of the circulatory system; Z82.5 Family history of asthma and other chronic lower respiratory diseases; Z83.2 Family history of diseases of the blood and blood-forming organs and certain disorders involving the immune mechanism; Z80.9 Family history of malignant neoplasm, unspecified; Z86.718 Personal history of other venous thrombosis and embolism; Z86.73 Personal history of transient ischemic attack (TIA), and cerebral infarction without residual deficits; Z91.19 Patient's noncompliance with other medical treatment and regimen; Z95.1 Presence of aortocoronary bypass graft; Z95.5 Presence of coronary angioplasty implant and graft; Z99.2 Dependence on renal dialysis; Z87.01 Personal history of pneumonia (recurrent); Z95.9 Presence of cardiac and vascular implant and graft, unspecified; Z88.2 Allergy status to sulfonamides; Z88.1 Allergy status to other antibiotic agents; Z91.040 Latex allergy status
CPT/HCPCS: 36410; 36415; 71046; 74176; 76705; 76937; 78226; 80053; 80061; 80074; 81001; 82103; 82105; 82140; 82390; 82728; 83516; 83540; 83550; 83735; 83970; 84100; 84484; 85025; 85610; 85730; 86038; 87086; 88304; 88307; 88313; 90935; 93005; 96374; 96375; 96376; 99285

== ENCOUNTER 2020-08-01 21:10 | Inpatient (IN) | payer MEDICARE, OTHER ==
[2020-08-01] MEDS ORDERED: diphenhydrAMINE 50 MG/ML 1 ML VIAL IVP STA (22:10)
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
[2020-08-01] MEDS ORDERED: NALOXONE 0.4 MG/ML 1 ML VIAL IV PRN (22:54)
[2020-08-01] MEDS ORDERED: ONDANSETRON 4 MG/2 ML VIAL IVP PRN (22:54)
[2020-08-01] MEDS ORDERED: IBUPROFEN 400 MG TAB PO PRN (22:54)
[2020-08-01] MEDS ORDERED: ACETAMINOPHEN TAB 325 MG TAB PO PRN (22:54)
[2020-08-01] MEDS ORDERED: NITROGLYCERIN SL TABS 0.4 MG TAB SUBLINGUAL PRN (23:01)
[2020-08-01] MEDS ORDERED: ONDANSETRON 4 MG TAB PO PRN (23:01)
[2020-08-02] MEDS: HYDROmorphone 0.5 MG/0.5 ML SYRINGE IVP PRN ×4 (00:51→14:31)
[2020-08-02] MEDS: SODIUM CHLORIDE 0.9% 1,000 ML IV SCH (02:45)
[2020-08-02] MEDS: diphenhydrAMINE 25 MG CAP PO PRN ×2 (06:13→16:59)
[2020-08-02 07:15] LABS: Glucose,Whole Blood 213 mg/dL (75-99)
[2020-08-02] MEDS: amLODIPine 5 MG TAB PO SCH ×2 (07:26→20:46)
[2020-08-02] MEDS: APIXABAN 2.5 MG TABLET PO SCH ×2 (07:26→20:46)
[2020-08-02] MEDS: METOPROLOL SUCCINATE (ER) 50 MG TAB.ER.24H PO SCH (07:27)
[2020-08-02] MEDS: hydrALAZINE HCL 50 MG TAB PO SCH ×3 (07:27→20:46)
[2020-08-02] MEDS: LORATADINE 10 MG TAB PO SCH (07:27)
[2020-08-02] MEDS: CLOPIDOGREL 75 MG TAB PO SCH (07:27)
[2020-08-02] MEDS: METOCLOPRAMIDE 5 MG TAB PO SCH ×3 (07:28→16:59)
[2020-08-02] MEDS: REPAGLINIDE 1 MG TAB PO SCH ×2 (07:29→17:00)
[2020-08-02] MEDS: hydrOXYzine HCL 10 MG TAB PO SCH ×3 (07:29→20:47)
[2020-08-02] MEDS ORDERED: PANTOPRAZOLE 40 MG TABLET PO SCH (07:30)
[2020-08-02] MEDS: PANTOPRAZOLE 40 MG/10 ML VIAL IV SCH (07:30)
[2020-08-02] MEDS ORDERED: METOCLOPRAMIDE 5 MG TAB PO SCH (07:30)
[2020-08-02] MEDS ORDERED: NON FORMULARY DRUG (Rena-Vite 1 TAB) PO SCH (09:00)
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
[2020-08-02 11:00] LABS: Albumin 2.9 g/dL (3.5-5.0); Calcium 8.4 mg/dL (8.4-10.2); Potassium 4.7 mmol/L (3.5-5.1); Total Bilirubin 3.3 mg/dL (0.2-1.3); Total Protein 6.3 g/dL (6.3-8.2)
[2020-08-02 11:26] LABS: Anisocytosis Slight; Basophils # (A) 0.1 k/uL (0-0.2); Basophils % (A) 1 %; Eosinophils # (A) 0.3 k/uL (0-0.7); Eosinophils % (A) 3 %; HCT 30.7 % (34.0-46.0); HGB 9.8 gm/dL (11.4-16.0); Lymphocytes # (A) 1.4 k/uL (1.0-4.8); Lymphocytes % (A) 13 %; MCH 28.5 pg (25.0-35.0); MCHC 31.9 g/dL (31.0-37.0); MCV 89.1 fL (80.0-100.0); Mean Platelet Volume 8.5; Monocytes # (A) 0.7 k/uL (0-1.0); Monocytes % (A) 6 %; Neutrophils # (A) 8.3 k/uL (1.3-7.7); Neutrophils % (A) 76 %; Platelet Count 310 k/uL (150-450); RBC 3.44 m/uL (3.80-5.40); RDW 18.5 % (11.5-15.5); WBC 10.9 k/uL (3.8-10.6)
[2020-08-02 11:46] LABS: Glucose,Whole Blood 259 mg/dL (75-99)
[2020-08-02] MEDS: INSULIN ASPART (NovoLOG) 100 UNIT/ML VIAL SQ SCH ×3 (11:59→20:46)
[2020-08-02 12:01] LABS: Poikilocytosis (M) Present; Target Cells Present
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
[2020-08-02 16:46] LABS: Glucose,Whole Blood 127 mg/dL (75-99)
[2020-08-02 20:26] LABS: Glucose,Whole Blood 139 mg/dL (75-99)
[2020-08-02] MEDS: LORazepam 0.5 MG TAB PO SCH (20:47)
[2020-08-02] MEDS: HYDROcodone/APAP 5-325MG 1 EACH TAB PO PRN (20:50)
--- NOTE | 2020-08-02 22:45 | HP ---
HISTORY AND PHYSICAL SUBJECTIVE: This is a white female who came in with extreme fluid overload, nausea, not feeling well with increased abdominal pain, possible ascites. Her recent liver biopsy done during cholecystectomy surgery showed just cholestasis changes, no signs of overt cirrhosis. She states she has noticed fluid draining from her belly button down to her legs. She denies fever or chills. No nausea or vomiting. No chest pain or shortness of breath, complaining of worsening edema in her lower extremities. No fever, no chills. Blood pressure is on the higher side. No dizziness or syncope. She has diabetes mellitus. Fourteen-point review of systems negative except she says she does not feel good. She is short of breath. Abdominal pain. HEART: Regular rate and rhythm. Abdomen is distended due to obesity. Questionable fluid wave. EXTREMITIES: Two plus pedal edema. Generalized anasarca changes. Lungs are fairly clear. Mild rales at the base. PAST MEDICAL HISTORY: Asthma, heart failure, COPD, CVA, TIA, diabetes mellitus, DVT, GERD, hypertension, myocardial infarction, pneumonia, renal disease, vascular disorder, GI bleed with ascites, erosive esophagitis, end-stage renal disease, [place] cath and port, CVA in 2012. She has factor V deficiency, lupus, bilateral fem-pop disease, bilateral hilar soft tissue prominence, bilateral lower extremity claudication. History of anxiety, bipolar, depression. PAST SURGICAL HISTORY: Cholecystectomy, CABG surgery, heart catheterization, tubal ligation, bilateral common iliac artery stents, EGD. SOCIAL HISTORY: She lives alone. She moved here from [place]. Takes a bus. Current smoker. FAMILY HISTORY: Mother with asthma, cancer. Father with DVT, myocardial infarction. Daughter DVT, PE. MEDICATIONS: 1. Metoprolol succinate 50 mg daily. 2. [place] 5/325 b.i.d. 3. Reglan 5 mg before meals t.i.d. 4. Protonix 40 mg b.i.d. 5. Norvasc 5 mg b.i.d. 6. Nitroglycerin sublingually p.r.n. 7. Ativan 0.5 mg daily. 8. Xanax 0.5 daily. 9. Eliquis 2.5 b.i.d. 10.Cetirizine 10 mg daily. 11.Plavix 75 mg daily. 12.Hydralazine 100 t.i.d. 13.Cholestyramine 4 mg b.i.d. ALLERGIES: See list. PHYSICAL EXAMINATION: Pulse is 97, temperature 98, respiratory rate 18 to 20, blood pressure 169 over 90s to 80s, oxygen 93 to 97. Weight is 97.8 kg. ASSESSMENT: 1. End-stage renal disease with fluid overload. 2. Insulin-dependent diabetes mellitus. 3. Hypertension. 4. Chronic kidney disease. 5. Abdominal pain, status post recent colonoscopy. 6. Cholestasis of the liver. 7. Diastolic congestive heart failure. 8. Chronic obstructive pulmonary disease. 9. Insulin-dependent diabetes mellitus. Continue current treatments. Follow up in next 24 to 48 hours with multiple consults, including surgery consult for abdominal pain and renal dialysis catheter consultation. MMODL / IJN: [id number] /
[2020-08-03] MEDS: SODIUM CHLORIDE 0.9% 1,000 ML IV SCH (01:54)
[2020-08-03 07:09] LABS: Glucose,Whole Blood 122 mg/dL (75-99)
[2020-08-03] MEDS: INSULIN ASPART (NovoLOG) 100 UNIT/ML VIAL SQ SCH ×4 (07:20→22:25)
[2020-08-03] MEDS: HYDROcodone/APAP 5-325MG 1 EACH TAB PO PRN ×2 (07:24→22:24)
[2020-08-03] MEDS: hydrALAZINE HCL 50 MG TAB PO SCH ×3 (07:24→22:24)
[2020-08-03] MEDS: METOPROLOL SUCCINATE (ER) 50 MG TAB.ER.24H PO SCH (07:25)
[2020-08-03] MEDS: CLOPIDOGREL 75 MG TAB PO SCH (07:25)
[2020-08-03] MEDS: LORATADINE 10 MG TAB PO SCH (07:25)
[2020-08-03] MEDS: amLODIPine 5 MG TAB PO SCH ×2 (07:25→22:24)
[2020-08-03] MEDS: APIXABAN 2.5 MG TABLET PO SCH ×2 (07:25→22:24)
[2020-08-03] MEDS: REPAGLINIDE 1 MG TAB PO SCH ×2 (07:26→16:28)
[2020-08-03] MEDS: METOCLOPRAMIDE 5 MG TAB PO SCH ×3 (07:27→16:28)
[2020-08-03] MEDS: hydrOXYzine HCL 10 MG TAB PO SCH ×3 (07:27→22:25)
[2020-08-03] MEDS: PANTOPRAZOLE 40 MG/10 ML VIAL IV SCH (07:27)
[2020-08-03] MEDS: HYDROmorphone 0.5 MG/0.5 ML SYRINGE IVP PRN ×2 (08:22→16:28)
[2020-08-03] MEDS: diphenhydrAMINE 25 MG CAP PO PRN (09:26)
[2020-08-03 09:48] LABS: Anisocytosis Slight; Basophils % (A) 0 %; Eosinophils # (A) 0.3 k/uL (0-0.7); Eosinophils % (A) 3 %; HCT 29.6 % (34.0-46.0); HGB 9.5 gm/dL (11.4-16.0); Lymphocytes # (A) 0.9 k/uL (1.0-4.8); Lymphocytes % (A) 9 %; MCH 28.6 pg (25.0-35.0); MCHC 32.2 g/dL (31.0-37.0); MCV 88.9 fL (80.0-100.0); Mean Platelet Volume 8.3; Monocytes # (A) 0.5 k/uL (0-1.0); Monocytes % (A) 5 %; Neutrophils # (A) 8.4 k/uL (1.3-7.7); Neutrophils % (A) 82 %; Platelet Count 303 k/uL (150-450); RBC 3.33 m/uL (3.80-5.40); RDW 18.6 % (11.5-15.5); WBC 10.3 k/uL (3.8-10.6)
[2020-08-03 09:59] LABS: Albumin 2.9 g/dL (3.5-5.0); Calcium 8.2 mg/dL (8.4-10.2); Phosphorus 5.6 mg/dL (2.5-4.5); Total Bilirubin 3.1 mg/dL (0.2-1.3); Total Protein 6.2 g/dL (6.3-8.2)
[2020-08-03] MEDS ORDERED: hydrALAZINE HCL 20 MG/ML 1 ML VIAL IVP PRN (10:16)
--- NOTE | 2020-08-03 10:16 | P.PN ---
Subjective patient is seen in follow-up for end-stage renal disease. She is maintained on hemodialysis on Thursday schedule. tolerated 3 L ultrafiltration yesterday. Still sore in the abdomen but better. No vomiting or diarrhea. Tolerating oral intake. Vital signs are stable. General: The patient appeared well nourished and normally developed. HEENT: Head exam is unremarkable. Neck is without jugular venous distension. LUNGS: Lungs are clear to auscultation and percussion. Breath sounds decreased. HEART: Rate and Rhythm are regular. ABDOMEN: soft. Generalized tenderness. EXTREMITITES: 2+ edema. Objective - Vital Signs Vital signs: Vital Signs Temp 98.1 F 08/03/20 07:00 Pulse 82 08/03/20 07:00 Resp 19 08/03/20 07:25 BP 175/83 08/03/20 07:00 Pulse Ox 97 08/03/20 07:00 Intake & Output 08/02/20 08/03/20 08/03/20 18:59 06:59 18:59 Intake Total 240 500 Output Total 3000 Balance 240 -2500 Intake: Oral 240 500 Output: Hemodialysis 3000 Other: # Voids 1 1 - Labs CBC & Chem 7: 08/03/20 09:15 08/02/20 10:37 Labs: Abnormal Lab Results - Last 24 Hours (Table) 08/02/20 08/02/20 08/02/20 Range/Units 10:37 10:37 11:44 WBC 10.9 H (3.8-10.6) k/uL RBC 3.44 L (3.80-5.40) m/uL Hgb 9.8 L (11.4-16.0) gm/dL Hct 30.7 L (34.0-46.0) % RDW 18.5 H (11.5-15.5) % Neutrophils # 8.3 H (1.3-7.7) k/uL Lymphocytes # (1.0-4.8) k/uL BUN 45 H (7-17) mg/dL Creatinine 3.99 H (0.52-1.04) mg/dL Glucose 219 H (74-99) mg/dL POC Glucose (mg/dL) 259 H (75-99) mg/dL Total Bilirubin 3.3 H (0.2-1.3) mg/dL AST 82 H (14-36) U/L ALT 77 H (4-34) U/L Alkaline Phosphatase 1012 H (38-126) U/L Albumin 2.9 L (3.5-5.0) g/dL 08/02/20 08/02/20 08/03/20 Range/Units 16:44 20:23 07:07 WBC (3.8-10.6) k/uL RBC (3.80-5.40) m/uL Hgb (11.4-16.0) gm/dL Hct (34.0-46.0) % RDW (11.5-15.5) % Neutrophils # (1.3-7.7) k/uL Lymphocytes # (1.0-4.8) k/uL BUN (7-17) mg/dL Creatinine (0.52-1.04) mg/dL Glucose (74-99) mg/dL POC Glucose (mg/dL) 127 H 139 H 122 H (75-99) mg/dL Total Bilirubin (0.2-1.3) mg/dL AST (14-36) U/L ALT (4-34) U/L Alkaline Phosphatase (38-126) U/L Albumin (3.5-5.0) g/dL 08/03/20 Range/Units 09:15 WBC (3.8-10.6) k/uL RBC 3.33 L (3.80-5.40) m/uL Hgb 9.5 L (11.4-16.0) gm/dL Hct 29.6 L (34.0-46.0) % RDW 18.6 H (11.5-15.5) % Neutrophils # 8.4 H (1.3-7.7) k/uL Lymphocytes # 0.9 L (1.0-4.8) k/uL BUN (7-17) mg/dL Creatinine (0.52-1.04) mg/dL Glucose (74-99) mg/dL POC Glucose (mg/dL) (75-99) mg/dL Total Bilirubin (0.2-1.3) mg/dL AST (14-36) U/L ALT (4-34) U/L Alkaline Phosphatase (38-126) U/L Albumin (3.5-5.0) g/dL Assessment and Plan Plan: Assessment: 1. End-stage renal disease maintained on hemodialysis on Thursday schedule. 2. Volume overload. 3. Insulin-dependent diabetes mellitus. 4. Hypertension with chronic kidney disease. 5. Abdominal pain. Patient had recent cholecystectomy. Surgery following. Plan: hemodialysis today. plan for hemodialysis again tomorrow mostly for ultrafiltration. follow-up phosphorus level. discontinue Motrin.
[2020-08-03 10:17] LABS: Potassium 4.3 mmol/L (3.5-5.1)
[2020-08-03] MEDS ORDERED: diazePAM 5 MG TAB PO STA (10:26)
--- NOTE | 2020-08-03 11:16 | P.PN ---
Subjective Progress Note Date: 08/03/20 CHIEF COMPLAINT: Abdominal pain HISTORY OF PRESENT ILLNESS: Patient is seen and examined with Dr. Winston. Patient admitted to the hospital for fluid overload. She received dialysis yesterday and scheduled again for today. We are following her in regards to her abdominal pain. She's had some improvement in her pain. Any nausea or vomiting. She is tolerating low-fat diet. Patient seen by GI service. They've ordered MRCP. She is afebrile. WBC 10.3 hemoglobin 9.5 total bili 3.1 AST 96 ALT 78 alk phos 1041 PHYSICAL EXAM: VITAL SIGNS: Reviewed. GENERAL: Well-developed in no acute distress. HEENT: No sclera icterus. Extraocular movements grossly intact. Moist buccal mucosa. Head is atraumatic, normocephalic. ABDOMEN: Soft. Obese nondistended. diffuse tenderness. NEUROLOGIC: Alert and oriented. Cranial nerves II through XII grossly intact. ASSESSMENT: 1. Fluid overload after missing dialysis 2. Abdominal pain. Computed tomography scan results reviewed by Dr. Winston no evidence of bile leak 3. End-stage renal disease. Nephrology has hemodialysis scheduled today and tomorrow 4. Recent laparoscopic cholecystectomy completed on 07/23/2020 5. Insulin-dependent diabetes mellitus PLAN: -Conservative management -No surgical intervention required -Continue low-fat diet Physician Fisheries Management Biologist note has been reviewed by physician. Signing provider agrees with the documented findings, assessment, and plan of care. Objective - Vital Signs Vital signs: Vital Signs Temp 98.1 F 08/03/20 07:00 Pulse 82 08/03/20 07:00 Resp 19 08/03/20 07:25 BP 175/83 08/03/20 07:00 Pulse Ox 97 08/03/20 07:00 Intake & Output 08/02/20 08/03/20 08/03/20 18:59 06:59 18:59 Intake Total 240 500 Output Total 3000 Balance 240 -2500 Intake: Oral 240 500 Output: Hemodialysis 3000 Other: # Voids 1 1 - Labs CBC & Chem 7: 08/03/20 09:15 08/03/20 09:15 Labs: Abnormal Lab Results - Last 24 Hours (Table) 08/02/20 08/02/20 08/02/20 Range/Units 10:37 10:37 11:44 WBC 10.9 H (3.8-10.6) k/uL RBC 3.44 L (3.80-5.40) m/uL Hgb 9.8 L (11.4-16.0) gm/dL Hct 30.7 L (34.0-46.0) % RDW 18.5 H (11.5-15.5) % Neutrophils # 8.3 H (1.3-7.7) k/uL Lymphocytes # (1.0-4.8) k/uL Sodium (137-145) mmol/L BUN 45 H (7-17) mg/dL Creatinine 3.99 H (0.52-1.04) mg/dL Glucose 219 H (74-99) mg/dL POC Glucose (mg/dL) 259 H (75-99) mg/dL Calcium (8.4-10.2) mg/dL Phosphorus (2.5-4.5) mg/dL Total Bilirubin 3.3 H (0.2-1.3) mg/dL AST 82 H (14-36) U/L ALT 77 H (4-34) U/L Alkaline Phosphatase 1012 H (38-126) U/L Total Protein (6.3-8.2) g/dL Albumin 2.9 L (3.5-5.0) g/dL 08/02/20 08/02/20 08/03/20 Range/Units 16:44 20:23 07:07 WBC (3.8-10.6) k/uL RBC (3.80-5.40) m/uL Hgb (11.4-16.0) gm/dL Hct (34.0-46.0) % RDW (11.5-15.5) % Neutrophils # (1.3-7.7) k/uL Lymphocytes # (1.0-4.8) k/uL Sodium (137-145) mmol/L BUN (7-17) mg/dL Creatinine (0.52-1.04) mg/dL Glucose (74-99) mg/dL POC Glucose (mg/dL) 127 H 139 H 122 H (75-99) mg/dL Calcium (8.4-10.2) mg/dL Phosphorus (2.5-4.5) mg/dL Total Bilirubin (0.2-1.3) mg/dL AST (14-36) U/L ALT (4-34) U/L Alkaline Phosphatase (38-126) U/L Total Protein (6.3-8.2) g/dL Albumin (3.5-5.0) g/dL 08/03/20 08/03/20 Range/Units 09:15 09:15 WBC (3.8-10.6) k/uL RBC 3.33 L (3.80-5.40) m/uL Hgb 9.5 L (11.4-16.0) gm/dL Hct 29.6 L (34.0-46.0) % RDW 18.6 H (11.5-15.5) % Neutrophils # 8.4 H (1.3-7.7) k/uL Lymphocytes # 0.9 L (1.0-4.8) k/uL Sodium 135 L (137-145) mmol/L BUN 34 H (7-17) mg/dL Creatinine 3.42 H (0.52-1.04) mg/dL Glucose 155 H (74-99) mg/dL POC Glucose (mg/dL) (75-99) mg/dL Calcium 8.2 L (8.4-10.2) mg/dL Phosphorus 5.6 H (2.5-4.5) mg/dL Total Bilirubin 3.1 H (0.2-1.3) mg/dL AST 96 H (14-36) U/L ALT 78 H (4-34) U/L Alkaline Phosphatase 1041 H (38-126) U/L Total Protein 6.2 L (6.3-8.2) g/dL Albumin 2.9 L (3.5-5.0) g/dL
[2020-08-03 11:22] LABS: Glucose,Whole Blood 238 mg/dL (75-99)
[2020-08-03 16:21] LABS: Glucose,Whole Blood 88 mg/dL (75-99)
[2020-08-03 16:41] LABS: % Iron Saturation 20.51 (12.00-45.00)
[2020-08-03 16:53] LABS: Ferritin 883.7 ng/mL (10.0-291.0)
--- NOTE | 2020-08-03 17:32 | PN ---
PROGRESS NOTE This patient is getting more dialysis today and tomorrow for fluid overload. She was seen by a surgeon for abdominal pain. For her fluid overload received dialysis yesterday and is scheduled again for today. She has some improvement in her pain. She is supposed to get MRCP, but it cannot be done for 6 weeks after an MRI cholecystectomy. She is afebrile. White count is 10.3, hemoglobin 9.5, total bilirubin 3.1, AST 96, ALT 78, alkaline phosphatase 1041. Her liver biopsy showed cholestatic biliary pattern. Vital signs are stable. CARDIOVASCULAR: S1, S2. PSYCH: Flat mood and affect. NEUROLOGIC: Alert and oriented x3. Abdomen is soft, nontender. ASSESSMENT: 1. Fluid overload after missing dialysis. 2. Possible gastroparesis. They do not believe there is a bile duct leak. 3. End-stage renal disease. 4. Cholecystectomy. 5. Insulin-dependent diabetes mellitus. Continue to monitor liver enzymes and follow electrolytes. 1. Acute on chronic anemia. 2. cholestatic liver pattern. 3. Hypoalbuminemia. Possibly get a dietitian to see her. 4. She is taking Benadryl for chronic itching due to cholestasis and liver failure and elevated bilirubin. 5. Eliquis for atrial fibrillation. 6. Hypertension medicines are also given. Prognosis guarded. MMODL / IJN: [id number] /
[2020-08-03 20:32] LABS: Glucose,Whole Blood 173 mg/dL (75-99)
[2020-08-03] MEDS: LORazepam 0.5 MG TAB PO SCH (22:24)
[2020-08-03] MEDS: diphenhydrAMINE 2% CREAM 28.4 GM TUBE TOPICAL SCH (22:25)
[2020-08-04] MEDS: SODIUM CHLORIDE 0.9% 1,000 ML IV SCH ×2 (00:17→22:35)
[2020-08-04] MEDS: HYDROmorphone 0.5 MG/0.5 ML SYRINGE IVP PRN ×5 (01:10→21:09)
[2020-08-04 06:55] LABS: Glucose,Whole Blood 102 mg/dL (75-99)
[2020-08-04] MEDS: INSULIN ASPART (NovoLOG) 100 UNIT/ML VIAL SQ SCH ×4 (07:03→21:08)
[2020-08-04] MEDS ORDERED: PANTOPRAZOLE 40 MG TABLET PO SCH (07:30)
[2020-08-04] MEDS: REPAGLINIDE 1 MG TAB PO SCH ×2 (07:42→17:01)
[2020-08-04] MEDS: HYDROcodone/APAP 5-325MG 1 EACH TAB PO PRN (07:42)
[2020-08-04] MEDS: LORATADINE 10 MG TAB PO SCH (07:43)
[2020-08-04] MEDS: APIXABAN 2.5 MG TABLET PO SCH ×2 (07:43→21:07)
[2020-08-04] MEDS: CLOPIDOGREL 75 MG TAB PO SCH (07:43)
[2020-08-04] MEDS: METOPROLOL SUCCINATE (ER) 50 MG TAB.ER.24H PO SCH (07:44)
[2020-08-04] MEDS: hydrALAZINE HCL 50 MG TAB PO SCH ×3 (07:44→21:07)
[2020-08-04] MEDS: amLODIPine 5 MG TAB PO SCH ×2 (07:44→21:08)
[2020-08-04] MEDS: hydrOXYzine HCL 10 MG TAB PO SCH ×3 (07:44→21:08)
[2020-08-04] MEDS: METOCLOPRAMIDE 5 MG TAB PO SCH ×3 (07:45→17:00)
[2020-08-04] MEDS: diphenhydrAMINE 2% CREAM 28.4 GM TUBE TOPICAL SCH ×2 (07:46→21:10)
[2020-08-04] MEDS: diphenhydrAMINE 25 MG CAP PO PRN (08:35)
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
--- NOTE | 2020-08-04 09:59 | P.PN ---
Subjective patient is seen in follow-up for end-stage renal disease. She is maintained on hemodialysis on Thursday schedule. tolerated 4 L ultrafiltration yesterday. Still sore in the abdomen but better. No vomiting or diarrhea. Tolerating oral intake. Vital signs are stable. General: The patient appeared well nourished and normally developed. HEENT: Head exam is unremarkable. Neck is without jugular venous distension. LUNGS: Lungs are clear to auscultation and percussion. Breath sounds decreased. HEART: Rate and Rhythm are regular. ABDOMEN: soft. Generalized tenderness. EXTREMITITES: 2+ edema. Objective - Vital Signs Vital signs: Vital Signs Temp 97.4 F L 08/04/20 07:00 Pulse 81 08/04/20 07:00 Resp 17 08/04/20 08:35 BP 162/69 08/04/20 07:00 Pulse Ox 97 08/04/20 07:00 Intake & Output 08/03/20 08/04/20 08/04/20 18:59 06:59 18:59 Output Total 4200 Balance -4200 Output: Hemodialysis 4200 Other: Voiding Method Toilet Toilet # Voids 2 2 # Bowel Movements 1 - Labs CBC & Chem 7: 08/03/20 09:15 08/03/20 09:15 Labs: Abnormal Lab Results - Last 24 Hours (Table) 08/02/20 08/03/20 08/03/20 Range/Units 10:37 09:15 11:21 Sodium 135 L (137-145) mmol/L BUN 34 H (7-17) mg/dL Creatinine 3.42 H (0.52-1.04) mg/dL Glucose 155 H (74-99) mg/dL POC Glucose (mg/dL) 238 H (75-99) mg/dL Calcium 8.2 L (8.4-10.2) mg/dL Phosphorus 5.6 H (2.5-4.5) mg/dL Iron 48 L (50-170) ug/dL Ferritin 883.7 H (10.0-291.0) ng/mL Total Bilirubin 3.1 H (0.2-1.3) mg/dL AST 96 H (14-36) U/L ALT 78 H (4-34) U/L Alkaline Phosphatase 1041 H (38-126) U/L Total Protein 6.2 L (6.3-8.2) g/dL Albumin 2.9 L (3.5-5.0) g/dL 08/03/20 08/04/20 Range/Units 20:30 06:54 Sodium (137-145) mmol/L BUN (7-17) mg/dL Creatinine (0.52-1.04) mg/dL Glucose (74-99) mg/dL POC Glucose (mg/dL) 173 H 102 H (75-99) mg/dL Calcium (8.4-10.2) mg/dL Phosphorus (2.5-4.5) mg/dL Iron (50-170) ug/dL Ferritin (10.0-291.0) ng/mL Total Bilirubin (0.2-1.3) mg/dL AST (14-36) U/L ALT (4-34) U/L Alkaline Phosphatase (38-126) U/L Total Protein (6.3-8.2) g/dL Albumin (3.5-5.0) g/dL Assessment and Plan Plan: Assessment: 1. End-stage renal disease maintained on hemodialysis on Thursday schedule. 2. Volume overload. improving with diuresis. 3. Insulin-dependent diabetes mellitus. 4. Hypertension with chronic kidney disease. stable. 5. Abdominal pain. Patient had recent cholecystectomy. Surgery following. 6. Chronic kidney disease mineral bone disease. Plan: currently seen while undergoing hemodialysis. Next treatment on Thursday. discontinued Motrin. add PhosLo with meals.
--- NOTE | 2020-08-04 11:13 | P.PN ---
Progress Note - Text Progress Note Date: 08/04/20 The patient's sleeping in bed. She's currently getting dialyzed. The patient was woken. She states she has some mild abdominal pain. There is no significant tenderness. On exam vital signs are stable. Abdomen soft. Exacerbation of congestive heart failure. Chronic liver disease. No surgical intervention is planned. Patient will be observed.
[2020-08-04 11:48] LABS: Glucose,Whole Blood 189 mg/dL (75-99)
[2020-08-04] MEDS: DICYCLOMINE 20 MG TAB PO SCH ×3 (12:35→21:07)
[2020-08-04] MEDS: CALCIUM ACETATE 667 MG TAB PO SCH ×2 (12:35→17:01)
[2020-08-04 16:43] LABS: Glucose,Whole Blood 119 mg/dL (75-99)
[2020-08-04 20:30] LABS: Glucose,Whole Blood 198 mg/dL (75-99)
--- NOTE | 2020-08-04 20:41 | P.PN ---
Subjective Progress Note Date: 08/04/20 Principal diagnosis: abdominal pain, nausea, elevated liver enzymes Objective - Vital Signs Vital signs: Vital Signs Temp 97.4 F L 08/04/20 07:00 Pulse 81 08/04/20 07:00 Resp 17 08/04/20 08:35 BP 162/69 08/04/20 07:00 Pulse Ox 97 08/04/20 07:00 Intake & Output 08/03/20 08/04/20 08/04/20 18:59 06:59 18:59 Output Total 4200 Balance -4200 Output: Hemodialysis 4200 Other: Voiding Method Toilet Toilet # Voids 2 2 # Bowel Movements 1 - Labs CBC & Chem 7: 08/03/20 09:15 08/03/20 09:15 Labs: Abnormal Lab Results - Last 24 Hours (Table) 08/02/20 08/03/20 08/03/20 Range/Units 10:37 09:15 11:21 Sodium 135 L (137-145) mmol/L BUN 34 H (7-17) mg/dL Creatinine 3.42 H (0.52-1.04) mg/dL Glucose 155 H (74-99) mg/dL POC Glucose (mg/dL) 238 H (75-99) mg/dL Calcium 8.2 L (8.4-10.2) mg/dL Phosphorus 5.6 H (2.5-4.5) mg/dL Iron 48 L (50-170) ug/dL Ferritin 883.7 H (10.0-291.0) ng/mL Total Bilirubin 3.1 H (0.2-1.3) mg/dL AST 96 H (14-36) U/L ALT 78 H (4-34) U/L Alkaline Phosphatase 1041 H (38-126) U/L Total Protein 6.2 L (6.3-8.2) g/dL Albumin 2.9 L (3.5-5.0) g/dL 08/03/20 08/04/20 Range/Units 20:30 06:54 Sodium (137-145) mmol/L BUN (7-17) mg/dL Creatinine (0.52-1.04) mg/dL Glucose (74-99) mg/dL POC Glucose (mg/dL) 173 H 102 H (75-99) mg/dL Calcium (8.4-10.2) mg/dL Phosphorus (2.5-4.5) mg/dL Iron (50-170) ug/dL Ferritin (10.0-291.0) ng/mL Total Bilirubin (0.2-1.3) mg/dL AST (14-36) U/L ALT (4-34) U/L Alkaline Phosphatase (38-126) U/L Total Protein (6.3-8.2) g/dL Albumin (3.5-5.0) g/dL Assessment and Plan (1) Elevated liver enzymes Narrative/Plan: 50-year-old female who presented to the hospital as a transfer where she presented for fluid overload secondary to missed dialysis. The patient reports she's been having some abdominal pain. Abdominal pain has been chronic in nature and the patient has been seen previously for complaints of vague periumbilical abdominal pain. EGD in April with the surgical service significant for esophagitis. The patient also underwent laparoscopic cholecystectomy on her last hospitalization. Patient was also noted to have elevated liver enzymes predominantly in a cholestatic pattern on her last hospitalization, currently improved on this admission with total bilirubin 3.1, alkaline phosphatase 1041, AST 96 and ALT 78. Liver biopsy performed on her last hospitalization was consistent with congestive hepatopathy, and patient does have a known history of severe pulmonary hypertension noted on echocardiogram in April 2020. Liver serology performed in evaluation of elevated liver enzymes essentially negative on last hospitalization. Current Visit: No Status: Acute Code(s): R74.8 - ABNORMAL LEVELS OF OTHER SERUM ENZYMES SNOMED Code(s): 040014415 (2) Ascites Current Visit: Yes Status: Acute Code(s): R18.8 - OTHER ASCITES SNOMED Code(s): 726480662 (3) Intractable abdominal pain Current Visit: Yes Status: Acute Code(s): R10.9 - UNSPECIFIED ABDOMINAL PAIN SNOMED Code(s): 17560587 Plan: Supportive care Okay for diet Continue to monitor CBC, BMP, LFTs Protonix therapy in the setting of esophagitis on EGD in April, increased to twice a day Diphenhydramine cream was added for pruritus Continue hemodialysis as per recommendations by nephrology service No plans for endoscopic evaluation at this time Can consider MRCP in the future for completeness of workup, however patient currently has a MediPort which makes this prohibitive and will hold off at this time Thank you for allowing us to participate in the care of the patient
[2020-08-04] MEDS: PANTOPRAZOLE 40 MG TABLET PO SCH (21:08)
[2020-08-04] MEDS: LORazepam 0.5 MG TAB PO SCH (21:08)
--- NOTE | 2020-08-04 22:38 | PN ---
PROGRESS NOTE 50-year-old -[place] female, abdominal pain, nausea, elevated liver enzymes, getting dialysis again for fluid overload today and tomorrow. Blood pressure 162/69, pulse 70s to 80s, respiratory rate 16 to 18, O2 97. Cardiovascular S1-S2. Lungs: Rales at the bases. Hematology: Negative Homans. Psych: Fair mood and affect. Neurologic: Alert orient x3. ASSESSMENT: 1. Elevated liver enzymes. 2. End-stage renal disease and fluid overload. 3. History of esophagitis. Cholestatic pattern on liver biopsy. 4. Pulmonary hypertension. 5. Ascites. 6. Intractable abdominal pain. Protonix for esophagitis twice a day. Benadryl cream for arthritis. Continue hemodialysis. MRCP if MediPort is removed. Please see further orders. Continue with dialysis. MMODL / IJN: [id number] /
[2020-08-05] MEDS: HYDROcodone/APAP 5-325MG 1 EACH TAB PO PRN (01:05)
[2020-08-05] MEDS: HYDROmorphone 0.5 MG/0.5 ML SYRINGE IVP PRN ×3 (05:02→15:12)
[2020-08-05 07:10] LABS: Glucose,Whole Blood 199 mg/dL (75-99)
[2020-08-05] MEDS: METOCLOPRAMIDE 5 MG TAB PO SCH ×3 (07:17→16:42)
[2020-08-05] MEDS: diphenhydrAMINE 25 MG CAP PO PRN (07:17)
[2020-08-05] MEDS: amLODIPine 5 MG TAB PO SCH ×2 (07:17→21:23)
[2020-08-05] MEDS: APIXABAN 2.5 MG TABLET PO SCH ×2 (07:17→21:24)
[2020-08-05] MEDS: INSULIN ASPART (NovoLOG) 100 UNIT/ML VIAL SQ SCH ×4 (07:17→21:24)
[2020-08-05] MEDS: CALCIUM ACETATE 667 MG TAB PO SCH ×2 (07:17→16:42)
[2020-08-05] MEDS: CLOPIDOGREL 75 MG TAB PO SCH (07:18)
[2020-08-05] MEDS: LORATADINE 10 MG TAB PO SCH (07:18)
[2020-08-05] MEDS: DICYCLOMINE 20 MG TAB PO SCH ×4 (07:18→21:25)
[2020-08-05] MEDS: hydrALAZINE HCL 50 MG TAB PO SCH ×3 (07:18→21:23)
[2020-08-05] MEDS: hydrOXYzine HCL 10 MG TAB PO SCH ×3 (07:18→21:25)
[2020-08-05] MEDS: METOPROLOL SUCCINATE (ER) 50 MG TAB.ER.24H PO SCH (07:18)
[2020-08-05] MEDS: REPAGLINIDE 1 MG TAB PO SCH ×2 (07:19→16:42)
[2020-08-05] MEDS: PANTOPRAZOLE 40 MG TABLET PO SCH ×2 (07:19→16:33)
[2020-08-05] MEDS: diphenhydrAMINE 2% CREAM 28.4 GM TUBE TOPICAL SCH ×2 (07:20→21:25)
--- NOTE | 2020-08-05 07:26 | PN ---
PROGRESS NOTE 50-year-old female. She is up ambulating to the bathroom today. She is complaining of severe neuropathy type pain in her legs. She has a history of severe neuropathy. Discussed with her GI recommendations for her liver. She states she continues to itch nonstop. She is refusing Atarax. She has just been put on Benadryl. Discussed with her starting back on her Lyrica. She usually takes at home 75 b.i.d. and will continue with her blood pressure control for dialysis for end-stage renal disease. She had dialysis yesterday. She is going to get dialysis scan tomorrow and possibly she can go home. GI recommendations were seen as well as surgical recommendations for her belly. We cannot do an MRCP for few weeks apparently. Sugars are in the 100s. Hemoglobin stable at 9.5. White count is normal at 10.3. Sugars as mentioned were 88-189. Psych: She is alert and orient x3. Cardiovascular S1, S2. Lungs are clear. Temperature 98. Blood pressures are a little high, 160s over 70s to 80s, O2 98 on room air. ASSESSMENT: 1. Hypertension acceleration. 2. End-stage renal disease. 3. Diabetic neuropathy. 4. Insulin-dependent diabetes mellitus. 5. Some mild depression. 6. Some mild gastroparesis. 7. Elevated bilirubin secondary to cholestatic changes versus some form of slow cirrhosis which biopsy did not show. 8. Continue to monitor liver and kidney enzymes. Possibly discharge home tomorrow. We will start Lyrica today for the neuropathy and possibly discharge home tomorrow. MMODL / IJN: [id number] /
[2020-08-05] MEDS: PREGABALIN 75 MG CAP PO SCH ×2 (07:33→21:24)
[2020-08-05 08:54] LABS: Anisocytosis Slight; Basophils % (A) 0 %; Eosinophils # (A) 0.2 k/uL (0-0.7); Eosinophils % (A) 1 %; HCT 29.4 % (34.0-46.0); HGB 9.4 gm/dL (11.4-16.0); Lymphocytes # (A) 0.8 k/uL (1.0-4.8); Lymphocytes % (A) 7 %; MCH 28.7 pg (25.0-35.0); MCHC 31.9 g/dL (31.0-37.0); MCV 89.9 fL (80.0-100.0); Mean Platelet Volume 9.2; Monocytes # (A) 0.6 k/uL (0-1.0); Monocytes % (A) 5 %; Neutrophils # (A) 10.4 k/uL (1.3-7.7); Neutrophils % (A) 86 %; Platelet Count 299 k/uL (150-450); RBC 3.27 m/uL (3.80-5.40); RDW 18.3 % (11.5-15.5); WBC 12.1 k/uL (3.8-10.6)
[2020-08-05 09:01] LABS: Albumin 2.9 g/dL (3.5-5.0); Bilirubin, Conjugated 0.6 mg/dL (0.0-0.3); Bilirubin, Delta 2.3 mg/dL (0.0-0.2); Bilirubin,Unconjugated 0.5 mg/dL (0.0-1.1); Calcium 8.3 mg/dL (8.4-10.2); Potassium 4.1 mmol/L (3.5-5.1); Total Bilirubin 3.4 mg/dL (0.2-1.3); Total Protein 6.5 g/dL (6.3-8.2)
--- NOTE | 2020-08-05 09:50 | P.PN ---
Progress Note - Text Progress Note Date: 08/05/20 The patient feels better. Shooting dialyzed again today. On exam vital signs are stable. Abdomen soft. Resolving congestive heart failure. Patient will be medically managed.
--- NOTE | 2020-08-05 10:05 | P.PN ---
Subjective patient is seen in follow-up for end-stage renal disease. She is maintained on hemodialysis on Thursday schedule. tolerated 4 L ultrafiltration yesterday. abdominal pain gradually improving. Oral intake is good. No vomiting or diarrhea. Vital signs are stable. General: The patient appeared well nourished and normally developed. HEENT: Head exam is unremarkable. Neck is without jugular venous distension. LUNGS: Lungs are clear to auscultation and percussion. Breath sounds decreased. HEART: Rate and Rhythm are regular. ABDOMEN: soft. Generalized tenderness. EXTREMITITES: 1+ edema. Objective - Vital Signs Vital signs: Vital Signs Temp 98.3 F 08/05/20 07:00 Pulse 92 08/05/20 07:00 Resp 17 08/05/20 07:00 BP 166/70 08/05/20 07:00 Pulse Ox 96 08/05/20 07:00 Intake & Output 08/04/20 08/05/20 08/05/20 18:59 06:59 18:59 Intake Total 800 Output Total 4000 Balance -3200 Intake: Oral 800 Output: Hemodialysis 4000 Other: Voiding Method Toilet # Voids 0 - Labs CBC & Chem 7: 08/05/20 08:15 08/05/20 08:15 Labs: Abnormal Lab Results - Last 24 Hours (Table) 08/04/20 08/04/20 08/04/20 Range/Units 11:46 16:41 20:29 WBC (3.8-10.6) k/uL RBC (3.80-5.40) m/uL Hgb (11.4-16.0) gm/dL Hct (34.0-46.0) % RDW (11.5-15.5) % Neutrophils # (1.3-7.7) k/uL Lymphocytes # (1.0-4.8) k/uL Sodium (137-145) mmol/L BUN (7-17) mg/dL Creatinine (0.52-1.04) mg/dL Glucose (74-99) mg/dL POC Glucose (mg/dL) 189 H 119 H 198 H (75-99) mg/dL Calcium (8.4-10.2) mg/dL Total Bilirubin (0.2-1.3) mg/dL Conjugated Bilirubin (0.0-0.3) mg/dL Delta Bilirubin (0.0-0.2) mg/dL AST (14-36) U/L ALT (4-34) U/L Alkaline Phosphatase (38-126) U/L Albumin (3.5-5.0) g/dL 08/05/20 08/05/20 08/05/20 Range/Units 07:02 08:15 08:15 WBC 12.1 H (3.8-10.6) k/uL RBC 3.27 L (3.80-5.40) m/uL Hgb 9.4 L (11.4-16.0) gm/dL Hct 29.4 L (34.0-46.0) % RDW 18.3 H (11.5-15.5) % Neutrophils # 10.4 H (1.3-7.7) k/uL Lymphocytes # 0.8 L (1.0-4.8) k/uL Sodium 133 L (137-145) mmol/L BUN 24 H (7-17) mg/dL Creatinine 3.17 H (0.52-1.04) mg/dL Glucose 204 H (74-99) mg/dL POC Glucose (mg/dL) 199 H (75-99) mg/dL Calcium 8.3 L (8.4-10.2) mg/dL Total Bilirubin 3.4 H (0.2-1.3) mg/dL Conjugated Bilirubin 0.6 H (0.0-0.3) mg/dL Delta Bilirubin 2.3 H (0.0-0.2) mg/dL AST 79 H (14-36) U/L ALT 72 H (4-34) U/L Alkaline Phosphatase 1073 H (38-126) U/L Albumin 2.9 L (3.5-5.0) g/dL Assessment and Plan Plan: Assessment: 1. End-stage renal disease maintained on hemodialysis on Thursday schedule. 2. Volume overload. improving with diuresis. patient has been noncompliant with her diet. Drinking excessive amounts of fluid and eating salty foods. 3. Insulin-dependent diabetes mellitus. 4. Hypertension with chronic kidney disease. stable. 5. Abdominal pain. Patient had recent cholecystectomy. Surgery following. 6. Chronic kidney disease mineral bone disease maintained on PhosLo. Plan: hemodialysis tomorrow. Strongly advised patient to be due be compliant with her diet.
[2020-08-05 11:37] LABS: Glucose,Whole Blood 259 mg/dL (75-99)
[2020-08-05 16:54] LABS: Glucose,Whole Blood 166 mg/dL (75-99)
--- NOTE | 2020-08-05 19:49 | P.PN ---
Subjective Progress Note Date: 08/05/20 Principal diagnosis: abdominal pain, nausea, elevated liver enzymes the patient seen lying in bed tolerating her diet. No nausea or vomiting. Still reporting some vague abdominal discomfort. Objective - Vital Signs Vital signs: Vital Signs Temp 98.3 F 08/05/20 07:00 Pulse 92 08/05/20 07:00 Resp 17 08/05/20 07:00 BP 166/70 08/05/20 07:00 Pulse Ox 96 08/05/20 07:00 Intake & Output 08/04/20 08/05/20 08/05/20 18:59 06:59 18:59 Intake Total 800 Output Total 4000 Balance -3200 Intake: Oral 800 Output: Hemodialysis 4000 Other: Voiding Method Toilet # Voids 0 - Exam On physical examination, patient appears comfortable in no apparent distress. HEAD: Normocephalic, atraumatic. EYES: No scleral icterus. No conjunctival injection. MOUTH: No lesions, tongue midline. NECK: Trachea midline, no gross abnormalities. ABDOMEN: Soft, obese. Bowel sounds are positive. No organomegaly. No guarding or rigidity. EXTREMITIES: No pedal edema. SKIN: No rashes, no jaundice. NEUROLOGIC: Alert and oriented x3. No focal deficits. - Labs CBC & Chem 7: 08/05/20 08:15 08/05/20 08:15 Labs: Abnormal Lab Results - Last 24 Hours (Table) 08/04/20 08/04/20 08/04/20 Range/Units 11:46 16:41 20:29 WBC (3.8-10.6) k/uL RBC (3.80-5.40) m/uL Hgb (11.4-16.0) gm/dL Hct (34.0-46.0) % RDW (11.5-15.5) % Neutrophils # (1.3-7.7) k/uL Lymphocytes # (1.0-4.8) k/uL Sodium (137-145) mmol/L BUN (7-17) mg/dL Creatinine (0.52-1.04) mg/dL Glucose (74-99) mg/dL POC Glucose (mg/dL) 189 H 119 H 198 H (75-99) mg/dL Calcium (8.4-10.2) mg/dL Total Bilirubin (0.2-1.3) mg/dL Conjugated Bilirubin (0.0-0.3) mg/dL Delta Bilirubin (0.0-0.2) mg/dL AST (14-36) U/L ALT (4-34) U/L Alkaline Phosphatase (38-126) U/L Albumin (3.5-5.0) g/dL 08/05/20 08/05/20 08/05/20 Range/Units 07:02 08:15 08:15 WBC 12.1 H (3.8-10.6) k/uL RBC 3.27 L (3.80-5.40) m/uL Hgb 9.4 L (11.4-16.0) gm/dL Hct 29.4 L (34.0-46.0) % RDW 18.3 H (11.5-15.5) % Neutrophils # 10.4 H (1.3-7.7) k/uL Lymphocytes # 0.8 L (1.0-4.8) k/uL Sodium 133 L (137-145) mmol/L BUN 24 H (7-17) mg/dL Creatinine 3.17 H (0.52-1.04) mg/dL Glucose 204 H (74-99) mg/dL POC Glucose (mg/dL) 199 H (75-99) mg/dL Calcium 8.3 L (8.4-10.2) mg/dL Total Bilirubin 3.4 H (0.2-1.3) mg/dL Conjugated Bilirubin 0.6 H (0.0-0.3) mg/dL Delta Bilirubin 2.3 H (0.0-0.2) mg/dL AST 79 H (14-36) U/L ALT 72 H (4-34) U/L Alkaline Phosphatase 1073 H (38-126) U/L Albumin 2.9 L (3.5-5.0) g/dL Assessment and Plan (1) Elevated liver enzymes Narrative/Plan: 50-year-old female who presented to the hospital as a transfer where she presented for fluid overload secondary to missed dialysis. The patient reports she's been having some abdominal pain. Abdominal pain has been chronic in nature and the patient has been seen previously for complaints of vague periumbilical abdominal pain. EGD in April with the surgical service significant for esophagitis. The patient also underwent laparoscopic cholecystectomy on her last hospitalization. Patient was also noted to have elevated liver enzymes predominantly in a cholestatic pattern on her last hospitalization, currently improved on this admission with total bilirubin 3.1, alkaline phosphatase 1041, AST 96 and ALT 78. Liver biopsy performed on her last hospitalization was consistent with congestive hepatopathy, and patient does have a known history of severe pulmonary hypertension noted on echocardiogram in April 2020. Liver serology performed in evaluation of elevated liver enzymes essentially negative on last hospitalization. Current Visit: No Status: Acute Code(s): R74.8 - ABNORMAL LEVELS OF OTHER SERUM ENZYMES SNOMED Code(s): 229885845 (2) Ascites Current Visit: Yes Status: Acute Code(s): R18.8 - OTHER ASCITES SNOMED Code(s): 717932818 (3) Intractable abdominal pain Current Visit: Yes Status: Acute Code(s): R10.9 - UNSPECIFIED ABDOMINAL PAIN SNOMED Code(s): 72915761 Plan: Supportive care Okay for diet Continue to monitor CBC, BMP, LFTs Protonix therapy in the setting of esophagitis on EGD in April, increased to twice a day Diphenhydramine cream was added for pruritus Continue hemodialysis as per recommendations by nephrology service No plans for endoscopic evaluation at this time dicyclomine [id number] added Can consider MRCP in the future for completeness of workup, however patient currently has a MediPort which makes this prohibitive and will hold off at this time Thank you for allowing us to participate in the care of the patient
[2020-08-05 20:33] LABS: Glucose,Whole Blood 233 mg/dL (75-99)
[2020-08-05] MEDS: LORazepam 0.5 MG TAB PO SCH (21:25)
[2020-08-06] MEDS: SODIUM CHLORIDE 0.9% 1,000 ML IV SCH (00:37)
[2020-08-06 06:56] LABS: Glucose,Whole Blood 117 mg/dL (75-99)
[2020-08-06] MEDS: INSULIN ASPART (NovoLOG) 100 UNIT/ML VIAL SQ SCH ×3 (07:22→17:03)
[2020-08-06] MEDS: DICYCLOMINE 20 MG TAB PO SCH ×3 (07:49→17:04)
[2020-08-06] MEDS: METOPROLOL SUCCINATE (ER) 50 MG TAB.ER.24H PO SCH (07:50)
[2020-08-06] MEDS: CALCIUM ACETATE 667 MG TAB PO SCH ×2 (07:50→17:03)
[2020-08-06] MEDS: APIXABAN 2.5 MG TABLET PO SCH (07:50)
[2020-08-06] MEDS: METOCLOPRAMIDE 5 MG TAB PO SCH ×3 (07:50→17:03)
[2020-08-06] MEDS: HYDROcodone/APAP 5-325MG 1 EACH TAB PO PRN ×2 (07:50→18:12)
[2020-08-06] MEDS: CLOPIDOGREL 75 MG TAB PO SCH (07:50)
[2020-08-06] MEDS: LORATADINE 10 MG TAB PO SCH (07:50)
[2020-08-06] MEDS: hydrOXYzine HCL 10 MG TAB PO SCH ×2 (07:50→16:59)
[2020-08-06] MEDS: hydrALAZINE HCL 50 MG TAB PO SCH ×2 (07:51→17:03)
[2020-08-06] MEDS: PREGABALIN 75 MG CAP PO SCH (07:51)
[2020-08-06] MEDS: amLODIPine 5 MG TAB PO SCH (07:51)
[2020-08-06] MEDS: PANTOPRAZOLE 40 MG TABLET PO SCH ×2 (07:53→17:00)
[2020-08-06] MEDS: diphenhydrAMINE 2% CREAM 28.4 GM TUBE TOPICAL SCH (07:54)
[2020-08-06] MEDS: REPAGLINIDE 1 MG TAB PO SCH ×2 (08:03→17:07)
[2020-08-06 10:03] LABS: Anisocytosis Slight; Basophils % (A) 0 %; Eosinophils # (A) 0.2 k/uL (0-0.7); Eosinophils % (A) 2 %; HCT 27.3 % (34.0-46.0); HGB 8.9 gm/dL (11.4-16.0); Lymphocytes # (A) 0.6 k/uL (1.0-4.8); Lymphocytes % (A) 6 %; MCHC 32.5 g/dL (31.0-37.0); MCV 89.4 fL (80.0-100.0); Mean Platelet Volume 8.5; Monocytes # (A) 0.5 k/uL (0-1.0); Monocytes % (A) 5 %; Neutrophils # (A) 9.1 k/uL (1.3-7.7); Neutrophils % (A) 86 %; Platelet Count 281 k/uL (150-450); RBC 3.05 m/uL (3.80-5.40); WBC 10.7 k/uL (3.8-10.6)
[2020-08-06 10:11] LABS: Calcium 8.5 mg/dL (8.4-10.2); Potassium 4.4 mmol/L (3.5-5.1); Total Bilirubin 3.1 mg/dL (0.2-1.3); Total Protein 6.6 g/dL (6.3-8.2)
[2020-08-06 11:38] LABS: Glucose,Whole Blood 145 mg/dL (75-99)
--- NOTE | 2020-08-06 12:19 | CDI ---
Documentation Clarification Form Date: 08/06/2020 CDS: Penelope Burr RN, CCDS Admit Date: 08/01/2020 Patient Name: Sharon Singh ATTENTION: The Clinical Documentation Specialists (CDI) and [employer] Coding Staff appreciate your assistance in clarifying documentation. Please respond to the clarification below the line at the bottom and electronically sign. The CDI & [employer] Coding staff will review the response and follow-up if needed. Please note: Queries are made part of the Legal Health Record. If you have any questions, please contact the author of this message via ITS. Dr. Velasquez, Conflicting documentation has been found in the medical record: 08/04 Surgical Progress note Exacerbation of congestive heart failure. 08/05 Nephrology Progress note Volume overload, improving with diuresis. patient has been noncompliant with her diet. Drinking excessive amounts of fluid and eating salty foods. History/Risk Factors: 50-year-old female presents to the ED as a transfer from [facility] for abdominal pain did not complete dialysis had recent cholecystectomy one week ago. Medical History: Asthma, Diastolic CHF, ESRD and OR. Home medications Metoprolol, Norvasc, Hydralazine Clinical Indicators: CT from outside facility significant for fluid overload. 08/02 H&P Extremities two plus pedal edema. Generalized anasarca changes. Abdomen is distended due to obesity. Treatment: 08/02 Norvasc 5mg po Bid; Apresoline 100mg po TID, Toprol XL 50mg daily 08/03 Apresoline 10mg IV PRN. In your opinion, what is the most clinically appropriate diagnosis for this patient? Fluid overload due to missed dialysis and noncompliant with diet Acute on Chronic Diastolic Heart failure. Other explanation of clinical findings Unable to determine (no explanation for clinical findings) (Last Revision: February 2018) MTDD
[2020-08-06] MEDS: HYDROmorphone 0.5 MG/0.5 ML SYRINGE IVP PRN (12:32)
--- NOTE | 2020-08-06 13:49 | P.PN ---
Subjective Progress Note Date: 08/06/20 CHIEF COMPLAINT: Abdominal pain HISTORY OF PRESENT ILLNESS: Patient is seen and examined with Dr. Winston. Patient admitted to the hospital for fluid overload. Patient receiving hemodialysis today. Still reporting abdominal pain. Tolerating diet. No nausea or vomiting. Afebrile. WBC 10.7 hemoglobin 8.9 AST 74 ALT 59 alk phos 933 PHYSICAL EXAM: VITAL SIGNS: Reviewed. GENERAL: Well-developed in no acute distress. HEENT: No sclera icterus. Extraocular movements grossly intact. Moist buccal mucosa. Head is atraumatic, normocephalic. ABDOMEN: Soft. Obese nondistended. diffuse tenderness. NEUROLOGIC: Alert and oriented. Cranial nerves II through XII grossly intact. ASSESSMENT: 1. Fluid overload after missing dialysis 2. Abdominal pain. Computed tomography scan results reviewed by Dr. Winston no evidence of bile leak 3. End-stage renal disease. Nephrology has hemodialysis scheduled today and tomorrow 4. Recent laparoscopic cholecystectomy completed on 07/23/2020 5. Insulin-dependent diabetes mellitus PLAN: -Conservative management -No surgical intervention required -Continue low-fat diet Physician [employer] Professional note has been reviewed by physician. Signing provider agrees with the documented findings, assessment, and plan of care. Objective - Vital Signs Vital signs: Vital Signs Temp 98.7 F 08/06/20 07:00 Pulse 88 08/06/20 07:00 Resp 20 08/06/20 07:00 BP 161/65 08/06/20 07:00 Pulse Ox 98 08/06/20 07:00 Intake & Output 08/05/20 08/06/20 08/06/20 18:59 06:59 18:59 Intake Total 400 Balance 400 Intake: Oral 400 Other: Voiding Method Toilet Toilet # Voids 1 - Labs CBC & Chem 7: 08/06/20 09:30 08/06/20 09:30 Labs: Abnormal Lab Results - Last 24 Hours (Table) 08/05/20 08/05/20 08/06/20 Range/Units 16:52 20:31 06:54 WBC (3.8-10.6) k/uL RBC (3.80-5.40) m/uL Hgb (11.4-16.0) gm/dL Hct (34.0-46.0) % RDW (11.5-15.5) % Neutrophils # (1.3-7.7) k/uL Lymphocytes # (1.0-4.8) k/uL Sodium (137-145) mmol/L BUN (7-17) mg/dL Creatinine (0.52-1.04) mg/dL Glucose (74-99) mg/dL POC Glucose (mg/dL) 166 H 233 H 117 H (75-99) mg/dL Total Bilirubin (0.2-1.3) mg/dL AST (14-36) U/L ALT (4-34) U/L Alkaline Phosphatase (38-126) U/L Albumin (3.5-5.0) g/dL 08/06/20 08/06/20 08/06/20 Range/Units 09:30 09:30 11:37 WBC 10.7 H (3.8-10.6) k/uL RBC 3.05 L (3.80-5.40) m/uL Hgb 8.9 L (11.4-16.0) gm/dL Hct 27.3 L (34.0-46.0) % RDW 18.0 H (11.5-15.5) % Neutrophils # 9.1 H (1.3-7.7) k/uL Lymphocytes # 0.6 L (1.0-4.8) k/uL Sodium 133 L (137-145) mmol/L BUN 36 H (7-17) mg/dL Creatinine 4.12 H (0.52-1.04) mg/dL Glucose 180 H (74-99) mg/dL POC Glucose (mg/dL) 145 H (75-99) mg/dL Total Bilirubin 3.1 H (0.2-1.3) mg/dL AST 74 H (14-36) U/L ALT 59 H (4-34) U/L Alkaline Phosphatase 933 H (38-126) U/L Albumin 3.0 L (3.5-5.0) g/dL
[2020-08-06] MEDS ORDERED: DARBEPOETIN ALFA 60 MCG/0.3 ML SYRINGE SQ SCH (14:15)
[2020-08-06 15:15] VITALS: BP 158/68; PULSE 76; RESP 18; TEMP 98.6
--- NOTE | 2020-08-06 16:08 | PN ---
PROGRESS NOTE Patient is seen for followup for end-stage renal disease. She is currently seen on hemodialysis, tolerating her treatment well. She denies any significant complaints. Patient states her stomach is feeling better. PHYSICAL EXAMINATION: On examination today, blood pressure is 161/65, heart rate 88 per minute, she is afebrile. Examination of the heart S1, S2. Examination of the lungs, bilateral breath sounds are heard. Abdomen is soft, nontender. Examination of the lower extremities shows edema 1+ bilaterally. SWATCHER exam grossly intact. LAB: 1. Show sodium of 133, potassium 4.4, hemoglobin 8.9 g/dL. ASSESSMENT: 1. End-stage renal disease, on hemodialysis on a Thursday, Thursday, Thursday schedule as outpatient. 2. Volume overload, currently improving. 3. Anemia with no active bleeding noted, mostly anemia of chronic disease. Will maintain patient on Aranesp. 4. Hypertension with chronic kidney disease. 5. CKD mineral bone disorder. PLAN: Add Aranesp. Encourage increased oral intake. The patient is advised regarding salt and fluid restriction. MMODL / IJN: [id number] /
[2020-08-06 16:56] LABS: Glucose,Whole Blood 168 mg/dL (75-99)
--- NOTE | 2020-08-06 18:59 | DS ---
DISCHARGE SUMMARY DISCHARGE DIAGNOSES: 1. Ascites. 2. End-stage renal disease. 3. Cirrhosis. 4. Elevated liver enzymes. 5. Cholestatic liver disease. 6. Status post cholecystectomy. 7. End-stage renal disease with fluid overload. 8. Chronic pruritus. 9. Neuropathy. 10.Acute on chronic anemia. 11.Hypertension acceleration. 12.Irritable bowel syndrome. 13.Gastroparesis. 14.Diabetes mellitus. HOME MEDICINES: 1. Aranesp 60 mcg subcu Q 7 days. 2. Benadryl 25 mg b.i.d. 3. Benadryl cream apply topically b.i.d. 4. Bentyl 20 mg q.i.d. 5. Lyrica 75 b.i.d. 6. PhosLo 667 b.i.d. 7. Toprol-XL 50 mg daily. 8. Paglinide 0.5 mg p.o. a.c. b.i.d. 9. RenaVite 1 daily. 10.Reglan 5 mg a.c. t.i.d. 11.[place] 05/325 b.i.d. 12.Norvasc 5 mg b.i.d. 13.Protonix 40 mg b.i.d. 14.Nitrostat sublingual 0.4 mg p.r.n. 15.Zofran 4 mg p.o. daily. 16.Ativan 0.5 mg q.h.s. 17.Xanax 0.25-0.5 mg Thursday, Thursday, Thursday. 18.Eliquis 2.5 mg b.i.d. 19. 10 mg daily. 20.Plavix 75 mg daily. 21.Apresoline 100 mg t.i.d. 22.Hydroxyzine 10 mg t.i.d. CONDITION: Stable. PROGNOSIS: Guarded. Ambulate as tolerated. HISTORY: White female came with fluid overload, end-stage renal disease, severe abdominal pain, was seen by GI and Surgery for abdominal pain and cirrhosis of the liver. Got extra dialysis for multiple days for abdominal pain and end-stage renal disease with fluid overload, neuropathy was treated with Lyrica, Bentyl for irritable bowel syndrome as well as Benadryl cream and pills. The patient will follow up as an outpatient. Prognosis extremely guarded due to cholestatic liver disease and elevated bilirubin for unclear etiology, possibly MRCP as an outpatient. MMODL / IJN: [id number] /
--- NOTE | 2020-08-10 11:15 | PN ---
PROGRESS NOTE ADDENDUM: Please add: Acute on chronic diastolic heart failure. MMODL / IJN: [id number] /
== END 2020-08-06 19:16 | disposition home or self-care (01) | DRG 291 ==
LOC: EC 21:10 → 4SSUR 22:46
PROVIDERS: ADMIT Family Medicine; ATTEND Family Medicine
PROC: 5A1D70Z Performance of Urinary Filtration, Intermittent, Less than 6 Hours Per Day (ICD-10-PCS; principal; 2020-08-02)
DX: I13.2 Hypertensive heart and chronic kidney disease with heart failure and with stage 5 chronic kidney disease, or end stage renal disease (principal); N18.6 End stage renal disease; K83.1 Obstruction of bile duct; I50.33 Acute on chronic diastolic (congestive) heart failure; R18.8 Other ascites; D68.2 Hereditary deficiency of other clotting factors; E87.70 Fluid overload, unspecified; K21.9 Gastro-esophageal reflux disease without esophagitis; I25.10 Atherosclerotic heart disease of native coronary artery without angina pectoris; E78.5 Hyperlipidemia, unspecified; I27.20 Pulmonary hypertension, unspecified; J44.9 Chronic obstructive pulmonary disease, unspecified; K21.0 Gastro-esophageal reflux disease with esophagitis; Z60.2 Problems related to living alone; E11.22 Type 2 diabetes mellitus with diabetic chronic kidney disease; E11.43 Type 2 diabetes mellitus with diabetic autonomic (poly)neuropathy; E11.51 Type 2 diabetes mellitus with diabetic peripheral angiopathy without gangrene; E66.9 Obesity, unspecified; I71.4 Abdominal aortic aneurysm, without rupture; D63.1 Anemia in chronic kidney disease; E88.09 Other disorders of plasma-protein metabolism, not elsewhere classified; E83.89 Other disorders of mineral metabolism; M19.90 Unspecified osteoarthritis, unspecified site; Z79.4 Long term (current) use of insulin; I48.91 Unspecified atrial fibrillation; K58.9 Irritable bowel syndrome, unspecified; K31.84 Gastroparesis; K74.60 Unspecified cirrhosis of liver; L29.9 Pruritus, unspecified; K72.90 Hepatic failure, unspecified without coma; F31.9 Bipolar disorder, unspecified; F17.200 Nicotine dependence, unspecified, uncomplicated; F41.9 Anxiety disorder, unspecified; Z79.02 Long term (current) use of antithrombotics/antiplatelets; Z79.01 Long term (current) use of anticoagulants; Z87.01 Personal history of pneumonia (recurrent); Z79.899 Other long term (current) drug therapy; Z88.2 Allergy status to sulfonamides; Z88.8 Allergy status to other drugs, medicaments and biological substances; Z88.1 Allergy status to other antibiotic agents; Z91.040 Latex allergy status; Z86.718 Personal history of other venous thrombosis and embolism; Z86.73 Personal history of transient ischemic attack (TIA), and cerebral infarction without residual deficits; I25.2 Old myocardial infarction; Z95.1 Presence of aortocoronary bypass graft; Z95.5 Presence of coronary angioplasty implant and graft; Z90.49 Acquired absence of other specified parts of digestive tract; Z98.51 Tubal ligation status; Z98.890 Other specified postprocedural states; Z82.5 Family history of asthma and other chronic lower respiratory diseases; Z82.49 Family history of ischemic heart disease and other diseases of the circulatory system; Z80.9 Family history of malignant neoplasm, unspecified; Z68.32 Body mass index [BMI] 32.0-32.9, adult; Z87.19 Personal history of other diseases of the digestive system; Z91.11 Patient's noncompliance with dietary regimen; Z99.2 Dependence on renal dialysis
CPT/HCPCS: 80053; 80076; 82728; 83540; 83550; 84100; 85025; 90935; 96374; 99285

== ENCOUNTER 2020-08-06 19:32 | Emergency (ER) | payer MEDICARE, OTHER ==
[2020-08-06 19:40] VITALS: BP 184/85; PULSE 58; RESP 16; TEMP 98
[2020-08-06] MEDS ORDERED: BACITRACIN OINT 1 EACH PACKET TOPICAL ONE (19:54)
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
== END 2020-08-06 20:20 | disposition home or self-care (01) ==
LOC: EC 19:32
DX: S00.511A Abrasion of lip, initial encounter (principal); S60.512A Abrasion of left hand, initial encounter; S60.511A Abrasion of right hand, initial encounter; K21.9 Gastro-esophageal reflux disease without esophagitis; I13.2 Hypertensive heart and chronic kidney disease with heart failure and with stage 5 chronic kidney disease, or end stage renal disease; N18.6 End stage renal disease; I50.9 Heart failure, unspecified; E11.22 Type 2 diabetes mellitus with diabetic chronic kidney disease; F41.9 Anxiety disorder, unspecified; F32.9 Major depressive disorder, single episode, unspecified; I25.2 Old myocardial infarction; F17.200 Nicotine dependence, unspecified, uncomplicated; Z79.01 Long term (current) use of anticoagulants; Z79.899 Other long term (current) drug therapy; Z79.84 Long term (current) use of oral hypoglycemic drugs; Z79.02 Long term (current) use of antithrombotics/antiplatelets; Z88.1 Allergy status to other antibiotic agents; Z88.8 Allergy status to other drugs, medicaments and biological substances; Z91.040 Latex allergy status; Z88.2 Allergy status to sulfonamides; Z86.718 Personal history of other venous thrombosis and embolism; Z86.73 Personal history of transient ischemic attack (TIA), and cerebral infarction without residual deficits; Z99.2 Dependence on renal dialysis; W18.09XA Striking against other object with subsequent fall, initial encounter; Y92.89 Other specified places as the place of occurrence of the external cause; Y93.01 Activity, walking, marching and hiking
CPT/HCPCS: 99283

== ENCOUNTER 2020-08-27 13:34 | Emergency (ER) | payer MEDICARE, OTHER ==
[2020-08-27 13:41] VITALS: PULSE 95; RESP 18; TEMP 97.2
[2020-08-27] MEDS ORDERED: HYDROcodone/APAP 5-325MG 1 EACH TAB PO STA (14:05)
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
--- NOTE | 2020-08-27 14:48 | US ---
EXAMINATION TYPE: US venous doppler duplex UE RT DATE OF EXAM: 08/27/2020 COMPARISON: NONE CLINICAL HISTORY: concerm dvt . Right arm pain at IV site right forearm SIDE PERFORMED: Right Right Arm: Negative for DVT, positive for SVT within right basilic vein at forearm at old IV site and pain IMPRESSION: No evidence for DVT at this time. SVT right basilic vein.
[2020-08-27 15:18] VITALS: BP 136/94
== END 2020-08-27 15:27 | disposition home or self-care (01) ==
LOC: EC 13:34
DX: I82.611 Acute embolism and thrombosis of superficial veins of right upper extremity (principal); F41.9 Anxiety disorder, unspecified; F31.9 Bipolar disorder, unspecified; F17.200 Nicotine dependence, unspecified, uncomplicated; I25.2 Old myocardial infarction; I50.9 Heart failure, unspecified; I13.2 Hypertensive heart and chronic kidney disease with heart failure and with stage 5 chronic kidney disease, or end stage renal disease; N18.6 End stage renal disease; K21.9 Gastro-esophageal reflux disease without esophagitis; Z79.01 Long term (current) use of anticoagulants; Z79.899 Other long term (current) drug therapy; Z88.1 Allergy status to other antibiotic agents; Z88.2 Allergy status to sulfonamides; Z88.8 Allergy status to other drugs, medicaments and biological substances; Z91.040 Latex allergy status; Z86.718 Personal history of other venous thrombosis and embolism; Z86.73 Personal history of transient ischemic attack (TIA), and cerebral infarction without residual deficits; Z95.5 Presence of coronary angioplasty implant and graft; Z95.1 Presence of aortocoronary bypass graft; Z90.49 Acquired absence of other specified parts of digestive tract
CPT/HCPCS: 99283

== ENCOUNTER 2020-08-29 23:28 | Observation (INO) | payer MEDICARE, OTHER ==
[2020-08-30] MEDS ORDERED: MORPHINE SULFATE 4 MG/ML SYRINGE IV STA ×2 (00:17→02:31)
[2020-08-30] MEDS ORDERED: ONDANSETRON 4 MG/2 ML VIAL IVP STA (00:17)
[2020-08-30 00:46] LABS: Anisocytosis Slight; Basophils % (A) 1 %; Eosinophils # (A) 0.2 k/uL (0-0.7); Eosinophils % (A) 2 %; HGB 10.4 gm/dL (11.4-16.0); Lymphocytes # (A) 0.9 k/uL (1.0-4.8); Lymphocytes % (A) 10 %; MCH 29.5 pg (25.0-35.0); MCHC 32.4 g/dL (31.0-37.0); Monocytes # (A) 0.3 k/uL (0-1.0); Monocytes % (A) 4 %; Neutrophils # (A) 7.2 k/uL (1.3-7.7); Neutrophils % (A) 82 %; Platelet Count 264 k/uL (150-450); RBC 3.52 m/uL (3.80-5.40); RDW 18.1 % (11.5-15.5); WBC 8.8 k/uL (3.8-10.6)
[2020-08-30 00:50] LABS: Albumin 3.2 g/dL (3.5-5.0); Calcium 8.2 mg/dL (8.4-10.2); Total Bilirubin 4.6 mg/dL (0.2-1.3)
--- NOTE | 2020-08-30 03:31 | XR ---
EXAMINATION TYPE: XR chest 1V portable DATE OF EXAM: 08/30/2020 COMPARISON: 08/01/2020 HISTORY: Short of breath TECHNIQUE: Single view FINDINGS: Heart is enlarged. There is pulmonary interstitial edema. There is left-sided central venou s catheter with tip in the superior vena cava. There is right-sided central venous catheter with tip in the superior vena cava. There is no definite pleural effusion. Bony thorax appears intact. There a re sternal wires. IMPRESSION: Cardiomegaly. Mild pulmonary interstitial edema is new compared to recent exam. Mild hear t failure is possible.
[2020-08-30] MEDS ORDERED: ACETAMINOPHEN TAB 325 MG TAB PO PRN (04:24)
[2020-08-30] MEDS ORDERED: ONDANSETRON 4 MG/2 ML VIAL IVP PRN (04:24)
[2020-08-30] MEDS ORDERED: MORPHINE SULFATE 4 MG/ML SYRINGE IV PRN (04:24)
[2020-08-30] MEDS ORDERED: NALOXONE 0.4 MG/ML 1 ML VIAL IV PRN (04:24)
[2020-08-30 07:15] LABS: Glucose,Whole Blood 241 mg/dL (75-99)
[2020-08-30] MEDS ORDERED: diphenhydrAMINE 25 MG CAP PO PRN (08:33)
[2020-08-30] MEDS ORDERED: NITROGLYCERIN SL TABS 0.4 MG TAB SUBLINGUAL PRN (08:33)
[2020-08-30] MEDS ORDERED: ONDANSETRON 4 MG TAB PO PRN (08:33)
[2020-08-30] MEDS ORDERED: HYDROcodone/APAP 5-325MG 1 EACH TAB PO PRN (08:33)
[2020-08-30] MEDS ORDERED: DARBEPOETIN ALFA 60 MCG/0.3 ML SYRINGE SQ SCH (09:00)
[2020-08-30] MEDS: CLOPIDOGREL 75 MG TAB PO SCH (09:46)
[2020-08-30] MEDS: amLODIPine 5 MG TAB PO SCH ×2 (09:46→20:47)
[2020-08-30] MEDS: METOPROLOL SUCCINATE (ER) 50 MG TAB.ER.24H PO SCH (09:46)
[2020-08-30] MEDS: DICYCLOMINE 20 MG TAB PO SCH ×4 (09:46→22:00)
[2020-08-30] MEDS: LORATADINE 10 MG TAB PO SCH (09:46)
[2020-08-30] MEDS: hydrALAZINE HCL 50 MG TAB PO SCH ×3 (09:46→22:00)
[2020-08-30] MEDS: APIXABAN 2.5 MG TABLET PO SCH ×2 (09:46→20:47)
[2020-08-30] MEDS: PREGABALIN 75 MG CAP PO SCH ×2 (09:47→20:47)
[2020-08-30 10:05] LABS: Glucose,Whole Blood 322 mg/dL (75-99)
[2020-08-30] MEDS: INSULIN ASPART (NovoLOG) 100 UNIT/ML VIAL SQ SCH ×4 (10:07→22:00)
[2020-08-30] MEDS: HYDROmorphone 1 MG/ML 1 ML SYRINGE IVP PRN ×3 (10:51→20:46)
[2020-08-30] MEDS: diphenhydrAMINE 2% CREAM 28.4 GM TUBE TOPICAL SCH ×2 (10:53→21:59)
[2020-08-30] MEDS: hydrOXYzine HCL 10 MG TAB PO SCH ×3 (10:54→22:00)
[2020-08-30] MEDS: FOLIC ACID-VIT B COMPLEX-VIT C 1 CAP PO SCH (10:54)
[2020-08-30 11:08] LABS: Glucose,Whole Blood 304 mg/dL (75-99)
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
[2020-08-30] MEDS: METOCLOPRAMIDE 5 MG TAB PO SCH ×2 (12:22→18:03)
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
[2020-08-30 17:18] LABS: Glucose,Whole Blood 75 mg/dL (75-99)
[2020-08-30] MEDS: CALCIUM ACETATE 667 MG TAB PO SCH (18:03)
[2020-08-30] MEDS: PANTOPRAZOLE 40 MG TABLET PO SCH (18:04)
[2020-08-30] MEDS: REPAGLINIDE 1 MG TAB PO SCH (18:05)
--- NOTE | 2020-08-30 18:12 | US ---
EXAMINATION TYPE: US venous doppler duplex UE RT DATE OF EXAM: 08/30/2020 COMPARISON: NONE CLINICAL HISTORY: rule out DVT. no h/o DVT, SVT seen 3 days prior in right basilic SIDE PERFORMED: Right FINDINGS: Grayscale, color doppler, spectral doppler imaging performed of the deep veins of the upper extremiti es. There is normal flow, compressibility and vascular waveforms. IMPRESSION: NEGATIVE FOR DVT, RIGHT UPPER EXTREMITY; NO SIGNS OF BASILIC SVT SEEN TODAY.
[2020-08-30 20:32] LABS: Hemoglobin A1C 6.3 % (4.0-6.0)
[2020-08-30 20:48] LABS: Glucose,Whole Blood 222 mg/dL (75-99)
[2020-08-30] MEDS ORDERED: LORazepam 0.5 MG TAB PO SCH (21:00)
--- NOTE | 2020-08-30 23:15 | HP ---
HISTORY AND PHYSICAL This patient is a 50-year-old -[place] female who came in with fluid overload and she was missing dialysis. She was admitted for dialysis. She was also complaining of 10/10 pain in her right arm between her elbow and her hand, for which she had been to the ER the day before and sent home. Pain is severe, out of control pain she says of this right arm. She apparently had an ultrasound yesterday which showed no DVT, but a superficial phlebitis, for which a vascular consult is recommended at this time, and dialysis. PAST MEDICAL HISTORY: Asthma, blood disorder, heart failure, COPD, CVA, TIA, diabetes mellitus, DVT, GERD, GI bleed, dyslipidemia, hypertension, myocardial infarction, renal disease, vascular disorder. FAMILY HISTORY: Father with asthma, cancer, mild DVT, myocardial infarction. MEDICATIONS: See list. PHYSICAL EXAMINATION: VITAL SIGNS: Temperature 98, pulse 80 to 87, respiratory rate 18 to 20, blood pressures 130 to 160s over 90s to 100s, oxygen 94% to 95%. She says there is excruciating pain over the right arm, and it hurts so much she cannot take it. She has some mild tenderness in the forearm on the right arm, especially over possibly some IV sites. Some questionable superficial phlebitis type sensations . CARDIOVASCULAR: S1, S2. LUNGS: Clear. Extremities show third-spacing fluid from edema and fluid overload. VASCULAR: Normal dorsalis pedis, posterior tibial. INTEGUMENT: No skin rashes or excoriations. ASSESSMENT: 1. End-stage renal disease. 2. Right lower extremity swelling. No evidence of DVT on ultrasound recently. We will get a vascular consult for this. 3. Diabetes mellitus. 4. Anemia of chronic disease. 5. Fluid overload. 6. Hypertension. 7. Chronic kidney disease. Hemodialysis 3-4 L today. Await vascular consult on her right arm and then possible discharge if cleared by Vascular Surgery. MMODL / IJN: [id number] /
[2020-08-31] MEDS: HYDROmorphone 1 MG/ML 1 ML SYRINGE IVP PRN ×3 (03:56→13:19)
[2020-08-31 07:19] LABS: Glucose,Whole Blood 137 mg/dL (75-99)
[2020-08-31] MEDS: INSULIN ASPART (NovoLOG) 100 UNIT/ML VIAL SQ SCH ×2 (08:19→12:24)
[2020-08-31] MEDS: CALCIUM ACETATE 667 MG TAB PO SCH (08:19)
[2020-08-31] MEDS: PANTOPRAZOLE 40 MG TABLET PO SCH (08:20)
[2020-08-31] MEDS: METOCLOPRAMIDE 5 MG TAB PO SCH ×2 (08:20→12:25)
[2020-08-31] MEDS: REPAGLINIDE 1 MG TAB PO SCH (08:21)
--- NOTE | 2020-08-31 11:01 | P.PN ---
Subjective patient is seen in follow-up for end-stage renal disease. She is maintained on hemodialysis on Thursday schedule. currently undergoing dialysis. Feels weak. She was vomiting this morning. Vital signs are stable. General: The patient appeared well nourished and normally developed. HEENT: Head exam is unremarkable. Neck is without jugular venous distension. LUNGS: Lungs are clear to auscultation and percussion. Breath sounds decreased. HEART: Rate and Rhythm are regular. First and second heart sounds normal. No murmurs, rubs or gallops. ABDOMEN: Abdominal exam reveals normal bowel sounds. Non-tender and non- distended. EXTREMITITES: No clubbing, cyanosis, or edema. Objective - Vital Signs Vital signs: Vital Signs Temp 97.5 F L 08/31/20 05:00 Pulse 84 08/31/20 05:00 Resp 18 08/31/20 05:00 BP 145/78 08/31/20 05:00 Pulse Ox 94 L 08/31/20 05:00 Intake & Output 08/30/20 08/31/20 08/31/20 18:59 06:59 18:59 Intake Total 520 300 Output Total 3700 Balance -3180 300 Weight 81.647 kg Intake: Oral 520 300 Output: Hemodialysis 3700 Other: Voiding Method Toilet Toilet Toilet - Labs CBC & Chem 7: 08/30/20 00:36 08/30/20 00:36 Labs: Abnormal Lab Results - Last 24 Hours (Table) 08/30/20 08/30/20 08/30/20 Range/Units 00:36 11:08 20:38 POC Glucose (mg/dL) 304 H 222 H (75-99) mg/dL Hemoglobin A1c 6.3 H (4.0-6.0) % 08/31/20 Range/Units 07:18 POC Glucose (mg/dL) 137 H (75-99) mg/dL Hemoglobin A1c (4.0-6.0) % Assessment and Plan Plan: assessment: 1. End-stage renal disease maintained on hemodialysis on Thursday schedule via left chest permacath. She has a maturing left upper extremity AV fistula. 2. Right upper extremity swelling. No evidence of DVT noted on ultrasound. Vascular surgery following. 3. Diabetes mellitus. 4. Anemia of chronic kidney disease. Hemoglobin at goal. maintained on Do nesp. 5. Volume overload. 6. Hypertension with chronic kidney disease. Stable. 7. Chronic kidney disease mineral bone disease maintained on PhosLo. plan: currently seen while undergoing hemodialysis. anticipate discharge soon.
[2020-08-31] MEDS: DICYCLOMINE 20 MG TAB PO SCH ×2 (11:12→12:25)
[2020-08-31] MEDS: hydrALAZINE HCL 50 MG TAB PO SCH ×2 (11:12→16:08)
[2020-08-31] MEDS: hydrOXYzine HCL 10 MG TAB PO SCH ×2 (11:13→16:08)
[2020-08-31 11:34] LABS: Glucose,Whole Blood 147 mg/dL (75-99)
[2020-08-31] MEDS: APIXABAN 2.5 MG TABLET PO SCH (12:23)
[2020-08-31] MEDS: CLOPIDOGREL 75 MG TAB PO SCH (12:23)
[2020-08-31] MEDS: FOLIC ACID-VIT B COMPLEX-VIT C 1 CAP PO SCH (12:23)
[2020-08-31] MEDS: diphenhydrAMINE 2% CREAM 28.4 GM TUBE TOPICAL SCH (12:23)
[2020-08-31] MEDS: amLODIPine 5 MG TAB PO SCH (12:23)
[2020-08-31] MEDS: PREGABALIN 75 MG CAP PO SCH (12:24)
[2020-08-31] MEDS: METOPROLOL SUCCINATE (ER) 50 MG TAB.ER.24H PO SCH (12:24)
[2020-08-31] MEDS: LORATADINE 10 MG TAB PO SCH (12:24)
[2020-08-31 15:40] VITALS: TEMP 97.7
[2020-08-31 15:48] VITALS: BP 156/86; PULSE 83; RESP 20
[2020-08-31] MEDS ORDERED: HYDROcodone/APAP 10-325MG 1 EACH TAB PO PRN (22:20)
--- NOTE | 2020-08-31 23:37 | PN ---
PROGRESS NOTE A 50-year-old -[place] female who was admitted with fluid overload. She is complaining of right forearm pain. She had a superficial phlebitis a few days ago, which she came back to the hospital for. Ultrasound again in the ER this time on admission due to fluid overload showed no DVT or superficial phlebitis in the arm, but she still complains of severe right arm pain and is refusing to leave the hospital on discharge. The ER doctor did not admit her for the right forearm pain, only for fluid overload. She missed dialysis. She has no blood clot in the forearm and cleared by vascular surgery. I guess we will get a consult with orthopedic surgery to rule out anything else in the forearm like compartment syndrome which I doubt because she is neurovascular intact and may have facility planner come talk to her about going home as she has refused to go home. Please see further orders. MMAMAIRANIL / IJN: [id number] /
[2020-09-01] MEDS ORDERED: KETOROLAC 15 MG/ML 1 ML VIAL IM SCH
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
== END 2020-08-31 18:16 | disposition home or self-care (01) ==
LOC: EC 23:28 → 6NMEDSUR 08-30 04:24
PROVIDERS: ADMIT Family Medicine; ATTEND Family Medicine
DX: I13.2 Hypertensive heart and chronic kidney disease with heart failure and with stage 5 chronic kidney disease, or end stage renal disease (principal); N18.6 End stage renal disease; I50.9 Heart failure, unspecified; J44.9 Chronic obstructive pulmonary disease, unspecified; E11.22 Type 2 diabetes mellitus with diabetic chronic kidney disease; E11.43 Type 2 diabetes mellitus with diabetic autonomic (poly)neuropathy; K31.84 Gastroparesis; K21.9 Gastro-esophageal reflux disease without esophagitis; E78.5 Hyperlipidemia, unspecified; R22.31 Localized swelling, mass and lump, right upper limb; M79.631 Pain in right forearm; I73.9 Peripheral vascular disease, unspecified; D63.1 Anemia in chronic kidney disease; Z91.15 Patient's noncompliance with renal dialysis; K74.60 Unspecified cirrhosis of liver; M32.9 Systemic lupus erythematosus, unspecified; I71.4 Abdominal aortic aneurysm, without rupture; D68.51 Activated protein C resistance; M54.16 Radiculopathy, lumbar region; F17.200 Nicotine dependence, unspecified, uncomplicated; L29.9 Pruritus, unspecified; K58.9 Irritable bowel syndrome, unspecified; Z79.01 Long term (current) use of anticoagulants; Z79.02 Long term (current) use of antithrombotics/antiplatelets; Z79.891 Long term (current) use of opiate analgesic; Z79.899 Other long term (current) drug therapy; Z88.2 Allergy status to sulfonamides; Z88.8 Allergy status to other drugs, medicaments and biological substances; Z88.1 Allergy status to other antibiotic agents; Z91.040 Latex allergy status; I25.2 Old myocardial infarction; Z99.2 Dependence on renal dialysis; Z87.01 Personal history of pneumonia (recurrent); Z87.19 Personal history of other diseases of the digestive system; Z95.5 Presence of coronary angioplasty implant and graft; Z95.1 Presence of aortocoronary bypass graft; Z90.49 Acquired absence of other specified parts of digestive tract; Z98.51 Tubal ligation status; Z95.828 Presence of other vascular implants and grafts; Z86.73 Personal history of transient ischemic attack (TIA), and cerebral infarction without residual deficits; Z82.5 Family history of asthma and other chronic lower respiratory diseases; Z82.49 Family history of ischemic heart disease and other diseases of the circulatory system; Z80.9 Family history of malignant neoplasm, unspecified
CPT/HCPCS: 96376 ×2; 96372; 96374; 96375 ×2; 36415; 83880; 80053; 85025; 83036; 71045; 93971; G0257 ×2; G0378 ×2; J2270; J2405; J1170 ×2; J1642; J0881; 90935

== ENCOUNTER 2020-09-07 15:33 | Inpatient (IN) | payer MEDICARE, OTHER ==
[2020-09-07] MEDS ORDERED: ONDANSETRON 4 MG/2 ML VIAL IVP STA (16:23)
[2020-09-07 16:51] LABS: Anisocytosis Slight; Basophils % (A) 0 %; Eosinophils # (A) 0.3 k/uL (0-0.7); Eosinophils % (A) 3 %; HCT 35.9 % (34.0-46.0); HGB 11.6 gm/dL (11.4-16.0); Lymphocytes # (A) 0.5 k/uL (1.0-4.8); Lymphocytes % (A) 5 %; MCH 30.5 pg (25.0-35.0); MCHC 32.2 g/dL (31.0-37.0); MCV 94.6 fL (80.0-100.0); Mean Platelet Volume 8.7; Monocytes # (A) 0.5 k/uL (0-1.0); Monocytes % (A) 4 %; Neutrophils # (A) 9.7 k/uL (1.3-7.7); Neutrophils % (A) 87 %; Platelet Count 240 k/uL (150-450); RBC 3.79 m/uL (3.80-5.40); RDW 16.6 % (11.5-15.5); WBC 11.1 k/uL (3.8-10.6)
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
[2020-09-07 17:02] LABS: Partial Thromboplastin Time 59.8 sec (22.0-30.0); Prothrombin Time 10.7 sec (9.0-12.0)
[2020-09-07 17:11] LABS: Albumin 3.3 g/dL (3.5-5.0); Calcium 8.3 mg/dL (8.4-10.2); Total Bilirubin 2.7 mg/dL (0.2-1.3); Total Protein 6.8 g/dL (6.3-8.2)
[2020-09-07] MEDS ORDERED: PANTOPRAZOLE 40 MG/10 ML VIAL IVP STA (17:13)
[2020-09-07 17:18] LABS: Potassium 5.2 mmol/L (3.5-5.1)
--- NOTE | 2020-09-07 17:51 | XR ---
EXAMINATION TYPE: XR chest 2V DATE OF EXAM: 09/07/2020 COMPARISON: 08/30/2020 HISTORY: Short of breath chest pain TECHNIQUE: FINDINGS: Heart is enlarged. There is right-sided central venous catheter with tip in the superior ve na cava. There is left side central venous catheter with tip in the right atrium. There are sternal w ires. Costophrenic angles are clear. There is mild pulmonary vascular congestion. IMPRESSION: Cardiomegaly and mild pulmonary congestion similar to old exam. No pleural fluid seen.
[2020-09-07] MEDS ORDERED: NALOXONE 0.4 MG/ML 1 ML VIAL IV PRN (18:17)
[2020-09-07] MEDS ORDERED: ONDANSETRON 4 MG/2 ML VIAL IVP PRN (18:17)
[2020-09-07] MEDS ORDERED: INSULIN REGULAR 100 UNIT/ML VIAL SQ ONE (18:22)
[2020-09-07] MEDS ORDERED: NITROGLYCERIN SL TABS 0.4 MG TAB SUBLINGUAL PRN (19:46)
[2020-09-07] MEDS ORDERED: CHOLESTYRAMINE (WITH SUGAR) 4 GM PACKET PO PRN (19:46)
[2020-09-07] MEDS ORDERED: ONDANSETRON 4 MG TAB PO PRN (19:46)
[2020-09-07 20:37] LABS: Glucose,Whole Blood 376 mg/dL (75-99)
[2020-09-07] MEDS: INSULIN ASPART (NovoLOG) 100 UNIT/ML VIAL SQ SCH (20:49)
[2020-09-07] MEDS: amLODIPine 5 MG TAB PO SCH (20:49)
[2020-09-07] MEDS: PREGABALIN 75 MG CAP PO SCH (20:49)
[2020-09-07] MEDS: APIXABAN 2.5 MG TABLET PO SCH (20:49)
[2020-09-07] MEDS: hydrALAZINE HCL 50 MG TAB PO SCH (20:50)
[2020-09-07] MEDS: DICYCLOMINE 20 MG TAB PO SCH (20:50)
[2020-09-07] MEDS: HYDROcodone/APAP 5-325MG 1 EACH TAB PO PRN (20:50)
[2020-09-07] MEDS: diphenhydrAMINE 2% CREAM 28.4 GM TUBE TOPICAL SCH (21:40)
[2020-09-07] MEDS: hydrOXYzine HCL 10 MG TAB PO SCH (21:40)
[2020-09-08] MEDS: INSULIN ASPART (NovoLOG) 100 UNIT/ML VIAL SQ SCH ×4 (07:07→22:00)
[2020-09-08 07:08] LABS: Glucose,Whole Blood 120 mg/dL (75-99)
[2020-09-08] MEDS: hydrALAZINE HCL 50 MG TAB PO SCH ×2 (07:11→14:59)
[2020-09-08] MEDS: amLODIPine 5 MG TAB PO SCH ×2 (07:11→21:59)
[2020-09-08] MEDS: METOPROLOL SUCCINATE (ER) 50 MG TAB.ER.24H PO SCH (07:11)
[2020-09-08] MEDS: CALCIUM ACETATE 667 MG TAB PO SCH ×2 (07:16→17:10)
[2020-09-08] MEDS: CLOPIDOGREL 75 MG TAB PO SCH (07:17)
[2020-09-08] MEDS: FOLIC ACID-VIT B COMPLEX-VIT C 1 CAP PO SCH (07:17)
[2020-09-08] MEDS: LORATADINE 10 MG TAB PO SCH (07:17)
[2020-09-08] MEDS: APIXABAN 2.5 MG TABLET PO SCH ×2 (07:17→21:59)
[2020-09-08] MEDS: METOCLOPRAMIDE 5 MG TAB PO SCH ×3 (07:17→17:09)
[2020-09-08] MEDS: DICYCLOMINE 20 MG TAB PO SCH ×4 (07:17→21:59)
[2020-09-08] MEDS: PREGABALIN 75 MG CAP PO SCH ×2 (07:17→21:59)
[2020-09-08] MEDS: hydrOXYzine HCL 10 MG TAB PO SCH ×3 (07:18→21:59)
[2020-09-08] MEDS: REPAGLINIDE 1 MG TAB PO SCH ×2 (07:18→17:09)
[2020-09-08] MEDS: diphenhydrAMINE 2% CREAM 28.4 GM TUBE TOPICAL SCH ×2 (07:19→21:59)
[2020-09-08] MEDS: HYDROcodone/APAP 5-325MG 1 EACH TAB PO PRN ×2 (09:02→14:58)
[2020-09-08 11:45] LABS: Glucose,Whole Blood 167 mg/dL (75-99)
--- NOTE | 2020-09-08 12:29 | CONS ---
CONSULTATION DATE OF CONSULTATION: 09/08/2020 REASON FOR CONSULTATION: Severe diarrhea. HISTORY OF PRESENT ILLNESS: The patient is a 50-year-old pleasant female admitted to the hospital with severe right upper extremity pain and diarrhea for the last 3 days duration. The patient is known to us from her previous hospitalization. She was in the hospital for 2 weeks about a month ago for abdominal pain and subsequently underwent gallbladder surgery. She was also noted to have elevated LFTs at that time as well as mild jaundice. She underwent gallbladder surgery as well as liver biopsy on July 26. Liver biopsy showed severe intrahepatic cholestasis consistent with chronic venous outflow obstruction. The patient continued to have elevated serum transaminases since. She was just discharged home from the hospital a week ago when she was admitted with fluid overload. She has history of end-stage renal disease on hemodialysis. After being discharged from the hospital, patient started complaining of right upper arm pain at the site of a previous IV. The pain continued to progressively get worse and for the last 3 days she is not able to lift her hand up because of the pain. She became very concerned and came to the emergency room and subsequently admitted to the hospital for further evaluation. She did have a venous Doppler study of the right upper extremity that was negative for DVT about a week ago. She is also complaining of diarrhea with 5-6 loose watery bowel movements for the last few days. No blood or mucus in the stools. No abdominal pain. No nausea, no vomiting. PAST MEDICAL HISTORY: Significant for end-stage renal disease on hemodialysis, hypertension, congestive heart failure, history of CVA in the past, diabetes mellitus, DVT in the past, hyperlipidemia, coronary artery disease, chronic kidney disease. PAST SURGICAL HISTORY: Cholecystectomy, CABG, cardiac catheterization with stent placement, tubal ligation. MEDICATIONS: Medications at home include Toprol, [place], Reglan, Zofran, Xanax, Eliquis, Plavix, apresoline, hydroxyzine, and . ALLERGIES: ATORVASTATIN, KEFLEX, ZOCOR, BACTRIM. SOCIAL HISTORY: Patient occasionally Smokes cigarettes. No alcohol use. FAMILY HISTORY: Mother had asthma. Father with DVT and coronary artery disease. REVIEW OF SYSTEMS: CARDIOPULMONARY: She denies any chest pain, shortness of breath. : No dysuria or hematuria. MUSCULOSKELETAL: Severe pain right upper extremity. NEUROLOGY: Unremarkable. PSYCHIATRIC: Unremarkable. ENT/VISION: Unremarkable. CONSTITUTIONAL: No recent weight loss. No fever, chills, night sweats. GI: As mentioned above. HEMATOLOGY: Unremarkable. PHYSICAL EXAMINATION: GENERAL: She appears comfortable. No apparent distress. VITAL SIGNS: Stable. Blood pressure is 157/72, pulse rate 90, temperature 98.1. HEENT: Examination unremarkable. Conjunctivae are pink. Sclerae anicteric. Oral cavity no lesions. NECK: No JVD or lymph node enlargement. CHEST: Clear to auscultation. HEART: Regular rate and rhythm. ABDOMEN: Soft, it was nontender, nondistended. Bowel sounds are positive. No organomegaly EXTREMITIES: No pedal edema. NEUROLOGIC: Alert and oriented x3. No focal deficits. LABS: From today WBC 11.1, hemoglobin 11.6, platelets normal. Basic metabolic panel showed a PT 10.7, INR 1.0. BUN 79, creatinine 5.87, sodium 131, potassium 5.2, chloride 105, CO2 13. Stool occult blood was positive. C difficile toxin was negative. Lactoferrin was negative. T-bilirubin was 2.7, AST 48, ALT 57 and alkaline phosphatase is 778. IMPRESSION: 1. Acute onset of severe diarrhea for the last few days duration. Clostridium difficile toxin is negative, lactoferrin negative. Rule out other infectious etiology. 2. Nausea and vomiting, resolved. 3. End-stage renal disease, on hemodialysis. 4. Right upper extremity pain and swelling, possibly superficial thrombophlebitis. 5. Elevated liver enzymes with a bilirubin and alkaline phosphatase that is elevated. All workup for chronic liver disease was negative a month ago. She did have a liver biopsy on July 26 at the time of gallbladder surgery that showed evidence of severe intrahepatic cholestasis secondary to chronic venous outflow obstruction. The patient has been off statins since then and serum transaminases continue to remain the same. 6. Longstanding history of diabetes mellitus. 7. History of coronary artery disease on aspirin and Plavix. 8. History of deep venous thrombosis. On Eliquis. RECOMMENDATIONS: 1. Obtain stool cultures to rule out infectious etiology. 2. Start her back on cholestyramine 4 grams twice daily for the diarrhea. 3. Monitor LFTs closely. 4. Continue symptomatic and supportive care. We will follow with you closely. Thank you for this consultation. MMODL / IJN: [id number] /
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
[2020-09-08 15:19] LABS: Anisocytosis Slight; Basophils % (A) 0 %; Eosinophils # (A) 0.2 k/uL (0-0.7); Eosinophils % (A) 3 %; HCT 33.3 % (34.0-46.0); HGB 10.9 gm/dL (11.4-16.0); Lymphocytes # (A) 0.8 k/uL (1.0-4.8); Lymphocytes % (A) 10 %; MCHC 32.9 g/dL (31.0-37.0); MCV 94.1 fL (80.0-100.0); Mean Platelet Volume 8.9; Monocytes # (A) 0.4 k/uL (0-1.0); Monocytes % (A) 5 %; Neutrophils # (A) 6.8 k/uL (1.3-7.7); Neutrophils % (A) 82 %; Platelet Count 237 k/uL (150-450); RBC 3.54 m/uL (3.80-5.40); RDW 16.8 % (11.5-15.5); WBC 8.4 k/uL (3.8-10.6)
[2020-09-08 17:01] LABS: Glucose,Whole Blood 120 mg/dL (75-99)
--- NOTE | 2020-09-08 19:44 | HP ---
HISTORY AND PHYSICAL 50-year-old female who comes in with severe diarrhea over the past week. Since her last discharge from the hospital she states she is unable to do any anything, too weak to get out of bed due to severe diarrhea for the past week or two. She has also had elevated LFTs, mild jaundice, status post gallbladder surgery. Due to this she missed dialysis for a whole week. She has fluid overload, came in the hospital for dialysis. She had significant pain in the right arm which was negative for DVT or phlebitis about a week ago. She was sent home to follow up. PAST MEDICAL HISTORY: See old chart. Diastolic heart failure, COPD, possible cirrhosis, congestive heart failure, diabetes mellitus, history of CVA, dyslipidemia, chronic kidney disease, coronary artery disease. SURGICAL HISTORY: Cholecystectomy, CABG, heart catheterization with stent, tubal ligation. MEDICATIONS: Include Toprol, [place], Reglan, Zofran, Xanax, Eliquis, Plavix, Apresoline, Zaroxolyn. ALLERGIES: ATORVASTATIN, KEFLEX, ZOCOR, BACTRIM. SOCIAL HISTORY: She ( ) smoke cigarettes. No alcohol. FAMILY HISTORY: Mother had asthma. Father had DVT and coronary artery disease. REVIEW OF SYSTEMS: Fourteen-point review of systems negative except for mentioned in HPI. PHYSICAL EXAM: Vital signs stable. Blood pressure 150s over 70s, pulse 80s to 90s. Temp 98.1. HEENT: Normocephalic, atraumatic. CARDIOVASCULAR: S1, S2. LUNGS: Clear. ABDOMEN: Soft, nontender. EXTREMITIES: No pedal edema. GI is distended, decreased bowel sounds. NEUROLOGIC: Alert and oriented. LABS: Reviewed. BUN is 79, creatinine 5.87. White count 11, hemoglobin 11.6. C diff is negative. Lactoferrin was negative. Total bilirubin is 2 7. ASSESSMENT: 1. Acute onset of severe diarrhea for the past week. C diff is negative as well as lactoferrin. 2. Nausea and vomiting, resolved. 3. End-stage renal disease. 4. Thrombophlebitis of the arm. 5. Elevated liver enzymes, possible cirrhosis. 6. Diabetes mellitus. 7. Coronary artery disease. 8. History of deep venous thrombectomy. Continue with three stool cultures, dialysis, slow down diarrhea with Questran. Monitor LFTs. Symptomatic care. Await for GI and renal doctor recommendations. MMODL / IJN: [id number] /
[2020-09-08 20:55] LABS: Glucose,Whole Blood 136 mg/dL (75-99)
[2020-09-08 22:50] LABS: African American GFR (CKD) 15.4 (60.0-200.0); Anion Gap 11.2 mmol/L (4.00-12.00); BUN/Creat Ratio 12.7 Ratio (12.00-20.00); Calcium 8.4 mg/dL (8.7-10.3); Carbon Dioxide 17.8 mmol/L (21.6-31.8); Non-African American GFR(CKD) 13.3 (60.0-200.0); Phosphorus 4.2 mg/dL (2.4-5.1); Potassium 4.4 mmol/L (3.5-5.5)
[2020-09-09] MEDS: HYDROcodone/APAP 5-325MG 1 EACH TAB PO PRN ×3 (01:35→21:12)
[2020-09-09] MEDS: hydrALAZINE HCL 50 MG TAB PO SCH ×3 (01:35→15:23)
[2020-09-09 07:24] LABS: Glucose,Whole Blood 118 mg/dL (75-99)
[2020-09-09] MEDS: amLODIPine 5 MG TAB PO SCH (08:50)
[2020-09-09] MEDS: INSULIN ASPART (NovoLOG) 100 UNIT/ML VIAL SQ SCH ×4 (08:50→20:18)
[2020-09-09] MEDS: METOPROLOL SUCCINATE (ER) 50 MG TAB.ER.24H PO SCH (08:51)
[2020-09-09] MEDS: DICYCLOMINE 20 MG TAB PO SCH ×4 (08:56→21:12)
[2020-09-09] MEDS: APIXABAN 2.5 MG TABLET PO SCH (08:56)
[2020-09-09] MEDS: CLOPIDOGREL 75 MG TAB PO SCH (08:56)
[2020-09-09] MEDS: LORATADINE 10 MG TAB PO SCH (08:56)
[2020-09-09] MEDS: REPAGLINIDE 1 MG TAB PO SCH ×2 (08:56→16:52)
[2020-09-09] MEDS: CALCIUM ACETATE 667 MG TAB PO SCH ×2 (08:56→16:52)
[2020-09-09] MEDS: PREGABALIN 75 MG CAP PO SCH ×2 (08:56→21:12)
[2020-09-09] MEDS: hydrOXYzine HCL 10 MG TAB PO SCH ×3 (08:56→21:12)
--- NOTE | 2020-09-09 08:56 | P.PN ---
Subjective This is a 50-year-old female known to us with ESRD who is very noncompliant with her dialysis. Her last dialysis was on 08/31/2020. She came in because of diarrhea for several weeks. She claims that she is making large amount of urine which might explain her labs which were reasonable in spite of missing dialysis Her diarrhea continues as she went to the bathroom 4 times yesterday. She also complains of right arm pain which is swollen and has been so since her last admission here last month and a Doppler on 08/30/2020 was negative for any DVT. She does have a Mediport on that side. Her permacath Is on the left side. She had cholecystectomy on 07/23/2020. After discharge is readmitted on 08/01/2020 with fluid overload and abdominal pain and discharged on 08/06/2020. She has history of COPD diabetes DVT coronary artery bypass graft stents and peripheral vascular disease with stent. Additionally she had a cholecystectomy and liver biopsy which showed intrahepatic cholestasis and chronic venous outflow obstruction. Objective - Vital Signs Vital signs: Vital Signs Temp 98.3 F 09/09/20 07:00 Pulse 98 09/09/20 07:00 Resp 18 09/09/20 07:00 BP 98/56 09/09/20 07:00 Pulse Ox 99 09/09/20 07:00 Intake & Output 09/08/20 09/09/20 09/09/20 18:59 06:59 18:59 Intake Total 540 500 Output Total 2500 Balance -1960 500 Intake: Oral 540 500 Output: Hemodialysis 2500 Other: Voiding Method Toilet Toilet # Voids 1 # Bowel Movements 2 On examination she is awake alert oriented comfortable. She ate BREAKFAST HEENT exam no JVP neck is supple no facial asymmetry Lungs are significant for bilateral fine crackles good air entry bilaterally Heart sounds are unremarkable for any murmur rub gallop Abdomen soft nontender Extremity exam was edema of the right upper arm, and minimal edema of both legs Neurologically awake alert oriented but generalized weakness - Labs CBC & Chem 7: 09/08/20 15:05 09/08/20 15:05 Labs: Abnormal Lab Results - Last 24 Hours (Table) 09/08/20 09/08/20 09/08/20 Range/Units 11:44 15:05 15:05 RBC 3.54 L (3.80-5.40) m/uL Hgb 10.9 L (11.4-16.0) gm/dL Hct 33.3 L (34.0-46.0) % RDW 16.8 H (11.5-15.5) % Lymphocytes # 0.8 L (1.0-4.8) k/uL Chloride 113 H (96-109) mmol/L Carbon Dioxide 17.8 L (21.6-31.8) mmol/L BUN 47.0 H (9.0-27.0) mg/dL Creatinine 3.7 H (0.6-1.5) mg/dL Est GFR (CKD-EPI)AfAm 15.4 L (60.0-200.0) Est GFR (CKD-EPI)NonAf 13.3 L (60.0-200.0) Glucose 142 H (70-110) mg/dL POC Glucose (mg/dL) 167 H (75-99) mg/dL Calcium 8.4 L (8.7-10.3) mg/dL 09/08/20 09/08/20 09/09/20 Range/Units 17:00 20:25 07:23 RBC (3.80-5.40) m/uL Hgb (11.4-16.0) gm/dL Hct (34.0-46.0) % RDW (11.5-15.5) % Lymphocytes # (1.0-4.8) k/uL Chloride (96-109) mmol/L Carbon Dioxide (21.6-31.8) mmol/L BUN (9.0-27.0) mg/dL Creatinine (0.6-1.5) mg/dL Est GFR (CKD-EPI)AfAm (60.0-200.0) Est GFR (CKD-EPI)NonAf (60.0-200.0) Glucose (70-110) mg/dL POC Glucose (mg/dL) 120 H 136 H 118 H (75-99) mg/dL Calcium (8.7-10.3) mg/dL Assessment and Plan Assessment: Impression 1. ESRD on dialysis with noncompliance last dialysis was 08/31/2021 week ago. Last dialysis here in the hospital was yesterday 09/08/2020 2. Fairly unremarkable labs in spite of ESRD because of good urine output 3. Admitted with diarrhea chronic C. diff is negative, diarrhea is continuing 4. History of liver disease with liver biopsy biopsy supposedly shows intra hepatic cholestasis and chronic venous outflow obstruction , in July 2020 to 5. Recent cholecystectomy 07/23/2020 6. Long-standing diabetes mellitus 7. History of coronary artery disease with CABG and peripheral vascular disease and stenting. 8. history of DVT 9. Mild anemia hemoglobin 7.6 secondary to ESRD 10. Swelling of the right upper arm for the last few weeks with a negative Doppler on 08/30/2020. 11. Congestive heart failure, fluid overload Recommendation 1. She'll be dialyzed tomorrow will take off 3-4 L or 20 half hours. 2. She might have stenosis of the right subclavian vein causing her swelling of that arm. Consider vascular surgery evaluation
[2020-09-09] MEDS: METOCLOPRAMIDE 5 MG TAB PO SCH ×3 (08:57→16:52)
[2020-09-09] MEDS: diphenhydrAMINE 2% CREAM 28.4 GM TUBE TOPICAL SCH ×2 (08:57→21:13)
[2020-09-09] MEDS: FOLIC ACID-VIT B COMPLEX-VIT C 1 CAP PO SCH (08:57)
[2020-09-09 11:40] LABS: Glucose,Whole Blood 332 mg/dL (75-99)
--- NOTE | 2020-09-09 11:45 | PN ---
PROGRESS NOTE DATE OF SERVICE: September 09, 2020 Patient is a 50-year-old white female admitted to the hospital with right upper extremity thrombophlebitis and severe pain. While in the hospital, she has been complaining of severe diarrhea. She is having about 5-6 loose watery bowel movements daily. She is having these symptoms almost for 2 weeks duration. She did have stool studies for C difficile toxin, which was negative. She is on Bentyl 20 mg 4 times daily. Her last colonoscopy was more than 10 years ago. Stool occult blood was positive and stool lactoferrin was negative. PHYSICAL EXAMINATION: She appears comfortable. No apparent distress. VITAL SIGNS: Stable. Blood pressure 98/56, pulse rate 98, temperature 98. HEENT examination unremarkable. Conjunctivae pink. Sclerae anicteric. Oral cavity no lesions. Neck no JVD or lymph node enlargement. CHEST: Clear to auscultation. HEART: Regular rate and rhythm. ABDOMEN: Mild tenderness in the left lower quadrant area. Rest of the abdomen was benign. Bowel sounds are positive. EXTREMITIES: Swelling of the right upper extremity from thrombophlebitis. NEUROLOGIC: Alert and oriented x3. No focal deficits. LABS: From today WBC 8.4, hemoglobin 10.9, platelets normal. Basic metabolic panel is within normal limits. BUN is 47, creatinine 3.7. Stool occult blood is positive. IMPRESSION: 1. Chronic diarrhea for the last 2 weeks duration. Stool studies so far have been negative. Currently on Bentyl as well as Questran with no help. Last colonoscopy more than 10 years ago. 2. End-stage renal disease on hemodialysis. 3. History of atrial fibrillation on Eliquis. 4. Elevated LFTs and mild jaundice status post liver biopsy 1 month ago that showed chronic venous outflow obstruction. 5. Longstanding history of diabetes mellitus and hypertension. RECOMMENDATIONS: I had a lengthy discussion with the patient regarding ongoing diarrhea. I recommended a colonoscopy. The patient is currently on Eliquis. We will hold it off for 2 days and will plan on doing colonoscopy on Thursday. I discussed with the patient. She is agreeable to it. In the meantime, continue with Questran and Bentyl. We will plan on a clear liquid diet tomorrow and perform colonoscopy on Thursday. Thank you for this consultation. MMODL / IJN: [id number] /
--- NOTE | 2020-09-09 13:24 | PN ---
PROGRESS NOTE She is complaining of right arm pain, unable to move her arm, although nurse says she does move her arm. She has had diarrhea. She came in for progressive diarrhea, missing dialysis for a week. She says she still has loose watery stools. C diff is negative. She is on Bentyl 4 times a day. She had a colonoscopy more than 10 years ago. Stool occult was positive. Stool lactoferrin was negative Cardiovascular S1-S2. Lungs are clear. GI is minimal tenderness, diffuse. White count 8.4, hemoglobin 10.9, BUN 47, creatinine 3.7. ASSESSMENT: 1. Chronic diarrhea for 2 weeks. Stool studies so far negative, on Bentyl and Questran. No help. 2. End-stage renal disease. 3. Atrial fibrillation. 4. Chronic obstructive pulmonary disease. 5. Diastolic heart failure. 6. Diabetes mellitus. 7. Hypertension. We will hold her Eliquis and get a colonoscopy on Thursday. Continue with Questran and Bentyl. Clear liquid diet tomorrow. Perform colonoscopy on Thursday. We will make sure she is off Eliquis and was on subcutaneous heparin in the meantime. MMODL / IJN: [id number] /
[2020-09-09 15:31] LABS: Anisocytosis Slight; Basophils % (A) 0 %; Eosinophils # (A) 0.1 k/uL (0-0.7); Eosinophils % (A) 2 %; HCT 31.9 % (34.0-46.0); HGB 10.2 gm/dL (11.4-16.0); Lymphocytes # (A) 0.6 k/uL (1.0-4.8); Lymphocytes % (A) 7 %; MCV 93.8 fL (80.0-100.0); Mean Platelet Volume 8.9; Monocytes # (A) 0.4 k/uL (0-1.0); Monocytes % (A) 5 %; Neutrophils # (A) 6.8 k/uL (1.3-7.7); Neutrophils % (A) 85 %; Platelet Count 190 k/uL (150-450); RDW 16.3 % (11.5-15.5)
[2020-09-09 16:42] LABS: Glucose,Whole Blood 113 mg/dL (75-99)
[2020-09-09 20:19] LABS: Glucose,Whole Blood 127 mg/dL (75-99)
[2020-09-09] MEDS: HEPARIN SODIUM,PORCINE 5,000 UNIT/ML 1 ML VIAL SQ SCH (21:13)
[2020-09-09 22:49] LABS: African American GFR (CKD) 12.2 (60.0-200.0); Albumin 3.2 g/dL (3.80-4.90); Albumin/Globulin Ratio 1.14 (1.60-3.17); Anion Gap 15.7 mmol/L (4.00-12.00); BUN/Creat Ratio 13.78 Ratio (12.00-20.00); Calcium 8.2 mg/dL (8.7-10.3); Carbon Dioxide 18.3 mmol/L (21.6-31.8); Globulin 2.8 g/dL (1.6-3.3); Non-African American GFR(CKD) 10.5 (60.0-200.0); Total Bilirubin 2.5 mg/dL (0.2-1.2)
[2020-09-10] MEDS: amLODIPine 5 MG TAB PO SCH ×3 (01:05→21:09)
[2020-09-10] MEDS: hydrALAZINE HCL 50 MG TAB PO SCH ×4 (01:05→21:07)
[2020-09-10 07:07] LABS: Glucose,Whole Blood 99 mg/dL (75-99)
[2020-09-10] MEDS: HEPARIN SODIUM,PORCINE 5,000 UNIT/ML 1 ML VIAL SQ SCH ×3 (07:08→21:11)
[2020-09-10] MEDS: INSULIN ASPART (NovoLOG) 100 UNIT/ML VIAL SQ SCH ×4 (07:08→21:11)
[2020-09-10] MEDS: REPAGLINIDE 1 MG TAB PO SCH ×2 (07:52→16:28)
[2020-09-10] MEDS: FOLIC ACID-VIT B COMPLEX-VIT C 1 CAP PO SCH (07:52)
[2020-09-10] MEDS: METOCLOPRAMIDE 5 MG TAB PO SCH ×4 (07:52→21:08)
[2020-09-10] MEDS: METOPROLOL SUCCINATE (ER) 50 MG TAB.ER.24H PO SCH (07:52)
[2020-09-10] MEDS: CALCIUM ACETATE 667 MG TAB PO SCH ×2 (07:52→16:28)
[2020-09-10] MEDS: LORATADINE 10 MG TAB PO SCH (07:53)
[2020-09-10] MEDS: CLOPIDOGREL 75 MG TAB PO SCH (07:53)
[2020-09-10] MEDS: DICYCLOMINE 20 MG TAB PO SCH ×4 (07:53→21:09)
[2020-09-10] MEDS: hydrOXYzine HCL 10 MG TAB PO SCH ×3 (07:53→21:09)
[2020-09-10] MEDS: PREGABALIN 75 MG CAP PO SCH ×2 (07:53→21:09)
[2020-09-10] MEDS: HYDROcodone/APAP 5-325MG 1 EACH TAB PO PRN ×3 (07:53→23:58)
[2020-09-10] MEDS: diphenhydrAMINE 2% CREAM 28.4 GM TUBE TOPICAL SCH ×2 (07:56→21:10)
--- NOTE | 2020-09-10 11:13 | P.PN ---
Subjective Patient is seen in follow-up for acute end-stage renal disease. She is maintained on hemodialysis on Thursday schedule. Tolerating oral intake. Denies diarrhea. Vital signs are stable. General: The patient appeared well nourished and normally developed. HEENT: Head exam is unremarkable. Neck is without jugular venous distension. LUNGS: Breath sounds decreased. HEART: Rate and Rhythm are regular. ABDOMEN: Soft, nondistended. EXTREMITITES: 1+ edema. Objective - Vital Signs Vital signs: Vital Signs Temp 98.1 F 09/10/20 07:00 Pulse 91 09/10/20 07:00 Resp 17 09/10/20 07:00 BP 108/66 09/10/20 07:00 Pulse Ox 98 09/10/20 07:00 Intake & Output 09/09/20 09/10/20 09/10/20 18:59 06:59 18:59 Intake Total 240 600 Balance 240 600 Weight 88.405 kg Intake: Oral 240 600 Other: Voiding Method Toilet Toilet Toilet # Voids 1 1 # Bowel Movements 3 - Labs CBC & Chem 7: 09/09/20 15:04 09/09/20 15:04 Labs: Abnormal Lab Results - Last 24 Hours (Table) 09/09/20 09/09/20 09/09/20 Range/Units 11:39 15:04 15:04 RBC 3.40 L (3.80-5.40) m/uL Hgb 10.2 L (11.4-16.0) gm/dL Hct 31.9 L (34.0-46.0) % RDW 16.3 H (11.5-15.5) % Lymphocytes # 0.6 L (1.0-4.8) k/uL Chloride 110 H (96-109) mmol/L Carbon Dioxide 18.3 L (21.6-31.8) mmol/L Anion Gap 15.70 H (4.00-12.00) mmol/L BUN 62.0 H (9.0-27.0) mg/dL Creatinine 4.5 H (0.6-1.5) mg/dL Est GFR (CKD-EPI)AfAm 12.2 L (60.0-200.0) Est GFR (CKD-EPI)NonAf 10.5 L (60.0-200.0) Glucose 176 H (70-110) mg/dL POC Glucose (mg/dL) 332 H (75-99) mg/dL Calcium 8.2 L (8.7-10.3) mg/dL Total Bilirubin 2.5 H (0.2-1.2) mg/dL AST 46 H (13-35) U/L ALT 48 H (8-44) U/L Alkaline Phosphatase 880 H (41-126) U/L Total Protein 6.0 L (6.2-8.2) g/dL Albumin 3.20 L (3.80-4.90) g/dL Albumin/Globulin Ratio 1.14 L (1.60-3.17) g/dL 09/09/20 09/09/20 Range/Units 16:41 20:02 RBC (3.80-5.40) m/uL Hgb (11.4-16.0) gm/dL Hct (34.0-46.0) % RDW (11.5-15.5) % Lymphocytes # (1.0-4.8) k/uL Chloride (96-109) mmol/L Carbon Dioxide (21.6-31.8) mmol/L Anion Gap (4.00-12.00) mmol/L BUN (9.0-27.0) mg/dL Creatinine (0.6-1.5) mg/dL Est GFR (CKD-EPI)AfAm (60.0-200.0) Est GFR (CKD-EPI)NonAf (60.0-200.0) Glucose (70-110) mg/dL POC Glucose (mg/dL) 113 H 127 H (75-99) mg/dL Calcium (8.7-10.3) mg/dL Total Bilirubin (0.2-1.2) mg/dL AST (13-35) U/L ALT (8-44) U/L Alkaline Phosphatase (41-126) U/L Total Protein (6.2-8.2) g/dL Albumin (3.80-4.90) g/dL Albumin/Globulin Ratio (1.60-3.17) g/dL Microbiology - Last 24 Hours (Table) 09/07/20 17:26 Stool Culture - Preliminary Stool Assessment and Plan Plan: Assessment: 1. End-stage renal disease maintained on hemodialysis on Thursday schedule. 2. Hypertension with chronic kidney disease. 3. Chronic kidney disease mineral bone disease maintained on PhosLo. 4. Diarrhea. C. diff negative. Maintain on Questran. Resolved. 5. Diabetes mellitus. 6. Metabolic acidosis secondary to GI losses. Improved. Plan: Hemodialysis today.
[2020-09-10 11:27] LABS: Glucose,Whole Blood 171 mg/dL (75-99)
--- NOTE | 2020-09-10 13:06 | P.PN ---
Subjective Progress Note Date: 09/10/20 Principal diagnosis: Severe diarrhea 48-year-old -[place] female who was admitted to the hospital with right upper extremity pain. While in hospital she was also complaining of severe diarrhea. She states she was having 5-6 loose watery bowel movements daily. She was seen and examined at bedside. Patient was sleeping but easily arousable. She has been tolerating regular diet. She denies any bowel movement through the night or this morning. She denied any melena or rectal bleeding. Objective - Vital Signs Vital signs: Vital Signs Temp 98.1 F 09/10/20 07:00 Pulse 91 09/10/20 07:00 Resp 17 09/10/20 07:00 BP 108/66 09/10/20 07:00 Pulse Ox 98 09/10/20 07:00 Intake & Output 09/09/20 09/10/20 09/10/20 18:59 06:59 18:59 Intake Total 240 600 Balance 240 600 Weight 88.405 kg Intake: Oral 240 600 Other: Voiding Method Toilet Toilet Toilet # Voids 1 1 # Bowel Movements 3 - Exam General appearance: The patient is alert, oriented, in no acute distress. HET: Head is normocephalic and atraumatic. Conjunctiva pink. Sclera anicteric. Neck: Supple without lymphadenopathy. Abdomen: Soft, diffuse abdominal pain with palpation, nondistended with bowel sounds. No guarding or rigidity. Extremities: Normal skin color and turgor. No pedal edema Neurological: No focal deficits. Alert and oriented 3. - Labs CBC & Chem 7: 09/09/20 15:04 09/09/20 15:04 Labs: Abnormal Lab Results - Last 24 Hours (Table) 09/09/20 09/09/20 09/09/20 Range/Units 11:39 15:04 15:04 RBC 3.40 L (3.80-5.40) m/uL Hgb 10.2 L (11.4-16.0) gm/dL Hct 31.9 L (34.0-46.0) % RDW 16.3 H (11.5-15.5) % Lymphocytes # 0.6 L (1.0-4.8) k/uL Chloride 110 H (96-109) mmol/L Carbon Dioxide 18.3 L (21.6-31.8) mmol/L Anion Gap 15.70 H (4.00-12.00) mmol/L BUN 62.0 H (9.0-27.0) mg/dL Creatinine 4.5 H (0.6-1.5) mg/dL Est GFR (CKD-EPI)AfAm 12.2 L (60.0-200.0) Est GFR (CKD-EPI)NonAf 10.5 L (60.0-200.0) Glucose 176 H (70-110) mg/dL POC Glucose (mg/dL) 332 H (75-99) mg/dL Calcium 8.2 L (8.7-10.3) mg/dL Total Bilirubin 2.5 H (0.2-1.2) mg/dL AST 46 H (13-35) U/L ALT 48 H (8-44) U/L Alkaline Phosphatase 880 H (41-126) U/L Total Protein 6.0 L (6.2-8.2) g/dL Albumin 3.20 L (3.80-4.90) g/dL Albumin/Globulin Ratio 1.14 L (1.60-3.17) g/dL 09/09/20 09/09/20 Range/Units 16:41 20:02 RBC (3.80-5.40) m/uL Hgb (11.4-16.0) gm/dL Hct (34.0-46.0) % RDW (11.5-15.5) % Lymphocytes # (1.0-4.8) k/uL Chloride (96-109) mmol/L Carbon Dioxide (21.6-31.8) mmol/L Anion Gap (4.00-12.00) mmol/L BUN (9.0-27.0) mg/dL Creatinine (0.6-1.5) mg/dL Est GFR (CKD-EPI)AfAm (60.0-200.0) Est GFR (CKD-EPI)NonAf (60.0-200.0) Glucose (70-110) mg/dL POC Glucose (mg/dL) 113 H 127 H (75-99) mg/dL Calcium (8.7-10.3) mg/dL Total Bilirubin (0.2-1.2) mg/dL AST (13-35) U/L ALT (8-44) U/L Alkaline Phosphatase (41-126) U/L Total Protein (6.2-8.2) g/dL Albumin (3.80-4.90) g/dL Albumin/Globulin Ratio (1.60-3.17) g/dL Microbiology - Last 24 Hours (Table) 09/07/20 17:26 Stool Culture - Preliminary Stool Assessment and Plan (1) Diarrhea Narrative/Plan: Diarrhea for the last 2 weeks duration. Stool studies so far been negative. Currently on Bentyl as well as Questran with no help. Last colonoscopy more than 10 years ago. Patient is scheduled for colonoscopy tomorrow. Current Visit: Yes Status: Acute Code(s): R19.7 - DIARRHEA, UNSPECIFIED SNOMED Code(s): 61626609 (2) Abdominal pain Current Visit: No Status: Acute Code(s): R10.9 - UNSPECIFIED ABDOMINAL PAIN SNOMED Code(s): 06594902 (3) Elevated liver enzymes Narrative/Plan: Elevated LFTs and mild jaundice status post liver biopsy 1 month ago that showed chronic venous outflow obstruction Current Visit: No Status: Acute Code(s): R74.8 - ABNORMAL LEVELS OF OTHER SERUM ENZYMES SNOMED Code(s): 910024297 (4) ESRD (end stage renal disease) on dialysis Current Visit: Yes Status: Acute Code(s): N18.6 - END STAGE RENAL DISEASE; Z99.2 - DEPENDENCE ON RENAL DIALYSIS SNOMED Code(s): 127470120 (5) Diabetes Narrative/Plan: Long-standing history of diabetes mellitus Current Visit: No Status: Acute Code(s): E11.9 - TYPE 2 DIABETES MELLITUS WITHOUT COMPLICATIONS SNOMED Code(s): 65515153 Plan: 1. Supportive care 2. Clear liquid diet today, nothing by mouth after midnight 3. Patient scheduled for colonoscopy tomorrow 4. Bowel prep this evening 5. May continue with Questran and Bentyl as needed, hold Questran for colonos copy. He will continue to follow. The impression and plan of care has been dictated as directed. I performed a history and examination of this patient, discussed the same with the dictator. I agree with the dictator's note ,documented as a scribe. Any additional findings or plans will be noted.
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
[2020-09-10 16:23] LABS: Glucose,Whole Blood 70 mg/dL (75-99)
[2020-09-10] MEDS ORDERED: PEG 3350-NA SULF,BICARB,CL/KCL 4,000 ML BOTTLE PO ONE (17:00)
[2020-09-10 20:26] LABS: Glucose,Whole Blood 110 mg/dL (75-99)
[2020-09-10 20:44] LABS: Hepatitis B Surface AB- Quant 3.5 mIU/mL; Hepatitis B Surface Antibody Non-Reactive (Non-Reactive); Hepatitis B Surface Antigen Non-Reactive (Non-Reactive)
--- NOTE | 2020-09-11 03:26 | PN ---
PROGRESS NOTE An female with right-sided leg weakness, right-sided arm weakness. Neurology has evaluated. At this time, she continues to have diarrhea. She is going to get EGD and colonoscopy by Dr. Otto tomorrow. Dialysis per Dr. Downs. CARDIOVASCULAR: S1, S2. LUNGS: . GI: Soft, increased bowel sounds. HEMATOLOGY: Negative Homans. PSYCH: Fair mood and affect. ASSESSMENT: 1. Chronic diarrhea. 2. End-stage renal disease. EGD, colonoscopy. Right arm difficulty with ambulation and movement. Prognosis guarded. Wait for Neurology recommendations. MMODL / IJN: [id number] /
[2020-09-11] MEDS: HEPARIN SODIUM,PORCINE 5,000 UNIT/ML 1 ML VIAL SQ SCH ×3 (03:50→20:37)
[2020-09-11] MEDS ORDERED: LIDOCAINE 1% (10MG/ML) FOR IV START INTRADERMA PRN (07:19)
[2020-09-11] MEDS ORDERED: LACTATED RINGERS 1,000 ML IV SCH (07:19)
[2020-09-11 07:48] LABS: Glucose,Whole Blood 82 mg/dL (75-99)
[2020-09-11] MEDS: INSULIN ASPART (NovoLOG) 100 UNIT/ML VIAL SQ SCH ×4 (07:51→22:00)
[2020-09-11] MEDS ORDERED: LACTATED RINGERS 1,000 ML IV ONE (08:00)
[2020-09-11] MEDS ORDERED: PROPOFOL 10 MG/ML 20 ML VIAL IV ONE (08:02)
--- NOTE | 2020-09-11 08:40 | P.PCN ---
Date of Procedure: 09/11/20 Description of Procedure: BRIEF HISTORY: 50-year-old -[place] female who was admitted to the hospital with right upper extremity pain. While in hospital she was also complaining of severe diarrhea. She states she was having 5-6 loose watery bowel movements daily. She was seen and examined at bedside. Patient was sleeping but easily arousable. She has been tolerating regular diet. She denies any bowel movement through the night or this morning. She denied any melena or rectal bleeding. PROCEDURE PERFORMED: Colonoscopy with biopsy. PREOPERATIVE DIAGNOSIS: Diarrhea, altered bowel function. ESTIMATED BLOOD LOSS: Minimal. IV sedation per Anesthesia. PROCEDURE: After informed consent was obtained, the patient, was brought into the endoscopy unit. IV sedation was administered by Anesthesia under continuous monitoring. Digital rectal examination was normal. Initially the Olympus CF-190 flexible video colonoscope was then inserted in the rectum, gradually advanced into the cecum without any difficulty. Careful examination was performed as the scope was gradually being withdrawn. Ileocecal valve and the appendiceal orifice were visualized and appeared normal. Prep was fair with a large amount of liquid stool throughout the colon with some solid components . Mucosa of the cecum, ascending colon, transverse colon, descending colon, sigmoid colon, and rectumwhich were visualized and appeared normal with biopsies of the right and left colon taken to rule out microscopic colitis. There was however no evidence of inflammation or other abnormalities grossly on the visualized tissue. Multiple small and large mouth diverticula noted in the sigmoid colon. Retroflexion was performed in the rectum and no lesions were seen. The patient tolerated the procedure well. IMPRESSION: Moderate sigmoid diverticulosis. Fair prep. Normal-appearing colon from rectum to cecum, however complete visualization of the mucosa prohibited by fair prep, biopsies of the right and left colon taken in the setting of altered bowel function. RECOMMENDATIONS: Findings of this examination were discussed with the patient. Okay to resume renal diet. Okay to resume medications. Await pathology from biopsies. Patient can repeat screening colonoscopy in the outpatient setting with 2 day prep. No plan for further endoscopy at this time.
[2020-09-11] MEDS: METOPROLOL SUCCINATE (ER) 50 MG TAB.ER.24H PO SCH (09:00)
[2020-09-11] MEDS: hydrALAZINE HCL 50 MG TAB PO SCH ×3 (09:01→20:33)
[2020-09-11] MEDS: amLODIPine 5 MG TAB PO SCH ×2 (09:03→20:34)
[2020-09-11] MEDS: LORATADINE 10 MG TAB PO SCH (09:12)
[2020-09-11] MEDS: CALCIUM ACETATE 667 MG TAB PO SCH ×2 (09:12→16:24)
[2020-09-11] MEDS: HYDROcodone/APAP 5-325MG 1 EACH TAB PO PRN ×2 (09:12→20:33)
[2020-09-11] MEDS: DICYCLOMINE 20 MG TAB PO SCH ×4 (09:12→20:34)
[2020-09-11] MEDS: CLOPIDOGREL 75 MG TAB PO SCH (09:12)
[2020-09-11] MEDS: PREGABALIN 75 MG CAP PO SCH ×2 (09:12→20:34)
[2020-09-11] MEDS: REPAGLINIDE 1 MG TAB PO SCH ×2 (09:14→16:24)
[2020-09-11] MEDS: METOCLOPRAMIDE 5 MG TAB PO SCH ×3 (09:14→16:24)
[2020-09-11] MEDS: hydrOXYzine HCL 10 MG TAB PO SCH ×3 (09:14→22:00)
[2020-09-11] MEDS: diphenhydrAMINE 2% CREAM 28.4 GM TUBE TOPICAL SCH ×2 (09:15→20:34)
[2020-09-11] MEDS: FOLIC ACID-VIT B COMPLEX-VIT C 1 CAP PO SCH (09:15)
--- NOTE | 2020-09-11 10:08 | XR ---
EXAMINATION TYPE: XR elbow complete RT, XR forearm RT DATE OF EXAM: 09/11/2020 CLINICAL HISTORY: Pain. TECHNIQUE: Frontal, lateral and oblique images of the right elbow are obtained. 2 views right forear m. COMPARISON: None FINDINGS: There is no acute fracture/dislocation evident in the right elbow. No abnormal fat pad si gns are seen. Mild to moderate diffuse subcutaneous edema. Mild vascular arterial calcification. 2 views right forearm show no acute fracture or dislocation. Visualized right wrist joint appears wit hin normal limits. Lateral view is suboptimal due to patient noncooperation. Mild to moderate diffuse subcutaneous edema. IMPRESSION: As above.
--- NOTE | 2020-09-11 10:10 | XR ---
EXAMINATION TYPE: XR shoulder complete RT DATE OF EXAM: 09/11/2020 CLINICAL HISTORY: Pain. TECHNIQUE: Three views of the right shoulder are obtained. COMPARISON: Prior chest x-ray 4 days ago. FINDINGS: There is no acute fracture/dislocation evident in the right shoulder. The acromioclavicul ar joint appears within normal limits. Distal acromion morphology unremarkable. Overlying clothing o r blanket material noted. Glenohumeral joint shows mild to moderate narrowing. The visualized ribs ar e intact. Partial visualization of right subclavian Mediport catheter along with sternal wires and me diastinal clips. IMPRESSION: As above.
--- NOTE | 2020-09-11 11:02 | P.PN ---
Subjective Patient is seen in follow-up for acute end-stage renal disease. She is maintained on hemodialysis on Thursday schedule. Tolerating oral intake. Does admit to loose bowel movements. No vomiting. Just returned from colonoscopy. Vital signs are stable. General: The patient appeared well nourished and normally developed. HEENT: Head exam is unremarkable. Neck is without jugular venous distension. LUNGS: Breath sounds decreased. HEART: Rate and Rhythm are regular. ABDOMEN: Soft, nondistended. EXTREMITITES: 1+ edema. Objective - Vital Signs Vital signs: Vital Signs Temp 99.0 F 09/11/20 07:51 Pulse 79 09/11/20 07:51 Resp 12 09/11/20 07:51 BP 93/54 09/11/20 07:51 Pulse Ox 96 09/11/20 07:51 Intake & Output 09/10/20 09/11/20 09/11/20 18:59 06:59 18:59 Intake Total 400 250 Output Total 4000 Balance -3600 250 Weight 88.2 kg Intake: IV 250 Oral 400 Output: Hemodialysis 4000 Other: Voiding Method Toilet Toilet # Bowel Movements 1 - Labs CBC & Chem 7: 09/09/20 15:04 09/09/20 15:04 Labs: Abnormal Lab Results - Last 24 Hours (Table) 09/09/20 09/10/20 09/10/20 Range/Units 15:04 11:26 16:21 POC Glucose (mg/dL) 171 H 70 L (75-99) mg/dL Hemoglobin A1c 8.0 H (4.0-6.0) % 09/10/20 Range/Units 20:24 POC Glucose (mg/dL) 110 H (75-99) mg/dL Hemoglobin A1c (4.0-6.0) % Microbiology - Last 24 Hours (Table) 09/07/20 17:26 Stool Culture - Final Stool Assessment and Plan Plan: Assessment: 1. End-stage renal disease maintained on hemodialysis on Thursday schedule. 2. Hypertension with chronic kidney disease. Blood pressure on the lower side. 3. Chronic kidney disease mineral bone disease maintained on PhosLo. 4. Diarrhea. C. diff negative. Maintain on Questran. Colonoscopy revealed diverticulosis but was a poor prep. 5. Diabetes mellitus. 6. Metabolic acidosis secondary to GI losses. Improved. Plan: Hemodialysis tomorrow. Hold antihypertensives for systolic blood pressure less than 120.
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
[2020-09-11 12:47] LABS: Glucose,Whole Blood 232 mg/dL (75-99)
[2020-09-11 15:48] LABS: Appearance,Urine Cloudy (Clear); Bilirubin,Urine 1+ (Negative); Blood,Urine Moderate (Negative); Color,Urine Dark Yellow; Glucose,Urine (UA) 1+ (Negative); Ketones,Urine Negative (Negative); Leukocyte Esterase,Urine Negative (Negative); Nitrite,Urine Negative (Negative); Protein,Urine 3+ (Negative); Specific Gravity,Urine 1.021 (1.001-1.035); Urobilinogen,Urine <2.0 mg/dL (<2.0)
[2020-09-11 16:01] LABS: RBC,Urine 5 /hpf (0-5); Squamous Epithelial Cell,Urine 3 /hpf (0-4); WBC,Urine 20 /hpf (0-5)
[2020-09-11 16:02] LABS: Amorphous Sediment,Urine Few /hpf; Bacteria,Urine Few /hpf; Granular Casts,Urine 5 /lpf (0); Hyaline Casts,Urine 5 /lpf (0-2); Waxy Casts,Urine 1 /lpf (0)
[2020-09-11 16:03] LABS: Mucus,Urine Few /hpf
[2020-09-11 16:47] LABS: Glucose,Whole Blood 143 mg/dL (75-99)
--- NOTE | 2020-09-11 17:03 | P.PN ---
Subjective Progress Note Date: 09/11/20 Patient was seen for a follow-up. Patient continues to be in significant pain, mainly pointing to the right elbow upper forearm region. Any movement hurts. Does not complain of right shoulder pain as much today. Patient had undergone colonoscopy for diarrhea. Patient also seen by orthopedic surgery, and x-rays of the right shoulder elbow and forearm were performed. X-ray of the right shoulder reveal no fracture/dislocation. Glenohumeral joint shows mild to moderate narrowing. The visualized ribs are intact. X-ray of the right elbow showed no fracture. Mild to moderate diffuse subcutaneous edema. Objective - Vital Signs Vital signs: Vital Signs Temp 98.2 F 09/11/20 12:13 Pulse 88 09/11/20 12:13 Resp 16 09/11/20 12:13 BP 124/88 09/11/20 12:13 Pulse Ox 96 09/11/20 12:13 Intake & Output 09/10/20 09/11/20 09/11/20 18:59 06:59 18:59 Intake Total 400 250 Output Total 4000 Balance -3600 250 Weight 88.2 kg Intake: IV 250 Oral 400 Output: Hemodialysis 4000 Other: Voiding Method Toilet Toilet # Voids 4 # Bowel Movements 1 - Exam Examination shows normal mental status, appears slightly edgy because of pain. Muscle strength normal in the other 3 extremities. In the right upper limb, deltoid appears better, but a lot of guarding because of elbow pain. [place] appears slightly weak, but partly from guarding. - Labs CBC & Chem 7: 09/09/20 15:04 09/09/20 15:04 Labs: Abnormal Lab Results - Last 24 Hours (Table) 09/10/20 09/11/20 09/11/20 Range/Units 20:24 12:46 14:15 POC Glucose (mg/dL) 110 H 232 H (75-99) mg/dL Urine Appearance Cloudy H (Clear) Urine Protein 3+ H (Negative) Urine Glucose (UA) 1+ H (Negative) Urine Blood Moderate H (Negative) Urine Bilirubin 1+ H (Negative) Urine WBC 20 H (0-5) /hpf Amorphous Sediment Few H (None) /hpf Urine Bacteria Few H (None) /hpf Hyaline Casts 5 H (0-2) /lpf Urine Mucus Few H (None) /hpf 09/11/20 Range/Units 16:46 POC Glucose (mg/dL) 143 H (75-99) mg/dL Urine Appearance (Clear) Urine Protein (Negative) Urine Glucose (UA) (Negative) Urine Blood (Negative) Urine Bilirubin (Negative) Urine WBC (0-5) /hpf Amorphous Sediment (None) /hpf Urine Bacteria (None) /hpf Hyaline Casts (0-2) /lpf Urine Mucus (None) /hpf Microbiology - Last 24 Hours (Table) 09/07/20 17:26 Stool Culture - Final Stool Assessment and Plan Assessment: * Right upper extremity pain, weakness (possible partly due to guarding), and significant swelling, in the right elbow and forearm region > shoulder upper arm. Venous ultrasound negative for DVT on 08/30/2020. Neurological examination revealed symmetric reflexes, normal sensations. Doubt primary neurological process, although brachial plexopathy related to diabetes is in the differential. * Diabetes not well controlled * End-stage renal disease on hemodialysis Plan: * MRI of the forearm and shoulder were initiated but canceled, as the staff was not able to get clearance for her MediPort. t * Discussed with Chika Almonte PA-C, who will review the x-rays with orthopedic surgeon, and may consider MRI of the elbow. However will require clearance regarding her MediPort. No signs of infection with normal white cells and temperature. * ESR, uric acid still pending. * WINSOME and rheumatoid factor are normal recently. * Optimize control of diabetes to target hemoglobin A1c <7.0.
[2020-09-11 21:41] LABS: Glucose,Whole Blood 228 mg/dL (75-99)
--- NOTE | 2020-09-11 23:29 | PN ---
PROGRESS NOTE Apparently this patient had an EGD and colonoscopy which were negative today. We will probably start her on some Lomotil for diarrhea. She says she is having a workup from Orthopedics and Neurology for her right arm weakness, but she cannot do an MRI due to possible metal in her body. Lungs are clear. CARDIOVASCULAR: S1, S2. Abdomen is soft. Hematology: Negative Homans. ASSESSMENT: 1. Right arm partial palsy and edema. Negative for DVT. Await orthopedic and vascular opinions, neurology opinion. 2. Chronic diarrhea. Will start Lomotil and wait for GI recommendations. Due to a negative scope, she will be able to be discharged home tomorrow. MMODL / IJN: [id number] /
[2020-09-12] MEDS: HEPARIN SODIUM,PORCINE 5,000 UNIT/ML 1 ML VIAL SQ SCH ×3 (04:44→21:41)
[2020-09-12] MEDS: HYDROcodone/APAP 5-325MG 1 EACH TAB PO PRN (05:01)
[2020-09-12 06:56] LABS: Glucose,Whole Blood 187 mg/dL (75-99)
[2020-09-12] MEDS: CALCIUM ACETATE 667 MG TAB PO SCH ×2 (07:32→16:23)
[2020-09-12] MEDS: METOCLOPRAMIDE 5 MG TAB PO SCH ×3 (07:33→16:48)
[2020-09-12] MEDS: INSULIN ASPART (NovoLOG) 100 UNIT/ML VIAL SQ SCH ×4 (07:34→21:41)
[2020-09-12] MEDS: REPAGLINIDE 1 MG TAB PO SCH ×2 (07:36→16:48)
--- NOTE | 2020-09-12 08:17 | P.PN ---
Subjective Progress Note Date: 09/12/20 This is a 50-year-old female who is admitted for management of nausea, vomiting and diarrhea. Patient has a Mediport on the right side for dialysis. Orthopedics is consulted due to right upper extremity pain. Patient reports pain with rotation of the forearm this morning. Patient denies any new complain ts today. Objective - Vital Signs Vital signs: Vital Signs Temp 98.7 F 09/12/20 06:36 Pulse 95 09/12/20 06:36 Resp 18 09/12/20 06:36 BP 141/80 09/12/20 06:36 Pulse Ox 98 09/12/20 06:36 Intake & Output 09/11/20 09/12/20 09/12/20 18:59 06:59 18:59 Intake Total 250 Balance 250 Intake: IV 250 Other: Voiding Method Toilet Toilet # Voids 4 - Exam Vital signs are stable. Patient is in no acute distress and is alert and oriented 3. Patient is resting her head on her right hand with the right elbow in flexion. Patient does actively move the right upper extremity today. There is some pain with pronation and supination of the right forearm. There is no tenderness to palpation. Compartments are soft. Sensation intact. The right upper extremity is warm and well perfused. Neurovascular status and circulatory status are intact. - Labs CBC & Chem 7: 09/09/20 15:04 09/09/20 15:04 Labs: Abnormal Lab Results - Last 24 Hours (Table) 09/11/20 09/11/20 09/11/20 Range/Units 12:46 14:15 16:46 POC Glucose (mg/dL) 232 H 143 H (75-99) mg/dL Urine Appearance Cloudy H (Clear) Urine Protein 3+ H (Negative) Urine Glucose (UA) 1+ H (Negative) Urine Blood Moderate H (Negative) Urine Bilirubin 1+ H (Negative) Urine WBC 20 H (0-5) /hpf Amorphous Sediment Few H (None) /hpf Urine Bacteria Few H (None) /hpf Hyaline Casts 5 H (0-2) /lpf Urine Mucus Few H (None) /hpf 09/11/20 09/12/20 Range/Units 21:40 06:54 POC Glucose (mg/dL) 228 H 187 H (75-99) mg/dL Urine Appearance (Clear) Urine Protein (Negative) Urine Glucose (UA) (Negative) Urine Blood (Negative) Urine Bilirubin (Negative) Urine WBC (0-5) /hpf Amorphous Sediment (None) /hpf Urine Bacteria (None) /hpf Hyaline Casts (0-2) /lpf Urine Mucus (None) /hpf Microbiology - Last 24 Hours (Table) 09/11/20 14:15 Urine Culture - Preliminary Urine,Clean Catch 09/07/20 17:26 Stool Culture - Final Stool Assessment and Plan (1) Right shoulder pain Current Visit: Yes Status: Acute Code(s): M25.511 - PAIN IN RIGHT SHOULDER SNOMED Code(s): 71390371 (2) Right elbow pain Current Visit: Yes Status: Acute Code(s): M25.521 - PAIN IN RIGHT ELBOW SNOMED Code(s): 57820489 (3) ESRD (end stage renal disease) on dialysis Current Visit: Yes Status: Acute Code(s): N18.6 - END STAGE RENAL DISEASE; Z99.2 - DEPENDENCE ON RENAL DIALYSIS SNOMED Code(s): 340434199 (4) Nausea and vomiting Current Visit: Yes Status: Acute Code(s): R11.2 - NAUSEA WITH VOMITING, UNSPECIFIED SNOMED Code(s): 99868596 Plan: 1. X-rays of the right shoulder, elbow and forearm are reviewed and are negative for any fracture or dislocation. 2. Recommend physical therapy for the right upper extremity. 3. Patient is afebrile and white blood cell count is within normal limits. Low suspicion for any infection. 4. We will sign off and re-evaluate on an as needed basis.
[2020-09-12 08:42] LABS: Anisocytosis Slight; HCT 29.3 % (34.0-46.0); HGB 9.8 gm/dL (11.4-16.0); MCH 31.4 pg (25.0-35.0); MCHC 33.4 g/dL (31.0-37.0); Platelet Count 178 k/uL (150-450); RBC 3.12 m/uL (3.80-5.40); WBC 7.1 k/uL (3.8-10.6)
[2020-09-12] MEDS ORDERED: MAG HYDROX/AL HYDROX/SIMETH 30 ML CUP PO PRN (09:00)
[2020-09-12 09:17] LABS: African American GFR (CKD) 17 (>60 ml/min/1.73 sqM); Anion Gap 8 mmol/L; Blood Urea Nitrogen 46 mg/dL (7-17); Calcium 8.3 mg/dL (8.4-10.2); Carbon Dioxide 24 mmol/L (22-30); Chloride 103 mmol/L (98-107); Glucose 159 mg/dL (74-99); Non-African American GFR(CKD) 15 (>60 ml/min/1.73 sqM); Potassium 4.6 mmol/L (3.5-5.1); Sodium 135 mmol/L (137-145)
[2020-09-12] MEDS: PANTOPRAZOLE 40 MG TABLET PO SCH (09:20)
[2020-09-12] MEDS: diphenhydrAMINE 2% CREAM 28.4 GM TUBE TOPICAL SCH ×2 (09:21→21:41)
--- NOTE | 2020-09-12 09:49 | P.PN ---
Subjective Patient is seen in follow-up for acute end-stage renal disease. She is maintained on hemodialysis on Thursday schedule. Tolerating dialysis well. Tolerating oral intake. No vomiting. Complaining of heartburn this morning. Vital signs are stable. General: The patient appeared well nourished and normally developed. HEENT: Head exam is unremarkable. Neck is without jugular venous distension. LUNGS: Breath sounds decreased. HEART: Rate and Rhythm are regular. ABDOMEN: Soft, nondistended. EXTREMITITES: 1+ edema. Objective - Vital Signs Vital signs: Vital Signs Temp 98.7 F 09/12/20 06:36 Pulse 95 09/12/20 06:36 Resp 18 09/12/20 06:36 BP 141/80 09/12/20 06:36 Pulse Ox 98 09/12/20 06:36 Intake & Output 09/11/20 09/12/20 09/12/20 18:59 06:59 18:59 Intake Total 250 Balance 250 Intake: IV 250 Other: Voiding Method Toilet Toilet Toilet # Voids 4 - Labs CBC & Chem 7: 09/12/20 08:20 09/12/20 08:20 Labs: Abnormal Lab Results - Last 24 Hours (Table) 09/11/20 09/11/20 09/11/20 Range/Units 12:46 14:15 16:46 RBC (3.80-5.40) m/uL Hgb (11.4-16.0) gm/dL Hct (34.0-46.0) % RDW (11.5-15.5) % Sodium (137-145) mmol/L BUN (7-17) mg/dL Creatinine (0.52-1.04) mg/dL Glucose (74-99) mg/dL POC Glucose (mg/dL) 232 H 143 H (75-99) mg/dL Calcium (8.4-10.2) mg/dL Urine Appearance Cloudy H (Clear) Urine Protein 3+ H (Negative) Urine Glucose (UA) 1+ H (Negative) Urine Blood Moderate H (Negative) Urine Bilirubin 1+ H (Negative) Urine WBC 20 H (0-5) /hpf Amorphous Sediment Few H (None) /hpf Urine Bacteria Few H (None) /hpf Hyaline Casts 5 H (0-2) /lpf Urine Mucus Few H (None) /hpf 09/11/20 09/12/20 09/12/20 Range/Units 21:40 06:54 08:20 RBC 3.12 L (3.80-5.40) m/uL Hgb 9.8 L (11.4-16.0) gm/dL Hct 29.3 L (34.0-46.0) % RDW 16.0 H (11.5-15.5) % Sodium (137-145) mmol/L BUN (7-17) mg/dL Creatinine (0.52-1.04) mg/dL Glucose (74-99) mg/dL POC Glucose (mg/dL) 228 H 187 H (75-99) mg/dL Calcium (8.4-10.2) mg/dL Urine Appearance (Clear) Urine Protein (Negative) Urine Glucose (UA) (Negative) Urine Blood (Negative) Urine Bilirubin (Negative) Urine WBC (0-5) /hpf Amorphous Sediment (None) /hpf Urine Bacteria (None) /hpf Hyaline Casts (0-2) /lpf Urine Mucus (None) /hpf 09/12/20 Range/Units 08:20 RBC (3.80-5.40) m/uL Hgb (11.4-16.0) gm/dL Hct (34.0-46.0) % RDW (11.5-15.5) % Sodium 135 L (137-145) mmol/L BUN 46 H (7-17) mg/dL Creatinine 3.42 H (0.52-1.04) mg/dL Glucose 159 H (74-99) mg/dL POC Glucose (mg/dL) (75-99) mg/dL Calcium 8.3 L (8.4-10.2) mg/dL Urine Appearance (Clear) Urine Protein (Negative) Urine Glucose (UA) (Negative) Urine Blood (Negative) Urine Bilirubin (Negative) Urine WBC (0-5) /hpf Amorphous Sediment (None) /hpf Urine Bacteria (None) /hpf Hyaline Casts (0-2) /lpf Urine Mucus (None) /hpf Microbiology - Last 24 Hours (Table) 09/11/20 14:15 Urine Culture - Preliminary Urine,Clean Catch 09/07/20 17:26 Stool Culture - Final Stool Assessment and Plan Plan: Assessment: 1. End-stage renal disease maintained on hemodialysis on Thursday schedule. 2. Hypertension with chronic kidney disease. Stable. 3. Chronic kidney disease mineral bone disease maintained on PhosLo. 4. Diarrhea. C. diff negative. Maintain on Questran. Colonoscopy revealed diverticulosis but was a poor prep. 5. Diabetes mellitus. 6. Metabolic acidosis secondary to GI losses. Improved. Plan: Currently seen while undergoing hemodialysis. Next treatment on Thursday. Hold antihypertensives for systolic blood pressure less than 120.
[2020-09-12 11:12] LABS: Glucose,Whole Blood 131 mg/dL (75-99)
[2020-09-12] MEDS: HYDROcodone/APAP 7.5-325MG 1 EACH TAB PO PRN ×2 (12:02→21:19)
[2020-09-12] MEDS: amLODIPine 5 MG TAB PO SCH ×2 (12:05→21:16)
[2020-09-12] MEDS: DICYCLOMINE 20 MG TAB PO SCH ×4 (12:06→21:19)
[2020-09-12] MEDS: CLOPIDOGREL 75 MG TAB PO SCH (12:06)
[2020-09-12] MEDS: METOPROLOL SUCCINATE (ER) 50 MG TAB.ER.24H PO SCH (12:08)
[2020-09-12] MEDS: hydrOXYzine HCL 10 MG TAB PO SCH ×3 (12:08→21:16)
--- NOTE | 2020-09-12 12:08 | P.PN ---
Subjective Progress Note Date: 09/12/20 Principal diagnosis: Severe diarrhea 48-year-old -[place] female who was admitted to the hospital with right upper extremity pain. While in hospital she was also complaining of severe diarrhea. She states she was having 5-6 loose watery bowel movements daily. She underwent a colonoscopy yesterday which showed moderate sigmoid diverticulosis. There was a normal appearing colon from rectum to cecum, however complete visualization of the mucosa was prohibited by a fair prep. Biopsies were taken. She was seen and examined at bedside. She is receiving hemodialysis today. Patient was sleeping but easily arousable. She has been tolerating regular diet. States she still had a loose bowel movement through the night. She denied any melena or rectal bleeding. Objective - Vital Signs Vital signs: Vital Signs Temp 98.7 F 09/12/20 06:36 Pulse 95 09/12/20 06:36 Resp 18 09/12/20 06:36 BP 141/80 09/12/20 06:36 Pulse Ox 98 09/12/20 06:36 Intake & Output 09/11/20 09/12/20 09/12/20 18:59 06:59 18:59 Intake Total 250 Balance 250 Intake: IV 250 Other: Voiding Method Toilet Toilet Toilet # Voids 4 - Exam General appearance: The patient is alert, oriented, in no acute distress. HET: Head is normocephalic and atraumatic. Conjunctiva pink. Sclera anicteric. Neck: Supple without lymphadenopathy. Abdomen: Soft, diffuse abdominal pain with palpation, nondistended with bowel sounds. No guarding or rigidity. Extremities: Normal skin color and turgor. No pedal edema Neurological: No focal deficits. Alert and oriented 3. - Labs CBC & Chem 7: 09/12/20 08:20 09/12/20 08:20 Labs: Abnormal Lab Results - Last 24 Hours (Table) 09/11/20 09/11/20 09/11/20 Range/Units 12:46 14:15 16:46 RBC (3.80-5.40) m/uL Hgb (11.4-16.0) gm/dL Hct (34.0-46.0) % RDW (11.5-15.5) % Sodium (137-145) mmol/L BUN (7-17) mg/dL Creatinine (0.52-1.04) mg/dL Glucose (74-99) mg/dL POC Glucose (mg/dL) 232 H 143 H (75-99) mg/dL Calcium (8.4-10.2) mg/dL Urine Appearance Cloudy H (Clear) Urine Protein 3+ H (Negative) Urine Glucose (UA) 1+ H (Negative) Urine Blood Moderate H (Negative) Urine Bilirubin 1+ H (Negative) Urine WBC 20 H (0-5) /hpf Amorphous Sediment Few H (None) /hpf Urine Bacteria Few H (None) /hpf Hyaline Casts 5 H (0-2) /lpf Urine Mucus Few H (None) /hpf 09/11/20 09/12/20 09/12/20 Range/Units 21:40 06:54 08:20 RBC 3.12 L (3.80-5.40) m/uL Hgb 9.8 L (11.4-16.0) gm/dL Hct 29.3 L (34.0-46.0) % RDW 16.0 H (11.5-15.5) % Sodium (137-145) mmol/L BUN (7-17) mg/dL Creatinine (0.52-1.04) mg/dL Glucose (74-99) mg/dL POC Glucose (mg/dL) 228 H 187 H (75-99) mg/dL Calcium (8.4-10.2) mg/dL Urine Appearance (Clear) Urine Protein (Negative) Urine Glucose (UA) (Negative) Urine Blood (Negative) Urine Bilirubin (Negative) Urine WBC (0-5) /hpf Amorphous Sediment (None) /hpf Urine Bacteria (None) /hpf Hyaline Casts (0-2) /lpf Urine Mucus (None) /hpf 09/12/20 09/12/20 Range/Units 08:20 11:11 RBC (3.80-5.40) m/uL Hgb (11.4-16.0) gm/dL Hct (34.0-46.0) % RDW (11.5-15.5) % Sodium 135 L (137-145) mmol/L BUN 46 H (7-17) mg/dL Creatinine 3.42 H (0.52-1.04) mg/dL Glucose 159 H (74-99) mg/dL POC Glucose (mg/dL) 131 H (75-99) mg/dL Calcium 8.3 L (8.4-10.2) mg/dL Urine Appearance (Clear) Urine Protein (Negative) Urine Glucose (UA) (Negative) Urine Blood (Negative) Urine Bilirubin (Negative) Urine WBC (0-5) /hpf Amorphous Sediment (None) /hpf Urine Bacteria (None) /hpf Hyaline Casts (0-2) /lpf Urine Mucus (None) /hpf Microbiology - Last 24 Hours (Table) 09/11/20 14:15 Urine Culture - Preliminary Urine,Clean Catch Assessment and Plan (1) Diarrhea Narrative/Plan: Diarrhea for the last 2 weeks duration. Stool studies so far been negative. Currently on Bentyl as well as Questran with no help. Last colonoscopy more than 10 years ago. Patient underwent colonoscopy that showed moderate sigmoid diverticulosis. There was normal appearing colon from rectum to cecum, however complete visualization of the mucosa was prohibited by a fair prep. The patient was instructed she may have a repeat outpatient colonoscopy done in the future with a 2 day prep. Current Visit: Yes Status: Acute Code(s): R19.7 - DIARRHEA, UNSPECIFIED SNOMED Code(s): 62282750 (2) Abdominal pain Current Visit: No Status: Acute Code(s): R10.9 - UNSPECIFIED ABDOMINAL PAIN SNOMED Code(s): 55450844 (3) Elevated liver enzymes Narrative/Plan: Elevated LFTs and mild jaundice status post liver biopsy 1 month ago that showed chronic venous outflow obstruction Current Visit: No Status: Acute Code(s): R74.8 - ABNORMAL LEVELS OF OTHER SERUM ENZYMES SNOMED Code(s): 933217075 (4) ESRD (end stage renal disease) on dialysis Current Visit: Yes Status: Acute Code(s): N18.6 - END STAGE RENAL DISEASE; Z99.2 - DEPENDENCE ON RENAL DIALYSIS SNOMED Code(s): 736052474 (5) Diabetes Narrative/Plan: Long-standing history of diabetes mellitus Current Visit: No Status: Acute Code(s): E11.9 - TYPE 2 DIABETES MELLITUS WITHOUT COMPLICATIONS SNOMED Code(s): 48785492 Plan: 1. Supportive care 2. History of carbohydrate diet 3. Status post colonoscopy 4. Lomotil as needed 5. May continue with Questran and Bentyl as needed We will sign off at this time. The patient was recommended to follow-up as an outpatient for colon biopsy results, we also discussed that she may have a repeat colonoscopy as an outpatient with a 2 day prep she chooses.. The impression and plan of care has been dictated as directed. I performed a history and examination of this patient, discussed the same with the dictator. I agree with the dictator's note ,documented as a scribe. Any additional findings or plans will be noted.
[2020-09-12] MEDS: LORATADINE 10 MG TAB PO SCH (12:09)
[2020-09-12] MEDS: PREGABALIN 75 MG CAP PO SCH ×2 (12:09→21:16)
[2020-09-12] MEDS: hydrALAZINE HCL 50 MG TAB PO SCH ×3 (12:11→21:19)
[2020-09-12] MEDS: FOLIC ACID-VIT B COMPLEX-VIT C 1 CAP PO SCH (12:12)
[2020-09-12] MEDS: DIPHENOX-ATROP 2.5-0.025 MG 1 EACH TAB PO PRN (12:43)
[2020-09-12] MEDS: diphenhydrAMINE 25 MG CAP PO PRN ×2 (13:06→23:57)
[2020-09-12 14:39] VITALS: RESP 16
[2020-09-12 16:32] LABS: Glucose,Whole Blood 139 mg/dL (75-99)
[2020-09-12] MEDS ORDERED: LORazepam 2 MG/ML INJ IV STA (16:36)
--- NOTE | 2020-09-12 16:45 | PN ---
PROGRESS NOTE A 51-year-old female who had right upper extremity pain and severe diarrhea. EGD and colonoscopy did not show anything, started Lomotil for possible chronic diarrhea. Orthopedic and neurologic workup is pending. Stool studies been negative. She failed Jacob Cortes. She has moderate sigmoid diverticulosis on colonoscopy. May possibly do an outpatient colonoscopy as an outpatient. Diabetes, better control needed. Compliance end-stage renal disease. Compliance needed. Chronic venous outflow obstruction on renal biopsy with elevated LFTs. Continue Questran and Bentyl, possibly follow up as an outpatient. MMODL / IJN: [id number] /
[2020-09-12] MEDS: CALCIUM CARBONATE 500 MG CHEWABLE PO PRN ×2 (16:49→23:57)
--- NOTE | 2020-09-12 16:57 | P.PN ---
Subjective Progress Note Date: 09/12/20 Patient was seen for a follow-up. Patient complains of diarrhea. Patient appears somewhat more comfortable today, but continues to complain of pain in the right elbow and upper half forearm region, rates 5-6/10. Patient appears better, as the swelling has improved, and is able to flex her elbow somewhat comfortably, but still with severe pain with supination. Any supination movement hurts. Does not complain of right shoulder pain as much today. Patient had undergone colonoscopy for diarrhea. Patient also seen by orthopedic surgery, and x-rays of the right shoulder elbow and forearm were performed. X-ray of the right shoulder reveal no fracture/dislocation. Glenohumeral joint shows mild to moderate narrowing. The visualized ribs are intact. X-ray of the right elbow showed no fracture. Mild to moderate diffuse subcutaneous edema. Objective - Vital Signs Vital signs: Vital Signs Temp 98.5 F 09/12/20 14:39 Pulse 80 09/12/20 14:39 Resp 16 09/12/20 14:39 BP 117/73 09/12/20 14:39 Pulse Ox 95 09/12/20 14:39 Intake & Output 09/11/20 09/12/20 09/12/20 18:59 06:59 18:59 Intake Total 250 Output Total 2500 Balance 250 -2500 Intake: IV 250 Output: Hemodialysis 2500 Other: Voiding Method Toilet Toilet Toilet # Voids 4 5 # Bowel Movements 1 - Exam Examination shows normal mental status. Muscle strength normal in the other 3 extremities. In the right upper limb, deltoid appears better, but a lot of g uarding because of elbow pain. Program Services Assistant appears slightly weak, but partly from guarding. Biceps 4+, triceps 5-with a lot of guarding. Patient cannot supinate. Sensations are equal. - Labs CBC & Chem 7: 09/12/20 08:20 09/12/20 08:20 Labs: Abnormal Lab Results - Last 24 Hours (Table) 09/11/20 09/12/20 09/12/20 Range/Units 21:40 06:54 08:20 RBC 3.12 L (3.80-5.40) m/uL Hgb 9.8 L (11.4-16.0) gm/dL Hct 29.3 L (34.0-46.0) % RDW 16.0 H (11.5-15.5) % Sodium (137-145) mmol/L BUN (7-17) mg/dL Creatinine (0.52-1.04) mg/dL Glucose (74-99) mg/dL POC Glucose (mg/dL) 228 H 187 H (75-99) mg/dL Calcium (8.4-10.2) mg/dL 09/12/20 09/12/20 09/12/20 Range/Units 08:20 11:11 16:31 RBC (3.80-5.40) m/uL Hgb (11.4-16.0) gm/dL Hct (34.0-46.0) % RDW (11.5-15.5) % Sodium 135 L (137-145) mmol/L BUN 46 H (7-17) mg/dL Creatinine 3.42 H (0.52-1.04) mg/dL Glucose 159 H (74-99) mg/dL POC Glucose (mg/dL) 131 H 139 H (75-99) mg/dL Calcium 8.3 L (8.4-10.2) mg/dL Microbiology - Last 24 Hours (Table) 09/11/20 14:15 Urine Culture - Preliminary Urine,Clean Catch Assessment and Plan Assessment: * Right upper extremity pain, weakness (possible partly due to guarding), and significant swelling, in the right elbow and forearm region > shoulder upper arm. Venous ultrasound negative for DVT on 08/30/2020. Neurological examination revealed symmetric reflexes, normal sensations. Doubt primary neurological process. Doubt brachial plexopathy. * Diabetes not well controlled * End-stage renal disease on hemodialysis Plan: * MRI of the right forearm and right elbow. * ESR, uric acid still pending. * WINSOME and rheumatoid factor are normal recently. * Optimize control of diabetes to target hemoglobin A1c <7.0.
[2020-09-12 20:46] LABS: Glucose,Whole Blood 226 mg/dL (75-99)
[2020-09-13] MEDS: HYDROcodone/APAP 7.5-325MG 1 EACH TAB PO PRN ×2 (03:33→08:27)
[2020-09-13] MEDS: DIPHENOX-ATROP 2.5-0.025 MG 1 EACH TAB PO PRN (06:11)
[2020-09-13] MEDS: diphenhydrAMINE 25 MG CAP PO PRN (06:11)
[2020-09-13] MEDS: HEPARIN SODIUM,PORCINE 5,000 UNIT/ML 1 ML VIAL SQ SCH ×2 (06:21→12:41)
[2020-09-13 07:18] LABS: Glucose,Whole Blood 219 mg/dL (75-99)
[2020-09-13] MEDS: amLODIPine 5 MG TAB PO SCH (07:22)
[2020-09-13] MEDS: hydrALAZINE HCL 50 MG TAB PO SCH ×2 (07:22→16:48)
[2020-09-13] MEDS: METOPROLOL SUCCINATE (ER) 50 MG TAB.ER.24H PO SCH (07:22)
[2020-09-13] MEDS: REPAGLINIDE 1 MG TAB PO SCH ×2 (08:21→16:49)
[2020-09-13] MEDS: FOLIC ACID-VIT B COMPLEX-VIT C 1 CAP PO SCH (08:21)
[2020-09-13] MEDS: CALCIUM ACETATE 667 MG TAB PO SCH ×2 (08:21→16:48)
[2020-09-13] MEDS: METOCLOPRAMIDE 5 MG TAB PO SCH ×4 (08:22→16:49)
[2020-09-13] MEDS: PANTOPRAZOLE 40 MG TABLET PO SCH (08:22)
[2020-09-13] MEDS: hydrOXYzine HCL 10 MG TAB PO SCH ×2 (08:22→16:48)
[2020-09-13] MEDS: DICYCLOMINE 20 MG TAB PO SCH ×3 (08:22→16:49)
[2020-09-13] MEDS: INSULIN ASPART (NovoLOG) 100 UNIT/ML VIAL SQ SCH ×3 (08:22→16:48)
[2020-09-13] MEDS: LORATADINE 10 MG TAB PO SCH (08:22)
[2020-09-13] MEDS: CLOPIDOGREL 75 MG TAB PO SCH (08:22)
[2020-09-13] MEDS: PREGABALIN 75 MG CAP PO SCH (08:22)
[2020-09-13] MEDS: diphenhydrAMINE 2% CREAM 28.4 GM TUBE TOPICAL SCH (08:23)
[2020-09-13] MEDS ORDERED: LORazepam 2 MG/ML INJ IV STA (09:31)
--- NOTE | 2020-09-13 09:50 | P.PN ---
Subjective Patient is seen in follow-up for acute end-stage renal disease. She is maintained on hemodialysis on Thursday schedule. Tolerated d ialysis well yesterday. Currently sleeping. No changes overnight. Scheduled for right forearm MRI today. Vital signs are stable. General: The patient appeared well nourished and normally developed. HEENT: Head exam is unremarkable. Neck is without jugular venous distension. LUNGS: Breath sounds decreased. HEART: Rate and Rhythm are regular. ABDOMEN: Soft, nondistended. EXTREMITITES: Trace edema. Objective - Vital Signs Vital signs: Vital Signs Temp 98.1 F 09/13/20 07:30 Pulse 78 09/13/20 07:30 Resp 16 09/13/20 07:30 BP 83/57 09/13/20 07:30 Pulse Ox 96 09/13/20 07:30 Intake & Output 09/12/20 09/13/20 09/13/20 18:59 06:59 18:59 Output Total 2500 Balance -2500 Output: Hemodialysis 2500 Other: Voiding Method Toilet Toilet # Voids 5 # Bowel Movements 1 - Labs CBC & Chem 7: 09/12/20 08:20 09/12/20 08:20 Labs: Abnormal Lab Results - Last 24 Hours (Table) 09/12/20 09/12/20 09/12/20 Range/Units 11:11 16:31 20:44 POC Glucose (mg/dL) 131 H 139 H 226 H (75-99) mg/dL 09/13/20 Range/Units 07:17 POC Glucose (mg/dL) 219 H (75-99) mg/dL Microbiology - Last 24 Hours (Table) 09/12/20 11:32 Stool Culture - Preliminary Stool 09/11/20 14:15 Urine Culture - Final Urine,Clean Catch Assessment and Plan Plan: Assessment: 1. End-stage renal disease maintained on hemodialysis on Thursday schedule. 2. Hypertension with chronic kidney disease. Blood pressure currently on the lower side. 3. Chronic kidney disease mineral bone disease maintained on PhosLo. 4. Diarrhea. C. diff negative. Maintain on Questran. Colonoscopy revealed diverticulosis but was a poor prep. 5. Diabetes mellitus. 6. Metabolic acidosis secondary to GI losses. Improved. Plan: Hemodialysis tomorrow. Hold antihypertensives for systolic blood pressure less than 120. Follow-up MRI.
[2020-09-13 11:32] LABS: Glucose,Whole Blood 119 mg/dL (75-99)
[2020-09-13 12:56] VITALS: BP 97/67; PULSE 83; TEMP 97.8
[2020-09-13 13:52] VITALS: BMI 29.5
--- NOTE | 2020-09-13 17:12 | P.PN ---
Subjective Progress Note Date: 09/13/20 09/13/2020: Patient somnolent at this time. She received Ativan 1 mg IV for MRI, but unfortunately still not able to tolerate the MRI. 09/12/2020: Patient was seen for a follow-up. Patient complains of diarrhea. Patient appears somewhat more comfortable today, but continues to complain of pain in the right elbow and upper half forearm region, rates 5-6/10. Patient appears better, as the swelling has improved, and is able to flex her elbow somewhat comfortably, but still with severe pain with supination. Any supination movement hurts. Does not complain of right shoulder pain as much today. Patient had undergone colonoscopy for diarrhea. Patient also seen by orthopedic surgery, and x-rays of the right shoulder elbow and forearm were performed. X-ray of the right shoulder reveal no fracture/dislocation. Glenohumeral joint shows mild to moderate narrowing. The visualized ribs are intact. X-ray of the right elbow showed no fracture. Mild to moderate diffuse subcutaneous edema. Objective - Vital Signs Vital signs: Vital Signs Temp 97.8 F 09/13/20 12:53 Pulse 83 09/13/20 12:53 Resp 16 09/13/20 12:53 BP 97/67 09/13/20 12:53 Pulse Ox 92 L 09/13/20 12:53 Intake & Output 09/12/20 09/13/20 09/13/20 18:59 06:59 18:59 Output Total 2500 Balance -2500 Weight 88.2 kg Output: Hemodialysis 2500 Other: Voiding Method Toilet Toilet # Voids 5 3 # Bowel Movements 1 - Exam Patient sleeping at this time. Nurse was present. Patient's arm mobility to passive movement appears better. The swelling of the right upper limb also has improved. - Labs CBC & Chem 7: 09/12/20 08:20 09/12/20 08:20 Labs: Abnormal Lab Results - Last 24 Hours (Table) 09/12/20 09/13/20 09/13/20 Range/Units 20:44 07:17 11:30 POC Glucose (mg/dL) 226 H 219 H 119 H (75-99) mg/dL Microbiology - Last 24 Hours (Table) 09/12/20 11:32 Stool Culture - Preliminary Stool 09/11/20 14:15 Urine Culture - Final Urine,Clean Catch Assessment and Plan Assessment: * Right upper extremity pain, weakness (possible partly due to guarding), and significant swelling, in the right elbow and forearm region > shoulder upper arm. Venous ultrasound negative for DVT on 08/30/2020. Neurological examination revealed symmetric reflexes, normal sensations. Doubt primary neurological process. Doubt brachial plexopathy. * Diabetes not well controlled * End-stage renal disease on hemodialysis Plan: * MRI of the right elbow was attempted. Unfortunately even with Ativan 1 mg IV, patient was sleeping, but still not able to elevate her arm above her head for MRI to be done. The test was canceled. * Suggest treatment with a cold compress, physical therapy, a course of nonsteroidal anti-inflammatory medications or short course of steroids. * ESR, uric acid still pending. * WINSOME and rheumatoid factor are normal recently. * Optimize control of diabetes to target hemoglobin A1c <7.0.
--- NOTE | 2020-09-14 07:27 | CDI ---
Documentation Clarification Form Date: 09/14/20 From: Melanie Gutierrez Phone: If you have a question about this query, please contact Francine Lee, Shade Matcher at [phone] between 8am and 5pm. Admit Date: 09/07/20 Discharge Date: 09/13/20 Patient Name: BLANCA DALE Visit Number: [id number] ATTENTION: The Clinical Documentation Specialists (CDI) and [facility] Coding Staff appreciate your assistance in clarifying documentation. Please respond to the clarification below the line at the bottom and electronically sign. The CDI & [facility] Coding staff will review the response and follow-up if needed. Please note: Queries are made part of the Legal Health Record. If you have any questions, please contact the author of this message via ITS. Dear Dr. Pavel Velasquez, Atrial Fibrillation is documented in your PN on 09/09. History/Risk Factors: chronic diarrhea, HTN w ESRD & chronic diastolic CHF, cholestasis, GERD w erosive esophagitis, pulm HTN, acidosis, anemia in CKD, Factor V, DM in CKD, gastroparesis and PAD EKG/telemetry: Sinus rhythm with a rate of 88.DE interval is 166.QRS 142.QTC of 5:15. Inverted T-wave ST depression V1 and V2 Treatment: Eliquis 2.5 mg po BID In your professional opinion, can you please clarify the type of Atrial Fibrillation, if known? Chronic Permanent Paroxysmal Persistent, longstanding Persistent, other Persistent, permanent Other, please specify Unable to determine MTDD
--- NOTE | 2020-09-14 07:37 | CDI ---
Documentation Clarification Form Date: 09/14/20 From: Melanie Gutierrez Phone: If you have a question about this query, please contact Francine Lee, [employer] Producer at [phone] between 8am and 5pm. Admit Date: 09/07/20 Discharge Date: 09/13/20 Patient Name: BLANCA DALE Visit Number: [id number] ATTENTION: The Clinical Documentation Specialists (CDI) and [facility] Coding Staff appreciate your assistance in clarifying documentation. Please respond to the clarification below the line at the bottom and electronically sign. The CDI & [facility] Coding staff will review the response and follow-up if needed. Please note: Queries are made part of the Legal Health Record. If you have any questions, please contact the author of this message via ITS. Dear Dr. Pavel Velasquez, The patient presented with the following diarrhea. History/Risk Factors: HTN w ESRD & chronic diastolic CHF, cholestasis, GERD w erosive esophagitis, pulm HTN, acidosis, anemia in CKD, Factor V, DM in CKD, gastroparesis and PAD Clinical Indicators: Presents to the emergency department with reported severe diarrhea 3 weeks. Has had persistent non-bloody diarrhea. Lab findings: C-diff negative Vital Signs: T-98, P-88, R-18, BP-148/94, O2 SAT-99 Treatment: Cholestyramine 4 grams twice daily, stool culture negative Consults: Colonoscopy revealed sigmoid diverticulosis -path of RT & LT colon: benign colonic mucosa without histopatholgic abnormality In your professional opinion, can you please clarify the cause of the diarrhea? Other, please specify Unable to determine MTDD
--- NOTE | 2020-09-24 09:20 | PN ---
PROGRESS NOTE ADDENDUM: Chronic diarrhea, unclear etiology. MMODL / IJN: [id number] /
--- NOTE | 2020-09-25 12:26 | CDI ---
Documentation Clarification Form Date: 09/14/20 From: Melanie Gutierrez Phone: If you have a question about this query, please contact Francine Lee, [employer] at [phone] between 8am and 5pm. Admit Date: 09/07/20 Discharge Date: 09/13/20 Patient Name: BLANCA DALE Visit Number: [id number] ATTENTION: The Clinical Documentation Specialists (CDI) and [facility] Coding Staff appreciate your assistance in clarifying documentation. Please respond to the clarification below the line at the bottom and electronically sign. The CDI & [facility] Coding staff will review the response and follow-up if needed. Please note: Queries are made part of the Legal Health Record. If you have any questions, please contact the author of this message via ITS. Dear Dr. Pavel Velasquez, Atrial Fibrillation is documented in your PN on 09/09. History/Risk Factors: chronic diarrhea, HTN w ESRD & chronic diastolic CHF, cholestasis, GERD w erosive esophagitis, pulm HTN, acidosis, anemia in CKD, Factor V, DM in CKD, gastroparesis and PAD Clinical Indicators: EKG/telemetry: Sinus rhythm with a rate of 88.AZ interval is 166.QRS 142.QTC of 5:15. Inverted T-wave ST depression V1 and V2 Treatment: Eliquis 2.5 mg po BID In your professional opinion, can you please clarify the type of Atrial Fibrillation, if known? Chronic Permanent Paroxysmal Persistent, longstanding Persistent, other Persistent, permanent Other, please specify Unable to determine MTDD
--- NOTE | 2020-09-26 11:30 | CDI ---
Documentation Clarification Form Date: 09/14/20 From: Melanie Gutierrez Phone: If you have a question about this query, please contact Francine Lee, Configuration Engineer at [phone] between 8am and 5pm. Admit Date: 09/07/20 Discharge Date: 09/13/20 Patient Name: BLANCA DALE Visit Number: [id number] ATTENTION: The Clinical Documentation Specialists (CDI) and [facility] Coding Staff appreciate your assistance in clarifying documentation. Please respond to the clarification below the line at the bottom and electronically sign. The CDI & [facility] Coding staff will review the response and follow-up if needed. Please note: Queries are made part of the Legal Health Record. If you have any questions, please contact the author of this message via ITS. Dear Dr. Pavel Velasquez, Atrial Fibrillation is documented in your PN on 09/09. History/Risk Factors: chronic diarrhea, HTN w ESRD & chronic diastolic CHF, cholestasis, GERD w erosive esophagitis, pulm HTN, acidosis, anemia in CKD, Factor V, DM in CKD, gastroparesis and PAD Clinical Indicators: EKG/telemetry: Sinus rhythm with a rate of 88.PA interval is 166.QRS 142.QTC of 5:15. Inverted T-wave ST depression V1 and V2 Treatment: Eliquis 2.5 mg po BID In your professional opinion, can you please clarify the type of Atrial Fibrillation, if known? Chronic Permanent Paroxysmal Persistent, longstanding Persistent, other Persistent, permanent Other, please specify Unable to determine MTDD
== END 2020-09-13 17:28 | disposition home health service (06) | DRG 391 ==
LOC: EC 15:33 → 4SSUR 18:17
PROVIDERS: ADMIT Family Medicine; ATTEND Family Medicine
PROC: 5A1D70Z Performance of Urinary Filtration, Intermittent, Less than 6 Hours Per Day (ICD-10-PCS; principal; 2020-09-08)
PROC: 0DBF8ZX Excision of Right Large Intestine, Via Natural or Artificial Opening Endoscopic, Diagnostic (ICD-10-PCS; 2020-09-11)
PROC: 0DBG8ZX Excision of Left Large Intestine, Via Natural or Artificial Opening Endoscopic, Diagnostic (ICD-10-PCS; 2020-09-11)
DX: K52.9 Noninfective gastroenteritis and colitis, unspecified (principal); N18.6 End stage renal disease; K83.1 Obstruction of bile duct; I13.2 Hypertensive heart and chronic kidney disease with heart failure and with stage 5 chronic kidney disease, or end stage renal disease; I50.32 Chronic diastolic (congestive) heart failure; D68.2 Hereditary deficiency of other clotting factors; K22.10 Ulcer of esophagus without bleeding; E87.2 Acidosis; I27.20 Pulmonary hypertension, unspecified; E83.9 Disorder of mineral metabolism, unspecified; D63.1 Anemia in chronic kidney disease; I48.91 Unspecified atrial fibrillation; G83.21 Monoplegia of upper limb affecting right dominant side; I80.8 Phlebitis and thrombophlebitis of other sites; E11.43 Type 2 diabetes mellitus with diabetic autonomic (poly)neuropathy; E11.22 Type 2 diabetes mellitus with diabetic chronic kidney disease; E11.51 Type 2 diabetes mellitus with diabetic peripheral angiopathy without gangrene; K74.60 Unspecified cirrhosis of liver; Z99.2 Dependence on renal dialysis; J44.9 Chronic obstructive pulmonary disease, unspecified; I70.213 Atherosclerosis of native arteries of extremities with intermittent claudication, bilateral legs; I71.4 Abdominal aortic aneurysm, without rupture; F31.9 Bipolar disorder, unspecified; Z91.15 Patient's noncompliance with renal dialysis; I35.8 Other nonrheumatic aortic valve disorders; I45.10 Unspecified right bundle-branch block; K31.84 Gastroparesis; M54.16 Radiculopathy, lumbar region; I25.10 Atherosclerotic heart disease of native coronary artery without angina pectoris; I49.1 Atrial premature depolarization; E78.5 Hyperlipidemia, unspecified; K76.9 Liver disease, unspecified; K57.30 Diverticulosis of large intestine without perforation or abscess without bleeding; K21.00 Gastro-esophageal reflux disease with esophagitis, without bleeding; F41.9 Anxiety disorder, unspecified; M25.511 Pain in right shoulder; M25.521 Pain in right elbow; L29.9 Pruritus, unspecified; I25.2 Old myocardial infarction; F17.210 Nicotine dependence, cigarettes, uncomplicated; Z71.6 Tobacco abuse counseling; Z79.01 Long term (current) use of anticoagulants; Z79.02 Long term (current) use of antithrombotics/antiplatelets; Z79.899 Other long term (current) drug therapy; Z90.49 Acquired absence of other specified parts of digestive tract; Z87.19 Personal history of other diseases of the digestive system; Z95.5 Presence of coronary angioplasty implant and graft; Z86.73 Personal history of transient ischemic attack (TIA), and cerebral infarction without residual deficits; Z86.718 Personal history of other venous thrombosis and embolism; Z95.1 Presence of aortocoronary bypass graft; Z87.01 Personal history of pneumonia (recurrent); Z98.51 Tubal ligation status; Z95.828 Presence of other vascular implants and grafts; Z98.890 Other specified postprocedural states; Z88.2 Allergy status to sulfonamides; Z88.8 Allergy status to other drugs, medicaments and biological substances; Z88.1 Allergy status to other antibiotic agents; Z91.040 Latex allergy status; Z82.49 Family history of ischemic heart disease and other diseases of the circulatory system; Z82.5 Family history of asthma and other chronic lower respiratory diseases; Z83.2 Family history of diseases of the blood and blood-forming organs and certain disorders involving the immune mechanism; Z80.9 Family history of malignant neoplasm, unspecified
CPT/HCPCS: 36415; 45380; 71046; 80048; 80053; 81001; 82272; 82550; 83036; 83605; 83630; 83690; 83735; 83880; 84100; 84484; 85025; 85027; 85610; 85730; 86706; 87045; 87046; 87086; 87324; 87340; 88305; 90935; 93005; 96374; 96375; 99285

== ENCOUNTER 2020-09-17 12:04 | Inpatient (IN) | payer MEDICARE, OTHER ==
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
[2020-09-17] MEDS ORDERED: MORPHINE SULFATE 4 MG/ML SYRINGE IVP STA (13:30)
[2020-09-17 13:35] LABS: Anisocytosis Slight; Basophils # (A) 0.1 k/uL (0-0.2); Basophils % (A) 1 %; Eosinophils # (A) 0.2 k/uL (0-0.7); Eosinophils % (A) 2 %; HGB 10.1 gm/dL (11.4-16.0); Lymphocytes # (A) 0.7 k/uL (1.0-4.8); Lymphocytes % (A) 6 %; MCH 29.2 pg (25.0-35.0); MCHC 31.5 g/dL (31.0-37.0); MCV 92.7 fL (80.0-100.0); Mean Platelet Volume 9.4; Monocytes # (A) 0.5 k/uL (0-1.0); Monocytes % (A) 5 %; Neutrophils # (A) 9.3 k/uL (1.3-7.7); Neutrophils % (A) 86 %; Platelet Count 232 k/uL (150-450); RBC 3.45 m/uL (3.80-5.40); RDW 16.2 % (11.5-15.5); WBC 10.8 k/uL (3.8-10.6)
[2020-09-17 13:51] LABS: Albumin 3.1 g/dL (3.5-5.0); Calcium 8.3 mg/dL (8.4-10.2); Magnesium 2.2 mg/dL (1.6-2.3); Phosphorus 6.2 mg/dL (2.5-4.5); Potassium 4.7 mmol/L (3.5-5.1); Total Bilirubin 1.9 mg/dL (0.2-1.3); Total Protein 6.4 g/dL (6.3-8.2)
[2020-09-17] MEDS ORDERED: ONDANSETRON 4 MG/2 ML VIAL IVP PRN (15:31)
[2020-09-17] MEDS ORDERED: SODIUM CHLORIDE 0.9% 1,000 ML IV ONE (15:31)
[2020-09-17] MEDS: MORPHINE SULFATE 4 MG/ML SYRINGE IVP PRN ×2 (18:38→22:39)
[2020-09-17 20:45] LABS: Glucose,Whole Blood 285 mg/dL (75-99)
[2020-09-17] MEDS ORDERED: DIPHENOX-ATROP 2.5-0.025 MG 1 EACH TAB PO PRN (20:45)
[2020-09-17] MEDS ORDERED: NITROGLYCERIN SL TABS 0.4 MG TAB SUBLINGUAL PRN (20:45)
[2020-09-17] MEDS ORDERED: CHOLESTYRAMINE (WITH SUGAR) 4 GM PACKET PO PRN (20:45)
[2020-09-17] MEDS: PREGABALIN 75 MG CAP PO SCH (22:35)
[2020-09-17] MEDS: hydrALAZINE HCL 50 MG TAB PO SCH (22:35)
[2020-09-17] MEDS: APIXABAN 2.5 MG TABLET PO SCH (22:35)
[2020-09-17] MEDS: diphenhydrAMINE 2% CREAM 28.4 GM TUBE TOPICAL SCH (22:35)
[2020-09-17] MEDS: amLODIPine 5 MG TAB PO SCH (22:35)
[2020-09-17] MEDS: DICYCLOMINE 20 MG TAB PO SCH (22:53)
[2020-09-17 23:04] LABS: Glucose,Whole Blood 296 mg/dL (75-99)
[2020-09-17] MEDS: INSULIN ASPART (NovoLOG) 100 UNIT/ML VIAL SQ SCH (23:45)
[2020-09-18] MEDS: MORPHINE SULFATE 4 MG/ML SYRINGE IVP PRN (02:49)
[2020-09-18 06:59] LABS: Glucose,Whole Blood 162 mg/dL (75-99)
[2020-09-18] MEDS ORDERED: PANTOPRAZOLE 40 MG TABLET PO SCH (07:30)
[2020-09-18] MEDS ORDERED: INSULIN ASPART (NovoLOG) 100 UNIT/ML VIAL SQ SCH (07:30)
[2020-09-18] MEDS: INSULIN ASPART (NovoLOG) 100 UNIT/ML VIAL SQ SCH ×4 (07:54→20:14)
[2020-09-18] MEDS: METOCLOPRAMIDE 5 MG TAB PO SCH ×2 (07:55→11:17)
[2020-09-18] MEDS ORDERED: CALCIUM CARBONATE 500 MG CHEWABLE PO PRN (07:58)
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
[2020-09-18] MEDS ORDERED: LEVOFLOXACIN 250MG-D5W PMX 250 MG in DEXTROSE/WATER 1 50ML.BAG IVPB SCH (08:30)
[2020-09-18] MEDS ORDERED: CLOPIDOGREL 75 MG TAB PO SCH (09:00)
[2020-09-18] MEDS: HYDROcodone/APAP 7.5-325MG 1 EACH TAB PO PRN ×2 (11:11→16:55)
[2020-09-18 11:12] LABS: Glucose,Whole Blood 118 mg/dL (75-99)
[2020-09-18] MEDS: MAG HYDROX/AL HYDROX/SIMETH 30 ML CUP PO PRN ×2 (11:12→20:16)
[2020-09-18] MEDS: REPAGLINIDE 1 MG TAB PO SCH ×2 (11:14→17:29)
[2020-09-18] MEDS: DICYCLOMINE 20 MG TAB PO SCH ×2 (11:14→15:27)
[2020-09-18] MEDS: CALCIUM ACETATE 667 MG TAB PO SCH ×2 (11:15→17:29)
[2020-09-18] MEDS: hydrALAZINE HCL 50 MG TAB PO SCH ×3 (11:15→20:11)
[2020-09-18] MEDS ORDERED: CHOLESTYRAMINE (WITH SUGAR) 4 GM PACKET PO SCH (11:15)
[2020-09-18] MEDS: APIXABAN 2.5 MG TABLET PO SCH (11:15)
[2020-09-18] MEDS: amLODIPine 5 MG TAB PO SCH ×2 (11:15→20:13)
[2020-09-18] MEDS: LORATADINE 10 MG TAB PO SCH (11:16)
[2020-09-18] MEDS: PANTOPRAZOLE 40 MG TABLET PO SCH ×2 (11:16→16:58)
[2020-09-18] MEDS: METOPROLOL SUCCINATE (ER) 50 MG TAB.ER.24H PO SCH (11:16)
[2020-09-18] MEDS: PREGABALIN 75 MG CAP PO SCH ×2 (11:17→20:12)
[2020-09-18] MEDS: diphenhydrAMINE 2% CREAM 28.4 GM TUBE TOPICAL SCH ×2 (11:28→20:15)
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
[2020-09-18] MEDS: metroNIDAZOLE-NS PMX 500 MG in SALINE 1 100ML.BAG IVPB SCH ×2 (14:18→16:55)
[2020-09-18 14:27] VITALS: BMI 28.8
--- NOTE | 2020-09-18 15:25 | CONS ---
CONSULTATION REASON FOR CONSULT: End-stage renal disease. HISTORY OF PRESENT ILLNESS: Patient is a 50-year-old female with end-stage renal disease, on hemodialysis on a Thursday, Thursday, Thursday schedule. She was admitted to the hospital with complaints of diarrhea, nausea, and vomiting. Patient states that she did not feel well and she did not go to her dialysis treatment secondary to diarrhea. She has had about 8-9 loose bowel movements. No major fevers or chills. Patient is also complaining of itching, which is generalized with small lesions noted which are not red or raised or pustular. Her phosphorus is elevated at 6.2. I do not have a PTH level which will definitely contribute to the itching. PAST MEDICAL HISTORY: Asthma, end-stage renal disease, COPD, CHF, CVA, TIA, type 2 diabetes, history of DVT, GI bleed, hyperlipidemia, history of AR, pneumonia, peripheral vascular disease, history of lumbar radiculopathy, history of erosive esophagitis and GI bleed. SURGICAL HISTORY: Cholecystectomy, coronary artery bypass surgery, cardiac catheterization, coronary stent placement, tubal ligation, dialysis catheter placement, common iliac artery stents, EGD. Past medical history also significant for anxiety and bipolar disorder. SOCIAL HISTORY: Positive for smoking, no history of other drug abuse or alcohol abuse. MEDICATIONS: Prior to admission included Toprol, Reglan, Марина Twyla, Norvasc Nitrostat, Zofran, Xanax, Eliquis, , Plavix, hydralazine, PhosLo, hydroxyzine, Bentyl, Lyrica, Benadryl, cholestyramine, Protonix, Lomotil, Duff, insulin. ALLERGIES: Multiple include LIPITOR, KEFLEX, LATEX, ZOCOR, BACTRIM. REVIEW OF SYSTEMS: As per HPI. Other systems negative. PHYSICAL EXAMINATION: Patient is comfortable, awake, not in any acute distress. Alert, oriented x3. Blood pressure is 156/85, heart rate 94 per minute, she is afebrile. Examination of the heart S1, S2. Examination of the lungs, bilateral breath sounds are heard. Abdomen is soft, nontender. Examination of lower extremities shows no significant edema. ASTRO TECHNICIAN exam grossly intact. Patient is noted to have raised lesions on the torso and on the arms. She states at the age, they are not noted to be pustular or edematous. Some hyperpigmentation noted as well. These are nontender. ASTRO TECHNICIAN exam grossly intact. LABS: Not available from today. Yesterday on 09/17, hemoglobin 10.0, white cell count 10.8, sodium 135, potassium 4.7, BUN 50, creatinine 4.85, phosphorus 6.2, calcium 8.3. ASSESSMENT: 1. End-stage renal disease, on hemodialysis on a Thursday, Thursday, Thursday schedule. 2. Diarrhea, etiology unclear. No evidence of Clostridium difficile colitis. 3. History of gastrointestinal bleed, maintained on proton pump inhibitors which can also contribute to diarrhea to some degree. 4. CKD mineral bone disorder. 5. Rash, unclear etiology. However, patient's phosphorus is elevated and if her PTH is elevated as well, this may be from hyperparathyroidism and calcium phosphorus deposits. Patient is advised to take her phosphate binders regularly. I will also check a PTH level as outpatient from her outpatient labs. 6. Mild volume overload, currently improved, post dialysis. We had about 4 L of fluid taken off today. Will plan for dialysis again tomorrow. PLAN: Hemodialysis again in a.m. May continue with Benadryl for the itching and check PTH levels from outpatient dialysis labs. Thank you for this consultation. Will continue to follow the patient with you during her hospitalization. MMODL / IJN: [id number] /
[2020-09-18 16:35] LABS: Hemoglobin A1C 7.6 % (4.0-6.0)
[2020-09-18 17:10] LABS: Glucose,Whole Blood 152 mg/dL (75-99)
--- NOTE | 2020-09-18 17:40 | CONS ---
CONSULTATION DATE OF DICTATION: 09/18/2020 REASON FOR CONSULTATION: Chronic diarrhea of 3 months' duration. HISTORY OF PRESENT ILLNESS: The patient is a 50-year-old -N[place]alese female with end-stage renal disease, on hemodialysis, who was just discharged from the hospital when she was admitted with severe diarrhea. She was having bowel movements anywhere from 5 to 10 a day which were loose to watery in consistency. Symptoms can be mostly in the postprandial period, but occasionally nocturnal also. During her last hospitalization, she did undergo colonoscopy by Dr. Nolen that showed a normal-appearing colon from rectum to cecum, and multiple biopsies done from the ascending and descending colon did not show any evidence of colitis. The patient was discharged home on Lomotil as well as Questran 4 grams twice daily. She states that she took 2 packets of Questran twice daily and was taking Lomotil 2 tablets 4 times daily, despite which she was having diarrhea anywhere from 8 to 10 times a day. She denies any weight loss. She has some cramping lower abdominal pain. She reports no nausea, vomiting. In April of this year during one of her hospitalizations she did have diarrhea and stool studies were negative. Celiac panel was negative. She denies being started on any new medications recently. She has severe gastroesophageal reflux disease, has been on Protonix and Reglan, but she has been on it for several months. PAST MEDICAL HISTORY: Her past medical history is significant for hypertension, hyperlipidemia, end-stage renal disease, on hemodialysis, asthma, COPD, history of CVA in the past, diabetes mellitus, DVT, coronary artery disease. PAST SURGICAL HISTORY: Cholecystectomy, CABG, cardiac cath with stent placement, tubal ligation, bilateral iliac artery stents, and Higginbotham catheter placement on the right side. MEDICATIONS: Medications at home include metoprolol, Reglan, Norvasc, Nitrostat, Zofran, Xanax, Eliquis, cetirizine, Plavix, Apresoline, hydroxyzine, PhosLo, Bentyl, Lyrica, zinc, Benadryl, cholestyramine, Protonix, NovoLog, Lomotil and Addy. ALLERGIES: ATORVASTATIN, KEFLEX, LATEX, ZOCOR, BACTRIM. SOCIAL HISTORY: Chronic smoker but no alcohol use. FAMILY HISTORY: Mother with asthma and cancer. Father with DVT and NE. Daughter with pulmonary embolism. REVIEW OF SYSTEMS: CARDIOPULMONARY: No chest pain or shortness of breath. GENITOURINARY: No dysuria or hematuria. MUSCULOSKELETAL: Chronic back pain. NEUROLOGY: Unremarkable. PSYCHIATRIC: Unremarkable. ENT/VISION: Unremarkable. CONSTITUTIONAL: No recent weight loss. No fever, chills, night sweats. SKIN: She developed a skin rash for the last 2 months, which is somewhat nodular in the back as well as in the upper extremities. HEMATOLOGY: Unremarkable. GENITOURINARY: As mentioned above. PHYSICAL EXAMINATION: She appears comfortable. No apparent distress. Vital signs are stable. Blood pressure is 156/86, pulse rate 94, temperature 97.7. HEENT examination unremarkable. Conjunctivae pink. Sclerae anicteric. Oral cavity no lesions. NECK: No JVD or lymph node enlargement. CHEST: Clear to auscultation. HEART: Regular rate and rhythm. ABDOMEN: Soft. It was non-tender, non-distended. Bowel sounds are positive. No organomegaly. EXTREMITIES: No pedal edema. NEUROLOGIC: She is alert and oriented x3. No focal deficits. SKIN: Small nodular-like lesions on the back and upper extremities. LABS: Labs done at the time of admission to the hospital: WBC 10.8, hemoglobin 10.1, platelets normal. Basic metabolic panel showed a BUN of 58, creatinine 4.80, CO2 18, sodium 135, potassium 4.7. T-bilirubin is 1.9. AST and ALT are 43 and 42, respectively. Alkaline phosphatase is 649. C difficile is negative. IMPRESSION: 1. Chronic diarrhea for the last 3 months' duration. The patient initially has been having intermittent diarrhea, but lately diarrhea has been almost on a daily basis. She has bowel movements anywhere from 10 to 12 a day which are loose to watery in consistency but no blood or mucus in the stool. As a part of workup she had a celiac panel done a few months ago that was negative. Stool studies on 2 different occasions were negative. Colonoscopy by Dr. Nolen last admission, which was 2 weeks ago, showed a normal colon, and random biopsies did not show any evidence of colitis. She was treated empirically with Bentyl, Lomotil and Questran, with no help. At this time other etiologies of chronic diarrhea need to be considered. Rule out small-bowel mucosal pathology. Rule out chronic pancreatitis. Rule out neuroendocrine causes of diarrhea. 2. End-stage renal disease, on hemodialysis. 3. Atrial fibrillation, on Eliquis. 4. History of elevated liver function tests, status post liver biopsy done 4 months ago at the time of gallbladder surgery that showed evidence of chronic venous outflow obstruction. 5. Longstanding history of diabetes mellitus. 6. Hypertension. RECOMMENDATIONS: 1. Reviewed all the medications and will discontinue Reglan; that can potentially aggravate the diarrhea. 2. Will obtain 24-hour stool for fat to rule out steatorrhea. 3. Obtain stool for elastase to evaluate for chronic pancreatitis. 4. Will schedule her for an upper endoscopy with small bowel biopsies to rule out small bowel malabsorption as a cause of diarrhea, but since the patient is on Eliquis, this will be performed on . Eliquis has been on hold. 5. Obtain antigen and rule out other parasitic infestations. 6. Obtain sedimentation rate and CRP. 7. Will follow with you closely. Thank you for this consultation. MMAMAIRANIL / ELSYN: [id number] /
[2020-09-18 17:45] LABS: Hepatitis B Surface AB- Quant 3.5 mIU/mL; Hepatitis B Surface Antibody Non-Reactive (Non-Reactive); Hepatitis B Surface Antigen Non-Reactive (Non-Reactive)
[2020-09-18 20:06] LABS: Glucose,Whole Blood 138 mg/dL (75-99)
[2020-09-18] MEDS: diphenhydrAMINE 25 MG CAP PO PRN (20:12)
[2020-09-19] MEDS: metroNIDAZOLE-NS PMX 500 MG in SALINE 1 100ML.BAG IVPB SCH ×4 (00:48→23:59)
[2020-09-19] MEDS: HYDROcodone/APAP 7.5-325MG 1 EACH TAB PO PRN (05:22)
[2020-09-19 07:15] LABS: Glucose,Whole Blood 134 mg/dL (75-99)
[2020-09-19] MEDS: CALCIUM ACETATE 667 MG TAB PO SCH ×2 (08:31→18:03)
[2020-09-19] MEDS: INSULIN ASPART (NovoLOG) 100 UNIT/ML VIAL SQ SCH ×4 (08:31→21:13)
[2020-09-19] MEDS: REPAGLINIDE 1 MG TAB PO SCH ×2 (08:32→18:04)
[2020-09-19] MEDS: LORATADINE 10 MG TAB PO SCH (08:35)
[2020-09-19] MEDS: PANTOPRAZOLE 40 MG TABLET PO SCH ×2 (08:40→18:04)
[2020-09-19] MEDS ORDERED: HYDROcodone/APAP 7.5-325MG 1 EACH TAB PO ONE (08:53)
[2020-09-19 09:04] LABS: Anisocytosis Slight; Basophils # (A) 0.1 k/uL (0-0.2); Basophils % (A) 1 %; Eosinophils # (A) 0.2 k/uL (0-0.7); Eosinophils % (A) 2 %; HCT 30.5 % (34.0-46.0); HGB 9.7 gm/dL (11.4-16.0); Lymphocytes # (A) 0.8 k/uL (1.0-4.8); Lymphocytes % (A) 9 %; MCH 29.5 pg (25.0-35.0); MCV 92.4 fL (80.0-100.0); Mean Platelet Volume 9.4; Monocytes # (A) 0.5 k/uL (0-1.0); Monocytes % (A) 6 %; Neutrophils # (A) 7.3 k/uL (1.3-7.7); Neutrophils % (A) 81 %; Platelet Count 242 k/uL (150-450); RDW 16.2 % (11.5-15.5)
[2020-09-19] MEDS: diphenhydrAMINE 2% CREAM 28.4 GM TUBE TOPICAL SCH ×2 (11:17→21:15)
[2020-09-19 11:47] LABS: Glucose,Whole Blood 158 mg/dL (75-99)
[2020-09-19] MEDS ORDERED: LEVOFLOXACIN 250 MG TAB PO SCH (12:00)
--- NOTE | 2020-09-19 12:06 | P.PN ---
Subjective Progress Note Date: 09/19/20 Principal diagnosis: Chronic Diarrhea 50-year-old -[place] female with end-stage renal disease on hemodialysis with frequent admissions, who was recently admitted for severe diarrhea and underwent a colonoscopy which showed sigmoid diverticulosis otherwise normal-appearing colon. 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 Patient denies any associated nausea or vomiting. Patient has chronic abdominal pain. The patient was discharged home on Lomotil and Questran. States she was taking both but was not helping. She has had prior celiac panel is dictation which was negative. Denies any new medications. She does state that she has severe gastroesophageal reflux disease and is on Protonix and Reglan at home. A 24-hour stool for fat was ordered. Patient sta mukund she has not had any further bowel movements since yesterday afternoon when seeing us. She is currently getting hemodialysis. She denies any nausea or vomiting, but does state she still has some mild lower abdominal discomfort. She is tolerating her diet. Is scheduled for an EGD tomorrow. Eliquia and Plavix on hold. She will be nothing by mouth after midnight. Objective - Vital Signs Vital signs: Vital Signs Temp 98.0 F 09/19/20 11:46 Pulse 78 09/19/20 11:46 Resp 17 09/19/20 11:46 BP 105/71 09/19/20 11:46 Pulse Ox 99 09/19/20 11:46 Intake & Output 09/18/20 09/19/20 09/19/20 18:59 06:59 18:59 Intake Total 250 290 480 Output Total 4000 Balance -3750 290 480 Weight 86.183 kg Intake: Intake, IV Titration 250 290 Amount Levofloxacin 250Mg-D5w 250 Pmx 250 mg In Dextrose/ Water 1 50ml.bag @ 50 mls /hr IVPB Q24H BENI Rx#: [id number] Sodium Chloride 0.9% 1, 240 000 ml @ 20 mls/hr IV . Q24H ONE Rx#:[id number] metroNIDAZOLE-NS PMX 500 50 mg In Saline 1 100ml.bag @ 100 mls/hr IVPB Q8HR BENI Rx#:[id number] Oral 480 Output: Hemodialysis 4000 Other: Voiding Method Toilet Toilet Toilet # Voids 0 0 - Exam General appearance: The patient is alert, oriented, in no acute distress. HET: Head is normocephalic and atraumatic. Conjunctiva pink. Sclera anicteric. Neck: Supple without lymphadenopathy. Abdomen: Soft, use tenderness nondistended with bowel sounds. No guarding or rigidity. Extremities: Normal skin color and turgor. Nodular skin rash on the bilateral upper extremities and back. No pedal edema Neurological: No focal deficits. Alert and oriented 3. - Labs CBC & Chem 7: 09/19/20 08:50 09/17/20 12:36 Labs: Abnormal Lab Results - Last 24 Hours (Table) 09/17/20 09/18/20 09/18/20 Range/Units 12:36 08:28 17:09 RBC (3.80-5.40) m/uL Hgb (11.4-16.0) gm/dL Hct (34.0-46.0) % RDW (11.5-15.5) % Lymphocytes # (1.0-4.8) k/uL POC Glucose (mg/dL) 152 H (75-99) mg/dL Hemoglobin A1c 7.6 H (4.0-6.0) % Procalcitonin 0.45 H (0.02-0.09) ng/mL 09/18/20 09/19/20 09/19/20 Range/Units 20:04 07:09 08:50 RBC 3.30 L (3.80-5.40) m/uL Hgb 9.7 L (11.4-16.0) gm/dL Hct 30.5 L (34.0-46.0) % RDW 16.2 H (11.5-15.5) % Lymphocytes # 0.8 L (1.0-4.8) k/uL POC Glucose (mg/dL) 138 H 134 H (75-99) mg/dL Hemoglobin A1c (4.0-6.0) % Procalcitonin (0.02-0.09) ng/mL 09/19/20 Range/Units 11:43 RBC (3.80-5.40) m/uL Hgb (11.4-16.0) gm/dL Hct (34.0-46.0) % RDW (11.5-15.5) % Lymphocytes # (1.0-4.8) k/uL POC Glucose (mg/dL) 158 H (75-99) mg/dL Hemoglobin A1c (4.0-6.0) % Procalcitonin (0.02-0.09) ng/mL Assessment and Plan Assessment: 1. Chronic diarrhea for the last 3 months duration. Patient was initially having intermittent diarrhea but clearly has been having daily, up to 8-10 times a day describes as loose and watery in consistency with no blood or mucus. The workup she has had a celiac panel done a few months ago that was negative, stool studies on 2 different occasions were negative. Colonoscopy by Dr. Nolen 2 weeks ago which showed. Sigmoid diverticulosis otherwise normal c olon. Biopsies were taken and showed benign normal mucosa. She was treated empirically with Bentyl, Lomotil and Questran with no help. Other etiologies of chronic diarrhea need to be considered. Rule out small bowel mucosal pathology. Rule out chronic pancreatitis. Rule out neuroendocrine causes of diarrhea. 2. End-stage renal disease on hemodialysis 3. Atrial fibrillation on Eliquis 4. History of elevated liver function tests, status post liver biopsy done 4 months ago at the time of gallbladder surgery that showed evidence of chronic venous outflow obstruction 5. Long-standing history of diabetes mellitus 6. Hypertension Plan: 1. Medication review completed, Reglan discontinued 2. Continue Lomotil PRN, can add questran and bently if symptoms resturn 3. Obtain stool studies for elastase to evaluate for chronic pancreatitis 4. Patient is scheduled for upper endoscopy with small bowel biopsies tomorrow 5. Eliquis and Plavix on hold 6. Nothing by mouth after midnight 7. Obtain stool OVA/PARASITE 8. Will Continue to follow with you closely. The impression and plan of care has been dictated as directed. Dr. Polo Otto I performed a history and examination of this patient, discussed the same with the dictator. I agree with the dictator's note ,documented as a scribe. Any additional findings or plans will be noted.
[2020-09-19] MEDS: hydrALAZINE HCL 50 MG TAB PO SCH ×3 (12:29→22:07)
[2020-09-19] MEDS: amLODIPine 5 MG TAB PO SCH ×2 (12:34→21:12)
[2020-09-19] MEDS: PREGABALIN 75 MG CAP PO SCH ×2 (12:37→21:12)
[2020-09-19] MEDS: METOPROLOL SUCCINATE (ER) 50 MG TAB.ER.24H PO SCH (12:37)
[2020-09-19] MEDS ORDERED: DIPHENOX-ATROP 2.5-0.025 MG 1 EACH TAB PO PRN (13:59)
--- NOTE | 2020-09-19 15:28 | XR ---
EXAMINATION TYPE: XR elbow limited RT DATE OF EXAM: 09/19/2020 CLINICAL HISTORY: Pain with limited range of motion. TECHNIQUE: Frontal and lateral images of the right elbow are obtained. COMPARISON: Right elbow x-ray 8 days ago. FINDINGS: There is no acute fracture/dislocation evident in the right elbow. No abnormal fat pad si gns are seen. Mild to moderate diffuse soft tissue swelling and diffuse subcutaneous edema is redemo nstrated. Some articular calcification is present. IMPRESSION: As above. No significant change from prior.
--- NOTE | 2020-09-19 16:01 | US ---
EXAMINATION TYPE: US venous doppler duplex UE RT DATE OF EXAM: 09/19/2020 COMPARISON: US 20 days ago CLINICAL HISTORY: r/o dvt. Right arm pain SIDE PERFORMED: Right Right Arm: Appears negative for DVT Grayscale, color doppler, spectral doppler imaging performed of the deep veins of the right upper ext remity. There is normal flow, compressibility and vascular waveforms. IMPRESSION: No ultrasound evidence for acute deep or superficial venous thrombosis in the right upper extremity. No significant change from recent study.
--- NOTE | 2020-09-19 16:02 | PN ---
PROGRESS NOTE Patient is seen for followup for end-stage renal disease. She is currently seen on hemodialysis. Patient is tolerating her treatment well. She is complaining of pain in her right forearm. PHYSICAL EXAMINATION: On examination, blood pressure is 126/57, heart rate 79 per minute. Patient is afebrile. Exam reveals significant improvement in lower extremity edema. HOT WALKER exam is grossly intact. Abdomen is soft, nontender. LABS: Labs show hemoglobin 9.7 g/dL today. ASSESSMENT: 1. End-stage renal disease, on hemodialysis on a Thursday, Thursday, Thursday schedule. 2. Chronic kidney disease mineral bone disorder. Discussed with patient regarding importance of phosphate binders. 3. Nausea, vomiting and chronic diarrhea, status post evaluation by GI. Patient has had a colonoscopy and she is maintained on Questran, Lomotil and Bentyl. 4. Type 2 diabetes. 5. Hypertension, partly volume-sensitive, currently improved. Blood pressure was low early this morning. PLAN: UF about 3-4 L as tolerated. Next dialysis on 09/21/2020. MMODL / IJN: [id number] /
[2020-09-19 17:04] LABS: Glucose,Whole Blood 108 mg/dL (75-99)
[2020-09-19 17:38] LABS: African American GFR (CKD) 13.6 (60.0-200.0); Albumin 3.5 g/dL (3.80-4.90); Albumin/Globulin Ratio 1.09 (1.60-3.17); Anion Gap 14.7 mmol/L (4.00-12.00); BUN/Creat Ratio 10.98 Ratio (12.00-20.00); C Reactive Protein 3.1 mg/dL (0.0-0.8); Calcium 8.8 mg/dL (8.7-10.3); Carbon Dioxide 20.3 mmol/L (21.6-31.8); Globulin 3.2 g/dL (1.6-3.3); Magnesium 2.2 mg/dL (1.5-2.4); Non-African American GFR(CKD) 11.8 (60.0-200.0); Potassium 4.8 mmol/L (3.5-5.5); Total Protein 6.7 g/dL (6.2-8.2)
[2020-09-19 17:47] LABS: Erythrocyte Sedimentation Rate 68 mm/Hr (0-30)
[2020-09-19 20:25] LABS: Glucose,Whole Blood 147 mg/dL (75-99)
[2020-09-19] MEDS: HYDROcodone/APAP 5-325MG 1 EACH TAB PO PRN (21:12)
--- NOTE | 2020-09-20 00:25 | P.PN ---
Subjective This is a patient of Dr. Velasquez This is a pleasant 50 years old -[place] female with multiple medical problems as below, with multiple visits to the hospital and emergency room, this is the 6 visit in 2 months. Also she is ongoing cigarette smoker, she finishes a pack over 3-4 days and she states that she denies alcohol or illicit drugs. She is a patient of Dr. Velasquez. She presents because of ongoing diarrhea for more than a month, yesterday she had diarrhea at the dialysis center which was embarrassing for her so she came to the hospital. She has loose bowel movement between soft and watery about 8-9 times per day as patient describes, she vomited once yesterday and she complains from periumbilical abdominal pain. Also she is complaining of from heartburn every day. Vitas looks stable. Labs showing mild leukocytosis with WBC of 10.8 K, creatinine is elevated which is expected as she is dialysis patient. Sugars con trolled, or slightly elevated. Liver enzymes mildly elevated with AST 43 and ALT 42. Total bilirubin is also elevated at 1.9. C. diff test is negative EKG showing normal sinus rhythm at [address]-T changes. She had recent colonoscopy done on 09/11 showing moderate sigmoid diverticulosis with normal-appearing breast of the colon, the preparation was fair and not optimal, and GI team recommended to repeat colonoscopy as an outpatient at that time. 09/19/2020 Patient states that her abdominal pain and diarrhea feels better slightly after starting the antibiotics However she complains from right arm pain and mild swelling, extending from the right elbow down to the right wrist, patient denies trauma, Doppler shows negative for DVT, x-ray showing no elbow joint abnormality was subcutaneous edema and mild soft tissue swelling Patient is monitored closely by GI team, patient is planned to go for EGD on , Plavix and Eliquis are on hold, Hemodialysis per nephrology Continue with Levaquin and Flagyl. Physical therapy evaluation Review of Systems CONSTITUTIONAL: No fever, no malaise, no fatigue. HEENT: No recent visual problems or hearing problems. Denied any sore throat. CARDIOVASCULAR: No orthopnea, PND, no palpitations, no syncope. PULMONARY: No shortness of breath, no cough, no hemoptysis. GASTROINTESTINAL: No abdominal wall tenderness. Normoactive bowel sounds. NEUROLOGICAL: No headaches, no weakness, no numbness. Active Medications Generic Name Dose Route Start Last Admin Trade Name Freq PRN Reason Stop Dose Admin Hydrocodone Bitart/Acetaminophen 1 each 09/17/20 20:47 09/19/20 05:22 Hydrocodone/Apap 7.5-325mg 1 Each Tab PO 1 each DAILY PRN Administration Pain Hydrocodone Bitart/Acetaminophen 1 each 09/19/20 20:12 09/19/20 21:12 Hydrocodone/Apap 5-325mg 1 Each Tab PO 1 each Q6HR PRN Administration Pain Al Hydroxide/Mg Hydroxide 30 ml 09/18/20 11:06 09/18/20 20:16 Mag Hydrox/Al Hydrox/Simeth 30 Ml Cup PO 30 ml Q4HR PRN Administration GI Upset Amlodipine Besylate 5 mg 09/17/20 21:00 09/19/20 21:12 Amlodipine 5 Mg Tab PO 5 mg BID BENI Administration Calcium Acetate 667 mg 09/18/20 07:30 09/19/20 18:03 Calcium Acetate 667 Mg Tab PO 667 mg BID-W/MEALS BENI Administration Diphenhydramine HCl 25 mg 09/17/20 20:45 09/18/20 20:12 Diphenhydramine 25 Mg Cap PO 25 mg BID PRN Administration Itching Diphenoxylate HCl/Atropine 1 each 09/19/20 13:59 Diphenox-Atrop 2.5-0.025 Mg 1 Each Tab PO Q6HR PRN Diarrhea Hydralazine HCl 100 mg 09/17/20 22:00 09/19/20 22:07 Hydralazine Hcl 50 Mg Tab PO 100 mg TID BENI Administration Metronidazole 500 mg/ IV 100 mls @ 100 mls/hr 09/18/20 08:15 09/19/20 23:59 Solution IVPB 100 mls/hr Q8HR BENI Administration Insulin Aspart 0 unit 09/17/20 23:29 09/19/20 21:13 Insulin Aspart (Novolog) 100 Unit/Ml Vial SQ Not Given ACHS [facility] Protocol Levofloxacin 250 mg 09/21/20 09:00 Levofloxacin 250 Mg Tab PO Q48H BENI Loratadine 10 mg 09/18/20 09:00 09/19/20 08:35 Loratadine 10 Mg Tab PO 10 mg DAILY BENI Administration Metoprolol Succinate 50 mg 09/18/20 09:00 09/19/20 12:37 Metoprolol Succinate (Er) 50 Mg Tab.Er.24h PO 50 mg DAILY BENI Administration Nitroglycerin 0.4 mg 09/17/20 20:45 Nitroglycerin Sl Tabs 0.4 Mg Tab SUBLINGUAL Q5M PRN Chest Pain Ondansetron HCl 4 mg 09/17/20 15:31 Ondansetron 4 Mg/2 Ml Vial IVP Q6HR PRN Nausea And Vomiting Pantoprazole Sodium 40 mg 09/18/20 09:00 09/19/20 18:04 Pantoprazole 40 Mg Tablet PO Not Given AC-BID BENI Pregabalin 75 mg 09/17/20 21:00 09/19/20 21:12 Pregabalin 75 Mg Cap PO 75 mg BID BENI Administration Repaglinide 0.5 mg 09/18/20 07:30 09/19/20 18:04 Repaglinide 1 Mg Tab PO 0.5 mg AC-BID BENI Administration Zinc Acetate/Diphenhydramine 1 applic 09/17/20 21:00 09/19/20 21:15 Diphenhydramine 2% Cream 28.4 Gm Tube TOPICAL 1 applic BID BENI Administration Objective - Vital Signs Vital signs: Vital Signs Temp 98.3 F 09/20/20 00:01 Pulse 82 09/19/20 22:05 Resp 16 09/19/20 19:45 BP 122/93 09/19/20 22:05 Pulse Ox 95 09/19/20 22:05 Intake & Output 09/19/20 09/19/20 09/20/20 06:59 18:59 06:59 Intake Total 290 840 600 Output Total 3000 Balance 290 -2160 600 Intake: Intake, IV Titration 290 Amount Sodium Chloride 0.9% 1, 240 000 ml @ 20 mls/hr IV . Q24H ONE Rx#:[id number] metroNIDAZOLE-NS PMX 500 50 mg In Saline 1 100ml.bag @ 100 mls/hr IVPB Q8HR BENI Rx#:[id number] Oral 840 600 Output: Hemodialysis 3000 Other: Voiding Method Toilet Toilet Toilet # Voids 0 1 1 - Labs CBC & Chem 7: 09/19/20 08:50 09/19/20 08:50 Labs: Abnormal Lab Results - Last 24 Hours (Table) 09/19/20 09/19/20 09/19/20 Range/Units 07:09 08:50 08:50 RBC 3.30 L (3.80-5.40) m/uL Hgb 9.7 L (11.4-16.0) gm/dL Hct 30.5 L (34.0-46.0) % RDW 16.2 H (11.5-15.5) % Lymphocytes # 0.8 L (1.0-4.8) k/uL ESR 68 H (0-30) mm/Hr Carbon Dioxide 20.3 L (21.6-31.8) mmol/L Anion Gap 14.70 H (4.00-12.00) mmol/L BUN 45.0 H (9.0-27.0) mg/dL Creatinine 4.1 H (0.6-1.5) mg/dL Est GFR (CKD-EPI)AfAm 13.6 L (60.0-200.0) Est GFR (CKD-EPI)NonAf 11.8 L (60.0-200.0) BUN/Creatinine Ratio 10.98 L (12.00-20.00) Ratio Glucose 120 H (70-110) mg/dL POC Glucose (mg/dL) 134 H (75-99) mg/dL Total Bilirubin 2.0 H (0.2-1.2) mg/dL AST 48 H (13-35) U/L Alkaline Phosphatase 784 H (41-126) U/L C-Reactive Protein 3.1 H (0.0-0.8) mg/dL Albumin 3.50 L (3.80-4.90) g/dL Albumin/Globulin Ratio 1.09 L (1.60-3.17) g/dL 09/19/20 09/19/20 09/19/20 Range/Units 11:43 17:01 20:19 RBC (3.80-5.40) m/uL Hgb (11.4-16.0) gm/dL Hct (34.0-46.0) % RDW (11.5-15.5) % Lymphocytes # (1.0-4.8) k/uL ESR (0-30) mm/Hr Carbon Dioxide (21.6-31.8) mmol/L Anion Gap (4.00-12.00) mmol/L BUN (9.0-27.0) mg/dL Creatinine (0.6-1.5) mg/dL Est GFR (CKD-EPI)AfAm (60.0-200.0) Est GFR (CKD-EPI)NonAf (60.0-200.0) BUN/Creatinine Ratio (12.00-20.00) Ratio Glucose (70-110) mg/dL POC Glucose (mg/dL) 158 H 108 H 147 H (75-99) mg/dL Total Bilirubin (0.2-1.2) mg/dL AST (13-35) U/L Alkaline Phosphatase (41-126) U/L C-Reactive Protein (0.0-0.8) mg/dL Albumin (3.80-4.90) g/dL Albumin/Globulin Ratio (1.60-3.17) g/dL Assessment and Plan Assessment: Acute and chronic diarrhea with abdominal pain Right forearm cellulitis End-stage renal disease on hemodialysis Hypertension Chronic diarrhea Type 2 diabetes mellitus Sigmoid diverticulosis Chronic heart failure COPD, not in acute exacerbation history of CVA/TIA Hyperlipidemia History of cirrhosis and cholestatic liver with chronic bronchitis Irritable bowel syndrome Gastroparesis History of left leg DVT on Eliquis Factor V disorder History of lupus Chronic anemia Bilateral lower extremity claudication History of lumbar radiculopathy History of esophagitis History of GI bleed History of coronary artery disease status post CABG and stent placement Plan: This is a pleasant 50 years old female who presents with acute on chronic diarrhea, suspicious for gastroenteritis. She has recent negative workup however we will repeat workup for now. Check stool for C. diff, stool culture and WBC. Increase Protonix to twice a day. Start antibiotics empirically. EGD per GI team. Continue with antibiotics for Rt forearm cellulitis. Check hemoglobin A1c consult cardiology in view of persistent heartburn, ongoing smoking and history of coronary artery disease Labs and medication were reviewed.. Continue same treatment. Continue with symptomatic treatment. Resume home medication. Monitor lytes and vitals. DVT and GI prophylaxis. Further recommendations depends on the clinical course of the patient DVT prophylaxis: Eliquis GI Prophylaxis: Ppi Prognosis is guarded
[2020-09-20 06:26] LABS: Basophils # (A) 0.1 k/uL (0-0.2); Basophils % (A) 2 %; Eosinophils # (A) 0.2 k/uL (0-0.7); Eosinophils % (A) 3 %; HCT 29.5 % (34.0-46.0); HGB 9.4 gm/dL (11.4-16.0); Lymphocytes # (A) 0.8 k/uL (1.0-4.8); Lymphocytes % (A) 9 %; MCH 29.9 pg (25.0-35.0); MCHC 31.9 g/dL (31.0-37.0); MCV 93.7 fL (80.0-100.0); Mean Platelet Volume 8.9; Monocytes # (A) 0.4 k/uL (0-1.0); Monocytes % (A) 5 %; Neutrophils # (A) 6.6 k/uL (1.3-7.7); Neutrophils % (A) 80 %; Platelet Count 207 k/uL (150-450); RBC 3.15 m/uL (3.80-5.40); RDW 15.9 % (11.5-15.5); WBC 8.3 k/uL (3.8-10.6)
[2020-09-20 07:10] LABS: Glucose,Whole Blood 163 mg/dL (75-99)
[2020-09-20] MEDS: INSULIN ASPART (NovoLOG) 100 UNIT/ML VIAL SQ SCH ×4 (07:37→21:03)
[2020-09-20] MEDS: CALCIUM ACETATE 667 MG TAB PO SCH ×2 (07:37→17:14)
[2020-09-20] MEDS: PREGABALIN 75 MG CAP PO SCH ×2 (07:40→21:03)
[2020-09-20] MEDS: metroNIDAZOLE-NS PMX 500 MG in SALINE 1 100ML.BAG IVPB SCH ×2 (08:00→17:16)
[2020-09-20 09:44] LABS: African American GFR (CKD) 17.1 (60.0-200.0); Albumin 3.1 g/dL (3.80-4.90); Albumin/Globulin Ratio 1.19 (1.60-3.17); Anion Gap 12.3 mmol/L (4.00-12.00); Calcium 8.3 mg/dL (8.7-10.3); Carbon Dioxide 19.7 mmol/L (21.6-31.8); Globulin 2.6 g/dL (1.6-3.3); Non-African American GFR(CKD) 14.7 (60.0-200.0); Potassium 4.5 mmol/L (3.5-5.5); Total Bilirubin 1.6 mg/dL (0.3-1.2); Total Protein 5.7 g/dL (6.2-8.2)
[2020-09-20] MEDS ORDERED: AZTREONAM 2 GM in SODIUM CHLORIDE 0.9% 100 ML IVPB SCH (10:00)
[2020-09-20] MEDS: diphenhydrAMINE 2% CREAM 28.4 GM TUBE TOPICAL SCH ×2 (10:37→21:03)
[2020-09-20 11:32] LABS: Glucose,Whole Blood 125 mg/dL (75-99)
--- NOTE | 2020-09-20 12:11 | PN ---
PROGRESS NOTE Patient is seen for followup for end-stage renal disease. This morning she is lying in bed, comfortable, not in any acute distress. Patient tolerated her oral intake fairly well yesterday. PHYSICAL EXAMINATION: On examination today, blood pressure is 100/53, heart rate 68 per minute, patient is afebrile. She is euvolemic with no evidence of edema bilateral lower extremities. Abdomen is soft, nontender. LABS: Show sodium 135, potassium 4.5, hemoglobin 9.4 g/dL. ASSESSMENT: 1. End-stage renal disease, on hemodialysis on a Thursday, Thursday, Thursday schedule. 2. Volume overload, currently improved. 3. Nausea and vomiting also improved. Patient is scheduled for EGD today. 4. CKD mineral bone disorder with itching which seems to have improved and patient is maintained on phosphate binders. Her phosphorus was 6.2. 5. History of cholestatic liver and cirrhosis. 6. Chronic diarrhea. 7. Type 2 diabetes. PLAN: Hemodialysis in a.m. MMODL / IJN: [id number] /
[2020-09-20] MEDS: PANTOPRAZOLE 40 MG TABLET PO SCH ×2 (13:10→17:15)
[2020-09-20] MEDS: REPAGLINIDE 1 MG TAB PO SCH ×2 (13:10→17:14)
[2020-09-20] MEDS: amLODIPine 5 MG TAB PO SCH ×2 (13:11→21:03)
[2020-09-20] MEDS: hydrALAZINE HCL 50 MG TAB PO SCH ×3 (13:15→22:05)
[2020-09-20] MEDS ORDERED: LIDOCAINE 1% INJ 10MG/ML (20 ML MDV) ONE (14:14)
[2020-09-20] MEDS ORDERED: PROPOFOL 10 MG/ML 20 ML VIAL IV ONE (14:14)
[2020-09-20] MEDS ORDERED: IV FLUID CONTINUATION 150 ML IV ONE (14:25)
--- NOTE | 2020-09-20 14:36 | P.PCN ---
Date of Procedure: 09/20/20 Procedure(s) Performed: BRIEF HISTORY: Patient is a 50-year-old, pleasant, -Citizen Of [place] woman scheduled for an upper endoscopy as a part of evaluation of chronic diarrhea and abdominal pain of several months duration. Recent colonoscopy with BX results and biopsies were all all negative.. PROCEDURE PERFORMED: Esophagogastroduodenoscopy with biopsy. PREOPERATIVE DIAGNOSIS: Chronic abdominal pain and chronic diarrhea. IV sedation per anesthesia. PROCEDURE: After informed consent was obtained, the patient was brought into the endoscopy unit. IV sedation was administered by Anesthesia under continuous monitoring. Initially the Olympus GIF-140 video endoscope was inserted into the mouth. Esophagus intubated without any difficulty. It was gradually advanced into the stomach and duodenum and carefully examined. The bulb and the second part of the duodenum appeared normal. Multiple biopsies were done from the duodenum to rule out celiac disease. The scope at this time was withdrawn to the stomach, adequately insufflated with air, and upon careful examination, mucosa of the antrum, body, cardia and the fundus appeared normal. The scope was then withdrawn into the esophagus. The GE junction was located at 39 cm from the incisors. They revealed linear erosions with once position ulcerations in the distal esophagus consistent with LA grade C reflux esophagitis. Rest of esophagus appeared normal and the patient tolerated the procedure well. IMPRESSION: 1. LA grade C reflux esophagitis. 2. Normal-appearing duodenum status post multiple biopsies to rule out small bowel pathology. RECOMMENDATIONS: The findings of this examination were discussed with the patient . She was advised to follow with the biopsy results. In the meantime she will continue with her current medications and use antimotility agents as needed for the chronic diarrhea..
[2020-09-20] MEDS: METOPROLOL SUCCINATE (ER) 50 MG TAB.ER.24H PO SCH (15:53)
[2020-09-20] MEDS: HYDROcodone/APAP 7.5-325MG 1 EACH TAB PO PRN (15:54)
[2020-09-20 17:09] LABS: Glucose,Whole Blood 177 mg/dL (75-99)
[2020-09-20] MEDS: LORATADINE 10 MG TAB PO SCH (17:14)
[2020-09-20 20:31] LABS: Glucose,Whole Blood 281 mg/dL (75-99)
[2020-09-20] MEDS: APIXABAN 2.5 MG TABLET PO SCH (21:03)
[2020-09-20] MEDS: AZTREONAM 1 GM in SODIUM CHLORIDE 0.9% 50 ML IVPB SCH (21:12)
[2020-09-21] MEDS: metroNIDAZOLE-NS PMX 500 MG in SALINE 1 100ML.BAG IVPB SCH ×3 (00:23→19:31)
[2020-09-21] MEDS: HYDROcodone/APAP 5-325MG 1 EACH TAB PO PRN (05:46)
[2020-09-21 07:07] LABS: Glucose,Whole Blood 126 mg/dL (75-99)
[2020-09-21] MEDS: LORATADINE 10 MG TAB PO SCH (08:27)
[2020-09-21] MEDS: PANTOPRAZOLE 40 MG TABLET PO SCH ×3 (08:27→18:07)
[2020-09-21] MEDS: CLOPIDOGREL 75 MG TAB PO SCH (08:27)
[2020-09-21] MEDS: REPAGLINIDE 1 MG TAB PO SCH ×2 (08:27→19:31)
[2020-09-21] MEDS: CALCIUM ACETATE 667 MG TAB PO SCH ×2 (08:27→18:06)
[2020-09-21] MEDS: APIXABAN 2.5 MG TABLET PO SCH ×2 (08:28→21:42)
[2020-09-21] MEDS: PREGABALIN 75 MG CAP PO SCH ×2 (08:28→21:43)
[2020-09-21] MEDS: INSULIN ASPART (NovoLOG) 100 UNIT/ML VIAL SQ SCH ×4 (08:28→21:43)
[2020-09-21] MEDS: diphenhydrAMINE 2% CREAM 28.4 GM TUBE TOPICAL SCH ×2 (08:29→21:42)
[2020-09-21] MEDS ORDERED: LEVOFLOXACIN 250 MG TAB PO SCH (09:00)
--- NOTE | 2020-09-21 09:08 | P.PN ---
Subjective Progress Note Date: 09/21/20 Principal diagnosis: Chronic Diarrhea Patient was seen and examined at the bedside. She denies any diarrhea and started on antibiotics. She denies any nausea or vomiting. States she has right arm pain. She is scheduled for hemodialysis today. She is status post upper and lower endoscopy this admission. She's been restarted on her anticoagulation. Labs are pending. Objective - Vital Signs Vital signs: Vital Signs Temp 98 F 09/21/20 07:08 Pulse 85 09/21/20 07:08 Resp 14 09/21/20 07:08 BP 133/74 09/21/20 07:08 Pulse Ox 97 09/21/20 05:00 Intake & Output 09/20/20 09/21/20 09/21/20 18:59 06:59 18:59 Intake Total 50 1040 Balance 50 1040 Intake: IV 50 Intake, IV Titration 150 Amount Aztreonam 1 gm In Sodium 50 Chloride 0.9% 50 ml @ 16. 667 mls/hr IVPB Q12HR BENI Rx#:[id number] metroNIDAZOLE-NS PMX 500 100 mg In Saline 1 100ml.bag @ 100 mls/hr IVPB Q8HR BENI Rx#:[id number] Oral 890 Other: Voiding Method Toilet Toilet # Voids 1 1 - Exam General appearance: The patient is alert, oriented, in no acute distress. HET: Head is normocephalic and atraumatic. Conjunctiva pink. Sclera anicteric. Neck: Supple without lymphadenopathy. Abdomen: Soft, difuse mild tenderness, nondistended with bowel sounds. No guarding or rigidity. Extremities: Normal skin color and turgor. Nodular skin rash on the bilateral upper extremities and back. No pedal edema Neurological: No focal deficits. Alert and oriented 3. - Labs CBC & Chem 7: 09/20/20 06:06 09/20/20 06:06 Labs: Abnormal Lab Results - Last 24 Hours (Table) 09/20/20 09/20/20 09/20/20 Range/Units 06:06 11:30 17:08 Carbon Dioxide 19.7 L (21.6-31.8) mmol/L Anion Gap 12.30 H (4.00-12.00) mmol/L BUN 34.0 H (9.0-27.0) mg/dL Creatinine 3.4 H (0.6-1.5) mg/dL Est GFR (CKD-EPI)AfAm 17.1 L (60.0-200.0) Est GFR (CKD-EPI)NonAf 14.7 L (60.0-200.0) BUN/Creatinine Ratio 10.00 L (12.00-20.00) Ratio Glucose 172 H (70-110) mg/dL POC Glucose (mg/dL) 125 H 177 H (75-99) mg/dL Calcium 8.3 L (8.7-10.3) mg/dL Total Bilirubin 1.6 H (0.3-1.2) mg/dL AST 45 H (13-35) U/L Alkaline Phosphatase 724 H (41-126) U/L Total Protein 5.7 L (6.2-8.2) g/dL Albumin 3.10 L (3.80-4.90) g/dL Albumin/Globulin Ratio 1.19 L (1.60-3.17) g/dL 09/20/20 09/21/20 Range/Units 20:23 07:04 Carbon Dioxide (21.6-31.8) mmol/L Anion Gap (4.00-12.00) mmol/L BUN (9.0-27.0) mg/dL Creatinine (0.6-1.5) mg/dL Est GFR (CKD-EPI)AfAm (60.0-200.0) Est GFR (CKD-EPI)NonAf (60.0-200.0) BUN/Creatinine Ratio (12.00-20.00) Ratio Glucose (70-110) mg/dL POC Glucose (mg/dL) 281 H 126 H (75-99) mg/dL Calcium (8.7-10.3) mg/dL Total Bilirubin (0.3-1.2) mg/dL AST (13-35) U/L Alkaline Phosphatase (41-126) U/L Total Protein (6.2-8.2) g/dL Albumin (3.80-4.90) g/dL Albumin/Globulin Ratio (1.60-3.17) g/dL Assessment and Plan Assessment: 1. Chronic diarrhea for the last 3 months duration. Patient was initially having intermittent diarrhea but clearly has been having daily, up to 8-10 times a day describes as loose and watery in consistency with no blood or mucus. The workup she has had a celiac panel done a few months ago that was negative, s tool studies on 2 different occasions were negative. Colonoscopy by Dr. Nolne 2 weeks ago which showed. Sigmoid diverticulosis otherwise normal colon. Biopsies were taken and showed benign normal mucosa. She was treated empirically with Bentyl, Lomotil and Questran with no help. Other etiologies of chronic diarrhea need to be considered. Rule out small bowel mucosal pathology. Rule out chronic pancreatitis. Rule out neuroendocrine causes of diarrhea. She has been unable to give any stool samples since admission. She has status post upper endoscopy which revealed LA grade C esophagitis. Patient to continue PPI. Patient to follow-up for biopsy results. 2. End-stage renal disease on hemodialysis 3. Atrial fibrillation on Eliquis 4. History of elevated liver function tests, status post liver biopsy done 4 months ago at the time of gallbladder surgery that showed evidence of chronic venous outflow obstruction 5. Long-standing history of diabetes mellitus 6. Hypertension Plan: 1. Medication review completed, Reglan discontinued 2. Continue Lomotil PRN, can add questran and bently if symptoms resturn 3. Obtain stool studies for elastase to evaluate for chronic pancreatitis 4. Upper and lower endoscopy performed this admission 5. Restart Eliquis and Plavix 6. Consistent carbohydrate diet 7. Obtain stool OVA/PARASITE 8. Patient may be discharged home from a gastroenterology standpoint. Patient should continue with the proton pump inhibitor, can try omeprazole as patient states protonix does not make her feel well. Patient instructed to follow-up with gastroenterology for biopsy results. We will sign off at this time. The impression and plan of care has been dictated as directed. Dr. Polo Otto I performed a history and examination of this patient, discussed the same with the dictator. I agree with the dictator's note ,documented as a scribe. Any additional findings or plans will be noted.
[2020-09-21] MEDS: AZTREONAM 1 GM in SODIUM CHLORIDE 0.9% 50 ML IVPB SCH ×2 (09:54→21:42)
[2020-09-21] MEDS ORDERED: DARBEPOETIN ALFA 40 MCG/0.4 ML SYRINGE SQ SCH (10:30)
--- NOTE | 2020-09-21 11:47 | P.PN ---
Subjective This is a patient of Dr. Velasquez This is a pleasant 50 years old -[place] female with multiple medical problems as below, with multiple visits to the hospital and emergency room, this is the 6 visit in 2 months. Also she is ongoing cigarette smoker, she finishes a pack over 3-4 days and she states that she denies alcohol or illicit drugs. She is a patient of Dr. Velasquez. She presents because of ongoing diarrhea for more than a month, yesterday she had diarrhea at the dialysis center which was embarrassing for her so she came to the hospital. She has loose bowel movement between soft and watery about 8-9 times per day as patient describes, she vomited once yesterday and she complains from periumbilical abdominal pain. Also she is complaining of from heartburn every day. Vitas looks stable. Labs showing mild leukocytosis with WBC of 10.8 K, creatinine is elevated which is expected as she is dialysis patient. Sugars con trolled, or slightly elevated. Liver enzymes mildly elevated with AST 43 and ALT 42. Total bilirubin is also elevated at 1.9. C. diff test is negative EKG showing normal sinus rhythm at [address]-T changes. She had recent colonoscopy done on 09/11 showing moderate sigmoid diverticulosis with normal-appearing breast of the colon, the preparation was fair and not optimal, and GI team recommended to repeat colonoscopy as an outpatient at that time. 09/19/2020 Patient states that her abdominal pain and diarrhea feels better slightly after starting the antibiotics However she complains from right arm pain and mild swelling, extending from the right elbow down to the right wrist, patient denies trauma, Doppler shows negative for DVT, x-ray showing no elbow joint abnormality was subcutaneous edema and mild soft tissue swelling Patient is monitored closely by GI team, patient is planned to go for EGD on , Plavix and Eliquis are on hold, Hemodialysis per nephrology Continue with Levaquin and Flagyl. Physical therapy evaluation 09/20/2020 Patient is abdominal pain is improving, diarrhea stopped for the last 2 days, she does not have bowel movements and yesterday. Right arm swelling, warmth and redness is improving, however cystoscopy complaining from pain and some tenderness in her right forearm, also her rash is coming down, patient states all her symptoms started improving once she was started on antibiotic, currently continued on aztreonam and Flagyl due to her multiple medical ALLERGIES to antibiotics EGD yesterday showed reflux esophagitis, patient informed with the diagnosis and treatment and she agrees, continue with antiacids Vitals and labs are stable, sugar control. Patient resumed her Eliquis and Plavix after EGD Objective - Vital Signs Vital signs: Vital Signs Temp 98.6 F 09/21/20 11:25 Pulse 80 09/21/20 11:25 Resp 15 09/21/20 11:25 BP 145/85 09/21/20 11:25 Pulse Ox 97 09/21/20 05:00 Intake & Output 09/20/20 09/21/20 09/21/20 18:59 06:59 18:59 Intake Total 50 1040 Balance 50 1040 Intake: IV 50 Intake, IV Titration 150 Amount Aztreonam 1 gm In Sodium 50 Chloride 0.9% 50 ml @ 16. 667 mls/hr IVPB Q12HR [facility] Rx#:[id number] metroNIDAZOLE-NS PMX 500 100 mg In Saline 1 100ml.bag @ 100 mls/hr IVPB Q8HR [facility] Rx#:[id number] Oral 890 Other: Voiding Method Toilet Toilet Toilet # Voids 1 1 - Exam GENERAL: The patient is alert and oriented x3, not in any acute distress. Well developed, well nourished. HEENT: Pupils are round and equally reacting to light. EOMI. No scleral icterus. No conjunctival pallor. Normocephalic, atraumatic. No pharyngeal erythema. No thyromegaly. CARDIOVASCULAR: S1 and S2 present. No murmurs, rubs, or gallops. PULMONARY: Chest is clear to auscultation, no wheezing or crackles. -ABDOMEN: Soft, lower abdominal tenderness with no rebound tenderness or guarding, nondistended, normoactive bowel sounds. No palpable organomegaly. MUSCULOSKELETAL: No joint swelling or deformity. -EXTREMITIES: No cyanosis, clubbing, or pedal edema. Right forearm is less swollen, warm or red, however her drying machine back tender NEUROLOGICAL: Gross neurological examination did not reveal any focal deficits. SKIN: No rashes. No petechiae - Labs CBC & Chem 7: 09/20/20 06:06 09/20/20 06:06 Labs: Abnormal Lab Results - Last 24 Hours (Table) 09/20/20 09/20/20 09/21/20 Range/Units 17:08 20:23 07:04 POC Glucose (mg/dL) 177 H 281 H 126 H (75-99) mg/dL Assessment and Plan Assessment: Acute and chronic diarrhea with abdominal pain Right forearm cellulitis End-stage renal disease on hemodialysis Hypertension Chronic diarrhea Type 2 diabetes mellitus Sigmoid diverticulosis Chronic heart failure COPD, not in acute exacerbation history of CVA/TIA Hyperlipidemia History of cirrhosis and cholestatic liver with chronic bronchitis Irritable bowel syndrome Gastroparesis History of left leg DVT on Eliquis Factor V disorder History of lupus Chronic anemia Bilateral lower extremity claudication History of lumbar radiculopathy History of esophagitis History of GI bleed History of coronary artery disease status post CABG and stent placement Plan: This is a pleasant 50 years old female who presents with acute on chronic diarrhea, suspicious for gastroenteritis. She has recent negative workup however we will repeat workup for now. Check stool for C. diff, stool culture and WBC. Increase Protonix to twice a day. Start antibiotics empirically. EGD per GI team. Continue with antibiotics for Rt forearm cellulitis. Check hemoglobin A1c consult cardiology in view of persistent heartburn, ongoing smoking and history of coronary artery disease Labs and medication were reviewed.. Continue same treatment. Continue with symptomatic treatment. Resume home medication. Monitor lytes and vitals. DVT and GI prophylaxis. Further recommendations depends on the clinical course of the patient DVT prophylaxis: Eliquis GI Prophylaxis: Ppi Prognosis is guarded
[2020-09-21 11:48] LABS: Glucose,Whole Blood 212 mg/dL (75-99)
--- NOTE | 2020-09-21 11:48 | PN ---
PROGRESS NOTE Patient is seen for followup for end-stage renal disease. She is scheduled for hemodialysis today. Patient denies any significant complaints. She states she is feeling better. Patient had upper and lower endoscopy done yesterday by Dr. Otto. She was found to have grade C reflux esophagitis, and biopsies were taken from the duodenum. PHYSICAL EXAMINATION: On examination today, blood pressure is 133/74, heart rate 85 per minute, she is afebrile. Examination of the heart S1, S2. Examination of the lungs, bilateral breath sounds are heard. Abdomen is soft, nontender. Examination of the lower extremities shows no significant edema. 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 LABS: From yesterday show potassium 4.5, sodium 135. ASSESSMENT: 1. End-stage renal disease, on hemodialysis on a Thursday, Thursday, Thursday schedule. Will arrange for hemodialysis today. 2. CKD mineral bone disorder. 3. Nausea and vomiting and chronic diarrhea, being followed by GI, noted to have reflux esophagitis. The patient is maintained on therapy including proton pump inhibitors. 4. Anemia of chronic disease maintained on Aranesp. 5. Hypertension, partly volume sensitive, currently controlled. 6. Volume overload, now improved. PLAN: Hemodialysis today. Goal UF of about 2 L. MMODL / IJN: [id number] /
[2020-09-21] MEDS: amLODIPine 5 MG TAB PO SCH ×2 (12:30→21:42)
[2020-09-21] MEDS: hydrALAZINE HCL 50 MG TAB PO SCH ×3 (12:30→21:43)
[2020-09-21 17:28] LABS: Glucose,Whole Blood 108 mg/dL (75-99)
[2020-09-21] MEDS: HYDROcodone/APAP 7.5-325MG 1 EACH TAB PO PRN (17:46)
[2020-09-21] MEDS: METOPROLOL SUCCINATE (ER) 50 MG TAB.ER.24H PO SCH (19:31)
[2020-09-21 21:36] LABS: Glucose,Whole Blood 277 mg/dL (75-99)
[2020-09-22] MEDS: metroNIDAZOLE-NS PMX 500 MG in SALINE 1 100ML.BAG IVPB SCH ×4 (00:59→23:40)
[2020-09-22] MEDS: HYDROcodone/APAP 5-325MG 1 EACH TAB PO PRN ×3 (03:19→22:30)
[2020-09-22 06:04] LABS: Basophils # (A) 0.1 k/uL (0-0.2); Basophils % (A) 1 %; Eosinophils # (A) 0.2 k/uL (0-0.7); Eosinophils % (A) 2 %; HCT 28.7 % (34.0-46.0); HGB 9.2 gm/dL (11.4-16.0); Lymphocytes # (A) 0.8 k/uL (1.0-4.8); Lymphocytes % (A) 8 %; MCH 29.5 pg (25.0-35.0); MCV 92.2 fL (80.0-100.0); Mean Platelet Volume 9.4; Monocytes # (A) 0.5 k/uL (0-1.0); Monocytes % (A) 5 %; Neutrophils % (A) 83 %; Platelet Count 201 k/uL (150-450); RBC 3.11 m/uL (3.80-5.40); RDW 15.5 % (11.5-15.5); WBC 9.7 k/uL (3.8-10.6)
[2020-09-22 07:58] LABS: Glucose,Whole Blood 113 mg/dL (75-99)
[2020-09-22] MEDS: INSULIN ASPART (NovoLOG) 100 UNIT/ML VIAL SQ SCH ×4 (08:14→21:39)
[2020-09-22] MEDS: APIXABAN 2.5 MG TABLET PO SCH ×2 (08:16→21:39)
[2020-09-22] MEDS: REPAGLINIDE 1 MG TAB PO SCH ×2 (08:16→17:19)
[2020-09-22] MEDS: PREGABALIN 75 MG CAP PO SCH ×2 (08:16→21:39)
[2020-09-22] MEDS: amLODIPine 5 MG TAB PO SCH ×3 (08:16→21:41)
[2020-09-22] MEDS: METOPROLOL SUCCINATE (ER) 50 MG TAB.ER.24H PO SCH (08:16)
[2020-09-22] MEDS: CALCIUM ACETATE 667 MG TAB PO SCH ×2 (08:16→17:19)
[2020-09-22] MEDS: CLOPIDOGREL 75 MG TAB PO SCH (08:16)
[2020-09-22] MEDS: PANTOPRAZOLE 40 MG TABLET PO SCH ×2 (08:16→17:19)
[2020-09-22] MEDS: hydrALAZINE HCL 50 MG TAB PO SCH ×4 (08:16→21:41)
[2020-09-22] MEDS: LORATADINE 10 MG TAB PO SCH (08:16)
[2020-09-22] MEDS: diphenhydrAMINE 2% CREAM 28.4 GM TUBE TOPICAL SCH ×2 (08:17→20:44)
[2020-09-22 08:46] LABS: ALT 33 U/L (4-34); AST 43 U/L (14-36); African American GFR (CKD) 18 (>60 ml/min/1.73 sqM); Albumin 2.8 g/dL (3.5-5.0); Albumin/Globulin Ratio 0.8; Alkaline Phosphatase 587 U/L (38-126); Anion Gap 8 mmol/L; Blood Urea Nitrogen 31 mg/dL (7-17); Calcium 7.9 mg/dL (8.4-10.2); Carbon Dioxide 23 mmol/L (22-30); Chloride 100 mmol/L (98-107); Globulin 3.3 g/dL; Glucose 94 mg/dL (74-99); Magnesium 1.8 mg/dL (1.6-2.3); Non-African American GFR(CKD) 16 (>60 ml/min/1.73 sqM); Potassium 4.3 mmol/L (3.5-5.1); Sodium 131 mmol/L (137-145); Total Bilirubin 1.8 mg/dL (0.2-1.3); Total Protein 6.1 g/dL (6.3-8.2)
[2020-09-22] MEDS: AZTREONAM 1 GM in SODIUM CHLORIDE 0.9% 50 ML IVPB SCH ×2 (09:54→19:54)
--- NOTE | 2020-09-22 10:43 | P.PN ---
Subjective Patient is seen in follow-up for her incisional disease. She is maintained on hemodialysis on Thursday schedule. Tolerating oral intake. No chest pain or shortness of breath. Edema improved. Blood pressure low this morning. Vital signs are stable. General: The patient appeared well nourished and normally developed. HEENT: Head exam is unremarkable. Neck is without jugular venous distension. LUNGS: Lungs are clear to auscultation and percussion. Breath sounds decreased. HEART: Rate and Rhythm are regular. First and second heart sounds normal. No murmurs, rubs or gallops. ABDOMEN: Abdominal exam reveals normal bowel sounds. Non-tender and non- distended. No evidence of peritonitis. EXTREMITITES: No clubbing, cyanosis, or edema. Objective - Vital Signs Vital signs: Vital Signs Temp 98.0 F 09/22/20 05:00 Pulse 82 09/22/20 05:00 Resp 18 09/22/20 05:00 BP 84/61 09/22/20 05:00 Pulse Ox 100 09/22/20 05:00 Intake & Output 09/21/20 09/22/20 09/22/20 18:59 06:59 18:59 Intake Total 1140 Output Total 2500 Balance -2500 1140 Intake: Intake, IV Titration 250 Amount Aztreonam 1 gm In Sodium 50 Chloride 0.9% 50 ml @ 16. 667 mls/hr IVPB Q12HR [facility] Rx#:[id number] metroNIDAZOLE-NS PMX 500 200 mg In Saline 1 100ml.bag @ 100 mls/hr IVPB Q8HR [facility] Rx#:[id number] Oral 890 Output: Hemodialysis 2500 Other: Voiding Method Toilet Toilet # Voids 1 2 - Labs CBC & Chem 7: 09/22/20 05:28 09/22/20 05:28 Labs: Abnormal Lab Results - Last 24 Hours (Table) 09/21/20 09/21/20 09/21/20 Range/Units 11:32 17:17 21:33 RBC (3.80-5.40) m/uL Hgb (11.4-16.0) gm/dL Hct (34.0-46.0) % Neutrophils # (1.3-7.7) k/uL Lymphocytes # (1.0-4.8) k/uL Sodium (137-145) mmol/L BUN (7-17) mg/dL Creatinine (0.52-1.04) mg/dL POC Glucose (mg/dL) 212 H 108 H 277 H (75-99) mg/dL Calcium (8.4-10.2) mg/dL Total Bilirubin (0.2-1.3) mg/dL AST (14-36) U/L Alkaline Phosphatase (38-126) U/L Total Protein (6.3-8.2) g/dL Albumin (3.5-5.0) g/dL 09/22/20 09/22/20 09/22/20 Range/Units 05:28 05:28 07:56 RBC 3.11 L (3.80-5.40) m/uL Hgb 9.2 L (11.4-16.0) gm/dL Hct 28.7 L (34.0-46.0) % Neutrophils # 8.0 H (1.3-7.7) k/uL Lymphocytes # 0.8 L (1.0-4.8) k/uL Sodium 131 L (137-145) mmol/L BUN 31 H (7-17) mg/dL Creatinine 3.24 H (0.52-1.04) mg/dL POC Glucose (mg/dL) 113 H (75-99) mg/dL Calcium 7.9 L (8.4-10.2) mg/dL Total Bilirubin 1.8 H (0.2-1.3) mg/dL AST 43 H (14-36) U/L Alkaline Phosphatase 587 H (38-126) U/L Total Protein 6.1 L (6.3-8.2) g/dL Albumin 2.8 L (3.5-5.0) g/dL Assessment and Plan Plan: Assessment: 1. End-stage renal disease maintained on hemodialysis on Thursday schedule. 2. Nausea vomiting and chronic diarrhea. GI following. Noted to have reflux esophagitis. Also on antibiotics. 3. Anemia of chronic kidney disease maintained on Aranesp. 4. Volume overload improved with ultrafiltration. 5. Hypertension with chronic kidney disease. Blood pressure on the lower side this morning. 6. Chronic kidney disease mineral bone disease maintained on PhosLo. Plan: Hemodialysis Thursday. Hold antihypertensives for systolic blood pressure less than 120.
[2020-09-22 11:56] LABS: Glucose,Whole Blood 206 mg/dL (75-99)
--- NOTE | 2020-09-22 12:28 | PN ---
PROGRESS NOTE DATE OF DICTATION: September 22, 2020 Patient is a 50-year-old female admitted to hospital with severe diarrhea for the last several months duration. She was treated empirically with antibiotics and since then, her diarrhea has completely resolved. She had one bowel movement yesterday. She reports no abdominal pain. No nausea, no vomiting. PHYSICAL EXAMINATION: Appears comfortable, no apparent distress. Vital signs stable. Blood pressure 84/61, pulse rate 82, temperature 98. HEENT examination unremarkable. Conjunctivae pink. Sclerae anicteric. Oral cavity no lesions. NECK: No JVD. CHEST was clear to auscultation. HEART: Regular rate and rhythm. ABDOMEN: Soft, it was nontender, nondistended. Bowel sounds are positive. No organomegaly. EXTREMITIES: No pedal edema. NEURO: She is alert and oriented x3. No focal deficits. LABS: From today WBC 9.7, hemoglobin 9.2, platelets normal. Basic metabolic panel, BUN 31, creatinine 3.2. T-Bilirubin is 1.8, AST 43, ALT 33, alkaline phosphatase 586. IMPRESSION: 1. Chronic diarrhea of several months duration, completely resolved. She was treated empirically with antibiotics and her symptoms have improved. 2. End-stage renal disease, on hemodialysis. 3. Longstanding history of diabetes mellitus. 4. Hypertension. RECOMMENDATION: 1. Continue empiric antibiotics. 2. Advance diet as tolerated. 3. Use motility agents as needed if she has recurrent diarrhea. 4. We will follow with you closely. Thank you for this consultation. MMAMAIRANIL / ELSYN: [id number] /
--- NOTE | 2020-09-22 13:03 | US ---
EXAMINATION TYPE: US venous doppler duplex LE RT DATE OF EXAM: 09/22/2020 11:56 AM COMPARISON: NONE CLINICAL HISTORY: R/O DVT. Pain. SIDE PERFORMED: Right TECHNIQUE: The lower extremity deep venous system is examined utilizing real time linear array sonog erika with graded compression, doppler sonography and color-flow sonography. VESSELS IMAGED: External Iliac Vein (EIV) Common Femoral Vein Deep Femoral Vein Greater Saphenous Vein * Femoral Vein Popliteal Vein Proximal Calf Veins (* superficial vessels) Right Leg: Negative for DVT Grayscale, color doppler, spectral doppler imaging performed of the deep veins of the right lower ext remity. There is normal flow, compressibility, vascular waveforms. IMPRESSION: No ultrasound evidence for acute DVT in the right lower extremity.
--- NOTE | 2020-09-22 13:04 | US ---
EXAMINATION TYPE: US extremity nonvasculr ltd RT DATE OF EXAM: 09/22/2020 COMPARISON: NONE CLINICAL HISTORY: RUE r/o abscess. Focal pain and swelling. Right forearm pain and swelling. Scanning was performed over area of pain and swelling, right forearm as pointed out by patient. The l eft side was scanned for comparison purposes. No suspicious focal fluid collection identified. IMPRESSION: As above. No well-formed thick-walled fluid collection to suggest abscess at area of foc al swelling in the forearm.
[2020-09-22 17:29] LABS: Glucose,Whole Blood 140 mg/dL (75-99)
[2020-09-22 21:02] LABS: Glucose,Whole Blood 184 mg/dL (75-99)
[2020-09-23] MEDS: HYDROcodone/APAP 5-325MG 1 EACH TAB PO PRN ×2 (05:21→21:36)
[2020-09-23 07:24] LABS: Glucose,Whole Blood 152 mg/dL (75-99)
[2020-09-23] MEDS: INSULIN ASPART (NovoLOG) 100 UNIT/ML VIAL SQ SCH ×4 (09:03→21:37)
[2020-09-23] MEDS: APIXABAN 2.5 MG TABLET PO SCH ×2 (09:04→21:36)
[2020-09-23] MEDS: CLOPIDOGREL 75 MG TAB PO SCH (09:04)
[2020-09-23] MEDS: REPAGLINIDE 1 MG TAB PO SCH ×2 (09:04→17:42)
[2020-09-23] MEDS: PANTOPRAZOLE 40 MG TABLET PO SCH ×2 (09:05→16:34)
[2020-09-23] MEDS: LORATADINE 10 MG TAB PO SCH (09:05)
[2020-09-23] MEDS: metroNIDAZOLE-NS PMX 500 MG in SALINE 1 100ML.BAG IVPB SCH (09:05)
[2020-09-23] MEDS: CALCIUM ACETATE 667 MG TAB PO SCH ×2 (09:05→17:42)
[2020-09-23] MEDS: PREGABALIN 75 MG CAP PO SCH ×2 (09:05→21:36)
[2020-09-23] MEDS: diphenhydrAMINE 2% CREAM 28.4 GM TUBE TOPICAL SCH ×2 (09:08→21:25)
[2020-09-23] MEDS: METOPROLOL SUCCINATE (ER) 50 MG TAB.ER.24H PO SCH (09:14)
[2020-09-23] MEDS: amLODIPine 5 MG TAB PO SCH ×2 (09:14→21:36)
[2020-09-23] MEDS: hydrALAZINE HCL 50 MG TAB PO SCH ×3 (09:14→21:36)
--- NOTE | 2020-09-23 09:58 | PN ---
PROGRESS NOTE DATE OF SERVICE: 09/23/2020 Patient is a 50-year-old female with end-stage renal disease, on hemodialysis, admitted to the hospital with severe diarrhea. For the last 4 days she has no more bowel movements, in fact, she is more constipated today. She denies any abdominal pain. She reports no nausea, vomiting. Overall she is doing well. As a part of evaluation of diarrhea, she did have an upper endoscopy by me 2 days ago with multiple duodenal biopsies which are still pending at the time of this dictation. She denies any new symptoms. PHYSICAL EXAMINATION: Appears comfortable, no apparent distress. VITAL SIGNS: Stable. Blood pressure is 99/69, pulse rate 79, temperature 98.1. HEENT: Examination unremarkable. Conjunctivae are pink. Sclerae anicteric. Oral cavity no lesions. NECK: No JVD or lymph node enlargement. CHEST: Clear to auscultation. HEART: Regular rate and rhythm. ABDOMEN: Soft, it was nontender, nondistended. Bowel sounds are positive. EXTREMITIES: No pedal edema. NEUROLOGIC: Alert and oriented x3. No focal deficits. LABS: WBC 9.7, hemoglobin 9.2, platelets normal. Basic metabolic panel is within normal limits. T-bilirubin 1.8, AST 43, ALT 43, and alkaline phosphatase 587. IMPRESSION: 1. Altered bowel movements with alternating diarrhea and constipation. The patient was admitted to the hospital with severe diarrhea which has now resolved, in fact she had no bowel movements for the last 4 days. Stool studies so far have been negative. EGD with small bowel biopsies as a part of evaluation of diarrhea are still pending. Overall she is doing well. 2. End-stage renal disease on hemodialysis. 3. Elevated LFTs secondary to passive venous congestion/outflow obstruction on a liver biopsy done in July of 2020. 4. History of hypertension. RECOMMENDATIONS: 1. Continue with symptomatic and supportive care. 2. Await biopsy results of recent upper endoscopy. 3. Use laxatives as needed. 4. Stop antimotility agents. 5. Will sign off at this time. Please call us if needed. Thank you for this consultation. MMODL / IJN: [id number] /
--- NOTE | 2020-09-23 10:39 | P.PN ---
Subjective Progress Note Date: 09/22/20 Principal diagnosis: Acute on Chronic diarrhea, Right forearm cellulitis Ms. Singh is a female past medical history of COPD, DVT, diabetes mellitus, ESRD on hemodialysis, peripheral arterial disease, lumbar radiculopathy, asthma, hypertension, hyperlipidemia coming into the hospital with a chief complaint of ongoing diarrhea for more than 1 month. She has been tested negative for C. diff. Patient had recent colonoscopy done showing moderate sigmoid diverticulosis with normal-appearing:, The preparation was face and not optimal and so GI recommended to repeat colonoscopy as outpatient at that time. On 09/22/2020 - patient is comfortably sleeping in her bed appears to be in acute distress. No acute events reported by nursing staff. Patient states that her diarrhea has improved. But she continues to have pain in her right forearm. Patient denies having any chest pain or palpitations. No cough or difficulty breathing. No abdominal pain nausea or vomiting. She denies any swelling of her lower extremities. On reviewing the vitals afebrile for the past 24 hours. Patient is on aztreonam and Flagyl due to multiple medical ALLERGIES to antibiotics. Objective - Vital Signs Vital signs: Vital Signs Temp 98.6 F 09/22/20 12:11 Pulse 73 09/22/20 12:11 Resp 17 09/22/20 12:11 BP 102/59 09/22/20 12:11 Pulse Ox 97 09/22/20 12:11 Intake & Output 09/21/20 09/22/20 09/22/20 18:59 06:59 18:59 Intake Total 1140 Output Total 2500 Balance -2500 1140 Intake: Intake, IV Titration 250 Amount Aztreonam 1 gm In Sodium 50 Chloride 0.9% 50 ml @ 16. 667 mls/hr IVPB Q12HR [facility] Rx#:[id number] metroNIDAZOLE-NS PMX 500 200 mg In Saline 1 100ml.bag @ 100 mls/hr IVPB Q8HR [facility] Rx#:[id number] Oral 890 Output: Hemodialysis 2500 Other: Voiding Method Toilet Toilet # Voids 1 2 - Exam GENERAL: The patient is alert and oriented x3, not in any acute distress. Well developed, well nourished. HEENT: Pupils are round and equally reacting to light. EOMI. No scleral icterus. No conjunctival pallor. Normocephalic, atraumatic. No pharyngeal erythema. No thyromegaly. CARDIOVASCULAR: S1 and S2 present. No murmurs, rubs, or gallops. PULMONARY: Chest is clear to auscultation, no wheezing or crackles. -ABDOMEN: Soft, mild abdominal tenderness with no rebound tenderness or guarding, nondistended, normoactive bowel sounds. No palpable organomegaly. MUSCULOSKELETAL: No joint swelling or deformity. -EXTREMITIES: No cyanosis, clubbing, or pedal edema. Right forearm is swollen, warm or red and tender. Right Lower extremity girth more than left LE. NEUROLOGICAL: Gross neurological examination did not reveal any focal deficits. SKIN: No rashes. No petechiae - Labs CBC & Chem 7: 09/22/20 05:28 09/22/20 05:28 Labs: Abnormal Lab Results - Last 24 Hours (Table) 09/21/20 09/21/20 09/22/20 Range/Units 17:17 21:33 05:28 RBC 3.11 L (3.80-5.40) m/uL Hgb 9.2 L (11.4-16.0) gm/dL Hct 28.7 L (34.0-46.0) % Neutrophils # 8.0 H (1.3-7.7) k/uL Lymphocytes # 0.8 L (1.0-4.8) k/uL Sodium (137-145) mmol/L BUN (7-17) mg/dL Creatinine (0.52-1.04) mg/dL POC Glucose (mg/dL) 108 H 277 H (75-99) mg/dL Calcium (8.4-10.2) mg/dL Total Bilirubin (0.2-1.3) mg/dL AST (14-36) U/L Alkaline Phosphatase (38-126) U/L Total Protein (6.3-8.2) g/dL Albumin (3.5-5.0) g/dL 09/22/20 09/22/20 09/22/20 Range/Units 05:28 07:56 11:55 RBC (3.80-5.40) m/uL Hgb (11.4-16.0) gm/dL Hct (34.0-46.0) % Neutrophils # (1.3-7.7) k/uL Lymphocytes # (1.0-4.8) k/uL Sodium 131 L (137-145) mmol/L BUN 31 H (7-17) mg/dL Creatinine 3.24 H (0.52-1.04) mg/dL POC Glucose (mg/dL) 113 H 206 H (75-99) mg/dL Calcium 7.9 L (8.4-10.2) mg/dL Total Bilirubin 1.8 H (0.2-1.3) mg/dL AST 43 H (14-36) U/L Alkaline Phosphatase 587 H (38-126) U/L Total Protein 6.1 L (6.3-8.2) g/dL Albumin 2.8 L (3.5-5.0) g/dL Assessment and Plan Assessment: Assessment: Acute and chronic diarrhea with abdominal pain Right forearm cellulitis End-stage renal disease on hemodialysis Hypertension Chronic diarrhea Type 2 diabetes mellitus Sigmoid diverticulosis Chronic heart failure COPD, not in acute exacerbation history of CVA/TIA Hyperlipidemia History of cirrhosis and cholestatic liver with chronic bronchitis Irritable bowel syndrome Gastroparesis History of left leg DVT on Eliquis Factor V disorder History of lupus Chronic anemia Bilateral lower extremity claudication History of lumbar radiculopathy History of esophagitis History of GI bleed History of coronary artery disease status post CABG and stent placement Plan: Patient's diarrhea is improving. She has been negative for C. diff. Workup so for has been negative. Patient is currently on aztreonam and Flagyl for her left forearm cellulitis. Will get an ultrasound of the left forearm to look for any abscess as she still continues to have the swelling and it is tender to touch. As the patient's right lower extremity girth is more compared to her left, ordered right lower extremity Doppler to rule out DVT. Continue the patient on GI DVT prophylaxis. Will continue with the rest of her current medication regimen. Further recommendations depending on the progress of the patient.
[2020-09-23] MEDS: AZTREONAM 1 GM in SODIUM CHLORIDE 0.9% 50 ML IVPB SCH ×2 (11:05→21:24)
--- NOTE | 2020-09-23 11:16 | P.PN ---
Subjective Patient is seen in follow-up for end-stage renal disease. She is maintained on hemodialysis on Thursday schedule. Tolerating oral intake. No chest pain or shortness of breath. Edema improved. Blood pressure still on lower side. Vital signs are stable. General: The patient appeared well nourished and normally developed. HEENT: Head exam is unremarkable. Neck is without jugular venous distension. LUNGS: Breath sounds decreased. HEART: Rate and Rhythm are regular. ABDOMEN: soft, nontender. EXTREMITITES: 1+ edema RLE. Objective - Vital Signs Vital signs: Vital Signs Temp 98.1 F 09/23/20 05:00 Pulse 79 09/23/20 05:00 Resp 18 09/23/20 05:00 BP 99/69 09/23/20 05:00 Pulse Ox 95 09/23/20 05:00 Intake & Output 09/22/20 09/23/20 09/23/20 19:59 06:59 18:59 Intake Total Balance Intake: Oral Other: Voiding Method # Voids - Labs CBC & Chem 7: 09/22/20 05:28 09/22/20 05:28 Labs: Abnormal Lab Results - Last 24 Hours (Table) 09/22/20 09/22/20 09/23/20 Range/Units 17:27 21:00 07:22 POC Glucose (mg/dL) 140 H 184 H 152 H (75-99) mg/dL Assessment and Plan Plan: Assessment: 1. End-stage renal disease maintained on hemodialysis on Thursday ay schedule. 2. Nausea vomiting and chronic diarrhea. GI following. Noted to have reflux esophagitis. Also on antibiotics. 3. Anemia of chronic kidney disease maintained on Aranesp. 4. Volume overload improved with ultrafiltration. No DVT. 5. Hypertension with chronic kidney disease. Blood pressure on the lower side which can be from [place]. 6. Chronic kidney disease mineral bone disease maintained on PhosLo. Plan: Hemodialysis Thursday. Continue to hold antihypertensives for systolic blood pressure less than 120.
[2020-09-23 11:17] LABS: Glucose,Whole Blood 151 mg/dL (75-99)
--- NOTE | 2020-09-23 11:36 | P.PN ---
Subjective Progress Note Date: 09/23/20 Principal diagnosis: Acute on Chronic diarrhea, Right forearm cellulitis Ms. Singh is a female past medical history of COPD, DVT, diabetes mellitus, ESRD on hemodialysis, peripheral arterial disease, lumbar radiculopathy, asthma, hypertension, hyperlipidemia coming into the hospital with a chief complaint of ongoing diarrhea for more than 1 month. She has been tested negative for C. diff. Patient had recent colonoscopy done showing moderate sigmoid diverticulosis with normal-appearing:, The preparation was face and not optimal and so GI recommended to repeat colonoscopy as outpatient at that time. On 09/22/2020 - patient is comfortably sleeping in her bed appears to be in acute distress. No acute events reported by nursing staff. Patient states that her diarrhea has improved. But she continues to have pain in her right forearm. Patient denies having any chest pain or palpitations. No cough or difficulty breathing. No abdominal pain nausea or vomiting. She denies any swelling of her lower extremities. On reviewing the vitals afebrile for the past 24 hours. Patient is on aztreonam and Flagyl due to multiple medical ALLERGIES to antibiotics. On 09/23/2020 - no acute events reported by nursing staff overnight. Patient is comfortably sleeping medications to be no acute distress. Patient states that her left arm is still painful. She denies having any fevers chills or rigors overnight. Patient denies worsening of her left forearm swelling. She had an ultrasound of the right upper extremity to look for focal abscess, that has come back negative for any focal abscess. Patient denies any chest pain or palpitations. She states that last bowel movement was couple of days back, no more diarrhea. On reviewing the patient's vitals she has been afebrile over the past 24 hours. Heart rate in 70s, respiratory rate 15, blood pressure 99 / 69 and saturating at 95% on room air. Patient's labs from yesterday showing white count of 9.7, hemoglobin 9.2. Sodium 131, potassium 4.3, chloride 100, bicarbonate 23, BMI 31, creatinine 3.24. Active Medications Hydrocodone Bitart/Acetaminophen (Hydrocodone/Apap 7.5-325mg 1 Each Tab) 1 each PO DAILY PRN PRN Reason: Pain Last Admin: 09/21/20 17:46 Dose: 1 each Documented by: Hydrocodone Bitart/Acetaminophen (Hydrocodone/Apap 5-325mg 1 Each Tab) 1 each PO Q6HR PRN PRN Reason: Pain Last Admin: 09/23/20 05:21 Dose: 1 each Documented by: Al Hydroxide/Mg Hydroxide (Mag Hydrox/Al Hydrox/Simeth 30 Ml Cup) 30 ml PO Q4HR PRN PRN Reason: GI Upset Last Admin: 09/18/20 20:16 Dose: 30 ml Documented by: Amlodipine Besylate (Amlodipine 5 Mg Tab) 5 mg PO BID [facility] Last Admin: 09/23/20 09:14 Dose: Not Given Documented by: Apixaban (Apixaban 2.5 Mg Tablet) 2.5 mg PO BID [facility] Last Admin: 09/23/20 09:04 Dose: 2.5 mg Documented by: Calcium Acetate (Calcium Acetate 667 Mg Tab) 667 mg PO BID-W/MEALS [facility] Last Admin: 09/23/20 09:05 Dose: 667 mg Documented by: Clopidogrel Bisulfate (Clopidogrel 75 Mg Tab) 75 mg PO DAILY [facility] Last Admin: 09/23/20 09:04 Dose: 75 mg Documented by: Darbepoetin Ramon (Darbepoetin Ramon 40 Mcg/0.4 Ml Syringe) 40 mcg SQ Q7D [facility] Last Admin: 09/21/20 13:08 Dose: 40 mcg Documented by: Diphenhydramine HCl (Diphenhydramine 25 Mg Cap) 25 mg PO BID PRN PRN Reason: Itching Last Admin: 09/18/20 20:12 Dose: 25 mg Documented by: Diphenoxylate HCl/Atropine (Diphenox-Atrop 2.5-0.025 Mg 1 Each Tab) 1 each PO Q6HR PRN PRN Reason: Diarrhea Hydralazine HCl (Hydralazine Hcl 50 Mg Tab) 100 mg PO TID [facility] Last Admin: 09/23/20 09:14 Dose: Not Given Documented by: Metronidazole 500 mg/ IV (Solution) 100 mls @ 100 mls/hr IVPB Q8HR [facility] Last Admin: 09/23/20 09:05 Dose: 100 mls/hr Documented by: Aztreonam 1 gm/ Sodium (Chloride) 50 mls @ 16.667 mls/hr IVPB Q12HR [facility] Last Admin: 09/23/20 11:05 Dose: 16.667 mls/hr Documented by: Insulin Aspart (Insulin Aspart (Novolog) 100 Unit/Ml Vial) 0 unit SQ ACHS [facility]; Protocol Last Admin: 09/23/20 09:03 Dose: 1 unit Documented by: Loratadine (Loratadine 10 Mg Tab) 10 mg PO DAILY [facility] Last Admin: 09/23/20 09:05 Dose: 10 mg Documented by: Metoprolol Succinate (Metoprolol Succinate (Er) 50 Mg Tab.Er.24h) 50 mg PO DAILY [facility] Last Admin: 09/23/20 09:14 Dose: Not Given Documented by: Nitroglycerin (Nitroglycerin Sl Tabs 0.4 Mg Tab) 0.4 mg SUBLINGUAL Q5M PRN PRN Reason: Chest Pain Ondansetron HCl (Ondansetron 4 Mg/2 Ml Vial) 4 mg IVP Q6HR PRN PRN Reason: Nausea And Vomiting Pantoprazole Sodium (Pantoprazole 40 Mg Tablet) 40 mg PO AC-BID [facility] Last Admin: 09/23/20 09:05 Dose: 40 mg Documented by: Pregabalin (Pregabalin 75 Mg Cap) 75 mg PO BID [facility] Last Admin: 09/23/20 09:05 Dose: 75 mg Documented by: Repaglinide (Repaglinide 1 Mg Tab) 0.5 mg PO AC-BID [facility] Last Admin: 09/23/20 09:04 Dose: Not Given Documented by: Zinc Acetate/Diphenhydramine (Diphenhydramine 2% Cream 28.4 Gm Tube) 1 applic TOPICAL BID [facility] Last Admin: 09/23/20 09:08 Dose: 1 applic Documented by: Objective - Vital Signs Vital signs: Vital Signs Temp 98.1 F 09/23/20 05:00 Pulse 79 09/23/20 05:00 Resp 18 09/23/20 05:00 BP 99/69 09/23/20 05:00 Pulse Ox 95 09/23/20 05:00 Intake & Output 09/22/20 09/23/20 09/23/20 19:59 06:59 18:59 Intake Total Balance Intake: Oral Other: Voiding Method # Voids - Exam GENERAL: The patient is alert and oriented x3, not in any acute distress. Well developed, well nourished. HEENT: Pupils are round and equally reacting to light. EOMI. No scleral icterus. No conjunctival pallor. Normocephalic, atraumatic. No pharyngeal erythema. No thyromegaly. CARDIOVASCULAR: S1 and S2 present. No murmurs, rubs, or gallops. PULMONARY: Chest is clear to auscultation, no wheezing or crackles. -ABDOMEN: Soft, mild abdominal tenderness with no rebound tenderness or guarding, nondistended, normoactive bowel sounds. No palpable organomegaly. MUSCULOSKELETAL: No joint swelling or deformity. -EXTREMITIES: No cyanosis, clubbing, or pedal edema. Right forearm - swelling is better compared to yesterday. Mild tenderness. Right Lower extremity girth more than left LE. NEUROLOGICAL: Gross neurological examination did not reveal any focal deficits. SKIN: No rashes. No petechiae - Labs CBC & Chem 7: 09/22/20 05:28 09/22/20 05:28 Labs: Abnormal Lab Results - Last 24 Hours (Table) 09/22/20 09/22/20 09/23/20 Range/Units 17:27 21:00 07:22 POC Glucose (mg/dL) 140 H 184 H 152 H (75-99) mg/dL 09/23/20 Range/Units 11:16 POC Glucose (mg/dL) 151 H (75-99) mg/dL Assessment and Plan Assessment: Assessment: Acute and chronic diarrhea - resolved Right forearm cellulitis - resolving End-stage renal disease on hemodialysis Hypertension Chronic diarrhea Type 2 diabetes mellitus Sigmoid diverticulosis Chronic heart failure COPD, not in acute exacerbation history of CVA/TIA Hyperlipidemia History of cirrhosis and cholestatic liver with chronic bronchitis Irritable bowel syndrome Gastroparesis History of left leg DVT on Eliquis Factor V disorder History of lupus Chronic anemia Bilateral lower extremity claudication History of lumbar radiculopathy History of esophagitis History of GI bleed History of coronary artery disease status post CABG and stent placement Plan: Patient's diarrhea is improving. She has been negative for C. diff. Workup so for has been negative. Patient is currently on aztreonam and Flagyl for her left forearm cellulitis. Ultrasound of the right upper extremity negative for focal abscess. Right lower extremity Doppler negative for DVT. Continue the patient on GI DVT prophylaxis. Will continue with the rest of her current medication regimen. Further recommendations depending on the progress of the patient.
[2020-09-23] MEDS: HYDROcodone/APAP 7.5-325MG 1 EACH TAB PO PRN (14:54)
[2020-09-23 17:03] LABS: Glucose,Whole Blood 212 mg/dL (75-99)
[2020-09-23] MEDS: metroNIDAZOLE 500 MG TAB PO SCH (17:42)
[2020-09-23] MEDS: diphenhydrAMINE 25 MG CAP PO PRN (19:45)
[2020-09-23 19:52] LABS: Glucose,Whole Blood 267 mg/dL (75-99)
[2020-09-24] MEDS: metroNIDAZOLE 500 MG TAB PO SCH ×4 (00:13→22:04)
[2020-09-24 07:07] LABS: Glucose,Whole Blood 101 mg/dL (75-99)
[2020-09-24] MEDS: INSULIN ASPART (NovoLOG) 100 UNIT/ML VIAL SQ SCH ×4 (07:17→22:04)
[2020-09-24] MEDS: PANTOPRAZOLE 40 MG TABLET PO SCH ×2 (08:00→17:41)
[2020-09-24] MEDS: AZTREONAM 1 GM in SODIUM CHLORIDE 0.9% 50 ML IVPB SCH ×2 (08:01→22:03)
[2020-09-24] MEDS: REPAGLINIDE 1 MG TAB PO SCH ×2 (08:02→17:39)
[2020-09-24] MEDS: hydrALAZINE HCL 50 MG TAB PO SCH ×3 (08:02→21:59)
[2020-09-24] MEDS: METOPROLOL SUCCINATE (ER) 50 MG TAB.ER.24H PO SCH (08:02)
[2020-09-24] MEDS: LORATADINE 10 MG TAB PO SCH (08:02)
[2020-09-24] MEDS: PREGABALIN 75 MG CAP PO SCH ×2 (08:02→22:04)
[2020-09-24] MEDS: CLOPIDOGREL 75 MG TAB PO SCH (08:02)
[2020-09-24] MEDS: CALCIUM ACETATE 667 MG TAB PO SCH ×2 (08:02→17:42)
[2020-09-24] MEDS: APIXABAN 2.5 MG TABLET PO SCH ×2 (08:02→22:03)
[2020-09-24] MEDS: amLODIPine 5 MG TAB PO SCH ×2 (08:03→21:59)
[2020-09-24] MEDS: diphenhydrAMINE 2% CREAM 28.4 GM TUBE TOPICAL SCH ×2 (08:03→22:04)
--- NOTE | 2020-09-24 10:16 | P.PN ---
Subjective Patient is seen in follow-up for end-stage renal disease. She is maintained on hemodialysis on Thursday schedule. Tolerating oral intake. No chest pain or shortness of breath. Edema improved. Blood pressure better. No active complaints. Vital signs are stable. General: The patient appeared well nourished and normally developed. HEENT: Head exam is unremarkable. Neck is without jugular venous distension. LUNGS: Breath sounds decreased. HEART: Rate and Rhythm are regular. ABDOMEN: soft, nontender. EXTREMITITES: 1+ edema RLE. Objective - Vital Signs Vital signs: Vital Signs Temp 97.5 F L 09/24/20 05:28 Pulse 87 09/24/20 05:28 Resp 16 09/24/20 05:28 BP 133/75 09/24/20 04:28 Pulse Ox 97 09/24/20 05:28 Intake & Output 09/23/20 09/24/20 09/24/20 18:59 06:59 18:59 Intake Total 150 1180 Balance 150 1180 Weight 93.5 kg Intake: Intake, IV Titration 150 Amount Aztreonam 1 gm In Sodium 50 Chloride 0.9% 50 ml @ 16. 667 mls/hr IVPB Q12HR [facility] Rx#:[id number] metroNIDAZOLE-NS PMX 500 100 mg In Saline 1 100ml.bag @ 100 mls/hr IVPB Q8HR [facility] Rx#:[id number] Oral 1180 Other: Voiding Method Toilet - Labs CBC & Chem 7: 09/22/20 05:28 09/22/20 05:28 Labs: Abnormal Lab Results - Last 24 Hours (Table) 09/23/20 09/23/20 09/23/20 Range/Units 11:16 17:02 19:50 POC Glucose (mg/dL) 151 H 212 H 267 H (75-99) mg/dL 09/24/20 Range/Units 07:05 POC Glucose (mg/dL) 101 H (75-99) mg/dL Assessment and Plan Plan: Assessment: 1. End-stage renal disease maintained on hemodialysis on Thursday schedule. 2. Nausea vomiting and chronic diarrhea. GI following. Noted to have reflux esophagitis. 3. Anemia of chronic kidney disease maintained on Aranesp. 4. Volume overload improved with ultrafiltration. No DVT. 5. Hypertension with chronic kidney disease. Blood pressure on the lower side which can be from norco. Better. 6. Chronic kidney disease mineral bone disease maintained on PhosLo. 7. Upper extremity cellulitis maintained on antibiotics. Plan: Hemodialysis today. Continue to hold antihypertensives for systolic blood pressure less than 120.
[2020-09-24 11:38] LABS: Glucose,Whole Blood 151 mg/dL (75-99)
[2020-09-24 16:58] LABS: Glucose,Whole Blood 150 mg/dL (75-99)
[2020-09-24 20:14] LABS: Glucose,Whole Blood 259 mg/dL (75-99)
--- NOTE | 2020-09-24 21:59 | PN ---
PROGRESS NOTE This patient is a 50-year-old -N[place]alese female who was admitted with right arm cellulitis. Remains on IV Azactam and IV Flagyl for chronic diarrhea. She states IV antibiotics are helping her diarrhea. She had dialysis today. She had an ultrasound of her right arm which is negative for any abscess. She has had no diarrhea in the last few days while in the hospital. Discussed with her about going home, but she says the IV antibiotics are helping her arm swelling and redness and are controlling her diarrhea. Waiting for clearance from multiple specialists prior to going home. CARDIOVASCULAR: S1, S2. LUNGS: Clear. PSYCH: She appears lethargic, depressed. ASSESSMENT: 1. Acute on chronic renal failure. 2. Diarrhea. 3. Resolved forearm cellulitis. 4. Resolving end-stage renal disease. 5. Hypertension. 6. Type 2 diabetes mellitus. 7. Sigmoid diverticulosis. 8. Chronic heart failure. 9. Chronic obstructive pulmonary disease. 10.History of cerebrovascular accident, transient ischemic attack. 11.Status post duodenal biopsies. 12.History of cirrhosis. 13.Cholestasis liver. 14.Irritable bowel syndrome. 15.Gastroparesis. 16.History of left leg deep venous thrombosis. 17.Factor V disorder. 18.History of lupus. 19.Chronic anemia. 20.Esophagitis. 21.Lumbar radiculopathy. 22.Gastrointestinal bleed history. 23.History of coronary disease status, status post stent. Diarrhea is improving. She is negative for C difficile. Workup has been negative. The patient is currently on aztreonam and Flagyl for right forearm cellulitis. Ultrasound of the right upper extremity was negative for abscess. Right lower extremity Doppler negative for DVT. Patient will possibly be switched to oral antibiotics and discharged home soon or in the near future. MMODL / IJN: [id number] /
[2020-09-24] MEDS: HYDROcodone/APAP 5-325MG 1 EACH TAB PO PRN (22:32)
[2020-09-25 07:19] LABS: Glucose,Whole Blood 96 mg/dL (75-99)
[2020-09-25] MEDS: INSULIN ASPART (NovoLOG) 100 UNIT/ML VIAL SQ SCH ×4 (07:21→20:59)
[2020-09-25] MEDS: PREGABALIN 75 MG CAP PO SCH ×2 (08:46→21:03)
[2020-09-25] MEDS: CLOPIDOGREL 75 MG TAB PO SCH (08:46)
[2020-09-25] MEDS: REPAGLINIDE 1 MG TAB PO SCH ×2 (08:46→17:52)
[2020-09-25] MEDS: APIXABAN 2.5 MG TABLET PO SCH ×2 (08:46→21:03)
[2020-09-25] MEDS: LORATADINE 10 MG TAB PO SCH (08:47)
[2020-09-25] MEDS: METOPROLOL SUCCINATE (ER) 50 MG TAB.ER.24H PO SCH (08:47)
[2020-09-25] MEDS: metroNIDAZOLE 500 MG TAB PO SCH ×3 (08:47→21:04)
[2020-09-25] MEDS: hydrALAZINE HCL 50 MG TAB PO SCH ×3 (08:47→22:13)
[2020-09-25] MEDS: amLODIPine 5 MG TAB PO SCH ×2 (08:47→20:58)
[2020-09-25] MEDS: CALCIUM ACETATE 667 MG TAB PO SCH ×2 (08:47→17:51)
[2020-09-25] MEDS: AZTREONAM 1 GM in SODIUM CHLORIDE 0.9% 50 ML IVPB SCH ×2 (08:50→21:03)
[2020-09-25] MEDS: diphenhydrAMINE 2% CREAM 28.4 GM TUBE TOPICAL SCH ×2 (08:50→21:03)
[2020-09-25] MEDS: PANTOPRAZOLE 40 MG TABLET PO SCH ×2 (08:50→17:52)
[2020-09-25] MEDS: HYDROcodone/APAP 7.5-325MG 1 EACH TAB PO PRN (11:02)
[2020-09-25 11:25] LABS: Glucose,Whole Blood 128 mg/dL (75-99)
--- NOTE | 2020-09-25 12:52 | P.PN ---
Subjective Patient is seen in follow-up for end-stage renal disease. She is maintained on hemodialysis on Thursday schedule. Tolerating oral intake. No chest pain or shortness of breath. Edema improved. No active complaints. Vital signs are stable. General: The patient appeared well nourished and normally developed. HEENT: Head exam is unremarkable. Neck is without jugular venous distension. LUNGS: Breath sounds decreased. HEART: Rate and Rhythm are regular. ABDOMEN: soft, nontender. EXTREMITITES: 1+ edema RLE. Objective - Vital Signs Vital signs: Vital Signs Temp 98.3 F 09/25/20 12:27 Pulse 82 09/25/20 12:27 Resp 17 09/25/20 12:27 BP 115/71 09/25/20 12:27 Pulse Ox 100 09/25/20 12:27 Intake & Output 09/24/20 09/25/20 09/25/20 18:59 06:59 18:59 Intake Total 500 450 Output Total 2500 Balance -2000 450 Intake: Intake, IV Titration 500 Amount Aztreonam 1 gm In Sodium 50 Chloride 0.9% 50 ml @ 16. 667 mls/hr IVPB Q12HR [facility] Rx#:[id number] IV Fluid Continuation 150 450 ml @ 0 mls/hr IV .STK- MED ONE Rx#:[id number] Oral 450 Output: Hemodialysis 2500 Other: Voiding Method Toilet Toilet # Voids 1 - Labs CBC & Chem 7: 09/22/20 05:28 09/22/20 05:28 Labs: Abnormal Lab Results - Last 24 Hours (Table) 09/24/20 09/24/20 09/25/20 Range/Units 16:55 20:13 11:20 POC Glucose (mg/dL) 150 H 259 H 128 H (75-99) mg/dL Assessment and Plan Plan: Assessment: 1. End-stage renal disease maintained on hemodialysis on Thursday schedule. 2. Nausea vomiting and chronic diarrhea. GI following. Noted to have reflux esophagitis. 3. Anemia of chronic kidney disease maintained on Aranesp. 4. Volume overload improved with ultrafiltration. No DVT. 5. Hypertension with chronic kidney disease. Blood pressure on the lower side which can be from norco. Stable. 6. Chronic kidney disease mineral bone disease maintained on PhosLo. 7. Upper extremity cellulitis maintained on antibiotics. Plan: Hemodialysis tomorrow. Continue to hold antihypertensives for systolic blood pressure less than 120. Anticipate discharge soon.
[2020-09-25 17:52] LABS: Glucose,Whole Blood 81 mg/dL (75-99)
[2020-09-25 20:56] LABS: Glucose,Whole Blood 86 mg/dL (75-99)
--- NOTE | 2020-09-26 02:15 | PN ---
PROGRESS NOTE DATE OF SERVICE: 09/25/2020 A 50-year-old female. Her right arm cellulitis is greatly improved. Her bowel diarrhea is all improved on Flagyl. Will possibly discharge her home tomorrow after dialysis. CARDIOVASCULAR: S1, S2. LUNGS: Clear. GI: Soft. HEMATOLOGY: Negative Homans. ASSESSMENT: 1. End-stage renal disease. 2. Cellulitis of the right arm. 3. Diarrhea, resolved. 4. Hypertension. 5. Diabetes mellitus. 6. Gastroparesis. Please see further orders. GI consultation. Renal doctor consultation. Send home on Flagyl for about a week for diarrhea. Hold promotility agent. Possible discharge home tomorrow. MMODL / IJN: [id number] /
[2020-09-26 07:14] LABS: Glucose,Whole Blood 104 mg/dL (75-99)
[2020-09-26] MEDS: HYDROcodone/APAP 7.5-325MG 1 EACH TAB PO PRN (07:16)
[2020-09-26] MEDS: PREGABALIN 75 MG CAP PO SCH ×2 (08:13→22:49)
[2020-09-26] MEDS: REPAGLINIDE 1 MG TAB PO SCH ×2 (08:13→17:52)
[2020-09-26] MEDS: LORATADINE 10 MG TAB PO SCH (08:14)
[2020-09-26] MEDS: metroNIDAZOLE 500 MG TAB PO SCH ×3 (08:14→22:49)
[2020-09-26] MEDS: CLOPIDOGREL 75 MG TAB PO SCH (08:14)
[2020-09-26] MEDS: APIXABAN 2.5 MG TABLET PO SCH ×2 (08:14→22:48)
[2020-09-26] MEDS: CALCIUM ACETATE 667 MG TAB PO SCH ×2 (08:14→17:51)
[2020-09-26] MEDS: amLODIPine 5 MG TAB PO SCH ×2 (08:15→23:03)
[2020-09-26] MEDS: AZTREONAM 1 GM in SODIUM CHLORIDE 0.9% 50 ML IVPB SCH ×2 (08:15→22:48)
[2020-09-26] MEDS: hydrALAZINE HCL 50 MG TAB PO SCH ×3 (08:15→23:04)
[2020-09-26] MEDS: diphenhydrAMINE 2% CREAM 28.4 GM TUBE TOPICAL SCH ×2 (08:16→23:03)
[2020-09-26] MEDS: PANTOPRAZOLE 40 MG TABLET PO SCH ×2 (08:16→17:52)
[2020-09-26] MEDS: INSULIN ASPART (NovoLOG) 100 UNIT/ML VIAL SQ SCH ×4 (08:16→23:03)
[2020-09-26 11:23] LABS: Glucose,Whole Blood 95 mg/dL (75-99)
[2020-09-26] MEDS: METOPROLOL SUCCINATE (ER) 50 MG TAB.ER.24H PO SCH (15:53)
[2020-09-26 17:16] LABS: Glucose,Whole Blood 63 mg/dL (75-99)
[2020-09-26 17:32] LABS: Glucose,Whole Blood 67 mg/dL (75-99)
[2020-09-26 17:56] LABS: Glucose,Whole Blood 57 mg/dL (75-99)
[2020-09-26 18:12] LABS: Glucose,Whole Blood 83 mg/dL (75-99)
[2020-09-26 18:39] LABS: Glucose,Whole Blood 69 mg/dL (75-99)
[2020-09-26] MEDS ORDERED: DEXTROSE 50% SYRINGE 50 ML IVP STA (18:51)
--- NOTE | 2020-09-26 18:56 | PN ---
PROGRESS NOTE Patient is seen for followup for end-stage renal disease. This morning patient is lying in bed. She is comfortable. Denies any significant complaints. Her hand is feeling better. On examination today, blood pressure was 96/65, heart rate 81 per minute. She is afebrile. Examination shows patient has edema 2+, bilateral lower extremities. Abdomen is soft, nontender. No significant erythema or tenderness noted in the right arm at this point. Labs are reviewed. No new labs available since 09/22/2020. ASSESSMENT: 1. End-stage renal disease, on hemodialysis on a Thursday, Thursday, Thursday schedule. 2. Right arm cellulitis, status post antibiotics. 3. Nausea and vomiting with chronic diarrhea, currently improved, status post esophagogastroduodenoscopy. 4. Volume overload. PLAN: Hemodialysis today. Patient is stable for discharge. Follow up as outpatient for hemodialysis on Thursday. MMODL / IJN: [id number] /
[2020-09-26 19:12] LABS: Glucose,Whole Blood 93 mg/dL (75-99)
[2020-09-26 20:20] LABS: Glucose,Whole Blood 60 mg/dL (75-99)
[2020-09-26] MEDS ORDERED: DEXTROSE 5% IN WATER 1,000 ML IV ONE (20:26)
[2020-09-26 20:52] LABS: Glucose,Whole Blood 80 mg/dL (75-99)
[2020-09-26 22:01] LABS: Glucose,Whole Blood 130 mg/dL (75-99)
[2020-09-26] MEDS: HYDROcodone/APAP 5-325MG 1 EACH TAB PO PRN (22:58)
[2020-09-26 23:51] LABS: Glucose,Whole Blood 84 mg/dL (75-99)
[2020-09-27 04:52] LABS: Glucose,Whole Blood 108 mg/dL (75-99)
[2020-09-27 07:19] LABS: Glucose,Whole Blood 106 mg/dL (75-99)
[2020-09-27] MEDS: INSULIN ASPART (NovoLOG) 100 UNIT/ML VIAL SQ SCH ×2 (07:39→12:18)
[2020-09-27] MEDS: amLODIPine 5 MG TAB PO SCH (08:34)
[2020-09-27] MEDS: hydrALAZINE HCL 50 MG TAB PO SCH (08:34)
[2020-09-27] MEDS: PANTOPRAZOLE 40 MG TABLET PO SCH (08:40)
[2020-09-27] MEDS: AZTREONAM 1 GM in SODIUM CHLORIDE 0.9% 50 ML IVPB SCH (08:40)
[2020-09-27] MEDS: PREGABALIN 75 MG CAP PO SCH (08:40)
[2020-09-27] MEDS: APIXABAN 2.5 MG TABLET PO SCH (08:40)
[2020-09-27] MEDS: metroNIDAZOLE 500 MG TAB PO SCH (08:41)
[2020-09-27] MEDS: LORATADINE 10 MG TAB PO SCH (08:41)
[2020-09-27] MEDS: METOPROLOL SUCCINATE (ER) 50 MG TAB.ER.24H PO SCH (08:41)
[2020-09-27] MEDS: CLOPIDOGREL 75 MG TAB PO SCH (08:41)
[2020-09-27] MEDS: CALCIUM ACETATE 667 MG TAB PO SCH (08:41)
[2020-09-27] MEDS: diphenhydrAMINE 2% CREAM 28.4 GM TUBE TOPICAL SCH (08:42)
[2020-09-27] MEDS: diphenhydrAMINE 25 MG CAP PO PRN (08:51)
[2020-09-27 11:42] LABS: Glucose,Whole Blood 123 mg/dL (75-99)
[2020-09-27 11:52] VITALS: BP 117/73; PULSE 92; RESP 20; TEMP 98.8
--- NOTE | 2020-09-27 12:32 | P.PN ---
Subjective Patient is seen in follow-up for end-stage renal disease. She is maintained on hemodialysis on Thursday schedule. Tolerating oral intake. No chest pain or shortness of breath. Edema improved. No active complaints. Blood sugar has been low but D5W was discontinued this morning. Vital signs are stable. General: The patient appeared well nourished and normally developed. HEENT: Head exam is unremarkable. Neck is without jugular venous distension. LUNGS: Breath sounds decreased. HEART: Rate and Rhythm are regular. ABDOMEN: soft, nontender. EXTREMITITES: 1+ edema RLE. Objective - Vital Signs Vital signs: Vital Signs Temp 98.8 F 09/27/20 11: Pulse 92 09/27/20 11:23 Resp 20 09/27/20 11:23 BP 117/73 09/27/20 11:23 Pulse Ox 92 L 09/27/20 11:23 Intake & Output 09/26/20 09/27/20 09/27/20 18:59 06:59 18:59 Intake Total 900 240 Output Total 4000 Balance -4000 900 240 Intake: Intake, IV Titration 900 Amount Dextrose 5% in Water 1, 900 000 ml @ 75 mls/hr IV . [id number] Rx#:[id number] Oral 240 Output: Hemodialysis 4000 Other: Voiding Method Toilet # Voids 2 1 - Labs CBC & Chem 7: 09/22/20 05:28 09/22/20 05:28 Labs: Abnormal Lab Results - Last 24 Hours (Table) 09/26/20 09/26/20 09/26/20 Range/Units 17:13 17:30 17:53 POC Glucose (mg/dL) 63 L 67 L 57 L (75-99) mg/dL 09/26/20 09/26/20 09/26/20 Range/Units 18:37 20:08 21:59 POC Glucose (mg/dL) 69 L 60 L 130 H (75-99) mg/dL 09/27/20 09/27/20 09/27/20 Range/Units 04:50 07:01 11:27 POC Glucose (mg/dL) 108 H 106 H 123 H (75-99) mg/dL Assessment and Plan Plan: Assessment: 1. End-stage renal disease maintained on hemodialysis on Thursday schedule. 2. Nausea vomiting and chronic diarrhea. GI following. Noted to have reflux esophagitis. 3. Anemia of chronic kidney disease maintained on Aranesp. 4. Volume overload improved with ultrafiltration. No DVT. 5. Hypertension with chronic kidney disease. Partially volume sensitive. Stable. 6. Chronic kidney disease mineral bone disease maintained on PhosLo. 7. Upper extremity cellulitis s/p antibiotics. Plan: Hemodialysis tomorrow. Discontinue amlodipine. Hold hydralazine for systolic blood pressure less than 120. Patient was advised to monitor her blood pressure at home. Anticipate discharge soon.
--- NOTE | 2020-09-27 13:52 | PN ---
PROGRESS NOTE DATE OF SERVICE: 09/26/2020 A 50-year-old female with cellulitis of right arm, greatly improved with aztreonam, was switched to oral antibiotics. Her diarrhea has resolved. She had hypoglycemia down into the 40s to 60s last night which held up at discharge. D5 normal saline was given overnight and we are monitoring her oral intake. Oral antihyperglycemics were discontinued. CARDIOVASCULAR: S1-S2. LUNGS: Clear. GI: Soft. HEMATOLOGY: Negative Homans. PSYCH: She appears flat mood and affect. ASSESSMENT: Acute on chronic renal failure, hyperglycemia, diabetes mellitus, COPD, possible cirrhotic liver, diastolic CHF, possible discharge home tomorrow if her sugar stabilizes. MMODL / IJN: [id number] /
== END 2020-09-27 15:45 | disposition home or self-care (01) | DRG 391 ==
LOC: EC 12:04 → 4SSUR 15:31 → 6NMEDSUR 16:43
PROVIDERS: ADMIT Family Medicine; ATTEND Family Medicine
PROC: 5A1D70Z Performance of Urinary Filtration, Intermittent, Less than 6 Hours Per Day (ICD-10-PCS; 2020-09-18)
PROC: 0DB98ZX Excision of Duodenum, Via Natural or Artificial Opening Endoscopic, Diagnostic (ICD-10-PCS; principal; 2020-09-20 13:00)
DX: R19.7 Diarrhea, unspecified (principal); K83.1 Obstruction of bile duct; N18.6 End stage renal disease; I13.2 Hypertensive heart and chronic kidney disease with heart failure and with stage 5 chronic kidney disease, or end stage renal disease; I50.32 Chronic diastolic (congestive) heart failure; K22.10 Ulcer of esophagus without bleeding; L03.113 Cellulitis of right upper limb; N17.9 Acute kidney failure, unspecified; D68.51 Activated protein C resistance; E11.649 Type 2 diabetes mellitus with hypoglycemia without coma; I27.20 Pulmonary hypertension, unspecified; E83.39 Other disorders of phosphorus metabolism; D63.1 Anemia in chronic kidney disease; E11.22 Type 2 diabetes mellitus with diabetic chronic kidney disease; K74.60 Unspecified cirrhosis of liver; E11.43 Type 2 diabetes mellitus with diabetic autonomic (poly)neuropathy; E11.51 Type 2 diabetes mellitus with diabetic peripheral angiopathy without gangrene; E11.65 Type 2 diabetes mellitus with hyperglycemia; F31.9 Bipolar disorder, unspecified; I48.91 Unspecified atrial fibrillation; J44.9 Chronic obstructive pulmonary disease, unspecified; I71.4 Abdominal aortic aneurysm, without rupture; Z79.4 Long term (current) use of insulin; Z99.2 Dependence on renal dialysis; F17.210 Nicotine dependence, cigarettes, uncomplicated; E78.5 Hyperlipidemia, unspecified; E86.0 Dehydration; F41.9 Anxiety disorder, unspecified; G89.29 Other chronic pain; I08.3 Combined rheumatic disorders of mitral, aortic and tricuspid valves; K58.0 Irritable bowel syndrome with diarrhea; I25.10 Atherosclerotic heart disease of native coronary artery without angina pectoris; I25.2 Old myocardial infarction; I45.10 Unspecified right bundle-branch block; K21.00 Gastro-esophageal reflux disease with esophagitis, without bleeding; K31.84 Gastroparesis; K57.30 Diverticulosis of large intestine without perforation or abscess without bleeding; L29.9 Pruritus, unspecified; M54.16 Radiculopathy, lumbar region; E83.89 Other disorders of mineral metabolism; R21 Rash and other nonspecific skin eruption; K59.00 Constipation, unspecified; R10.9 Unspecified abdominal pain; R12 Heartburn; E66.9 Obesity, unspecified; Z68.31 Body mass index [BMI] 31.0-31.9, adult; Z79.01 Long term (current) use of anticoagulants; Z79.02 Long term (current) use of antithrombotics/antiplatelets; Z79.899 Other long term (current) drug therapy; Z86.718 Personal history of other venous thrombosis and embolism; Z86.73 Personal history of transient ischemic attack (TIA), and cerebral infarction without residual deficits; Z87.19 Personal history of other diseases of the digestive system; Z95.1 Presence of aortocoronary bypass graft; Z95.5 Presence of coronary angioplasty implant and graft; Z88.1 Allergy status to other antibiotic agents; Z88.2 Allergy status to sulfonamides; Z88.8 Allergy status to other drugs, medicaments and biological substances; Z91.040 Latex allergy status; Z90.49 Acquired absence of other specified parts of digestive tract; Z98.51 Tubal ligation status; Z95.820 Peripheral vascular angioplasty status with implants and grafts; Z82.49 Family history of ischemic heart disease and other diseases of the circulatory system; Z82.5 Family history of asthma and other chronic lower respiratory diseases; Z80.9 Family history of malignant neoplasm, unspecified
CPT/HCPCS: 36415; 43239; 80053; 82533; 82550; 83036; 83605; 83735; 84100; 84145; 84484; 85025; 85652; 86140; 86706; 87324; 87340; 88305; 90935; 93005; 96374; 99285

== ENCOUNTER 2020-10-11 21:03 | Emergency (ER) | payer MEDICARE, OTHER ==
[2020-10-11] MEDS ORDERED: ONDANSETRON 4 MG/2 ML VIAL IVP STA (21:58)
[2020-10-11] MEDS ORDERED: HYDROmorphone 0.5 MG/0.5 ML SYRINGE IVP STA (21:58)
[2020-10-11 22:37] VITALS: RESP 18
[2020-10-11 22:45] LABS: Anisocytosis Slight; Basophils % (A) 0 %; Eosinophils # (A) 0.1 k/uL (0-0.7); Eosinophils % (A) 1 %; HCT 31.3 % (34.0-46.0); HGB 10.1 gm/dL (11.4-16.0); Lymphocytes # (A) 0.9 k/uL (1.0-4.8); Lymphocytes % (A) 8 %; MCH 28.3 pg (25.0-35.0); MCHC 32.3 g/dL (31.0-37.0); MCV 87.6 fL (80.0-100.0); Mean Platelet Volume 9.8; Monocytes # (A) 0.4 k/uL (0-1.0); Monocytes % (A) 4 %; Neutrophils # (A) 9.4 k/uL (1.3-7.7); Neutrophils % (A) 86 %; Platelet Count 248 k/uL (150-450); RBC 3.57 m/uL (3.80-5.40); RDW 16.2 % (11.5-15.5); WBC 10.9 k/uL (3.8-10.6)
[2020-10-11 22:48] LABS: Appearance,Urine Clear (Clear); Bacteria,Urine Rare /hpf; Bilirubin,Urine 2+ (Negative); Blood,Urine Moderate (Negative); Color,Urine Dark Yellow; Glucose,Urine (UA) 2+ (Negative); Hyaline Casts,Urine 1 /lpf (0-2); Ketones,Urine Negative (Negative); Leukocyte Esterase,Urine Trace (Negative); Nitrite,Urine Negative (Negative); PH, Urine 6.5 (5.0-8.0); Protein,Urine 3+ (Negative); RBC,Urine 29 /hpf (0-5); Specific Gravity,Urine 1.024 (1.001-1.035); Squamous Epithelial Cell,Urine <1 /hpf (0-4); WBC,Urine 4 /hpf (0-5)
[2020-10-11 22:53] LABS: INR 1.2 (<1.2); Partial Thromboplastin Time 50.6 sec (22.0-30.0); Prothrombin Time 11.8 sec (9.0-12.0)
[2020-10-11 22:56] LABS: Albumin 3.2 g/dL (3.5-5.0); Calcium 8.5 mg/dL (8.4-10.2); Magnesium 2.3 mg/dL (1.6-2.3); Potassium 3.7 mmol/L (3.5-5.1); Total Protein 6.7 g/dL (6.3-8.2)
[2020-10-11] MEDS ORDERED: LOPERAMIDE 2 MG CAP PO STA (23:55)
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
--- NOTE | 2020-10-12 00:30 | XR ---
EXAM: XR Chest, 2 Views CLINICAL HISTORY: ITS.REASON XR Reason: rule out pulm edema TECHNIQUE: Frontal and lateral views of the chest. COMPARISON: Chest x-ray dated 09/07/2020 FINDINGS: Lungs: Diffuse airspace opacities which may represent pulmonary vascular congestion versus an infectious process. Pleural space: Unremarkable. Heart: Heart is enlarged. Mediastinum: Unremarkable. Bones/joints: Evidence prior median sternotomy. Tubes, lines and devices: IJ vas catheter with tip at the right atrium. Right subclavian Port-A-Cath with tip in the cavoatrial junction. IMPRESSION: Diffuse airspace opacities which may represent pulmonary vascular congestion versus an infectious process.
[2020-10-12 01:09] VITALS: BP 159/101; PULSE 75; TEMP 98.7
== END 2020-10-12 01:09 | disposition home or self-care (01) ==
LOC: EC 21:03
DX: R19.7 Diarrhea, unspecified (principal); F41.9 Anxiety disorder, unspecified; F31.9 Bipolar disorder, unspecified; F17.200 Nicotine dependence, unspecified, uncomplicated; I25.2 Old myocardial infarction; E11.22 Type 2 diabetes mellitus with diabetic chronic kidney disease; I13.2 Hypertensive heart and chronic kidney disease with heart failure and with stage 5 chronic kidney disease, or end stage renal disease; I50.9 Heart failure, unspecified; N18.6 End stage renal disease; Z79.4 Long term (current) use of insulin; Z79.01 Long term (current) use of anticoagulants; Z79.899 Other long term (current) drug therapy; Z95.1 Presence of aortocoronary bypass graft; Z95.5 Presence of coronary angioplasty implant and graft; Z90.49 Acquired absence of other specified parts of digestive tract; Z99.2 Dependence on renal dialysis; Z86.73 Personal history of transient ischemic attack (TIA), and cerebral infarction without residual deficits; Z88.1 Allergy status to other antibiotic agents; Z88.2 Allergy status to sulfonamides; Z88.8 Allergy status to other drugs, medicaments and biological substances
CPT/HCPCS: 36415; 80053; 83735; 85025; 85610; 85730; 81001; 87324; 87045; 87046; 71046; 99284; 96374; 96375; J2405; J1170

== ENCOUNTER 2020-10-13 18:18 | Inpatient (IN) | payer MEDICARE, OTHER ==
[2020-10-13] MEDS ORDERED: MORPHINE SULFATE 4 MG/ML SYRINGE IV STA (18:43)
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
--- NOTE | 2020-10-13 19:25 | XR ---
EXAM: Abdomen radiograph. HISTORY: Pain. TECHNIQUE: Upright AP view. COMPARISON: None available. FINDINGS: There are nondilated bowel loops with a nonobstructive pattern. No free air. There are no pathologic calcifications. No acute osseous abnormality seen. Aortoiliac graft seen. IMPRESSION: No acute abnormality.
[2020-10-13 19:29] LABS: Basophils # (A) 0.1 k/uL (0-0.2); Basophils % (A) 1 %; Eosinophils # (A) 0.1 k/uL (0-0.7); Eosinophils % (A) 1 %; HCT 31.2 % (34.0-46.0); HGB 10.5 gm/dL (11.4-16.0); Lymphocytes # (A) 0.9 k/uL (1.0-4.8); Lymphocytes % (A) 10 %; MCHC 33.7 g/dL (31.0-37.0); MCV 86.2 fL (80.0-100.0); Mean Platelet Volume 9.6; Monocytes # (A) 0.3 k/uL (0-1.0); Monocytes % (A) 4 %; Neutrophils # (A) 7.4 k/uL (1.3-7.7); Neutrophils % (A) 83 %; Platelet Count 211 k/uL (150-450); RBC 3.62 m/uL (3.80-5.40); RDW 15.8 % (11.5-15.5); WBC 8.9 k/uL (3.8-10.6)
[2020-10-13 19:40] LABS: Albumin 3.1 g/dL (3.5-5.0); Calcium 8.4 mg/dL (8.4-10.2); Total Bilirubin 2.1 mg/dL (0.2-1.3); Total Protein 6.6 g/dL (6.3-8.2)
[2020-10-13 19:43] LABS: INR 1.3 (<1.2); Partial Thromboplastin Time 32.5 sec (22.0-30.0); Prothrombin Time 12.8 sec (9.0-12.0)
[2020-10-13] MEDS ORDERED: NALOXONE 0.4 MG/ML 1 ML VIAL IV PRN (20:02)
[2020-10-13] MEDS ORDERED: diphenhydrAMINE 25 MG CAP PO PRN (21:32)
[2020-10-13] MEDS ORDERED: METOPROLOL SUCCINATE (ER) 50 MG TAB.ER.24H PO SCH (21:45)
[2020-10-13] MEDS ORDERED: HYDROcodone/APAP 5-325MG 1 EACH TAB PO SCH (21:45)
[2020-10-13] MEDS: LOPERAMIDE 2 MG CAP PO SCH (22:02)
[2020-10-13] MEDS: amLODIPine 5 MG TAB PO SCH (22:05)
[2020-10-13] MEDS: MORPHINE SULFATE 4 MG/ML SYRINGE IV PRN (22:13)
[2020-10-13] MEDS: CALCIUM ACETATE 667 MG TAB PO SCH (22:45)
[2020-10-13] MEDS: APIXABAN 2.5 MG TABLET PO SCH (22:45)
[2020-10-13] MEDS: hydrALAZINE HCL 25 MG TAB PO SCH (22:54)
[2020-10-14] MEDS: MORPHINE SULFATE 4 MG/ML SYRINGE IV PRN ×6 (02:11→22:43)
[2020-10-14 06:30] LABS: Glucose,Whole Blood 131 mg/dL (75-99)
[2020-10-14] MEDS: CALCIUM ACETATE 667 MG TAB PO SCH ×2 (06:45→16:31)
[2020-10-14] MEDS: PANTOPRAZOLE 40 MG TABLET PO SCH ×2 (06:45→06:47)
[2020-10-14] MEDS ORDERED: INSULIN ASPART (NovoLOG) 100 UNIT/ML VIAL SQ SCH (07:30)
[2020-10-14] MEDS: amLODIPine 5 MG TAB PO SCH ×2 (09:04→20:52)
[2020-10-14] MEDS: LOPERAMIDE 2 MG CAP PO SCH ×2 (09:04→13:42)
[2020-10-14] MEDS: PREGABALIN 75 MG CAP PO SCH ×2 (09:04→20:52)
[2020-10-14] MEDS: APIXABAN 2.5 MG TABLET PO SCH ×2 (09:04→20:53)
[2020-10-14] MEDS: hydrALAZINE HCL 25 MG TAB PO SCH ×3 (09:04→20:52)
[2020-10-14] MEDS: LORATADINE 10 MG TAB PO SCH (09:04)
[2020-10-14] MEDS: CLOPIDOGREL 75 MG TAB PO SCH (09:04)
[2020-10-14] MEDS: REPAGLINIDE 1 MG TAB PO SCH ×2 (09:06→16:31)
[2020-10-14 11:14] LABS: Glucose,Whole Blood 203 mg/dL (75-99)
--- NOTE | 2020-10-14 11:16 | CONS ---
CONSULTATION DATE OF DICTATION: October 14, 2020. REASON FOR CONSULTATION: Abdominal pain and diarrhea. HISTORY OF PRESENT ILLNESS: The patient is a 50-year-old pleasant female admitted to the hospital because of abdominal pain associated with nausea, vomiting, diarrhea for the last several months duration. Patient had multiple hospitalizations over the last 4-5 months for the same reason. She has history of end-stage renal disease on hemodialysis. She states that she has been having bowel movements anywhere from 7-8 a day which are loose to watery in consistency with no blood or mucus in the stool. As a part of workup, she had a colonoscopy in August that was biopsied that was unremarkable. She had an upper endoscopy with small bowel biopsies that was unremarkable. She had C difficile done several times, which was negative. She was treated with Questran as well as Imodium on an outpatient basis and patient states that for the last few days it is not helping her. She has been having problems with fecal incontinence during her dialysis. She was treated empirically with antibiotics during her last admission that initially seemed to help, but now she has recurrent symptoms. PAST MEDICAL HISTORY: Significant for hypertension, hyperlipidemia, end-stage renal disease on hemodialysis, history of asthma, diabetes mellitus, history of DVT, gastroesophageal reflux disease. PAST SURGICAL HISTORY: Cholecystectomy, CABG, EGD, colonoscopy, cardiac catheterization with stent placement, bilateral common iliac artery stents, tubal ligation. MEDICATIONS: Medications at home include Toprol, Марина-Twyla, repaglinide, Zofran, Eliquis, cetirizine, Plavix, Apresoline, NovoLog, [place] PhosLo, Benadryl. ALLERGIES: ATORVASTATIN, KEFLEX, ZOCOR, BACTRIM. SOCIAL HISTORY: Chronic smoker. No alcohol use. FAMILY HISTORY: Mother had asthma, cancer. Father DVT and DC. Daughter had DVT and PE. REVIEW OF SYSTEMS: CARDIOPULMONARY: No chest pain or shortness of breath. no dysuria or hematuria. MUSCULOSKELETAL unremarkable. Skin unremarkable. Endocrine unremarkable. Psychiatric unremarkable. NEUROLOGY: Unremarkable. ENT/VISION: Unremarkable. CONSTITUTIONAL: No recent weight loss. No fever, chills, night sweats. PHYSICAL EXAMINATION: She appears comfortable. No apparent distress. VITAL SIGNS: Stable. Blood pressure 167/93, pulse rate 85, temperature 97.9. HEENT examination unremarkable. Conjunctivae pink. Sclerae anicteric. Oral cavity no lesions. Neck no JVD or lymph node enlargement. Chest was clear to auscultation. HEART: Regular rate and rhythm. ABDOMEN: Soft. There was mild tenderness in the lower abdominal area. EXTREMITIES: No pedal edema. SKIN: No rashes. NEURO: She is alert, oriented to name and place. LABS: From yesterday WBC 8.9, hemoglobin 10.5, platelets 211. PT is 12.8, INR 1.3. BUN 29, creatinine 2.95, sodium 134, T bilirubin 2.1, AST 41, ALT 19, alkaline phosphatase is 504. C diff is negative. IMPRESSION: 1. Chronic diarrhea for the last 4 months duration. She had extensive workup including EGD and colonoscopy with biopsies that was unremarkable. Stool collection for 24 hours was ordered last time but was not able to perform because the diarrhea resolved with Imodium and Questran at that time. The patient now states that she has been taking medications on an outpatient basis with no help. 2. End-stage renal disease on hemodialysis. 3. History of hypertension, hyperlipidemia. 4. History of diabetes mellitus. 5. Mild elevation of serum transaminases status post liver biopsy in July of 2020 that showed chronic venous congestion of the liver. RECOMMENDATIONS: 1. We will start her on Bentyl 20 mg 4 times daily. 2. DC loperamide. 3. Start back on Questran one packet twice daily. 4. Start her on a renal diet. 5. We will follow with you closely. Thank you for this consultation. MMODL / IJN: [id number] /
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
[2020-10-14] MEDS: DICYCLOMINE 20 MG TAB PO SCH ×3 (13:11→20:53)
[2020-10-14 13:54] LABS: Hemoglobin A1C 7.4 % (4.0-6.0)
[2020-10-14] MEDS: BENZOCAINE/MENTHOL LOZENG 1 EACH LOZENGE MUCOUS MEM PRN (16:26)
[2020-10-14 16:29] LABS: Glucose,Whole Blood 274 mg/dL (75-99)
[2020-10-14] MEDS: CHOLESTYRAMINE (WITH SUGAR) 4 GM PACKET PO SCH (17:41)
[2020-10-14 21:05] LABS: Glucose,Whole Blood 173 mg/dL (75-99)
--- NOTE | 2020-10-15 02:24 | HP ---
HISTORY AND PHYSICAL A 50-year-old, female came to hospital with abdominal pain, nausea, vomiting, diarrhea for the past several months duration. It resolved and now it has re- occurred since she has been home for the last 2 weeks. She has 7 to 8 bowel movements a day, watery consistency. No blood or mucus. She had a colonoscopy in August and biopsy which shows unremarkable. Upper endoscopy unremarkable. C difficile was multiple, multiple times, negative. She was treated with Questran and Imodium as outpatient. Patient says it is not helping her. Fecal incontinence during her dialysis. Treated empirically with antibiotics last admission, initially seemed to help, now she has recurrent symptoms. PAST MEDICAL HISTORY: End-stage renal disease, hypertension, asthma, diabetes mellitus, DVT, GERD. SURGICAL HISTORY: Cholecystectomy, CABG, EGD, colonoscopy, cardiac catheterization, stent, bilateral common iliac artery stents, tubal ligation. MEDICATIONS: Toprol, Марина-Twyla, repaglinide, Zofran, Eliquis, cetirizine, Plavix, Apresoline, NovoLog, [place], PhosLo, Benadryl. ALLERGIES: ATORVASTATIN, KEFLEX, ZOCOR, BACTRIM. SOCIAL HISTORY: No alcohol. Chronic smoker. FAMILY HISTORY: Mother had cancer, asthma. Father had DVT, MS. Daughter had DVT, PE. REVIEW OF SYSTEMS: Fourteen-point review of systems negative except for above. PHYSICAL EXAMINATION: PSYCH: Flat mood and affect. She appears comfortable. No acute distress. Sleepy, lethargic. VITAL SIGNS: Blood pressure 160s over 90s, pulse rate 80s, temperature 97.9. HEENT: Normocephalic, atraumatic. Pupils equal, round, reactive. CARDIAC: Regular rate and rhythm. EXTREMITIES: No pedal edema. SKIN: No rashes. Alert and oriented times name and place. LABS: Labs were reviewed. ASSESSMENT: 1. Recurrent diarrhea for 4 months of unclear etiology. 2. End-stage renal disease. 3. Hypertension. 4. Diabetes mellitus. 5. Mild elevated serum transaminase, status post liver biopsy showed chronic venous congestion of liver. Start her on Bentyl 20 q.i.d. Discontinue loperamide. Start back on Questran twice a day. Renal diet. Dialysis. Please see further orders. MMODL / IJN: [id number] /
[2020-10-15 07:07] LABS: Glucose,Whole Blood 177 mg/dL (75-99)
[2020-10-15] MEDS: PANTOPRAZOLE 40 MG TABLET PO SCH (08:37)
[2020-10-15] MEDS: CHOLESTYRAMINE (WITH SUGAR) 4 GM PACKET PO SCH ×2 (08:42→15:33)
[2020-10-15] MEDS: APIXABAN 2.5 MG TABLET PO SCH ×2 (08:44→21:44)
[2020-10-15] MEDS: PREGABALIN 75 MG CAP PO SCH ×2 (08:45→21:44)
[2020-10-15] MEDS: LORATADINE 10 MG TAB PO SCH (08:45)
[2020-10-15] MEDS: CLOPIDOGREL 75 MG TAB PO SCH (08:45)
[2020-10-15] MEDS: CALCIUM ACETATE 667 MG TAB PO SCH ×2 (08:49→15:33)
[2020-10-15] MEDS: REPAGLINIDE 1 MG TAB PO SCH ×2 (08:49→17:18)
[2020-10-15] MEDS: MORPHINE SULFATE 4 MG/ML SYRINGE IV PRN ×2 (08:59→15:33)
[2020-10-15] MEDS ORDERED: hydrALAZINE HCL 20 MG/ML 1 ML VIAL IVP PRN (10:45)
--- NOTE | 2020-10-15 10:46 | P.PN ---
Subjective Patient is seen in follow-up for end-stage renal disease. She is maintained on hemodialysis on Thursday schedule. Still complaining of diarrhea. No chest pain or shortness of breath. No edema. Vital signs are stable. General: The patient appeared well nourished and normally developed. HEENT: Head exam is unremarkable. Neck is without jugular venous distension. LUNGS: Lungs are clear to auscultation and percussion. Breath sounds decreased. HEART: Rate and Rhythm are regular. ABDOMEN: Soft, generalized tenderness to touch. EXTREMITITES: No edema. Objective - Vital Signs Vital signs: Vital Signs Temp 98.3 F 10/15/20 07:00 Pulse 88 10/15/20 08:00 Resp 16 10/15/20 07:00 BP 163/94 10/15/20 07:00 Pulse Ox 98 10/15/20 07:00 Intake & Output 10/14/20 10/15/20 10/15/20 18:59 06:59 18:59 Intake Total 600 Balance 600 Weight 92 kg Intake: Oral 600 Other: Voiding Method CAPD # Voids 3 2 # Bowel Movements 5 - Labs CBC & Chem 7: 10/13/20 18:51 10/13/20 18:51 Labs: Abnormal Lab Results - Last 24 Hours (Table) 10/13/20 10/14/20 10/14/20 Range/Units 18:51 11:13 16:27 POC Glucose (mg/dL) 203 H 274 H (75-99) mg/dL Hemoglobin A1c 7.4 H (4.0-6.0) % 10/14/20 10/15/20 Range/Units 20:46 07:06 POC Glucose (mg/dL) 173 H 177 H (75-99) mg/dL Hemoglobin A1c (4.0-6.0) % Assessment and Plan Plan: Assessment: 1. End-stage renal disease maintained on hemodialysis on Thursday schedule. 2. Hypertension with chronic kidney disease. Exacerbated by pain. 3. Anemia of chronic kidney disease. Hemoglobin at goal. 4. Chronic diarrhea. GI following. 5. Diabetes mellitus. 6. Chronic kidney disease mineral bone disease maintained on PhosLo. Plan: Hemodialysis today and tomorrow due to holiday schedule. Home antihypertensives resumed. I will add hydralazine 10 mg IV every 6 hours as needed for systolic blood pressure greater than 160.
[2020-10-15 11:42] LABS: Glucose,Whole Blood 232 mg/dL (75-99)
[2020-10-15] MEDS: DICYCLOMINE 20 MG TAB PO SCH ×4 (11:42→21:44)
[2020-10-15] MEDS: hydrALAZINE HCL 25 MG TAB PO SCH ×3 (11:43→21:44)
[2020-10-15] MEDS: BENZOCAINE/MENTHOL LOZENG 1 EACH LOZENGE MUCOUS MEM PRN (11:43)
[2020-10-15] MEDS: amLODIPine 5 MG TAB PO SCH ×2 (12:44→21:44)
[2020-10-15] MEDS: METOPROLOL SUCCINATE (ER) 50 MG TAB.ER.24H PO SCH (12:45)
[2020-10-15] MEDS: DIPHENOX-ATROP 2.5-0.025 MG 1 EACH TAB PO PRN (12:47)
[2020-10-15] MEDS: ONDANSETRON 4 MG/2 ML VIAL IVP PRN (12:47)
--- NOTE | 2020-10-15 13:09 | P.PN ---
Subjective Progress Note Date: 10/15/20 Principal diagnosis: Abdominal pain, nausea, diarrhea The patient was seen and examined sitting up in bed. He was admitted with complaints of nausea, vomiting, diarrhea, and abdominal pain. She states that she has some nausea, no vomiting. She states she had diarrhea up to 8 times yesterday. She continues with chronic diarrhea. She's had multiple hospitalizations over the last 4-5 months for recurrent symptoms. She has had recent upper and lower endoscopies that were all unremarkable. She has been tested for C. diff several times in the past all which were negative. She has been treated with Questran as well as Imodium as an outpatient and states that is not been helping her. She was treated empirically with antibiotics during her last admission which seemed to help, but she has had relapsing symptoms. The patient also has end-stage renal disease on hemodialysis. Objective - Vital Signs Vital signs: Vital Signs Temp 98.3 F 10/15/20 07:00 Pulse 88 10/15/20 07:00 Resp 16 10/15/20 07:00 BP 163/94 10/15/20 07:00 Pulse Ox 98 10/15/20 07:00 Intake & Output 10/14/20 10/15/20 10/15/20 18:59 06:59 18:59 Intake Total 600 Balance 600 Intake: Oral 600 Other: Voiding Method CAPD # Voids 3 2 # Bowel Movements 5 - Exam General appearance: The patient is alert, oriented, in no acute distress. HET: Head is normocephalic and atraumatic. Conjunctiva pink. Sclera anicteric. Neck: Supple without lymphadenopathy. Abdomen: Soft, diffuse tenderness, nondistended with bowel sounds. No guarding or rigidity. Extremities: Normal skin color and turgor. No pedal edema Neurological: No focal deficits. Alert and oriented 3. - Labs CBC & Chem 7: 10/13/20 18:51 10/13/20 18:51 Labs: Abnormal Lab Results - Last 24 Hours (Table) 10/13/20 10/14/20 10/14/20 Range/Units 18:51 11:13 16:27 POC Glucose (mg/dL) 203 H 274 H (75-99) mg/dL Hemoglobin A1c 7.4 H (4.0-6.0) % 10/14/20 10/15/20 Range/Units 20:46 07:06 POC Glucose (mg/dL) 173 H 177 H (75-99) mg/dL Hemoglobin A1c (4.0-6.0) % Assessment and Plan (1) Diarrhea Narrative/Plan: This patient has a history of chronic diarrhea for the last 4 months duration. She has had extensive workup including an EGD and colonoscopy with biopsies that were unremarkable. Stool collection for 24 hours was ordered last time but was unable to perform because the diarrhea resolved with Imodium and Questran at that time. The patient now states that she's been taking medications as an outpatient basis with no help. Current Visit: Yes Status: Acute Code(s): R19.7 - DIARRHEA, UNSPECIFIED SNOMED Code(s): 63031563 (2) ESRD (end stage renal disease) Current Visit: Yes Status: Acute Code(s): N18.6 - END STAGE RENAL DISEASE SNOMED Code(s): 52430332 (3) Nausea and vomiting Current Visit: Yes Status: Acute Code(s): R11.2 - NAUSEA WITH VOMITING, UNSPECIFIED SNOMED Code(s): 75868776 (4) Abdominal pain Current Visit: No Status: Acute Code(s): R10.9 - UNSPECIFIED ABDOMINAL PAIN SNOMED Code(s): 29080029 (5) Elevated liver enzymes Narrative/Plan: Patient with mild elevation of serum transaminases status post liver biopsy in July 2020 that showed chronic venous congestion of the liver Current Visit: No Status: Acute Code(s): R74.8 - ABNORMAL LEVELS OF OTHER SERUM ENZYMES SNOMED Code(s): 010365044 Plan: 1. Patient started on Bentyl 20 mg 4 times daily 2. Questran 1 packet twice daily 3. Lomotil as needed 4. Renal diet 5. Continue supportive treatment The impression and plan of care has been dictated as directed. I performed a history and examination of this patient, discussed the same with the dictator. I agree with the dictator's note ,documented as a scribe. Any additional findings or plans will be noted.
[2020-10-15] MEDS: PROCHLORPERAZINE 10 MG TAB PO PRN (15:35)
[2020-10-15 16:42] LABS: Glucose,Whole Blood 154 mg/dL (75-99)
[2020-10-15 19:16] LABS: Hepatitis B Surface AB- Quant 3.5 mIU/mL; Hepatitis B Surface Antibody Non-Reactive (Non-Reactive); Hepatitis B Surface Antigen Non-Reactive (Non-Reactive)
[2020-10-15] MEDS: HYDROcodone/APAP 5-325MG 1 EACH TAB PO PRN (21:43)
[2020-10-15] MEDS: PANTOPRAZOLE 40 MG/10 ML VIAL IVP SCH ×2 (21:44→21:46)
[2020-10-15 22:33] LABS: Glucose,Whole Blood 84 mg/dL (75-99)
--- NOTE | 2020-10-16 02:56 | PN ---
PROGRESS NOTE SUBJECTIVE: Nausea, vomiting, diarrhea, abdominal pain. States she does not feel good. She has always got abdominal pain. Clostridium difficile is negative. She continues to have diffuse abdominal pain. Temperature 98.3, respiratory rate 16 to18, pulse 80 to 82, blood pressure 160s over 90s. CARDIOVASCULAR: S1, S2. LUNGS: Clear. GI: Soft. HEMATOLOGY: Negative Homans. PSYCH: Fair mood and affect. LABS: Reviewed. ASSESSMENT: 1. Chronic diarrhea. Extensive workup, unclear etiology. 2. End-stage renal disease. 3. Chronic nausea, vomiting, abdominal pain, unclear. Possibly get a surgeon to see her. Continue with GI recommendations. 4. Mild elevated transaminases. She is on Bentyl 20 mg q.i.d., Questran 1 pack b.i.d., Lomotil, renal diet. Will get surgical consult. Prognosis guarded. MMODL / IJN: [id number] /
[2020-10-16] MEDS: MORPHINE SULFATE 4 MG/ML SYRINGE IV PRN (04:07)
[2020-10-16] MEDS: ONDANSETRON 4 MG/2 ML VIAL IVP PRN (04:07)
[2020-10-16 04:12] LABS: Glucose,Whole Blood 99 mg/dL (75-99)
[2020-10-16] MEDS: PROCHLORPERAZINE 10 MG TAB PO PRN (06:05)
[2020-10-16] MEDS: HYDROcodone/APAP 5-325MG 1 EACH TAB PO PRN (06:05)
[2020-10-16 07:01] LABS: Glucose,Whole Blood 135 mg/dL (75-99)
[2020-10-16] MEDS: hydrALAZINE HCL 25 MG TAB PO SCH ×3 (08:53→21:23)
[2020-10-16] MEDS: PANTOPRAZOLE 40 MG/10 ML VIAL IVP SCH (08:57)
[2020-10-16] MEDS: amLODIPine 5 MG TAB PO SCH ×2 (08:57→21:23)
[2020-10-16] MEDS: REPAGLINIDE 1 MG TAB PO SCH ×2 (08:59→18:59)
[2020-10-16] MEDS: CALCIUM ACETATE 667 MG TAB PO SCH ×2 (09:00→15:17)
[2020-10-16] MEDS: CLOPIDOGREL 75 MG TAB PO SCH (09:00)
[2020-10-16] MEDS: LORATADINE 10 MG TAB PO SCH (09:01)
[2020-10-16] MEDS: APIXABAN 2.5 MG TABLET PO SCH ×2 (09:01→21:23)
[2020-10-16] MEDS: DICYCLOMINE 20 MG TAB PO SCH ×3 (09:03→21:23)
[2020-10-16] MEDS: CHOLESTYRAMINE (WITH SUGAR) 4 GM PACKET PO SCH ×2 (09:05→15:17)
[2020-10-16] MEDS ORDERED: FAMOTIDINE 20 MG/2 ML VIAL IV SCH (09:15)
[2020-10-16 09:17] LABS: Anisocytosis Slight; Basophils # (A) 0.1 k/uL (0-0.2); Basophils % (A) 1 %; Eosinophils # (A) 0.2 k/uL (0-0.7); Eosinophils % (A) 2 %; HCT 29.1 % (34.0-46.0); HGB 9.8 gm/dL (11.4-16.0); Lymphocytes # (A) 0.6 k/uL (1.0-4.8); Lymphocytes % (A) 7 %; MCH 29.9 pg (25.0-35.0); MCHC 33.6 g/dL (31.0-37.0); Mean Platelet Volume 9.2; Monocytes # (A) 0.2 k/uL (0-1.0); Monocytes % (A) 3 %; Neutrophils # (A) 7.1 k/uL (1.3-7.7); Neutrophils % (A) 86 %; Platelet Count 248 k/uL (150-450); RBC 3.27 m/uL (3.80-5.40); RDW 16.3 % (11.5-15.5); WBC 8.2 k/uL (3.8-10.6)
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
--- NOTE | 2020-10-16 11:18 | P.PN ---
Subjective Patient is seen in follow-up for end-stage renal disease. She is maintained on hemodialysis on Thursday schedule. Diarrhea has improved. Tolerating dialysis. No changes overnight. Vital signs are stable. General: The patient appeared well nourished and normally developed. HEENT: Head exam is unremarkable. Neck is without jugular venous distension. LUNGS: Lungs are clear to auscultation and percussion. Breath sounds decreased. HEART: Rate and Rhythm are regular. ABDOMEN: Soft, generalized tenderness to touch. EXTREMITITES: No edema. Objective - Vital Signs Vital signs: Vital Signs Temp 97.8 F 10/16/20 07:00 Pulse 88 10/16/20 07:00 Resp 19 10/16/20 07:00 BP 125/63 10/16/20 07:00 Pulse Ox 90 L 10/16/20 07:00 Intake & Output 10/15/20 10/16/20 10/16/20 18:59 06:59 18:59 Output Total 2550 Balance -2550 Output: Emesis 50 Hemodialysis 2500 Other: Voiding Method Toilet CAPD # Voids 6 2 # Bowel Movements 6 - Labs CBC & Chem 7: 10/16/20 09:10 10/13/20 18:51 Labs: Abnormal Lab Results - Last 24 Hours (Table) 10/15/20 10/15/20 10/16/20 Range/Units 11:40 16:38 06:59 RBC (3.80-5.40) m/uL Hgb (11.4-16.0) gm/dL Hct (34.0-46.0) % RDW (11.5-15.5) % Lymphocytes # (1.0-4.8) k/uL POC Glucose (mg/dL) 232 H 154 H 135 H (75-99) mg/dL 10/16/20 Range/Units 09:10 RBC 3.27 L (3.80-5.40) m/uL Hgb 9.8 L (11.4-16.0) gm/dL Hct 29.1 L (34.0-46.0) % RDW 16.3 H (11.5-15.5) % Lymphocytes # 0.6 L (1.0-4.8) k/uL POC Glucose (mg/dL) (75-99) mg/dL Assessment and Plan Plan: Assessment: 1. End-stage renal disease maintained on hemodialysis on Thursday schedule. 2. Hypertension with chronic kidney disease. Exacerbated by pain. Controlled this morning. 3. Anemia of chronic kidney disease. Rule out iron deficiency. 4. Chronic diarrhea. GI following. Improved. 5. Diabetes mellitus. 6. Chronic kidney disease mineral bone disease maintained on PhosLo. Plan: Currently seen while undergoing hemodialysis. Check iron studies.
[2020-10-16 11:21] LABS: Glucose,Whole Blood 109 mg/dL (75-99)
[2020-10-16] MEDS: METOPROLOL SUCCINATE (ER) 50 MG TAB.ER.24H PO SCH (12:31)
[2020-10-16] MEDS: PREGABALIN 75 MG CAP PO SCH ×2 (12:31→21:23)
--- NOTE | 2020-10-16 12:44 | P.PN ---
Subjective Progress Note Date: 10/16/20 Principal diagnosis: Abdominal pain, nausea, diarrhea Patient was seen and evaluated lying in bed very drowsy, however arousable. She was receiving hemodialysis this morning. She states that she is having diffuse abdominal pain. She had no further episodes of diarrhea through the night according to the nurse. Still has some nausea, but no vomiting at this time. The patient was apparently getting IV or pain around the clock through the night and also a dose of Vicodin this morning. Wilkerson is refusing her Protonix that she states it makes her acid reflux worse. She is also refusing to take the Questran. Objective - Vital Signs Vital signs: Vital Signs Temp 97.8 F 10/16/20 07:00 Pulse 88 10/16/20 07:00 Resp 19 10/16/20 07:00 BP 125/63 10/16/20 07:00 Pulse Ox 90 L 10/16/20 07:00 Intake & Output 10/15/20 10/16/20 10/16/20 18:59 06:59 18:59 Output Total 2550 Balance -2550 Output: Emesis 50 Hemodialysis 2500 Other: Voiding Method Toilet CAPD # Voids 6 2 # Bowel Movements 6 - Exam General appearance: The patient is alert, oriented, in no acute distress. HET: Head is normocephalic and atraumatic. Conjunctiva pink. Sclera anicteric. Neck: Supple without lymphadenopathy. Abdomen: Soft, diffuse tenderness, mildy distended with bowel sounds. No guarding or rigidity. Extremities: Normal skin color and turgor. No pedal edema Neurological: No focal deficits. Alert and oriented 3. - Labs CBC & Chem 7: 10/16/20 09:10 10/13/20 18:51 Labs: Abnormal Lab Results - Last 24 Hours (Table) 10/15/20 10/15/20 10/16/20 Range/Units 11:40 16:38 06:59 POC Glucose (mg/dL) 232 H 154 H 135 H (75-99) mg/dL Assessment and Plan (1) Diarrhea Narrative/Plan: This patient has a history of chronic diarrhea for the last 4 months duration. She has had extensive workup including an EGD and colonoscopy with biopsies that were unremarkable. Stool collection for 24 hours was ordered last time but was unable to perform because the diarrhea resolved with Imodium and Questran at that time. The patient now states that she's been taking medications as an outpatient basis with no help. Current Visit: Yes Status: Acute Code(s): R19.7 - DIARRHEA, UNSPECIFIED SNOMED Code(s): 40026365 (2) ESRD (end stage renal disease) Current Visit: Yes Status: Acute Code(s): N18.6 - END STAGE RENAL DISEASE SNOMED Code(s): 87724739 (3) Nausea and vomiting Current Visit: Yes Status: Acute Code(s): R11.2 - NAUSEA WITH VOMITING, UNSPECIFIED SNOMED Code(s): 19686393 (4) Abdominal pain Current Visit: No Status: Acute Code(s): R10.9 - UNSPECIFIED ABDOMINAL PAIN SNOMED Code(s): 30664864 (5) Elevated liver enzymes Narrative/Plan: Patient with mild elevation of serum transaminases status post liver biopsy in July 2020 that showed chronic venous congestion of the liver Current Visit: No Status: Acute Code(s): R74.8 - ABNORMAL LEVELS OF OTHER SERUM ENZYMES SNOMED Code(s): 888843814 Plan: 1. Patient started on Bentyl 20 mg 4 times daily 2. Questran 1 packet twice daily 3. Lomotil as needed 4. Renal diet 5. Continue supportive treatment 6. Will discontinue Protonix and change to Pepcid as patient is refusing to take Protonix. We'll also add Maalox as needed. 7. No plan on any endoscopic evaluation as patient has had recent upper and lower endoscopy 7. Surgery is on consult The impression and plan of care has been dictated as directed. I performed a history and examination of this patient, discussed the same with the dictator. I agree with the dictator's note ,documented as a scribe. Any additional findings or plans will be noted.
[2020-10-16 16:26] LABS: African American GFR (CKD) 18.4 (60.0-200.0); Albumin 3.1 g/dL (3.80-4.90); Albumin/Globulin Ratio 1.15 (1.60-3.17); Anion Gap 11.1 mmol/L (4.00-12.00); BUN/Creat Ratio 5.31 Ratio (12.00-20.00); Carbon Dioxide 25.9 mmol/L (21.6-31.8); Globulin 2.7 g/dL (1.6-3.3); Non-African American GFR(CKD) 15.9 (60.0-200.0); Phosphorus 4.6 mg/dL (2.4-5.1); Potassium 5.3 mmol/L (3.5-5.5); Total Bilirubin 1.4 mg/dL (0.2-1.2); Total Protein 5.8 g/dL (6.2-8.2)
[2020-10-16 17:06] LABS: Glucose,Whole Blood 86 mg/dL (75-99)
[2020-10-16 18:52] LABS: % Iron Saturation 19.72 (12.00-45.00)
[2020-10-16 19:05] LABS: Ferritin 881.9 ng/mL (10.0-291.0)
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
[2020-10-16 20:59] LABS: Glucose,Whole Blood 150 mg/dL (75-99)
[2020-10-17] MEDS: MAG HYDROX/AL HYDROX/SIMETH 30 ML CUP PO PRN ×2 (00:05→04:11)
[2020-10-17] MEDS: HYDROcodone/APAP 5-325MG 1 EACH TAB PO PRN ×3 (00:12→19:30)
[2020-10-17] MEDS: DICYCLOMINE 20 MG TAB PO SCH ×5 (00:21→21:17)
--- NOTE | 2020-10-17 03:09 | PN ---
PROGRESS NOTE She remains lethargic, morphine has been discontinued. Anything that would make her lethargic has been stopped. Her diarrhea is improving with formed bowel movements today. CARDIOVASCULAR: S1, S2. LUNGS: Clear. GI: Increased bowel sounds. HEMATOLOGY: Negative Homans. ASSESSMENT: 1. Chronic diarrhea. 2. Abdominal pain. 3. End-stage renal disease. 4. Hypertension. 5. Irritable bowel syndrome. 6. Allergic rhinitis. Prognosis guarded. Follow up in next 24 to 48 hours. Hold any lethargic type medications. Will follow up in next 24 to 48 hours. MMODL / IJN: [id number] /
[2020-10-17 07:03] LABS: Glucose,Whole Blood 105 mg/dL (75-99)
[2020-10-17] MEDS: CALCIUM ACETATE 667 MG TAB PO SCH ×2 (07:51→17:11)
[2020-10-17] MEDS: REPAGLINIDE 1 MG TAB PO SCH ×2 (07:51→17:11)
[2020-10-17] MEDS: CLOPIDOGREL 75 MG TAB PO SCH (08:43)
[2020-10-17] MEDS: APIXABAN 2.5 MG TABLET PO SCH ×2 (08:43→19:30)
[2020-10-17] MEDS: FAMOTIDINE 20 MG TAB PO SCH (08:44)
[2020-10-17] MEDS: LORATADINE 10 MG TAB PO SCH (08:45)
[2020-10-17] MEDS: amLODIPine 5 MG TAB PO SCH ×2 (08:46→19:30)
[2020-10-17] MEDS: hydrALAZINE HCL 25 MG TAB PO SCH ×3 (08:47→21:17)
[2020-10-17] MEDS: PREGABALIN 75 MG CAP PO SCH ×2 (08:47→19:30)
[2020-10-17] MEDS: CHOLESTYRAMINE (WITH SUGAR) 4 GM PACKET PO SCH ×2 (08:48→17:12)
--- NOTE | 2020-10-17 09:00 | CT ---
EXAMINATION TYPE: CT brain wo con DATE OF EXAM: 10/17/2020 HISTORY: Dizziness and weakness. CT DLP: 1219 mGycm. Automated Exposure Control for Dose Reduction was Utilized. TECHNIQUE: CT scan of the head is performed without contrast. COMPARISON: CT brain May 21, 2020. FINDINGS: There is no acute intracranial hemorrhage or midline shift identified. There is diffuse v entricular and sulcal prominence consistent with diffuse age-related cerebral atrophy. There is low- attenuation in the periventricular white matter most likely consistent with chronic small vessel isch emic change in patient of this age. The globes are intact and the visualized sinuses are clear. Ne w opacification left mastoid air cells. Vascular dilatation distal internal carotid arteries bilatera lly redemonstrated. IMPRESSION: No acute intracranial hemorrhage or midline shift. There is mild diffuse age-related ce rebral atrophy and moderate chronic small vessel ischemic change redemonstrated. New left-sided mast oiditis suspected, correlate clinically.
[2020-10-17] MEDS: METOPROLOL SUCCINATE (ER) 50 MG TAB.ER.24H PO SCH (10:02)
[2020-10-17 11:42] LABS: Glucose,Whole Blood 104 mg/dL (75-99)
--- NOTE | 2020-10-17 12:25 | P.PN ---
Subjective Progress Note Date: 10/17/20 CHIEF COMPLAINT: Abdominal pain with nausea, vomiting and diarrhea HISTORY OF PRESENT ILLNESS: Patient is being followed for her abdominal pain with vomiting and diarrhea. She's had no further episodes of nausea or vomiting. She did have 2 loose stools and one more formed stool through the night. She still reports poor appetite. She still complains of abdominal pain. She had hemodialysis yesterday. She was seen by neurology regarding her lethargy and mentation. They felt that toxic metabolic encephalopathy related to pain medication and end-stage renal disease. Patient is afebrile. Her men tation is much improved today. Agree with discontinuing the morphine PHYSICAL EXAM: VITAL SIGNS: Reviewed. GENERAL: Well-developed in no acute distress. HEENT: No sclera icterus. Extraocular movements grossly intact. Moist buccal mucosa. Head is atraumatic, normocephalic. ABDOMEN: Soft. Nondistended. Diffuse tenderness NEUROLOGIC: Alert and oriented. Cranial nerves II through XII grossly intact. ASSESSMENT: 1. Abdominal pain with nausea vomiting and diarrhea. She's had recent EGD and colonoscopy in August that were unremarkable. 2. Patient is status post cholecystectomy in August 2020 3. Mild elevation of liver enzymes status post liver biopsy in July 2020 that showed chronic venous congestion of the liver 4. End-stage renal disease hemodialysis dependent PLAN: -Recommend to continue the Questran, Bentyl and Lomotil as needed -Continue supportive care -Continue renal, low-fat diet -No surgical intervention planned at this time Physician Barge Captain note has been reviewed by physician. Signing provider agrees with the documented findings, assessment, and plan of care. Objective - Vital Signs Vital signs: Vital Signs Temp 98.5 F 10/17/20 05:49 Pulse 85 10/17/20 05:49 Resp 18 10/17/20 05:49 BP 118/72 10/17/20 05:49 Pulse Ox 100 10/17/20 05:49 Intake & Output 10/16/20 10/17/20 10/17/20 18:59 06:59 18:59 Intake Total 200 Output Total 1500 Balance -1500 200 Weight 86.5 kg Intake: Oral 200 Output: Hemodialysis 1500 Other: Voiding Method Toilet CAPD # Voids 1 1 - Labs CBC & Chem 7: 10/16/20 09:10 10/16/20 09:10 Labs: Abnormal Lab Results - Last 24 Hours (Table) 10/16/20 10/16/20 10/16/20 Range/Units 09:10 12:18 20:53 Creatinine 3.2 H (0.6-1.5) mg/dL Est GFR (CKD-EPI)AfAm 18.4 L (60.0-200.0) Est GFR (CKD-EPI)NonAf 15.9 L (60.0-200.0) BUN/Creatinine Ratio 5.31 L (12.00-20.00) Ratio Glucose 134 H (70-110) mg/dL POC Glucose (mg/dL) 150 H (75-99) mg/dL Calcium 7.0 L (8.7-10.3) mg/dL Iron 42 L (50-170) ug/dL TIBC 213 L (228-460) ug/dL Ferritin 881.9 H (10.0-291.0) ng/mL Total Bilirubin 1.4 H (0.2-1.2) mg/dL Alkaline Phosphatase 489 H (41-126) U/L Total Protein 5.8 L (6.2-8.2) g/dL Albumin 3.10 L (3.80-4.90) g/dL Albumin/Globulin Ratio 1.15 L (1.60-3.17) g/dL 10/17/20 10/17/20 Range/Units 07:00 11:38 Creatinine (0.6-1.5) mg/dL Est GFR (CKD-EPI)AfAm (60.0-200.0) Est GFR (CKD-EPI)NonAf (60.0-200.0) BUN/Creatinine Ratio (12.00-20.00) Ratio Glucose (70-110) mg/dL POC Glucose (mg/dL) 105 H 104 H (75-99) mg/dL Calcium (8.7-10.3) mg/dL Iron (50-170) ug/dL TIBC (228-460) ug/dL Ferritin (10.0-291.0) ng/mL Total Bilirubin (0.2-1.2) mg/dL Alkaline Phosphatase (41-126) U/L Total Protein (6.2-8.2) g/dL Albumin (3.80-4.90) g/dL Albumin/Globulin Ratio (1.60-3.17) g/dL
--- NOTE | 2020-10-17 12:36 | P.PN ---
Subjective Patient is seen in follow-up for end-stage renal disease. She is maintained on hemodialysis on Thursday schedule. Still has diarrhea but better since admission. Oral intake fair. Vital signs are stable. General: The patient appeared well nourished and normally developed. HEENT: Head exam is unremarkable. Neck is without jugular venous distension. LUNGS: Lungs are clear to auscultation and percussion. Breath sounds decreased. HEART: Rate and Rhythm are regular. ABDOMEN: Soft, generalized tenderness to touch. EXTREMITITES: No edema. Objective - Vital Signs Vital signs: Vital Signs Temp 98.5 F 10/17/20 05:49 Pulse 85 10/17/20 05:49 Resp 18 10/17/20 05:49 BP 118/72 10/17/20 05:49 Pulse Ox 100 10/17/20 05:49 Intake & Output 10/16/20 10/17/20 10/17/20 18:59 06:59 18:59 Intake Total 200 Output Total 1500 Balance -1500 200 Weight 86.5 kg Intake: Oral 200 Output: Hemodialysis 1500 Other: Voiding Method Toilet CAPD # Voids 1 1 - Labs CBC & Chem 7: 10/16/20 09:10 10/16/20 09:10 Labs: Abnormal Lab Results - Last 24 Hours (Table) 10/16/20 10/16/20 10/16/20 Range/Units 09:10 12:18 20:53 Creatinine 3.2 H (0.6-1.5) mg/dL Est GFR (CKD-EPI)AfAm 18.4 L (60.0-200.0) Est GFR (CKD-EPI)NonAf 15.9 L (60.0-200.0) BUN/Creatinine Ratio 5.31 L (12.00-20.00) Ratio Glucose 134 H (70-110) mg/dL POC Glucose (mg/dL) 150 H (75-99) mg/dL Calcium 7.0 L (8.7-10.3) mg/dL Iron 42 L (50-170) ug/dL TIBC 213 L (228-460) ug/dL Ferritin 881.9 H (10.0-291.0) ng/mL Total Bilirubin 1.4 H (0.2-1.2) mg/dL Alkaline Phosphatase 489 H (41-126) U/L Total Protein 5.8 L (6.2-8.2) g/dL Albumin 3.10 L (3.80-4.90) g/dL Albumin/Globulin Ratio 1.15 L (1.60-3.17) g/dL 10/17/20 10/17/20 Range/Units 07:00 11:38 Creatinine (0.6-1.5) mg/dL Est GFR (CKD-EPI)AfAm (60.0-200.0) Est GFR (CKD-EPI)NonAf (60.0-200.0) BUN/Creatinine Ratio (12.00-20.00) Ratio Glucose (70-110) mg/dL POC Glucose (mg/dL) 105 H 104 H (75-99) mg/dL Calcium (8.7-10.3) mg/dL Iron (50-170) ug/dL TIBC (228-460) ug/dL Ferritin (10.0-291.0) ng/mL Total Bilirubin (0.2-1.2) mg/dL Alkaline Phosphatase (41-126) U/L Total Protein (6.2-8.2) g/dL Albumin (3.80-4.90) g/dL Albumin/Globulin Ratio (1.60-3.17) g/dL Assessment and Plan Plan: Assessment: 1. End-stage renal disease maintained on hemodialysis on Thursday schedule. 2. Hypertension with chronic kidney disease. Controlled. 3. Anemia of chronic kidney disease. Iron deficiency noted. 4. Chronic diarrhea. GI following. Improved. 5. Diabetes mellitus. 6. Chronic kidney disease mineral bone disease maintained on PhosLo. Plan: Hemodialysis on Thursday. I will give her a dose of IV iron today.
[2020-10-17] MEDS ORDERED: SODIUM FERRIC GLUCONAT-SUCROSE 125 MG in SODIUM CHLORIDE 0.9% 100 ML IVPB ONE (13:30)
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
--- NOTE | 2020-10-17 16:44 | P.PN ---
Subjective Progress Note Date: 10/17/20 Principal diagnosis: Chronic diarrhea, abdominal pain Patient seen lying in bed reporting abdominal pain. No nausea or vomiting. Bowel movements improved. Objective - Vital Signs Vital signs: Vital Signs Temp 98.5 F 10/17/20 05:49 Pulse 85 10/17/20 05:49 Resp 18 10/17/20 05:49 BP 118/72 10/17/20 05:49 Pulse Ox 100 10/17/20 05:49 Intake & Output 10/16/20 10/17/20 10/17/20 18:59 06:59 18:59 Intake Total 200 Output Total 1500 Balance -1500 200 Weight 86.5 kg Intake: Oral 200 Output: Hemodialysis 1500 Other: Voiding Method Toilet CAPD # Voids 1 1 - Exam On physical examination, patient appears comfortable in no apparent distress. HEAD: Normocephalic, atraumatic. EYES: No scleral icterus. No conjunctival injection. MOUTH: No lesions, tongue midline. NECK: Trachea midline, no gross abnormalities. ABDOMEN: Soft, mildly tender to palpation. Bowel sounds are positive. No organom egaly. No guarding or rigidity. EXTREMITIES: No pedal edema. SKIN: No rashes, no jaundice. NEUROLOGIC: Alert and oriented x3. No focal deficits. - Labs CBC & Chem 7: 10/16/20 09:10 10/16/20 09:10 Labs: Abnormal Lab Results - Last 24 Hours (Table) 10/16/20 10/16/20 10/16/20 Range/Units 09:10 12:18 20:53 Creatinine 3.2 H (0.6-1.5) mg/dL Est GFR (CKD-EPI)AfAm 18.4 L (60.0-200.0) Est GFR (CKD-EPI)NonAf 15.9 L (60.0-200.0) BUN/Creatinine Ratio 5.31 L (12.00-20.00) Ratio Glucose 134 H (70-110) mg/dL POC Glucose (mg/dL) 150 H (75-99) mg/dL Calcium 7.0 L (8.7-10.3) mg/dL Iron 42 L (50-170) ug/dL TIBC 213 L (228-460) ug/dL Ferritin 881.9 H (10.0-291.0) ng/mL Total Bilirubin 1.4 H (0.2-1.2) mg/dL Alkaline Phosphatase 489 H (41-126) U/L Total Protein 5.8 L (6.2-8.2) g/dL Albumin 3.10 L (3.80-4.90) g/dL Albumin/Globulin Ratio 1.15 L (1.60-3.17) g/dL 10/17/20 10/17/20 Range/Units 07:00 11:38 Creatinine (0.6-1.5) mg/dL Est GFR (CKD-EPI)AfAm (60.0-200.0) Est GFR (CKD-EPI)NonAf (60.0-200.0) BUN/Creatinine Ratio (12.00-20.00) Ratio Glucose (70-110) mg/dL POC Glucose (mg/dL) 105 H 104 H (75-99) mg/dL Calcium (8.7-10.3) mg/dL Iron (50-170) ug/dL TIBC (228-460) ug/dL Ferritin (10.0-291.0) ng/mL Total Bilirubin (0.2-1.2) mg/dL Alkaline Phosphatase (41-126) U/L Total Protein (6.2-8.2) g/dL Albumin (3.80-4.90) g/dL Albumin/Globulin Ratio (1.60-3.17) g/dL Assessment and Plan (1) Diarrhea Narrative/Plan: This patient has a history of chronic diarrhea for the last 4 months duration. She has had extensive workup including an EGD and colonoscopy with biopsies that were unremarkable. Stool collection for 24 hours was ordered last time but was unable to perform because the diarrhea resolved with Imodium and Questran at that time. The patient now states that she's been taking medications as an outpatient basis with no help. However, bowel movements have improved today. Current Visit: Yes Status: Acute Code(s): R19.7 - DIARRHEA, UNSPECIFIED S NOMED Code(s): 51063355 (2) Abdominal pain Current Visit: No Status: Acute Code(s): R10.9 - UNSPECIFIED ABDOMINAL PAIN SNOMED Code(s): 52538538 (3) Elevated liver enzymes Narrative/Plan: Patient with mild elevation of serum transaminases status post liver biopsy in July 2020 that showed chronic venous congestion of the liver Current Visit: No Status: Acute Code(s): R74.8 - ABNORMAL LEVELS OF OTHER SERUM ENZYMES SNOMED Code(s): 523127515 Plan: 1. Patient started on Bentyl 20 mg 4 times daily 2. Questran 1 packet twice daily 3. Lomotil as needed 4. Renal diet 5. Continue supportive treatment 6. Will discontinue Protonix and change to Pepcid as patient is refusing to take Protonix. We'll also add Maalox as needed. 7. No plan on any endoscopic evaluation as patient has had recent upper and lower endoscopy 8. Surgery is on consult 9. IV iron ordered by nephrology service today
[2020-10-17 17:36] LABS: Glucose,Whole Blood 72 mg/dL (75-99)
[2020-10-17 17:36] LABS: Glucose,Whole Blood 68 mg/dL (75-99)
--- NOTE | 2020-10-17 18:20 | P.PN ---
Subjective Progress Note Date: 10/17/20 She was seen at bedside and the she stated that she continues to have abdominal pain and feels nauseous. She denies of any the visual disturbance, slurring the speech, any focal weakness, or sensory loss. In the morning the patient refused to get a routine EEG and she said that there is nothing wrong with her brain. Per the patient nurse the patient did not receive any pain medication and she refuses to be discharged home. Objective - Vital Signs Vital signs: Vital Signs Temp 98.4 F 10/17/20 15:00 Pulse 82 10/17/20 15:00 Resp 20 10/17/20 15:00 BP 137/80 10/17/20 15:00 Pulse Ox 96 10/17/20 15:00 Intake & Output 10/16/20 10/17/20 10/17/20 18:59 06:59 18:59 Intake Total 200 Output Total 1500 Balance -1500 200 Weight 86.5 kg Intake: Oral 200 Output: Hemodialysis 1500 Other: Voiding Method Toilet CAPD # Voids 1 1 2 - Exam GENERAL: The patient is lying in bed and is not in acute distress. NEUROLOGICAL: Higher mental function: The patient is awake, alert, oriented to self, place and time. Patient is following simple commands. No aphasia and no neglect. Cranial nerves: The pupils are round, equal and reactive to light and accommodation. Visual tavera are full to confrontation throughout. Extraocular movement is intact no nystagmus is noted. Facial sensation is normal to touch throughout. The facial strength is normal throughout. Hearing is normal bilaterally to hand rub. Tongue is midline and moved [id number] without any difficulty. No dysarthria is noted. Shoulder shrug is normal bilaterally. Motor: Gait is deferred. The strength is 5-/5 throughout bilateral upper extremities. He was moving all lower extremity above gravity without any difficulties. Normal tone and bulk. Cerebellum: Normal finger to nose bilaterally. Sensation: Sensation is normal to touch throughout. Reflexes (right/left): 2+ throughout. Plantars are downgoing bilaterally. - Labs CBC & Chem 7: 10/16/20 09:10 10/16/20 09:10 Labs: Abnormal Lab Results - Last 24 Hours (Table) 10/16/20 10/16/20 10/17/20 Range/Units 12:18 20:53 07:00 POC Glucose (mg/dL) 150 H 105 H (75-99) mg/dL Iron 42 L (50-170) ug/dL TIBC 213 L (228-460) ug/dL Ferritin 881.9 H (10.0-291.0) ng/mL 10/17/20 10/17/20 10/17/20 Range/Units 11:38 17:13 17:28 POC Glucose (mg/dL) 104 H 68 L 72 L (75-99) mg/dL Iron (50-170) ug/dL TIBC (228-460) ug/dL Ferritin (10.0-291.0) ng/mL Assessment and Plan Assessment: Toxic metabolic encephalopathy possibly due to multifactorial (medication use and mostly it's due to opiate medication as well as her end-stage renal disease on dialysis can have an effect on her condition)--improved Abdominal pain and nausea Diabetes mellitus Coronary artery disease status post stent History of CABG End-stage renal disease on dialysis History of DVT on Eliquis Plan: CT of the head: No acute intracranial hemorrhage or midline shift. There is mild diffuse age-related cerebral atrophy and moderate chronic small vessel ischemic changes redemonstrated. Left-sided mastoiditis suspected, correlate clinically. Patient refused to get an EEG in the morning. The history and physical examination patient does not have any seizure and I'll not start the patient on any antiepileptic drug. Pending vitamin B12 as well as folate. I'll also repeat the TSH. Continue physical therapy and occupation therapy. Psychiatric gentleman is consulted and they felt the patient had adjustment disorder with depressive features. They recommend then the medication changes but patient's refused to be on any psychotropic medication. Please avoid the as much as possible providing narcotic which can affect the patient's mental status. From a neurology perspective patient is clear for discharge. Landon Orozco M.D. Neuro-hospitalist Time with Patient: Less than 30
[2020-10-17 19:15] LABS: Glucose,Whole Blood 128 mg/dL (75-99)
--- NOTE | 2020-10-18 01:35 | PN ---
PROGRESS NOTE 50-year-old female having no chest pain, shortness of breath. Cleared by Neurology, surgery, Psychiatry for discharge as well as GI, but she says she is too weak to go home. She has refused any depression medication from Psychiatry. Vital signs stable. Afebrile. Cardiovascular S1, S2. Hematology: Negative Homans. She refuses to be discharged home. She refused to get a routine EEG. ASSESSMENT: 1. Toxic metabolic encephalopathy, possibly due to medication. Morphine has been stopped over 24 hours ago. 2. End-stage renal disease. 3. Abdominal pain, nausea, chronic diarrhea, improved. 4. Diabetes mellitus. 5. Coronary artery disease. 6. Coronary artery bypass grafting. 7. End-stage renal disease. 8. CT of the head is normal. 9. Left-sided mastoiditis suspected. Physical therapy, occupational therapy. No narcotics will be given through the IV. The patient is to get up and get moving. MMODL / IJN: [id number] /
[2020-10-18 07:10] LABS: Glucose,Whole Blood 112 mg/dL (75-99)
[2020-10-18] MEDS: CHOLESTYRAMINE (WITH SUGAR) 4 GM PACKET PO SCH ×2 (08:57→17:30)
[2020-10-18] MEDS: REPAGLINIDE 1 MG TAB PO SCH ×2 (08:57→16:50)
[2020-10-18] MEDS: LORATADINE 10 MG TAB PO SCH (08:58)
[2020-10-18] MEDS: FAMOTIDINE 20 MG TAB PO SCH (08:58)
[2020-10-18] MEDS: DICYCLOMINE 20 MG TAB PO SCH ×4 (08:58→21:25)
[2020-10-18] MEDS: APIXABAN 2.5 MG TABLET PO SCH ×2 (08:58→21:24)
[2020-10-18] MEDS: CLOPIDOGREL 75 MG TAB PO SCH (08:58)
[2020-10-18] MEDS: CALCIUM ACETATE 667 MG TAB PO SCH ×2 (08:58→16:50)
[2020-10-18] MEDS: hydrALAZINE HCL 25 MG TAB PO SCH ×3 (08:59→22:00)
[2020-10-18] MEDS: amLODIPine 5 MG TAB PO SCH ×2 (08:59→22:00)
[2020-10-18] MEDS: METOPROLOL SUCCINATE (ER) 50 MG TAB.ER.24H PO SCH (08:59)
[2020-10-18] MEDS: PREGABALIN 75 MG CAP PO SCH ×2 (08:59→21:24)
--- NOTE | 2020-10-18 10:28 | PN ---
PROGRESS NOTE The patient is lying moaning in bed, complaining of right lateral abdominal pain. We are going to try a muscle relaxer. She is after pain medications and we are not going to give her that. She is already on low-dose chronic pain medicine. We will give her a muscle relaxer and see if that helps, maybe a heating pad. She has refusing to go home. Cardiovascular S1, S2. Lungs clear. GI shows tenderness to palpation of the right flank with just minimal palpation. Possible muscle spasm from laying in bed and not moving around. Continue muscle relaxer for abdominal pain. Dialysis for end-stage renal disease. Prognosis is guarded. MMODL / IJN: [id number] /
[2020-10-18 11:49] LABS: Glucose,Whole Blood 106 mg/dL (75-99)
--- NOTE | 2020-10-18 11:51 | P.PN ---
Progress Note - Text Progress Note Date: 10/18/20 Patient's resting comfortably. She still has complaints of abdominal pain. On exam vital signs are stable. Abdomen soft. There is minimal tenderness. There is no rebound or guarding. Patient has chronic abdominal pain. 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 Patient will be treated conservatively. No surgical intervention is planned.
[2020-10-18] MEDS: CYCLOBENZAPRINE 5 MG TAB PO PRN ×2 (14:23→22:00)
--- NOTE | 2020-10-18 15:25 | P.PN ---
Subjective Progress Note Date: 10/18/20 Follow-up for ESRD. Objective - Vital Signs Vital signs: Vital Signs Temp 97.5 F L 10/18/20 15:00 Pulse 81 10/18/20 15:00 Resp 16 10/18/20 15:00 BP 162/94 10/18/20 15:00 Pulse Ox 99 10/18/20 15:00 Intake & Output 10/17/20 10/18/20 10/18/20 18:59 06:59 18:59 Intake Total 200 Balance 200 Weight 88 kg Intake: Oral 200 Other: Voiding Method Toilet # Voids 2 1 2 - Exam No acute distress S1-S2 heard lungs clear No edema - Labs CBC & Chem 7: 10/16/20 09:10 10/16/20 09:10 Labs: Abnormal Lab Results - Last 24 Hours (Table) 10/17/20 10/17/20 10/17/20 Range/Units 17:13 17:28 19:10 POC Glucose (mg/dL) 68 L 72 L 128 H (75-99) mg/dL 10/18/20 10/18/20 Range/Units 07:07 11:43 POC Glucose (mg/dL) 112 H 106 H (75-99) mg/dL Assessment and Plan Assessment: #1 ESRD MWF #2 hypertension with ESRD #3 anemia with ESRD #4 metabolic bone disease with ESRD #5 chronic diarrhea Plan: #1 HD on Thursday #2 ESRD medications
--- NOTE | 2020-10-18 15:53 | P.PN ---
Subjective Progress Note Date: 10/18/20 Principal diagnosis: Chronic diarrhea, abdominal pain Patient seen lying in bed reporting continuing to report abdominal pain. Bowel movements improved. She has tolerated diet. Objective - Vital Signs Vital signs: Vital Signs Temp 97.6 F 10/18/20 04:35 Pulse 82 10/18/20 04:35 Resp 16 10/18/20 04:35 BP 152/83 10/18/20 04:35 Pulse Ox 92 L 10/18/20 04:35 Intake & Output 10/17/20 10/18/20 10/18/20 18:59 06:59 18:59 Intake Total 200 Balance 200 Weight 88 kg Intake: Oral 200 Other: Voiding Method Toilet # Voids 2 1 - Exam On physical examination, patient appears comfortable in no apparent distress. HEAD: Normocephalic, atraumatic. EYES: No scleral icterus. No conjunctival injection. MOUTH: No lesions, tongue midline. NECK: Trachea midline, no gross abnormalities. ABDOMEN: Soft, mildly tender to palpation. Bowel sounds are positive. No organomegaly. No guarding or rigidity. EXTREMITIES: No pedal edema. SKIN: No rashes, no jaundice. NEUROLOGIC: Alert and oriented x3. No focal deficits. - Labs CBC & Chem 7: 10/16/20 09:10 10/16/20 09:10 Labs: Abnormal Lab Results - Last 24 Hours (Table) 10/17/20 10/17/20 10/17/20 Range/Units 11:38 17:13 17:28 POC Glucose (mg/dL) 104 H 68 L 72 L (75-99) mg/dL 10/17/20 10/18/20 Range/Units 19:10 07:07 POC Glucose (mg/dL) 128 H 112 H (75-99) mg/dL Assessment and Plan (1) Diarrhea Narrative/Plan: This patient has a history of chronic diarrhea for the last 4 months duration. She has had extensive workup including an EGD and colonoscopy with biopsies that were unremarkable. Stool collection for 24 hours was ordered last time but was unable to perform because the diarrhea resolved with Imodium and Questran at that time. The patient now states that she's been taking medications as an outp atient basis with no help. However, bowel movements have improved. Current Visit: Yes Status: Acute Code(s): R19.7 - DIARRHEA, UNSPECIFIED SNOMED Code(s): 71907239 (2) Abdominal pain Current Visit: No Status: Acute Code(s): R10.9 - UNSPECIFIED ABDOMINAL PAIN SNOMED Code(s): 59863980 (3) Elevated liver enzymes Narrative/Plan: Patient with mild elevation of serum transaminases status post liver biopsy in July 2020 that showed chronic venous congestion of the liver Current Visit: No Status: Acute Code(s): R74.8 - ABNORMAL LEVELS OF OTHER SERUM ENZYMES SNOMED Code(s): 528073359 Plan: 1. Patient started on Bentyl 20 mg 4 times daily 2. Questran 1 packet twice daily 3. Lomotil as needed 4. Renal diet 5. Continue supportive treatment 6. Will discontinue Protonix and change to Pepcid as patient is refusing to take Protonix. We'll also add Maalox as needed. 7. No plan on any endoscopic evaluation as patient has had recent upper and lower endoscopy 8. Surgery is on consult 9. IV iron ordered by nephrology service today
[2020-10-18 17:06] LABS: Glucose,Whole Blood 188 mg/dL (75-99)
[2020-10-18] MEDS: HYDROcodone/APAP 5-325MG 1 EACH TAB PO PRN (17:34)
[2020-10-18] MEDS: ONDANSETRON 4 MG/2 ML VIAL IVP PRN (21:15)
[2020-10-18 21:23] LABS: Glucose,Whole Blood 108 mg/dL (75-99)
[2020-10-19] MEDS: HYDROcodone/APAP 5-325MG 1 EACH TAB PO PRN ×4 (01:03→22:43)
[2020-10-19] MEDS: DIPHENOX-ATROP 2.5-0.025 MG 1 EACH TAB PO PRN (01:03)
[2020-10-19] MEDS: BENZOCAINE/MENTHOL LOZENG 1 EACH LOZENGE MUCOUS MEM PRN (01:33)
[2020-10-19 07:30] LABS: Glucose,Whole Blood 163 mg/dL (75-99)
--- NOTE | 2020-10-19 08:36 | CT ---
EXAMINATION TYPE: CT brain wo con DATE OF EXAM: 10/19/2020 COMPARISON: 10/17/2020 HISTORY: Fall CT DLP: 1161.[address] of the brain was performed. The ventricles, basal cisterns and sulci overlying the cerebral convexities demonstrate mild enlargem ent. There is no evidence for intracranial hemorrhage or sulcal effacement. There is decreased attenuation about the periventricular white matter and deep white matter of both c erebral hemispheres, compatible with chronic small vessel ischemia. Differential diagnosis does inclu de demyelination. No mass effects are seen.No midline shift. Osseous calvarium is intact. Left-sided mastoiditis redemonstrated. If symptoms persist consider MRI. IMPRESSION: 1. Age related atrophic and chronic small vessel ischemic change without acute intracranial process s een at this time.
--- NOTE | 2020-10-19 08:41 | CT ---
EXAMINATION TYPE: CT lumbar spine wo con DATE OF EXAM: 10/19/2020 8:23 AM COMPARISON: HISTORY: Fall CT DLP: 1158.1 mGycm Automated exposure control for dose reduction was used. Unenhanced CT of the lumbar spine was performed. Bone and soft tissue window settings are submitted as well as coronal and sagittal reconstructions. L1-L2: Normal disc space height. No disc herniation protrusion or central stenosis. No facet joint arthropathy. No evidence for foraminal encroachment. L2-L3: Normal disc space height. No disc herniation protrusion or central stenosis. No facet joint arthropathy. No evidence for foraminal encroachment. L3-L4: Mild disc space narrowing noted. Posterior disc bulge effaces the ventral thecal sac. There is a mild hypertrophy of the ligamentum flavum and facet joint arthropathy resulting in mild central st enosis. Grade 1 anterolisthesis measuring 2 mm. L4-L5: Moderate degenerative disc space narrowing. Moderate posterior disc bulge effacing the ventral thecal sac resulting in xiln-af-hypmthng central stenosis. L5-S1: Mild degenerative disc space narrowing. Broad-based posterior disc bulge effaces the ventral t hecal sac and results in bilateral lateral recess stenosis. No evidence for central stenosis or galdino herniation. IMPRESSION: 1. Central stenosis identified at L3-4 and L4-5. Lateral recess stenosis bilaterally at L5-S1. 2. No evidence for fracture.
[2020-10-19] MEDS ORDERED: HEPARIN SODIUM,PORCINE 5,000 UNIT/ML 1 ML VIAL ONE (09:00)
[2020-10-19 09:14] LABS: Anisocytosis Slight; Basophils # (A) 0.1 k/uL (0-0.2); Basophils % (A) 1 %; Eosinophils # (A) 0.2 k/uL (0-0.7); Eosinophils % (A) 2 %; HCT 30.3 % (34.0-46.0); HGB 10.1 gm/dL (11.4-16.0); Lymphocytes # (A) 0.6 k/uL (1.0-4.8); Lymphocytes % (A) 5 %; MCH 29.5 pg (25.0-35.0); MCHC 33.3 g/dL (31.0-37.0); MCV 88.3 fL (80.0-100.0); Mean Platelet Volume 8.8; Monocytes # (A) 0.4 k/uL (0-1.0); Monocytes % (A) 4 %; Neutrophils # (A) 10.3 k/uL (1.3-7.7); Neutrophils % (A) 88 %; Platelet Count 268 k/uL (150-450); RBC 3.43 m/uL (3.80-5.40); RDW 17.2 % (11.5-15.5); WBC 11.7 k/uL (3.8-10.6)
[2020-10-19] MEDS: CALCIUM ACETATE 667 MG TAB PO SCH ×2 (09:59→17:42)
[2020-10-19] MEDS: REPAGLINIDE 1 MG TAB PO SCH ×2 (10:00→17:42)
[2020-10-19] MEDS: DICYCLOMINE 20 MG TAB PO SCH ×4 (10:04→20:50)
[2020-10-19] MEDS: PREGABALIN 75 MG CAP PO SCH ×2 (10:04→20:50)
[2020-10-19] MEDS: CLOPIDOGREL 75 MG TAB PO SCH (10:04)
[2020-10-19] MEDS: FAMOTIDINE 20 MG TAB PO SCH (10:04)
[2020-10-19] MEDS: APIXABAN 2.5 MG TABLET PO SCH ×2 (10:04→20:50)
[2020-10-19] MEDS: LORATADINE 10 MG TAB PO SCH (10:05)
[2020-10-19] MEDS: METOPROLOL SUCCINATE (ER) 50 MG TAB.ER.24H PO SCH (10:05)
[2020-10-19 11:53] LABS: Glucose,Whole Blood 112 mg/dL (75-99)
--- NOTE | 2020-10-19 12:12 | P.PN ---
Progress Note - Text Progress Note Date: 10/19/20 Patient resting in bed. She is currently having dialysis performed. She states her pain is usual. On exam vital signs are stable. Abdomen soft. There is some mild epigastric pain. Chronic abdominal pain. No surgical intervention is planned. Patient appears stable.
[2020-10-19] MEDS: CHOLESTYRAMINE (WITH SUGAR) 4 GM PACKET PO SCH ×2 (12:13→17:19)
[2020-10-19] MEDS: amLODIPine 5 MG TAB PO SCH ×2 (12:13→20:50)
[2020-10-19] MEDS: hydrALAZINE HCL 25 MG TAB PO SCH ×3 (12:13→20:49)
--- NOTE | 2020-10-19 12:22 | PN ---
PROGRESS NOTE This is a 50-year-old female who is admitted with abdominal pain. We gave her Flexeril for muscle relaxer yesterday. Today she apparently fell in the bathroom, hit her head. I ordered a CT scan of the head and her lumbar spine, as she had coccyx pain. Her white count is 10.7, hemoglobin is 10.1. Sugars in the mid 100- 200. Her temperature is 98, pulse 98, respiratory 16-18, blood pressure 160s/80s, 95% on room air. CT scan of lumbar spine shows central stenosis at L3-L4, L4-L5, L5-S1, lateral recess stenosis. CT of the brain shows age-related changes due to her falling in the bathroom. Will try to get her into a long term, although last time she was admitted she refused to go to the long term. We will possibly order for anesthesia to give her shot in her lumbar spine if she consents. Cardiovascular S1-S2. Lungs clear. GI soft. She has some tenderness to palpation in the right flank. Possibly muscle spasms. I gave her a muscle relaxer for this yesterday. Prognosis is extremely guarded. She will probably need to go to a long term due to her falls and generalized weakness. We will discuss it with her today. MMODL / IJN: [id number] /
--- NOTE | 2020-10-19 14:19 | P.PN ---
Subjective Progress Note Date: 10/19/20 The patient is seen at bedside and she stated she continues to feel nauseous and have abdominal pain. Otherwise denies weakness, numbness, visual disturbance. Objective - Vital Signs Vital signs: Vital Signs Temp 97.8 F 10/19/20 12:21 Pulse 81 10/19/20 12:21 Resp 16 10/19/20 12:21 BP 134/67 10/19/20 12:21 Pulse Ox 98 10/19/20 12:21 Intake & Output 10/18/20 10/19/20 10/19/20 18:59 06:59 18:59 Output Total 1999 Balance -1999 Output: Hemodialysis 1999 Other: Voiding Method Toilet # Voids 2 1 - Exam GENERAL: The patient is lying in bed and is not in acute distress. NEUROLOGICAL: Higher mental function: The patient is awake, alert, oriented to self, place and time. Patient is following simple commands. No aphasia and no neglect. Cranial nerves: The pupils are round, equal and reactive to light and accommodation. Visual tavera are full to confrontation throughout. Extraocular movement is intact no nystagmus is noted. Facial sensation is normal to touch throughout. The facial strength is normal throughout. Hearing is normal bilaterally to hand rub. Tongue is midline and moved [id number] without any difficulty. No dysarthria is noted. Shoulder shrug is normal bilaterally. Motor: Gait is deferred. The strength is 5/5 throughout. Normal tone and bulk. Cerebellum: Normal finger to nose bilaterally. Sensation: Sensation is normal to touch throughout. Reflexes (right/left): 2+ throughout. Plantars are downgoing bilaterally. - Labs CBC & Chem 7: 10/19/20 08:00 10/19/20 08:00 Labs: Abnormal Lab Results - Last 24 Hours (Table) 10/18/20 10/18/20 10/19/20 Range/Units 17:04 21:22 07:28 WBC (3.8-10.6) k/uL RBC (3.80-5.40) m/uL Hgb (11.4-16.0) gm/dL Hct (34.0-46.0) % RDW (11.5-15.5) % Neutrophils # (1.3-7.7) k/uL Lymphocytes # (1.0-4.8) k/uL POC Glucose (mg/dL) 188 H 108 H 163 H (75-99) mg/dL 10/19/20 10/19/20 Range/Units 08:00 11:52 WBC 11.7 H (3.8-10.6) k/uL RBC 3.43 L (3.80-5.40) m/uL Hgb 10.1 L (11.4-16.0) gm/dL Hct 30.3 L (34.0-46.0) % RDW 17.2 H (11.5-15.5) % Neutrophils # 10.3 H (1.3-7.7) k/uL Lymphocytes # 0.6 L (1.0-4.8) k/uL POC Glucose (mg/dL) 112 H (75-99) mg/dL Assessment and Plan Assessment: Toxic metabolic encephalopathy possibly due to multifactorial (medication use and mostly it's due to opiate medication as well as her end-stage renal disease on dialysis can have an effect on her condition)--improved Abdominal pain and nausea Diabetes mellitus Coronary artery disease status post stent History of CABG End-stage renal disease on dialysis History of DVT on Eliquis Plan: CT of the head: No acute intracranial hemorrhage or midline shift. There is mild diffuse age-related cerebral atrophy and moderate chronic small vessel ischemic changes redemonstrated. Left-sided mastoiditis suspected, correlate clinically. Patient refused to get an EEG on 10/17/20. From the history and physical examin ation patient does not have any seizure and I'll not start the patient on any antiepileptic drug. vitamin B12 as well as folate and repeat TSH: patient refused labs. Continue physical therapy and occupation therapy. Psychiatric team is consulted and they felt the patient had adjustment disorder with depressive features. They recommend then the medication changes but patient's refused to be on any psychotropic medication. Please avoid the as much as possible providing narcotic which can affect the patient's mental status. There is no further work-up from neurology perspective. We will sign off. Please reconsult if needed. Landon Orozco M.D. Neuro-hospitalist Time with Patient: Less than 30
[2020-10-19 14:29] LABS: African American GFR (CKD) 13.2 (60.0-200.0); Albumin 3.2 g/dL (3.80-4.90); Albumin/Globulin Ratio 1.23 (1.60-3.17); Anion Gap 8.4 mmol/L (4.00-12.00); BUN/Creat Ratio 8.33 Ratio (12.00-20.00); Calcium 8.4 mg/dL (8.7-10.3); Carbon Dioxide 25.6 mmol/L (21.6-31.8); Globulin 2.6 g/dL (1.6-3.3); Non-African American GFR(CKD) 11.4 (60.0-200.0); Potassium 4.5 mmol/L (3.5-5.5); Total Bilirubin 1.3 mg/dL (0.3-1.2); Total Protein 5.8 g/dL (6.2-8.2)
[2020-10-19 14:47] VITALS: BMI 29.5
--- NOTE | 2020-10-19 16:06 | P.PN ---
Subjective Progress Note Date: 10/19/20 Follow-up for ESRD. Objective - Vital Signs Vital signs: Vital Signs Temp 97.8 F 10/19/20 12:21 Pulse 77 10/19/20 15:56 Resp 16 10/19/20 12:21 BP 147/72 10/19/20 15:56 Pulse Ox 98 10/19/20 12:21 Intake & Output 10/18/20 10/19/20 10/19/20 18:59 06:59 18:59 Output Total 1999 Balance -1999 Weight 88 kg Output: Hemodialysis 1999 Other: Voiding Method Toilet # Voids 2 1 1 # Bowel Movements 2 - Exam No acute distress S1-S2 heard lungs clear No edema - Labs CBC & Chem 7: 10/19/20 08:00 10/19/20 08:00 Labs: Abnormal Lab Results - Last 24 Hours (Table) 10/18/20 10/18/20 10/19/20 Range/Units 17:04 21:22 07:28 WBC (3.8-10.6) k/uL RBC (3.80-5.40) m/uL Hgb (11.4-16.0) gm/dL Hct (34.0-46.0) % RDW (11.5-15.5) % Neutrophils # (1.3-7.7) k/uL Lymphocytes # (1.0-4.8) k/uL BUN (9.0-27.0) mg/dL Creatinine (0.6-1.5) mg/dL Est GFR (CKD-EPI)AfAm (60.0-200.0) Est GFR (CKD-EPI)NonAf (60.0-200.0) BUN/Creatinine Ratio (12.00-20.00) Ratio Glucose (70-110) mg/dL POC Glucose (mg/dL) 188 H 108 H 163 H (75-99) mg/dL Calcium (8.7-10.3) mg/dL Total Bilirubin (0.3-1.2) mg/dL AST (13-35) U/L ALT (8-44) U/L Alkaline Phosphatase (41-126) U/L Total Protein (6.2-8.2) g/dL Albumin (3.80-4.90) g/dL Albumin/Globulin Ratio (1.60-3.17) g/dL 10/19/20 10/19/20 10/19/20 Range/Units 08:00 08:00 11:52 WBC 11.7 H (3.8-10.6) k/uL RBC 3.43 L (3.80-5.40) m/uL Hgb 10.1 L (11.4-16.0) gm/dL Hct 30.3 L (34.0-46.0) % RDW 17.2 H (11.5-15.5) % Neutrophils # 10.3 H (1.3-7.7) k/uL Lymphocytes # 0.6 L (1.0-4.8) k/uL BUN 35.0 H (9.0-27.0) mg/dL Creatinine 4.2 H (0.6-1.5) mg/dL Est GFR (CKD-EPI)AfAm 13.2 L (60.0-200.0) Est GFR (CKD-EPI)NonAf 11.4 L (60.0-200.0) BUN/Creatinine Ratio 8.33 L (12.00-20.00) Ratio Glucose 190 H (70-110) mg/dL POC Glucose (mg/dL) 112 H (75-99) mg/dL Calcium 8.4 L (8.7-10.3) mg/dL Total Bilirubin 1.3 H (0.3-1.2) mg/dL AST 172 H (13-35) U/L ALT 149 H (8-44) U/L Alkaline Phosphatase 576 H (41-126) U/L Total Protein 5.8 L (6.2-8.2) g/dL Albumin 3.20 L (3.80-4.90) g/dL Albumin/Globulin Ratio 1.23 L (1.60-3.17) g/dL Assessment and Plan Assessment: #1 ESRD MWF #2 hypertension with ESRD #3 anemia with ESRD #4 metabolic bone disease with ESRD #5 chronic diarrhea Plan: #1 HD on Thursday, next treatment on Thursday #2 ESRD medications
[2020-10-19 17:02] LABS: Glucose,Whole Blood 105 mg/dL (75-99)
[2020-10-19] MEDS: CYCLOBENZAPRINE 5 MG TAB PO PRN (19:57)
[2020-10-19 20:22] LABS: Glucose,Whole Blood 173 mg/dL (75-99)
[2020-10-19] MEDS: ONDANSETRON 4 MG/2 ML VIAL IVP PRN (20:49)
[2020-10-19] MEDS: PROCHLORPERAZINE 10 MG TAB PO PRN (22:35)
[2020-10-20 07:34] LABS: Glucose,Whole Blood 151 mg/dL (75-99)
[2020-10-20] MEDS: CALCIUM ACETATE 667 MG TAB PO SCH ×2 (07:50→17:46)
[2020-10-20] MEDS: REPAGLINIDE 1 MG TAB PO SCH ×2 (07:50→17:46)
[2020-10-20] MEDS: amLODIPine 5 MG TAB PO SCH ×2 (07:51→20:31)
[2020-10-20] MEDS: APIXABAN 2.5 MG TABLET PO SCH ×2 (07:51→20:31)
[2020-10-20] MEDS: CLOPIDOGREL 75 MG TAB PO SCH (07:51)
[2020-10-20] MEDS: DICYCLOMINE 20 MG TAB PO SCH ×4 (07:51→20:31)
[2020-10-20] MEDS: hydrALAZINE HCL 25 MG TAB PO SCH ×4 (07:52→20:31)
[2020-10-20] MEDS: FAMOTIDINE 20 MG TAB PO SCH (07:52)
[2020-10-20] MEDS: HYDROcodone/APAP 5-325MG 1 EACH TAB PO PRN ×2 (07:53→17:26)
[2020-10-20] MEDS: LORATADINE 10 MG TAB PO SCH (07:53)
[2020-10-20] MEDS: METOPROLOL SUCCINATE (ER) 50 MG TAB.ER.24H PO SCH (07:53)
[2020-10-20] MEDS: PREGABALIN 75 MG CAP PO SCH ×2 (07:53→20:31)
[2020-10-20] MEDS: CHOLESTYRAMINE (WITH SUGAR) 4 GM PACKET PO SCH ×2 (08:15→17:46)
[2020-10-20] MEDS: BENZOCAINE/MENTHOL LOZENG 1 EACH LOZENGE MUCOUS MEM PRN (08:16)
--- NOTE | 2020-10-20 11:02 | PN ---
PROGRESS NOTE She had a fall yesterday. CT scan of her lumbar spine shows spinal stenosis. [facility] for possible epidural shot in her lumbar spine due to leg weakness. CT scan of her neck is negative and her lumbar spine as mentioned above. PHYSICAL EXAMINATION: Temperature 97.8, pulse 77, respiratory 16-18, blood pressure 147/72, O2 98. Labs reviewed. BUN 35, creatinine 4.2. CARDIAC: S1, S2. Abdomen is tender to palpation in the right flank, right upper quadrant, most likely musculoskeletal in nature, radiating from her back. GI workup has all been negative. ASSESSMENT: 1. End-stage renal disease. 2. Hypertension. 3. Chronic anemia. 4. Metabolic bone disease. 5. Chronic diarrhea. Possibly try to get the patient into rehab center. She has refused at this time. She continues to feel nauseous, abdominal pain, GI and surgery signed off. She refused to get the EEG 10/17/2020. Neurology saw her and says they doubt it is a seizure and no antiepileptic medications will be given. She refused labs. Continue physical therapy. The patient refused to be on any new psych medications. She will possibly have to be discharged home if no epidural shot will be able to be given. MMODL / IJN: [id number] /
[2020-10-20 12:09] LABS: Glucose,Whole Blood 128 mg/dL (75-99)
--- NOTE | 2020-10-20 12:26 | P.PN ---
Progress Note - Text Progress Note Date: 10/20/20 The patient remains stable. She still has complaints of epigastric abdominal pain. On exam vital signs are stable. Abdomen soft. There is no rebound or guarding. Patient will receive supportive medical therapy.
--- NOTE | 2020-10-20 16:10 | P.PN ---
Subjective Progress Note Date: 10/20/20 Follow-up for ESRD. Objective - Vital Signs Vital signs: Vital Signs Temp 98.1 F 10/20/20 13:00 Pulse 78 10/20/20 13:00 Resp 16 10/20/20 13:00 BP 138/80 10/20/20 13:00 Pulse Ox 100 10/20/20 13:00 Intake & Output 10/19/20 10/20/20 10/20/20 18:59 06:59 18:59 Intake Total 100 1182 Output Total 1999 Balance -1999 100 1182 Weight 88 kg 86 kg Intake: Oral 100 1182 Output: Hemodialysis 1999 Other: # Voids 1 2 1 # Bowel Movements 2 0 - Exam Exam limited secondary to Covid 19 pandemic and to limit ppe - Labs CBC & Chem 7: 10/19/20 08:00 10/19/20 08:00 Labs: Abnormal Lab Results - Last 24 Hours (Table) 10/19/20 10/19/20 10/20/20 Range/Units 17:00 20:15 07:32 POC Glucose (mg/dL) 105 H 173 H 151 H (75-99) mg/dL 10/20/20 Range/Units 12:08 POC Glucose (mg/dL) 128 H (75-99) mg/dL Assessment and Plan Assessment: #1 ESRD MWF #2 hypertension with ESRD #3 anemia with ESRD #4 metabolic bone disease with ESRD #5 chronic diarrhea Plan: #1 HD was on Thursday, next treatment on Thursday #2 ESRD medications
[2020-10-20 17:15] LABS: Glucose,Whole Blood 227 mg/dL (75-99)
[2020-10-20] MEDS: MAG HYDROX/AL HYDROX/SIMETH 30 ML CUP PO PRN (17:46)
[2020-10-20 20:57] LABS: Glucose,Whole Blood 213 mg/dL (75-99)
[2020-10-20] MEDS: INSULIN ASPART (NovoLOG) 100 UNIT/ML VIAL SQ SCH (21:12)
[2020-10-20] MEDS: DIPHENOX-ATROP 2.5-0.025 MG 1 EACH TAB PO PRN (21:21)
[2020-10-21 07:25] LABS: Glucose,Whole Blood 128 mg/dL (75-99)
[2020-10-21] MEDS: INSULIN ASPART (NovoLOG) 100 UNIT/ML VIAL SQ SCH ×4 (08:27→21:35)
[2020-10-21] MEDS: hydrALAZINE HCL 25 MG TAB PO SCH ×3 (08:50→21:35)
[2020-10-21] MEDS: CALCIUM ACETATE 667 MG TAB PO SCH ×2 (08:51→18:24)
[2020-10-21] MEDS: amLODIPine 5 MG TAB PO SCH ×2 (08:51→21:35)
[2020-10-21] MEDS: LORATADINE 10 MG TAB PO SCH (08:51)
[2020-10-21] MEDS: CLOPIDOGREL 75 MG TAB PO SCH (08:51)
[2020-10-21] MEDS: PREGABALIN 75 MG CAP PO SCH ×2 (08:51→21:35)
[2020-10-21] MEDS: METOPROLOL SUCCINATE (ER) 50 MG TAB.ER.24H PO SCH (08:51)
[2020-10-21] MEDS: APIXABAN 2.5 MG TABLET PO SCH ×2 (08:52→21:36)
[2020-10-21] MEDS: DICYCLOMINE 20 MG TAB PO SCH ×4 (08:52→21:36)
[2020-10-21] MEDS: REPAGLINIDE 1 MG TAB PO SCH ×2 (08:52→18:24)
[2020-10-21] MEDS: CHOLESTYRAMINE (WITH SUGAR) 4 GM PACKET PO SCH ×2 (08:53→16:54)
[2020-10-21] MEDS: FAMOTIDINE 20 MG TAB PO SCH (08:53)
[2020-10-21 12:09] LABS: Glucose,Whole Blood 175 mg/dL (75-99)
[2020-10-21] MEDS: HYDROcodone/APAP 5-325MG 1 EACH TAB PO PRN ×2 (12:51→19:42)
[2020-10-21] MEDS: BENZOCAINE/MENTHOL LOZENG 1 EACH LOZENGE MUCOUS MEM PRN (12:52)
--- NOTE | 2020-10-21 14:01 | P.PN ---
Progress Note - Text Progress Note Date: 10/21/20 Patient is stable. She still has complaints of vague abdominal pain. On exam vital signs are stable. Abdomen soft. There is minimal tenderness. There is no rebound or guarding. Chronic abdominal pain. Patient will continue receive medical management.
--- NOTE | 2020-10-21 16:11 | P.PN ---
Subjective Progress Note Date: 10/21/20 Follow-up for ESRD. Objective - Vital Signs Vital signs: Vital Signs Temp 99.2 F 10/21/20 12:59 Pulse 85 10/21/20 12:59 Resp 20 10/21/20 12:59 BP 115/68 10/21/20 12:59 Pulse Ox 92 L 10/21/20 12:59 Intake & Output 10/20/20 10/21/20 10/21/20 18:59 06:59 18:59 Intake Total 1182 200 Balance 1182 200 Weight 88 kg Intake: Oral 1182 200 Other: # Voids 1 0 # Bowel Movements 0 - Exam Exam limited secondary to Covid 19 pandemic and to limit ppe - Labs CBC & Chem 7: 10/19/20 08:00 10/19/20 08:00 Labs: Abnormal Lab Results - Last 24 Hours (Table) 10/20/20 10/20/20 10/21/20 Range/Units 17:14 20:55 07:08 POC Glucose (mg/dL) 227 H 213 H 128 H (75-99) mg/dL 10/21/20 Range/Units 12:02 POC Glucose (mg/dL) 175 H (75-99) mg/dL Assessment and Plan Assessment: #1 ESRD MWF #2 hypertension with ESRD #3 anemia with ESRD #4 metabolic bone disease with ESRD #5 chronic diarrhea Plan: #1 HD was on Thursday, next treatment on Thursday #2 ESRD medications
[2020-10-21 17:12] LABS: Glucose,Whole Blood 171 mg/dL (75-99)
[2020-10-21 22:04] LABS: Glucose,Whole Blood 215 mg/dL (75-99)
--- NOTE | 2020-10-22 05:29 | PN ---
PROGRESS NOTE A 50-year-old female who continues to be weak with her arm. 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 I discussed with her she has to go to a half-way. She has been cleared from all the surgeries and specialists for abdominal pain. She has lumbar disc disease. She will need physical therapy and possibly an outpatient epidural shot. Home medicines have been reviewed. She gets dialysis 3 times a week. She needs to increase her diet and get moving. She really does not want to go to a half-way, but she cannot stay in the hospital any longer I told her as she has been medically cleared. We will wait for discharge to a half-way tomorrow or home whatever she prefers. Please see further orders. MMODL / IJN: [id number] /
--- NOTE | 2020-10-22 06:57 | DS ---
DISCHARGE SUMMARY CONDITION: Stable, generalized weakness. She will need to go to a rehab center. She was seen by psychiatrist, neurologist, who cleared her. She refused antidepressants and neurologic workup. She has generalized weakness. She has been cleared from surgery, Dr. Winston as well as dialysis with kidney disease doctor. She will get 3 times a as an outpatient. Surgically cleared for abdominal pain. She has lumbar disc disease. She will need an epidural as an outpatient, but she needs physical therapy due to leg weakness. CONDITION: Stable. DIET: Regular. AMBULATE: As tolerated. HOME MEDICINES: 1. Bentyl 20 q.i.d. for irritable bowel syndrome. 2. Cholestyramine 4 mg b.i.d. for diarrhea. 3. Metoprolol XL 50 daily. 4. Repaglinide 0.5 b.i.d. 5. Марина-Twyla one daily. 6. Nitroglycerin sublingual p.r.n. 7. Zofran 4 mg q.8 p.r.n. 8. Eliquis 2.5 b.i.d. 9. Cetirizine 10 mg daily. 10.Plavix 75 mg daily. 11.Apresoline 100 t.i.d. 12.Benadryl 25 b.i.d. 13.Lyrica 75 b.i.d. 14.Pantoprazole 40 daily. 15.Accu-Chek protocol a.c. and at bedtime. 16.Aranesp 40 mcg every week. 17.Norvasc 5 mg b.i.d. 18.Imodium 2 mg q.i.d. p.r.n. 19.PhosLo 667 mg a.c. b.i.d. 20.Benadryl cream topically b.i.d. p.r.n. 21.[place] 05/325 q.12 hours. Follow up in the office in a week. Condition stable. Prognosis guarded. MMODL / IJN: [id number] /
[2020-10-22 07:17] LABS: Glucose,Whole Blood 131 mg/dL (75-99)
[2020-10-22] MEDS: CALCIUM ACETATE 667 MG TAB PO SCH ×2 (07:40→17:02)
[2020-10-22] MEDS: FAMOTIDINE 20 MG TAB PO SCH (07:40)
[2020-10-22] MEDS: LORATADINE 10 MG TAB PO SCH (07:40)
[2020-10-22] MEDS: CLOPIDOGREL 75 MG TAB PO SCH (07:40)
[2020-10-22] MEDS: METOPROLOL SUCCINATE (ER) 50 MG TAB.ER.24H PO SCH (07:40)
[2020-10-22] MEDS: INSULIN ASPART (NovoLOG) 100 UNIT/ML VIAL SQ SCH ×3 (07:41→16:37)
[2020-10-22] MEDS: PREGABALIN 75 MG CAP PO SCH (07:41)
[2020-10-22] MEDS: REPAGLINIDE 1 MG TAB PO SCH ×2 (07:41→17:02)
[2020-10-22] MEDS: APIXABAN 2.5 MG TABLET PO SCH (07:41)
[2020-10-22] MEDS: DICYCLOMINE 20 MG TAB PO SCH ×3 (07:41→17:02)
[2020-10-22] MEDS: amLODIPine 5 MG TAB PO SCH (07:41)
[2020-10-22] MEDS: hydrALAZINE HCL 25 MG TAB PO SCH ×2 (07:42→16:02)
[2020-10-22] MEDS ORDERED: HEPARIN SODIUM,PORCINE 5,000 UNIT/ML 1 ML VIAL ONE (08:06)
[2020-10-22] MEDS: CHOLESTYRAMINE (WITH SUGAR) 4 GM PACKET PO SCH ×2 (10:21→16:37)
--- NOTE | 2020-10-22 11:13 | P.PN ---
Subjective Patient is seen in follow-up for end-stage renal disease. She is maintained on hemodialysis on Thursday schedule. Diarrhea improved. Tolerating dialysis well. Vital signs are stable. General: The patient appeared well nourished and normally developed. HEENT: Head exam is unremarkable. Neck is without jugular venous distension. LUNGS: Lungs are clear to auscultation and percussion. Breath sounds decreased. HEART: Rate and Rhythm are regular. ABDOMEN: Soft, generalized tenderness to touch. EXTREMITITES: No edema. Objective - Vital Signs Vital signs: Vital Signs Temp 98.1 F 10/22/20 07:42 Pulse 82 10/22/20 07:42 Resp 18 10/22/20 07:42 BP 122/60 10/22/20 07:42 Pulse Ox 98 10/22/20 07:42 Intake & Output 10/21/20 10/22/20 10/22/20 18:59 06:59 18:59 Intake Total 200 Balance 200 Weight 90 kg Intake: Oral 200 Other: Voiding Method Toilet # Voids 1 1 # Bowel Movements 1 - Labs CBC & Chem 7: 10/19/20 08:00 10/19/20 08:00 Labs: Abnormal Lab Results - Last 24 Hours (Table) 10/21/20 10/21/20 10/21/20 Range/Units 12:02 17:10 21:30 POC Glucose (mg/dL) 175 H 171 H 215 H (75-99) mg/dL 10/22/20 Range/Units 07:16 POC Glucose (mg/dL) 131 H (75-99) mg/dL Assessment and Plan Plan: Assessment: 1. End-stage renal disease maintained on hemodialysis on Thursday schedule. 2. Hypertension with chronic kidney disease. Controlled. 3. Anemia of chronic kidney disease. Iron deficiency noted. She did receive IV iron this admission. 4. Chronic diarrhea. GI following. Improved. 5. Diabetes mellitus. 6. Chronic kidney disease mineral bone disease maintained on PhosLo. Plan: Currently seen while undergoing hemodialysis. Next treatment on Thursday. Anticipate discharge soon.
[2020-10-22 11:24] LABS: Glucose,Whole Blood 181 mg/dL (75-99)
--- NOTE | 2020-10-22 12:52 | P.PN ---
Subjective Progress Note Date: 10/22/20 CHIEF COMPLAINT: Abdominal pain with nausea, vomiting and diarrhea HISTORY OF PRESENT ILLNESS: Patient is being followed for her abdominal pain with vomiting and diarrhea. Patient still reporting abdominal pain which is chronic. No new pain. Denies any nausea or vomiting. She is feeling weak. She is being evaluated for ECF placement. Denies any nausea or vomiting. She is having bowel movements. PHYSICAL EXAM: VITAL SIGNS: Reviewed. GENERAL: Well-developed in no acute distress. HEENT: No sclera icterus. Extraocular movements grossly intact. Moist buccal mucosa. Head is atraumatic, normocephalic. ABDOMEN: Soft. Nondistended. Diffuse tenderness NEUROLOGIC: Confused ASSESSMENT: 1. Chronic abdominal pain. She's had recent EGD and colonoscopy in August that were unremarkable. 2. Patient is status post cholecystectomy in August 2020 3. Mild elevation of liver enzymes status post liver biopsy in July 2020 that showed chronic venous congestion of the liver 4. End-stage renal disease hemodialysis dependent PLAN: -Continue supportive care -No surgical intervention planned at this time Physician Relay Technician note has been reviewed by physician. Signing provider agrees with the documented findings, assessment, and plan of care. Objective - Vital Signs Vital signs: Vital Signs Temp 98.1 F 10/22/20 07:42 Pulse 82 10/22/20 07:42 Resp 18 10/22/20 07:42 BP 122/60 10/22/20 07:42 Pulse Ox 98 10/22/20 07:42 Intake & Output 10/21/20 10/22/20 10/22/20 18:59 06:59 18:59 Intake Total 200 Balance 200 Weight 90 kg Intake: Oral 200 Other: Voiding Method Toilet # Voids 1 1 # Bowel Movements 1 - Labs CBC & Chem 7: 10/19/20 08:00 10/19/20 08:00 Labs: Abnormal Lab Results - Last 24 Hours (Table) 10/21/20 10/21/20 10/22/20 Range/Units 17:10 21:30 07:16 POC Glucose (mg/dL) 171 H 215 H 131 H (75-99) mg/dL 10/22/20 Range/Units 11:23 POC Glucose (mg/dL) 181 H (75-99) mg/dL
[2020-10-22 16:04] VITALS: TEMP 98.2
[2020-10-22 16:05] VITALS: BP 124/55; PULSE 71; RESP 16
[2020-10-22 16:22] LABS: Glucose,Whole Blood 162 mg/dL (75-99)
--- NOTE | 2020-10-23 23:30 | CDI ---
Documentation Clarification Form Date: 10/24/2020 From: Scooby Jhaveri Phone: If you have a question about this query, please contact Francine Lee Data Services Developer at [phone] between 8am and 5pm. Admit Date: 10/15/2020 Discharge Date: 10/22/2020 Patient Name: Sharon Singh Visit Number: [id number] ATTENTION: The Clinical Documentation Specialists (CDI) and [facility] Coding Staff appreciate your assistance in clarifying documentation. Please respond to the clarification below the line at the bottom and electronically sign. The CDI & [facility] Coding staff will review the response and follow-up if needed. Please note: Queries are made part of the Legal Health Record. If you have any questions, please contact the author of this message via ITS. Dear Pavel Pettit MD., The patient presented with the Chronic abdominal pain. History/Risk Factors:ESRD, abdominal pain, hyperlipidemia. Clinical Indicators: Admitted with chronic diarrhea.GI following.Improved. A 50-year-old, female came to hospital with abdominal pain, nausea, vomiting, diarrhea for the past several months duration.It resolved and now it has re-occurred since she has been home for the last 2 weeks. 10/18 Dr. 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 10/16 in your Progress note stated "Irritable bowel syndrome". 10/22 progress note "Chronic abdominal pain.She's had recent EGD and colonoscopy in August that were unremarkable". In your professional opinion, can you please clarify Chronic abdominal pain related to__? Irritable bowel syndrome Alcoholic cirrhosis Other, please specify Unable to determine MTDD
--- NOTE | 2020-10-31 01:17 | PN ---
PROGRESS NOTE ADDENDUM: 1. Irritable bowel syndrome. 2. Cirrhosis. 3. Autoimmune. MMODL / IJN: [id number] /
--- NOTE | 2020-10-31 16:26 | PN ---
PROGRESS NOTE Chronic abdominal pain due to multifactorial including irritable bowel syndrome, autoimmune cirrhosis, gastroparesis, end-stage renal disease. MMODL / IJN: [id number] /
== END 2020-10-22 18:25 | DRG 432 ==
LOC: EC 18:18 → 1SOBS 20:02 → 5NMEDONC 10-14 18:11 → OBSVTOIN 10-15 09:01
PROVIDERS: ADMIT Family Medicine; ATTEND Family Medicine
PROC: 5A1D70Z Performance of Urinary Filtration, Intermittent, Less than 6 Hours Per Day (ICD-10-PCS; principal; 2020-10-15)
DX: K74.60 Unspecified cirrhosis of liver (principal); N18.6 End stage renal disease; G92 Toxic encephalopathy; I13.2 Hypertensive heart and chronic kidney disease with heart failure and with stage 5 chronic kidney disease, or end stage renal disease; E11.43 Type 2 diabetes mellitus with diabetic autonomic (poly)neuropathy; D63.1 Anemia in chronic kidney disease; E11.22 Type 2 diabetes mellitus with diabetic chronic kidney disease; I50.9 Heart failure, unspecified; J44.9 Chronic obstructive pulmonary disease, unspecified; F31.9 Bipolar disorder, unspecified; Z99.2 Dependence on renal dialysis; R15.9 Full incontinence of feces; Z20.828 Contact with and (suspected) exposure to other viral communicable diseases; I25.10 Atherosclerotic heart disease of native coronary artery without angina pectoris; T40.2X5A Adverse effect of other opioids, initial encounter; E83.89 Other disorders of mineral metabolism; G89.29 Other chronic pain; K21.9 Gastro-esophageal reflux disease without esophagitis; F43.21 Adjustment disorder with depressed mood; M89.8X9 Other specified disorders of bone, unspecified site; E78.5 Hyperlipidemia, unspecified; F41.9 Anxiety disorder, unspecified; K58.9 Irritable bowel syndrome, unspecified; M51.9 Unspecified thoracic, thoracolumbar and lumbosacral intervertebral disc disorder; M48.061 Spinal stenosis, lumbar region without neurogenic claudication; Z53.20 Procedure and treatment not carried out because of patient's decision for unspecified reasons; F17.200 Nicotine dependence, unspecified, uncomplicated; I25.2 Old myocardial infarction; Z95.1 Presence of aortocoronary bypass graft; Z95.5 Presence of coronary angioplasty implant and graft; Z90.49 Acquired absence of other specified parts of digestive tract; Z88.2 Allergy status to sulfonamides; Z88.8 Allergy status to other drugs, medicaments and biological substances; Z88.1 Allergy status to other antibiotic agents; Z91.040 Latex allergy status; Z79.01 Long term (current) use of anticoagulants; Z79.02 Long term (current) use of antithrombotics/antiplatelets; Z79.899 Other long term (current) drug therapy; Z86.718 Personal history of other venous thrombosis and embolism; Z86.73 Personal history of transient ischemic attack (TIA), and cerebral infarction without residual deficits; Z87.01 Personal history of pneumonia (recurrent); Z80.9 Family history of malignant neoplasm, unspecified; Z82.49 Family history of ischemic heart disease and other diseases of the circulatory system; Z82.5 Family history of asthma and other chronic lower respiratory diseases; Z98.51 Tubal ligation status; Z98.890 Other specified postprocedural states
CPT/HCPCS: 36415; 70450; 72131; 74018; 80053; 82150; 82728; 83036; 83540; 83550; 83605; 83690; 84100; 85025; 85610; 85730; 86706; 87324; 87340; 87635; 90935; 93005; 96374; 99285

== ENCOUNTER 2020-11-07 23:54 | Inpatient (IN) | payer MEDICARE, OTHER ==
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
[2020-11-08 01:05] LABS: Anisocytosis Slight; Basophils % (A) 0 %; Eosinophils # (A) 0.3 k/uL (0-0.7); Eosinophils % (A) 4 %; HCT 25.4 % (34.0-46.0); Lymphocytes # (A) 0.8 k/uL (1.0-4.8); Lymphocytes % (A) 9 %; MCH 28.6 pg (25.0-35.0); MCHC 33.3 g/dL (31.0-37.0); MCV 85.9 fL (80.0-100.0); Monocytes # (A) 0.3 k/uL (0-1.0); Monocytes % (A) 4 %; Neutrophils # (A) 7.6 k/uL (1.3-7.7); Neutrophils % (A) 83 %; Platelet Count 373 k/uL (150-450); RBC 2.96 m/uL (3.80-5.40); RDW 16.9 % (11.5-15.5); WBC 9.2 k/uL (3.8-10.6)
[2020-11-08 01:07] LABS: HGB 8.5 gm/dL (11.4-16.0)
[2020-11-08 01:13] LABS: INR 1.1 (<1.2); Partial Thromboplastin Time 30.7 sec (22.0-30.0); Prothrombin Time 11.3 sec (9.0-12.0)
--- NOTE | 2020-11-08 01:15 | XR ---
EXAM: XR Chest, 2 Views CLINICAL HISTORY: ITS.REASON XR Reason: Chest Pain TECHNIQUE: Frontal and lateral views of the chest. COMPARISON: CXR 10/12/20 FINDINGS: Lungs: Increased interstitial prominence bilaterally. Minimal right basilar opacity. Pleural space: No pleural effusion or pneumothorax. Heart: Previous midline sternotomy. Cardiomegaly and pulmonary vascular congestion. Mediastinum: Unremarkable. Bones/joints: No acute osseous findings. Tubes, lines and devices: Stable left-sided supraclavicular tunneled hemodialysis catheter with tip in the right atrium. Stable right chest wall port catheter with tip in the SVC. IMPRESSION: 1. Cardiomegaly and pulmonary vascular congestion. 2. Diffuse interstitial prominence, most likely interstitial edema but pneumonia not excluded. 3. Minor right basilar opacities, most likely atelectasis.
[2020-11-08] MEDS ORDERED: MORPHINE SULFATE 4 MG/ML SYRINGE IVP PRN (01:16)
[2020-11-08] MEDS ORDERED: MORPHINE SULFATE 4 MG/ML SYRINGE IVP STA (01:16)
[2020-11-08 01:18] LABS: Albumin 2.9 g/dL (3.5-5.0); Calcium 8.2 mg/dL (8.4-10.2); Magnesium 2.1 mg/dL (1.6-2.3); Potassium 3.7 mmol/L (3.5-5.1); Total Bilirubin 0.9 mg/dL (0.2-1.3); Total Protein 6.3 g/dL (6.3-8.2)
[2020-11-08] MEDS ORDERED: HYDROmorphone 0.5 MG/0.5 ML SYRINGE IM PRN (03:00)
[2020-11-08] MEDS: HYDROmorphone 0.5 MG/0.5 ML SYRINGE IVP PRN ×2 (03:12→21:29)
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
[2020-11-08] MEDS ORDERED: DARBEPOETIN ALFA 40 MCG/0.4 ML SYRINGE SQ SCH ×2 (11:00→16:00)
[2020-11-08] MEDS ORDERED: APIXABAN 2.5 MG TABLET PO SCH (12:00)
[2020-11-08] MEDS ORDERED: ONDANSETRON 4 MG TAB PO PRN (12:24)
[2020-11-08] MEDS ORDERED: diphenhydrAMINE 2% CREAM 28.4 GM TUBE TOPICAL PRN (12:24)
[2020-11-08] MEDS ORDERED: NITROGLYCERIN SL TABS 0.4 MG TAB SUBLINGUAL PRN (12:24)
[2020-11-08] MEDS ORDERED: METOCLOPRAMIDE 5 MG TAB PO PRN (12:24)
[2020-11-08] MEDS ORDERED: NON FORMULARY DRUG (Dulaglutide [Trulicity] 1.5 MG/0.5 ML Pen.Injctr) SQ SCH (12:30)
[2020-11-08] MEDS ORDERED: LOPERAMIDE 2 MG CAP PO SCH (13:00)
[2020-11-08] MEDS ORDERED: DICYCLOMINE 20 MG TAB PO SCH (13:00)
--- NOTE | 2020-11-08 13:12 | HP ---
HISTORY AND PHYSICAL A 50-year-old female, came into the ER due to missing dialysis fluid overload, renal failure, and atypical chest pain, elevated troponin and Cardiology has been consulted. She has missed her dialysis, which may be contributing to this. She has a history of end-stage renal disease, cirrhosis, severity is moderate in his chest quality, aching, constant, social with some nausea. HOME MEDICINES: Metoprolol XR 50 daily, [place] Twyla 1 tablet daily, repetitive 0.5 b.i.d., Zofran 4 mg q.8 hours, Eliquis 2.5 b.i.d. Zyrtec 10 mg daily, Plavix 75 mg daily, Apresoline 100 mg t.i.d., NovoLog a.c. at bedtime, 667 a.c. b.i.d. [place] 04/16 q.12, Benadryl cream b.i.d. ALLERGIES: LIPITOR, KEFLEX, LATEX, ZOCOR. 14 POINT REVIEW OF SYSTEMS: As mentioned above, otherwise negative. EKG sinus rhythm. PAST MEDICAL HISTORY: As mentioned above, end-stage renal disease, CVA, COPD, asthma, blood disorder, diabetes mellitus, DVT, GERD, GI bleed, hypertension, dyslipidemia, myocardial infarction, pneumonia, renal disease, vascular disorder. SURGERY: Cholecystectomy, CABG, heart catheterization with stent, tubal ligation, anxiety, bipolar depression. FAMILY HISTORY: Mother with breast cancer. Father had DVT, myocardial infarction. Daughter with DVT, pulmonary embolism. Generally shows weak, generalized limitations. NEUROLOGIC: Alert, no distress. HEAD: Normocephalic, atraumatic. Pupils equal, round. Lungs are clear. CARDIOVASCULAR: S1, S2. GI: Soft, distended, increased bowel sounds. EXTREMITIES: No cyanosis, clubbing, edema. BACK: Normal inspection. NEUROLOGIC: Cranial nerves intact. PSYCH: Flat mood and affect. She has refused psychiatric medicines on last admission. SKIN: Warm, dry, intact. Pulse is low 100, 86, blood pressure is 160s/90s, respiratory 18-20, O2 is 95% to 99%. ASSESSMENT: End-stage renal disease, hypertension acceleration, atypical chest pain, elevated troponin. Cardiology and renal doctors consulted. Multiple medical problems. Please see further orders. She will be admitted for dialysis and cardiac consult. MMODL / IJN: [id number] /
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
[2020-11-08 15:15] LABS: % Iron Saturation 15.85 (12.00-45.00)
[2020-11-08 15:23] LABS: Ferritin 220.7 ng/mL (10.0-291.0)
[2020-11-08] MEDS: LOPERAMIDE 2 MG CAP PO SCH ×3 (15:51→23:50)
[2020-11-08] MEDS: DICYCLOMINE 20 MG TAB PO SCH ×3 (15:51→23:50)
[2020-11-08] MEDS: HYDROcodone/APAP 7.5-325MG 1 EACH TAB PO SCH ×2 (15:51→19:57)
[2020-11-08] MEDS: APIXABAN 2.5 MG TABLET PO SCH ×2 (15:51→23:50)
[2020-11-08] MEDS: hydrALAZINE HCL 50 MG TAB PO SCH ×2 (15:51→21:29)
[2020-11-08] MEDS: CHOLESTYRAMINE (WITH SUGAR) 4 GM PACKET PO SCH (18:50)
[2020-11-08] MEDS: CALCIUM ACETATE 667 MG TAB PO SCH (18:50)
[2020-11-08] MEDS: LOSARTAN 50 MG TAB PO SCH (19:57)
[2020-11-08] MEDS: PREGABALIN 75 MG CAP PO SCH (19:59)
[2020-11-08] MEDS: amLODIPine 5 MG TAB PO SCH (19:59)
[2020-11-09] MEDS: HYDROmorphone 0.5 MG/0.5 ML SYRINGE IVP PRN ×5 (02:30→21:42)
[2020-11-09] MEDS: CALCIUM ACETATE 667 MG TAB PO SCH ×2 (06:28→17:26)
[2020-11-09] MEDS: INSULIN DETEMIR (LEVEMIR) 100 UNIT/ML SYR SQ SCH (06:29)
[2020-11-09] MEDS ORDERED: PANTOPRAZOLE 40 MG TABLET PO SCH (07:30)
[2020-11-09] MEDS ORDERED: INSULIN DETEMIR (LEVEMIR) 100 UNIT/ML SYR SQ SCH (09:00)
[2020-11-09] MEDS: PREGABALIN 75 MG CAP PO SCH ×2 (09:03→21:41)
[2020-11-09] MEDS: APIXABAN 2.5 MG TABLET PO SCH ×2 (09:03→21:40)
[2020-11-09] MEDS: LOPERAMIDE 2 MG CAP PO SCH ×4 (09:03→21:41)
[2020-11-09] MEDS: DICYCLOMINE 20 MG TAB PO SCH ×4 (09:03→21:42)
[2020-11-09] MEDS: HYDROcodone/APAP 7.5-325MG 1 EACH TAB PO SCH ×2 (09:03→21:40)
--- NOTE | 2020-11-09 10:40 | P.PN ---
Subjective Patient is seen in follow-up for dise end-stage renalase. She is maintained on hemodialysis on Thursday schedule. Tolerated 2 L ultrafiltration yesterday. Scheduled for another treatment today. No chest pain or shortness of breath. Oral intake fair. Vital signs are stable. General: The patient appeared well nourished and normally developed. HEENT: Head exam is unremarkable. Neck is without jugular venous distension. LUNGS: Breath sounds decreased. HEART: Rate and Rhythm are regular. ABDOMEN: Soft, mild tenderness. EXTREMITITES: 1+ edema. Objective - Vital Signs Vital signs: Vital Signs Temp 98.1 F 11/09/20 08:00 Pulse 95 11/09/20 08:00 Resp 20 11/09/20 08:00 BP 135/67 11/09/20 08:00 Pulse Ox 98 11/09/20 08:00 Intake & Output 11/08/20 11/09/20 11/09/20 18:59 06:59 18:59 Intake Total 2000 250 240 Output Total 100 Balance 2000 150 240 Weight 77.111 kg 76.5 kg Intake: Oral 250 240 Hemodialysis 2000 Output: Urine 100 Other: Voiding Method Bedpan Bedpan - Labs CBC & Chem 7: 11/08/20 00:55 11/08/20 00:55 Labs: Abnormal Lab Results - Last 24 Hours (Table) 11/08/20 11/08/20 Range/Units 00:55 12:10 Iron 39 L (50-170) ug/dL Troponin I 0.141 H* (0.000-0.034) ng/mL Assessment and Plan Plan: Assessment: 1. End-stage renal disease maintained on hemodialysis on Thursday schedule. 2. Volume overload. Improved with diuresis. 3. Acute on chronic diastolic CHF and moderate mitral regurgitation and severe tricuspid regurgitation and pulmonary hypertension. 4. Hypertension with chronic kidney disease. Stable. 5. Anemia of chronic kidney disease. Maintained on Aranesp. Iron deficiency noted. 6. Diabetes mellitus. 7. Chronic kidney disease mineral bone disease. 8. History of coronary artery disease. 9. History of peripheral vascular disease. Plan: Hemodialysis today. Follow-up phosphorus level. IV iron 3 doses. First dose today. Follow-up echocardiogram.
--- NOTE | 2020-11-09 11:00 | ECHOF ---
Referral Reason:LV function MEASUREMENTS -------- HEIGHT: 172.7 cm WEIGHT: 76.2 kg BP: 141/79 RVIDd: 4.5 cm (< 3.3) IVSd: 1.4 cm (0.6 - 1.1) LVIDd: 3.7 cm (3.9 - 5.3) LVPWd: 1.4 cm (0.6 - 1.1) IVSs: 1.8 cm LVIDs: 2.2 cm LVPWs: 1.9 cm LAESV Index (A-L): 27.47 ml/m Ao Diam: 3.0 cm (2.0 - 3.7) AV Cusp: 1.5 cm (1.5 - 2.6) LA Diam: 4.4 cm (2.7 - 3.8) MV EXCURSION: 15.618 mm (> 18.000) MV EF SLOPE: 79 mm/s (70 - 150) EPSS: 0.6 cm MV E Cesar: 1.20 m/s MV DecT: 130 ms MV A Cesar: 1.03 m/s MV E/A Ratio: 1.17 RAP: 20.00 mmHg RVSP: 46.53 mmHg FINDINGS -------- This was a technically adequate study. The left ventricular size is normal. There is moderate concentric left ventricular hypertrophy. O verall left ventricular systolic function is normal with, an EF between 55 - 60 %. There is paradox ical/dysynergic septal motion consistent with right ventricular volume overload and/or elevated right ventricular end-diastolic pressure. The diastolic filling pattern is normal for the age of the pat ient 12.33. The right ventricle is severely enlarged. The left atrial size is normal. Normal LA size by volume 22+/-6 ml/m2. The right atrial size is normal. Aortic valve is trileaflet and is mildly thickened. The mitral valve is normal. The mitral valve leaflets are mildly thickened. Mild mitral regurgita tion is present. The tricuspid valve appears structurally normal. Severe tricuspid regurgitation present. There is mild to moderate pulmonary hypertension. The right ventricular systolic pressure, as measured by D oppler, is 46.53mmHg. Trace/mild (physiologic) pulmonic regurgitation. The aortic root size is normal. The inferior vena cava is dilated with no significant inspiratory collapse which is consistent estima cheko right atrial pressure of >20 mmHg. There is a trivial pericardial effusion present. CONCLUSIONS -------- 1. The left ventricular size is normal. 2. There is moderate concentric left ventricular hypertrophy. 3. Overall left ventricular systolic function is normal with, an EF between 55 - 60 %. 4. There is paradoxical/dysynergic septal motion consistent with right ventricular volume overload an d/or elevated right ventricular end-diastolic pressure. 5. The diastolic filling pattern is normal for the age of the patient 12.33 6. The right ventricle is severely enlarged. 7. Aortic valve is trileaflet and is mildly thickened. 8. The mitral valve leaflets are mildly thickened. 9. Mild mitral regurgitation is present. 10. Severe tricuspid regurgitation present. 11. There is mild to moderate pulmonary hypertension. 12. The right ventricular systolic pressure, as measured by Doppler, is 46.53mmHg. 13. Trace/mild (physiologic) pulmonic regurgitation. 14. The inferior vena cava is dilated with no significant inspiratory collapse which is consistent es timated right atrial pressure of >20 mmHg. 15. There is a trivial pericardial effusion present. [employer] DIRECTOR: Didi Haile RDCS
[2020-11-09] MEDS: SODIUM FERRIC GLUCONAT-SUCROSE 125 MG in SODIUM CHLORIDE 0.9% 100 ML IVPB SCH (12:17)
[2020-11-09] MEDS: CHOLESTYRAMINE (WITH SUGAR) 4 GM PACKET PO SCH ×2 (12:17→17:28)
--- NOTE | 2020-11-09 13:51 | P.PN ---
Subjective Progress Note Date: 11/09/20 HISTORY OF PRESENT ILLNESS: Patient examined this morning bedside. She underwent hemodialysis yesterday with removal of 2 L. She is scheduled to receive dialysis again today. She reports mild shortness of breath. Denies chest pain or pressure. PHYSICAL EXAM: VITAL SIGNS: Reviewed. GENERAL: Well-developed in no acute distress. NECK: Supple. No JVD or thyromegaly LUNGS: Respirations even and unlabored. Lungs diminished HEART: Regular rate and rhythm. S1 and S2 heard. EXTREMITIES: Normal range of motion. No clubbing or cyanosis. Peripheral pulses intact. 1+ bilateral lower extremity edema ASSESSMENT: Chest pain, reproducible on palpation Elevated troponin secondary to renal failure Fluid overload secondary to renal disease and missed dialysis Chronic anemia Coronary artery disease s/p bypass grafting 2017, exact detail of surgery unavailable. Cath report from the time showed CHIP PERSON circumflex and RCA with 70% LAD stenosis Hypertension Dyslipidemia Diabetes mellitus History of DVT on eliquis Factor V leiden Peripheral vascular disease s/p iliac stenting and popiteal artery revascularization Chronic nicotine dependence PLAN: Continue dialysis per nephrology No further workup from a cardiac standpoint We will sign off. Please reconsult if needed. Nurse practitioner note has been reviewed by physician. Signing provider agrees with the documented findings, assessment, and plan of care. Objective - Vital Signs Vital signs: Vital Signs Temp 98.4 F 11/09/20 11:42 Pulse 102 H 11/09/20 11:42 Resp 20 11/09/20 11:42 BP 141/67 11/09/20 11:42 Pulse Ox 94 L 11/09/20 11:42 Intake & Output 11/08/20 11/09/20 11/09/20 18:59 06:59 18:59 Intake Total 2000 250 240 Output Total 100 Balance 1999 150 240 Weight 77.111 kg 76.5 kg Intake: Oral 250 240 Hemodialysis 2000 Output: Urine 100 Other: Voiding Method Bedpan Bedpan - Labs CBC & Chem 7: 11/08/20 00:55 11/08/20 00:55 Labs: Abnormal Lab Results - Last 24 Hours (Table) 11/08/20 Range/Units 00:55 Iron 39 L (50-170) ug/dL
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
[2020-11-09] MEDS: hydrALAZINE HCL 50 MG TAB PO SCH ×3 (15:37→21:41)
[2020-11-09] MEDS: amLODIPine 5 MG TAB PO SCH ×2 (15:37→21:41)
[2020-11-09] MEDS: LOSARTAN 50 MG TAB PO SCH ×2 (15:38→21:41)
[2020-11-09] MEDS: PANTOPRAZOLE 40 MG TABLET PO SCH (17:26)
[2020-11-09] MEDS: LORATADINE 10 MG TAB PO SCH (17:27)
[2020-11-09] MEDS: METOPROLOL SUCCINATE (ER) 50 MG TAB.ER.24H PO SCH (17:27)
[2020-11-09] MEDS: CLOPIDOGREL 75 MG TAB PO SCH (17:27)
[2020-11-09] MEDS: NON FORMULARY DRUG (Rena-Vite 1 TAB) PO SCH (17:28)
--- NOTE | 2020-11-09 19:11 | PN ---
PROGRESS NOTE Extreme weakness, abdominal pain of significant nature, extreme weakness. Surgery and GI has seen her for further recommendations. She is LA grade C reflux esophagitis, cholecystectomy, bowel biopsy, chronic venous congestion of the liver. Lipase of 411. Cardiovascular S1-S2. Lungs transmitted upper sounds. GI is distended, obesity, diffuse mild tenderness. No guarding. Hematology 2+ edema. LABS: Reviewed. Hemoglobin 8.5, white count 9.2, BUN is 29, creatinine 3.18. ASSESSMENT: 1. Abdominal pain. Elevated lipase, most likely due to end-stage renal disease, not related to pancreatitis. 2. Multiple evaluations with liver biopsy. 3. Chronic venous congestion. 4. Sigmoid diverticulosis. 5. Multifactorial abdominal pain related to gastroesophageal reflux disease. 6. Fluid overload. 7. Noncompliance with dialysis. 8. Functional bowel disorder. Supportive care. Protonix 40 twice a day. Zofran for nausea. Questran for diarrhea. Imodium for diarrhea. Possible discharge home if they are not going to scope her in the next 24 to 48 hours. MMODL / IJN: [id number] /
[2020-11-09 23:17] LABS: Anisocytosis Slight; Basophils # (A) 0.1 k/uL (0-0.2); Basophils % (A) 1 %; Eosinophils # (A) 0.2 k/uL (0-0.7); Eosinophils % (A) 2 %; HCT 26.1 % (34.0-46.0); HGB 8.7 gm/dL (11.4-16.0); Lymphocytes # (A) 0.8 k/uL (1.0-4.8); Lymphocytes % (A) 8 %; MCH 29.5 pg (25.0-35.0); MCHC 33.5 g/dL (31.0-37.0); MCV 88.1 fL (80.0-100.0); Mean Platelet Volume 8.2; Monocytes # (A) 0.5 k/uL (0-1.0); Monocytes % (A) 5 %; Neutrophils # (A) 7.6 k/uL (1.3-7.7); Neutrophils % (A) 82 %; Platelet Count 400 k/uL (150-450); RBC 2.96 m/uL (3.80-5.40); RDW 16.6 % (11.5-15.5); WBC 9.4 k/uL (3.8-10.6)
[2020-11-09 23:26] LABS: Albumin 3.1 g/dL (3.5-5.0); Calcium 8.4 mg/dL (8.4-10.2); Phosphorus 3.8 mg/dL (2.5-4.5); Potassium 4.4 mmol/L (3.5-5.1); Total Bilirubin 0.8 mg/dL (0.2-1.3); Total Protein 6.4 g/dL (6.3-8.2)
[2020-11-10] MEDS: HYDROmorphone 0.5 MG/0.5 ML SYRINGE IVP PRN ×3 (04:16→20:33)
[2020-11-10] MEDS: CALCIUM ACETATE 667 MG TAB PO SCH ×2 (06:43→16:12)
[2020-11-10] MEDS: PANTOPRAZOLE 40 MG TABLET PO SCH ×2 (06:43→16:13)
[2020-11-10] MEDS: INSULIN DETEMIR (LEVEMIR) 100 UNIT/ML SYR SQ SCH (07:05)
--- NOTE | 2020-11-10 10:50 | P.PN ---
Subjective Progress Note Date: 11/10/20 Principal diagnosis: Abdominal pain The patient is seen lying in bed she tolerated her breakfast. Still reporting abdominal pain. No nausea or vomiting. Objective - Vital Signs Vital signs: Vital Signs Temp 98.2 F 11/09/20 17:30 Pulse 81 11/10/20 04:00 Resp 18 11/10/20 04:00 BP 133/69 11/10/20 04:00 Pulse Ox 100 11/10/20 04:00 Intake & Output 11/09/20 11/10/20 11/10/20 18:59 06:59 18:59 Intake Total 460 120 Output Total 3500 Balance -3040 120 Weight 76.5 kg Intake: Intake, IV Titration 100 Amount Sodium Ferric Gluconat- 100 Sucrose 125 mg In Sodium Chloride 0.9% 100 ml @ 100 mls/hr IVPB DAILY [facility] Rx#:[id number] Oral 360 120 Output: Hemodialysis 3500 Other: Voiding Method Bedpan Bedpan # Voids 1 - Exam On physical examination, patient appears comfortable in no apparent distress. HEAD: Normocephalic, atraumatic. EYES: No scleral icterus. No conjunctival injection. MOUTH: No lesions, tongue midline. NECK: Trachea midline, no gross abnormalities. ABDOMEN: Soft, obese and mildly tender to palpation. Bowel sounds are positive. No organomegaly. No guarding or rigidity. EXTREMITIES: No pedal edema. SKIN: No rashes, no jaundice. NEUROLOGIC: Alert and oriented x3. No focal deficits. - Labs CBC & Chem 7: 11/09/20 22:45 11/09/20 22:45 Labs: Abnormal Lab Results - Last 24 Hours (Table) 11/09/20 11/09/20 Range/Units 22:45 22:45 RBC 2.96 L (3.80-5.40) m/uL Hgb 8.7 L (11.4-16.0) gm/dL Hct 26.1 L (34.0-46.0) % RDW 16.6 H (11.5-15.5) % Lymphocytes # 0.8 L (1.0-4.8) k/uL Sodium 134 L (137-145) mmol/L Creatinine 2.11 H (0.52-1.04) mg/dL Glucose 191 H (74-99) mg/dL Alkaline Phosphatase 598 H (38-126) U/L Albumin 3.1 L (3.5-5.0) g/dL Assessment and Plan (1) Abdominal pain Narrative/Plan: 50-year-old female with multiple medical comorbidities including chronic complaints of abdominal pain. Lipase mildly elevated on presentation at 411 and likely related to underlying end-stage renal disease as lipase is minimally excreted and unlikely related to pancreatitis. She's had multiple evaluations with liver biopsy during cholecystectomy showing chronic venous congestion, colonoscopy in 08/2020 showing moderate sigmoid diverticulosis and fair prep and EGD on 08/2020 showing LA grade C esophagitis with no peptic ulcer disease. The patient's symptoms likely multifactorial related to uncontrolled reflux, fluid overload or from noncompliance with hemodialysis and functional bowel disorder, other etiologies are not excluded. Current Visit: No Status: Acute Code(s): R10.9 - UNSPECIFIED ABDOMINAL PAIN SNOMED Code(s): 58763552 (2) Ascites Current Visit: No Status: Acute Code(s): R18.8 - OTHER ASCITES SNOMED Code(s): 582343679 (3) S/P cholecystectomy Current Visit: No Status: Acute Code(s): Z90.49 - ACQUIRED ABSENCE OF OTHER SPECIFIED PARTS OF DIGESTIVE TRACT SNOMED Code(s): 751916582 Plan: Supportive care Okay for diet as tolerated Protonix 40 mg twice daily Continue Zofran as needed for nausea Continue Questran twice a day for diarrhea Continue Imodium for diarrhea No plans for endoscopic evaluation with EGD and colonoscopy in 08/2020 Continue supportive care Thank you for allowing us to participate in the care of the patient
--- NOTE | 2020-11-10 13:08 | P.PN ---
Subjective Progress Note Date: 11/10/20 Follow-up for ESRD Objective - Vital Signs Vital signs: Vital Signs Temp 98.2 F 11/09/20 17:30 Pulse 81 11/10/20 04:00 Resp 18 11/10/20 04:00 BP 133/69 11/10/20 04:00 Pulse Ox 100 11/10/20 04:00 Intake & Output 11/09/20 11/10/20 11/10/20 18:59 06:59 18:59 Intake Total 460 120 Output Total 3500 Balance -3040 120 Weight 76.5 kg Intake: Intake, IV Titration 100 Amount Sodium Ferric Gluconat- 100 Sucrose 125 mg In Sodium Chloride 0.9% 100 ml @ 100 mls/hr IVPB DAILY [facility] Rx#:[id number] Oral 360 120 Output: Hemodialysis 3500 Other: Voiding Method Bedpan Bedpan # Voids 1 - Exam Exam limited secondary to covid-19 pandemic and to limit PPE. - Labs CBC & Chem 7: 11/09/20 22:45 11/09/20 22:45 Labs: Abnormal Lab Results - Last 24 Hours (Table) 11/09/20 11/09/20 Range/Units 22:45 22:45 RBC 2.96 L (3.80-5.40) m/uL Hgb 8.7 L (11.4-16.0) gm/dL Hct 26.1 L (34.0-46.0) % RDW 16.6 H (11.5-15.5) % Lymphocytes # 0.8 L (1.0-4.8) k/uL Sodium 134 L (137-145) mmol/L Creatinine 2.11 H (0.52-1.04) mg/dL Glucose 191 H (74-99) mg/dL Alkaline Phosphatase 598 H (38-126) U/L Albumin 3.1 L (3.5-5.0) g/dL
[2020-11-10] MEDS: NON FORMULARY DRUG (Rena-Vite 1 TAB) PO SCH (13:13)
[2020-11-10] MEDS: amLODIPine 5 MG TAB PO SCH ×2 (13:14→20:58)
[2020-11-10] MEDS: hydrALAZINE HCL 50 MG TAB PO SCH ×3 (15:14→22:19)
[2020-11-10] MEDS: DICYCLOMINE 20 MG TAB PO SCH ×4 (15:15→20:59)
[2020-11-10] MEDS: HYDROcodone/APAP 7.5-325MG 1 EACH TAB PO SCH ×2 (15:15→20:29)
[2020-11-10] MEDS: PREGABALIN 75 MG CAP PO SCH ×2 (16:02→20:32)
[2020-11-10] MEDS: LOPERAMIDE 2 MG CAP PO SCH ×4 (16:02→20:29)
[2020-11-10] MEDS: CHOLESTYRAMINE (WITH SUGAR) 4 GM PACKET PO SCH ×2 (16:02→17:11)
[2020-11-10] MEDS: LOSARTAN 50 MG TAB PO SCH ×2 (16:03→20:32)
[2020-11-10] MEDS: SODIUM FERRIC GLUCONAT-SUCROSE 125 MG in SODIUM CHLORIDE 0.9% 100 ML IVPB SCH (16:08)
[2020-11-10] MEDS: METOPROLOL SUCCINATE (ER) 50 MG TAB.ER.24H PO SCH (16:12)
[2020-11-10] MEDS: LORATADINE 10 MG TAB PO SCH (16:12)
[2020-11-10] MEDS: CLOPIDOGREL 75 MG TAB PO SCH (16:12)
[2020-11-10] MEDS: APIXABAN 2.5 MG TABLET PO SCH ×2 (16:13→20:32)
[2020-11-10] MEDS ORDERED: SODIUM FERRIC GLUCONAT-SUCROSE 125 MG in SODIUM CHLORIDE 0.9% 100 ML IVPB ONE (17:00)
[2020-11-10 20:47] LABS: Glucose,Whole Blood 86 mg/dL (75-99)
--- NOTE | 2020-11-11 06:09 | PN ---
PROGRESS NOTE A 50-year-old -[place] female, weakness, anemia, and chest pain. She is complaining of severe abdominal pain, bloating, and diarrhea all day yesterday and last night. We will have GI reevaluate her. I told her all her medicines are maxed out and they are not going to scope her on this admission. Her labs appear to be stable. Cardiovascular S1, S2. Lungs are extremely weak and fatigued. She appears to have depression, but she is refusing any treatment. ASSESSMENT: 1. End-stage renal disease. 2. Generalized weakness. 3. Chronic diarrhea. 4. Chronic abdominal pain of unclear etiology. Await for multiple physicians to see her and clear her for discharge home. Continue with PT, OT. JAS / ELSYN: [id number] /
[2020-11-11 07:43] LABS: Glucose,Whole Blood 115 mg/dL (75-99)
[2020-11-11] MEDS: LOPERAMIDE 2 MG CAP PO SCH ×4 (09:25→21:23)
[2020-11-11] MEDS: HYDROcodone/APAP 7.5-325MG 1 EACH TAB PO SCH ×2 (09:25→21:48)
[2020-11-11] MEDS: LORATADINE 10 MG TAB PO SCH (09:30)
[2020-11-11] MEDS: INSULIN DETEMIR (LEVEMIR) 100 UNIT/ML SYR SQ SCH (09:56)
[2020-11-11] MEDS: CALCIUM ACETATE 667 MG TAB PO SCH ×2 (09:57→15:54)
[2020-11-11] MEDS: PANTOPRAZOLE 40 MG TABLET PO SCH ×2 (09:57→15:54)
[2020-11-11] MEDS: CLOPIDOGREL 75 MG TAB PO SCH (09:58)
[2020-11-11] MEDS: DICYCLOMINE 20 MG TAB PO SCH ×4 (09:58→21:49)
[2020-11-11] MEDS: hydrALAZINE HCL 50 MG TAB PO SCH ×3 (09:58→21:46)
[2020-11-11] MEDS: APIXABAN 2.5 MG TABLET PO SCH ×2 (09:58→21:49)
[2020-11-11] MEDS: LOSARTAN 50 MG TAB PO SCH ×2 (09:59→21:46)
[2020-11-11] MEDS: METOPROLOL SUCCINATE (ER) 50 MG TAB.ER.24H PO SCH (09:59)
[2020-11-11] MEDS: SODIUM FERRIC GLUCONAT-SUCROSE 125 MG in SODIUM CHLORIDE 0.9% 100 ML IVPB SCH (10:04)
[2020-11-11] MEDS: PREGABALIN 75 MG CAP PO SCH ×2 (10:04→21:49)
[2020-11-11 11:46] LABS: Glucose,Whole Blood 229 mg/dL (75-99)
[2020-11-11] MEDS: NON FORMULARY DRUG (Rena-Vite 1 TAB) PO SCH (12:01)
[2020-11-11] MEDS: amLODIPine 5 MG TAB PO SCH ×2 (12:34→21:50)
[2020-11-11] MEDS: CHOLESTYRAMINE (WITH SUGAR) 4 GM PACKET PO SCH ×2 (12:35→15:53)
--- NOTE | 2020-11-11 14:24 | P.PN ---
Subjective Progress Note Date: 11/11/20 Follow-up for ESRD Objective - Vital Signs Vital signs: Vital Signs Temp 98.3 F 11/11/20 07:55 Pulse 79 11/11/20 08:00 Resp 18 11/11/20 08:00 BP 132/78 11/11/20 07:55 Pulse Ox 94 L 11/11/20 07:55 Intake & Output 11/10/20 11/11/20 11/11/20 18:59 06:59 18:59 Intake Total 700 830 Output Total 300 Balance 700 830 -300 Weight 77 kg Intake: Intake, IV Titration 100 Amount Sodium Ferric Gluconat- 100 Sucrose 125 mg In Sodium Chloride 0.9% 100 ml @ 100 mls/hr IVPB ONCE ONE Rx#:[id number] Oral 600 830 Output: Urine 300 Other: Voiding Method Bedpan Diaper # Voids 1 # Bowel Movements 1 1 - Exam Exam limited secondary to covid-19 pandemic and to limit PPE. - Labs CBC & Chem 7: 11/09/20 22:45 11/09/20 22:45 Labs: Abnormal Lab Results - Last 24 Hours (Table) 11/11/20 11/11/20 Range/Units 07:42 11:44 POC Glucose (mg/dL) 115 H 229 H (75-99) mg/dL Assessment and Plan Assessment: #1 ESRD on hemodialysis, MWF schedule #2 volume overload #3 acute diastolic CHF #4 anemia with ESRD #5 hypertension with ESRD #6 metabolic bone disease with ESRD Plan: #1 hemodialysis MWF schedule.
[2020-11-11 16:54] LABS: Glucose,Whole Blood 153 mg/dL (75-99)
--- NOTE | 2020-11-11 19:00 | XR ---
EXAMINATION TYPE: XR Hip Complete RT DATE OF EXAM: 11/11/2020 COMPARISON: NONE HISTORY: Hip pain TECHNIQUE: 2 views FINDINGS: I see no fracture nor dislocation. Hip joint space is fairly normal. There is stent in the right femoral artery. Sacroiliac joint is intact. IMPRESSION: No acute abnormality of the right hip.
[2020-11-11] MEDS: HYDROmorphone 0.5 MG/0.5 ML SYRINGE IVP PRN (19:36)
[2020-11-11 21:39] LABS: Glucose,Whole Blood 161 mg/dL (75-99)
--- NOTE | 2020-11-12 04:05 | PN ---
PROGRESS NOTE A 50-year-old female, fell out of bed today, was complaining of severe knee pain and severe abdominal pain. Her abdominal pain continues to be severe. Would order an MRI. She has no fracture of her hip, but some bleeding. She has some stenting to the right femoral artery. We are going to do MRI of her abdomen because she continues to have abdominal pain. She is not getting better. Waiting for GI recommendations. She is extremely weak, fatigued, unable to ambulate without falling. She needs to go to a care home. She is 100% on room air to 95% on room air. Blood pressure is 106 to 117 over 70s, pulse 72 to 101, respiratory rate 16 to 18, temperature 98. CARDIOVASCULAR: S1-S2. LUNGS: Decreased breath sounds. GI: Distended due to obesity. HEMATOLOGY: Negative Homans. ASSESSMENT: 1. Fall. 2. Severe abdominal pain. 3. Hip pain. 4. Liver disease. 5. Gastroparesis. 6. Diabetes mellitus. 7. End-stage renal disease. Prognosis extremely guarded. I am going to order an MRI of her abdomen without contrast. Await for further GI recommendations. She is unable to ambulate without falling. We are going to order an MRI of her abdomen and go from there. Prognosis is guarded. MMODL / IJN: [id number] /
[2020-11-12 07:21] LABS: Anisocytosis Slight; Basophils % (A) 0 %; Eosinophils # (A) 0.2 k/uL (0-0.7); Eosinophils % (A) 2 %; HCT 24.3 % (34.0-46.0); HGB 7.9 gm/dL (11.4-16.0); Lymphocytes # (A) 0.8 k/uL (1.0-4.8); Lymphocytes % (A) 10 %; MCHC 32.6 g/dL (31.0-37.0); MCV 88.9 fL (80.0-100.0); Mean Platelet Volume 7.6; Monocytes # (A) 0.5 k/uL (0-1.0); Monocytes % (A) 6 %; Neutrophils # (A) 6.3 k/uL (1.3-7.7); Neutrophils % (A) 79 %; Platelet Count 378 k/uL (150-450); RBC 2.73 m/uL (3.80-5.40); RDW 16.7 % (11.5-15.5)
[2020-11-12] MEDS: amLODIPine 10 MG TAB PO SCH ×2 (07:45→19:49)
[2020-11-12] MEDS: NON FORMULARY DRUG (Rena-Vite 1 TAB) PO SCH (07:46)
[2020-11-12] MEDS: LOSARTAN 50 MG TAB PO SCH ×2 (07:46→19:58)
[2020-11-12] MEDS: hydrALAZINE HCL 50 MG TAB PO SCH ×3 (07:46→22:51)
[2020-11-12 08:10] LABS: Glucose,Whole Blood 184 mg/dL (75-99)
[2020-11-12] MEDS: PANTOPRAZOLE 40 MG TABLET PO SCH ×2 (08:13→16:35)
[2020-11-12] MEDS: CLOPIDOGREL 75 MG TAB PO SCH (08:13)
[2020-11-12] MEDS: CALCIUM ACETATE 667 MG TAB PO SCH ×2 (08:13→16:35)
[2020-11-12] MEDS: LORATADINE 10 MG TAB PO SCH (08:13)
[2020-11-12] MEDS: METOPROLOL SUCCINATE (ER) 50 MG TAB.ER.24H PO SCH (08:13)
[2020-11-12] MEDS: DICYCLOMINE 20 MG TAB PO SCH ×4 (08:13→22:51)
[2020-11-12] MEDS: PREGABALIN 75 MG CAP PO SCH ×2 (08:13→19:57)
[2020-11-12] MEDS: INSULIN DETEMIR (LEVEMIR) 100 UNIT/ML SYR SQ SCH (08:13)
[2020-11-12] MEDS: HYDROcodone/APAP 7.5-325MG 1 EACH TAB PO SCH ×2 (08:13→19:57)
[2020-11-12] MEDS: APIXABAN 2.5 MG TABLET PO SCH ×2 (08:13→19:57)
[2020-11-12] MEDS: LOPERAMIDE 2 MG CAP PO SCH ×4 (08:13→22:51)
[2020-11-12] MEDS: CHOLESTYRAMINE (WITH SUGAR) 4 GM PACKET PO SCH ×2 (10:02→16:32)
--- NOTE | 2020-11-12 10:15 | P.PN ---
Subjective Patient is seen in follow-up for end-stage renal disease. She is maintained on hemodialysis on Thursday schedule. Currently seeing while undergoing hemodialysis. No chest pain or shortness of breath. Oral intake fair. Vital signs are stable. General: The patient appeared well nourished and normally developed. HEENT: Head exam is unremarkable. Neck is without jugular venous distension. LUNGS: Breath sounds decreased. HEART: Rate and Rhythm are regular. ABDOMEN: Soft, mild tenderness. EXTREMITITES: Trace edema. Objective - Vital Signs Vital signs: Vital Signs Temp 98.7 F 11/12/20 06:47 Pulse 72 11/12/20 06:47 Resp 17 11/12/20 06:47 BP 111/67 11/12/20 06:47 Pulse Ox 99 11/12/20 06:47 Intake & Output 11/11/20 11/12/20 11/12/20 18:59 06:59 18:59 Intake Total 240 Output Total 300 Balance -60 Weight 77 kg Intake: Oral 240 Output: Urine 300 Other: Voiding Method Diaper Diaper # Voids 1 0 # Bowel Movements 1 0 - Labs CBC & Chem 7: 11/12/20 06:59 11/09/20 22:45 Labs: Abnormal Lab Results - Last 24 Hours (Table) 11/11/20 11/11/20 11/11/20 Range/Units 11:44 16:52 21:38 RBC (3.80-5.40) m/uL Hgb (11.4-16.0) gm/dL Hct (34.0-46.0) % RDW (11.5-15.5) % Lymphocytes # (1.0-4.8) k/uL POC Glucose (mg/dL) 229 H 153 H 161 H (75-99) mg/dL 11/12/20 11/12/20 Range/Units 06:59 08:08 RBC 2.73 L (3.80-5.40) m/uL Hgb 7.9 L (11.4-16.0) gm/dL Hct 24.3 L (34.0-46.0) % RDW 16.7 H (11.5-15.5) % Lymphocytes # 0.8 L (1.0-4.8) k/uL POC Glucose (mg/dL) 184 H (75-99) mg/dL Assessment and Plan Plan: Assessment: 1. End-stage renal disease maintained on hemodialysis on Thursday schedule. 2. Volume overload. Improved with ultrafiltration. 3. Acute on chronic diastolic CHF with mild mitral regurgitation and severe tricuspid regurgitation and mild to moderate pulmonary hypertension. 4. Hypertension with chronic kidney disease. Stable. 5. Anemia of chronic kidney disease. Maintained on Aranesp. Iron deficiency noted. Status post IV iron. 6. Diabetes mellitus. 7. Chronic kidney disease mineral bone disease. Phosphorus 3.8. 8. History of coronary artery disease. 9. History of peripheral vascular disease. Plan: Currently seen while undergoing hemodialysis. Next treatment on Thursday. Hold antihypertensives for systolic blood pressure less than 120.
[2020-11-12] MEDS: SODIUM FERRIC GLUCONAT-SUCROSE 125 MG in SODIUM CHLORIDE 0.9% 100 ML IVPB SCH (10:40)
[2020-11-12 11:43] LABS: Albumin 3.1 g/dL (3.80-4.90); Albumin/Globulin Ratio 1.19 (1.60-3.17); Anion Gap 11.2 mmol/L (4.00-12.00); BUN/Creat Ratio 9.25 Ratio (12.00-20.00); Calcium 8.5 mg/dL (8.7-10.3); Carbon Dioxide 20.8 mmol/L (21.6-31.8); Globulin 2.6 g/dL (1.6-3.3); Non-African American GFR(CKD) 12.1 (60.0-200.0); Potassium 5.2 mmol/L (3.5-5.5); Total Bilirubin 0.6 mg/dL (0.3-1.2); Total Protein 5.7 g/dL (6.2-8.2)
[2020-11-12 11:52] LABS: Glucose,Whole Blood 121 mg/dL (75-99)
--- NOTE | 2020-11-12 14:05 | P.PN ---
Subjective Progress Note Date: 11/12/20 Principal diagnosis: Elevated lipase, abdominal pain Is a 50-year-old -[place] female whose been admitted multiple times with chronic abdominal pain, nausea, vomiting and diarrhea. She has had extensive workup, including upper and lower endoscopies. She is status post cholecystectomy. The patient states she is not allowed to get up because she had a fall the other day. She reported right hip pain. Hip x-ray was completed which was negative for fracture. Patient seen lying in bed eating her lunch. She denies any vomiting today, states she still has abdominal pain. She had one loose bowel movement. She underwent dialysis today. An MRI of the abdomen has been ordered, however not completed yet. Objective - Vital Signs Vital signs: Vital Signs Temp 98.7 F 11/12/20 06:47 Pulse 68 11/12/20 12:27 Resp 16 11/12/20 12:27 BP 137/67 11/12/20 12:27 Pulse Ox 99 11/12/20 06:47 Intake & Output 11/11/20 11/12/20 11/12/20 18:59 06:59 18:59 Intake Total 240 Output Total 300 1500 Balance -60 -1500 Weight 77 kg Intake: Oral 240 Output: Urine 300 Hemodialysis 1500 Other: Voiding Method Diaper Diaper # Voids 1 0 # Bowel Movements 1 0 - Exam General appearance: The patient is alert, oriented, in no acute distress. HET: Head is normocephalic and atraumatic. Conjunctiva pink. Sclera anicteric. Neck: Supple without lymphadenopathy. Abdomen: Soft, obese, diffuse tenderness, nondistended with bowel sounds. No guarding or rigidity. Extremities: Normal skin color and turgor. No pedal edema Neurological: No focal deficits. Alert and oriented 3. - Labs CBC & Chem 7: 11/12/20 06:59 11/12/20 06:59 Labs: Abnormal Lab Results - Last 24 Hours (Table) 11/11/20 11/11/20 11/12/20 Range/Units 16:52 21:38 06:59 RBC 2.73 L (3.80-5.40) m/uL Hgb 7.9 L (11.4-16.0) gm/dL Hct 24.3 L (34.0-46.0) % RDW 16.7 H (11.5-15.5) % Lymphocytes # 0.8 L (1.0-4.8) k/uL Sodium (135-145) mmol/L Carbon Dioxide (21.6-31.8) mmol/L BUN (9.0-27.0) mg/dL Creatinine (0.6-1.5) mg/dL Est GFR (CKD-EPI)AfAm (60.0-200.0) Est GFR (CKD-EPI)NonAf (60.0-200.0) BUN/Creatinine Ratio (12.00-20.00) Ratio Glucose (70-110) mg/dL POC Glucose (mg/dL) 153 H 161 H (75-99) mg/dL Calcium (8.7-10.3) mg/dL AST (13-35) U/L Alkaline Phosphatase (41-126) U/L Total Protein (6.2-8.2) g/dL Albumin (3.80-4.90) g/dL Albumin/Globulin Ratio (1.60-3.17) g/dL 11/12/20 11/12/20 11/12/20 Range/Units 06:59 08:08 11:50 RBC (3.80-5.40) m/uL Hgb (11.4-16.0) gm/dL Hct (34.0-46.0) % RDW (11.5-15.5) % Lymphocytes # (1.0-4.8) k/uL Sodium 132 L (135-145) mmol/L Carbon Dioxide 20.8 L (21.6-31.8) mmol/L BUN 37.0 H (9.0-27.0) mg/dL Creatinine 4.0 H (0.6-1.5) mg/dL Est GFR (CKD-EPI)AfAm 14.0 L (60.0-200.0) Est GFR (CKD-EPI)NonAf 12.1 L (60.0-200.0) BUN/Creatinine Ratio 9.25 L (12.00-20.00) Ratio Glucose 150 H (70-110) mg/dL POC Glucose (mg/dL) 184 H 121 H (75-99) mg/dL Calcium 8.5 L (8.7-10.3) mg/dL AST 40 H (13-35) U/L Alkaline Phosphatase 694 H (41-126) U/L Total Protein 5.7 L (6.2-8.2) g/dL Albumin 3.10 L (3.80-4.90) g/dL Albumin/Globulin Ratio 1.19 L (1.60-3.17) g/dL Assessment and Plan (1) Abdominal pain Narrative/Plan: 50-year-old female with multiple medical comorbidities including chronic complaints of abdominal pain. Lipase mildly elevated on presentation at 411 and likely related to underlying end-stage renal disease as lipase is minimally e xcreted and unlikely related to pancreatitis. She's had multiple evaluations with liver biopsy during cholecystectomy showing chronic venous congestion, colonoscopy in 08/2020 showing moderate sigmoid diverticulosis and fair prep and EGD on 08/2020 showing LA grade C esophagitis with no peptic ulcer disease. The patient's symptoms likely multifactorial related to uncontrolled reflux, fluid overload or from noncompliance with hemodialysis and functional bowel disorder, other etiologies are not excluded. No plans for upper or lower endoscopy this admission. MRI of the abdomen ordered per Dr. Velasquez, pending. Current Visit: No Status: Acute Code(s): R10.9 - UNSPECIFIED ABDOMINAL PAIN SNOMED Code(s): 98866011 (2) Nausea and vomiting Current Visit: No Status: Acute Code(s): R11.2 - NAUSEA WITH VOMITING, UNSPECIFIED SNOMED Code(s): 26815056 (3) S/P cholecystectomy Current Visit: No Status: Acute Code(s): Z90.49 - ACQUIRED ABSENCE OF OTHER SPECIFIED PARTS OF DIGESTIVE TRACT SNOMED Code(s): 724825108 Plan: Supportive care Okay for diet as tolerated Protonix increased to 40 mg twice daily Continue Zofran as needed for nausea Continue Questran twice a day for diarrhea Continue Imodium for diarrhea No plans for endoscopic evaluation with EGD and colonoscopy in 08/2020 Continue supportive care Thank you for allowing us to participate in the care of the patient Dr. Polo Otto I agree with the dictator's note, documented as a scribe by Marissa Coley.
--- NOTE | 2020-11-12 16:15 | CDI ---
Documentation Clarification Form Date: 11/12/2020 03:45:25 PM From: Connie Rosales RN, CCDS Admit Date: 11/08/2020 12:43:00 PM Patient Name: Sharon Singh Visit Number: [id number] Discharge Date: ATTENTION: The Clinical Documentation Specialists (CDI) and [facility] Coding Staff appreciate your assistance in clarifying documentation. Please respond to the clarification below the line at the bottom and electronically sign. The CDI & [facility] Coding staff will review the response and follow-up if needed. Please note: Queries are made part of the Legal Health Record. If you have any questions, please contact the author of this message via ITS. Dr. Pavel Velasquez Acute on chronic CHF is documented in the Nephrology consult and subsequent progress notes. 11/09 In your progress note Fluid overload is documented. Please render your opinion ON findings for cause of fluid overload. History/Risk Factors: Diastolic CHF, ESRD on dialysis, COPD, Diabetes mellitus, DVT, Gastroparesis, Cirrhosis Clinical Indicators: 50-year-old female present to ED on 11/08 with complaints of chest pain. She has chronic shortness of breath with no worsening from her baseline. 11/08 VS/Pulse OX: 167/97 102 18 98.6 11/08 Chest x-ray: Cardiomegaly and pulmonary venous congestion. Diffuse interstitial prominence, most likely interstitial edema but pneumonia not excluded. 11/08 BNP: 59302 11/09 Echocardiogram Results: Overall left ventricular systolic function is normal with, an EF between 55-60 % there is mild to moderate pulmonary hypertension 11/08 Cardiology consult: Fluid overload secondary to renal disease and missed dialysis. Elevated troponin secondary to renal function. Chest pain is reproducible and atypical for angina no EKG evidence of ischemia 11/10 Nephrology: Volume overload improved with diuresis and dialysis. Acute diastolic CHF Treatment: Hemodialysis per orders of Nephrology (M, W, F) In your professional opinion, can you please further specify fluid overload and are you treating? Acute on Chronic Diastolic Heart Failure secondary to Fluid overload Fluid overload due to missed dialysis Unable to Determine Other, please specify (Last Revision: February 2018) MTDD
[2020-11-12 17:09] LABS: Glucose,Whole Blood 187 mg/dL (75-99)
[2020-11-12 20:41] LABS: Hepatitis B Surface AB- Quant 3.5 mIU/mL; Hepatitis B Surface Antibody Non-Reactive (Non-Reactive); Hepatitis B Surface Antigen Non-Reactive (Non-Reactive)
[2020-11-12 22:50] LABS: Glucose,Whole Blood 230 mg/dL (75-99)
--- NOTE | 2020-11-13 00:22 | PN ---
PROGRESS NOTE GI consult is pending. No further workup is needed. MRI of the abdomen is pending. She wants a bone evaluation by Orthopedic for the right hip and right knee. She does want fci. She will go home and no inpatient rehab. She wants to go home for the week weekend for Kay. Decreased with chronic abdominal pain and further order. No further workup needed at this point per GI. Cardiovascular S1-S2 lungs clear. GI is increased bowel sounds. Hematology negative Homans. Chronic abdominal pain. 1. End-stage renal disease throat elevated liver enzymes, unclear etiology. Continue current treatment. Possible discharge home. Follow up in next 24 to 48 hours. MMODL / IJN: [id number] /
[2020-11-13 06:24] LABS: Anisocytosis Slight; Basophils % (A) 1 %; Eosinophils # (A) 0.2 k/uL (0-0.7); Eosinophils % (A) 2 %; HCT 24.1 % (34.0-46.0); HGB 7.9 gm/dL (11.4-16.0); Lymphocytes # (A) 0.8 k/uL (1.0-4.8); Lymphocytes % (A) 10 %; MCH 29.4 pg (25.0-35.0); MCHC 32.8 g/dL (31.0-37.0); MCV 89.7 fL (80.0-100.0); Mean Platelet Volume 7.9; Monocytes # (A) 0.7 k/uL (0-1.0); Monocytes % (A) 8 %; Neutrophils # (A) 6.9 k/uL (1.3-7.7); Neutrophils % (A) 78 %; Platelet Count 364 k/uL (150-450); RBC 2.69 m/uL (3.80-5.40); RDW 17.1 % (11.5-15.5); WBC 8.8 k/uL (3.8-10.6)
[2020-11-13 07:27] LABS: Glucose,Whole Blood 236 mg/dL (75-99)
[2020-11-13] MEDS: INSULIN DETEMIR (LEVEMIR) 100 UNIT/ML SYR SQ SCH (08:04)
[2020-11-13] MEDS: CALCIUM ACETATE 667 MG TAB PO SCH ×2 (08:05→17:44)
[2020-11-13] MEDS: APIXABAN 2.5 MG TABLET PO SCH ×2 (08:07→21:02)
[2020-11-13] MEDS: amLODIPine 10 MG TAB PO SCH ×2 (08:07→20:55)
[2020-11-13] MEDS: DICYCLOMINE 20 MG TAB PO SCH ×4 (08:07→21:02)
[2020-11-13] MEDS: CLOPIDOGREL 75 MG TAB PO SCH (08:07)
[2020-11-13] MEDS: HYDROcodone/APAP 7.5-325MG 1 EACH TAB PO SCH ×2 (08:08→21:02)
[2020-11-13] MEDS: hydrALAZINE HCL 50 MG TAB PO SCH ×3 (08:08→21:02)
[2020-11-13] MEDS: LOPERAMIDE 2 MG CAP PO SCH ×4 (08:10→21:02)
[2020-11-13] MEDS: LOSARTAN 50 MG TAB PO SCH ×2 (08:10→21:02)
[2020-11-13] MEDS: METOPROLOL SUCCINATE (ER) 50 MG TAB.ER.24H PO SCH (08:10)
[2020-11-13] MEDS: LORATADINE 10 MG TAB PO SCH (08:10)
[2020-11-13] MEDS: NON FORMULARY DRUG (Rena-Vite 1 TAB) PO SCH (08:11)
[2020-11-13] MEDS: PREGABALIN 75 MG CAP PO SCH ×2 (08:11→21:02)
[2020-11-13] MEDS: PANTOPRAZOLE 40 MG TABLET PO SCH ×2 (08:12→17:44)
[2020-11-13] MEDS: CHOLESTYRAMINE (WITH SUGAR) 4 GM PACKET PO SCH ×2 (08:12→16:57)
[2020-11-13 10:22] LABS: African American GFR (CKD) 17.7 (60.0-200.0); Albumin 3.2 g/dL (3.80-4.90); Albumin/Globulin Ratio 1.23 (1.60-3.17); Anion Gap 10.5 mmol/L (4.00-12.00); BUN/Creat Ratio 8.18 Ratio (12.00-20.00); Calcium 8.4 mg/dL (8.7-10.3); Carbon Dioxide 21.5 mmol/L (21.6-31.8); Globulin 2.6 g/dL (1.6-3.3); Non-African American GFR(CKD) 15.3 (60.0-200.0); Potassium 4.8 mmol/L (3.5-5.5); Total Bilirubin 0.7 mg/dL (0.3-1.2); Total Protein 5.8 g/dL (6.2-8.2)
--- NOTE | 2020-11-13 10:45 | P.PN ---
Subjective Patient is seen in follow-up for end-stage renal disease. She is maintained on hemodialysis on Thursday schedule. No problems with dialysis yesterday. Oral intake fair. Vital signs are stable. General: The patient appeared well nourished and normally developed. HEENT: Head exam is unremarkable. Neck is without jugular venous distension. LUNGS: Breath sounds decreased. HEART: Rate and Rhythm are regular. ABDOMEN: Soft, mild tenderness. EXTREMITITES: Trace edema. Objective - Vital Signs Vital signs: Vital Signs Temp 98.4 F 11/13/20 08:00 Pulse 87 11/13/20 08:00 Resp 18 11/13/20 08:00 BP 154/83 11/13/20 08:00 Pulse Ox 96 11/13/20 08:00 Intake & Output 11/12/20 11/13/20 11/13/20 18:59 06:59 18:59 Intake Total 948 120 Output Total 1500 Balance -1500 948 120 Intake: Oral 948 120 Output: Hemodialysis 1500 Other: Voiding Method Diaper # Voids 0 # Bowel Movements 0 - Labs CBC & Chem 7: 11/13/20 05:55 11/13/20 05:55 Labs: Abnormal Lab Results - Last 24 Hours (Table) 11/12/20 11/12/20 11/12/20 Range/Units 06:59 11:50 17:04 RBC (3.80-5.40) m/uL Hgb (11.4-16.0) gm/dL Hct (34.0-46.0) % RDW (11.5-15.5) % Lymphocytes # (1.0-4.8) k/uL Sodium 132 L (135-145) mmol/L Carbon Dioxide 20.8 L (21.6-31.8) mmol/L BUN 37.0 H (9.0-27.0) mg/dL Creatinine 4.0 H (0.6-1.5) mg/dL Est GFR (CKD-EPI)AfAm 14.0 L (60.0-200.0) Est GFR (CKD-EPI)NonAf 12.1 L (60.0-200.0) BUN/Creatinine Ratio 9.25 L (12.00-20.00) Ratio Glucose 150 H (70-110) mg/dL POC Glucose (mg/dL) 121 H 187 H (75-99) mg/dL Calcium 8.5 L (8.7-10.3) mg/dL AST 40 H (13-35) U/L Alkaline Phosphatase 694 H (41-126) U/L Total Protein 5.7 L (6.2-8.2) g/dL Albumin 3.10 L (3.80-4.90) g/dL Albumin/Globulin Ratio 1.19 L (1.60-3.17) g/dL 11/12/20 11/13/20 11/13/20 Range/Units 22:49 05:55 05:55 RBC 2.69 L (3.80-5.40) m/uL Hgb 7.9 L (11.4-16.0) gm/dL Hct 24.1 L (34.0-46.0) % RDW 17.1 H (11.5-15.5) % Lymphocytes # 0.8 L (1.0-4.8) k/uL Sodium (135-145) mmol/L Carbon Dioxide 21.5 L (21.6-31.8) mmol/L BUN (9.0-27.0) mg/dL Creatinine 3.3 H (0.6-1.5) mg/dL Est GFR (CKD-EPI)AfAm 17.7 L (60.0-200.0) Est GFR (CKD-EPI)NonAf 15.3 L (60.0-200.0) BUN/Creatinine Ratio 8.18 L (12.00-20.00) Ratio Glucose 159 H (70-110) mg/dL POC Glucose (mg/dL) 230 H (75-99) mg/dL Calcium 8.4 L (8.7-10.3) mg/dL AST 51 H (13-35) U/L Alkaline Phosphatase 766 H (41-126) U/L Total Protein 5.8 L (6.2-8.2) g/dL Albumin 3.20 L (3.80-4.90) g/dL Albumin/Globulin Ratio 1.23 L (1.60-3.17) g/dL 11/13/20 Range/Units 07:25 RBC (3.80-5.40) m/uL Hgb (11.4-16.0) gm/dL Hct (34.0-46.0) % RDW (11.5-15.5) % Lymphocytes # (1.0-4.8) k/uL Sodium (135-145) mmol/L Carbon Dioxide (21.6-31.8) mmol/L BUN (9.0-27.0) mg/dL Creatinine (0.6-1.5) mg/dL Est GFR (CKD-EPI)AfAm (60.0-200.0) Est GFR (CKD-EPI)NonAf (60.0-200.0) BUN/Creatinine Ratio (12.00-20.00) Ratio Glucose (70-110) mg/dL POC Glucose (mg/dL) 236 H (75-99) mg/dL Calcium (8.7-10.3) mg/dL AST (13-35) U/L Alkaline Phosphatase (41-126) U/L Total Protein (6.2-8.2) g/dL Albumin (3.80-4.90) g/dL Albumin/Globulin Ratio (1.60-3.17) g/dL Assessment and Plan Plan: Assessment: 1. End-stage renal disease maintained on hemodialysis on Thursday schedule. 2. Volume overload. Improved with ultrafiltration. 3. Acute on chronic diastolic CHF with mild mitral regurgitation and severe tricuspid regurgitation and mild to moderate pulmonary hypertension. 4. Hypertension with chronic kidney disease. Stable. 5. Anemia of chronic kidney disease. Maintained on Aranesp. Iron deficiency noted. Status post IV iron. 6. Diabetes mellitus. 7. Chronic kidney disease mineral bone disease. Phosphorus 3.8. 8. History of coronary artery disease. 9. History of peripheral vascular disease. Plan: Hemodialysis tomorrow. Hold antihypertensives for systolic blood pressure less than 120.
[2020-11-13 11:59] LABS: Glucose,Whole Blood 240 mg/dL (75-99)
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
[2020-11-13] MEDS: INSULIN ASPART (NovoLOG) 100 UNIT/ML VIAL SQ SCH ×3 (14:21→21:12)
--- NOTE | 2020-11-13 15:14 | P.PN ---
Subjective Progress Note Date: 11/13/20 Principal diagnosis: Elevated lipase, abdominal pain This is a 50-year-old -[place] female whose been admitted multiple times with chronic abdominal pain, nausea, vomiting and diarrhea. She has had extensive workup, including upper and lower endoscopies. She is status post cholecystectomy. She had dialysis last 2 days. Today she is eating and tolerating her diet. She's had no vomiting. She states she has constant abdominal pain, however when entering the room she has been sleeping. Objective - Vital Signs Vital signs: Vital Signs Temp 98.4 F 11/13/20 08:00 Pulse 87 11/13/20 08:00 Resp 18 11/13/20 08:00 BP 154/83 11/13/20 08:00 Pulse Ox 96 11/13/20 08:00 Intake & Output 11/12/20 11/13/20 11/13/20 18:59 06:59 18:59 Intake Total 948 120 Output Total 1500 Balance -1500 948 120 Intake: Oral 948 120 Output: Hemodialysis 1500 Other: Voiding Method Diaper # Voids 0 # Bowel Movements 0 - Exam General appearance: The patient is alert, oriented, in no acute distress. HET: Head is normocephalic and atraumatic. Conjunctiva pink. Sclera anicteric. Neck: Supple without lymphadenopathy. Abdomen: Soft, obese, diffuse tenderness, nondistended with bowel sounds. No guarding or rigidity. Extremities: Normal skin color and turgor. No pedal edema Neurological: No focal deficits. Alert and oriented 3. - Labs CBC & Chem 7: 11/13/20 05:55 11/13/20 05:55 Labs: Abnormal Lab Results - Last 24 Hours (Table) 11/12/20 11/12/20 11/12/20 Range/Units 06:59 11:50 17:04 RBC (3.80-5.40) m/uL Hgb (11.4-16.0) gm/dL Hct (34.0-46.0) % RDW (11.5-15.5) % Lymphocytes # (1.0-4.8) k/uL Sodium 132 L (135-145) mmol/L Carbon Dioxide 20.8 L (21.6-31.8) mmol/L BUN 37.0 H (9.0-27.0) mg/dL Creatinine 4.0 H (0.6-1.5) mg/dL Est GFR (CKD-EPI)AfAm 14.0 L (60.0-200.0) Est GFR (CKD-EPI)NonAf 12.1 L (60.0-200.0) BUN/Creatinine Ratio 9.25 L (12.00-20.00) Ratio Glucose 150 H (70-110) mg/dL POC Glucose (mg/dL) 121 H 187 H (75-99) mg/dL Calcium 8.5 L (8.7-10.3) mg/dL AST 40 H (13-35) U/L Alkaline Phosphatase 694 H (41-126) U/L Total Protein 5.7 L (6.2-8.2) g/dL Albumin 3.10 L (3.80-4.90) g/dL Albumin/Globulin Ratio 1.19 L (1.60-3.17) g/dL 11/12/20 11/13/20 11/13/20 Range/Units 22:49 05:55 07:25 RBC 2.69 L (3.80-5.40) m/uL Hgb 7.9 L (11.4-16.0) gm/dL Hct 24.1 L (34.0-46.0) % RDW 17.1 H (11.5-15.5) % Lymphocytes # 0.8 L (1.0-4.8) k/uL Sodium (135-145) mmol/L Carbon Dioxide (21.6-31.8) mmol/L BUN (9.0-27.0) mg/dL Creatinine (0.6-1.5) mg/dL Est GFR (CKD-EPI)AfAm (60.0-200.0) Est GFR (CKD-EPI)NonAf (60.0-200.0) BUN/Creatinine Ratio (12.00-20.00) Ratio Glucose (70-110) mg/dL POC Glucose (mg/dL) 230 H 236 H (75-99) mg/dL Calcium (8.7-10.3) mg/dL AST (13-35) U/L Alkaline Phosphatase (41-126) U/L Total Protein (6.2-8.2) g/dL Albumin (3.80-4.90) g/dL Albumin/Globulin Ratio (1.60-3.17) g/dL Assessment and Plan (1) Abdominal pain Narrative/Plan: 50-year-old female with multiple medical comorbidities including chronic complaints of abdominal pain. Lipase mildly elevated on presentation at 411 and likely related to underlying end-stage renal disease as lipase is minimally excreted and unlikely related to pancreatitis. She's had multiple evaluations with liver biopsy during cholecystectomy showing chronic venous congestion, colonoscopy in 08/2020 showing moderate sigmoid diverticulosis and fair prep and EGD on 08/2020 showing LA grade C esophagitis with no peptic ulcer disease. The patient's symptoms likely multifactorial related to uncontrolled reflux, fluid overload or from noncompliance with hemodialysis and functional bowel disorder, other etiologies are not excluded. No plans for upper or lower endoscopy this admission. No further gastroenterology workup. Continue current medications. Current Visit: No Status: Acute Code(s): R10.9 - UNSPECIFIED ABDOMINAL PAIN SNOMED Code(s): 63363293 (2) Nausea and vomiting Current Visit: No Status: Acute Code(s): R11.2 - NAUSEA WITH VOMITING, UNSPECIFIED SNOMED Code(s): 05480132 (3) S/P cholecystectomy Current Visit: No Status: Acute Code(s): Z90.49 - ACQUIRED ABSENCE OF OTHER SPECIFIED PARTS OF DIGESTIVE TRACT SNOMED Code(s): 819844821 Plan: Supportive care Okay for diet as tolerated Protonix increased to 40 mg twice daily Continue Zofran as needed for nausea Continue Questran twice a day for diarrhea Continue Imodium for diarrhea No plans for endoscopic evaluation with EGD and colonoscopy in 08/2020 Continue supportive care Thank you for allowing us to participate in the care of the patient will sign off at this time Dr. Polo Otto I agree with the dictator's note, documented as a scribe by Marissa Coley.
[2020-11-13 17:06] LABS: Glucose,Whole Blood 184 mg/dL (75-99)
--- NOTE | 2020-11-13 19:11 | XR ---
EXAMINATION TYPE: XR knee complete RT DATE OF EXAM: 11/13/2020 COMPARISON: NONE HISTORY: Knee pain TECHNIQUE: 3 views FINDINGS: There is some mild spurring of the femoral and tibial condyles. There is mild spurring on t he patella. I see no fracture nor dislocation. There is stent in the femoral artery. The joint spaces are fairly normal. IMPRESSION: Mild osteoarthritis without significant joint space narrowing. No fracture seen.
[2020-11-13 21:02] LABS: Glucose,Whole Blood 184 mg/dL (75-99)
[2020-11-14 08:04] LABS: Glucose,Whole Blood 82 mg/dL (75-99)
[2020-11-14] MEDS: INSULIN DETEMIR (LEVEMIR) 100 UNIT/ML SYR SQ SCH (08:20)
[2020-11-14] MEDS: CALCIUM ACETATE 667 MG TAB PO SCH (08:21)
[2020-11-14] MEDS: METOPROLOL SUCCINATE (ER) 50 MG TAB.ER.24H PO SCH (08:36)
[2020-11-14] MEDS: LOSARTAN 50 MG TAB PO SCH (08:38)
[2020-11-14] MEDS: hydrALAZINE HCL 50 MG TAB PO SCH (08:39)
[2020-11-14] MEDS: amLODIPine 10 MG TAB PO SCH (08:40)
[2020-11-14] MEDS: HYDROcodone/APAP 7.5-325MG 1 EACH TAB PO SCH (08:40)
[2020-11-14] MEDS: LOPERAMIDE 2 MG CAP PO SCH ×2 (08:40→11:29)
[2020-11-14] MEDS: PREGABALIN 75 MG CAP PO SCH (08:42)
[2020-11-14] MEDS: PANTOPRAZOLE 40 MG TABLET PO SCH (08:42)
[2020-11-14] MEDS: LORATADINE 10 MG TAB PO SCH (08:42)
[2020-11-14] MEDS: APIXABAN 2.5 MG TABLET PO SCH (08:42)
[2020-11-14] MEDS: CLOPIDOGREL 75 MG TAB PO SCH (08:42)
[2020-11-14] MEDS: DICYCLOMINE 20 MG TAB PO SCH ×2 (08:43→11:29)
[2020-11-14] MEDS: INSULIN ASPART (NovoLOG) 100 UNIT/ML VIAL SQ SCH ×2 (08:43→11:28)
[2020-11-14] MEDS: NON FORMULARY DRUG (Rena-Vite 1 TAB) PO SCH (08:50)
[2020-11-14 08:52] VITALS: RESP 18
[2020-11-14] MEDS: CHOLESTYRAMINE (WITH SUGAR) 4 GM PACKET PO SCH (10:43)
--- NOTE | 2020-11-14 10:43 | P.PN ---
Subjective Patient is seen in follow-up for end-stage renal disease. She is maintained on hemodialysis on Thursday schedule. Oral intake is good. Scheduled for dialysis today. Vital signs are stable. General: The patient appeared well nourished and normally developed. HEENT: Head exam is unremarkable. Neck is without jugular venous distension. LUNGS: Breath sounds decreased. HEART: Rate and Rhythm are regular. ABDOMEN: Soft, mild tenderness. EXTREMITITES: Trace edema. Objective - Vital Signs Vital signs: Vital Signs Temp 98.6 F 11/14/20 08:00 Pulse 81 11/14/20 08:00 Resp 18 11/14/20 08:00 BP 119/71 11/14/20 08:00 Pulse Ox 94 L 11/14/20 08:00 Intake & Output 11/13/20 11/14/20 11/14/20 18:59 06:59 18:59 Intake Total 1276 474 Balance 1276 474 Intake: Oral 776 474 Other 500 Other: Voiding Method Diaper Diaper Diaper - Labs CBC & Chem 7: 11/13/20 05:55 11/13/20 05:55 Labs: Abnormal Lab Results - Last 24 Hours (Table) 11/13/20 11/13/20 11/13/20 Range/Units 11:55 17:01 21:01 POC Glucose (mg/dL) 240 H 184 H 184 H (75-99) mg/dL Assessment and Plan Plan: Assessment: 1. End-stage renal disease maintained on hemodialysis on Thursday schedule. 2. Volume overload. Improved with ultrafiltration. 3. Acute on chronic diastolic CHF with mild mitral regurgitation and severe tricuspid regurgitation and mild to moderate pulmonary hypertension. 4. Hypertension with chronic kidney disease. Stable. 5. Anemia of chronic kidney disease. Maintained on Aranesp. Iron deficiency noted. Status post IV iron. 6. Diabetes mellitus. 7. Chronic kidney disease mineral bone disease. Phosphorus 3.8. 8. History of coronary artery disease. 9. History of peripheral vascular disease. Plan: Hemodialysis today. Hold antihypertensives for systolic blood pressure less than 120.
[2020-11-14 11:27] LABS: Glucose,Whole Blood 193 mg/dL (75-99)
[2020-11-14 12:37] VITALS: BMI 30.7
[2020-11-14 13:57] VITALS: TEMP 98
[2020-11-14 15:07] VITALS: BP 140/77; PULSE 81
--- NOTE | 2020-11-14 18:05 | PN ---
PROGRESS NOTE ADDENDUM: She is in congestive heart failure secondary to fluid overload due to missed dialysis. MMAMAIRANIL / IJN: [id number] /
== END 2020-11-14 17:12 | disposition home health service (06) | DRG 291 ==
LOC: EC 23:54 → 3SCARD 11-08 01:54 → OBSVTOIN 11-08 12:43 → 3SCARD 11-08 13:11 → 5NMEDONC 11-10 19:23
PROVIDERS: ADMIT Family Medicine; ATTEND Family Medicine
PROC: 5A1D70Z Performance of Urinary Filtration, Intermittent, Less than 6 Hours Per Day (ICD-10-PCS; principal; 2020-11-08)
DX: I13.2 Hypertensive heart and chronic kidney disease with heart failure and with stage 5 chronic kidney disease, or end stage renal disease (principal); N18.6 End stage renal disease; I50.33 Acute on chronic diastolic (congestive) heart failure; F31.30 Bipolar disorder, current episode depressed, mild or moderate severity, unspecified; D68.51 Activated protein C resistance; R18.8 Other ascites; I25.10 Atherosclerotic heart disease of native coronary artery without angina pectoris; I08.1 Rheumatic disorders of both mitral and tricuspid valves; I27.20 Pulmonary hypertension, unspecified; K21.00 Gastro-esophageal reflux disease with esophagitis, without bleeding; J44.9 Chronic obstructive pulmonary disease, unspecified; I45.10 Unspecified right bundle-branch block; G89.29 Other chronic pain; E78.5 Hyperlipidemia, unspecified; E66.9 Obesity, unspecified; K52.9 Noninfective gastroenteritis and colitis, unspecified; F17.200 Nicotine dependence, unspecified, uncomplicated; D63.1 Anemia in chronic kidney disease; E11.22 Type 2 diabetes mellitus with diabetic chronic kidney disease; E11.43 Type 2 diabetes mellitus with diabetic autonomic (poly)neuropathy; E11.51 Type 2 diabetes mellitus with diabetic peripheral angiopathy without gangrene; K31.84 Gastroparesis; E88.89 Other specified metabolic disorders; K74.60 Unspecified cirrhosis of liver; E83.89 Other disorders of mineral metabolism; K57.30 Diverticulosis of large intestine without perforation or abscess without bleeding; I25.2 Old myocardial infarction; Z79.899 Other long term (current) drug therapy; Z80.3 Family history of malignant neoplasm of breast; Z79.02 Long term (current) use of antithrombotics/antiplatelets; Z79.01 Long term (current) use of anticoagulants; Z82.49 Family history of ischemic heart disease and other diseases of the circulatory system; Z82.5 Family history of asthma and other chronic lower respiratory diseases; Z90.49 Acquired absence of other specified parts of digestive tract; Z91.15 Patient's noncompliance with renal dialysis; Z86.73 Personal history of transient ischemic attack (TIA), and cerebral infarction without residual deficits; Z95.5 Presence of coronary angioplasty implant and graft; Z99.2 Dependence on renal dialysis; Z95.1 Presence of aortocoronary bypass graft; Z86.718 Personal history of other venous thrombosis and embolism; Z88.2 Allergy status to sulfonamides; Z88.8 Allergy status to other drugs, medicaments and biological substances; Z88.1 Allergy status to other antibiotic agents; Z91.040 Latex allergy status; Z98.51 Tubal ligation status
CPT/HCPCS: 36415; 71046; 73502; 80053; 82728; 83540; 83550; 83690; 83735; 83880; 84100; 84484; 85025; 85610; 85730; 86706; 87340; 90935; 93005; 93306; 94760; 96374; 96375; 96376; 99285

== ENCOUNTER 2020-11-18 01:16 | Observation (INO) | payer MEDICARE, OTHER ==
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
[2020-11-18] MEDS ORDERED: MORPHINE SULFATE 4 MG/ML SYRINGE IV STA ×2 (01:59→03:53)
[2020-11-18] MEDS ORDERED: NITROGLYCERIN SL TABS 0.4 MG TAB SUBLINGUAL STA (01:59)
[2020-11-18] MEDS ORDERED: hydrALAZINE HCL 20 MG/ML 1 ML VIAL IVP STA ×2 (01:59→03:53)
--- NOTE | 2020-11-18 02:11 | XR ---
EXAM: XR Chest, 1 View CLINICAL HISTORY: ITS.REASON XR Reason: dyspnea TECHNIQUE: Frontal view of the chest. COMPARISON: 11/08/2020 FINDINGS: Lungs: Asymmetric elevation of the right hemidiaphragm, similar to the previous exam. Subsegmental opacities at the right lung base are slightly increased from the previous exam and there is a suggestion of peripheral right mid to upper lung zone opacity. The pulmonary vasculature appears to be slightly prominent but is less conspicuous from the previous examination. Pleural space: Questionable new blunting of the right costophrenic margin cannot be excluded. Left costophrenic margin is sharp. No pneumothorax. Heart: Stable cardiomegaly. Mediastinum: No significant alteration with mediastinal clips, consistent with prior CABG. Bones/joints: Intact sternotomy wires. Tubes, lines and devices: A left internal jugular approach hemodialysis catheter is identified extending into the right atrium. A right subclavian approach portacatheter is identified with the tip in the superior vena cava, stable. IMPRESSION: Stable cardiomegaly. Asymmetric elevation of the right hemidiaphragm, similar to the previous exam. Subsegmental opacities at the right lung base are slightly increased from the previous exam and there is a suggestion of peripheral right mid to upper lung zone opacity. Differential consideration includes subsegmental pneumonia versus asymmetric edema. Trace right pleural effusion cannot be entirely excluded. No pneumothorax.
--- NOTE | 2020-11-18 02:40 | XR ---
EXAM: XR Right Hip With Pelvis When Performed, 2 or 3 Views CLINICAL HISTORY: ITS.REASON XR Reason: fall injury TECHNIQUE: Two or three views of the right hip with pelvis when performed. COMPARISON: 11/11/2020 FINDINGS: Bones/joints: Unremarkable. No acute fracture. No dislocation. Soft tissues: A long vascular stent in the region of the proximal to mid SFA is noted. No significant acute soft tissue abnormality identified. IMPRESSION: No acute osseous traumatic injury or abnormal alignment. No significant alteration from the previous exam.
[2020-11-18 02:59] LABS: Calcium 8.5 mg/dL (8.4-10.2); Magnesium 1.9 mg/dL (1.6-2.3); Total Bilirubin 0.7 mg/dL (0.2-1.3); Total Protein 6.5 g/dL (6.3-8.2)
[2020-11-18 03:05] LABS: Anisocytosis Slight; Basophils # (A) 0.1 k/uL (0-0.2); Basophils % (A) 1 %; Eosinophils # (A) 0.2 k/uL (0-0.7); Eosinophils % (A) 2 %; HCT 25.9 % (34.0-46.0); HGB 8.8 gm/dL (11.4-16.0); Lymphocytes # (A) 0.7 k/uL (1.0-4.8); Lymphocytes % (A) 7 %; MCH 29.8 pg (25.0-35.0); MCHC 34.1 g/dL (31.0-37.0); MCV 87.2 fL (80.0-100.0); Mean Platelet Volume 7.6; Monocytes # (A) 0.4 k/uL (0-1.0); Monocytes % (A) 4 %; Neutrophils # (A) 8.7 k/uL (1.3-7.7); Neutrophils % (A) 85 %; Platelet Count 333 k/uL (150-450); RBC 2.97 m/uL (3.80-5.40); RDW 16.7 % (11.5-15.5); WBC 10.2 k/uL (3.8-10.6)
[2020-11-18 04:02] LABS: INR 1.1 (<1.2); Partial Thromboplastin Time 43.6 sec (22.0-30.0)
[2020-11-18] MEDS ORDERED: NITROGLYCERIN OINT 1 INCH/GM PACKET TOPICAL STA (04:08)
[2020-11-18] MEDS ORDERED: NALOXONE 0.4 MG/ML 1 ML VIAL IV PRN (04:32)
[2020-11-18] MEDS ORDERED: NITROGLYCERIN SL TABS 0.4 MG TAB SUBLINGUAL PRN (04:34)
[2020-11-18] MEDS ORDERED: ONDANSETRON 4 MG TAB PO PRN (04:34)
[2020-11-18] MEDS ORDERED: METOCLOPRAMIDE 5 MG TAB PO PRN (09:00)
[2020-11-18] MEDS: HYDROcodone/APAP 7.5-325MG 1 EACH TAB PO SCH (09:28)
[2020-11-18] MEDS: LOPERAMIDE 2 MG CAP PO SCH ×4 (09:28→22:07)
[2020-11-18] MEDS: CALCIUM ACETATE 667 MG TAB PO SCH ×2 (09:30→17:17)
[2020-11-18] MEDS: APIXABAN 2.5 MG TABLET PO SCH ×2 (09:30→21:47)
[2020-11-18] MEDS: DICYCLOMINE 20 MG TAB PO SCH ×4 (09:30→22:07)
[2020-11-18] MEDS: CHOLESTYRAMINE (WITH SUGAR) 4 GM PACKET PO SCH ×2 (09:30→17:17)
[2020-11-18] MEDS: PREGABALIN 75 MG CAP PO SCH ×2 (09:30→21:47)
[2020-11-18] MEDS: PANTOPRAZOLE 40 MG TABLET PO SCH (09:30)
[2020-11-18] MEDS: CLOPIDOGREL 75 MG TAB PO SCH (09:30)
[2020-11-18] MEDS: FOLIC ACID-VIT B COMPLEX-VIT C 1 CAP PO SCH (09:30)
[2020-11-18 09:42] LABS: Glucose,Whole Blood 254 mg/dL (75-99)
[2020-11-18] MEDS ORDERED: diphenhydrAMINE 2% CREAM 28.4 GM TUBE TOPICAL PRN (10:12)
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
[2020-11-18] MEDS ORDERED: DARBEPOETIN ALFA 40 MCG/0.4 ML SYRINGE SQ SCH (12:00)
[2020-11-18 12:09] LABS: Glucose,Whole Blood 542 mg/dL (75-99)
[2020-11-18 12:10] LABS: Glucose,Whole Blood 374 mg/dL (75-99)
[2020-11-18] MEDS: hydrALAZINE HCL 50 MG TAB PO SCH ×3 (13:15→21:46)
[2020-11-18] MEDS: LOSARTAN 50 MG TAB PO SCH ×2 (13:27→21:47)
[2020-11-18] MEDS: amLODIPine 5 MG TAB PO SCH ×2 (13:27→21:47)
[2020-11-18] MEDS: METOPROLOL SUCCINATE (ER) 50 MG TAB.ER.24H PO SCH (13:27)
[2020-11-18] MEDS ORDERED: INSULIN ASPART (NovoLOG) 100 UNIT/ML VIAL SQ ONE (13:29)
[2020-11-18] MEDS: MORPHINE SULFATE 4 MG/ML SYRINGE IV PRN ×2 (13:34→21:48)
[2020-11-18 16:32] LABS: % Iron Saturation 11.29 (12.00-45.00)
[2020-11-18 17:46] LABS: Glucose,Whole Blood 92 mg/dL (75-99)
[2020-11-18] MEDS: INSULIN ASPART (NovoLOG) 100 UNIT/ML VIAL SQ SCH ×2 (17:48→21:53)
[2020-11-18 20:03] LABS: Glucose,Whole Blood 127 mg/dL (75-99)
[2020-11-19] MEDS: HYDROcodone/APAP 7.5-325MG 1 EACH TAB PO SCH ×3 (00:33→20:43)
[2020-11-19] MEDS ORDERED: INSULIN DETEMIR (LEVEMIR) 100 UNIT/ML SYR SQ SCH ×2 (07:00)
[2020-11-19 07:12] LABS: Glucose,Whole Blood 111 mg/dL (75-99)
[2020-11-19] MEDS: INSULIN ASPART (NovoLOG) 100 UNIT/ML VIAL SQ SCH ×4 (07:26→20:37)
[2020-11-19] MEDS: hydrALAZINE HCL 50 MG TAB PO SCH ×3 (08:34→20:43)
[2020-11-19] MEDS: DICYCLOMINE 20 MG TAB PO SCH ×3 (08:34→20:31)
[2020-11-19] MEDS: amLODIPine 5 MG TAB PO SCH ×2 (08:34→20:43)
[2020-11-19] MEDS: LOPERAMIDE 2 MG CAP PO SCH ×3 (08:34→19:57)
[2020-11-19] MEDS: PANTOPRAZOLE 40 MG TABLET PO SCH (08:34)
[2020-11-19] MEDS: CLOPIDOGREL 75 MG TAB PO SCH (08:34)
[2020-11-19] MEDS: PREGABALIN 75 MG CAP PO SCH ×2 (08:35→20:29)
[2020-11-19] MEDS: LOSARTAN 50 MG TAB PO SCH ×2 (08:35→20:29)
[2020-11-19] MEDS: METOPROLOL SUCCINATE (ER) 50 MG TAB.ER.24H PO SCH (08:36)
[2020-11-19] MEDS: FOLIC ACID-VIT B COMPLEX-VIT C 1 CAP PO SCH (08:36)
[2020-11-19] MEDS: CALCIUM ACETATE 667 MG TAB PO SCH ×2 (08:36→20:28)
[2020-11-19] MEDS: APIXABAN 2.5 MG TABLET PO SCH ×2 (08:36→20:29)
[2020-11-19] MEDS: CHOLESTYRAMINE (WITH SUGAR) 4 GM PACKET PO SCH ×2 (10:05→17:19)
[2020-11-19 11:02] LABS: Glucose,Whole Blood 222 mg/dL (75-99)
--- NOTE | 2020-11-19 13:35 | P.DS ---
Providers Date of admission: 11/18/20 04:34 Expected date of discharge: 11/19/20 Attending physician: Pavel Velasquez Consults: 11/18/20 04:33 Consult Physician Urgent Consulting Provider: Jerry Murillo Consult Reason/Comments: Dialysis patient. Volume overload. Do you want consulting provider notified?: Already Contacted [facility] Course: Final diagnosis -Shortness of breath, hypoxemia: Secondary to pulmonary edema from missing hemodialysis -Tachycardia patient does have history of atrial fibrillation presently in A. 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 Patient will up with Dr. Washington upon discharge. Patient will continue with hemodialysis Thursday/Thursday/Thursday. Total time taken is greater than 35 minutes. History of present illness This is a 50-year-old female who was recently admitted with history of end-stage renal disease on hemodialysis and apparently missed hemodialysis and had shortness of breath and was being closely monitored. She was found to have pulmonary edema and also recently fell and was having right-sided hip pain and musculoskeletal chest pain. Imagings were negative. Patient was seen and evaluated by nephrology and underwent hemodialysis and will likely resume Thursday/Thursday/Thursday schedule. PT/OT to evaluate the patient and assess for weakness due to recent fall although patient is refusing rehab. Patient states her family helps her and takes her dialysis. Case management following to assess for possible home care needs upon discharge. Patient will receive hemodialysis today prior to discharge. She instructed to follow-up with her primary care provider upon discharge and coordinate treatment plan this week as there is another holiday on when her dialysis days. No reports of chest pain , palpitations, or worsening shortness of breath. Patient has been afebrile. No reports of nausea or vomiting noted and patient is tolerating diet. Patient states she is just tired and no one is allowing her to sleep. Will be discharged home today. Guarded prognosis. On exam vital signs are stable. Temp is 97.5F, pulse is 85, respirations are 18, blood pressure is 129/75, oxygen saturation is 94% on 3 liters via nasal cannula. Cardio S1, S2 are muffled. Respiratory system shows diminished breath sounds at the bases with some scattered rhonchi noted. Abdomen is soft and obese, and nontender. Nervous system shows diffuse weakness. Please refer to medication reconciliation sheet for a list of medications. Patient Condition at Discharge: Fair Plan - Discharge Summary New Discharge Prescriptions: Continue Metoprolol Succinate (ER) [Toprol XL] 50 mg PO DAILY Марина-Twyla 1 tab PO DAILY Nitroglycerin Sl Tabs [Nitrostat] 0.4 mg SUBLINGUAL Q5M PRN #100 tab PRN Reason: Chest Pain Ondansetron [Zofran] 4 mg PO Q8H PRN PRN Reason: Nausea Apixaban [Eliquis] 2.5 mg PO BID Cetirizine HCl 10 mg PO DAILY Clopidogrel Bisulfate [Plavix] 75 mg PO DAILY hydrALAZINE HCL [Apresoline] 100 mg PO TID Pregabalin [Lyrica] 75 mg PO BID cap Pantoprazole [Protonix] 40 mg PO AC-BRKFST tablet. INSULIN ASPART (NovoLOG) [NovoLOG (formulary)] See Protocol SQ ACHS amLODIPine [Norvasc] 5 mg PO BID #60 tab Loperamide [Imodium] 2 mg PO QID #12 capsule Calcium Acetate [PhosLo] 667 mg PO AC-BID diphenhydrAMINE & Zinc Cream [Benadryl Cream] 1 applic TOPICAL BID PRN PRN Reason: Itching Dicyclomine [Bentyl] 20 mg PO QID 30 Days #120 tab Cholestyramine (with Sugar) [Questran Packet] 4 gm PO BID@1000,1800 15 Days #30 packet Hydrocodone/Acetaminophen [[place] 7.5-325] 1 tab PO BID Dulaglutide [Trulicity] 1.5 mg SQ Q7D Metoclopramide HCl [Reglan] 5 mg PO TID PRN PRN Reason: Nausea And Vomiting Losartan [Cozaar] 50 mg PO BID Darbepoetin Ramon [Aranesp] 40 mcg SQ Q7D syringe Changed Insulin Glargine,Hum.rec.anlog [Lantus Solostar] 15 unit SQ DAILY #0 Discharge Medication List Metoprolol Succinate (ER) [Toprol XL] 50 mg PO DAILY 02/01/20 [History] Марина-Twyla 1 tab PO DAILY 04/23/20 [History] Nitroglycerin Sl Tabs [Nitrostat] 0.4 mg SUBLINGUAL Q5M PRN #100 tab 05/11/20 [Rx] Ondansetron [Zofran] 4 mg PO Q8H PRN 05/21/20 [History] Apixaban [Eliquis] 2.5 mg PO BID 07/13/20 [History] Cetirizine HCl 10 mg PO DAILY 07/13/20 [History] Clopidogrel Bisulfate [Plavix] 75 mg PO DAILY 07/13/20 [History] hydrALAZINE HCL [Apresoline] 100 mg PO TID 07/13/20 [History] Pregabalin [Lyrica] 75 mg PO BID cap 08/06/20 [Rx] Pantoprazole [Protonix] 40 mg PO AC-BRKFST tablet. 09/12/20 [Rx] INSULIN ASPART (NovoLOG) [NovoLOG (formulary)] See Protocol SQ ACHS 09/17/20 [History] amLODIPine [Norvasc] 5 mg PO BID #60 tab 09/27/20 [Rx] Loperamide [Imodium] 2 mg PO QID #12 capsule 10/12/20 [Rx] Calcium Acetate [PhosLo] 667 mg PO AC-BID 10/13/20 [History] diphenhydrAMINE & Zinc Cream [Benadryl Cream] 1 applic TOPICAL BID PRN 10/13/20 [History] Cholestyramine (with Sugar) [Questran Packet] 4 gm PO BID@1000,1800 15 Days #30 packet 10/21/20 [Rx] Dicyclomine [Bentyl] 20 mg PO QID 30 Days #120 tab 10/21/20 [Rx] Dulaglutide [Trulicity] 1.5 mg SQ Q7D 11/08/20 [History] Hydrocodone/Acetaminophen [[place] 7.5-325] 1 tab PO BID 11/08/20 [History] Losartan [Cozaar] 50 mg PO BID 11/08/20 [History] Metoclopramide HCl [Reglan] 5 mg PO TID PRN 11/08/20 [History] Darbepoetin Ramon [Aranesp] 40 mcg SQ Q7D syringe 11/12/20 [Rx] Insulin Glargine,Hum.rec.anlog [Lantus Solostar] 15 unit SQ DAILY #0 11/19/20 [Rx] Follow up Appointment(s)/Referral(s): Pavel Velasquez MD [Primary Care Provider] - 1-2 days (Office is closed, please call and schedule an appointment.) Patient Instructions/Handouts: Insulin Glargine (By injection), Pulmonary Edema (DC), Diabetic Kidney Disease (DC) Activity/Diet/Wound Care/Special Instructions: Activity Limited until follow-up Follow-up with primary care provider upon discharge Continue current renal diet, low potassium, low phosphorus, low sodium Continue with dialysis Thursday/Thursday/Thursday Discharge Disposition: HOME SELF-CARE
--- NOTE | 2020-11-19 14:18 | PN ---
PROGRESS NOTE Patient is seen for followup for end-stage renal disease. She is scheduled for hemodialysis today. No significant complaints today. PHYSICAL EXAMINATION: On examination, blood pressure is 115/64, heart rate 80 per minute. She is afebrile. Examination shows patient is comfortable. She appears close to euvolemic. Her abdomen is soft, nontender. No significant edema noted in the lower extremities. MANAGER [employer]ATE[employer]IC DEVELOPMENT exam grossly intact. LABS: Labs from yesterday show potassium 5.0, sodium 137, hemoglobin 8.8 g/dL. ASSESSMENT: 1. End-stage renal disease, on hemodialysis, on a Thursday, Thursday, Thursday schedule. 2. Anemia of chronic disease, maintained on Aranesp. 3. Chronic kidney disease mineral bone disorder, maintained on PhosLo. 4. Volume overload, now improved. PLAN: Hemodialysis today. Patient can be discharged post dialysis. She is advised to follow up regularly as outpatient for her treatments as outpatient. MMODL / IJN: [id number] /
[2020-11-19 16:57] LABS: Glucose,Whole Blood 93 mg/dL (75-99)
[2020-11-19] MEDS: MORPHINE SULFATE 4 MG/ML SYRINGE IV PRN (19:59)
[2020-11-19 20:23] LABS: Glucose,Whole Blood 92 mg/dL (75-99)
[2020-11-19 20:43] VITALS: PULSE 78
[2020-11-19 22:54] VITALS: BP 132/75; RESP 16; TEMP 97.8
[2020-11-20] MEDS: LOPERAMIDE 2 MG CAP PO SCH (00:17)
[2020-11-20] MEDS: DICYCLOMINE 20 MG TAB PO SCH (00:17)
[2020-11-20] MEDS: MORPHINE SULFATE 4 MG/ML SYRINGE IV PRN (01:47)
[2020-11-26] MEDS ORDERED: NON FORMULARY DRUG (Dulaglutide [Trulicity] 1.5 MG/0.5 ML Pen.Injctr) SQ SCH (09:00)
== END 2020-11-20 03:49 | disposition home or self-care (01) ==
LOC: EC 01:16 → 6NMEDSUR 04:34
PROVIDERS: ADMIT Family Medicine; ATTEND Family Medicine
DX: I13.2 Hypertensive heart and chronic kidney disease with heart failure and with stage 5 chronic kidney disease, or end stage renal disease (principal); I50.1 Left ventricular failure, unspecified; N18.6 End stage renal disease; E11.21 Type 2 diabetes mellitus with diabetic nephropathy; I48.91 Unspecified atrial fibrillation; K21.9 Gastro-esophageal reflux disease without esophagitis; E78.5 Hyperlipidemia, unspecified; I73.9 Peripheral vascular disease, unspecified; E11.42 Type 2 diabetes mellitus with diabetic polyneuropathy; E11.22 Type 2 diabetes mellitus with diabetic chronic kidney disease; J44.9 Chronic obstructive pulmonary disease, unspecified; M25.551 Pain in right hip; R07.89 Other chest pain; I25.2 Old myocardial infarction; K74.60 Unspecified cirrhosis of liver; L29.8 Other pruritus; D63.1 Anemia in chronic kidney disease; K58.9 Irritable bowel syndrome, unspecified; E11.43 Type 2 diabetes mellitus with diabetic autonomic (poly)neuropathy; K31.84 Gastroparesis; D68.2 Hereditary deficiency of other clotting factors; M32.9 Systemic lupus erythematosus, unspecified; I71.4 Abdominal aortic aneurysm, without rupture; M54.16 Radiculopathy, lumbar region; F41.9 Anxiety disorder, unspecified; F31.9 Bipolar disorder, unspecified; F17.210 Nicotine dependence, cigarettes, uncomplicated; I45.10 Unspecified right bundle-branch block; M89.9 Disorder of bone, unspecified; E83.9 Disorder of mineral metabolism, unspecified; I07.1 Rheumatic tricuspid insufficiency; I27.20 Pulmonary hypertension, unspecified; Z91.15 Patient's noncompliance with renal dialysis; Z91.81 History of falling; Z79.899 Other long term (current) drug therapy; Z79.01 Long term (current) use of anticoagulants; Z79.02 Long term (current) use of antithrombotics/antiplatelets; Z79.4 Long term (current) use of insulin; Z79.891 Long term (current) use of opiate analgesic; Z88.1 Allergy status to other antibiotic agents; Z91.040 Latex allergy status; Z88.8 Allergy status to other drugs, medicaments and biological substances; Z88.2 Allergy status to sulfonamides; Z86.718 Personal history of other venous thrombosis and embolism; Z86.73 Personal history of transient ischemic attack (TIA), and cerebral infarction without residual deficits; Z87.19 Personal history of other diseases of the digestive system; Z87.01 Personal history of pneumonia (recurrent); Z87.2 Personal history of diseases of the skin and subcutaneous tissue; Z86.19 Personal history of other infectious and parasitic diseases; Z90.49 Acquired absence of other specified parts of digestive tract; Z95.1 Presence of aortocoronary bypass graft; Z95.5 Presence of coronary angioplasty implant and graft; Z98.51 Tubal ligation status; Z95.820 Peripheral vascular angioplasty status with implants and grafts; Z98.890 Other specified postprocedural states; Z87.898 Personal history of other specified conditions; Z91.89 Other specified personal risk factors, not elsewhere classified; Z82.5 Family history of asthma and other chronic lower respiratory diseases; Z80.9 Family history of malignant neoplasm, unspecified; Z82.49 Family history of ischemic heart disease and other diseases of the circulatory system
CPT/HCPCS: 96376 ×4; 96372; 96375 ×2; 96374; 99285; 36415; 93005; 97166; 83880; 80053; 82728; 83540; 83550; 83605; 83735; 84484; 85025; 85610; 85730; 73502; 71045; G0257 ×2; G0378 ×3; J2270 ×3; J0360; J1642; J0881; 90935

== ENCOUNTER 2021-10-13 19:10 | Inpatient (IN) | payer MEDICARE, OTHER ==
[2021-10-13] MEDS ORDERED: ONDANSETRON 4 MG/2 ML VIAL IVP STA (21:18)
[2021-10-13] MEDS ORDERED: MORPHINE SULFATE 4 MG/ML SYRINGE IV STA (21:34)
[2021-10-13] MEDS ORDERED: METOCLOPRAMIDE 5 MG/ML 2 ML VIAL IVP STA (21:34)
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
--- NOTE | 2021-10-13 22:31 | CT ---
EXAMINATION TYPE: CT abdomen pelvis wo con DATE OF EXAM: 10/13/2021 COMPARISON: 08/01/2020 HISTORY: abdominal pain, N/V/D CT DLP: 666.5 mGycm Automated exposure control for dose reduction was used. Images obtained of the abdomen pelvis from the diaphragm to the floor the pelvis with no contrast. Heart is enlarged. There is no pleural effusion. Lung bases are clear of consolidation. There is moderate amount of abdominal ascites fluid. Liver shows no dilated ducts. There is atheroscl erotic vascular calcification. Spleen is intact. The stomach is intact. There is no sign of a pancrea tic mass. Gallbladder is not seen. There is no evidence of dilated gallbladder. There is no adrenal mass. Kidneys show calcification consistent with vascular disease. There is no hy dronephrosis. There is no retroperitoneal adenopathy. There is 4.8 cm aneurysm of the lower abdominal aorta. There are common iliac artery stents noted. Uterus is anteverted. Urinary bladder distends sm oothly. There is no evidence of a pelvic mass. There are sigmoid diverticula. I see no sign of diverticulitis. There is no free air. There is no sig n of a bowel obstruction. The lumbar vertebra have normal alignment. The bony pelvis is intact. Hip j oints are intact. IMPRESSION: There is massive abdominal ascites fluid. There is improvement in the subcutaneous edema around the a bdomen compared to old exam. Ascites fluid is increased compared to old exam. Lower abdominal aortic aneurysm increased more than 1 cm compared to old exam. Cardiomegaly. Atherosclerotic vascular disease.
[2021-10-13 22:53] LABS: Basophils % (A) 0 %; Eosinophils # (A) 0.1 k/uL (0-0.7); Eosinophils % (A) 2 %; HCT 32.3 % (34.0-46.0); HGB 10.9 gm/dL (11.4-16.0); Lymphocytes # (A) 0.7 k/uL (1.0-4.8); Lymphocytes % (A) 10 %; MCH 27.4 pg (25.0-35.0); MCHC 33.7 g/dL (31.0-37.0); MCV 81.5 fL (80.0-100.0); Mean Platelet Volume 7.9; Monocytes # (A) 0.3 k/uL (0-1.0); Monocytes % (A) 4 %; Neutrophils # (A) 5.2 k/uL (1.3-7.7); Neutrophils % (A) 82 %; Platelet Count 243 k/uL (150-450); RBC 3.96 m/uL (3.80-5.40); RDW 15.7 % (11.5-15.5); WBC 6.4 k/uL (3.8-10.6)
[2021-10-13 23:12] LABS: Albumin 3.7 g/dL (3.5-5.0); Potassium 3.9 mmol/L (3.5-5.1); Total Bilirubin 0.9 mg/dL (0.2-1.3); Total Protein 7.7 g/dL (6.3-8.2)
--- NOTE | 2021-10-14 00:24 | XR ---
EXAMINATION TYPE: XR chest 1V portable DATE OF EXAM: 10/14/2021 COMPARISON: 11/18/2020 HISTORY: Short of breath TECHNIQUE: FINDINGS: Heart is enlarged. There is some interstitial infiltrate and atelectasis right lung base. T here is right central venous catheter with tip in the superior vena cava. There are sternal wires. Th ere is no pleural effusion. There is no gross heart failure. IMPRESSION: There is some infiltrate and atelectasis right lung base which is slightly improved siria red to old exam. No heart failure seen. Cardiomegaly not changed.
[2021-10-14] MEDS ORDERED: MORPHINE SULFATE 4 MG/ML SYRINGE IV STA (01:42)
[2021-10-14] MEDS ORDERED: NALOXONE 0.4 MG/ML 1 ML VIAL IV PRN (01:53)
[2021-10-14] MEDS ORDERED: ACETAMINOPHEN TAB 325 MG TAB PO PRN (01:53)
[2021-10-14] MEDS ORDERED: NITROGLYCERIN SL TABS 0.4 MG TAB SUBLINGUAL PRN (01:56)
[2021-10-14] MEDS ORDERED: METOCLOPRAMIDE 5 MG TAB PO PRN (01:56)
[2021-10-14] MEDS: SODIUM CHLORIDE 0.9% 1,000 ML IV SCH (02:03)
[2021-10-14] MEDS: NON FORMULARY DRUG (Dulaglutide [Trulicity] 1.5 MG/0.5 ML Pen.Injctr) SQ SCH (03:08)
[2021-10-14] MEDS: MORPHINE SULFATE 4 MG/ML SYRINGE IV PRN ×3 (06:28→17:47)
[2021-10-14] MEDS: CALCIUM ACETATE 667 MG TAB PO SCH ×2 (06:29→17:43)
[2021-10-14] MEDS: PANTOPRAZOLE 40 MG TABLET PO SCH ×2 (06:29→11:19)
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
[2021-10-14] MEDS: FAMOTIDINE 20 MG TAB PO SCH ×2 (11:18→19:33)
[2021-10-14] MEDS: PREGABALIN 75 MG CAP PO SCH ×2 (11:18→19:33)
[2021-10-14] MEDS: APIXABAN 2.5 MG TABLET PO SCH ×2 (11:19→19:33)
[2021-10-14] MEDS: CLOPIDOGREL 75 MG TAB PO SCH (11:19)
[2021-10-14] MEDS: LOPERAMIDE 2 MG CAP PO SCH ×4 (11:19→19:33)
[2021-10-14] MEDS: METOPROLOL SUCCINATE (ER) 50 MG TAB.ER.24H PO SCH (11:19)
[2021-10-14] MEDS: DICYCLOMINE 20 MG TAB PO SCH ×4 (11:19→19:33)
[2021-10-14] MEDS: CHOLESTYRAMINE (WITH SUGAR) 4 GM PACKET PO SCH ×2 (11:23→17:45)
[2021-10-14] MEDS: ONDANSETRON 4 MG TAB PO PRN ×2 (11:28→19:35)
[2021-10-14] MEDS: FOLIC ACID-VIT B COMPLEX-VIT C 1 CAP PO SCH (11:59)
[2021-10-14] MEDS: amLODIPine 5 MG TAB PO SCH ×2 (12:39→22:33)
[2021-10-14] MEDS: hydrALAZINE HCL 50 MG TAB PO SCH ×3 (12:39→19:33)
[2021-10-14] MEDS: LOSARTAN 50 MG TAB PO SCH ×2 (12:40→19:32)
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
--- NOTE | 2021-10-14 13:22 | US ---
EXAMINATION TYPE: US abdomen complete DATE OF EXAM: 10/14/2021 COMPARISON: CT from yesterday CLINICAL HISTORY: ascites, abdominal pain. EXAM MEASUREMENTS: Liver Length: 20.9 cm Gallbladder Wall: Surgically absent CBD: 0.9 cm Spleen: 10.1 cm Right Kidney: 10.6 x 4.2 x 4.8 cm Left Kidney: 10.7 x 4.9 x 5.5 cm Pancreas: visualized portions wnl Liver: enlarged Gallbladder: Surgically absent CBD: measure 0.9 cm Spleen: wnl Right Kidney: echogenic with calcification Left Kidney: wnl Upper IVC: wnl Abd Aorta: only visualized proximally due to bowel gas and distended abdomen. Incidental note is made of ascites. Visualized portion of pancreas unremarkable although entire pancreas not well-seen on images saved. V isualized liver is heterogeneously hyperechoic. Evaluation for focal masses suboptimal due to the het erogeneity. No hydronephrosis seen bilaterally in either kidney. There are central vascular calcifica tions and suspected tiny bilateral renal calculi on CT. Spleen is normal in size. Known intra-abdomin al ascites redemonstrated. Gallbladder surgically absent. IMPRESSION: Persistent scattered [id number] amount of intra-abdominal ascites appreciated more prominent on CT versus ultrasound. Redemonstration of known hepatomegaly.
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
[2021-10-14] MEDS ORDERED: amLODIPine 10 MG TAB PO STA (18:43)
[2021-10-14 18:59] LABS: Appearance,Urine Turbid (Clear); Bacteria,Urine Many /hpf; Bilirubin,Urine Negative (Negative); Blood,Urine Small (Negative); Color,Urine Yellow; Glucose,Urine (UA) Negative (Negative); Ketones,Urine Negative (Negative); Leukocyte Esterase,Urine Large (Negative); Nitrite,Urine Negative (Negative); PH, Urine 8.5 (5.0-8.0); Protein,Urine 3+ (Negative); RBC,Urine 26 /hpf (0-5); Urobilinogen,Urine <2.0 mg/dL (<2.0); WBC,Urine >182 /hpf (0-5)
[2021-10-14] MEDS ORDERED: PREGABALIN 75 MG CAP PO STA (19:50)
[2021-10-14] MEDS: METOCLOPRAMIDE 5 MG/ML 2 ML VIAL IVP PRN (20:08)
[2021-10-14] MEDS: ONDANSETRON 4 MG/2 ML VIAL IVP PRN (20:08)
[2021-10-15] MEDS: diphenhydrAMINE 25 MG CAP PO PRN ×2 (03:54→10:10)
[2021-10-15] MEDS: SODIUM CHLORIDE 0.9% 1,000 ML IV SCH (03:55)
[2021-10-15] MEDS: LEVOFLOXACIN 500MG-D5W PMX 500 MG in DEXTROSE/WATER 1 100ML.BAG IVPB SCH (10:16)
--- NOTE | 2021-10-15 11:25 | P.PN ---
Subjective Patient is seen in follow-up for end-stage renal disease. She is maintained on hemodialysis on Thursday schedule. Feels hungry. No vomiting or diarrhea. Vital signs are stable. General: The patient appeared well nourished and normally developed. HEENT: Head exam is unremarkable. LUNGS: Breath sounds decreased. HEART: Rate and Rhythm are regular. ABDOMEN: Soft, generalized tenderness. EXTREMITITES: No edema. Objective - Vital Signs Vital signs: Vital Signs Temp 98.0 F 10/15/21 07:00 Pulse 74 10/15/21 07:00 Resp 18 10/15/21 07:00 BP 157/76 10/15/21 07:00 Pulse Ox 99 10/15/21 07:00 Intake & Output 10/14/21 10/15/21 10/15/21 18:59 06:59 18:59 Intake Total 250 Output Total 3500 100 Balance -3500 150 Weight 77.111 kg Intake: Oral 250 Output: Emesis 100 Hemodialysis 3500 Other: # Voids 1 - Labs CBC & Chem 7: 10/13/21 22:46 10/13/21 22:46 Labs: Abnormal Lab Results - Last 24 Hours (Table) 10/13/21 Range/Units 21:18 Urine Appearance Turbid H (Clear) Urine pH 8.5 H (5.0-8.0) Urine Protein 3+ H (Negative) Urine Blood Small H (Negative) Ur Leukocyte Esterase Large H (Negative) Urine RBC 26 H (0-5) /hpf Urine WBC >182 H (0-5) /hpf Urine WBC Clumps Many H (None) /hpf Urine Bacteria Many H (None) /hpf Microbiology - Last 24 Hours (Table) 10/13/21 21:18 Urine Culture - Preliminary Urine,Voided Assessment and Plan Plan: Assessment: 1. End-stage renal disease maintained on hemodialysis on Thursday schedule. 2. Ascites. 3. Hypertension with chronic kidney disease. Stable. 4. Nausea vomiting and diarrhea. Possibly gastroenteritis. 5. Chronic kidney disease mineral bone disease. Phosphorus normal. Maintained on PhosLo. 6. AAA. Vascuar surgery following - no interventions planned at this time. Plan: Hemodialysis today. Paracentesis pending.
[2021-10-15] MEDS: amLODIPine 5 MG TAB PO SCH ×2 (13:31→21:19)
[2021-10-15] MEDS: FAMOTIDINE 20 MG TAB PO SCH (13:33)
[2021-10-15] MEDS: LOSARTAN 50 MG TAB PO SCH ×2 (13:33→21:17)
[2021-10-15] MEDS: METOPROLOL SUCCINATE (ER) 50 MG TAB.ER.24H PO SCH (13:33)
[2021-10-15] MEDS: CLOPIDOGREL 75 MG TAB PO SCH (13:34)
[2021-10-15] MEDS: APIXABAN 2.5 MG TABLET PO SCH (13:34)
[2021-10-15] MEDS: PANTOPRAZOLE 40 MG TABLET PO SCH (13:35)
[2021-10-15] MEDS: LOPERAMIDE 2 MG CAP PO SCH ×4 (13:35→21:17)
[2021-10-15] MEDS: CALCIUM ACETATE 667 MG TAB PO SCH ×2 (13:36→17:36)
[2021-10-15] MEDS: hydrALAZINE HCL 50 MG TAB PO SCH ×3 (13:37→21:18)
[2021-10-15] MEDS: DICYCLOMINE 20 MG TAB PO SCH ×4 (13:37→21:17)
[2021-10-15] MEDS: FOLIC ACID-VIT B COMPLEX-VIT C 1 CAP PO SCH (13:37)
[2021-10-15] MEDS: CHOLESTYRAMINE (WITH SUGAR) 4 GM PACKET PO SCH ×2 (13:37→17:37)
[2021-10-15] MEDS: PREGABALIN 75 MG CAP PO SCH ×2 (13:48→21:19)
--- NOTE | 2021-10-15 14:34 | P.PN ---
Subjective Progress Note Date: 10/15/21 Patient seen and examined lying in bed. She states abdominal pain has improved. She is no longer having any nausea or vomiting. She is currently undergoing hemodialysis. Diet advanced to regular diet. Objective - Vital Signs Vital signs: Vital Signs Temp 98.0 F 10/15/21 07:00 Pulse 74 10/15/21 07:00 Resp 18 10/15/21 07:00 BP 157/76 10/15/21 07:00 Pulse Ox 99 10/15/21 07:00 Intake & Output 10/14/21 10/15/21 10/15/21 18:59 06:59 18:59 Intake Total 250 250 Output Total 3500 100 100 Balance -3500 150 150 Weight 77.111 kg Intake: Oral 250 250 Output: Emesis 100 100 Hemodialysis 3500 Other: # Voids 1 0 - Exam General appearance: The patient is alert, oriented, appears in no acute distress. HET: Head is normocephalic and atraumatic. Neck: Supple without lymphadenopathy. Trachea midline. Heart: S1 S2. Regular rate and rhythm. Lungs: No crackles or wheezes are heard. Abdomen: Soft, nontender, nondistended. Extremities: Normal skin color and turgor. Left upper extremity with AV fistula with palpable thrill. Neurological: No focal deficits. Strength and sensation are grossly intact. - Labs CBC & Chem 7: 10/13/21 22:46 10/13/21 22:46 Labs: Abnormal Lab Results - Last 24 Hours (Table) 10/13/21 Range/Units 21:18 Urine Appearance Turbid H (Clear) Urine pH 8.5 H (5.0-8.0) Urine Protein 3+ H (Negative) Urine Blood Small H (Negative) Ur Leukocyte Esterase Large H (Negative) Urine RBC 26 H (0-5) /hpf Urine WBC >182 H (0-5) /hpf Urine WBC Clumps Many H (None) /hpf Urine Bacteria Many H (None) /hpf Microbiology - Last 24 Hours (Table) 10/13/21 21:18 Urine Culture - Preliminary Urine,Voided Assessment and Plan Assessment: 1. Abdominal aortic aneurysm 2. Nausea and vomiting 3. Abdominal pain 4. Chronic diarrhea 5. End-stage renal disease on hemodialysis 6. Chronic liver disease with history of ascites 7. Diabetes mellitus Plan: CT abdomen and pelvis reviewed without contrast reporting abdominal aortic aneurysm measuring 4.8 cm, patient known to have abdominal aortic aneurysm. However if you look back at the CT angiogram of thoracic abdomen and pelvis aorta done on 04/23/2020 which is more accurate assessment the abdominal aortic aneurysm was measuring at 4.2 cm at that time. There is no indication for any acute vascular surgical intervention. Patient is to follow-up outpatient with vascular surgery for further surveillance. Venous duplex of left upper extremity to evaluate functioning AV fistula was created in May 2020 Thank you for this consultation, we will sign off at this time. The impression and plan of care has been dictated as directed. Dr. Massey I performed a history and examination of this patient, discussed the same with the dictator. I agree with the dictator's note ,documented as a scribe. Any additional findings or plans will be noted.
[2021-10-15] MEDS: MORPHINE SULFATE 4 MG/ML SYRINGE IV PRN ×2 (15:05→21:50)
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
[2021-10-15] MEDS ORDERED: HEPARIN SODIUM 1,000 UN/ML (10ML VL) IV PRN (20:37)
[2021-10-15] MEDS ORDERED: HEPARIN SODIUM 1,000 UN/ML (10ML VL) IV ONE (20:37)
[2021-10-15] MEDS ORDERED: HEPARIN SOD,PORK IN 0.45% NACL 25,000 UNIT in 0.45% NACL 1 250ML.BAG IV SCH (20:45)
--- NOTE | 2021-10-15 21:34 | US ---
EXAMINATION TYPE: US venous doppler duplex UE LT DATE OF EXAM: 10/15/2021 COMPARISON: NONE CLINICAL HISTORY: EVAL DVT, pain. Pain. Patient has AV fistula in upper arm. SIDE PERFORMED: Left. Left Arm: Slight color defect and internal echoes seen near upper IJV along wall. Unable to fully com press IJV upper and lower. Color flow is seen within all remaining veins imaged. Patient has AV fistula, there is vascular anatomy variation throughout the arm, slightly limited exam . IMPRESSION: No evidence of deep vein thrombosis in the left arm. There is some chronic thrombus in the internal j ugular vein on the left side.
[2021-10-15] MEDS ORDERED: ALPRAZolam 0.25 MG TAB PO STA (21:43)
[2021-10-15] MEDS ORDERED: BENZOCAINE/MENTHOL LOZENG 1 EACH LOZENGE MUCOUS MEM PRN (22:44)
[2021-10-16] MEDS: ONDANSETRON 4 MG/2 ML VIAL IVP PRN ×3 (00:36→18:26)
[2021-10-16] MEDS: HEPARIN SODIUM,PORCINE/PF 5,000 UNIT/0.5 ML SYRINGE SQ SCH ×3 (01:10→23:03)
[2021-10-16] MEDS: MORPHINE SULFATE 4 MG/ML SYRINGE IV PRN ×4 (02:56→23:17)
[2021-10-16] MEDS: METOCLOPRAMIDE 5 MG/ML 2 ML VIAL IVP PRN (02:57)
[2021-10-16] MEDS: SODIUM CHLORIDE 0.9% 1,000 ML IV SCH (04:22)
[2021-10-16 07:42] LABS: INR 1.1 (<1.2); Prothrombin Time 11.9 sec (9.0-12.0)
[2021-10-16] MEDS: LEVOFLOXACIN 500MG-D5W PMX 500 MG in DEXTROSE/WATER 1 100ML.BAG IVPB SCH (08:19)
[2021-10-16] MEDS: LOSARTAN 50 MG TAB PO SCH ×2 (08:21→23:02)
[2021-10-16] MEDS: PANTOPRAZOLE 40 MG TABLET PO SCH ×2 (08:21→08:37)
[2021-10-16] MEDS: DICYCLOMINE 20 MG TAB PO SCH ×5 (08:21→23:02)
[2021-10-16] MEDS: amLODIPine 5 MG TAB PO SCH ×2 (08:21→23:02)
[2021-10-16] MEDS: CALCIUM ACETATE 667 MG TAB PO SCH ×2 (08:21→17:37)
[2021-10-16] MEDS: hydrALAZINE HCL 50 MG TAB PO SCH ×4 (08:21→23:08)
[2021-10-16] MEDS: PREGABALIN 75 MG CAP PO SCH ×2 (08:21→23:03)
[2021-10-16] MEDS: CLOPIDOGREL 75 MG TAB PO SCH (08:21)
[2021-10-16] MEDS: LOPERAMIDE 2 MG CAP PO SCH ×4 (08:22→23:02)
[2021-10-16] MEDS: FOLIC ACID-VIT B COMPLEX-VIT C 1 CAP PO SCH ×2 (08:22→11:52)
--- NOTE | 2021-10-16 11:05 | P.PN ---
Subjective Patient is seen in follow-up for end-stage renal disease. She is maintained on hemodialysis on Thursday schedule. Vomited last night. Vital signs are stable. General: The patient appeared well nourished and normally developed. HEENT: Head exam is unremarkable. LUNGS: Breath sounds decreased. HEART: Rate and Rhythm are regular. ABDOMEN: Soft, generalized tenderness. EXTREMITITES: No edema. Objective - Vital Signs Vital signs: Vital Signs Temp 99.1 F 10/16/21 07:00 Pulse 66 10/16/21 07:00 Resp 16 10/16/21 07:00 BP 127/66 10/16/21 07:00 Pulse Ox 95 10/16/21 07:00 Intake & Output 10/15/21 10/16/21 10/16/21 18:59 06:59 18:59 Intake Total 1050 Output Total 2800 1 Balance -1750 -1 Intake: Oral 750 Hemodialysis 300 Output: Emesis 100 1 Hemodialysis 2700 Other: Voiding Method Bedside Commode # Voids 2 1 1 - Labs CBC & Chem 7: 10/13/21 22:46 10/13/21 22:46 Labs: Abnormal Lab Results - Last 24 Hours (Table) 10/15/21 Range/Units 10:00 Procalcitonin 0.18 H (0.02-0.09) ng/mL Microbiology - Last 24 Hours (Table) 10/13/21 21:18 Urine Culture - Preliminary Urine,Voided Gram Neg Bacilli Assessment and Plan Plan: Assessment: 1. End-stage renal disease maintained on hemodialysis on Thursday schedule. 2. Ascites. 3. Hypertension with chronic kidney disease. Stable. 4. Nausea vomiting and diarrhea. Possibly gastroenteritis. 5. Chronic kidney disease mineral bone disease. Phosphorus normal. Maintained on PhosLo. 6. AAA. Vascuar surgery following - no interventions planned at this time. 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 7. Gram-negative UTI on antibiotics. Plan: Hemodialysis on Thursday. Paracentesis pending.
[2021-10-16 11:28] LABS: Basophils # (A) 0.02 X 10*3/uL (0.00-0.10); Basophils % (A) 0.2 %; Eosinophils # (A) 0.02 X 10*3/uL (0.04-0.35); Eosinophils % (A) 0.2 %; HCT 31.5 % (37.2-46.3); HGB 10.3 g/dL (12.0-15.0); Lymphocytes # (A) 0.67 X 10*3/uL (0.90-5.00); MCH 26.8 pg (27.0-32.0); MCHC 32.7 g/dL (32.0-37.0); Mean Platelet Volume 9.8 fL (9.5-12.2); Monocytes # (A) 0.72 X 10*3/uL (0.20-1.00); Monocytes % (A) 8.6 %; Neutrophils # (A) 6.87 X 10*3/uL (1.80-7.70); Neutrophils % (A) 82.5 %; Platelet Count 215 X 10*3/uL (140-440); RBC 3.84 X 10*6/uL (4.10-5.20); RDW 15.4 % (11.5-14.5); WBC 8.34 X 10*3/uL (4.50-10.00)
[2021-10-16] MEDS: CHOLESTYRAMINE (WITH SUGAR) 4 GM PACKET PO SCH ×2 (11:45→17:37)
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
[2021-10-16] MEDS: TAMSULOSIN 0.4 MG CAP.ER.24H PO SCH (14:13)
[2021-10-16] MEDS: METOPROLOL SUCCINATE (ER) 100 MG TAB.ER.24H PO SCH (14:13)
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
--- NOTE | 2021-10-16 20:41 | XR ---
EXAMINATION TYPE: XR KUB DATE OF EXAM: 10/16/2021 COMPARISON: NONE HISTORY: Abdominal pain TECHNIQUE: 2 views FINDINGS: There is no sign of intestinal obstruction or pneumoperitoneum. There is some interstitial infiltrate at the lung bases. There is no definite pleural effusion. There are metallic small densiti es in the left upper quadrant. There is no evidence of abdominal mass. There are no calcifications ov er the kidneys. There is some lucency over the liver consistent with biliary air. IMPRESSION: There is probably some biliary air. Portal venous air not entirely excluded. This appears to be a change compared to CT scan of 10/13/2021.
[2021-10-17] MEDS: ONDANSETRON 4 MG/2 ML VIAL IVP PRN ×3 (00:36→20:09)
[2021-10-17] MEDS: SODIUM CHLORIDE 0.9% 1,000 ML IV SCH ×2 (05:19→14:58)
[2021-10-17] MEDS: LEVOFLOXACIN 500MG-D5W PMX 500 MG in DEXTROSE/WATER 1 100ML.BAG IVPB SCH (09:22)
--- NOTE | 2021-10-17 09:38 | US ---
EXAMINATION TYPE: US liver DATE OF EXAM: 10/17/2021 COMPARISON: CT 4 days ago CLINICAL HISTORY: abd pain . Abdominal pain and ascites. Hx cholecystectomy. EXAM MEASUREMENTS: Liver Length: 20.0 cm CBD: 0.95 cm Right Kidney: 10.6 x 4.7 x 4.0 cm Limited due to gas. Pancreas: Slightly limited, appears hyperechoic. Liver: Appears enlarged and coarse with increased echogenicity. Gallbladder: Surgically absent. Evidence for sonographic Richards's sign: No. CBD: Portions seen appear wnl post-cholecystectomy. Right Kidney: Tiny hyperechoic areas seen throughout, largest measures 0.3 x 0.4 x 0.3 cm. Ascites seen within RUQ/midline epigastric area. Visualized pancreas appears within normal limits. Visualized liver is heterogeneously hyperechoic wit h adjacent ascites. Gallbladder surgically absent. Common bile duct upper limits of normal after chol ecystectomy. Increased cortical echogenicity in the right kidney with punctate calcifications. No hyd ronephrosis. IMPRESSION: Small amount of intra-abdominal ascites on ultrasound redemonstrated. Diffuse fatty infil tration and/or underlying hepatocellular disease of liver again seen.
[2021-10-17] MEDS: hydrALAZINE HCL 50 MG TAB PO SCH ×3 (10:29→21:52)
[2021-10-17] MEDS: CALCIUM ACETATE 667 MG TAB PO SCH ×3 (10:29→17:46)
[2021-10-17] MEDS: PANTOPRAZOLE 40 MG TABLET PO SCH (10:29)
[2021-10-17] MEDS: FOLIC ACID-VIT B COMPLEX-VIT C 1 CAP PO SCH (10:29)
[2021-10-17] MEDS: TAMSULOSIN 0.4 MG CAP.ER.24H PO SCH ×2 (10:29→11:51)
[2021-10-17] MEDS: amLODIPine 5 MG TAB PO SCH ×3 (10:29→21:53)
[2021-10-17] MEDS: CLOPIDOGREL 75 MG TAB PO SCH (10:29)
[2021-10-17] MEDS: DICYCLOMINE 20 MG TAB PO SCH ×4 (10:29→21:53)
[2021-10-17] MEDS: CHOLESTYRAMINE (WITH SUGAR) 4 GM PACKET PO SCH ×2 (10:30→17:46)
[2021-10-17] MEDS: PREGABALIN 75 MG CAP PO SCH ×3 (10:30→21:53)
[2021-10-17] MEDS: LOPERAMIDE 2 MG CAP PO SCH ×4 (10:30→21:52)
[2021-10-17] MEDS: METOPROLOL SUCCINATE (ER) 100 MG TAB.ER.24H PO SCH ×2 (10:30→11:51)
[2021-10-17] MEDS: LOSARTAN 50 MG TAB PO SCH ×3 (10:30→21:53)
[2021-10-17] MEDS ORDERED: busPIRone HCl 10 MG TAB PO PRN (11:50)
[2021-10-17] MEDS: HEPARIN SODIUM,PORCINE/PF 5,000 UNIT/0.5 ML SYRINGE SQ SCH ×2 (11:52→21:53)
[2021-10-17] MEDS: MORPHINE SULFATE 4 MG/ML SYRINGE IV PRN ×2 (12:02→20:09)
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
[2021-10-17] MEDS: DULoxetine HCL 30 MG CAPSULE.DR PO SCH (14:57)
--- NOTE | 2021-10-17 16:42 | P.PN ---
Subjective Progress Note Date: 10/17/21 Follow-up for ESRD. Objective - Vital Signs Vital signs: Vital Signs Temp 98.7 F 10/17/21 14:30 Pulse 74 10/17/21 14:30 Resp 16 10/17/21 14:30 BP 122/61 10/17/21 14:30 Pulse Ox 92 L 10/17/21 14:30 Intake & Output 10/16/21 10/17/21 10/17/21 18:59 06:59 18:59 Intake Total 100 Output Total 0 Balance 100 0 Intake: Intake, IV Titration 100 Amount Levofloxacin 500Mg-D5w 100 Pmx 500 mg In Dextrose/ Water 1 100ml.bag @ 100 mls/hr IVPB Q24H [facility] Rx#: [id number] Output: Urine 0 Other: # Voids 1 0 - Exam No acute distress. S1-S2 heard Lungs clear No edema - Labs CBC & Chem 7: 10/16/21 06:48 10/13/21 22:46 Labs: Microbiology - Last 24 Hours (Table) 10/13/21 21:18 Urine Culture - Final Urine,Voided Escherichia coli Assessment and Plan Assessment: #1 ESRD on hemodialysis MWF schedule. #2 suspect gastroenteritis #3 hypertension with ESRD #4 metabolic bone disease with ESRD #5 gram-negative UTI on antibiotics Plan: #1 hemodialysis as per outpatient schedule, plan for tomorrow #2 ESRD medications
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
[2021-10-17] MEDS ORDERED: TEMAZEPAM 15 MG CAP PO SCH (21:00)
[2021-10-18] MEDS ORDERED: AMIODARONE 50 MG/ML 3 ML VIAL IV ONE (01:50)
[2021-10-18] MEDS ORDERED: DEXTROSE 5% IN WATER 50 ML BAG ONE (01:50)
[2021-10-18] MEDS ORDERED: EPINEPHrine 10 ML SYRINGE (0.1 MG/ML) ONE (01:50)
[2021-10-18] MEDS ORDERED: DEXTROSE 50% SYRINGE 50 ML IVP ONE (01:50)
[2021-10-18 01:54] LABS: Glucose,Whole Blood 23 mg/dL (75-99)
[2021-10-18] MEDS ORDERED: propofoL 100 ML IV ONE (01:59)
[2021-10-18 02:11] LABS: Glucose,Whole Blood 75 mg/dL (75-99)
[2021-10-18] MEDS ORDERED: CHLORHEXIDINE GLUCONATE 15 ML CUP MUCOUS MEM ONE (02:16)
[2021-10-18 02:26] LABS: Glucose,Whole Blood 74 mg/dL (75-99)
[2021-10-18 02:36] LABS: Anisocytosis Slight; MCH 27.1 pg (25.0-35.0); MCHC 32.3 g/dL (31.0-37.0); MCV 83.9 fL (80.0-100.0); Mean Platelet Volume 9.7; Platelet Count 171 k/uL (150-450); RBC 3.69 m/uL (3.80-5.40)
[2021-10-18 02:48] LABS: African American GFR (CKD) 6 (>60 ml/min/1.73 sqM); Albumin 3.2 g/dL (3.5-5.0); Albumin/Globulin Ratio 0.9; Alkaline Phosphatase 249 U/L (38-126); Anion Gap 25 mmol/L; Bilirubin,Unconjugated 0.2 mg/dL (0.0-1.1); Blood Urea Nitrogen 58 mg/dL (7-17); Calcium 8.7 mg/dL (8.4-10.2); Carbon Dioxide 10 mmol/L (22-30); Chloride 99 mmol/L (98-107); Globulin 3.7 g/dL; Glucose 120 mg/dL (74-99); Magnesium 2.2 mg/dL (1.6-2.3); Non-African American GFR(CKD) 5 (>60 ml/min/1.73 sqM); Potassium 5.5 mmol/L (3.5-5.1); Sodium 134 mmol/L (137-145); Total Bilirubin 1.1 mg/dL (0.2-1.3); Total Protein 6.9 g/dL (6.3-8.2)
--- NOTE | 2021-10-18 02:48 | XR ---
EXAMINATION TYPE: XR chest 1V confirm line [facility] DATE OF EXAM: 10/18/2021 COMPARISON: 10/14/2021 HISTORY: Respiratory failure TECHNIQUE: Single view FINDINGS: Endotracheal tube is 5 cm from the prakash. There is nasogastric tube in the stomach. There is right-sided central venous catheter with tip in the right atrium. There are chest leads. There is no heart failure. There is mild subsegmental atelectasis at the lung bases. There are sternal wires. IMPRESSION: Tubing in good position. No heart failure seen. There is some mild atelectasis at the yenny g bases without significant change.
[2021-10-18 02:55] LABS: ALT 370 U/L (4-34)
[2021-10-18 02:57] LABS: AST 952 U/L (14-36)
[2021-10-18] MEDS: NOREPINEPHRINE 4 MG in SODIUM CHLORIDE 0.9% 250 ML IV SCH ×3 (03:23→23:12)
[2021-10-18 03:46] LABS: Band Neutrophils % 21 %; Lymphocytes # (M) 1.61 k/uL (1.0-4.8); Neutrophils % (M) 68 %; Nucleated Red Blood Cells 1 /100 WBC (0-0); Total Cells Counted 200; WBC 20.1 k/uL (3.8-10.6)
[2021-10-18 03:47] LABS: Target Cells Present
[2021-10-18 03:48] LABS: Polychromasia Present; Toxic Vacuolation Present
[2021-10-18 04:25] LABS: Glucose,Whole Blood 91 mg/dL (75-99)
[2021-10-18 04:31] LABS: ABG HCO3 15 mmol/L (21-25); ABG Oxygen Saturation 99.7 % (94-97); ABG PCO2 35 mmHg (35-45); ABG PH 7.25 (7.35-7.45); ABG PO2 330 mmHg (83-108); ABG TCO2 16 mmol/L (19-24); Allen Test Performed? Yes
--- NOTE | 2021-10-18 04:42 | P.EN ---
CODE BLUE note Please refer to paper charting for details events during code CODE BLUE was called on this patient when the nurse found the patient and I can breathing while taking vital signs patient is not on telemetry Initial rhythm was PA, CPR initiated following ACLS protocol Patient glucose was found to be 23, 1 amp of D50 was placed, 1 epi was given Patient achieved ROSC after 1 round of CPR However patient was not regaining consciousness and she was continuing to have agonal breathing Patient downtime is unknown Patient intubated and moved to the ICU Chest x-ray ordered for ET tube placement Primary team updated RN to update family Case discussed with ICU attending EKG showed right bundle branch block unchanged from before Vital signs stable with blood pressure in the 170s systolic, heart rate was around 110 Patient started on IV fluid hydration
[2021-10-18] MEDS: SODIUM CHLORIDE 0.9% 1,000 ML IV SCH ×2 (05:36→18:25)
[2021-10-18 05:43] LABS: Glucose,Whole Blood 119 mg/dL (75-99)
[2021-10-18 06:12] LABS: ALT 511 U/L (4-34); African American GFR (CKD) 6 (>60 ml/min/1.73 sqM); Albumin 3.1 g/dL (3.5-5.0); Albumin/Globulin Ratio 0.8; Alkaline Phosphatase 237 U/L (38-126); Anion Gap 22 mmol/L; Blood Urea Nitrogen 61 mg/dL (7-17); Calcium 8.3 mg/dL (8.4-10.2); Carbon Dioxide 13 mmol/L (22-30); Chloride 101 mmol/L (98-107); Globulin 3.7 g/dL; Glucose 113 mg/dL (74-99); Non-African American GFR(CKD) 5 (>60 ml/min/1.73 sqM); Potassium 5.8 mmol/L (3.5-5.1); Sodium 136 mmol/L (137-145); Total Protein 6.8 g/dL (6.3-8.2)
[2021-10-18 06:39] LABS: AST 1393 U/L (14-36)
[2021-10-18 06:45] LABS: Basophils % (A) 0 %; Eosinophils % (A) 0 %; HCT 29.3 % (34.0-46.0); Lymphocytes # (A) 0.7 k/uL (1.0-4.8); Lymphocytes % (A) 3 %; MCHC 34.3 g/dL (31.0-37.0); MCV 81.8 fL (80.0-100.0); Mean Platelet Volume 10.3; Monocytes # (A) 0.6 k/uL (0-1.0); Monocytes % (A) 3 %; Neutrophils # (A) 19.3 k/uL (1.3-7.7); Neutrophils % (A) 93 %; Platelet Count 148 k/uL (150-450); RBC 3.58 m/uL (3.80-5.40); WBC 20.8 k/uL (3.8-10.6)
[2021-10-18] MEDS: CALCIUM ACETATE 667 MG TAB PO SCH ×2 (08:01→16:25)
[2021-10-18 08:53] LABS: Glucose,Whole Blood 346 mg/dL (75-99)
[2021-10-18] MEDS: TAMSULOSIN 0.4 MG CAP.ER.24H PO SCH (08:59)
[2021-10-18] MEDS: METOPROLOL SUCCINATE (ER) 100 MG TAB.ER.24H PO SCH (09:00)
[2021-10-18] MEDS: hydrALAZINE HCL 50 MG TAB PO SCH ×3 (09:00→20:31)
[2021-10-18] MEDS: DICYCLOMINE 20 MG TAB PO SCH ×4 (09:00→20:39)
[2021-10-18] MEDS: DULoxetine HCL 30 MG CAPSULE.DR PO SCH (09:00)
[2021-10-18] MEDS: LOPERAMIDE 2 MG CAP PO SCH ×4 (09:00→20:39)
[2021-10-18] MEDS: LOSARTAN 50 MG TAB PO SCH ×2 (09:00→20:30)
[2021-10-18] MEDS: amLODIPine 5 MG TAB PO SCH ×2 (09:00→20:30)
[2021-10-18] MEDS: PREGABALIN 75 MG CAP PO SCH ×2 (09:00→20:39)
[2021-10-18] MEDS: FOLIC ACID-VIT B COMPLEX-VIT C 1 CAP PO SCH (09:00)
--- NOTE | 2021-10-18 09:19 | PN ---
PROGRESS NOTE DATE OF SERVICE: 10/17/2021 REASON FOR FOLLOWUP: Urinary tract infection. INTERVAL HISTORY: Patient is afebrile. The patient is currently breathing comfortably. The patient denies having any chest pain, shortness of breath or cough. Abdominal pain is currently controlled. No vomiting or diarrhea. EXAMINATION: Her blood pressure is 119/70 with a pulse of 68, temperature of 99.8. She is 96% on room air. General description is a middle-aged female lying in bed in no distress. Respiratory system: Unlabored breathing, clear to auscultation anteriorly. Heart S1, S2. Regular rate and rhythm. Abdomen soft, no tenderness. LABS: Hemoglobin is 10.9, white count 8.34. Urine with an E coli that is sensitive to the Levaquin patient got. DIAGNOSTIC IMPRESSION AND PLAN: Patient with fever concerning for an E coli urinary tract infection. Patient is covered with Levaquin that will be continued while monitoring clinical course closely. Continue supportive care. MMODL / IJN: [id number] /
[2021-10-18] MEDS: CLOPIDOGREL 75 MG TAB PO SCH (09:52)
[2021-10-18] MEDS: PANTOPRAZOLE 40 MG/10 ML VIAL IVP SCH (09:55)
[2021-10-18] MEDS: HEPARIN SODIUM,PORCINE/PF 5,000 UNIT/0.5 ML SYRINGE SQ SCH ×2 (09:55→23:59)
[2021-10-18] MEDS: CHOLESTYRAMINE (WITH SUGAR) 4 GM PACKET PO SCH ×2 (09:58→16:25)
--- NOTE | 2021-10-18 10:07 | P.PN ---
Progress Note - Text Progress Note Date: 10/18/21 Patient was seen yesterday for psych consult for capacity as patient was refusing meds and treatment. She had an event last night medically which led to decompensation and had CPR and was eventually intubated and transferred to ICU last night. Once patient is extubated please contact psych [facility] for continued follow up and med mgt. Will follow along peripherally for now.
[2021-10-18] MEDS: LEVOFLOXACIN 500MG-D5W PMX 500 MG in DEXTROSE/WATER 1 100ML.BAG IVPB SCH (10:09)
[2021-10-18 11:34] LABS: Glucose,Whole Blood 305 mg/dL (75-99)
--- NOTE | 2021-10-18 12:19 | P.PN ---
Subjective Progress Note Date: 10/18/21 Follow-up for ESRD. Transferred to ICU last night after cardiopulmonary arrest. On Going dialysis tolerating well on minimal levo fed. Objective - Vital Signs Vital signs: Vital Signs Temp 98.7 F 10/18/21 08:00 Pulse 65 10/18/21 11:00 Resp 17 10/18/21 11:00 BP 131/71 10/18/21 11:00 Pulse Ox 99 10/18/21 11:00 Intake & Output 10/17/21 10/18/21 10/18/21 18:59 06:59 18:59 Intake Total 2385.004 626.258 Output Total 0 0 Balance 2385.004 626.258 Intake: IV 2300 375 Sodium Chloride 0.9% 1, 2300 375 000 ml @ 75 mls/hr IV . [id number] [facility] Rx#:[id number] Intake, IV Titration 85.004 251.258 Amount Norepinephrine 4 mg In 85.004 251.258 Sodium Chloride 0.9% 250 ml @ 0.05 MCG/KG/MIN 14. 69 mls/hr IV .[id number] [facility] Rx#:[id number] Oral 0 Output: Urine 0 0 Other: Voiding Method Bedside Commode # Voids 0 1 # Bowel Movements 0 - Exam No acute distress. S1-S2 heard Lungs clear No edema - Labs CBC & Chem 7: 10/18/21 05:23 10/18/21 05:23 Labs: Abnormal Lab Results - Last 24 Hours (Table) 10/18/21 10/18/21 10/18/21 Range/Units 01:51 02:00 02:00 WBC (3.8-10.6) k/uL RBC (3.80-5.40) m/uL Hgb (11.4-16.0) gm/dL Hct (34.0-46.0) % RDW (11.5-15.5) % Plt Count (150-450) k/uL Neutrophils # (1.3-7.7) k/uL Neutrophils # (Manual) (1.3-7.7) k/uL Lymphocytes # (1.0-4.8) k/uL Nucleated RBCs (0-0) /100 WBC ABG pH (7.35-7.45) ABG pO2 (83-108) mmHg ABG HCO3 (21-25) mmol/L ABG Total CO2 (19-24) mmol/L ABG O2 Saturation (94-97) % Sodium 134 L (137-145) mmol/L Potassium 5.5 H (3.5-5.1) mmol/L Carbon Dioxide 10 L (22-30) mmol/L BUN 58 H (7-17) mg/dL Creatinine 7.97 H* (0.52-1.04) mg/dL Glucose 120 H (74-99) mg/dL POC Glucose (mg/dL) 23 L (75-99) mg/dL Plasma Lactic Acid Homer 10.6 H* (0.7-2.0) mmol/L Calcium (8.4-10.2) mg/dL AST 952 H (14-36) U/L ALT 370 H (4-34) U/L Alkaline Phosphatase 249 H (38-126) U/L Troponin I (0.000-0.034) ng/mL Albumin 3.2 L (3.5-5.0) g/dL Procalcitonin (0.02-0.09) ng/mL 10/18/21 10/18/21 10/18/21 Range/Units 02:00 02:00 02:00 WBC 20.1 H (3.8-10.6) k/uL RBC 3.69 L (3.80-5.40) m/uL Hgb 10.0 L (11.4-16.0) gm/dL Hct 31.0 L (34.0-46.0) % RDW 16.0 H (11.5-15.5) % Plt Count (150-450) k/uL Neutrophils # (1.3-7.7) k/uL Neutrophils # (Manual) 17.80 H (1.3-7.7) k/uL Lymphocytes # (1.0-4.8) k/uL Nucleated RBCs 1 H (0-0) /100 WBC ABG pH (7.35-7.45) ABG pO2 (83-108) mmHg ABG HCO3 (21-25) mmol/L ABG Total CO2 (19-24) mmol/L ABG O2 Saturation (94-97) % Sodium (137-145) mmol/L Potassium (3.5-5.1) mmol/L Carbon Dioxide (22-30) mmol/L BUN (7-17) mg/dL Creatinine (0.52-1.04) mg/dL Glucose (74-99) mg/dL POC Glucose (mg/dL) (75-99) mg/dL Plasma Lactic Acid Homer (0.7-2.0) mmol/L Calcium (8.4-10.2) mg/dL AST (14-36) U/L ALT (4-34) U/L Alkaline Phosphatase (38-126) U/L Troponin I 3.160 H* (0.000-0.034) ng/mL Albumin (3.5-5.0) g/dL Procalcitonin 21.20 H (0.02-0.09) ng/mL 10/18/21 10/18/21 10/18/21 Range/Units 02:25 04:29 05:23 WBC 20.8 H (3.8-10.6) k/uL RBC 3.58 L (3.80-5.40) m/uL Hgb 10.0 L (11.4-16.0) gm/dL Hct 29.3 L (34.0-46.0) % RDW 16.0 H (11.5-15.5) % Plt Count 148 L (150-450) k/uL Neutrophils # 19.3 H (1.3-7.7) k/uL Neutrophils # (Manual) (1.3-7.7) k/uL Lymphocytes # 0.7 L (1.0-4.8) k/uL Nucleated RBCs (0-0) /100 WBC ABG pH 7.25 L (7.35-7.45) ABG pO2 330 H (83-108) mmHg ABG HCO3 15 L (21-25) mmol/L ABG Total CO2 16 L (19-24) mmol/L ABG O2 Saturation 99.7 H (94-97) % Sodium (137-145) mmol/L Potassium (3.5-5.1) mmol/L Carbon Dioxide (22-30) mmol/L BUN (7-17) mg/dL Creatinine (0.52-1.04) mg/dL Glucose (74-99) mg/dL POC Glucose (mg/dL) 74 L (75-99) mg/dL Plasma Lactic Acid Homer (0.7-2.0) mmol/L Calcium (8.4-10.2) mg/dL AST (14-36) U/L ALT (4-34) U/L Alkaline Phosphatase (38-126) U/L Troponin I (0.000-0.034) ng/mL Albumin (3.5-5.0) g/dL Procalcitonin (0.02-0.09) ng/mL 10/18/21 10/18/21 10/18/21 Range/Units 05:23 05:23 05:23 WBC (3.8-10.6) k/uL RBC (3.80-5.40) m/uL Hgb (11.4-16.0) gm/dL Hct (34.0-46.0) % RDW (11.5-15.5) % Plt Count (150-450) k/uL Neutrophils # (1.3-7.7) k/uL Neutrophils # (Manual) (1.3-7.7) k/uL Lymphocytes # (1.0-4.8) k/uL Nucleated RBCs (0-0) /100 WBC ABG pH (7.35-7.45) ABG pO2 (83-108) mmHg ABG HCO3 (21-25) mmol/L ABG Total CO2 (19-24) mmol/L ABG O2 Saturation (94-97) % Sodium 136 L (137-145) mmol/L Potassium 5.8 H (3.5-5.1) mmol/L Carbon Dioxide 13 L (22-30) mmol/L BUN 61 H (7-17) mg/dL Creatinine 7.68 H* (0.52-1.04) mg/dL Glucose 113 H (74-99) mg/dL POC Glucose (mg/dL) (75-99) mg/dL Plasma Lactic Acid Homer 6.3 H* (0.7-2.0) mmol/L Calcium 8.3 L (8.4-10.2) mg/dL AST 1393 H (14-36) U/L ALT 511 H (4-34) U/L Alkaline Phosphatase 237 H (38-126) U/L Troponin I 3.220 H* (0.000-0.034) ng/mL Albumin 3.1 L (3.5-5.0) g/dL Procalcitonin (0.02-0.09) ng/mL 10/18/21 10/18/21 10/18/21 Range/Units 05:41 08:52 09:11 WBC (3.8-10.6) k/uL RBC (3.80-5.40) m/uL Hgb (11.4-16.0) gm/dL Hct (34.0-46.0) % RDW (11.5-15.5) % Plt Count (150-450) k/uL Neutrophils # (1.3-7.7) k/uL Neutrophils # (Manual) (1.3-7.7) k/uL Lymphocytes # (1.0-4.8) k/uL Nucleated RBCs (0-0) /100 WBC ABG pH (7.35-7.45) ABG pO2 (83-108) mmHg ABG HCO3 (21-25) mmol/L ABG Total CO2 (19-24) mmol/L ABG O2 Saturation (94-97) % Sodium (137-145) mmol/L Potassium (3.5-5.1) mmol/L Carbon Dioxide (22-30) mmol/L BUN (7-17) mg/dL Creatinine (0.52-1.04) mg/dL Glucose (74-99) mg/dL POC Glucose (mg/dL) 119 H 346 H (75-99) mg/dL Plasma Lactic Acid Homer (0.7-2.0) mmol/L Calcium (8.4-10.2) mg/dL AST (14-36) U/L ALT (4-34) U/L Alkaline Phosphatase (38-126) U/L Troponin I 3.200 H* (0.000-0.034) ng/mL Albumin (3.5-5.0) g/dL Procalcitonin (0.02-0.09) ng/mL 10/18/21 10/18/21 Range/Units 09:11 11:33 WBC (3.8-10.6) k/uL RBC (3.80-5.40) m/uL Hgb (11.4-16.0) gm/dL Hct (34.0-46.0) % RDW (11.5-15.5) % Plt Count (150-450) k/uL Neutrophils # (1.3-7.7) k/uL Neutrophils # (Manual) (1.3-7.7) k/uL Lymphocytes # (1.0-4.8) k/uL Nucleated RBCs (0-0) /100 WBC ABG pH (7.35-7.45) ABG pO2 (83-108) mmHg ABG HCO3 (21-25) mmol/L ABG Total CO2 (19-24) mmol/L ABG O2 Saturation (94-97) % Sodium (137-145) mmol/L Potassium (3.5-5.1) mmol/L Carbon Dioxide (22-30) mmol/L BUN (7-17) mg/dL Creatinine (0.52-1.04) mg/dL Glucose (74-99) mg/dL POC Glucose (mg/dL) 305 H (75-99) mg/dL Plasma Lactic Acid Homer 5.5 H* (0.7-2.0) mmol/L Calcium (8.4-10.2) mg/dL AST (14-36) U/L ALT (4-34) U/L Alkaline Phosphatase (38-126) U/L Troponin I (0.000-0.034) ng/mL Albumin (3.5-5.0) g/dL Procalcitonin (0.02-0.09) ng/mL Microbiology - Last 24 Hours (Table) 10/18/21 03:00 Sputum Culture - Preliminary Sputum Assessment and Plan Assessment: #1 ESRD on hemodialysis MWF schedule. #2 status post cardiopulmonary arrest #3 hypertension with ESRD #4 metabolic bone disease with ESRD #5 gram-negative UTI on antibiotics Plan: #1 hemodialysis today., Next treatment on Thursday. #2 ESRD medications #3 ICU care
[2021-10-18] MEDS: INSULIN ASPART (NovoLOG) 100 UNIT/ML VIAL SQ SCH ×4 (12:24→23:56)
[2021-10-18] MEDS ORDERED: CISATRACURIUM 2 MG/ML 5 ML VIAL IV ONE (12:29)
[2021-10-18] MEDS: IPRATROPIUM-ALBUTEROL 3 ML NEB INHALATION SCH ×4 (12:58→23:58)
--- NOTE | 2021-10-18 13:14 | PCN ---
PROCEDURE NOTE PULMONARY/CRITICAL CARE PROCEDURE NOTE: PLACEMENT OF LEFT SUBCLAVIAN TRIPLE-LUMEN CATHETER: PREOPERATIVE DIAGNOSIS: Administration of fluids and pressors. POSTOPERATIVE DIAGNOSIS: Administration of fluids and pressors. OPERATORS: 1. Dr. Orozco. 2. Dr. North. PROCEDURE DESCRIPTION: A time-out was completed verifying correct patient, procedure, site, positioning, and implant(s) or special equipment if applicable. There was informed consent and universal timeout. The patient was placed in a dependent position appropriate for triple lumen catheter placement based on the vein to be cannulated. The patient's left shoulder was prepped and draped in sterile fashion. 1% Lidocaine was used to anesthetize the surrounding skin area. A triple lumen 9F Cordis catheter was introduced into the left subclavian vein using Seldinger technique. The catheter was threaded smoothly over the guide wire and appropriate blood return was obtained. There was good blood return from all 3 ports. Each lumen of the catheter was evacuated of air and flushed with sterile saline. The catheter was then sutured in place to the skin and a sterile dressing applied. Perfusion to the extremity distal to the point of catheter insertion was checked and found to be adequate. Chest x-ray was ordered to check placement and rule out pneumothorax. MMODL / IJN: [id number] /
--- NOTE | 2021-10-18 13:44 | XR ---
EXAMINATION TYPE: XR chest 1V portable DATE OF EXAM: 10/18/2021 Comparison: 10/18/2021 Clinical History: 51-year-old female central line placement Findings: ET tube appears high at the level of the thoracic inlet. Recommend advancement by 2.5 cm and reassess ment at follow-up. NG tube courses below the diaphragm. Right-sided double-lumen hemodialysis cathete r tips at the lower right atrium. Heart borderline enlarged. Mild interstitial prominence. Patchy ret rocardiac opacity. Left CVC tip at the cavoatrial junction. Surgical clips along the medial aspect of the left arm. Median sternotomy wires. Post-CABG clips in the mediastinum. Impression: 1. Left CVC tip at the cavoatrial junction. 2. The ET tube appears to have been pulled back. The tip is at the thoracic inlet. Recommend advancem ent by 2.5 cm and reassessment at follow-up. 3. Patchy retrocardiac atelectasis and/or infiltrate stable to slightly increased.
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
[2021-10-18 16:23] LABS: Glucose,Whole Blood 86 mg/dL (75-99)
--- NOTE | 2021-10-18 16:27 | P.PN ---
Subjective Progress Note Date: 10/18/21 CHIEF COMPLAINT: Abdominal pain HISTORY OF PRESENT ILLNESS: The patient is a 51-year-old female with chronic abdominal pain. This morning she CODED and now transferred to the intensive care unit. She is mechanically ventilated. BSG has been low 40s to 80s. ROS: No fevers or chills. No new chest pain. PHYSICAL EXAM: VITAL SIGNS: Reviewed CONSTITUTIONAL: Well developed and in no acute distress. EYES: Conjuctivae without sclera icterus. Extraocular movements grossly intact. HEAD, EARS, NOSE, THROAT: Moist buccal mucosa. Head is atraumatic, normocephalic. Hears conversational speech. No nasal drainage. NECK: No thyroidomegaly. RESPIRATORY: Non-labored respirations and equal bilateral excursions. On mechanical ventilation CARDIOVASCULAR: 2+ radial pulses. ABDOMEN: No peritonitis. MUSCULOSKELETAL: No gross deformity of the lower extremities noted. No clubbing. No cyanosis. SKIN: Good skin turgor. Well perfused. NEUROLOGIC: Cranial nerves I through XII grossly intact. No focal or lateralizing signs. CLINICAL LABS: Reviewed.Troponin with new elevation 0.02 to 3.2+ RADIOLOGY: Chest xray with atelectasis and new ET tube. ASSESSMENT: 1. Abdominal pain 2. ESRD, dialysis dependent 3. Acute cardiopulmonary arrest PLAN: 1. Management for new cardiopulmonary arrest. 2. NPO status Objective - Vital Signs Vital signs: Vital Signs Temp 98.4 F 10/18/21 16:00 Pulse 61 10/18/21 16:00 Resp 18 10/18/21 16:00 BP 120/62 10/18/21 16:00 Pulse Ox 98 10/18/21 16:00 Intake & Output 10/17/21 10/18/21 10/18/21 18:59 06:59 18:59 Intake Total 2385.004 1122.803 Output Total 0 0 Balance 2385.004 1122.803 Weight 77.111 kg Intake: IV 2300 750 Sodium Chloride 0.9% 1, 2300 750 000 ml @ 75 mls/hr IV . [id number] [facility] Rx#:[id number] Intake, IV Titration 85.004 372.803 Amount Norepinephrine 4 mg In 85.004 272.803 Sodium Chloride 0.9% 250 ml @ 0.05 MCG/KG/MIN 14. 69 mls/hr IV .[id number] [facility] Rx#:[id number] propofoL 1,000 mg In 100 Empty Bag 1 bag @ Titrate IV .Q0M [facility] Rx#: [id number] Oral 0 Output: Urine 0 0 Other: Voiding Method Bedside Commode # Voids 0 1 # Bowel Movements 0 - Labs CBC & Chem 7: 10/18/21 05:23 10/18/21 05:23 Labs: Abnormal Lab Results - Last 24 Hours (Table) 10/18/21 10/18/21 10/18/21 Range/Units 01:51 02:00 02:00 WBC (3.8-10.6) k/uL RBC (3.80-5.40) m/uL Hgb (11.4-16.0) gm/dL Hct (34.0-46.0) % RDW (11.5-15.5) % Plt Count (150-450) k/uL Neutrophils # (1.3-7.7) k/uL Neutrophils # (Manual) (1.3-7.7) k/uL Lymphocytes # (1.0-4.8) k/uL Nucleated RBCs (0-0) /100 WBC ABG pH (7.35-7.45) ABG pO2 (83-108) mmHg ABG HCO3 (21-25) mmol/L ABG Total CO2 (19-24) mmol/L ABG O2 Saturation (94-97) % Sodium 134 L (137-145) mmol/L Potassium 5.5 H (3.5-5.1) mmol/L Carbon Dioxide 10 L (22-30) mmol/L BUN 58 H (7-17) mg/dL Creatinine 7.97 H* (0.52-1.04) mg/dL Glucose 120 H (74-99) mg/dL POC Glucose (mg/dL) 23 L (75-99) mg/dL Plasma Lactic Acid Homer 10.6 H* (0.7-2.0) mmol/L Calcium (8.4-10.2) mg/dL AST 952 H (14-36) U/L ALT 370 H (4-34) U/L Alkaline Phosphatase 249 H (38-126) U/L Troponin I (0.000-0.034) ng/mL Albumin 3.2 L (3.5-5.0) g/dL Procalcitonin (0.02-0.09) ng/mL 10/18/21 10/18/21 10/18/21 Range/Units 02:00 02:00 02:00 WBC 20.1 H (3.8-10.6) k/uL RBC 3.69 L (3.80-5.40) m/uL Hgb 10.0 L (11.4-16.0) gm/dL Hct 31.0 L (34.0-46.0) % RDW 16.0 H (11.5-15.5) % Plt Count (150-450) k/uL Neutrophils # (1.3-7.7) k/uL Neutrophils # (Manual) 17.80 H (1.3-7.7) k/uL Lymphocytes # (1.0-4.8) k/uL Nucleated RBCs 1 H (0-0) /100 WBC ABG pH (7.35-7.45) ABG pO2 (83-108) mmHg ABG HCO3 (21-25) mmol/L ABG Total CO2 (19-24) mmol/L ABG O2 Saturation (94-97) % Sodium (137-145) mmol/L Potassium (3.5-5.1) mmol/L Carbon Dioxide (22-30) mmol/L BUN (7-17) mg/dL Creatinine (0.52-1.04) mg/dL Glucose (74-99) mg/dL POC Glucose (mg/dL) (75-99) mg/dL Plasma Lactic Acid Homer (0.7-2.0) mmol/L Calcium (8.4-10.2) mg/dL AST (14-36) U/L ALT (4-34) U/L Alkaline Phosphatase (38-126) U/L Troponin I 3.160 H* (0.000-0.034) ng/mL Albumin (3.5-5.0) g/dL Procalcitonin 21.20 H (0.02-0.09) ng/mL 10/18/21 10/18/21 10/18/21 Range/Units 02:25 04:29 05:23 WBC 20.8 H (3.8-10.6) k/uL RBC 3.58 L (3.80-5.40) m/uL Hgb 10.0 L (11.4-16.0) gm/dL Hct 29.3 L (34.0-46.0) % RDW 16.0 H (11.5-15.5) % Plt Count 148 L (150-450) k/uL Neutrophils # 19.3 H (1.3-7.7) k/uL Neutrophils # (Manual) (1.3-7.7) k/uL Lymphocytes # 0.7 L (1.0-4.8) k/uL Nucleated RBCs (0-0) /100 WBC ABG pH 7.25 L (7.35-7.45) ABG pO2 330 H (83-108) mmHg ABG HCO3 15 L (21-25) mmol/L ABG Total CO2 16 L (19-24) mmol/L ABG O2 Saturation 99.7 H (94-97) % Sodium (137-145) mmol/L Potassium (3.5-5.1) mmol/L Carbon Dioxide (22-30) mmol/L BUN (7-17) mg/dL Creatinine (0.52-1.04) mg/dL Glucose (74-99) mg/dL POC Glucose (mg/dL) 74 L (75-99) mg/dL Plasma Lactic Acid Homer (0.7-2.0) mmol/L Calcium (8.4-10.2) mg/dL AST (14-36) U/L ALT (4-34) U/L Alkaline Phosphatase (38-126) U/L Troponin I (0.000-0.034) ng/mL Albumin (3.5-5.0) g/dL Procalcitonin (0.02-0.09) ng/mL 10/18/21 10/18/21 10/18/21 Range/Units 05:23 05:23 05:23 WBC (3.8-10.6) k/uL RBC (3.80-5.40) m/uL Hgb (11.4-16.0) gm/dL Hct (34.0-46.0) % RDW (11.5-15.5) % Plt Count (150-450) k/uL Neutrophils # (1.3-7.7) k/uL Neutrophils # (Manual) (1.3-7.7) k/uL Lymphocytes # (1.0-4.8) k/uL Nucleated RBCs (0-0) /100 WBC ABG pH (7.35-7.45) ABG pO2 (83-108) mmHg ABG HCO3 (21-25) mmol/L ABG Total CO2 (19-24) mmol/L ABG O2 Saturation (94-97) % Sodium 136 L (137-145) mmol/L Potassium 5.8 H (3.5-5.1) mmol/L Carbon Dioxide 13 L (22-30) mmol/L BUN 61 H (7-17) mg/dL Creatinine 7.68 H* (0.52-1.04) mg/dL Glucose 113 H (74-99) mg/dL POC Glucose (mg/dL) (75-99) mg/dL Plasma Lactic Acid Homer 6.3 H* (0.7-2.0) mmol/L Calcium 8.3 L (8.4-10.2) mg/dL AST 1393 H (14-36) U/L ALT 511 H (4-34) U/L Alkaline Phosphatase 237 H (38-126) U/L Troponin I 3.220 H* (0.000-0.034) ng/mL Albumin 3.1 L (3.5-5.0) g/dL Procalcitonin (0.02-0.09) ng/mL 10/18/21 10/18/21 10/18/21 Range/Units 05:41 08:52 09:11 WBC (3.8-10.6) k/uL RBC (3.80-5.40) m/uL Hgb (11.4-16.0) gm/dL Hct (34.0-46.0) % RDW (11.5-15.5) % Plt Count (150-450) k/uL Neutrophils # (1.3-7.7) k/uL Neutrophils # (Manual) (1.3-7.7) k/uL Lymphocytes # (1.0-4.8) k/uL Nucleated RBCs (0-0) /100 WBC ABG pH (7.35-7.45) ABG pO2 (83-108) mmHg ABG HCO3 (21-25) mmol/L ABG Total CO2 (19-24) mmol/L ABG O2 Saturation (94-97) % Sodium (137-145) mmol/L Potassium (3.5-5.1) mmol/L Carbon Dioxide (22-30) mmol/L BUN (7-17) mg/dL Creatinine (0.52-1.04) mg/dL Glucose (74-99) mg/dL POC Glucose (mg/dL) 119 H 346 H (75-99) mg/dL Plasma Lactic Acid Homer (0.7-2.0) mmol/L Calcium (8.4-10.2) mg/dL AST (14-36) U/L ALT (4-34) U/L Alkaline Phosphatase (38-126) U/L Troponin I 3.200 H* (0.000-0.034) ng/mL Albumin (3.5-5.0) g/dL Procalcitonin (0.02-0.09) ng/mL 10/18/21 10/18/21 Range/Units 09:11 11:33 WBC (3.8-10.6) k/uL RBC (3.80-5.40) m/uL Hgb (11.4-16.0) gm/dL Hct (34.0-46.0) % RDW (11.5-15.5) % Plt Count (150-450) k/uL Neutrophils # (1.3-7.7) k/uL Neutrophils # (Manual) (1.3-7.7) k/uL Lymphocytes # (1.0-4.8) k/uL Nucleated RBCs (0-0) /100 WBC ABG pH (7.35-7.45) ABG pO2 (83-108) mmHg ABG HCO3 (21-25) mmol/L ABG Total CO2 (19-24) mmol/L ABG O2 Saturation (94-97) % Sodium (137-145) mmol/L Potassium (3.5-5.1) mmol/L Carbon Dioxide (22-30) mmol/L BUN (7-17) mg/dL Creatinine (0.52-1.04) mg/dL Glucose (74-99) mg/dL POC Glucose (mg/dL) 305 H (75-99) mg/dL Plasma Lactic Acid Homer 5.5 H* (0.7-2.0) mmol/L Calcium (8.4-10.2) mg/dL AST (14-36) U/L ALT (4-34) U/L Alkaline Phosphatase (38-126) U/L Troponin I (0.000-0.034) ng/mL Albumin (3.5-5.0) g/dL Procalcitonin (0.02-0.09) ng/mL Microbiology - Last 24 Hours (Table) 10/18/21 03:00 Gram Stain - Preliminary Sputum Sputum Culture - Preliminary Assessment and Plan (1) Abdominal aortic aneurysm (AAA) Current Visit: No Status: Acute Code(s): I71.4 - ABDOMINAL AORTIC ANEURYSM, WITHOUT RUPTURE SNOMED Code(s): 938104762 (2) Abdominal pain Current Visit: No Status: Acute Code(s): R10.9 - UNSPECIFIED ABDOMINAL PAIN SNOMED Code(s): 80868693 (3) ESRD (end stage renal disease) on dialysis Current Visit: No Status: Acute Code(s): N18.6 - END STAGE RENAL DISEASE; Z99.2 - DEPENDENCE ON RENAL DIALYSIS SNOMED Code(s): 795106032 (4) Cardiopulmonary arrest with successful resuscitation Current Visit: Yes Status: Acute Code(s): I46.9 - CARDIAC ARREST, CAUSE UNSPECIFIED SNOMED Code(s): 702866643
--- NOTE | 2021-10-18 17:15 | PN ---
PROGRESS NOTE DATE OF SERVICE: 10/18/2021 REASON FOR FOLLOWUP: E coli urinary tract infection. INTERVAL HISTORY: Patient did have a cardiac arrest this morning. Apparently the patient had low blood sugar of 20. The patient was resuscitated and subsequently has been admitted to the ICU, currently on the vent. The patient on low-dose pressor support and is currently being weaned off. No significant purulent secretions through the ET sputum has been collected. No other changes reported by the nursing staff. PHYSICAL EXAMINATION: Blood pressure 120/62 with a pulse of 76, temperature 98.4. She is 98% on 50% FiO2. General description is a middle-aged female lying in bed in no distress. Respiratory system: Unlabored breathing, decreased breath sounds at the base. No wheeze. Heart S1, S2. Regular rate and rhythm. Abdomen soft, no tenderness. LABS: Lactate is 5.5, white count 20.8. DIAGNOSTIC IMPRESSION AND PLAN: Patient with Escherichia coli urinary tract infection in this patient with a cardiac arrest and was having some abdominal pain with elevated lactic acid. Antibiotic will be broadened to Azactam and Flagyl because of her CEPHALEXIN ALLERGY and clinical course will be monitored closely. Continue with supportive care. MMODL / IJN: [id number] /
[2021-10-18] MEDS ORDERED: AZTREONAM 1 GM in SODIUM CHLORIDE 0.9% 50 ML IVPB STA (20:03)
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
[2021-10-18 20:29] LABS: Glucose,Whole Blood 234 mg/dL (75-99)
[2021-10-18] MEDS: CHLORHEXIDINE GLUCONATE 15 ML CUP MUCOUS MEM SCH (23:12)
[2021-10-18 23:57] LABS: Glucose,Whole Blood 93 mg/dL (75-99)
[2021-10-19 03:55] LABS: Glucose,Whole Blood 97 mg/dL (75-99)
[2021-10-19] MEDS: INSULIN ASPART (NovoLOG) 100 UNIT/ML VIAL SQ SCH ×6 (03:59→23:39)
[2021-10-19] MEDS: IPRATROPIUM-ALBUTEROL 3 ML NEB INHALATION SCH ×5 (04:02→20:32)
[2021-10-19] MEDS: SODIUM CHLORIDE 0.9% 1,000 ML IV SCH ×2 (04:35→19:52)
[2021-10-19 04:38] LABS: Anisocytosis Slight; HCT 27.4 % (34.0-46.0); HGB 9.6 gm/dL (11.4-16.0); Mean Platelet Volume 9.6; Platelet Count 172 k/uL (150-450); RBC 3.43 m/uL (3.80-5.40); WBC 14.8 k/uL (3.8-10.6)
[2021-10-19 05:19] LABS: Calcium 8.4 mg/dL (8.4-10.2)
[2021-10-19] MEDS: CALCIUM ACETATE 667 MG TAB PO SCH ×2 (05:46→17:23)
[2021-10-19 05:55] LABS: ABG Base Excess -2.4 mmol/L; ABG HCO3 23 mmol/L (21-25); ABG Oxygen Saturation 98.4 % (94-97); ABG PCO2 43 mmHg (35-45); ABG PH 7.34 (7.35-7.45); ABG PO2 121 mmHg (83-108); ABG TCO2 25 mmol/L (19-24); Allen Test Performed? Yes
--- NOTE | 2021-10-19 07:07 | XR ---
EXAMINATION TYPE: XR chest 1V portable DATE OF EXAM: 10/19/2021 CLINICAL HISTORY: Difficulty breathing progress study. TECHNIQUE: Single AP portable semiupright view of the chest is obtained. COMPARISON: Chest x-ray from one day earlier and older studies FINDINGS: Stable endotracheal and orogastric tubes. Stable left subclavian central venous catheter. Stable large bore right internal jugular dialysis catheter. Overlying sternal wires and mediastinal clips redemonstrated. Stable mild cardiomegaly. Mild intersti tial prominence bilaterally redemonstrated with patchy retrocardiac atelectasis and/or infiltrate aga in seen. Surgical clips proximal left upper extremity redemonstrated. Osseous structures are intact. IMPRESSION: Mild cardiomegaly with Stable left basilar consolidation and/or atelectasis. No significa nt change from one day earlier.
[2021-10-19 07:47] LABS: Glucose,Whole Blood 102 mg/dL (75-99)
[2021-10-19] MEDS: LOSARTAN 50 MG TAB PO SCH ×2 (08:10→19:40)
[2021-10-19] MEDS: hydrALAZINE HCL 50 MG TAB PO SCH ×3 (08:10→19:40)
[2021-10-19] MEDS: METOPROLOL SUCCINATE (ER) 100 MG TAB.ER.24H PO SCH (08:10)
[2021-10-19] MEDS: amLODIPine 5 MG TAB PO SCH ×2 (08:10→19:40)
[2021-10-19] MEDS: TAMSULOSIN 0.4 MG CAP.ER.24H PO SCH (09:14)
[2021-10-19] MEDS: CHLORHEXIDINE GLUCONATE 15 ML CUP MUCOUS MEM SCH ×2 (09:14→20:46)
[2021-10-19] MEDS: HEPARIN SODIUM,PORCINE/PF 5,000 UNIT/0.5 ML SYRINGE SQ SCH ×3 (09:14→23:39)
[2021-10-19] MEDS: CLOPIDOGREL 75 MG TAB PO SCH (09:14)
[2021-10-19] MEDS: PANTOPRAZOLE 40 MG/10 ML VIAL IVP SCH (09:14)
[2021-10-19] MEDS: PREGABALIN 75 MG CAP PO SCH ×2 (09:14→19:40)
--- NOTE | 2021-10-19 09:16 | P.PN ---
Subjective Patient is seen in follow-up for end-stage renal disease. She is maintained on hemodialysis on Thursday schedule. Patient had cardiac arrest on October 18. On low-dose Levophed. Vital signs are stable. General: Intubated. LUNGS: Breath sounds decreased. HEART: Rate and Rhythm are regular. ABDOMEN: Soft, no distention. EXTREMITITES: No edema. Objective - Vital Signs Vital signs: Vital Signs Temp 98.3 F 10/19/21 04:00 Pulse 71 10/19/21 08:30 Resp 18 10/19/21 08:15 BP 102/54 10/19/21 08:15 Pulse Ox 97 10/19/21 08:15 Intake & Output 10/18/21 10/19/21 10/19/21 18:59 06:59 18:59 Intake Total 7920.161 2083.244 272 Output Total 2500 60 0 Balance -2056.883 8487.244 272 Weight 77.11 kg 76.5 kg Intake: IV 975 825 150 Sodium Chloride 0.9% 1, 975 825 150 000 ml @ 75 mls/hr IV . [id number] [facility] Rx#:[id number] Intake, IV Titration 372.803 359.244 Amount Aztreonam 1 gm In Sodium 50 Chloride 0.9% 50 ml @ 16. 67 mls/hr IVPB HS [facility] Rx# :[id number] Norepinephrine 4 mg In 272.803 123.151 Sodium Chloride 0.9% 250 ml @ 0.05 MCG/KG/MIN 14. 69 mls/hr IV .[id number] [facility] Rx#:[id number] propofoL 1,000 mg In 100 186.093 Empty Bag 1 bag @ Titrate IV .Q0M [facility] Rx#: [id number] Tube Feeding 279 62 Other 120 60 Output: Urine 0 60 0 Hemodialysis 2500 Other: Voiding Method Indwelling Catheter - Labs CBC & Chem 7: 10/19/21 03:53 10/19/21 03:53 Labs: Abnormal Lab Results - Last 24 Hours (Table) 10/18/21 10/18/21 10/18/21 Range/Units 02:00 09:11 09:11 WBC (3.8-10.6) k/uL RBC (3.80-5.40) m/uL Hgb (11.4-16.0) gm/dL Hct (34.0-46.0) % RDW (11.5-15.5) % ABG pH (7.35-7.45) ABG pO2 (83-108) mmHg ABG Total CO2 (19-24) mmol/L ABG O2 Saturation (94-97) % Sodium (137-145) mmol/L Carbon Dioxide (22-30) mmol/L BUN (7-17) mg/dL Creatinine (0.52-1.04) mg/dL POC Glucose (mg/dL) (75-99) mg/dL Plasma Lactic Acid Homer 5.5 H* (0.7-2.0) mmol/L Troponin I 3.200 H* (0.000-0.034) ng/mL Procalcitonin 21.20 H (0.02-0.09) ng/mL 10/18/21 10/18/21 10/19/21 Range/Units 11:33 20:27 03:53 WBC 14.8 H (3.8-10.6) k/uL RBC 3.43 L (3.80-5.40) m/uL Hgb 9.6 L (11.4-16.0) gm/dL Hct 27.4 L (34.0-46.0) % RDW 16.0 H (11.5-15.5) % ABG pH (7.35-7.45) ABG pO2 (83-108) mmHg ABG Total CO2 (19-24) mmol/L ABG O2 Saturation (94-97) % Sodium (137-145) mmol/L Carbon Dioxide (22-30) mmol/L BUN (7-17) mg/dL Creatinine (0.52-1.04) mg/dL POC Glucose (mg/dL) 305 H 234 H (75-99) mg/dL Plasma Lactic Acid Homer (0.7-2.0) mmol/L Troponin I (0.000-0.034) ng/mL Procalcitonin (0.02-0.09) ng/mL 10/19/21 10/19/21 10/19/21 Range/Units 03:53 05:51 07:45 WBC (3.8-10.6) k/uL RBC (3.80-5.40) m/uL Hgb (11.4-16.0) gm/dL Hct (34.0-46.0) % RDW (11.5-15.5) % ABG pH 7.34 L (7.35-7.45) ABG pO2 121 H (83-108) mmHg ABG Total CO2 25 H (19-24) mmol/L ABG O2 Saturation 98.4 H (94-97) % Sodium 135 L (137-145) mmol/L Carbon Dioxide 21 L (22-30) mmol/L BUN 40 H (7-17) mg/dL Creatinine 4.94 H (0.52-1.04) mg/dL POC Glucose (mg/dL) 102 H (75-99) mg/dL Plasma Lactic Acid Homer (0.7-2.0) mmol/L Troponin I (0.000-0.034) ng/mL Procalcitonin (0.02-0.09) ng/mL Microbiology - Last 24 Hours (Table) 10/18/21 02:00 Blood Culture Gram Stain - Preliminary Blood Blood Culture - Preliminary Staphylococcus epidermidis 10/18/21 02:00 Blood Culture - Final Blood 10/18/21 03:00 Gram Stain - Preliminary Sputum Sputum Culture - Preliminary Assessment and Plan Plan: Assessment: 1. End-stage renal disease maintained on hemodialysis on Thursday schedule. 2. Ascites. Patient refused paracentesis. 3. Hypertension with chronic kidney disease. On low-dose Levophed now. 4. Nausea vomiting and diarrhea. Possibly gastroenteritis. 5. Chronic kidney disease mineral bone disease. Phosphorus normal. Maintained on PhosLo. 6. AAA. Vascuar surgery following - no interventions planned at this time. 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 7. E. coli UTI on antibiotics. 8. Status post cardiac arrest on October 18. 9. Staph epidermidis bacteremia. ?Contamination. Plan: Hem[facility] Thursday[facility] Receiving tube feeds. Hep-Lock IV fluids.
[2021-10-19] MEDS: DULoxetine HCL 30 MG CAPSULE.DR PO SCH (09:35)
[2021-10-19] MEDS: DICYCLOMINE 20 MG TAB PO SCH ×4 (09:35→19:40)
[2021-10-19] MEDS: LOPERAMIDE 2 MG CAP PO SCH ×4 (09:36→19:41)
[2021-10-19] MEDS: CHOLESTYRAMINE (WITH SUGAR) 4 GM PACKET PO SCH ×2 (09:36→17:23)
[2021-10-19 11:27] LABS: Glucose,Whole Blood 214 mg/dL (75-99)
--- NOTE | 2021-10-19 12:09 | P.PN ---
Subjective Progress Note Date: 10/19/21 Principal diagnosis: Respiratory failure. This is a 51-year-old female patient with a known history of end-stage renal disease receiving hemodialysis Thursday. Has has history of coronary artery disease with previous stent placement and coronary artery bypass grafting, abdominal aortic aneurysm measuring 4.2 cm, factor V deficiency, CVA/TIA, DVT T, diabetes mellitus, hyperlipidemia, hypertension. She had moved here approximate 6 weeks ago from [place]. No primary care provider. She presented to the hospital back on 10/13/2021 with complaints of abdominal discomfort and nausea and vomiting. She had missed some dialysis prior. She has been undergoing workup regarding her symptoms. At 145 this morning of CODE BOBO was called on the patient she was found to be in a cardiac arrest after being found not breathing and she received CPR for approximately 1 minute. She is intubated and transferred to the intensive care unit. He is seen today in consultation. She is currently intubated on mechanical ventilator at assist control mode at a rate of 18, positive on 400, FiO2 50% and a PEEP of 5. Initial blood gases revealed a PaO2 of 330, pCO2 35 and a pH of 7.25 and that was on 100% FiO2. She is sedated on propofol at 30 mcg/mg/m. She is on nore pinephrine at 11 mcg/m. 0.9 normal saline at 75 mL per hour. She is receiving hemodialysis currently. White count 20.8. Hemoglobin 10.0. Platelets 148. Sodium 136. Potassium 5.8. Bicarbonate 13. BUN 61. Creatinine 7.68. Glucose 305. AST 1393. ALT 511. Alk phos 237. Troponins 3.2. Pro-calcitonin 21.2. Up from 0.18 Urine culture positive for E. coli. Sputum culture pending. Chest x-ray reveals patchy retrocardiac atelectasis/infiltrate, stable. She is on antibiotics in the form of Levaquin. Bronchodilators. Heparin for DVT prophylaxis. Progress note dated 10/19/2021. The patient remains on mechanical ventilator. She was intubated yesterday. She is on the volume assist control mode, rate 18, tidal volume 400, FiO2 50%, and a PEEP of 5. Arterial blood gases show pO2 121, pCO2 43, and a pH is 7.34. The FiO2 was reduced to 40%. The patient's on propofol at 35 mcg/kg/m, norepinephrine at 4 mcg/m, saline at 20 mL an hour, and Nepro at 31 mL an hour, which is goal. We will attempt a daily interruption of sedation today, with a spontaneous breathing trial with pressure support of 5, and CPAP of 5. Yesterday, we attempted a R line, both in the right radial site, and right femoral artery site, and was unsuccessful at both sites. White count 14.8, hemoglobin 9.6, hematocrit 27.4, and platelet count is 172,000. Sodium 135, potassium 4, chlorides 102, CO2 21, anion gap 12, BUN 40, creatinine 4.94. Urine culture is positive for Escherichia coli. Blood cultures positive for staph epidermidis. Chest x-ray today, is unchanged, and shows mild cardiomegaly, and stable left basilar consolidation. The patient is currently on aztreonam and Flagyl. Objective - Vital Signs Vital signs: Vital Signs Temp 98.1 F 10/19/21 08:30 Pulse 71 10/19/21 10:45 Resp 18 10/19/21 10:45 BP 100/51 10/19/21 10:45 Pulse Ox 97 10/19/21 10:45 Intake & Output 10/18/21 10/19/21 10/19/21 18:59 06:59 18:59 Intake Total 2879.337 7967.244 502.553 Output Total 2500 60 0 Balance -1006.212 6168.244 502.553 Weight 77.11 kg 76.5 kg Intake: IV 975 825 190 Sodium Chloride 0.9% 1, 975 825 190 000 ml @ 20 mls/hr IV . Q24H [facility] Rx#:[id number] Intake, IV Titration 372.803 359.244 128.553 Amount Aztreonam 1 gm In Sodium 50 Chloride 0.9% 50 ml @ 16. 67 mls/hr IVPB HS [facility] Rx# :[id number] Norepinephrine 4 mg In 272.803 123.151 39.761 Sodium Chloride 0.9% 250 ml @ 0.05 MCG/KG/MIN 14. 69 mls/hr IV .[id number] [facility] Rx#:[id number] propofoL 1,000 mg In 100 186.093 88.792 Empty Bag 1 bag @ Titrate IV .Q0M [facility] Rx#: [id number] Tube Feeding 279 124 Other 120 60 Output: Urine 0 60 0 Hemodialysis 2500 Other: Voiding Method Indwelling Catheter Indwelling Catheter - Exam No acute distress, currently sedated, with an orally placed endotracheal tube and NG tube.. HEENT examination is grossly unremarkable. Neck supple. Full range of motion. No adenopathy thyromegaly or neck vein distention. Cardiovascular examination reveals regular rhythm rate. S1-S2 normal. No S3 or S4. A soft systolic murmur is noted. Heart sounds are distant. Heart rate 71 bpm. Lungs reveal bilateral rhonchi. Breath sounds are equal bilaterally. No crackles. Saturations are 97%. Abdomen soft bowel sounds are heard. No masses or tenderness. Extremities are intact. No cyanosis clubbing or edema. Skin is without rash or lesion. Neurologic examination not be adequately assessed, as the patient is currently sedated with propofol. - Labs CBC & Chem 7: 10/19/21 03:53 10/19/21 03:53 Labs: Abnormal Lab Results - Last 24 Hours (Table) 10/18/21 10/19/21 10/19/21 Range/Units 20:27 03:53 03:53 WBC 14.8 H (3.8-10.6) k/uL RBC 3.43 L (3.80-5.40) m/uL Hgb 9.6 L (11.4-16.0) gm/dL Hct 27.4 L (34.0-46.0) % RDW 16.0 H (11.5-15.5) % ABG pH (7.35-7.45) ABG pO2 (83-108) mmHg ABG Total CO2 (19-24) mmol/L ABG O2 Saturation (94-97) % Sodium 135 L (137-145) mmol/L Carbon Dioxide 21 L (22-30) mmol/L BUN 40 H (7-17) mg/dL Creatinine 4.94 H (0.52-1.04) mg/dL POC Glucose (mg/dL) 234 H (75-99) mg/dL 10/19/21 10/19/21 10/19/21 Range/Units 05:51 07:45 11:25 WBC (3.8-10.6) k/uL RBC (3.80-5.40) m/uL Hgb (11.4-16.0) gm/dL Hct (34.0-46.0) % RDW (11.5-15.5) % ABG pH 7.34 L (7.35-7.45) ABG pO2 121 H (83-108) mmHg ABG Total CO2 25 H (19-24) mmol/L ABG O2 Saturation 98.4 H (94-97) % Sodium (137-145) mmol/L Carbon Dioxide (22-30) mmol/L BUN (7-17) mg/dL Creatinine (0.52-1.04) mg/dL POC Glucose (mg/dL) 102 H 214 H (75-99) mg/dL Microbiology - Last 24 Hours (Table) 10/18/21 02:00 Blood Culture Gram Stain - Preliminary Blood Blood Culture - Preliminary Staphylococcus epidermidis 10/18/21 02:00 Blood Culture - Final Blood 10/18/21 03:00 Gram Stain - Preliminary Sputum Sputum Culture - Preliminary Assessment and Plan Assessment: 1 Acute cardiopulmonary arrest requiring intubation mechanical ventilatory support on 10/18/2021. Required epinephrine times one, 1 round of CPR with return of spontaneous circulation with continued agonal respirations. 2 Acute hypoxemic respiratory failure secondary to above. 3 Acute shock liver. 4 End-stage renal disease on hemodialysis Thursday. 5 History of coronary disease with previous coronary bypass grafting, previous stent placement. 6 Depression being followed by psychiatric services this admission and had been refusing medications and treatment. 7 COPD. 8 Chronic and ongoing tobacco dependence. 9 History of abdominal aortic aneurysm. 10 History of factor V deficiency. 11 History of DVT. 12 Hyperlipidemia. 13 Hypertension. 14 History of cirrhosis. 15 Peripheral vascular disease. 16 History of bipolar disease. 14 Urinary tract infection and dairy to E. coli. Plan: Plan dated 10/19/2021. The patient's FiO2 was cut back to 40%. The patient will have a daily interruption of sedation and a spontaneous breathing trial with pressure support of 5 and CPAP of 5. The patient may be ready for extubation. Yesterday, we attempted a right radial art line unsuccessfully, and a right femoral art line unsuccessfully. If the patient is not extubated, we will attempt an art line today. She does have a left sided triple-lumen catheter that we placed yesterday. Overall prognosis is guarded. We will continue to follow make recommendations where appropriate. Time with Patient: Greater than 30
[2021-10-19] MEDS: FOLIC ACID-VIT B COMPLEX-VIT C 1 CAP PO SCH ×2 (13:30→13:33)
--- NOTE | 2021-10-19 15:53 | P.PN ---
Subjective Progress Note Date: 10/19/21 CHIEF COMPLAINT: Abdominal pain HISTORY OF PRESENT ILLNESS: The patient is a 51-year-old female with chronic abdominal pain. She is intubated. No further reports of abdominal pain. ROS: No fevers or chills. No new chest pain. PHYSICAL EXAM: VITAL SIGNS: Reviewed CONSTITUTIONAL: Well developed and in no acute distress. EYES: Conjuctivae without sclera icterus. Extraocular movements grossly intact. HEAD, EARS, NOSE, THROAT: Moist buccal mucosa. Head is atraumatic, normocephalic. Hears conversational speech. No nasal drainage. NECK: No thyroidomegaly. RESPIRATORY: Non-labored respirations and equal bilateral excursions. On mechanical ventilation CARDIOVASCULAR: 2+ radial pulses. ABDOMEN: No peritonitis. MUSCULOSKELETAL: No gross deformity of the lower extremities noted. No c lubbing. No cyanosis. SKIN: Good skin turgor. Well perfused. NEUROLOGIC: Cranial nerves I through XII grossly intact. No focal or lateralizing signs. CLINICAL LABS: Reviewed. WBC elevated 14.6. Hgb 9.6 anemia ASSESSMENT: 1. Abdominal pain 2. ESRD, dialysis dependent 3. Acute cardiopulmonary arrest PLAN: 1. Continue ICU management 2. May need TPN for prolonged NPO status vs NG feeds. Objective - Vital Signs Vital signs: Vital Signs Temp 97.9 F 10/19/21 12:00 Pulse 70 10/19/21 12:32 Resp 18 10/19/21 12:30 BP 95/51 10/19/21 12:30 Pulse Ox 98 10/19/21 12:30 Intake & Output 10/18/21 10/19/21 10/19/21 18:59 06:59 18:59 Intake Total 2226.146 2793.244 502.553 Output Total 2500 60 0 Balance -5645.710 7505.244 502.553 Weight 77.11 kg 76.5 kg Intake: IV 975 825 190 Sodium Chloride 0.9% 1, 975 825 190 000 ml @ 20 mls/hr IV . Q24H [facility] Rx#:[id number] Intake, IV Titration 372.803 359.244 128.553 Amount Aztreonam 1 gm In Sodium 50 Chloride 0.9% 50 ml @ 16. 67 mls/hr IVPB HS [facility] Rx# :[id number] Norepinephrine 4 mg In 272.803 123.151 39.761 Sodium Chloride 0.9% 250 ml @ 0.05 MCG/KG/MIN 14. 69 mls/hr IV .[id number] [facility] Rx#:[id number] propofoL 1,000 mg In 100 186.093 88.792 Empty Bag 1 bag @ Titrate IV .Q0M [facility] Rx#: [id number] Tube Feeding 279 124 Other 120 60 Output: Urine 0 60 0 Hemodialysis 2500 Other: Voiding Method Indwelling Catheter Indwelling Catheter - Labs CBC & Chem 7: 10/19/21 03:53 10/19/21 03:53 Labs: Abnormal Lab Results - Last 24 Hours (Table) 10/18/21 10/19/21 10/19/21 Range/Units 20:27 03:53 03:53 WBC 14.8 H (3.8-10.6) k/uL RBC 3.43 L (3.80-5.40) m/uL Hgb 9.6 L (11.4-16.0) gm/dL Hct 27.4 L (34.0-46.0) % RDW 16.0 H (11.5-15.5) % ABG pH (7.35-7.45) ABG pO2 (83-108) mmHg ABG Total CO2 (19-24) mmol/L ABG O2 Saturation (94-97) % Sodium 135 L (137-145) mmol/L Carbon Dioxide 21 L (22-30) mmol/L BUN 40 H (7-17) mg/dL Creatinine 4.94 H (0.52-1.04) mg/dL POC Glucose (mg/dL) 234 H (75-99) mg/dL 10/19/21 10/19/21 10/19/21 Range/Units 05:51 07:45 11:25 WBC (3.8-10.6) k/uL RBC (3.80-5.40) m/uL Hgb (11.4-16.0) gm/dL Hct (34.0-46.0) % RDW (11.5-15.5) % ABG pH 7.34 L (7.35-7.45) ABG pO2 121 H (83-108) mmHg ABG Total CO2 25 H (19-24) mmol/L ABG O2 Saturation 98.4 H (94-97) % Sodium (137-145) mmol/L Carbon Dioxide (22-30) mmol/L BUN (7-17) mg/dL Creatinine (0.52-1.04) mg/dL POC Glucose (mg/dL) 102 H 214 H (75-99) mg/dL Microbiology - Last 24 Hours (Table) 10/18/21 02:00 Blood Culture Gram Stain - Preliminary Blood Blood Culture - Preliminary Staphylococcus epidermidis 10/18/21 02:00 Blood Culture - Final Blood 10/18/21 03:00 Gram Stain - Preliminary Sputum Sputum Culture - Preliminary Assessment and Plan (1) Abdominal aortic aneurysm (AAA) Current Visit: No Status: Acute Code(s): I71.4 - ABDOMINAL AORTIC ANEURYSM, WITHOUT RUPTURE SNOMED Code(s): 075467418 (2) Abdominal pain Current Visit: No Status: Acute Code(s): R10.9 - UNSPECIFIED ABDOMINAL PAIN SNOMED Code(s): 68849998 (3) ESRD (end stage renal disease) on dialysis Current Visit: No Status: Acute Code(s): N18.6 - END STAGE RENAL DISEASE; Z99.2 - DEPENDENCE ON RENAL DIALYSIS SNOMED Code(s): 205128542 (4) Cardiopulmonary arrest with successful resuscitation Current Visit: Yes Status: Acute Code(s): I46.9 - CARDIAC ARREST, CAUSE UNSPECIFIED SNOMED Code(s): 435733638
[2021-10-19] MEDS: AZTREONAM 1 GM in SODIUM CHLORIDE 0.9% 50 ML IVPB SCH (15:59)
[2021-10-19] MEDS ORDERED: VANCOMYCIN IV PER PHARMACY 1 EACH MISC MISCELLANE PRN (16:20)
[2021-10-19] MEDS ORDERED: VANCOMYCIN 1,500 MG in SODIUM CHLORIDE 0.9% 250 ML IVPB ONE (17:00)
[2021-10-19 17:21] LABS: Glucose,Whole Blood 150 mg/dL (75-99)
--- NOTE | 2021-10-19 18:02 | PN ---
PROGRESS NOTE DATE OF SERVICE: 10/19/2021 REASON FOR FOLLOWUP: 1. UTI. 2. Bacteremia. INTERVAL HISTORY: Patient is afebrile. Pressors have been weaned off. The patient FiO2 remains to be at 40%. No significant purulent secretions through the ET, diarrhea or any other changes reported by nursing staff. PHYSICAL EXAMINATION: Blood pressure 95/61, pulse of 71, temperature 97.9. She is 98% on 40% FIO2. General description is a middle-aged female intubated on the vent. Respiratory system: Unlabored breathing, decreased breath sounds in the bases. No wheeze. Heart S1, S2. Regular rate and rhythm. Abdomen soft, no tenderness. No guarding and no rigidity. Extremities are no edema of the feet. LABS: Hemoglobin 9.6, white count 14.8. BUN of 40, creatinine 4.94. Blood culture with Staph epi. DIAGNOSTIC IMPRESSION AND PLAN: 1. Patient with acute respiratory failure, multifactorial in this patient who did have a did have an E coli urinary tract infection which was complaining of abdominal pain. Did have covered with Azactam and Flagyl. 2. Patient with positive culture, Staph epi could be contaminant. However, the patient did have dialysis catheter. We will obtain culture peripherally as well as dialysis catheter empirically. Add vancomycin and monitor clinical course closely. MMAMAIRANIL / IJN: [id number] /
[2021-10-19 19:49] LABS: Glucose,Whole Blood 146 mg/dL (75-99)
[2021-10-19] MEDS: metroNIDAZOLE-NS PMX 500 MG in SALINE 1 100ML.BAG IVPB SCH (20:46)
[2021-10-19] MEDS ORDERED: AZTREONAM 1 GM in SODIUM CHLORIDE 0.9% 50 ML IVPB SCH (21:00)
[2021-10-19 23:38] LABS: Glucose,Whole Blood 188 mg/dL (75-99)
[2021-10-20] MEDS: IPRATROPIUM-ALBUTEROL 3 ML NEB INHALATION SCH ×7 (00:49→23:52)
[2021-10-20] MEDS: AZTREONAM 1 GM in SODIUM CHLORIDE 0.9% 50 ML IVPB SCH ×2 (01:15→16:36)
[2021-10-20] MEDS: metroNIDAZOLE-NS PMX 500 MG in SALINE 1 100ML.BAG IVPB SCH ×3 (03:12→20:45)
[2021-10-20 03:30] LABS: Glucose,Whole Blood 157 mg/dL (75-99)
[2021-10-20] MEDS: CALCIUM ACETATE 667 MG TAB PO SCH ×2 (03:32→17:48)
[2021-10-20] MEDS: INSULIN ASPART (NovoLOG) 100 UNIT/ML VIAL SQ SCH ×6 (03:32→23:30)
[2021-10-20 03:55] LABS: Basophils % (A) 0 %; Eosinophils # (A) 0.1 k/uL (0-0.7); Eosinophils % (A) 1 %; HCT 26.2 % (34.0-46.0); HGB 9.1 gm/dL (11.4-16.0); Lymphocytes # (A) 0.7 k/uL (1.0-4.8); Lymphocytes % (A) 7 %; MCH 27.7 pg (25.0-35.0); MCHC 34.7 g/dL (31.0-37.0); MCV 79.9 fL (80.0-100.0); Mean Platelet Volume 9.1; Monocytes # (A) 0.4 k/uL (0-1.0); Monocytes % (A) 4 %; Neutrophils # (A) 8.9 k/uL (1.3-7.7); Neutrophils % (A) 88 %; Platelet Count 172 k/uL (150-450); RBC 3.28 m/uL (3.80-5.40); RDW 15.8 % (11.5-15.5); WBC 10.2 k/uL (3.8-10.6)
[2021-10-20 04:13] LABS: Albumin 2.8 g/dL (3.5-5.0); Calcium 8.2 mg/dL (8.4-10.2); Potassium 4.2 mmol/L (3.5-5.1); Total Bilirubin 0.7 mg/dL (0.2-1.3); Total Protein 6.3 g/dL (6.3-8.2)
[2021-10-20 04:33] LABS: INR 1.1 (<1.2); Prothrombin Time 11.1 sec (9.0-12.0)
[2021-10-20 06:11] LABS: ABG HCO3 23 mmol/L (21-25); ABG Oxygen Saturation 97.4 % (94-97); ABG PCO2 38 mmHg (35-45); ABG PH 7.39 (7.35-7.45); ABG PO2 90 mmHg (83-108); ABG TCO2 24 mmol/L (19-24); Allen Test Performed? Yes
[2021-10-20] MEDS: amLODIPine 5 MG TAB PO SCH ×2 (07:46→20:29)
[2021-10-20] MEDS: DICYCLOMINE 20 MG TAB PO SCH ×4 (07:46→22:02)
[2021-10-20] MEDS: LOSARTAN 50 MG TAB PO SCH ×2 (07:47→20:45)
[2021-10-20] MEDS: METOPROLOL SUCCINATE (ER) 100 MG TAB.ER.24H PO SCH (07:47)
[2021-10-20] MEDS: LOPERAMIDE 2 MG CAP PO SCH ×4 (07:47→22:02)
[2021-10-20] MEDS: hydrALAZINE HCL 50 MG TAB PO SCH ×3 (07:47→22:03)
[2021-10-20] MEDS: FOLIC ACID-VIT B COMPLEX-VIT C 1 CAP PO SCH (07:47)
[2021-10-20] MEDS: CHOLESTYRAMINE (WITH SUGAR) 4 GM PACKET PO SCH ×2 (07:47→17:49)
[2021-10-20 08:16] LABS: Glucose,Whole Blood 155 mg/dL (75-99)
--- NOTE | 2021-10-20 09:32 | P.PN ---
Subjective Patient is seen in follow-up for end-stage renal disease. She is maintained on hemodialysis on Thursday schedule. Patient had cardiac arrest on October 18. On low-dose Levophed. No changes overnight. Vital signs are stable. On low-dose Levophed. General: Intubated. LUNGS: Breath sounds decreased. HEART: Rate and Rhythm are regular. ABDOMEN: Soft, no distention. EXTREMITITES: No edema. Objective - Vital Signs Vital signs: Vital Signs Temp 99.2 F 10/20/21 04:00 Pulse 86 10/20/21 07:00 Resp 18 10/20/21 07:00 BP 112/59 10/20/21 07:00 Pulse Ox 96 10/20/21 07:00 Intake & Output 10/19/21 10/20/21 10/20/21 18:59 06:59 18:59 Intake Total 0368.937 0600.773 51 Output Total 0 0 0 Balance 5863.127 6177.773 51 Weight 77.3 kg Intake: IV 630 240 20 Aztreonam 1 gm In Sodium 50 Chloride 0.9% 50 ml @ 16. 67 mls/hr IVPB HS [facility] Rx# :[id number] Sodium Chloride 0.9% 1, 330 240 20 000 ml @ 20 mls/hr IV . Q24H [facility] Rx#:[id number] Vancomycin 1,500 mg In 250 Sodium Chloride 0.9% 250 ml @ 125 mls/hr IVPB ONCE ONE Rx#:[id number] Intake, IV Titration 250.308 332.773 Amount Aztreonam 1 gm In Sodium 50 Chloride 0.9% 50 ml @ 16. 67 mls/hr IVPB HS [facility] Rx# :[id number] Norepinephrine 4 mg In 74.038 Sodium Chloride 0.9% 250 ml @ 0.05 MCG/KG/MIN 14. 69 mls/hr IV .[id number] [facility] Rx#:[id number] metroNIDAZOLE-NS PMX 500 200 mg In Saline 1 100ml.bag @ 100 mls/hr IVPB Q8HR@ 0400,1200,2000 [facility] Rx#: [id number] propofoL 1,000 mg In 176.270 82.773 Empty Bag 1 bag @ Titrate IV .Q0M [facility] Rx#: [id number] Tube Feeding 372 341 31 Other 60 180 Output: Urine 0 0 0 Other: Voiding Method Indwelling Catheter Indwelling Catheter - Labs CBC & Chem 7: 10/20/21 03:23 10/20/21 03:23 Labs: Abnormal Lab Results - Last 24 Hours (Table) 10/19/21 10/19/21 10/19/21 Range/Units 11:25 17:20 19:47 RBC (3.80-5.40) m/uL Hgb (11.4-16.0) gm/dL Hct (34.0-46.0) % MCV (80.0-100.0) fL RDW (11.5-15.5) % Neutrophils # (1.3-7.7) k/uL Lymphocytes # (1.0-4.8) k/uL ABG O2 Saturation (94-97) % Sodium (137-145) mmol/L Carbon Dioxide (22-30) mmol/L BUN (7-17) mg/dL Creatinine (0.52-1.04) mg/dL Glucose (74-99) mg/dL POC Glucose (mg/dL) 214 H 150 H 146 H (75-99) mg/dL Calcium (8.4-10.2) mg/dL AST (14-36) U/L ALT (4-34) U/L Alkaline Phosphatase (38-126) U/L Albumin (3.5-5.0) g/dL 10/19/21 10/20/21 10/20/21 Range/Units 23:36 03:23 03:23 RBC 3.28 L (3.80-5.40) m/uL Hgb 9.1 L (11.4-16.0) gm/dL Hct 26.2 L (34.0-46.0) % MCV 79.9 L (80.0-100.0) fL RDW 15.8 H (11.5-15.5) % Neutrophils # 8.9 H (1.3-7.7) k/uL Lymphocytes # 0.7 L (1.0-4.8) k/uL ABG O2 Saturation (94-97) % Sodium 133 L (137-145) mmol/L Carbon Dioxide 19 L (22-30) mmol/L BUN 50 H (7-17) mg/dL Creatinine 5.86 H (0.52-1.04) mg/dL Glucose 142 H (74-99) mg/dL POC Glucose (mg/dL) 188 H (75-99) mg/dL Calcium 8.2 L (8.4-10.2) mg/dL AST 565 H (14-36) U/L ALT 510 H (4-34) U/L Alkaline Phosphatase 216 H (38-126) U/L Albumin 2.8 L (3.5-5.0) g/dL 10/20/21 10/20/21 10/20/21 Range/Units 03:28 06:02 08:14 RBC (3.80-5.40) m/uL Hgb (11.4-16.0) gm/dL Hct (34.0-46.0) % MCV (80.0-100.0) fL RDW (11.5-15.5) % Neutrophils # (1.3-7.7) k/uL Lymphocytes # (1.0-4.8) k/uL ABG O2 Saturation 97.4 H (94-97) % Sodium (137-145) mmol/L Carbon Dioxide (22-30) mmol/L BUN (7-17) mg/dL Creatinine (0.52-1.04) mg/dL Glucose (74-99) mg/dL POC Glucose (mg/dL) 157 H 155 H (75-99) mg/dL Calcium (8.4-10.2) mg/dL AST (14-36) U/L ALT (4-34) U/L Alkaline Phosphatase (38-126) U/L Albumin (3.5-5.0) g/dL Microbiology - Last 24 Hours (Table) 10/18/21 03:00 Gram Stain - Final Sputum Sputum Culture - Final 10/18/21 02:00 Blood Culture Gram Stain - Final Blood Blood Culture - Final Staphylococcus epidermidis Assessment and Plan Plan: Assessment: 1. End-stage renal disease maintained on hemodialysis on Thursday schedule. 2. Ascites. Patient refused paracentesis. 3. Hypertension with chronic kidney disease. On low-dose Levophed now. 4. Nausea vomiting and diarrhea. Possibly gastroenteritis. 5. Chronic kidney disease mineral bone disease. Phosphorus normal. Maintained on PhosLo. 6. AAA. Vascuar surgery following - no interventions planned at this time. 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 7. E. coli UTI on antibiotics. 8. Status post cardiac arrest on October 18. 9. Staph epidermidis bacteremia. ?Contamination. Infectious disease following. Plan: Hemodialysis Thursday. Follow-up cultures. Receiving tube feeds. Wean Levophed. Monitor vancomycin levels. Dose to be adjusted for renal function.
[2021-10-20] MEDS: HEPARIN SODIUM,PORCINE/PF 5,000 UNIT/0.5 ML SYRINGE SQ SCH ×3 (09:36→23:30)
[2021-10-20] MEDS: CHLORHEXIDINE GLUCONATE 15 ML CUP MUCOUS MEM SCH ×2 (09:36→20:45)
[2021-10-20] MEDS: TAMSULOSIN 0.4 MG CAP.ER.24H PO SCH (09:37)
[2021-10-20] MEDS: CLOPIDOGREL 75 MG TAB PO SCH (09:37)
[2021-10-20] MEDS: PANTOPRAZOLE 40 MG/10 ML VIAL IVP SCH (09:37)
[2021-10-20] MEDS: PREGABALIN 75 MG CAP PO SCH ×2 (09:37→20:45)
--- NOTE | 2021-10-20 10:55 | XR ---
EXAMINATION TYPE: XR chest 1V portable DATE OF EXAM: 10/20/2021 COMPARISON: 10/19/2021 HISTORY: 51 years Female. STUDY INDICATION GIVEN: Tube placement . TECHNIQUE: AP chest radiograph IMPRESSION: Endotracheal tube, enteric tube, right CVC, left CVC are stable in positions. Interval decrease in left greater than right patchy opacities. Interval slight decrease in mild inter stitial opacities. Stable cardiomegaly. No large effusion or pneumothorax. Sternotomy wires, postsurgical changes in the mediastinum and left chest wall/upper extremity are see n again. The most superior sternotomy wire is fractured similar to prior study. Stable osseous structures.
[2021-10-20] MEDS: DULoxetine HCL 30 MG CAPSULE.DR PO SCH (11:22)
[2021-10-20 11:53] LABS: Glucose,Whole Blood 157 mg/dL (75-99)
--- NOTE | 2021-10-20 12:47 | P.PN ---
Subjective Progress Note Date: 10/20/21 This is a 51-year-old female patient with a known history of end-stage renal disease receiving hemodialysis Thursday. Has has history of coronary artery disease with previous stent placement and coronary artery bypass grafting, abdominal aortic aneurysm measuring 4.2 cm, factor V deficiency, CVA/TIA, DVT T, diabetes mellitus, hyperlipidemia, hypertension. She had moved here approximate 6 weeks ago from [place]. No primary care provider. She presented to the hospital back on 10/13/2021 with complaints of abdominal discomfort and nausea and vomiting. She had missed some dialysis prior. She has been undergoing workup regarding her symptoms. At 145 this morning of ADELA BROUSSARD was called on the patient she was found to be in a cardiac arrest after being found not breathing and she received CPR for approximately 1 minute. She is intubated and transferred to the intensive care unit. He is seen today in consultation. She is currently intubated on mechanical ventilator at assist control mode at a rate of 18, positive on 400, FiO2 50% and a PEEP of 5. Initial blood gases revealed a PaO2 of 330, pCO2 35 and a pH of 7.25 and that was on 100% FiO2. She is sedated on propofol at 30 mcg/mg/m. She is on norepinephrine at 11 mcg/m. 0.9 normal saline at 75 mL per hour. She is receiving hemodialysis currently. White count 20.8. Hemoglobin 10.0. Platelets 148. Sodium 136. Potassium 5.8. Bicarbonate 13. BUN 61. Creatinine 7.68. Glucose 305. AST 1393. ALT 511. Alk phos 237. Troponins 3.2. Pro-calcitonin 21.2. Up from 0.18 Urine culture positive for E. coli. Sputum culture pending. Chest x-ray reveals patchy retrocardiac atelectasis/infiltrate, stable. She is on antibiotics in the form of Levaquin. Bronchodilators. Heparin for DVT prophylaxis. Progress note dated 10/19/2021. The patient remains on mechanical ventilator. She was intubated yesterday. She is on the volume assist control mode, rate 18, tidal volume 400, FiO2 50%, and a PEEP of 5. Arterial blood gases show pO2 121, pCO2 43, and a pH is 7.34. The FiO2 was reduced to 40%. The patient's on propofol at 35 mcg/kg/m, norepinephrine at 4 mcg/m, saline at 20 mL an hour, and Nepro at 31 mL an hour, which is goal. We will attempt a daily interruption of sedation today, with a spontaneous breathing trial with pressure support of 5, and CPAP of 5. Yesterday, we attempted a R line, both in the right radial site, and right femoral artery site, and was unsuccessful at both sites. White count 14.8, hemoglobin 9.6, hematocrit 27.4, and platelet count is 172,000. Sodium 135, potassium 4, chlorides 102, CO2 21, anion gap 12, BUN 40, creatinine 4.94. Urine culture is positive for Escherichia coli. Blood cultures positive for staph epidermidis. Chest x-ray today, is unchanged, and shows mild cardiomegaly, and stable left basilar consolidation. The patient is currently on aztreonam and Flagyl. The patient is seen today 10/20/2021 in follow-up in the intensive care unit. She remains intubated and on mechanical ventilator. Current mode of assist control with a rate of 18, tidal volume 400, FiO2 40% and a PEEP of 5. Morning blood gases revealed a PaO2 of 90, pCO2 38, pH 7.39. She has been slow to wake up. She's been off sedation for several hours without much improvement. She was trialed on pressure support of 5 and a CPAP of 5 50% FiO2 however she was having Ward-Feng respirations. Not following any simple commands. Not making good eye contact. She is recently sedated to continue with daily interruption as sedation and weaning trials tomorrow. She may do better after hemodialysis tomorrow. Chest x-ray continues to revealed bilateral patchy opac ities with mild interstitial edema and sputum culture reveals no growth. Urine culture is positive for E. coli. Blood culture revealed Staphylococcus epidermidis. White count 10.2. Hemoglobin 9.1. Platelets 172. Sodium 133. Potassium 4.2. Bicarb 19. BUN 50. Creatinine 5.86. Glucose 142. AST 565. ALT 510. Alk phos 216. She is continued on DuoNeb inhalations. Antibiotics in the form of vancomycin and aztreonam. Continued on Flagyl. Heparin for DVT prophylaxis. Objective - Vital Signs Vital signs: Vital Signs Temp 99.8 F H 10/20/21 08:00 Pulse 96 10/20/21 11:00 Resp 27 H 10/20/21 11:00 BP 104/74 10/20/21 11:00 Pulse Ox 99 10/20/21 11:00 Intake & Output 10/19/21 10/20/21 10/20/21 18:59 06:59 18:59 Intake Total 9693.255 3870.773 419.356 Output Total 0 0 0 Balance 9965.217 5494.773 419.356 Weight 77.3 kg Intake: IV 630 240 100 Aztreonam 1 gm In Sodium 50 Chloride 0.9% 50 ml @ 16. 67 mls/hr IVPB [facility] Rx# :[id number] Sodium Chloride 0.9% 1, 330 240 100 000 ml @ 20 mls/hr IV . Q24H [facility] Rx#:[id number] Vancomycin 1,500 mg In 250 Sodium Chloride 0.9% 250 ml @ 125 mls/hr IVPB ONCE ONE Rx#:[id number] Intake, IV Titration 250.308 332.773 135.356 Amount Aztreonam 1 gm In Sodium 50 Chloride 0.9% 50 ml @ 16. 67 mls/hr IVPB [facility] Rx# :[id number] Norepinephrine 4 mg In 74.038 92.057 Sodium Chloride 0.9% 250 ml @ 0.05 MCG/KG/MIN 14. 69 mls/hr IV .[id number] [facility] Rx#:[id number] metroNIDAZOLE-NS PMX 500 200 mg In Saline 1 100ml.bag @ 100 mls/hr IVPB Q8HR@ 0400,1200,2000 [facility] Rx#: [id number] propofoL 1,000 mg In 176.270 82.773 43.299 Empty Bag 1 bag @ Titrate IV .Q0M [facility] Rx#: [id number] Tube Feeding 372 341 124 Other 60 180 60 Output: Urine 0 0 0 Other: Voiding Method Indwelling Catheter Indwelling Catheter - Exam GENERAL EXAM: 51-year-old female patient, and intubated on mechanical ventilator, off sedation, slow to respond, not following any simple commands, weak ventilatory effort. HEAD: Normocephalic. EYES: Normal reaction of pupils, equal size. NOSE: Clear with pink turbinates. THROAT: Endotracheal and orogastric tube secured in place. No erythema or exudates. NECK: No masses, no JVD. CHEST: No chest wall deformity. LUNGS: Equal air entry with few scattered rhonchi bilaterally. CVS: S1 and S2 normal with no audible murmur, regular rhythm. ABDOMEN: No hepatosplenomegaly, normal bowel sounds, no guarding or rigidity. SPINE: No scoliosis or deformity SKIN: No rashes CENTRAL NERVOUS SYSTEM: Not following simple commands off sedation, tone is normal in all 4 extremities. EXTREMITIES: There is no peripheral edema. No clubbing, no cyanosis. Peripheral pulses are intact. - Labs CBC & Chem 7: 10/20/21 03:23 10/20/21 03:23 Labs: Abnormal Lab Results - Last 24 Hours (Table) 10/19/21 10/19/21 10/19/21 Range/Units 17:20 19:47 23:36 RBC (3.80-5.40) m/uL Hgb (11.4-16.0) gm/dL Hct (34.0-46.0) % MCV (80.0-100.0) fL RDW (11.5-15.5) % Neutrophils # (1.3-7.7) k/uL Lymphocytes # (1.0-4.8) k/uL ABG O2 Saturation (94-97) % Sodium (137-145) mmol/L Carbon Dioxide (22-30) mmol/L BUN (7-17) mg/dL Creatinine (0.52-1.04) mg/dL Glucose (74-99) mg/dL POC Glucose (mg/dL) 150 H 146 H 188 H (75-99) mg/dL Calcium (8.4-10.2) mg/dL AST (14-36) U/L ALT (4-34) U/L Alkaline Phosphatase (38-126) U/L Albumin (3.5-5.0) g/dL 10/20/21 10/20/21 10/20/21 Range/Units 03:23 03:23 03:28 RBC 3.28 L (3.80-5.40) m/uL Hgb 9.1 L (11.4-16.0) gm/dL Hct 26.2 L (34.0-46.0) % MCV 79.9 L (80.0-100.0) fL RDW 15.8 H (11.5-15.5) % Neutrophils # 8.9 H (1.3-7.7) k/uL Lymphocytes # 0.7 L (1.0-4.8) k/uL ABG O2 Saturation (94-97) % Sodium 133 L (137-145) mmol/L Carbon Dioxide 19 L (22-30) mmol/L BUN 50 H (7-17) mg/dL Creatinine 5.86 H (0.52-1.04) mg/dL Glucose 142 H (74-99) mg/dL POC Glucose (mg/dL) 157 H (75-99) mg/dL Calcium 8.2 L (8.4-10.2) mg/dL AST 565 H (14-36) U/L ALT 510 H (4-34) U/L Alkaline Phosphatase 216 H (38-126) U/L Albumin 2.8 L (3.5-5.0) g/dL 10/20/21 10/20/21 10/20/21 Range/Units 06:02 08:14 11:52 RBC (3.80-5.40) m/uL Hgb (11.4-16.0) gm/dL Hct (34.0-46.0) % MCV (80.0-100.0) fL RDW (11.5-15.5) % Neutrophils # (1.3-7.7) k/uL Lymphocytes # (1.0-4.8) k/uL ABG O2 Saturation 97.4 H (94-97) % Sodium (137-145) mmol/L Carbon Dioxide (22-30) mmol/L BUN (7-17) mg/dL Creatinine (0.52-1.04) mg/dL Glucose (74-99) mg/dL POC Glucose (mg/dL) 155 H 157 H (75-99) mg/dL Calcium (8.4-10.2) mg/dL AST (14-36) U/L ALT (4-34) U/L Alkaline Phosphatase (38-126) U/L Albumin (3.5-5.0) g/dL Microbiology - Last 24 Hours (Table) 10/18/21 03:00 Gram Stain - Final Sputum Sputum Culture - Final 10/18/21 02:00 Blood Culture Gram Stain - Final Blood Blood Culture - Final Staphylococcus epidermidis Assessment and Plan Assessment: 1 Acute cardiopulmonary arrest requiring intubation mechanical ventilatory sup port on 10/18/2021. Required epinephrine times one, 1 round of CPR with return of spontaneous circulation with continued agonal respirations. During daily interruption of sedation the patient has been slow to respond. Not following any simple commands. No good eye contact. Weak ventilatory effort. 2 Acute hypoxemic respiratory failure secondary to above 3 Acute shock liver 4 End-stage renal disease on hemodialysis Thursday 5 History of coronary disease with previous coronary bypass grafting, previous stent placement 6 Depression being followed by psychiatric services this admission and had been refusing medications and treatment 7 COPD 8 Chronic and ongoing tobacco dependence 9 History of abdominal aortic aneurysm 10 History of factor V deficiency 11 History of DVT 12 Hyperlipidemia 13 Hypertension 14 History of cirrhosis 15 Peripheral vascular disease 16 History of bipolar disease 14 Urinary tract infection and dairy to E. coli Plan: The patient was seen and evaluated by Dr. Orozco Chest x-ray, ABGs and labs reviewed Failed weaning trial today May try again after hemodialysis tomorrow Continue diuretics and bronchodilators We will continue to follow and make further recommendations based on her clinical status Critical care time 38 minutes I, the cosigning physician, performed a history & physical examination of the patient. Lungs sounds with bilateral scattered rhonchi. Maintaining good O2 saturations in the 90s on 40% FiO2 and a PEEP of 5 via the mechanical ventilator. I discussed the assessment and plan of care with my nurse practitioner, Aleisha North. I attest to the above note as dictated by her.
--- NOTE | 2021-10-20 14:25 | P.PN ---
Subjective Progress Note Date: 10/20/21 CHIEF COMPLAINT: Abdominal pain HISTORY OF PRESENT ILLNESS: The patient is a 51-year-old female with chronic abdominal pain. She had a CODE event. She is intubated and sedated in the ICU> ROS: No fevers or chills. No new chest pain. PHYSICAL EXAM: VITAL SIGNS: Reviewed CONSTITUTIONAL: Well developed and in no acute distress. EYES: Conjuctivae without sclera icterus. Extraocular movements grossly intact. HEAD, EARS, NOSE, THROAT: Moist buccal mucosa. Head is atraumatic, normocephalic. Hears conversational speech. No nasal drainage. NECK: No thyroidomegaly. RESPIRATORY: Non-labored respirations and equal bilateral excursions. On mechanical ventilation CARDIOVASCULAR: 2+ radial pulses. ABDOMEN: No peritonitis. MUSCULOSKELETAL: No gross deformity of the lower extremities noted. No clubbing. No cyanosis. SKIN: Good skin turgor. Well perfused. NEUROLOGIC: Cranial nerves I through XII grossly intact. No focal or lateralizing signs. CLINICAL LABS: Reviewed. WBC elevated 14.6 now normal 10.2. Hgb 9.6 anemia to 9.1 ASSESSMENT: 1. Abdominal pain 2. ESRD, dialysis dependent 3. Acute cardiopulmonary arrest PLAN: 1. Continue ICU management 2. Continue Vent management. Objective - Vital Signs Vital signs: Vital Signs Temp 99.8 F H 10/20/21 08:00 Pulse 96 10/20/21 11:00 Resp 27 H 10/20/21 11:00 BP 104/74 10/20/21 11:00 Pulse Ox 99 10/20/21 11:00 Intake & Output 10/19/21 10/20/21 10/20/21 18:59 06:59 18:59 Intake Total 8545.401 2281.773 424.650 Output Total 0 0 0 Balance 5166.092 7151.773 424.650 Weight 77.3 kg Intake: IV 630 240 100 Aztreonam 1 gm In Sodium 50 Chloride 0.9% 50 ml @ 16. 67 mls/hr IVPB [facility] Rx# :[id number] Sodium Chloride 0.9% 1, 330 240 100 000 ml @ 20 mls/hr IV . Q24H [facility] Rx#:[id number] Vancomycin 1,500 mg In 250 Sodium Chloride 0.9% 250 ml @ 125 mls/hr IVPB ONCE ONE Rx#:[id number] Intake, IV Titration 250.308 332.773 140.650 Amount Aztreonam 1 gm In Sodium 50 Chloride 0.9% 50 ml @ 16. 67 mls/hr IVPB HS [facility] Rx# :[id number] Norepinephrine 4 mg In 74.038 92.057 Sodium Chloride 0.9% 250 ml @ 0.05 MCG/KG/MIN 14. 69 mls/hr IV .[id number] [facility] Rx#:[id number] metroNIDAZOLE-NS PMX 500 200 mg In Saline 1 100ml.bag @ 100 mls/hr IVPB Q8HR@ 0400,1200,2000 [facility] Rx#: [id number] propofoL 1,000 mg In 176.270 82.773 48.593 Empty Bag 1 bag @ Titrate IV .Q0M [facility] Rx#: [id number] Tube Feeding 372 341 124 Other 60 180 60 Output: Urine 0 0 0 Other: Voiding Method Indwelling Catheter Indwelling Catheter - Labs CBC & Chem 7: 10/20/21 03:23 10/20/21 03:23 Labs: Abnormal Lab Results - Last 24 Hours (Table) 10/19/21 10/19/21 10/19/21 Range/Units 17:20 19:47 23:36 RBC (3.80-5.40) m/uL Hgb (11.4-16.0) gm/dL Hct (34.0-46.0) % MCV (80.0-100.0) fL RDW (11.5-15.5) % Neutrophils # (1.3-7.7) k/uL Lymphocytes # (1.0-4.8) k/uL ABG O2 Saturation (94-97) % Sodium (137-145) mmol/L Carbon Dioxide (22-30) mmol/L BUN (7-17) mg/dL Creatinine (0.52-1.04) mg/dL Glucose (74-99) mg/dL POC Glucose (mg/dL) 150 H 146 H 188 H (75-99) mg/dL Calcium (8.4-10.2) mg/dL AST (14-36) U/L ALT (4-34) U/L Alkaline Phosphatase (38-126) U/L Albumin (3.5-5.0) g/dL 10/20/21 10/20/21 10/20/21 Range/Units 03:23 03:23 03:28 RBC 3.28 L (3.80-5.40) m/uL Hgb 9.1 L (11.4-16.0) gm/dL Hct 26.2 L (34.0-46.0) % MCV 79.9 L (80.0-100.0) fL RDW 15.8 H (11.5-15.5) % Neutrophils # 8.9 H (1.3-7.7) k/uL Lymphocytes # 0.7 L (1.0-4.8) k/uL ABG O2 Saturation (94-97) % Sodium 133 L (137-145) mmol/L Carbon Dioxide 19 L (22-30) mmol/L BUN 50 H (7-17) mg/dL Creatinine 5.86 H (0.52-1.04) mg/dL Glucose 142 H (74-99) mg/dL POC Glucose (mg/dL) 157 H (75-99) mg/dL Calcium 8.2 L (8.4-10.2) mg/dL AST 565 H (14-36) U/L ALT 510 H (4-34) U/L Alkaline Phosphatase 216 H (38-126) U/L Albumin 2.8 L (3.5-5.0) g/dL 10/20/21 10/20/21 10/20/21 Range/Units 06:02 08:14 11:52 RBC (3.80-5.40) m/uL Hgb (11.4-16.0) gm/dL Hct (34.0-46.0) % MCV (80.0-100.0) fL RDW (11.5-15.5) % Neutrophils # (1.3-7.7) k/uL Lymphocytes # (1.0-4.8) k/uL ABG O2 Saturation 97.4 H (94-97) % Sodium (137-145) mmol/L Carbon Dioxide (22-30) mmol/L BUN (7-17) mg/dL Creatinine (0.52-1.04) mg/dL Glucose (74-99) mg/dL POC Glucose (mg/dL) 155 H 157 H (75-99) mg/dL Calcium (8.4-10.2) mg/dL AST (14-36) U/L ALT (4-34) U/L Alkaline Phosphatase (38-126) U/L Albumin (3.5-5.0) g/dL Microbiology - Last 24 Hours (Table) 10/18/21 03:00 Gram Stain - Final Sputum Sputum Culture - Final 10/18/21 02:00 Blood Culture Gram Stain - Final Blood Blood Culture - Final Staphylococcus epidermidis Assessment and Plan (1) Abdominal aortic aneurysm (AAA) Current Visit: No Status: Acute Code(s): I71.4 - ABDOMINAL AORTIC ANEURYSM, WITHOUT RUPTURE SNOMED Code(s): 396688581 (2) Abdominal pain Current Visit: No Status: Acute Code(s): R10.9 - UNSPECIFIED ABDOMINAL PAIN SNOMED Code(s): 04026877 (3) ESRD (end stage renal disease) on dialysis Current Visit: No Status: Acute Code(s): N18.6 - END STAGE RENAL DISEASE; Z99.2 - DEPENDENCE ON RENAL DIALYSIS SNOMED Code(s): 517243273 (4) Cardiopulmonary arrest with successful resuscitation Current Visit: Yes Status: Acute Code(s): I46.9 - CARDIAC ARREST, CAUSE UNSPECIFIED SNOMED Code(s): 711320717
[2021-10-20] MEDS ORDERED: VANCOMYCIN 1,500 MG in SODIUM CHLORIDE 0.9% 250 ML IVPB ONE (17:00)
[2021-10-20] MEDS: MORPHINE SULFATE 4 MG/ML SYRINGE IV PRN (17:28)
[2021-10-20 17:51] LABS: Glucose,Whole Blood 159 mg/dL (75-99)
[2021-10-20] MEDS: NOREPINEPHRINE 4 MG in SODIUM CHLORIDE 0.9% 250 ML IV SCH (17:54)
[2021-10-20 20:19] LABS: Glucose,Whole Blood 142 mg/dL (75-99)
[2021-10-20] MEDS: SODIUM CHLORIDE 0.9% 1,000 ML IV SCH (20:54)
--- NOTE | 2021-10-20 22:36 | PN ---
PROGRESS NOTE DATE OF SERVICE: 10/20/2021 REASON FOR FOLLOWUP: UTI and bacteremia. INTERVAL HISTORY: The patient is afebrile. The patient remains intubated and FiO2 is currently at 40%. No significant purulent secretion through the ET, diarrhea or any other changes reported by the nursing staff. PHYSICAL EXAMINATION: Blood pressure 92/58 with a pulse of 84, temperature 98.8. She is 100% on 40% FiO2. General description is a middle-aged female lying in bed in no distress. Respiratory system: Unlabored breathing, decreased intensity of breath sounds. No wheeze. Heart S1, S2. Regular rate and rhythm. Abdomen soft, no tenderness. Extremities: No edema of the feet. LABS: Sputum so far negative. Blood culture has been pending. DIAGNOSTIC IMPRESSION AND PLAN: Patient with Escherichia coli urinary tract infection. Subsequently the patient did have cardiopulmonary arrest requiring intubation, possible aspiration pneumonitis. Also a positive blood culture in this patient who did have a catheter for dialysis. Vancomycin was added yesterday; to continue along with Azactam and Flagyl because of her allergies and monitor clinical course closely. MMODL / IJN: [id number] /
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
[2021-10-20 23:24] LABS: Glucose,Whole Blood 136 mg/dL (75-99)
[2021-10-21] MEDS: NOREPINEPHRINE 4 MG in SODIUM CHLORIDE 0.9% 250 ML IV SCH ×2 (00:12→19:54)
[2021-10-21] MEDS: NON FORMULARY DRUG (Dulaglutide [Trulicity] 1.5 MG/0.5 ML Pen.Injctr) SQ SCH (00:55)
[2021-10-21] MEDS: AZTREONAM 1 GM in SODIUM CHLORIDE 0.9% 50 ML IVPB SCH ×2 (00:58→17:15)
[2021-10-21] MEDS: SODIUM CHLORIDE 0.9% 1,000 ML IV SCH (02:20)
[2021-10-21] MEDS: IPRATROPIUM-ALBUTEROL 3 ML NEB INHALATION SCH ×6 (03:40→23:31)
[2021-10-21 03:49] LABS: Anisocytosis Slight; HCT 24.7 % (34.0-46.0); HGB 8.6 gm/dL (11.4-16.0); MCH 28.5 pg (25.0-35.0); MCV 81.3 fL (80.0-100.0); Mean Platelet Volume 8.8; Platelet Count 158 k/uL (150-450); RBC 3.04 m/uL (3.80-5.40); RDW 16.5 % (11.5-15.5); WBC 10.3 k/uL (3.8-10.6)
[2021-10-21 04:21] LABS: Calcium 8.7 mg/dL (8.4-10.2); Potassium 4.6 mmol/L (3.5-5.1)
[2021-10-21 04:54] LABS: Glucose,Whole Blood 139 mg/dL (75-99)
[2021-10-21] MEDS: INSULIN ASPART (NovoLOG) 100 UNIT/ML VIAL SQ SCH ×4 (04:55→17:03)
[2021-10-21] MEDS: metroNIDAZOLE-NS PMX 500 MG in SALINE 1 100ML.BAG IVPB SCH ×3 (04:55→20:10)
[2021-10-21 05:42] LABS: ABG HCO3 22 mmol/L (21-25); ABG PCO2 46 mmHg (35-45); ABG PH 7.28 (7.35-7.45); ABG PO2 86 mmHg (83-108); ABG TCO2 23 mmol/L (19-24); Allen Test Performed? Yes
[2021-10-21] MEDS: CALCIUM ACETATE 667 MG TAB PO SCH ×2 (06:11→17:29)
[2021-10-21 08:37] LABS: Glucose,Whole Blood 134 mg/dL (75-99)
[2021-10-21] MEDS: PANTOPRAZOLE 40 MG/10 ML VIAL IVP SCH (08:41)
[2021-10-21] MEDS: CHLORHEXIDINE GLUCONATE 15 ML CUP MUCOUS MEM SCH ×2 (08:41→20:10)
[2021-10-21] MEDS: CLOPIDOGREL 75 MG TAB PO SCH (08:43)
[2021-10-21] MEDS: HEPARIN SODIUM,PORCINE/PF 5,000 UNIT/0.5 ML SYRINGE SQ SCH ×2 (08:43→17:03)
[2021-10-21] MEDS: amLODIPine 5 MG TAB PO SCH ×2 (08:43→20:06)
[2021-10-21] MEDS: hydrALAZINE HCL 50 MG TAB PO SCH ×3 (08:44→22:16)
[2021-10-21] MEDS: LOPERAMIDE 2 MG CAP PO SCH ×4 (08:44→20:07)
[2021-10-21] MEDS: METOPROLOL SUCCINATE (ER) 100 MG TAB.ER.24H PO SCH (08:48)
[2021-10-21] MEDS: PREGABALIN 75 MG CAP PO SCH ×2 (08:48→20:10)
[2021-10-21] MEDS: LOSARTAN 50 MG TAB PO SCH ×2 (08:48→22:16)
--- NOTE | 2021-10-21 08:48 | XR ---
EXAMINATION TYPE: XR chest 1V portable DATE OF EXAM: 10/21/2021 COMPARISON: 10/20/2021 INDICATION: Tube placement TECHNIQUE: Single frontal view of the chest is obtained. FINDINGS: The heart size is borderline enlarged. The pulmonary vasculature is normal. Small right pleural effusion is present. Endotracheal tube tip is high within the trachea, 8 cm above the prakash. This could be advanced 4 cm. Nasogastric tube extends to the distal esophagus and should be advanced 16 cm. These have been pulle d back from comparison. Right double-lumen catheter has the tip in the right atrium. Left central steffany ous catheter tip is in the proximal right atrium. No pneumothorax is evident. IMPRESSION: 1. Small right pleural effusion. 2. Endotracheal tube and nasogastric tube pulled back from prior examination. The should be advanced discussed above.
[2021-10-21] MEDS: CHOLESTYRAMINE (WITH SUGAR) 4 GM PACKET PO SCH ×2 (08:55→18:35)
[2021-10-21] MEDS: FOLIC ACID-VIT B COMPLEX-VIT C 1 CAP PO SCH (08:55)
[2021-10-21] MEDS: DICYCLOMINE 20 MG TAB PO SCH ×4 (09:02→20:10)
[2021-10-21] MEDS: DULoxetine HCL 30 MG CAPSULE.DR PO SCH (09:03)
--- NOTE | 2021-10-21 09:21 | P.PN ---
Subjective Progress Note Date: 10/21/21 This is a 51-year-old female patient with a known history of end-stage renal disease receiving hemodialysis Thursday. Has has history of coronary artery disease with previous stent placement and coronary artery bypass grafting, abdominal aortic aneurysm measuring 4.2 cm, factor V deficiency, CVA/TIA, DVT T, diabetes mellitus, hyperlipidemia, hypertension. She had moved here approximate 6 weeks ago from [place]. No primary care provider. She presented to the hospital back on 10/13/2021 with complaints of abdominal discomfort and nausea and vomiting. She had missed some dialysis prior. She has been undergoing workup regarding her symptoms. At 145 this morning of CODE BOBO was called on the patient she was found to be in a cardiac arrest after being found not breathing and she received CPR for approximately 1 minute. She is intubated and transferred to the intensive care unit. He is seen today in consultation. She is currently intubated on mechanical ventilator at assist control mode at a rate of 18, positive on 400, FiO2 50% and a PEEP of 5. Initial blood gases revealed a PaO2 of 330, pCO2 35 and a pH of 7.25 and that was on 100% FiO2. She is sedated on propofol at 30 mcg/mg/m. She is on norepinephrine at 11 mcg/m. 0.9 normal saline at 75 mL per hour. She is receiving hemodialysis currently. White count 20.8. Hemoglobin 10.0. Platelets 148. Sodium 136. Potassium 5.8. Bicarbonate 13. BUN 61. Creatinine 7.68. Glucose 305. AST 1393. ALT 511. Alk phos 237. Troponins 3.2. Pro-calcitonin 21.2. Up from 0.18 Urine culture positive for E. coli. Sputum culture pending. Chest x-ray reveals patchy retrocardiac atelectasis/infiltrate, stable. She is on antibiotics in the form of Levaquin. Bronchodilators. Heparin for DVT prophylaxis. On 10/19/2021 The patient remains on mechanical ventilator. She was intubated yesterday. She is on the volume assist control mode, rate 18, tidal volume 400, FiO2 50%, and a PEEP of 5. Arterial blood gases show pO2 121, pCO2 43, and a pH is 7.34. The FiO2 was reduced to 40%. The patient's on propofol at 35 mcg/kg/m, norepinephrine at 4 mcg/m, saline at 20 mL an hour, and Nepro at 31 mL an hour, which is goal. We will attempt a daily interruption of sedation today, with a spontaneous breathing trial with pressure support of 5, and CPAP of 5. Yesterday, we attempted a R line, both in the right radial site, and right femoral artery site, and was unsuccessful at both sites. White count 14.8, hemoglobin 9.6, hematocrit 27.4, and platelet count is 172,000. Sodium 135, potassium 4, chlorides 102, CO2 21, anion gap 12, BUN 40, creatinine 4.94. Urine culture is positive for Escherichia coli. Blood cultures positive for staph epidermidis. Chest x-ray today, is unchanged, and shows mild c ardiomegaly, and stable left basilar consolidation. The patient is currently on aztreonam and Flagyl. The patient is seen today 10/20/2021 in follow-up in the intensive care unit. She remains intubated and on mechanical ventilator. Current mode of assist control with a rate of 18, tidal volume 400, FiO2 40% and a PEEP of 5. Morning blood gases revealed a PaO2 of 90, pCO2 38, pH 7.39. She has been slow to wake up. She's been off sedation for several hours without much improvement. She was trialed on pressure support of 5 and a CPAP of 5 50% FiO2 however she was having Ward-Feng respirations. Not following any simple commands. Not making good eye contact. She is recently sedated to continue with daily interruption as sedation and weaning trials tomorrow. She may do better after hemodialysis tomorrow. Chest x-ray continues to revealed bilateral patchy opacities with mild interstitial edema and sputum culture reveals no growth. Urine culture is positive for E. coli. Blood culture revealed Staphylococcus epidermidis. White count 10.2. Hemoglobin 9.1. Platelets 172. Sodium 133. Potassium 4.2. Bicarb 19. BUN 50. Creatinine 5.86. Glucose 142. AST 565. ALT 510. Alk phos 216. She is continued on DuoNeb inhalations. Antibiotics in the form of vancomycin and aztreonam. Continued on Flagyl. Heparin for DVT prophylaxis. On today's evaluation of 10/21/2021, the patient is being seen for a follow-up. This patient has multiple medical problems and comorbidities as mentioned earlier in the records. The patient got transferred to the intensive care unit following an acute cardiac arrest. The patient was found to be in a PEA rhythm and the patient was resuscitated according to the ACLS protocol, intubated and placed on a mechanical ventilator and following that the patient got transferred to the ICU. For now, the patient is receiving sedation holidays. The patient this morning is back on sedation and propofol is running at 25 mcg/kg per minute and the dose has been weaned down to 90 g as part of a sedation holiday which is being done on a daily basis. The patient remains on a mechanical ventilator. At this point in time, the patient is on assist control mode at the rate of 18, tidal volume of 400, FiO2 of 40% with a PEEP of 5. Chest x-ray and blood gases have been noted. Note that the patient was not following commands and she was n ot responsive during earlier sedation holidays. As such, the patient was kept on a mechanical ventilator. The chest x-ray shows no significant abnormalities. There is some cardiomegaly. No airspace disease. ET tube needs to be pushed down by around 1 cm. This that She has ESRD disease and she has been maintained on hemodialysis. Urine culture was positive for E. coli and the patient had a p ossible culture for staph epidermidis. The patient for now is on a combination of aztreonam, vancomycin and Flagyl. Hemodynamically stable on no pressors. Chest x-ray Shows cardiomegaly and ET tube is in location. The patient also has a permacath in the right SC vein. OG tube is also in place. Initial progress. Procal Level was at 0.18 and a subsequent level came back at 21.2. The COVID-19 testing was negative by PCR. The abdominal ultrasound showed a small amount of intra-abdominal ascites and diffuse fatty infiltration and underlying hepatocellular disease. Previous echocardiogram from October 2020 showed diastolic heart failure, RV was severely enlarged, severe tricuspid regurg itation, PEA pressure was 46 and there was IVC dilatation consistent with volume overload. She has minimal UO and she is afebrile the patient remains on low-dose norepinephrine infusion which is currently running at 0.03 mcg/kg per minute. IV fluids are currently at KVO. She is receiving enteral feeding for nutritional support and she is currently on Nepro at the rate of 31 mL an hour. The last hemodialysis session was on 10/18/2021 and the patient is going to undergo hemodialysis today. Objective - Vital Signs Vital signs: Vital Signs Temp 98.5 F 10/21/21 08:00 Pulse 78 10/21/21 09:00 Resp 19 10/21/21 09:00 BP 95/54 10/21/21 09:00 Pulse Ox 99 10/21/21 09:00 Intake & Output 10/20/21 10/21/21 10/21/21 18:59 06:59 18:59 Intake Total 1222.654 988.854 246.222 Output Total 0 10 14 Balance 1222.654 978.854 232.222 Weight 80 kg Intake: IV 540 240 60 Aztreonam 1 gm In Sodium 50 Chloride 0.9% 50 ml @ 16. 67 mls/hr IVPB [facility] Rx# :[id number] Sodium Chloride 0.9% 1, 240 240 60 000 ml @ 20 mls/hr IV . Q24H [facility] Rx#:[id number] Vancomycin 1,500 mg In 250 Sodium Chloride 0.9% 250 ml @ 125 mls/hr IVPB ONCE ONE Rx#:[id number] Intake, IV Titration 221.654 196.854 63.222 Amount Norepinephrine 4 mg In 95.681 48.477 16.649 Sodium Chloride 0.9% 250 ml @ 0.05 MCG/KG/MIN 14. 69 mls/hr IV .[id number] [facility] Rx#:[id number] propofoL 1,000 mg In 125.973 148.377 46.573 Empty Bag 1 bag @ Titrate IV .Q0M [facility] Rx#: [id number] Tube Feeding 341 372 93 Other 120 180 30 Output: Urine 0 10 14 Other: Voiding Method Indwelling Catheter Indwelling Catheter - Exam GENERAL EXAM: 51-year-old female patient, and intubated on mechanical ventilator, off sedation, slow to respond, not following any simple commands, weak ventilatory effort. HEAD: Normocephalic. EYES: Normal reaction of pupils, equal size. NOSE: Clear with pink turbinates. THROAT: Endotracheal and orogastric tube secured in place. No erythema or exudates. NECK: No masses, no JVD. CHEST: No chest wall deformity. LUNGS: Equal air entry with few scattered rhonchi bilaterally. CVS: S1 and S2 normal with no audible murmur, regular rhythm. ABDOMEN: No hepatosplenomegaly, normal bowel sounds, no guarding or rigidity. SPINE: No scoliosis or deformity SKIN: No rashes CENTRAL NERVOUS SYSTEM: Not following simple commands off sedation, tone is normal in all 4 extremities. EXTREMITIES: There is no peripheral edema. No clubbing, no cyanosis. Peripheral pulses are intact. - Labs CBC & Chem 7: 10/21/21 03:04 10/21/21 03:04 Labs: Abnormal Lab Results - Last 24 Hours (Table) 10/20/21 10/20/21 10/20/21 Range/Units 11:52 17:50 20:17 RBC (3.80-5.40) m/uL Hgb (11.4-16.0) gm/dL Hct (34.0-46.0) % RDW (11.5-15.5) % ABG pH (7.35-7.45) ABG pCO2 (35-45) mmHg Sodium (137-145) mmol/L Carbon Dioxide (22-30) mmol/L BUN (7-17) mg/dL Creatinine (0.52-1.04) mg/dL Glucose (74-99) mg/dL POC Glucose (mg/dL) 157 H 159 H 142 H (75-99) mg/dL 10/20/21 10/21/21 10/21/21 Range/Units 23:22 03:04 03:04 RBC 3.04 L (3.80-5.40) m/uL Hgb 8.6 L (11.4-16.0) gm/dL Hct 24.7 L (34.0-46.0) % RDW 16.5 H (11.5-15.5) % ABG pH (7.35-7.45) ABG pCO2 (35-45) mmHg Sodium 135 L (137-145) mmol/L Carbon Dioxide 18 L (22-30) mmol/L BUN 61 H (7-17) mg/dL Creatinine 6.82 H (0.52-1.04) mg/dL Glucose 131 H (74-99) mg/dL POC Glucose (mg/dL) 136 H (75-99) mg/dL 10/21/21 10/21/21 10/21/21 Range/Units 04:50 05:41 08:35 RBC (3.80-5.40) m/uL Hgb (11.4-16.0) gm/dL Hct (34.0-46.0) % RDW (11.5-15.5) % ABG pH 7.28 L (7.35-7.45) ABG pCO2 46 H (35-45) mmHg Sodium (137-145) mmol/L Carbon Dioxide (22-30) mmol/L BUN (7-17) mg/dL Creatinine (0.52-1.04) mg/dL Glucose (74-99) mg/dL POC Glucose (mg/dL) 139 H 134 H (75-99) mg/dL Microbiology - Last 24 Hours (Table) 10/19/21 16:39 Blood Culture - Preliminary Blood No Growth after 24 hours 10/18/21 03:00 Gram Stain - Final Sputum Sputum Culture - Final 10/18/21 02:00 Blood Culture Gram Stain - Final Blood Blood Culture - Final Staphylococcus epidermidis Assessment and Plan Plan: 1 Acute cardiopulmonary arrest requiring intubation mechanical ventilatory support on 10/18/2021. The patient was found to be in PEA cardiac arrest, and she required epinephrine times one, 1 round of CPR with return of spontaneous circulation with continued agonal respirations. During daily interruption of sedation the patient has been slow to respond. Not following any simple commands. No good eye contact. Weak ventilatory effort. Consider possibility of underlying hypoxic encephalopathy post cardiac arrest. The exact downtime is not known and it's possible that the patient a prolonged downtime. CAT scan of the brain will be also needed to for altered mentation post cardiac arrest. 2 Acute hypoxemic respiratory failure secondary to above, chest x-ray showing cardiomegaly 3 Acute shock liver , stable LFTs, patient has massive ascites 4 End-stage renal disease on hemodialysis Thursday 5 History of coronary disease with previous coronary bypass grafting, previous stent placement 6 Depression being followed by psychiatric services this admission and had been refusing medications and treatment 7 COPD 8 Chronic and ongoing tobacco dependence 9 History of abdominal aortic aneurysm , 4.8 cm followed up by vascular surgery 10 History of factor V deficiency , maintained on on outpatient basis 12 Hyperlipidemia 13 Hypertension 14 History of cirrhosis, with secondary ascites 15 Peripheral vascular disease 16 History of bipolar disease 14 Urinary tract infection and dairy to E. coli 15 history of irritable bowel syndrome/gastroparesis with secondary abdominal pain 16 history of chronic diastolic heart failure with severe pulmonary hypertension based on echocardiogram that was done in November 08 lumbar radiculopathy 18 chronic claudication Plan: The patient has failed sedation holiday and obviously there is a concern for hypoxic encephalopathy in the setting of an acute cardiopulmonary arrest. Other causes of encephalopathy need to be considered including the possibility of metabolic encephalopathy and hepatic encephalopathy. We'll give the patient sedation holiday. We'll check ammonia level. We'll consult neurology regarding her ongoing altered mentation. CT proceed with a CAT scan of the brain, post cardiac arrest Proceed with a 2-D echocardiogram post Cardiac arrest Continue ventilator support and no changes for today and a chest x-ray essentially clear Proceed with hemodialysis today Continue same antibiotic coverage for now Considering sampling of the ascitic fluid to rule out the possibility of SBP Continue enteral feeding for nutritional support This is critical and prognosis poor baseline above-mentioned comorbidities. We'll continue to follow. This evaluation was done and more than 30 minutes. Time with Patient: Greater than 30
[2021-10-21 10:09] VITALS: BMI 27.6
--- NOTE | 2021-10-21 10:44 | CT ---
EXAMINATION TYPE: CT brain wo con DATE OF EXAM: 10/21/2021 COMPARISON: None HISTORY: altered mental status CT DLP: 1099.4 mGycm Automated exposure control for dose reduction was used. FINDINGS: Intracranial atherosclerotic changes are noted. Ventricular system is midline. Calcifications in the basal ganglia noted. Faint low attenuation is seen within the white matter which is nonspecific. No acute hemorrhage or mass effect. No midline shift. Report called to the patient's nurse 10:39 AM 1 12/21/2020. Craniocervical junction maintained. Sella turcica normal. No significant changes of sinusitis. Orbits are symmetric. Nodular prominence the right MCA axial image 10. IMPRESSION: MILD DEGENERATIVE CHANGE WITH NONSPECIFIC WHITE MATTER CHANGES. CANNOT EXCLUDE A AREA OF ACUTE SUBACU TE ISCHEMIA IN THE LEFT FRONTAL WHITE MATTER RECOMMEND FOLLOW-UP MRI PROMINENCE OF THE RIGHT MCA RECOMMEND MRA [place] TO EXCLUDE SMALL ANEURYSM.
[2021-10-21 11:29] LABS: Glucose,Whole Blood 138 mg/dL (75-99)
--- NOTE | 2021-10-21 12:15 | PN ---
PROGRESS NOTE Patient is seen for followup for end-stage renal disease. The patient remains intubated. She has just come back from CT of the head. PHYSICAL EXAMINATION: Blood pressure this morning 121/60, heart rate 78 per minute. Patient is afebrile. Examination shows no evidence of edema bilateral lower extremities. Abdomen is soft, nontender. Patient appears euvolemic. She is scheduled for hemodialysis today. LAB: Show sodium 135, potassium 4.6, CO2 is 18, BUN 61, creatinine 6.8, hemoglobin 8.6 g/dL. ASSESSMENT: 1. End-stage renal disease, maintained on dialysis hemodialysis on a Thursday, Thursday, Thursday schedule. 2. Escherichia coli urinary tract infection. 3. Status post cardiac arrest. 4. Staphylococcus epidermidis bacteremia with high vancomycin levels. I will hold the vancomycin for now. 5. Previous history of volume overload. 6. Hypertension. Blood pressure is now low, all antihypertensive medications on hold. PLAN: Hemodialysis today. Hold vancomycin. MMODL / IJN: [id number] /
[2021-10-21] MEDS: TAMSULOSIN 0.4 MG CAP.ER.24H PO SCH (12:17)
--- NOTE | 2021-10-21 13:10 | P.PN ---
Subjective Progress Note Date: 10/21/21 CHIEF COMPLAINT: Abdominal pain HISTORY OF PRESENT ILLNESS: The patient is a 51-year-old female with chronic abdominal pain. She had cardiopulmonary arrest and is currently in the ICU intubated and sedated. She is on a small amount of Levophed. Patient did have a temperature yesterday of 100.8 WBC 10.3 Hgb 8.6 Has tube feeds for nutrition support. Critical care service for considering sampling of the peritoneal fluid to rule out possibility of SBP PHYSICAL EXAM: VITAL SIGNS: Reviewed GENERAL: Well-developed in no acute distress. HEENT: No sclera icterus. Extraocular movements grossly intact. Moist buccal mucosa. Head is atraumatic, normocephalic. Hears conversational speech. No nasal d rainage. NECK: Supple without lymphadenopathy. CHEST: Non-labored respirations and equal bilateral excursions. CARDIOVASCULAR: Palpable 2+ radial pulses. ABDOMEN: Soft. Nondistended. Nontender. MUSCULOSKELETAL: No clubbing or cyanosis. NEUROLOGIC: No focal or lateralizing signs. Cranial nerves II through XII grossly intact. PSYCH: Appropriate affect. Alert and oriented to person, place and time. SKIN: Well perfused. Good skin turgor. ASSESSMENT: 1. Abdominal pain 2. ESRD, dialysis dependent 3. Acute cardiopulmonary arrest PLAN: -Continue ICU management -Continue supportive care -Vent management per care service Physician Cafeteria Attendant note has been reviewed by physician. Signing provider agrees with the documented findings, assessment, and plan of care. Objective - Vital Signs Vital signs: Vital Signs Temp 98.3 F 10/21/21 12:30 Pulse 79 10/21/21 12:30 Resp 22 10/21/21 12:30 BP 101/63 10/21/21 12:30 Pulse Ox 96 10/21/21 12:30 Intake & Output 10/20/21 10/21/21 10/21/21 18:59 06:59 18:59 Intake Total 1222.654 988.854 527.958 Output Total 0 10 14 Balance 1222.654 978.854 513.958 Weight 80 kg 80 kg Intake: IV 540 240 120 Aztreonam 1 gm In Sodium 50 Chloride 0.9% 50 ml @ 16. 67 mls/hr IVPB [facility] Rx# :[id number] Sodium Chloride 0.9% 1, 240 240 120 000 ml @ 20 mls/hr IV . Q24H [facility] Rx#:[id number] Vancomycin 1,500 mg In 250 Sodium Chloride 0.9% 250 ml @ 125 mls/hr IVPB ONCE ONE Rx#:[id number] Intake, IV Titration 221.654 196.854 222.958 Amount Norepinephrine 4 mg In 95.681 48.477 54.305 Sodium Chloride 0.9% 250 ml @ 0.05 MCG/KG/MIN 14. 69 mls/hr IV .[id number] [facility] Rx#:[id number] metroNIDAZOLE-NS PMX 500 100 mg In Saline 1 100ml.bag @ 100 mls/hr IVPB Q8HR@ 0400,1200,2000 [facility] Rx#: [id number] propofoL 1,000 mg In 125.973 148.377 68.653 Empty Bag 1 bag @ Titrate IV .Q0M [facility] Rx#: [id number] Tube Feeding 341 372 155 Other 120 180 30 Output: Urine 0 10 14 Other: Voiding Method Indwelling Catheter Indwelling Catheter Indwelling Catheter - Labs CBC & Chem 7: 10/21/21 03:04 10/21/21 03:04 Labs: Abnormal Lab Results - Last 24 Hours (Table) 10/20/21 10/20/21 10/20/21 Range/Units 17:50 20:17 23:22 RBC (3.80-5.40) m/uL Hgb (11.4-16.0) gm/dL Hct (34.0-46.0) % RDW (11.5-15.5) % ABG pH (7.35-7.45) ABG pCO2 (35-45) mmHg Sodium (137-145) mmol/L Carbon Dioxide (22-30) mmol/L BUN (7-17) mg/dL Creatinine (0.52-1.04) mg/dL Glucose (74-99) mg/dL POC Glucose (mg/dL) 159 H 142 H 136 H (75-99) mg/dL Procalcitonin (0.02-0.09) ng/mL 10/21/21 10/21/21 10/21/21 Range/Units 03:04 03:04 03:04 RBC 3.04 L (3.80-5.40) m/uL Hgb 8.6 L (11.4-16.0) gm/dL Hct 24.7 L (34.0-46.0) % RDW 16.5 H (11.5-15.5) % ABG pH (7.35-7.45) ABG pCO2 (35-45) mmHg Sodium 135 L (137-145) mmol/L Carbon Dioxide 18 L (22-30) mmol/L BUN 61 H (7-17) mg/dL Creatinine 6.82 H (0.52-1.04) mg/dL Glucose 131 H (74-99) mg/dL POC Glucose (mg/dL) (75-99) mg/dL Procalcitonin 65.40 H (0.02-0.09) ng/mL 10/21/21 10/21/21 10/21/21 Range/Units 04:50 05:41 08:35 RBC (3.80-5.40) m/uL Hgb (11.4-16.0) gm/dL Hct (34.0-46.0) % RDW (11.5-15.5) % ABG pH 7.28 L (7.35-7.45) ABG pCO2 46 H (35-45) mmHg Sodium (137-145) mmol/L Carbon Dioxide (22-30) mmol/L BUN (7-17) mg/dL Creatinine (0.52-1.04) mg/dL Glucose (74-99) mg/dL POC Glucose (mg/dL) 139 H 134 H (75-99) mg/dL Procalcitonin (0.02-0.09) ng/mL 10/21/21 Range/Units 11:28 RBC (3.80-5.40) m/uL Hgb (11.4-16.0) gm/dL Hct (34.0-46.0) % RDW (11.5-15.5) % ABG pH (7.35-7.45) ABG pCO2 (35-45) mmHg Sodium (137-145) mmol/L Carbon Dioxide (22-30) mmol/L BUN (7-17) mg/dL Creatinine (0.52-1.04) mg/dL Glucose (74-99) mg/dL POC Glucose (mg/dL) 138 H (75-99) mg/dL Procalcitonin (0.02-0.09) ng/mL Microbiology - Last 24 Hours (Table) 10/19/21 16:39 Blood Culture - Preliminary Blood No Growth after 24 hours 10/18/21 03:00 Gram Stain - Final Sputum Sputum Culture - Final 10/18/21 02:00 Blood Culture Gram Stain - Final Blood Blood Culture - Final Staphylococcus epidermidis
[2021-10-21 16:17] LABS: Glucose,Whole Blood 110 mg/dL (75-99)
--- NOTE | 2021-10-21 16:36 | ECHOF ---
Referral Reason:cardiac arrest MEASUREMENTS -------- HEIGHT: 170.2 cm WEIGHT: 79.8 kg BP: 115/69 RVIDd: 3.8 cm (< 3.3) IVSd: 1.4 cm (0.6 - 1.1) LVIDd: 3.8 cm (3.9 - 5.3) LVPWd: 1.3 cm (0.6 - 1.1) IVSs: 1.8 cm LVIDs: 2.7 cm LVPWs: 1.8 cm LA Diam: 4.0 cm (2.7 - 3.8) LAESV Index (A-L): 24.09 ml/m Ao Diam: 3.2 cm (2.0 - 3.7) AV Cusp: 2.0 cm (1.5 - 2.6) MV EXCURSION: 16.095 mm (> 18.000) MV EF SLOPE: 69 mm/s (70 - 150) EPSS: 0.5 cm MV E Cesar: 1.28 m/s MV DecT: 234 ms MV A Cesar: 0.96 m/s MV E/A Ratio: 1.34 RAP: 15.00 mmHg RVSP: 52.29 mmHg FINDINGS -------- Sinus rhythm. This was a technically good study. The left ventricular size is normal. There is moderate concentric left ventricular hypertrophy. O verall left ventricular systolic function is low-normal with, an EF between 50 - 55 %. There is sep darius flattening in diastole and systole which is consistent with right ventricular pressure and volume overload. The right ventricle is mild to moderately enlarged. Normal LA size by volume 22+/-6 ml/m2. The right atrium is normal in size. Interatrial and interventricular septum intact. There is mild aortic valve sclerosis. The mitral valve leaflets are mildly thickened. Mild mitral annular calcification present. There is trace to mild mitral regurgitation. Moderate to severe tricuspid regurgitation present. There is moderate pulmonary hypertension. The right ventricular systolic pressure, as measured by Doppler, is 52.29mmHg. Trace/mild (physiologic) pulmonic regurgitation. The aortic root size is normal. The inferior vena cava is dilated with no significant inspiratory collapse which is consistent estima cheko right atrial pressure of >15mmHg. There is no pericardial effusion. CONCLUSIONS -------- 1. The left ventricular size is normal. 2. There is moderate concentric left ventricular hypertrophy. 3. Overall left ventricular systolic function is low-normal with, an EF between 50 - 55 %. 4. There is septal flattening in diastole and systole which is consistent with right ventricular pres sure and volume overload. 5. The right ventricle is mild to moderately enlarged. 6. There is mild aortic valve sclerosis. 7. The mitral valve leaflets are mildly thickened. 8. Mild mitral annular calcification present. 9. There is trace to mild mitral regurgitation. 10. Moderate to severe tricuspid regurgitation present. 11. There is moderate pulmonary hypertension. 12. The right ventricular systolic pressure, as measured by Doppler, is 52.29mmHg. 13. Trace/mild (physiologic) pulmonic regurgitation. 14. The inferior vena cava is dilated with no significant inspiratory collapse which is consistent es timated right atrial pressure of >15mmHg. 15. There is no pericardial effusion. GORE INSERTER: Nelli Tavera RDCS
[2021-10-21] MEDS: DEXMEDETOMIDINE/0.9% NACL(PMX) 400 MCG in EMPTY BAG 1 BAG IV SCH (19:57)
--- NOTE | 2021-10-21 22:05 | XR ---
EXAMINATION TYPE: XR chest 1V portable DATE OF EXAM: 10/21/2021 COMPARISON: Chest radiograph 10/21/2021 HISTORY: Advanced endotracheal tube. TECHNIQUE: Single frontal view of the chest is obtained. FINDINGS: Endotracheal tube tip approximately 7 cm above the prakash the level of the clavicular head s. Gastric tube coursing below the diaphragm with the distal tip not imaged. Median sternotomy wires. Superior median sternotomy wire is fractured similar to the prior examination. CABG changes. Right c entral venous catheter with the tip over the right atrium. Left upper extremity PICC with the cathete r at the cavoatrial junction. Left axillary/upper extremity clips. Cardiomediastinal silhouette is stable. The pulmonary vasculature is within normal limits. There is e levation of the right hemidiaphragm. There is patchy and strandy opacities at the right base. IMPRESSION: 1. Small right effusion with adjacent atelectasis/airspace disease. 2. Lines and tubes as above.
--- NOTE | 2021-10-21 22:22 | PN ---
PROGRESS NOTE DATE OF SERVICE: 10/21/2021 REASON FOR FOLLOWUP: E coli UTI and question of aspiration pneumonitis and bacteremia. INTERVAL HISTORY: The patient is afebrile. She was on low-dose pressors at the time of my evaluation this morning, undergoing hemodialysis. Patient slowly waking up. No significant purulent secretions thru the ET, diarrhea or any other changes reported by the nursing staff. PHYSICAL EXAMINATION: Blood pressure 106/60 with a pulse of 65, temperature 97.9. She is 98% on 40% FIO2. General description is a middle-aged female intubated on the vent. Respiratory system: Unlabored breathing, decreased breath sounds in the base. No wheeze. Heart S1, S2. Regular rate and rhythm. Abdomen soft, no tenderness. Extremities: No edema of the feet. LABS: Hemoglobin 8.6, white count 10.3, BUN of 61, creatinine 6.82. Procalcitonin elevated. Blood culture repeat has been negative so far. DIAGNOSTIC IMPRESSION AND PLAN: 1. Patient with an E coli urinary tract infection. This patient did have with possible aspiration pneumonitis, covered with and Flagyl. White count has normalized. 2. Positive for Staph epi and with the patient having a dialysis catheter she has been covered with vancomycin while waiting for repeat culture to finalize. Continue supportive care. MMODL / IJN: [id number] /
[2021-10-22] LABS: Glucose,Whole Blood 130 mg/dL (75-99)
[2021-10-22] MEDS: HEPARIN SODIUM,PORCINE/PF 5,000 UNIT/0.5 ML SYRINGE SQ SCH ×4 (00:01→23:53)
[2021-10-22] MEDS: INSULIN ASPART (NovoLOG) 100 UNIT/ML VIAL SQ SCH ×5 (00:01→23:53)
[2021-10-22] MEDS: DEXMEDETOMIDINE/0.9% NACL(PMX) 400 MCG in EMPTY BAG 1 BAG IV SCH ×2 (02:17→13:52)
[2021-10-22] MEDS: IPRATROPIUM-ALBUTEROL 3 ML NEB INHALATION SCH ×5 (03:26→20:53)
[2021-10-22 04:52] LABS: Anisocytosis Slight; Basophils % (A) 0 %; Eosinophils # (A) 0.1 k/uL (0-0.7); Eosinophils % (A) 1 %; HCT 27.7 % (34.0-46.0); HGB 9.4 gm/dL (11.4-16.0); Lymphocytes # (A) 0.6 k/uL (1.0-4.8); Lymphocytes % (A) 5 %; MCH 27.1 pg (25.0-35.0); MCHC 33.9 g/dL (31.0-37.0); MCV 79.8 fL (80.0-100.0); Mean Platelet Volume 8.6; Monocytes # (A) 0.7 k/uL (0-1.0); Monocytes % (A) 5 %; Neutrophils # (A) 11.2 k/uL (1.3-7.7); Neutrophils % (A) 88 %; Platelet Count 150 k/uL (150-450); RBC 3.46 m/uL (3.80-5.40); RDW 16.3 % (11.5-15.5); WBC 12.8 k/uL (3.8-10.6)
[2021-10-22] MEDS: metroNIDAZOLE-NS PMX 500 MG in SALINE 1 100ML.BAG IVPB SCH ×3 (05:18→19:41)
[2021-10-22 05:19] LABS: ABG Base Excess -2.2 mmol/L; ABG HCO3 22 mmol/L (21-25); ABG Oxygen Saturation 95.8 % (94-97); ABG PCO2 33 mmHg (35-45); ABG PH 7.43 (7.35-7.45); ABG PO2 74 mmHg (83-108); ABG TCO2 23 mmol/L (19-24); Allen Test Performed? Yes
[2021-10-22] MEDS: AZTREONAM 1 GM in SODIUM CHLORIDE 0.9% 50 ML IVPB SCH ×2 (05:19→16:34)
[2021-10-22 06:27] LABS: Albumin 3.2 g/dL (3.5-5.0); Calcium 9.2 mg/dL (8.4-10.2); Potassium 4.5 mmol/L (3.5-5.1); Total Bilirubin 1.3 mg/dL (0.2-1.3); Total Protein 7.1 g/dL (6.3-8.2)
[2021-10-22 06:47] LABS: Glucose,Whole Blood 264 mg/dL (75-99)
[2021-10-22 06:47] LABS: Glucose,Whole Blood 265 mg/dL (75-99)
[2021-10-22] MEDS: CALCIUM ACETATE 667 MG TAB PO SCH ×2 (06:47→17:38)
--- NOTE | 2021-10-22 07:52 | XR ---
EXAMINATION TYPE: XR chest 1V portable DATE OF EXAM: 10/22/2021 CLINICAL HISTORY: Difficulty breathing progress study. TECHNIQUE: Single AP portable upright view of the chest is obtained. COMPARISON: Chest x-ray from one day earlier and older studies. FINDINGS: Stable endotracheal and orogastric tubes. Stable left subclavian central venous catheter. Stable large bore right internal jugular dialysis catheter. Overlying sternal wires and mediastinal clips redemonstrated. Stable mild cardiomegaly. Mild intersti tial prominence bilaterally redemonstrated with patchy bibasilar opacities again seen. Surgical clips proximal left upper extremity redemonstrated. Osseous structures are intact. IMPRESSION: Mild cardiomegaly with mild interstitial edema and Stable bibasilar acute infiltrate and/ or atelectasis. No significant change from one day earlier.
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
[2021-10-22] MEDS: LOPERAMIDE 2 MG CAP PO SCH ×4 (09:08→19:39)
[2021-10-22] MEDS: DICYCLOMINE 20 MG TAB PO SCH ×4 (09:13→19:38)
[2021-10-22] MEDS: PREGABALIN 75 MG CAP PO SCH ×2 (09:13→19:38)
[2021-10-22] MEDS: CLOPIDOGREL 75 MG TAB PO SCH (09:13)
[2021-10-22] MEDS: amLODIPine 5 MG TAB PO SCH ×2 (09:13→19:38)
[2021-10-22] MEDS: LOSARTAN 50 MG TAB PO SCH ×2 (09:13→19:38)
[2021-10-22] MEDS: PANTOPRAZOLE 40 MG/10 ML VIAL IVP SCH (09:13)
[2021-10-22] MEDS: hydrALAZINE HCL 50 MG TAB PO SCH ×3 (09:13→19:38)
[2021-10-22] MEDS: CHOLESTYRAMINE (WITH SUGAR) 4 GM PACKET PO SCH ×2 (09:14→17:38)
[2021-10-22] MEDS: FOLIC ACID-VIT B COMPLEX-VIT C 1 CAP PO SCH (09:16)
[2021-10-22] MEDS: METOPROLOL SUCCINATE (ER) 100 MG TAB.ER.24H PO SCH (09:16)
[2021-10-22] MEDS: DULoxetine HCL 30 MG CAPSULE.DR PO SCH (09:17)
[2021-10-22] MEDS: CHLORHEXIDINE GLUCONATE 15 ML CUP MUCOUS MEM SCH ×2 (09:18→19:39)
--- NOTE | 2021-10-22 10:01 | CDI ---
Documentation Clarification Form Date: 10/22/2021 09:51:16 AM From: Lindsey KrishnanJOANNE moreland, CCDS Admit Date: 10/14/2021 01:53:00 AM Patient Name: Sharon Singh Visit Number: [id number] Discharge Date: ATTENTION: The Clinical Documentation Specialists (CDI) and [facility] Coding Staff appreciate your assistance in clarifying documentation. Please respond to the clarification below the line at the bottom and electronically sign. The CDI & [facility] Coding staff will review the response and follow-up if needed. Please note: Queries are made part of the Legal Health Record. If you have any questions, please contact the author of this message via ITS. Dr. Sergo Zambrano. Sheet: Unspecified anemia is documented in the 10/13 ED Note and the 10/14 History & Physical and subsequent documentation as Acute on Chronic Anemia without further specificity. Additional specificity regarding the [type, acuity] of anemia is requested. History/Risk Factors per the 10/14 H/P: Asthma, CHF, COPD, CVA/TIA, DM II on oral meds, DVT, GERD, GI Bleed, Hyperlipidemia, Hypertension. Hospital admission 08/01/2020 with Ascites, ESRD, Cirrhosis, Elevated liver enzymes, Cholestatic Liver, Chronic Pruritis, Acute on Chronic Anemia, IBS and Gastroparesis, Smoker. Clinical indicators: Presented to the ED on 10/13 with abdominal pain, Nausea, Vomiting and Diarrhea; missed hemodialysis. Admitted with Abdominal Pain. Hemoglobin: 10/13: 10.9. 10/16: 10.3; 10/18: 10.0; 10/19: 9.6; 10/20: 9.1; 10/21: 8.6; 10/22: 9.4 Hematocrit: 10/13: 32.3; 10/16: 31.5; 10/18: 31.0, 29.3; 10/19: 27.4; 10/20: 26.2; 10/21: 24.7; 10/22: 27.7 Treatment 10/13: IV Zofran 4 mg x1, IV Reglan 10 mg x1, IV Morphine 4 mg x3, po Tylenol. 10/15: IV Rocephin, IV Heparin drip 10/18: Intubated, on vent secondary to Cardiac Arrest. INH Duoneb, IV Aztreonam 10/19: IV Vancomycin, IV Flagyl, IV Aztreonam Unknown home meds. Please clarify the type and acuity of anemia: [ ] Chronic blood loss anemia [ ] Iron deficiency anemia [ ] Hemolytic anemia [ ] Drug induced anemia [ ] Anemia of chronic kidney disease [ ] Unable to determine [ ] Other, please specify (Template Last Revised: December 2020) Unable to determine MTDD
--- NOTE | 2021-10-22 10:04 | P.PN ---
Subjective Progress Note Date: 10/22/21 This is a 51-year-old female patient with a known history of end-stage renal disease receiving hemodialysis Thursday. Has has history of coronary artery disease with previous stent placement and coronary artery bypass grafting, abdominal aortic aneurysm measuring 4.2 cm, factor V deficiency, CVA/TIA, DVT T, diabetes mellitus, hyperlipidemia, hypertension. She had moved here approximate 6 weeks ago from [place]. No primary care provider. She presented to the hospital back on 10/13/2021 with complaints of abdominal discomfort and nausea and vomiting. She had missed some dialysis prior. She has been undergoing workup regarding her symptoms. At 145 this morning of CODE BOBO was called on the patient she was found to be in a cardiac arrest after being found not breathing and she received CPR for approximately 1 minute. She is intubated and transferred to the intensive care unit. He is seen today in consultation. She is currently intubated on mechanical ventilator at assist control mode at a rate of 18, positive on 400, FiO2 50% and a PEEP of 5. Initial blood gases revealed a PaO2 of 330, pCO2 35 and a pH of 7.25 and that was on 100% FiO2. She is sedated on propofol at 30 mcg/mg/m. She is on norepinephrine at 11 mcg/m. 0.9 normal saline at 75 mL per hour. She is receiving hemodialysis currently. White count 20.8. Hemoglobin 10.0. Platelets 148. Sodium 136. Potassium 5.8. Bicarbonate 13. BUN 61. Creatinine 7.68. Glucose 305. AST 1393. ALT 511. Alk phos 237. Troponins 3.2. Pro-calcitonin 21.2. Up from 0.18 Urine culture positive for E. coli. Sputum culture pending. Chest x-ray reveals patchy retrocardiac atelectasis/infiltrate, stable. She is on antibiotics in the form of Levaquin. Bronchodilators. Heparin for DVT prophylaxis. On 10/19/2021 The patient remains on mechanical ventilator. She was intubated yesterday. She is on the volume assist control mode, rate 18, tidal volume 400, FiO2 50%, and a PEEP of 5. Arterial blood gases show pO2 121, pCO2 43, and a pH is 7.34. The FiO2 was reduced to 40%. The patient's on propofol at 35 mcg/kg/m, norepinephrine at 4 mcg/m, saline at 20 mL an hour, and Nepro at 31 mL an hour, which is goal. We will attempt a daily interruption of sedation today, with a spontaneous breathing trial with pressure support of 5, and CPAP of 5. Yesterday, we attempted a R line, both in the right radial site, and right femoral artery site, and was unsuccessful at both sites. White count 14.8, hemoglobin 9.6, hematocrit 27.4, and platelet count is 172,000. Sodium 135, potassium 4, chlorides 102, CO2 21, anion gap 12, BUN 40, creatinine 4.94. Urine culture is positive for Escherichia coli. Blood cultures positive for staph epidermidis. Chest x-ray today, is unchanged, and shows mild cardiomegaly, and stable left basilar consolidation. The patient is currently on aztreonam and Flagyl. The patient is seen today 10/20/2021 in follow-up in the intensive care unit. She remains intubated and on mechanical ventilator. Current mode of assist control with a rate of 18, tidal volume 400, FiO2 40% and a PEEP of 5. Morning blood gases revealed a PaO2 of 90, pCO2 38, pH 7.39. She has been slow to wake up. She's been off sedation for several hours without much improvement. She w as trialed on pressure support of 5 and a CPAP of 5 50% FiO2 however she was having Ward-Feng respirations. Not following any simple commands. Not making good eye contact. She is recently sedated to continue with daily interruption as sedation and weaning trials tomorrow. She may do better after hemodialysis tomorrow. Chest x-ray continues to revealed bilateral patchy opacities with mild interstitial edema and sputum culture reveals no growth. Urine culture is positive for E. coli. Blood culture revealed Staphylococcus epidermidis. White count 10.2. Hemoglobin 9.1. Platelets 172. Sodium 133. Potassium 4.2. Bicarb 19. BUN 50. Creatinine 5.86. Glucose 142. AST 565. ALT 510. Alk phos 216. She is continued on DuoNeb inhalations. Antibiotics in the form of vancomycin and aztreonam. Continued on Flagyl. Heparin for DVT prophylaxis. On today's evaluation of 10/21/2021, the patient is being seen for a follow-up. This patient has multiple medical problems and comorbidities as mentioned earlier in the records. The patient got transferred to the intensive care unit following an acute cardiac arrest. The patient was found to be in a PEA rhythm and the patient was resuscitated according to the ACLS protocol, intubated and placed on a mechanical ventilator and following that the patient got transferred to the ICU. For now, the patient is receiving sedation holidays. The patient this morning is back on sedation and propofol is running at 25 mcg/kg per minute and the dose has been weaned down to 90 g as part of a sedation holiday which is being done on a daily basis. The patient remains on a mechanical ventilator. At this point in time, the patient is on assist control mode at the rate of 18, tidal volume of 400, FiO2 of 40% with a PEEP of 5. Chest x-ray and blood gases have been noted. Note that the patient was not following commands and she was not responsive during earlier sedation holidays. As such, the patient was kept on a mechanical ventilator. The chest x-ray shows no significant abnormalities. There is some cardiomegaly. No airspace disease. ET tube needs to be pushed down by around 1 cm. This that She has ESRD disease and she has been maintained on hemodialysis. Urine culture was positive for E. coli and the patient had a possible culture for staph epidermidis. The patient for now is on a combination of aztreonam, vancomycin and Flagyl. Hemodynamically stable on no pressors. Chest x-ray Shows cardiomegaly and ET tube is in location. The patient also has a permacath in the right SC vein. OG tube is also in place. Initial progress. Procal Level was at 0.18 and a subsequent level came back at 21.2. The COVID-19 testing was negative by PCR. The abdominal ultrasound showed a small amount of intra-abdominal ascites and diffuse fatty infiltration and underlying hepatocellular disease. Previous echocardiogram from October 2020 showed diastolic heart failure, RV was severely enlarged, severe tricuspid regu rgitation, PEA pressure was 46 and there was IVC dilatation consistent with volume overload. She has minimal UO and she is afebrile the patient remains on low-dose norepinephrine infusion which is currently running at 0.03 mcg/kg per minute. IV fluids are currently at KVO. She is receiving enteral feeding for nutritional support and she is currently on Nepro at the rate of 31 mL an hour. The last hemodialysis session was on 10/18/2021 and the patient is going to undergo hemodialysis today. 10/22/2021, the patient is being seen for a follow-up. Noted the patient is post cardiac arrest. The patient is still intubated on a mechanical ventilator. Clinically, the patient is much more awake. I took her off the sedation yesterday. She did wake up when she was following some simple commands. Overnight, I kept on Precedex which is still running at the rate of 0.5 g. She was able to arouse and she was able to follow some simple commands. She was able to squeeze my hand and she was able to be getting her toes upon demand. Meanwhile, an echo cardiogram was done yesterday and showed evidence of preserved LV function without any significant valvular heart disease. There was evidence of severe pulmonary hypertension which is essentially chronic. CAT scan of the brain was also done yesterday that showed mild degenerative changes with some nonspecific white matter changes and a possibility of an acute/subacute ischemia involving the left frontal lobe cannot be completely excluded. In any rate, the patient is moving all 4 extremities. The patient is still is on a mechanical ventilator. This morning, she is an assist-control mode at the rate of 18, with a tidal volume of 400 and FiO2 of 40% with a PEEP of 5. No significant changes on EKG and ET tube remains in good location. The blood gas shows a pH of 7.43 with a pCO2 of 33 and pO2 of 74. The patient underwent hemodialysis yesterday. Creatinine today is at 4.14 with a sodium level of 136. Serum bicarb is at 17 with anion gap of 18. The patient remains on broad-spectrum antibiotics. The patient is on a combination of aztreonam, vancomycin and Flagyl. The patient is on no pressors for now. She was running a low dose norepinephrine infusion which was discontinued yesterday. She is still on Nepro for enteral feeding and nutritional support which she is able to tolerate without any major difficulties. Her last session of hemodialysis was yesterday and that was without any complications. She remains afebrile. Cultures are showing E. coli in the urine and staph epidermidis in the blood and the repeat cultures were essentially negative. Objective - Vital Signs Vital signs: Vital Signs Temp 98.5 F 10/22/21 04:00 Pulse 78 10/22/21 07:57 Resp 20 10/22/21 07:00 BP 134/72 10/22/21 07:00 Pulse Ox 97 10/22/21 07:00 Intake & Output 10/21/21 10/22/21 10/22/21 18:59 06:59 18:59 Intake Total 773.916 852.113 55 Output Total 2014 10 0 Balance -1240.084 842.113 55 Weight 80 kg 78.2 kg Intake: IV 240 240 20 Sodium Chloride 0.9% 1, 240 240 20 000 ml @ 20 mls/hr IV . Q24H [facility] Rx#:[id number] Intake, IV Titration 243.916 137.113 Amount Dexmedetomidine/0.9% NaCl 105.766 (Pmx) 400 mcg In Empty Bag 1 bag @ 0.2 MCG/KG/HR 4 mls/hr IV .Q24H [facility] Rx #:[id number] Norepinephrine 4 mg In 75.263 Sodium Chloride 0.9% 250 ml @ 0.05 MCG/KG/MIN 14. 69 mls/hr IV .[id number] [facility] Rx#:[id number] metroNIDAZOLE-NS PMX 500 100 mg In Saline 1 100ml.bag @ 100 mls/hr IVPB Q8HR@ 0400,1200,2000 [facility] Rx#: [id number] propofoL 1,000 mg In 68.653 31.347 Empty Bag 1 bag @ Titrate IV .Q0M [facility] Rx#: [id number] Tube Feeding 260 385 35 Other 30 90 Output: Urine 14 10 0 Hemodialysis 2000 Other: Voiding Method Indwelling Catheter Indwelling Catheter # Bowel Movements 1 - Exam GENERAL EXAM: 51-year-old female patient, and intubated on mechanical ventilator, off sedation, slow to respond, following simple commands, weak ventilatory effort. HEAD: Normocephalic. EYES: Normal reaction of pupils, equal size. NOSE: Clear with pink turbinates. THROAT: Endotracheal and orogastric tube secured in place. No erythema or exudates. NECK: No masses, no JVD. CHEST: No chest wall deformity. LUNGS: Equal air entry with few scattered rhonchi bilaterally. CVS: S1 and S2 normal with no audible murmur, regular rhythm. ABDOMEN: No hepatosplenomegaly, normal bowel sounds, no guarding or rigidity. SPINE: No scoliosis or deformity SKIN: No rashes CENTRAL NERVOUS SYSTEM: Not following simple commands off sedation, tone is normal in all 4 extremities. EXTREMITIES: There is no peripheral edema. No clubbing, no cyanosis. Peripheral pulses are intact. - Labs CBC & Chem 7: 10/22/21 03:06 10/22/21 03:06 Labs: Abnormal Lab Results - Last 24 Hours (Table) 10/21/21 10/21/21 10/21/21 Range/Units 03:04 11:28 16:16 WBC (3.8-10.6) k/uL RBC (3.80-5.40) m/uL Hgb (11.4-16.0) gm/dL Hct (34.0-46.0) % MCV (80.0-100.0) fL RDW (11.5-15.5) % Neutrophils # (1.3-7.7) k/uL Lymphocytes # (1.0-4.8) k/uL ABG pCO2 (35-45) mmHg ABG pO2 (83-108) mmHg Sodium (137-145) mmol/L Carbon Dioxide (22-30) mmol/L BUN (7-17) mg/dL Creatinine (0.52-1.04) mg/dL Glucose (74-99) mg/dL POC Glucose (mg/dL) 138 H 110 H (75-99) mg/dL AST (14-36) U/L ALT (4-34) U/L Alkaline Phosphatase (38-126) U/L Albumin (3.5-5.0) g/dL Procalcitonin 65.40 H (0.02-0.09) ng/mL 10/21/21 10/22/21 10/22/21 Range/Units 23:59 03:06 03:06 WBC 12.8 H (3.8-10.6) k/uL RBC 3.46 L (3.80-5.40) m/uL Hgb 9.4 L (11.4-16.0) gm/dL Hct 27.7 L (34.0-46.0) % MCV 79.8 L (80.0-100.0) fL RDW 16.3 H (11.5-15.5) % Neutrophils # 11.2 H (1.3-7.7) k/uL Lymphocytes # 0.6 L (1.0-4.8) k/uL ABG pCO2 (35-45) mmHg ABG pO2 (83-108) mmHg Sodium 136 L (137-145) mmol/L Carbon Dioxide 17 L (22-30) mmol/L BUN 37 H (7-17) mg/dL Creatinine 4.14 H (0.52-1.04) mg/dL Glucose 140 H (74-99) mg/dL POC Glucose (mg/dL) 130 H (75-99) mg/dL AST 273 H (14-36) U/L ALT 322 H (4-34) U/L Alkaline Phosphatase 242 H (38-126) U/L Albumin 3.2 L (3.5-5.0) g/dL Procalcitonin (0.02-0.09) ng/mL 10/22/21 10/22/21 10/22/21 Range/Units 05:15 06:44 06:45 WBC (3.8-10.6) k/uL RBC (3.80-5.40) m/uL Hgb (11.4-16.0) gm/dL Hct (34.0-46.0) % MCV (80.0-100.0) fL RDW (11.5-15.5) % Neutrophils # (1.3-7.7) k/uL Lymphocytes # (1.0-4.8) k/uL ABG pCO2 33 L (35-45) mmHg ABG pO2 74 L (83-108) mmHg Sodium (137-145) mmol/L Carbon Dioxide (22-30) mmol/L BUN (7-17) mg/dL Creatinine (0.52-1.04) mg/dL Glucose (74-99) mg/dL POC Glucose (mg/dL) 265 H 264 H (75-99) mg/dL AST (14-36) U/L ALT (4-34) U/L Alkaline Phosphatase (38-126) U/L Albumin (3.5-5.0) g/dL Procalcitonin (0.02-0.09) ng/mL Microbiology - Last 24 Hours (Table) 10/19/21 16:39 Blood Culture - Preliminary Blood No Growth after 48 hours Assessment and Plan Plan: 1 Acute cardiopulmonary arrest requiring intubation mechanical ventilatory support on 10/18/2021. The patient was found to be in PEA cardiac arrest, and she required epinephrine times one, 1 round of CPR with return of spontaneous circulation with continued agonal respirations. The echocardiogram for now is showing severe pulmonary hypertension. Normal LV function. No further bouts of cardiac arrhythmias. The patient is able to arouse and she was able to follow some simple commands. I have a currently on Precedex. She is also off pressors. 2 Acute hypoxemic respiratory failure secondary to above, chest x-ray showing cardiomegaly 3 Acute shock liver , stable LFTs, patient has massive ascites 4 End-stage renal disease on hemodialysis Thursday, last bout that hemodialysis was yesterday 5 History of coronary disease with previous coronary bypass grafting, previous stent placement 6 Depression being followed by psychiatric services this admission and had been refusing medications and treatment 7 COPD 8 Chronic and ongoing tobacco dependence 9 History of abdominal aortic aneurysm , 4.8 cm followed up by vascular surgery 10 History of factor V deficiency , maintained on on outpatient basis 12 Hyperlipidemia 13 Hypertension 14 History of cirrhosis, with secondary ascites 15 Peripheral vascular disease 16 History of bipolar disease 14 Urinary tract infection and dairy to E. coli 15 history of irritable bowel syndrome/gastroparesis with secondary abdominal pain 16 history of chronic diastolic heart failure with severe pulmonary hypertension based on echocardiogram that was done in October 17 lumbar radiculopathy 18 chronic claudication Plan: Wean off Precedex Check weaning parameters Give the patient is point is breathing trial in anticipation for extubation today CAT scan of the head was noted Echocardiogram was noted Continue same antibiotic coverage Patient is currently off pressors Give the patient 2 A of sodium bicarbonate. A bicarb of 17 in anticipation for extubation Continue enteral feeding for nutritional support This is critical and prognosis poor baseline above-mentioned comorbidities. We'll continue to follow. This evaluation was done and more than 30 minutes. Possible extubation today Time with Patient: Greater than 30 Time with Patient: Greater than 30
[2021-10-22] MEDS ORDERED: SODIUM BICARB 8.4% 50 ML SYR (1 MEQ/ML) IV STA (10:09)
[2021-10-22] MEDS: NOREPINEPHRINE 4 MG in SODIUM CHLORIDE 0.9% 250 ML IV SCH (10:53)
[2021-10-22 11:33] LABS: Glucose,Whole Blood 172 mg/dL (75-99)
--- NOTE | 2021-10-22 11:44 | PN ---
PROGRESS NOTE Patient is seen for followup for end-stage renal disease. There are plans for possible extubation today. Patient has occasionally followed commands. On examination, blood pressure 121/61, heart rate 69 per minute. She is afebrile. EXAMINATION OF THE HEART: S1 and S2. EXAMINATION OF LUNGS: Bilateral breath sounds are heard. Abdomen is soft, non-tender. Examination of lower extremities shows no evidence of edema. Labs show sodium 136, potassium 4.5, chloride 101, CO2 17, BUN 37, creatinine 4.1, hemoglobin 9.4 g/dL. ASSESSMENT: 1. End-stage renal disease, on hemodialysis on a Thursday, Thursday, Thursday schedule. Will plan for hemodialysis in a.m. 2. Metabolic acidosis, status post IV push bicarb. Will dialyze on a higher bicarb bath tomorrow. 3. Acute hypoxic respiratory failure. 4. Status post cardiac arrest with no evidence of myocardial infarction. 5. Hypoglycemia, improved. Currently blood sugar is high. 6. Acute shock liver. 7. History of chronic diastolic heart failure with severe pulmonary hypertension. PLAN: Hemodialysis in a.m. Will adjust the bicarb bath on the dialysis tomorrow. MMODL / IJN: [id number] /
--- NOTE | 2021-10-22 14:55 | P.PN ---
Subjective Progress Note Date: 10/22/21 CHIEF COMPLAINT: Abdominal pain HISTORY OF PRESENT ILLNESS: The patient is a 51-year-old female with chronic abdominal pain. She had cardiopulmonary arrest and is currently in the ICU intubated. She is off the Levophed. She is undergoing weaning trial on the vent today. Afebrile. WBC 2.8 hemoglobin 9.4 PHYSICAL EXAM: VITAL SIGNS: Reviewed GENERAL: Well-developed in no acute distress. HEENT: No sclera icterus. Extraocular movements grossly intact. Moist buccal mucosa. Head is atraumatic, normocephalic. Hears conversational speech. No nasal drainage. NECK: Supple without lymphadenopathy. CHEST: Non-labored respirations and equal bilateral excursions. CARDIOVASCULAR: Palpable 2+ radial pulses. ABDOMEN: Soft. distended MUSCULOSKELETAL: No clubbing or cyanosis. NEUROLOGIC: No focal or lateralizing signs. Cranial nerves II through XII grossly intact. SKIN: Well perfused. Good skin turgor. ASSESSMENT: 1. Abdominal pain 2. ESRD, dialysis dependent 3. Acute cardiopulmonary arrest PLAN: -Continue ICU management -Continue supportive care -Vent management per care service Physician Heater Operator Helper note has been reviewed by physician. Signing provider agrees with the documented findings, assessment, and plan of care. Objective - Vital Signs Vital signs: Vital Signs Temp 99.4 F 10/22/21 08:00 Pulse 70 10/22/21 11:31 Resp 20 10/22/21 11:30 BP 133/66 10/22/21 11:30 Pulse Ox 97 10/22/21 11:30 Intake & Output 10/21/21 10/22/21 10/22/21 18:59 06:59 18:59 Intake Total 773.916 852.113 591.534 Output Total 2014 08 0 Balance -1240.084 842.113 591.534 Weight 80 kg 78.2 kg Intake: IV 240 240 100 Sodium Chloride 0.9% 1, 240 240 100 000 ml @ 20 mls/hr IV . Q24H [facility] Rx#:[id number] Intake, IV Titration 243.916 137.113 161.534 Amount Dexmedetomidine/0.9% NaCl 105.766 61.534 (Pmx) 400 mcg In Empty Bag 1 bag @ 0.2 MCG/KG/HR 4 mls/hr IV .Q24H [facility] Rx #:[id number] Norepinephrine 4 mg In 75.263 Sodium Chloride 0.9% 250 ml @ 0.05 MCG/KG/MIN 14. 69 mls/hr IV .[id number] [facility] Rx#:[id number] metroNIDAZOLE-NS PMX 500 100 100 mg In Saline 1 100ml.bag @ 100 mls/hr IVPB Q8HR@ 0400,1200,2000 [facility] Rx#: [id number] propofoL 1,000 mg In 68.653 31.347 Empty Bag 1 bag @ Titrate IV .Q0M [facility] Rx#: [id number] Tube Feeding 260 385 210 Other 30 90 120 Output: Urine 14 10 0 Hemodialysis 1999 Other: Voiding Method Indwelling Catheter Indwelling Catheter Incontinent # Bowel Movements 1 - Labs CBC & Chem 7: 10/22/21 03:06 10/22/21 03:06 Labs: Abnormal Lab Results - Last 24 Hours (Table) 10/21/21 10/21/21 10/22/21 Range/Units 16:16 23:59 03:06 WBC 12.8 H (3.8-10.6) k/uL RBC 3.46 L (3.80-5.40) m/uL Hgb 9.4 L (11.4-16.0) gm/dL Hct 27.7 L (34.0-46.0) % MCV 79.8 L (80.0-100.0) fL RDW 16.3 H (11.5-15.5) % Neutrophils # 11.2 H (1.3-7.7) k/uL Lymphocytes # 0.6 L (1.0-4.8) k/uL ABG pCO2 (35-45) mmHg ABG pO2 (83-108) mmHg Sodium (137-145) mmol/L Carbon Dioxide (22-30) mmol/L BUN (7-17) mg/dL Creatinine (0.52-1.04) mg/dL Glucose (74-99) mg/dL POC Glucose (mg/dL) 110 H 130 H (75-99) mg/dL AST (14-36) U/L ALT (4-34) U/L Alkaline Phosphatase (38-126) U/L Albumin (3.5-5.0) g/dL 10/22/21 10/22/21 10/22/21 Range/Units 03:06 05:15 06:44 WBC (3.8-10.6) k/uL RBC (3.80-5.40) m/uL Hgb (11.4-16.0) gm/dL Hct (34.0-46.0) % MCV (80.0-100.0) fL RDW (11.5-15.5) % Neutrophils # (1.3-7.7) k/uL Lymphocytes # (1.0-4.8) k/uL ABG pCO2 33 L (35-45) mmHg ABG pO2 74 L (83-108) mmHg Sodium 136 L (137-145) mmol/L Carbon Dioxide 17 L (22-30) mmol/L BUN 37 H (7-17) mg/dL Creatinine 4.14 H (0.52-1.04) mg/dL Glucose 140 H (74-99) mg/dL POC Glucose (mg/dL) 265 H (75-99) mg/dL AST 273 H (14-36) U/L ALT 322 H (4-34) U/L Alkaline Phosphatase 242 H (38-126) U/L Albumin 3.2 L (3.5-5.0) g/dL 10/22/21 10/22/21 Range/Units 06:45 11:32 WBC (3.8-10.6) k/uL RBC (3.80-5.40) m/uL Hgb (11.4-16.0) gm/dL Hct (34.0-46.0) % MCV (80.0-100.0) fL RDW (11.5-15.5) % Neutrophils # (1.3-7.7) k/uL Lymphocytes # (1.0-4.8) k/uL ABG pCO2 (35-45) mmHg ABG pO2 (83-108) mmHg Sodium (137-145) mmol/L Carbon Dioxide (22-30) mmol/L BUN (7-17) mg/dL Creatinine (0.52-1.04) mg/dL Glucose (74-99) mg/dL POC Glucose (mg/dL) 264 H 172 H (75-99) mg/dL AST (14-36) U/L ALT (4-34) U/L Alkaline Phosphatase (38-126) U/L Albumin (3.5-5.0) g/dL Microbiology - Last 24 Hours (Table) 10/19/21 16:39 Blood Culture - Preliminary Blood No Growth after 48 hours
[2021-10-22 18:32] LABS: Glucose,Whole Blood 151 mg/dL (75-99)
[2021-10-22] MEDS: SODIUM CHLORIDE 0.9% 1,000 ML IV SCH (19:41)
[2021-10-22] MEDS ORDERED: IPRATROPIUM-ALBUTEROL 3 ML NEB INHALATION PRN (20:54)
[2021-10-22] MEDS ORDERED: VANCOMYCIN 1,500 MG in SODIUM CHLORIDE 0.9% 250 ML IVPB ONE (21:00)
--- NOTE | 2021-10-22 22:56 | PN ---
PROGRESS NOTE DATE OF SERVICE: 10/22/2021 REASON FOR FOLLOWUP: UTI and possible aspiration pneumonitis and bacteremia. INTERVAL HISTORY: Patient is afebrile. The patient is hemodynamically stable, breathing comfortably post extubation. No vomiting, diarrhea, abdominal pain. EXAMINATION: Blood pressure 102/55 with a pulse of 84, temperature is 97.8. He is 93% on 2 L of high flow oxygen. General description is a middle-aged female lying in bed in no distress. Respiratory system: Unlabored breathing, decreased intensity of breath sounds. Heart S1, S2. Regular rate and rhythm. Abdomen soft, no tenderness. LABS: Hemoglobin is 9.4, white count 12.8, creatinine is 4.14. DIAGNOSTIC IMPRESSION AND PLAN: 1. Patient with E coli urinary tract infection in this patient have a cardiac arrest, concern for possible aspiration pneumonitis. Sputum has been negative. The patient did have is covered with Azactam and Flagyl. 2. Patient Staph epi bacteremia. Repeat blood culture negative and remains negative. Vanco, dose to be discontinued. Continue supportive care. MMODL / IJN: [id number] /
[2021-10-22 23:48] LABS: Glucose,Whole Blood 172 mg/dL (75-99)
--- NOTE | 2021-10-22 23:53 | PN ---
PROGRESS NOTE -[place] white female after cardiopulmonary arrest. Aspiration pneumonitis and bacteremia. She has been afebrile post extubation. She is confused. She does talk, but very confused. Blood pressure is 102/55, temperature 97.8, pulse 84, O2 93 on 2 L. Cardiovascular S1, S2. Lungs clear. Abdomen is distended. Hematology negative Homans. ASSESSMENT: 1. Escherichia coli urinary tract infection. 2. Status post cardiac arrest. 3. End-stage renal disease. 4. Staphylococcus epidermidis bacteremia. Repeat blood cultures negative. Remains negative. Vancomycin to be discontinued. Covered with Azactam and Flagyl for UTI. Cardiac arrest, end-stage renal disease being treated by equipment associate in ICU. She was also seen by Surgery for abdominal pain. She was weaned off Levophed, weaned off the vent. White count is 2.8, hemoglobin is 9.4. Continue current treatments. Encephalopathy secondary to multifactorial systems. Prognosis is very guarded. MMODL / IJN: [id number] /
[2021-10-23] MEDS: NOREPINEPHRINE 4 MG in SODIUM CHLORIDE 0.9% 250 ML IV SCH ×5 (03:15→20:32)
[2021-10-23] MEDS: AZTREONAM 1 GM in SODIUM CHLORIDE 0.9% 50 ML IVPB SCH ×2 (03:57→16:57)
[2021-10-23] MEDS: metroNIDAZOLE-NS PMX 500 MG in SALINE 1 100ML.BAG IVPB SCH ×3 (03:57→20:47)
[2021-10-23 04:20] LABS: Anisocytosis Slight; Basophils % (A) 0 %; Eosinophils # (A) 0.1 k/uL (0-0.7); Eosinophils % (A) 1 %; HCT 24.9 % (34.0-46.0); HGB 8.7 gm/dL (11.4-16.0); Lymphocytes # (A) 0.8 k/uL (1.0-4.8); Lymphocytes % (A) 6 %; MCH 28.8 pg (25.0-35.0); MCHC 34.9 g/dL (31.0-37.0); MCV 82.7 fL (80.0-100.0); Mean Platelet Volume 9.5; Monocytes # (A) 0.7 k/uL (0-1.0); Monocytes % (A) 5 %; Neutrophils # (A) 10.5 k/uL (1.3-7.7); Neutrophils % (A) 87 %; Platelet Count 157 k/uL (150-450); RBC 3.02 m/uL (3.80-5.40); RDW 16.7 % (11.5-15.5); WBC 12.2 k/uL (3.8-10.6)
[2021-10-23 04:31] LABS: Albumin 3.5 g/dL (3.5-5.0); Calcium 8.7 mg/dL (8.4-10.2); Total Bilirubin 2.6 mg/dL (0.2-1.3); Total Protein 7.6 g/dL (6.3-8.2)
[2021-10-23] MEDS: INSULIN ASPART (NovoLOG) 100 UNIT/ML VIAL SQ SCH ×3 (06:24→18:57)
[2021-10-23] MEDS: CALCIUM ACETATE 667 MG TAB PO SCH ×2 (06:27→18:56)
--- NOTE | 2021-10-23 07:55 | XR ---
EXAMINATION TYPE: XR chest 1V portable DATE OF EXAM: 10/23/2021 COMPARISON: 10/22/2021 HISTORY: SOB, Follow Up FINDINGS: Endotracheal and NG tubes have been removed. Central venous lines are unchanged. No change in bibasilar opacities. Stable appearance of the cardio-mediastinal structures at this time. Pleural effusion unchanged. IMPRESSION: 1. Stable portable chest. Clinical correlation and follow up until resolution is recommended.
[2021-10-23] MEDS: IPRATROPIUM-ALBUTEROL 3 ML NEB INHALATION SCH ×4 (07:57→20:09)
[2021-10-23] MEDS: PANTOPRAZOLE 40 MG/10 ML VIAL IVP SCH (08:44)
[2021-10-23] MEDS: HEPARIN SODIUM,PORCINE/PF 5,000 UNIT/0.5 ML SYRINGE SQ SCH ×2 (09:21→15:04)
[2021-10-23] MEDS: CHLORHEXIDINE GLUCONATE 15 ML CUP MUCOUS MEM SCH (09:44)
[2021-10-23] MEDS: amLODIPine 5 MG TAB PO SCH (09:44)
[2021-10-23] MEDS: DULoxetine HCL 30 MG CAPSULE.DR PO SCH (09:45)
[2021-10-23] MEDS: LOSARTAN 50 MG TAB PO SCH (09:45)
[2021-10-23] MEDS: CHOLESTYRAMINE (WITH SUGAR) 4 GM PACKET PO SCH ×2 (09:45→18:56)
[2021-10-23] MEDS: PREGABALIN 75 MG CAP PO SCH (09:45)
[2021-10-23] MEDS: METOPROLOL SUCCINATE (ER) 100 MG TAB.ER.24H PO SCH (09:45)
[2021-10-23] MEDS: LOPERAMIDE 2 MG CAP PO SCH ×3 (09:45→18:57)
[2021-10-23] MEDS: CLOPIDOGREL 75 MG TAB PO SCH (09:45)
[2021-10-23] MEDS: FOLIC ACID-VIT B COMPLEX-VIT C 1 CAP PO SCH (09:45)
[2021-10-23] MEDS: DICYCLOMINE 20 MG TAB PO SCH ×3 (09:45→18:57)
[2021-10-23] MEDS: hydrALAZINE HCL 50 MG TAB PO SCH ×2 (09:45→15:04)
--- NOTE | 2021-10-23 10:02 | P.PN ---
Subjective Progress Note Date: 10/23/21 This is a 51-year-old female patient with a known history of end-stage renal disease receiving hemodialysis Thursday. Has has history of coronary artery disease with previous stent placement and coronary artery bypass grafting, abdominal aortic aneurysm measuring 4.2 cm, factor V deficiency, CVA/TIA, DVT T, diabetes mellitus, hyperlipidemia, hypertension. She had moved here approximate 6 weeks ago from [place]. No primary care provider. She presented to the hospital back on 10/13/2021 with complaints of abdominal discomfort and nausea and vomiting. She had missed some dialysis prior. She has been undergoing workup regarding her symptoms. At 145 this morning of CODE BOBO was called on the patient she was found to be in a cardiac arrest after being found not breathing and she received CPR for approximately 1 minute. She is intubated and transferred to the intensive care unit. He is seen today in consultation. She is currently intubated on mechanical ventilator at assist control mode at a rate of 18, positive on 400, FiO2 50% and a PEEP of 5. Initial blood gases revealed a PaO2 of 330, pCO2 35 and a pH of 7.25 and that was on 100% FiO2. She is sedated on propofol at 30 mcg/mg/m. She is on norepinephrine at 11 mcg/m. 0.9 normal saline at 75 mL per hour. She is receiving hemodialysis currently. White count 20.8. Hemoglobin 10.0. Platelets 148. Sodium 136. Potassium 5.8. Bicarbonate 13. BUN 61. Creatinine 7.68. Glucose 305. AST 1393. ALT 511. Alk phos 237. Troponins 3.2. Pro-calcitonin 21.2. Up from 0.18 Urine culture positive for E. coli. Sputum culture pending. Chest x-ray reveals patchy retrocardiac atelectasis/infiltrate, stable. She is on antibiotics in the form of Levaquin. Bronchodilators. Heparin for DVT prophylaxis. On 10/19/2021 The patient remains on mechanical ventilator. She was intubated yesterday. She is on the volume assist control mode, rate 18, tidal volume 400, FiO2 50%, and a PEEP of 5. Arterial blood gases show pO2 121, pCO2 43, and a pH is 7.34. The FiO2 was reduced to 40%. The patient's on propofol at 35 mcg/kg/m, norepinephrine at 4 mcg/m, saline at 20 mL an hour, and Nepro at 31 mL an hour, which is goal. We will attempt a daily interruption of sedation today, with a spontaneous breathing trial with pressure support of 5, and CPAP of 5. Yesterday, we attempted a R line, both in the right radial site, and right femoral artery site, and was unsuccessful at both sites. White count 14.8, h emoglobin 9.6, hematocrit 27.4, and platelet count is 172,000. Sodium 135, potassium 4, chlorides 102, CO2 21, anion gap 12, BUN 40, creatinine 4.94. Urine culture is positive for Escherichia coli. Blood cultures positive for staph epidermidis. Chest x-ray today, is unchanged, and shows mild car diomegaly, and stable left basilar consolidation. The patient is currently on aztreonam and Flagyl. The patient is seen today 10/20/2021 in follow-up in the intensive care unit. She remains intubated and on mechanical ventilator. Current mode of assist control with a rate of 18, tidal volume 400, FiO2 40% and a PEEP of 5. Morning blood gases revealed a PaO2 of 90, pCO2 38, pH 7.39. She has been slow to wake up. She's been off sedation for several hours without much improvement. She was trialed on pressure support of 5 and a CPAP of 5 50% FiO2 however she was having Ward-Feng respirations. Not following any simple commands. Not making good eye contact. She is recently sedated to continue with daily interruption as sedation and weaning trials tomorrow. She may do better after hemodialysis tomorrow. Chest x-ray continues to revealed bilateral patchy opacities with mild interstitial edema and sputum culture reveals no growth. Urine culture is positive for E. coli. Blood culture revealed Staphylococcus epidermidis. White count 10.2. Hemoglobin 9.1. Platelets 172. Sodium 133. Potassium 4.2. Bicarb 19. BUN 50. Creatinine 5.86. Glucose 142. AST 565. ALT 510. Alk phos 216. She is continued on DuoNeb inhalations. Antibiotics in the form of vancomycin and aztreonam. Continued on Flagyl. Heparin for DVT prophylaxis. On today's evaluation of 10/21/2021, the patient is being seen for a follow-up. This patient has multiple medical problems and comorbidities as mentioned earlier in the records. The patient got transferred to the intensive care unit following an acute cardiac arrest. The patient was found to be in a PEA rhythm and the patient was resuscitated according to the ACLS protocol, intubated and placed on a mechanical ventilator and following that the patient got transferred to the ICU. For now, the patient is receiving sedation holidays. The patient this morning is back on sedation and propofol is running at 25 mcg/kg per minute and the dose has been weaned down to 90 g as part of a sedation holiday which is being done on a daily basis. The patient remains on a mechanical ventilator. At this point in time, the patient is on assist control mode at the rate of 18, tidal volume of 400, FiO2 of 40% with a PEEP of 5. Chest x-ray and blood gases have been noted. Note that the patient was not following commands and she was not responsive during earlier sedation holidays. As such, the patient was kept on a mechanical ventilator. The chest x-ray shows no significant abnormalities. There is some cardiomegaly. No airspace disease. ET tube needs to be pushed down by around 1 cm. This that She has ESRD disease and she has been maintained on hemodialysis. Urine culture was positive for E. coli and the patient had a possible culture for staph epidermidis. The patient for now is on a combination of aztreonam, vancomycin and Flagyl. Hemodynamically stable on no pressors. Chest x-ray Shows cardiomegaly and ET tube is in location. The patient also has a permacath in the right SC vein. OG tube is also in place. Initial progress. Procal Level was at 0.18 and a subsequent level came back at 21.2. The COVID-19 testing was negative by PCR. The abdominal ultrasound showed a small amount of intra-abdominal ascites and diffuse fatty infiltration and underlying hepatocellular disease. Previous echocardiogram from October 2020 showed diastolic heart failure, RV was severely enlarged, severe tricuspid regurgit ation, PEA pressure was 46 and there was IVC dilatation consistent with volume overload. She has minimal UO and she is afebrile the patient remains on low-dose norepinephrine infusion which is currently running at 0.03 mcg/kg per minute. IV fluids are currently at KVO. She is receiving enteral feeding for nutritional support and she is currently on Nepro at the rate of 31 mL an hour. The last hemodialysis session was on 10/18/2021 and the patient is going to undergo hemodialysis today. 10/22/2021, the patient is being seen for a follow-up. Noted the patient is post cardiac arrest. The patient is still intubated on a mechanical ventilator. Clinically, the patient is much more awake. I took her off the sedation yesterday. She did wake up when she was following some simple commands. Overnight, I kept on Precedex which is still running at the rate of 0.5 g. She was able to arouse and she was able to follow some simple commands. She was able to squeeze my hand and she was able to be getting her toes upon demand. Meanwhile, an echo cardiogram was done yesterday and showed evidence of preserved LV function without any significant valvular heart disease. There was evidence of severe pulmonary hypertension which is essentially chronic. CAT scan of the brain was also done yesterday that showed mild degenerative changes with some nonspecific white matter changes and a possibility of an acute/subacute ischemia involving the left frontal lobe cannot be completely excluded. In any rate, the patient is moving all 4 extremities. The patient is still is on a mechanical ventilator. This morning, she is an assist-control mode at the rate of 18, with a tidal volume of 400 and FiO2 of 40% with a PEEP of 5. No significant changes on EKG and ET tube remains in good location. The blood gas shows a pH of 7.43 with a pCO2 of 33 and pO2 of 74. The patient underwent hemodialysis yesterday. Creatinine today is at 4.14 with a sodium level of 136. Serum bicarb is at 17 with anion gap of 18. The patient remains on broad-spectrum antibiotics. The patient is on a combination of aztreonam, vancomycin and Flagyl. The patient is on no pressors for now. She was running a low dose norepinephrine infusion which was discontinued yesterday. She is still on Nepro for enteral feeding and nutritional support which she is able to tolerate without any major difficulties. Her last session of hemodialysis was yesterday and that was without any complications. She remains afebrile. Cultures are showing E. coli in the urine and staph epidermidis in the blood and the repeat cultures were essentially negative. On 10/23/2021 patient seen in follow-up in intensive care unit, yesterday she was successfully weaned and extubated from the mechanical ventilator, this morning she is on 13 L per high flow nasal cannula and her pulse ox is 92-93%, patient is breathing comfortably, she is still confused, however she is awake, she is following simple commands, her voice is very quiet , and she is trying to mouth words. Does not appear to be in any acute distress, lung sounds are diminished, with some fine basilar rales and diminished breath sounds over bi lateral bases. Patient is on a combination of Flagyl, Azactam and Vanc, micro reviewed, showed Ecoli in urine, staph epi in Blood cultures. Afebrile, vital signs stable, 0.9 at 20, Precedex has been discontinued, no vasopressor support, no difficulty breathing. No nausea or vomiting, abdomen soft Objective - Vital Signs Vital signs: Vital Signs Temp 97.6 F 10/23/21 08:00 Pulse 82 10/23/21 08:08 Resp 28 H 10/23/21 08:00 BP 85/56 10/23/21 08:00 Pulse Ox 100 10/23/21 07:00 Intake & Output 10/22/21 10/23/21 10/23/21 18:59 06:59 18:59 Intake Total 780.834 253.9 20 Output Total 0 0 0 Balance 780.834 253.9 20 Weight 78 kg Intake: IV 240 240 20 Sodium Chloride 0.9% 1, 240 240 20 000 ml @ 20 mls/hr IV . Q24H [facility] Rx#:[id number] Intake, IV Titration 175.834 13.9 Amount Dexmedetomidine/0.9% NaCl 75.834 13.9 (Pmx) 400 mcg In Empty Bag 1 bag @ 0.2 MCG/KG/HR 4 mls/hr IV .Q24H [facility] Rx #:[id number] metroNIDAZOLE-NS PMX 500 100 mg In Saline 1 100ml.bag @ 100 mls/hr IVPB Q8HR@ 0400,1200,2000 [facility] Rx#: [id number] Tube Feeding 245 Other 120 Output: Urine 0 0 0 Other: Voiding Method Incontinent Incontinent # Bowel Movements 1 - Exam GENERAL EXAM: 51-year-old female patient, slow to respond, but comfortable on 13 l/min with a pulse ox of 92 HEAD: Normocephalic. EYES: Normal reaction of pupils, equal size. NOSE: Clear with pink turbinates. THROAT: Endotracheal and orogastric tube secured in place. No erythema or exudates. NECK: No masses, no JVD. CHEST: No chest wall deformity. LUNGS: Equal air entry with diminished breathsounds at the bases, and fine rales CVS: S1 and S2 normal with no audible murmur, regular rhythm. ABDOMEN: No hepatosplenomegaly, normal bowel sounds, no guarding or rigidity. SPINE: No scoliosis or deformity SKIN: No rashes CENTRAL NERVOUS SYSTEM: Not following simple commands off sedation, tone is normal in all 4 extremities. EXTREMITIES: There is no peripheral edema. No clubbing, no cyanosis. Peripheral pulses are intact. - Labs CBC & Chem 7: 10/23/21 03:41 10/23/21 03:41 Labs: Abnormal Lab Results - Last 24 Hours (Table) 10/22/21 10/22/21 10/22/21 Range/Units 11:32 18:30 23:46 WBC (3.8-10.6) k/uL RBC (3.80-5.40) m/uL Hgb (11.4-16.0) gm/dL Hct (34.0-46.0) % RDW (11.5-15.5) % Neutrophils # (1.3-7.7) k/uL Lymphocytes # (1.0-4.8) k/uL Sodium (137-145) mmol/L Potassium (3.5-5.1) mmol/L Carbon Dioxide (22-30) mmol/L BUN (7-17) mg/dL Creatinine (0.52-1.04) mg/dL Glucose (74-99) mg/dL POC Glucose (mg/dL) 172 H 151 H 172 H (75-99) mg/dL Total Bilirubin (0.2-1.3) mg/dL AST (14-36) U/L ALT (4-34) U/L Alkaline Phosphatase (38-126) U/L 10/23/21 10/23/21 Range/Units 03:41 03:41 WBC 12.2 H (3.8-10.6) k/uL RBC 3.02 L (3.80-5.40) m/uL Hgb 8.7 L (11.4-16.0) gm/dL Hct 24.9 L (34.0-46.0) % RDW 16.7 H (11.5-15.5) % Neutrophils # 10.5 H (1.3-7.7) k/uL Lymphocytes # 0.8 L (1.0-4.8) k/uL Sodium 136 L (137-145) mmol/L Potassium 6.0 H (3.5-5.1) mmol/L Carbon Dioxide 16 L (22-30) mmol/L BUN 53 H (7-17) mg/dL Creatinine 4.96 H (0.52-1.04) mg/dL Glucose 105 H (74-99) mg/dL POC Glucose (mg/dL) (75-99) mg/dL Total Bilirubin 2.6 H (0.2-1.3) mg/dL AST 196 H (14-36) U/L ALT 199 H (4-34) U/L Alkaline Phosphatase 174 H (38-126) U/L Microbiology - Last 24 Hours (Table) 10/19/21 16:39 Blood Culture - Preliminary Blood No Growth after 72 hours Assessment and Plan Plan: Assessment: #1. Acute cardiopulmonary arrest requiring intubation mechanical ventilatory support on 10/18/2021. The patient was found to be in PEA cardiac arrest, and she required epinephrine times one, 1 round of CPR with return of spontaneous circulation with continued agonal respirations. During daily interruption of sedation the patient has been slow to respond. Not following any simple commands. No good eye contact. Weak ventilatory effort. Consider possibility of underlying hypoxic encephalopathy post cardiac arrest. The exact downtime is not known and it's possible that the patient a prolonged downtime. CAT scan of the brain will be also needed to for altered mentation post cardiac arrest. #2. Acute hypoxemic respiratory failure secondary to above, chest x-ray showing cardiomegaly and malvin pleural effusions, small, patient weaned and extubated on 10/22/2021 #3. Acute shock liver , stable LFTs, patient has massive ascites, improving #4. End-stage renal disease on hemodialysis Thursday #5.History of coronary disease with previous coronary bypass grafting, previous stent placement #6. Depression being followed by psychiatric services this admission and had been refusing medications and treatment #7. COPD, severity at baseline not known to us #8. Chronic and ongoing tobacco dependence #9. History of abdominal aortic aneurysm , 4.8 cm followed up by vascular s elizabet #10. History of factor V deficiency , maintained on on outpatient basis #12. Hyperlipidemia #13. Hypertension #14. History of cirrhosis, with secondary ascites #15. Peripheral vascular disease #16. History of bipolar disease #14. Urinary tract infection and dairy to E. coli #15. history of irritable bowel syndrome/gastroparesis with secondary abdominal pain #16. history of chronic diastolic heart failure with severe pulmonary hypertension based on echocardiogram that was done in October #17. lumbar radiculopathy #18. chronic claudication plan: Extubated yesterday and tolerating extubation well so far Maintain aspiration precautions Neurologically patient is confused, but followed simple command DC precedex continue antibiotics Hemodialysis is scheduled for today Swallow eval, sips of clear liquids Advance diet as tolerated with ST recommendations Continue monitoring in the ICU Time with Patient: Greater than 30
[2021-10-23] MEDS ORDERED: SODIUM BICARB 8.4% 50 ML SYR (1 MEQ/ML) ONE ×3 (10:57→11:59)
[2021-10-23] MEDS ORDERED: EPINEPHrine 10 ML SYRINGE (0.1 MG/ML) ONE (11:00)
[2021-10-23 11:04] LABS: Glucose,Whole Blood 82 mg/dL (75-99)
[2021-10-23] MEDS ORDERED: NOREPINEPHRIN 4 MG-0.9% NS PMX 4 MG/250 ML ML IV ONE (11:37)
--- NOTE | 2021-10-23 11:46 | XR ---
EXAMINATION TYPE: XR chest 1V DATE OF EXAM: 10/23/2021 COMPARISON: 10/23/2021 HISTORY: SOB, Follow Up FINDINGS: Endotracheal tube is appropriately placed with the its distal tip 3 cm from the prakash. NG tube is se en coursing into the stomach. The central venous lines are unchanged. Diffuse airspace infiltrates are noted throughout both lung tavera with significant interval progress ion identified. Stable appearance of the cardio-mediastinal structures at this time. Pleural effusion unchanged. IMPRESSION: 1. Diffuse airspace infiltrates are noted throughout both lung tavera with significant interval prog ression identified. Clinical correlation and follow up until resolution is recommended.
--- NOTE | 2021-10-23 11:51 | XR ---
EXAMINATION TYPE: XR abdomen 1V DATE OF EXAM: 10/23/2021 COMPARISON: 10/16/2021 HISTORY: Pain TECHNIQUE: Single supine KUB image of the abdomen is obtained FINDINGS: Gastric distention noted. NG tube is identified. Distention of the urinary bladder. No convincing bridget dence for pneumoperitoneum. No unusual calcifications. The lung bases are clear. The osseous structures are intact. IMPRESSION: 1. Gastric distention noted. NG tube is identified. Distention of the urinary bladder.
[2021-10-23 12:01] LABS: ABG Base Excess -11.3 mmol/L; ABG HCO3 18 mmol/L (21-25); ABG Oxygen Saturation 78.7 % (94-97); ABG PCO2 56 mmHg (35-45); ABG TCO2 20 mmol/L (19-24)
[2021-10-23] MEDS ORDERED: CISATRACURIUM 2 MG/ML 5 ML VIAL IV ONE (12:02)
[2021-10-23 12:03] LABS: ABG PH 7.12 (7.35-7.45); ABG PO2 57 mmHg (83-108); Allen Test Performed? no
[2021-10-23 12:07] LABS: Albumin 3.1 g/dL (3.5-5.0); Calcium 9.7 mg/dL (8.4-10.2); Total Bilirubin 1.7 mg/dL (0.2-1.3); Total Protein 6.5 g/dL (6.3-8.2)
[2021-10-23] MEDS ORDERED: CISATRACURIUM 200 MG in SODIUM CHLORIDE 0.9% 180 ML IV SCH (12:30)
--- NOTE | 2021-10-23 12:40 | P.PN ---
Progress Note - Text Progress Note Date: 10/23/21 ADELA BROUSSARD was called on the patient around 11 AM for asystole cardiac arrest. When I arrived at the room CPR was already initiated. Per nurse patient went bradycardic and hypotensive prior to going asystole. Also labs from this morning showed potassium of 6.0. Patient was scheduled to get dialysis. Patient was also given epinephrine. After multiple rounds of epinephrine and bicarb and also calcium gluconate patient did achieve ROSC. She was then an SVT and appeared to also have peaked T waves. Patient was given 5 units of IV regular insulin followed by amp of D50. Patient was then in normal sinus rhythm. During code patient was also having blood come out of her mouth. Routine labs and chest x-ray was ordered. At 1145 another ADELA BROUSSARD was called. Patient again was in asystole cardiac arrest. After one-time dose of epinephrine and calcium gluconate and 1 and bicarb ROSC was achieved. Chest x-ray showed bilateral worsening consolidations. Findings were discussed with cfd engineer was present in the room. There's also contacted family. Awaiting for her daughter to call back. Patient's prognosis remains guarded. Greater than 20 minutes of [id number] critical care time was spent with the patient.
[2021-10-23 12:51] LABS: INR 1.5 (<1.2)
[2021-10-23 12:52] LABS: Partial Thromboplastin Time 29.5 sec (22.0-30.0)
[2021-10-23 13:25] LABS: ABG Base Excess -2.6 mmol/L; ABG HCO3 24 mmol/L (21-25); ABG Oxygen Saturation 82.3 % (94-97); ABG PCO2 45 mmHg (35-45); ABG PH 7.32 (7.35-7.45); ABG TCO2 25 mmol/L (19-24)
[2021-10-23 13:27] LABS: ABG PO2 50 mmHg (83-108); Allen Test Performed? no
[2021-10-23] MEDS: EPINEPHrine 4 MG in DEXTROSE 5% IN WATER 250 ML IV SCH ×10 (15:03→22:00)
--- NOTE | 2021-10-23 15:23 | PN ---
PROGRESS NOTE ADDENDUM: Patient coded this morning. She has been treated for hyperkalemia. The patient was not dialyzed yet. During the code she did get IV treatment and the patient will be dialyzed as soon as possible once her blood pressure stabilizes. She will be going down for a CT scan as well. JAS / ELSYN: [id number] /
--- NOTE | 2021-10-23 15:23 | PN ---
PROGRESS NOTE Patient is seen for followup for end-stage renal disease. The patient was seen this morning. She was extubated yesterday. She has been confused and the patient will be dialyzed today. Blood pressure has been around 105-103 mmHg systolic. Heart rate around 82 per minute. EXAMINATION: This morning, bilateral breath sounds are heard. The patient is confused. Heart sounds are heard. Examination lower extremities shows no significant edema. Abdomen is soft, nontender. LAB: Show sodium 136, potassium 6.0, chloride 104, CO2 16, BUN 53, creatinine 4.9, hemoglobin 8.7 g/dL. ASSESSMENT: 1. End-stage renal disease on hemodialysis on a Thursday, Thursday, Thursday schedule. Patient is scheduled for hemodialysis today. 2. Hyperkalemia, expect improvement with dialysis today. 3. Metabolic acidosis. Will adjust the bicarb bath on hemodialysis. No gross diarrhea noted at this time. 4. Acute hypoxic respiratory failure status post extubation. 5. History of cardiac arrest previously. No evidence of [place]. 6. History of diastolic heart failure with severe pulmonary hypertension. PLAN: Hemodialysis today and adjust the bicarb bath on the machine for dialysis. MMODL / IJN: [id number] /
[2021-10-23 15:28] LABS: ABG Base Excess -3.9 mmol/L; ABG HCO3 23 mmol/L (21-25); ABG Oxygen Saturation 86.2 % (94-97); ABG PCO2 51 mmHg (35-45); ABG PH 7.26 (7.35-7.45); ABG PO2 60 mmHg (83-108); ABG TCO2 25 mmol/L (19-24)
[2021-10-23 15:30] LABS: Allen Test Performed? no
--- NOTE | 2021-10-23 16:24 | PN ---
PROGRESS NOTE DATE OF SERVICE: 10/23/2021 REASON FOR FOLLOWUP: UTI, possible aspiration pneumonia and bacteremia. INTERVAL HISTORY: The patient did have multiple cardiac arrests today, ended up getting intubated, currently intubated on the vent. The patient is hemodynamically stable, not on any pressor support. She is undergoing dialysis. No other changes reported by the nursing staff. PHYSICAL EXAMINATION: Her blood pressure is 143/79 with a pulse of 103, temperature 97.8. She is % on 100% FiO2. General description is a middle-aged female intubated on the vent. Respiratory system: Unlabored breathing, decreased intensity of breath sounds. No wheeze. Heart S1, S2. Regular rate and rhythm. Abdomen soft, no tenderness. LABS: BUN 59, creatinine 5.60. Urine with E coli. Sputum is so far negative. Blood culture repeat has been negative. DIAGNOSTIC IMPRESSION AND PLAN: Patient with acute respiratory failure which is multifactorial in this patient who had multiple cardiac arrests with a question of aspiration pneumonia and UTI as well as bacteremia, for which the patient is currently broadly covered with Azactam, Flagyl and vancomycin. That will be continued. Overall prognosis remains guarded. Continue supportive care. MMODL / IJN: [id number] /
--- NOTE | 2021-10-23 18:24 | P.PCN ---
Date of Procedure: 10/23/21 Preoperative Diagnosis: Cardiac arrest Postoperative Diagnosis: Cardiac arrest Procedure(s) Performed: arterial line Anesthesia: local Surgeon: Velia Sharp Estimated Blood Loss (ml): 0 Condition: critical Disposition: ICU Operative Findings: Indication: Hemodynamic monitoring. A time-out was completed verifying correct patient, procedure, site, positioning, and implant(s) or special equipment if applicable. Allens test was performed to ensure adequate perfusion. The patients right groin was prepped and draped in sterile fashion. 1% Lidocaine was used to anesthetize the area. An 18G Arrow arterial line was introduced into the femoral artery. The catheter was threaded over the guide wire and the needle was removed with appropriate pulsatile blood return. Blood loss was minimal. The catheter was then sutured in place to the skin and a sterile dressing applied. Perfusion to the extremity distal to the point of catheter insertion was checked and found to be adequate. The patient tolerated the procedure well and there were no complications.
--- NOTE | 2021-10-23 19:52 | P.PN ---
Subjective Progress Note Date: 10/23/21 This is a 51-year-old female patient with a known history of end-stage renal disease receiving hemodialysis Thursday. Has has history of coronary artery disease with previous stent placement and coronary artery bypass grafting, abdominal aortic aneurysm measuring 4.2 cm, factor V deficiency, CVA/TIA, DVT T, diabetes mellitus, hyperlipidemia, hypertension. She had moved here approximate 6 weeks ago from [place]. No primary care provider. She presented to the hospital back on 10/13/2021 with complaints of abdominal discomfort and nausea and vomiting. She had missed some dialysis prior. She has been undergoing workup regarding her symptoms. At 145 this morning of CODE BOBO was called on the patient she was found to be in a cardiac arrest after being found not breathing and she received CPR for approximately 1 minute. She is intubated and transferred to the intensive care unit. He is seen today in consultation. She is currently intubated on mechanical ventilator at assist control mode at a rate of 18, positive on 400, FiO2 50% and a PEEP of 5. Initial blood gases revealed a PaO2 of 330, pCO2 35 and a pH of 7.25 and that was on 100% FiO2. She is sedated on propofol at 30 mcg/mg/m. She is on norepinephrine at 11 mcg/m. 0.9 normal saline at 75 mL per hour. She is receiving hemodialysis currently. White count 20.8. Hemoglobin 10.0. Platelets 148. Sodium 136. Potassium 5.8. Bicarbonate 13. BUN 61. Creatinine 7.68. Glucose 305. AST 1393. ALT 511. Alk phos 237. Troponins 3.2. Pro-calcitonin 21.2. Up from 0.18 Urine culture positive for E. coli. Sputum culture pending. Chest x-ray reveals patchy retrocardiac atelectasis/infiltrate, stable. She is on antibiotics in the form of Levaquin. Bronchodilators. Heparin for DVT prophylaxis. On 10/19/2021 The patient remains on mechanical ventilator. She was intubated yesterday. She is on the volume assist control mode, rate 18, tidal volume 400, FiO2 50%, and a PEEP of 5. Arterial blood gases show pO2 121, pCO2 43, and a pH is 7.34. The FiO2 was reduced to 40%. The patient's on propofol at 35 mcg/kg/m, norepinephrine at 4 mcg/m, saline at 20 mL an hour, and Nepro at 31 mL an hour, which is goal. We will attempt a daily interruption of sedation today, with a spontaneous breathing trial with pressure support of 5, and CPAP of 5. Yesterday, we attempted a R line, both in the right radial site, and right femoral artery site, and was unsuccessful at both sites. White count 14.8, h emoglobin 9.6, hematocrit 27.4, and platelet count is 172,000. Sodium 135, potassium 4, chlorides 102, CO2 21, anion gap 12, BUN 40, creatinine 4.94. Urine culture is positive for Escherichia coli. Blood cultures positive for staph epidermidis. Chest x-ray today, is unchanged, and shows mild car diomegaly, and stable left basilar consolidation. The patient is currently on aztreonam and Flagyl. This is a progress note on the patient, Sharon Singh in ICU in room 264. Today on 10/23/2021 shortly after patient was seen initially this morning when she was doing well, although on high flow oxygen at 13 L, patient suffered acute cardiopulmonary arrest, became very hypoxic, went into PEA, was emergently intubated, placed on mechanical ventilator required CPR, ACLS, with return of spontaneous circulation. Following intubation and return of spontaneous circulation chest x-ray was taken showing diffuse airspace infiltrates throughout both lung tavera with significant interval progression likely related to acute pulmonary edema. Blood gas after initial intubation showed pO2 of 57, pCO2 of 56, and pH of 7.12. Patient was given multiple rounds of epinephrine and bicarbonate and calcium gluconate. He was also given regular insulin with 50% dextrose. Patient underwent hemodialysis. However she was tolerating dialysis poorly, and went on to suffer several more episodes of cardiac arrest requiring ACLS, CPR, no defibrillation, and multiple rounds of epinephrine, bicarbonate, calcium chloride. Currently she is on assist-control mode of ventilation with a rate of 32, tidal volume is 400, FiO2 100% and PEEP of 18. She is on multiple vasopressors including epinephrine at 0.5 mics per kilo per minute, norepinephrine at 0.45 mics per kilo per minute, and Nimbex is a 2 mics per kilo per minute, 0.9 normal saline at a rate of 20 ML per hour, central line access and arterial line were emergently inserted. Return of spontaneous circulation was achieved. Although patient is still requiring high concentration of oxygen, and increased PEEP. She remains in sinus mechanism, she is on minimal sedation, however she is unresponsive, she is on Diprivan only at 10 mics per kilo per minute. She is anuric. No fluid was removed with hemodialysis related to extreme hemodynamic instability and multiple cardiopulmonary arrests through the day. Repeat labs this afternoon showed sodium of 141, potassium of 5.0, chloride of 104, CO2 is 13, BUN of 59, creatinine is 5.6, troponin was 0.651, AST is 177, ALT is 162, alkaline phosphatase is 221. Most recent blood gas shows pO2 of 60, pCO2 of 51, and pH of 7.26. This was done on FiO2 100%. Patient remains on antibiotics in the form of Azactam, Flagyl, and vancomycin. Blood cultures on 1119 showed a staph epidermidis, and urine cultures were showed E. coli. Most recent follow- up blood cultures and sputum cultures have shown no growth. Patient's daughter has been contacted and is currently on the way here from out of state and is supposed to be arriving at [facility] sometime tonight and coming to see the patient. Patient condition remains critical, after multiple episodes of cardiopulmonary arrest today, there is a concern for anoxic brain injury Objective - Vital Signs Vital signs: Vital Signs Temp 97.8 F 10/23/21 12:00 Pulse 118 H 10/23/21 18:00 Resp 9 L 10/23/21 18:00 BP 149/79 10/23/21 18:00 Pulse Ox 80 L 10/23/21 18:00 Intake & Output 10/23/21 10/23/21 10/24/21 06:59 18:59 06:59 Intake Total 253.9 1060.917 Output Total 0 800 Balance 253.9 260.917 Weight 78 kg Intake: IV 240 220 Sodium Chloride 0.9% 1, 240 220 000 ml @ 20 mls/hr IV . Q24H [facility] Rx#:[id number] Intake, IV Titration 13.9 840.917 Amount Aztreonam 1 gm In Sodium 50 Chloride 0.9% 50 ml @ 16. 67 mls/hr IVPB Q12H [facility] Rx#:[id number] Dexmedetomidine/0.9% NaCl 13.9 (Pmx) 400 mcg In Empty Bag 1 bag @ 0.2 MCG/KG/HR 4 mls/hr IV .Q24H [facility] Rx #:[id number] EPINEPHrine 4 mg In 184.86 Dextrose 5% in Water 250 ml @ 0.01 MCG/KG/MIN 2. 925 mls/hr IV .Q24H [facility] Rx#:[id number] Norepinephrine 4 mg In 506.057 Sodium Chloride 0.9% 250 ml @ 0.05 MCG/KG/MIN 14. 69 mls/hr IV .[id number] [facility] Rx#:[id number] metroNIDAZOLE-NS PMX 500 100 mg In Saline 1 100ml.bag @ 100 mls/hr IVPB Q8HR@ 0400,1200,2000 [facility] Rx#: [id number] Output: Gastric Drainage 800 Urine 0 0 Hemodialysis 0 Other: Voiding Method Incontinent Incontinent # Bowel Movements 1 1 ABP, PAP, CO, CI - Last Documented Arterial Blood Pressure 101/52 - Exam GENERAL EXAM: 51-year-old female patient, intubated, paralyzed, and sedated on assist control mode of ventilation with FiO2 100% and PEEP of 18. Patient is on 10 mics of Diprivan, patient is status post multiple cardiopulmonary arrest tod ay. HEAD: Normocephalic. EYES: Normal reaction of pupils, equal size. NOSE: Clear with pink turbinates. THROAT: Endotracheal and orogastric tube secured in place. No erythema or exudates. NECK: No masses, no JVD. CHEST: No chest wall deformity. LUNGS: Equal air entry with diminished breathsounds at the bases, and fine rales CVS: S1 and S2 normal with no audible murmur, regular rhythm. ABDOMEN: No hepatosplenomegaly, normal bowel sounds, no guarding or rigidity. SPINE: No scoliosis or deformity SKIN: No rashes CENTRAL NERVOUS SYSTEM: Sedated, and paralyzed on assist control mode of ventilation EXTREMITIES: There is no peripheral edema. No clubbing, no cyanosis. Peripheral pulses are intact. - Labs CBC & Chem 7: 10/23/21 03:41 10/23/21 11:31 Labs: Abnormal Lab Results - Last 24 Hours (Table) 10/22/21 10/23/21 10/23/21 Range/Units 23:46 03:41 03:41 WBC 12.2 H (3.8-10.6) k/uL RBC 3.02 L (3.80-5.40) m/uL Hgb 8.7 L (11.4-16.0) gm/dL Hct 24.9 L (34.0-46.0) % RDW 16.7 H (11.5-15.5) % Neutrophils # 10.5 H (1.3-7.7) k/uL Lymphocytes # 0.8 L (1.0-4.8) k/uL PT (9.0-12.0) sec INR (<1.2) ABG pH (7.35-7.45) ABG pCO2 (35-45) mmHg ABG pO2 (83-108) mmHg ABG HCO3 (21-25) mmol/L ABG Total CO2 (19-24) mmol/L ABG O2 Saturation (94-97) % Sodium 136 L (137-145) mmol/L Potassium 6.0 H (3.5-5.1) mmol/L Carbon Dioxide 16 L (22-30) mmol/L BUN 53 H (7-17) mg/dL Creatinine 4.96 H (0.52-1.04) mg/dL Glucose 105 H (74-99) mg/dL POC Glucose (mg/dL) 172 H (75-99) mg/dL Total Bilirubin 2.6 H (0.2-1.3) mg/dL AST 196 H (14-36) U/L ALT 199 H (4-34) U/L Alkaline Phosphatase 174 H (38-126) U/L Troponin I (0.000-0.034) ng/mL Albumin (3.5-5.0) g/dL 10/23/21 10/23/21 10/23/21 Range/Units 11:31 11:31 11:31 WBC (3.8-10.6) k/uL RBC (3.80-5.40) m/uL Hgb (11.4-16.0) gm/dL Hct (34.0-46.0) % RDW (11.5-15.5) % Neutrophils # (1.3-7.7) k/uL Lymphocytes # (1.0-4.8) k/uL PT 15.0 H (9.0-12.0) sec INR 1.5 H (<1.2) ABG pH (7.35-7.45) ABG pCO2 (35-45) mmHg ABG pO2 (83-108) mmHg ABG HCO3 (21-25) mmol/L ABG Total CO2 (19-24) mmol/L ABG O2 Saturation (94-97) % Sodium (137-145) mmol/L Potassium (3.5-5.1) mmol/L Carbon Dioxide 13 L (22-30) mmol/L BUN 59 H (7-17) mg/dL Creatinine 5.60 H (0.52-1.04) mg/dL Glucose 115 H (74-99) mg/dL POC Glucose (mg/dL) (75-99) mg/dL Total Bilirubin 1.7 H (0.2-1.3) mg/dL AST 177 H (14-36) U/L ALT 162 H (4-34) U/L Alkaline Phosphatase 221 H (38-126) U/L Troponin I 0.651 H* (0.000-0.034) ng/mL Albumin 3.1 L (3.5-5.0) g/dL 10/23/21 10/23/21 10/23/21 Range/Units 11:59 13:20 15:26 WBC (3.8-10.6) k/uL RBC (3.80-5.40) m/uL Hgb (11.4-16.0) gm/dL Hct (34.0-46.0) % RDW (11.5-15.5) % Neutrophils # (1.3-7.7) k/uL Lymphocytes # (1.0-4.8) k/uL PT (9.0-12.0) sec INR (<1.2) ABG pH 7.12 L* 7.32 L 7.26 L (7.35-7.45) ABG pCO2 56 H 51 H (35-45) mmHg ABG pO2 57 L* 50 L* 60 L (83-108) mmHg ABG HCO3 18 L (21-25) mmol/L ABG Total CO2 25 H 25 H (19-24) mmol/L ABG O2 Saturation 78.7 L 82.3 L 86.2 L (94-97) % Sodium (137-145) mmol/L Potassium (3.5-5.1) mmol/L Carbon Dioxide (22-30) mmol/L BUN (7-17) mg/dL Creatinine (0.52-1.04) mg/dL Glucose (74-99) mg/dL POC Glucose (mg/dL) (75-99) mg/dL Total Bilirubin (0.2-1.3) mg/dL AST (14-36) U/L ALT (4-34) U/L Alkaline Phosphatase (38-126) U/L Troponin I (0.000-0.034) ng/mL Albumin (3.5-5.0) g/dL Microbiology - Last 24 Hours (Table) 10/19/21 16:39 Blood Culture - Preliminary Blood No Growth after 72 hours Assessment and Plan Plan: Assessment: #1. Multiple episodes of acute cardiopulmonary arrest, recurrent, on 10/23/2021, requiring CPR, multiple rounds of epinephrine, bicarbonate, calcium gluconate with return of spontaneous circulation, this was related to acute pulmonary edema. Patient was reintubated emergently on 10/23/2021 and at this time remains intubated, sedated and paralyzed on assist-control mode of ventilation with FiO2 100%, and PEEP of 15 #2. Rule out possibility of severe anoxic brain injury related to the multiple episodes of cardiopulmonary arrest, we'll consider CT of the brain when more stable for travel to the CT department #3. Acute pulmonary edema, with acute hypoxic and hypercapnic respiratory failure, requiring reintubation and placement on mechanical ventilator #4. Acute cardiopulmonary arrest requiring intubation mechanical ventilatory support on 10/18/2021. The patient was found to be in PEA cardiac arrest, and she required epinephrine times one, 1 round of CPR with return of spontaneous circulation with continued agonal respirations. During daily interruption of sedation the patient has been slow to respond. Not following any simple commands. No good eye contact. Weak ventilatory effort. Consider possibility of underlying hypoxic encephalopathy post cardiac arrest. The exact downtime is not known and it's possible that the patient a prolonged downtime. CAT scan of the brain will be also needed to for altered mentation post cardiac arrest. #5. Acute hypoxemic respiratory failure secondary to above, chest x-ray showing cardiomegaly and malvin pleural effusions, small, patient weaned and extubated on 10/22/2021 #6. Acute shock liver , stable LFTs, patient has massive ascites, improving #7. End-stage renal disease on hemodialysis Thursday #8.History of coronary disease with previous coronary bypass grafting, previous stent placement #9. Depression being followed by psychiatric services this admission and had been refusing medications and treatment #10. COPD, severity at baseline not known to us #11. Chronic and ongoing tobacco dependence #12. History of abdominal aortic aneurysm , 4.8 cm followed up by vascular surgery #13. History of factor V deficiency , maintained on on outpatient basis #14. Hyperlipidemia #15. Hypertension #16. History of cirrhosis, with secondary ascites #17. Peripheral vascular disease #18. History of bipolar disease #19. Urinary tract infection and dairy to E. coli #20. history of irritable bowel syndrome/gastroparesis with secondary abdominal pain #21. history of chronic diastolic heart failure with severe pulmonary hypertension based on echocardiogram that was done in October #22. lumbar radiculopathy #123. chronic claudication plan: Patient's condition remains very critical She has suffered multiple episodes of cardiopulmonary arrest today She remains intubated, sedated and paralyzed on assist-control mode of ventilation with a high concentration oxygen and high PEEP Could not tolerate dialysis and no fluid was removed Blood gas and chest x-rays have been reviewed Continue with same ventilator settings tonight She is on multiple pressors Her condition remains very critical Patient's daughter is expected to arrive from out of state sometime tonight Patient's prognosis s extremely poor and guarded DO NOT RESUSCITATE CODE STATUS should be considered by the family when they arrive at the bedside We'll continue with supportive measurements right now We'll make further recommendations based on her clinical progression I performed a history & physical examination of the patient and discussed their management with my nurse practitioner, Savanna Carvalho. I reviewed the nurse practitioner's note and agree with the documented findings and plan of care. Lung sounds are positive for diminished breath sounds throughout the lung tavera. The findings and the impression was discussed with the patient. I attest to the documentation by the nurse practitioner. Time with Patient: Greater than 30
[2021-10-23] MEDS ORDERED: EPINEPHrine 16 MG in DEXTROSE 5% IN WATER 250 ML IV SCH ×2 (22:00)
[2021-10-23] MEDS ORDERED: NOREPINEPHRINE 32 MG in SODIUM CHLORIDE 0.9% 218 ML IV SCH (22:15)
--- NOTE | 2021-10-23 23:31 | PN ---
PROGRESS NOTE This 51-year-old -[place] female had worsening respiratory distress. Chest x- ray shows bilateral infiltrates. She had hyperkalemia of 6. She had acute cardiorespiratory arrest. She was reintubated at this time, followed by search engine optimization specialist in ICU. She missed dialysis today. Vital signs reviewed. Parts Room Associate notes reviewed. Cardiovascular S1-S2. Lungs with scattered rhonchi and wheeze. GI is distended. She has a history of cirrhosis. Questionable fluid wave. Extremities have 2 to 3+ edema. ASSESSMENT: 1. End-stage renal disease. 2. Congestive heart failure. 3. Cirrhosis. 4. Hyperkalemia. 5. Multiple medical comorbidities. Prognosis is extremely guarded. She is now reintubated. She is on broad-spectrum antibiotics. Dialysis will be done. Vasopressor support. Prognosis guarded. MMODL / IJN: [id number] /
[2021-10-24 00:15] VITALS: BP 113/94; PULSE 146; RESP 17; TEMP 98.8
--- NOTE | 2021-10-24 00:37 | P.EN ---
CODE BLUE note Activated at 2253. Arrived in the scene shortly after. We are discharging discussed the case with RN. The patient has reportedly had multiple cardiac arrests throughout the day today and was noted to be in IVR and pulseless. ACLS protocol was immediately initiated with high quality CPR performed. Patient was given IV push epinephrine x1, sodium bicarbonate 1, and calcium chloride 1. Subsequent ROSC was obtained at 2302 with Afib with RVR. The primary team was notified by the RN. Please refer to the code sheet for further details.
--- NOTE | 2021-11-07 13:37 | CDI ---
Documentation Clarification Form Date: 11/07/2021 01:29:44 PM From: Hyacinth Nesbitt RN, CCDS Email: [email or web address] Admit Date: 10/14/2021 01:53:00 AM Patient Name: Sharon Singh Visit Number: [id number] Discharge Date: 10/23/2021 11:48:00 PM ATTENTION: The Clinical Documentation Specialists (CDI) and [facility] Coding Staff appreciate your assistance in clarifying documentation. Please respond to the clarification below the line at the bottom and electronically sign. The CDI & [facility] Coding staff will review the response and follow-up if needed. Please note: Queries are made part of the Legal Health Record. If you have any questions, please contact the author of this message via ITS. Dr. Pavel Velasquez The patients principal diagnosis the diagnosis that was chiefly responsible for the admission - has not been clearly identified and clarification is requested. The patient presented with the following: abdominal pain, nausea, vomiting, diarrhea and ascites. History/Risk factors: 10/14 H&P: "Asthma, Heart Failure, COPD, CVA/TIA, Diabetes Mellitus, Deep Vein Thrombosis on Eliquis, GERD, GI Bleed, Hyperlipidemia, Hypertension, Pt recently admitted to [facility] on 08/01/20 with ascities/ESRD/cirrhosis/elevated liver enzymes/cholestatic liver/chronic pruritis/acute on chronic anemia/IBS/gastroparesis." Clinical Indicators: H&P: possible acute gastroenteritis, End stage renal disease on hemodialysis. Decompensated cirrhosis with ascites. Enlarging abdominal aortic aneurysm 4.8 cm, increased from 4.2 cm. 10/15 IM: Patient today complains of similar abdominal pain but less severe, she states it 6-6.5/10 in severity. However she feels very hungry and she was adamant to get regular diet. She does not want to advance it gradually but directly go to regular diet. She has generalized abdominal tenderness, his urine analysis is positive for gram-negative bacilli with final results pending and she is currently covered with Levaquin. Paracentesis is ordered but patient is on Plavix and Eliquis which are held. possible acute gastroenteritis. Acute urinary tract infection with gram-negative bacilli. Rule out SBP. 10/18 progress note: possible acute gastroenteritis. Acute urinary tract infection with gram negative bacilli. Rule out SBP. Lab findings: 10/13 UCX: ecoli Radiology findings: 10/13 ABD/pelvis: There is massive abdominal ascites fluid. There is improvement in the subcutaneous edema around the abdomen compared to old exam. Ascites fluid is increased compared to old exam. Lower abdominal aortic aneurysm increased more than 1 cm compared to old exam. Cardiomegaly. Atherosclerotic vascular disease. 10/14 Abd U/S: IMPRESSION: Persistent scattered [id number] amount of intra-abdominal ascites appreciated more prominent on CT versus ultrasound. Re-demonstration of known hepatomegaly. Treatment: IV Ceftriaxone 2gm 10/15, Pepcid po 10/14-10/15, Questran po 10/14- 10/23, IV Levaquin 500mg 10/15-10/18, Reglan po 10/13, Zofran prn In your professional opinion, can you please clarify which diagnosis, after study, was the reason chiefly responsible for the admission? [ ] Acute gastroenteritis [ ] Acute UTI d/t ecoli [ ] Spontaneous bacterial peritonitis [ ] Other, please specify [ ] Unable to determine (Template Last Revised: January 2021) MTDD
== END 2021-10-23 23:48 | disposition expired | DRG 391 ==
LOC: EC 19:10 → OBSVTOIN 10-14 01:53 → 6NMEDSUR 10-14 01:53 → 2SICU 10-18 02:55
PROVIDERS: ADMIT Family Medicine; ATTEND Family Medicine
PROC: 5A1D70Z Performance of Urinary Filtration, Intermittent, Less than 6 Hours Per Day (ICD-10-PCS; 2021-10-13)
PROC: 5A1955Z Respiratory Ventilation, Greater than 96 Consecutive Hours (ICD-10-PCS; principal; 2021-10-18)
PROC: 0BH17EZ Insertion of Endotracheal Airway into Trachea, Via Natural or Artificial Opening (ICD-10-PCS; principal; 2021-10-18)
PROC: 02H633Z Insertion of Infusion Device into Right Atrium, Percutaneous Approach (ICD-10-PCS; 2021-10-18)
PROC: 0D9670Z Drainage of Stomach with Drainage Device, Via Natural or Artificial Opening (ICD-10-PCS; 2021-10-18)
PROC: 3E033XZ Introduction of Vasopressor into Peripheral Vein, Percutaneous Approach (ICD-10-PCS; 2021-10-18)
PROC: 04HY32Z Insertion of Monitoring Device into Lower Artery, Percutaneous Approach (ICD-10-PCS; 2021-10-18)
PROC: 4A133B1 Monitoring of Arterial Pressure, Peripheral, Percutaneous Approach (ICD-10-PCS; 2021-10-18)
PROC: 3E0G76Z Introduction of Nutritional Substance into Upper GI, Via Natural or Artificial Opening (ICD-10-PCS; 2021-10-18)
PROC: 4A133J1 Monitoring of Arterial Pulse, Peripheral, Percutaneous Approach (ICD-10-PCS; 2021-10-18)
PROC: 5A12012 Performance of Cardiac Output, Single, Manual (ICD-10-PCS; 2021-10-18)
PROC: 5A12012 Performance of Cardiac Output, Single, Manual (ICD-10-PCS; 2021-10-23)
PROC: 5A12012 Performance of Cardiac Output, Single, Manual (ICD-10-PCS; 2021-10-23)
DX: K52.9 Noninfective gastroenteritis and colitis, unspecified (principal); K72.00 Acute and subacute hepatic failure without coma; R65.21 Severe sepsis with septic shock; J96.01 Acute respiratory failure with hypoxia; J96.02 Acute respiratory failure with hypercapnia; J69.0 Pneumonitis due to inhalation of food and vomit; A41.9 Sepsis, unspecified organism; K65.2 Spontaneous bacterial peritonitis; G93.41 Metabolic encephalopathy; N18.6 End stage renal disease; J44.1 Chronic obstructive pulmonary disease with (acute) exacerbation; D68.2 Hereditary deficiency of other clotting factors; I13.2 Hypertensive heart and chronic kidney disease with heart failure and with stage 5 chronic kidney disease, or end stage renal disease; I47.2 Ventricular tachycardia; G93.1 Anoxic brain damage, not elsewhere classified; R18.8 Other ascites; E87.2 Acidosis; I82.C22 Chronic embolism and thrombosis of left internal jugular vein; I47.1 Supraventricular tachycardia; K22.10 Ulcer of esophagus without bleeding; I50.32 Chronic diastolic (congestive) heart failure; N39.0 Urinary tract infection, site not specified; J98.11 Atelectasis; I46.9 Cardiac arrest, cause unspecified; Z66 Do not resuscitate; Z20.822 Contact with and (suspected) exposure to COVID-19; E11.649 Type 2 diabetes mellitus with hypoglycemia without coma; I27.22 Pulmonary hypertension due to left heart disease; E83.9 Disorder of mineral metabolism, unspecified; D63.1 Anemia in chronic kidney disease; E11.22 Type 2 diabetes mellitus with diabetic chronic kidney disease; E11.51 Type 2 diabetes mellitus with diabetic peripheral angiopathy without gangrene; K74.60 Unspecified cirrhosis of liver; E11.43 Type 2 diabetes mellitus with diabetic autonomic (poly)neuropathy; E11.65 Type 2 diabetes mellitus with hyperglycemia; I73.9 Peripheral vascular disease, unspecified; I71.4 Abdominal aortic aneurysm, without rupture; Z99.2 Dependence on renal dialysis; K76.1 Chronic passive congestion of liver; E87.5 Hyperkalemia; I07.1 Rheumatic tricuspid insufficiency; K31.84 Gastroparesis; K58.0 Irritable bowel syndrome with diarrhea; K21.00 Gastro-esophageal reflux disease with esophagitis, without bleeding; B96.20 Unspecified Escherichia coli [E. coli] as the cause of diseases classified elsewhere; F41.1 Generalized anxiety disorder; F32.9 Major depressive disorder, single episode, unspecified; G89.29 Other chronic pain; M54.16 Radiculopathy, lumbar region; E78.5 Hyperlipidemia, unspecified; I25.10 Atherosclerotic heart disease of native coronary artery without angina pectoris; I45.10 Unspecified right bundle-branch block; L29.9 Pruritus, unspecified; R32 Unspecified urinary incontinence; I25.2 Old myocardial infarction; F17.210 Nicotine dependence, cigarettes, uncomplicated; Z71.6 Tobacco abuse counseling; Z91.19 Patient's noncompliance with other medical treatment and regimen; Z86.73 Personal history of transient ischemic attack (TIA), and cerebral infarction without residual deficits; Z86.718 Personal history of other venous thrombosis and embolism; Z87.19 Personal history of other diseases of the digestive system; Z87.01 Personal history of pneumonia (recurrent); Z86.19 Personal history of other infectious and parasitic diseases; Z87.39 Personal history of other diseases of the musculoskeletal system and connective tissue; Z90.49 Acquired absence of other specified parts of digestive tract; Z98.51 Tubal ligation status; Z95.1 Presence of aortocoronary bypass graft; Z95.5 Presence of coronary angioplasty implant and graft; Z95.828 Presence of other vascular implants and grafts; Z87.828 Personal history of other (healed) physical injury and trauma; Z98.890 Other specified postprocedural states; Z88.2 Allergy status to sulfonamides; Z88.8 Allergy status to other drugs, medicaments and biological substances; Z88.1 Allergy status to other antibiotic agents; Z91.040 Latex allergy status; Z82.5 Family history of asthma and other chronic lower respiratory diseases; Z82.49 Family history of ischemic heart disease and other diseases of the circulatory system; Z80.9 Family history of malignant neoplasm, unspecified; Z83.2 Family history of diseases of the blood and blood-forming organs and certain disorders involving the immune mechanism
CPT/HCPCS: 36415; 36600; 70450; 71045; 74018; 74176; 76700; 76705; 80048; 80053; 80076; 80202; 81001; 82140; 82150; 82805; 83605; 83690; 83735; 84100; 84145; 84484; 85025; 85027; 85610; 85730; 87040; 87070; 87077; 87086; 87186; 87205; 87635; 90935; 93005; 93306; 94002; 94003; 94640; 96374; 96375; 99285